=== PATIENT | male | born 1985 | race Caucasian/White ===

== ENCOUNTER 2017-01-09 12:35 | Inpatient (IN) | payer BC ==
[~2017-01-09] VITALS: Ht 180.3 cm; Wt 132.5 kg
--- NOTE | 2017-01-09 14:46 | ERA ---
ER Documentation Chief Complaint Date/Time DATE: 01/09/17 TIME: 14:46 Chief Complaint Abdominal pain HPI The patient is a 31-year-old male, presenting to the ER because of cough, abdominal pain, vomiting, diarrhea, fever intermittently for the last 2 weeks. Temperature at home was 103 prior to arrival. He denies hematemesis, hematochezia, complains of dysuria for 1 week, denies diarrhea, constipation. 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 Medications Home Meds Reported Medications Prednisone* (Prednisone*) 2.5 Mg Tablet, 2.5 MG PO DAILY, TAB 01/09/17 Metoprolol Succinate* (Toprol XL*) 50 Mg Tab.er.24h, 50 MG PO DAILY, #30 TAB 01/09/17 Metoprolol Succinate* (Toprol XL*) 25 Mg Tab.sr.24h, 25 MG PO QHS, #30 TAB 01/09/17 Sulfamethoxazole/Trimethoprim* (Bactrim Ds* Tablet) 1 Each Tablet, 1 TAB PO DAILY, TAB 01/09/17 Acyclovir* (Acyclovir*) 400 Mg Tablet, 400 MG PO BID, TAB 01/09/17 Hydrocodone/Acetaminophen ([place] 10-325 Tablet) 1 Each Tablet, 1 EACH PO Q6H, TAB 01/09/17 Allergies Allergies: Coded Allergies: No Known Allergy (Unverified , 01/09/17) Physical Exam Vitals Vital Signs Date Time Temp Pulse Resp B/P Pulse Ox O2 Delivery O2 Flow Rate FiO2 01/09/17 19:50 100 126/71 98 Room Air 01/09/17 18:04 108 20 118/67 98 Nasal Cannula 2.0 01/09/17 17:00 112 20 129/78 98 Nasal Cannula 2.0 01/09/17 15:50 Nasal Cannula 2 01/09/17 12:38 97.6 121 22 133/82 94 Physical Exam Const: No acute distress. Head: Atraumatic. Eyes: Normal Conjunctiva. ENT: Normal External Ears, Nose and Mouth. Neck: Full range of motion. No meningismus. Resp: Clear to auscultation bilaterally. Cardio: Regular tachycardic Abd: Soft, non distended, normal bowel sounds, moderate and vague diffuse abdominal tenderness, no rigidity, rebound, CVA tenderness Skin: No petechiae or rashes. Back: No midline or flank tenderness. Large wound at the left buttock Ext: No cyanosis, or edema. Neur: Awake and alert. No focal deficit Psych: Normal Mood and Affect. Result Diagram: 01/09/17 1515 01/09/17 1515 Results 24 hrs Laboratory Tests Test 01/09/17 15:15 01/09/17 17:20 01/09/17 17:48 01/09/17 19:30 White Blood Count 4.110^3/ul Red Blood Count 5.1210^6/ul Hemoglobin 14.6g/dl Hematocrit 42.4% Mean Corpuscular Volume 82.8fl Mean Corpuscular Hemoglobin 28.5pg Mean Corpuscular Hemoglobin Concent 34.4g/dl Red Cell Distribution Width 15.8% Platelet Count 71955^3/UL Mean Platelet Volume 11.2fl Neutrophils % 82.3% Lymphocytes % 2.2% Monocytes % 13.3% Eosinophils % 0.5% Basophils % 0.2% Nucleated Red Blood Cells % 0.0/100WBC Neutrophils # 3.310^3/ul Lymphocytes # 0.110^3/ul Monocytes # 0.510^3/ul Eosinophils # 0.010^3/ul Basophils # 0.010^3/ul Nucleated Red Blood Cells # 0.010^3/ul Prothrombin Time 19.4Sec Prothrombin Time Ratio 1.5 INR International Normalized Ratio 1.62 Activated Partial Thromboplast Time 45.6Sec Sodium Level 124mmol/L Potassium Level 3.1mmol/L Chloride Level 81mmol/L Carbon Dioxide Level 26mmol/L Anion Gap 20 Blood Urea Nitrogen 24mg/dl Creatinine 1.26mg/dl Glucose Level 105mg/dl Lactic Acid Level 4.6mmol/L 3.6mmol/L 2.8mmol/L Calcium Level 8.0mg/dl Total Bilirubin 1.1mg/dl Direct Bilirubin 0.00mg/dl Indirect Bilirubin 1.1mg/dl Aspartate Amino Transf (AST/SGOT) 92IU/L Alanine Aminotransferase (ALT/SGPT) 39IU/L Alkaline Phosphatase 191IU/L Troponin I < 0.012ng/ml Total Protein 6.5g/dl Albumin 3.1g/dl Globulin 3.40g/dl Albumin/Globulin Ratio 0.91 Urine Color OMAR Urine Clarity SLIGHTLY CLOUDY Urine pH 5.0 Urine Specific [place] 1.024 Urine Ketones TRACEmg/dL Urine Nitrite NEGATIVEmg/dL Urine Bilirubin NEGATIVEmg/dL Urine Urobilinogen 1+mg/dL Urine Leukocyte Esterase NEGATIVELeu/ul Urine Microscopic RBC 1/HPF Urine Microscopic WBC 8/HPF Urine Squamous Epithelial Cells FEW/HPF Urine Mucus FEW/HPF Urine Hemoglobin NEGATIVEmg/dL Urine Glucose NEGATIVEmg/dL Urine Total Protein 1+mg/dl Current Medications Medications (Trade) Dose Ordered Sig/Kayden Route PRN Reason Start Time Stop Time Status Last Admin Dose Admin Sodium Chloride (NS) 3,940 ml BOLUS OVER 2 HOURS STAT IV* 01/09/17 14:55 01/09/17 14:58 DC 01/09/17 15:26 Morphine Sulfate (morphine) 4 mg ONCE STAT IV 01/09/17 14:55 01/09/17 14:58 DC 01/09/17 15:32 Ondansetron HCl 4 mg 4 mg ONCE STAT IV 01/09/17 14:55 01/09/17 14:58 DC 01/09/17 15:32 Vancomycin HCl 250 ml @ 125 mls/hr ONCE IVPB 01/09/17 17:00 01/09/17 18:59 DC 01/09/17 16:55 Piperacillin Sod/ Tazobactam Sod 50 ml @ 100 mls/hr ONCE ONCE IVPB 01/09/17 17:00 01/09/17 17:29 DC 01/09/17 18:50 Potassium Chloride/Sodium Chloride (KCl/NS) 110 ml @ 55 mls/hr ONCE ONCE IVPB 01/09/17 17:00 01/09/17 18:59 DC 01/09/17 19:55 Lidocaine (Xylocaine 1% (Mpf)) 5 ml ONCE ONCE SC 01/09/17 17:00 01/09/17 17:01 DC Ondansetron HCl (Zofran Inj) 4 mg ONCE STAT IV 01/09/17 17:01 01/09/17 17:02 DC 01/09/17 17:15 Hydromorphone HCl (Dilaudid) 1 mg ONCE STAT IV 01/09/17 17:01 01/09/17 17:02 DC 01/09/17 17:15 IV Flush (NS 3 ml) 3 ml PER PROTOCOL IV 01/09/17 19:30 Ondansetron HCl (Zofran Inj) 4 mg Q6H PRN IV NAUSEA AND/OR VOMITING 01/09/17 19:30 Acetaminophen (Tylenol Tab) 650 mg Q6H PRN PO PAIN LEVEL 1-3 OR FEVER 01/09/17 19:30 Acetaminophen/ Hydrocodone Bitart ([place] (5/325)) 1 tab Q6H PRN PO MODERATE PAIN LEVEL 4-6 01/09/17 19:30 Morphine Sulfate (morphine) 2 mg Q4H PRN IV SEVERE PAIN LEVEL 7-10 01/09/17 19:30 01/09/17 19:54 Docusate Sodium (Colace) 100 mg Q12H PRN PO CONSTIPATION 01/09/17 19:30 Magnesium Hydroxide (Milk Of Mag) 30 ml DAILY PRN PO CONSTIPATION 01/09/17 19:30 Sodium Biphosphate/ Sodium Phosphate (Fleet Enema) 133 ml DAILY PRN [place] CONSTIPATION 01/09/17 19:30 Pantoprazole (Protonix Tab) 40 mg DAILY@06 PO 01/10/17 06:00 Heparin Sodium (Porcine) (Heparin (5000 Units/0.5 ml)) 5,000 unit Q12 SC 01/09/17 21:00 Lorazepam 0.5 mg 0.5 mg Q6H PRN IV ANXIETY 01/09/17 19:30 Sodium Chloride (NS) 1,000 ml @ 100 mls/hr Q10H IV 01/09/17 19:18 Albuterol/ Ipratropium 3 ml 3 ml Q4H RESP THERAPY PRN HHN SHORTNESS OF BREATH 01/09/17 19:30 Piperacillin Sod/ Tazobactam Sod (Zosyn 3.375gm/ 100 ml (Pmx)) 100 ml @ 200 mls/hr Q6 IVPB 01/10/17 00:00 Vancomycin HCl (Vanco Iv Per Pharmacy) VANCOMYCIN PER PHARMACY NOTE XX 01/09/17 19:30 UNV Nitroglycerin (Nitroglycerin (Sl Tab) 0.4 Mg) 1 tab Q5M PRN SL ANGINA 01/09/17 19:30 Acyclovir (Zovirax) 400 mg BID PO 01/09/17 21:00 UNV Metoprolol Succinate (Toprol Xl) 25 mg QHS PO 01/09/17 21:00 Prednisone (Prednisone) 2.5 mg DAILY PO 01/10/17 09:00 UNV Trimethoprim/ Sulfamethoxazole (Bactrim (Ds)) 1 tab DAILY PO 01/10/17 09:00 Procedures/MDM [place] [address] Radiology Main Line: [phone] DIAGNOSTIC IMAGING REPORT Patient: SONYA SHAH : 1985 Age: 31 Sex: M MR #: [id number] DOS: 01/09/17 1455 Ordering MD: SANDY KAMINSKI MD Location: E/R Room/Bed: PROCEDURE: XR Chest. CLINICAL INDICATION: Dizziness. TECHNIQUE: Single frontal chest x-ray. COMPARISON: None. FINDINGS: There are patchy opacities or consolidations in the right lung. There is elevation of the right hemidiaphragm. . The left lung is clear.. Cardiac silhouette is magnified.. The osseous structures are intact. IMPRESSION: Patchy opacities or consolidations of the right lung. Elevated right hemidiaphragm.. RPTAT: GG .Rudolph Asif MD, MD Date Time Electronically viewed and signed by .Rudolph Asif MD, MD on 01/09/2017 16:23 .L/ CC: SANDY KAMINSKI MD [place] [address] Radiology Main Line: [phone] DIAGNOSTIC IMAGING REPORT Patient: SONYA SHAH : 1985 Age: 31 Sex: M MR #: [id number] DOS: 01/09/17 1642 Ordering MD: SANDY KAMINSKI MD Location: E/R Room/Bed: PROCEDURE: CT abdomen and pelvis without intravenous contrast. CLINICAL INDICATION: Abdominal pain. TECHNIQUE: CT of the abdomen/pelvis was performed utilizing axial images with reconstructions in sagittal and coronal planes. The administered radiation dose is CTDI 23.67 mGy, DLP 1464.32 mGy-cm. COMPARISON: There are no similar studies submitted for comparison. FINDINGS: Lung bases: There are multiple small consolidations within the right lower lobe. Underlying nodules are not excluded. The heart is normal size without pericardial effusion. CT ABDOMEN: Evaluation of the abdominal viscera is limited without intravenous contrast. Gastrointestinal tract: There is no bowel obstruction. The appendix is not visualized but there are no right lower quadrant, toward changes. There are mild colonic diverticula without acute diverticulitis. No abnormal colonic wall thickening is identified.There is no pneumoperitoneum. Liver: The liver is normal in size.There is no intrahepatic ductal dilatation. Gallbladder: The gallbladder is grossly unremarkable. Pancreas: The pancreas is grossly unremarkable. Spleen: The spleen is normal in size. Kidneys: The kidneys are normal in size and contour.No renal calculi identified.There is no evidence of hydronephrosis. Adrenal glands: The bilateral adrenal glands are unremarkable. Retroperitoneum: There is no retroperitoneal adenopathy.The aorta is normal in caliber. CT PELVIS: Pelvic organs: The prostate is normal in size. Bladder: The bladder is unremarkable. There is no pelvic free fluid.No pelvic adenopathy is identified. There are small bilateral fat containing inguinal hernias. Osseous structures: No destructive lytic or blastic osseous lesion is identified. There is mild retrolisthesis of 5 S1. There is a subcutaneous density within the anterior bowel wall which may represent a subcutaneous hematoma (image 9 series 3). There are also more extensive subcutaneous densities along the left hip flank soft tissues as well as the back subcutaneous soft tissues / skin. There is also an erosion of 1 of these lesions within the left anterior abdominal wall (image 27 series 3). . IMPRESSION: Evaluation of the abdominal viscera is limited without intravenous contrast. 1. No acute abdominal pathology. 2. Multiple small consolidations within the right lower lobe. Underlying nodules are not excluded. Dedicated CT of the chest as well as follow-up imaging is recommended to document resolution as clinically warranted. 3. Subcutaneous density within the anterior abdominal wall which may represent a subcutaneous hematoma versus other subcutaneous lesion. There are also more extensive subcutaneous densities along the left flank and back subcutaneous/ skin. Direct inspection may be performed as clinically warranted. Further findings as detailed above. RPTAT: PP .Krishna Hodgson MD, Date Time Electronically viewed and signed by .Krishna Hodgson MD, MD on 01/09/2017 18:11 .F/ CC: SANDY KAMINSKI MD EKG: Read by emergency physician Rate/Rhythm: Sinus tachycardia 113 beats/min QRS, ST, T-waves: No ST elevation, no T inversion Impression: Abnormal EKG MEDICAL MAKING DECISION: The patient is a 31-year-old male, presenting with acute septic shock, acute pneumonia, acute hypokalemia, acute hyponatremia. He was treated with normal saline 30 mL/kg IV, vancomycin IV, Zosyn IV for acute septic shock, potassium chloride 20 mg IV for acute hypokalemia, morphine 4 mg IV and Dilaudid 1 mg IV for pain and Zofran formula IV 2 for nausea with good response Admit MDM: Patient's infectious symptoms have not stabilized and the patient is at risk of rapid decompensation. The patient will be admitted for careful hydration, antibiotic therapy, and infectious source control. Severe Sepsis criteria: Infectious source: Pneumonia End organ damage indicated by: Lactate > 2.0 mmol/L Hypotension (SBP < 90 or >40 mmHG drop or MAP < 65) Acute Resp Failure (sat < 92% w/o oxygen) Professional Services Specialist > 2.0 Sepsis Management: Time of recognition of severe sepsis/septic shock:16:00 Within 3 hours of recognition: Blood cultures x 2 before broad-spectrum antibiotics: Yes 30 ml/kg NS bolus completed Initial lactate 4.6 Repeat lactate pending Critical Care: Critical care time 35 minutes excluding billable procedure Emergent fluid management while maintaining close respiratory support. Provision of immediate and broad-spectrum antibiotic therapy. Simultaneous assessment for possible sources in order to direct targeted therapy. Consideration for invasive and chemical support to prevent cardiopulmonary collapse. Septic Shock Assessment: Any lactic acid > 4.0 no Persistent hypotension (SBP < 90 or 40 mmHg drop, MAP < 65) despite 30 mL/kg IV fluid bolusno The differential diagnoses considered include but are not limited to pneumonia, empyema, UTI, pyelonephritis, lymphoma, infected decubitus ulcer Departure Diagnosis: Primary Impression: Septic shock Additional Impressions: Pneumonia Hypokalemia Hyponatremia Leukopenia Abnormal LFTs Condition: Stable Comments Consultation: I discussed the patient with the on-call physician Dr Romo for her IPA 6:20 PM who authorized the admission I discussed the findings with the patient. I discussed the patient with the on- call hospitalist Dr. Ocasio at 7 PM who was made aware of the lab, the treatment, the patient condition. The patient is admitted to telemetry SANDY KAMINSKI MD Jan 09, 2017 14:46
[2017-01-09] MEDS ORDERED: SODIUM CHLORIDE 0.9% 1L BAG IV* STA (14:55)
[2017-01-09] MEDS ORDERED: morphine 4 MG/ML VIAL IV STA (14:55)
[2017-01-09] MEDS ORDERED: ONDANSETRON 4 MG INJ IV STA ×2 (14:55→17:01)
[2017-01-09] MEDS ORDERED: HYDR-902 PO (15:20)
[2017-01-09] MEDS ORDERED: ACYC400T2 PO (15:22)
[2017-01-09] MEDS ORDERED: SULF1TAB31 PO (15:24)
[2017-01-09] MEDS ORDERED: METO50TA16 PO (15:25)
[2017-01-09] MEDS ORDERED: METO25TA7 PO (15:25)
[2017-01-09] MEDS ORDERED: PRED2.5T3 PO (15:50)
[2017-01-09 16:06] LABS: ABNORMAL IP MESSAGE 1; BASOPHILS % 0.2 % (0.0-2.0); EOSINOPHILS % 0.5 % (0.0-7.0); HEMATOCRIT 42.4 % (42.0-52.0); HEMOGLOBIN 14.6 g/dl (14.0-18.0); LYMPHOCYTES # 0.1 10^3/ul (0.8-2.9); LYMPHOCYTES % 2.2 % (15.0-51.0); MEAN CORPUSCULAR HEMOGLOBIN 28.5 pg (29.0-33.0); MEAN CORPUSCULAR HGB CONC 34.4 g/dl (32.0-37.0); MEAN CORPUSCULAR VOLUME 82.8 fl (82.0-101.0); MEAN PLATELET VOLUME 11.2 fl (7.4-10.4); MONOCYTE # 0.5 10^3/ul (0.3-0.9); MONOCYTES % 13.3 % (0.0-11.0); NEUTROPHIL # 3.3 10^3/ul (1.6-7.5); NEUTROPHILS % 82.3 % (39.0-77.0); PLATELET COUNT 155 10^3/UL (140-415); POSITIVE DIFF @See below; RED BLOOD COUNT 5.12 10^6/ul (4.70-6.10); RED CELL DISTRIBUTION WIDTH 15.8 % (11.5-14.5); WHITE BLOOD COUNT 4.1 10^3/ul (4.8-10.8)
[2017-01-09 16:23] LABS: INR 1.62; PROTIME 19.4 Sec (12.2-14.2); PT RATIO 1.5
--- NOTE | 2017-01-09 16:24 | RADRPT ---
PROCEDURE: XR Chest. CLINICAL INDICATION: Dizziness. TECHNIQUE: Single frontal chest x-ray. COMPARISON: None. FINDINGS: There are patchy opacities or consolidations in the right lung. There is elevation of the right hem idiaphragm. . The left lung is clear.. Cardiac silhouette is magnified.. The osseous structures ar e intact. IMPRESSION: Patchy opacities or consolidations of the right lung. Elevated right hemidiaphragm.. RPTAT: GG .Rudolph Asif MD, Date Time Electronically viewed and signed by .Rudolph Asif MD, MD on 01/09/2017 16:23 .L/
[2017-01-09 16:25] LABS: PARTIAL THROMBOPLASTIN TIME 45.6 Sec (25.0-35.0)
[2017-01-09 16:29] LABS: ALANINE AMINOTRANSFERASE 39 IU/L (13-69); ALBUMIN 3.1 g/dl (3.3-4.9); ALBUMIN/GLOBULIN RATIO 0.91; ALKALINE PHOSPHATASE 191 IU/L (42-121); ANION GAP 20 (8-16); ASPARTATE AMINO TRANSFERASE 92 IU/L (15-46); BILIRUBIN,INDIRECT 1.1 mg/dl (0-1.1); BILIRUBIN,TOTAL 1.1 mg/dl (0.2-1.3); BLOOD UREA NITROGEN 24 mg/dl (7-20); CARBON DIOXIDE 26 mmol/L (21-31); CHLORIDE 81 mmol/L (97-110); CREATININE 1.26 mg/dl (0.61-1.24); GLUCOSE 105 mg/dl (70-220); POTASSIUM 3.1 mmol/L (3.5-5.1); SODIUM 124 mmol/L (135-144); TOTAL PROTEIN 6.5 g/dl (6.1-8.1)
[2017-01-09 16:42] LABS: TROPONIN-I < 0.012 ng/ml (0.00-0.12)
[2017-01-09] MEDS ORDERED: VANCOMYCIN 1 GM (PMX) 250 ML IVPB SCH (17:00)
[2017-01-09] MEDS ORDERED: PIPER-TAZO 2.25 GM (PMX) 50 ML IVPB ONE (17:00)
[2017-01-09] MEDS ORDERED: POTASSIUM CHLORIDE 20 MEQ in SOD CHLORIDE 0.9% 100 ML IVPB ONE (17:00)
[2017-01-09] MEDS ORDERED: LIDOCAINE 1% (MPF) 5 ML VIAL SC ONE (17:00)
[2017-01-09] MEDS ORDERED: HYDROmorphONE 1 MG/ML SYG IV STA (17:01)
--- NOTE | 2017-01-09 18:11 | RADRPT ---
PROCEDURE: CT abdomen and pelvis without intravenous contrast. CLINICAL INDICATION: Abdominal pain. TECHNIQUE: CT of the abdomen/pelvis was performed utilizing axial images with reconstructions in s agittal and coronal planes. The administered radiation dose is CTDI 23.67 mGy, DLP 1464.32 mGy-cm. COMPARISON: There are no similar studies submitted for comparison. FINDINGS: Lung bases: There are multiple small consolidations within the right lower lobe. Underlying nodules are not excluded. The heart is normal size without pericardial effusion. CT ABDOMEN: Evaluation of the abdominal viscera is limited without intravenous contrast. Gastrointestinal tract: There is no bowel obstruction. The appendix is not visualized but there are no right lower quadrant, toward changes. There are mild colonic diverticula without acute diverticu litis. No abnormal colonic wall thickening is identified.There is no pneumoperitoneum. Liver: The liver is normal in size.There is no intrahepatic ductal dilatation. Gallbladder: The gallbladder is grossly unremarkable. Pancreas: The pancreas is grossly unremarkable. Spleen: The spleen is normal in size. Kidneys: The kidneys are normal in size and contour.No renal calculi identified.There is no evidence of hydronephrosis. Adrenal glands: The bilateral adrenal glands are unremarkable. Retroperitoneum: There is no retroperitoneal adenopathy.The aorta is normal in caliber. CT PELVIS: Pelvic organs: The prostate is normal in size. Bladder: The bladder is unremarkable. There is no pelvic free fluid.No pelvic adenopathy is identified. There are small bilateral fat cont aining inguinal hernias. Osseous structures: No destructive lytic or blastic osseous lesion is identified. There is mild retr olisthesis of 5 S1. There is a subcutaneous density within the anterior bowel wall which may represent a subcutaneous he matoma (image 9 series 3). There are also more extensive subcutaneous densities along the left hip f lank soft tissues as well as the back subcutaneous soft tissues / skin. There is also an erosion of 1 of these lesions within the left anterior abdominal wall (image 27 series 3). . IMPRESSION: Evaluation of the abdominal viscera is limited without intravenous contrast. 1. No acute abdominal pathology. 2. Multiple small consolidations within the right lower lobe. Underlying nodules are not excluded. Dedicated CT of the chest as well as follow-up imaging is recommended to document resolution as cli nically warranted. 3. Subcutaneous density within the anterior abdominal wall which may represent a subcutaneous hemat zainab versus other subcutaneous lesion. There are also more extensive subcutaneous densities along th e left flank and back subcutaneous/skin. Direct inspection may be performed as clinically warranted . Further findings as detailed above. RPTAT: PP .Krishna Hodgson MD, Date Time Electronically viewed and signed by .Krishna Hodgson MD, on 01/09/2017 18:11 .F/
[2017-01-09 18:46] LABS: ADD UMIC YES; UR ASCORBIC ACID NEGATIVE (NEGATIVE); UR BILIRUBIN (Dip) NEGATIVE (NEGATIVE); UR BLOOD (Dip) NEGATIVE (NEGATIVE); UR CLARITY SLIGHTLY CLOUDY (CLEAR); UR COLOR AMBER (YELLOW); UR GLUCOSE (Dip) NEGATIVE (NEGATIVE); UR KETONES (Dip) TRACE mg/dL (NEGATIVE); UR LEUKOCYTE ESTERASE (Dip) NEGATIVE Leu/ul (NEGATIVE); UR MUCUS FEW /HPF (NONE SEEN); UR NITRITE (Dip) NEGATIVE (NEGATIVE); UR RBC 1 /HPF (0-5); UR SPECIFIC GRAVITY (Dip) 1.024 (1.003-1.030); UR SQUAMOUS EPITHELIAL CELL FEW /HPF (FEW); UR TOTAL PROTEIN (Dip) 1+ mg/dl (NEGATIVE); UR UROBILINOGEN (Dip) 1+ mg/dL (NEGATIVE)
[2017-01-09] MEDS ORDERED: VANCOMYCIN IV PER PHARMACY XX SCH (19:30)
[2017-01-09] MEDS ORDERED: NACL 0.9% 3 ML SYG IV SCH (19:30)
[2017-01-09] MEDS ORDERED: LORAZEPAM 2 MG INJ IV PRN (19:30)
[2017-01-09] MEDS ORDERED: HYDROCODONE/APAP (5/325) TAB PO PRN (19:30)
[2017-01-09] MEDS ORDERED: NITROGLYCERIN (SL) 0.4 MG TAB SL PRN (19:30)
[2017-01-09] MEDS ORDERED: NA PHOSPHATE/BIPHOS 133 ML ENEMA PR PRN (19:30)
[2017-01-09] MEDS: morphine 4 MG/ML VIAL IV PRN ×3 (19:54→23:47)
[2017-01-09] MEDS: ONDANSETRON 4 MG INJ IV PRN ×2 (21:54→23:45)
[2017-01-09 22:00] VITALS: TEMP 99.7
[2017-01-09 22:30] LABS: INR 1.87; PARTIAL THROMBOPLASTIN TIME 51.2 Sec (25.0-35.0); PROTIME 21.7 Sec (12.2-14.2); PT RATIO 1.7
[2017-01-09 23:10] VITALS: PULSE 120
[2017-01-09 23:30] VITALS: Ht 180.3 cm; Wt 132.5 kg
[2017-01-09] MEDS: ACETAMINOPHEN 325 MG TAB PO PRN (23:46)
[2017-01-10] VITALS (11 sets, daily range): BP systolic 110–144; BP diastolic 55–74; PULSE 106–124; RESP 16–20
[2017-01-10] MEDS: SOD CHLORIDE 0.9% 1,000 ML IV SCH ×2 (00:45→05:18)
[2017-01-10] MEDS: ACYCLOVIR 400 MG TAB PO SCH ×4 (00:46→21:00)
[2017-01-10] MEDS: METOPROLOL (XL) 25 MG TAB PO SCH ×2 (00:46→21:00)
[2017-01-10] MEDS: HEPARIN 5,000 UNIT/0.5 ML VIAL SC SCH ×3 (00:59→21:00)
[2017-01-10] MEDS: PIPER-TAZO 3.375 GM IV (PMX) 100 ML IVPB SCH ×4 (01:00→20:51)
[2017-01-10] MEDS: morphine 4 MG/ML VIAL IV PRN ×3 (02:02→11:03)
[2017-01-10] MEDS ORDERED: PENDING SANTYL ORDER FOR WOUND CARE XX PRN (03:30)
[2017-01-10] MEDS: METOCLOPRAMIDE 10 MG INJ IV PRN ×2 (04:10→11:02)
[2017-01-10] MEDS ORDERED: VANCOMYCIN 2 GM in SOD CHLORIDE 0.9% 500 ML IVPB SCH (05:00)
[2017-01-10] MEDS: PANTOPRAZOLE (EC) 40 MG TAB PO SCH (06:08)
[2017-01-10] MEDS: ACETAMINOPHEN 325 MG TAB PO PRN (06:12)
[2017-01-10 06:25] LABS: ABNORMAL IP MESSAGE 1; BASOPHILS % 0.4 % (0.0-2.0); HEMATOCRIT 31.5 % (42.0-52.0); HEMOGLOBIN 10.9 g/dl (14.0-18.0); LYMPHOCYTES # 0.1 10^3/ul (0.8-2.9); LYMPHOCYTES % 2.8 % (15.0-51.0); MEAN CORPUSCULAR HEMOGLOBIN 28.5 pg (29.0-33.0); MEAN CORPUSCULAR HGB CONC 34.6 g/dl (32.0-37.0); MEAN CORPUSCULAR VOLUME 82.2 fl (82.0-101.0); MEAN PLATELET VOLUME 11.1 fl (7.4-10.4); MONOCYTE # 0.4 10^3/ul (0.3-0.9); MONOCYTES % 14.5 % (0.0-11.0); NEUTROPHIL # 2.3 10^3/ul (1.6-7.5); NEUTROPHILS % 80.9 % (39.0-77.0); PLATELET COUNT 159 10^3/UL (140-415); POSITIVE DIFF @See below; RED BLOOD COUNT 3.83 10^6/ul (4.70-6.10); WHITE BLOOD COUNT 2.8 10^3/ul (4.8-10.8)
[2017-01-10 07:08] LABS: CHOL/HDL RATIO 5.2 RATIO; CHOLESTEROL 68 mg/dl (100-200); HDL CHOLESTEROL 13 mg/dl (28-63); TRIGLYCERIDES 313 mg/dl (0-149)
[2017-01-10 07:08] LABS: CREATININE 0.8 mg/dl (0.61-1.24); MAGNESIUM 1.9 mg/dl (1.7-2.5); PHOSPHORUS 1.9 mg/dl (2.5-4.9); POTASSIUM 3.2 mmol/L (3.5-5.1)
[2017-01-10] MEDS ORDERED: ONDANSETRON 4 MG INJ IV PRN ×2 (07:30)
[2017-01-10 07:33] LABS: THYROID STIMULATING HORMONE 0.674 MIU/L (0.465-4.680)
[2017-01-10] MEDS: HYDROmorphONE 1 MG/ML SYG IV PRN ×2 (08:05→12:47)
[2017-01-10] MEDS: predniSONE 2.5 MG TAB PO SCH ×2 (09:00→09:15)
--- NOTE | 2017-01-10 09:09 | HP ---
Date/Time of Note Date/Time of Note DATE: 01/10/17 TIME: 08:58 Assessment/Plan VTE Prophylaxis VTE Prophylaxis Intervention: SCD's Lines/Catheters IV Catheter Type (from Nrs): Peripheral IV Urinary Cath still in place: No Assessment/Plan Assessment/Plan 1. Sepsis 2/2 PNA - abx, IVF - f/u culture results 2. Abd Pain with N/V: 2/2 known lymphoma - pain mgmt - Anti-emetics - oncology consult 3. Hyponatremia and Hypokalemia: 2/2 vomiting - NS IVF - replete K+ as needed 4. Presumed RAMU: likely pre-renal 2/2 vomiting - cont IVF for now 5. 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 He said he was dx'd with lymphoma a year and half ago, but said unfortunately it turned into an aggressive type. His last chemo was a month ago and hadn't had since due to experiencing similar presenting symptoms. He has several nodules in different part of his body, which are necrosing, worse on his buttocks and to some extent on left forearm. Name of his Oncologist is Kain Wisdom. In ER, CXR showed Patchy opacities or consolidations of the right lung. CT abd/pelvis showed the followin. No acute abdominal pathology. 2. Multiple small consolidations within the right lower lobe. Underlying nodules are not excluded. Dedicated CT of the chest as well as follow-up imaging is recommended to document resolution as clinically warranted. 3. Subcutaneous density within the anterior abdominal wall which may represent a subcutaneous hematoma versus other subcutaneous lesion. There are also more extensive subcutaneous densities along the left flank and back subcutaneous/skin. Direct inspection may be performed as clinically warranted. PMH/Family/Social Past Medical History lymphoma Social History Smoking Status: Never smoker Exam/Review of Systems Vital Signs Vitals Vital Signs Date Time Temp Pulse Resp B/P Pulse Ox O2 Delivery O2 Flow Rate FiO2 01/10/17 07:34 99.7 109 20 132/65 98 01/10/17 03:17 28 01/10/17 03:15 2.0 01/09/17 23:30 Nasal Cannula Intake and Output 01/09/17 01/09/17 01/10/17 15:00 23:00 07:00 Output Total 500 ml Balance -500 ml Exam Constitutional: distress, other (vomiting) Head: atraumatic, normocephalic Eyes: PERRL Respiratory: diminished breath sounds Cardiovascular: other (tachycardic with regular rhythm) Gastrointestinal: soft, tender Extremities: normal pulses Skin: other (there are several nodules in different part of his body, some necrosing (worst on his buttocks) and also left forearm) Labs Result Diagram: 01/10/1760001/10/17 0601 Medications Medications Current Medications Acetaminophen (Tylenol Tab) 650 mg Q6H PRN PO PAIN LEVEL 1-3 OR FEVER Last administered on 01/10/17 06:12; Admin Dose 650 MG; Start 01/09/17 at 19:30 Acetaminophen/ Hydrocodone Bitart ([place] (5/325)) 1 tab Q6H PRN PO MODERATE PAIN LEVEL 4-6; Start 01/09/17 at 19:30 Morphine Sulfate (morphine) 2 mg Q4H PRN IV SEVERE PAIN LEVEL 7-10 Last administered on 01/10/17 04:23; Admin Dose 2 MG; Start 01/09/17 at 19:30 Docusate Sodium (Colace) 100 mg Q12H PRN PO CONSTIPATION; Start 01/09/17 at 19: 30 Magnesium Hydroxide (Milk Of Mag) 30 ml DAILY PRN PO CONSTIPATION; Start at 19:30 Sodium Biphosphate/ Sodium Phosphate (Fleet Enema) 133 ml DAILY PRN [place] CONSTIPATION; Start 01/09/17 at 19:30 Pantoprazole (Protonix Tab) 40 mg DAILY@06 PO Last administered on 01/10/17 06: 08; Admin Dose 40 MG; Start 01/10/17 at 06:00 Heparin Sodium (Porcine) (Heparin (5000 Units/0.5 ml)) 5,000 unit Q12 SC Last administered on 01/10/17 00:59; Admin Dose 5,000 UNIT; Start 01/09/17 at 21:00 Lorazepam 0.5 mg 0.5 mg Q6H PRN IV ANXIETY; Start 01/09/17 at 19:30 Sodium Chloride 1,000 ml @ 100 mls/hr Q10H IV Last administered on 01/10/17 00 :45; Admin Dose 100 MLS/HR; Start 01/09/17 at 19:18 Piperacillin Sod/ Tazobactam Sod (Zosyn 3.375gm/ 100 ml (Pmx)) 100 ml @ 200 mls /hr Q6 IVPB Last administered on 01/10/17 06:08; Admin Dose 200 MLS/HR; Start 01/10/17 at 00:00 Vancomycin HCl (Vanco Iv Per Pharmacy) VANCOMYCIN PER PHARMACY NOTE XX ; Start 01/09/17 at 19:30 Nitroglycerin (Nitroglycerin (Sl Tab) 0.4 Mg) 1 tab Q5M PRN SL ANGINA; Start at 19:30 Acyclovir (Zovirax) 400 mg BID PO ; Start 01/09/17 at 21:00 Metoprolol Succinate (Toprol Xl) 25 mg QHS PO ; Start 01/09/17 at 21:00 Prednisone (Prednisone) 2.5 mg DAILY PO ; Start 01/10/17 at 09:00 Trimethoprim/ Sulfamethoxazole (Bactrim (Ds)) 1 tab DAILY PO ; Start 01/10/17 at 09:00 Morphine Sulfate 4 mg 4 mg Q3H PRN IV PAIN LEVEL 8-10 Last administered on 02:02; Admin Dose 4 MG; Start 01/09/17 at 22:00 Vancomycin HCl/ Sodium Chloride (Vancocin/NS) 500 ml @ 125 mls/hr Q24H IVPB Last administered on 01/10/17 04:10; Admin Dose 125 MLS/HR; Start 01/10/17 at 05: 00 Miscellaneous Information (Pending Santyl Order For Wound Care) This patient aranda... PRN PRN XX WOUND CARE; Start 01/10/17 at 03:30 Metoclopramide HCl (Reglan) 10 mg Q6H PRN IV NAUSEA AND/OR VOMITING Last administered on 01/10/17 04:10; Admin Dose 10 MG; Start 01/10/17 at 04:30 Ondansetron HCl (Zofran Inj) 4 mg Q6H PRN IV NAUSEA AND/OR VOMITING; Start 01/10 at 07:30 Hydromorphone HCl (Dilaudid) 1 mg Q4H PRN IV PAIN Last administered on t 08:05; Admin Dose 1 MG; Start 01/10/17 at 08:00 SONYA CANALES MD Jan 10, 2017 09:08
[2017-01-10] MEDS: TRIMETHOPRIM/SULFAMETHOX (DS) TAB PO SCH (09:15)
[2017-01-10] MEDS ORDERED: POTASSIUM CHLORIDE 30 MEQ in SOD CHLORIDE 0.9% 150 ML IVPB ONE (10:15)
--- NOTE | 2017-01-10 10:48 | CONS ---
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 His last chemo was a month ago and hadn't had since due to experiencing similar presenting symptoms. i will request the record from pt's oncologist Kain Wisdom and I w ill try to get in touch with him re details of pt's treatment LEUKOPENIA IN PT WITH HNL ON CHEMO AND WITH SEPTIC PICTURE MONITOR BLOOD COUNT CLOSELY SUPPORT WITH NEUPOGEN Sepsis 2/2 PNA - abx, IVF - f/u culture results - ID Abd Pain with N/V: 2/2 known lymphoma - pain mgmt - Anti-emetics Hyponatremia and Hypokalemia: 2/2 vomiting - NS IVF - replete K+ as needed Presumed RAMU: likely pre-renal 2/2 vomiting - cont IVF for now Problems: Consultation Date/Type/Reason Admit Date/Time Jan 09, 2017 at 19:08 Date of Consultation: Jan 10, 2017 Type of Consultation: HEMEON Reason for Consultation NHL Referring Provider: YAO RAHMAN Hx of Present Illness The patient is a 31-year-old male, presenting to the ER because of cough, abdominal pain, vomiting, diarrhea, fever intermittently for the last 2 weeks. Temperature at home was 103 prior to arrival. He denies hematemesis, hematochezia, complains of dysuria for 1 week, denies diarrhea, constipation. He denies smoking or drinking PT HAS a hx of Anaplastic Large B-cell lymphoma, he was dx'd with lymphoma a year and half ago, but said unfortunately it turned into an aggressive type. His last chemo was a month ago and hadn't had since due to experiencing similar presenting symptoms. He has several nodules in different part of his body, which are necrosing, worse on his buttocks and to some extent on left forearm. Name of his Oncologist is Kain Wisdom. In ER, CXR showed Patchy opacities or consolidations of the right lung. CT abd/pelvis showed the followin. No acute abdominal pathology. 2. Multiple small consolidations within the right lower lobe. Underlying nodules are not excluded. Dedicated CT of the chest as well as follow-up imaging is recommended to document resolution as clinically warranted. 3. Subcutaneous density within the anterior abdominal wall which may represent a subcutaneous hematoma versus other subcutaneous lesion. There are also more extensive subcutaneous densities along the left flank and back subcutaneous/skin. Direct inspection may be performed as clinically warranted. 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 Medications Home Meds Reported Medications Prednisone* (Prednisone*) 2.5 Mg Tablet, 2.5 MG PO DAILY, TAB 01/09/17 Metoprolol Succinate* (Toprol XL*) 50 Mg Tab.er.24h, 50 MG PO DAILY, #30 TAB 01/09/17 Metoprolol Succinate* (Toprol XL*) 25 Mg Tab.sr.24h, 25 MG PO QHS, #30 TAB 01/09/17 Sulfamethoxazole/Trimethoprim* (Bactrim Ds* Tablet) 1 Each Tablet, 1 TAB PO DAILY, TAB 01/09/17 Acyclovir* (Acyclovir*) 400 Mg Tablet, 400 MG PO BID, TAB 01/09/17 Hydrocodone/Acetaminophen ([place] 10-325 Tablet) 1 Each Tablet, 1 EACH PO Q6H, TAB 01/09/17 Allergies Allergies: Coded Allergies: No Known Allergy (Unverified , 01/09/17) Social History Smoking Status: Never smoker Exam/Review of Systems Vital Signs Vitals Vital Signs Date Time Temp Pulse Resp B/P Pulse Ox O2 Delivery O2 Flow Rate FiO2 01/10/17 08:00 106 01/10/17 07:34 99.7 20 132/65 98 01/10/17 07:00 2.0 01/10/17 07:00 Nasal Cannula 01/10/17 03:17 28 Intake and Output 01/09/17 01/09/17 01/10/17 15:00 23:00 07:00 Output Total 500 ml Balance -500 ml Exam Constitutional: distress, other (vomiting) Head: atraumatic, normocephalic Eyes: PERRL Respiratory: diminished breath sounds Cardiovascular: other (tachycardic with regular rhythm) Gastrointestinal: soft, tender Extremities: normal pulses Skin: other (there are several nodules in different part of his body, some necrosing (worst on his buttocks) and also left forearm) Results Result Diagram: 01/10/17 0601 01/10/17 0601 Results 24 hrs Laboratory Tests Test 01/09/17 15:15 01/09/17 17:20 01/09/17 17:48 01/09/17 19:30 White Blood Count 4.1 L Red Blood Count 5.12 Hemoglobin 14.6 Hematocrit 42.4 Mean Corpuscular Volume 82.8 Mean Corpuscular Hemoglobin 28.5 L Mean Corpuscular Hemoglobin Concent 34.4 Red Cell Distribution Width 15.8 H Platelet Count 155 Mean Platelet Volume 11.2 H Neutrophils % 82.3 H Lymphocytes % 2.2 L Monocytes % 13.3 H Eosinophils % 0.5 Basophils % 0.2 Nucleated Red Blood Cells % 0.0 Neutrophils # 3.3 Lymphocytes # 0.1 L Monocytes # 0.5 Eosinophils # 0.0 Basophils # 0.0 Nucleated Red Blood Cells # 0.0 Prothrombin Time 19.4 H Prothrombin Time Ratio 1.5 INR International Normalized Ratio 1.62 Activated Partial Thromboplast Time 45.6 H Sodium Level 124 L Potassium Level 3.1 L Chloride Level 81 L Carbon Dioxide Level 26 Anion Gap 20 H Blood Urea Nitrogen 24 H Creatinine 1.26 H Glucose Level 105 Lactic Acid Level 4.6 *H 3.6 *H 2.8 *H Calcium Level 8.0 L Total Bilirubin 1.1 Direct Bilirubin 0.00 Indirect Bilirubin 1.1 Aspartate Amino Transf (AST/SGOT) 92 H Alanine Aminotransferase (ALT/SGPT) 39 Alkaline Phosphatase 191 H Troponin I < 0.012 Total Protein 6.5 Albumin 3.1 L Globulin 3.40 H Albumin/Globulin Ratio 0.91 Urine Color OMAR Urine Clarity SLIGHTLY CLOUDY A Urine pH 5.0 Urine Specific Kevin 1.024 Urine Ketones TRACE A Urine Nitrite NEGATIVE Urine Bilirubin NEGATIVE Urine Urobilinogen 1+ H Urine Leukocyte Esterase NEGATIVE Urine Microscopic RBC 1 Urine Microscopic WBC 8 H Urine Squamous Epithelial Cells FEW Urine Mucus FEW A Urine Hemoglobin NEGATIVE Urine Glucose NEGATIVE Urine Total Protein 1+ H Test 01/09/17 21:58 01/10/17 06:01 01/10/17 06:02 Prothrombin Time 21.7 H Prothrombin Time Ratio 1.7 INR International Normalized Ratio 1.87 Activated Partial Thromboplast Time 51.2 H Free Thyroxine 1.94 White Blood Count 2.8 #L Red Blood Count 3.83 #L Hemoglobin 10.9 #L Hematocrit 31.5 #L Mean Corpuscular Volume 82.2 Mean Corpuscular Hemoglobin 28.5 L Mean Corpuscular Hemoglobin Concent 34.6 Red Cell Distribution Width 16.0 H Platelet Count 159 Mean Platelet Volume 11.1 H Neutrophils % 80.9 H Lymphocytes % 2.8 L Monocytes % 14.5 H Eosinophils % 0.0 Basophils % 0.4 Nucleated Red Blood Cells % 0.0 Neutrophils # 2.3 Lymphocytes # 0.1 L Monocytes # 0.4 Eosinophils # 0.0 Basophils # 0.0 Nucleated Red Blood Cells # 0.0 Sodium Level 125 L Potassium Level 3.2 L Chloride Level 90 L Carbon Dioxide Level 25 Anion Gap 13 # Blood Urea Nitrogen 19 Creatinine 0.80 Glucose Level 89 Hemoglobin A1c 4.7 Calcium Level 7.0 L Phosphorus Level 1.9 L Magnesium Level 1.9 Triglycerides Level 313 H Cholesterol Level 68 L LDL Cholesterol, Calculated HDL Cholesterol 13 L Cholesterol/HDL Ratio 5.2 Thyroid Stimulating Hormone (TSH) 0.674 Medications Medications Current Medications Acetaminophen (Tylenol Tab) 650 mg Q6H PRN PO PAIN LEVEL 1-3 OR FEVER Last administered on 01/10/17 06:12; Admin Dose 650 MG; Start 01/09/17 at 19:30 Acetaminophen/ Hydrocodone Bitart ([place] (5/325)) 1 tab Q6H PRN PO MODERATE PAIN LEVEL 4-6; Start 01/09/17 at 19:30 Morphine Sulfate (morphine) 2 mg Q4H PRN IV SEVERE PAIN LEVEL 7-10 Last administered on 01/10/17 04:23; Admin Dose 2 MG; Start 01/09/17 at 19:30 Docusate Sodium (Colace) 100 mg Q12H PRN PO CONSTIPATION; Start 01/09/17 at 19: 30 Magnesium Hydroxide (Milk Of Mag) 30 ml DAILY PRN PO CONSTIPATION; Start at 19:30 Sodium Biphosphate/ Sodium Phosphate (Fleet Enema) 133 ml DAILY PRN [place] CONSTIPATION; Start 01/09/17 at 19:30 Pantoprazole (Protonix Tab) 40 mg DAILY@06 PO Last administered on 01/10/17 06: 08; Admin Dose 40 MG; Start 01/10/17 at 06:00 Heparin Sodium (Porcine) (Heparin (5000 Units/0.5 ml)) 5,000 unit Q12 SC Last administered on 01/10/17 09:16; Admin Dose 5,000 UNIT; Start 01/09/17 at 21:00 Lorazepam 0.5 mg 0.5 mg Q6H PRN IV ANXIETY; Start 01/09/17 at 19:30 Sodium Chloride 1,000 ml @ 100 mls/hr Q10H IV Last administered on 01/10/17 00 :45; Admin Dose 100 MLS/HR; Start 01/09/17 at 19:18 Piperacillin Sod/ Tazobactam Sod (Zosyn 3.375gm/ 100 ml (Pmx)) 100 ml @ 200 mls /hr Q6 IVPB Last administered on 01/10/17 06:08; Admin Dose 200 MLS/HR; Start 01/10/17 at 00:00 Vancomycin HCl (Vanco Iv Per Pharmacy) VANCOMYCIN PER PHARMACY NOTE XX ; Start 01/09/17 at 19:30 Nitroglycerin (Nitroglycerin (Sl Tab) 0.4 Mg) 1 tab Q5M PRN SL ANGINA; Start at 19:30 Acyclovir (Zovirax) 400 mg BID PO Last administered on 01/10/17 09:15; Admin Dose 400 MG; Start 01/09/17 at 21:00 Metoprolol Succinate (Toprol Xl) 25 mg QHS PO ; Start 01/09/17 at 21:00 Prednisone (Prednisone) 2.5 mg DAILY PO Last administered on 01/10/17 09:15; Admin Dose 2.5 MG; Start 01/10/17 at 09:00 Trimethoprim/ Sulfamethoxazole (Bactrim (Ds)) 1 tab DAILY PO Last administered on 01/10/17 09:15; Admin Dose 1 TAB; Start 01/10/17 at 09:00 Morphine Sulfate 4 mg 4 mg Q3H PRN IV PAIN LEVEL 8-10 Last administered on 02:02; Admin Dose 4 MG; Start 01/09/17 at 22:00 Vancomycin HCl/ Sodium Chloride (Vancocin/NS) 500 ml @ 125 mls/hr Q24H IVPB Last administered on 01/10/17 04:10; Admin Dose 125 MLS/HR; Start 01/10/17 at 05: 00 Miscellaneous Information (Pending Santyl Order For Wound Care) This patient aranda... PRN PRN XX WOUND CARE; Start 01/10/17 at 03:30 Metoclopramide HCl (Reglan) 10 mg Q6H PRN IV NAUSEA AND/OR VOMITING Last administered on 01/10/17 04:10; Admin Dose 10 MG; Start 01/10/17 at 04:30 Ondansetron HCl (Zofran Inj) 4 mg Q6H PRN IV NAUSEA AND/OR VOMITING Last administered on 01/10/17 09:14; Admin Dose 4 MG; Start 01/10/17 at 07:30 Hydromorphone HCl 1 mg 1 mg Q4H PRN IV PAIN Last administered on 01/10/17 08:05 ; Admin Dose 1 MG; Start 01/10/17 at 08:00 Potassium Chloride/Sodium Chloride (KCl/NS) 165 ml @ 55 mls/hr ONCE ONCE IVPB ; Start 01/10/17 at 10:15; Stop 01/10/17 at 13:14 MOIRA BIRMINGHAM MD Jan 10, 2017 10:48
[2017-01-10] MEDS ORDERED: FILGRASTIM 300 MCG INJ SC ONE (11:00)
[2017-01-10] MEDS ORDERED: MAGNESIUM SULFATE 2 GM/50 ML 50 ML IVPB ONE (13:00)
--- NOTE | 2017-01-10 13:34 | CONS ---
Date/Time of Note Date/Time of Note DATE: 01/10/17 TIME: 13:33 Consultation Date/Type/Reason Admit Date/Time Jan 09, 2017 at 19:08 Date of Consultation: Jan 10, 2017 Type of Consultation: ID Reason for Consultation Antibiotic management Social History Smoking Status: Never smoker Exam/Review of Systems Vital Signs Vitals Vital Signs Date Time Temp Pulse Resp B/P Pulse Ox O2 Delivery O2 Flow Rate FiO2 01/10/17 12:43 119 01/10/17 08:00 Nasal Cannula 2.0 01/10/17 07:34 99.7 20 132/65 98 01/10/17 03:17 28 Intake and Output 01/09/17 01/09/17 01/10/17 15:00 23:00 07:00 Output Total 500 ml Balance -500 ml Results Result Diagram: 01/10/17 0601 01/10/17 0601 Results 24 hrs Laboratory Tests Test 01/09/17 15:15 01/09/17 17:20 01/09/17 17:48 01/09/17 19:30 White Blood Count 4.1 L Red Blood Count 5.12 Hemoglobin 14.6 Hematocrit 42.4 Mean Corpuscular Volume 82.8 Mean Corpuscular Hemoglobin 28.5 L Mean Corpuscular Hemoglobin Concent 34.4 Red Cell Distribution Width 15.8 H Platelet Count 155 Mean Platelet Volume 11.2 H Neutrophils % 82.3 H Lymphocytes % 2.2 L Monocytes % 13.3 H Eosinophils % 0.5 Basophils % 0.2 Nucleated Red Blood Cells % 0.0 Neutrophils # 3.3 Lymphocytes # 0.1 L Monocytes # 0.5 Eosinophils # 0.0 Basophils # 0.0 Nucleated Red Blood Cells # 0.0 Prothrombin Time 19.4 H Prothrombin Time Ratio 1.5 INR International Normalized Ratio 1.62 Activated Partial Thromboplast Time 45.6 H Sodium Level 124 L Potassium Level 3.1 L Chloride Level 81 L Carbon Dioxide Level 26 Anion Gap 20 H Blood Urea Nitrogen 24 H Creatinine 1.26 H Glucose Level 105 Lactic Acid Level 4.6 *H 3.6 *H 2.8 *H Calcium Level 8.0 L Total Bilirubin 1.1 Direct Bilirubin 0.00 Indirect Bilirubin 1.1 Aspartate Amino Transf (AST/SGOT) 92 H Alanine Aminotransferase (ALT/SGPT) 39 Alkaline Phosphatase 191 H Troponin I < 0.012 Total Protein 6.5 Albumin 3.1 L Globulin 3.40 H Albumin/Globulin Ratio 0.91 Urine Color OMAR Urine Clarity SLIGHTLY CLOUDY A Urine pH 5.0 Urine Specific [place] 1.024 Urine Ketones TRACE A Urine Nitrite NEGATIVE Urine Bilirubin NEGATIVE Urine Urobilinogen 1+ H Urine Leukocyte Esterase NEGATIVE Urine Microscopic RBC 1 Urine Microscopic WBC 8 H Urine Squamous Epithelial Cells FEW Urine Mucus FEW A Urine Hemoglobin NEGATIVE Urine Glucose NEGATIVE Urine Total Protein 1+ H Test 01/09/17 21:58 01/10/17 06:01 01/10/17 06:02 Prothrombin Time 21.7 H Prothrombin Time Ratio 1.7 INR International Normalized Ratio 1.87 Activated Partial Thromboplast Time 51.2 H Free Thyroxine 1.94 White Blood Count 2.8 #L Red Blood Count 3.83 #L Hemoglobin 10.9 #L Hematocrit 31.5 #L Mean Corpuscular Volume 82.2 Mean Corpuscular Hemoglobin 28.5 L Mean Corpuscular Hemoglobin Concent 34.6 Red Cell Distribution Width 16.0 H Platelet Count 159 Mean Platelet Volume 11.1 H Neutrophils % 80.9 H Lymphocytes % 2.8 L Monocytes % 14.5 H Eosinophils % 0.0 Basophils % 0.4 Nucleated Red Blood Cells % 0.0 Neutrophils # 2.3 Lymphocytes # 0.1 L Monocytes # 0.4 Eosinophils # 0.0 Basophils # 0.0 Nucleated Red Blood Cells # 0.0 Sodium Level 125 L Potassium Level 3.2 L Chloride Level 90 L Carbon Dioxide Level 25 Anion Gap 13 # Blood Urea Nitrogen 19 Creatinine 0.80 Glucose Level 89 Hemoglobin A1c 4.7 Calcium Level 7.0 L Phosphorus Level 1.9 L Magnesium Level 1.9 Triglycerides Level 313 H Cholesterol Level 68 L LDL Cholesterol, Calculated HDL Cholesterol 13 L Cholesterol/HDL Ratio 5.2 Thyroid Stimulating Hormone (TSH) 0.674 Medications Medications Current Medications Acetaminophen (Tylenol Tab) 650 mg Q6H PRN PO PAIN LEVEL 1-3 OR FEVER Last administered on 01/10/17t 06:12; Admin Dose 650 MG; Start 01/09/17 at 19:30 Acetaminophen/ Hydrocodone Bitart ([place] (5/325)) 1 tab Q6H PRN PO MODERATE PAIN LEVEL 4-6; Start 01/09/17 at 19:30 Morphine Sulfate (morphine) 2 mg Q4H PRN IV SEVERE PAIN LEVEL 7-10 Last administered on 01/10/17 04:23; Admin Dose 2 MG; Start 01/09/17 at 19:30 Docusate Sodium (Colace) 100 mg Q12H PRN PO CONSTIPATION; Start 01/09/17 at 19: 30 Magnesium Hydroxide (Milk Of Mag) 30 ml DAILY PRN PO CONSTIPATION; Start at 19:30 Sodium Biphosphate/ Sodium Phosphate (Fleet Enema) 133 ml DAILY PRN [place] CONSTIPATION; Start 01/09/17 at 19:30 Pantoprazole (Protonix Tab) 40 mg DAILY@06 PO Last administered on 01/10/17 06: 08; Admin Dose 40 MG; Start 01/10/17 at 06:00 Heparin Sodium (Porcine) (Heparin (5000 Units/0.5 ml)) 5,000 unit Q12 SC Last administered on 01/10/17 09:16; Admin Dose 5,000 UNIT; Start 01/09/17 at 21:00 Lorazepam 0.5 mg 0.5 mg Q6H PRN IV ANXIETY; Start 01/09/17 at 19:30 Piperacillin Sod/ Tazobactam Sod (Zosyn 3.375gm/ 100 ml (Pmx)) 100 ml @ 200 mls /hr Q6 IVPB Last administered on 01/10/17 06:08; Admin Dose 200 MLS/HR; Start 01/10/17 at 00:00 Vancomycin HCl (Vanco Iv Per Pharmacy) VANCOMYCIN PER PHARMACY NOTE XX ; Start 01/09/17 at 19:30 Nitroglycerin (Nitroglycerin (Sl Tab) 0.4 Mg) 1 tab Q5M PRN SL ANGINA; Start at 19:30 Acyclovir (Zovirax) 400 mg BID PO ; Start 01/09/17 at 21:00 Metoprolol Succinate (Toprol Xl) 25 mg QHS PO ; Start 01/09/17 at 21:00 Prednisone (Prednisone) 2.5 mg DAILY PO ; Start 01/10/17 at 09:00 Trimethoprim/ Sulfamethoxazole (Bactrim (Ds)) 1 tab DAILY PO Last administered on 01/10/17 09:15; Admin Dose 1 TAB; Start 01/10/17 at 09:00 Morphine Sulfate (morphine) 4 mg Q3H PRN IV PAIN LEVEL 8-10 Last administered on 01/10/17 11:03; Admin Dose 4 MG; Start 01/09/17 at 22:00 Miscellaneous Information (Pending [facility] Order For Wound Care) This patient aranda... PRN PRN XX WOUND CARE; Start 01/10/17 at 03:30 Metoclopramide HCl (Reglan) 10 mg Q6H PRN IV NAUSEA AND/OR VOMITING Last administered on 01/10/17 11:02; Admin Dose 10 MG; Start 01/10/17 at 04:30 Ondansetron HCl (Zofran Inj) 4 mg Q6H PRN IV NAUSEA AND/OR VOMITING Last administered on 01/10/17 09:14; Admin Dose 4 MG; Start 01/10/17 at 07:30 Hydromorphone HCl 1 mg 1 mg Q4H PRN IV PAIN Last administered on 01/10/17 12:47 ; Admin Dose 1 MG; Start 01/10/17 at 08:00 Vancomycin HCl/ Sodium Chloride (Vancocin/NS) 250 ml @ 83.333 mls/ hr Q8H IVPB ; Start 01/10/17 at 13:00 Miscellaneous Information 1 ONCE ONCE XX ; Start 01/11/17 at 04:00; Stop at 04:01 Sodium Phosphate/ Sodium Chloride (Sodium Phosphate/NS) 255 ml @ 63.75 mls/ hr ONCE ONCE IVPB ; Start 01/10/17 at 14:00; Stop 01/10/17 at 17:59 IZABEL PRUITT MD Jan 10, 2017 13:34
[2017-01-10] MEDS ORDERED: SODIUM PHOSPHATE 15 MMOL in SOD CHLORIDE 0.9% 250 ML IVPB ONE (14:00)
[2017-01-10 14:51] LABS: URIC ACID 3.8 mg/dl (3.1-7.9)
[2017-01-10 15:23] LABS: THYROID STIMULATING HORMONE 0.411 MIU/L (0.465-4.680)
--- NOTE | 2017-01-10 15:37 | CONS ---
Date/Time of Note Date/Time of Note DATE: 01/10/17 TIME: 15:28 Assessment/Plan Assessment/Plan Additional Assessment/Plan Pain out of control Abdominal pains possibly secondary to tumor and underlying infectious process Nausea and vomiting, protracted Fevers prior to admission Anaplastic lymphoma Status post oral chemotherapy approximately 1 month prior to this hospitalization Will discontinue current pain control medications and begin [employer] Dilaudid, pulse with steroids for nausea and vomiting as well as pain control, Tylenol IV scheduled and scheduled Zofran. Will follow closely. Thank You Consultation Date/Type/Reason Admit Date/Time Jan 09, 2017 at 19:08 Date of Consultation: Jan 10, 2017 Reason for Consultation Pain management Hx of Present Illness This is a 31-year-old gentleman who has a history of anaplastic lymphoma last chemotherapy received was approximately 1 month ago. Approximately 2 weeks prior to this hospitalization he developed acute onset of abdominal discomfort. He describes his pain as a gnawing discomfort which is primarily periumbilical with radiation since his right flank. States she has had nausea vomiting fevers up to 102 prior to hospitalization. Denies regular use denies chest discomfort denies frequency burning when he urinates bright red blood per rectum or melanotic stools, or coffee grounds emesis. He has been taking only [place] for control his abdominal discomfort. Rating of his pain is 10/10 not alleviated with current pain control medication, there is no past medical history of excessive use of opioid alcohol or other addiction disorders. He denies any side effects with current pain control medications just not alleviating his degree of pain. Evaluation of the abdominal viscera is limited without intravenous contrast. 1. No acute abdominal pathology. 2. Multiple small consolidations within the right lower lobe. Underlying nodules are not excluded. Dedicated CT of the chest as well as follow-up imaging is recommended to document resolution as clinically warranted. 3. Subcutaneous density within the anterior abdominal wall which may represent a subcutaneous hematoma versus other subcutaneous lesion. There are also more extensive subcutaneous densities along the left flank and back subcutaneous/ skin. Direct inspection may be performed as clinically warranted. Social History Smoking Status: Never smoker Exam/Review of Systems Vital Signs Vitals Vital Signs Date Time Temp Pulse Resp B/P Pulse Ox O2 Delivery O2 Flow Rate FiO2 01/10/17 12:43 119 01/10/17 08:00 Nasal Cannula 2.0 01/10/17 07:34 99.7 20 132/65 98 01/10/17 03:17 28 Intake and Output 01/09/17 01/09/17 01/10/17 15:00 23:00 07:00 Output Total 500 ml Balance -500 ml Exam Constitutional: alert, distress, oriented, well developed Psych: nl mood/affect, no complaints Head: atraumatic, normocephalic Eyes: EOMI, PERRL, nl conjunctiva, nl lids, nl sclera Respiratory: clear to auscultation, normal air movement Cardiovascular: nl pulses, regular rate and rhythm Gastrointestinal: bowel sounds, mass, tender Neurological: [place]RIMP [employer]AT II-XII intact, nl mental status, nl speech, nl strength Results Result Diagram: 01/10/17 0601/10/17 0601 Results 24 hrs Laboratory Tests Test 01/09/17 17:20 01/09/17 17:48 01/09/17 19:30 01/09/17 21:58 Lactic Acid Level 3.6 *H 2.8 *H Urine Color OMAR Urine Clarity SLIGHTLY CLOUDY A Urine pH 5.0 Urine Specific [place] 1.024 Urine Ketones TRACE A Urine Nitrite NEGATIVE Urine Bilirubin NEGATIVE Urine Urobilinogen 1+ H Urine Leukocyte Esterase NEGATIVE Urine Microscopic RBC 1 Urine Microscopic WBC 8 H Urine Squamous Epithelial Cells FEW Urine Mucus FEW A Urine Hemoglobin NEGATIVE Urine Glucose NEGATIVE Urine Total Protein 1+ H Prothrombin Time 21.7 H Prothrombin Time Ratio 1.7 INR International Normalized Ratio 1.87 Activated Partial Thromboplast Time 51.2 H Free Thyroxine 1.94 Test 01/10/17 06:01 01/10/17 06:02 01/10/17 14:18 01/10/17 14:23 White Blood Count 2.8 #L Red Blood Count 3.83 #L Hemoglobin 10.9 #L Hematocrit 31.5 #L Mean Corpuscular Volume 82.2 Mean Corpuscular Hemoglobin 28.5 L Mean Corpuscular Hemoglobin Concent 34.6 Red Cell Distribution Width 16.0 H Platelet Count 159 Mean Platelet Volume 11.1 H Neutrophils % 80.9 H Lymphocytes % 2.8 L Monocytes % 14.5 H Eosinophils % 0.0 Basophils % 0.4 Nucleated Red Blood Cells % 0.0 Neutrophils # 2.3 Lymphocytes # 0.1 L Monocytes # 0.4 Eosinophils # 0.0 Basophils # 0.0 Nucleated Red Blood Cells # 0.0 Sodium Level 125 L 129 L Potassium Level 3.2 L Chloride Level 90 L Carbon Dioxide Level 25 Anion Gap 13 # Blood Urea Nitrogen 19 Creatinine 0.80 Glucose Level 89 Hemoglobin A1c 4.7 Calcium Level 7.0 L Phosphorus Level 1.9 L Magnesium Level 1.9 Triglycerides Level 313 H Cholesterol Level 68 L LDL Cholesterol, Calculated HDL Cholesterol 13 L Cholesterol/HDL Ratio 5.2 Thyroid Stimulating Hormone (TSH) 0.674 0.411 L Uric Acid 3.8 Lactic Acid Level 2.5 *H Medications Medications Current Medications Acetaminophen (Tylenol Tab) 650 mg Q6H PRN PO PAIN LEVEL 1-3 OR FEVER Last administered on 01/10/17 06:12; Admin Dose 650 MG; Start 01/09/17 at 19:30 Acetaminophen/ Hydrocodone Bitart ([place] (5/325)) 1 tab Q6H PRN PO MODERATE PAIN LEVEL 4-6; Start 01/09/17 at 19:30 Morphine Sulfate (morphine) 2 mg Q4H PRN IV SEVERE PAIN LEVEL 7-10 Last administered on 01/10/17 04:23; Admin Dose 2 MG; Start 01/09/17 at 19:30 Docusate Sodium (Colace) 100 mg Q12H PRN PO CONSTIPATION; Start 01/09/17 at 19: 30 Magnesium Hydroxide (Milk Of Mag) 30 ml DAILY PRN PO CONSTIPATION; Start at 19:30 Sodium Biphosphate/ Sodium Phosphate (Fleet Enema) 133 ml DAILY PRN RI CONSTIPATION; Start 01/09/17 at 19:30 Pantoprazole (Protonix Tab) 40 mg DAILY@06 PO Last administered on 01/10/17 06: 08; Admin Dose 40 MG; Start 01/10/17 at 06:00 Heparin Sodium (Porcine) (Heparin (5000 Units/0.5 ml)) 5,000 unit Q12 SC Last administered on 01/10/17 09:16; Admin Dose 5,000 UNIT; Start 01/09/17 at 21:00 Lorazepam 0.5 mg 0.5 mg Q6H PRN IV ANXIETY; Start 01/09/17 at 19:30 Piperacillin Sod/ Tazobactam Sod (Zosyn 3.375gm/ 100 ml (Pmx)) 100 ml @ 200 mls /hr Q6 IVPB Last administered on 01/10/17 06:08; Admin Dose 200 MLS/HR; Start 01/10/17 at 00:00 Vancomycin HCl (Vanco Iv Per Pharmacy) VANCOMYCIN PER PHARMACY NOTE XX ; Start 01/09/17 at 19:30 Nitroglycerin (Nitroglycerin (Sl Tab) 0.4 Mg) 1 tab Q5M PRN SL ANGINA; Start at 19:30 Acyclovir (Zovirax) 400 mg BID PO ; Start 01/09/17 at 21:00 Metoprolol Succinate (Toprol Xl) 25 mg QHS PO ; Start 01/09/17 at 21:00 Prednisone (Prednisone) 2.5 mg DAILY PO ; Start 01/10/17 at 09:00 Trimethoprim/ Sulfamethoxazole (Bactrim (Ds)) 1 tab DAILY PO Last administered on 01/10/17 09:15; Admin Dose 1 TAB; Start 01/10/17 at 09:00 Morphine Sulfate (morphine) 4 mg Q3H PRN IV PAIN LEVEL 8-10 Last administered on 01/10/17 11:03; Admin Dose 4 MG; Start 01/09/17 at 22:00 Miscellaneous Information (Pending [facility] Order For Wound Care) This patient aranda... PRN PRN XX WOUND CARE; Start 01/10/17 at 03:30 Metoclopramide HCl (Reglan) 10 mg Q6H PRN IV NAUSEA AND/OR VOMITING Last administered on 01/10/17 11:02; Admin Dose 10 MG; Start 01/10/17 at 04:30 Ondansetron HCl (Zofran Inj) 4 mg Q6H PRN IV NAUSEA AND/OR VOMITING Last administered on 01/10/17 09:14; Admin Dose 4 MG; Start 01/10/17 at 07:30 Hydromorphone HCl 1 mg 1 mg Q4H PRN IV PAIN Last administered on 01/10/17 12:47 ; Admin Dose 1 MG; Start 01/10/17 at 08:00 Vancomycin HCl/ Sodium Chloride (Vancocin/NS) 250 ml @ 83.333 mls/ hr Q8H IVPB ; Start 01/10/17 at 13:00 Miscellaneous Information 1 ONCE ONCE XX ; Start 01/11/17 at 04:00; Stop at 04:01 Sodium Phosphate/ Sodium Chloride (Sodium Phosphate/NS) 255 ml @ 63.75 mls/ hr ONCE ONCE IVPB ; Start 01/10/17 at 14:00; Stop 01/10/17 at 17:59 SHELBY WHITE Jan 10, 2017 15:37
[2017-01-10] MEDS: VANCOMYCIN 1.5 GM in SOD CHLORIDE 0.9% 250 ML IVPB SCH ×2 (15:42→22:55)
[2017-01-10] MEDS: ONDANSETRON 4 MG INJ IV SCH ×2 (15:52→20:31)
[2017-01-10] MEDS: ALBUTEROL/IPRATROPIUM (NEB) 3 ML AMP HHN PRN (15:57)
[2017-01-10] MEDS: ACETAMINOPHEN 1000MG/100ML IV 100 ML IVPB SCH (16:30)
[2017-01-10] MEDS ORDERED: HYDROmorphONE 1 MG/ML SYG IV STA (16:30)
[2017-01-10 16:34] LABS: ADD UMIC YES; UR ASCORBIC ACID NEGATIVE (NEGATIVE); UR BILIRUBIN (Dip) NEGATIVE (NEGATIVE); UR BLOOD (Dip) NEGATIVE (NEGATIVE); UR CLARITY CLEAR (CLEAR); UR COLOR AMBER (YELLOW); UR GLUCOSE (Dip) NEGATIVE (NEGATIVE); UR KETONES (Dip) NEGATIVE (NEGATIVE); UR LEUKOCYTE ESTERASE (Dip) NEGATIVE Leu/ul (NEGATIVE); UR NITRITE (Dip) NEGATIVE (NEGATIVE); UR RBC 1 /HPF (0-5); UR SPECIFIC GRAVITY (Dip) 1.025 (1.003-1.030); UR TOTAL PROTEIN (Dip) 1+ mg/dl (NEGATIVE); UR UROBILINOGEN (Dip) 1+ mg/dL (NEGATIVE)
[2017-01-10] MEDS: METHYLPREDNISOLONE 125 MG INJ IV SCH (18:53)
--- NOTE | 2017-01-10 19:57 | RADRPT ---
PROCEDURE: XR Chest. CLINICAL INDICATION: Check PICC line position. TECHNIQUE: Single frontal view. COMPARISON: 01/09/2017. FINDINGS: There is a right arm PICC line with the tip coiled in the right subclavian vein. There is patchy co nsolidation throughout the right lung, unchanged. The heart is enlarged. There is no pleural effusion. There is no pneumothorax. IMPRESSION: 1. Right arm PICC line tip coiled in the right subclavian vein. 2. Patchy consolidation throughout the right lung, unchanged. 3. Cardiomegaly. RPTAT: QQ .Portillo Heart MD, MD Date Time Electronically viewed and signed by .Portillo Heart MD, on 01/10/2017 19:57 .R/
--- NOTE | 2017-01-10 19:57 | RADRPT ---
PROCEDURE: XR Chest. CLINICAL INDICATION: Check PICC line position. TECHNIQUE: Single frontal view. COMPARISON: Prior study done earlier the same day. FINDINGS: There is a right arm PICC line with the tip in the cavoatrial junction region. Extensive patchy con solidation throughout the right lung is unchanged. The left lung is clear. The heart is enlarged. There is no pleural effusion. There is no pneumothorax. IMPRESSION: 1. Right arm PICC line tip in satisfactory position. 2. Patchy consolidation throughout the right lung, unchanged. 3. Cardiomegaly. RPTAT: QQ .Portillo Heart MD, Date Time Electronically viewed and signed by .Portillo Heart MD, on 01/10/2017 19:56 .R/
[2017-01-10] MEDS ORDERED: SOD CHLORIDE 0.9% 100 ML ONE (20:08)
--- NOTE | 2017-01-10 20:40 | RADRPT ---
PROCEDURE: US guidance for PICC line CLINICAL INDICATION: PICC line placement TECHNIQUE: Multiple real-time images were acquired of the patient's arm utilizing a high resolutio n transducer. This was performed by the PICC line nurse for venous access. COMPARISON: None FINDINGS: Ultrasound guidance for PICC line placement. IMPRESSION: Ultrasound guidance for PICC line placement. RPTAT: AA .Shaw Clarke MD, MD Date Time Electronically viewed and signed by .Shaw Clarke MD, on 01/10/2017 20:40 .S/
[2017-01-10] MEDS: HYDROmorphONE 0.2 MG/ML PCA IV SCH (21:11)
[2017-01-11] VITALS (12 sets, daily range): BP systolic 99–118; BP diastolic 55–59; PULSE 71–96; RESP 16–20
[2017-01-11] MEDS: ACETAMINOPHEN 1000MG/100ML IV 100 ML IVPB SCH ×4 (00:40→18:03)
[2017-01-11] MEDS: ONDANSETRON 4 MG INJ IV SCH ×4 (00:41→18:09)
[2017-01-11] MEDS: PIPER-TAZO 3.375 GM IV (PMX) 100 ML IVPB SCH ×4 (00:41→18:16)
[2017-01-11] MEDS: METHYLPREDNISOLONE 125 MG INJ IV SCH ×4 (00:41→18:13)
[2017-01-11] MEDS: HYDROmorphONE 0.2 MG/ML PCA IV SCH ×5 (02:20→21:33)
[2017-01-11] MEDS ORDERED: IOHEXOL 300MG/ML 150 ML BTL ONE (03:41)
[2017-01-11] MEDS ORDERED: SOD CHLORIDE 0.9% 100 ML ONE (03:41)
[2017-01-11 04:13] LABS: ABNORMAL IP MESSAGE 1; BASOPHILS % 0.1 % (0.0-2.0); HEMATOCRIT 31.4 % (42.0-52.0); HEMOGLOBIN 10.7 g/dl (14.0-18.0); LYMPHOCYTES # 0.1 10^3/ul (0.8-2.9); LYMPHOCYTES % 0.8 % (15.0-51.0); MEAN CORPUSCULAR HEMOGLOBIN 28.5 pg (29.0-33.0); MEAN CORPUSCULAR HGB CONC 34.1 g/dl (32.0-37.0); MEAN CORPUSCULAR VOLUME 83.7 fl (82.0-101.0); MEAN PLATELET VOLUME 9.9 fl (7.4-10.4); MONOCYTE # 0.2 10^3/ul (0.3-0.9); MONOCYTES % 1.7 % (0.0-11.0); NEUTROPHIL # 10.7 10^3/ul (1.6-7.5); NEUTROPHILS % 96.9 % (39.0-77.0); PLATELET COUNT 122 10^3/UL (140-415); POSITIVE DIFF @See below; RED BLOOD COUNT 3.75 10^6/ul (4.70-6.10); RED CELL DISTRIBUTION WIDTH 16.1 % (11.5-14.5); WHITE BLOOD COUNT 11.1 10^3/ul (4.8-10.8)
[2017-01-11 04:52] LABS: MAGNESIUM 1.9 mg/dl (1.7-2.5); PHOSPHORUS 3.5 mg/dl (2.5-4.9)
[2017-01-11] MEDS: VANCOMYCIN 1.5 GM in SOD CHLORIDE 0.9% 250 ML IVPB SCH (05:53)
[2017-01-11] MEDS: PANTOPRAZOLE (EC) 40 MG TAB PO SCH (05:53)
--- NOTE | 2017-01-11 06:14 | CONS ---
DATE OF ADMISSION: 01/09/2017 DATE OF CONSULTATION: 01/10/2017 REASON FOR CONSULTATION: Hyponatremia, hypokalemia. PHYSICIAN REQUESTING CONSULT: Dr. Hill. HISTORY OF PRESENT ILLNESS: This is a 31-year-old male with a diagnosis of anaplastic large B-cell lymphoma, who presented to the outpatient emergency room with complaints of abdominal pain, nausea, and vomiting. Patient states he was diagnosed about a year and a half ago with lymphoma. Unfortunately, it turned into an aggressive type. The patient had chemotherapy approximately 1 month ago. Ever since, has been experiencing complaints of nausea and vomiting. Patient upon arrival to the emergency room had a CT scan of the abdomen and pelvis that showed consolidation of right lower lobe and subcutaneous density in the anterior abdominal wall. The patient was given IV fluids, IV antibiotics and admitted to [facility] for evaluation telemetry. In terms of patient's renal history, patient has no prior history of chronic kidney disease. The patient upon arrival, also noted to be hyponatremic with sodium levels of 124. The patient despite receiving IV fluids had no significant increase until 125 mEq/L. The patient has had poor p.o. intake and continues to describe persistent nausea. PAST MEDICAL HISTORY: As stated above. History of lymphoma, history of abdominal pain, history of nausea, vomiting. PAST SURGICAL HISTORY: None. ALLERGIES: NONE. FAMILY HISTORY: Noncontributory. SOCIAL HISTORY: No alcohol or drug use. MEDICATIONS: Reviewed. REVIEW OF SYSTEMS: Fourteen point review of systems conducted. Pertinent positives listed in the HPI. Otherwise negative. PHYSICAL EXAMINATION: VITAL SIGNS: Blood pressure is 132/65, respirations 20, pulse 109, temperature 99.7. HEENT: Head is normocephalic. Pupils are reactive to light. NECK: Supple. HEART: Regular rate. LUNGS: Show diminished breath sounds at the base. ABDOMEN: Soft, nontender to palpation. No rebound or guarding. EXTREMITIES: Negative for clubbing, cyanosis. Trace edema. DERMATOLOGIC: Clean. No rashes. MUSCULOSKELETAL: No joint effusion. NEUROLOGIC: No focal deficits, although exam is somewhat limited due to lack of patient cooperation. LABORATORY: Shows sodium 125, potassium 3.2, chloride 90, BUN 19, creatinine 0.80, phosphorus 1.9. White count 2.8, hemoglobin 10.9, crit 31.5, platelet count 159. ASSESSMENT AND PLAN: This is a 31-year-old male who presents with: 1. Hyponatremia. Etiology is possibly multifactorial due to hypokalemia, questionable volume depletion versus underlying syndrome of inappropriate antidiuretic hormone secretion. The patient received intravenous hydration on initial presentation; however, there was no significant improvement in sodium levels. Hypokalemia is a contributing factor. Additionally, given patient's nausea vomiting and lymphoma underlying syndrome of inappropriate antidiuretic hormone secretion may also be contributing. PLAN: 1. At this point, is to do a full evaluation by checking an urine osmolality, serum osmolality, a uric acid level, TSH level, a urine/sodium level. We will place the patient on a free water restriction of no more than 1 L but otherwise continue current treatment plan. Continue to monitor serum sodium levels. 2. Hypokalemia. Replete with potassium chloride. 3. Nonoliguric acute kidney injury. Etiology secondary to hemodynamics, improved with IV hydration. We will continue to monitor. We will hold IV fluids. 4. Abdominal pain with nausea, vomiting. Etiology may be secondary to lymphoma. Continue current medical management. Continue antiemetics. 5. Sepsis secondary to pneumonia. Continue current antibiotic regimen. 6. Anaplastic B-cell lymphoma. We will defer to Oncology for management. Thank you so much for this interesting consult. It will be a pleasure to follow patient with you throughout the hospital course. Dictated By: Rios Michelle DO /paulette/meche /Document#: [id number]
--- NOTE | 2017-01-11 06:15 | CONS ---
DATE OF ADMISSION: 01/09/2017 DATE OF CONSULTATION: 01/10/2017 Infectious Disease Consultation REASON FOR CONSULTATION: Antibiotic management. HISTORY OF PRESENT ILLNESS: Jacobo Alcaraz is a 31-year-old male with history of anaplastic large B-cell lymphoma who presented to the emergency room complaining of abdominal pain, nausea, vomiting, and fever of 2 weeks' duration. He was diagnosed with lymphoma a year and a half ago, but unfortunately it turned into an aggressive type. His last chemotherapy was a month ago but has not had any since because of his complaints of abdominal pain, nausea, vomiting, and fever. He has some necrosing nodules in different parts of his body, worse on his buttocks, to some extent in the left forearm. His oncologist is Kain Wisdom. A CT scan of the abdomen and pelvis showed no acute abdominal pathology, multiple small consolidations within the right lower lobe. Underlying nodules are not excluded. Dedicated CT of the chest as well as followup imaging is recommended to document resolution as clinically warranted. Subcutaneous density within the anterior abdominal wall, which may represent subcutaneous hematoma versus other subcutaneous lesions. There are also more extensive subcutaneous densities along the left flank and back. PAST MEDICAL HISTORY: Operations as outlined. FAMILY HISTORY: Noncontributory. SOCIAL HISTORY: He does not smoke, drink, or abuse drugs. ALLERGIES: NONE TO PENICILLIN, SULFA, OR FOODS. MEDICATION: Per chart. REVIEW OF SYSTEMS: As per HPI. PHYSICAL EXAMINATION: GENERAL APPEARANCE: Patient is a well-developed, well-nourished male who looks chronically ill, in mild distress. VITAL SIGNS: Stable. He is afebrile. T-max of 99.7. SKIN: Without generalized rash. HEENT: Within normal limits. NECK: Supple. Lymph nodes not palpable. CHEST: Decreased breath sounds at the bases. HEART: Without murmur or gallop. He is tachycardic. ABDOMEN: Soft and nontender. Without organosplenomegaly or masses. EXTREMITIES: Without cyanosis, clubbing, or edema. There are several nodules on different parts of his body. Some necrosing is noted on his buttock and left forearm. RECTOGENITAL: Deferred. NEUROLOGICAL: No focal neurological abnormalities. IMPRESSION AND PLAN: On admission his white count was 2.8, H and H of 10.9 and 31.5, platelet count 159,000. BUN/creatinine 19/0.80. Patient was started on vancomycin and Zosyn. His urine is negative for nitrite and leukocyte esterase. He is on vancomycin, Zosyn, and also I believe is on trimethoprim sulfa. The patient was seen in consultation also by Dr Christina Alvarez, Hematology-Oncology. Leukopenia in patient with non-Hodgkin lymphoma, on chemotherapy, with septic picture. Will continue him on current therapy. I will dictate my findings to the hospitalists and to Dr Alvarez. We have done multiple blood cultures x4, urine culture, respiratory cultures, cultures of the stool, all appropriate. Dictated By: Clyde Lopez MD JD/paulette/lucia /Document#: [id number]
[2017-01-11 06:35] LABS: CALCIUM 7.2 mg/dl (8.4-10.2); CREATININE 0.71 mg/dl (0.61-1.24); POTASSIUM 3.7 mmol/L (3.5-5.1)
--- NOTE | 2017-01-11 07:18 | RADRPT ---
PROCEDURE: CT Chest with contrast. CLINICAL INDICATION: Lung nodule, pneumonia TECHNIQUE: CT of the chest was performed on a multi-detector scanner following the uncomplicated I V administration of 100 cc of Omnipaque 300. Coronal and sagittal images were reformatted from the axial data set. One or more of the following dose reduction techniques were used: automated exposur e control, adjustment of the mA and/or kV according to patient size, use of iterative reconstructio n technique. CTDI = 16.76 mGy. DLP = 725.29 mGy-cm. COMPARISON: Chest x-ray, 01/10/2017 FINDINGS: Extensive consolidation is seen throughout the right lung. There is a patchy consolidation are seen within the left lung as well. There is trace amount of right pleural fluid. No pulmonary edema or pneumothorax is identified. The central tracheobronchial tree is clear. No gross evidence of susp icious pulmonary nodule or mass is seen. The heart size is normal without pericardial effusion. There is no thoracic aortic aneurysm or diss ection. There is nonspecific mild prominence of mediastinal and right hilar lymph nodes, without de finite pathologic enlargement by size criteria. No axillary or supraclavicular lymphadenopathy is i dentified. Right-sided PICC line tip is in the SVC. The liver is enlarged (21 cm) and fatty infiltrated. Areas of poorly defined heterogeneous mass-lik e enhancement are seen medially and inferiorly within the right hepatic lobe. Splenomegaly is noted as well, measuring at least 14 cm. Multiple foci of mass-like infiltration are seen within cutaneo us and subcutaneous tissues of the chest - largest confluent area is seen posterolaterally on the le ft, measuring approximately 10 x 2 cm (3-120). The surrounding osseous structures are unremarkable. No osteolytic or osteoblastic lesion is detected. IMPRESSION: 1. Multiple foci of mass-like infiltration are seen within cutaneous and subcutaneous tissues of th e chest, concerning for infiltrative neoplastic process such as lymphoma. Consider tissue sampling for further evaluation. 2. Areas of pulmonary consolidation are identified bilaterally, greater on the right, possibly repr esenting multilobar pneumonia, though additional neoplastic infiltration is not excluded. 3. Hepatic steatosis and hepatosplenomegaly are noted. Areas of poorly defined mass-like infiltrat ion are identified within the right hepatic lobe, as described above, further concerning for neoplas m. 4. Right-sided PICC line is in place. RPTAT: EE .Ford Iyer MD, MD Date Time Electronically viewed and signed by .Ford Iyer MD, MD on 01/11/2017 07:18 .R/
--- NOTE | 2017-01-11 07:53 | CONS ---
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 Consultation Date/Type/Reason Admit Date/Time Jan 09, 2017 at 19:08 Initial Consult Date 01/10/17 Referring Provider: YAO RAHMAN Exam/Review of Systems Vital Signs Vitals Vital Signs Date Time Temp Pulse Resp B/P Pulse Ox O2 Delivery O2 Flow Rate FiO2 01/11/17 07:26 98.6 75 17 110/59 96 01/11/17 05:54 2.0 01/10/17 20:00 Nasal Cannula 01/10/17 03:17 28 Intake and Output 01/10/17 01/10/17 01/11/17 15:00 23:00 07:00 Intake Total 765 ml 650 ml 30 ml Output Total 450 ml 750 ml 450 ml Balance 315 ml -100 ml -420 ml Results Result Diagram: 01/11/17 0402 01/11/17 0402 Results 24 hrs Laboratory Tests Test 01/10/17 14:18 01/10/17 14:23 01/10/17 14:35 01/10/17 17:00 Sodium Level 129 L Uric Acid 3.8 Thyroid Stimulating Hormone (TSH) 0.411 L Lactic Acid Level 2.5 *H Urine Color OMAR Urine Clarity CLEAR Urine pH 6.0 Urine Specific [place] 1.025 Urine Ketones NEGATIVE Urine Nitrite NEGATIVE Urine Bilirubin NEGATIVE Urine Urobilinogen 1+ H Urine Leukocyte Esterase NEGATIVE Urine Microscopic RBC 1 Urine Microscopic WBC 7 H Urine Hemoglobin NEGATIVE Urine Osmolality 652 Urine Random Creatinine 195.67 Urine Random Sodium 17 L Urine Glucose NEGATIVE Urine Total Protein 39.0 H Osmolality 264 L Test 01/11/17 04:02 White Blood Count 11.1 #H Red Blood Count 3.75 L Hemoglobin 10.7 L Hematocrit 31.4 L Mean Corpuscular Volume 83.7 Mean Corpuscular Hemoglobin 28.5 L Mean Corpuscular Hemoglobin Concent 34.1 Red Cell Distribution Width 16.1 H Platelet Count 122 #L Mean Platelet Volume 9.9 Neutrophils % 96.9 H Lymphocytes % 0.8 L Monocytes % 1.7 Eosinophils % 0.0 Basophils % 0.1 Nucleated Red Blood Cells % 0.0 Neutrophils # 10.7 H Lymphocytes # 0.1 L Monocytes # 0.2 L Eosinophils # 0.0 Basophils # 0.0 Nucleated Red Blood Cells # 0.0 Sodium Level 129 L Potassium Level 3.7 Chloride Level 93 L Carbon Dioxide Level 24 Anion Gap 16 Blood Urea Nitrogen 15 Creatinine 0.71 Glucose Level 118 Calcium Level 7.2 L Phosphorus Level 3.5 Magnesium Level 1.9 Random Cortisol 21.8 Vancomycin Level Trough 18.0 Medications Medications Current Medications Docusate Sodium (Colace) 100 mg Q12H PRN PO CONSTIPATION; Start 01/09/17 at 19: 30 Magnesium Hydroxide (Milk Of Mag) 30 ml DAILY PRN PO CONSTIPATION; Start at 19:30 Sodium Biphosphate/ Sodium Phosphate (Fleet Enema) 133 ml DAILY PRN [place] CONSTIPATION; Start 01/09/17 at 19:30 Pantoprazole (Protonix Tab) 40 mg DAILY@06 PO Last administered on 01/11/17 05: 53; Admin Dose 40 MG; Start 01/10/17 at 06:00 Heparin Sodium (Porcine) 5000 unit 5,000 unit Q12 SC Last administered on 09:16; Admin Dose 5,000 UNIT; Start 01/09/17 at 21:00 Piperacillin Sod/ Tazobactam Sod (Zosyn 3.375gm/ 100 ml (Pmx)) 100 ml @ 200 mls /hr Q6 IVPB Last administered on 01/11/17 05:52; Admin Dose 200 MLS/HR; Start 01/10/17 at 00:00 Vancomycin HCl (Vanco Iv Per Pharmacy) VANCOMYCIN PER PHARMACY NOTE XX ; Start 01/09/17 at 19:30 Nitroglycerin (Nitroglycerin (Sl Tab) 0.4 Mg) 1 tab Q5M PRN SL ANGINA; Start at 19:30 Acyclovir (Zovirax) 400 mg BID PO ; Start 01/09/17 at 21:00 Metoprolol Succinate (Toprol Xl) 25 mg QHS PO ; Start 01/09/17 at 21:00 Trimethoprim/ Sulfamethoxazole (Bactrim (Ds)) 1 tab DAILY PO Last administered on 01/10/17 09:15; Admin Dose 1 TAB; Start 01/10/17 at 09:00 Miscellaneous Information This patient aranda... PRN PRN XX WOUND CARE; Start at 03:30 Vancomycin HCl/ Sodium Chloride (Vancocin/NS) 250 ml @ 83.333 mls/ hr Q8H IVPB Last administered on 01/11/17 05:53; Admin Dose 83.333 MLS/HR; Start 01/10/17 at 13:00 Hydromorphone HCl (Dilaudid GENER[employer]DRY WORKER) 1.0 MG/HR CONTINUOUS RATE .... Q4PCA IV Last administered on 01/11/17 07:41; Admin Dose 0.2 MG; Start 01/10/17 at 15:30 Ondansetron HCl (Zofran Inj) 4 mg Q6 IV Last administered on 01/11/17 05:53; Admin Dose 4 MG; Start 01/10/17 at 15:30 Methylprednisolone Sodium Succinate 60 mg 60 mg Q6 IV Last administered on 05:53; Admin Dose 60 MG; Start 01/10/17 at 18:00 Acetaminophen (Ofirmev 1000mg/ 100ml Iv) 100 ml @ 400 mls/hr Q6 IVPB Last administered on 01/11/17 05:52; Admin Dose 400 MLS/HR; Start 01/10/17 at 16:30 IV Flush (NS 10 ml) 10 ml PRN PRN IV IV PROTOCOL; Start 01/10/17 at 20:30 SHELBY WHITE Jan 11, 2017 07:53 administered on 01/11/17 05:52; Admin Dose 400 MLS/HR; Start 01/10/17 at 16:30 IV Flush (NS 10 ml) 10 ml PRN PRN IV IV PROTOCOL; Start 01/10/17 at 20:30 SHELBY WHITE Jan 11, 2017 07:53 Nitroglycerin (Nitroglycerin (Sl Tab) 0.4 Mg) 1 tab Q5M PRN SL ANGINA; Start at 19:30 Acyclovir (Zovirax) 400 mg BID PO ; Start 01/09/17 at 21:00 Metoprolol Succinate (Toprol Xl) 25 mg QHS PO ; Start 01/09/17 at 21:00 Trimethoprim/ Sulfamethoxazole (Bactrim (Ds)) 1 tab DAILY PO Last administered on 8/1/17at 09:15; Admin Dose 1 TAB; Start 01/10/17 at 09:00 Miscellaneous Information This patient aranda... PRN PRN XX WOUND CARE; Start at 03:30 Vancomycin HCl/ Sodium Chloride (Vancocin/NS) 250 ml @ 83.333 mls/ hr Q8H IVPB Last administered on 01/11/17 05:53; Admin Dose 83.333 MLS/HR; Start 01/10/17 at 13:00 Hydromorphone HCl (Dilaudid GENER[employer] WORKER) 1.0 MG/HR CONTINUOUS RATE .... Q4PCA IV Last administered on 01/11/17 07:41; Admin Dose 0.2 MG; Start 01/10/17 at 15:30 Ondansetron HCl (Zofran Inj) 4 mg Q6 IV Last administered on 01/11/17 05:53; Admin Dose 4 MG; Start 01/10/17 at 15:30 Methylprednisolone Sodium Succinate 60 mg 60 mg Q6 IV Last administered on 05:53; Admin Dose 60 MG; Start 01/10/17 at 18:00 Acetaminophen (Ofirmev 1000mg/ 100ml Iv) 100 ml @ 400 mls/hr Q6 IVPB Last administered on 01/11/17 05:52; Admin Dose 400 MLS/HR; Start 01/10/17 at 16:30 IV Flush (NS 10 ml) 10 ml PRN PRN IV IV PROTOCOL; Start 01/10/17 at 20:30 SHELBY WHITE Jan 11, 2017 07:53
[2017-01-11] MEDS: TRIMETHOPRIM/SULFAMETHOX (DS) TAB PO SCH (08:23)
[2017-01-11] MEDS: ACYCLOVIR 400 MG TAB PO SCH ×2 (08:23→22:24)
[2017-01-11] MEDS: HEPARIN 5,000 UNIT/0.5 ML VIAL SC SCH ×3 (08:29→22:20)
[2017-01-11] MEDS: SOD CHLORIDE 0.9% 1,000 ML IV SCH (09:37)
--- NOTE | 2017-01-11 09:40 | PN ---
DATE: 01/11/2017 SUBJECTIVE DATA: Patient is stable. No acute events overnight. The patient is feeling hungry and would like to eat. No other events noted. OBJECTIVE DATA: VITAL SIGNS: Blood pressure is 110/59, respiration 17, pulse 75, temperature 98.6. HEENT: Head is normocephalic. NECK: Supple. HEART: Regular rate. LUNGS: Show diminished breath sounds at the base. ABDOMEN: Soft, nontender to palpation. No rebound or guarding. EXTREMITIES: Negative for clubbing, cyanosis, no edema. DERMATOLOGIC: Clean. No rashes. MUSCULOSKELETAL: No joint effusion. NEUROLOGIC: Unchanged exam. MEDICATIONS: Reviewed. LABORATORY AND DIAGNOSTIC DATA: Shows sodium 129, potassium 3.7, chloride 93, BUN 15, creatinine 0.71. White count 11.1, hemoglobin 10.7, crit 31.4, platelet count 122. The patient's urine sodium levels shows urine osmolality at 652, renal less than 1 percent. The patient's random cortisol level is 21.8. Uric acid levels were 3.8. ASSESSMENT AND PLAN: 1. Hyponatremia. Etiology is multifactorial secondary to hypokalemia, possible volume depletion. The patient's urinalysis shows a FENa less than 1 percent. The patient's urine osmolality was appropriately elevated. Patient's sodium levels have improved with fluid restriction and after being given intravenous fluids. The possibility of syndrome of inappropriate antidiuretic hormone secretion was a consideration. However, given urine studies at this point, would treat the patient with volume repletion. We will resume normal saline at 50 cc an hour and monitor closely. Would also recommend to advance diet if possible. 2. Hypokalemia, improved. Continue to monitor and replete. 3. Nonoliguric acute kidney injury. Etiology secondary to hemodynamics, improved. Continue to monitor. 4. Abdominal pain secondary to nausea and vomiting. Continue current medical management. 5. Sepsis secondary to pneumonia. Continue antibiotic regimen. 6. Anaplastic T-cell lymphoma. We will defer to Oncology for further management. Dictated By: Rios Michelle DO /paulette/meche /Document#: [id number]
[2017-01-11 11:43] LABS: INR 2.08; PROTIME 23.6 Sec (12.2-14.2); PT RATIO 1.8
[2017-01-11 11:44] LABS: PARTIAL THROMBOPLASTIN TIME 54.6 Sec (25.0-35.0)
[2017-01-11] MEDS: VANCOMYCIN 1.25 GM in SOD CHLORIDE 0.9% 250 ML IVPB SCH ×2 (15:20→22:24)
--- NOTE | 2017-01-11 15:40 | PN ---
Date/Time of Note Date/Time of Note DATE: 01/11/17 TIME: 15:36 Assessment/Plan VTE Prophylaxis VTE Prophylaxis Intervention: ambulation Lines/Catheters IV Catheter Type (from Nrs): PICC Line Central line still needed: Yes Urinary Cath still in place: No Assessment/Plan Chief Complaint/Hosp Course Patient is a 31-year-old male with a past medical history of large B- cell lymphoma presented to the ED complaining of abdominal pain, nausea, vomiting, fever 2 weeks duration. Patient's last chemotherapy was approximately 1 month ago. Assessment and plan Sepsis, secondary pneumonia, resolving Abdominal pain Nausea Vomiting Hyponatremia UTI Hypokalemia Acute kidney injury B-cell lymphoma Lactic acidosis Plan -Patient's nausea and vomiting has substantially subsided, attempt to progress to clears -PNA/UTI, on abx. -Palliative care on board, controlling pain -Patient does have an oncologist, however oncology does not have privileges here , oncology has been consulted -Ultrasound biopsy ordered, patient needs normalized INR, will transfuse fresh frozen plasma right before the procedure tomorrow -CT of the abdomen pelvis and chest show multiple areas of nodules likely lymphoma, also possible pneumonia, patient on antibiotics -Multifactorial reasons for electrolyte derangement, all likely secondary to intractable nausea and vomiting, patient's labs are improving slowly, nephrology on board. Problems: Subjective 24 Hr Interval Summary Free Text/Dictation nausea/vomiting better Exam/Review of Systems Vital Signs Vitals Vital Signs Date Time Temp Pulse Resp B/P Pulse Ox O2 Delivery O2 Flow Rate FiO2 01/11/17 12:34 73 01/11/17 11:44 97.2 19 118/56 97 01/11/17 08:25 Nasal Cannula 2.0 01/10/17 03:17 28 Intake and Output 01/10/17 01/10/17 01/11/17 15:00 23:00 07:00 Intake Total 765 ml 650 ml 30 ml Output Total 450 ml 750 ml 450 ml Balance 315 ml -100 ml -420 ml Exam Physical exam General: Patient is laying in bed and answers questions appropriately Mentation: Patient is alert and oriented 4, Head: Normocephalic atraumatic Eyes: EOMI, pupils reactive to light Neck: Supple, nontender, midline Respiratory: coarse to auscultation bilaterally Cardiovascular: regular rate, no obvious murmurs Gastrointestinal: mildly tender to palpation, bowel sounds heard. Neurological: Moves all extremities spontaneously Skin: multiple lesions surrounding body, some draining. Results Result Diagram: 01/11/17 0402 01/11/17 0402 Results 24 hrs Laboratory Tests Test 01/10/17 17:00 01/11/17 04:02 01/11/17 10:10 Osmolality 264 L White Blood Count 11.1 #H Red Blood Count 3.75 L Hemoglobin 10.7 L Hematocrit 31.4 L Mean Corpuscular Volume 83.7 Mean Corpuscular Hemoglobin 28.5 L Mean Corpuscular Hemoglobin Concent 34.1 Red Cell Distribution Width 16.1 H Platelet Count 122 #L Mean Platelet Volume 9.9 Neutrophils % 96.9 H Lymphocytes % 0.8 L Monocytes % 1.7 Eosinophils % 0.0 Basophils % 0.1 Nucleated Red Blood Cells % 0.0 Neutrophils # 10.7 H Lymphocytes # 0.1 L Monocytes # 0.2 L Eosinophils # 0.0 Basophils # 0.0 Nucleated Red Blood Cells # 0.0 Sodium Level 129 L Potassium Level 3.7 Chloride Level 93 L Carbon Dioxide Level 24 Anion Gap 16 Blood Urea Nitrogen 15 Creatinine 0.71 Glucose Level 118 Calcium Level 7.2 L Phosphorus Level 3.5 Magnesium Level 1.9 Random Cortisol 21.8 Vancomycin Level Trough 18.0 Prothrombin Time 23.6 H Prothrombin Time Ratio 1.8 INR International Normalized Ratio 2.08 Activated Partial Thromboplast Time 54.6 H Medications Medications Current Medications Docusate Sodium (Colace) 100 mg Q12H PRN PO CONSTIPATION; Start 01/09/17 at 19: 30 Magnesium Hydroxide (Milk Of Mag) 30 ml DAILY PRN PO CONSTIPATION; Start at 19:30 Sodium Biphosphate/ Sodium Phosphate (Fleet Enema) 133 ml DAILY PRN [place] CONSTIPATION; Start 01/09/17 at 19:30 Pantoprazole (Protonix Tab) 40 mg DAILY@06 PO Last administered on 01/11/17 05: 53; Admin Dose 40 MG; Start 01/10/17 at 06:00 Heparin Sodium (Porcine) 5000 unit 5,000 unit Q12 SC Last administered on 09:16; Admin Dose 5,000 UNIT; Start 01/09/17 at 21:00 Piperacillin Sod/ Tazobactam Sod (Zosyn 3.375gm/ 100 ml (Pmx)) 100 ml @ 200 mls /hr Q6 IVPB Last administered on 01/11/17 13:04; Admin Dose 200 MLS/HR; Start 01/10/17 at 00:00 Vancomycin HCl (Vanco Iv Per Pharmacy) VANCOMYCIN PER PHARMACY NOTE XX ; Start 01/09/17 at 19:30 Nitroglycerin (Nitroglycerin (Sl Tab) 0.4 Mg) 1 tab Q5M PRN SL ANGINA; Start at 19:30 Acyclovir (Zovirax) 400 mg BID PO Last administered on 01/11/17 08:23; Admin Dose 400 MG; Start 01/09/17 at 21:00 Metoprolol Succinate (Toprol Xl) 25 mg QHS PO ; Start 01/09/17 at 21:00 Trimethoprim/ Sulfamethoxazole (Bactrim (Ds)) 1 tab DAILY PO Last administered on 01/11/17 08:23; Admin Dose 1 TAB; Start 01/10/17 at 09:00 [facility] This patient aranda... PRN PRN XX WOUND CARE; Start 01/10/17 at 03:30 Hydromorphone HCl (Dilaudid ORTHODONTIST) 1.0 MG/HR CONTINUOUS RATE .... Q4PCA IV Last administered on 01/11/17 15:27; Admin Dose 6 MG; Start 01/10/17 at 15:30 Ondansetron HCl (Zofran Inj) 4 mg Q6 IV Last administered on 01/11/17 12:03; Admin Dose 4 MG; Start 01/10/17 at 15:30 Methylprednisolone Sodium Succinate 60 mg 60 mg Q6 IV Last administered on 12:11; Admin Dose 60 MG; Start 01/10/17 at 18:00 Acetaminophen (Ofirmev 1000mg/ 100ml Iv) 100 ml @ 400 mls/hr Q6 IVPB Last administered on 01/11/17 12:18; Admin Dose 400 MLS/HR; Start 01/10/17 at 16:30 IV Flush 10 ml 10 ml PRN PRN IV IV PROTOCOL; Start 01/10/17 at 20:30 Sodium Chloride 1,000 ml @ 50 mls/hr Q20H IV Last administered on 01/11/17 09: 37; Admin Dose 50 MLS/HR; Start 01/11/17 at 09:00 Vancomycin HCl/ Sodium Chloride (Vancocin/NS) 250 ml @ 83.333 mls/ hr Q8H IVPB Last administered on 01/11/17t 15:20; Admin Dose 83.333 MLS/HR; Start 01/11/17 at 13:00 Miscellaneous Information (*Rx Drug Level Order Reminder*) VANCOMYCIN TROUGH 01/12 AT 1200 ONCE ONCE XX ; Start 01/12/17 at 12:00; Stop 01/12/17 at 12:01 YAO RAHMAN Jan 11, 2017 15:40
--- NOTE | 2017-01-11 18:58 | CONS ---
Date/Time of Note Date/Time of Note DATE: 01/11/17 TIME: 18:57 Assessment/Plan Assessment/Plan Chief Complaint/Hosp Course Anaplastic B-cell Lymphoma pt was dx'd with lymphoma a year and half ago , it turned into an aggressive type. His last chemo was a month ago and hadn't had since due to experiencing similar presenting symptoms. record from pt's oncologist Kain Wisdom - P LEUKOPENIA IN PT WITH HNL ON CHEMO AND WITH SEPTIC PICTURE MONITOR BLOOD COUNT CLOSELY SUPPORT WITH NEUPOGEN Sepsis 2/2 PNA - abx, IVF - f/u culture results - ID Abd Pain with N/V: 2/2 known lymphoma - pain mgmt - Anti-emetics Hyponatremia and Hypokalemia: 2/2 vomiting - NS IVF - replete K+ as needed Presumed RAMU: likely pre-renal 2/2 vomiting - cont IVF for now Problems: Consultation Date/Type/Reason Admit Date/Time Jan 09, 2017 at 19:08 Initial Consult Date 01/10/17 Referring Provider: YAO RAHMAN 24 HR Interval Summary Free Text/Dictation all noted d/w RN Exam/Review of Systems Vital Signs Vitals Vital Signs Date Time Temp Pulse Resp B/P Pulse Ox O2 Delivery O2 Flow Rate FiO2 01/11/17 17:19 2.0 28 01/11/17 16:20 81 01/11/17 15:33 98.0 20 102/55 96 01/11/17 08:25 Nasal Cannula Intake and Output 01/10/17 01/10/17 01/11/17 15:00 23:00 07:00 Intake Total 765 ml 650 ml 30 ml Output Total 450 ml 750 ml 450 ml Balance 315 ml -100 ml -420 ml Exam Constitutional: distress, other (vomiting) Head: atraumatic, normocephalic Eyes: PERRL Respiratory: diminished breath sounds Cardiovascular: other (tachycardic with regular rhythm) Gastrointestinal: soft, tender Extremities: normal pulses Skin: other (there are several nodules in different part of his body, some necrosing (worst on his buttocks) and also left forearm) Results Result Diagram: 01/11/17 0402 01/11/17 0402 Results 24 hrs Laboratory Tests Test 01/11/17 04:02 01/11/17 10:10 White Blood Count 11.1 #H Red Blood Count 3.75 L Hemoglobin 10.7 L Hematocrit 31.4 L Mean Corpuscular Volume 83.7 Mean Corpuscular Hemoglobin 28.5 L Mean Corpuscular Hemoglobin Concent 34.1 Red Cell Distribution Width 16.1 H Platelet Count 122 #L Mean Platelet Volume 9.9 Neutrophils % 96.9 H Lymphocytes % 0.8 L Monocytes % 1.7 Eosinophils % 0.0 Basophils % 0.1 Nucleated Red Blood Cells % 0.0 Neutrophils # 10.7 H Lymphocytes # 0.1 L Monocytes # 0.2 L Eosinophils # 0.0 Basophils # 0.0 Nucleated Red Blood Cells # 0.0 Sodium Level 129 L Potassium Level 3.7 Chloride Level 93 L Carbon Dioxide Level 24 Anion Gap 16 Blood Urea Nitrogen 15 Creatinine 0.71 Glucose Level 118 Calcium Level 7.2 L Phosphorus Level 3.5 Magnesium Level 1.9 Random Cortisol 21.8 Vancomycin Level Trough 18.0 Prothrombin Time 23.6 H Prothrombin Time Ratio 1.8 INR International Normalized Ratio 2.08 Activated Partial Thromboplast Time 54.6 H Medications Medications Current Medications Docusate Sodium (Colace) 100 mg Q12H PRN PO CONSTIPATION; Start 01/09/17 at 19: 30 Magnesium Hydroxide (Milk Of Mag) 30 ml DAILY PRN PO CONSTIPATION; Start at 19:30 Sodium Biphosphate/ Sodium Phosphate (Fleet Enema) 133 ml DAILY PRN [place] CONSTIPATION; Start 01/09/17 at 19:30 Pantoprazole (Protonix Tab) 40 mg DAILY@06 PO Last administered on 01/11/17 05: 53; Admin Dose 40 MG; Start 01/10/17 at 06:00 Heparin Sodium (Porcine) 5000 unit 5,000 unit Q12 SC Last administered on 09:16; Admin Dose 5,000 UNIT; Start 01/09/17 at 21:00 Piperacillin Sod/ Tazobactam Sod (Zosyn 3.375gm/ 100 ml (Pmx)) 100 ml @ 200 mls /hr Q6 IVPB Last administered on 01/11/17 18:16; Admin Dose 200 MLS/HR; Start 01/10/17 at 00:00 Vancomycin HCl (Vanco Iv Per Pharmacy) VANCOMYCIN PER PHARMACY NOTE XX ; Start 01/09/17 at 19:30 Nitroglycerin (Nitroglycerin (Sl Tab) 0.4 Mg) 1 tab Q5M PRN SL ANGINA; Start at 19:30 Acyclovir (Zovirax) 400 mg BID PO Last administered on 01/11/17 08:23; Admin Dose 400 MG; Start 01/09/17 at 21:00 Metoprolol Succinate (Toprol Xl) 25 mg QHS PO ; Start 01/09/17 at 21:00 Trimethoprim/ Sulfamethoxazole (Bactrim (Ds)) 1 tab DAILY PO Last administered on 01/11/17 08:23; Admin Dose 1 TAB; Start 01/10/17 at 09:00 Miscellaneous Information (Pending [facility] Order For Wound Care) This patient aranda... PRN PRN XX WOUND CARE; Start 01/10/17 at 03:30 Hydromorphone HCl (Dilaudid BURLESQUE DANCER) 1.0 MG/HR CONTINUOUS RATE .... Q4PCA IV Last administered on 01/11/17 15:27; Admin Dose 6 MG; Start 01/10/17 at 15:30 Ondansetron HCl (Zofran Inj) 4 mg Q6 IV Last administered on 01/11/17 18:09; Admin Dose 4 MG; Start 01/10/17 at 15:30 Methylprednisolone Sodium Succinate 60 mg 60 mg Q6 IV Last administered on 18:13; Admin Dose 60 MG; Start 01/10/17 at 18:00 Acetaminophen (Ofirmev 1000mg/ 100ml Iv) 100 ml @ 400 mls/hr Q6 IVPB Last administered on 01/11/17 18:03; Admin Dose 400 MLS/HR; Start 01/10/17 at 16:30 IV Flush 10 ml 10 ml PRN PRN IV IV PROTOCOL; Start 01/10/17 at 20:30 Sodium Chloride 1,000 ml @ 50 mls/hr Q20H IV Last administered on 01/11/17 09: 37; Admin Dose 50 MLS/HR; Start 01/11/17 at 09:00 Vancomycin HCl/ Sodium Chloride (Vancocin/NS) 250 ml @ 83.333 mls/ hr Q8H IVPB Last administered on 01/11/17 15:20; Admin Dose 83.333 MLS/HR; Start 01/11/17 at 13:00 Miscellaneous Information (*Rx Drug Level Order Reminder*) VANCOMYCIN TROUGH 01/12 AT 1200 ONCE ONCE XX ; Start 01/12/17 at 12:00; Stop 01/12/17 at 12:01 MOIRA BIRMINGHAM MD Jan 11, 2017 18:58
--- NOTE | 2017-01-11 20:05 | CONS ---
Date/Time of Note Date/Time of Note DATE: 01/11/17 TIME: 19:53 Assessment/Plan Assessment/Plan Chief Complaint/Hosp Course ID PROGRESS NOTE CURRENT ABX=> Bactrim po + Vanco IV + Zosyn 24H INTERVAL SUMMARY * A/A/O-> Feeling better, very polite, no new issues, no complaints, N/V resolved, denies dyspnea * RINE CULTURE Final Organism 1 ENTEROCOCCUS SPECIES COLONY COUNT 10,000 - 20,000 CFU/ml ENT SPS M.I.C. 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 Nausea/Vomiting -> ABD pain due to lymphoma 4. Presumed RAMU: likely pre-renal 2/2 vomiting 5. Hyponatremia and Hypokalemia: 2/2 vomiting 6. Enterococcal UTI -> Low colony count ( ? ) MRSA Nares -> will order INVASIVES: RUEXT PICC ABX ALLERGY: EGG/MILK CURRENT ABX: Bactrim po + Vanco IV + Zosyn ID PLAN 1. Continue ABX -- patient is feeling better . Problems: Consultation Date/Type/Reason Admit Date/Time Jan 09, 2017 at 19:08 Initial Consult Date 01/10/17 Referring Provider: YAO RAHMAN Exam/Review of Systems Vital Signs Vitals Vital Signs Date Time Temp Pulse Resp B/P Pulse Ox O2 Delivery O2 Flow Rate FiO2 01/11/17 17:19 2.0 28 01/11/17 16:20 81 01/11/17 15:33 98.0 20 102/55 96 01/11/17 08:25 Nasal Cannula Intake and Output 01/10/17 01/10/17 01/11/17 15:00 23:00 07:00 Intake Total 765 ml 650 ml 30 ml Output Total 450 ml 750 ml 450 ml Balance 315 ml -100 ml -420 ml Results Result Diagram: 01/11/17 0402 01/11/17 0402 Results 24 hrs Laboratory Tests Test 01/11/17 04:02 01/11/17 10:10 White Blood Count 11.1 #H Red Blood Count 3.75 L Hemoglobin 10.7 L Hematocrit 31.4 L Mean Corpuscular Volume 83.7 Mean Corpuscular Hemoglobin 28.5 L Mean Corpuscular Hemoglobin Concent 34.1 Red Cell Distribution Width 16.1 H Platelet Count 122 #L Mean Platelet Volume 9.9 Neutrophils % 96.9 H Lymphocytes % 0.8 L Monocytes % 1.7 Eosinophils % 0.0 Basophils % 0.1 Nucleated Red Blood Cells % 0.0 Neutrophils # 10.7 H Lymphocytes # 0.1 L Monocytes # 0.2 L Eosinophils # 0.0 Basophils # 0.0 Nucleated Red Blood Cells # 0.0 Sodium Level 129 L Potassium Level 3.7 Chloride Level 93 L Carbon Dioxide Level 24 Anion Gap 16 Blood Urea Nitrogen 15 Creatinine 0.71 Glucose Level 118 Calcium Level 7.2 L Phosphorus Level 3.5 Magnesium Level 1.9 Random Cortisol 21.8 Vancomycin Level Trough 18.0 Prothrombin Time 23.6 H Prothrombin Time Ratio 1.8 INR International Normalized Ratio 2.08 Activated Partial Thromboplast Time 54.6 H Medications Medications Current Medications Docusate Sodium (Colace) 100 mg Q12H PRN PO CONSTIPATION; Start 01/09/17 at 19: 30 Magnesium Hydroxide (Milk Of Mag) 30 ml DAILY PRN PO CONSTIPATION; Start at 19:30 Sodium Biphosphate/ Sodium Phosphate (Fleet Enema) 133 ml DAILY PRN [place] CONSTIPATION; Start 01/09/17 at 19:30 Pantoprazole (Protonix Tab) 40 mg DAILY@06 PO Last administered on 01/11/17t 05: 53; Admin Dose 40 MG; Start 01/10/17 at 06:00 Heparin Sodium (Porcine) 5000 unit 5,000 unit Q12 SC Last administered on 09:16; Admin Dose 5,000 UNIT; Start 01/09/17 at 21:00 Piperacillin Sod/ Tazobactam Sod (Zosyn 3.375gm/ 100 ml (Pmx)) 100 ml @ 200 mls /hr Q6 IVPB Last administered on 01/11/17 18:16; Admin Dose 200 MLS/HR; Start 01/10/17 at 00:00 Vancomycin HCl (Vanco Iv Per Pharmacy) VANCOMYCIN PER PHARMACY NOTE XX ; Start 01/09/17 at 19:30 Nitroglycerin (Nitroglycerin (Sl Tab) 0.4 Mg) 1 tab Q5M PRN SL ANGINA; Start at 19:30 Acyclovir (Zovirax) 400 mg BID PO Last administered on 01/11/17 08:23; Admin Dose 400 MG; Start 01/09/17 at 21:00 Metoprolol Succinate (Toprol Xl) 25 mg QHS PO ; Start 01/09/17 at 21:00 Trimethoprim/ Sulfamethoxazole (Bactrim (Ds)) 1 tab DAILY PO Last administered on 01/11/17 08:23; Admin Dose 1 TAB; Start 01/10/17 at 09:00 Miscellaneous Information (Pending [facility] Order For Wound Care) This patient aranda... PRN PRN XX WOUND CARE; Start 01/10/17 at 03:30 Hydromorphone HCl (Dilaudid ROBOTICS SPECIALIST) 1.0 MG/HR CONTINUOUS RATE .... Q4PCA IV Last administered on 01/11/17 15:27; Admin Dose 6 MG; Start 01/10/17 at 15:30 Ondansetron HCl (Zofran Inj) 4 mg Q6 IV Last administered on 01/11/17 18:09; Admin Dose 4 MG; Start 01/10/17 at 15:30 Methylprednisolone Sodium Succinate 60 mg 60 mg Q6 IV Last administered on 18:13; Admin Dose 60 MG; Start 01/10/17 at 18:00 Acetaminophen (Ofirmev 1000mg/ 100ml Iv) 100 ml @ 400 mls/hr Q6 IVPB Last administered on 01/11/17 18:03; Admin Dose 400 MLS/HR; Start 01/10/17 at 16:30 IV Flush 10 ml 10 ml PRN PRN IV IV PROTOCOL; Start 01/10/17 at 20:30 Sodium Chloride 1,000 ml @ 50 mls/hr Q20H IV Last administered on 01/11/17 09: 37; Admin Dose 50 MLS/HR; Start 01/11/17 at 09:00 Vancomycin HCl/ Sodium Chloride (Vancocin/NS) 250 ml @ 83.333 mls/ hr Q8H IVPB Last administered on 01/11/17 15:20; Admin Dose 83.333 MLS/HR; Start 01/11/17 at 13:00 Miscellaneous Information (*Rx Drug Level Order Reminder*) VANCOMYCIN TROUGH 01/12 AT 1200 ONCE ONCE XX ; Start 01/12/17 at 12:00; Stop 01/12/17 at 12:01 AARON BELLAMY NP Jan 11, 2017 20:04
[2017-01-11] MEDS: METOPROLOL (XL) 25 MG TAB PO SCH (22:25)
[2017-01-12] VITALS (11 sets, daily range): BP systolic 110–140; BP diastolic 57–69; PULSE 64–77; RESP 20–21
[2017-01-12] MEDS: ACETAMINOPHEN 1000MG/100ML IV 100 ML IVPB SCH ×4 (00:14→17:54)
[2017-01-12] MEDS: METHYLPREDNISOLONE 125 MG INJ IV SCH ×3 (00:14→12:06)
[2017-01-12] MEDS: PIPER-TAZO 3.375 GM IV (PMX) 100 ML IVPB SCH ×4 (00:15→17:54)
[2017-01-12] MEDS: ONDANSETRON 4 MG INJ IV SCH ×4 (00:15→17:54)
[2017-01-12] MEDS: HYDROmorphONE 0.2 MG/ML PCA IV SCH ×5 (01:32→20:38)
[2017-01-12] MEDS: PANTOPRAZOLE (EC) 40 MG TAB PO SCH (05:30)
[2017-01-12] MEDS: SOD CHLORIDE 0.9% 1,000 ML IV SCH ×2 (05:32→18:24)
[2017-01-12] MEDS: VANCOMYCIN 1.25 GM in SOD CHLORIDE 0.9% 250 ML IVPB SCH ×3 (06:33→20:32)
[2017-01-12 06:48] LABS: ABNORMAL IP MESSAGE 1; BASOPHILS % 0.1 % (0.0-2.0); HEMATOCRIT 30.5 % (42.0-52.0); HEMOGLOBIN 10.3 g/dl (14.0-18.0); LYMPHOCYTES # 0.2 10^3/ul (0.8-2.9); LYMPHOCYTES % 1.4 % (15.0-51.0); MEAN CORPUSCULAR HEMOGLOBIN 28.2 pg (29.0-33.0); MEAN CORPUSCULAR HGB CONC 33.8 g/dl (32.0-37.0); MEAN CORPUSCULAR VOLUME 83.6 fl (82.0-101.0); MEAN PLATELET VOLUME 11.5 fl (7.4-10.4); MONOCYTE # 0.3 10^3/ul (0.3-0.9); MONOCYTES % 2.9 % (0.0-11.0); NEUTROPHIL # 10.3 10^3/ul (1.6-7.5); NEUTROPHILS % 94.3 % (39.0-77.0); PLATELET COUNT 106 10^3/UL (140-415); POSITIVE DIFF @See below; RED BLOOD COUNT 3.65 10^6/ul (4.70-6.10); RED CELL DISTRIBUTION WIDTH 16.5 % (11.5-14.5); WHITE BLOOD COUNT 10.9 10^3/ul (4.8-10.8)
[2017-01-12 07:19] LABS: CALCIUM 6.8 mg/dl (8.4-10.2); CREATININE 0.53 mg/dl (0.61-1.24); POTASSIUM 3.3 mmol/L (3.5-5.1)
[2017-01-12 07:33] LABS: MAGNESIUM 1.9 mg/dl (1.7-2.5); PHOSPHORUS 2.4 mg/dl (2.5-4.9)
[2017-01-12] MEDS: TRIMETHOPRIM/SULFAMETHOX (DS) TAB PO SCH (08:20)
[2017-01-12] MEDS: ACYCLOVIR 400 MG TAB PO SCH (08:20)
[2017-01-12] MEDS: HEPARIN 5,000 UNIT/0.5 ML VIAL SC SCH ×2 (08:22→20:39)
[2017-01-12] MEDS ORDERED: POTASSIUM CHLORIDE 250 ML IVPB ONE (09:00)
[2017-01-12] MEDS ORDERED: POTASSIUM PHOSPHATE 20 MEQ in SOD CHLORIDE 0.9% 250 ML IVPB ONE (10:30)
--- NOTE | 2017-01-12 10:37 | PN ---
DATE: 01/12/2017 SUBJECTIVE DATA: The patient is stable pending biopsy today. No overnight events. OBJECTIVE DATA: VITAL SIGNS: Blood pressure is 111/61, respirations 20, pulse 72, temperature 97.6. HEENT: Head is normocephalic. NECK: Supple. HEART: Regular rate. LUNGS: Diminished breath sounds at the base. ABDOMEN: Soft, nontender to palpation. No rebound or guarding. EXTREMITIES: Negative for clubbing, cyanosis, no edema. DERMATOLOGIC: Clean. No rashes. MUSCULOSKELETAL: No joint effusion. NEUROLOGIC: No change in exam. MEDICATIONS: Reviewed. LABORATORY AND DIAGNOSTIC DATA: Sodium 130, potassium 3.3, chloride 95, BUN 12, creatinine 0.53. White count 10.9, hemoglobin 10.3, hematocrit 30.5, platelet count is 106. ASSESSMENT AND PLAN: 1. Hyponatremia, etiology is multifactorial secondary to hypokalemia, volume depletion. The patient's sodium levels have been improving with IV fluids. At this point, continue current treatment plan. Continue to correct underlying hypokalemia. 2. Hypokalemia. Replete potassium chloride. 3. Nonoliguric acute kidney injury. Etiology secondary to hemodynamics. Renal function has improved. Continue to monitor. 4. Assessment of bone disorder. The patient is hypophosphatemic. Replete potassium phosphate. 5. Abdominal pain. 6. Nausea, vomiting. Continue medical management. 7. Sepsis secondary to pneumonia chief antibiotic regimen. 8. Anaplastic T-cell lymphoma. The patient is being followed by Oncology. Repeat biopsy is pending. Dictated By: Rios Michelle DO /[email or web address]/[email or web address] /Document#: [id number]
--- NOTE | 2017-01-12 12:28 | CONS ---
Date/Time of Note Date/Time of Note DATE: 01/12/17 TIME: 12:22 Assessment/Plan Assessment/Plan Additional Assessment/Plan Anaplastic T-cell lymph Severe abdominal pain secondary to the above Skin lesions Anterior wall mass Pain [id number] 1. Multiple foci of mass-like infiltration are seen within cutaneous and subcutaneous tissues of the chest, concerning for infiltrative neoplastic process such as lymphoma. Consider tissue sampling for further evaluation. 2. Areas of pulmonary consolidation are identified bilaterally, greater on the right, possibly representing multilobar pneumonia, though additional neoplastic infiltration is not excluded. 3. Hepatic steatosis and hepatosplenomegaly are noted. Areas of poorly defined mass-like infiltration are identified within the right hepatic lobe, as described above, further concerning for neoplasm. 4. Right-sided PICC line is in place. MPRESSION: Evaluation of the abdominal viscera is limited without intravenous contrast. 1. No acute abdominal pathology. 2. Multiple small consolidations within the right lower lobe. Underlying nodules are not excluded. Dedicated CT of the chest as well as follow-up imaging is recommended to document resolution as clinically warranted. 3. Subcutaneous density within the anterior abdominal wall which may represent a subcutaneous hematoma versus other subcutaneous lesion. There are also more extensive subcutaneous densities along the left flank and back subcutaneous/ skin. Direct inspection may be performed as clinically warranted. Further findings as detailed above. Currently better on STREET SWEEPER OPERATOR Dilaudid, relatively low dose for patient of his size. Although he appears somewhat sedated at this time he states his pain is under better control and asked that I do not cut back on his pain medications. He is to have a biopsy of the intra-abdominal mass done today. There are no major side effects associated with his current pain control medications including nausea vomiting dizziness diplopia disorientation. We will continue with current steroids and Tylenol scheduled. Consultation Date/Type/Reason Admit Date/Time Jan 09, 2017 at 19:08 Initial Consult Date 01/10/17 Referring Provider: YAO RAHMAN Exam/Review of Systems Vital Signs Vitals Vital Signs Date Time Temp Pulse Resp B/P Pulse Ox O2 Delivery O2 Flow Rate FiO2 01/12/17 11:44 98.1 79 21 140/69 96 01/12/17 07:45 2.0 01/11/17 20:00 Nasal Cannula 01/11/17 17:19 28 Intake and Output 01/11/17 01/11/17 01/12/17 14:59 22:59 06:59 Intake Total 200 ml 1500 ml Output Total 1000 ml 850 ml Balance 200 ml 500 ml -850 ml Exam Constitutional: frail, obese Psych: anxiety, No confusion, No depression, No nl mood/affect, No no complaints, No other, No suicidal Eyes: EOMI, PERRL, nl conjunctiva, nl lids, nl sclera Respiratory: clear to auscultation, normal air movement Cardiovascular: nl pulses, regular rate and rhythm Neurological: LACER AND TIER II-XII intact, nl mental status, nl speech, nl strength Results Result Diagram: 01/12/1760401/12/17604 Results 24 hrs Laboratory Tests Test 01/12/17 06:05 White Blood Count 10.9 H Red Blood Count 3.65 L Hemoglobin 10.3 L Hematocrit 30.5 L Mean Corpuscular Volume 83.6 Mean Corpuscular Hemoglobin 28.2 L Mean Corpuscular Hemoglobin Concent 33.8 Red Cell Distribution Width 16.5 H Platelet Count 106 L Mean Platelet Volume 11.5 H Neutrophils % 94.3 H Lymphocytes % 1.4 L Monocytes % 2.9 Eosinophils % 0.0 Basophils % 0.1 Nucleated Red Blood Cells % 0.0 Neutrophils # 10.3 H Lymphocytes # 0.2 L Monocytes # 0.3 Eosinophils # 0.0 Basophils # 0.0 Nucleated Red Blood Cells # 0.0 Sodium Level 132 L Potassium Level 3.3 L Chloride Level 95 L Carbon Dioxide Level 26 Anion Gap 14 Blood Urea Nitrogen 12 Creatinine 0.53 L Glucose Level 136 Calcium Level 6.8 L Phosphorus Level 2.4 #L Magnesium Level 1.9 Medications Medications Current Medications Docusate Sodium (Colace) 100 mg Q12H PRN PO CONSTIPATION; Start 01/09/17 at 19: 30 Magnesium Hydroxide (Milk Of Mag) 30 ml DAILY PRN PO CONSTIPATION; Start at 19:30 Sodium Biphosphate/ Sodium Phosphate (Fleet Enema) 133 ml DAILY PRN [place] CONSTIPATION; Start 01/09/17 at 19:30 Pantoprazole (Protonix Tab) 40 mg DAILY@06 PO Last administered on 01/12/17 05: 30; Admin Dose 40 MG; Start 01/10/17 at 06:00 Heparin Sodium (Porcine) 5000 unit 5,000 unit Q12 SC Last administered on 09:16; Admin Dose 5,000 UNIT; Start 01/09/17 at 21:00 Piperacillin Sod/ Tazobactam Sod (Zosyn 3.375gm/ 100 ml (Pmx)) 100 ml @ 200 mls /hr Q6 IVPB Last administered on 01/12/17 05:31; Admin Dose 200 MLS/HR; Start 01/10/17 at 00:00 Vancomycin HCl (Vanco Iv Per Pharmacy) VANCOMYCIN PER PHARMACY NOTE XX ; Start 01/09/17 at 19:30 Nitroglycerin (Nitroglycerin (Sl Tab) 0.4 Mg) 1 tab Q5M PRN SL ANGINA; Start at 19:30 Acyclovir (Zovirax) 400 mg BID PO Last administered on 01/12/17 08:20; Admin Dose 400 MG; Start 01/09/17 at 21:00 Metoprolol Succinate (Toprol Xl) 25 mg QHS PO Last administered on 01/11/17 22: 25; Admin Dose 25 MG; Start 01/09/17 at 21:00 Trimethoprim/ Sulfamethoxazole (Bactrim (Ds)) 1 tab DAILY PO Last administered on 01/12/17 08:20; Admin Dose 1 TAB; Start 01/10/17 at 09:00 Miscellaneous Information (Pending [facility] Order For Wound Care) This patient aranda... PRN PRN XX WOUND CARE; Start 01/10/17 at 03:30 Hydromorphone HCl (Dilaudid STREET SWEEPER OPERATOR) 1.0 MG/HR CONTINUOUS RATE .... Q4PCA IV Last administered on 01/12/17 10:06; Admin Dose 6 MG; Start 01/10/17 at 15:30 Ondansetron HCl (Zofran Inj) 4 mg Q6 IV Last administered on 01/12/17 05:30; Admin Dose 4 MG; Start 01/10/17 at 15:30 Methylprednisolone Sodium Succinate 60 mg 60 mg Q6 IV Last administered on 05:30; Admin Dose 60 MG; Start 01/10/17 at 18:00 Acetaminophen (Ofirmev 1000mg/ 100ml Iv) 100 ml @ 400 mls/hr Q6 IVPB Last administered on 01/12/17 05:30; Admin Dose 400 MLS/HR; Start 01/10/17 at 16:30 IV Flush 10 ml 10 ml PRN PRN IV IV PROTOCOL; Start 01/10/17 at 20:30 Sodium Chloride 1,000 ml @ 50 mls/hr Q20H IV Last administered on 01/12/17 05: 32; Admin Dose 50 MLS/HR; Start 01/11/17 at 09:00 Vancomycin HCl 1.25 gm/Sodium Chloride 250 ml @ 83.333 mls/ hr Q8H IVPB Last administered on 01/12/17 06:33; Admin Dose 83.333 MLS/HR; Start 01/11/17 at 13:00 Potassium Chloride 250 ml @ 62.5 mls/hr ONCE ONCE IVPB Last administered on 10:10; Admin Dose 62.5 MLS/HR; Start 01/12/17 at 09:00; Stop 01/12/17 at 12:59 Potassium Phosphate/Sodium Chloride (K Phos (Meq)/NS) 254.5455 ml @ 63.636 m... ONCE ONCE IVPB Last administered on 01/12/17 11:09; Admin Dose 63.636 MLS /HR; Start 01/12/17 at 10:30; Stop 01/12/17 at 14:29 SHELBY WHITE Jan 12, 2017 12:28
[2017-01-12] MEDS ORDERED: DIPHENHYDRAMINE 50 MG INJ ONE (13:07)
[2017-01-12] MEDS ORDERED: LIDOCAINE 1% (MDV) 20 ML INJ ONE (13:07)
[2017-01-12 13:33] LABS: MICROALBUMIN 2.5 mg/dL
--- NOTE | 2017-01-12 14:34 | RADRPT ---
PROCEDURE: CT guided left flank subcutaneous nodule biopsy. CLINICAL INDICATION: Left flank subcutaneous nodule. TECHNIQUE: Informed consent was obtained. The procedure, risks, benefits, complications and alternatives were e xplained to the patient. Risks including bleeding and infection were explained. The patient understo od and was willing to proceed. A procedural pause was performed. The patient's name, date of , and procedure to be performed were verified. One or more of the following dose reduction techniqu es were used: Automated exposure control, adjustment of the mA and/or kV according to patient size, use of iterative reconstruction technique. Using local anesthetic, sterile technique and CT guidance, an 18-gauge automated core biopsy needle was used to biopsy the left flank subcutaneous nodule. Multiple passes were made. Adequate tissue was obtained according to the pathologist present during the procedure. The needle was removed. A postprocedural scan was performed. A dressing was applied. The patient tolerated procedure well. COMPARISON: None. FINDINGS: Initial images demonstrate the tip of the needle at the edge of the lesion in question. Post biopsy images demonstrate no immediate complication. IMPRESSION: 1. Successful CT guided biopsy of left flank subcutaneous nodule. RPTAT: QQ .Portillo Heart MD, Date Time Electronically viewed and signed by .Portillo Heart MD, MD on 01/12/2017 14:33 .R/
--- NOTE | 2017-01-12 15:02 | PN ---
Date/Time of Note Date/Time of Note DATE: 01/12/17 TIME: 15:01 Assessment/Plan VTE Prophylaxis VTE Prophylaxis Intervention: ambulation Lines/Catheters IV Catheter Type (from Nrs): PICC Line Central line still needed: Yes Urinary Cath still in place: No Assessment/Plan Chief Complaint/Hosp Course Patient is a 31-year-old male with a past medical history of large B- cell lymphoma presented to the ED complaining of abdominal pain, nausea, vomiting, fever 2 weeks duration. Patient's last chemotherapy was approximately 1 month ago. Assessment and plan Sepsis, secondary pneumonia, resolving Abdominal pain Nausea Vomiting Hyponatremia UTI Hypokalemia Acute kidney injury B-cell lymphoma Lactic acidosis Plan -Patient's nausea and vomiting has substantially subsided, attempt to progress to full liquids -PNA/UTI, on abx. -Palliative care on board, controlling pain -Patient does have an oncologist, however oncology does not have privileges here , oncology has been consulted -Ultrasound biopsy ordered, patient needs normalized INR, will transfuse fresh frozen plasma right before the procedure today -CT of the abdomen pelvis and chest show multiple areas of nodules likely lymphoma, also possible pneumonia, patient on antibiotics -Multifactorial reasons for electrolyte derangement, all likely secondary to intractable nausea and vomiting, patient's labs are improving slowly, nephrology on board. DISPO: control nausea/vomiting so patient can be discharged and continue treatment for lymphoma JOSSELIN Problems: Subjective 24 Hr Interval Summary Free Text/Dictation nausea is improved today Exam/Review of Systems Vital Signs Vitals Vital Signs Date Time Temp Pulse Resp B/P Pulse Ox O2 Delivery O2 Flow Rate FiO2 01/12/17 12:30 77 01/12/17 11:44 98.1 21 140/69 96 01/12/17 08:15 Nasal Cannula 2.0 01/11/17 17:19 28 Intake and Output 01/11/17 01/11/17 01/12/17 15:00 23:00 07:00 Intake Total 200 ml 1500 ml Output Total 1000 ml 850 ml Balance 200 ml 500 ml -850 ml Exam Physical exam General: Patient is laying in bed and answers questions appropriately Mentation: Patient is alert and oriented 4, Head: Normocephalic atraumatic Eyes: EOMI, pupils reactive to light Neck: Supple, nontender, midline Respiratory: coarse to auscultation bilaterally Cardiovascular: regular rate, no obvious murmurs Gastrointestinal: mildly tender to palpation, bowel sounds heard. Neurological: Moves all extremities spontaneously Skin: multiple lesions surrounding body, some draining. Results Result Diagram: 01/12/1760401/12/17604 Results 24 hrs Laboratory Tests Test 01/12/17 06:05 01/12/17 12:22 White Blood Count 10.9 H Red Blood Count 3.65 L Hemoglobin 10.3 L Hematocrit 30.5 L Mean Corpuscular Volume 83.6 Mean Corpuscular Hemoglobin 28.2 L Mean Corpuscular Hemoglobin Concent 33.8 Red Cell Distribution Width 16.5 H Platelet Count 106 L Mean Platelet Volume 11.5 H Neutrophils % 94.3 H Lymphocytes % 1.4 L Monocytes % 2.9 Eosinophils % 0.0 Basophils % 0.1 Nucleated Red Blood Cells % 0.0 Neutrophils # 10.3 H Lymphocytes # 0.2 L Monocytes # 0.3 Eosinophils # 0.0 Basophils # 0.0 Nucleated Red Blood Cells # 0.0 Sodium Level 132 L Potassium Level 3.3 L Chloride Level 95 L Carbon Dioxide Level 26 Anion Gap 14 Blood Urea Nitrogen 12 Creatinine 0.53 L Glucose Level 136 Calcium Level 6.8 L Phosphorus Level 2.4 #L Magnesium Level 1.9 Vancomycin Level Trough 13.2 Medications Medications Current Medications Docusate Sodium (Colace) 100 mg Q12H PRN PO CONSTIPATION; Start 01/09/17 at 19: 30 Magnesium Hydroxide (Milk Of Mag) 30 ml DAILY PRN PO CONSTIPATION; Start at 19:30 Sodium Biphosphate/ Sodium Phosphate (Fleet Enema) 133 ml DAILY PRN [place] CONSTIPATION; Start 01/09/17 at 19:30 Pantoprazole (Protonix Tab) 40 mg DAILY@06 PO Last administered on 01/12/17 05: 30; Admin Dose 40 MG; Start 01/10/17 at 06:00 Heparin Sodium (Porcine) 5000 unit 5,000 unit Q12 SC Last administered on 09:16; Admin Dose 5,000 UNIT; Start 01/09/17 at 21:00 Piperacillin Sod/ Tazobactam Sod (Zosyn 3.375gm/ 100 ml (Pmx)) 100 ml @ 200 mls /hr Q6 IVPB Last administered on 01/12/17 12:07; Admin Dose 200 MLS/HR; Start 01/10/17 at 00:00 Vancomycin HCl (Vanco Iv Per Pharmacy) VANCOMYCIN PER PHARMACY NOTE XX ; Start 01/09/17 at 19:30 Nitroglycerin (Nitroglycerin (Sl Tab) 0.4 Mg) 1 tab Q5M PRN SL ANGINA; Start at 19:30 Acyclovir (Zovirax) 400 mg BID PO Last administered on 01/12/17 08:20; Admin Dose 400 MG; Start 01/09/17 at 21:00 Metoprolol Succinate (Toprol Xl) 25 mg QHS PO Last administered on 01/11/17 22: 25; Admin Dose 25 MG; Start 01/09/17 at 21:00 Trimethoprim/ Sulfamethoxazole (Bactrim (Ds)) 1 tab DAILY PO Last administered on 01/12/17 08:20; Admin Dose 1 TAB; Start 01/10/17 at 09:00 Miscellaneous Information (Pending [facility] Order For Wound Care) This patient aranda... PRN PRN XX WOUND CARE; Start 01/10/17 at 03:30 Hydromorphone HCl (Dilaudid FIELD REPORTER) 1.0 MG/HR CONTINUOUS RATE .... Q4PCA IV Last administered on 01/12/17 10:06; Admin Dose 6 MG; Start 01/10/17 at 15:30 Ondansetron HCl (Zofran Inj) 4 mg Q6 IV Last administered on 01/12/17 12:06; Admin Dose 4 MG; Start 01/10/17 at 15:30 Methylprednisolone Sodium Succinate 60 mg 60 mg Q6 IV Last administered on 12:06; Admin Dose 60 MG; Start 01/10/17 at 18:00 Acetaminophen (Ofirmev 1000mg/ 100ml Iv) 100 ml @ 400 mls/hr Q6 IVPB Last administered on 01/12/17 12:07; Admin Dose 400 MLS/HR; Start 01/10/17 at 16:30 IV Flush 10 ml 10 ml PRN PRN IV IV PROTOCOL; Start 01/10/17 at 20:30 Sodium Chloride 1,000 ml @ 50 mls/hr Q20H IV Last administered on 01/12/17 05: 32; Admin Dose 50 MLS/HR; Start 01/11/17 at 09:00 Vancomycin HCl/ Sodium Chloride (Vancocin/NS) 250 ml @ 83.333 mls/ hr Q8H IVPB Last administered on 01/12/17 06:33; Admin Dose 83.333 MLS/HR; Start 01/11/17 at 13:00 YAO RAHMAN Jan 12, 2017 15:02
[2017-01-12] MEDS: METOPROLOL (XL) 25 MG TAB PO SCH (20:32)
--- NOTE | 2017-01-12 21:58 | CONS ---
Date/Time of Note Date/Time of Note DATE: 01/12/17 TIME: 21:51 Assessment/Plan Assessment/Plan Chief Complaint/Hosp Course ID PROGRESS NOTE CURRENT ABX=> Bactrim po + Vanco IV #3 + Zosyn #3 24H INTERVAL SUMMARY * s/p 01/12/[address] guided biopsy of left flank subcutaneous nodule. * Afebrile x >48 hours -- spiking fevers >102. on 01/09 & 01/10 * A/A/O-> Feeling better, very polite, no new issues, no complaints, N/V resolved, denies dyspnea * RINE CULTURE Final Organism 1 ENTEROCOCCUS SPECIES COLONY COUNT 10,000 - 20,000 CFU/ml ENT SPS M.I.C. 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 Nausea/Vomiting -> ABD pain due to lymphoma 4. Presumed RAMU: likely pre-renal 2/2 vomiting 5. Hyponatremia and Hypokalemia: 2/2 vomiting 6. Enterococcal UTI -> Low colony count INVASIVES: RUEXT PICC ABX ALLERGY: EGG/MILK CURRENT ABX: Bactrim po + Vanco IV #3 + Zosyn #3 ID PLAN 1. Afebrile >48Hrs, no longer neutropenic 2. FEVERS likely due to early Enterococcal UTI + HCAP 3. If he remains afebrile and WBC remains normal; anticipate DC on Levaquin 750mg PO Daily x 7 days for HCAP [facility] Problems: Consultation Date/Type/Reason Admit Date/Time Jan 09, 2017 at 19:08 Initial Consult Date 01/10/17 Referring Provider: YAO RAHMAN Exam/Review of Systems Vital Signs Vitals Vital Signs Date Time Temp Pulse Resp B/P Pulse Ox O2 Delivery O2 Flow Rate FiO2 01/12/17 20:47 2.0 01/12/17 20:29 71 01/12/17 20:19 97.6 20 110/57 96 01/12/17 08:15 Nasal Cannula 01/11/17 17:19 28 Intake and Output 01/11/17 01/11/17 01/12/17 15:00 23:00 07:00 Intake Total 200 ml 1500 ml Output Total 1000 ml 850 ml Balance 200 ml 500 ml -850 ml Results Result Diagram: 01/12/17 0605 01/12/17 0605 Results 24 hrs Laboratory Tests Test 01/12/17 06:05 01/12/17 12:22 White Blood Count 10.9 H Red Blood Count 3.65 L Hemoglobin 10.3 L Hematocrit 30.5 L Mean Corpuscular Volume 83.6 Mean Corpuscular Hemoglobin 28.2 L Mean Corpuscular Hemoglobin Concent 33.8 Red Cell Distribution Width 16.5 H Platelet Count 106 L Mean Platelet Volume 11.5 H Neutrophils % 94.3 H Lymphocytes % 1.4 L Monocytes % 2.9 Eosinophils % 0.0 Basophils % 0.1 Nucleated Red Blood Cells % 0.0 Neutrophils # 10.3 H Lymphocytes # 0.2 L Monocytes # 0.3 Eosinophils # 0.0 Basophils # 0.0 Nucleated Red Blood Cells # 0.0 Sodium Level 132 L Potassium Level 3.3 L Chloride Level 95 L Carbon Dioxide Level 26 Anion Gap 14 Blood Urea Nitrogen 12 Creatinine 0.53 L Glucose Level 136 Calcium Level 6.8 L Phosphorus Level 2.4 #L Magnesium Level 1.9 Vancomycin Level Trough 13.2 Medications Medications Current Medications Docusate Sodium (Colace) 100 mg Q12H PRN PO CONSTIPATION; Start 01/09/17 at 19: 30 Magnesium Hydroxide (Milk Of Mag) 30 ml DAILY PRN PO CONSTIPATION; Start at 19:30 Sodium Biphosphate/ Sodium Phosphate (Fleet Enema) 133 ml DAILY PRN [place] CONSTIPATION; Start 01/09/17 at 19:30 Pantoprazole (Protonix Tab) 40 mg DAILY@06 PO Last administered on 01/12/17 05: 30; Admin Dose 40 MG; Start 01/10/17 at 06:00 Heparin Sodium (Porcine) 5000 unit 5,000 unit Q12 SC Last administered on 20:39; Admin Dose 5,000 UNIT; Start 01/09/17 at 21:00 Piperacillin Sod/ Tazobactam Sod (Zosyn 3.375gm/ 100 ml (Pmx)) 100 ml @ 200 mls /hr Q6 IVPB Last administered on 01/12/17 17:54; Admin Dose 200 MLS/HR; Start 01/10/17 at 00:00 Vancomycin HCl (Vanco Iv Per Pharmacy) VANCOMYCIN PER PHARMACY NOTE XX ; Start 01/09/17 at 19:30 Nitroglycerin (Nitroglycerin (Sl Tab) 0.4 Mg) 1 tab Q5M PRN SL ANGINA; Start at 19:30 Metoprolol Succinate (Toprol Xl) 25 mg QHS PO Last administered on 01/12/17 20: 32; Admin Dose 25 MG; Start 01/09/17 at 21:00 Trimethoprim/ Sulfamethoxazole (Bactrim (Ds)) 1 tab DAILY PO Last administered on 01/12/17 08:20; Admin Dose 1 TAB; Start 01/10/17 at 09:00 Miscellaneous Information (Pending [facility] Order For Wound Care) This patient aranda... PRN PRN XX WOUND CARE; Start 01/10/17 at 03:30 Hydromorphone HCl (Dilaudid BEEF SPLITTER) 1.0 MG/HR CONTINUOUS RATE .... Q4PCA IV Last administered on 01/12/17 20:38; Admin Dose 6 MG; Start 01/10/17 at 15:30 Ondansetron HCl 4 mg 4 mg Q6 IV Last administered on 01/12/17 17:54; Admin Dose 4 MG; Start 01/10/17 at 15:30 Acetaminophen (Ofirmev 1000mg/ 100ml Iv) 100 ml @ 400 mls/hr Q6 IVPB Last administered on 01/12/17 17:54; Admin Dose 400 MLS/HR; Start 01/10/17 at 16:30 IV Flush 10 ml 10 ml PRN PRN IV IV PROTOCOL; Start 01/10/17 at 20:30 Sodium Chloride 1,000 ml @ 50 mls/hr Q20H IV Last administered on 01/12/17 18: 24; Admin Dose 50 MLS/HR; Start 01/11/17 at 09:00 Vancomycin HCl/ Sodium Chloride (Vancocin/NS) 250 ml @ 83.333 mls/ hr Q8H IVPB Last administered on 01/12/17 20:32; Admin Dose 83.333 MLS/HR; Start 01/11/17 at 13:00 Prednisone (Prednisone) 40 mg DAILY PO ; Start 01/13/17 at 09:00 AARON BELLAMY NP Jan 12, 2017 21:57
--- NOTE | 2017-01-12 23:20 | CONS ---
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 His last chemo was a month ago and hadn't had since due to experiencing similar presenting symptoms. record from pt's oncologist Kain Wisdom - P LEUKOPENIA IN PT WITH HNL ON CHEMO AND WITH SEPTIC PICTURE MONITOR BLOOD COUNT CLOSELY POST NEUPOGEN Sepsis 2/2 PNA - abx, IVF - f/u culture results - ID Abd Pain with N/V: 2/2 known lymphoma - pain mgmt - Anti-emetics Hyponatremia and Hypokalemia: 2/2 vomiting - NS IVF - replete K+ as needed Presumed RAMU: likely pre-renal 2/2 vomiting - cont IVF for now Problems: Consultation Date/Type/Reason Admit Date/Time Jan 09, 2017 at 19:08 Initial Consult Date 01/10/17 Referring Provider: YAO RAHMAN 24 HR Interval Summary Free Text/Dictation ALL NOTED s/p 01/12/[address] guided biopsy of left flank subcutaneous nodule. Afebrile x >48 hours -- spiking fevers >102. on 01/09 & 01/10 A/A/O-> Feeling better, very polite, no new issues, no complaints, N/V resolved , denies dyspnea WBC - IMPROVED ON NEUPOGEN Exam/Review of Systems Vital Signs Vitals Vital Signs Date Time Temp Pulse Resp B/P Pulse Ox O2 Delivery O2 Flow Rate FiO2 01/12/17 20:47 2.0 01/12/17 20:29 71 01/12/17 20:19 97.6 20 110/57 96 01/12/17 08:15 Nasal Cannula 01/11/17 17:19 28 Intake and Output 01/11/17 01/11/17 01/12/17 15:00 23:00 07:00 Intake Total 200 ml 1500 ml Output Total 1000 ml 850 ml Balance 200 ml 500 ml -850 ml Exam Constitutional: distress, other (vomiting) Head: atraumatic, normocephalic Eyes: PERRL Respiratory: diminished breath sounds Cardiovascular: other (tachycardic with regular rhythm) Gastrointestinal: soft, tender Extremities: normal pulses Skin: other (there are several nodules in different part of his body, some necrosing (worst on his buttocks) and also left forearm) Results Result Diagram: 01/12/17 0605 01/12/17 0605 Results 24 hrs Laboratory Tests Test 01/12/17 06:05 01/12/17 12:22 White Blood Count 10.9 H Red Blood Count 3.65 L Hemoglobin 10.3 L Hematocrit 30.5 L Mean Corpuscular Volume 83.6 Mean Corpuscular Hemoglobin 28.2 L Mean Corpuscular Hemoglobin Concent 33.8 Red Cell Distribution Width 16.5 H Platelet Count 106 L Mean Platelet Volume 11.5 H Neutrophils % 94.3 H Lymphocytes % 1.4 L Monocytes % 2.9 Eosinophils % 0.0 Basophils % 0.1 Nucleated Red Blood Cells % 0.0 Neutrophils # 10.3 H Lymphocytes # 0.2 L Monocytes # 0.3 Eosinophils # 0.0 Basophils # 0.0 Nucleated Red Blood Cells # 0.0 Sodium Level 132 L Potassium Level 3.3 L Chloride Level 95 L Carbon Dioxide Level 26 Anion Gap 14 Blood Urea Nitrogen 12 Creatinine 0.53 L Glucose Level 136 Calcium Level 6.8 L Phosphorus Level 2.4 #L Magnesium Level 1.9 Vancomycin Level Trough 13.2 Medications Medications Current Medications Docusate Sodium (Colace) 100 mg Q12H PRN PO CONSTIPATION; Start 01/09/17 at 19: 30 Magnesium Hydroxide (Milk Of Mag) 30 ml DAILY PRN PO CONSTIPATION; Start at 19:30 Sodium Biphosphate/ Sodium Phosphate (Fleet Enema) 133 ml DAILY PRN [place] CONSTIPATION; Start 01/09/17 at 19:30 Pantoprazole (Protonix Tab) 40 mg DAILY@06 PO Last administered on 01/12/17 05: 30; Admin Dose 40 MG; Start 01/10/17 at 06:00 Heparin Sodium (Porcine) 5000 unit 5,000 unit Q12 SC Last administered on 20:39; Admin Dose 5,000 UNIT; Start 01/09/17 at 21:00 Piperacillin Sod/ Tazobactam Sod (Zosyn 3.375gm/ 100 ml (Pmx)) 100 ml @ 200 mls /hr Q6 IVPB Last administered on 01/12/17 17:54; Admin Dose 200 MLS/HR; Start 01/10/17 at 00:00 Vancomycin HCl (Vanco Iv Per Pharmacy) VANCOMYCIN PER PHARMACY NOTE XX ; Start 01/09/17 at 19:30 Nitroglycerin (Nitroglycerin (Sl Tab) 0.4 Mg) 1 tab Q5M PRN SL ANGINA; Start at 19:30 Metoprolol Succinate (Toprol Xl) 25 mg QHS PO Last administered on 01/12/17 20: 32; Admin Dose 25 MG; Start 01/09/17 at 21:00 Trimethoprim/ Sulfamethoxazole (Bactrim (Ds)) 1 tab DAILY PO Last administered on 01/12/17 08:20; Admin Dose 1 TAB; Start 01/10/17 at 09:00 [facility] This patient aranda... PRN PRN XX WOUND CARE; Start 01/10/17 at 03:30 Hydromorphone HCl (Dilaudid WATER MAINTENANCE SUPERVISOR) 1.0 MG/HR CONTINUOUS RATE .... Q4PCA IV Last administered on 01/12/17 20:38; Admin Dose 6 MG; Start 01/10/17 at 15:30 Ondansetron HCl 4 mg 4 mg Q6 IV Last administered on 01/12/17 17:54; Admin Dose 4 MG; Start 01/10/17 at 15:30 Acetaminophen (Ofirmev 1000mg/ 100ml Iv) 100 ml @ 400 mls/hr Q6 IVPB Last administered on 01/12/17 17:54; Admin Dose 400 MLS/HR; Start 01/10/17 at 16:30 IV Flush 10 ml 10 ml PRN PRN IV IV PROTOCOL; Start 01/10/17 at 20:30 Sodium Chloride 1,000 ml @ 50 mls/hr Q20H IV Last administered on 01/12/17 18: 24; Admin Dose 50 MLS/HR; Start 01/11/17 at 09:00 Vancomycin HCl/ Sodium Chloride (Vancocin/NS) 250 ml @ 83.333 mls/ hr Q8H IVPB Last administered on 01/12/17 20:32; Admin Dose 83.333 MLS/HR; Start 01/11/17 at 13:00 Prednisone (Prednisone) 40 mg DAILY PO ; Start 01/13/17 at 09:00 MOIRA BIRMINGHAM MD Jan 12, 2017 23:20
[2017-01-13] VITALS (12 sets, daily range): BP systolic 110–128; BP diastolic 56–70; PULSE 67–77; RESP 19–20
[2017-01-13] MEDS: PIPER-TAZO 3.375 GM IV (PMX) 100 ML IVPB SCH ×4 (00:19→18:13)
[2017-01-13] MEDS: ACETAMINOPHEN 1000MG/100ML IV 100 ML IVPB SCH ×4 (00:19→18:13)
[2017-01-13] MEDS: ONDANSETRON 4 MG INJ IV SCH ×4 (00:19→18:12)
[2017-01-13] MEDS: HYDROmorphONE 0.2 MG/ML PCA IV SCH ×5 (01:00→21:25)
[2017-01-13] MEDS: PANTOPRAZOLE (EC) 40 MG TAB PO SCH (05:55)
[2017-01-13] MEDS: VANCOMYCIN 1.25 GM in SOD CHLORIDE 0.9% 250 ML IVPB SCH ×3 (06:00→21:32)
[2017-01-13 07:19] LABS: ABNORMAL IP MESSAGE 1; HEMATOCRIT 30.2 % (42.0-52.0); HEMOGLOBIN 9.9 g/dl (14.0-18.0); LYMPHOCYTES # 0.1 10^3/ul (0.8-2.9); LYMPHOCYTES % 1.1 % (15.0-51.0); MEAN CORPUSCULAR HGB CONC 32.8 g/dl (32.0-37.0); MEAN CORPUSCULAR VOLUME 85.6 fl (82.0-101.0); MEAN PLATELET VOLUME 10.6 fl (7.4-10.4); MONOCYTE # 0.5 10^3/ul (0.3-0.9); MONOCYTES % 5.4 % (0.0-11.0); NEUTROPHIL # 8.6 10^3/ul (1.6-7.5); POSITIVE DIFF @See below; RED BLOOD COUNT 3.53 10^6/ul (4.70-6.10); RED CELL DISTRIBUTION WIDTH 16.3 % (11.5-14.5); WHITE BLOOD COUNT 9.3 10^3/ul (4.8-10.8)
[2017-01-13 07:23] LABS: PLATELET COUNT 130 10^3/UL (140-415)
[2017-01-13 07:24] LABS: MAGNESIUM 1.8 mg/dl (1.7-2.5); PHOSPHORUS 1.9 mg/dl (2.5-4.9)
[2017-01-13 07:25] LABS: CALCIUM 6.1 mg/dl (8.4-10.2); CREATININE 0.51 mg/dl (0.61-1.24); POTASSIUM 3.3 mmol/L (3.5-5.1)
[2017-01-13] MEDS: TRIMETHOPRIM/SULFAMETHOX (DS) TAB PO SCH (08:42)
[2017-01-13] MEDS: HEPARIN 5,000 UNIT/0.5 ML VIAL SC SCH ×2 (08:44→21:43)
[2017-01-13] MEDS: predniSONE 20 MG TAB PO SCH (08:46)
[2017-01-13] MEDS ORDERED: POTASSIUM CHLORIDE (SR) 20 MEQ TAB PO STA (08:46)
--- NOTE | 2017-01-13 09:05 | PN ---
DATE: 01/13/2017 SUBJECTIVE DATA: The patient is stable. No events overnight. No fevers, chills, nausea or vomiting. OBJECTIVE DATA: VITAL SIGNS: Blood pressure is 117/66 respirations 20, pulse 73, temperature 98.5. HEENT: Head is normocephalic. NECK: Supple. HEART: Regular rate. LUNGS: Diminished breath sounds at the base. ABDOMEN: Soft, nontender to palpation. No rebound or guarding. EXTREMITIES: Negative for clubbing or cyanosis. No edema. DERMATOLOGIC: Clean. No rashes. MUSCULOSKELETAL: No joint effusion. NEUROLOGIC: No change in exam. MEDICATIONS: Reviewed. LABORATORY AND DIAGNOSTIC DATA: Sodium 135, potassium 3, BUN 8, creatinine 0.56, phosphorus 1.9. ASSESSMENT AND PLAN: 1. Hyponatremia, resolved. Etiology is multifactorial secondary to volume depletion. Continue current treatment plan. 2. Hypokalemia. Replete potassium chloride. 3. Mineral bone disorder. Will replete with potassium phosphate as the patient is hypophosphatemic. 4. Nonoliguric acute kidney injury. Etiology secondary to hemodynamics. Renal function has improved. Continue to monitor. 5. Abdominal pain, improving. Continue current treatment plan. 6. Nausea and vomiting. Continue current medical management. 7. Sepsis secondary to pneumonia. Continue current antibiotic regimen. 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 Continue current treatment plan. Dictated By: Rios Michelle DO /[email or web address] /Document#: [id number]
[2017-01-13] MEDS ORDERED: POTASSIUM PHOSPHATE 20 MEQ in SOD CHLORIDE 0.9% 250 ML IVPB ONE (10:00)
[2017-01-13] MEDS: DOCUSATE SODIUM 100 MG CAP PO PRN (10:46)
--- NOTE | 2017-01-13 11:27 | CONS ---
Date/Time of Note Date/Time of Note DATE: 01/13/17 TIME: 11:22 Assessment/Plan Assessment/Plan Chief Complaint/Hosp Course ID PROGRESS NOTE CURRENT ABX=> Bactrim po + Vanco IV #3 + Zosyn #3 24H INTERVAL SUMMARY s/p 01/12/[address] guided biopsy of left flank subcutaneous nodule. Afebrile x >48 hours -- spiking fevers >102. on 01/09 & 01/10 A/A/O-> Feeling better, very polite, no new issues, no complaints, N/V resolved, denies dyspnea RINE CULTURE Final Organism 1 ENTEROCOCCUS SPECIES COLONY COUNT 10,000 - 20,000 CFU/ml ENT SPS M.I.C. RX --------- --- AMPICILLIN <=2 S CIPROFLOXACIN >=8 R LEVOFLOXACIN >=8 R PENICILLIN-G 8 S VANCOMYCIN 1 S EXAM GENERAL: Alert. Awake. Complains of Generalized Abdominal Pain. 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 Nausea/Vomiting -> ABD pain due to lymphoma 4. Presumed RAMU: likely pre-renal 2/2 vomiting 5. Hyponatremia and Hypokalemia: 2/2 vomiting 6. Enterococcal UTI -> Low colony count INVASIVES: RUEXT PICC ABX ALLERGY: EGG/MILK CURRENT ABX: Bactrim po + Vanco IV #3 + Zosyn #3 7. Generalized Abdominal Pain ID PLAN 1. Monitor Labs. Pain Management. 2. FEVERS likely due to early Enterococcal UTI + HCAP 3. If he remains afebrile and WBC remains normal; anticipate DC on Levaquin 750mg PO Daily x 7 days for HCAP [facility] Problems: Consultation Date/Type/Reason Admit Date/Time Jan 09, 2017 at 19:08 Initial Consult Date 01/10/17 Type of Consultation: id Referring Provider: YAO RAHMAN Exam/Review of Systems Vital Signs Vitals Vital Signs Date Time Temp Pulse Resp B/P Pulse Ox O2 Delivery O2 Flow Rate FiO2 01/13/17 08:40 73 01/13/17 08:30 Nasal Cannula 2.0 01/13/17 07:35 98.5 20 117/66 99 01/11/17 17:19 28 Intake and Output 01/12/17 01/12/17 01/13/17 15:00 23:00 07:00 Intake Total 1150 ml 500 ml Output Total 300 ml 400 ml Balance 850 ml 100 ml Results Result Diagram: 01/13/17 0632 01/13/17 0632 Results 24 hrs Laboratory Tests Test 01/12/17 12:22 01/13/17 05:43 01/13/17 06:32 Vancomycin Level Trough 13.2 Lab Scanned Report BLOOD TRANSFUSION White Blood Count 9.3 Red Blood Count 3.53 L Hemoglobin 9.9 L Hematocrit 30.2 L Mean Corpuscular Volume 85.6 Mean Corpuscular Hemoglobin 28.0 L Mean Corpuscular Hemoglobin Concent 32.8 Red Cell Distribution Width 16.3 H Platelet Count 130 #L Mean Platelet Volume 10.6 H Neutrophils % 92.0 H Lymphocytes % 1.1 L Monocytes % 5.4 Eosinophils % 0.0 Basophils % 0.0 Nucleated Red Blood Cells % 0.0 Neutrophils # 8.6 H Lymphocytes # 0.1 L Monocytes # 0.5 Eosinophils # 0.0 Basophils # 0.0 Nucleated Red Blood Cells # 0.0 Sodium Level 135 Potassium Level 3.3 L Chloride Level 99 Carbon Dioxide Level 25 Anion Gap 14 Blood Urea Nitrogen 8 Creatinine 0.51 L Glucose Level 135 Calcium Level 6.1 L Phosphorus Level 1.9 L Magnesium Level 1.8 Medications Medications Current Medications Docusate Sodium (Colace) 100 mg Q12H PRN PO CONSTIPATION Last administered on t 10:46; Admin Dose 100 MG; Start 01/09/17 at 19:30 Magnesium Hydroxide (Milk Of Mag) 30 ml DAILY PRN PO CONSTIPATION; Start at 19:30 Sodium Biphosphate/ Sodium Phosphate (Fleet Enema) 133 ml DAILY PRN [place] CONSTIPATION; Start 01/09/17 at 19:30 Pantoprazole (Protonix Tab) 40 mg DAILY@06 PO Last administered on 01/13/17 05: 55; Admin Dose 40 MG; Start 01/10/17 at 06:00 Heparin Sodium (Porcine) 5000 unit 5,000 unit Q12 SC Last administered on 08:44; Admin Dose 5,000 UNIT; Start 01/09/17 at 21:00 Piperacillin Sod/ Tazobactam Sod (Zosyn 3.375gm/ 100 ml (Pmx)) 100 ml @ 200 mls /hr Q6 IVPB Last administered on 01/13/17 05:56; Admin Dose 200 MLS/HR; Start 01/10/17 at 00:00 Vancomycin HCl (Vanco Iv Per Pharmacy) VANCOMYCIN PER PHARMACY NOTE XX ; Start 01/09/17 at 19:30 Nitroglycerin (Nitroglycerin (Sl Tab) 0.4 Mg) 1 tab Q5M PRN SL ANGINA; Start at 19:30 Metoprolol Succinate (Toprol Xl) 25 mg QHS PO Last administered on 01/12/17 20: 32; Admin Dose 25 MG; Start 01/09/17 at 21:00 Trimethoprim/ Sulfamethoxazole (Bactrim (Ds)) 1 tab DAILY PO Last administered on 01/13/17 08:42; Admin Dose 1 TAB; Start 01/10/17 at 09:00 [facility] This patient aranda... PRN PRN XX WOUND CARE; Start 01/10/17 at 03:30 Hydromorphone HCl (Dilaudid FISHING ROD MARKER) 1.0 MG/HR CONTINUOUS RATE .... Q4PCA IV Last administered on 01/13/17 10:40; Admin Dose 6 MG; Start 01/10/17 at 15:30 Ondansetron HCl 4 mg 4 mg Q6 IV Last administered on 01/13/17 05:55; Admin Dose 4 MG; Start 01/10/17 at 15:30 Acetaminophen (Ofirmev 1000mg/ 100ml Iv) 100 ml @ 400 mls/hr Q6 IVPB Last administered on 01/13/17 05:56; Admin Dose 400 MLS/HR; Start 01/10/17 at 16:30 IV Flush 10 ml 10 ml PRN PRN IV IV PROTOCOL; Start 01/10/17 at 20:30 Sodium Chloride 1,000 ml @ 50 mls/hr Q20H IV Last administered on 01/12/17 18: 24; Admin Dose 50 MLS/HR; Start 01/11/17 at 09:00 Vancomycin HCl/ Sodium Chloride (Vancocin/NS) 250 ml @ 83.333 mls/ hr Q8H IVPB Last administered on 01/13/17 06:00; Admin Dose 83.333 MLS/HR; Start 01/11/17 at 13:00 Prednisone 40 mg 40 mg DAILY PO ; Start 01/13/17 at 09:00 Potassium Phosphate/Sodium Chloride (K Phos (Meq)/NS) 254.5455 ml @ 63.636 m... ONCE ONCE IVPB Last administered on 01/13/17 10:33; Admin Dose 63.636 MLS /HR; Start 01/13/17 at 10:00; Stop 01/13/17 at 13:59 JOSSELINE LAIRD NP Jan 13, 2017 11:27
--- NOTE | 2017-01-13 15:16 | PN ---
Date/Time of Note Date/Time of Note DATE: 01/13/17 TIME: 15:15 Assessment/Plan VTE Prophylaxis VTE Prophylaxis Intervention: ambulation Lines/Catheters IV Catheter Type (from Nrs): PICC Line Central line still needed: Yes Urinary Cath still in place: No Assessment/Plan Chief Complaint/Hosp Course Patient is a 31-year-old male with a past medical history of large B- cell lymphoma presented to the ED complaining of abdominal pain, nausea, vomiting, fever 2 weeks duration. Patient's last chemotherapy was approximately 1 month ago. Assessment and plan Sepsis, secondary pneumonia, resolving Abdominal pain Nausea Vomiting Hyponatremia UTI Hypokalemia Acute kidney injury B-cell lymphoma Lactic acidosis Plan -Patient's nausea and vomiting has substantially subsided, attempt to progress to full liquids -PNA/UTI, on abx. -Palliative care on board, controlling pain -Patient does have an oncologist, however oncology does not have privileges here , oncology has been consulted -Ultrasound biopsy done, pending path -CT of the abdomen pelvis and chest show multiple areas of nodules likely lymphoma, also possible pneumonia, patient on antibiotics -Multifactorial reasons for electrolyte derangement, all likely secondary to intractable nausea and vomiting, patient's labs are improving slowly, nephrology on board. mostly resolved. DISPO: control nausea/vomiting so patient can be discharged and continue treatment for lymphoma JOSSELIN Problems: Exam/Review of Systems Vital Signs Vitals Vital Signs Date Time Temp Pulse Resp B/P Pulse Ox O2 Delivery O2 Flow Rate FiO2 01/13/17 12:42 67 01/13/17 11:37 98.3 19 128/70 97 01/13/17 08:30 Nasal Cannula 2.0 01/11/17 17:19 28 Intake and Output 01/12/17 01/12/17 01/13/17 15:00 23:00 07:00 Intake Total 1150 ml 500 ml Output Total 300 ml 400 ml Balance 850 ml 100 ml Exam Physical exam General: Patient is laying in bed and answers questions appropriately Mentation: Patient is alert and oriented 4, Head: Normocephalic atraumatic Eyes: EOMI, pupils reactive to light Neck: Supple, nontender, midline Respiratory: coarse to auscultation bilaterally Cardiovascular: regular rate, no obvious murmurs Gastrointestinal: mildly tender to palpation, bowel sounds heard. Neurological: Moves all extremities spontaneously Skin: multiple lesions surrounding body, some draining. Results Result Diagram: 01/13/17 0632 01/13/17 0632 Results 24 hrs Laboratory Tests Test 01/13/17 05:43 01/13/17 06:32 Lab Scanned Report BLOOD TRANSFUSION White Blood Count 9.3 Red Blood Count 3.53 L Hemoglobin 9.9 L Hematocrit 30.2 L Mean Corpuscular Volume 85.6 Mean Corpuscular Hemoglobin 28.0 L Mean Corpuscular Hemoglobin Concent 32.8 Red Cell Distribution Width 16.3 H Platelet Count 130 #L Mean Platelet Volume 10.6 H Neutrophils % 92.0 H Lymphocytes % 1.1 L Monocytes % 5.4 Eosinophils % 0.0 Basophils % 0.0 Nucleated Red Blood Cells % 0.0 Neutrophils # 8.6 H Lymphocytes # 0.1 L Monocytes # 0.5 Eosinophils # 0.0 Basophils # 0.0 Nucleated Red Blood Cells # 0.0 Sodium Level 135 Potassium Level 3.3 L Chloride Level 99 Carbon Dioxide Level 25 Anion Gap 14 Blood Urea Nitrogen 8 Creatinine 0.51 L Glucose Level 135 Calcium Level 6.1 L Phosphorus Level 1.9 L Magnesium Level 1.8 Medications Medications Current Medications Docusate Sodium (Colace) 100 mg Q12H PRN PO CONSTIPATION Last administered on 10:46; Admin Dose 100 MG; Start 01/09/17 at 19:30 Magnesium Hydroxide (Milk Of Mag) 30 ml DAILY PRN PO CONSTIPATION; Start at 19:30 Sodium Biphosphate/ Sodium Phosphate (Fleet Enema) 133 ml DAILY PRN [place] CONSTIPATION; Start 01/09/17 at 19:30 Pantoprazole (Protonix Tab) 40 mg DAILY@06 PO Last administered on 01/13/17 05: 55; Admin Dose 40 MG; Start 01/10/17 at 06:00 Heparin Sodium (Porcine) 5000 unit 5,000 unit Q12 SC Last administered on 08:44; Admin Dose 5,000 UNIT; Start 01/09/17 at 21:00 Piperacillin Sod/ Tazobactam Sod (Zosyn 3.375gm/ 100 ml (Pmx)) 100 ml @ 200 mls /hr Q6 IVPB Last administered on 01/13/17 11:48; Admin Dose 200 MLS/HR; Start 01/10/17 at 00:00 Vancomycin HCl (Vanco Iv Per Pharmacy) VANCOMYCIN PER PHARMACY NOTE XX ; Start 01/09/17 at 19:30 Nitroglycerin (Nitroglycerin (Sl Tab) 0.4 Mg) 1 tab Q5M PRN SL ANGINA; Start at 19:30 Metoprolol Succinate (Toprol Xl) 25 mg QHS PO Last administered on 01/12/17 20: 32; Admin Dose 25 MG; Start 01/09/17 at 21:00 Trimethoprim/ Sulfamethoxazole (Bactrim (Ds)) 1 tab DAILY PO Last administered on 01/13/17 08:42; Admin Dose 1 TAB; Start 01/10/17 at 09:00 Miscellaneous Information (Pending [facility] Order For Wound Care) This patient aranda... PRN PRN XX WOUND CARE; Start 01/10/17 at 03:30 Hydromorphone HCl (Dilaudid POLYMERIZATION KETTLE OPERATOR) 1.0 MG/HR CONTINUOUS RATE .... Q4PCA IV Last administered on 01/13/17 10:40; Admin Dose 6 MG; Start 01/10/17 at 15:30 Ondansetron HCl 4 mg 4 mg Q6 IV Last administered on 01/13/17 11:47; Admin Dose 4 MG; Start 01/10/17 at 15:30 Acetaminophen (Ofirmev 1000mg/ 100ml Iv) 100 ml @ 400 mls/hr Q6 IVPB Last administered on 01/13/17 11:48; Admin Dose 400 MLS/HR; Start 01/10/17 at 16:30 IV Flush 10 ml 10 ml PRN PRN IV IV PROTOCOL; Start 01/10/17 at 20:30 Sodium Chloride 1,000 ml @ 50 mls/hr Q20H IV Last administered on 01/12/17 18: 24; Admin Dose 50 MLS/HR; Start 01/11/17 at 09:00 Vancomycin HCl/ Sodium Chloride (Vancocin/NS) 250 ml @ 83.333 mls/ hr Q8H IVPB Last administered on 01/13/17 13:06; Admin Dose 83.333 MLS/HR; Start 01/11/17 at 13:00 Prednisone (Prednisone) 40 mg DAILY PO ; Start 01/13/17 at 09:00 Miscellaneous Information (*Rx Drug Level Order Reminder*) VANCOMYCIN TROUGH AT 1,200 ON 01/14 ONCE ONCE XX ; Start 01/14/17 at 12:00; Stop 01/14/17 at 12:01 YAO RAHMAN Jan 13, 2017 15:16
--- NOTE | 2017-01-13 15:57 | CONS ---
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 His last chemo was a month ago and hadn't had since due to experiencing similar presenting symptoms. record from pt's oncologist Kain Wisdom - P LEUKOPENIA IN PT WITH HNL ON CHEMO AND WITH SEPTIC PICTURE MONITOR BLOOD COUNT CLOSELY POST NEUPOGEN Sepsis 2/2 PNA - abx, IVF - f/u culture results - ID Abd Pain with N/V: 2/2 known lymphoma - pain mgmt - Anti-emetics Hyponatremia and Hypokalemia: 2/2 vomiting - NS IVF - replete K+ as needed Presumed RAMU: likely pre-renal 2/2 vomiting - cont IVF for now Problems: Consultation Date/Type/Reason Admit Date/Time Jan 09, 2017 at 19:08 Initial Consult Date 01/10/17 Type of Consultation: HEMEON Referring Provider: YAO RAHMAN 24 HR Interval Summary Free Text/Dictation ALL NOTED Exam/Review of Systems Vital Signs Vitals Vital Signs Date Time Temp Pulse Resp B/P Pulse Ox O2 Delivery O2 Flow Rate FiO2 01/13/17 15:48 98.8 73 20 125/64 97 01/13/17 08:30 2.0 01/13/17 08:30 Nasal Cannula 01/11/17 17:19 28 Intake and Output 01/12/17 01/12/17 01/13/17 15:00 23:00 07:00 Intake Total 1150 ml 500 ml Output Total 300 ml 400 ml Balance 850 ml 100 ml Exam Constitutional: distress, other (vomiting) Head: atraumatic, normocephalic Eyes: PERRL Respiratory: diminished breath sounds Cardiovascular: other (tachycardic with regular rhythm) Gastrointestinal: soft, tender Extremities: normal pulses Skin: other (there are several nodules in different part of his body, some necrosing (worst on his buttocks) and also left forearm) Results Result Diagram: 01/13/17 0632 01/13/17 0632 Results 24 hrs Laboratory Tests Test 01/13/17 05:43 01/13/17 06:32 Lab Scanned Report BLOOD TRANSFUSION White Blood Count 9.3 Red Blood Count 3.53 L Hemoglobin 9.9 L Hematocrit 30.2 L Mean Corpuscular Volume 85.6 Mean Corpuscular Hemoglobin 28.0 L Mean Corpuscular Hemoglobin Concent 32.8 Red Cell Distribution Width 16.3 H Platelet Count 130 #L Mean Platelet Volume 10.6 H Neutrophils % 92.0 H Lymphocytes % 1.1 L Monocytes % 5.4 Eosinophils % 0.0 Basophils % 0.0 Nucleated Red Blood Cells % 0.0 Neutrophils # 8.6 H Lymphocytes # 0.1 L Monocytes # 0.5 Eosinophils # 0.0 Basophils # 0.0 Nucleated Red Blood Cells # 0.0 Sodium Level 135 Potassium Level 3.3 L Chloride Level 99 Carbon Dioxide Level 25 Anion Gap 14 Blood Urea Nitrogen 8 Creatinine 0.51 L Glucose Level 135 Calcium Level 6.1 L Phosphorus Level 1.9 L Magnesium Level 1.8 Medications Medications Current Medications Docusate Sodium (Colace) 100 mg Q12H PRN PO CONSTIPATION Last administered on 10:46; Admin Dose 100 MG; Start 01/09/17 at 19:30 Magnesium Hydroxide (Milk Of Mag) 30 ml DAILY PRN PO CONSTIPATION; Start at 19:30 Sodium Biphosphate/ Sodium Phosphate (Fleet Enema) 133 ml DAILY PRN [place] CONSTIPATION; Start 01/09/17 at 19:30 Pantoprazole (Protonix Tab) 40 mg DAILY@06 PO Last administered on 01/13/17 05: 55; Admin Dose 40 MG; Start 01/10/17 at 06:00 Heparin Sodium (Porcine) 5000 unit 5,000 unit Q12 SC Last administered on 08:44; Admin Dose 5,000 UNIT; Start 01/09/17 at 21:00 Piperacillin Sod/ Tazobactam Sod (Zosyn 3.375gm/ 100 ml (Pmx)) 100 ml @ 200 mls /hr Q6 IVPB Last administered on 01/13/17 11:48; Admin Dose 200 MLS/HR; Start 01/10/17 at 00:00 Vancomycin HCl (Vanco Iv Per Pharmacy) VANCOMYCIN PER PHARMACY NOTE XX ; Start 01/09/17 at 19:30 Nitroglycerin (Nitroglycerin (Sl Tab) 0.4 Mg) 1 tab Q5M PRN SL ANGINA; Start at 19:30 Metoprolol Succinate (Toprol Xl) 25 mg QHS PO Last administered on 01/12/17 20: 32; Admin Dose 25 MG; Start 01/09/17 at 21:00 Trimethoprim/ Sulfamethoxazole (Bactrim (Ds)) 1 tab DAILY PO Last administered on 01/13/17 08:42; Admin Dose 1 TAB; Start 01/10/17 at 09:00 Miscellaneous Information (Pending [facility] Order For Wound Care) This patient aranda... PRN PRN XX WOUND CARE; Start 01/10/17 at 03:30 Hydromorphone HCl (Dilaudid TOWBOAT OPERATOR) 1.0 MG/HR CONTINUOUS RATE .... Q4PCA IV Last administered on 01/13/17 10:40; Admin Dose 6 MG; Start 01/10/17 at 15:30 Ondansetron HCl 4 mg 4 mg Q6 IV Last administered on 01/13/17 11:47; Admin Dose 4 MG; Start 01/10/17 at 15:30 Acetaminophen (Ofirmev 1000mg/ 100ml Iv) 100 ml @ 400 mls/hr Q6 IVPB Last administered on 01/13/17 11:48; Admin Dose 400 MLS/HR; Start 01/10/17 at 16:30 IV Flush 10 ml 10 ml PRN PRN IV IV PROTOCOL; Start 01/10/17 at 20:30 Sodium Chloride 1,000 ml @ 50 mls/hr Q20H IV Last administered on 01/12/17 18: 24; Admin Dose 50 MLS/HR; Start 01/11/17 at 09:00 Vancomycin HCl/ Sodium Chloride (Vancocin/NS) 250 ml @ 83.333 mls/ hr Q8H IVPB Last administered on 01/13/17 13:06; Admin Dose 83.333 MLS/HR; Start 01/11/17 at 13:00 Prednisone (Prednisone) 40 mg DAILY PO ; Start 01/13/17 at 09:00 Miscellaneous Information (*Rx Drug Level Order Reminder*) VANCOMYCIN TROUGH AT 1,200 ON 01/14 ONCE ONCE XX ; Start 01/14/17 at 12:00; Stop 01/14/17 at 12:01 MOIRA BIRMINGHAM MD Jan 13, 2017 15:57
[2017-01-13] MEDS: SOD CHLORIDE 0.9% 1,000 ML IV SCH (20:09)
[2017-01-13] MEDS: METOPROLOL (XL) 25 MG TAB PO SCH (21:33)
[2017-01-13] MEDS: ALBUTEROL/IPRATROPIUM (NEB) 3 ML AMP HHN PRN (23:34)
[2017-01-14] VITALS (8 sets, daily range): BP systolic 97–130; BP diastolic 50–67; PULSE 118–150; RESP 20
[2017-01-14] MEDS: PIPER-TAZO 3.375 GM IV (PMX) 100 ML IVPB SCH ×4 (00:09→18:00)
[2017-01-14] MEDS: ONDANSETRON 4 MG INJ IV SCH ×4 (00:09→18:00)
[2017-01-14] MEDS: ACETAMINOPHEN 1000MG/100ML IV 100 ML IVPB SCH ×5 (00:09→20:54)
[2017-01-14] MEDS: SOD CHLORIDE 0.9% 1,000 ML IV SCH ×3 (00:30→23:17)
[2017-01-14] MEDS: HYDROmorphONE 0.2 MG/ML PCA IV SCH ×5 (01:20→22:24)
[2017-01-14] MEDS: VANCOMYCIN 1.25 GM in SOD CHLORIDE 0.9% 250 ML IVPB SCH ×3 (04:41→20:53)
[2017-01-14 05:38] LABS: ABNORMAL IP MESSAGE 1; BASOPHILS % 0.1 % (0.0-2.0); HEMATOCRIT 29.4 % (42.0-52.0); HEMOGLOBIN 9.7 g/dl (14.0-18.0); LYMPHOCYTES # 0.1 10^3/ul (0.8-2.9); LYMPHOCYTES % 1.1 % (15.0-51.0); MEAN CORPUSCULAR HEMOGLOBIN 28.6 pg (29.0-33.0); MEAN CORPUSCULAR VOLUME 86.7 fl (82.0-101.0); MEAN PLATELET VOLUME 10.3 fl (7.4-10.4); MONOCYTE # 0.6 10^3/ul (0.3-0.9); MONOCYTES % 6.1 % (0.0-11.0); NEUTROPHIL # 9.3 10^3/ul (1.6-7.5); NEUTROPHILS % 90.6 % (39.0-77.0); PLATELET COUNT 151 10^3/UL (140-415); POSITIVE DIFF @See below; RED BLOOD COUNT 3.39 10^6/ul (4.70-6.10); RED CELL DISTRIBUTION WIDTH 16.6 % (11.5-14.5); WHITE BLOOD COUNT 10.2 10^3/ul (4.8-10.8)
[2017-01-14 06:09] LABS: CREATININE 0.49 mg/dl (0.61-1.24); MAGNESIUM 1.7 mg/dl (1.7-2.5); PHOSPHORUS 1.2 mg/dl (2.5-4.9); POTASSIUM 3.2 mmol/L (3.5-5.1)
[2017-01-14] MEDS: PANTOPRAZOLE (EC) 40 MG TAB PO SCH (06:31)
[2017-01-14] MEDS: TRIMETHOPRIM/SULFAMETHOX (DS) TAB PO SCH (08:42)
[2017-01-14] MEDS: predniSONE 20 MG TAB PO SCH (08:43)
[2017-01-14] MEDS: HEPARIN 5,000 UNIT/0.5 ML VIAL SC SCH ×2 (08:44→22:41)
--- NOTE | 2017-01-14 09:59 | CONS ---
Date/Time of Note Date/Time of Note DATE: 01/14/17 TIME: 09:55 Assessment/Plan Assessment/Plan Additional Assessment/Plan Postdated note for the visit January 13, 2017. Pain is controlled on current CLINICAL DOCUMENTATION DEVELOPER, denies any side effects of nausea vomiting chest pain shortness of breath dizziness, confusion, pruritus or mental cloudiness. He is not eating therefore he is not having bowel movements. He states he sleeping not waking up during the night and pain pain is rated as moderate at this time it was severe 10/10 prior to beginning current pain control. Patient appears not overly sedated nor does he say he is overly sedated and is comfortable with his current pain regimen and does not want to be cut back secondary to the severity of his pain prior to hospitalization. He has not asked for different pain medications or increasing frequent dosing. Consultation Date/Type/Reason Admit Date/Time Jan 09, 2017 at 19:08 Initial Consult Date 01/10/17 Type of Consultation: Pain management Referring Provider: YAO RAHMAN Exam/Review of Systems Vital Signs Vitals Vital Signs Date Time Temp Pulse Resp B/P Pulse Ox O2 Delivery O2 Flow Rate FiO2 01/14/17 07:43 98.5 93 20 114/67 97 01/14/17 02:10 Nasal Cannula 2.0 01/13/17 23:35 21 Intake and Output 01/13/17 01/13/17 01/14/17 15:00 23:00 07:00 Intake Total 1050 ml 1880 ml Output Total 700 ml Balance 1050 ml 1180 ml Exam Constitutional: other (No acute distress) Psych: nl mood/affect, no complaints Respiratory: clear to auscultation, normal air movement Cardiovascular: nl pulses, regular rate and rhythm Neurological: HOUSE FELLOW II-XII intact, nl mental status, nl speech, nl strength Results Result Diagram: 01/14/17 0455 01/14/17 0455 Results 24 hrs Laboratory Tests Test 01/14/17 04:55 White Blood Count 10.2 Red Blood Count 3.39 L Hemoglobin 9.7 L Hematocrit 29.4 L Mean Corpuscular Volume 86.7 Mean Corpuscular Hemoglobin 28.6 L Mean Corpuscular Hemoglobin Concent 33.0 Red Cell Distribution Width 16.6 H Platelet Count 151 Mean Platelet Volume 10.3 Neutrophils % 90.6 H Lymphocytes % 1.1 L Monocytes % 6.1 Eosinophils % 0.0 Basophils % 0.1 Nucleated Red Blood Cells % 0.0 Neutrophils # 9.3 H Lymphocytes # 0.1 L Monocytes # 0.6 Eosinophils # 0.0 Basophils # 0.0 Nucleated Red Blood Cells # 0.0 Sodium Level 138 Potassium Level 3.2 L Chloride Level 101 Carbon Dioxide Level 26 Anion Gap 14 Blood Urea Nitrogen 5 L Creatinine 0.49 L Glucose Level 112 Calcium Level 5.0 *L Phosphorus Level 1.2 L Magnesium Level 1.7 Medications Medications Current Medications Docusate Sodium (Colace) 100 mg Q12H PRN PO CONSTIPATION Last administered on 10:46; Admin Dose 100 MG; Start 01/09/17 at 19:30 Magnesium Hydroxide (Milk Of Mag) 30 ml DAILY PRN PO CONSTIPATION; Start at 19:30 Sodium Biphosphate/ Sodium Phosphate (Fleet Enema) 133 ml DAILY PRN [place] CONSTIPATION; Start 01/09/17 at 19:30 Heparin Sodium (Porcine) 5000 unit 5,000 unit Q12 SC Last administered on 08:44; Admin Dose 5,000 UNIT; Start 01/09/17 at 21:00 Piperacillin Sod/ Tazobactam Sod (Zosyn 3.375gm/ 100 ml (Pmx)) 100 ml @ 200 mls /hr Q6 IVPB Last administered on 01/14/17 06:31; Admin Dose 200 MLS/HR; Start 01/10/17 at 00:00 Vancomycin HCl (Vanco Iv Per Pharmacy) VANCOMYCIN PER PHARMACY NOTE XX ; Start 01/09/17 at 19:30 Nitroglycerin (Nitroglycerin (Sl Tab) 0.4 Mg) 1 tab Q5M PRN SL ANGINA; Start at 19:30 Metoprolol Succinate (Toprol Xl) 25 mg QHS PO Last administered on 01/13/17 21: 33; Admin Dose 25 MG; Start 01/09/17 at 21:00 Trimethoprim/ Sulfamethoxazole (Bactrim (Ds)) 1 tab DAILY PO Last administered on 01/14/17 08:42; Admin Dose 1 TAB; Start 01/10/17 at 09:00 Miscellaneous Information (Pending [facility] Order For Wound Care) This patient aranda... PRN PRN XX WOUND CARE; Start 01/10/17 at 03:30 Hydromorphone HCl (Dilaudid CLINICAL DOCUMENTATION DEVELOPER) 1.0 MG/HR CONTINUOUS RATE .... Q4PCA IV Last administered on 01/14/17 05:35; Admin Dose 6 MG; Start 01/10/17 at 15:30 Ondansetron HCl 4 mg 4 mg Q6 IV Last administered on 01/14/17 06:31; Admin Dose 4 MG; Start 01/10/17 at 15:30 Acetaminophen (Ofirmev 1000mg/ 100ml Iv) 100 ml @ 400 mls/hr Q6 IVPB Last administered on 01/14/17 06:31; Admin Dose 400 MLS/HR; Start 01/10/17 at 16:30 IV Flush 10 ml 10 ml PRN PRN IV IV PROTOCOL; Start 01/10/17 at 20:30 Sodium Chloride 1,000 ml @ 50 mls/hr Q20H IV Last administered on 01/12/17 18: 24; Admin Dose 50 MLS/HR; Start 01/11/17 at 09:00 Vancomycin HCl/ Sodium Chloride (Vancocin/NS) 250 ml @ 83.333 mls/ hr Q8H IVPB Last administered on 01/14/17 04:41; Admin Dose 83.333 MLS/HR; Start 01/11/17 at 13:00 Miscellaneous Information (*Rx Drug Level Order Reminder*) VANCOMYCIN TROUGH AT 1,200 ON 01/14 ONCE ONCE XX ; Start 01/14/17 at 12:00; Stop 01/14/17 at 12:01 Prednisone (Prednisone) 20 mg DAILY PO ; Start 01/15/17 at 09:00 SHELBY WHITE Jan 14, 2017 09:59
--- NOTE | 2017-01-14 10:05 | CONS ---
Date/Time of Note Date/Time of Note DATE: 01/14/17 TIME: 10:02 Assessment/Plan Assessment/Plan Additional Assessment/Plan Biopsy of left flank mass was done yesterday, results pending. He slept well last night denies nausea vomiting oversedation also states that current pain control is adequate does not want to change dosing, I agree Aggressive T-cell lymphoma Abdominal pain Pain management secondary to the above Poor p.o. Consultation Date/Type/Reason Admit Date/Time Jan 09, 2017 at 19:08 Initial Consult Date 01/10/17 Type of Consultation: Pain management Referring Provider: YAO RAHMAN Exam/Review of Systems Vital Signs Vitals Vital Signs Date Time Temp Pulse Resp B/P Pulse Ox O2 Delivery O2 Flow Rate FiO2 01/14/17 07:43 98.5 93 20 114/67 97 01/14/17 02:10 Nasal Cannula 2.0 01/13/17 23:35 21 Intake and Output 01/13/17 01/13/17 01/14/17 15:00 23:00 07:00 Intake Total 1050 ml 1880 ml Output Total 700 ml Balance 1050 ml 1180 ml Exam Constitutional: alert, oriented, well developed Respiratory: clear to auscultation, normal air movement Cardiovascular: nl pulses, regular rate and rhythm Neurological: CERTIFIED ADAPTIVE PHYSICAL EDUCATOR II-XII intact, nl mental status, nl speech, nl strength Results Result Diagram: 01/14/17 0455 01/14/17 0455 Results 24 hrs Laboratory Tests Test 01/14/17 04:55 White Blood Count 10.2 Red Blood Count 3.39 L Hemoglobin 9.7 L Hematocrit 29.4 L Mean Corpuscular Volume 86.7 Mean Corpuscular Hemoglobin 28.6 L Mean Corpuscular Hemoglobin Concent 33.0 Red Cell Distribution Width 16.6 H Platelet Count 151 Mean Platelet Volume 10.3 Neutrophils % 90.6 H Lymphocytes % 1.1 L Monocytes % 6.1 Eosinophils % 0.0 Basophils % 0.1 Nucleated Red Blood Cells % 0.0 Neutrophils # 9.3 H Lymphocytes # 0.1 L Monocytes # 0.6 Eosinophils # 0.0 Basophils # 0.0 Nucleated Red Blood Cells # 0.0 Sodium Level 138 Potassium Level 3.2 L Chloride Level 101 Carbon Dioxide Level 26 Anion Gap 14 Blood Urea Nitrogen 5 L Creatinine 0.49 L Glucose Level 112 Calcium Level 5.0 *L Phosphorus Level 1.2 L Magnesium Level 1.7 Medications Medications Current Medications Docusate Sodium (Colace) 100 mg Q12H PRN PO CONSTIPATION Last administered on 10:46; Admin Dose 100 MG; Start 01/09/17 at 19:30 Magnesium Hydroxide (Milk Of Mag) 30 ml DAILY PRN PO CONSTIPATION; Start at 19:30 Sodium Biphosphate/ Sodium Phosphate (Fleet Enema) 133 ml DAILY PRN [place] CONSTIPATION; Start 01/09/17 at 19:30 Heparin Sodium (Porcine) 5000 unit 5,000 unit Q12 SC Last administered on 08:44; Admin Dose 5,000 UNIT; Start 01/09/17 at 21:00 Piperacillin Sod/ Tazobactam Sod (Zosyn 3.375gm/ 100 ml (Pmx)) 100 ml @ 200 mls /hr Q6 IVPB Last administered on 01/14/17 06:31; Admin Dose 200 MLS/HR; Start 01/10/17 at 00:00 Vancomycin HCl (Vanco Iv Per Pharmacy) VANCOMYCIN PER PHARMACY NOTE XX ; Start 01/09/17 at 19:30 Nitroglycerin (Nitroglycerin (Sl Tab) 0.4 Mg) 1 tab Q5M PRN SL ANGINA; Start at 19:30 Metoprolol Succinate (Toprol Xl) 25 mg QHS PO Last administered on 01/13/17 21: 33; Admin Dose 25 MG; Start 01/09/17 at 21:00 Trimethoprim/ Sulfamethoxazole (Bactrim (Ds)) 1 tab DAILY PO Last administered on 01/14/17 08:42; Admin Dose 1 TAB; Start 01/10/17 at 09:00 Miscellaneous Information (Pending [facility] Order For Wound Care) This patient aranda... PRN PRN XX WOUND CARE; Start 01/10/17 at 03:30 Hydromorphone HCl (Dilaudid SHOT HOLE DRILLER) 1.0 MG/HR CONTINUOUS RATE .... Q4PCA IV Last administered on 01/14/17 05:35; Admin Dose 6 MG; Start 01/10/17 at 15:30 Ondansetron HCl 4 mg 4 mg Q6 IV Last administered on 01/14/17 06:31; Admin Dose 4 MG; Start 01/10/17 at 15:30 Acetaminophen (Ofirmev 1000mg/ 100ml Iv) 100 ml @ 400 mls/hr Q6 IVPB Last administered on 01/14/17 06:31; Admin Dose 400 MLS/HR; Start 01/10/17 at 16:30 IV Flush 10 ml 10 ml PRN PRN IV IV PROTOCOL; Start 01/10/17 at 20:30 Sodium Chloride 1,000 ml @ 50 mls/hr Q20H IV Last administered on 01/12/17 18: 24; Admin Dose 50 MLS/HR; Start 01/11/17 at 09:00 Vancomycin HCl/ Sodium Chloride (Vancocin/NS) 250 ml @ 83.333 mls/ hr Q8H IVPB Last administered on 01/14/17 04:41; Admin Dose 83.333 MLS/HR; Start 01/11/17 at 13:00 Miscellaneous Information (*Rx Drug Level Order Reminder*) VANCOMYCIN TROUGH AT 1,200 ON 01/14 ONCE ONCE XX ; Start 01/14/17 at 12:00; Stop 01/14/17 at 12:01 Prednisone (Prednisone) 20 mg DAILY PO ; Start 01/15/17 at 09:00 SHELBY WHITE Jan 14, 2017 10:05
[2017-01-14] MEDS: ALBUTEROL/IPRATROPIUM (NEB) 3 ML AMP HHN PRN ×2 (10:39→16:23)
[2017-01-14 11:16] LABS: ALBUMIN 2.5 g/dl (3.3-4.9); CREATININE 0.55 mg/dl (0.61-1.24); MAGNESIUM 1.8 mg/dl (1.7-2.5); POTASSIUM 3.9 mmol/L (3.5-5.1)
[2017-01-14 11:20] LABS: CALCIUM 5.1 mg/dl (8.4-10.2)
[2017-01-14] MEDS ORDERED: CALCIUM GLUCONATE 10% 2 GM in SOD CHLORIDE 0.9% 100 ML IVPB ONE ×2 (12:00→23:00)
--- NOTE | 2017-01-14 12:57 | CONS ---
Date/Time of Note Date/Time of Note DATE: 01/14/17 TIME: 12:56 Assessment/Plan Assessment/Plan Chief Complaint/Hosp Course 1. Hyponatremia, resolved. Etiology is multifactorial secondary to volume depletion. Continue current treatment plan. 2. Hypokalemia. Replete potassium chloride. 3. Mineral bone disorder. Will replete with potassium phosphate as the patient is hypophosphatemic. 4. Nonoliguric acute kidney injury. Etiology secondary to hemodynamics. Renal function has improved. Continue to monitor. 5. Abdominal pain, improving. Continue current treatment plan. 6. Nausea and vomiting. Continue current medical management. 7. Sepsis secondary to pneumonia. Continue current antibiotic regimen. 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 Continue current treatment plan. Problems: Consultation Date/Type/Reason Admit Date/Time Jan 09, 2017 at 19:08 Initial Consult Date 01/10/17 Type of Consultation: nephrology Reason for Consultation pt seen and examined all noted good uop. Referring Provider: YAO RAHMAN Exam/Review of Systems Vital Signs Vitals Vital Signs Date Time Temp Pulse Resp B/P Pulse Ox O2 Delivery O2 Flow Rate FiO2 01/14/17 10:40 101 25 98 21 01/14/17 10:00 01/14/17 07:43 98.5 114/67 01/14/17 02:10 Nasal Cannula Intake and Output 01/13/17 01/13/17 01/14/17 14:59 22:59 06:59 Intake Total 1050 ml 1880 ml Output Total 700 ml Balance 1050 ml 1180 ml Exam Psych: nl mood/affect, no complaints Head: atraumatic, normocephalic Eyes: EOMI, PERRL, nl conjunctiva, nl lids, nl sclera Neck: non-tender, supple Respiratory: clear to auscultation, normal air movement Cardiovascular: nl pulses, regular rate and rhythm Gastrointestinal: nl liver, spleen, non-tender, soft Extremities: normal pulses Results Result Diagram: 01/14/17 0455 01/14/17 1035 Results 24 hrs Laboratory Tests Test 01/14/17 04:55 01/14/17 10:35 01/14/17 11:49 White Blood Count 10.2 Red Blood Count 3.39 L Hemoglobin 9.7 L Hematocrit 29.4 L Mean Corpuscular Volume 86.7 Mean Corpuscular Hemoglobin 28.6 L Mean Corpuscular Hemoglobin Concent 33.0 Red Cell Distribution Width 16.6 H Platelet Count 151 Mean Platelet Volume 10.3 Neutrophils % 90.6 H Lymphocytes % 1.1 L Monocytes % 6.1 Eosinophils % 0.0 Basophils % 0.1 Nucleated Red Blood Cells % 0.0 Neutrophils # 9.3 H Lymphocytes # 0.1 L Monocytes # 0.6 Eosinophils # 0.0 Basophils # 0.0 Nucleated Red Blood Cells # 0.0 Sodium Level 138 136 Potassium Level 3.2 L 3.9 Chloride Level 101 100 Carbon Dioxide Level 26 26 Anion Gap 14 14 Blood Urea Nitrogen 5 L 6 L Creatinine 0.49 L 0.55 L Glucose Level 112 96 Calcium Level 5.0 *L 5.1 *L Phosphorus Level 1.2 L 1.0 L Magnesium Level 1.7 1.8 Ionized Calcium (Measured) 0.7 L Albumin 2.5 L Lipase 3409 H Parathyroid Hormone (Intact) Vancomycin Level Trough 13.6 Medications Medications Current Medications Docusate Sodium (Colace) 100 mg Q12H PRN PO CONSTIPATION Last administered on 10:46; Admin Dose 100 MG; Start 01/09/17 at 19:30 Magnesium Hydroxide (Milk Of Mag) 30 ml DAILY PRN PO CONSTIPATION; Start at 19:30 Sodium Biphosphate/ Sodium Phosphate (Fleet Enema) 133 ml DAILY PRN [place] CONSTIPATION; Start 01/09/17 at 19:30 Heparin Sodium (Porcine) 5000 unit 5,000 unit Q12 SC Last administered on 08:44; Admin Dose 5,000 UNIT; Start 01/09/17 at 21:00 Piperacillin Sod/ Tazobactam Sod (Zosyn 3.375gm/ 100 ml (Pmx)) 100 ml @ 200 mls /hr Q6 IVPB Last administered on 01/14/17 11:59; Admin Dose 200 MLS/HR; Start 01/10/17 at 00:00 Vancomycin HCl (Vanco Iv Per Pharmacy) VANCOMYCIN PER PHARMACY NOTE XX ; Start 01/09/17 at 19:30 Nitroglycerin (Nitroglycerin (Sl Tab) 0.4 Mg) 1 tab Q5M PRN SL ANGINA; Start at 19:30 Metoprolol Succinate (Toprol Xl) 25 mg QHS PO Last administered on 01/13/17 21: 33; Admin Dose 25 MG; Start 01/09/17 at 21:00 Trimethoprim/ Sulfamethoxazole (Bactrim (Ds)) 1 tab DAILY PO Last administered on 01/14/17 08:42; Admin Dose 1 TAB; Start 01/10/17 at 09:00 [facility] This patient aranda... PRN PRN XX WOUND CARE; Start 01/10/17 at 03:30 Hydromorphone HCl (Dilaudid MAPPING PILOT) 1.0 MG/HR CONTINUOUS RATE .... Q4PCA IV Last administered on 01/14/17 05:35; Admin Dose 6 MG; Start 01/10/17 at 15:30 Ondansetron HCl 4 mg 4 mg Q6 IV Last administered on 01/14/17 11:54; Admin Dose 4 MG; Start 01/10/17 at 15:30 Acetaminophen (Ofirmev 1000mg/ 100ml Iv) 100 ml @ 400 mls/hr Q6 IVPB Last administered on 01/14/17 11:54; Admin Dose 400 MLS/HR; Start 01/10/17 at 16:30 IV Flush 10 ml 10 ml PRN PRN IV IV PROTOCOL; Start 01/10/17 at 20:30 Sodium Chloride 1,000 ml @ 200 mls/hr Q5H IV Last administered on 01/14/17 12: 37; Admin Dose 200 MLS/HR; Start 01/11/17 at 09:00 Vancomycin HCl/ Sodium Chloride (Vancocin/NS) 250 ml @ 83.333 mls/ hr Q8H IVPB Last administered on 01/14/17 04:41; Admin Dose 83.333 MLS/HR; Start 01/11/17 at 13:00 Prednisone 20 mg 20 mg DAILY PO ; Start 01/15/17 at 09:00 Calcium Gluconate 2 gm/Sodium Chloride 120 ml @ 60 mls/hr ONCE ONCE IVPB Last administered on 01/14/17 12:32; Admin Dose 60 MLS/HR; Start 01/14/17 at 12: 00; Stop 01/14/17 at 13:59 Sodium Phosphate/ Sodium Chloride (Sodium Phosphate/NS) 255 ml @ 63.75 mls/ hr ONCE ONCE IVPB ; Start 01/14/17 at 14:00; Stop 01/14/17 at 17:59 GABRIELLE FERNANDO MD Jan 14, 2017 12:57
[2017-01-14] MEDS ORDERED: BARIUM SULF 2% 450 ML BTL (BERRY SMOOTHIE) PO ONE (13:00)
--- NOTE | 2017-01-14 13:04 | PN ---
Date/Time of Note Date/Time of Note DATE: 01/14/17 TIME: 13:01 Assessment/Plan VTE Prophylaxis VTE Prophylaxis Intervention: heparin Lines/Catheters IV Catheter Type (from Nrsg): PICC Line Central line still needed: Yes Urinary Cath still in place: No Assessment/Plan Chief Complaint/Hosp Course Patient is a 31-year-old male with a past medical history of large B- cell lymphoma presented to the ED complaining of abdominal pain, nausea, vomiting, fever 2 weeks duration. Patient's last chemotherapy was approximately 1 month ago. Assessment and plan Sepsis, secondary pneumonia, resolving pancreatitis, acute hypocalcemia electrolyte derangement Abdominal pain Nausea Vomiting Hyponatremia UTI Hypokalemia Acute kidney injury B-cell lymphoma Lactic acidosis Plan -increasing abdominal pain and low calcium, repeat still low. replete calcium IV ordered. endocrine consult placed -lipase elevated, GI consulted for pancreatitis. get CRP and will trend. increase fluids to 200/hr, continue abx. ABG ordered. repeat CT ordered. -PNA/UTI, on abx. -Palliative care on board, controlling pain -Patient does have an oncologist, however oncology does not have privileges here , oncology has been consulted -Ultrasound biopsy done, pending path -CT of the abdomen pelvis and chest show multiple areas of nodules likely lymphoma, also possible pneumonia, patient on antibiotics -Multifactorial reasons for electrolyte derangement, all likely secondary to intractable nausea and vomiting, patient's labs are improving slowly, nephrology on board. mostly resolved. DISPO: keep inpatient for pancreatitis Problems: Subjective 24 Hr Interval Summary Free Text/Dictation worsening abdominal pain. Exam/Review of Systems Vital Signs Vitals Vital Signs Date Time Temp Pulse Resp B/P Pulse Ox O2 Delivery O2 Flow Rate FiO2 01/14/17 10:40 101 25 98 21 01/14/17 10:00 01/14/17 07:43 98.5 114/67 01/14/17 02:10 Nasal Cannula Intake and Output 01/13/17 01/13/17 01/14/17 15:00 23:00 07:00 Intake Total 1050 ml 1880 ml Output Total 700 ml Balance 1050 ml 1180 ml Exam Physical exam General: Patient is laying in bed and answers questions appropriately Mentation: Patient is alert and oriented 4, Head: Normocephalic atraumatic Eyes: EOMI, pupils reactive to light Neck: Supple, nontender, midline Respiratory: coarse to auscultation bilaterally Cardiovascular: regular rate, no obvious murmurs Gastrointestinal: mildly tender to palpation, bowel sounds heard. Neurological: Moves all extremities spontaneously Skin: multiple lesions surrounding body, Results Result Diagram: 01/14/17 0455 01/14/17 1035 Results 24 hrs Laboratory Tests Test 01/14/17 04:55 01/14/17 10:35 01/14/17 11:49 White Blood Count 10.2 Red Blood Count 3.39 L Hemoglobin 9.7 L Hematocrit 29.4 L Mean Corpuscular Volume 86.7 Mean Corpuscular Hemoglobin 28.6 L Mean Corpuscular Hemoglobin Concent 33.0 Red Cell Distribution Width 16.6 H Platelet Count 151 Mean Platelet Volume 10.3 Neutrophils % 90.6 H Lymphocytes % 1.1 L Monocytes % 6.1 Eosinophils % 0.0 Basophils % 0.1 Nucleated Red Blood Cells % 0.0 Neutrophils # 9.3 H Lymphocytes # 0.1 L Monocytes # 0.6 Eosinophils # 0.0 Basophils # 0.0 Nucleated Red Blood Cells # 0.0 Sodium Level 138 136 Potassium Level 3.2 L 3.9 Chloride Level 101 100 Carbon Dioxide Level 26 26 Anion Gap 14 14 Blood Urea Nitrogen 5 L 6 L Creatinine 0.49 L 0.55 L Glucose Level 112 96 Calcium Level 5.0 *L 5.1 *L Phosphorus Level 1.2 L 1.0 L Magnesium Level 1.7 1.8 Ionized Calcium (Measured) 0.7 L Albumin 2.5 L Lipase 3409 H Parathyroid Hormone (Intact) Vancomycin Level Trough 13.6 Medications Medications Current Medications Docusate Sodium (Colace) 100 mg Q12H PRN PO CONSTIPATION Last administered on 10:46; Admin Dose 100 MG; Start 01/09/17 at 19:30 Magnesium Hydroxide (Milk Of Mag) 30 ml DAILY PRN PO CONSTIPATION; Start at 19:30 Sodium Biphosphate/ Sodium Phosphate (Fleet Enema) 133 ml DAILY PRN RI CONSTIPATION; Start 01/09/17 at 19:30 Heparin Sodium (Porcine) 5000 unit 5,000 unit Q12 SC Last administered on 08:44; Admin Dose 5,000 UNIT; Start 01/09/17 at 21:00 Piperacillin Sod/ Tazobactam Sod (Zosyn 3.375gm/ 100 ml (Pmx)) 100 ml @ 200 mls /hr Q6 IVPB Last administered on 01/14/17 11:59; Admin Dose 200 MLS/HR; Start 01/10/17 at 00:00 Vancomycin HCl (Vanco Iv Per Pharmacy) VANCOMYCIN PER PHARMACY NOTE XX ; Start 01/09/17 at 19:30 Nitroglycerin (Nitroglycerin (Sl Tab) 0.4 Mg) 1 tab Q5M PRN SL ANGINA; Start at 19:30 Metoprolol Succinate (Toprol Xl) 25 mg QHS PO Last administered on 01/13/17 21: 33; Admin Dose 25 MG; Start 01/09/17 at 21:00 Trimethoprim/ Sulfamethoxazole (Bactrim (Ds)) 1 tab DAILY PO Last administered on 01/14/17 08:42; Admin Dose 1 TAB; Start 01/10/17 at 09:00 Miscellaneous Information (Pending [facility] Order For Wound Care) This patient aranda... PRN PRN XX WOUND CARE; Start 01/10/17 at 03:30 Hydromorphone HCl (Dilaudid GARNETT ROOM WORKER) 1.0 MG/HR CONTINUOUS RATE .... Q4PCA IV Last administered on 01/14/17 05:35; Admin Dose 6 MG; Start 01/10/17 at 15:30 Ondansetron HCl 4 mg 4 mg Q6 IV Last administered on 01/14/17 11:54; Admin Dose 4 MG; Start 01/10/17 at 15:30 Acetaminophen (Ofirmev 1000mg/ 100ml Iv) 100 ml @ 400 mls/hr Q6 IVPB Last administered on 01/14/17 11:54; Admin Dose 400 MLS/HR; Start 01/10/17 at 16:30 IV Flush 10 ml 10 ml PRN PRN IV IV PROTOCOL; Start 01/10/17 at 20:30 Sodium Chloride 1,000 ml @ 200 mls/hr Q5H IV Last administered on 01/14/17 12: 37; Admin Dose 200 MLS/HR; Start 01/11/17 at 09:00 Vancomycin HCl/ Sodium Chloride (Vancocin/NS) 250 ml @ 83.333 mls/ hr Q8H IVPB Last administered on 8/5/17at 04:41; Admin Dose 83.333 MLS/HR; Start 01/11/17 at 13:00 Prednisone 20 mg 20 mg DAILY PO ; Start 01/15/17 at 09:00 Calcium Gluconate 2 gm/Sodium Chloride 120 ml @ 60 mls/hr ONCE ONCE IVPB Last administered on 01/14/17t 12:32; Admin Dose 60 MLS/HR; Start 01/14/17 at 12: 00; Stop 01/14/17 at 13:59 Sodium Phosphate/ Sodium Chloride (Sodium Phosphate/NS) 255 ml @ 63.75 mls/ hr ONCE ONCE IVPB ; Start 01/14/17 at 14:00; Stop 01/14/17 at 17:59 YAO RAHMAN Jan 14, 2017 13:04
[2017-01-14] MEDS ORDERED: SODIUM PHOSPHATE 15 MMOL in SOD CHLORIDE 0.9% 250 ML IVPB ONE (14:00)
[2017-01-14] MEDS ORDERED: MAGNESIUM SULFATE 1 GM/D5W 100 ML IVPB ONE (14:00)
[2017-01-14 14:37] LABS: AADO2 Arterial 49.9 mmHg (7.0-24.0); Allen Test ACCEPTAB; Arterial COHb 0.3 % (0.0-3.0); Arterial Fraction of Oxyhgb 91.3 % (93.0-99.0); Arterial HCO3 21.6 mmol/L (22.0-26.0); Arterial MetHb 0.6 % (0.0-1.5); MODE ROOM AIR
[2017-01-14 15:39] LABS: ALBUMIN 2.1 g/dl (3.3-4.9); BILIRUBIN,INDIRECT 0.4 mg/dl (0-1.1); BILIRUBIN,TOTAL 0.4 mg/dl (0.2-1.3); TOTAL PROTEIN 4.5 g/dl (6.1-8.1)
[2017-01-14] MEDS ORDERED: CALCITRIOL 1 MCG INJ IV ONE (16:00)
[2017-01-14 16:05] LABS: CHOL/HDL RATIO 8.3 RATIO
[2017-01-14] MEDS: ERGOCALCIFEROL 50,000 UNIT CAP PO SCH (16:43)
[2017-01-14] MEDS ORDERED: SOD CHLORIDE 0.9% 100 ML ONE (18:46)
[2017-01-14] MEDS ORDERED: IOHEXOL 300MG/ML 150 ML BTL ONE (18:46)
--- NOTE | 2017-01-14 20:20 | CONS ---
Date/Time of Note Date/Time of Note DATE: 01/14/17 TIME: 20:15 Assessment/Plan Assessment/Plan Chief Complaint/Hosp Course ID PROGRESS NOTE CURRENT ABX=> Bactrim po + Vanco IV #4 + Zosyn #4 24H INTERVAL SUMMARY * s/p 01/12/[address] guided biopsy of left flank subcutaneous nodule. * Afebrile x >72 hours -- spiking fevers >102. on 01/09 & 01/10 * CT: -CT of the abdomen pelvis and chest show multiple areas of nodules likely lymphoma, also possible pneumonia, patient on antibiotics * RINE CULTURE Final Organism 1 ENTEROCOCCUS SPECIES COLONY COUNT 10,000 - 20,000 CFU/ml ENT SPS M.I.C. 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 Nausea/Vomiting -> ABD pain due to lymphoma + Acute Pancreatitis 4. Presumed RAMU: likely pre-renal 2/2 vomiting 5. Hyponatremia and Hypokalemia: 2/2 vomiting 6. Enterococcal UTI -> Low colony count INVASIVES: RUEXT PICC ABX ALLERGY: EGG/MILK CURRENT ABX: Bactrim po + Vanco IV #4 + Zosyn #4 ID PLAN 1. Afebrile >72 Hrs, no longer neutropenic 2. FEVERS likely due to early Enterococcal UTI + HCAP + acute pancreatitis 3. Appears plan is for repeat CT . Problems: Consultation Date/Type/Reason Admit Date/Time Jan 09, 2017 at 19:08 Initial Consult Date 01/10/17 Type of Consultation: ID Referring Provider: YAO RAHMAN Exam/Review of Systems Vital Signs Vitals Vital Signs Date Time Temp Pulse Resp B/P Pulse Ox O2 Delivery O2 Flow Rate FiO2 01/14/17 16:28 2.0 01/14/17 16:23 113 20 97 21 01/14/17 14:34 99.8 123/57 01/14/17 02:10 Nasal Cannula Intake and Output 01/13/17 01/13/17 01/14/17 15:00 23:00 07:00 Intake Total 1050 ml 1880 ml Output Total 700 ml Balance 1050 ml 1180 ml Results Result Diagram: 01/14/17 0455 01/14/17 1035 Results 24 hrs Laboratory Tests Test 01/14/17 04:55 01/14/17 10:35 01/14/17 11:49 01/14/17 12:13 White Blood Count 10.2 Red Blood Count 3.39 L Hemoglobin 9.7 L Hematocrit 29.4 L Mean Corpuscular Volume 86.7 Mean Corpuscular Hemoglobin 28.6 L Mean Corpuscular Hemoglobin Concent 33.0 Red Cell Distribution Width 16.6 H Platelet Count 151 Mean Platelet Volume 10.3 Neutrophils % 90.6 H Lymphocytes % 1.1 L Monocytes % 6.1 Eosinophils % 0.0 Basophils % 0.1 Nucleated Red Blood Cells % 0.0 Neutrophils # 9.3 H Lymphocytes # 0.1 L Monocytes # 0.6 Eosinophils # 0.0 Basophils # 0.0 Nucleated Red Blood Cells # 0.0 Sodium Level 138 136 Potassium Level 3.2 L 3.9 Chloride Level 101 100 Carbon Dioxide Level 26 26 Anion Gap 14 14 Blood Urea Nitrogen 5 L 6 L Creatinine 0.49 L 0.55 L Glucose Level 112 96 Calcium Level 5.0 *L 5.1 *L Phosphorus Level 1.2 L 1.0 L Magnesium Level 1.7 1.8 Triglycerides Level 364 H Cholesterol Level 109 LDL Cholesterol, Calculated 23 HDL Cholesterol 13 L Cholesterol/HDL Ratio 8.3 Ionized Calcium (Measured) 0.7 L Albumin 2.5 L Lipase 3409 H Vitamin D 1,25-Dihydroxy < 12.8 L Parathyroid Hormone (Intact) Vancomycin Level Trough 13.6 Blood Gas Specimen Source Blood arterial Arterial Blood Date Drawn 01/14/2017 2:25:01 PM Arterial Blood pH (Temp corrected) 7.430 Arterial Blood pCO2 (Temp correct) 33.3 L Arterial Blood pO2 (Temp corrected) 60.0 L Arterial Blood HCO3 21.6 L Arterial Blood Base Excess -2.0 Arterial Blood Oxygen Saturation 92.1 L Miguel Test ACCEPTAB Arterial Blood Gas Puncture Site Left Radial Arterial Blood Carboxyhemoglobin 0.3 Arterial Blood Methemoglobin 0.6 Blood Gas A-a O2 Differential 49.9 H Oxyhemoglobin Percent 91.3 L Total Hemoglobin 12.0 Blood Gas Temperature 37.0 Blood Gas Modality ROOM AIR FiO2 21.0 Blood Gas Notified Whom AC Blood Gas Notified Time 01/14/2017 2:37:07 PM Test 01/14/17 14:03 01/14/17 17:21 Calcium Level 11.9 #H Ionized Calcium (Measured) 1.8 #H Total Bilirubin 0.4 Direct Bilirubin 0.00 Indirect Bilirubin 0.4 Aspartate Amino Transf (AST/SGOT) 142 H Alanine Aminotransferase (ALT/SGPT) 98 H Alkaline Phosphatase 108 Troponin I < 0.012 C-Reactive Protein 5.5 H Total Protein 4.5 L Albumin 2.1 L Lactic Acid Level 3.9 *H Lactate Dehydrogenase 1419 H Medications Medications Current Medications Docusate Sodium (Colace) 100 mg Q12H PRN PO CONSTIPATION Last administered on 10:46; Admin Dose 100 MG; Start 01/09/17 at 19:30 Magnesium Hydroxide (Milk Of Mag) 30 ml DAILY PRN PO CONSTIPATION; Start at 19:30 Sodium Biphosphate/ Sodium Phosphate (Fleet Enema) 133 ml DAILY PRN [place] CONSTIPATION; Start 01/09/17 at 19:30 Heparin Sodium (Porcine) 5000 unit 5,000 unit Q12 SC Last administered on 08:44; Admin Dose 5,000 UNIT; Start 01/09/17 at 21:00 Piperacillin Sod/ Tazobactam Sod (Zosyn 3.375gm/ 100 ml (Pmx)) 100 ml @ 200 mls /hr Q6 IVPB Last administered on 01/14/17 11:59; Admin Dose 200 MLS/HR; Start 01/10/17 at 00:00 Vancomycin HCl (Vanco Iv Per Pharmacy) VANCOMYCIN PER PHARMACY NOTE XX ; Start 01/09/17 at 19:30 Nitroglycerin (Nitroglycerin (Sl Tab) 0.4 Mg) 1 tab Q5M PRN SL ANGINA; Start at 19:30 Metoprolol Succinate (Toprol Xl) 25 mg QHS PO Last administered on 01/13/17 21: 33; Admin Dose 25 MG; Start 01/09/17 at 21:00 Trimethoprim/ Sulfamethoxazole (Bactrim (Ds)) 1 tab DAILY PO Last administered on 01/14/17 08:42; Admin Dose 1 TAB; Start 01/10/17 at 09:00 Miscellaneous Information (Pending [facility] Order For Wound Care) This patient aranda... PRN PRN XX WOUND CARE; Start 01/10/17 at 03:30 Hydromorphone HCl (Dilaudid ASSOCIATE ACCOUNTANT) 1.0 MG/HR CONTINUOUS RATE .... Q4PCA IV Last administered on 01/14/17 10:02; Admin Dose 6 MG; Start 01/10/17 at 15:30 Ondansetron HCl 4 mg 4 mg Q6 IV Last administered on 01/14/17 11:54; Admin Dose 4 MG; Start 01/10/17 at 15:30 Acetaminophen (Ofirmev 1000mg/ 100ml Iv) 100 ml @ 400 mls/hr Q6 IVPB Last administered on 01/14/17 11:54; Admin Dose 400 MLS/HR; Start 01/10/17 at 16:30 IV Flush 10 ml 10 ml PRN PRN IV IV PROTOCOL; Start 01/10/17 at 20:30 Sodium Chloride 1,000 ml @ 200 mls/hr Q5H IV Last administered on 01/14/17 12: 37; Admin Dose 200 MLS/HR; Start 01/11/17 at 09:00 Vancomycin HCl/ Sodium Chloride (Vancocin/NS) 250 ml @ 83.333 mls/ hr Q8H IVPB Last administered on 01/14/17 13:29; Admin Dose 83.333 MLS/HR; Start 01/11/17 at 13:00 Prednisone (Prednisone) 20 mg DAILY PO ; Start 01/15/17 at 09:00 Ergocalciferol (Drisdol) 50,000 unit Sa@16 PO Last administered on 01/14/17t 16: 43; Admin Dose 50,000 UNIT; Start 01/14/17 at 16:00 AARON BELLAMY NP Jan 14, 2017 20:19
--- NOTE | 2017-01-14 21:30 | RADRPT ---
PROCEDURE: CT abdomen and pelvis IV and oral contrast. CLINICAL INDICATION: Pancreatitis. TECHNIQUE: IV contrast enhanced CT examination of the abdomen and pelvis, with axial, sagittal and coronal reformatted images. 100 cc Isovue 300 nonionic IV contrast were employed. Automated dose e xposure control was employed. CTDI: 23.70 mGy and DLP: 1529.98 mGy-cm. COMPARISON: CT abdomen and pelvis dated 01/12/2017. FINDINGS: CT abdomen: Mild right lung base pleural effusion with dependent atelectasis in the right lower lobe. Scattered nodular infiltrates at the right lung base represent pneumonia. Elevation of the right hemidiaphragm . The left lung base is clear. The heart size is normal, without pericardial thickening or effusion . Pancreatitis again seen with peripancreatic fluid, which is not without significant private branch exchange repairer the interval. There is new mild fluid over the liver and spleen. Intraperitoneal fluid again extends i nto bilateral abdomen, right greater than left, mildly increased over the interval. No definite areas of low attenuation in the postcontrast pancreas to suggest pancreatic necrosis. No evident abscess or air to suggest infection. The liver is normal in size and density without focal mass or intrahepatic biliary dilatation. The spleen is normal in size and homogeneous in density. The stomach is partially collapsed, but is milka ssly unremarkable. The gallbladder and biliary tree are unremarkable and there is no evidence for b iliary dilatation. The adrenal glands are symmetric and normal. The kidneys are symmetrically unre markable as well. No renal calculus or obstructive uropathy or mass lesion is seen. The aorta is of normal caliber. No aortic vascular calcifications are present. There is no retrope ritoneal lymphadenopathy. The brittney hepatis region is clear. The colon is opacified by contrast material and there is mild luminal narrowing in the featureless d escending colon. This suggests a degree of inflammation from pancreatic fluid. Contrast opacified l oops of small bowel are unremarkable. CT pelvis: Free fluid in the pelvis is increased over interval, principally within the right zelda pelvis. Contrast opacified small bowel in the pelvis demonstrates mild luminal narrowing suggesting inflamma tory changes secondary to pancreatic fluid. The pelvic organs are otherwise normal. The pelvic side merrill and inguinal regions are clear. The sigmoid colon and rectum are all unremarkable. No evident mass or adenopathy. No acute inflammation is seen. The appendix is not visualized. The surrounding osseous structures are remarkable for mild degenerative spondylosis of the spine. N o osteolytic or osteoblastic lesion is detected. IMPRESSION: 1. Small right pleural effusion with atelectasis and right lung base pneumonia. 2. Pancreatitis with no significant change in peripancreatic fluid and mildly increased fluid exten ding into the bilateral abdomen, right greater than left. 3. New mild free fluid over the liver and spleen, and increased mild to moderate fluid in the pelvi s, right greater than left. 4. No evident regions of low attenuation in the postcontrast pancreas to suggest pancreatic necrosi s. 5. No evident abscess or air over the pancreas to suggest infection. 6. Mild regions of inflammatory changes in the small bowel and colon, likely secondary to pancreati c fluid. RPTAT: [facility] Physician Andria Date Time Electronically viewed and signed by Physician Andria on 01/14/2017 21:29 RS/
[2017-01-14] MEDS: METOPROLOL (XL) 25 MG TAB PO SCH (22:39)
[2017-01-15] VITALS (23 sets, daily range): BP systolic 97–134; BP diastolic 38–84; PULSE 97–115; RESP 14–24
[2017-01-15] MEDS: PIPER-TAZO 3.375 GM IV (PMX) 100 ML IVPB SCH ×5 (01:36→23:07)
[2017-01-15] MEDS: ONDANSETRON 4 MG INJ IV SCH ×5 (01:36→23:06)
[2017-01-15] MEDS: HYDROmorphONE 0.2 MG/ML PCA IV SCH ×6 (01:47→22:32)
[2017-01-15 04:54] LABS: ABNORMAL IP MESSAGE 1; BASOPHILS % 0.2 % (0.0-2.0); HEMATOCRIT 29.4 % (42.0-52.0); HEMOGLOBIN 9.8 g/dl (14.0-18.0); LYMPHOCYTES # 0.2 10^3/ul (0.8-2.9); LYMPHOCYTES % 2.2 % (15.0-51.0); MEAN CORPUSCULAR HEMOGLOBIN 28.9 pg (29.0-33.0); MEAN CORPUSCULAR HGB CONC 33.3 g/dl (32.0-37.0); MEAN CORPUSCULAR VOLUME 86.7 fl (82.0-101.0); MEAN PLATELET VOLUME 9.6 fl (7.4-10.4); MONOCYTE # 0.8 10^3/ul (0.3-0.9); MONOCYTES % 9.7 % (0.0-11.0); NEUTROPHIL # 7.5 10^3/ul (1.6-7.5); NEUTROPHILS % 86.2 % (39.0-77.0); PLATELET COUNT 153 10^3/UL (140-415); POSITIVE DIFF @See below; RED BLOOD COUNT 3.39 10^6/ul (4.70-6.10); RED CELL DISTRIBUTION WIDTH 16.6 % (11.5-14.5); WHITE BLOOD COUNT 8.7 10^3/ul (4.8-10.8)
[2017-01-15] MEDS: SOD CHLORIDE 0.9% 1,000 ML IV SCH ×5 (05:17→23:56)
[2017-01-15 05:23] LABS: CREATININE 0.65 mg/dl (0.61-1.24); POTASSIUM 3.5 mmol/L (3.5-5.1)
[2017-01-15] MEDS: VANCOMYCIN 1.25 GM in SOD CHLORIDE 0.9% 250 ML IVPB SCH ×3 (05:25→20:11)
[2017-01-15 05:30] LABS: MAGNESIUM 1.6 mg/dl (1.7-2.5); PHOSPHORUS 0.8 mg/dl (2.5-4.9)
[2017-01-15 06:24] LABS: CALCIUM 4.5 mg/dl (8.4-10.2)
[2017-01-15 06:27] LABS: C-REACTIVE PROTEIN 22.5 mg/dl (0.0-0.9)
[2017-01-15] MEDS: ACETAMINOPHEN 1000MG/100ML IV 100 ML IVPB SCH ×4 (06:31→23:07)
[2017-01-15] MEDS ORDERED: MAGNESIUM SULFATE 2 GM/50 ML 50 ML IVPB ONE (07:30)
[2017-01-15] MEDS ORDERED: POTASSIUM PHOSPHATE 30 MM in SOD CHLORIDE 0.9% 250 ML IVPB ONE (08:00)
[2017-01-15] MEDS: TRIMETHOPRIM/SULFAMETHOX (DS) TAB PO SCH (08:16)
[2017-01-15] MEDS: predniSONE 20 MG TAB PO SCH (08:16)
[2017-01-15] MEDS: HEPARIN 5,000 UNIT/0.5 ML VIAL SC SCH ×2 (08:18→20:07)
[2017-01-15] MEDS ORDERED: predniSONE 20 MG TAB PO SCH (09:00)
[2017-01-15 09:07] LABS: AMYLASE 191 U/L (11-123)
--- NOTE | 2017-01-15 09:19 | CONS ---
Date/Time of Note Date/Time of Note DATE: 01/15/17 TIME: 09:06 Assessment/Plan Assessment/Plan Problems: (1) Lymphoma, anaplastic large cell, abdomen Status: Chronic Comment: The patient's primary hammer mill operator is Dr. Wisdom at [facility]. Dr. Kc is seeing the patient at this facility. This is a very concerning situation. I suspect some of his symptoms may be be symptoms from lymphoma however I believe he is also infected. Also concerned about just how compromises intra-abdominal organs are by this process including the liver. GI consultation is pending (2) Obesity (BMI 30-39.9) Status: Chronic Comment: Noted. This is after significant weight loss with the lymphoma (3) Acute pancreatitis Status: Acute Comment: He has acute pancreatitis and this is advancing. He is gone from being you calcium up to hypocalcemic his had a significant drop in his hemoglobin. The etiology is set this off is not entirely clear. I would normally suspect some type of biliary sludge however given his intra-abdominal lymphoma this is a concern. In addition he has been on Bactrim for reasons that are not 100% clear to me I will defer off to infectious disease on this. GI will be seeing the patient. For now we will try and correct the calcium as best we can. Please note I did have no reason to suspect adrenal insufficiency Qualifiers: Qualified Code: K85.91 - Acute pancreatitis with uninfected necrosis, unspecified pancreatitis type (4) Hepatosplenomegaly Comment: Duration of this is unknown. The CT scan is somewhat unclear about just how significantly involved this infiltrative processes. (5) Hypocalcemia Status: Acute Comment: The magnesium is being corrected and now we will also be giving IV calcium. I have a suspicion regarding need a calcium drip. Please note he did have some vitamin D deficiency I have repleted that. (6) Enterococcus UTI Status: Acute Comment: He has been on antibiotics for this infectious diseases guiding (7) Septic shock Status: Acute Comment: He is still quite sick. Given the pancreatitis with some of the poor prognosis features around it he is being monitored in the ICU which is appropriate to circumstance. 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 He came into the hospital with abdominal pain but at that time had a low lipase level. At that time his calciums were normal his thyroid function was normal he had on appropriate serum cortisol despite having been on tapering dosages of prednisone as an outpatient. During the course of hospitalization his abdominal symptoms changed and Dr. Hill reordered his lipase which was markedly elevated. Because of this he is been added the diagnosis of acute pancreatitis. The patient does not consume alcohol and the best of her knowledge has not been on any medications and I do this however he was recently placed on Bactrim. He was transferred to the intensive care unit with significant hypocalcemia and the nursing staff being concerned for his status. Constitutional: chills, febrile, other (Reiger's. Please note this may be be symptoms of his lymphoma) ENT: no complaints Respiratory: cough, shortness of breath Cardiovascular: no complaints Gastrointestinal: nausea, pain, vomiting Genitourinary: no complaints Musculoskeletal: no complaints Psychological: nl mood/affect, no complaints Past Medical History 1) non-Hodgkin's lymphoma-large B cell anaplastic type with multiple subcutaneous nodules. 2) obesity Past Surgical History Past Surgical Hx: noncontributory Family History Significant Family History: no pertinent family hx Social History Alcohol Use: none Smoking Status: Never smoker Drug Use: none Exam/Review of Systems Vital Signs Vitals Vital Signs Date Time Temp Pulse Resp B/P Pulse Ox O2 Delivery O2 Flow Rate FiO2 01/15/17 06:54 16 01/15/17 05:00 110 97/49 99 2.0 01/15/17 04:00 104.1 01/15/17 02:32 27 01/15/17 00:00 Nasal Cannula Intake and Output 01/14/17 01/14/17 01/15/17 15:00 23:00 07:00 Intake Total 200 ml 2645 ml 2583 ml Output Total 2000 ml 1300 ml Balance 200 ml 645 ml 1283 ml Exam Ill appearing gentleman with multiple tattoos lying in bed nauseated and occasionally throwing up Constitutional: alert, oriented Neck: non-tender, supple Respiratory: clear to auscultation, normal air movement Cardiovascular: nl pulses, regular rate and rhythm Gastrointestinal: firm, hepatomegaly, tender Extremities: normal pulses Skin: other (Multiple scattered subcutaneous nodules with excoriations including on the upper right chest left arm and multiple other location) Results Result Diagram: 01/15/17 0415 01/15/17 0415 Results 24 hrs Laboratory Tests Test 01/14/17 10:35 01/14/17 11:49 01/14/17 12:13 01/14/17 14:03 Sodium Level 136 Potassium Level 3.9 Chloride Level 100 Carbon Dioxide Level 26 Anion Gap 14 Blood Urea Nitrogen 6 L Creatinine 0.55 L Glucose Level 96 Calcium Level 5.1 *L 11.9 #H Ionized Calcium (Measured) 0.7 L 1.8 #H Phosphorus Level 1.0 L Magnesium Level 1.8 Albumin 2.5 L 2.1 L Lipase 3409 H Vitamin D 1,25-Dihydroxy < 12.8 L Parathyroid Hormone (Intact) Vancomycin Level Trough 13.6 Blood Gas Specimen Source Blood arterial Arterial Blood Date Drawn 01/14/2017 2:25:01 PM Arterial Blood pH (Temp corrected) 7.430 Arterial Blood pCO2 (Temp correct) 33.3 L Arterial Blood pO2 (Temp corrected) 60.0 L Arterial Blood HCO3 21.6 L Arterial Blood Base Excess -2.0 Arterial Blood Oxygen Saturation 92.1 L Miguel Test ACCEPTAB Arterial Blood Gas Puncture Site Left Radial Arterial Blood Carboxyhemoglobin 0.3 Arterial Blood Methemoglobin 0.6 Blood Gas A-a O2 Differential 49.9 H Oxyhemoglobin Percent 91.3 L Total Hemoglobin 12.0 Blood Gas Temperature 37.0 Blood Gas Modality ROOM AIR FiO2 21.0 Blood Gas Notified Whom AC Blood Gas Notified Time 01/14/2017 2:37:07 PM Total Bilirubin 0.4 Direct Bilirubin 0.00 Indirect Bilirubin 0.4 Aspartate Amino Transf (AST/SGOT) 142 H Alanine Aminotransferase (ALT/SGPT) 98 H Alkaline Phosphatase 108 Troponin I < 0.012 C-Reactive Protein 5.5 H Total Protein 4.5 L Test 01/14/17 17:21 01/14/17 20:21 01/15/17 04:15 01/15/17 07:33 Lactic Acid Level 3.9 *H 1.0 Lactate Dehydrogenase 1419 H Calcium Level 5.0 #*L 4.5 *L White Blood Count 8.7 Red Blood Count 3.39 L Hemoglobin 9.8 L Hematocrit 29.4 L Mean Corpuscular Volume 86.7 Mean Corpuscular Hemoglobin 28.9 L Mean Corpuscular Hemoglobin Concent 33.3 Red Cell Distribution Width 16.6 H Platelet Count 153 Mean Platelet Volume 9.6 Neutrophils % 86.2 H Lymphocytes % 2.2 L Monocytes % 9.7 Eosinophils % 0.0 Basophils % 0.2 Nucleated Red Blood Cells % 0.0 Neutrophils # 7.5 Lymphocytes # 0.2 L Monocytes # 0.8 Eosinophils # 0.0 Basophils # 0.0 Nucleated Red Blood Cells # 0.0 Sodium Level 135 Potassium Level 3.5 Chloride Level 101 Carbon Dioxide Level 26 Anion Gap 12 Blood Urea Nitrogen 5 L Creatinine 0.65 Glucose Level 96 Phosphorus Level 0.8 L Magnesium Level 1.6 L C-Reactive Protein 22.5 H Ionized Calcium (Measured) 0.7 #L Medications Medications Current Medications Docusate Sodium (Colace) 100 mg Q12H PRN PO CONSTIPATION Last administered on 10:46; Admin Dose 100 MG; Start 01/09/17 at 19:30 Magnesium Hydroxide (Milk Of Mag) 30 ml DAILY PRN PO CONSTIPATION; Start at 19:30 Sodium Biphosphate/ Sodium Phosphate (Fleet Enema) 133 ml DAILY PRN NE CONSTIPATION; Start 01/09/17 at 19:30 Heparin Sodium (Porcine) 5000 unit 5,000 unit Q12 SC Last administered on 08:18; Admin Dose 5,000 UNIT; Start 01/09/17 at 21:00 Piperacillin Sod/ Tazobactam Sod (Zosyn 3.375gm/ 100 ml (Pmx)) 100 ml @ 200 mls /hr Q6 IVPB Last administered on 01/15/17 06:49; Admin Dose 200 MLS/HR; Start 01/10/17 at 00:00 Vancomycin HCl (Vanco Iv Per Pharmacy) VANCOMYCIN PER PHARMACY NOTE XX ; Start 01/09/17 at 19:30 Nitroglycerin (Nitroglycerin (Sl Tab) 0.4 Mg) 1 tab Q5M PRN SL ANGINA; Start at 19:30 Metoprolol Succinate (Toprol Xl) 25 mg QHS PO Last administered on 01/14/17 22: 39; Admin Dose 25 MG; Start 01/09/17 at 21:00 Trimethoprim/ Sulfamethoxazole (Bactrim (Ds)) 1 tab DAILY PO Last administered on 01/15/17 08:16; Admin Dose 1 TAB; Start 01/10/17 at 09:00 [facility]iscellaneous [facility] This patient aranda... PRN PRN XX WOUND CARE; Start 01/10/17 at 03:30 Hydromorphone HCl (Dilaudid LAB TECHNICIAN) 1.0 MG/HR CONTINUOUS RATE .... Q4PCA IV Last administered on 01/15/17 08:45; Admin Dose 6 MG; Start 01/10/17 at 15:30 Ondansetron HCl 4 mg 4 mg Q6 IV Last administered on 01/15/17 06:49; Admin Dose 4 MG; Start 01/10/17 at 15:30 Acetaminophen (Ofirmev 1000mg/ 100ml Iv) 100 ml @ 400 mls/hr Q6 IVPB Last administered on 01/15/17 06:31; Admin Dose 400 MLS/HR; Start 01/10/17 at 16:30 IV Flush 10 ml 10 ml PRN PRN IV IV PROTOCOL; Start 01/10/17 at 20:30 Sodium Chloride 1,000 ml @ 200 mls/hr Q5H IV Last administered on 01/15/17 08: 18; Admin Dose 200 MLS/HR; Start 01/11/17 at 09:00 Vancomycin HCl/ Sodium Chloride (Vancocin/NS) 250 ml @ 83.333 mls/ hr Q8H IVPB Last administered on 01/15/17 05:25; Admin Dose 83.333 MLS/HR; Start 01/11/17 at 13:00 Ergocalciferol (Drisdol) 50,000 unit Sa@16 PO Last administered on 01/14/17 16: 43; Admin Dose 50,000 UNIT; Start 01/14/17 at 16:00 Prednisone (Prednisone) 10 mg DAILY PO Last administered on 01/15/17 08:16; Admin Dose 10 MG; Start 01/15/17 at 09:00 Pantoprazole 40 mg 40 mg DAILY@06 IV ; Start 01/16/17 at 06:00 Potassium Phosphate 30 mm/ Sodium Chloride 260 ml @ 65 mls/hr ONCE ONCE IVPB ; Start 01/15/17 at 08:00; Stop 01/15/17 at 11:59 Magnesium Sulfate 50 ml @ 25 mls/hr ONCE ONCE IVPB Last administered on t 08:09; Admin Dose 25 MLS/HR; Start 01/15/17 at 07:30; Stop 01/15/17 at 09:29 Magnesium Sulfate 3 gm/Sodium Chloride 106 ml @ 35.333 mls/ hr ONCE ONCE IVPB ; Start 01/15/17 at 11:00; Stop 01/15/17 at 13:59 Calcium Gluconate/ Sodium Chloride (Ca Gluc/NS) 120 ml @ 60 mls/hr ONCE ONCE IVPB ; Start 01/15/17 at 10:00; Stop 01/15/17 at 11:59 YOLY NASCIMENTO MD Jan 15, 2017 09:18
[2017-01-15 09:54] LABS: AMYLASE 89 U/L (11-123)
[2017-01-15] MEDS ORDERED: CALCIUM GLUCONATE 10% 2 GM in SOD CHLORIDE 0.9% 100 ML IVPB ONE ×2 (10:00→21:00)
[2017-01-15] MEDS: ALBUTEROL/IPRATROPIUM (NEB) 3 ML AMP HHN PRN (10:43)
--- NOTE | 2017-01-15 10:54 | CONS ---
Date/Time of Note Date/Time of Note DATE: 01/15/17 TIME: 10:40 Assessment/Plan Assessment/Plan Chief Complaint/Hosp Course ID PROGRESS NOTE CURRENT ABX=> Vanco IV #4 + Zosyn #4 Bactrim po (RX per his HemeOn)-> dc 01/15 24H INTERVAL SUMMARY * TNS to ICU w/sepsis, shock, worsening lactic acidosis -> PNA + Pancreatitis * Progressive left flank and left abd and left leg wound stage III * 01/14/17 CT: IMPRESSION: 1. Small right pleural effusion with atelectasis and right lung base pneumonia. 2. Pancreatitis with no significant change in peripancreatic fluid and mildly increased fluid extending into the bilateral abdomen, right greater than left. 3. New mild free fluid over the liver and spleen, and increased mild to moderate fluid in the pelvis, right greater than left. 4. No evident regions of low attenuation in the postcontrast pancreas to suggest pancreatic necrosis. 5. No evident abscess or air over the pancreas to suggest infection. 6. Mild regions of inflammatory changes in the small bowel and colon, likely secondary to pancreatic fluid. EXAM GENERAL: 31 yo M obese, A/A/O VSS, no fevers HEENT:Unremarkable NECK: (Supple CHEST: Rise symmetrical without dyspnea on observation ABDOMEN: Soft, EXTREMITIES: Warm, moves extremities SKIN: Tattoos ID ASSESSMENT: 31 yo morbid obese M admit with: 1. Anaplastic B-cell Lymphoma=> Pt's last chemo was a month ago * Leukopenia --> now Leukocytosis-> Started on IV steroids * Presented w/Rx Bactrim 1tab daily (Neutropenic PCP prophy per HemeOn) * CT ABD/PEL/CHEST:(+) multiple areas of nodules likely lymphoma, 2 Sepsis w/worsening lactic acidosis 2/2 PNA * CT ABD/PEL/CHEST: PNA * Acute Pancreatitis 3. Acute pancreatitis -> No evidence of necrosis on CT 4. Presumed RAMU: likely pre-renal 2/2 vomiting 5. Hyponatremia and Hypokalemia: 2/2 vomiting 6. Enterococcal UTI -> Low colony count 7. Progressive left flank and left abd and left leg wound stage III INVASIVES: RUEXT PICC ABX ALLERGY: EGG/MILK CURRENT ABX=> Vanco IV #4 + Zosyn #4 Bactrim po (RX per his HemeOnc)-> dc 01/15 ID PLAN 1. Concur with DC Bactrim 1Tab daily => Presented w/Rx Bactrim 1tab daily ( Neutropenic PCP prophy per HemeOnc) 2. Progressive left sided wound ? decub ? flank/ABD/LLext -> send wound cx today 3. Continue current ABX . Problems: Consultation Date/Type/Reason Admit Date/Time Jan 09, 2017 at 19:08 Initial Consult Date 01/10/17 Type of Consultation: ID Referring Provider: YAO RAHMAN Exam/Review of Systems Vital Signs Vitals Vital Signs Date Time Temp Pulse Resp B/P Pulse Ox O2 Delivery O2 Flow Rate FiO2 01/15/17 09:00 102 20 114/46 95 2.0 01/15/17 08:00 99.2 01/15/17 02:32 27 01/15/17 00:00 Nasal Cannula Intake and Output 01/14/17 01/14/17 01/15/17 15:00 23:00 07:00 Intake Total 200 ml 2645 ml 2583 ml Output Total 2000 ml 1300 ml Balance 200 ml 645 ml 1283 ml Results Result Diagram: 01/15/17 0415 01/15/17 0415 Results 24 hrs Laboratory Tests Test 01/14/17 11:49 01/14/17 12:13 01/14/17 14:03 01/14/17 17:21 Vancomycin Level Trough 13.6 Blood Gas Specimen Source Blood arterial Arterial Blood Date Drawn 01/14/2017 2:25:01 PM Arterial Blood pH (Temp corrected) 7.430 Arterial Blood pCO2 (Temp correct) 33.3 L Arterial Blood pO2 (Temp corrected) 60.0 L Arterial Blood HCO3 21.6 L Arterial Blood Base Excess -2.0 Arterial Blood Oxygen Saturation 92.1 L Miguel Test ACCEPTAB Arterial Blood Gas Puncture Site Left Radial Arterial Blood Carboxyhemoglobin 0.3 Arterial Blood Methemoglobin 0.6 Blood Gas A-a O2 Differential 49.9 H Oxyhemoglobin Percent 91.3 L Total Hemoglobin 12.0 Blood Gas Temperature 37.0 Blood Gas Modality ROOM AIR FiO2 21.0 Blood Gas Notified Whom AC Blood Gas Notified Time 01/14/2017 2:37:07 PM Calcium Level 11.9 #H Ionized Calcium (Measured) 1.8 #H Total Bilirubin 0.4 Direct Bilirubin 0.00 Indirect Bilirubin 0.4 Aspartate Amino Transf (AST/SGOT) 142 H Alanine Aminotransferase (ALT/SGPT) 98 H Alkaline Phosphatase 108 Troponin I < 0.012 C-Reactive Protein 5.5 H Total Protein 4.5 L Albumin 2.1 L Lactic Acid Level 3.9 *H Lactate Dehydrogenase 1419 H Test 01/14/17 20:21 01/15/17 04:15 01/15/17 07:33 Calcium Level 5.0 #*L 4.5 *L 4.2 *L White Blood Count 8.7 Red Blood Count 3.39 L Hemoglobin 9.8 L Hematocrit 29.4 L Mean Corpuscular Volume 86.7 Mean Corpuscular Hemoglobin 28.9 L Mean Corpuscular Hemoglobin Concent 33.3 Red Cell Distribution Width 16.6 H Platelet Count 153 Mean Platelet Volume 9.6 Neutrophils % 86.2 H Lymphocytes % 2.2 L Monocytes % 9.7 Eosinophils % 0.0 Basophils % 0.2 Nucleated Red Blood Cells % 0.0 Neutrophils # 7.5 Lymphocytes # 0.2 L Monocytes # 0.8 Eosinophils # 0.0 Basophils # 0.0 Nucleated Red Blood Cells # 0.0 Sodium Level 135 Potassium Level 3.5 Chloride Level 101 Carbon Dioxide Level 26 Anion Gap 12 Blood Urea Nitrogen 5 L Creatinine 0.65 Glucose Level 96 Phosphorus Level 0.8 L Magnesium Level 1.6 L C-Reactive Protein 22.5 H Lactic Acid Level 1.0 Ionized Calcium (Measured) 0.7 #L Amylase Level 191 H Lipase 946 H Medications Medications Current Medications Docusate Sodium (Colace) 100 mg Q12H PRN PO CONSTIPATION Last administered on t 10:46; Admin Dose 100 MG; Start 01/09/17 at 19:30 Magnesium Hydroxide (Milk Of Mag) 30 ml DAILY PRN PO CONSTIPATION; Start at 19:30 Sodium Biphosphate/ Sodium Phosphate (Fleet Enema) 133 ml DAILY PRN ID CONSTIPATION; Start 01/09/17 at 19:30 Heparin Sodium (Porcine) 5000 unit 5,000 unit Q12 SC Last administered on 08:18; Admin Dose 5,000 UNIT; Start 01/09/17 at 21:00 Piperacillin Sod/ Tazobactam Sod (Zosyn 3.375gm/ 100 ml (Pmx)) 100 ml @ 200 mls /hr Q6 IVPB Last administered on 01/15/17 06:49; Admin Dose 200 MLS/HR; Start 01/10/17 at 00:00 Vancomycin HCl (Vanco Iv Per Pharmacy) VANCOMYCIN PER PHARMACY NOTE XX ; Start 01/09/17 at 19:30 Nitroglycerin (Nitroglycerin (Sl Tab) 0.4 Mg) 1 tab Q5M PRN SL ANGINA; Start at 19:30 Metoprolol Succinate (Toprol Xl) 25 mg QHS PO Last administered on 01/14/17 22: 39; Admin Dose 25 MG; Start 01/09/17 at 21:00 Miscellaneous Information (Pending [facility] Order For Wound Care) This patient aranda... PRN PRN XX WOUND CARE; Start 01/10/17 at 03:30 Hydromorphone HCl (Dilaudid DIDACTIC INSTRUCTOR) 1.0 MG/HR CONTINUOUS RATE .... Q4PCA IV Last administered on 01/15/17 08:45; Admin Dose 6 MG; Start 01/10/17 at 15:30 Ondansetron HCl 4 mg 4 mg Q6 IV Last administered on 01/15/17 06:49; Admin Dose 4 MG; Start 01/10/17 at 15:30 Acetaminophen (Ofirmev 1000mg/ 100ml Iv) 100 ml @ 400 mls/hr Q6 IVPB Last administered on 01/15/17 06:31; Admin Dose 400 MLS/HR; Start 01/10/17 at 16:30 IV Flush 10 ml 10 ml PRN PRN IV IV PROTOCOL; Start 01/10/17 at 20:30 Sodium Chloride 1,000 ml @ 200 mls/hr Q5H IV Last administered on 01/15/17 08: 18; Admin Dose 200 MLS/HR; Start 01/11/17 at 09:00 Vancomycin HCl/ Sodium Chloride (Vancocin/NS) 250 ml @ 83.333 mls/ hr Q8H IVPB Last administered on 01/15/17 05:25; Admin Dose 83.333 MLS/HR; Start 01/11/17 at 13:00 Ergocalciferol (Drisdol) 50,000 unit Sa@16 PO Last administered on 01/14/17 16: 43; Admin Dose 50,000 UNIT; Start 01/14/17 at 16:00 Prednisone (Prednisone) 10 mg DAILY PO Last administered on 01/15/17 08:16; Admin Dose 10 MG; Start 01/15/17 at 09:00 Pantoprazole 40 mg 40 mg DAILY@06 IV ; Start 01/16/17 at 06:00 Potassium Phosphate 30 mm/ Sodium Chloride 260 ml @ 65 mls/hr ONCE ONCE IVPB Last administered on 01/15/17 09:56; Admin Dose 65 MLS/HR; Start 01/15/17 at 08: 00; Stop 01/15/17 at 11:59 Calcium Gluconate/ Sodium Chloride (Ca Gluc/NS) 120 ml @ 60 mls/hr ONCE ONCE IVPB ; Start 01/15/17 at 10:00; Stop 01/15/17 at 11:59 AARON BELLAMY NP Jan 15, 2017 10:51
[2017-01-15] MEDS ORDERED: MAGNESIUM SULFATE 3 GM in SOD CHLORIDE 0.9% 100 ML IVPB ONE (11:00)
--- NOTE | 2017-01-15 12:15 | PN ---
Date/Time of Note Date/Time of Note DATE: 01/15/17 TIME: 12:07 Assessment/Plan VTE Prophylaxis VTE Prophylaxis Intervention: heparin Lines/Catheters IV Catheter Type (from Nrs): PICC Line Central line still needed: Yes Urinary Cath still in place: No Assessment/Plan Chief Complaint/Hosp Course Patient is a 31-year-old male with a past medical history of large B- cell lymphoma presented to the ED complaining of abdominal pain, nausea, vomiting, fever 2 weeks duration. Found to have acute pancreatitis Patient's last chemotherapy was approximately 1 month ago. Assessment and plan Sepsis, secondary pneumonia, pancreatitis, acute hypocalcemia, severe electrolyte derangement Abdominal pain Nausea Vomiting Hyponatremia UTI Hypokalemia Acute kidney injury B-cell lymphoma Lactic acidosis Plan -upgraded to ICU. severe hypocalcemia. endocrinology consulted, q6 calcium lvls with replacement as needed. -acute pancreatitis, lipase WNL on 01/11, found elevated on 01/14. ordered repeat lipase today on 01/12 and 01/13. found elevated in [id number]. repeat lipase this AM down to 900. continue fluids and abx. CT with contrast showed fluid collection found in abdomen, Dr. Carlos general surgery and GI consulted. etiology unclear , however bactrim was stopped. ?need for MRCP, will defer to GI recs. -lipase elevated, GI consulted for pancreatitis. get CRP and will trend. fluids at 200/hr, continue abx. -PNA/UTI, on abx. -Palliative care on board, controlling pain -Patient does have an oncologist, however oncology does not have privileges here , oncology consulted and recs appreciated. -Ultrasound biopsy done, pending path -CT of the abdomen pelvis and chest show multiple areas of nodules likely lymphoma, also possible pneumonia, patient on antibiotics, repeat CT abdomen and pelvis with contrast on 01/14/17 showed pancreatitis with fluid collection, no signs of necrosis apparent. DISPO: keep inpatient for pancreatitis and hypocalcemia. Problems: Subjective 24 Hr Interval Summary Free Text/Dictation in the ICU, still with nausea Exam/Review of Systems Vital Signs Vitals Vital Signs Date Time Temp Pulse Resp B/P Pulse Ox O2 Delivery O2 Flow Rate FiO2 01/15/17 11:00 115 22 121/84 98 2.0 01/15/17 10:43 Nasal Cannula 01/15/17 08:00 99.2 01/15/17 02:32 27 Intake and Output 01/14/17 01/14/17 01/15/17 15:00 23:00 07:00 Intake Total 200 ml 2645 ml 2583 ml Output Total 2000 ml 1300 ml Balance 200 ml 645 ml 1283 ml Exam Physical exam General: Patient is laying in bed and answers questions appropriately Mentation: Patient is alert and oriented 4, Head: Normocephalic atraumatic Eyes: EOMI, pupils reactive to light Neck: Supple, nontender, midline Respiratory: coarse to auscultation bilaterally Cardiovascular: regular rate, no obvious murmurs Gastrointestinal: mildly tender to palpation, bowel sounds heard. Neurological: Moves all extremities spontaneously Skin: multiple lesions surrounding body, Results Result Diagram: 01/15/17 0415 01/15/17 0415 Results 24 hrs Laboratory Tests Test 01/14/17 12:13 01/14/17 14:03 01/14/17 17:21 01/14/17 20:21 Blood Gas Specimen Source Blood arterial Arterial Blood Date Drawn 01/14/2017 2:25:01 PM Arterial Blood pH (Temp corrected) 7.430 Arterial Blood pCO2 (Temp correct) 33.3 L Arterial Blood pO2 (Temp corrected) 60.0 L Arterial Blood HCO3 21.6 L Arterial Blood Base Excess -2.0 Arterial Blood Oxygen Saturation 92.1 L Miguel Test ACCEPTAB Arterial Blood Gas Puncture Site Left Radial Arterial Blood Carboxyhemoglobin 0.3 Arterial Blood Methemoglobin 0.6 Blood Gas A-a O2 Differential 49.9 H Oxyhemoglobin Percent 91.3 L Total Hemoglobin 12.0 Blood Gas Temperature 37.0 Blood Gas Modality ROOM AIR FiO2 21.0 Blood Gas Notified Whom AC Blood Gas Notified Time 01/14/2017 2:37:07 PM Calcium Level 11.9 #H 5.0 #*L Ionized Calcium (Measured) 1.8 #H Total Bilirubin 0.4 Direct Bilirubin 0.00 Indirect Bilirubin 0.4 Aspartate Amino Transf (AST/SGOT) 142 H Alanine Aminotransferase (ALT/SGPT) 98 H Alkaline Phosphatase 108 Troponin I < 0.012 C-Reactive Protein 5.5 H Total Protein 4.5 L Albumin 2.1 L Lactic Acid Level 3.9 *H Lactate Dehydrogenase 1419 H Test 01/15/17 04:15 01/15/17 07:33 White Blood Count 8.7 Red Blood Count 3.39 L Hemoglobin 9.8 L Hematocrit 29.4 L Mean Corpuscular Volume 86.7 Mean Corpuscular Hemoglobin 28.9 L Mean Corpuscular Hemoglobin Concent 33.3 Red Cell Distribution Width 16.6 H Platelet Count 153 Mean Platelet Volume 9.6 Neutrophils % 86.2 H Lymphocytes % 2.2 L Monocytes % 9.7 Eosinophils % 0.0 Basophils % 0.2 Nucleated Red Blood Cells % 0.0 Neutrophils # 7.5 Lymphocytes # 0.2 L Monocytes # 0.8 Eosinophils # 0.0 Basophils # 0.0 Nucleated Red Blood Cells # 0.0 Sodium Level 135 Potassium Level 3.5 Chloride Level 101 Carbon Dioxide Level 26 Anion Gap 12 Blood Urea Nitrogen 5 L Creatinine 0.65 Glucose Level 96 Calcium Level 4.5 *L 4.2 *L Phosphorus Level 0.8 L Magnesium Level 1.6 L C-Reactive Protein 22.5 H Lactic Acid Level 1.0 Ionized Calcium (Measured) 0.7 #L Amylase Level 191 H Lipase 946 H Medications Medications Current Medications Docusate Sodium (Colace) 100 mg Q12H PRN PO CONSTIPATION Last administered on 10:46; Admin Dose 100 MG; Start 01/09/17 at 19:30 Magnesium Hydroxide (Milk Of Mag) 30 ml DAILY PRN PO CONSTIPATION; Start at 19:30 Sodium Biphosphate/ Sodium Phosphate (Fleet Enema) 133 ml DAILY PRN [place] CONSTIPATION; Start 01/09/17 at 19:30 Heparin Sodium (Porcine) 5000 unit 5,000 unit Q12 SC Last administered on 08:18; Admin Dose 5,000 UNIT; Start 01/09/17 at 21:00 Piperacillin Sod/ Tazobactam Sod (Zosyn 3.375gm/ 100 ml (Pmx)) 100 ml @ 200 mls /hr Q6 IVPB Last administered on 01/15/17 06:49; Admin Dose 200 MLS/HR; Start 01/10/17 at 00:00 Vancomycin HCl (Vanco Iv Per Pharmacy) VANCOMYCIN PER PHARMACY NOTE XX ; Start 01/09/17 at 19:30 Nitroglycerin (Nitroglycerin (Sl Tab) 0.4 Mg) 1 tab Q5M PRN SL ANGINA; Start at 19:30 Metoprolol Succinate (Toprol Xl) 25 mg QHS PO Last administered on 01/14/17 22: 39; Admin Dose 25 MG; Start 01/09/17 at 21:00 Miscellaneous Information (Pending Santyl Order For Wound Care) This patient aranda... PRN PRN XX WOUND CARE; Start 01/10/17 at 03:30 Hydromorphone HCl (Dilaudid SOIL [employer] PLANT SCIENTIST) 1.0 MG/HR CONTINUOUS RATE .... Q4PCA IV Last administered on 01/15/17 08:45; Admin Dose 6 MG; Start 01/10/17 at 15:30 Ondansetron HCl 4 mg 4 mg Q6 IV Last administered on 01/15/17 06:49; Admin Dose 4 MG; Start 01/10/17 at 15:30 Acetaminophen (Ofirmev 1000mg/ 100ml Iv) 100 ml @ 400 mls/hr Q6 IVPB Last administered on 01/15/17 06:31; Admin Dose 400 MLS/HR; Start 01/10/17 at 16:30 IV Flush 10 ml 10 ml PRN PRN IV IV PROTOCOL; Start 01/10/17 at 20:30 Sodium Chloride 1,000 ml @ 200 mls/hr Q5H IV Last administered on 01/15/17 08: 18; Admin Dose 200 MLS/HR; Start 01/11/17 at 09:00 Vancomycin HCl/ Sodium Chloride (Vancocin/NS) 250 ml @ 83.333 mls/ hr Q8H IVPB Last administered on 01/15/17 05:25; Admin Dose 83.333 MLS/HR; Start 01/11/17 at 13:00 Ergocalciferol (Drisdol) 50,000 unit Sa@16 PO Last administered on 01/14/17 16: 43; Admin Dose 50,000 UNIT; Start 01/14/17 at 16:00 Prednisone (Prednisone) 10 mg DAILY PO Last administered on 01/15/17 08:16; Admin Dose 10 MG; Start 01/15/17 at 09:00 Pantoprazole (Protonix Iv) 40 mg DAILY@06 IV ; Start 01/16/17 at 06:00 YAO RAHMAN Jan 15, 2017 12:15
--- NOTE | 2017-01-15 12:27 | CONS ---
Date/Time of Note Date/Time of Note DATE: 01/15/17 TIME: 12:26 Assessment/Plan Assessment/Plan Chief Complaint/Hosp Course 1. Hyponatremia, resolved. Etiology is multifactorial secondary to volume depletion. Continue current treatment plan. 2. Hypokalemia. Replete potassium chloride. 3. Mineral bone disorder. Will replete with potassium phosphate as the patient is hypophosphatemic. 4. Nonoliguric acute kidney injury. Etiology secondary to hemodynamics. Renal function has improved. Continue to monitor. 5. Abdominal pain, improving. Continue current treatment plan. 6. Nausea and vomiting. Continue current medical management. 7. Sepsis secondary to pneumonia. Continue current antibiotic regimen. 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 Continue current treatment plan. Problems: Consultation Date/Type/Reason Admit Date/Time Jan 09, 2017 at 19:08 Initial Consult Date 01/10/17 Type of Consultation: ID Referring Provider: YAO RAHMAN 24 HR Interval Summary Free Text/Dictation pt. transferred to icu has severe hypocalcemia good uop Exam/Review of Systems Vital Signs Vitals Vital Signs Date Time Temp Pulse Resp B/P Pulse Ox O2 Delivery O2 Flow Rate FiO2 01/15/17 11:00 115 22 121/84 98 2.0 01/15/17 10:43 Nasal Cannula 01/15/17 08:00 99.2 01/15/17 02:32 27 Intake and Output 01/14/17 01/14/17 01/15/17 15:00 23:00 07:00 Intake Total 200 ml 2645 ml 2583 ml Output Total 2000 ml 1300 ml Balance 200 ml 645 ml 1283 ml Exam Head: No atraumatic, No hematomas, No lacerations, No normocephalic, No other Eyes: No EOMI, No PERRL, No fundi, disc, No icteric, No nl conjunctiva, No nl lids, No nl sclera, No other ENMT: No intubated, No mucosa pink and moist, No nl external ears & nose, No nl lips & teeth, No nl nasal mucosa & septum, No other, No tympanic membranes Neck: No bruits, No jvd, No masses, No non-tender, No nuchal rigidity, No other , No supple, No thyromegaly Respiratory: No clear to auscultation, No congested cough, No crackles/rales, No diminished breath sounds, No intercostal retraction, No labored breathing, No normal air movement, No other, No respirations, No tactile fremitus, No wheezing Cardiovascular: No S3, No S4, No bruits, No diastolic murmur, No edema, No gallop, No irregular rhythm, No jugular venous distention (JVD), No murmurs/ extra sounds, No nl pulses, No other, No regular rate and rhythm, No rub, No systolic murmur Gastrointestinal: No ascites, No bowel sounds, No distended, No firm, No hepatomegaly, No mass, No nl liver, spleen, No non-tender, No other, No rebound or guarding, No soft, No splenomegaly, No surgical scars, No tender Extremities: No calf tenderness, No clubbing, No cyanosis, No edema, No normal pulses, No other, No palpable cord, No pitting pedal edema, No tenderness Results Result Diagram: 01/15/17 0415 01/15/17 0415 Results 24 hrs Laboratory Tests Test 01/14/17 14:03 01/14/17 17:21 01/14/17 20:21 01/15/17 04:15 Calcium Level 11.9 #H 5.0 #*L 4.5 *L Ionized Calcium (Measured) 1.8 #H Total Bilirubin 0.4 Direct Bilirubin 0.00 Indirect Bilirubin 0.4 Aspartate Amino Transf (AST/SGOT) 142 H Alanine Aminotransferase (ALT/SGPT) 98 H Alkaline Phosphatase 108 Troponin I < 0.012 C-Reactive Protein 5.5 H 22.5 H Total Protein 4.5 L Albumin 2.1 L Lactic Acid Level 3.9 *H Lactate Dehydrogenase 1419 H White Blood Count 8.7 Red Blood Count 3.39 L Hemoglobin 9.8 L Hematocrit 29.4 L Mean Corpuscular Volume 86.7 Mean Corpuscular Hemoglobin 28.9 L Mean Corpuscular Hemoglobin Concent 33.3 Red Cell Distribution Width 16.6 H Platelet Count 153 Mean Platelet Volume 9.6 Neutrophils % 86.2 H Lymphocytes % 2.2 L Monocytes % 9.7 Eosinophils % 0.0 Basophils % 0.2 Nucleated Red Blood Cells % 0.0 Neutrophils # 7.5 Lymphocytes # 0.2 L Monocytes # 0.8 Eosinophils # 0.0 Basophils # 0.0 Nucleated Red Blood Cells # 0.0 Sodium Level 135 Potassium Level 3.5 Chloride Level 101 Carbon Dioxide Level 26 Anion Gap 12 Blood Urea Nitrogen 5 L Creatinine 0.65 Glucose Level 96 Phosphorus Level 0.8 L Magnesium Level 1.6 L Test 01/15/17 07:33 01/15/17 10:43 Lactic Acid Level 1.0 Calcium Level 4.2 *L Ionized Calcium (Measured) 0.7 #L Amylase Level 191 H Lipase 946 H Hepatitis B Surface Antigen NEGATIVE Hepatitis C Antibody Pending Medications Medications Current Medications Docusate Sodium (Colace) 100 mg Q12H PRN PO CONSTIPATION Last administered on 10:46; Admin Dose 100 MG; Start 01/09/17 at 19:30 Magnesium Hydroxide (Milk Of Mag) 30 ml DAILY PRN PO CONSTIPATION; Start at 19:30 Sodium Biphosphate/ Sodium Phosphate (Fleet Enema) 133 ml DAILY PRN [place] CONSTIPATION; Start 01/09/17 at 19:30 Heparin Sodium (Porcine) 5000 unit 5,000 unit Q12 SC Last administered on 08:18; Admin Dose 5,000 UNIT; Start 01/09/17 at 21:00 Piperacillin Sod/ Tazobactam Sod (Zosyn 3.375gm/ 100 ml (Pmx)) 100 ml @ 200 mls /hr Q6 IVPB Last administered on 01/15/17 06:49; Admin Dose 200 MLS/HR; Start 01/10/17 at 00:00 Vancomycin HCl (Vanco Iv Per Pharmacy) VANCOMYCIN PER PHARMACY NOTE XX ; Start 01/09/17 at 19:30 Nitroglycerin (Nitroglycerin (Sl Tab) 0.4 Mg) 1 tab Q5M PRN SL ANGINA; Start at 19:30 Metoprolol Succinate (Toprol Xl) 25 mg QHS PO Last administered on 01/14/17 22: 39; Admin Dose 25 MG; Start 01/09/17 at 21:00 [facility] This patient aranda... PRN PRN XX WOUND CARE; Start 01/10/17 at 03:30 Hydromorphone HCl (Dilaudid BARBER INSTRUCTOR) 1.0 MG/HR CONTINUOUS RATE .... Q4PCA IV Last administered on 01/15/17 08:45; Admin Dose 6 MG; Start 01/10/17 at 15:30 Ondansetron HCl 4 mg 4 mg Q6 IV Last administered on 01/15/17 06:49; Admin Dose 4 MG; Start 01/10/17 at 15:30 Acetaminophen (Ofirmev 1000mg/ 100ml Iv) 100 ml @ 400 mls/hr Q6 IVPB Last administered on 01/15/17 06:31; Admin Dose 400 MLS/HR; Start 01/10/17 at 16:30 IV Flush 10 ml 10 ml PRN PRN IV IV PROTOCOL; Start 01/10/17 at 20:30 Sodium Chloride 1,000 ml @ 200 mls/hr Q5H IV Last administered on 01/15/17 08: 18; Admin Dose 200 MLS/HR; Start 01/11/17 at 09:00 Vancomycin HCl/ Sodium Chloride (Vancocin/NS) 250 ml @ 83.333 mls/ hr Q8H IVPB Last administered on 01/15/17 05:25; Admin Dose 83.333 MLS/HR; Start 01/11/17 at 13:00 Ergocalciferol (Drisdol) 50,000 unit Sa@16 PO Last administered on 01/14/17 16: 43; Admin Dose 50,000 UNIT; Start 01/14/17 at 16:00 Prednisone (Prednisone) 10 mg DAILY PO Last administered on 01/15/17 08:16; Admin Dose 10 MG; Start 01/15/17 at 09:00 Pantoprazole (Protonix Iv) 40 mg DAILY@06 IV ; Start 01/16/17 at 06:00 GABRIELLE FERNANDO MD Jan 15, 2017 12:27
--- NOTE | 2017-01-15 13:57 | CONS ---
Date/Time of Note Date/Time of Note DATE: 01/15/17 TIME: 13:49 Assessment/Plan Assessment/Plan Additional Assessment/Plan IMP: 1. Severe pancreatitis--likely due to anaplastic B-cell lymphoma 2. Severe HypoCa++--2/2 #1 3. UTI 4. Anaplastic B-cell lymphoma 5. RAMU 6. Pulmonary nodular opacities--c/w metastatic lymphoma RECS: 1. Aggressive IVF's 2. Follow bladder pressures to ensure no abdominal compartment syndrome 3. Replete Ca++ 4. Pain control via BUSINESS INTERN 5. Follow lytes 6. Surgery evaluation 7. Am labs/CXR Consultation Date/Type/Reason Admit Date/Time Jan 09, 2017 at 19:08 Date of Consultation: Jan 15, 2017 Type of Consultation: Pulm/CCM Hx of Present Illness Briefly, this is a 31-year-old male with a diagnosis of anaplastic large B-cell lymphoma, s/p chemotherapy admitted ~ 1 week ago for fevers, increased subcutaneous nodules and acute pancreatitis--all likely attributable to the aggressive lymphoma. He was transferred the ICU for more optimal management of SIRS associated with his pancreatitis. Constitutional: chills, febrile, other (Reiger's. Please note this may be be symptoms of his lymphoma) ENT: no complaints Respiratory: cough, shortness of breath Cardiovascular: no complaints Gastrointestinal: nausea, pain, vomiting Genitourinary: no complaints Musculoskeletal: no complaints Psychological: nl mood/affect, no complaints Past Medical History as per HPI Past Surgical History Past Surgical Hx: noncontributory Family History Significant Family History: no pertinent family hx Social History Alcohol Use: none Smoking Status: Never smoker Drug Use: none Exam/Review of Systems Vital Signs Vitals Vital Signs Date Time Temp Pulse Resp B/P Pulse Ox O2 Delivery O2 Flow Rate FiO2 01/15/17 12:00 110 01/15/17 11:00 22 121/84 98 2.0 01/15/17 10:43 Nasal Cannula 01/15/17 08:00 99.2 01/15/17 02:32 27 Intake and Output 01/14/17 01/14/17 01/15/17 15:00 23:00 07:00 Intake Total 200 ml 2645 ml 2583 ml Output Total 2000 ml 1300 ml Balance 200 ml 645 ml 1283 ml Exam Constitutional: alert, oriented Psych: no complaints Head: atraumatic, normocephalic Eyes: EOMI, nl conjunctiva, nl sclera ENMT: mucosa pink and moist, nl external ears & nose Neck: non-tender, supple Respiratory: diminished breath sounds Cardiovascular: nl pulses Gastrointestinal: distended, firm, tender Musculoskeletal: swelling Extremities: other (subQ nodules ) Neurological: TEXTILE 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 II-XII intact, nl mental status Results Result Diagram: 01/15/17 0415 01/15/17 0415 Results 24 hrs Laboratory Tests Test 01/14/17 14:03 01/14/17 17:21 01/14/17 20:21 01/15/17 04:15 Calcium Level 11.9 #H 5.0 #*L 4.5 *L Ionized Calcium (Measured) 1.8 #H Total Bilirubin 0.4 Direct Bilirubin 0.00 Indirect Bilirubin 0.4 Aspartate Amino Transf (AST/SGOT) 142 H Alanine Aminotransferase (ALT/SGPT) 98 H Alkaline Phosphatase 108 Troponin I < 0.012 C-Reactive Protein 5.5 H 22.5 H Total Protein 4.5 L Albumin 2.1 L Lactic Acid Level 3.9 *H Lactate Dehydrogenase 1419 H White Blood Count 8.7 Red Blood Count 3.39 L Hemoglobin 9.8 L Hematocrit 29.4 L Mean Corpuscular Volume 86.7 Mean Corpuscular Hemoglobin 28.9 L Mean Corpuscular Hemoglobin Concent 33.3 Red Cell Distribution Width 16.6 H Platelet Count 153 Mean Platelet Volume 9.6 Neutrophils % 86.2 H Lymphocytes % 2.2 L Monocytes % 9.7 Eosinophils % 0.0 Basophils % 0.2 Nucleated Red Blood Cells % 0.0 Neutrophils # 7.5 Lymphocytes # 0.2 L Monocytes # 0.8 Eosinophils # 0.0 Basophils # 0.0 Nucleated Red Blood Cells # 0.0 Sodium Level 135 Potassium Level 3.5 Chloride Level 101 Carbon Dioxide Level 26 Anion Gap 12 Blood Urea Nitrogen 5 L Creatinine 0.65 Glucose Level 96 Phosphorus Level 0.8 L Magnesium Level 1.6 L Test 01/15/17 07:33 01/15/17 10:43 Lactic Acid Level 1.0 Calcium Level 4.2 *L Ionized Calcium (Measured) 0.7 #L Amylase Level 191 H Lipase 946 H Hepatitis B Surface Antigen NEGATIVE Hepatitis C Antibody NEGATIVE Medications Medications Current Medications Docusate Sodium (Colace) 100 mg Q12H PRN PO CONSTIPATION Last administered on 10:46; Admin Dose 100 MG; Start 01/09/17 at 19:30 Magnesium Hydroxide (Milk Of Mag) 30 ml DAILY PRN PO CONSTIPATION; Start at 19:30 Sodium Biphosphate/ Sodium Phosphate (Fleet Enema) 133 ml DAILY PRN [place] CONSTIPATION; Start 01/09/17 at 19:30 Heparin Sodium (Porcine) 5000 unit 5,000 unit Q12 SC Last administered on 08:18; Admin Dose 5,000 UNIT; Start 01/09/17 at 21:00 Piperacillin Sod/ Tazobactam Sod (Zosyn 3.375gm/ 100 ml (Pmx)) 100 ml @ 200 mls /hr Q6 IVPB Last administered on 01/15/17 12:33; Admin Dose 200 MLS/HR; Start 01/10/17 at 00:00 Vancomycin HCl (Vanco Iv Per Pharmacy) VANCOMYCIN PER PHARMACY NOTE XX ; Start 01/09/17 at 19:30 Nitroglycerin (Nitroglycerin (Sl Tab) 0.4 Mg) 1 tab Q5M PRN SL ANGINA; Start at 19:30 Metoprolol Succinate (Toprol Xl) 25 mg QHS PO Last administered on 01/14/17 22: 39; Admin Dose 25 MG; Start 01/09/17 at 21:00 Miscellaneous Information (Pending [facility] Order For Wound Care) This patient aranda... PRN PRN XX WOUND CARE; Start 01/10/17 at 03:30 Hydromorphone HCl (Dilaudid BUSINESS INTERN) 1.0 MG/HR CONTINUOUS RATE .... Q4PCA IV Last administered on 01/15/17 12:47; Admin Dose 6 MG; Start 01/10/17 at 15:30 Ondansetron HCl 4 mg 4 mg Q6 IV Last administered on 01/15/17 12:33; Admin Dose 4 MG; Start 01/10/17 at 15:30 Acetaminophen (Ofirmev 1000mg/ 100ml Iv) 100 ml @ 400 mls/hr Q6 IVPB Last administered on 01/15/17 12:33; Admin Dose 400 MLS/HR; Start 01/10/17 at 16:30 IV Flush 10 ml 10 ml PRN PRN IV IV PROTOCOL; Start 01/10/17 at 20:30 Sodium Chloride 1,000 ml @ 200 mls/hr Q5H IV Last administered on 01/15/17 08: 18; Admin Dose 200 MLS/HR; Start 01/11/17 at 09:00 Vancomycin HCl/ Sodium Chloride (Vancocin/NS) 250 ml @ 83.333 mls/ hr Q8H IVPB Last administered on 01/15/17 12:33; Admin Dose 83.333 MLS/HR; Start 01/11/17 at 13:00 Ergocalciferol (Drisdol) 50,000 unit Sa@16 PO Last administered on 01/14/17 16: 43; Admin Dose 50,000 UNIT; Start 01/14/17 at 16:00 Prednisone (Prednisone) 10 mg DAILY PO Last administered on 01/15/17 08:16; Admin Dose 10 MG; Start 01/15/17 at 09:00 Pantoprazole (Protonix Iv) 40 mg DAILY@06 IV ; Start 01/16/17 at 06:00 TAHIR GIVENS MD Jan 15, 2017 13:57
--- NOTE | 2017-01-15 15:09 | CONS ---
Date/Time of Note Date/Time of Note DATE: 01/15/17 TIME: 14:59 Assessment/Plan Assessment/Plan Additional Assessment/Plan Assessment: * Acute pancreatitis, etiology unclear/resolving * Mild abnormality liver function tests with no evidence of biliary pathology * Anaplastic B-cell lymphoma/aggressive behavior * Sepsis/pneumonia/improved Plan: * Continue monitor lipase and abdominal pain * Once abdominal pain subsides made reintroduce diet Consultation Date/Type/Reason Admit Date/Time Jan 09, 2017 at 19:08 Date of Consultation: Jan 15, 2017 Type of Consultation: GI Reason for Consultation Pancreatitis Hx of Present Illness Unfortunate 31-year-old man with anaplastic B-cell lymphoma which has received chemotherapy and apparently recently recurring a fairly aggressive manner. The patient was hospitalized with evidence of sepsis/pneumonia, he also had significant abdominal pain. He is lipase initially was normal but went up significantly 4000 range on 01/13/2017 and subsequently has drop today to the 900 level. Liver function tests have been mildly abnormal. There is no evidence of biliary dilatation or gallbladder abnormalities on CT. The patient reports diffuse abdominal pain has significantly improved over the last 24 hours. The etiology of pancreatitis remains unclear. It is possible that lymphoma may be responsible but the quick resolution suggests a more transient situation. The patient had been on Bactrim which has been since discontinued and although not a common offender could be playing a role as well. At the present time the patient appears to be comfortable and I would recommend to continue monitoring amylase and lipase and once pain is completely resolved may reinstate diet. Constitutional: other (Abdominal pain) ENT: no complaints Respiratory: cough, shortness of breath Cardiovascular: no complaints Gastrointestinal: nausea, pain, vomiting Genitourinary: no complaints Musculoskeletal: no complaints Skin: skin lesions (Multiple skin lesions and nodularities related to lymphoma) Psychological: no complaints Past Medical History Anaplastic B-cell lymphoma Past Surgical History Past Surgical Hx: noncontributory Family History Significant Family History: no pertinent family hx Social History Alcohol Use: none Smoking Status: Never smoker Drug Use: none Exam/Review of Systems Vital Signs Vitals Vital Signs Date Time Temp Pulse Resp B/P Pulse Ox O2 Delivery O2 Flow Rate FiO2 01/15/17 12:00 110 01/15/17 11:00 22 121/84 98 2.0 01/15/17 10:43 Nasal Cannula 01/15/17 08:00 99.2 01/15/17 02:32 27 Intake and Output 01/14/17 01/14/17 01/15/17 15:00 23:00 07:00 Intake Total 200 ml 2645 ml 2583 ml Output Total 2000 ml 1300 ml Balance 200 ml 645 ml 1283 ml Exam Constitutional: alert, obese (Morbidly), oriented, well developed Psych: nl mood/affect, no complaints Head: atraumatic, normocephalic Eyes: EOMI, PERRL, nl conjunctiva, nl lids, nl sclera ENMT: nl external ears & nose, nl lips & teeth, nl nasal mucosa & septum Neck: non-tender, supple Respiratory: clear to auscultation, normal air movement Cardiovascular: nl pulses, regular rate and rhythm Gastrointestinal: bowel sounds, distended, soft, tender (Moderately epigastric area), No ascites, No mass, No rebound or guarding Musculoskeletal: nl extremities to inspection, nl gait and stance Extremities: normal pulses Skin: other (Multiple areas of nodularity and necrotic tissue), No rash or lesions Results Result Diagram: 01/15/17 0415 01/15/17 0415 Results 24 hrs Laboratory Tests Test 01/14/17 17:21 01/14/17 20:21 01/15/17 04:15 01/15/17 07:33 Lactic Acid Level 3.9 *H 1.0 Lactate Dehydrogenase 1419 H Calcium Level 5.0 #*L 4.5 *L 4.2 *L White Blood Count 8.7 Red Blood Count 3.39 L Hemoglobin 9.8 L Hematocrit 29.4 L Mean Corpuscular Volume 86.7 Mean Corpuscular Hemoglobin 28.9 L Mean Corpuscular Hemoglobin Concent 33.3 Red Cell Distribution Width 16.6 H Platelet Count 153 Mean Platelet Volume 9.6 Neutrophils % 86.2 H Lymphocytes % 2.2 L Monocytes % 9.7 Eosinophils % 0.0 Basophils % 0.2 Nucleated Red Blood Cells % 0.0 Neutrophils # 7.5 Lymphocytes # 0.2 L Monocytes # 0.8 Eosinophils # 0.0 Basophils # 0.0 Nucleated Red Blood Cells # 0.0 Sodium Level 135 Potassium Level 3.5 Chloride Level 101 Carbon Dioxide Level 26 Anion Gap 12 Blood Urea Nitrogen 5 L Creatinine 0.65 Glucose Level 96 Phosphorus Level 0.8 L Magnesium Level 1.6 L C-Reactive Protein 22.5 H Ionized Calcium (Measured) 0.7 #L Amylase Level 191 H Lipase 946 H Test 01/15/17 10:43 Hepatitis B Surface Antigen NEGATIVE Hepatitis C Antibody NEGATIVE Medications Medications Current Medications Docusate Sodium (Colace) 100 mg Q12H PRN PO CONSTIPATION Last administered on 10:46; Admin Dose 100 MG; Start 01/09/17 at 19:30 Magnesium Hydroxide (Milk Of Mag) 30 ml DAILY PRN PO CONSTIPATION; Start at 19:30 Sodium Biphosphate/ Sodium Phosphate (Fleet Enema) 133 ml DAILY PRN [place] CONSTIPATION; Start 01/09/17 at 19:30 Heparin Sodium (Porcine) 5000 unit 5,000 unit Q12 SC Last administered on 08:18; Admin Dose 5,000 UNIT; Start 01/09/17 at 21:00 Piperacillin Sod/ Tazobactam Sod (Zosyn 3.375gm/ 100 ml (Pmx)) 100 ml @ 200 mls /hr Q6 IVPB Last administered on 01/15/17 12:33; Admin Dose 200 MLS/HR; Start 01/10/17 at 00:00 Vancomycin HCl (Vanco Iv Per Pharmacy) VANCOMYCIN PER PHARMACY NOTE XX ; Start 01/09/17 at 19:30 Nitroglycerin (Nitroglycerin (Sl Tab) 0.4 Mg) 1 tab Q5M PRN SL ANGINA; Start at 19:30 Metoprolol Succinate (Toprol Xl) 25 mg QHS PO Last administered on 01/14/17 22: 39; Admin Dose 25 MG; Start 01/09/17 at 21:00 Miscellaneous Information (Pending Santyl Order For Wound Care) This patient aranda... PRN PRN XX WOUND CARE; Start 01/10/17 at 03:30 Hydromorphone HCl (Dilaudid EXTRACTOR AND WRINGER OPERATOR) 1.0 MG/HR CONTINUOUS RATE .... Q4PCA IV Last administered on 01/15/17 12:47; Admin Dose 6 MG; Start 01/10/17 at 15:30 Ondansetron HCl 4 mg 4 mg Q6 IV Last administered on 01/15/17 12:33; Admin Dose 4 MG; Start 01/10/17 at 15:30 Acetaminophen (Ofirmev 1000mg/ 100ml Iv) 100 ml @ 400 mls/hr Q6 IVPB Last administered on 01/15/17 12:33; Admin Dose 400 MLS/HR; Start 01/10/17 at 16:30 IV Flush 10 ml 10 ml PRN PRN IV IV PROTOCOL; Start 01/10/17 at 20:30 Sodium Chloride 1,000 ml @ 200 mls/hr Q5H IV Last administered on 01/15/17 08: 18; Admin Dose 200 MLS/HR; Start 01/11/17 at 09:00 Vancomycin HCl/ Sodium Chloride (Vancocin/NS) 250 ml @ 83.333 mls/ hr Q8H IVPB Last administered on 01/15/17 12:33; Admin Dose 83.333 MLS/HR; Start 01/11/17 at 13:00 Ergocalciferol (Drisdol) 50,000 unit Sa@16 PO Last administered on 01/14/17 16: 43; Admin Dose 50,000 UNIT; Start 01/14/17 at 16:00 Prednisone (Prednisone) 10 mg DAILY PO Last administered on 01/15/17 08:16; Admin Dose 10 MG; Start 01/15/17 at 09:00 Pantoprazole (Protonix Iv) 40 mg DAILY@06 IV ; Start 01/16/17 at 06:00 FAUSTINO VALDIVIA MD Jan 15, 2017 15:09
[2017-01-15 15:19] LABS: ALBUMIN/GLOBULIN RATIO 0.76; BILIRUBIN,INDIRECT 0.7 mg/dl (0-1.1); BILIRUBIN,TOTAL 0.7 mg/dl (0.2-1.3); CREATININE 0.54 mg/dl (0.61-1.24); MAGNESIUM 1.9 mg/dl (1.7-2.5); PHOSPHORUS 1.3 mg/dl (2.5-4.9); POTASSIUM 3.5 mmol/L (3.5-5.1); TOTAL PROTEIN 4.6 g/dl (6.1-8.1)
[2017-01-15 15:51] LABS: CALCIUM 4.3 mg/dl (8.4-10.2)
--- NOTE | 2017-01-15 18:25 | CONS ---
Date/Time of Note Date/Time of Note DATE: 01/15/17 TIME: 18:25 Assessment/Plan Assessment/Plan Additional Assessment/Plan [facility] INPATIENT CONSULTATION NOTE DATE OF SERVICE: 01/15/2017 PLACE OF SERVICE: [facility], floor ASSESSMENT AND PLAN: A very-pleasant 31-year-old gentleman with multiple comorbid issues including anaplastic large B cell lymphoma undergoing chemotherapy for the last year and reportedly scheduled for change in therapy due to what appears to be lack of adequate response, presenting with multiple medical problems including recent diagnosis of pancreatitis. Very difficult situation with somewhat poor prognosis. Fortunately no indication for acute surgical intervention. No evidence of infected necrosis that would require drain placement or surgical necrosectomy of the pancreas. Would be important to try and avoid major interventions in order to not delay life-prolonging chemotherapeutic intervention. Explain all this to the patient (no family present in the room during my discussions with the patient) and answered all his questions. He appeared to understand and agreed with the plans. With above assessment, I've recommended the followin. Continue aggressive medical management 2. Keep n.p.o. 3. Agree with GI consultation and appreciate their input 4. Fluid resuscitation 5. Does not need antimicrobials for the pancreas, but he may need antimicrobial coverage for other reasons 6. Follow-up on biopsy results 7. Multidisciplinary tumor board presentation and discussions 8. Consideration for clinical trials once improved medically Thank you very much for having me involved in the care of this very pleasant patient and wonderful family. If you have any questions, please feel free to contact me at [phone]. Nature of presenting problem: High severity Please note that, given the extensive number of diagnoses or management options , the extensive amount and/or complexity of data needed to be reviewed, and high risk of complications and/or morbidity or mortality, this qualifies as high complexity type of decision-making. Disclaimer: Inadvertent spelling and grammatical errors are likely due to EHR/ dictation software use and do not reflect on the quality of delivered patient care. Also, please note that the electronic time recorded on this node does not necessarily reflect the actual time of the visit. 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 Status post CT-guided left flank subcutaneous nodule biopsy [facility] 01/12/2017. Comorbidities: 1. BMI 40.7 2. Small right pleural effusion with atelectasis and right lung base pneumonia. 3. Large B cell anaplastic lymphoma; status post chemo 1 month prior to presentation 4. Sepsis 5. Hyponatremia 6. Hypokalemia 7. Acute renal injury CONSULTATION REQUESTED BY: Sundar Hill MD HISTORY OF PRESENT ILLNESS: The patient is a very pleasant 31-year-old gentleman who was initially admitted on 01/10/2017 to [facility] with history of anaplastic large B-cell lymphoma and abdominal pain, nausea vomiting and fever of 2 weeks duration. He had a prolonged course in the hospital mainly in the ICU and then was diagnosed with pancreatitis. I was kindly asked to consult regarding management of pancreatitis. Patient reported mainly discomfort in his abdomen. He has not eaten well for the last 15 days. His last bowel movement was today. Had some nausea and vomiting in the last few days. No prior issues with pancreatitis that is known. ALLERGIES: Egg and milk (unknown reaction) MEDICATIONS Documented in the electronic records and reviewed by me. Please see the electronic records for details, as well as details for inpatient medications which were also reviewed by me. SOCIAL HISTORY:-Tob;-ETOH;-IVDU FAMILY HISTORY: There are no significant medical, surgical or oncologic issues in the family as reported by the patient or reflected in the chart. REVIEW OF SYSTEMS: Other than mentioned above, there were no other pertinent positives or pertinent negatives in an otherwise complete 14 point review of systems. PHYSICAL EXAMINATION GENERAL: The patient appears to be a very pleasant gentleman of descent lying in bed, appearing stated age, and otherwise in no acute distress. BMI: 40.7 VITAL SIGNS: Vitals reviewed carefully in the E HR (please also see auto important data if available as well as the electronic records) HEENT: Normocephalic and atraumatic. Extraocular muscles and hearing are grossly intact bilaterally and symmetrically. Sclerae are nonicteric. Oral cavity is clear; oral mucosa appear to be pink and moist. Dentition: fair. NECK: Supple. There is no lymphadenopathy or JVD. There is no submental, submandibular or supraclavicular lymphadenopathy. CHEST: Rises symmetrically with each breath; patient is breathing comfortably. There are no audible wheezes, rales or rhonchi on the gross exam. HEART: Pulse is regular and palpable on the right wrist. Capillary refill is normal. Carotid pulses are palpable bilaterally and symmetrically in the neck. EXTREMITIES: Lower extremities contain no pitting edema around the ankles bilaterally and symmetrically. ABDOMEN: Abdomen is soft, mildly tender diffusely in all quadrants and nondistended. No evidence of ascites, organomegaly, caput medusae, engorged subcutaneous veins, or other abnormalities. There are no peritoneal signs or guarding. SKIN: Appears to be pink and feels warm to touch. Several subcutaneous nodules are spread throughout the body. NEUROLOGIC: Awake, alert, and follows commands appropriately. LABORATORY DATA: See below IMAGING: See electronic chart. Please note that I've personally reviewed all pertinent available images and I agree in general with their overall reported findings. Abdomen and pelvis CT [facility] 01/14/2017 IMPRESSION: 1. Small right pleural effusion with atelectasis and right lung base pneumonia. 2. Pancreatitis with no significant change in peripancreatic fluid and mildly increased fluid extending into the bilateral abdomen, right greater than left. 3. New mild free fluid over the liver and spleen, and increased mild to moderate fluid in the pelvis, right greater than left. 4. No evident regions of low attenuation in the postcontrast pancreas to suggest pancreatic necrosis. 5. No evident abscess or air over the pancreas to suggest infection. 6. Mild regions of inflammatory changes in the small bowel and colon, likely secondary to pancreatic fluid. Consultation Date/Type/Reason Admit Date/Time Jan 09, 2017 at 19:08 Constitutional: other (Abdominal pain) ENT: no complaints Respiratory: cough, shortness of breath Cardiovascular: no complaints Gastrointestinal: nausea, pain, vomiting Genitourinary: no complaints Musculoskeletal: no complaints Skin: skin lesions (Multiple skin lesions and nodularities related to lymphoma) Psychological: nl mood/affect, no complaints Past Surgical History Past Surgical Hx: noncontributory Social History Alcohol Use: none Smoking Status: Never smoker Drug Use: none Exam/Review of Systems Vital Signs Vitals Vital Signs Date Time Temp Pulse Resp B/P Pulse Ox O2 Delivery O2 Flow Rate FiO2 01/15/17 16:00 99.0 104 16 115/56 98 2.0 01/15/17 10:43 Nasal Cannula 01/15/17 02:32 27 Intake and Output 01/14/17 01/14/17 01/15/17 15:00 23:00 07:00 Intake Total 200 ml 2645 ml 2583 ml Output Total 2000 ml 1300 ml Balance 200 ml 645 ml 1283 ml Results Result Diagram: 01/15/17 0415 01/15/17 1440 Results 24 hrs Laboratory Tests Test 01/14/17 20:21 01/15/17 04:15 01/15/17 07:33 01/15/17 10:43 Calcium Level 5.0 #*L 4.5 *L 4.2 *L White Blood Count 8.7 Red Blood Count 3.39 L Hemoglobin 9.8 L Hematocrit 29.4 L Mean Corpuscular Volume 86.7 Mean Corpuscular Hemoglobin 28.9 L Mean Corpuscular Hemoglobin Concent 33.3 Red Cell Distribution Width 16.6 H Platelet Count 153 Mean Platelet Volume 9.6 Neutrophils % 86.2 H Lymphocytes % 2.2 L Monocytes % 9.7 Eosinophils % 0.0 Basophils % 0.2 Nucleated Red Blood Cells % 0.0 Neutrophils # 7.5 Lymphocytes # 0.2 L Monocytes # 0.8 Eosinophils # 0.0 Basophils # 0.0 Nucleated Red Blood Cells # 0.0 Sodium Level 135 Potassium Level 3.5 Chloride Level 101 Carbon Dioxide Level 26 Anion Gap 12 Blood Urea Nitrogen 5 L Creatinine 0.65 Glucose Level 96 Phosphorus Level 0.8 L Magnesium Level 1.6 L C-Reactive Protein 22.5 H Lactic Acid Level 1.0 Ionized Calcium (Measured) 0.7 #L Amylase Level 191 H Lipase 946 H Hepatitis B Surface Antigen NEGATIVE Hepatitis C Antibody NEGATIVE Test 01/15/17 14:40 Sodium Level 133 L Potassium Level 3.5 Chloride Level 97 Carbon Dioxide Level 27 Anion Gap 13 Blood Urea Nitrogen 4 L Creatinine 0.54 L Glucose Level 105 Calcium Level 4.3 *L Phosphorus Level 1.3 L Magnesium Level 1.9 Total Bilirubin 0.7 Direct Bilirubin 0.00 Indirect Bilirubin 0.7 Aspartate Amino Transf (AST/SGOT) 96 H Alanine Aminotransferase (ALT/SGPT) 73 H Alkaline Phosphatase 101 Total Protein 4.6 L Albumin 2.0 L Globulin 2.60 Albumin/Globulin Ratio 0.76 Medications Medications Current Medications Docusate Sodium (Colace) 100 mg Q12H PRN PO CONSTIPATION Last administered on 10:46; Admin Dose 100 MG; Start 01/09/17 at 19:30 Magnesium Hydroxide (Milk Of Mag) 30 ml DAILY PRN PO CONSTIPATION; Start at 19:30 Sodium Biphosphate/ Sodium Phosphate (Fleet Enema) 133 ml DAILY PRN [place] CONSTIPATION; Start 01/09/17 at 19:30 Heparin Sodium (Porcine) 5000 unit 5,000 unit Q12 SC Last administered on 08:18; Admin Dose 5,000 UNIT; Start 01/09/17 at 21:00 Piperacillin Sod/ Tazobactam Sod (Zosyn 3.375gm/ 100 ml (Pmx)) 100 ml @ 200 mls /hr Q6 IVPB Last administered on 01/15/17 17:11; Admin Dose 200 MLS/HR; Start 01/10/17 at 00:00 Vancomycin HCl (Vanco Iv Per Pharmacy) VANCOMYCIN PER PHARMACY NOTE XX ; Start 01/09/17 at 19:30 Nitroglycerin (Nitroglycerin (Sl Tab) 0.4 Mg) 1 tab Q5M PRN SL ANGINA; Start at 19:30 Metoprolol Succinate (Toprol Xl) 25 mg QHS PO Last administered on 01/14/17 22: 39; Admin Dose 25 MG; Start 01/09/17 at 21:00 Miscellaneous Information (Pending [facility] Order For Wound Care) This patient aranda... PRN PRN XX WOUND CARE; Start 01/10/17 at 03:30 Hydromorphone HCl (Dilaudid RAPID TRANSIT OPERATOR) 1.0 MG/HR CONTINUOUS RATE .... Q4PCA IV Last administered on 01/15/17 16:08; Admin Dose 1 MG; Start 01/10/17 at 15:30 Ondansetron HCl 4 mg 4 mg Q6 IV Last administered on 01/15/17 17:11; Admin Dose 4 MG; Start 01/10/17 at 15:30 Acetaminophen (Ofirmev 1000mg/ 100ml Iv) 100 ml @ 400 mls/hr Q6 IVPB Last administered on 01/15/17 17:11; Admin Dose 400 MLS/HR; Start 01/10/17 at 16:30 IV Flush 10 ml 10 ml PRN PRN IV IV PROTOCOL; Start 01/10/17 at 20:30 Sodium Chloride 1,000 ml @ 200 mls/hr Q5H IV Last administered on 01/15/17 14: 17; Admin Dose 200 MLS/HR; Start 01/11/17 at 09:00 Vancomycin HCl/ Sodium Chloride (Vancocin/NS) 250 ml @ 83.333 mls/ hr Q8H IVPB Last administered on 01/15/17 12:33; Admin Dose 83.333 MLS/HR; Start 01/11/17 at 13:00 Ergocalciferol (Drisdol) 50,000 unit Sa@16 PO Last administered on 01/14/17 16: 43; Admin Dose 50,000 UNIT; Start 01/14/17 at 16:00 Prednisone (Prednisone) 10 mg DAILY PO Last administered on 01/15/17 08:16; Admin Dose 10 MG; Start 01/15/17 at 09:00 Pantoprazole (Protonix Iv) 40 mg DAILY@06 IV ; Start 01/16/17 at 06:00 Miscellaneous Information (*Rx Drug Level Order Reminder*) VANCO TROUGH @ 0, 400 ON... ONCE ONCE XX ; Start 01/16/17 at 04:00; Stop 01/16/17 at 04:01 LENKA HERNANDEZ M.D. Jan 15, 2017 18:25
[2017-01-15] MEDS: METOPROLOL (XL) 25 MG TAB PO SCH (20:05)
[2017-01-15 20:55] LABS: ADD UMIC YES; UR ASCORBIC ACID NEGATIVE (NEGATIVE); UR BACTERIA FEW /HPF (NONE SEEN); UR BILIRUBIN (Dip) NEGATIVE (NEGATIVE); UR BLOOD (Dip) 2+ mg/dL (NEGATIVE); UR CLARITY CLEAR (CLEAR); UR COLOR YELLOW (YELLOW); UR GLUCOSE (Dip) NEGATIVE (NEGATIVE); UR KETONES (Dip) TRACE mg/dL (NEGATIVE); UR LEUKOCYTE ESTERASE (Dip) NEGATIVE Leu/ul (NEGATIVE); UR NITRITE (Dip) NEGATIVE (NEGATIVE); UR RBC 0 /HPF (0-5); UR SPECIFIC GRAVITY (Dip) 1.012 (1.003-1.030); UR TOTAL PROTEIN (Dip) NEGATIVE (NEGATIVE); UR UROBILINOGEN (Dip) NEGATIVE (NEGATIVE)
[2017-01-15] MEDS: CALCIUM GLUCONATE 10% 2 GM in SOD CHLORIDE 0.9% 100 ML IVPB SCH (22:31)
[2017-01-16] VITALS (24 sets, daily range): BP systolic 64–151; BP diastolic 45–132; PULSE 106–132; RESP 11–24
[2017-01-16] MEDS: CALCIUM GLUCONATE 10% 2 GM in SOD CHLORIDE 0.9% 100 ML IVPB SCH (00:38)
[2017-01-16] MEDS: HYDROmorphONE 0.2 MG/ML PCA IV SCH ×4 (01:39→12:54)
[2017-01-16] MEDS: VANCOMYCIN 1.25 GM in SOD CHLORIDE 0.9% 250 ML IVPB SCH (04:53)
[2017-01-16] MEDS: SOD CHLORIDE 0.9% 1,000 ML IV SCH ×3 (04:54→18:58)
[2017-01-16] MEDS: PANTOPRAZOLE 40 MG INJ IV SCH (05:03)
[2017-01-16] MEDS: ONDANSETRON 4 MG INJ IV SCH ×4 (05:03→23:57)
[2017-01-16] MEDS: PIPER-TAZO 3.375 GM IV (PMX) 100 ML IVPB SCH ×4 (05:03→23:57)
[2017-01-16 05:16] LABS: ABNORMAL IP MESSAGE 1; BASOPHILS % 0.1 % (0.0-2.0); HEMATOCRIT 28.2 % (42.0-52.0); LYMPHOCYTES # 0.2 10^3/ul (0.8-2.9); LYMPHOCYTES % 1.9 % (15.0-51.0); MEAN CORPUSCULAR HEMOGLOBIN 27.7 pg (29.0-33.0); MEAN CORPUSCULAR HGB CONC 31.9 g/dl (32.0-37.0); MEAN CORPUSCULAR VOLUME 86.8 fl (82.0-101.0); MEAN PLATELET VOLUME 10.5 fl (7.4-10.4); MONOCYTE # 0.8 10^3/ul (0.3-0.9); MONOCYTES % 9.9 % (0.0-11.0); NEUTROPHIL # 6.7 10^3/ul (1.6-7.5); NEUTROPHILS % 85.3 % (39.0-77.0); PLATELET COUNT 139 10^3/UL (140-415); POSITIVE DIFF @See below; RED BLOOD COUNT 3.25 10^6/ul (4.70-6.10); RED CELL DISTRIBUTION WIDTH 16.6 % (11.5-14.5); WHITE BLOOD COUNT 7.9 10^3/ul (4.8-10.8)
[2017-01-16 05:40] LABS: INR 2.36; PROTIME 26.1 Sec (12.2-14.2)
[2017-01-16 05:49] LABS: PARTIAL THROMBOPLASTIN TIME 74.5 Sec (25.0-35.0)
[2017-01-16] MEDS: ACETAMINOPHEN 1000MG/100ML IV 100 ML IVPB SCH ×4 (06:00→23:57)
[2017-01-16 06:07] LABS: ALBUMIN/GLOBULIN RATIO 0.74; BILIRUBIN,DIRECT 0.3 mg/dl (0.00-0.20); BILIRUBIN,INDIRECT 0.7 mg/dl (0-1.1); CREATININE 0.53 mg/dl (0.61-1.24); POTASSIUM 3.4 mmol/L (3.5-5.1); TOTAL PROTEIN 4.7 g/dl (6.1-8.1)
[2017-01-16] MEDS: ALBUTEROL/IPRATROPIUM (NEB) 3 ML AMP HHN PRN ×2 (06:10→20:14)
[2017-01-16 06:32] LABS: CALCIUM 4.6 mg/dl (8.4-10.2)
[2017-01-16 06:47] LABS: MAGNESIUM 1.6 mg/dl (1.7-2.5); PHOSPHORUS 1.4 mg/dl (2.5-4.9)
[2017-01-16] MEDS ORDERED: CALCIUM GLUCONATE 10% 2 GM in SOD CHLORIDE 0.9% 100 ML IVPB SCH (07:30)
--- NOTE | 2017-01-16 08:04 | RADRPT ---
PROCEDURE: XR Chest. CLINICAL INDICATION: Shortness of breath. TECHNIQUE: Single frontal view. COMPARISON: 01/10/2017. FINDINGS: There is a right arm PICC line with the tip in the cavoatrial junction region. Extensive patchy cons olidation throughout the right lung is unchanged. The left lung is clear. The heart is enlarged. There is no pleural effusion. There is no pneumothorax. IMPRESSION: 1. Right arm PICC line tip in satisfactory position. 2. Patchy consolidation throughout the right lung, unchanged. 3. Cardiomegaly. 4. No change from 01/10/2017. RPTAT: QQ .Portillo Heart MD, MD Date Time Electronically viewed and signed by .Portillo Heart MD, MD on 01/16/2017 08:04 .R/
[2017-01-16] MEDS ORDERED: CALCIUM CHLORIDE IV SCH (08:30)
[2017-01-16] MEDS ORDERED: SOD CHLORIDE 0.9% IV SCH (08:30)
[2017-01-16] MEDS ORDERED: MAGNESIUM SULFATE 4 GM/100 ML 100 ML IVPB ONE (09:00)
[2017-01-16] MEDS: predniSONE 20 MG TAB PO SCH (09:42)
[2017-01-16] MEDS: HEPARIN 5,000 UNIT/0.5 ML VIAL SC SCH (09:43)
--- NOTE | 2017-01-16 09:55 | CONS ---
Date/Time of Note Date/Time of Note DATE: 01/16/17 TIME: 09:53 Assessment/Plan Assessment/Plan Additional Assessment/Plan Dictating a postdated progress note on this patient visit January 15, 2017. He remains in the intensive care unit with hypocalcemia other significant fluid and electrolyte abnormalities. There is a concern also for possible sepsis syndrome, he has been diagnosed with acute pancreatitis he has multiple wounds both upper and lower extremity and perirectal region. Pain is controlled with Dilaudid continuous and PEST CONTROLLER. There is no hemodynamic compromise. Consultation Date/Type/Reason Admit Date/Time Jan 09, 2017 at 19:08 Initial Consult Date 01/10/17 Type of Consultation: Pain management Referring Provider: YAO RAHMAN Exam/Review of Systems Vital Signs Vitals Vital Signs Date Time Temp Pulse Resp B/P Pulse Ox O2 Delivery O2 Flow Rate FiO2 01/16/17 08:00 111 01/16/17 08:00 98.8 18 104/51 98 Nasal Cannula 2.0 01/16/17 06:20 27 Intake and Output 01/15/17 01/15/17 01/16/17 15:00 23:00 07:00 Intake Total 2103 ml 1040 ml 2190 ml Output Total 1550 ml 2000 ml 1300 ml Balance 553 ml -960 ml 890 ml Exam Constitutional: distress Respiratory: clear to auscultation, normal air movement Cardiovascular: nl pulses, regular rate and rhythm Neurological: WINDOW CLERK II-XII intact, nl mental status, nl speech, nl strength Results Result Diagram: 01/16/17 0430 01/16/17 0430 Results 24 hrs Laboratory Tests Test 01/15/17 10:43 01/15/17 14:40 01/15/17 18:40 01/15/17 20:30 Hepatitis B Surface Antigen NEGATIVE Hepatitis C Antibody NEGATIVE Sodium Level 133 L Potassium Level 3.5 Chloride Level 97 Carbon Dioxide Level 27 Anion Gap 13 Blood Urea Nitrogen 4 L Creatinine 0.54 L Glucose Level 105 Calcium Level 4.3 *L 4.1 *L Phosphorus Level 1.3 L Magnesium Level 1.9 Total Bilirubin 0.7 Direct Bilirubin 0.00 Indirect Bilirubin 0.7 Aspartate Amino Transf (AST/SGOT) 96 H Alanine Aminotransferase (ALT/SGPT) 73 H Alkaline Phosphatase 101 Total Protein 4.6 L Albumin 2.0 L Globulin 2.60 Albumin/Globulin Ratio 0.76 Urine Color YELLOW Urine Clarity CLEAR Urine pH 5.0 Urine Specific [place] 1.012 Urine Ketones TRACE A Urine Nitrite NEGATIVE Urine Bilirubin NEGATIVE Urine Urobilinogen NEGATIVE Urine Leukocyte Esterase NEGATIVE Urine Microscopic RBC 0 Urine Microscopic WBC 1 Urine Bacteria FEW A Urine Hemoglobin 2+ H Urine Glucose NEGATIVE Urine Total Protein NEGATIVE Test 01/16/17 04:30 White Blood Count 7.9 Red Blood Count 3.25 L Hemoglobin 9.0 L Hematocrit 28.2 L Mean Corpuscular Volume 86.8 Mean Corpuscular Hemoglobin 27.7 L Mean Corpuscular Hemoglobin Concent 31.9 L Red Cell Distribution Width 16.6 H Platelet Count 139 L Mean Platelet Volume 10.5 H Neutrophils % 85.3 H Lymphocytes % 1.9 L Monocytes % 9.9 Eosinophils % 0.0 Basophils % 0.1 Nucleated Red Blood Cells % 0.0 Neutrophils # 6.7 Lymphocytes # 0.2 L Monocytes # 0.8 Eosinophils # 0.0 Basophils # 0.0 Nucleated Red Blood Cells # 0.0 Prothrombin Time 26.1 H Prothrombin Time Ratio 2.0 INR International Normalized Ratio 2.36 Activated Partial Thromboplast Time 74.5 *H Sodium Level 134 L Potassium Level 3.4 L Chloride Level 97 Carbon Dioxide Level 27 Anion Gap 13 Blood Urea Nitrogen 5 L Creatinine 0.53 L Glucose Level 94 Lactic Acid Level 1.1 Calcium Level 4.6 *L Phosphorus Level 1.4 L Magnesium Level 1.6 L Total Bilirubin 1.0 Direct Bilirubin 0.30 #H Indirect Bilirubin 0.7 Aspartate Amino Transf (AST/SGOT) 80 H Alanine Aminotransferase (ALT/SGPT) 64 Alkaline Phosphatase 95 Total Protein 4.7 L Albumin 2.0 L Globulin 2.70 Albumin/Globulin Ratio 0.74 Vancomycin Level Trough 8.2 L Medications Medications Current Medications Docusate Sodium (Colace) 100 mg Q12H PRN PO CONSTIPATION Last administered on 10:46; Admin Dose 100 MG; Start 01/09/17 at 19:30 Magnesium Hydroxide (Milk Of Mag) 30 ml DAILY PRN PO CONSTIPATION; Start at 19:30 Sodium Biphosphate/ Sodium Phosphate (Fleet Enema) 133 ml DAILY PRN [place] CONSTIPATION; Start 01/09/17 at 19:30 Heparin Sodium (Porcine) 5000 unit 5,000 unit Q12 SC Last administered on 09:43; Admin Dose 5,000 UNIT; Start 01/09/17 at 21:00 Piperacillin Sod/ Tazobactam Sod (Zosyn 3.375gm/ 100 ml (Pmx)) 100 ml @ 200 mls /hr Q6 IVPB Last administered on 01/16/17 05:03; Admin Dose 200 MLS/HR; Start 01/10/17 at 00:00 Vancomycin HCl (Vanco Iv Per Pharmacy) VANCOMYCIN PER PHARMACY NOTE XX ; Start 01/09/17 at 19:30 Nitroglycerin (Nitroglycerin (Sl Tab) 0.4 Mg) 1 tab Q5M PRN SL ANGINA; Start at 19:30 Metoprolol Succinate (Toprol Xl) 25 mg QHS PO Last administered on 01/15/17 20: 05; Admin Dose 25 MG; Start 01/09/17 at 21:00 [facility]isc[facility] This patient aranda... PRN PRN XX WOUND CARE; Start 01/10/17 at 03:30 Hydromorphone HCl (Dilaudid PEST CONTROLLER) 1.0 MG/HR CONTINUOUS RATE .... Q4PCA IV Last administered on 01/16/17 09:44; Admin Dose 6 MG; Start 01/10/17 at 15:30 Ondansetron HCl 4 mg 4 mg Q6 IV Last administered on 01/16/17 05:03; Admin Dose 4 MG; Start 01/10/17 at 15:30 Acetaminophen (Ofirmev 1000mg/ 100ml Iv) 100 ml @ 400 mls/hr Q6 IVPB Last administered on 01/16/17 06:00; Admin Dose 400 MLS/HR; Start 01/10/17 at 16:30 IV Flush 10 ml 10 ml PRN PRN IV IV PROTOCOL; Start 01/10/17 at 20:30 Sodium Chloride 1,000 ml @ 125 mls/hr Q8H IV Last administered on 01/16/17 04: 54; Admin Dose 200 MLS/HR; Start 01/11/17 at 09:00 Vancomycin HCl/ Sodium Chloride (Vancocin/NS) 250 ml @ 83.333 mls/ hr Q8H IVPB Last administered on 01/16/17 04:53; Admin Dose 83.333 MLS/HR; Start 01/11/17 at 13:00 Ergocalciferol (Drisdol) 50,000 unit Sa@16 PO Last administered on 01/14/17 16: 43; Admin Dose 50,000 UNIT; Start 01/14/17 at 16:00 Prednisone (Prednisone) 10 mg DAILY PO Last administered on 01/16/17 09:42; Admin Dose 10 MG; Start 01/15/17 at 09:00 Pantoprazole 40 mg 40 mg DAILY@06 IV Last administered on 01/16/17 05:03; Admin Dose 40 MG; Start 01/16/17 at 06:00 Magnesium Sulfate 100 ml @ 25 mls/hr ONCE ONCE IVPB Last administered on 09:36; Admin Dose 25 MLS/HR; Start 01/16/17 at 09:00; Stop 01/16/17 at 12:59 Calcium Chloride/ Sodium Chloride (Ca Chloride/NS) 1,200 ml @ 50 mls/hr Q24H IV Last administered on 01/16/17 09:35; Admin Dose 50 MLS/HR; Start 01/16/17 at 08:30; Stop 01/17/17 at 08:29 SHELBY WHITE Jan 16, 2017 09:55
--- NOTE | 2017-01-16 09:59 | CONS ---
Date/Time of Note Date/Time of Note DATE: 01/16/17 TIME: 09:55 Assessment/Plan Assessment/Plan Additional Assessment/Plan Complaints of increasing pain today, he looks in distress denies nausea vomiting there is no significant side effects associated with his current pain control medications. He sleeps off and on his mood is good he is extremely pleasant although in pain. Up until now he has been well controlled on ETYMOLOGY TEACHER continuous and demand dosing. We will adjust his pain control today continue with the continuous dosing at 1 mg an hour discontinue the demand dose change to as needed fentanyl 50 mics every 2 hours as needed. Consultation Date/Type/Reason Admit Date/Time Jan 09, 2017 at 19:08 Initial Consult Date 01/10/17 Type of Consultation: Pain management Referring Provider: YAO RAHMAN Exam/Review of Systems Vital Signs Vitals Vital Signs Date Time Temp Pulse Resp B/P Pulse Ox O2 Delivery O2 Flow Rate FiO2 01/16/17 08:00 111 01/16/17 08:00 98.8 18 104/51 98 Nasal Cannula 2.0 01/16/17 06:20 27 Intake and Output 01/15/17 01/15/17 01/16/17 15:00 23:00 07:00 Intake Total 2103 ml 1040 ml 2190 ml Output Total 1550 ml 2000 ml 1300 ml Balance 553 ml -960 ml 890 ml Exam Constitutional: alert, oriented, well developed Cardiovascular: nl pulses, regular rate and rhythm Results Result Diagram: 01/16/17 0430 01/16/17 0430 Results 24 hrs Laboratory Tests Test 01/15/17 10:43 01/15/17 14:40 01/15/17 18:40 01/15/17 20:30 Hepatitis B Surface Antigen NEGATIVE Hepatitis C Antibody NEGATIVE Sodium Level 133 L Potassium Level 3.5 Chloride Level 97 Carbon Dioxide Level 27 Anion Gap 13 Blood Urea Nitrogen 4 L Creatinine 0.54 L Glucose Level 105 Calcium Level 4.3 *L 4.1 *L Phosphorus Level 1.3 L Magnesium Level 1.9 Total Bilirubin 0.7 Direct Bilirubin 0.00 Indirect Bilirubin 0.7 Aspartate Amino Transf (AST/SGOT) 96 H Alanine Aminotransferase (ALT/SGPT) 73 H Alkaline Phosphatase 101 Total Protein 4.6 L Albumin 2.0 L Globulin 2.60 Albumin/Globulin Ratio 0.76 Urine Color YELLOW Urine Clarity CLEAR Urine pH 5.0 Urine Specific [place] 1.012 Urine Ketones TRACE A Urine Nitrite NEGATIVE Urine Bilirubin NEGATIVE Urine Urobilinogen NEGATIVE Urine Leukocyte Esterase NEGATIVE Urine Microscopic RBC 0 Urine Microscopic WBC 1 Urine Bacteria FEW A Urine Hemoglobin 2+ H Urine Glucose NEGATIVE Urine Total Protein NEGATIVE Test 01/16/17 04:30 White Blood Count 7.9 Red Blood Count 3.25 L Hemoglobin 9.0 L Hematocrit 28.2 L Mean Corpuscular Volume 86.8 Mean Corpuscular Hemoglobin 27.7 L Mean Corpuscular Hemoglobin Concent 31.9 L Red Cell Distribution Width 16.6 H Platelet Count 139 L Mean Platelet Volume 10.5 H Neutrophils % 85.3 H Lymphocytes % 1.9 L Monocytes % 9.9 Eosinophils % 0.0 Basophils % 0.1 Nucleated Red Blood Cells % 0.0 Neutrophils # 6.7 Lymphocytes # 0.2 L Monocytes # 0.8 Eosinophils # 0.0 Basophils # 0.0 Nucleated Red Blood Cells # 0.0 Prothrombin Time 26.1 H Prothrombin Time Ratio 2.0 INR International Normalized Ratio 2.36 Activated Partial Thromboplast Time 74.5 *H Sodium Level 134 L Potassium Level 3.4 L Chloride Level 97 Carbon Dioxide Level 27 Anion Gap 13 Blood Urea Nitrogen 5 L Creatinine 0.53 L Glucose Level 94 Lactic Acid Level 1.1 Calcium Level 4.6 *L Phosphorus Level 1.4 L Magnesium Level 1.6 L Total Bilirubin 1.0 Direct Bilirubin 0.30 #H Indirect Bilirubin 0.7 Aspartate Amino Transf (AST/SGOT) 80 H Alanine Aminotransferase (ALT/SGPT) 64 Alkaline Phosphatase 95 Total Protein 4.7 L Albumin 2.0 L Globulin 2.70 Albumin/Globulin Ratio 0.74 Vancomycin Level Trough 8.2 L Medications Medications Current Medications Docusate Sodium (Colace) 100 mg Q12H PRN PO CONSTIPATION Last administered on 10:46; Admin Dose 100 MG; Start 01/09/17 at 19:30 Magnesium Hydroxide (Milk Of Mag) 30 ml DAILY PRN PO CONSTIPATION; Start at 19:30 Sodium Biphosphate/ Sodium Phosphate (Fleet Enema) 133 ml DAILY PRN [place] CONSTIPATION; Start 01/09/17 at 19:30 Heparin Sodium (Porcine) 5000 unit 5,000 unit Q12 SC Last administered on 09:43; Admin Dose 5,000 UNIT; Start 01/09/17 at 21:00 Piperacillin Sod/ Tazobactam Sod (Zosyn 3.375gm/ 100 ml (Pmx)) 100 ml @ 200 mls /hr Q6 IVPB Last administered on 01/16/17 05:03; Admin Dose 200 MLS/HR; Start 01/10/17 at 00:00 Vancomycin HCl (Vanco Iv Per Pharmacy) VANCOMYCIN PER PHARMACY NOTE XX ; Start 01/09/17 at 19:30 Nitroglycerin (Nitroglycerin (Sl Tab) 0.4 Mg) 1 tab Q5M PRN SL ANGINA; Start at 19:30 Metoprolol Succinate (Toprol Xl) 25 mg QHS PO Last administered on 01/15/17 20: 05; Admin Dose 25 MG; Start 01/09/17 at 21:00 Miscellaneous Information (Pending Santyl Order For Wound Care) This patient aranda... PRN PRN XX WOUND CARE; Start 01/10/17 at 03:30 Hydromorphone HCl (Dilaudid ETYMOLOGY TEACHER) 1.0 MG/HR CONTINUOUS RATE .... Q4PCA IV Last administered on 01/16/17 09:44; Admin Dose 6 MG; Start 01/10/17 at 15:30 Ondansetron HCl 4 mg 4 mg Q6 IV Last administered on 01/16/17 05:03; Admin Dose 4 MG; Start 01/10/17 at 15:30 Acetaminophen (Ofirmev 1000mg/ 100ml Iv) 100 ml @ 400 mls/hr Q6 IVPB Last administered on 01/16/17 06:00; Admin Dose 400 MLS/HR; Start 01/10/17 at 16:30 IV Flush 10 ml 10 ml PRN PRN IV IV PROTOCOL; Start 01/10/17 at 20:30 Sodium Chloride 1,000 ml @ 125 mls/hr Q8H IV Last administered on 01/16/17 04: 54; Admin Dose 200 MLS/HR; Start 01/11/17 at 09:00 Vancomycin HCl/ Sodium Chloride (Vancocin/NS) 250 ml @ 83.333 mls/ hr Q8H IVPB Last administered on 01/16/17 04:53; Admin Dose 83.333 MLS/HR; Start 01/11/17 at 13:00 Ergocalciferol (Drisdol) 50,000 unit Sa@16 PO Last administered on 01/14/17 16: 43; Admin Dose 50,000 UNIT; Start 01/14/17 at 16:00 Prednisone (Prednisone) 10 mg DAILY PO Last administered on 01/16/17 09:42; Admin Dose 10 MG; Start 01/15/17 at 09:00 Pantoprazole 40 mg 40 mg DAILY@06 IV Last administered on 01/16/17 05:03; Admin Dose 40 MG; Start 01/16/17 at 06:00 Magnesium Sulfate 100 ml @ 25 mls/hr ONCE ONCE IVPB Last administered on 09:36; Admin Dose 25 MLS/HR; Start 01/16/17 at 09:00; Stop 01/16/17 at 12:59 Calcium Chloride/ Sodium Chloride (Ca Chloride/NS) 1,200 ml @ 50 mls/hr Q24H IV Last administered on 01/16/17 09:35; Admin Dose 50 MLS/HR; Start 01/16/17 at 08:30; Stop 01/17/17 at 08:29 SHELBY WHITE Jan 16, 2017 09:59
--- NOTE | 2017-01-16 12:04 | CONS ---
Date/Time of Note Date/Time of Note DATE: 01/16/17 TIME: 12:02 Consult Date/Type/Reason Admit Date/Time Jan 09, 2017 at 19:08 Initial Consult Date 01/15/17 Type of Consultation: Pulmonary Ordering Provider: YAO RAHMAN Subjective Remains relatively stable moderate amount of discomfort. Currently hemodynamically stable. Objective Vital Signs Date Time Temp Pulse Resp B/P Pulse Ox O2 Delivery O2 Flow Rate FiO2 01/16/17 09:50 16 01/16/17 08:00 111 01/16/17 08:00 98.8 104/51 98 Nasal Cannula 2.0 01/16/17 06:20 27 Intake and Output 01/15/17 01/15/17 01/16/17 14:59 22:59 06:59 Intake Total 2103 ml 840 ml 2390 ml Output Total 1550 ml 1700 ml 1600 ml Balance 553 ml -860 ml 790 ml Exam GENERAL: Morbidly obese gentleman comfortable at rest no acute distress VITAL SIGNS: per chart NECK: Supple. No JVD or lymphadenopathy. CARDIAC EXAM: S1, S2. No added sounds or murmurs. CHEST: clear bilaterally, No added sounds, rales or wheezes ABDOMEN: Soft, nontender. No guarding or rebound. EXTREMITIES: No cyanosis, clubbing or edema. NEUROLOGIC: Generalized weakness. Results/Medications Result Diagram: 01/16/17 0430 01/16/17 0430 Results 24 hrs Laboratory Tests Test 01/15/17 14:40 01/15/17 18:40 01/15/17 20:30 01/16/17 04:30 Sodium Level 133 L 134 L Potassium Level 3.5 3.4 L Chloride Level 97 97 Carbon Dioxide Level 27 27 Anion Gap 13 13 Blood Urea Nitrogen 4 L 5 L Creatinine 0.54 L 0.53 L Glucose Level 105 94 Calcium Level 4.3 *L 4.1 *L 4.6 *L Phosphorus Level 1.3 L 1.4 L Magnesium Level 1.9 1.6 L Total Bilirubin 0.7 1.0 Direct Bilirubin 0.00 0.30 #H Indirect Bilirubin 0.7 0.7 Aspartate Amino Transf (AST/SGOT) 96 H 80 H Alanine Aminotransferase (ALT/SGPT) 73 H 64 Alkaline Phosphatase 101 95 Total Protein 4.6 L 4.7 L Albumin 2.0 L 2.0 L Globulin 2.60 2.70 Albumin/Globulin Ratio 0.76 0.74 Urine Color YELLOW Urine Clarity CLEAR Urine pH 5.0 Urine Specific [place] 1.012 Urine Ketones TRACE A Urine Nitrite NEGATIVE Urine Bilirubin NEGATIVE Urine Urobilinogen NEGATIVE Urine Leukocyte Esterase NEGATIVE Urine Microscopic RBC 0 Urine Microscopic WBC 1 Urine Bacteria FEW A Urine Hemoglobin 2+ H Urine Glucose NEGATIVE Urine Total Protein NEGATIVE White Blood Count 7.9 Red Blood Count 3.25 L Hemoglobin 9.0 L Hematocrit 28.2 L Mean Corpuscular Volume 86.8 Mean Corpuscular Hemoglobin 27.7 L Mean Corpuscular Hemoglobin Concent 31.9 L Red Cell Distribution Width 16.6 H Platelet Count 139 L Mean Platelet Volume 10.5 H Neutrophils % 85.3 H Lymphocytes % 1.9 L Monocytes % 9.9 Eosinophils % 0.0 Basophils % 0.1 Nucleated Red Blood Cells % 0.0 Neutrophils # 6.7 Lymphocytes # 0.2 L Monocytes # 0.8 Eosinophils # 0.0 Basophils # 0.0 Nucleated Red Blood Cells # 0.0 Prothrombin Time 26.1 H Prothrombin Time Ratio 2.0 INR International Normalized Ratio 2.36 Activated Partial Thromboplast Time 74.5 *H Lactic Acid Level 1.1 Vancomycin Level Trough 8.2 L Medications Current Medications Docusate Sodium (Colace) 100 mg Q12H PRN PO CONSTIPATION Last administered on 10:46; Admin Dose 100 MG; Start 01/09/17 at 19:30 Magnesium Hydroxide (Milk Of Mag) 30 ml DAILY PRN PO CONSTIPATION; Start at 19:30 Sodium Biphosphate/ Sodium Phosphate (Fleet Enema) 133 ml DAILY PRN [place] CONSTIPATION; Start 01/09/17 at 19:30 Heparin Sodium (Porcine) 5000 unit 5,000 unit Q12 SC Last administered on 09:43; Admin Dose 5,000 UNIT; Start 01/09/17 at 21:00 Piperacillin Sod/ Tazobactam Sod (Zosyn 3.375gm/ 100 ml (Pmx)) 100 ml @ 200 mls /hr Q6 IVPB Last administered on 01/16/17 05:03; Admin Dose 200 MLS/HR; Start 01/10/17 at 00:00 Vancomycin HCl (Vanco Iv Per Pharmacy) VANCOMYCIN PER PHARMACY NOTE XX ; Start 01/09/17 at 19:30 Nitroglycerin (Nitroglycerin (Sl Tab) 0.4 Mg) 1 tab Q5M PRN SL ANGINA; Start at 19:30 Metoprolol Succinate (Toprol Xl) 25 mg QHS PO Last administered on 01/15/17 20: 05; Admin Dose 25 MG; Start 01/09/17 at 21:00 Miscellaneous Information (Pending Santyl Order For Wound Care) This patient aranda... PRN PRN XX WOUND CARE; Start 01/10/17 at 03:30 Hydromorphone HCl (Dilaudid MILLER FIRST) 1.0 MG/HR CONTINUOUS RATE ... Q4PCA IV Last administered on 01/16/17 09:44; Admin Dose 6 MG; Start 01/10/17 at 15:30 Ondansetron HCl 4 mg 4 mg Q6 IV Last administered on 01/16/17 05:03; Admin Dose 4 MG; Start 01/10/17 at 15:30 Acetaminophen (Ofirmev 1000mg/ 100ml Iv) 100 ml @ 400 mls/hr Q6 IVPB Last administered on 01/16/17 06:00; Admin Dose 400 MLS/HR; Start 01/10/17 at 16:30 IV Flush 10 ml 10 ml PRN PRN IV IV PROTOCOL; Start 01/10/17 at 20:30 Sodium Chloride (NS) 1,000 ml @ 125 mls/hr Q8H IV Last administered on 04:54; Admin Dose 200 MLS/HR; Start 01/11/17 at 09:00 Ergocalciferol (Drisdol) 50,000 unit Sa@16 PO Last administered on 01/14/17 16: 43; Admin Dose 50,000 UNIT; Start 01/14/17 at 16:00 Prednisone (Prednisone) 10 mg DAILY PO Last administered on 01/16/17 09:42; Admin Dose 10 MG; Start 01/15/17 at 09:00 Pantoprazole 40 mg 40 mg DAILY@06 IV Last administered on 01/16/17 05:03; Admin Dose 40 MG; Start 01/16/17 at 06:00 Magnesium Sulfate 100 ml @ 25 mls/hr ONCE ONCE IVPB Last administered on 09:36; Admin Dose 25 MLS/HR; Start 01/16/17 at 09:00; Stop 01/16/17 at 12:59 Calcium Chloride/ Sodium Chloride (Ca Chloride/NS) 1,200 ml @ 50 mls/hr Q24H IV Last administered on 01/16/17t 09:35; Admin Dose 50 MLS/HR; Start 01/16/17 at 08:30; Stop 01/17/17 at 08:29 Fentanyl 50 mcg 50 mcg Q2H PRN IV PAIN; Start 01/16/17 at 10:00 Vancomycin HCl 1.5 gm/Sodium Chloride 250 ml @ 83.333 mls/ hr Q8H IVPB ; Start 01/16/17 at 13:00 Potassium Phosphate/Sodium Chloride (K Phos (Meq)/NS) 254.5455 ml @ 63.636 m... ONCE ONCE IVPB ; Start 01/16/17 at 13:00; Stop 01/16/17 at 16:59 Assessment/Plan Chief Complaint/Hosp Course IMP: 1. Severe pancreatitis--likely due to anaplastic B-cell lymphoma 2. Severe HypoCa++--2/2 #1 3. UTI 4. Anaplastic B-cell lymphoma 5. RAMU 6. Pulmonary nodular opacities--c/w metastatic lymphoma RECS: 1. Aggressive IVF's 2. Bladder pressures to exclude abdominal compartment syndrome 3. Replete Ca++ 4. Pain control via MILLER FIRST 5. Follow lytes 6. Surgery recommendations 7. Repeat chest x-ray unchanged Problems: [facility]INH [facility] Jan 16, 2017 12:04
[2017-01-16] MEDS ORDERED: POTASSIUM PHOSPHATE 20 MEQ in SOD CHLORIDE 0.9% 250 ML IVPB ONE (13:00)
[2017-01-16] MEDS: VANCOMYCIN 1.5 GM in SOD CHLORIDE 0.9% 250 ML IVPB SCH ×2 (13:50→21:48)
--- NOTE | 2017-01-16 14:03 | CONS ---
Date/Time of Note Date/Time of Note DATE: 01/16/17 TIME: 14:00 Assessment/Plan Assessment/Plan Chief Complaint/Hosp Course 31-year-old gentleman with a history of a non-Hodgkin's large B cell anaplastic lymphoma diagnosed roughly 18 months ago. He came into the hospital with abdominal pain but at that time had a low lipase level. At that time his calciums were normal his thyroid function was normal he had on appropriate serum cortisol despite having been on tapering dosages of prednisone as an outpatient. During the course of hospitalization his abdominal symptoms changed and Dr. Rahman reordered his lipase which was markedly elevated. Because of this he is been added the diagnosis of acute pancreatitis. The patient does not consume alcohol and the best of her knowledge has not been on any medications and I do this however he was recently placed on Bactrim. He was transferred to the intensive care unit with significant hypocalcemia and the nursing staff being concerned for his status. Problems: (1) Lymphoma, anaplastic large cell, abdomen Status: Chronic Comment: Given the totality situation of the seriousness of this I am curious as to the attic fans mechanic's opinion about transferring this patient to a higher level of care for management. (2) Hypocalcemia Status: Acute Comment: The calcium is starting to drift up a little bit which coincides with some decrease in the inflammatory markers from the pancreas. However this is still rather significant and I am concerned for his well-being. We will continue trying to correct this. Consultation Date/Type/Reason Admit Date/Time Jan 09, 2017 at 19:08 Initial Consult Date 01/15/17 Type of Consultation: Endocrinology Reason for Consultation Hypocalcemia; acute pancreatitis; anaplastic large B-cell lymphoma Referring Provider: YAO RAHMAN 24 HR Interval Summary Free Text/Dictation Patient sedated from IV narcotic pain medication. His abdominal pain has increased relatively Constitutional: chills, other Detailed Summary Respiratory: no complaints Gastrointestinal: nausea, pain, vomiting Exam/Review of Systems Vital Signs Vitals Vital Signs Date Time Temp Pulse Resp B/P Pulse Ox O2 Delivery O2 Flow Rate FiO2 01/16/17 12:00 113 01/16/17 09:50 16 01/16/17 08:00 98.8 104/51 98 Nasal Cannula 2.0 01/16/17 06:20 27 Intake and Output 01/15/17 01/15/17 01/16/17 15:00 23:00 07:00 Intake Total 2103 ml 1040 ml 2190 ml Output Total 1550 ml 2000 ml 1300 ml Balance 553 ml -960 ml 890 ml Exam Easily aroused but narcotize Neck: non-tender, supple Respiratory: clear to auscultation, normal air movement Cardiovascular: nl pulses, regular rate and rhythm Gastrointestinal: nl liver, spleen, non-tender, soft Results Result Diagram: 01/16/17 0430 01/16/17 0430 Results 24 hrs Laboratory Tests Test 01/15/17 14:40 01/15/17 18:40 01/15/17 20:30 01/16/17 04:30 Sodium Level 133 L 134 L Potassium Level 3.5 3.4 L Chloride Level 97 97 Carbon Dioxide Level 27 27 Anion Gap 13 13 Blood Urea Nitrogen 4 L 5 L Creatinine 0.54 L 0.53 L Glucose Level 105 94 Calcium Level 4.3 *L 4.1 *L 4.6 *L Phosphorus Level 1.3 L 1.4 L Magnesium Level 1.9 1.6 L Total Bilirubin 0.7 1.0 Direct Bilirubin 0.00 0.30 #H Indirect Bilirubin 0.7 0.7 Aspartate Amino Transf (AST/SGOT) 96 H 80 H Alanine Aminotransferase (ALT/SGPT) 73 H 64 Alkaline Phosphatase 101 95 Total Protein 4.6 L 4.7 L Albumin 2.0 L 2.0 L Globulin 2.60 2.70 Albumin/Globulin Ratio 0.76 0.74 Urine Color YELLOW Urine Clarity CLEAR Urine pH 5.0 Urine Specific [place] 1.012 Urine Ketones TRACE A Urine Nitrite NEGATIVE Urine Bilirubin NEGATIVE Urine Urobilinogen NEGATIVE Urine Leukocyte Esterase NEGATIVE Urine Microscopic RBC 0 Urine Microscopic WBC 1 Urine Bacteria FEW A Urine Hemoglobin 2+ H Urine Glucose NEGATIVE Urine Total Protein NEGATIVE White Blood Count 7.9 Red Blood Count 3.25 L Hemoglobin 9.0 L Hematocrit 28.2 L Mean Corpuscular Volume 86.8 Mean Corpuscular Hemoglobin 27.7 L Mean Corpuscular Hemoglobin Concent 31.9 L Red Cell Distribution Width 16.6 H Platelet Count 139 L Mean Platelet Volume 10.5 H Neutrophils % 85.3 H Lymphocytes % 1.9 L Monocytes % 9.9 Eosinophils % 0.0 Basophils % 0.1 Nucleated Red Blood Cells % 0.0 Neutrophils # 6.7 Lymphocytes # 0.2 L Monocytes # 0.8 Eosinophils # 0.0 Basophils # 0.0 Nucleated Red Blood Cells # 0.0 Prothrombin Time 26.1 H Prothrombin Time Ratio 2.0 INR International Normalized Ratio 2.36 Activated Partial Thromboplast Time 74.5 *H Lactic Acid Level 1.1 Vancomycin Level Trough 8.2 L Test 01/16/17 12:56 Calcium Level 4.9 *L Medications Medications Current Medications Docusate Sodium (Colace) 100 mg Q12H PRN PO CONSTIPATION Last administered on 10:46; Admin Dose 100 MG; Start 01/09/17 at 19:30 Magnesium Hydroxide (Milk Of Mag) 30 ml DAILY PRN PO CONSTIPATION; Start at 19:30 Sodium Biphosphate/ Sodium Phosphate (Fleet Enema) 133 ml DAILY PRN [place] CONSTIPATION; Start 01/09/17 at 19:30 Heparin Sodium (Porcine) 5000 unit 5,000 unit Q12 SC Last administered on 09:43; Admin Dose 5,000 UNIT; Start 01/09/17 at 21:00 Piperacillin Sod/ Tazobactam Sod (Zosyn 3.375gm/ 100 ml (Pmx)) 100 ml @ 200 mls /hr Q6 IVPB Last administered on 01/16/17 13:50; Admin Dose 200 MLS/HR; Start 01/10/17 at 00:00 Vancomycin HCl (Vanco Iv Per Pharmacy) VANCOMYCIN PER PHARMACY NOTE XX ; Start 01/09/17 at 19:30 Nitroglycerin (Nitroglycerin (Sl Tab) 0.4 Mg) 1 tab Q5M PRN SL ANGINA; Start at 19:30 Metoprolol Succinate (Toprol Xl) 25 mg QHS PO Last administered on 01/15/17 20: 05; Admin Dose 25 MG; Start 01/09/17 at 21:00 Miscellaneous [facility] This patient aranda... PRN PRN XX WOUND CARE; Start 01/10/17 at 03:30 Hydromorphone HCl (Dilaudid ATTORNEY LAW CLERK) 1.0 MG/HR CONTINUOUS RATE ... Q4PCA IV Last administered on 01/16/17 12:54; Admin Dose 6 MG; Start 01/10/17 at 15:30 Ondansetron HCl 4 mg 4 mg Q6 IV Last administered on 01/16/17 13:48; Admin Dose 4 MG; Start 01/10/17 at 15:30 Acetaminophen (Ofirmev 1000mg/ 100ml Iv) 100 ml @ 400 mls/hr Q6 IVPB Last administered on 01/16/17 13:50; Admin Dose 400 MLS/HR; Start 01/10/17 at 16:30 IV Flush 10 ml 10 ml PRN PRN IV IV PROTOCOL; Start 01/10/17 at 20:30 Sodium Chloride (NS) 1,000 ml @ 125 mls/hr Q8H IV Last administered on 04:54; Admin Dose 200 MLS/HR; Start 01/11/17 at 09:00 Ergocalciferol (Drisdol) 50,000 unit Sa@16 PO Last administered on 01/14/17 16: 43; Admin Dose 50,000 UNIT; Start 01/14/17 at 16:00 Prednisone (Prednisone) 10 mg DAILY PO Last administered on 01/16/17 09:42; Admin Dose 10 MG; Start 01/15/17 at 09:00 Pantoprazole 40 mg 40 mg DAILY@06 IV Last administered on 01/16/17 05:03; Admin Dose 40 MG; Start 01/16/17 at 06:00 Calcium Chloride/ Sodium Chloride (Ca Chloride/NS) 1,200 ml @ 50 mls/hr Q24H IV Last administered on 01/16/17 09:35; Admin Dose 50 MLS/HR; Start 01/16/17 at 08:30; Stop 01/17/17 at 08:29 Fentanyl 50 mcg 50 mcg Q2H PRN IV PAIN; Start 01/16/17 at 10:00 Vancomycin HCl 1.5 gm/Sodium Chloride 250 ml @ 83.333 mls/ hr Q8H IVPB Last administered on 01/16/17 13:50; Admin Dose 83.333 MLS/HR; Start 01/16/17 at 13:00 Potassium Phosphate/Sodium Chloride (K Phos (Meq)/NS) 254.5455 ml @ 63.636 m... ONCE ONCE IVPB Last administered on 01/16/17 13:49; Admin Dose 63.636 MLS /HR; Start 01/16/17 at 13:00; Stop 01/16/17 at 16:59 YOLY NASCIMENTO MD Jan 16, 2017 14:03
[2017-01-16] MEDS ORDERED: CALCITRIOL 1 MCG INJ IV ONE (16:00)
[2017-01-16] MEDS: FENTAnyl 50 MCG/ML VIAL IV PRN ×2 (18:13→20:17)
--- NOTE | 2017-01-16 19:37 | PN ---
Date/Time of Note Date/Time of Note DATE: 01/16/17 TIME: 19:37 Assessment/Plan Lines/Catheters IV Catheter Type (from Nrs): PICC Line [place] in Place (from Nrs): No Assessment/Plan Assessment/Plan [facility] Progress Note Date of Service: 01/16/2017 Place of service: [facility] ICU Today's Assessment & Plan: Overall stable with pancreatitis. No indication for acute surgical intervention. 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 Very difficult situation with somewhat poor prognosis. Fortunately no indication for acute surgical intervention. No evidence of infected necrosis that would require drain placement or surgical necrosectomy of the pancreas. Would be important to try and avoid major interventions in order to not delay life-prolonging chemotherapeutic intervention. Explain all this to the patient (no family present in the room during my discussions with the patient) and answered all his questions. He appeared to understand and agreed with the plans. With above assessment, I've recommended the followin. Continue aggressive medical management 2. Keep n.p.o. 3. GI consultation appreciated 4. Fluid resuscitation 5. Does not need antimicrobials for the pancreas, but he may need antimicrobial coverage for other reasons 6. Follow-up on biopsy results 7. Multidisciplinary tumor board presentation and discussions 8. Consideration for clinical trials once improved medically 9. Amylase and lipase checks tomorrow with labs Thank you very much for having me involved in the care of this very pleasant patient and wonderful family. If you have any questions, please feel free to contact me at [phone]. Nature of presenting problem: High severity Please note that, given the extensive number of diagnoses or management options , the extensive amount and/or complexity of data needed to be reviewed, and high risk of complications and/or morbidity or mortality, this qualifies as high complexity type of decision-making. Disclaimer: Inadvertent spelling and grammatical errors are likely due to EHR/ dictation software use and do not reflect on the quality of delivered patient care. Also, please note that the electronic time recorded on this node does not necessarily reflect the actual time of the visit. 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 Status post CT-guided left flank subcutaneous nodule biopsy [facility] 01/12/2017. Comorbidities: 1. BMI 40.7 2. Small right pleural effusion with atelectasis and right lung base pneumonia. 3. Large B cell anaplastic lymphoma; status post chemo 1 month prior to presentation 4. Sepsis 5. Hyponatremia 6. Hypokalemia 7. Acute renal injury Subjective: No major events or complaints; no major abd pain and under control with medications; nausea and vomiting without diarrhea; no sob or cp; + flatus; - BM ; minimal to no activity Objective: Vitals: See below I's & O's: See below Exam: GENERAL: On exam, the patient was lying in bed and appeared to be comfortable and in no acute distress. ABDOMEN: Soft, minimal to no tenderness and nondistended. There are no peritoneal signs or guarding. SKIN: Skin appears to be pink and feels warm to touch. NEUROLOGIC: Patient is awake, alert, and follows commands appropriately. Labs: See below Exam/Review of Systems Vital Signs Vitals Vital Signs Date Time Temp Pulse Resp B/P Pulse Ox O2 Delivery O2 Flow Rate FiO2 01/16/17 17:00 110 19 107/63 98 Nasal Cannula 2.0 01/16/17 15:00 100.4 01/16/17 06:20 27 Intake and Output 01/15/17 01/15/17 01/16/17 15:00 23:00 07:00 Intake Total 2103 ml 1040 ml 2190 ml Output Total 1550 ml 2000 ml 1300 ml Balance 553 ml -960 ml 890 ml Results Result Diagram: 01/16/17 0430 01/16/17 0430 LENKA HERNANDEZ M.D. Jan 16, 2017 19:37
[2017-01-16] MEDS: METOPROLOL (XL) 25 MG TAB PO SCH (20:17)
--- NOTE | 2017-01-16 21:22 | CONS ---
Date/Time of Note Date/Time of Note DATE: 01/16/17 TIME: 21:17 Assessment/Plan Assessment/Plan Chief Complaint/Hosp Course ID PROGRESS NOTE CURRENT ABX=> Vanco IV #5 + Zosyn #5 Bactrim po (RX per his HemeOnc)-> dc / 24H INTERVAL SUMMARY * Tmax 100.4; WBC 7/9, stable, no new complaints offered * Progressive left flank and left abd and left leg wound stage III * Seen by hepatobiliary surgery => No ABX needed for pancreatitis * 01/14/17 CT: IMPRESSION: 1. Small right pleural effusion with atelectasis and right lung base pneumonia. * MICRO: RLEXT wound Cx: WOUND CULTURE Preliminary Organism 1 CITROBACTER FREUNDII QUANTITY 3+ Organism 2 ENTEROCOCCUS SPECIES QUANTITY 3+ Organism 3 DIPTHEROIDS QUANTITY 4+ C FREUNDII M.I.C. RX --------- --- CEFOTAXIME S CIPROFLOXACIN <=0.25 S GENTAMICIN <=1 S LEVOFLOXACIN 0.5 S TOBRAMYCIN <=1 S TRIMETHOPRIM/SULFAMETHOXAZOLE >=320 R EXAM GENERAL: 31 yo M obese, A/A/O VSS, no fevers HEENT:Unremarkable NECK: (Supple CHEST: Rise symmetrical without dyspnea on observation ABDOMEN: Soft, EXTREMITIES: Warm, moves extremities SKIN: Tattoos ID ASSESSMENT: 31 yo morbid obese M admit with: 1. Anaplastic B-cell Lymphoma=> Pt's last chemo was a month ago * Leukopenia --> now Leukocytosis-> Started on IV steroids * Presented w/Rx Bactrim 1tab daily (Neutropenic PCP prophy per HemeOn) * CT ABD/PEL/CHEST:(+) multiple areas of nodules likely lymphoma, 2 Sepsis w/worsening lactic acidosis 2/2 PNA => TNS to ICU * CT ABD/PEL/CHEST: PNA 3. Acute pancreatitis -> No evidence of necrosis on CT * No need for ABX for pancreas per surgery 4. Presumed RAMU: likely pre-renal 2/2 vomiting 5. Hyponatremia and Hypokalemia: 2/2 vomiting 6. Enterococcal UTI -> Low colony count 7. Progressive left flank and left abd and left leg wound stage III INVASIVES: RUEXT PICC ABX ALLERGY: EGG/MILK CURRENT ABX=> Vanco IV #5 + Zosyn #5 Bactrim po (RX per his HemeOnc)-> dc 01/15 ID PLAN 1. Continue ABX for sepsis, PNA, left sided decub/wound ? flank/ABD/LLext -> send wound cx pending final 3. Continue current ABX . Problems: Consultation Date/Type/Reason Admit Date/Time Jan 09, 2017 at 19:08 Initial Consult Date 01/10/17 Type of Consultation: ID Referring Provider: YAO RAHMAN Exam/Review of Systems Vital Signs Vitals Vital Signs Date Time Temp Pulse Resp B/P Pulse Ox O2 Delivery O2 Flow Rate FiO2 01/16/17 20:14 118 20 99 Nasal Cannula 2.0 01/16/17 19:00 123/65 01/16/17 15:00 100.4 01/16/17 06:20 27 Intake and Output 01/15/17 01/15/17 01/16/17 15:00 23:00 07:00 Intake Total 2103 ml 1040 ml 2190 ml Output Total 1550 ml 2000 ml 1300 ml Balance 553 ml -960 ml 890 ml Results Result Diagram: 01/16/17 0430 01/16/17 0430 Results 24 hrs Laboratory Tests Test 01/16/17 04:30 01/16/17 12:56 01/16/17 18:33 White Blood Count 7.9 Red Blood Count 3.25 L Hemoglobin 9.0 L Hematocrit 28.2 L Mean Corpuscular Volume 86.8 Mean Corpuscular Hemoglobin 27.7 L Mean Corpuscular Hemoglobin Concent 31.9 L Red Cell Distribution Width 16.6 H Platelet Count 139 L Mean Platelet Volume 10.5 H Neutrophils % 85.3 H Lymphocytes % 1.9 L Monocytes % 9.9 Eosinophils % 0.0 Basophils % 0.1 Nucleated Red Blood Cells % 0.0 Neutrophils # 6.7 Lymphocytes # 0.2 L Monocytes # 0.8 Eosinophils # 0.0 Basophils # 0.0 Nucleated Red Blood Cells # 0.0 Prothrombin Time 26.1 H Prothrombin Time Ratio 2.0 INR International Normalized Ratio 2.36 Activated Partial Thromboplast Time 74.5 *H Sodium Level 134 L Potassium Level 3.4 L Chloride Level 97 Carbon Dioxide Level 27 Anion Gap 13 Blood Urea Nitrogen 5 L Creatinine 0.53 L Glucose Level 94 Lactic Acid Level 1.1 Calcium Level 4.6 *L 4.9 *L 7.0 L Phosphorus Level 1.4 L Magnesium Level 1.6 L Total Bilirubin 1.0 Direct Bilirubin 0.30 #H Indirect Bilirubin 0.7 Aspartate Amino Transf (AST/SGOT) 80 H Alanine Aminotransferase (ALT/SGPT) 64 Alkaline Phosphatase 95 Total Protein 4.7 L Albumin 2.0 L Globulin 2.70 Albumin/Globulin Ratio 0.74 Vancomycin Level Trough 8.2 L Medications Medications Current Medications Docusate Sodium (Colace) 100 mg Q12H PRN PO CONSTIPATION Last administered on 10:46; Admin Dose 100 MG; Start 01/09/17 at 19:30 Magnesium Hydroxide (Milk Of Mag) 30 ml DAILY PRN PO CONSTIPATION; Start at 19:30 Sodium Biphosphate/ Sodium Phosphate (Fleet Enema) 133 ml DAILY PRN [place] CONSTIPATION; Start 01/09/17 at 19:30 Heparin Sodium (Porcine) 5000 unit 5,000 unit Q12 SC Last administered on 09:43; Admin Dose 5,000 UNIT; Start 01/09/17 at 21:00; Status Future Hold Piperacillin Sod/ Tazobactam Sod (Zosyn 3.375gm/ 100 ml (Pmx)) 100 ml @ 200 mls /hr Q6 IVPB Last administered on 01/16/17 18:42; Admin Dose 200 MLS/HR; Start 01/10/17 at 00:00 Vancomycin HCl (Vanco Iv Per Pharmacy) VANCOMYCIN PER PHARMACY NOTE XX ; Start 01/09/17 at 19:30 Nitroglycerin (Nitroglycerin (Sl Tab) 0.4 Mg) 1 tab Q5M PRN SL ANGINA; Start at 19:30 Metoprolol Succinate (Toprol Xl) 25 mg QHS PO Last administered on 01/16/17 20: 17; Admin Dose 25 MG; Start 01/09/17 at 21:00 Miscellaneous Information (Pending Santyl Order For Wound Care) This patient aranda... PRN PRN XX WOUND CARE; Start 01/10/17 at 03:30 Hydromorphone HCl (Dilaudid MASK INSPECTOR) 1.0 MG/HR CONTINUOUS RATE ... Q4PCA IV Last administered on 01/16/17 12:54; Admin Dose 6 MG; Start 01/10/17 at 15:30 Ondansetron HCl 4 mg 4 mg Q6 IV Last administered on 01/16/17 18:41; Admin Dose 4 MG; Start 01/10/17 at 15:30 Acetaminophen (Ofirmev 1000mg/ 100ml Iv) 100 ml @ 400 mls/hr Q6 IVPB Last administered on 01/16/17 18:42; Admin Dose 400 MLS/HR; Start 01/10/17 at 16:30 IV Flush 10 ml 10 ml PRN PRN IV IV PROTOCOL; Start 01/10/17 at 20:30 Sodium Chloride (NS) 1,000 ml @ 125 mls/hr Q8H IV Last administered on 18:58; Admin Dose 125 MLS/HR; Start 01/11/17 at 09:00 Ergocalciferol (Drisdol) 50,000 unit Sa@16 PO Last administered on 01/14/17 16: 43; Admin Dose 50,000 UNIT; Start 01/14/17 at 16:00 Prednisone (Prednisone) 10 mg DAILY PO Last administered on 01/16/17 09:42; Admin Dose 10 MG; Start 01/15/17 at 09:00 Pantoprazole 40 mg 40 mg DAILY@06 IV Last administered on 01/16/17 05:03; Admin Dose 40 MG; Start 01/16/17 at 06:00 Calcium Chloride/ Sodium Chloride (Ca Chloride/NS) 1,200 ml @ 50 mls/hr Q24H IV Last administered on 01/16/17 09:35; Admin Dose 50 MLS/HR; Start 01/16/17 at 08:30; Stop 01/17/17 at 08:29 Fentanyl 50 mcg 50 mcg Q2H PRN IV PAIN Last administered on 01/16/17 20:17; Admin Dose 50 MCG; Start 01/16/17 at 10:00 Vancomycin HCl/ Sodium Chloride (Vancocin/NS) 250 ml @ 83.333 mls/ hr Q8H IVPB Last administered on 01/16/17t 13:50; Admin Dose 83.333 MLS/HR; Start 01/16/17 at 13:00 AARON BELLAMY NP Jan 16, 2017 21:22
[2017-01-17] VITALS (25 sets, daily range): BP systolic 79–148; BP diastolic 17–113; PULSE 100–146; RESP 15–24
[2017-01-17] MEDS: HYDROmorphONE 0.2 MG/ML PCA IV SCH ×4 (01:04→18:15)
[2017-01-17] MEDS: ALBUTEROL/IPRATROPIUM (NEB) 3 ML AMP HHN PRN ×4 (01:26→21:09)
[2017-01-17] MEDS: FENTAnyl 50 MCG/ML VIAL IV PRN ×2 (01:55→05:06)
[2017-01-17] MEDS: SOD CHLORIDE 0.9% 1,000 ML IV SCH ×4 (02:59→18:59)
[2017-01-17] MEDS: ONDANSETRON 4 MG INJ IV SCH ×4 (05:06→23:41)
[2017-01-17] MEDS: PANTOPRAZOLE 40 MG INJ IV SCH (05:06)
[2017-01-17] MEDS: PIPER-TAZO 3.375 GM IV (PMX) 100 ML IVPB SCH ×4 (05:07→23:42)
[2017-01-17] MEDS: ACETAMINOPHEN 1000MG/100ML IV 100 ML IVPB SCH ×4 (05:07→23:41)
[2017-01-17] MEDS: VANCOMYCIN 1.5 GM in SOD CHLORIDE 0.9% 250 ML IVPB SCH ×3 (05:48→20:57)
[2017-01-17 06:47] LABS: CREATININE 0.47 mg/dl (0.61-1.24); POTASSIUM 3.2 mmol/L (3.5-5.1)
[2017-01-17 06:48] LABS: AMYLASE 100 U/L (11-123)
[2017-01-17 07:25] LABS: CALCIUM 19.6 mg/dl (8.4-10.2)
[2017-01-17 07:53] LABS: ABNORMAL IP MESSAGE 1; BASOPHILS % 0.1 % (0.0-2.0); EOSINOPHILS % 0.1 % (0.0-7.0); HEMATOCRIT 24.6 % (42.0-52.0); HEMOGLOBIN 8.1 g/dl (14.0-18.0); LYMPHOCYTES # 0.1 10^3/ul (0.8-2.9); LYMPHOCYTES % 1.1 % (15.0-51.0); MEAN CORPUSCULAR HEMOGLOBIN 28.1 pg (29.0-33.0); MEAN CORPUSCULAR HGB CONC 32.9 g/dl (32.0-37.0); MEAN CORPUSCULAR VOLUME 85.4 fl (82.0-101.0); MEAN PLATELET VOLUME 10.3 fl (7.4-10.4); MONOCYTE # 0.6 10^3/ul (0.3-0.9); MONOCYTES % 7.8 % (0.0-11.0); NEUTROPHIL # 7.3 10^3/ul (1.6-7.5); NEUTROPHILS % 89.8 % (39.0-77.0); PLATELET COUNT 109 10^3/UL (140-415); POSITIVE DIFF @See below; RED BLOOD COUNT 2.88 10^6/ul (4.70-6.10); RED CELL DISTRIBUTION WIDTH 16.4 % (11.5-14.5); WHITE BLOOD COUNT 8.1 10^3/ul (4.8-10.8)
[2017-01-17] MEDS ORDERED: POTASSIUM CHLORIDE 250 ML IVPB ONE (08:00)
--- NOTE | 2017-01-17 08:21 | PN ---
DATE: 01/16/2017 SUBJECTIVE DATA: The patient was transferred from the telemetry floor to intensive care unit due to acute pancreatitis. The patient was placed on IV hydration. Overnight, the patient continued to have abdominal pain. No episodes of hemoptysis, hematemesis, or hematochezia noted. OBJECTIVE DATA: VITAL SIGNS: Blood pressure is 125/59, pulse 128, respiration 18, temperature 98.6. HEENT: Head is normocephalic. NECK: Supple. HEART: Regular rate. LUNGS: Show diminished breath sounds at the bases. ABDOMEN: Soft. Positive tenderness to palpation. EXTREMITIES: Negative for clubbing, cyanosis. No edema. DERMATOLOGIC: Clean. No rashes. MUSCULOSKELETAL: No joint effusion. NEUROLOGIC: No change in exam. MEDICATIONS: Reviewed. LABORATORY AND DIAGNOSTIC DATA: Shows sodium 134, potassium 3.4, chloride 97, BUN 5, creatinine 0.53. White count 7.9, hemoglobin 9.0, crit of 28.2, platelet count is 139. ASSESSMENT AND PLAN: 1. Hyponatremia. Etiology multifactorial secondary to hypokalemia, volume depletion. The patient's sodium levels have been improving. Continue to monitor. 2. Hypokalemia. We will continue to monitor and replete. 3. Mineral bone disorder. The patient is hypocalcemic. Currently on calcium drip. Etiology may be secondary to sequestration due to acute pancreatitis. Continue to monitor. Endocrinology is following. 4. Nonoliguric acute kidney injury. Etiology secondary to hemodynamics. Renal function has improved. Continue to monitor. 5. Acute pancreatitis. The patient is receiving IV fluids. Continue to monitor. 6. Sepsis, secondary to pneumonia. Continue antibiotic regimen. 7. Anaplastic T-cell lymphoma. The patient is being followed by Oncology. Continue current treatment plan. Dictated By: Rios Michelle DO /paulette/meche /Document#: [id number]
--- NOTE | 2017-01-17 08:33 | PN ---
DATE: 01/17/2017 SUBJECTIVE DATA: The patient remains in serious but stable condition. Continues to have abdominal pain. No other events noted. OBJECTIVE DATA: VITAL SIGNS: Blood pressure 128/71, respirations 18, pulse 117, temperature 99.8. HEENT: Head is normocephalic. NECK: Supple. HEART: Regular rate. LUNGS: Diminished breath sounds at the base. ABDOMEN: Soft, nontender to palpation. No rebound or guarding. EXTREMITIES: Negative for clubbing, cyanosis. No edema. DERMATOLOGIC: Clean. No rashes. MUSCULOSKELETAL: No joint effusion. NEUROLOGIC: No change in exam. MEDICATIONS: Reviewed. LABORATORY AND DIAGNOSTIC DATA: Shows sodium 132, potassium 3.2, BUN creatinine 0.47. Calcium is 19.6. CBC is pending. ASSESSMENT AND PLAN: 1. Hypernatremia. Etiology is multifactorial secondary to hypokalemia. Possible underlying SIADH. Will continue to monitor sodium levels. 2. Hypokalemia. Replete potassium chloride. 3. Mineral bone disorder. The patient is markedly hypercalcemic. This is likely due to ongoing calcium drip. The patient is being managed by endocrinology. Will defer. 4. Nonoliguric acute kidney injury. The etiology secondary to hemodynamics. Renal function has improved. Continue current treatment. Supportive care. 5. Acute pancreatitis. Continue aggressive IV hydration. 6. Nausea and vomiting. Continue current medical management. 7. Lymphoma, anaplastic. The patient is being followed by Oncology. 8. Sepsis secondary to urinary tract infection, possible pneumonia. Continue current antibiotic regimen. Dictated By: Rios Michelle DO /paulette/ariadne /Document#: [id number]
[2017-01-17] MEDS: predniSONE 20 MG TAB PO SCH (09:46)
[2017-01-17 11:01] LABS: CREATININE 0.45 mg/dl (0.61-1.24); POTASSIUM 3.9 mmol/L (3.5-5.1)
[2017-01-17 11:10] LABS: CALCIUM 5.7 mg/dl (8.4-10.2)
--- NOTE | 2017-01-17 11:29 | CONS ---
Date/Time of Note Date/Time of Note DATE: 01/17/17 TIME: 11:27 Consult Date/Type/Reason Admit Date/Time Jan 09, 2017 at 19:08 Initial Consult Date 01/15/17 Type of Consultation: Pulmonary Ordering Provider: YAO RAHMAN Subjective Patient comfortable this morning no nausea no vomiting. Objective Vital Signs Date Time Temp Pulse Resp B/P Pulse Ox O2 Delivery O2 Flow Rate FiO2 01/17/17 10:00 137 23 147/96 98 Nasal Cannula 2.0 01/17/17 08:00 98.9 01/16/17 06:20 27 Intake and Output 01/16/17 01/16/17 01/17/17 15:00 23:00 07:00 Intake Total 450 ml 1750 ml 825 ml Output Total 1950 ml 1700 ml 1250 ml Balance -1500 ml 50 ml -425 ml Exam GENERAL: Morbidly obese gentleman comfortable at rest no acute distress VITAL SIGNS: per chart NECK: Supple. No JVD or lymphadenopathy. CARDIAC EXAM: S1, S2. No added sounds or murmurs. CHEST: Diminished air entry both lung bases poor inspiratory effort ABDOMEN: Soft, nontender. No guarding or rebound. EXTREMITIES: No cyanosis, clubbing, edema +1 NEUROLOGIC: Generalized weakness. Results/Medications Result Diagram: 01/17/17 0732 01/17/17 0952 Results 24 hrs Laboratory Tests Test 01/16/17 12:56 01/16/17 18:33 01/17/17 05:30 01/17/17 07:32 Calcium Level 4.9 *L 7.0 L 19.6 #*H Sodium Level 132 L Potassium Level 3.2 L Chloride Level 102 Carbon Dioxide Level 21 Anion Gap 12 Blood Urea Nitrogen 4 L Creatinine 0.47 L Glucose Level 74 Amylase Level 100 Lipase 386 H White Blood Count 8.1 Red Blood Count 2.88 L Hemoglobin 8.1 L Hematocrit 24.6 L Mean Corpuscular Volume 85.4 Mean Corpuscular Hemoglobin 28.1 L Mean Corpuscular Hemoglobin Concent 32.9 Red Cell Distribution Width 16.4 H Platelet Count 109 #L Mean Platelet Volume 10.3 Neutrophils % 89.8 H Lymphocytes % 1.1 L Monocytes % 7.8 Eosinophils % 0.1 Basophils % 0.1 Nucleated Red Blood Cells % 0.0 Neutrophils # 7.3 Lymphocytes # 0.1 L Monocytes # 0.6 Eosinophils # 0.0 Basophils # 0.0 Nucleated Red Blood Cells # 0.0 Test 01/17/17 09:52 Sodium Level 135 Potassium Level 3.9 Chloride Level 102 Carbon Dioxide Level 25 Anion Gap 12 Blood Urea Nitrogen 5 L Creatinine 0.45 L Glucose Level 81 Calcium Level 5.7 #*L Medications Current Medications Docusate Sodium (Colace) 100 mg Q12H PRN PO CONSTIPATION Last administered on 10:46; Admin Dose 100 MG; Start 01/09/17 at 19:30 Magnesium Hydroxide (Milk Of Mag) 30 ml DAILY PRN PO CONSTIPATION; Start at 19:30 Sodium Biphosphate/ Sodium Phosphate (Fleet Enema) 133 ml DAILY PRN [place] CONSTIPATION; Start 01/09/17 at 19:30 Heparin Sodium (Porcine) 5000 unit 5,000 unit Q12 SC Last administered on 09:43; Admin Dose 5,000 UNIT; Start 01/09/17 at 21:00; Status Future Hold Piperacillin Sod/ Tazobactam Sod (Zosyn 3.375gm/ 100 ml (Pmx)) 100 ml @ 200 mls /hr Q6 IVPB Last administered on 01/17/17 05:07; Admin Dose 200 MLS/HR; Start 01/10/17 at 00:00 Vancomycin HCl (Vanco Iv Per Pharmacy) VANCOMYCIN PER PHARMACY NOTE XX ; Start 01/09/17 at 19:30 Nitroglycerin (Nitroglycerin (Sl Tab) 0.4 Mg) 1 tab Q5M PRN SL ANGINA; Start at 19:30 Metoprolol Succinate (Toprol Xl) 25 mg QHS PO Last administered on 01/16/17 20: 17; Admin Dose 25 MG; Start 01/09/17 at 21:00 Miscellaneous Information [facility] This patient aranda... PRN PRN XX WOUND CARE; Start 01/10/17 at 03:30 Hydromorphone HCl (Dilaudid BOULEVARD GLASSWARE REPLACER) 1.0 MG/HR CONTINUOUS RATE ... Q4PCA IV Last administered on 01/17/17 07:07; Admin Dose 6 MG; Start 01/10/17 at 15:30 Ondansetron HCl 4 mg 4 mg Q6 IV Last administered on 01/17/17 05:06; Admin Dose 4 MG; Start 01/10/17 at 15:30 Acetaminophen (Ofirmev 1000mg/ 100ml Iv) 100 ml @ 400 mls/hr Q6 IVPB Last administered on 01/17/17 05:07; Admin Dose 400 MLS/HR; Start 01/10/17 at 16:30 IV Flush 10 ml 10 ml PRN PRN IV IV PROTOCOL; Start 01/10/17 at 20:30 Sodium Chloride (NS) 1,000 ml @ 125 mls/hr Q8H IV Last administered on 02:59; Admin Dose 125 MLS/HR; Start 01/11/17 at 09:00 Ergocalciferol (Drisdol) 50,000 unit Sa@16 PO Last administered on 01/14/17 16: 43; Admin Dose 50,000 UNIT; Start 01/14/17 at 16:00 Prednisone (Prednisone) 10 mg DAILY PO Last administered on 01/17/17 09:46; Admin Dose 10 MG; Start 01/15/17 at 09:00 Pantoprazole (Protonix Iv) 40 mg DAILY@06 IV Last administered on 01/17/17 05: 06; Admin Dose 40 MG; Start 01/16/17 at 06:00 Fentanyl 50 mcg 50 mcg Q2H PRN IV PAIN Last administered on 01/17/17 05:06; Admin Dose 50 MCG; Start 01/16/17 at 10:00 Vancomycin HCl 1.5 gm/Sodium Chloride 250 ml @ 83.333 mls/ hr Q8H IVPB Last administered on 01/17/17 05:48; Admin Dose 83.333 MLS/HR; Start 01/16/17 at 13:00 Potassium Chloride (KCl 40 MEQ/250 ML NS) 250 ml @ 62.5 mls/hr ONCE ONCE IVPB Last administered on 01/17/17 09:47; Admin Dose 62.5 MLS/HR; Start 01/17/17 at 08:00; Stop 01/17/17 at 11:59 Miscellaneous Information (*Rx Drug Level Order Reminder*) VANCO TROUGH @ 2, 000 ON... ONCE ONCE XX ; Start 01/17/17 at 20:00; Stop 01/17/17 at 20:01 Assessment/Plan Chief Complaint/Hosp Course IMP: 1. Severe pancreatitis--clinically improving. Remains n.p.o. per surgical recommendations 2. Severe HypoCa++--2/2 #1 corrected with supplemental calcium 3. UTI 4. Anaplastic B-cell lymphoma 5. RAMU, improved 6. Pulmonary nodular opacities--c/w metastatic lymphoma RECS: 1. Continue fluids per nephrology 2. No evidence of abdominal compartment syndrome 3. DC IV calcium 4. Pain control via BOULEVARD GLASSWARE REPLACER 5. Follow lytes 6. Surgery recommendations advance diet per surgery recommendations Discussed with case management. Patient should be considered for transfer to tertiary care center given complexity of his problems. Problems: BECKA DINH MD, [facility] Jan 17, 2017 11:29
--- NOTE | 2017-01-17 11:43 | CONS ---
Date/Time of Note Date/Time of Note DATE: 01/17/17 TIME: 11:36 Assessment/Plan Assessment/Plan Chief Complaint/Hosp Course ID PROGRESS NOTE CURRENT ABX=> Vanco IV #6 + Zosyn #6 Bactrim po (RX per his HemeOn)-> dc 01/15 * LABS: 01/17/17 0732 01/17/17 0952 24H INTERVAL SUMMARY * Afebrile today -> Benjamin fever 103.0 last night * 01/16 CXR: . Patchy consolidation throughout the right lung, unchanged. * 01/14/17 CT: IMPRESSION: 1. Small right pleural effusion with atelectasis and right lung base pneumonia. * Progressive left flank and left abd and left leg wound stage III * MICRO: RLEXT wound Cx: WOUND CULTURE Preliminary Organism 1 CITROBACTER FREUNDII QUANTITY 3+ Organism 2 ENTEROCOCCUS SPECIES QUANTITY 3+ Organism 3 CORYNEBACTERIUM SPECIES QUANTITY 4+ Organism 4 GRAM NEGATIVE CLEMENTE QUANTITY 3+ EXAM GENERAL: 31 yo M obese HEENT:Unremarkable NECK: (Supple CHEST: Rise symmetrical without dyspnea on observation ABDOMEN: Soft, EXTREMITIES: Warm, moves extremities SKIN: Tattoos ID ASSESSMENT: 31 yo morbid obese M admit with: 1. Anaplastic B-cell Lymphoma=> Pt's last chemo was a month ago * Leukopenia --> now Leukocytosis-> Started on IV steroids * Presented w/Rx Bactrim 1tab daily (Neutropenic PCP prophy per HemeOn) * CT ABD/PEL/CHEST:(+) multiple areas of nodules likely lymphoma, 2 Sepsis w/worsening lactic acidosis 2/2 PNA + Left flank/hip/leg decub => TNS to ICU * CT ABD/PEL/CHEST: PNA * Progressive left flank and left abd and left leg wound stage III 3. Acute pancreatitis -> No evidence of necrosis on CT * No need for ABX for pancreas per surgery 4. Presumed RAMU: likely pre-renal 2/2 vomiting 5. Hyponatremia and Hypokalemia: 2/2 vomiting 6. Enterococcal UTI -> Low colony count 7. Progressive left flank and left abd and left leg wound stage III INVASIVES: RUEXT PICC ABX ALLERGY: EGG/MILK CURRENT ABX=> Vanco IV #6 + Zosyn #6 Bactrim po (RX per his HemeOnc)-> dc 8 ID PLAN 1. Continue ABX for sepsis, PNA, left sided decub/wound ? flank/ABD/LLext -> send wound cx pending final 3. Continue current ABX . Problems: Consultation Date/Type/Reason Admit Date/Time Jan 09, 2017 at 19:08 Initial Consult Date 01/10/17 Type of Consultation: Pulmonary Referring Provider: YAO RAHMAN Exam/Review of Systems Vital Signs Vitals Vital Signs Date Time Temp Pulse Resp B/P Pulse Ox O2 Delivery O2 Flow Rate FiO2 01/17/17 10:00 137 23 147/96 98 Nasal Cannula 2.0 01/17/17 08:00 98.9 01/16/17 06:20 27 Intake and Output 01/16/17 01/16/17 01/17/17 15:00 23:00 07:00 Intake Total 450 ml 1750 ml 825 ml Output Total 1950 ml 1700 ml 1250 ml Balance -1500 ml 50 ml -425 ml Results Result Diagram: 01/17/17 0732 01/17/17 0952 Results 24 hrs Laboratory Tests Test 01/16/17 12:56 01/16/17 18:33 01/17/17 05:30 01/17/17 07:32 Calcium Level 4.9 *L 7.0 L 19.6 #*H Sodium Level 132 L Potassium Level 3.2 L Chloride Level 102 Carbon Dioxide Level 21 Anion Gap 12 Blood Urea Nitrogen 4 L Creatinine 0.47 L Glucose Level 74 Amylase Level 100 Lipase 386 H White Blood Count 8.1 Red Blood Count 2.88 L Hemoglobin 8.1 L Hematocrit 24.6 L Mean Corpuscular Volume 85.4 Mean Corpuscular Hemoglobin 28.1 L Mean Corpuscular Hemoglobin Concent 32.9 Red Cell Distribution Width 16.4 H Platelet Count 109 #L Mean Platelet Volume 10.3 Neutrophils % 89.8 H Lymphocytes % 1.1 L Monocytes % 7.8 Eosinophils % 0.1 Basophils % 0.1 Nucleated Red Blood Cells % 0.0 Neutrophils # 7.3 Lymphocytes # 0.1 L Monocytes # 0.6 Eosinophils # 0.0 Basophils # 0.0 Nucleated Red Blood Cells # 0.0 Test 01/17/17 09:52 Sodium Level 135 Potassium Level 3.9 Chloride Level 102 Carbon Dioxide Level 25 Anion Gap 12 Blood Urea Nitrogen 5 L Creatinine 0.45 L Glucose Level 81 Calcium Level 5.7 #*L Medications Medications Current Medications Docusate Sodium (Colace) 100 mg Q12H PRN PO CONSTIPATION Last administered on 10:46; Admin Dose 100 MG; Start 01/09/17 at 19:30 Magnesium Hydroxide (Milk Of Mag) 30 ml DAILY PRN PO CONSTIPATION; Start at 19:30 Sodium Biphosphate/ Sodium Phosphate (Fleet Enema) 133 ml DAILY PRN RI CONSTIPATION; Start 01/09/17 at 19:30 Heparin Sodium (Porcine) 5000 unit 5,000 unit Q12 SC Last administered on 09:43; Admin Dose 5,000 UNIT; Start 01/09/17 at 21:00; Status Future Hold Piperacillin Sod/ Tazobactam Sod (Zosyn 3.375gm/ 100 ml (Pmx)) 100 ml @ 200 mls /hr Q6 IVPB Last administered on 01/17/17 05:07; Admin Dose 200 MLS/HR; Start 01/10/17 at 00:00 Vancomycin HCl (Vanco Iv Per Pharmacy) VANCOMYCIN PER PHARMACY NOTE XX ; Start 01/09/17 at 19:30 Nitroglycerin (Nitroglycerin (Sl Tab) 0.4 Mg) 1 tab Q5M PRN SL ANGINA; Start at 19:30 Metoprolol Succinate (Toprol Xl) 25 mg QHS PO Last administered on 01/16/17 20: 17; Admin Dose 25 MG; Start 01/09/17 at 21:00 Miscellaneous Information (Pending [facility]) This patient aranda... PRN PRN XX WOUND CARE; Start 01/10/17 at 03:30 Hydromorphone HCl (Dilaudid RUG WEAVER) 1.0 MG/HR CONTINUOUS RATE ... Q4PCA IV Last administered on 01/17/17 07:07; Admin Dose 6 MG; Start 01/10/17 at 15:30 Ondansetron HCl 4 mg 4 mg Q6 IV Last administered on 01/17/17 05:06; Admin Dose 4 MG; Start 01/10/17 at 15:30 Acetaminophen (Ofirmev 1000mg/ 100ml Iv) 100 ml @ 400 mls/hr Q6 IVPB Last administered on 01/17/17 05:07; Admin Dose 400 MLS/HR; Start 01/10/17 at 16:30 IV Flush 10 ml 10 ml PRN PRN IV IV PROTOCOL; Start 01/10/17 at 20:30 Sodium Chloride (NS) 1,000 ml @ 125 mls/hr Q8H IV Last administered on 02:59; Admin Dose 125 MLS/HR; Start 01/11/17 at 09:00 Ergocalciferol (Drisdol) 50,000 unit Sa@16 PO Last administered on 01/14/17 16: 43; Admin Dose 50,000 UNIT; Start 01/14/17 at 16:00 Prednisone (Prednisone) 10 mg DAILY PO Last administered on 01/17/17 09:46; Admin Dose 10 MG; Start 01/15/17 at 09:00 Pantoprazole (Protonix Iv) 40 mg DAILY@06 IV Last administered on 01/17/17 05: 06; Admin Dose 40 MG; Start 01/16/17 at 06:00 Fentanyl 50 mcg 50 mcg Q2H PRN IV PAIN Last administered on 01/17/17 05:06; Admin Dose 50 MCG; Start 01/16/17 at 10:00 Vancomycin HCl 1.5 gm/Sodium Chloride 250 ml @ 83.333 mls/ hr Q8H IVPB Last administered on 01/17/17 05:48; Admin Dose 83.333 MLS/HR; Start 01/16/17 at 13:00 Potassium Chloride (KCl 40 MEQ/250 ML NS) 250 ml @ 62.5 mls/hr ONCE ONCE IVPB Last administered on 01/17/17 09:47; Admin Dose 62.5 MLS/HR; Start 01/17/17 at 08:00; Stop 01/17/17 at 11:59 Miscellaneous Information (*Rx Drug Level Order Reminder*) VANCO TROUGH @ 2, 000 ON... ONCE ONCE XX ; Start 01/17/17 at 20:00; Stop 01/17/17 at 20:01 AARON BELLAMY NP Jan 17, 2017 11:43
--- NOTE | 2017-01-17 11:54 | CONS ---
Date/Time of Note Date/Time of Note DATE: 01/17/17 TIME: 11:51 Assessment/Plan Assessment/Plan Additional Assessment/Plan He is much more comfortable today with a combination of Dilaudid continuous low- dose drip and as needed doses of fentanyl push. Denies nausea vomiting shortness of breath, he is generally uncomfortable. Pain is measured today at 3 compared to yesterday of 03/21, location abdomen without radiation, gnawing discomfort. This is unchanged compared to prior evaluation before he was transferred to the intensive care unit except in severity. Consultation Date/Type/Reason Admit Date/Time Jan 09, 2017 at 19:08 Initial Consult Date 01/10/17 Type of Consultation: Pain management Referring Provider: YAO RAHMAN Exam/Review of Systems Vital Signs Vitals Vital Signs Date Time Temp Pulse Resp B/P Pulse Ox O2 Delivery O2 Flow Rate FiO2 01/17/17 10:00 137 23 147/96 98 Nasal Cannula 2.0 01/17/17 08:00 98.9 01/16/17 06:20 27 Intake and Output 01/16/17 01/16/17 01/17/17 15:00 23:00 07:00 Intake Total 450 ml 1750 ml 825 ml Output Total 1950 ml 1700 ml 1250 ml Balance -1500 ml 50 ml -425 ml Exam Constitutional: distress, frail Eyes: EOMI, PERRL, nl conjunctiva, nl lids, nl sclera Respiratory: No clear to auscultation, No congested cough, No crackles/rales, No diminished breath sounds, No intercostal retraction, No labored breathing, No normal air movement, No other, No respirations, No tactile fremitus, No wheezing Cardiovascular: No S3, No S4, No bruits, No diastolic murmur, No edema, No gallop, No irregular rhythm, No jugular venous distention (JVD), No murmurs/ extra sounds, No nl pulses, No other, No regular rate and rhythm, No rub, No systolic murmur Neurological: No AUTOMATIC DIE CUTTING MACHINE OPERATOR II-XII intact, No DTR's symmetric, No confused, No focal weakness, No lethargic, No nl mental status, No nl speech, No nl strength, No numbness, No other, No reflexes, No unresponsive Results Result Diagram: 01/17/17 0732 01/17/17 0952 Results 24 hrs Laboratory Tests Test 01/16/17 12:56 01/16/17 18:33 01/17/17 05:30 01/17/17 07:32 Calcium Level 4.9 *L 7.0 L 19.6 #*H Sodium Level 132 L Potassium Level 3.2 L Chloride Level 102 Carbon Dioxide Level 21 Anion Gap 12 Blood Urea Nitrogen 4 L Creatinine 0.47 L Glucose Level 74 Amylase Level 100 Lipase 386 H White Blood Count 8.1 Red Blood Count 2.88 L Hemoglobin 8.1 L Hematocrit 24.6 L Mean Corpuscular Volume 85.4 Mean Corpuscular Hemoglobin 28.1 L Mean Corpuscular Hemoglobin Concent 32.9 Red Cell Distribution Width 16.4 H Platelet Count 109 #L Mean Platelet Volume 10.3 Neutrophils % 89.8 H Lymphocytes % 1.1 L Monocytes % 7.8 Eosinophils % 0.1 Basophils % 0.1 Nucleated Red Blood Cells % 0.0 Neutrophils # 7.3 Lymphocytes # 0.1 L Monocytes # 0.6 Eosinophils # 0.0 Basophils # 0.0 Nucleated Red Blood Cells # 0.0 Test 01/17/17 09:52 Sodium Level 135 Potassium Level 3.9 Chloride Level 102 Carbon Dioxide Level 25 Anion Gap 12 Blood Urea Nitrogen 5 L Creatinine 0.45 L Glucose Level 81 Calcium Level 5.7 #*L Medications Medications Current Medications Docusate Sodium (Colace) 100 mg Q12H PRN PO CONSTIPATION Last administered on 10:46; Admin Dose 100 MG; Start 01/09/17 at 19:30 Magnesium Hydroxide (Milk Of Mag) 30 ml DAILY PRN PO CONSTIPATION; Start at 19:30 Sodium Biphosphate/ Sodium Phosphate (Fleet Enema) 133 ml DAILY PRN ME CONSTIPATION; Start 01/09/17 at 19:30 Heparin Sodium (Porcine) 5000 unit 5,000 unit Q12 SC Last administered on 09:43; Admin Dose 5,000 UNIT; Start 01/09/17 at 21:00; Status Future Hold Piperacillin Sod/ Tazobactam Sod (Zosyn 3.375gm/ 100 ml (Pmx)) 100 ml @ 200 mls /hr Q6 IVPB Last administered on 01/17/17 05:07; Admin Dose 200 MLS/HR; Start 01/10/17 at 00:00 Vancomycin HCl (Vanco Iv Per Pharmacy) VANCOMYCIN PER PHARMACY NOTE XX ; Start 01/09/17 at 19:30 Nitroglycerin (Nitroglycerin (Sl Tab) 0.4 Mg) 1 tab Q5M PRN SL ANGINA; Start at 19:30 Metoprolol Succinate (Toprol Xl) 25 mg QHS PO Last administered on 01/16/17 20: 17; Admin Dose 25 MG; Start 01/09/17 at 21:00 Miscellaneous Information ([facility] This patient aranda... PRN PRN XX WOUND CARE; Start 01/10/17 at 03:30 Hydromorphone HCl (Dilaudid PATIENT CARE SPECIALIST) 1.0 MG/HR CONTINUOUS RATE ... Q4PCA IV Last administered on 01/17/17 07:07; Admin Dose 6 MG; Start 01/10/17 at 15:30 Ondansetron HCl 4 mg 4 mg Q6 IV Last administered on 01/17/17 05:06; Admin Dose 4 MG; Start 01/10/17 at 15:30 Acetaminophen (Ofirmev 1000mg/ 100ml Iv) 100 ml @ 400 mls/hr Q6 IVPB Last administered on 01/17/17 05:07; Admin Dose 400 MLS/HR; Start 01/10/17 at 16:30 IV Flush 10 ml 10 ml PRN PRN IV IV PROTOCOL; Start 01/10/17 at 20:30 Sodium Chloride (NS) 1,000 ml @ 125 mls/hr Q8H IV Last administered on 02:59; Admin Dose 125 MLS/HR; Start 01/11/17 at 09:00 Ergocalciferol (Drisdol) 50,000 unit Sa@16 PO Last administered on 01/14/17 16: 43; Admin Dose 50,000 UNIT; Start 01/14/17 at 16:00 Prednisone (Prednisone) 10 mg DAILY PO Last administered on 01/17/17 09:46; Admin Dose 10 MG; Start 01/15/17 at 09:00 Pantoprazole (Protonix Iv) 40 mg DAILY@06 IV Last administered on 01/17/17 05: 06; Admin Dose 40 MG; Start 01/16/17 at 06:00 Fentanyl 50 mcg 50 mcg Q2H PRN IV PAIN Last administered on 01/17/17 05:06; Admin Dose 50 MCG; Start 01/16/17 at 10:00 Vancomycin HCl 1.5 gm/Sodium Chloride 250 ml @ 83.333 mls/ hr Q8H IVPB Last administered on 01/17/17 05:48; Admin Dose 83.333 MLS/HR; Start 01/16/17 at 13:00 Potassium Chloride (KCl 40 MEQ/250 ML NS) 250 ml @ 62.5 mls/hr ONCE ONCE IVPB Last administered on 01/17/17 09:47; Admin Dose 62.5 MLS/HR; Start 01/17/17 at 08:00; Stop 01/17/17 at 11:59 Miscellaneous Information (*Rx Drug Level Order Reminder*) VANCO TROUGH @ 2, 000 ON... ONCE ONCE XX ; Start 01/17/17 at 20:00; Stop 01/17/17 at 20:01 SHELBY WHITE Jan 17, 2017 11:54
[2017-01-17 13:06] LABS: HSV 2 IGG ANTIBODY <0.90 index
--- NOTE | 2017-01-17 13:55 | CONS ---
Date/Time of Note Date/Time of Note DATE: 01/17/17 TIME: 13:49 Assessment/Plan Assessment/Plan Chief Complaint/Hosp Course 31-year-old gentleman with a history of a non-Hodgkin's large B cell anaplastic lymphoma diagnosed roughly 18 months ago. He came into the hospital with abdominal pain but at that time had a low lipase level. At that time his calciums were normal his thyroid function was normal he had on appropriate serum cortisol despite having been on tapering dosages of prednisone as an outpatient. During the course of hospitalization his abdominal symptoms changed and Dr. Rahman reordered his lipase which was markedly elevated. Because of this he is been added the diagnosis of acute pancreatitis. The patient does not consume alcohol and the best of her knowledge has not been on any medications and I do this however he was recently placed on Bactrim. I have contacted [employer] to get the blood test reports. While his serum calcium was 5.3 with a low ionized calcium he had a PTH in the mid 20s. This is an inappropriately low normal PTH in the setting of severe hypocalcemia. This indicates hypo-parathyroidism. The patient informs me there is no prior history of this. Since he has not had neck surgery this leaves us to look at what other type of destructive process of the parathyroids could be going on here. Problems: (1) Hypoparathyroidism, unspecified Status: Acute Comment: The patient reports no prior history of any type of calcium or hormonal disturbance. In addition when he came in his calcium levels were in the normal range given his albumin. He in the setting of acute pancreatitis had an abrupt drop off in his calciums and parathyroid hormone production. This indicates his parathyroid status was in adequate to begin with and the stressor unmask that. Is not entirely clear why this is an he does not have the classical features for idiopathic hypoparathyroidism. I am concerned this may represent some effect of an infiltrative process on the basis of his B-cell lymphoma. I will go ahead and order neck ultrasound and start delineating this. In the meantime therapeutically we will bring him IV calcitriol to try and normalize his serum calciums. Once his serum calciums are closer to normal he can be transferred out of the ICU upstairs. It appears that his pancreatitis is settling (2) Enterococcus UTI Status: Acute Comment: He has been on antibiotics for this. (3) Obesity (BMI 30-39.9) Status: Chronic Comment: Noted no therapeutic intervention at this time. Please note the patient does still have intractable nausea and vomiting (4) Lymphoma, anaplastic large cell, abdomen Status: Chronic Comment: This is actually the major issue coordinating and tying and everything together. Given the complexity of this case I once again pose a question about whether or not he would be best managed at a [facility] or other higher level of care. I am concerned that he might have an infiltrative process of the liver based on the CT scans and now I am concerned about infiltrative process in the neck. I am curious as to the oncologist's opinion about whether or not we should do a CT-guided or ultrasound-guided liver biopsy to further delineate what is going on there. (5) Acute pancreatitis Status: Acute Comment: This is resolving. Qualifiers: Pancreatitis type: unspecified pancreatitis type Acute pancreatitis complication: uninfected necrosis Qualified Code: K85.91 - Acute pancreatitis with uninfected necrosis, unspecified pancreatitis type (6) Abnormal LFTs Status: Acute Comment: See above. Liver biopsy as per the discretion of the oncologist Consultation Date/Type/Reason Admit Date/Time Jan 09, 2017 at 19:08 Initial Consult Date 01/15/17 Type of Consultation: Endocrinology Reason for Consultation Hypocalcemia with inappropriately low PTH level; anaplastic large B-cell lymphoma; acute pancreatitis Referring Provider: YAO RAHMAN 24 HR Interval Summary Free Text/Dictation Patient reports he still has nausea and vomiting. Still notes abdominal pain. Constitutional: chills, febrile (Intermittent fevers chills and sweats) Detailed Summary Respiratory: no complaints Cardiovascular: no complaints Gastrointestinal: pain Exam/Review of Systems Vital Signs Vitals Vital Signs Date Time Temp Pulse Resp B/P Pulse Ox O2 Delivery O2 Flow Rate FiO2 01/17/17 13:00 141 19 119/68 98 Nasal Cannula 2.0 01/17/17 12:00 101.7 01/16/17 06:20 27 Intake and Output 01/16/17 01/16/17 01/17/17 15:00 23:00 07:00 Intake Total 450 ml 1750 ml 825 ml Output Total 1950 ml 1700 ml 1250 ml Balance -1500 ml 50 ml -425 ml Exam Constitutional: alert, oriented Respiratory: clear to auscultation, normal air movement Cardiovascular: nl pulses, regular rate and rhythm Gastrointestinal: nl liver, spleen, non-tender, soft Results Result Diagram: 01/17/17 0732 01/17/17 0952 Results 24 hrs Laboratory Tests Test 01/16/17 18:33 01/17/17 05:30 01/17/17 07:32 01/17/17 09:52 Calcium Level 7.0 L 19.6 #*H 5.7 #*L Sodium Level 132 L 135 Potassium Level 3.2 L 3.9 Chloride Level 102 102 Carbon Dioxide Level 21 25 Anion Gap 12 12 Blood Urea Nitrogen 4 L 5 L Creatinine 0.47 L 0.45 L Glucose Level 74 81 Amylase Level 100 Lipase 386 H White Blood Count 8.1 Red Blood Count 2.88 L Hemoglobin 8.1 L Hematocrit 24.6 L Mean Corpuscular Volume 85.4 Mean Corpuscular Hemoglobin 28.1 L Mean Corpuscular Hemoglobin Concent 32.9 Red Cell Distribution Width 16.4 H Platelet Count 109 #L Mean Platelet Volume 10.3 Neutrophils % 89.8 H Lymphocytes % 1.1 L Monocytes % 7.8 Eosinophils % 0.1 Basophils % 0.1 Nucleated Red Blood Cells % 0.0 Neutrophils # 7.3 Lymphocytes # 0.1 L Monocytes # 0.6 Eosinophils # 0.0 Basophils # 0.0 Nucleated Red Blood Cells # 0.0 Medications Medications Current Medications Docusate Sodium (Colace) 100 mg Q12H PRN PO CONSTIPATION Last administered on 10:46; Admin Dose 100 MG; Start 01/09/17 at 19:30 Magnesium Hydroxide (Milk Of Mag) 30 ml DAILY PRN PO CONSTIPATION; Start at 19:30 Sodium Biphosphate/ Sodium Phosphate (Fleet Enema) 133 ml DAILY PRN [place] CONSTIPATION; Start 01/09/17 at 19:30 Heparin Sodium (Porcine) 5000 unit 5,000 unit Q12 SC Last administered on 09:43; Admin Dose 5,000 UNIT; Start 01/09/17 at 21:00; Status Future Hold Piperacillin Sod/ Tazobactam Sod (Zosyn 3.375gm/ 100 ml (Pmx)) 100 ml @ 200 mls /hr Q6 IVPB Last administered on 01/17/17 12:24; Admin Dose 200 MLS/HR; Start 01/10/17 at 00:00 Vancomycin HCl (Vanco Iv Per Pharmacy) VANCOMYCIN PER PHARMACY NOTE XX ; Start 01/09/17 at 19:30 Nitroglycerin (Nitroglycerin (Sl Tab) 0.4 Mg) 1 tab Q5M PRN SL ANGINA; Start at 19:30 Metoprolol Succinate (Toprol Xl) 25 mg QHS PO Last administered on 01/16/17 20: 17; Admin Dose 25 MG; Start 01/09/17 at 21:00 Miscellaneous Information [facility] This patient aranda... PRN PRN XX WOUND CARE; Start 01/10/17 at 03:30 Hydromorphone HCl (Dilaudid ROUSTABOUT SUPERVISOR) 1.0 MG/HR CONTINUOUS RATE ... Q4PCA IV Last administered on 01/17/17 12:41; Admin Dose 6 MG; Start 01/10/17 at 15:30 Ondansetron HCl 4 mg 4 mg Q6 IV Last administered on 01/17/17 12:23; Admin Dose 4 MG; Start 01/10/17 at 15:30 Acetaminophen (Ofirmev 1000mg/ 100ml Iv) 100 ml @ 400 mls/hr Q6 IVPB Last administered on 01/17/17 12:23; Admin Dose 400 MLS/HR; Start 01/10/17 at 16:30 IV Flush 10 ml 10 ml PRN PRN IV IV PROTOCOL; Start 01/10/17 at 20:30 Sodium Chloride (NS) 1,000 ml @ 125 mls/hr Q8H IV Last administered on 12:42; Admin Dose 125 MLS/HR; Start 01/11/17 at 09:00 Ergocalciferol (Drisdol) 50,000 unit Sa@16 PO Last administered on 01/14/17 16: 43; Admin Dose 50,000 UNIT; Start 01/14/17 at 16:00 Prednisone (Prednisone) 10 mg DAILY PO Last administered on 01/17/17 09:46; Admin Dose 10 MG; Start 01/15/17 at 09:00 Fentanyl 50 mcg 50 mcg Q2H PRN IV PAIN Last administered on 01/17/17 05:06; Admin Dose 50 MCG; Start 01/16/17 at 10:00 Vancomycin HCl/ Sodium Chloride (Vancocin/NS) 250 ml @ 83.333 mls/ hr Q8H IVPB Last administered on 01/17/17t 05:48; Admin Dose 83.333 MLS/HR; Start 01/16/17 at 13:00 Miscellaneous Information (*Rx Drug Level Order Reminder*) VANCO TROUGH @ 2, 000 ON... ONCE ONCE XX ; Start 01/17/17 at 20:00; Stop 01/17/17 at 20:01 Famotidine (Pepcid Iv) 20 mg BID IV ; Start 01/17/17 at 21:00 Calcitriol (Calcitriol) 1 mcg ONCE ONCE IV ; Start 01/17/17 at 14:30; Stop at 14:31 YOLY NASCIMENTO MD Jan 17, 2017 13:55
--- NOTE | 2017-01-17 14:12 | PN ---
Date/Time of Note Date/Time of Note DATE: 01/17/17 TIME: 14:06 Assessment/Plan Lines/Catheters IV Catheter Type (from Nrs): PICC Line Sierra in Place (from Nrsg): No Assessment/Plan Assessment/Plan [facility] Progress Note Date of Service: 01/17/2017 Place of service: [facility] ICU Today's Assessment & Plan: Overall stable with pancreatitis, which seems to be improving. Etiology still not clear. Patient not sure if he has been having flatus and he has not had significant nausea or vomiting. It may be appropriate to start a clear liquid diet if okay by other physicians and providers. Infiltrative mass in the liver could be biopsied if further clarification of diagnosis for lymphoma as needed and if it makes a difference in management. Head of the pancreas does not have an obvious mass, but there is a slight abnormality near the uncinate process. This could further be evaluated by outpatient endoscopic ultrasound if still needed. Low parathyroid hormone level noted in the setting of hypocalcemia. May need to do further imaging of the parathyroid glands. Overall prognosis remains poor. No indication for acute surgical intervention. Discussed with patient and family. Answered all questions. 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 Very difficult situation with somewhat poor prognosis. Fortunately no indication for acute surgical intervention. No evidence of infected necrosis that would require drain placement or surgical necrosectomy of the pancreas. Would be important to try and avoid major interventions in order to not delay life-prolonging chemotherapeutic intervention. With above assessment, I've recommended the followin. Continue aggressive medical management 2. Keep n.p.o. for now, but if evidence of flatus appears, may consider starting clear liquid diet 3. GI consultation appreciated 4. Fluid resuscitation 5. Does not need antimicrobials for the pancreas, but he may need antimicrobial coverage for other reasons 6. If it would make a difference in management, may consider percutaneous biopsy of segment 6 area of abnormality in the liver 7. Multidisciplinary tumor board presentation and discussions 8. Consideration for clinical trials once improved medically 9. Amylase and lipase checks tomorrow with labs Thank you very much for having me involved in the care of this very pleasant patient and wonderful family. If you have any questions, please feel free to contact me at [phone]. Nature of presenting problem: High severity Please note that, given the extensive number of diagnoses or management options , the extensive amount and/or complexity of data needed to be reviewed, and high risk of complications and/or morbidity or mortality, this qualifies as high complexity type of decision-making. Disclaimer: Inadvertent spelling and grammatical errors are likely due to EHR/ dictation software use and do not reflect on the quality of delivered patient care. Also, please note that the electronic time recorded on this node does not necessarily reflect the actual time of the visit. 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 Status post CT-guided left flank subcutaneous nodule biopsy [facility] 01/12/2017. Comorbidities: 1. BMI 40.7 2. Small right pleural effusion with atelectasis and right lung base pneumonia. 3. Large B cell anaplastic lymphoma; status post chemo 1 month prior to presentation 4. Sepsis 5. Hyponatremia 6. Hypokalemia 7. Acute renal injury Subjective: No major events or complaints; no major abd pain and under control with medications; no significant reported nausea or vomiting without diarrhea; no sob or cp; ? flatus; - BM; minimal to no activity Objective: Vitals: See below I's & O's: See below Exam: GENERAL: On exam, the patient was lying in bed and appeared to be comfortable and in no acute distress. ABDOMEN: Soft, minimal to no tenderness and nondistended. There are no peritoneal signs or guarding. SKIN: Skin appears to be pink and feels warm to touch. NEUROLOGIC: Patient is awake, alert, and follows commands appropriately. Labs: See below Exam/Review of Systems Vital Signs Vitals Vital Signs Date Time Temp Pulse Resp B/P Pulse Ox O2 Delivery O2 Flow Rate FiO2 01/17/17 13:00 141 19 119/68 98 Nasal Cannula 2.0 01/17/17 12:00 101.7 01/16/17 06:20 27 Intake and Output 8/7/17 8/7/17 8/8/17 15:00 23:00 07:00 Intake Total 450 ml 1750 ml 825 ml Output Total 1950 ml 1700 ml 1250 ml Balance -1500 ml 50 ml -425 ml Results Result Diagram: 01/17/17 0732 01/17/17 0952 LENKA HERNANDEZ M.D. Jan 17, 2017 14:12
[2017-01-17] MEDS ORDERED: CALCITRIOL 1 MCG INJ IV ONE (14:30)
--- NOTE | 2017-01-17 17:18 | RADRPT ---
PROCEDURE: Ultrasound of the soft tissues of the neck. CLINICAL INDICATION: Hypoparathyroidism. The sella,. TECHNIQUE: High-resolution sonography of the neck was performed in the axial and sagittal planes. COMPARISON: None FINDINGS: There is no fluid collection, lymphadenopathy, or mass. The thyroid is grossly normal. The parathyroid glands are not visualized. IMPRESSION: 1. Normal neck ultrasound. 2. Parathyroid glands are not visualized. RPTAT: QQ .Portillo Heart MD, MD Date Time Electronically viewed and signed by .Portillo Heart MD, MD on 01/17/2017 17:17 .R/
[2017-01-17] MEDS: FAMOTIDINE 20 MG INJ IV SCH (20:03)
[2017-01-17] MEDS: METOPROLOL (XL) 25 MG TAB PO SCH (20:57)
[2017-01-18] VITALS (24 sets, daily range): BP systolic 112–159; BP diastolic 35–120; PULSE 101–139; RESP 10–28
[2017-01-18] MEDS: HYDROmorphONE 0.2 MG/ML PCA IV SCH ×3 (00:28→12:08)
[2017-01-18] MEDS: ALBUTEROL/IPRATROPIUM (NEB) 3 ML AMP HHN PRN ×6 (00:42→21:04)
[2017-01-18] MEDS: SOD CHLORIDE 0.9% 1,000 ML IV SCH ×2 (03:00→10:59)
[2017-01-18] MEDS: FENTAnyl 50 MCG/ML VIAL IV PRN ×6 (03:39→14:58)
[2017-01-18] MEDS: ONDANSETRON 4 MG INJ IV SCH ×3 (05:13→17:38)
[2017-01-18] MEDS: PIPER-TAZO 3.375 GM IV (PMX) 100 ML IVPB SCH ×3 (05:14→17:39)
[2017-01-18] MEDS: ACETAMINOPHEN 1000MG/100ML IV 100 ML IVPB SCH ×3 (05:14→17:38)
[2017-01-18 05:37] LABS: ABNORMAL IP MESSAGE 1; BASOPHIL # 0.1 10^3/ul (0.0-0.1); BASOPHILS % 0.3 % (0.0-2.0); EOSINOPHILS % 0.1 % (0.0-7.0); HEMATOCRIT 25.6 % (42.0-52.0); HEMOGLOBIN 8.4 g/dl (14.0-18.0); LYMPHOCYTES # 0.1 10^3/ul (0.8-2.9); LYMPHOCYTES % 0.6 % (15.0-51.0); MEAN CORPUSCULAR HEMOGLOBIN 28.2 pg (29.0-33.0); MEAN CORPUSCULAR HGB CONC 32.8 g/dl (32.0-37.0); MEAN CORPUSCULAR VOLUME 85.9 fl (82.0-101.0); MEAN PLATELET VOLUME 10.8 fl (7.4-10.4); MONOCYTE # 0.5 10^3/ul (0.3-0.9); MONOCYTES % 3.4 % (0.0-11.0); NEUTROPHIL # 14.7 10^3/ul (1.6-7.5); PLATELET COUNT 141 10^3/UL (140-415); POSITIVE DIFF @See below; RED BLOOD COUNT 2.98 10^6/ul (4.70-6.10); RED CELL DISTRIBUTION WIDTH 16.5 % (11.5-14.5); WHITE BLOOD COUNT 15.5 10^3/ul (4.8-10.8)
[2017-01-18] MEDS: VANCOMYCIN 1.5 GM in SOD CHLORIDE 0.9% 250 ML IVPB SCH (05:58)
[2017-01-18 06:11] LABS: NEUTROPHILS % 94.7 % (39.0-77.0)
[2017-01-18 06:20] LABS: CREATININE 0.44 mg/dl (0.61-1.24); PHOSPHORUS 1.2 mg/dl (2.5-4.9); POTASSIUM 3.8 mmol/L (3.5-5.1)
--- NOTE | 2017-01-18 07:25 | PN ---
DATE: 01/18/2017 SUBJECTIVE DATA: The patient remains serious condition. The patient continues to have abdominal pain, on Dilaudid drip, LOCKSTITCH HEMMER pump. The patient remains on IV fluids. No other events noted. No hemoptysis, hematemesis. The patient continues to have nausea and vomiting. OBJECTIVE DATA: VITAL SIGNS: Blood pressure is 122/57, respirations 16, pulse 120, temperature 98.7. HEENT: Head is normocephalic. NECK: Supple. HEART: Regular rate. LUNGS: Show diminished breath sounds at the base. ABDOMEN: Soft, nontender to palpation. No rebound or guarding. EXTREMITIES: Negative for clubbing, cyanosis. Trace edema. DERMATOLOGIC: Clean. No rashes. MUSCULOSKELETAL: No joint effusion. NEUROLOGIC: No change in exam. MEDICATION: The patient's medications have been reviewed. LABORATORY AND DIAGNOSTIC DATA: Show a sodium 136, potassium 3.9, chloride 98, BUN 8, creatinine 0.44, calcium 6.0, phosphorus 1.2. White count 15.5, hemoglobin 8.4, crit 25.6, platelet count is 141. Imaging studies have been reviewed. Chest x-ray shows patchy consolidation, right lung, unchanged. ASSESSMENT AND PLAN: 1. Hyponatremia. Etiology is multifactorial. Sodium levels have improved. Continue to monitor. 2. Mineral bone disorder. The patient was noted to be hypercalcemic, which has improved after discontinuing calcium drip. The patient remains hypophosphatemic. We will repeat potassium phosphate. Monitor closely. 3. Nonoliguric acute kidney injury. Etiology secondary to hemodynamics. Renal function has improved. Continue to monitor. 4. Acute pancreatitis. Continue IV fluids. Continue pain control. 5. Sepsis secondary to pneumonia. Continue current antibiotic regimen. 6. Anaplastic T-cell lymphoma. The patient is being followed by Oncology. Continue current treatment plan. Dictated By: Rios Michelle DO /paulette/meche /Document#: [id number]
[2017-01-18] MEDS: predniSONE 20 MG TAB PO SCH (08:16)
[2017-01-18] MEDS ORDERED: POTASSIUM PHOSPHATE 15 MM in SOD CHLORIDE 0.9% 250 ML IVPB ONE (09:00)
[2017-01-18] MEDS: FAMOTIDINE 20 MG INJ IV SCH ×2 (09:05→20:31)
[2017-01-18 10:27] LABS: AADO2 Arterial 190.3 mmHg (7.0-24.0); Allen Test ACCEPTAB; Arterial Base Excess 0.4 mmol/L (-3.0-3); Arterial COHb 0.2 % (0.0-3.0); Arterial Fraction of Oxyhgb 96.7 % (93.0-99.0); Arterial HCO3 23.6 mmol/L (22.0-26.0); Arterial Total Hemglobin 8.9 g/dl (12.0-18.0); MODE NEBULIZER
[2017-01-18 10:55] LABS: INR 3.6; PROTIME 36.5 Sec (12.2-14.2); PT RATIO 2.9
[2017-01-18 11:05] LABS: BILIRUBIN,DIRECT 0.8 mg/dl (0.00-0.20); BILIRUBIN,INDIRECT 0.7 mg/dl (0-1.1); BILIRUBIN,TOTAL 1.5 mg/dl (0.2-1.3); TOTAL PROTEIN 4.4 g/dl (6.1-8.1)
[2017-01-18 12:03] LABS: PARTIAL THROMBOPLASTIN TIME 76.9 Sec (25.0-35.0)
[2017-01-18] MEDS: VANCOMYCIN 1.75 GM in NS 500 ML IVPB SCH ×2 (13:19→20:30)
--- NOTE | 2017-01-18 13:39 | RADRPT ---
PROCEDURE: XR Abdomen 1 View. CLINICAL INDICATION: Abdominal pain TECHNIQUE: AP abdomen x-ray. COMPARISON: CT January 14, 2017 FINDINGS: Air is identified scattered in the transverse colon. Likely oral contrast is identified within a no ndilated loop of small bowel in the right lower quadrant. Multiple mildly dilated, air-filled loops of small bowel are identified in the midline of the lower abdomen and measure up to approximately 3 .1 cm in diameter. No organomegaly is identified. Curvilinear density in the midline of the mid pel vis is identified The osseous structures are intact. IMPRESSION: A few air-filled, mildly dilated loops of small bowel in the midline of the lower abdomen. Finding could reflect small bowel ileus or early obstruction. If further characterization is needed repeat CT is recommended. Curvilinear density in the midline of the mid pelvis. Finding could reflect material external to th e patient or potentially the drain. Correlation with physical exam is recommended. If further steven acterization is needed CT should be considered. If further characterization of the abdomen is needed repeat CT should be considered. RPTAT: AA .Familia Montejo MD, Date Time Electronically viewed and signed by .Familia Montejo MD, on 01/18/2017 13:39 .P/
[2017-01-18] MEDS ORDERED: CALCITRIOL 1 MCG INJ IV ONE (14:30)
--- NOTE | 2017-01-18 15:38 | CONS ---
Date/Time of Note Date/Time of Note DATE: 01/18/17 TIME: 15:37 Consult Date/Type/Reason Admit Date/Time Jan 09, 2017 at 19:08 Initial Consult Date 01/15/17 Type of Consultation: Pulmonary Ordering Provider: YAO RAHMAN Subjective More comfortable today. Complaining of increasing abdominal pain. Mild nausea. Currently hemodynamically stable. Objective Vital Signs Date Time Temp Pulse Resp B/P Pulse Ox O2 Delivery O2 Flow Rate FiO2 01/18/17 14:00 24 134/76 98 Nasal Cannula 4.0 01/18/17 13:15 127 01/18/17 12:00 100.7 01/16/17 06:20 27 Intake and Output 01/17/17 01/17/17 01/18/17 14:59 22:59 06:59 Intake Total 1658.4 ml 1491.666 ml Output Total 820 ml 200 ml 750 ml Balance 838.4 ml 1291.666 ml -750 ml Exam PHYSICAL EXAMINATION GENERAL: Well-nourished well-developed gentleman in moderate distress. VITAL SIGNS: see below. HEENT: Pupils equal, round, and reactive to light. CARDIAC: S1, S2, 1/6 systolic ejection murmur CHEST: Diminished air entry bilaterally. ABDOMEN: Mild distention. Tender to palpation. Decreased bowel sounds. EXTREMITIES: No cyanosis, clubbing edema +1 NEUROLOGIC: Generalized weakness Results/Medications Result Diagram: 01/18/17 0515 01/18/17 0515 Results 24 hrs Laboratory Tests Test 01/17/17 20:10 01/18/17 05:15 01/18/17 09:32 01/18/17 10:17 Vancomycin Level Trough 10.5 White Blood Count 15.5 #H Red Blood Count 2.98 L Hemoglobin 8.4 L Hematocrit 25.6 L Mean Corpuscular Volume 85.9 Mean Corpuscular Hemoglobin 28.2 L Mean Corpuscular Hemoglobin Concent 32.8 Red Cell Distribution Width 16.5 H Platelet Count 141 # Mean Platelet Volume 10.8 H Neutrophils % 94.7 H Lymphocytes % 0.6 L Monocytes % 3.4 Eosinophils % 0.1 Basophils % 0.3 Nucleated Red Blood Cells % 0.0 Neutrophils # 14.7 H Lymphocytes # 0.1 L Monocytes # 0.5 Eosinophils # 0.0 Basophils # 0.1 Nucleated Red Blood Cells # 0.0 Sodium Level 136 Potassium Level 3.8 Chloride Level 98 Carbon Dioxide Level 27 Anion Gap 15 Blood Urea Nitrogen 8 Creatinine 0.44 L Glucose Level 91 Calcium Level 6.0 L Ionized Calcium (Measured) 0.9 L Phosphorus Level 1.2 L Magnesium Level 2.0 Blood Gas Specimen Source Blood arterial Arterial Blood Date Drawn 01/18/2017 10:10:17 AM Arterial Blood pH (Temp corrected) 7.480 H Arterial Blood pCO2 (Temp correct) 32.4 L Arterial Blood pO2 (Temp corrected) 151.4 H Arterial Blood HCO3 23.6 Arterial Blood Base Excess 0.4 Arterial Blood Oxygen Saturation 97.9 Miguel Test ACCEPTAB Arterial Blood Gas Puncture Site Left HEEL Arterial Blood Carboxyhemoglobin 0.2 Arterial Blood Methemoglobin 1.0 Blood Gas A-a O2 Differential 190.3 H Oxyhemoglobin Percent 96.7 Total Hemoglobin 8.9 L Blood Gas Temperature 37.0 Blood Gas Modality NEBULIZER FiO2 53.0 Blood Gas Notified Whom JLD Blood Gas Notified Time 01/18/2017 10:27:07 AM Prothrombin Time 36.5 #H Prothrombin Time Ratio 2.9 INR International Normalized Ratio 3.60 Activated Partial Thromboplast Time 76.9 *H Lactic Acid Level 1.5 Total Bilirubin 1.5 H Direct Bilirubin 0.80 H Indirect Bilirubin 0.7 Aspartate Amino Transf (AST/SGOT) 58 H Alanine Aminotransferase (ALT/SGPT) 42 Alkaline Phosphatase 84 Total Protein 4.4 L Albumin 2.0 L Amylase Level 101 Lipase 334 H Medications Current Medications Docusate Sodium (Colace) 100 mg Q12H PRN PO CONSTIPATION Last administered on 10:46; Admin Dose 100 MG; Start 01/09/17 at 19:30 Magnesium Hydroxide (Milk Of Mag) 30 ml DAILY PRN PO CONSTIPATION; Start at 19:30 Sodium Biphosphate/ Sodium Phosphate (Fleet Enema) 133 ml DAILY PRN [place] CONSTIPATION; Start 01/09/17 at 19:30 Heparin Sodium (Porcine) 5000 unit 5,000 unit Q12 SC Last administered on 09:43; Admin Dose 5,000 UNIT; Start 01/09/17 at 21:00; Status Future Hold Piperacillin Sod/ Tazobactam Sod (Zosyn 3.375gm/ 100 ml (Pmx)) 100 ml @ 200 mls /hr Q6 IVPB Last administered on 01/18/17 12:02; Admin Dose 200 MLS/HR; Start 01/10/17 at 00:00 Vancomycin HCl (Vanco Iv Per Pharmacy) VANCOMYCIN PER PHARMACY NOTE XX ; Start 01/09/17 at 19:30 Nitroglycerin (Nitroglycerin (Sl Tab) 0.4 Mg) 1 tab Q5M PRN SL ANGINA; Start at 19:30 Metoprolol Succinate (Toprol Xl) 25 mg QHS PO Last administered on 01/17/17 20: 57; Admin Dose 25 MG; Start 01/09/17 at 21:00 Miscellaneous Information (Pending [facility] Order For Wound Care) This patient aranda... PRN PRN XX WOUND CARE; Start 01/10/17 at 03:30 Hydromorphone HCl (Dilaudid CURB BUILDER) 1.0 MG/HR CONTINUOUS RATE ... Q4PCA IV Last administered on 01/18/17 12:08; Admin Dose 6 MG; Start 01/10/17 at 15:30 Ondansetron HCl 4 mg 4 mg Q6 IV Last administered on 01/18/17 12:02; Admin Dose 4 MG; Start 01/10/17 at 15:30 Acetaminophen (Ofirmev 1000mg/ 100ml Iv) 100 ml @ 400 mls/hr Q6 IVPB Last administered on 01/18/17 12:02; Admin Dose 400 MLS/HR; Start 01/10/17 at 16:30 IV Flush 10 ml 10 ml PRN PRN IV IV PROTOCOL; Start 01/10/17 at 20:30 Sodium Chloride (NS) 1,000 ml @ 125 mls/hr Q8H IV Last administered on 03:00; Admin Dose 125 MLS/HR; Start 01/11/17 at 09:00 Ergocalciferol (Drisdol) 50,000 unit Sa@16 PO Last administered on 01/14/17 16: 43; Admin Dose 50,000 UNIT; Start 01/14/17 at 16:00 Prednisone (Prednisone) 10 mg DAILY PO Last administered on 01/17/17 09:46; Admin Dose 10 MG; Start 01/15/17 at 09:00 Famotidine 20 mg 20 mg BID IV Last administered on 01/18/17 09:05; Admin Dose 20 MG; Start 01/17/17 at 21:00 Vancomycin HCl/ Sodium Chloride (Vancocin/NS) 500 ml @ 125 mls/hr Q8H IVPB Last administered on 01/18/17 13:19; Admin Dose 125 MLS/HR; Start 01/18/17 at 13: 00 Fentanyl (Sublimaze) 100 mcg Q2H PRN IV PAIN Last administered on 01/18/17 14: 58; Admin Dose 100 MCG; Start 01/18/17 at 12:00 Calcitriol (Calcitriol) 1 mcg ONCE ONCE IV ; Start 01/19/17 at 06:00; Stop 03/28 at 06:01 Assessment/Plan Chief Complaint/Hosp Course IMP: 1. Severe pancreatitis--patient clinically worse today increasing pain and discomfort. Concern for worsening acute process. 2. Severe HypoCa++--2/2 #1 corrected with supplemental calcium 3. UTI 4. Anaplastic B-cell lymphoma 5. RAMU, improved 6. Pulmonary nodular opacities--c/w metastatic lymphoma RECS: 1. Continue fluids per nephrology 2. CT abdomen exclude new process given change in condition. 3. DC IV calcium 4. Pain control via CURB BUILDER 5. Follow lytes 6. Surgery recommendations advance diet per surgery recommendations Discussed with primary team. Problems: B[facility] DINH [facility] Jan 18, 2017 15:38
--- NOTE | 2017-01-18 16:00 | RADRPT ---
Vent Rate: 114 bpm RR Interval: 0 msec ID Interval: 112 msec QRS Duration: 86 msec QT Interval: 358 msec QTC Interval: 493 msec P-R-T [place]: 34 - 53 - [address] amp; T wave abnormality, consider anterior ischemia Abnormal ECG Electronically Signed By: Abdullahi Baez [id number]
--- NOTE | 2017-01-18 16:01 | CONS ---
Date/Time of Note Date/Time of Note DATE: 01/18/17 TIME: 15:55 Assessment/Plan Assessment/Plan Chief Complaint/Hosp Course ID PROGRESS NOTE CURRENT ABX=> Vanco IV #7 + Zosyn #7 + Add Levaquin IV Bactrim po (RX per his HemeOnc)-> dc 01/15 24H INTERVAL SUMMARY * A/A/O => WBC elevated > 15.+ -- Spiking fevers + chills -- PICC line RUEXT; left side flank/hip/leg decub = infected * 01/16 CXR: . Patchy consolidation throughout the right lung, unchanged. * 01/14/17 CT: IMPRESSION: 1. Small right pleural effusion with atelectasis and right lung base pneumonia. * Progressive left flank and left abd and left leg wound stage III * WOUND CULTURE Preliminary Organism 1 CITROBACTER FREUNDII QUANTITY 3+ Organism 2 ENTEROCOCCUS SPECIES QUANTITY 3+ Organism 3 CORYNEBACTERIUM SPECIES QUANTITY 4+ Organism 4 STENOTROPHOMONAS MALTOPHILIA QUANTITY 3+ C FREUNDII ENT SPS M.I.C. RX M.I.C. RX --------- --- --------- --- AMPICILLIN <=2 S CEFOTAXIME S CIPROFLOXACIN <=0.25 S GENTAMICIN <=1 S LEVOFLOXACIN 0.5 S PENICILLIN-G 8 S VANCOMYCIN 1 S TOBRAMYCIN <=1 S TRIMETHOPRIM/SULFAMETHOXAZOLE >=320 R CORYN SPS Zone Size RX --------- --- * AMPICILLIN S * CEFAZOLIN S * CEFOTAXIME S * CEFUROXIME S * CIPROFLOXACIN S * CLINDAMYCIN R * ERYTHROMYCIN R * PENICILLIN S * VANCOMYCIN S EXAM GENERAL: 31 yo M obese HEENT:Unremarkable NECK: (Supple CHEST: Rise symmetrical without dyspnea on observation ABDOMEN: Soft, EXTREMITIES: Warm, moves extremities SKIN: Tattoos ID ASSESSMENT: 31 yo morbid obese M admit with: 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 Acute pancreatitis -> No evidence of necrosis on CT * No need for ABX for pancreas per surgery 4. Presumed RAMU: likely pre-renal 2/2 vomiting 5. Hyponatremia and Hypokalemia: 2/2 vomiting 6. Enterococcal UTI -> Low colony count 7. Progressive left flank and left abd and left leg wound stage III INVASIVES: RUEXT PICC ABX ALLERGY: EGG/MILK CURRENT ABX=> Vanco IV #7 + Zosyn #7 + Add Levaquin IV Bactrim po (RX per his HemeOnc)-> dc 01/15 ID PLAN 1. Continue ABX for sepsis 2. Repeat BCx via PICC today -> Spiking fevers >103 on current ABX 3. Add Levaquin to cover STENOTROPHOMONAS MALTOPHILIA + CITROBACTER FREUNDII . Problems: Consultation Date/Type/Reason Admit Date/Time Jan 09, 2017 at 19:08 Initial Consult Date 01/10/17 Type of Consultation: ID Referring Provider: YAO RAHMAN Exam/Review of Systems Vital Signs Vitals Vital Signs Date Time Temp Pulse Resp B/P Pulse Ox O2 Delivery O2 Flow Rate FiO2 01/18/17 14:00 24 134/76 98 Nasal Cannula 4.0 01/18/17 13:15 127 01/18/17 12:00 100.7 01/16/17 06:20 27 Intake and Output 01/17/17 01/17/17 01/18/17 14:59 22:59 06:59 Intake Total 1658.4 ml 1491.666 ml Output Total 820 ml 200 ml 750 ml Balance 838.4 ml 1291.666 ml -750 ml Results Result Diagram: 01/18/17 0515 01/18/17 0515 Results 24 hrs Laboratory Tests Test 01/17/17 20:10 01/18/17 05:15 01/18/17 09:32 01/18/17 10:17 Vancomycin Level Trough 10.5 White Blood Count 15.5 #H Red Blood Count 2.98 L Hemoglobin 8.4 L Hematocrit 25.6 L Mean Corpuscular Volume 85.9 Mean Corpuscular Hemoglobin 28.2 L Mean Corpuscular Hemoglobin Concent 32.8 Red Cell Distribution Width 16.5 H Platelet Count 141 # Mean Platelet Volume 10.8 H Neutrophils % 94.7 H Lymphocytes % 0.6 L Monocytes % 3.4 Eosinophils % 0.1 Basophils % 0.3 Nucleated Red Blood Cells % 0.0 Neutrophils # 14.7 H Lymphocytes # 0.1 L Monocytes # 0.5 Eosinophils # 0.0 Basophils # 0.1 Nucleated Red Blood Cells # 0.0 Sodium Level 136 Potassium Level 3.8 Chloride Level 98 Carbon Dioxide Level 27 Anion Gap 15 Blood Urea Nitrogen 8 Creatinine 0.44 L Glucose Level 91 Calcium Level 6.0 L Ionized Calcium (Measured) 0.9 L Phosphorus Level 1.2 L Magnesium Level 2.0 Blood Gas Specimen Source Blood arterial Arterial Blood Date Drawn 01/18/2017 10:10:17 AM Arterial Blood pH (Temp corrected) 7.480 H Arterial Blood pCO2 (Temp correct) 32.4 L Arterial Blood pO2 (Temp corrected) 151.4 H Arterial Blood HCO3 23.6 Arterial Blood Base Excess 0.4 Arterial Blood Oxygen Saturation 97.9 Miguel Test ACCEPTAB Arterial Blood Gas Puncture Site Left HEEL Arterial Blood Carboxyhemoglobin 0.2 Arterial Blood Methemoglobin 1.0 Blood Gas A-a O2 Differential 190.3 H Oxyhemoglobin Percent 96.7 Total Hemoglobin 8.9 L Blood Gas Temperature 37.0 Blood Gas Modality NEBULIZER FiO2 53.0 Blood Gas Notified Whom JLD Blood Gas Notified Time 01/18/2017 10:27:07 AM Prothrombin Time 36.5 #H Prothrombin Time Ratio 2.9 INR International Normalized Ratio 3.60 Activated Partial Thromboplast Time 76.9 *H Lactic Acid Level 1.5 Total Bilirubin 1.5 H Direct Bilirubin 0.80 H Indirect Bilirubin 0.7 Aspartate Amino Transf (AST/SGOT) 58 H Alanine Aminotransferase (ALT/SGPT) 42 Alkaline Phosphatase 84 Total Protein 4.4 L Albumin 2.0 L Amylase Level 101 Lipase 334 H Medications Medications Current Medications Docusate Sodium (Colace) 100 mg Q12H PRN PO CONSTIPATION Last administered on 10:46; Admin Dose 100 MG; Start 01/09/17 at 19:30 Magnesium Hydroxide (Milk Of Mag) 30 ml DAILY PRN PO CONSTIPATION; Start at 19:30 Sodium Biphosphate/ Sodium Phosphate (Fleet Enema) [address] CONSTIPATION; Start 01/09/17 at 19:30 Heparin Sodium (Porcine) 5000 unit 5,000 unit Q12 SC Last administered on 09:43; Admin Dose 5,000 UNIT; Start 01/09/17 at 21:00; Status Future Hold Piperacillin Sod/ Tazobactam Sod (Zosyn 3.375gm/ 100 ml (Pmx)) 100 ml @ 200 mls /hr Q6 IVPB Last administered on 01/18/17 12:02; Admin Dose 200 MLS/HR; Start 01/10/17 at 00:00 Vancomycin HCl (Vanco Iv Per Pharmacy) VANCOMYCIN PER PHARMACY NOTE XX ; Start 01/09/17 at 19:30 Nitroglycerin (Nitroglycerin (Sl Tab) 0.4 Mg) 1 tab Q5M PRN SL ANGINA; Start at 19:30 Metoprolol Succinate (Toprol Xl) 25 mg QHS PO Last administered on 01/17/17 20: 57; Admin Dose 25 MG; Start 01/09/17 at 21:00 Miscellaneous Information [facility] This patient aranda... PRN PRN XX WOUND CARE; Start 01/10/17 at 03:30 Hydromorphone HCl (Dilaudid BASE REMOVER) 1.0 MG/HR CONTINUOUS RATE ... Q4PCA IV Last administered on 01/18/17 12:08; Admin Dose 6 MG; Start 01/10/17 at 15:30 Ondansetron HCl 4 mg 4 mg Q6 IV Last administered on 01/18/17 12:02; Admin Dose 4 MG; Start 01/10/17 at 15:30 Acetaminophen (Ofirmev 1000mg/ 100ml Iv) 100 ml @ 400 mls/hr Q6 IVPB Last administered on 01/18/17 12:02; Admin Dose 400 MLS/HR; Start 01/10/17 at 16:30 IV Flush 10 ml 10 ml PRN PRN IV IV PROTOCOL; Start 01/10/17 at 20:30 Sodium Chloride (NS) 1,000 ml @ 125 mls/hr Q8H IV Last administered on 03:00; Admin Dose 125 MLS/HR; Start 01/11/17 at 09:00 Ergocalciferol (Drisdol) 50,000 unit Sa@16 PO Last administered on 01/14/17 16: 43; Admin Dose 50,000 UNIT; Start 01/14/17 at 16:00 Prednisone (Prednisone) 10 mg DAILY PO Last administered on 01/17/17 09:46; Admin Dose 10 MG; Start 01/15/17 at 09:00 Famotidine 20 mg 20 mg BID IV Last administered on 01/18/17 09:05; Admin Dose 20 MG; Start 01/17/17 at 21:00 Vancomycin HCl/ Sodium Chloride (Vancocin/NS) 500 ml @ 125 mls/hr Q8H IVPB Last administered on 01/18/17 13:19; Admin Dose 125 MLS/HR; Start 01/18/17 at 13: 00 Fentanyl (Sublimaze) 100 mcg Q2H PRN IV PAIN Last administered on 01/18/17 14: 58; Admin Dose 100 MCG; Start 01/18/17 at 12:00 Calcitriol (Calcitriol) 1 mcg ONCE ONCE IV ; Start 01/19/17 at 06:00; Stop 03/28 at 06:01 AARON BELLAMY NP Jan 18, 2017 16:00
--- NOTE | 2017-01-18 16:09 | RADRPT ---
PROCEDURE: US liver duplex CLINICAL INDICATION: Abdominal pain TECHNIQUE: Multiple real-time longitudinal and transverse images of the liver was acquired utilizi ng a curved array transducer. Duplex images were obtained. Images were reviewed on a [employer] PACS workstation. COMPARISON: Correlation with CT from 01/14/2017 and 01/09/2017. FINDINGS: The liver measures 16.1 cm and demonstrates mildly diffusely increased echogenicity. 2 hypoechoic m asses are seen within the liver measuring 2.9 x 3.8 cm in the inferior right hepatic lobe and 3.3 x 3.7 cm more posteriorly in the right hepatic lobe. There is no biliary ductal dilatation. The gall bladder is grossly unremarkable without evidence of cholelithiasis or gallbladder wall inflammation. There is a small amount of perihepatic ascites. The portal veins and hepatic artery are patent with appropriate fractional flow. No flow was demons trated within the hepatic veins. Velocities as below: Main portal vein: 51 cm/sec Right portal vein: 20 cm/sec Left portal vein: 25 cm/sec Right hepatic vein:no definite flow demonstrated Middle hepatic vein:no definite flow demonstrated Left hepatic vein: no definite flow demonstrated Common hepatic artery:48 cm/sec The pancreas is not well seen. The right kidney measures 15.4 cm without evidence of hydronephrosis , suspicious mass, or calculus. A small right pleural effusion is noted. IMPRESSION: 1. Two suspicious but indeterminate hypoechoic masses seen within the right hepatic lobe measuring up to 3.7 cm in diameter. Recommend multi phase liver protocol CT or MRI for further characterizatio n. 2. No definite flow seen within the hepatic veins however the study was limited secondary to patien t body habitus and technique. Attention on follow-up multi phase cross-sectional liver imaging. 3. Patent portal vein with appropriate hepatopetal flow. Patent hepatic artery. 4. Small perihepatic ascites and small right pleural effusion. RPTAT: JJ .Vel Maciel MD, Date Time Electronically viewed and signed by .Vel Maciel MD, MD on 01/18/2017 16:08 .A/
--- NOTE | 2017-01-18 16:14 | PN ---
Date/Time of Note Date/Time of Note DATE: 01/18/17 TIME: 16:09 Assessment/Plan VTE Prophylaxis VTE Prophylaxis Intervention: SCD's Lines/Catheters IV Catheter Type (from [facility]): PICC Line Central line still needed: Yes Assessment/Plan Assessment/Plan Assessment: * Acute pancreatitis, etiology unclear/resolving * Mild abnormality liver function tests with no evidence of biliary pathology * Anaplastic B-cell lymphoma/aggressive behavior * Sepsis/pneumonia/improved Plan: * Continue monitor lipase and abdominal pain * Once abdominal pain subsides made reintroduce diet * Await Repeat Ct abdomen * case discussed with Dr Hewitt * Further orders will depend on clinical course Subjective 24 Hr Interval Summary Free Text/Dictation * Course reviewed * Patient seen and examined * Still with abdominal pain * Lipase trending downward * Abdomen Xray few air-filled, mildly dilated loops of small bowel in the midline of the lower abdomen. Finding could reflect small bowel ileus or early obstruction. If further characterization is needed repeat CT is recommended. Curvilinear density in the midline of the mid pelvis. Finding could reflect material external to the patient or potentially the drain. Correlation with physical exam is recommended. If further characterization is needed CT should be considered. If further characterization of the abdomen is needed repeat CT should be considered. Exam/Review of Systems Vital Signs Vitals Vital Signs Date Time Temp Pulse Resp B/P Pulse Ox O2 Delivery O2 Flow Rate FiO2 01/18/17 14:00 24 134/76 98 Nasal Cannula 4.0 01/18/17 13:15 127 01/18/17 12:00 100.7 01/16/17 06:20 27 Intake and Output 01/17/17 01/17/17 01/18/17 15:00 23:00 07:00 Intake Total 1783.4 ml 1366.666 ml Output Total 820 ml 200 ml 750 ml Balance 963.4 ml 1166.666 ml -750 ml Exam Constitutional: alert Neck: non-tender, supple Respiratory: diminished breath sounds Cardiovascular: other (tachycardic) Gastrointestinal: distended, soft, tender, No rebound or guarding Musculoskeletal: muscle weakness Extremities: normal pulses, pitting pedal edema Neurological: nl speech, nl strength Skin: nl turgor, No rash or lesions Results Result Diagram: 01/18/17 0515 01/18/17 0515 Results 24 hrs Laboratory Tests Test 01/17/17 20:10 01/18/17 05:15 01/18/17 09:32 01/18/17 10:17 Vancomycin Level Trough 10.5 White Blood Count 15.5 #H Red Blood Count 2.98 L Hemoglobin 8.4 L Hematocrit 25.6 L Mean Corpuscular Volume 85.9 Mean Corpuscular Hemoglobin 28.2 L Mean Corpuscular Hemoglobin Concent 32.8 Red Cell Distribution Width 16.5 H Platelet Count 141 # Mean Platelet Volume 10.8 H Neutrophils % 94.7 H Lymphocytes % 0.6 L Monocytes % 3.4 Eosinophils % 0.1 Basophils % 0.3 Nucleated Red Blood Cells % 0.0 Neutrophils # 14.7 H Lymphocytes # 0.1 L Monocytes # 0.5 Eosinophils # 0.0 Basophils # 0.1 Nucleated Red Blood Cells # 0.0 Sodium Level 136 Potassium Level 3.8 Chloride Level 98 Carbon Dioxide Level 27 Anion Gap 15 Blood Urea Nitrogen 8 Creatinine 0.44 L Glucose Level 91 Calcium Level 6.0 L Ionized Calcium (Measured) 0.9 L Phosphorus Level 1.2 L Magnesium Level 2.0 Blood Gas Specimen Source Blood arterial Arterial Blood Date Drawn 01/18/2017 10:10:17 AM Arterial Blood pH (Temp corrected) 7.480 H Arterial Blood pCO2 (Temp correct) 32.4 L Arterial Blood pO2 (Temp corrected) 151.4 H Arterial Blood HCO3 23.6 Arterial Blood Base Excess 0.4 Arterial Blood Oxygen Saturation 97.9 Miguel Test ACCEPTAB Arterial Blood Gas Puncture Site Left HEEL Arterial Blood Carboxyhemoglobin 0.2 Arterial Blood Methemoglobin 1.0 Blood Gas A-a O2 Differential 190.3 H Oxyhemoglobin Percent 96.7 Total Hemoglobin 8.9 L Blood Gas Temperature 37.0 Blood Gas Modality NEBULIZER FiO2 53.0 Blood Gas Notified Whom JLD Blood Gas Notified Time 01/18/2017 10:27:07 AM Prothrombin Time 36.5 #H Prothrombin Time Ratio 2.9 INR International Normalized Ratio 3.60 Activated Partial Thromboplast Time 76.9 *H Lactic Acid Level 1.5 Total Bilirubin 1.5 H Direct Bilirubin 0.80 H Indirect Bilirubin 0.7 Aspartate Amino Transf (AST/SGOT) 58 H Alanine Aminotransferase (ALT/SGPT) 42 Alkaline Phosphatase 84 Total Protein 4.4 L Albumin 2.0 L Amylase Level 101 Lipase 334 H Medications Medications Current Medications Docusate Sodium (Colace) 100 mg Q12H PRN PO CONSTIPATION Last administered on 10:46; Admin Dose 100 MG; Start 01/09/17 at 19:30 Magnesium Hydroxide (Milk Of Mag) 30 ml DAILY PRN PO CONSTIPATION; Start at 19:30 Sodium Biphosphate/ Sodium Phosphate (Fleet Enema) 133 ml DAILY PRN RI CONSTIPATION; Start 01/09/17 at 19:30 Heparin Sodium (Porcine) 5000 unit 5,000 unit Q12 SC Last administered on 09:43; Admin Dose 5,000 UNIT; Start 01/09/17 at 21:00; Status Future Hold Piperacillin Sod/ Tazobactam Sod (Zosyn 3.375gm/ 100 ml (Pmx)) 100 ml @ 200 mls /hr Q6 IVPB Last administered on 01/18/17 12:02; Admin Dose 200 MLS/HR; Start 01/10/17 at 00:00 Vancomycin HCl (Vanco Iv Per Pharmacy) VANCOMYCIN PER PHARMACY NOTE XX ; Start 01/09/17 at 19:30 Nitroglycerin (Nitroglycerin (Sl Tab) 0.4 Mg) 1 tab Q5M PRN SL ANGINA; Start at 19:30 Metoprolol Succinate (Toprol Xl) 25 mg QHS PO Last administered on 01/17/17 20: 57; Admin Dose 25 MG; Start 01/09/17 at 21:00 Miscellaneous Information (Pending [facility] Order For Wound Care) This patient aranda... PRN PRN XX WOUND CARE; Start 01/10/17 at 03:30 Hydromorphone HCl (Dilaudid STRUCTURAL DRAFTER) 2.0 MG/HR CONTINUOUS RATE ... Q4PCA IV Last administered on 01/18/17 12:08; Admin Dose 6 MG; Start 01/10/17 at 15:30 Ondansetron HCl 4 mg 4 mg Q6 IV Last administered on 01/18/17 12:02; Admin Dose 4 MG; Start 01/10/17 at 15:30 Acetaminophen (Ofirmev 1000mg/ 100ml Iv) 100 ml @ 400 mls/hr Q6 IVPB Last administered on 01/18/17 12:02; Admin Dose 400 MLS/HR; Start 01/10/17 at 16:30 IV Flush 10 ml 10 ml PRN PRN IV IV PROTOCOL; Start 01/10/17 at 20:30 Sodium Chloride (NS) 1,000 ml @ 125 mls/hr Q8H IV Last administered on 03:00; Admin Dose 125 MLS/HR; Start 01/11/17 at 09:00 Ergocalciferol (Drisdol) 50,000 unit Sa@16 PO Last administered on 01/14/17 16: 43; Admin Dose 50,000 UNIT; Start 01/14/17 at 16:00 Prednisone (Prednisone) 10 mg DAILY PO Last administered on 01/17/17 09:46; Admin Dose 10 MG; Start 01/15/17 at 09:00 Famotidine 20 mg 20 mg BID IV Last administered on 01/18/17 09:05; Admin Dose 20 MG; Start 01/17/17 at 21:00 Vancomycin HCl/ Sodium Chloride (Vancocin/NS) 500 ml @ 125 mls/hr Q8H IVPB Last administered on 01/18/17 13:19; Admin Dose 125 MLS/HR; Start 01/18/17 at 13: 00 Calcitriol (Calcitriol) 1 mcg ONCE ONCE IV ; Start 01/19/17 at 06:00; Stop 03/28 at 06:01 Fentanyl 125 mcg 125 mcg Q2H PRN IV PAIN; Start 01/18/17 at 18:00; Status UNV Levofloxacin/ Dextrose (Levaquin 750 Mg/ D5W 150 ml (Pmx)) 150 ml @ 100 mls/hr Q24H IVPB ; Start 01/18/17 at 16:00 SELENA ROY NP Jan 18, 2017 16:14
[2017-01-18 16:31] LABS: LACTIC ACID 1.2 mmol/L (0.5-2.0)
[2017-01-18] MEDS: HYDROmorphONE 50 MG in DEXTROSE 5% 45 ML IV SCH (17:24)
[2017-01-18] MEDS: LEVOFLOXACIN 750MG/D5W (PMX) 150 ML IVPB SCH (17:25)
[2017-01-18] MEDS ORDERED: FENTAnyl 50 MCG/ML VIAL IV PRN (18:00)
--- NOTE | 2017-01-18 18:26 | CONS ---
Date/Time of Note Date/Time of Note DATE: 01/18/17 TIME: 18:23 Assessment/Plan Assessment/Plan Chief Complaint/Hosp Course 31-year-old gentleman with a history of a non-Hodgkin's large B cell anaplastic lymphoma diagnosed roughly 18 months ago. He came into the hospital with abdominal pain but at that time had a low lipase level. At that time his calciums were normal his thyroid function was normal he had on appropriate serum cortisol despite having been on tapering dosages of prednisone as an outpatient. During the course of hospitalization his abdominal symptoms changed and Dr. Rahman reordered his lipase which was markedly elevated. Because of this he is been added the diagnosis of acute pancreatitis. The patient does not consume alcohol and the best of her knowledge has not been on any medications and I do this however he was recently placed on Bactrim. I have contacted [facility] to get the blood test reports. While his serum calcium was 5.3 with a low ionized calcium he had a PTH in the mid 20s. This is an inappropriately low normal PTH in the setting of severe hypocalcemia. This indicates hypo-parathyroidism. The patient informs me there is no prior history of this. Since he has not had neck surgery this leaves us to look at what other type of destructive process of the parathyroids could be going on here. Problems: (1) Hypoparathyroidism, unspecified Status: Acute Comment: patient's calcium is coming up slowly with supplementation using calcitriol. We will continue this till he can get his calcium and to more normalize range. Ultrasound of the neck was unrevealing. This is unlikely to have shown the same thing but it was worth a try. (2) Lymphoma, anaplastic large cell, abdomen Status: Chronic Comment: I am concerned with the patient's abdominal pain that this represents some type of significant issue. Deferring off to the hematology direct sales consultant although again I raised the question about whether or not we should look at a higher level of care (3) Obesity (BMI 30-39.9) Status: Chronic Comment: Noted. Consultation Date/Type/Reason Admit Date/Time Jan 09, 2017 at 19:08 Initial Consult Date 01/15/17 Type of Consultation: Endocrinology Reason for Consultation Hypocalcemia with inappropriately low parathyroid hormone level Referring Provider: YAO RAHMAN 24 HR Interval Summary Free Text/Dictation Patient complains of increasing abdominal pain. No other specific complaints outside of his questions on why is having fevers and drenching sweats Exam/Review of Systems Vital Signs Vitals Vital Signs Date Time Temp Pulse Resp B/P Pulse Ox O2 Delivery O2 Flow Rate FiO2 01/18/17 18:00 126 23 118/55 99 Nasal Cannula 3.0 01/18/17 16:00 100.1 01/16/17 06:20 27 Intake and Output 01/17/17 01/17/17 01/18/17 15:00 23:00 07:00 Intake Total 1783.4 ml 1366.666 ml Output Total 820 ml 200 ml 750 ml Balance 963.4 ml 1166.666 ml -750 ml Exam No changes Results Result Diagram: 01/18/1715 01/18/17 0515 Results 24 hrs Laboratory Tests Test 01/17/17 20:10 01/18/17 05:15 01/18/17 09:32 01/18/17 10:17 Vancomycin Level Trough 10.5 White Blood Count 15.5 #H Red Blood Count 2.98 L Hemoglobin 8.4 L Hematocrit 25.6 L Mean Corpuscular Volume 85.9 Mean Corpuscular Hemoglobin 28.2 L Mean Corpuscular Hemoglobin Concent 32.8 Red Cell Distribution Width 16.5 H Platelet Count 141 # Mean Platelet Volume 10.8 H Neutrophils % 94.7 H Lymphocytes % 0.6 L Monocytes % 3.4 Eosinophils % 0.1 Basophils % 0.3 Nucleated Red Blood Cells % 0.0 Neutrophils # 14.7 H Lymphocytes # 0.1 L Monocytes # 0.5 Eosinophils # 0.0 Basophils # 0.1 Nucleated Red Blood Cells # 0.0 Sodium Level 136 Potassium Level 3.8 Chloride Level 98 Carbon Dioxide Level 27 Anion Gap 15 Blood Urea Nitrogen 8 Creatinine 0.44 L Glucose Level 91 Calcium Level 6.0 L Ionized Calcium (Measured) 0.9 L Phosphorus Level 1.2 L Magnesium Level 2.0 Blood Gas Specimen Source Blood arterial Arterial Blood Date Drawn 01/18/2017 10:10:17 AM Arterial Blood pH (Temp corrected) 7.480 H Arterial Blood pCO2 (Temp correct) 32.4 L Arterial Blood pO2 (Temp corrected) 151.4 H Arterial Blood HCO3 23.6 Arterial Blood Base Excess 0.4 Arterial Blood Oxygen Saturation 97.9 Miguel Test ACCEPTAB Arterial Blood Gas Puncture Site Left HEEL Arterial Blood Carboxyhemoglobin 0.2 Arterial Blood Methemoglobin 1.0 Blood Gas A-a O2 Differential 190.3 H Oxyhemoglobin Percent 96.7 Total Hemoglobin 8.9 L Blood Gas Temperature 37.0 Blood Gas Modality NEBULIZER FiO2 53.0 Blood Gas Notified Whom JLD Blood Gas Notified Time 01/18/2017 10:27:07 AM Prothrombin Time 36.5 #H Prothrombin Time Ratio 2.9 INR International Normalized Ratio 3.60 Activated Partial Thromboplast Time 76.9 *H Lactic Acid Level 1.5 Total Bilirubin 1.5 H Direct Bilirubin 0.80 H Indirect Bilirubin 0.7 Aspartate Amino Transf (AST/SGOT) 58 H Alanine Aminotransferase (ALT/SGPT) 42 Alkaline Phosphatase 84 Total Protein 4.4 L Albumin 2.0 L Amylase Level 101 Lipase 334 H Test 01/18/17 15:58 Lactic Acid Level 1.2 Ammonia 14 Medications Medications Current Medications Docusate Sodium (Colace) 100 mg Q12H PRN PO CONSTIPATION Last administered on 10:46; Admin Dose 100 MG; Start 01/09/17 at 19:30 Magnesium Hydroxide (Milk Of Mag) 30 ml DAILY PRN PO CONSTIPATION; Start at 19:30 Sodium Biphosphate/ Sodium Phosphate (Fleet Enema) 133 ml DAILY PRN [place] CONSTIPATION; Start 01/09/17 at 19:30 Heparin Sodium (Porcine) 5000 unit 5,000 unit Q12 SC Last administered on 09:43; Admin Dose 5,000 UNIT; Start 01/09/17 at 21:00; Status Future Hold Piperacillin Sod/ Tazobactam Sod (Zosyn 3.375gm/ 100 ml (Pmx)) 100 ml @ 200 mls /hr Q6 IVPB Last administered on 01/18/17 17:39; Admin Dose 200 MLS/HR; Start 01/10/17 at 00:00 Vancomycin HCl (Vanco Iv Per Pharmacy) VANCOMYCIN PER PHARMACY NOTE XX ; Start 01/09/17 at 19:30 Nitroglycerin (Nitroglycerin (Sl Tab) 0.4 Mg) 1 tab Q5M PRN SL ANGINA; Start at 19:30 Metoprolol Succinate (Toprol Xl) 25 mg QHS PO Last administered on 01/17/17 20: 57; Admin Dose 25 MG; Start 01/09/17 at 21:00 Miscellaneous Information (Pending Santyl Order For Wound Care) This patient aranda... PRN PRN XX WOUND CARE; Start 01/10/17 at 03:30 Ondansetron HCl 4 mg 4 mg Q6 IV Last administered on 01/18/17 17:38; Admin Dose 4 MG; Start 01/10/17 at 15:30 Acetaminophen (Ofirmev 1000mg/ 100ml Iv) 100 ml @ 400 mls/hr Q6 IVPB Last administered on 01/18/17 17:38; Admin Dose 400 MLS/HR; Start 01/10/17 at 16:30 IV Flush 10 ml 10 ml PRN PRN IV IV PROTOCOL; Start 01/10/17 at 20:30 Sodium Chloride (NS) 1,000 ml @ 125 mls/hr Q8H IV Last administered on 03:00; Admin Dose 125 MLS/HR; Start 01/11/17 at 09:00 Ergocalciferol (Drisdol) 50,000 unit Sa@16 PO Last administered on 01/14/17 16: 43; Admin Dose 50,000 UNIT; Start 01/14/17 at 16:00 Prednisone (Prednisone) 10 mg DAILY PO Last administered on 01/17/17 09:46; Admin Dose 10 MG; Start 01/15/17 at 09:00 Famotidine 20 mg 20 mg BID IV Last administered on 01/18/17 09:05; Admin Dose 20 MG; Start 01/17/17 at 21:00 Vancomycin HCl/ Sodium Chloride (Vancocin/NS) 500 ml @ 125 mls/hr Q8H IVPB Last administered on 01/18/17 13:19; Admin Dose 125 MLS/HR; Start 01/18/17 at 13: 00 Calcitriol 1 mcg 1 mcg ONCE ONCE IV ; Start 01/19/17 at 06:00; Stop 01/19/17 at 06:01 Levofloxacin/ Dextrose (Levaquin 750 Mg/ D5W 150 ml (Pmx)) 150 ml @ 100 mls/hr Q24H IVPB Last administered on 01/18/17 17:25; Admin Dose 100 MLS/HR; Start 01/18/17 at 16:00 Fentanyl (Sublimaze) 125 mcg Q2H PRN IV PAIN; Start 01/18/17 at 17:00 YOLY NASCIMENTO MD Jan 18, 2017 18:26
--- NOTE | 2017-01-18 18:36 | PN ---
Date/Time of Note Date/Time of Note DATE: 01/18/17 TIME: 18:34 Assessment/Plan Lines/Catheters IV Catheter Type (from Nrsg): PICC Line Assessment/Plan Assessment/Plan [facility] Progress Note Date of Service: 01/18/2017 Place of service: [facility] ICU Today's Assessment & Plan: Overall stable with pancreatitis, which seems to be mild on labs, but had major pain issues today with unclear etiology. Agree with CT. Overall prognosis remains poor. No indication for acute surgical intervention. Discussed with patient and family. Answered all questions. 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 Very difficult situation with somewhat poor prognosis. Fortunately no indication for acute surgical intervention. No evidence of infected necrosis that would require drain placement or surgical necrosectomy of the pancreas. Would be important to try and avoid major interventions in order to not delay life-prolonging chemotherapeutic intervention. With above assessment, I've recommended the followin. Continue aggressive medical management 2. Keep n.p.o. for now, but if evidence of flatus appears, may consider starting clear liquid diet 3. GI consultation appreciated 4. Fluid resuscitation 5. Does not need antimicrobials for the pancreas, but he may need antimicrobial coverage for other reasons 6. If it would make a difference in management, may consider percutaneous biopsy of segment 6 area of abnormality in the liver 7. Multidisciplinary tumor board presentation and discussions 8. Consideration for clinical trials once improved medically 9. Amylase and lipase checks tomorrow with labs 10. Agree with CT angio Thank you very much for having me involved in the care of this very pleasant patient and wonderful family. If you have any questions, please feel free to contact me at [phone]. Nature of presenting problem: High severity Please note that, given the extensive number of diagnoses or management options , the extensive amount and/or complexity of data needed to be reviewed, and high risk of complications and/or morbidity or mortality, this qualifies as high complexity type of decision-making. Disclaimer: Inadvertent spelling and grammatical errors are likely due to EHR/ dictation software use and do not reflect on the quality of delivered patient care. Also, please note that the electronic time recorded on this node does not necessarily reflect the actual time of the visit. 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 Status post CT-guided left flank subcutaneous nodule biopsy [facility] 01/12/2017. Comorbidities: 1. BMI 40.7 2. Small right pleural effusion with atelectasis and right lung base pneumonia. 3. Large B cell anaplastic lymphoma; status post chemo 1 month prior to presentation 4. Sepsis 5. Hyponatremia 6. Hypokalemia 7. Acute renal injury Subjective: No major events or complaints other than sig pain earlier today; no major current abd pain and under control with medications; no significant reported nausea or vomiting without diarrhea; no sob or cp; ? flatus; - BM; minimal to no activity Objective: Vitals: See below I's & O's: See below Exam: GENERAL: On exam, the patient was lying in bed and appeared to be comfortable and in no acute distress. ABDOMEN: Soft, minimal to no tenderness and nondistended. There are no peritoneal signs or guarding. SKIN: Skin appears to be pink and feels warm to touch. NEUROLOGIC: Patient is awake, alert, and follows commands appropriately. Labs: See below Exam/Review of Systems Vital Signs Vitals Vital Signs Date Time Temp Pulse Resp B/P Pulse Ox O2 Delivery O2 Flow Rate FiO2 01/18/17 18:00 126 23 118/55 99 Nasal Cannula 3.0 01/18/17 16:00 100.1 01/16/17 06:20 27 Intake and Output 01/17/17 01/17/17 01/18/17 15:00 23:00 07:00 Intake Total 1783.4 ml 1366.666 ml Output Total 820 ml 200 ml 750 ml Balance 963.4 ml 1166.666 ml -750 ml Results Result Diagram: 01/18/17 0515 01/18/17 0515 LENKA HERNANDEZ M.D. Jan 18, 2017 18:36
--- NOTE | 2017-01-18 18:56 | PN ---
Date/Time of Note Date/Time of Note DATE: 01/18/17 TIME: 18:47 Assessment/Plan VTE Prophylaxis VTE Prophylaxis Intervention: LMWH Lines/Catheters IV Catheter Type (from Nrsg): PICC Line Central line still needed: No Urinary Cath still in place: No Assessment/Plan Chief Complaint/Hosp Course 31 yo male with anaplastic B Cell lymphoma who presented with abdominal pain, found to have pancreatitis and severe hypocalcemia, sepsis GI: Pancreatitis of unclear etiology: - Continue fluids, renal function stable, belly size increasing - Should be resolving. Continued worsening pain suggests alternative dx, complication. Needs CT A/P - pending ENDO: Hypocalcemia: - Continue calcitriol, ca glu as needed per endocrine HEME: Lymphoma: - Further management when stable ID: - Vanco/levaquin/zosyn per ID. Unclear what bacterial infection we are addressing with this as markedly febrile despite abx Unclear need for prednisone Further management pending imaging Problems: Subjective 24 Hr Interval Summary Free Text/Dictation Continues to have a great deal of abdominal pain, radiating to the back despite [employer] and IV fentanyl Abd XR unrevealing, CT A/P pending Exam/Review of Systems Vital Signs Vitals Vital Signs Date Time Temp Pulse Resp B/P Pulse Ox O2 Delivery O2 Flow Rate FiO2 01/18/17 18:00 126 23 118/55 99 Nasal Cannula 3.0 01/18/17 16:00 100.1 01/16/17 06:20 27 Intake and Output 01/17/17 01/17/17 01/18/17 15:00 23:00 07:00 Intake Total 1783.4 ml 1366.666 ml Output Total 820 ml 200 ml 750 ml Balance 963.4 ml 1166.666 ml -750 ml Exam Continue fevers Obese male Appears uncomfortable Tachy, regular Abdomen distended, tender in epigastrium Malignant skin lesions to arms noted No edema Lipase 300 Ca 6 Wbc rising 15 Creat stable 0.4 Results Result Diagram: 01/18/1715 01/18/17 0515 Results 24 hrs Laboratory Tests Test 01/17/17 20:10 01/18/17 05:15 01/18/17 09:32 01/18/17 10:17 Vancomycin Level Trough 10.5 White Blood Count 15.5 #H Red Blood Count 2.98 L Hemoglobin 8.4 L Hematocrit 25.6 L Mean Corpuscular Volume 85.9 Mean Corpuscular Hemoglobin 28.2 L Mean Corpuscular Hemoglobin Concent 32.8 Red Cell Distribution Width 16.5 H Platelet Count 141 # Mean Platelet Volume 10.8 H Neutrophils % 94.7 H Lymphocytes % 0.6 L Monocytes % 3.4 Eosinophils % 0.1 Basophils % 0.3 Nucleated Red Blood Cells % 0.0 Neutrophils # 14.7 H Lymphocytes # 0.1 L Monocytes # 0.5 Eosinophils # 0.0 Basophils # 0.1 Nucleated Red Blood Cells # 0.0 Sodium Level 136 Potassium Level 3.8 Chloride Level 98 Carbon Dioxide Level 27 Anion Gap 15 Blood Urea Nitrogen 8 Creatinine 0.44 L Glucose Level 91 Calcium Level 6.0 L Ionized Calcium (Measured) 0.9 L Phosphorus Level 1.2 L Magnesium Level 2.0 Blood Gas Specimen Source Blood arterial Arterial Blood Date Drawn 01/18/2017 10:10:17 AM Arterial Blood pH (Temp corrected) 7.480 H Arterial Blood pCO2 (Temp correct) 32.4 L Arterial Blood pO2 (Temp corrected) 151.4 H Arterial Blood HCO3 23.6 Arterial Blood Base Excess 0.4 Arterial Blood Oxygen Saturation 97.9 Miguel Test ACCEPTAB Arterial Blood Gas Puncture Site Left HEEL Arterial Blood Carboxyhemoglobin 0.2 Arterial Blood Methemoglobin 1.0 Blood Gas A-a O2 Differential 190.3 H Oxyhemoglobin Percent 96.7 Total Hemoglobin 8.9 L Blood Gas Temperature 37.0 Blood Gas Modality NEBULIZER FiO2 53.0 Blood Gas Notified Whom JLD Blood Gas Notified Time 01/18/2017 10:27:07 AM Prothrombin Time 36.5 #H Prothrombin Time Ratio 2.9 INR International Normalized Ratio 3.60 Activated Partial Thromboplast Time 76.9 *H Lactic Acid Level 1.5 Total Bilirubin 1.5 H Direct Bilirubin 0.80 H Indirect Bilirubin 0.7 Aspartate Amino Transf (AST/SGOT) 58 H Alanine Aminotransferase (ALT/SGPT) 42 Alkaline Phosphatase 84 Total Protein 4.4 L Albumin 2.0 L Amylase Level 101 Lipase 334 H Test 01/18/17 15:58 Lactic Acid Level 1.2 Ammonia 14 Medications Medications Current Medications Docusate Sodium (Colace) 100 mg Q12H PRN PO CONSTIPATION Last administered on t 10:46; Admin Dose 100 MG; Start 01/09/17 at 19:30 Magnesium Hydroxide (Milk Of Mag) 30 ml DAILY PRN PO CONSTIPATION; Start at 19:30 Sodium Biphosphate/ Sodium Phosphate (Fleet Enema) 133 ml DAILY PRN [place] CONSTIPATION; Start 01/09/17 at 19:30 Heparin Sodium (Porcine) 5000 unit 5,000 unit Q12 SC Last administered on 09:43; Admin Dose 5,000 UNIT; Start 01/09/17 at 21:00; Status Future Hold Piperacillin Sod/ Tazobactam Sod (Zosyn 3.375gm/ 100 ml (Pmx)) 100 ml @ 200 mls /hr Q6 IVPB Last administered on 01/18/17 17:39; Admin Dose 200 MLS/HR; Start 01/10/17 at 00:00 Vancomycin HCl (Vanco Iv Per Pharmacy) VANCOMYCIN PER PHARMACY NOTE XX ; Start 01/09/17 at 19:30 Nitroglycerin (Nitroglycerin (Sl Tab) 0.4 Mg) 1 tab Q5M PRN SL ANGINA; Start at 19:30 Metoprolol Succinate (Toprol Xl) 25 mg QHS PO Last administered on 01/17/17 20: 57; Admin Dose 25 MG; Start 01/09/17 at 21:00 Miscellaneous Information (Pending [facility] Order For Wound Care) This patient aranda... PRN PRN XX WOUND CARE; Start 01/10/17 at 03:30 Ondansetron HCl 4 mg 4 mg Q6 IV Last administered on 01/18/17 17:38; Admin Dose 4 MG; Start 01/10/17 at 15:30 Acetaminophen (Ofirmev 1000mg/ 100ml Iv) 100 ml @ 400 mls/hr Q6 IVPB Last administered on 01/18/17 17:38; Admin Dose 400 MLS/HR; Start 01/10/17 at 16:30 IV Flush 10 ml 10 ml PRN PRN IV IV PROTOCOL; Start 01/10/17 at 20:30 Sodium Chloride (NS) 1,000 ml @ 125 mls/hr Q8H IV Last administered on 03:00; Admin Dose 125 MLS/HR; Start 01/11/17 at 09:00 Ergocalciferol (Drisdol) 50,000 unit Sa@16 PO Last administered on 01/14/17 16: 43; Admin Dose 50,000 UNIT; Start 01/14/17 at 16:00 Prednisone (Prednisone) 10 mg DAILY PO Last administered on 01/17/17 09:46; Admin Dose 10 MG; Start 01/15/17 at 09:00 Famotidine 20 mg 20 mg BID IV Last administered on 01/18/17 09:05; Admin Dose 20 MG; Start 01/17/17 at 21:00 Vancomycin HCl/ Sodium Chloride (Vancocin/NS) 500 ml @ 125 mls/hr Q8H IVPB Last administered on 01/18/17 13:19; Admin Dose 125 MLS/HR; Start 01/18/17 at 13: 00 Calcitriol 1 mcg 1 mcg ONCE ONCE IV ; Start 01/19/17 at 06:00; Stop 01/19/17 at 06:01 Levofloxacin/ Dextrose (Levaquin 750 Mg/ D5W 150 ml (Pmx)) 150 ml @ 100 mls/hr Q24H IVPB Last administered on 01/18/17 17:25; Admin Dose 100 MLS/HR; Start 01/18/17 at 16:00 Fentanyl (Sublimaze) 125 mcg Q2H PRN IV PAIN; Start 01/18/17 at 17:00 ÁLVARO GRIGGS MD Jan 18, 2017 18:56
[2017-01-18] MEDS: METOPROLOL (XL) 25 MG TAB PO SCH (20:30)
[2017-01-19] VITALS (35 sets, daily range): BP systolic 110–161; BP diastolic 54–110; PULSE 107–142; RESP 13–33
[2017-01-19] MEDS: PIPER-TAZO 3.375 GM IV (PMX) 100 ML IVPB SCH ×4 (00:07→18:48)
[2017-01-19] MEDS: ACETAMINOPHEN 1000MG/100ML IV 100 ML IVPB SCH ×5 (00:07→18:48)
[2017-01-19] MEDS: ONDANSETRON 4 MG INJ IV SCH ×4 (00:07→18:49)
[2017-01-19] MEDS: SOD CHLORIDE 0.9% 1,000 ML IV SCH ×4 (00:38→22:42)
[2017-01-19] MEDS: FENTAnyl 50 MCG/ML VIAL IV PRN ×9 (01:49→22:42)
[2017-01-19] MEDS: ALBUTEROL/IPRATROPIUM (NEB) 3 ML AMP HHN PRN ×2 (01:50→16:17)
[2017-01-19] MEDS: VANCOMYCIN 1.75 GM in NS 500 ML IVPB SCH (05:35)
[2017-01-19] MEDS ORDERED: CALCITRIOL 1 MCG INJ IV ONE (06:00)
[2017-01-19 06:25] LABS: CREATININE 0.49 mg/dl (0.61-1.24); PHOSPHORUS 1.1 mg/dl (2.5-4.9); POTASSIUM 3.2 mmol/L (3.5-5.1)
[2017-01-19] MEDS: HYDROmorphONE 50 MG in DEXTROSE 5% 45 ML IV SCH (06:59)
[2017-01-19] MEDS: predniSONE 20 MG TAB PO SCH (07:50)
[2017-01-19] MEDS: FAMOTIDINE 20 MG INJ IV SCH ×2 (07:50→21:30)
--- NOTE | 2017-01-19 07:57 | RADRPT ---
PROCEDURE: XR Chest. CLINICAL INDICATION: Difficulty breathing, shortness of breath TECHNIQUE: Single frontal view of the chest was obtained COMPARISON: 01/16/2017 FINDINGS: The cardiac silhouette is unremarkable. A right PICC line is again seen in satisfactory position. There is persistent patchy consolidation in the right upper lower lobe. Overall findings are unchan ged when compared to the previous study. The left lung is grossly clear. The pleural spaces are grossly clear. The bones and soft tissue show no acute change. IMPRESSION: 1. Stable right PICC line. 2. Persistent patchy areas of consolidation in the right upper and lower lobes. Overall, findings are not significantly changed when compared to the previous study. RPTAT:AAJJ Physician Alfred Date Time Electronically viewed and signed by Baron Jackson Physician on 01/19/2017 07:57 /
[2017-01-19] MEDS ORDERED: POTASSIUM PHOSPHATE 20 MEQ in SOD CHLORIDE 0.9% 250 ML IVPB ONE (08:00)
--- NOTE | 2017-01-19 08:08 | PN ---
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 The patient continues to be febrile. No other events noted. OBJECTIVE DATA: VITAL SIGNS: Blood pressure 124/60, respirations 18, pulse 126, temperature 100. HEENT: Head is normocephalic. NECK: Supple. HEART: Regular rate. LUNGS: Show diminished breath sounds at the base. ABDOMEN: Soft, nontender to palpation. No rebound or guarding. EXTREMITIES: Negative for clubbing, cyanosis. No edema. DERMATOLOGIC: Clean. No rashes. MUSCULOSKELETAL: Positive wounds. NEUROLOGIC: No change in exam. MEDICATIONS: Reviewed. LABORATORY AND DIAGNOSTIC DATA: Show sodium 137, potassium 3.2, BUN 7, creatinine 0.49. White count is 15.5, hemoglobin 8.4, crit 25.6, platelet count is 141. The patient's cultures have been reviewed. Abdominal x-ray was reviewed, showed dilated loops of small bowel. Liver ultrasound shows hypoechoic masses. ASSESSMENT AND PLAN: 1. Hyponatremia, etiology multifactorial, now resolved. Continue to monitor. 2. Hypokalemia, hypophosphatemia. Etiology is likely secondary to total body deficit and aggressive intravenous hydration. We will replete with potassium phosphate and potassium chloride. 3. Mineral bone disorder. The patient is hypocalcemic. We will continue current medical management per Endocrinology. 4. Acute pancreatitis. Continue aggressive intravenous fluids. Continue pain control. 5. Nonoliguric acute kidney injury. Etiology secondary to hemodynamics. Renal function has improved. Continue to monitor. 6. Sepsis secondary to pneumonia. Continue current antibiotic regimen. 7. Anaplastic T-cell lymphoma. The patient is being followed by Oncology. Continue current treatment plan. Dictated By: Rios Michelle DO /paulette/meche /Document#: [id number]
[2017-01-19] MEDS ORDERED: POTASSIUM CHLORIDE 250 ML IVPB ONE (09:00)
--- NOTE | 2017-01-19 09:48 | CONS ---
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 He came into the hospital with abdominal pain but at that time had a low lipase level. At that time his calciums were normal his thyroid function was normal he had on appropriate serum cortisol despite having been on tapering dosages of prednisone as an outpatient. During the course of hospitalization his abdominal symptoms changed and Dr. Rahman reordered his lipase which was markedly elevated. Because of this he is been added the diagnosis of acute pancreatitis. The patient does not consume alcohol and the best of her knowledge has not been on any medications and I do this however he was recently placed on Bactrim. I have contacted [facility] to get the blood test reports. While his serum calcium was 5.3 with a low ionized calcium he had a PTH in the mid 20s. This is an inappropriately low normal PTH in the setting of severe hypocalcemia. This indicates hypo-parathyroidism. The patient informs me there is no prior history of this. Since he has not had neck surgery this leaves us to look at what other type of destructive process of the parathyroids could be going on here. Problems: (1) Hypoparathyroidism, unspecified Status: Acute Comment: He is being treated with IV calcitriol if something can give him orally. In addition were giving him some calcium. The IV calcium was stopped at some point along the way as a continuous drip. I will go ahead and give him bolus and follow how he does. I believe he is moving into the range where we can expect if the normalization of this. (2) Hypokalemia Status: Acute Comment: This is being repleted by the primary care team. These note given the calcium issues of the corrected calcium this will need slightly more aggressive replacement (3) Lymphoma, anaplastic large cell, abdomen Status: Chronic Comment: This remains the main issue for this gentleman including what on earth is going on in his abdominal cavity. Deferring off to the recommendations from our hematology oracle identity management consultant but again raised the question about transfer to higher level of care Consultation Date/Type/Reason Admit Date/Time Jan 09, 2017 at 19:08 Initial Consult Date 01/15/17 Type of Consultation: Endocrinology Reason for Consultation Hypocalcemia with low PTH level and decreased vitamin D level Referring Provider: YAO RAHMAN 24 HR Interval Summary Free Text/Dictation Patient reports that his abdominal pain is improved and his nausea is less. He is still not able to take orally including his medication Exam/Review of Systems Vital Signs Vitals Vital Signs Date Time Temp Pulse Resp B/P Pulse Ox O2 Delivery O2 Flow Rate FiO2 01/19/17 07:00 126 18 124/60 97 Nasal Cannula 5.0 01/19/17 06:00 100.0 01/18/17 21:20 27 Intake and Output 01/18/17 01/18/17 01/19/17 15:00 23:00 07:00 Intake Total 1705.00 ml 1612 ml 1791 ml Output Total 1400 ml 550 ml 2050 ml Balance 305.00 ml 1062 ml -259 ml Exam Constitutional: alert, oriented Respiratory: clear to auscultation, normal air movement Cardiovascular: nl pulses, regular rate and rhythm Results Result Diagram: 01/18/17 0515 01/19/17 0345 Results 24 hrs Laboratory Tests Test 01/18/17 10:17 01/18/17 15:58 01/19/17 03:45 Prothrombin Time 36.5 #H Prothrombin Time Ratio 2.9 INR International Normalized Ratio 3.60 Activated Partial Thromboplast Time 76.9 *H Lactic Acid Level 1.5 1.2 Total Bilirubin 1.5 H Direct Bilirubin 0.80 H Indirect Bilirubin 0.7 Aspartate Amino Transf (AST/SGOT) 58 H Alanine Aminotransferase (ALT/SGPT) 42 Alkaline Phosphatase 84 Total Protein 4.4 L Albumin 2.0 L Amylase Level 101 Lipase 334 H Ammonia 14 Sodium Level 137 Potassium Level 3.2 L Chloride Level 100 Carbon Dioxide Level 25 Anion Gap 15 Blood Urea Nitrogen 7 Creatinine 0.49 L Glucose Level 72 Calcium Level 6.0 L Phosphorus Level 1.1 L Magnesium Level 2.0 Medications Medications Current Medications Docusate Sodium (Colace) 100 mg Q12H PRN PO CONSTIPATION Last administered on t 10:46; Admin Dose 100 MG; Start 01/09/17 at 19:30 Magnesium Hydroxide (Milk Of Mag) 30 ml DAILY PRN PO CONSTIPATION; Start at 19:30 Sodium Biphosphate/ Sodium Phosphate (Fleet Enema) 133 ml DAILY PRN [place] CONSTIPATION; Start 01/09/17 at 19:30 Heparin Sodium (Porcine) 5000 unit 5,000 unit Q12 SC Last administered on 09:43; Admin Dose 5,000 UNIT; Start 01/09/17 at 21:00; Status Future Hold Piperacillin Sod/ Tazobactam Sod (Zosyn 3.375gm/ 100 ml (Pmx)) 100 ml @ 200 mls /hr Q6 IVPB Last administered on 01/19/17 05:35; Admin Dose 200 MLS/HR; Start 01/10/17 at 00:00 Vancomycin HCl (Vanco Iv Per Pharmacy) VANCOMYCIN PER PHARMACY NOTE XX ; Start 01/09/17 at 19:30 Nitroglycerin (Nitroglycerin (Sl Tab) 0.4 Mg) 1 tab Q5M PRN SL ANGINA; Start at 19:30 Metoprolol Succinate (Toprol Xl) 25 mg QHS PO Last administered on 01/18/17 20: 30; Admin Dose 25 MG; Start 01/09/17 at 21:00 [facility]iscellaneous Information [facility] This patient aranda... PRN PRN XX WOUND CARE; Start 01/10/17 at 03:30 Ondansetron HCl 4 mg 4 mg Q6 IV Last administered on 01/19/17 05:35; Admin Dose 4 MG; Start 01/10/17 at 15:30 Acetaminophen (Ofirmev 1000mg/ 100ml Iv) 100 ml @ 400 mls/hr Q6 IVPB Last administered on 01/19/17 05:56; Admin Dose 400 MLS/HR; Start 01/10/17 at 16:30 IV Flush 10 ml 10 ml PRN PRN IV IV PROTOCOL; Start 01/10/17 at 20:30 Sodium Chloride (NS) 1,000 ml @ 125 mls/hr Q8H IV Last administered on 00:38; Admin Dose 125 MLS/HR; Start 01/11/17 at 09:00 Ergocalciferol (Drisdol) 50,000 unit Sa@16 PO Last administered on 01/14/17 16: 43; Admin Dose 50,000 UNIT; Start 01/14/17 at 16:00 Prednisone (Prednisone) 10 mg DAILY PO Last administered on 01/19/17 07:50; Admin Dose 10 MG; Start 01/15/17 at 09:00 Famotidine 20 mg 20 mg BID IV Last administered on 01/19/17 07:50; Admin Dose 20 MG; Start 01/17/17 at 21:00 Vancomycin HCl 1.75 gm/Sodium Chloride 500 ml @ 125 mls/hr Q8H IVPB Last administered on 01/19/17 05:35; Admin Dose 125 MLS/HR; Start 01/18/17 at 13:00 Levofloxacin/ Dextrose (Levaquin 750 Mg/ D5W 150 ml (Pmx)) 150 ml @ 100 mls/hr Q24H IVPB Last administered on 01/18/17 17:25; Admin Dose 100 MLS/HR; Start 01/18/17 at 16:00 Fentanyl 125 mcg 125 mcg Q2H PRN IV PAIN Last administered on 01/19/17 07:50; Admin Dose 125 MCG; Start 01/18/17 at 17:00 Potassium Phosphate 20 meq/ Sodium Chloride 254.5455 ml @ 63.636 m... ONCE ONCE IVPB Last administered on 01/19/17 08:55; Admin Dose 63.636 MLS/HR; Start 01/19/17 at 08:00; Stop 01/19/17 at 11:59 Potassium Chloride (KCl 40 MEQ/250 ML NS) 250 ml @ 62.5 mls/hr ONCE ONCE IVPB ; Start 01/19/17 at 09:00; Stop 01/19/17 at 12:59 Miscellaneous Information (*Rx Drug Level Order Reminder*) VANCO TROUGH @ 1, 200 ON... ONCE ONCE XX ; Start 01/19/17 at 12:00; Stop 01/19/17 at 12:01 YOLY NASCIMENTO MD Jan 19, 2017 09:48
[2017-01-19] MEDS ORDERED: MAGNESIUM SULFATE 2 GM/50 ML 50 ML IVPB ONE (10:00)
[2017-01-19] MEDS ORDERED: CALCIUM GLUCONATE 10% 2 GM in SOD CHLORIDE 0.9% 100 ML IVPB ONE (10:00)
--- NOTE | 2017-01-19 10:11 | CONS ---
Date/Time of Note Date/Time of Note DATE: 01/19/17 TIME: 10:08 Consult Date/Type/Reason Admit Date/Time Jan 09, 2017 at 19:08 Initial Consult Date 01/15/17 Type of Consultation: Pulmonary Ordering Provider: YAO RAHMAN Subjective Patient more comfortable this morning with abdominal pain no nausea vomiting. Objective Vital Signs Date Time Temp Pulse Resp B/P Pulse Ox O2 Delivery O2 Flow Rate FiO2 01/19/17 09:30 120 25 97 01/19/17 09:00 110/66 Nasal Cannula 4.0 01/19/17 08:00 98.9 01/18/17 21:20 27 Intake and Output 01/18/17 01/18/17 01/19/17 15:00 23:00 07:00 Intake Total 1705.00 ml 1612 ml 1791 ml Output Total 1400 ml 550 ml 2050 ml Balance 305.00 ml 1062 ml -259 ml Exam PHYSICAL EXAMINATION GENERAL: Well-nourished well-developed gentleman more comfortable this morning. VITAL SIGNS: see below. HEENT: Pupils equal, round, and reactive to light. CARDIAC: S1, S2, 1/6 systolic ejection murmur CHEST: Diminished air entry bilaterally. ABDOMEN: Mild distention. Tender to palpation. Decreased bowel sounds. EXTREMITIES: No cyanosis, clubbing edema +1 NEUROLOGIC: Generalized weakness Results/Medications Result Diagram: 01/18/17 0515 01/19/17 0345 Results 24 hrs Laboratory Tests Test 01/18/17 10:17 01/18/17 15:58 01/19/17 03:45 Prothrombin Time 36.5 #H Prothrombin Time Ratio 2.9 INR International Normalized Ratio 3.60 Activated Partial Thromboplast Time 76.9 *H Lactic Acid Level 1.5 1.2 Total Bilirubin 1.5 H Direct Bilirubin 0.80 H Indirect Bilirubin 0.7 Aspartate Amino Transf (AST/SGOT) 58 H Alanine Aminotransferase (ALT/SGPT) 42 Alkaline Phosphatase 84 Total Protein 4.4 L Albumin 2.0 L Amylase Level 101 Lipase 334 H Ammonia 14 Sodium Level 137 Potassium Level 3.2 L Chloride Level 100 Carbon Dioxide Level 25 Anion Gap 15 Blood Urea Nitrogen 7 Creatinine 0.49 L Glucose Level 72 Calcium Level 6.0 L Phosphorus Level 1.1 L Magnesium Level 2.0 Medications Current Medications Docusate Sodium (Colace) 100 mg Q12H PRN PO CONSTIPATION Last administered on 10:46; Admin Dose 100 MG; Start 01/09/17 at 19:30 Magnesium Hydroxide (Milk Of Mag) 30 ml DAILY PRN PO CONSTIPATION; Start at 19:30 Sodium Biphosphate/ Sodium Phosphate (Fleet Enema) 133 ml DAILY PRN [place] CONSTIPATION; Start 01/09/17 at 19:30 Heparin Sodium (Porcine) 5000 unit 5,000 unit Q12 SC Last administered on 09:43; Admin Dose 5,000 UNIT; Start 01/09/17 at 21:00; Status Future Hold Piperacillin Sod/ Tazobactam Sod (Zosyn 3.375gm/ 100 ml (Pmx)) 100 ml @ 200 mls /hr Q6 IVPB Last administered on 01/19/17 05:35; Admin Dose 200 MLS/HR; Start 01/10/17 at 00:00 Vancomycin HCl (Vanco Iv Per Pharmacy) VANCOMYCIN PER PHARMACY NOTE XX ; Start 01/09/17 at 19:30 Nitroglycerin (Nitroglycerin (Sl Tab) 0.4 Mg) 1 tab Q5M PRN SL ANGINA; Start at 19:30 Metoprolol Succinate (Toprol Xl) 25 mg QHS PO Last administered on 01/18/17 20: 30; Admin Dose 25 MG; Start 01/09/17 at 21:00 [facility]isc[facility] This patient aranda... PRN PRN XX WOUND CARE; Start 01/10/17 at 03:30 Ondansetron HCl 4 mg 4 mg Q6 IV Last administered on 01/19/17 05:35; Admin Dose 4 MG; Start 01/10/17 at 15:30 Acetaminophen (Ofirmev 1000mg/ 100ml Iv) 100 ml @ 400 mls/hr Q6 IVPB Last administered on 01/19/17 05:56; Admin Dose 400 MLS/HR; Start 01/10/17 at 16:30 IV Flush 10 ml 10 ml PRN PRN IV IV PROTOCOL; Start 01/10/17 at 20:30 Sodium Chloride (NS) 1,000 ml @ 125 mls/hr Q8H IV Last administered on 00:38; Admin Dose 125 MLS/HR; Start 01/11/17 at 09:00 Ergocalciferol (Drisdol) 50,000 unit Sa@16 PO Last administered on 01/14/17 16: 43; Admin Dose 50,000 UNIT; Start 01/14/17 at 16:00 Prednisone (Prednisone) 10 mg DAILY PO Last administered on 01/19/17 07:50; Admin Dose 10 MG; Start 01/15/17 at 09:00 Famotidine 20 mg 20 mg BID IV Last administered on 01/19/17 07:50; Admin Dose 20 MG; Start 01/17/17 at 21:00 Vancomycin HCl 1.75 gm/Sodium Chloride 500 ml @ 125 mls/hr Q8H IVPB Last administered on 01/19/17 05:35; Admin Dose 125 MLS/HR; Start 01/18/17 at 13:00 Levofloxacin/ Dextrose (Levaquin 750 Mg/ D5W 150 ml (Pmx)) 150 ml @ 100 mls/hr Q24H IVPB Last administered on 01/18/17 17:25; Admin Dose 100 MLS/HR; Start 01/18/17 at 16:00 Fentanyl 125 mcg 125 mcg Q2H PRN IV PAIN Last administered on 01/19/17 07:50; Admin Dose 125 MCG; Start 01/18/17 at 17:00 Potassium Phosphate 20 meq/ Sodium Chloride 254.5455 ml @ 63.636 m... ONCE ONCE IVPB Last administered on 01/19/17 08:55; Admin Dose 63.636 MLS/HR; Start 01/19/17 at 08:00; Stop 01/19/17 at 11:59 Potassium Chloride (KCl 40 MEQ/250 ML NS) 250 ml @ 62.5 mls/hr ONCE ONCE IVPB ; Start 01/19/17 at 09:00; Stop 01/19/17 at 12:59 Miscellaneous Information (*Rx Drug Level Order Reminder*) VANCO TROUGH @ 1, 200 ON... ONCE ONCE XX ; Start 01/19/17 at 12:00; Stop 01/19/17 at 12:01 Calcitriol 1 mcg 1 mcg ONCE ONCE IV ; Start 01/20/17 at 06:00; Stop 01/20/17 at 06:01 Calcium Gluconate 2 gm/Sodium Chloride 120 ml @ 60 mls/hr ONCE ONCE IVPB ; Start 01/19/17 at 10:00; Stop 01/19/17 at 11:59 Magnesium Sulfate (Magnesium Sulfate 2 Gm/50 ml) 50 ml @ 25 mls/hr ONCE ONCE IVPB Last administered on 01/19/17t 09:56; Admin Dose 25 MLS/HR; Start at 10:00; Stop 01/19/17 at 11:59 Assessment/Plan Chief Complaint/Hosp Course IMP: 1. Severe pancreatitis--patient more comfortable today. 2. Severe HypoCa++--2/2 #1 continue endocrinology recommendations for continued 3. UTI 4. Anaplastic B-cell lymphoma 5. RAMU, improved 6. Pulmonary nodular opacities--c/w metastatic lymphoma RECS: 1. Continue fluids per nephrology 2. CT abdomen pending. 3. DC IV calcium 4. Pain control via [employer] PROJECT MANAGER 5. Follow lytes 6. Surgery recommendations advance diet per surgery recommendations 7.PT evaluation out of bed if tolerated Discussed with primary team. Problems: BECKA DINH MD, [facility] Jan 19, 2017 10:11
--- NOTE | 2017-01-19 12:00 | CONS ---
Date/Time of Note Date/Time of Note DATE: 01/19/17 TIME: 11:48 Assessment/Plan Assessment/Plan Chief Complaint/Hosp Course ID PROGRESS NOTE CURRENT ABX=> + Zosyn #8 + Levaquin IV #2 + Start Bactrim IV #1 Vanco IV #8 -> DC 01/19 Bactrim po (RX per his HemeOnc)-> dc 8/6 24H INTERVAL SUMMARY * Aranda been spiking fevers 101.+ - 103.0 => So far no fever 24H recorded * BCx via picc ordered 01/18 => in process ? * Started empirically on high dose Levaquin IV to cover GNR Stenotrophomonas = new posted sensitivities show RESISTANCE to Levaquin * A/A/O => WBC elevated > 15.5 (01/18)=> PICC line RUEXT; left side flank/hip/ leg decub = infected * 01/19/17 CXR: Persistent patchy areas of consolidation in the right upper and lower lobes. * 01/14/17 CT: IMPRESSION: 1. Small right pleural effusion with atelectasis and right lung base pneumonia. * Progressive left flank and left abd and left leg wound stage III * WOUND CULTURE Organism 1 CITROBACTER FREUNDII Organism 2 ENTEROCOCCUS SPECIES Organism 3 CORYNEBACTERIUM SPECIES Organism 4 STENOTROPHOMONAS MALTOPHILIA C FREUNDII ENT SPS STENMAL M.I.C. RX M.I.C. RX M.I.C. RX --------- --- --------- --- --------- --- AMPICILLIN <=2 S CEFOTAXIME S CIPROFLOXACIN <=0.25 S GENTAMICIN <=1 S LEVOFLOXACIN 0.5 S >=8 R PENICILLIN-G 8 S VANCOMYCIN 1 S TOBRAMYCIN <=1 S TRIMETHOPRIM/SULFAMETHOXAZOLE >=320 R 0.75 S CORYN SPS Zone Size RX --------- --- * AMPICILLIN S * CEFAZOLIN S * CEFOTAXIME S * CEFUROXIME S * CIPROFLOXACIN S * CLINDAMYCIN R * ERYTHROMYCIN R * PENICILLIN S * VANCOMYCIN S EXAM GENERAL: 31 yo M obese HEENT:Unremarkable NECK: (Supple CHEST: Rise symmetrical without dyspnea on observation ABDOMEN: Soft, EXTREMITIES: Warm, moves extremities SKIN: Tattoos ID ASSESSMENT: 31 yo morbid obese M admit with: 1. Anaplastic B-cell Lymphoma=> Pt's last chemo was a month ago * Leukopenia --> now Leukocytosis-> Started on IV steroids * Presented w/Rx Bactrim 1tab daily (Neutropenic PCP prophy per HemeOn) * CT ABD/PEL/CHEST:(+) multiple areas of nodules likely lymphoma, 2 Sepsis w/worsening lactic acidosis 2/2 PNA + Left flank/hip/leg decub => TNS to ICU * CT ABD/PEL/CHEST: PNA * Progressive left flank and left abd and left leg wound stage III 3. Acute pancreatitis -> No evidence of necrosis on CT * No need for ABX for pancreas per surgery 4. Presumed RAMU: likely pre-renal 2/2 vomiting 5. Hyponatremia and Hypokalemia: 2/2 vomiting 6. Enterococcal UTI -> Low colony count 7. Progressive left flank and left abd and left leg wound stage III * 01/12/17 WOUND CULTURE Organism 1 CITROBACTER FREUNDII Organism 2 ENTEROCOCCUS SPECIES Organism 3 CORYNEBACTERIUM SPECIES Organism 4 STENOTROPHOMONAS MALTOPHILIA INVASIVES: RUEXT PICC ABX ALLERGY: EGG/MILK CURRENT ABX=> + Zosyn #8 + Levaquin IV #2 + Start Bactrim IV #1 Vanco IV #8 -> DC 8/10 Bactrim po (RX per his HemeOnc)-> dc 8/ ID PLAN 1. Continue ABX for sepsis 2. Repeat BCx via PICC 01/18 ordered/pending? -> Spiking fevers >103 on current ABX 01/18 3.Continue Zosyn (Enterococcus + GPC + GNR) + Levaquin 4. Change Vanco IV to Bactrim which will cover empiric MRSA + Stenotrophomonas . . Problems: Consultation Date/Type/Reason Admit Date/Time Jan 09, 2017 at 19:08 Initial Consult Date 01/10/17 Type of Consultation: ID Referring Provider: YAO RAHMAN Exam/Review of Systems Vital Signs Vitals Vital Signs Date Time Temp Pulse Resp B/P Pulse Ox O2 Delivery O2 Flow Rate FiO2 01/19/17 09:30 120 25 97 01/19/17 09:00 110/66 Nasal Cannula 4.0 01/19/17 08:00 98.9 01/18/17 21:20 27 Intake and Output 01/18/17 01/18/17 01/19/17 15:00 23:00 07:00 Intake Total 1705.00 ml 1612 ml 1791 ml Output Total 1400 ml 550 ml 2050 ml Balance 305.00 ml 1062 ml -259 ml Results Result Diagram: 01/18/17 0515 01/19/17 0345 Results 24 hrs Laboratory Tests Test 01/18/17 15:58 01/19/17 03:45 Lactic Acid Level 1.2 Ammonia 14 Sodium Level 137 Potassium Level 3.2 L Chloride Level 100 Carbon Dioxide Level 25 Anion Gap 15 Blood Urea Nitrogen 7 Creatinine 0.49 L Glucose Level 72 Calcium Level 6.0 L Phosphorus Level 1.1 L Magnesium Level 2.0 Medications Medications Current Medications Docusate Sodium (Colace) 100 mg Q12H PRN PO CONSTIPATION Last administered on 10:46; Admin Dose 100 MG; Start 01/09/17 at 19:30 Magnesium Hydroxide (Milk Of Mag) 30 ml DAILY PRN PO CONSTIPATION; Start at 19:30 Sodium Biphosphate/ Sodium Phosphate (Fleet Enema) 133 ml DAILY PRN [place] CONSTIPATION; Start 01/09/17 at 19:30 Heparin Sodium (Porcine) 5000 unit 5,000 unit Q12 SC Last administered on 09:43; Admin Dose 5,000 UNIT; Start 01/09/17 at 21:00; Status Future Hold Piperacillin Sod/ Tazobactam Sod (Zosyn 3.375gm/ 100 ml (Pmx)) 100 ml @ 200 mls /hr Q6 IVPB Last administered on 01/19/17 05:35; Admin Dose 200 MLS/HR; Start 01/10/17 at 00:00 Vancomycin HCl (Vanco Iv Per Pharmacy) VANCOMYCIN PER PHARMACY NOTE XX ; Start 01/09/17 at 19:30 Nitroglycerin (Nitroglycerin (Sl Tab) 0.4 Mg) 1 tab Q5M PRN SL ANGINA; Start at 19:30 Metoprolol Succinate (Toprol Xl) 25 mg QHS PO Last administered on 01/18/17 20: 30; Admin Dose 25 MG; Start 01/09/17 at 21:00 Miscellaneous Information (Pending [facility] Order For Wound Care) This patient aranda... PRN PRN XX WOUND CARE; Start 01/10/17 at 03:30 Ondansetron HCl 4 mg 4 mg Q6 IV Last administered on 01/19/17 05:35; Admin Dose 4 MG; Start 01/10/17 at 15:30 Acetaminophen (Ofirmev 1000mg/ 100ml Iv) 100 ml @ 400 mls/hr Q6 IVPB Last administered on 01/19/17 05:56; Admin Dose 400 MLS/HR; Start 01/10/17 at 16:30 IV Flush 10 ml 10 ml PRN PRN IV IV PROTOCOL; Start 01/10/17 at 20:30 Sodium Chloride (NS) 1,000 ml @ 125 mls/hr Q8H IV Last administered on 11:17; Admin Dose 125 MLS/HR; Start 01/11/17 at 09:00 Ergocalciferol (Drisdol) 50,000 unit Sa@16 PO Last administered on 01/14/17 16: 43; Admin Dose 50,000 UNIT; Start 01/14/17 at 16:00 Prednisone (Prednisone) 10 mg DAILY PO Last administered on 01/19/17 07:50; Admin Dose 10 MG; Start 01/15/17 at 09:00 Famotidine 20 mg 20 mg BID IV Last administered on 01/19/17 07:50; Admin Dose 20 MG; Start 01/17/17 at 21:00 Vancomycin HCl 1.75 gm/Sodium Chloride 500 ml @ 125 mls/hr Q8H IVPB Last administered on 01/19/17 05:35; Admin Dose 125 MLS/HR; Start 01/18/17 at 13:00 Levofloxacin/ Dextrose (Levaquin 750 Mg/ D5W 150 ml (Pmx)) 150 ml @ 100 mls/hr Q24H IVPB Last administered on 01/18/17 17:25; Admin Dose 100 MLS/HR; Start 01/18/17 at 16:00 Fentanyl 125 mcg 125 mcg Q2H PRN IV PAIN Last administered on 01/19/17 11:13; Admin Dose 125 MCG; Start 01/18/17 at 17:00 Potassium Phosphate 20 meq/ Sodium Chloride 254.5455 ml @ 63.636 m... ONCE ONCE IVPB Last administered on 01/19/17 08:55; Admin Dose 63.636 MLS/HR; Start 01/19/17 at 08:00; Stop 01/19/17 at 11:59 Potassium Chloride (KCl 40 MEQ/250 ML NS) 250 ml @ 62.5 mls/hr ONCE ONCE IVPB Last administered on 01/19/17 11:13; Admin Dose 62.5 MLS/HR; Start 01/19/17 at 09:00; Stop 01/19/17 at 12:59 Miscellaneous Information (*Rx Drug Level Order Reminder*) VANCO TROUGH @ 1, 200 ON... ONCE ONCE XX ; Start 01/19/17 at 12:00; Stop 01/19/17 at 12:01 Calcitriol 1 mcg 1 mcg ONCE ONCE IV ; Start 01/20/17 at 06:00; Stop 01/20/17 at 06:01 Calcium Gluconate 2 gm/Sodium Chloride 120 ml @ 60 mls/hr ONCE ONCE IVPB Last administered on 01/19/17 11:44; Admin Dose 60 MLS/HR; Start 01/19/17 at 10 :00; Stop 01/19/17 at 11:59 Magnesium Sulfate (Magnesium Sulfate 2 Gm/50 ml) 50 ml @ 25 mls/hr ONCE ONCE IVPB Last administered on 01/19/17 09:56; Admin Dose 25 MLS/HR; Start at 10:00; Stop 01/19/17 at 11:59 AARON BELLAMY NP Jan 19, 2017 11:59 AARON BELLAMY NP Jan 19, 2017 11:59
--- NOTE | 2017-01-19 12:29 | CONS ---
Date/Time of Note Date/Time of Note DATE: 01/19/17 TIME: 12:23 Assessment/Plan Assessment/Plan Additional Assessment/Plan Patient is much more awake alert denies severe discomfort after increasing his pain control medications yesterday Dilaudid is now 2 mg/h continuous with fentanyl 150 mcg every 2 hours as needed. Denies nausea vomiting chest pain shortness of breath dizziness diplopia disorientation mental cloudiness he is asked for his medications appropriately. Going down for a CT of his abdomen today Consultation Date/Type/Reason Admit Date/Time Jan 09, 2017 at 19:08 Initial Consult Date 01/10/17 Type of Consultation: Palliative care Referring Provider: YAO RAHMAN Exam/Review of Systems Vital Signs Vitals Vital Signs Date Time Temp Pulse Resp B/P Pulse Ox O2 Delivery O2 Flow Rate FiO2 01/19/17 09:30 120 25 97 01/19/17 09:00 110/66 Nasal Cannula 4.0 01/19/17 08:00 98.9 01/18/17 21:20 27 Intake and Output 01/18/17 01/18/17 01/19/17 15:00 23:00 07:00 Intake Total 1705.00 ml 1612 ml 1791 ml Output Total 1400 ml 550 ml 2050 ml Balance 305.00 ml 1062 ml -259 ml Exam Constitutional: alert, oriented, well developed Psych: nl mood/affect, no complaints Respiratory: clear to auscultation, normal air movement, No congested cough, No crackles/rales, No diminished breath sounds, No intercostal retraction, No labored breathing, No other, No respirations, No tactile fremitus, No wheezing Cardiovascular: nl pulses, regular rate and rhythm, No S3, No S4, No bruits, No diastolic murmur, No edema, No gallop, No irregular rhythm, No jugular venous distention (JVD), No murmurs/extra sounds, No other, No rub, No systolic murmur Gastrointestinal: distended, firm Results Result Diagram: 01/18/17 0515 01/19/17 0345 Results 24 hrs Laboratory Tests Test 01/18/17 15:58 01/19/17 03:45 Lactic Acid Level 1.2 Ammonia 14 Sodium Level 137 Potassium Level 3.2 L Chloride Level 100 Carbon Dioxide Level 25 Anion Gap 15 Blood Urea Nitrogen 7 Creatinine 0.49 L Glucose Level 72 Calcium Level 6.0 L Phosphorus Level 1.1 L Magnesium Level 2.0 Medications Medications Current Medications Docusate Sodium (Colace) 100 mg Q12H PRN PO CONSTIPATION Last administered on 10:46; Admin Dose 100 MG; Start 01/09/17 at 19:30 Magnesium Hydroxide (Milk Of Mag) 30 ml DAILY PRN PO CONSTIPATION; Start at 19:30 Sodium Biphosphate/ Sodium Phosphate (Fleet Enema) 133 ml DAILY PRN [place] CONSTIPATION; Start 01/09/17 at 19:30 Heparin Sodium (Porcine) 5000 unit 5,000 unit Q12 SC Last administered on 09:43; Admin Dose 5,000 UNIT; Start 01/09/17 at 21:00; Status Future Hold Piperacillin Sod/ Tazobactam Sod (Zosyn 3.375gm/ 100 ml (Pmx)) 100 ml @ 200 mls /hr Q6 IVPB Last administered on 01/19/17 05:35; Admin Dose 200 MLS/HR; Start 01/10/17 at 00:00 Nitroglycerin (Nitroglycerin (Sl Tab) 0.4 Mg) 1 tab Q5M PRN SL ANGINA; Start at 19:30 Metoprolol Succinate (Toprol Xl) 25 mg QHS PO Last administered on 01/18/17 20: 30; Admin Dose 25 MG; Start 01/09/17 at 21:00 [facility] This patient aranda... PRN PRN XX WOUND CARE; Start 01/10/17 at 03:30 Ondansetron HCl 4 mg 4 mg Q6 IV Last administered on 01/19/17 05:35; Admin Dose 4 MG; Start 01/10/17 at 15:30 Acetaminophen (Ofirmev 1000mg/ 100ml Iv) 100 ml @ 400 mls/hr Q6 IVPB Last administered on 01/19/17 05:56; Admin Dose 400 MLS/HR; Start 01/10/17 at 16:30 IV Flush 10 ml 10 ml PRN PRN IV IV PROTOCOL; Start 01/10/17 at 20:30 Sodium Chloride (NS) 1,000 ml @ 125 mls/hr Q8H IV Last administered on 11:17; Admin Dose 125 MLS/HR; Start 01/11/17 at 09:00 Ergocalciferol (Drisdol) 50,000 unit Sa@16 PO Last administered on 01/14/17 16: 43; Admin Dose 50,000 UNIT; Start 01/14/17 at 16:00 Prednisone (Prednisone) 10 mg DAILY PO Last administered on 01/19/17 07:50; Admin Dose 10 MG; Start 01/15/17 at 09:00 Famotidine 20 mg 20 mg BID IV Last administered on 01/19/17 07:50; Admin Dose 20 MG; Start 01/17/17 at 21:00 Levofloxacin/ Dextrose (Levaquin 750 Mg/ D5W 150 ml (Pmx)) 150 ml @ 100 mls/hr Q24H IVPB Last administered on 01/18/17 17:25; Admin Dose 100 MLS/HR; Start 01/18/17 at 16:00 Fentanyl 125 mcg 125 mcg Q2H PRN IV PAIN Last administered on 01/19/17 11:13; Admin Dose 125 MCG; Start 01/18/17 at 17:00 Potassium Chloride (KCl 40 MEQ/250 ML NS) 250 ml @ 62.5 mls/hr ONCE ONCE IVPB Last administered on 01/19/17 11:13; Admin Dose 62.5 MLS/HR; Start 01/19/17 at 09:00; Stop 01/19/17 at 12:59 Calcitriol 1 mcg 1 mcg ONCE ONCE IV ; Start 01/20/17 at 06:00; Stop 01/20/17 at 06:01 Trimethoprim/ Sulfamethoxazole/ Dextrose (Bactrim/D5W) 515 ml @ 343.333 mls/hr Q8 IVPB ; Start 01/19/17 at 14:00; Status UNV SHELBY WHITE Jan 19, 2017 12:29
--- NOTE | 2017-01-19 14:36 | PN ---
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 GI: Pancreatitis of unclear etiology:? Chemo - NS 125 cc/hr - CT A+P pending - Nutrition ? PPN or TPN 2. Renal a> Hyponatremia, etiology multifactorial, now resolved. F/U labs. b> Hypokalemia, hypophosphatemia. due to fluid loss/ Pancreatitis . C/w with aggressive repletion with with potassium phosphate and potassium chloride. c> Non oliguric acute kidney injury , now resolved ; f/u labs 3. Sepsis Vanco/levaquin/zosyn per ID. 4 ENDO:Hypocalcemia: - Continue calcitriol, ca glu as needed per endocrine 5 HEME: Lymphoma: - Further management when stable Problems: Subjective 24 Hr Interval Summary Free Text/Dictation Resumed care from the hospitalist Pt has abdominal pain on and off , currently on Dilaudid Occasional nausea Pending CT scan today NPO Occasionally tingling and numbness Exam/Review of Systems Vital Signs Vitals Vital Signs Date Time Temp Pulse Resp B/P Pulse Ox O2 Delivery O2 Flow Rate FiO2 01/19/17 09:30 120 25 97 01/19/17 09:00 110/66 Nasal Cannula 4.0 01/19/17 08:00 98.9 01/18/17 21:20 27 Intake and Output 01/18/17 01/18/17 01/19/17 15:00 23:00 07:00 Intake Total 1705.00 ml 1612 ml 1791 ml Output Total 1400 ml 550 ml 2050 ml Balance 305.00 ml 1062 ml -259 ml Exam Constitutional: alert, oriented, well developed Psych: nl mood/affect, no complaints Head: atraumatic, normocephalic Eyes: EOMI, PERRL, nl conjunctiva, nl lids, nl sclera ENMT: nl external ears & nose, nl lips & teeth, nl nasal mucosa & septum Neck: non-tender, supple Respiratory: clear to auscultation, normal air movement Cardiovascular: nl pulses, regular rate and rhythm Gastrointestinal: nl liver, spleen, non-tender, soft Musculoskeletal: nl extremities to inspection, nl gait and stance Extremities: normal pulses Neurological: DESIGN QUALITY ENGINEER II-XII intact, nl mental status, nl speech, nl strength Skin: nl turgor, No rash or lesions Lymph: nl lymph nodes Results PHYSICAL EXAMINATION GENERAL: Well-nourished well-developed gentleman pain VITAL SIGNS: see below. HEENT: Pupils equal, round, and reactive to light. CARDIAC: S1, S2, 1/6 systolic ejection murmur CHEST: Diminished air entry bilaterally. ABDOMEN: distention. Tender to palpation. Decreased bowel sounds. EXTREMITIES: No cyanosis, clubbing edema +2 NEUROLOGIC: Generalized weakness Result Diagram: 01/18/17 0515 01/19/17 0345 Results 24 hrs Laboratory Tests Test 01/18/17 15:58 01/19/17 03:45 Lactic Acid Level 1.2 Ammonia 14 Sodium Level 137 Potassium Level 3.2 L Chloride Level 100 Carbon Dioxide Level 25 Anion Gap 15 Blood Urea Nitrogen 7 Creatinine 0.49 L Glucose Level 72 Calcium Level 6.0 L Phosphorus Level 1.1 L Magnesium Level 2.0 Medications Medications Current Medications Docusate Sodium (Colace) 100 mg Q12H PRN PO CONSTIPATION Last administered on 10:46; Admin Dose 100 MG; Start 01/09/17 at 19:30 Magnesium Hydroxide (Milk Of Mag) 30 ml DAILY PRN PO CONSTIPATION; Start at 19:30 Sodium Biphosphate/ Sodium Phosphate (Fleet Enema) 133 ml DAILY PRN [place] CONSTIPATION; Start 01/09/17 at 19:30 Heparin Sodium (Porcine) 5000 unit 5,000 unit Q12 SC Last administered on 09:43; Admin Dose 5,000 UNIT; Start 01/09/17 at 21:00; Status Future Hold Piperacillin Sod/ Tazobactam Sod (Zosyn 3.375gm/ 100 ml (Pmx)) 100 ml @ 200 mls /hr Q6 IVPB Last administered on 01/19/17 13:10; Admin Dose 200 MLS/HR; Start 01/10/17 at 00:00 Nitroglycerin (Nitroglycerin (Sl Tab) 0.4 Mg) 1 tab Q5M PRN SL ANGINA; Start at 19:30 Metoprolol Succinate (Toprol Xl) 25 mg QHS PO Last administered on 01/18/17 20: 30; Admin Dose 25 MG; Start 01/09/17 at 21:00 [facility] This patient aranda... PRN PRN XX WOUND CARE; Start 01/10/17 at 03:30 Ondansetron HCl 4 mg 4 mg Q6 IV Last administered on 01/19/17 13:10; Admin Dose 4 MG; Start 01/10/17 at 15:30 Acetaminophen (Ofirmev 1000mg/ 100ml Iv) 100 ml @ 400 mls/hr Q6 IVPB Last administered on 01/19/17 13:10; Admin Dose 400 MLS/HR; Start 01/10/17 at 16:30 IV Flush 10 ml 10 ml PRN PRN IV IV PROTOCOL; Start 01/10/17 at 20:30 Sodium Chloride (NS) 1,000 ml @ 125 mls/hr Q8H IV Last administered on 11:17; Admin Dose 125 MLS/HR; Start 01/11/17 at 09:00 Ergocalciferol (Drisdol) 50,000 unit Sa@16 PO Last administered on 01/14/17 16: 43; Admin Dose 50,000 UNIT; Start 01/14/17 at 16:00 Prednisone (Prednisone) 10 mg DAILY PO Last administered on 01/19/17 07:50; Admin Dose 10 MG; Start 01/15/17 at 09:00 Famotidine 20 mg 20 mg BID IV Last administered on 01/19/17 07:50; Admin Dose 20 MG; Start 01/17/17 at 21:00 Levofloxacin/ Dextrose (Levaquin 750 Mg/ D5W 150 ml (Pmx)) 150 ml @ 100 mls/hr Q24H IVPB Last administered on 01/18/17 17:25; Admin Dose 100 MLS/HR; Start 01/18/17 at 16:00 Fentanyl (Sublimaze) 125 mcg Q2H PRN IV PAIN Last administered on 01/19/17 13: 23; Admin Dose 125 MCG; Start 01/18/17 at 17:00 Calcitriol 1 mcg 1 mcg ONCE ONCE IV ; Start 01/20/17 at 06:00; Stop 01/20/17 at 06:01 Trimethoprim/ Sulfamethoxazole/ Dextrose (Bactrim/D5W) 525 ml @ 343.333 mls/hr Q8 IVPB ; Start 01/19/17 at 13:30 TAMARA HARTMANN MD Jan 19, 2017 14:34
[2017-01-19] MEDS: TRIMETHOPRIM/SULFAMETHOXAZOLE 25 ML in DEXTROSE 5% 500 ML IVPB SCH ×2 (14:38→22:47)
--- NOTE | 2017-01-19 15:12 | PN ---
Date/Time of Note Date/Time of Note DATE: 01/19/17 TIME: 15:10 Assessment/Plan VTE Prophylaxis VTE Prophylaxis Intervention: SCD's Lines/Catheters IV Catheter Type (from Nrs): PICC Line Central line still needed: Yes Urinary Cath still in place: No Assessment/Plan Assessment/Plan Assessment: * Acute pancreatitis, etiology unclear/resolving * Mild abnormality liver function tests with no evidence of biliary pathology * Anaplastic B-cell lymphoma/aggressive behavior * Sepsis/pneumonia/improved Plan: * Continue monitor lipase and abdominal pain * Once abdominal pain subsides made reintroduce diet * case discussed with Dr Hewitt * Further orders will depend on clinical course Subjective 24 Hr Interval Summary Free Text/Dictation * Course reviewed with RN * Patient seen and examined * Improved abdominal pain Exam/Review of Systems Vital Signs Vitals Vital Signs Date Time Temp Pulse Resp B/P Pulse Ox O2 Delivery O2 Flow Rate FiO2 01/19/17 14:30 116 19 98 01/19/17 14:00 141/75 01/19/17 12:00 99.9 01/19/17 09:00 Nasal Cannula 4.0 01/18/17 21:20 27 Intake and Output 01/18/17 01/18/17 01/19/17 15:00 23:00 07:00 Intake Total 1705.00 ml 1612 ml 1791 ml Output Total 1400 ml 550 ml 2050 ml Balance 305.00 ml 1062 ml -259 ml Exam Constitutional: alert, frail Psych: no complaints Head: atraumatic, normocephalic Eyes: PERRL Neck: non-tender, supple Respiratory: clear to auscultation, normal air movement Cardiovascular: nl pulses, regular rate and rhythm Gastrointestinal: distended, soft, tender, No rebound or guarding Musculoskeletal: nl extremities to inspection, nl gait and stance Extremities: normal pulses Neurological: nl mental status, nl speech Skin: nl turgor, No rash or lesions Lymph: nl lymph nodes Results Result Diagram: 01/18/17 0515 01/19/17 0345 Results 24 hrs Laboratory Tests Test 01/18/17 15:58 01/19/17 03:45 Lactic Acid Level 1.2 Ammonia 14 Sodium Level 137 Potassium Level 3.2 L Chloride Level 100 Carbon Dioxide Level 25 Anion Gap 15 Blood Urea Nitrogen 7 Creatinine 0.49 L Glucose Level 72 Calcium Level 6.0 L Phosphorus Level 1.1 L Magnesium Level 2.0 Medications Medications Current Medications Docusate Sodium (Colace) 100 mg Q12H PRN PO CONSTIPATION Last administered on 10:46; Admin Dose 100 MG; Start 01/09/17 at 19:30 Magnesium Hydroxide (Milk Of Mag) 30 ml DAILY PRN PO CONSTIPATION; Start at 19:30 Sodium Biphosphate/ Sodium Phosphate (Fleet Enema) 133 ml DAILY PRN [place] CONSTIPATION; Start 01/09/17 at 19:30 Heparin Sodium (Porcine) 5000 unit 5,000 unit Q12 SC Last administered on 09:43; Admin Dose 5,000 UNIT; Start 01/09/17 at 21:00; Status Future Hold Piperacillin Sod/ Tazobactam Sod (Zosyn 3.375gm/ 100 ml (Pmx)) 100 ml @ 200 mls /hr Q6 IVPB Last administered on 01/19/17 13:10; Admin Dose 200 MLS/HR; Start 01/10/17 at 00:00 Nitroglycerin (Nitroglycerin (Sl Tab) 0.4 Mg) 1 tab Q5M PRN SL ANGINA; Start at 19:30 Metoprolol Succinate (Toprol Xl) 25 mg QHS PO Last administered on 01/18/17 20: 30; Admin Dose 25 MG; Start 01/09/17 at 21:00 [facility]isc[facility] This patient aranda... PRN PRN XX WOUND CARE; Start 01/10/17 at 03:30 Ondansetron HCl 4 mg 4 mg Q6 IV Last administered on 01/19/17 13:10; Admin Dose 4 MG; Start 01/10/17 at 15:30 Acetaminophen (Ofirmev 1000mg/ 100ml Iv) 100 ml @ 400 mls/hr Q6 IVPB Last administered on 01/19/17 13:10; Admin Dose 400 MLS/HR; Start 01/10/17 at 16:30 IV Flush 10 ml 10 ml PRN PRN IV IV PROTOCOL; Start 01/10/17 at 20:30 Sodium Chloride (NS) 1,000 ml @ 125 mls/hr Q8H IV Last administered on 11:17; Admin Dose 125 MLS/HR; Start 01/11/17 at 09:00 Ergocalciferol (Drisdol) 50,000 unit Sa@16 PO Last administered on 01/14/17 16: 43; Admin Dose 50,000 UNIT; Start 01/14/17 at 16:00 Prednisone (Prednisone) 10 mg DAILY PO Last administered on 01/19/17 07:50; Admin Dose 10 MG; Start 01/15/17 at 09:00 Famotidine 20 mg 20 mg BID IV Last administered on 01/19/17 07:50; Admin Dose 20 MG; Start 01/17/17 at 21:00 Levofloxacin/ Dextrose (Levaquin 750 Mg/ D5W 150 ml (Pmx)) 150 ml @ 100 mls/hr Q24H IVPB Last administered on 01/18/17 17:25; Admin Dose 100 MLS/HR; Start 01/18/17 at 16:00 Fentanyl (Sublimaze) 125 mcg Q2H PRN IV PAIN Last administered on 01/19/17 13: 23; Admin Dose 125 MCG; Start 01/18/17 at 17:00 Calcitriol 1 mcg 1 mcg ONCE ONCE IV ; Start 01/20/17 at 06:00; Stop 01/20/17 at 06:01 Trimethoprim/ Sulfamethoxazole/ Dextrose (Bactrim/D5W) 525 ml @ 343.333 mls/hr Q8 IVPB Last administered on 01/19/17 14:38; Admin Dose 343.333 MLS/HR; Start 01/19/17 at 13:30 SELENA ROY NP Jan 19, 2017 15:12
[2017-01-19] MEDS ORDERED: IOHEXOL 300MG/ML 150 ML BTL ONE (16:20)
[2017-01-19] MEDS ORDERED: SOD CHLORIDE 0.9% 100 ML ONE (16:20)
--- NOTE | 2017-01-19 17:39 | RADRPT ---
PROCEDURE: CT Abdomen and Pelvis with contrast. CLINICAL INDICATION: Pancreatitis. TECHNIQUE: Multiple contiguous axial CT images of the abdomen and pelvis were obtained following t he administration of 100 cc of Omnipaque-300. Coronal and sagittal reconstructions were also perfor med. CTDIvol (mGy): 23.77; Total Exam DLP (mGy-cm): 1577.66. One or more of the following dose reduction techniques were utilized: - Automated exposure control. - Adjustment of the mA and/or kV according to patient size. - Use of iterative reconstruction technique. COMPARISON: Liver ultrasound 01/18/2017. CT abdomen/pelvis 01/14/2017. CT chest 01/11/2017. CT abdomen/pelvis 01/09/2017. FINDINGS: Limited imaging of the lower thorax numerous small irregular nodules throughout the lung bases, whic h are grossly unchanged. Small bilateral pleural effusions are present. There is a focal 3.8 cm area of mass-like heterogeneous enhancement within segment VII, which is unc hanged from recent examination and has decreased from approximately 4.1 cm on examination from 01/09. There is a similar structure within the inferior of the right hepatic lobe measuring 5.2 cm i n greatest diameter, which is slightly less prominent from 01/09/2017 where it measured 5.4 cm. Per fusion changes are seen within the immediate surrounding hepatic parenchyma. The hepatic and portal veins are patent. The gallbladder is mildly distended. The spleen is mildly enlarged measuring 14 .5 cm in a craniocaudal dimension. Extensive peripancreatic edema is observed and has increased sin ce 01/14/2017. Small volume ascites is present and slightly increased. There is no evidence of org anized fluid collection. Pancreatic parenchymal enhancement is observed. The adrenal glands are un remarkable. The kidneys are symmetric in size . There is a focal 2.8 cm subtle hypoenhancing mass/poor corticome dullary distinction within the left kidney. There is no hydronephrosis or abnormal perinephric infla mmation. There are no ureteral stones. The abdominal aorta is normal in caliber. There is no periaortic / retroperitoneal lymphadenopathy. Scattered few small retroperitoneal lymph nodes are present and unchanged. The stomach is collapsed. The small intestines are unremarkable. Mild submucosal edema within the ascending colon is observed. There is no evidence of pneumatosis or pneumoperitoneum. The bladder, prostate and seminal vesicles are unremarkable. A rectal tube is in place. Extensive infiltration throughout the subcutaneous soft tissues is observed and slightly progressed. Background subcutaneous edema is also likely present. Skeletal structures are unremarkable. IMPRESSION: Extensive peripancreatic edema, increased. No evidence of organized fluid collection. Small volume ascites, increased. Heterogeneous mass-like areas of enhancement within the liver, mildly decreased in size over prior e xaminations. Further characterization with MRI abdomen with without contrast may be helpful. Numerous small irregular nodules throughout the lung bases, grossly unchanged. Small bilateral pleu ral effusions are present. Extensive subcutaneous infiltration, slightly progressed. Background subcutaneous edema is also lik florin present. Splenomegaly. Subtle focal hypoenhancing mass/poor corticomedullary distinction within the left kidney, unchanged. RPTAT: HLST .Celia Naidu MD, Date Time Electronically viewed and signed by .Celia Naidu MD, on 01/19/2017 17:39 .T/
[2017-01-19] MEDS: LEVOFLOXACIN 750MG/D5W (PMX) 150 ML IVPB SCH (18:49)
--- NOTE | 2017-01-19 18:49 | PN ---
Date/Time of Note Date/Time of Note DATE: 01/19/17 TIME: 18:47 Assessment/Plan Lines/Catheters IV Catheter Type (from Nrs): PICC Line Sierra in Place (from Nrs): No Assessment/Plan Assessment/Plan [facility] Progress Note Date of Service: 01/19/2017 Place of service: [facility] ICU Today's Assessment & Plan: Overall stable with pancreatitis, which seems to be mild on labs. As expected and fortunately, the new CT scan does not show obvious evidence of infected pancreatic necrosis, free air, or other surgical emergencies. Note that the patient does have significant evidence of widely spread malignant process including lungs and liver and subcutaneous tissue. Pain appears to be somewhat better controlled today. No indication for acute surgical intervention.Discussed with patient and family prior to CT being available. Answered all questions. 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 Very difficult situation with somewhat poor prognosis. Fortunately no indication for acute surgical intervention. No evidence of infected necrosis that would require drain placement or surgical necrosectomy of the pancreas. Would be important to try and avoid major interventions in order to not delay life-prolonging chemotherapeutic intervention. With above assessment, I've recommended the followin. Continue aggressive medical management 2. Keep n.p.o. for now, but if evidence of flatus appears, may consider starting clear liquid diet 3. GI consultation appreciated 4. Fluid resuscitation 5. Does not need antimicrobials for the pancreas, but he may need antimicrobial coverage for other reasons 6. If it would make a difference in management, may consider percutaneous biopsy of segment 6 area of abnormality in the liver 7. Multidisciplinary tumor board presentation and discussions 8. Consideration for clinical trials once improved medically 9. Amylase and lipase checks tomorrow with labs 10. Agree with CT angio Thank you very much for having me involved in the care of this very pleasant patient and wonderful family. If you have any questions, please feel free to contact me at [phone]. Nature of presenting problem: High severity Please note that, given the extensive number of diagnoses or management options , the extensive amount and/or complexity of data needed to be reviewed, and high risk of complications and/or morbidity or mortality, this qualifies as high complexity type of decision-making. Disclaimer: Inadvertent spelling and grammatical errors are likely due to EHR/ dictation software use and do not reflect on the quality of delivered patient care. Also, please note that the electronic time recorded on this node does not necessarily reflect the actual time of the visit. 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 Status post CT-guided left flank subcutaneous nodule biopsy [facility] 01/12/2017. Comorbidities: 1. BMI 40.7 2. Small right pleural effusion with atelectasis and right lung base pneumonia. 3. Large B cell anaplastic lymphoma; status post chemo 1 month prior to presentation 4. Sepsis 5. Hyponatremia 6. Hypokalemia 7. Acute renal injury Subjective: No major events or complaints other than sig pain earlier today; no major current abd pain and under control with medications; no significant reported nausea or vomiting without diarrhea; no sob or cp; ? flatus; - BM; minimal to no activity Objective: Vitals: See below I's & O's: See below Exam: GENERAL: On exam, the patient was lying in bed and appeared to be comfortable and in no acute distress. ABDOMEN: Soft, minimal to no tenderness and nondistended. There are no peritoneal signs or guarding. SKIN: Skin appears to be pink and feels warm to touch. NEUROLOGIC: Patient is awake, alert, and follows commands appropriately. Labs: See below CT abdomen and pelvis with IV contrast [facility] 2016 IMPRESSION: extensive peripancreatic edema, increased. No evidence of organized fluid collection. Small volume ascites, increased. Heterogeneous mass-like areas of enhancement within the liver, mildly decreased in size over prior examinations. Further characterization with MRI abdomen with without contrast may be helpful. Numerous small irregular nodules throughout the lung bases, grossly unchanged. Small bilateral pleural effusions are present. Extensive subcutaneous infiltration, slightly progressed. Background subcutaneous edema is also likely present. Splenomegaly. Subtle focal hypoenhancing mass/poor corticomedullary distinction within the left kidney, unchanged. Exam/Review of Systems Vital Signs Vitals Vital Signs Date Time Temp Pulse Resp B/P Pulse Ox O2 Delivery O2 Flow Rate FiO2 01/19/17 16:17 100 4.0 01/19/17 16:17 106 20 Nasal Cannula 01/19/17 14:00 141/75 01/19/17 12:00 99.9 01/18/17 21:20 27 Intake and Output 01/18/17 01/18/17 01/19/17 15:00 23:00 07:00 Intake Total 1705.00 ml 1612 ml 1791 ml Output Total 1400 ml 550 ml 2050 ml Balance 305.00 ml 1062 ml -259 ml Results Result Diagram: 01/18/17 0515 01/19/17 0345 LENKA HERNANDEZ M.D. Jan 19, 2017 18:49
[2017-01-19] MEDS: METOPROLOL (XL) 25 MG TAB PO SCH (21:32)
[2017-01-20] VITALS (22 sets, daily range): BP systolic 110–171; BP diastolic 57–109; PULSE 106–141; RESP 12–25
[2017-01-20] MEDS: ALBUTEROL/IPRATROPIUM (NEB) 3 ML AMP HHN PRN ×5 (00:06→23:50)
[2017-01-20] MEDS: FENTAnyl 50 MCG/ML VIAL IV PRN ×8 (01:04→18:38)
[2017-01-20] MEDS: ACETAMINOPHEN 1000MG/100ML IV 100 ML IVPB SCH ×4 (01:04→17:19)
[2017-01-20] MEDS: ONDANSETRON 4 MG INJ IV SCH ×4 (01:04→17:19)
[2017-01-20] MEDS: PIPER-TAZO 3.375 GM IV (PMX) 100 ML IVPB SCH ×4 (01:05→17:20)
[2017-01-20 05:59] LABS: ABNORMAL IP MESSAGE 1; HEMATOCRIT 20.7 % (42.0-52.0); MEAN CORPUSCULAR HGB CONC 33.3 g/dl (32.0-37.0); MEAN PLATELET VOLUME 10.8 fl (7.4-10.4); PLATELET COUNT 133 10^3/UL (140-415); POSITIVE DIFF @See below; RED BLOOD COUNT 2.38 10^6/ul (4.70-6.10); RED CELL DISTRIBUTION WIDTH 17.1 % (11.5-14.5); WHITE BLOOD COUNT 10.2 10^3/ul (4.8-10.8)
[2017-01-20] MEDS ORDERED: CALCITRIOL 1 MCG INJ IV ONE (06:00)
[2017-01-20 06:27] LABS: HEMOGLOBIN 6.9 g/dl (14.0-18.0)
[2017-01-20 06:33] LABS: CALCIUM 6.6 mg/dl (8.4-10.2); CREATININE 0.46 mg/dl (0.61-1.24); MAGNESIUM 2.2 mg/dl (1.7-2.5); PHOSPHORUS 0.7 mg/dl (2.5-4.9); POTASSIUM 3.3 mmol/L (3.5-5.1)
[2017-01-20] MEDS: TRIMETHOPRIM/SULFAMETHOXAZOLE 25 ML in DEXTROSE 5% 500 ML IVPB SCH ×3 (06:42→21:58)
[2017-01-20 07:37] LABS: ANISOCYTOSIS 1+ (0-0); GIANT THROMBO% (M) 1 % (0-0); HYPOCHROMASIA 2+ (0-0); MICROCYTOSIS 1+ (0-0); MONOCYTES % (M) 2 % (0-11); PLATELET ESTIMATE DECREASED; SPHEROCYTES 1+ (0-0)
[2017-01-20] MEDS: FAMOTIDINE 20 MG INJ IV SCH ×2 (08:32→21:58)
[2017-01-20] MEDS: predniSONE 20 MG TAB PO SCH (08:36)
[2017-01-20] MEDS: HYDROmorphONE 50 MG in DEXTROSE 5% 45 ML IV SCH (08:58)
[2017-01-20] MEDS: SOD CHLORIDE 0.9% 1,000 ML IV SCH ×4 (10:59→21:58)
[2017-01-20] MEDS ORDERED: POTASSIUM PHOSPHATE 40 MEQ in SOD CHLORIDE 0.9% 250 ML IVPB ONE ×2 (11:00→15:00)
--- NOTE | 2017-01-20 11:40 | PN ---
Date/Time of Note Date/Time of Note DATE: 01/20/17 TIME: 11:36 Assessment/Plan VTE Prophylaxis VTE Prophylaxis Intervention: SCD's Lines/Catheters IV [facility] Type (from [facility]): PICC Line Central line still needed: Yes Urinary Cath still in place: Yes Reason Cath still needed: urinary retention Assessment/Plan Chief Complaint/Hosp Course 1. Acute renal injury 2. Right pleural effusion with atelectasis and right lung base pneumonia. 3. Large B cell anaplastic lymphoma; status post chemo 1 month 4. Sepsis 5. Electrolyte imbalance 6. Severe anemia 7. Morbid obesity Problems: Assessment/Plan 1. Start TPN tomorrow if pt does not have a flatus 2. Blood transfusion if HG below 8 Exam/Review of Systems Vital Signs Vitals Vital Signs Date Time Temp Pulse Resp B/P Pulse Ox O2 Delivery O2 Flow Rate FiO2 01/20/17 08:00 123 01/20/17 07:59 Nasal Cannula 3.0 01/20/17 07:45 22 96 01/20/17 07:00 145/109 01/20/17 05:44 33 01/20/17 00:00 97.9 Intake and Output 01/19/17 01/19/17 01/20/17 15:00 23:00 07:00 Intake Total 1873 ml 1548 ml 1929 ml Output Total 850 ml 650 ml 1250 ml Balance 1023 ml 898 ml 679 ml Results Result Diagram: 01/20/17 0427 01/20/17 0427 Results 24 hrs Laboratory Tests Test 01/20/17 04:27 White Blood Count 10.2 # Red Blood Count 2.38 #L Hemoglobin 6.9 *L Hematocrit 20.7 L Mean Corpuscular Volume 87.0 Mean Corpuscular Hemoglobin 29.0 Mean Corpuscular Hemoglobin Concent 33.3 Red Cell Distribution Width 17.1 H Platelet Count 133 L Mean Platelet Volume 10.8 H Neutrophils % Segmented Neutrophils % (Manual) 92 H Band Neutrophils % (Manual) 6 H Lymphocytes % Monocytes % Monocytes % (Manual) 2 Eosinophils % Basophils % Nucleated Red Blood Cells % 0.0 Neutrophils # Neutrophils # (Manual) 9.4 H Band Neutrophils # 0.6 Lymphocytes # Monocytes # Absolute Monocytes (Manual) 0.2 L Eosinophils # Basophils # Nucleated Red Blood Cells # Thrombocytosis 1 H Platelet Estimate DECREASED Hypochromasia 2+ Anisocytosis 1+ Microcytosis 1+ Spherocytes 1+ Sodium Level 135 Potassium Level 3.3 L Chloride Level 98 Carbon Dioxide Level 27 Anion Gap 13 Blood Urea Nitrogen 6 L Creatinine 0.46 L Glucose Level 84 Calcium Level 6.6 L Phosphorus Level 0.7 L Magnesium Level 2.2 Medications Medications Current Medications Docusate Sodium (Colace) 100 mg Q12H PRN PO CONSTIPATION Last administered on 10:46; Admin Dose 100 MG; Start 01/09/17 at 19:30 Magnesium Hydroxide (Milk Of Mag) 30 ml DAILY PRN PO CONSTIPATION; Start at 19:30 Sodium Biphosphate/ Sodium Phosphate (Fleet Enema) 133 ml DAILY PRN [place] CONSTIPATION; Start 01/09/17 at 19:30 Heparin Sodium (Porcine) 5000 unit 5,000 unit Q12 SC Last administered on 09:43; Admin Dose 5,000 UNIT; Start 01/09/17 at 21:00; Status Future Hold Piperacillin Sod/ Tazobactam Sod (Zosyn 3.375gm/ 100 ml (Pmx)) 100 ml @ 200 mls /hr Q6 IVPB Last administered on 01/20/17 06:31; Admin Dose 200 MLS/HR; Start 01/10/17 at 00:00 Nitroglycerin (Nitroglycerin (Sl Tab) 0.4 Mg) 1 tab Q5M PRN SL ANGINA; Start at 19:30 Metoprolol Succinate (Toprol Xl) 25 mg QHS PO Last administered on 01/19/17 21 :32; Admin Dose 25 MG; Start 01/09/17 at 21:00 Miscellaneous Information (Pending Santyl Order For Wound Care) This patient aranda... PRN PRN XX WOUND CARE; Start 01/10/17 at 03:30 Ondansetron HCl 4 mg 4 mg Q6 IV Last administered on 01/20/17 11:07; Admin Dose 4 MG; Start 01/10/17 at 15:30 Acetaminophen (Ofirmev 1000mg/ 100ml Iv) 100 ml @ 400 mls/hr Q6 IVPB Last administered on 01/20/17 11:08; Admin Dose 400 MLS/HR; Start 01/10/17 at 16:30 IV Flush 10 ml 10 ml PRN PRN IV IV PROTOCOL; Start 01/10/17 at 20:30 Sodium Chloride (NS) 1,000 ml @ 125 mls/hr Q8H IV Last administered on 22:42; Admin Dose 125 MLS/HR; Start 01/11/17 at 09:00 Ergocalciferol (Drisdol) 50,000 unit Sa@16 PO Last administered on 01/14/17 16: 43; Admin Dose 50,000 UNIT; Start 01/14/17 at 16:00 Prednisone (Prednisone) 10 mg DAILY PO Last administered on 01/20/17 08:36; Admin Dose 10 MG; Start 01/15/17 at 09:00 Famotidine 20 mg 20 mg BID IV Last administered on 01/20/17 08:32; Admin Dose 20 MG; Start 01/17/17 at 21:00 Levofloxacin/ Dextrose (Levaquin 750 Mg/ D5W 150 ml (Pmx)) 150 ml @ 100 mls/hr Q24H IVPB Last administered on 01/19/17 18:49; Admin Dose 100 MLS/HR; Start at 16:00 Fentanyl 125 mcg 125 mcg Q2H PRN IV PAIN Last administered on 01/20/17 10:39; Admin Dose 125 MCG; Start 01/18/17 at 17:00 Trimethoprim/ Sulfamethoxazole 25 ml/Dextrose 525 ml @ 343.333 mls/hr Q8 IVPB Last administered on 01/20/17 06:42; Admin Dose 343.333 MLS/HR; Start 01/19/17 at 13:30 Potassium Phosphate/Sodium Chloride (K Phos (Meq)/NS) 259.0909 ml @ 64.773 m... ONCE ONCE IVPB ; Start 01/20/17 at 11:00; Stop 01/20/17 at 14:59 MOISES WEAVER Jan 20, 2017 11:40
[2017-01-20 12:22] LABS: ABNORMAL IP MESSAGE 1; BASOPHILS % 0.2 % (0.0-2.0); EOSINOPHILS % 0.1 % (0.0-7.0); HEMATOCRIT 19.7 % (42.0-52.0); LYMPHOCYTES % 0.4 % (15.0-51.0); MEAN CORPUSCULAR HEMOGLOBIN 27.9 pg (29.0-33.0); MEAN CORPUSCULAR HGB CONC 32.5 g/dl (32.0-37.0); MEAN PLATELET VOLUME 11.1 fl (7.4-10.4); MONOCYTE # 0.3 10^3/ul (0.3-0.9); MONOCYTES % 3.5 % (0.0-11.0); NEUTROPHIL # 8.6 10^3/ul (1.6-7.5); PLATELET COUNT 136 10^3/UL (140-415); POSITIVE DIFF @See below; RED BLOOD COUNT 2.29 10^6/ul (4.70-6.10); RED CELL DISTRIBUTION WIDTH 17.3 % (11.5-14.5); WHITE BLOOD COUNT 9.1 10^3/ul (4.8-10.8)
[2017-01-20 12:32] LABS: HEMOGLOBIN 6.4 g/dl (14.0-18.0)
--- NOTE | 2017-01-20 14:01 | PN ---
Date/Time of Note Date/Time of Note DATE: 01/20/17 TIME: 13:53 Assessment/Plan VTE Prophylaxis VTE Prophylaxis Intervention: SCD's Lines/Catheters IV [facility] Type (from [facility]): PICC Line Central line still needed: Yes Urinary Cath still in place: No Assessment/Plan Assessment/Plan Assessment: * Anemia * Acute pancreatitis, etiology unclear * Mild abnormality liver function tests with no evidence of biliary pathology * Anaplastic B-cell lymphoma/aggressive behavior * Sepsis/pneumonia/improved Plan: * Transfuse as needed * Monitor hemoglobin and hematocrit daily * Continue monitor lipase and abdominal pain * Once abdominal pain subsides made reintroduce diet * case discussed with Dr Hewitt * Further orders will depend on clinical course Subjective 24 Hr Interval Summary Free Text/Dictation * Course reviewed with RN * Patient seen and examined * Hemoglobin 6.4 * Improvement of abdominal pain per patient * CT scan Constitutional: other (oriented) Exam/Review of Systems Vital Signs Vitals Vital Signs Date Time Temp Pulse Resp B/P Pulse Ox O2 Delivery O2 Flow Rate FiO2 01/20/17 12:00 99.3 119 19 157/75 95 01/20/17 08:00 Nasal Cannula 3.0 01/20/17 05:44 33 Intake and Output 01/19/17 01/19/17 01/20/17 15:00 23:00 07:00 Intake Total 1873 ml 1548 ml 1929 ml Output Total 850 ml 650 ml 1250 ml Balance 1023 ml 898 ml 679 ml Exam Constitutional: alert, oriented Head: normocephalic ENMT: mucosa pink and moist Neck: non-tender, supple Respiratory: diminished breath sounds, normal air movement Cardiovascular: nl pulses, regular rate and rhythm Gastrointestinal: ascites, bowel sounds, distended, soft, tender, No rebound or guarding Musculoskeletal: muscle weakness, swelling Extremities: edema, pitting pedal edema Neurological: nl mental status, nl speech Skin: rash or lesions, No nl turgor Lymph: nl lymph nodes Results Result Diagram: 01/20/17 0926 01/20/17 0427 Results 24 hrs Laboratory Tests Test 01/20/17 04:27 01/20/17 09:26 White Blood Count 10.2 # 9.1 Red Blood Count 2.38 #L 2.29 L Hemoglobin 6.9 *L 6.4 *L Hematocrit 20.7 L 19.7 L Mean Corpuscular Volume 87.0 86.0 Mean Corpuscular Hemoglobin 29.0 27.9 L Mean Corpuscular Hemoglobin Concent 33.3 32.5 Red Cell Distribution Width 17.1 H 17.3 H Platelet Count 133 L 136 L Mean Platelet Volume 10.8 H 11.1 H Neutrophils % 94.0 H Segmented Neutrophils % (Manual) 92 H Band Neutrophils % (Manual) 6 H Lymphocytes % 0.4 L Monocytes % 3.5 Monocytes % (Manual) 2 Eosinophils % 0.1 Basophils % 0.2 Nucleated Red Blood Cells % 0.0 0.0 Neutrophils # 8.6 H Neutrophils # (Manual) 9.4 H Band Neutrophils # 0.6 Lymphocytes # 0.0 L Monocytes # 0.3 Absolute Monocytes (Manual) 0.2 L Eosinophils # 0.0 Basophils # 0.0 Nucleated Red Blood Cells # 0.0 Thrombocytosis 1 H Platelet Estimate DECREASED Hypochromasia 2+ Anisocytosis 1+ Microcytosis 1+ Spherocytes 1+ Sodium Level 135 Potassium Level 3.3 L Chloride Level 98 Carbon Dioxide Level 27 Anion Gap 13 Blood Urea Nitrogen 6 L Creatinine 0.46 L Glucose Level 84 Calcium Level 6.6 L Phosphorus Level 0.7 L Magnesium Level 2.2 Medications Medications Current Medications Docusate Sodium (Colace) 100 mg Q12H PRN PO CONSTIPATION Last administered on 10:46; Admin Dose 100 MG; Start 01/09/17 at 19:30 Magnesium Hydroxide (Milk Of Mag) 30 ml DAILY PRN PO CONSTIPATION; Start at 19:30 Sodium Biphosphate/ Sodium Phosphate (Fleet Enema) 133 ml DAILY PRN [place] CONSTIPATION; Start 01/09/17 at 19:30 Heparin Sodium (Porcine) 5000 unit 5,000 unit Q12 SC Last administered on 09:43; Admin Dose 5,000 UNIT; Start 01/09/17 at 21:00; Status Future Hold Piperacillin Sod/ Tazobactam Sod (Zosyn 3.375gm/ 100 ml (Pmx)) 100 ml @ 200 mls /hr Q6 IVPB Last administered on 01/20/17 11:47; Admin Dose 200 MLS/HR; Start 01/10/17 at 00:00 Nitroglycerin (Nitroglycerin (Sl Tab) 0.4 Mg) 1 tab Q5M PRN SL ANGINA; Start at 19:30 Metoprolol Succinate (Toprol Xl) 25 mg QHS PO Last administered on 01/19/17 21 :32; Admin Dose 25 MG; Start 01/09/17 at 21:00 Miscellaneous Information (Pending Santyl Order For Wound Care) This patient aranda... PRN PRN XX WOUND CARE; Start 01/10/17 at 03:30 Ondansetron HCl 4 mg 4 mg Q6 IV Last administered on 01/20/17 11:07; Admin Dose 4 MG; Start 01/10/17 at 15:30 Acetaminophen (Ofirmev 1000mg/ 100ml Iv) 100 ml @ 400 mls/hr Q6 IVPB Last administered on 01/20/17 11:08; Admin Dose 400 MLS/HR; Start 01/10/17 at 16:30 IV Flush 10 ml 10 ml PRN PRN IV IV PROTOCOL; Start 01/10/17 at 20:30 Sodium Chloride (NS) 1,000 ml @ 125 mls/hr Q8H IV Last administered on 11:46; Admin Dose 125 MLS/HR; Start 01/11/17 at 09:00 Ergocalciferol (Drisdol) 50,000 unit Sa@16 PO Last administered on 01/14/17 16: 43; Admin Dose 50,000 UNIT; Start 01/14/17 at 16:00 Prednisone (Prednisone) 10 mg DAILY PO Last administered on 01/20/17 08:36; Admin Dose 10 MG; Start 01/15/17 at 09:00 Famotidine 20 mg 20 mg BID IV Last administered on 01/20/17 08:32; Admin Dose 20 MG; Start 01/17/17 at 21:00 Levofloxacin/ Dextrose (Levaquin 750 Mg/ D5W 150 ml (Pmx)) 150 ml @ 100 mls/hr Q24H IVPB Last administered on 01/19/17 18:49; Admin Dose 100 MLS/HR; Start at 16:00 Fentanyl 125 mcg 125 mcg Q2H PRN IV PAIN Last administered on 01/20/17 12:37; Admin Dose 125 MCG; Start 01/18/17 at 17:00 Trimethoprim/ Sulfamethoxazole 25 ml/Dextrose 525 ml @ 343.333 mls/hr Q8 IVPB Last administered on 01/20/17 06:42; Admin Dose 343.333 MLS/HR; Start 01/19/17 at 13:30 Potassium Phosphate/Sodium Chloride (K Phos (Meq)/NS) 259.0909 ml @ 64.773 m... ONCE ONCE IVPB Last administered on 01/20/17 11:46; Admin Dose 64.773 MLS/HR; Start 01/20/17 at 11:00; Stop 01/20/17 at 14:59 SELENA ROY NP Jan 20, 2017 14:01
--- NOTE | 2017-01-20 14:26 | PN ---
Date/Time of Note Date/Time of Note DATE: 01/20/17 TIME: 14:23 Assessment/Plan Lines/Catheters IV Catheter Type (from Nrsg): PICC Line Sierra in Place (from Nrsg): No Assessment/Plan Assessment/Plan [facility] Progress Note Date of Service: 01/20/2017 Place of service: [facility] ICU Today's Assessment & Plan: Overall stable with pancreatitis, which seems to be mild on labs. Pain appears to be somewhat better controlled today. No indication for acute surgical intervention. Discussed with patient and with Dr. Santos. Answered all questions. 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 Very difficult situation with somewhat poor prognosis. Fortunately no indication for acute surgical intervention. No evidence of infected necrosis that would require drain placement or surgical necrosectomy of the pancreas. Would be important to try and avoid major interventions in order to not delay life-prolonging chemotherapeutic intervention. With above assessment, I've recommended the followin. Continue aggressive medical management 2. Keep n.p.o. for now, but if evidence of flatus appears, may consider starting clear liquid diet 3. GI consultation appreciated 4. Fluid resuscitation 5. Does not need antimicrobials for the pancreas, but he may need antimicrobial coverage for other reasons 6. If it would make a difference in management, may consider percutaneous biopsy of segment 6 area of abnormality in the liver 7. Multidisciplinary tumor board presentation and discussions 8. Consideration for clinical trials once improved medically 9. Amylase and lipase checks tomorrow with labs 10. Agree with CT angio Thank you very much for having me involved in the care of this very pleasant patient and wonderful family. If you have any questions, please feel free to contact me at [phone]. Nature of presenting problem: High severity Please note that, given the extensive number of diagnoses or management options , the extensive amount and/or complexity of data needed to be reviewed, and high risk of complications and/or morbidity or mortality, this qualifies as high complexity type of decision-making. Disclaimer: Inadvertent spelling and grammatical errors are likely due to EHR/ dictation software use and do not reflect on the quality of delivered patient care. Also, please note that the electronic time recorded on this node does not necessarily reflect the actual time of the visit. 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 Status post CT-guided left flank subcutaneous nodule biopsy [facility] 01/12/2017. Comorbidities: 1. BMI 40.7 2. Small right pleural effusion with atelectasis and right lung base pneumonia. 3. Large B cell anaplastic lymphoma; status post chemo 1 month prior to presentation 4. Sepsis 5. Hyponatremia 6. Hypokalemia 7. Acute renal injury Subjective: No major events or complaints; no major current abd pain and under control with medications; no significant reported nausea or vomiting without diarrhea; no sob or cp; ? flatus; - BM; minimal to no activity Objective: Vitals: See below I's & O's: See below Exam: GENERAL: On exam, the patient was lying in bed and appeared to be comfortable and in no acute distress. ABDOMEN: Soft, minimal to no tenderness and nondistended. There are no peritoneal signs or guarding. SKIN: Skin appears to be pink and feels warm to touch. NEUROLOGIC: Patient is awake, alert, and follows commands appropriately. Labs: See below CT abdomen and pelvis with IV contrast [facility] 2016 IMPRESSION: extensive peripancreatic edema, increased. No evidence of organized fluid collection. Small volume ascites, increased. Heterogeneous mass-like areas of enhancement within the liver, mildly decreased in size over prior examinations. Further characterization with MRI abdomen with without contrast may be helpful. Numerous small irregular nodules throughout the lung bases, grossly unchanged. Small bilateral pleural effusions are present. Extensive subcutaneous infiltration, slightly progressed. Background subcutaneous edema is also likely present. Splenomegaly. Subtle focal hypoenhancing mass/poor corticomedullary distinction within the left kidney, unchanged. Exam/Review of Systems Vital Signs Vitals Vital Signs Date Time Temp Pulse Resp B/P Pulse Ox O2 Delivery O2 Flow Rate FiO2 01/20/17 12:00 99.3 119 19 157/75 95 01/20/17 08:00 Nasal Cannula 3.0 8/11/17 05:44 33 Intake and Output 01/19/17 01/19/17 01/20/17 15:00 23:00 07:00 Intake Total 1873 ml 1548 ml 1929 ml Output Total 850 ml 650 ml 1250 ml Balance 1023 ml 898 ml 679 ml Results Result Diagram: 01/20/17 0926 01/20/17 0427 LENKA HERNANDEZ M.D. Jan 20, 2017 14:25
--- NOTE | 2017-01-20 14:33 | CONS ---
Date/Time of Note Date/Time of Note DATE: 01/20/17 TIME: 14:30 Consult Date/Type/Reason Admit Date/Time Jan 09, 2017 at 19:08 Initial Consult Date 01/15/17 Type of Consultation: Palliative care Ordering Provider: YAO RAHMAN Objective Vital Signs Date Time Temp Pulse Resp B/P Pulse Ox O2 Delivery O2 Flow Rate FiO2 01/20/17 12:00 99.3 119 19 157/75 95 01/20/17 08:00 Nasal Cannula 3.0 01/20/17 05:44 33 Intake and Output 01/19/17 01/19/17 01/20/17 14:59 22:59 06:59 Intake Total 1655 ml 2018 ml 1729 ml Output Total 1450 ml 650 ml 1250 ml Balance 205 ml 1368 ml 479 ml Results/Medications Result Diagram: 01/20/17 0926 01/20/17 0427 Results 24 hrs Laboratory Tests Test 01/20/17 04:27 01/20/17 09:26 White Blood Count 10.2 # 9.1 Red Blood Count 2.38 #L 2.29 L Hemoglobin 6.9 *L 6.4 *L Hematocrit 20.7 L 19.7 L Mean Corpuscular Volume 87.0 86.0 Mean Corpuscular Hemoglobin 29.0 27.9 L Mean Corpuscular Hemoglobin Concent 33.3 32.5 Red Cell Distribution Width 17.1 H 17.3 H Platelet Count 133 L 136 L Mean Platelet Volume 10.8 H 11.1 H Neutrophils % 94.0 H Segmented Neutrophils % (Manual) 92 H Band Neutrophils % (Manual) 6 H Lymphocytes % 0.4 L Monocytes % 3.5 Monocytes % (Manual) 2 Eosinophils % 0.1 Basophils % 0.2 Nucleated Red Blood Cells % 0.0 0.0 Neutrophils # 8.6 H Neutrophils # (Manual) 9.4 H Band Neutrophils # 0.6 Lymphocytes # 0.0 L Monocytes # 0.3 Absolute Monocytes (Manual) 0.2 L Eosinophils # 0.0 Basophils # 0.0 Nucleated Red Blood Cells # 0.0 Thrombocytosis 1 H Platelet Estimate DECREASED Hypochromasia 2+ Anisocytosis 1+ Microcytosis 1+ Spherocytes 1+ Sodium Level 135 Potassium Level 3.3 L Chloride Level 98 Carbon Dioxide Level 27 Anion Gap 13 Blood Urea Nitrogen 6 L Creatinine 0.46 L Glucose Level 84 Calcium Level 6.6 L Phosphorus Level 0.7 L Magnesium Level 2.2 Medications Current Medications Docusate Sodium (Colace) 100 mg Q12H PRN PO CONSTIPATION Last administered on 10:46; Admin Dose 100 MG; Start 01/09/17 at 19:30 Magnesium Hydroxide (Milk Of Mag) 30 ml DAILY PRN PO CONSTIPATION; Start at 19:30 Sodium Biphosphate/ Sodium Phosphate (Fleet Enema) 133 ml DAILY PRN [place] CONSTIPATION; Start 01/09/17 at 19:30 Heparin Sodium (Porcine) 5000 unit 5,000 unit Q12 SC Last administered on 09:43; Admin Dose 5,000 UNIT; Start 01/09/17 at 21:00; Status Future Hold Piperacillin Sod/ Tazobactam Sod (Zosyn 3.375gm/ 100 ml (Pmx)) 100 ml @ 200 mls /hr Q6 IVPB Last administered on 01/20/17 11:47; Admin Dose 200 MLS/HR; Start 01/10/17 at 00:00 Nitroglycerin (Nitroglycerin (Sl Tab) 0.4 Mg) 1 tab Q5M PRN SL ANGINA; Start at 19:30 Metoprolol Succinate (Toprol Xl) 25 mg QHS PO Last administered on 01/19/17 21 :32; Admin Dose 25 MG; Start 01/09/17 at 21:00 Miscellaneous Information (Pending Santyl Order For Wound Care) This patient aranda... PRN PRN XX WOUND CARE; Start 01/10/17 at 03:30 Ondansetron HCl 4 mg 4 mg Q6 IV Last administered on 01/20/17 11:07; Admin Dose 4 MG; Start 01/10/17 at 15:30 Acetaminophen (Ofirmev 1000mg/ 100ml Iv) 100 ml @ 400 mls/hr Q6 IVPB Last administered on 01/20/17 11:08; Admin Dose 400 MLS/HR; Start 01/10/17 at 16:30 IV Flush 10 ml 10 ml PRN PRN IV IV PROTOCOL; Start 01/10/17 at 20:30 Sodium Chloride (NS) 1,000 ml @ 125 mls/hr Q8H IV Last administered on 11:46; Admin Dose 125 MLS/HR; Start 01/11/17 at 09:00 Ergocalciferol (Drisdol) 50,000 unit Sa@16 PO Last administered on 01/14/17 16: 43; Admin Dose 50,000 UNIT; Start 01/14/17 at 16:00 Prednisone (Prednisone) 10 mg DAILY PO Last administered on 01/20/17 08:36; Admin Dose 10 MG; Start 01/15/17 at 09:00 Famotidine 20 mg 20 mg BID IV Last administered on 01/20/17 08:32; Admin Dose 20 MG; Start 01/17/17 at 21:00 Levofloxacin/ Dextrose (Levaquin 750 Mg/ D5W 150 ml (Pmx)) 150 ml @ 100 mls/hr Q24H IVPB Last administered on 01/19/17 18:49; Admin Dose 100 MLS/HR; Start at 16:00 Fentanyl 125 mcg 125 mcg Q2H PRN IV PAIN Last administered on 01/20/17 14:20; Admin Dose 125 MCG; Start 01/18/17 at 17:00 Trimethoprim/ Sulfamethoxazole 25 ml/Dextrose 525 ml @ 343.333 mls/hr Q8 IVPB Last administered on 01/20/17 14:13; Admin Dose 343.333 MLS/HR; Start 01/19/17 at 13:30 Potassium Phosphate/Sodium Chloride (K Phos (Meq)/NS) 259.0909 ml @ 64.773 m... ONCE ONCE IVPB Last administered on 01/20/17 11:46; Admin Dose 64.773 MLS/HR; Start 01/20/17 at 11:00; Stop 01/20/17 at 14:59 Assessment/Plan Chief Complaint/Hosp Course IMP: 1. Severe pancreatitis--patient more comfortable today. 2. Severe HypoCa++--2/2 #1 continue endocrinology recommendations for continued 3. UTI 4. Anaplastic B-cell lymphoma 5. RAMU, improved 6. Pulmonary nodular opacities--c/w metastatic lymphoma 7. Anemia likely multifactorial. RECS: 1. Continue fluids per nephrology 2. CT abdomen noted. 3. DC IV calcium 4. Pain control via [employer] 5. Follow lytes 6. Surgery recommendations advance diet per surgery recommendations 7.PT evaluation out of bed if tolerated 8. Consider transfusion 1 unit packed red blood cells Discussed with primary team. Problems: BECKA DINH MD[facility] Jan 20, 2017 14:33
--- NOTE | 2017-01-20 14:56 | CONS ---
Date/Time of Note Date/Time of Note DATE: 01/20/17 TIME: 14:54 Assessment/Plan Assessment/Plan Chief Complaint/Hosp Course 31-year-old gentleman with a history of a non-Hodgkin's large B cell anaplastic lymphoma diagnosed roughly 18 months ago. He came into the hospital with abdominal pain but at that time had a low lipase level. At that time his calciums were normal his thyroid function was normal he had on appropriate serum cortisol despite having been on tapering dosages of prednisone as an outpatient. During the course of hospitalization his abdominal symptoms changed and Dr. Rahman reordered his lipase which was markedly elevated. Because of this he is been added the diagnosis of acute pancreatitis. The patient does not consume alcohol and the best of her knowledge has not been on any medications and I do this however he was recently placed on Bactrim. I have contacted [facility] to get the blood test reports. While his serum calcium was 5.3 with a low ionized calcium he had a PTH in the mid 20s. This is an inappropriately low normal PTH in the setting of severe hypocalcemia. This indicates hypo-parathyroidism. The patient informs me there is no prior history of this. Since he has not had neck surgery this leaves us to look at what other type of destructive process of the parathyroids could be going on here. Problems: (1) Hypophosphatemia Status: Acute Comment: This probably reaction from the medications were using to try and control the hypocalcemia. We will give him some IV phosphorus. Ideally would like to do this with a GI tract but he is not using his GI tract at present. (2) Hypoparathyroidism, unspecified Status: Acute Comment: Continue with vitamin D and IV calcium. Patient is equilibrating. Please note if TPN is started this will make it a bit easier to balance. Approaching the time when I do not need to give the regular high dosages of calcitriol (3) Acute pancreatitis Status: Acute Comment: As per primary team and GI. This appears to still be rather significant issue Qualifiers: Pancreatitis type: unspecified pancreatitis type Acute pancreatitis complication: uninfected necrosis Qualified Code: K85.91 - Acute pancreatitis with uninfected necrosis, unspecified pancreatitis type (4) Hypokalemia Status: Acute Comment: Correct parenterally Consultation Date/Type/Reason Admit Date/Time Jan 09, 2017 at 19:08 Initial Consult Date 01/15/17 Type of Consultation: Endocrinology Reason for Consultation Hypoparathyroidism with hypocalcemia Referring Provider: YAO RAHMAN 24 HR Interval Summary Free Text/Dictation Patient is minimally improved in terms of pain however he is not taking p.o. Exam/Review of Systems Vital Signs Vitals Vital Signs Date Time Temp Pulse Resp B/P Pulse Ox O2 Delivery O2 Flow Rate FiO2 01/20/17 14:00 117 22 131/73 96 01/20/17 12:00 99.3 01/20/17 08:00 Nasal Cannula 3.0 01/20/17 05:44 33 Intake and Output 01/19/17 01/19/17 01/20/17 15:00 23:00 07:00 Intake Total 1873 ml 1548 ml 1929 ml Output Total 850 ml 650 ml 1250 ml Balance 1023 ml 898 ml 679 ml Exam No changes Results Result Diagram: 01/20/17 0926 01/20/17 0427 Results 24 hrs Laboratory Tests Test 01/20/17 04:27 01/20/17 09:26 White Blood Count 10.2 # 9.1 Red Blood Count 2.38 #L 2.29 L Hemoglobin 6.9 *L 6.4 *L Hematocrit 20.7 L 19.7 L Mean Corpuscular Volume 87.0 86.0 Mean Corpuscular Hemoglobin 29.0 27.9 L Mean Corpuscular Hemoglobin Concent 33.3 32.5 Red Cell Distribution Width 17.1 H 17.3 H Platelet Count 133 L 136 L Mean Platelet Volume 10.8 H 11.1 H Neutrophils % 94.0 H Segmented Neutrophils % (Manual) 92 H Band Neutrophils % (Manual) 6 H Lymphocytes % 0.4 L Monocytes % 3.5 Monocytes % (Manual) 2 Eosinophils % 0.1 Basophils % 0.2 Nucleated Red Blood Cells % 0.0 0.0 Neutrophils # 8.6 H Neutrophils # (Manual) 9.4 H Band Neutrophils # 0.6 Lymphocytes # 0.0 L Monocytes # 0.3 Absolute Monocytes (Manual) 0.2 L Eosinophils # 0.0 Basophils # 0.0 Nucleated Red Blood Cells # 0.0 Thrombocytosis 1 H Platelet Estimate DECREASED Hypochromasia 2+ Anisocytosis 1+ Microcytosis 1+ Spherocytes 1+ Sodium Level 135 Potassium Level 3.3 L Chloride Level 98 Carbon Dioxide Level 27 Anion Gap 13 Blood Urea Nitrogen 6 L Creatinine 0.46 L Glucose Level 84 Calcium Level 6.6 L Phosphorus Level 0.7 L Magnesium Level 2.2 Medications Medications Current Medications Docusate Sodium (Colace) 100 mg Q12H PRN PO CONSTIPATION Last administered on 10:46; Admin Dose 100 MG; Start 01/09/17 at 19:30 Magnesium Hydroxide (Milk Of Mag) 30 ml DAILY PRN PO CONSTIPATION; Start at 19:30 Sodium Biphosphate/ Sodium Phosphate (Fleet Enema) 133 ml DAILY PRN [place] CONSTIPATION; Start 01/09/17 at 19:30 Heparin Sodium (Porcine) 5000 unit 5,000 unit Q12 SC Last administered on 09:43; Admin Dose 5,000 UNIT; Start 01/09/17 at 21:00; Status Future Hold Piperacillin Sod/ Tazobactam Sod (Zosyn 3.375gm/ 100 ml (Pmx)) 100 ml @ 200 mls /hr Q6 IVPB Last administered on 01/20/17 11:47; Admin Dose 200 MLS/HR; Start 01/10/17 at 00:00 Nitroglycerin (Nitroglycerin (Sl Tab) 0.4 Mg) 1 tab Q5M PRN SL ANGINA; Start at 19:30 Metoprolol Succinate (Toprol Xl) 25 mg QHS PO Last administered on 01/19/17 21 :32; Admin Dose 25 MG; Start 01/09/17 at 21:00 Miscellaneous Information (Pending [facility] Order For Wound Care) This patient aranda... PRN PRN XX WOUND CARE; Start 01/10/17 at 03:30 Ondansetron HCl 4 mg 4 mg Q6 IV Last administered on 01/20/17 11:07; Admin Dose 4 MG; Start 01/10/17 at 15:30 Acetaminophen (Ofirmev 1000mg/ 100ml Iv) 100 ml @ 400 mls/hr Q6 IVPB Last administered on 01/20/17 11:08; Admin Dose 400 MLS/HR; Start 01/10/17 at 16:30 IV Flush 10 ml 10 ml PRN PRN IV IV PROTOCOL; Start 01/10/17 at 20:30 Sodium Chloride (NS) 1,000 ml @ 125 mls/hr Q8H IV Last administered on 11:46; Admin Dose 125 MLS/HR; Start 01/11/17 at 09:00 Ergocalciferol (Drisdol) 50,000 unit Sa@16 PO Last administered on 01/14/17 16: 43; Admin Dose 50,000 UNIT; Start 01/14/17 at 16:00 Prednisone (Prednisone) 10 mg DAILY PO Last administered on 01/20/17 08:36; Admin Dose 10 MG; Start 01/15/17 at 09:00 Famotidine 20 mg 20 mg BID IV Last administered on 01/20/17 08:32; Admin Dose 20 MG; Start 01/17/17 at 21:00 Levofloxacin/ Dextrose (Levaquin 750 Mg/ D5W 150 ml (Pmx)) 150 ml @ 100 mls/hr Q24H IVPB Last administered on 01/19/17 18:49; Admin Dose 100 MLS/HR; Start at 16:00 Fentanyl 125 mcg 125 mcg Q2H PRN IV PAIN Last administered on 01/20/17 14:20; Admin Dose 125 MCG; Start 01/18/17 at 17:00 Trimethoprim/ Sulfamethoxazole 25 ml/Dextrose 525 ml @ 343.333 mls/hr Q8 IVPB Last administered on 01/20/17 14:13; Admin Dose 343.333 MLS/HR; Start 01/19/17 at 13:30 Potassium Phosphate/Sodium Chloride (K Phos (Meq)/NS) 259.0909 ml @ 64.773 m... ONCE ONCE IVPB Last administered on 01/20/17 11:46; Admin Dose 64.773 MLS/HR; Start 01/20/17 at 11:00; Stop 01/20/17 at 14:59 YOLY NASCIMENTO MD Jan 20, 2017 14:56
[2017-01-20] MEDS ORDERED: POTASSIUM CHLORIDE 250 ML IVPB SCH (15:00)
[2017-01-20] MEDS: LEVOFLOXACIN 750MG/D5W (PMX) 150 ML IVPB SCH (15:40)
[2017-01-20] MEDS ORDERED: CALCIUM GLUCONATE 10% 2 GM in SOD CHLORIDE 0.9% 100 ML IVPB ONE (17:00)
[2017-01-20 17:58] LABS: CALCIUM 6.7 mg/dl (8.4-10.2); CREATININE 0.46 mg/dl (0.61-1.24); POTASSIUM 3.8 mmol/L (3.5-5.1)
--- NOTE | 2017-01-20 20:14 | CONS ---
Date/Time of Note Date/Time of Note DATE: 01/20/17 TIME: 20:10 Assessment/Plan Assessment/Plan Chief Complaint/Hosp Course ID PROGRESS NOTE CURRENT ABX=> + Zosyn #9 + Levaquin IV #3 + Bactrim IV #2 Vanco IV #8 -> DC 8/10 Bactrim po (RX per his HemeOnc)-> dc 8/6 24H INTERVAL SUMMARY * A/A/O => WBC normalized after ABX adjusted to Levaquin + Bactrim per wound cx sensitivitis * WBC was elevated > 15.5 (01/18)=> PICC line RUEXT; left side flank/hip/leg decub = infected * Aranda been spiking fevers 101.+ - 103.0 => ABX adjusted now afebrile 48H w/low grade temps * BCx via picc ordered 01/18 =>(-) 24H * 01/19/17 CXR: Persistent patchy areas of consolidation in the right upper and lower lobes. * 01/14/17 CT: IMPRESSION: 1. Small right pleural effusion with atelectasis and right lung base pneumonia. * Progressive left flank and left abd and left leg wound stage III * WOUND CULTURE Organism 1 CITROBACTER FREUNDII Organism 2 ENTEROCOCCUS SPECIES Organism 3 CORYNEBACTERIUM SPECIES Organism 4 STENOTROPHOMONAS MALTOPHILIA C FREUNDII ENT SPS STENMAL M.I.C. RX M.I.C. RX M.I.C. RX --------- --- --------- --- --------- --- AMPICILLIN <=2 S CEFOTAXIME S CIPROFLOXACIN <=0.25 S GENTAMICIN <=1 S LEVOFLOXACIN 0.5 S >=8 R PENICILLIN-G 8 S VANCOMYCIN 1 S TOBRAMYCIN <=1 S TRIMETHOPRIM/SULFAMETHOXAZOLE >=320 R 0.75 S CORYN SPS Zone Size RX --------- --- * AMPICILLIN S * CEFAZOLIN S * CEFOTAXIME S * CEFUROXIME S * CIPROFLOXACIN S * CLINDAMYCIN R * ERYTHROMYCIN R * PENICILLIN S * VANCOMYCIN S EXAM GENERAL: 31 yo M obese HEENT:Unremarkable NECK: (Supple CHEST: Rise symmetrical without dyspnea on observation ABDOMEN: Soft, EXTREMITIES: Warm, moves extremities SKIN: Tattoos ID ASSESSMENT: 31 yo morbid obese M admit with: 1. Anaplastic B-cell Lymphoma=> Pt's last chemo was a month ago * Leukopenia --> now Leukocytosis-> Started on IV steroids * Presented w/Rx Bactrim 1tab daily (Neutropenic PCP prophy per HemeOn) * CT ABD/PEL/CHEST:(+) multiple areas of nodules likely lymphoma, 2 Sepsis w/worsening lactic acidosis 2/2 PNA + Left flank/hip/leg decub => TNS to ICU * CT ABD/PEL/CHEST: PNA * Progressive left flank and left abd and left leg wound stage III 3. Acute pancreatitis -> No evidence of necrosis on CT * No need for ABX for pancreas per surgery 4. Presumed RAMU: likely pre-renal 2/2 vomiting 5. Hyponatremia and Hypokalemia: 2/2 vomiting 6. Enterococcal UTI -> Low colony count 7. Progressive left flank and left abd and left leg wound stage III * 01/12/17 WOUND CULTURE Organism 1 CITROBACTER FREUNDII Organism 2 ENTEROCOCCUS SPECIES Organism 3 CORYNEBACTERIUM SPECIES Organism 4 STENOTROPHOMONAS MALTOPHILIA INVASIVES: RUEXT PICC ABX ALLERGY: EGG/MILK CURRENT ABX=> + Zosyn #9 + Levaquin IV #3 + Bactrim IV #2 Vanco IV #8 -> DC 8/10 Bactrim po (RX per his HemeOnc)-> dc 8/6 ID PLAN 1. Continue ABX for sepsis 2. Repeat BCx via PICC 01/18 ordered/pending? -> Spiking fevers >103 on current ABX 01/18 3.Continue Zosyn (Enterococcus + GPC + GNR) + Levaquin 4. Change Vanco IV to Bactrim which will cover empiric MRSA + Stenotrophomonas . . Problems: Consultation Date/Type/Reason Admit Date/Time Jan 09, 2017 at 19:08 Initial Consult Date 01/10/17 Type of Consultation: ID Referring Provider: YAO RAHMAN Exam/Review of Systems Vital Signs Vitals Vital Signs Date Time Temp Pulse Resp B/P Pulse Ox O2 Delivery O2 Flow Rate FiO2 01/20/17 16:00 124 01/20/17 16:00 98.5 17 159/76 95 01/20/17 15:00 Nasal Cannula 3.0 01/20/17 05:44 33 Intake and Output 01/19/17 01/19/17 01/20/17 15:00 23:00 07:00 Intake Total 1873 ml 1548 ml 1929 ml Output Total 850 ml 650 ml 1250 ml Balance 1023 ml 898 ml 679 ml Results Result Diagram: 01/20/17 0926 01/20/17 1645 Results 24 hrs Laboratory Tests Test 01/20/17 04:27 01/20/17 09:26 01/20/17 16:45 White Blood Count 10.2 # 9.1 Red Blood Count 2.38 #L 2.29 L Hemoglobin 6.9 *L 6.4 *L Hematocrit 20.7 L 19.7 L Mean Corpuscular Volume 87.0 86.0 Mean Corpuscular Hemoglobin 29.0 27.9 L Mean Corpuscular Hemoglobin Concent 33.3 32.5 Red Cell Distribution Width 17.1 H 17.3 H Platelet Count 133 L 136 L Mean Platelet Volume 10.8 H 11.1 H Neutrophils % 94.0 H Segmented Neutrophils % (Manual) 92 H Band Neutrophils % (Manual) 6 H Lymphocytes % 0.4 L Monocytes % 3.5 Monocytes % (Manual) 2 Eosinophils % 0.1 Basophils % 0.2 Nucleated Red Blood Cells % 0.0 0.0 Neutrophils # 8.6 H Neutrophils # (Manual) 9.4 H Band Neutrophils # 0.6 Lymphocytes # 0.0 L Monocytes # 0.3 Absolute Monocytes (Manual) 0.2 L Eosinophils # 0.0 Basophils # 0.0 Nucleated Red Blood Cells # 0.0 Thrombocytosis 1 H Platelet Estimate DECREASED Hypochromasia 2+ Anisocytosis 1+ Microcytosis 1+ Spherocytes 1+ Sodium Level 135 133 L Potassium Level 3.3 L 3.8 Chloride Level 98 97 Carbon Dioxide Level 27 26 Anion Gap 13 14 Blood Urea Nitrogen 6 L 4 L Creatinine 0.46 L 0.46 L Glucose Level 84 107 Calcium Level 6.6 L 6.7 L Phosphorus Level 0.7 L Magnesium Level 2.2 Medications Medications Current Medications Docusate Sodium (Colace) 100 mg Q12H PRN PO CONSTIPATION Last administered on 10:46; Admin Dose 100 MG; Start 01/09/17 at 19:30 Magnesium Hydroxide (Milk Of Mag) 30 ml DAILY PRN PO CONSTIPATION; Start at 19:30 Sodium Biphosphate/ Sodium Phosphate (Fleet Enema) 133 ml DAILY PRN [place] CONSTIPATION; Start 01/09/17 at 19:30 Heparin Sodium (Porcine) 5000 unit 5,000 unit Q12 SC Last administered on 09:43; Admin Dose 5,000 UNIT; Start 01/09/17 at 21:00; Status Future Hold Piperacillin Sod/ Tazobactam Sod (Zosyn 3.375gm/ 100 ml (Pmx)) 100 ml @ 200 mls /hr Q6 IVPB Last administered on 01/20/17 17:20; Admin Dose 200 MLS/HR; Start 01/10/17 at 00:00 Nitroglycerin (Nitroglycerin (Sl Tab) 0.4 Mg) 1 tab Q5M PRN SL ANGINA; Start at 19:30 Metoprolol Succinate (Toprol Xl) 25 mg QHS PO Last administered on 01/19/17 21 :32; Admin Dose 25 MG; Start 01/09/17 at 21:00 Miscellaneous Information (Pending [facility] Order For Wound Care) This patient aranda... PRN PRN XX WOUND CARE; Start 01/10/17 at 03:30 Ondansetron HCl 4 mg 4 mg Q6 IV Last administered on 01/20/17 17:19; Admin Dose 4 MG; Start 01/10/17 at 15:30 Acetaminophen (Ofirmev 1000mg/ 100ml Iv) 100 ml @ 400 mls/hr Q6 IVPB Last administered on 01/20/17 17:19; Admin Dose 400 MLS/HR; Start 01/10/17 at 16:30 IV Flush 10 ml 10 ml PRN PRN IV IV PROTOCOL; Start 01/10/17 at 20:30 Sodium Chloride (NS) 1,000 ml @ 125 mls/hr Q8H IV Last administered on 11:46; Admin Dose 125 MLS/HR; Start 01/11/17 at 09:00 Ergocalciferol (Drisdol) 50,000 unit Sa@16 PO Last administered on 01/14/17 16: 43; Admin Dose 50,000 UNIT; Start 01/14/17 at 16:00 Prednisone (Prednisone) 10 mg DAILY PO Last administered on 01/20/17 08:36; Admin Dose 10 MG; Start 01/15/17 at 09:00 Famotidine 20 mg 20 mg BID IV Last administered on 01/20/17 08:32; Admin Dose 20 MG; Start 01/17/17 at 21:00 Levofloxacin/ Dextrose (Levaquin 750 Mg/ D5W 150 ml (Pmx)) 150 ml @ 100 mls/hr Q24H IVPB Last administered on 01/20/17 15:40; Admin Dose 100 MLS/HR; Start at 16:00 Fentanyl 125 mcg 125 mcg Q2H PRN IV PAIN Last administered on 01/20/17 18:38; Admin Dose 125 MCG; Start 01/18/17 at 17:00 Trimethoprim/ Sulfamethoxazole/ Dextrose (Bactrim/D5W) 525 ml @ 343.333 mls/hr Q8 IVPB Last administered on 01/20/17 14:13; Admin Dose 343.333 MLS/HR; Start 01/19/17 at 13:30 Calcitriol (Calcitriol) 1 mcg ONCE ONCE IV ; Start 01/21/17 at 06:00; Stop 05/28 at 06:01 AARON BELLAMY NP Jan 20, 2017 20:13
[2017-01-20] MEDS: METOPROLOL (XL) 25 MG TAB PO SCH (21:58)
[2017-01-21] VITALS (23 sets, daily range): BP systolic 107–165; BP diastolic 65–99; PULSE 110–137; RESP 16–29
[2017-01-21] MEDS: FENTAnyl 50 MCG/ML VIAL IV PRN ×9 (00:21→23:38)
[2017-01-21] MEDS: ONDANSETRON 4 MG INJ IV SCH ×5 (00:21→23:38)
[2017-01-21] MEDS: PIPER-TAZO 3.375 GM IV (PMX) 100 ML IVPB SCH ×4 (00:22→17:39)
[2017-01-21] MEDS: ACETAMINOPHEN 1000MG/100ML IV 100 ML IVPB SCH ×5 (00:25→19:33)
[2017-01-21] MEDS: ALBUTEROL/IPRATROPIUM (NEB) 3 ML AMP HHN PRN ×4 (04:57→23:21)
[2017-01-21 05:02] LABS: ABNORMAL IP MESSAGE 1; BASOPHILS % 0.3 % (0.0-2.0); EOSINOPHILS % 0.2 % (0.0-7.0); HEMATOCRIT 21.5 % (42.0-52.0); LYMPHOCYTES # 0.1 10^3/ul (0.8-2.9); LYMPHOCYTES % 1.1 % (15.0-51.0); MEAN CORPUSCULAR HEMOGLOBIN 27.7 pg (29.0-33.0); MEAN CORPUSCULAR HGB CONC 32.6 g/dl (32.0-37.0); MONOCYTE # 0.2 10^3/ul (0.3-0.9); MONOCYTES % 2.4 % (0.0-11.0); NEUTROPHIL # 5.9 10^3/ul (1.6-7.5); PLATELET COUNT 133 10^3/UL (140-415); POSITIVE DIFF @See below; RED BLOOD COUNT 2.53 10^6/ul (4.70-6.10); RED CELL DISTRIBUTION WIDTH 16.8 % (11.5-14.5); WHITE BLOOD COUNT 6.2 10^3/ul (4.8-10.8)
[2017-01-21 05:22] LABS: PHOSPHORUS 0.7 mg/dl (2.5-4.9)
[2017-01-21 05:23] LABS: ALBUMIN 2.3 g/dl (3.3-4.9); ALBUMIN/GLOBULIN RATIO 0.92; BILIRUBIN,DIRECT 1.2 mg/dl (0.00-0.20); BILIRUBIN,INDIRECT 0.7 mg/dl (0-1.1); BILIRUBIN,TOTAL 1.9 mg/dl (0.2-1.3); CALCIUM 7.1 mg/dl (8.4-10.2); CREATININE 0.46 mg/dl (0.61-1.24); POTASSIUM 3.6 mmol/L (3.5-5.1); TOTAL PROTEIN 4.8 g/dl (6.1-8.1)
[2017-01-21] MEDS ORDERED: CALCITRIOL 1 MCG INJ IV ONE (06:00)
[2017-01-21] MEDS: TRIMETHOPRIM/SULFAMETHOXAZOLE 25 ML in DEXTROSE 5% 500 ML IVPB SCH ×3 (06:33→22:15)
[2017-01-21] MEDS: FAMOTIDINE 20 MG INJ IV SCH ×2 (08:34→20:24)
[2017-01-21] MEDS: predniSONE 20 MG TAB PO SCH (08:34)
--- NOTE | 2017-01-21 10:22 | PN ---
Date/Time of Note Date/Time of Note DATE: 01/21/17 TIME: 10:20 Assessment/Plan Lines/Catheters IV Catheter Type (from Nrsg): PICC Line [place] in Place (from Nrsg): No Assessment/Plan Assessment/Plan [facility] Progress Note Date of Service: 01/21/2017 Place of service: [facility] ICU Today's Assessment & Plan: Overall stable with pancreatitis chemically much improved. Pain appears to be under control. LFT's mildly abnormal. Low suspicion for biliary etiology, but may not be a bad idea to get GI consultation to evaluate. No indication for acute surgical intervention. Discussed with patient and with Dr. Santos. Answered all questions. 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 Very difficult situation with somewhat poor prognosis. Fortunately no indication for acute surgical intervention. No evidence of infected necrosis that would require drain placement or surgical necrosectomy of the pancreas. Would be important to try and avoid major interventions in order to not delay life-prolonging chemotherapeutic intervention. With above assessment, I've recommended the followin. Continue aggressive medical management 2. Keep n.p.o. for now, but if evidence of flatus appears, may consider starting clear liquid diet 3. GI consultation appreciated 4. Fluid resuscitation 5. Does not need antimicrobials for the pancreas, but he may need antimicrobial coverage for other reasons 6. If it would make a difference in management, may consider percutaneous biopsy of segment 6 area of abnormality in the liver 7. Multidisciplinary tumor board presentation and discussions 8. Consideration for clinical trials once improved medically 9. Amylase and lipase checks tomorrow with labs 10. Agree with CT angio Thank you very much for having me involved in the care of this very pleasant patient and wonderful family. If you have any questions, please feel free to contact me at [phone]. Nature of presenting problem: High severity Please note that, given the extensive number of diagnoses or management options , the extensive amount and/or complexity of data needed to be reviewed, and high risk of complications and/or morbidity or mortality, this qualifies as high complexity type of decision-making. Disclaimer: Inadvertent spelling and grammatical errors are likely due to EHR/ dictation software use and do not reflect on the quality of delivered patient care. Also, please note that the electronic time recorded on this node does not necessarily reflect the actual time of the visit. 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 Status post CT-guided left flank subcutaneous nodule biopsy [facility] 01/12/2017. Comorbidities: 1. BMI 40.7 2. Small right pleural effusion with atelectasis and right lung base pneumonia. 3. Large B cell anaplastic lymphoma; status post chemo 1 month prior to presentation 4. Sepsis 5. Hyponatremia 6. Hypokalemia 7. Acute renal injury Subjective: No major events or complaints; reported less abd pain and under control with medications; no significant reported nausea or vomiting without diarrhea; no sob or cp; ? flatus; - BM; minimal to no activity Objective: Vitals: See below I's & O's: See below Exam: GENERAL: On exam, the patient was lying in bed and appeared to be comfortable and in no acute distress. ABDOMEN: Soft, minimal to no tenderness and nondistended. There are no peritoneal signs or guarding. SKIN: Skin appears to be pink and feels warm to touch. NEUROLOGIC: Patient is awake, alert, and follows commands appropriately. Labs: See below CT abdomen and pelvis with IV contrast [facility] 2016 IMPRESSION: extensive peripancreatic edema, increased. No evidence of organized fluid collection. Small volume ascites, increased. Heterogeneous mass-like areas of enhancement within the liver, mildly decreased in size over prior examinations. Further characterization with MRI abdomen with without contrast may be helpful. Numerous small irregular nodules throughout the lung bases, grossly unchanged. Small bilateral pleural effusions are present. Extensive subcutaneous infiltration, slightly progressed. Background subcutaneous edema is also likely present. Splenomegaly. Subtle focal hypoenhancing mass/poor corticomedullary distinction within the left kidney, unchanged. Exam/Review of Systems Vital Signs Vitals Vital Signs Date Time Temp Pulse Resp B/P Pulse Ox O2 Delivery O2 Flow Rate FiO2 01/21/17 08:00 Nasal Cannula 2.0 01/21/17 08:00 121 01/21/17 08:00 26 145/71 97 01/21/17 00:00 98.2 01/20/17 05:44 33 Intake and Output 01/20/17 01/20/17 01/21/17 15:00 23:00 07:00 Intake Total 1034.548 ml 2503.548 ml 1030 ml Output Total 850 ml 1150 ml 1450 ml Balance 184.548 ml 1353.548 ml -420 ml Results Result Diagram: 01/21/17 0430 01/21/17 0430 LENKA HERNANDEZ M.D. Jan 21, 2017 10:22
[2017-01-21] MEDS ORDERED: ALTEPLASE (CATHFLO) 2 MG INJ CATHETER PRN (10:30)
[2017-01-21] MEDS: SOD CHLORIDE 0.9% 1,000 ML IV SCH (10:34)
[2017-01-21] MEDS: HYDROmorphONE 0.2 MG/ML PCA IV SCH ×4 (10:38→22:13)
--- NOTE | 2017-01-21 11:24 | PN ---
Date/Time of Note Date/Time of Note DATE: 01/21/17 TIME: 11:23 Assessment/Plan VTE Prophylaxis VTE Prophylaxis Intervention: SCD's Lines/Catheters IV Catheter Type (from Nrs): PICC Line Central line still needed: Yes Urinary Cath still in place: No Assessment/Plan Chief Complaint/Hosp Course 1. Acute renal injury 2. Right pleural effusion with atelectasis and right lung base pneumonia. 3. Large B cell anaplastic lymphoma; status post chemo 1 month 4. Sepsis 5. Electrolyte imbalance 6. Severe anemia 7. Morbid obesity 8. dehydration 9. electrolyte imbalance Problems: Assessment/Plan 1. Keep pt in ICu 2. Blood transfusion 3. Better HTN control 4. Start TPN Subjective 24 Hr Interval Summary Constitutional: poor po ENT: no complaints Gastrointestinal: decreased appetite Exam/Review of Systems Vital Signs Vitals Vital Signs Date Time Temp Pulse Resp B/P Pulse Ox O2 Delivery O2 Flow Rate FiO2 01/21/17 11:02 18 01/21/17 11:00 99.5 115 159/87 100 Nasal Cannula 01/21/17 08:00 2.0 01/20/17 05:44 33 Intake and Output 01/20/17 01/20/17 01/21/17 15:00 23:00 07:00 Intake Total 1034.548 ml 2503.548 ml 1030 ml Output Total 850 ml 1150 ml 1450 ml Balance 184.548 ml 1353.548 ml -420 ml Exam Constitutional: alert, oriented ENMT: nl external ears & nose, nl lips & teeth Respiratory: diminished breath sounds Cardiovascular: other (tachycardia), regular rate and rhythm Gastrointestinal: soft Genitourinary - Male: nl penis, nl scrotum Extremities: edema, normal pulses Results Result Diagram: 01/21/17 0430 01/21/17 0430 Results 24 hrs Laboratory Tests Test 01/20/17 16:45 01/21/17 04:30 01/21/17 05:04 Sodium Level 133 L 129 L Potassium Level 3.8 3.6 Chloride Level 97 96 L Carbon Dioxide Level 26 27 Anion Gap 14 10 Blood Urea Nitrogen 4 L 4 L Creatinine 0.46 L 0.46 L Glucose Level 107 91 Calcium Level 6.7 L 7.1 L White Blood Count 6.2 # Red Blood Count 2.53 L Hemoglobin 7.0 L Hematocrit 21.5 L Mean Corpuscular Volume 85.0 Mean Corpuscular Hemoglobin 27.7 L Mean Corpuscular Hemoglobin Concent 32.6 Red Cell Distribution Width 16.8 H Platelet Count 133 L Mean Platelet Volume 11.0 H Neutrophils % 95.0 H Lymphocytes % 1.1 L Monocytes % 2.4 Eosinophils % 0.2 Basophils % 0.3 Nucleated Red Blood Cells % 0.0 Neutrophils # 5.9 Lymphocytes # 0.1 L Monocytes # 0.2 L Eosinophils # 0.0 Basophils # 0.0 Nucleated Red Blood Cells # 0.0 Phosphorus Level 0.7 L Magnesium Level 2.0 Total Bilirubin 1.9 H Direct Bilirubin 1.20 H Indirect Bilirubin 0.7 Aspartate Amino Transf (AST/SGOT) 74 H Alanine Aminotransferase (ALT/SGPT) 42 Alkaline Phosphatase 94 Total Protein 4.8 L Albumin 2.3 L Globulin 2.50 Albumin/Globulin Ratio 0.92 Lab Scanned Report BLOOD TRANSFUSION Medications Medications Current Medications Docusate Sodium (Colace) 100 mg Q12H PRN PO CONSTIPATION Last administered on 10:46; Admin Dose 100 MG; Start 01/09/17 at 19:30 Magnesium Hydroxide (Milk Of Mag) 30 ml DAILY PRN PO CONSTIPATION; Start at 19:30 Sodium Biphosphate/ Sodium Phosphate (Fleet Enema) 133 ml DAILY PRN [place] CONSTIPATION; Start 01/09/17 at 19:30 Heparin Sodium (Porcine) 5000 unit 5,000 unit Q12 SC Last administered on 09:43; Admin Dose 5,000 UNIT; Start 01/09/17 at 21:00; Status Future Hold Piperacillin Sod/ Tazobactam Sod (Zosyn 3.375gm/ 100 ml (Pmx)) 100 ml @ 200 mls /hr Q6 IVPB Last administered on 01/21/17 05:48; Admin Dose 200 MLS/HR; Start 01/10/17 at 00:00 Nitroglycerin (Nitroglycerin (Sl Tab) 0.4 Mg) 1 tab Q5M PRN SL ANGINA; Start at 19:30 Metoprolol Succinate (Toprol Xl) 25 mg QHS PO Last administered on 01/20/17 21 :58; Admin Dose 25 MG; Start 01/09/17 at 21:00 Miscellaneous Information (Pending Santyl Order For Wound Care) This patient aranda... PRN PRN XX WOUND CARE; Start 01/10/17 at 03:30 Ondansetron HCl 4 mg 4 mg Q6 IV Last administered on 01/21/17 05:48; Admin Dose 4 MG; Start 01/10/17 at 15:30 Acetaminophen (Ofirmev 1000mg/ 100ml Iv) 100 ml @ 400 mls/hr Q6 IVPB Last administered on 01/21/17 05:48; Admin Dose 400 MLS/HR; Start 01/10/17 at 16:30 IV Flush 10 ml 10 ml PRN PRN IV IV PROTOCOL; Start 01/10/17 at 20:30 Sodium Chloride (NS) 1,000 ml @ 125 mls/hr Q8H IV Last administered on 10:34; Admin Dose 125 MLS/HR; Start 01/11/17 at 09:00 Ergocalciferol (Drisdol) 50,000 unit Sa@16 PO Last administered on 01/14/17 16: 43; Admin Dose 50,000 UNIT; Start 01/14/17 at 16:00 Prednisone (Prednisone) 10 mg DAILY PO Last administered on 01/21/17 08:34; Admin Dose 10 MG; Start 01/15/17 at 09:00 Famotidine 20 mg 20 mg BID IV Last administered on 01/21/17 08:34; Admin Dose 20 MG; Start 01/17/17 at 21:00 Levofloxacin/ Dextrose (Levaquin 750 Mg/ D5W 150 ml (Pmx)) 150 ml @ 100 mls/hr Q24H IVPB Last administered on 01/20/17 15:40; Admin Dose 100 MLS/HR; Start at 16:00 Fentanyl 125 mcg 125 mcg Q2H PRN IV PAIN Last administered on 01/21/17 08:33; Admin Dose 125 MCG; Start 01/18/17 at 17:00 Trimethoprim/ Sulfamethoxazole/ Dextrose (Bactrim/D5W) 525 ml @ 343.333 mls/hr Q8 IVPB Last administered on 01/21/17 06:33; Admin Dose 343.333 MLS/HR; Start 01/19/17 at 13:30 Hydromorphone HCl (Dilaudid BAKER CHEF) 2MG/HR CONTINUOUS RATE ... Q4PCA IV Last administered on 01/21/17t 10:38; Admin Dose 2 MG; Start 01/21/17 at 10:00 MOISES WEAVER Jan 21, 2017 11:24
--- NOTE | 2017-01-21 11:27 | PN ---
Date/Time of Note Date/Time of Note DATE: 01/21/17 TIME: 11:24 Assessment/Plan VTE Prophylaxis VTE Prophylaxis Intervention: SCD's Lines/Catheters [facility] PICC Line Central line still needed: Yes Urinary Cath still in place: No Assessment/Plan Assessment/Plan Assessment: * Anemia * Acute pancreatitis, etiology unclear * Mild abnormality liver function tests with no evidence of biliary pathology * Anaplastic B-cell lymphoma/aggressive behavior * Sepsis/pneumonia/improved Plan: * Transfuse as needed * Monitor hemoglobin and hematocrit daily * Continue monitor lipase and abdominal pain * Once abdominal pain subsides made reintroduce diet * case discussed with Dr Hewitt * Further orders will depend on clinical course Subjective 24 Hr Interval Summary Free Text/Dictation * Course reviewed * Patient seen and examined * Mild improvement of abdominal pain Exam/Review of Systems Vital Signs Vitals Vital Signs Date Time Temp Pulse Resp B/P Pulse Ox O2 Delivery O2 Flow Rate FiO2 01/21/17 11:02 18 01/21/17 11:00 99.5 115 159/87 100 Nasal Cannula 01/21/17 08:00 2.0 01/20/17 05:44 33 Intake and Output 01/20/17 01/20/17 01/21/17 15:00 23:00 07:00 Intake Total 1034.548 ml 2503.548 ml 1030 ml Output Total 850 ml 1150 ml 1450 ml Balance 184.548 ml 1353.548 ml -420 ml Exam Constitutional: alert, frail Neck: non-tender, supple Respiratory: diminished breath sounds, normal air movement Cardiovascular: nl pulses, regular rate and rhythm Gastrointestinal: bowel sounds, distended, soft, tender, No rebound or guarding Musculoskeletal: muscle weakness, swelling Extremities: pitting pedal edema Neurological: nl speech Skin: nl turgor, rash or lesions Lymph: nl lymph nodes Results Result Diagram: 01/21/17 0430 01/21/17 0430 Results 24 hrs Laboratory Tests Test 01/20/17 16:45 01/21/17 04:30 01/21/17 05:04 Sodium Level 133 L 129 L Potassium Level 3.8 3.6 Chloride Level 97 96 L Carbon Dioxide Level 26 27 Anion Gap 14 10 Blood Urea Nitrogen 4 L 4 L Creatinine 0.46 L 0.46 L Glucose Level 107 91 Calcium Level 6.7 L 7.1 L White Blood Count 6.2 # Red Blood Count 2.53 L Hemoglobin 7.0 L Hematocrit 21.5 L Mean Corpuscular Volume 85.0 Mean Corpuscular Hemoglobin 27.7 L Mean Corpuscular Hemoglobin Concent 32.6 Red Cell Distribution Width 16.8 H Platelet Count 133 L Mean Platelet Volume 11.0 H Neutrophils % 95.0 H Lymphocytes % 1.1 L Monocytes % 2.4 Eosinophils % 0.2 Basophils % 0.3 Nucleated Red Blood Cells % 0.0 Neutrophils # 5.9 Lymphocytes # 0.1 L Monocytes # 0.2 L Eosinophils # 0.0 Basophils # 0.0 Nucleated Red Blood Cells # 0.0 Phosphorus Level 0.7 L Magnesium Level 2.0 Total Bilirubin 1.9 H Direct Bilirubin 1.20 H Indirect Bilirubin 0.7 Aspartate Amino Transf (AST/SGOT) 74 H Alanine Aminotransferase (ALT/SGPT) 42 Alkaline Phosphatase 94 Total Protein 4.8 L Albumin 2.3 L Globulin 2.50 Albumin/Globulin Ratio 0.92 Lab Scanned Report BLOOD TRANSFUSION Medications Medications Current Medications Docusate Sodium (Colace) 100 mg Q12H PRN PO CONSTIPATION Last administered on 10:46; Admin Dose 100 MG; Start 01/09/17 at 19:30 Magnesium Hydroxide (Milk Of Mag) 30 ml DAILY PRN PO CONSTIPATION; Start at 19:30 Sodium Biphosphate/ Sodium Phosphate (Fleet Enema) 133 ml DAILY PRN [place] CONSTIPATION; Start 01/09/17 at 19:30 Heparin Sodium (Porcine) 5000 unit 5,000 unit Q12 SC Last administered on 09:43; Admin Dose 5,000 UNIT; Start 01/09/17 at 21:00; Status Future Hold Piperacillin Sod/ Tazobactam Sod (Zosyn 3.375gm/ 100 ml (Pmx)) 100 ml @ 200 mls /hr Q6 IVPB Last administered on 01/21/17 05:48; Admin Dose 200 MLS/HR; Start 01/10/17 at 00:00 Nitroglycerin (Nitroglycerin (Sl Tab) 0.4 Mg) 1 tab Q5M PRN SL ANGINA; Start at 19:30 [facility] This patient aranda... PRN PRN XX WOUND CARE; Start 01/10/17 at 03:30 Ondansetron HCl 4 mg 4 mg Q6 IV Last administered on 01/21/17 05:48; Admin Dose 4 MG; Start 01/10/17 at 15:30 Acetaminophen (Ofirmev 1000mg/ 100ml Iv) 100 ml @ 400 mls/hr Q6 IVPB Last administered on 01/21/17 05:48; Admin Dose 400 MLS/HR; Start 01/10/17 at 16:30 IV Flush 10 ml 10 ml PRN PRN IV IV PROTOCOL; Start 01/10/17 at 20:30 Sodium Chloride (NS) 1,000 ml @ 125 mls/hr Q8H IV Last administered on 10:34; Admin Dose 125 MLS/HR; Start 01/11/17 at 09:00 Ergocalciferol (Drisdol) 50,000 unit Sa@16 PO Last administered on 01/14/17 16: 43; Admin Dose 50,000 UNIT; Start 01/14/17 at 16:00 Prednisone (Prednisone) 10 mg DAILY PO Last administered on 01/21/17 08:34; Admin Dose 10 MG; Start 01/15/17 at 09:00 Famotidine 20 mg 20 mg BID IV Last administered on 01/21/17 08:34; Admin Dose 20 MG; Start 01/17/17 at 21:00 Levofloxacin/ Dextrose (Levaquin 750 Mg/ D5W 150 ml (Pmx)) 150 ml @ 100 mls/hr Q24H IVPB Last administered on 01/20/17 15:40; Admin Dose 100 MLS/HR; Start at 16:00 Fentanyl 125 mcg 125 mcg Q2H PRN IV PAIN Last administered on 01/21/17 08:33; Admin Dose 125 MCG; Start 01/18/17 at 17:00 Trimethoprim/ Sulfamethoxazole/ Dextrose (Bactrim/D5W) 525 ml @ 343.333 mls/hr Q8 IVPB Last administered on 01/21/17 06:33; Admin Dose 343.333 MLS/HR; Start 01/19/17 at 13:30 Hydromorphone HCl (Dilaudid [employer]) 2MG/HR CONTINUOUS RATE ... Q4PCA IV Last administered on 8/12/17at 10:38; Admin Dose 2 MG; Start 01/21/17 at 10:00 Metoprolol Succinate (Toprol Xl) 50 mg QHS PO ; Start 01/21/17 at 21:00; Status ANNAMARIAV SELENA ROY NP Jan 21, 2017 11:26
--- NOTE | 2017-01-21 12:27 | CONS ---
Date/Time of Note Date/Time of Note DATE: 01/21/17 TIME: 12:25 Consult Date/Type/Reason Admit Date/Time Jan 09, 2017 at 19:08 Initial Consult Date 01/15/17 Type of Consultation: Pulmonary Ordering Provider: YAO RAHMAN Subjective Still having moderate abdominal pain. Nausea and vomiting. Objective Vital Signs Date Time Temp Pulse Resp B/P Pulse Ox O2 Delivery O2 Flow Rate FiO2 01/21/17 11:02 18 01/21/17 11:00 99.5 115 159/87 100 Nasal Cannula 01/21/17 08:00 2.0 01/20/17 05:44 33 Intake and Output 01/20/17 01/20/17 01/21/17 15:00 23:00 07:00 Intake Total 1034.548 ml 2503.548 ml 1030 ml Output Total 850 ml 1150 ml 1450 ml Balance 184.548 ml 1353.548 ml -420 ml Exam PHYSICAL EXAMINATION GENERAL: Well-nourished well-developed gentleman nasal cannula oxygen VITAL SIGNS: see below. HEENT: Pupils equal, round, and reactive to light. CARDIAC: S1, S2, no added sounds or movements CHEST: Diminished air entry bilaterally. Bilateral rales. ABDOMEN: Mildly distended. Bowel sounds present no guarding or rebound EXTREMITIES: No cyanosis, clubbing edema +1 NEUROLOGIC: Generalized weakness Results/Medications Result Diagram: 01/21/17 0430 01/21/17 0430 Results 24 hrs Laboratory Tests Test 01/20/17 16:45 01/21/17 04:30 01/21/17 05:04 Sodium Level 133 L 129 L Potassium Level 3.8 3.6 Chloride Level 97 96 L Carbon Dioxide Level 26 27 Anion Gap 14 10 Blood Urea Nitrogen 4 L 4 L Creatinine 0.46 L 0.46 L Glucose Level 107 91 Calcium Level 6.7 L 7.1 L White Blood Count 6.2 # Red Blood Count 2.53 L Hemoglobin 7.0 L Hematocrit 21.5 L Mean Corpuscular Volume 85.0 Mean Corpuscular Hemoglobin 27.7 L Mean Corpuscular Hemoglobin Concent 32.6 Red Cell Distribution Width 16.8 H Platelet Count 133 L Mean Platelet Volume 11.0 H Neutrophils % 95.0 H Lymphocytes % 1.1 L Monocytes % 2.4 Eosinophils % 0.2 Basophils % 0.3 Nucleated Red Blood Cells % 0.0 Neutrophils # 5.9 Lymphocytes # 0.1 L Monocytes # 0.2 L Eosinophils # 0.0 Basophils # 0.0 Nucleated Red Blood Cells # 0.0 Phosphorus Level 0.7 L Magnesium Level 2.0 Total Bilirubin 1.9 H Direct Bilirubin 1.20 H Indirect Bilirubin 0.7 Aspartate Amino Transf (AST/SGOT) 74 H Alanine Aminotransferase (ALT/SGPT) 42 Alkaline Phosphatase 94 Total Protein 4.8 L Albumin 2.3 L Globulin 2.50 Albumin/Globulin Ratio 0.92 Lab Scanned Report BLOOD TRANSFUSION Medications Current Medications Docusate Sodium (Colace) 100 mg Q12H PRN PO CONSTIPATION Last administered on 10:46; Admin Dose 100 MG; Start 01/09/17 at 19:30 Magnesium Hydroxide (Milk Of Mag) 30 ml DAILY PRN PO CONSTIPATION; Start at 19:30 Sodium Biphosphate/ Sodium Phosphate (Fleet Enema) 133 ml DAILY PRN [place] CONSTIPATION; Start 01/09/17 at 19:30 Heparin Sodium (Porcine) 5000 unit 5,000 unit Q12 SC Last administered on 09:43; Admin Dose 5,000 UNIT; Start 01/09/17 at 21:00; Status Future Hold Piperacillin Sod/ Tazobactam Sod (Zosyn 3.375gm/ 100 ml (Pmx)) 100 ml @ 200 mls /hr Q6 IVPB Last administered on 01/21/17 12:14; Admin Dose 200 MLS/HR; Start 01/10/17 at 00:00 Nitroglycerin (Nitroglycerin (Sl Tab) 0.4 Mg) 1 tab Q5M PRN SL ANGINA; Start at 19:30 [facility] This patient aranda... PRN PRN XX WOUND CARE; Start 01/10/17 at 03:30 Ondansetron HCl 4 mg 4 mg Q6 IV Last administered on 01/21/17 12:14; Admin Dose 4 MG; Start 01/10/17 at 15:30 Acetaminophen (Ofirmev 1000mg/ 100ml Iv) 100 ml @ 400 mls/hr Q6 IVPB Last administered on 01/21/17 12:16; Admin Dose 400 MLS/HR; Start 01/10/17 at 16:30 IV Flush 10 ml 10 ml PRN PRN IV IV PROTOCOL; Start 01/10/17 at 20:30 Sodium Chloride (NS) 1,000 ml @ 125 mls/hr Q8H IV Last administered on 10:34; Admin Dose 125 MLS/HR; Start 01/11/17 at 09:00 Ergocalciferol (Drisdol) 50,000 unit Sa@16 PO Last administered on 01/14/17 16: 43; Admin Dose 50,000 UNIT; Start 01/14/17 at 16:00 Prednisone (Prednisone) 10 mg DAILY PO Last administered on 01/21/17 08:34; Admin Dose 10 MG; Start 01/15/17 at 09:00 Famotidine 20 mg 20 mg BID IV Last administered on 01/21/17 08:34; Admin Dose 20 MG; Start 01/17/17 at 21:00 Levofloxacin/ Dextrose (Levaquin 750 Mg/ D5W 150 ml (Pmx)) 150 ml @ 100 mls/hr Q24H IVPB Last administered on 01/20/17 15:40; Admin Dose 100 MLS/HR; Start at 16:00 Fentanyl 125 mcg 125 mcg Q2H PRN IV PAIN Last administered on 01/21/17 12:20; Admin Dose 125 MCG; Start 01/18/17 at 17:00 Trimethoprim/ Sulfamethoxazole/ Dextrose (Bactrim/D5W) 525 ml @ 343.333 mls/hr Q8 IVPB Last administered on 01/21/17 06:33; Admin Dose 343.333 MLS/HR; Start 01/19/17 at 13:30 Hydromorphone HCl (Dilaudid CMV DRIVER) 1.6MG/HR CONTINUOUS RATE ... Q4PCA IV Last administered on 01/21/17 10:38; Admin Dose 2 MG; Start 01/21/17 at 10:00 Metoprolol Succinate 50 mg 50 mg QHS PO ; Start 01/21/17 at 21:00 Total Parenteral Nutrition (Tpn) 1,000 ml @ 80 mls/hr [id number] IV ; Start at 15:00 Assessment/Plan Chief Complaint/Hosp Course IMP: 1. Severe pancreatitis--ongoing abdominal pain. Discussed with general surgery. Questionable biliary calculi because of ongoing abdominal pain pancreatitis and elevated LFTs. 2. Severe HypoCa++--2/2 #1 continue endocrinology recommendations for continued 3. UTI 4. Anaplastic B-cell lymphoma 5. RAMU, improved 6. Pulmonary nodular opacities--c/w metastatic lymphoma 7. Anemia likely multifactorial. RECS: 1. Continue fluids per nephrology 2. CT abdomen noted. 3. Endocrinology recommendations with potassium replacement 4. Pain control via CMV DRIVER 5. Follow lytes 6. Surgery recommendations advance diet per surgery recommendations 7. PT evaluation out of bed if tolerated 8. GI evaluation for possible biliary calculi. Discussed with primary team. Problems: BECKA DINH [facility] Jan 21, 2017 12:27
--- NOTE | 2017-01-21 14:59 | PN ---
DATE: 01/21/2017 SUBJECTIVE DATA: No events overnight. The patient is lying comfortably in bed. He is spiking low-grade fever with T-max of 100. T-current 99.5. Pulse 115. Respirations 19. Blood pressure 159/87. Saturation 100 on nasal cannula. LABORATORY AND DIAGNOSTIC DATA: WBC 6.2, hemoglobin and hematocrit 7 and 21.5. Platelets 133. Neutrophils 95. BUN 4, creatinine 0.46. Sodium 129. MICROBIOLOGY: Urine culture on admission growing Enterococcus species. Blood cultures remain negative. Nares are negative. Right lower extremity wound culture growing Citrobacter freundii, Enteroccocus species, Corynebacterium, and Stenotrophomonas maltophilia. Indwelling PICC line placed on 01/10/2017. LABORATORY AND DIAGNOSTIC DATA: CT of abdomen and pelvis revealed extensive peripancreatic edema. No evidence of fluid collection. Small volume of ascites. Heterogeneous mass-like areas of enhancement within the liver, mildly decreased in size over prior examination. Numerous small irregular nodules throughout the lung bases, grossly unchanged. Extensive subcutaneous infiltration slightly progressed, splenomegaly, and supple focal hypoenhancing mass/poor cortical medullary distinction within the left kidney, unchanged. Chest x-ray revealed persistent patchy areas of consolidation in the right upper and lower lobes. ANTIBIOTICS: IV Bactrim, IV Levaquin, Zosyn. OBJECTIVE DATA: This is an ill-appearing, morbidly-obese, middle- aged man who is in no distress. Head is atraumatic, normocephalic. Sclerae anicteric. Buccal mucosa dry. Neck is obese. Chest rise is symmetrical. Breath sounds diminished at the bases. Heart: S1, S2. Abdomen obese, soft, bowel sounds hypoactive. Extremities with bilateral edema. Skin: Multiple necrotic lesions and wounds. ASSESSMENT:: 1. Sepsis. 2. Status post urinary tract infection. 3. Multiple skin lesions with the right lower extremity growing multiple [id number] organisms. 4. Large B-cell anaplastic lymphoma. 5. Acute pancreatitis with lipase going down. The patient is being followed by Dr. Carlos. 6. Anemia and thrombocytopenia. PLAN: The patient is covered with appropriate antimicrobials. He is being followed by multiple consultants. Continue present care, pain management. Repeat cultures p.r.n. for temperature of 101 and above. Dictated By: Suly Hdz NP /paulette/ariadne /Document#: [id number]
[2017-01-21] MEDS ORDERED: TPN 1,000 ML IV SCH (15:00)
[2017-01-21] MEDS: LEVOFLOXACIN 750MG/D5W (PMX) 150 ML IVPB SCH (15:48)
[2017-01-21] MEDS ORDERED: CALCIUM GLUCONATE 10% 1 GM in SOD CHLORIDE 0.9% 100 ML IVPB ONE (17:00)
[2017-01-21] MEDS: TPN 1,000 ML IV SCH (17:14)
[2017-01-21 18:06] LABS: HEMATOCRIT 22.6 % (42.0-52.0); HEMOGLOBIN 7.4 g/dl (14.0-18.0)
[2017-01-21] MEDS: ERGOCALCIFEROL 50,000 UNIT CAP PO SCH (18:56)
[2017-01-21] MEDS: METOPROLOL (XL) 25 MG TAB PO SCH (20:27)
[2017-01-22] VITALS (29 sets, daily range): BP systolic 108–192; BP diastolic 66–109; PULSE 102–131; RESP 17–23
[2017-01-22] MEDS: ACETAMINOPHEN 1000MG/100ML IV 100 ML IVPB SCH ×4 (00:02→18:28)
[2017-01-22] MEDS: PIPER-TAZO 3.375 GM IV (PMX) 100 ML IVPB SCH ×4 (00:02→18:28)
[2017-01-22] MEDS: HYDROmorphONE 0.2 MG/ML PCA IV SCH ×6 (01:58→20:33)
[2017-01-22] MEDS: ALBUTEROL/IPRATROPIUM (NEB) 3 ML AMP HHN PRN ×3 (03:57→10:44)
[2017-01-22] MEDS: FENTAnyl 50 MCG/ML VIAL IV PRN ×6 (04:10→22:49)
[2017-01-22 04:34] LABS: ABNORMAL IP MESSAGE 1; EOSINOPHILS % 0.8 % (0.0-7.0); HEMATOCRIT 22.2 % (42.0-52.0); HEMOGLOBIN 7.3 g/dl (14.0-18.0); LYMPHOCYTES # 0.1 10^3/ul (0.8-2.9); LYMPHOCYTES % 1.4 % (15.0-51.0); MEAN CORPUSCULAR HEMOGLOBIN 28.2 pg (29.0-33.0); MEAN CORPUSCULAR HGB CONC 32.9 g/dl (32.0-37.0); MEAN CORPUSCULAR VOLUME 85.7 fl (82.0-101.0); MEAN PLATELET VOLUME 10.6 fl (7.4-10.4); MONOCYTE # 0.1 10^3/ul (0.3-0.9); MONOCYTES % 1.9 % (0.0-11.0); NEUTROPHIL # 3.5 10^3/ul (1.6-7.5); PLATELET COUNT 103 10^3/UL (140-415); POSITIVE DIFF @See below; RED BLOOD COUNT 2.59 10^6/ul (4.70-6.10); RED CELL DISTRIBUTION WIDTH 16.8 % (11.5-14.5); WHITE BLOOD COUNT 3.6 10^3/ul (4.8-10.8)
[2017-01-22 04:43] LABS: NEUTROPHILS % 95.6 % (39.0-77.0)
[2017-01-22 05:03] LABS: CALCIUM 7.4 mg/dl (8.4-10.2); CREATININE 0.45 mg/dl (0.61-1.24); POTASSIUM 3.5 mmol/L (3.5-5.1)
[2017-01-22] MEDS: ONDANSETRON 4 MG INJ IV SCH ×3 (05:03→18:28)
[2017-01-22] MEDS: TPN 1,000 ML IV SCH ×2 (05:05→18:28)
[2017-01-22] MEDS: TRIMETHOPRIM/SULFAMETHOXAZOLE 25 ML in DEXTROSE 5% 500 ML IVPB SCH ×3 (06:33→22:08)
[2017-01-22] MEDS ORDERED: TOBRAMYCIN 100 MG in SOD CHLORIDE 0.9% 50 ML IVPB ONE (08:00)
[2017-01-22] MEDS: FAMOTIDINE 20 MG INJ IV SCH ×2 (08:47→20:22)
[2017-01-22] MEDS: predniSONE 20 MG TAB PO SCH (08:47)
--- NOTE | 2017-01-22 10:44 | PN ---
Date/Time of Note Date/Time of Note DATE: 01/22/17 TIME: 10:40 Assessment/Plan Lines/Catheters IV Catheter Type (from Nrsg): PICC Line [place] in Place (from Nrsg): No Assessment/Plan Assessment/Plan [facility] Progress Note Date of Service: 01/22/2017 Place of service: ICU Today's Assessment & Plan: Overall stable with pancreatitis chemically much improved. Pain appears to be under control. T-bili slightly worse, but alk phos normal. Doubt active obstruction, but will be helpful to discuss with GI in a multidisciplinary fashion. No indication for acute surgical intervention. Discussed with patient and his . Answered all questions. 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 Very difficult situation with somewhat poor prognosis. Fortunately no indication for acute surgical intervention. No evidence of infected necrosis that would require drain placement or surgical necrosectomy of the pancreas. Would be important to try and avoid major interventions in order to not delay life-prolonging chemotherapeutic intervention. With above assessment, I've recommended the followin. Continue aggressive medical management 2. May advance diet as tolerated from my standpoint 3. GI consultation appreciated 4. If it would make a difference in management, may consider percutaneous biopsy of segment 6 area of abnormality in the liver 5. Multidisciplinary tumor board presentation and discussions 6. Consideration for clinical trials once improved medically 7. Amylase and lipase checks tomorrow with labs Thank you very much for having me involved in the care of this very pleasant patient and wonderful family. If you have any questions, please feel free to contact me at [phone]. Nature of presenting problem: High severity Please note that, given the extensive number of diagnoses or management options , the extensive amount and/or complexity of data needed to be reviewed, and high risk of complications and/or morbidity or mortality, this qualifies as high complexity type of decision-making. Disclaimer: Inadvertent spelling and grammatical errors are likely due to EHR/ dictation software use and do not reflect on the quality of delivered patient care. Also, please note that the electronic time recorded on this node does not necessarily reflect the actual time of the visit. 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 Status post CT-guided left flank subcutaneous nodule biopsy 01/12/2017. Comorbidities: 1. BMI 40.7 2. Small right pleural effusion with atelectasis and right lung base pneumonia. 3. Large B cell anaplastic lymphoma; status post chemo 1 month prior to presentation 4. Sepsis 5. Hyponatremia 6. Hypokalemia 7. Acute renal injury Subjective: No major events or complaints; reported no major abd pain and under control with medications; no significant reported nausea or vomiting without diarrhea; no sob or cp; ? flatus; - BM (rectal tube out); minimal to no activity. Objective: Vitals: See below I's & O's: See below Exam: GENERAL: On exam, the patient was lying in bed and appeared to be comfortable and in no acute distress. ABDOMEN: Soft, minimal to no tenderness and nondistended. There are no peritoneal signs or guarding. SKIN: Skin appears to be pink and feels warm to touch. NEUROLOGIC: Patient is awake, alert, and follows commands appropriately. Labs: See below CT abdomen and pelvis with IV contrast 2016 IMPRESSION: extensive peripancreatic edema, increased. No evidence of organized fluid collection. Small volume ascites, increased. Heterogeneous mass-like areas of enhancement within the liver, mildly decreased in size over prior examinations. Further characterization with MRI abdomen with without contrast may be helpful. Numerous small irregular nodules throughout the lung bases, grossly unchanged. Small bilateral pleural effusions are present. Extensive subcutaneous infiltration, slightly progressed. Background subcutaneous edema is also likely present. Splenomegaly. Subtle focal hypoenhancing mass/poor corticomedullary distinction within the left kidney, unchanged. Exam/Review of Systems Vital Signs Vitals Vital Signs Date Time Temp Pulse Resp B/P Pulse Ox O2 Delivery O2 Flow Rate FiO2 01/22/17 09:00 106 19 159/78 92 01/22/17 08:00 97.3 01/22/17 07:20 3.0 32 01/22/17 06:00 Nasal Cannula Intake and Output 01/21/17 01/21/17 01/22/17 15:00 23:00 07:00 Intake Total 1279 ml 1665 ml 855 ml Output Total 650 ml 650 ml 1100 ml Balance 629 ml 1015 ml -245 ml Results Result Diagram: 01/22/17 0418 01/22/17 0418 LENKA HERNANDEZ M.D. Jan 22, 2017 10:43
[2017-01-22] MEDS ORDERED: CALCITRIOL 1 MCG INJ IV ONE (12:00)
[2017-01-22] MEDS ORDERED: CALCIUM GLUCONATE 10% 1 GM in SOD CHLORIDE 0.9% 100 ML IVPB ONE (12:30)
--- NOTE | 2017-01-22 13:23 | PN ---
Date/Time of Note Date/Time of Note DATE: 01/22/17 TIME: 13:19 Assessment/Plan VTE Prophylaxis VTE Prophylaxis Intervention: SCD's Lines/Catheters IV Catheter Type (from Nrs): PICC Line Central line still needed: Yes Urinary Cath still in place: No Assessment/Plan Assessment/Plan ssessment: * Anemia * Acute pancreatitis, etiology unclear * Mild abnormality liver function tests with no evidence of biliary pathology * Anaplastic B-cell lymphoma/aggressive behavior * Sepsis/pneumonia/improved Plan: * Transfuse as needed * Monitor hemoglobin and hematocrit daily * Continue monitor lipase and abdominal pain * Once abdominal pain subsides made reintroduce diet * case discussed with Dr Hewitt * Further orders will depend on clinical course Subjective 24 Hr Interval Summary Free Text/Dictation * course reviewed with RN * patient seen and examined * still with abdominal pain01/19 on Dilaudid continuos iv drip * On TPN Exam/Review of Systems Vital Signs Vitals Vital Signs Date Time Temp Pulse Resp B/P Pulse Ox O2 Delivery O2 Flow Rate FiO2 01/22/17 12:52 100 3.0 30 01/22/17 12:06 98.9 01/22/17 12:00 131 21 146/71 01/22/17 06:00 Nasal Cannula Intake and Output 01/21/17 01/21/17 01/22/17 15:00 23:00 07:00 Intake Total 1279 ml 1665 ml 855 ml Output Total 650 ml 650 ml 1100 ml Balance 629 ml 1015 ml -245 ml Exam Constitutional: alert, frail Head: normocephalic Neck: non-tender, supple Respiratory: diminished breath sounds, normal air movement Cardiovascular: other (tachycardic) Gastrointestinal: ascites, bowel sounds, distended, tender, No rebound or guarding Extremities: edema Neurological: nl mental status, nl speech Skin: nl turgor, rash or lesions Lymph: nl lymph nodes Results Result Diagram: 01/22/17 0418 01/22/17 0418 Results 24 hrs Laboratory Tests Test 01/21/17 17:37 01/22/17 04:00 01/22/17 04:18 Hemoglobin 7.4 L 7.3 L Hematocrit 22.6 L 22.2 L Ionized Calcium (Measured) 1.1 White Blood Count 3.6 #L Red Blood Count 2.59 L Mean Corpuscular Volume 85.7 Mean Corpuscular Hemoglobin 28.2 L Mean Corpuscular Hemoglobin Concent 32.9 Red Cell Distribution Width 16.8 H Platelet Count 103 #L Mean Platelet Volume 10.6 H Neutrophils % 95.6 H Lymphocytes % 1.4 L Monocytes % 1.9 Eosinophils % 0.8 Basophils % 0.0 Nucleated Red Blood Cells % 0.0 Neutrophils # 3.5 Lymphocytes # 0.1 L Monocytes # 0.1 L Eosinophils # 0.0 Basophils # 0.0 Nucleated Red Blood Cells # 0.0 Sodium Level 127 L Potassium Level 3.5 Chloride Level 94 L Carbon Dioxide Level 29 Anion Gap 8 Blood Urea Nitrogen 5 L Creatinine 0.45 L Glucose Level 102 Calcium Level 7.4 L Phosphorus Level 1.1 L Magnesium Level 1.9 Medications Medications Current Medications Docusate Sodium (Colace) 100 mg Q12H PRN PO CONSTIPATION Last administered on 10:46; Admin Dose 100 MG; Start 01/09/17 at 19:30 Magnesium Hydroxide (Milk Of Mag) 30 ml DAILY PRN PO CONSTIPATION; Start at 19:30 Sodium Biphosphate/ Sodium Phosphate (Fleet Enema) 133 ml DAILY PRN [place] CONSTIPATION; Start 01/09/17 at 19:30 Heparin Sodium (Porcine) 5000 unit 5,000 unit Q12 SC Last administered on 09:43; Admin Dose 5,000 UNIT; Start 01/09/17 at 21:00; Status Future Hold Piperacillin Sod/ Tazobactam Sod (Zosyn 3.375gm/ 100 ml (Pmx)) 100 ml @ 200 mls /hr Q6 IVPB Last administered on 01/22/17 11:39; Admin Dose 200 MLS/HR; Start 01/10/17 at 00:00 Nitroglycerin (Nitroglycerin (Sl Tab) 0.4 Mg) 1 tab Q5M PRN SL ANGINA; Start at 19:30 [facility]isc[facility] This patient aranda... PRN PRN XX WOUND CARE; Start 01/10/17 at 03:30 Ondansetron HCl 4 mg 4 mg Q6 IV Last administered on 01/22/17 11:38; Admin Dose 4 MG; Start 01/10/17 at 15:30 Acetaminophen (Ofirmev 1000mg/ 100ml Iv) 100 ml @ 400 mls/hr Q6 IVPB Last administered on 01/22/17 11:39; Admin Dose 400 MLS/HR; Start 01/10/17 at 16:30 IV Flush (NS 10 ml) 10 ml PRN PRN IV IV PROTOCOL; Start 01/10/17 at 20:30 Ergocalciferol (Drisdol) 50,000 unit Sa@16 PO Last administered on 01/21/17 18 :56; Admin Dose 50,000 UNIT; Start 01/14/17 at 16:00 Prednisone (Prednisone) 10 mg DAILY PO Last administered on 01/22/17 08:47; Admin Dose 10 MG; Start 01/15/17 at 09:00 Famotidine 20 mg 20 mg BID IV Last administered on 01/22/17 08:47; Admin Dose 20 MG; Start 01/17/17 at 21:00 Levofloxacin/ Dextrose (Levaquin 750 Mg/ D5W 150 ml (Pmx)) 150 ml @ 100 mls/hr Q24H IVPB Last administered on 01/21/17 15:48; Admin Dose 100 MLS/HR; Start at 16:00 Fentanyl 125 mcg 125 mcg Q2H PRN IV PAIN Last administered on 01/22/17 11:38; Admin Dose 125 MCG; Start 01/18/17 at 17:00 Trimethoprim/ Sulfamethoxazole/ Dextrose (Bactrim/D5W) 525 ml @ 343.333 mls/hr Q8 IVPB Last administered on 01/22/17 06:33; Admin Dose 343.333 MLS/HR; Start 01/19/17 at 13:30 Hydromorphone HCl (Dilaudid SPINDLE MAKER) 1.6MG/HR CONTINUOUS RATE ... Q4PCA IV Last administered on 01/22/17 09:37; Admin Dose 6 MG; Start 01/21/17 at 10:00 Metoprolol Succinate 50 mg 50 mg QHS PO Last administered on 01/21/17 20:27; Admin Dose 50 MG; Start 01/21/17 at 21:00 Total Parenteral Nutrition 1,000 ml @ 80 mls/hr [id number] IV Last administered on 01/22/17 05:05; Admin Dose 80 MLS/HR; Start 01/21/17 at 16:30 Calcium Gluconate/ Sodium Chloride (Ca Gluc/NS) 110 ml @ 110 mls/hr ONCE ONCE IVPB ; Start 01/22/17 at 12:30; Stop 01/22/17 at 13:29 SELENA ROY NP Jan 22, 2017 13:23
--- NOTE | 2017-01-22 14:25 | CONS ---
Date/Time of Note Date/Time of Note DATE: 01/22/17 TIME: 14:21 Consult Date/Type/Reason Admit Date/Time Jan 09, 2017 at 19:08 Initial Consult Date 01/15/17 Type of Consultation: Pulmonary Ordering Provider: YAO RAHMAN Subjective Still with moderate distress this morning. Remains tachycardic. Objective Vital Signs Date Time Temp Pulse Resp B/P Pulse Ox O2 Delivery O2 Flow Rate FiO2 01/22/17 12:52 100 3.0 30 01/22/17 12:06 98.9 01/22/17 12:00 130 01/22/17 12:00 21 146/71 01/22/17 06:00 Nasal Cannula Intake and Output 01/21/17 01/21/17 01/22/17 15:00 23:00 07:00 Intake Total 1279 ml 1665 ml 855 ml Output Total 650 ml 650 ml 1100 ml Balance 629 ml 1015 ml -245 ml Exam PHYSICAL EXAMINATION GENERAL: Well-nourished well-developed gentleman nasal cannula oxygen VITAL SIGNS: see below. HEENT: Pupils equal, round, and reactive to light. CARDIAC: S1, S2, no added sounds or movements CHEST: Diminished air entry bilaterally. Bilateral rales. ABDOMEN: Mildly distended. Bowel sounds present no guarding or rebound EXTREMITIES: No cyanosis, clubbing edema +1 NEUROLOGIC: Generalized weakness Results/Medications Result Diagram: 01/22/17 0418 01/22/17 0418 Results 24 hrs Laboratory Tests Test 01/21/17 17:37 01/22/17 04:00 01/22/17 04:18 Hemoglobin 7.4 L 7.3 L Hematocrit 22.6 L 22.2 L Ionized Calcium (Measured) 1.1 White Blood Count 3.6 #L Red Blood Count 2.59 L Mean Corpuscular Volume 85.7 Mean Corpuscular Hemoglobin 28.2 L Mean Corpuscular Hemoglobin Concent 32.9 Red Cell Distribution Width 16.8 H Platelet Count 103 #L Mean Platelet Volume 10.6 H Neutrophils % 95.6 H Lymphocytes % 1.4 L Monocytes % 1.9 Eosinophils % 0.8 Basophils % 0.0 Nucleated Red Blood Cells % 0.0 Neutrophils # 3.5 Lymphocytes # 0.1 L Monocytes # 0.1 L Eosinophils # 0.0 Basophils # 0.0 Nucleated Red Blood Cells # 0.0 Sodium Level 127 L Potassium Level 3.5 Chloride Level 94 L Carbon Dioxide Level 29 Anion Gap 8 Blood Urea Nitrogen 5 L Creatinine 0.45 L Glucose Level 102 Calcium Level 7.4 L Phosphorus Level 1.1 L Magnesium Level 1.9 Medications Current Medications Docusate Sodium (Colace) 100 mg Q12H PRN PO CONSTIPATION Last administered on 10:46; Admin Dose 100 MG; Start 01/09/17 at 19:30 Magnesium Hydroxide (Milk Of Mag) 30 ml DAILY PRN PO CONSTIPATION; Start at 19:30 Sodium Biphosphate/ Sodium Phosphate (Fleet Enema) 133 ml DAILY PRN [place] CONSTIPATION; Start 01/09/17 at 19:30 Heparin Sodium (Porcine) 5000 unit 5,000 unit Q12 SC Last administered on 09:43; Admin Dose 5,000 UNIT; Start 01/09/17 at 21:00; Status Future Hold Piperacillin Sod/ Tazobactam Sod (Zosyn 3.375gm/ 100 ml (Pmx)) 100 ml @ 200 mls /hr Q6 IVPB Last administered on 01/22/17 11:39; Admin Dose 200 MLS/HR; Start 01/10/17 at 00:00 Nitroglycerin (Nitroglycerin (Sl Tab) 0.4 Mg) 1 tab Q5M PRN SL ANGINA; Start at 19:30 [facility]isc[facility] This patient aranda... PRN PRN XX WOUND CARE; Start 01/10/17 at 03:30 Ondansetron HCl 4 mg 4 mg Q6 IV Last administered on 01/22/17 11:38; Admin Dose 4 MG; Start 01/10/17 at 15:30 Acetaminophen (Ofirmev 1000mg/ 100ml Iv) 100 ml @ 400 mls/hr Q6 IVPB Last administered on 01/22/17 11:39; Admin Dose 400 MLS/HR; Start 01/10/17 at 16:30 IV Flush (NS 10 ml) 10 ml PRN PRN IV IV PROTOCOL; Start 01/10/17 at 20:30 Ergocalciferol (Drisdol) 50,000 unit Sa@16 PO Last administered on 01/21/17 18 :56; Admin Dose 50,000 UNIT; Start 01/14/17 at 16:00 Prednisone (Prednisone) 10 mg DAILY PO Last administered on 01/22/17 08:47; Admin Dose 10 MG; Start 01/15/17 at 09:00 Famotidine 20 mg 20 mg BID IV Last administered on 01/22/17 08:47; Admin Dose 20 MG; Start 01/17/17 at 21:00 Levofloxacin/ Dextrose (Levaquin 750 Mg/ D5W 150 ml (Pmx)) 150 ml @ 100 mls/hr Q24H IVPB Last administered on 01/21/17 15:48; Admin Dose 100 MLS/HR; Start at 16:00 Fentanyl 125 mcg 125 mcg Q2H PRN IV PAIN Last administered on 01/22/17 11:38; Admin Dose 125 MCG; Start 01/18/17 at 17:00 Trimethoprim/ Sulfamethoxazole/ Dextrose (Bactrim/D5W) 525 ml @ 343.333 mls/hr Q8 IVPB Last administered on 01/22/17 13:17; Admin Dose 343.333 MLS/HR; Start 01/19/17 at 13:30 Hydromorphone HCl (Dilaudid LEGAL DOCUMENT SPECIALIST) 1.6MG/HR CONTINUOUS RATE ... Q4PCA IV Last administered on 01/22/17 13:27; Admin Dose 6 MG; Start 01/21/17 at 10:00 Metoprolol Succinate 50 mg 50 mg QHS PO Last administered on 01/21/17 20:27; Admin Dose 50 MG; Start 01/21/17 at 21:00 Total Parenteral Nutrition 1,000 ml @ 80 mls/hr [id number] IV Last administered on 01/22/17 05:05; Admin Dose 80 MLS/HR; Start 01/21/17 at 16:30 Potassium Phosphate 50 meq/ Sodium Chloride 261.3636 ml @ 65.341 m... ONCE ONCE IVPB ; Start 01/22/17 at 14:30; Stop 01/22/17 at 18:29; Status UNV Sodium Phosphate/ Sodium Chloride (Sodium Phosphate/NS) 255 ml @ 63.75 mls/ hr ONCE ONCE IVPB ; Start 01/22/17 at 14:30; Stop 01/22/17 at 18:29; Status UNV Assessment/Plan Chief Complaint/Hosp Course IMP: 1. Severe pancreatitis--ongoing abdominal pain. Discussed with general surgery. Questionable biliary calculi because of ongoing abdominal pain pancreatitis and elevated LFTs. 2. Severe HypoCa++--2/2 #1 continue endocrinology recommendations for continued 3. UTI 4. Anaplastic B-cell lymphoma 5. RAMU, improved 6. Pulmonary nodular opacities--c/w metastatic lymphoma 7. Anemia likely multifactorial. 8. Ongoing sinus tachycardia likely combination of anemia, pain, ongoing inflammation. RECS: 1. Continue fluids per nephrology, possible SIADH 2. CT abdomen noted. 3. Endocrinology recommendations with potassium replacement, calcium management. 4. Pain control via LEGAL DOCUMENT SPECIALIST 5. Follow lytes 6. Surgery recommendations advance diet per surgery recommendations 7. PT evaluation out of bed if tolerated 8. GI evaluation for possible biliary calculi. Discussed with primary team. Problems: [facility] DINH [facility] Jan 22, 2017 14:24
[2017-01-22] MEDS: IPRATROPIUM (NEB) 0.5 MG/2.5 ML AMP HHN SCH ×2 (15:23→19:47)
[2017-01-22] MEDS: LEVALBUTEROL (NEB) 0.63 MG/3 ML AMP HHN SCH ×2 (15:23→19:47)
[2017-01-22] MEDS ORDERED: SODIUM PHOSPHATE 20 MEQ in SOD CHLORIDE 0.9% 250 ML IVPB ONE (16:00)
[2017-01-22] MEDS ORDERED: POTASSIUM PHOSPHATE IVPB ONE (16:00)
[2017-01-22] MEDS ORDERED: SOD CHLORIDE 0.9% IVPB ONE (16:00)
--- NOTE | 2017-01-22 17:21 | PN ---
Date/Time of Note Date/Time of Note DATE: 01/22/17 TIME: 17:19 Assessment/Plan VTE Prophylaxis VTE Prophylaxis Intervention: other Lines/Catheters IV Catheter Type (from Nrs): PICC Line Central line still needed: Yes Urinary Cath still in place: No Assessment/Plan Chief Complaint/Hosp Course PANCREATITIS HYPOCALCEMIA HYPOPHOSPHATEMIA OBESITY SIRS PLAN TPN LYTE REPLACEMENT Problems: Subjective 24 Hr Interval Summary Constitutional: No chills, No diaphoresis Respiratory: no complaints Cardiovascular: no complaints Gastrointestinal: No diarrhea Genitourinary: no complaints Exam/Review of Systems Vital Signs Vitals Vital Signs Date Time Temp Pulse Resp B/P Pulse Ox O2 Delivery O2 Flow Rate FiO2 01/22/17 16:00 117 01/22/17 15:47 98.7 01/22/17 15:23 20 98 3.0 32 01/22/17 15:00 108/67 01/22/17 08:00 Nasal Cannula Intake and Output 01/21/17 01/21/17 01/22/17 15:00 23:00 07:00 Intake Total 1279 ml 1665 ml 855 ml Output Total 650 ml 650 ml 1100 ml Balance 629 ml 1015 ml -245 ml Exam Respiratory: clear to auscultation Cardiovascular: regular rate and rhythm Gastrointestinal: bowel sounds (+), soft Extremities: edema (+) Results Result Diagram: 01/22/17 0418 01/22/17 0418 Results 24 hrs Laboratory Tests Test 01/21/17 17:37 01/22/17 04:00 01/22/17 04:18 Hemoglobin 7.4 L 7.3 L Hematocrit 22.6 L 22.2 L Ionized Calcium (Measured) 1.1 White Blood Count 3.6 #L Red Blood Count 2.59 L Mean Corpuscular Volume 85.7 Mean Corpuscular Hemoglobin 28.2 L Mean Corpuscular Hemoglobin Concent 32.9 Red Cell Distribution Width 16.8 H Platelet Count 103 #L Mean Platelet Volume 10.6 H Neutrophils % 95.6 H Lymphocytes % 1.4 L Monocytes % 1.9 Eosinophils % 0.8 Basophils % 0.0 Nucleated Red Blood Cells % 0.0 Neutrophils # 3.5 Lymphocytes # 0.1 L Monocytes # 0.1 L Eosinophils # 0.0 Basophils # 0.0 Nucleated Red Blood Cells # 0.0 Sodium Level 127 L Potassium Level 3.5 Chloride Level 94 L Carbon Dioxide Level 29 Anion Gap 8 Blood Urea Nitrogen 5 L Creatinine 0.45 L Glucose Level 102 Calcium Level 7.4 L Phosphorus Level 1.1 L Magnesium Level 1.9 Medications Medications Current Medications Docusate Sodium (Colace) 100 mg Q12H PRN PO CONSTIPATION Last administered on 10:46; Admin Dose 100 MG; Start 01/09/17 at 19:30 Magnesium Hydroxide (Milk Of Mag) 30 ml DAILY PRN PO CONSTIPATION; Start at 19:30 Sodium Biphosphate/ Sodium Phosphate (Fleet Enema) 133 ml DAILY PRN [place] CONSTIPATION; Start 01/09/17 at 19:30 Heparin Sodium (Porcine) 5000 unit 5,000 unit Q12 SC Last administered on 09:43; Admin Dose 5,000 UNIT; Start 01/09/17 at 21:00; Status Future Hold Piperacillin Sod/ Tazobactam Sod (Zosyn 3.375gm/ 100 ml (Pmx)) 100 ml @ 200 mls /hr Q6 IVPB Last administered on 01/22/17 11:39; Admin Dose 200 MLS/HR; Start 01/10/17 at 00:00 Nitroglycerin (Nitroglycerin (Sl Tab) 0.4 Mg) 1 tab Q5M PRN SL ANGINA; Start at 19:30 Miscellaneous Information (Pending [facility] Order For Wound Care) This patient aranda... PRN PRN XX WOUND CARE; Start 01/10/17 at 03:30 Ondansetron HCl 4 mg 4 mg Q6 IV Last administered on 01/22/17 11:38; Admin Dose 4 MG; Start 01/10/17 at 15:30 Acetaminophen (Ofirmev 1000mg/ 100ml Iv) 100 ml @ 400 mls/hr Q6 IVPB Last administered on 01/22/17 11:39; Admin Dose 400 MLS/HR; Start 01/10/17 at 16:30 IV Flush (NS 10 ml) 10 ml PRN PRN IV IV PROTOCOL; Start 01/10/17 at 20:30 Ergocalciferol (Drisdol) 50,000 unit Sa@16 PO Last administered on 01/21/17 18 :56; Admin Dose 50,000 UNIT; Start 01/14/17 at 16:00 Prednisone (Prednisone) 10 mg DAILY PO Last administered on 01/22/17 08:47; Admin Dose 10 MG; Start 01/15/17 at 09:00 Famotidine 20 mg 20 mg BID IV Last administered on 01/22/17 08:47; Admin Dose 20 MG; Start 01/17/17 at 21:00 Levofloxacin/ Dextrose (Levaquin 750 Mg/ D5W 150 ml (Pmx)) 150 ml @ 100 mls/hr Q24H IVPB Last administered on 01/21/17 15:48; Admin Dose 100 MLS/HR; Start at 16:00 Fentanyl 125 mcg 125 mcg Q2H PRN IV PAIN Last administered on 01/22/17 14:22; Admin Dose 125 MCG; Start 01/18/17 at 17:00 Trimethoprim/ Sulfamethoxazole/ Dextrose (Bactrim/D5W) 525 ml @ 343.333 mls/hr Q8 IVPB Last administered on 01/22/17 13:17; Admin Dose 343.333 MLS/HR; Start 01/19/17 at 13:30 Hydromorphone HCl (Dilaudid SET UP MECHANIC CROWN ASSEMBLY MACHINE) 1.6MG/HR CONTINUOUS RATE ... Q4PCA IV Last administered on 01/22/17 16:56; Admin Dose 6 MG; Start 01/21/17 at 10:00 Metoprolol Succinate 50 mg 50 mg QHS PO Last administered on 01/21/17 20:27; Admin Dose 50 MG; Start 01/21/17 at 21:00 Total Parenteral Nutrition 1,000 ml @ 80 mls/hr [id number] IV Last administered on 01/22/17 05:05; Admin Dose 80 MLS/HR; Start 01/21/17 at 16:30 Potassium Phosphate 50 meq/ Sodium Chloride 261.3636 ml @ 43.561 m... ONCE ONCE IVPB Last administered on 01/22/17 14:55; Admin Dose 43.561 MLS/HR; Start 01/22/17 at 16:00; Stop 01/22/17 at 21:59 Sodium Phosphate/ Sodium Chloride (Sodium Phosphate/NS) 255 ml @ 63.75 mls/ hr ONCE ONCE IVPB Last administered on 01/22/17 14:55; Admin Dose 63.75 MLS/HR; Start 01/22/17 at 16:00; Stop 01/22/17 at 19:59 TAWNY CELIS MD Jan 22, 2017 17:21
[2017-01-22] MEDS: LEVOFLOXACIN 750MG/D5W (PMX) 150 ML IVPB SCH (18:58)
[2017-01-22] MEDS: METOPROLOL (XL) 25 MG TAB PO SCH (20:22)
--- NOTE | 2017-01-22 23:04 | CONS ---
Date/Time of Note Date/Time of Note DATE: 01/22/17 TIME: 22:57 Late entry;patient seen 01/21/2017 @ 16:00PM Assessment/Plan Assessment/Plan Problems: (1) Hypoparathyroidism, unspecified Status: Acute Comment: PTH results pending (2) Hypocalcemia Status: Acute Comment: Receiving replacement with calcium gluconate and calcitriol Additional Assessment/Plan Will order another dose of IV calcium gluconate given patient's symptoms of neuromuscular excitability. Ionized calcium to be drawn in am. Consultation Date/Type/Reason Admit Date/Time Jan 09, 2017 at 19:08 Initial Consult Date 01/15/17 Type of Consultation: Endocrine Reason for Consultation Hypocalcemia Referring Provider: YAO RAHMAN 24 HR Interval Summary Free Text/Dictation Patient complain of perioral tingling and total body twitching. Exam/Review of Systems Vital Signs Vitals Vital Signs Date Time Temp Pulse Resp B/P Pulse Ox O2 Delivery O2 Flow Rate FiO2 01/22/17 22:00 107 17 147/88 99 Nasal Cannula 01/22/17 20:00 98.2 01/22/17 19:52 3.0 01/22/17 17:22 32 Intake and Output 01/21/17 01/21/17 01/22/17 15:00 23:00 07:00 Intake Total 1279 ml 1665 ml 1795 ml Output Total 650 ml 650 ml 1100 ml Balance 629 ml 1015 ml 695 ml Exam Constitutional: distress Eyes: EOMI, PERRL Neck: supple Respiratory: clear to auscultation, normal air movement Cardiovascular: regular rate and rhythm Gastrointestinal: tender Musculoskeletal: nl extremities to inspection Neurological: other (no chvostek nor trousseau) Results Result Diagram: 01/22/17 0418 01/22/17 0418 Results 24 hrs Laboratory Tests Test 01/22/17 04:00 01/22/17 04:18 Ionized Calcium (Measured) 1.1 White Blood Count 3.6 #L Red Blood Count 2.59 L Hemoglobin 7.3 L Hematocrit 22.2 L Mean Corpuscular Volume 85.7 Mean Corpuscular Hemoglobin 28.2 L Mean Corpuscular Hemoglobin Concent 32.9 Red Cell Distribution Width 16.8 H Platelet Count 103 #L Mean Platelet Volume 10.6 H Neutrophils % 95.6 H Lymphocytes % 1.4 L Monocytes % 1.9 Eosinophils % 0.8 Basophils % 0.0 Nucleated Red Blood Cells % 0.0 Neutrophils # 3.5 Lymphocytes # 0.1 L Monocytes # 0.1 L Eosinophils # 0.0 Basophils # 0.0 Nucleated Red Blood Cells # 0.0 Sodium Level 127 L Potassium Level 3.5 Chloride Level 94 L Carbon Dioxide Level 29 Anion Gap 8 Blood Urea Nitrogen 5 L Creatinine 0.45 L Glucose Level 102 Calcium Level 7.4 L Phosphorus Level 1.1 L Magnesium Level 1.9 Medications Medications Current Medications Docusate Sodium (Colace) 100 mg Q12H PRN PO CONSTIPATION Last administered on 10:46; Admin Dose 100 MG; Start 01/09/17 at 19:30 Magnesium Hydroxide (Milk Of Mag) 30 ml DAILY PRN PO CONSTIPATION; Start at 19:30 Sodium Biphosphate/ Sodium Phosphate (Fleet Enema) 133 ml DAILY PRN [place] CONSTIPATION; Start 01/09/17 at 19:30 Heparin Sodium (Porcine) 5000 unit 5,000 unit Q12 SC Last administered on 09:43; Admin Dose 5,000 UNIT; Start 01/09/17 at 21:00; Status Future Hold Piperacillin Sod/ Tazobactam Sod (Zosyn 3.375gm/ 100 ml (Pmx)) 100 ml @ 200 mls /hr Q6 IVPB Last administered on 01/22/17 18:28; Admin Dose 200 MLS/HR; Start 01/10/17 at 00:00 Nitroglycerin (Nitroglycerin (Sl Tab) 0.4 Mg) 1 tab Q5M PRN SL ANGINA; Start at 19:30 Miscellaneous Information (Pending Santyl Order For Wound Care) This patient aranda... PRN PRN XX WOUND CARE; Start 01/10/17 at 03:30 Ondansetron HCl 4 mg 4 mg Q6 IV Last administered on 01/22/17 18:28; Admin Dose 4 MG; Start 01/10/17 at 15:30 Acetaminophen (Ofirmev 1000mg/ 100ml Iv) 100 ml @ 400 mls/hr Q6 IVPB Last administered on 01/22/17 18:28; Admin Dose 400 MLS/HR; Start 01/10/17 at 16:30 IV Flush (NS 10 ml) 10 ml PRN PRN IV IV PROTOCOL; Start 01/10/17 at 20:30 Ergocalciferol (Drisdol) 50,000 unit Sa@16 PO Last administered on 01/21/17 18 :56; Admin Dose 50,000 UNIT; Start 01/14/17 at 16:00 Prednisone (Prednisone) 10 mg DAILY PO Last administered on 01/22/17 08:47; Admin Dose 10 MG; Start 01/15/17 at 09:00 Famotidine 20 mg 20 mg BID IV Last administered on 01/22/17 20:22; Admin Dose 20 MG; Start 01/17/17 at 21:00 Levofloxacin/ Dextrose (Levaquin 750 Mg/ D5W 150 ml (Pmx)) 150 ml @ 100 mls/hr Q24H IVPB Last administered on 01/22/17 18:58; Admin Dose 100 MLS/HR; Start at 16:00 Fentanyl 125 mcg 125 mcg Q2H PRN IV PAIN Last administered on 01/22/17 22:49; Admin Dose 125 MCG; Start 01/18/17 at 17:00 Trimethoprim/ Sulfamethoxazole/ Dextrose (Bactrim/D5W) 525 ml @ 343.333 mls/hr Q8 IVPB Last administered on 01/22/17 22:08; Admin Dose 343.333 MLS/HR; Start 01/19/17 at 13:30 Hydromorphone HCl (Dilaudid PSYCH RN) 1.6MG/HR CONTINUOUS RATE ... Q4PCA IV Last administered on 01/22/17 20:33; Admin Dose 6 MG; Start 01/21/17 at 10:00 Metoprolol Succinate 50 mg 50 mg QHS PO Last administered on 01/22/17 20:22; Admin Dose 50 MG; Start 01/21/17 at 21:00 Total Parenteral Nutrition (Tpn) 1,000 ml @ 80 mls/hr [id number] IV Last administered on 01/22/17 18:28; Admin Dose 80 MLS/HR; Start 01/21/17 at 16:30 LIANA ARRIAZA MD Jan 22, 2017 23:04
--- NOTE | 2017-01-22 23:09 | CONS ---
Date/Time of Note Date/Time of Note DATE: 01/22/17 TIME: 23:04 LATE ENTRY: PATIENT SEEN AT12:00 TODAY Assessment/Plan Assessment/Plan Problems: (1) Hypocalcemia Status: Acute Comment: EUCALCEMIC NOW WITH IONIZED CALCIUM WITHIN NORMAL RANGE INTACT PTH RESULTS STILL PENDING Additional Assessment/Plan CONTINUE CALCITRIOL AND CALCIUM GLUCOANTE REPLACEMENT. IONIZED CALCIUM LEVEL IN AM Consultation Date/Type/Reason Admit Date/Time Jan 09, 2017 at 19:08 Initial Consult Date 01/15/17 Type of Consultation: Endocrine Reason for Consultation HYPOCALCEMIA Referring Provider: YAO RAHMAN 24 HR Interval Summary Free Text/Dictation PATIENT C/O PAIN. LESS PERIORAL TINGLING, BUT NOW WITH RIGORS. Exam/Review of Systems Vital Signs Vitals Vital Signs Date Time Temp Pulse Resp B/P Pulse Ox O2 Delivery O2 Flow Rate FiO2 01/22/17 22:00 107 17 147/88 99 Nasal Cannula 01/22/17 20:00 98.2 01/22/17 19:52 3.0 01/22/17 17:22 32 Intake and Output 01/21/17 01/21/17 01/22/17 15:00 23:00 07:00 Intake Total 1279 ml 1665 ml 1795 ml Output Total 650 ml 650 ml 1100 ml Balance 629 ml 1015 ml 695 ml Exam Constitutional: alert, distress, oriented Eyes: EOMI, PERRL, nl conjunctiva Neck: supple Respiratory: clear to auscultation Cardiovascular: regular rate and rhythm Gastrointestinal: tender Musculoskeletal: nl extremities to inspection Results LABS REVIEWED Result Diagram: 01/22/17 0418 01/22/17 0418 Results 24 hrs Laboratory Tests Test 01/22/17 04:00 01/22/17 04:18 Ionized Calcium (Measured) 1.1 White Blood Count 3.6 #L Red Blood Count 2.59 L Hemoglobin 7.3 L Hematocrit 22.2 L Mean Corpuscular Volume 85.7 Mean Corpuscular Hemoglobin 28.2 L Mean Corpuscular Hemoglobin Concent 32.9 Red Cell Distribution Width 16.8 H Platelet Count 103 #L Mean Platelet Volume 10.6 H Neutrophils % 95.6 H Lymphocytes % 1.4 L Monocytes % 1.9 Eosinophils % 0.8 Basophils % 0.0 Nucleated Red Blood Cells % 0.0 Neutrophils # 3.5 Lymphocytes # 0.1 L Monocytes # 0.1 L Eosinophils # 0.0 Basophils # 0.0 Nucleated Red Blood Cells # 0.0 Sodium Level 127 L Potassium Level 3.5 Chloride Level 94 L Carbon Dioxide Level 29 Anion Gap 8 Blood Urea Nitrogen 5 L Creatinine 0.45 L Glucose Level 102 Calcium Level 7.4 L Phosphorus Level 1.1 L Magnesium Level 1.9 Medications Medications Current Medications Docusate Sodium (Colace) 100 mg Q12H PRN PO CONSTIPATION Last administered on 10:46; Admin Dose 100 MG; Start 01/09/17 at 19:30 Magnesium Hydroxide (Milk Of Mag) 30 ml DAILY PRN PO CONSTIPATION; Start at 19:30 Sodium Biphosphate/ Sodium Phosphate (Fleet Enema) 133 ml DAILY PRN [place] CONSTIPATION; Start 01/09/17 at 19:30 Heparin Sodium (Porcine) 5000 unit 5,000 unit Q12 SC Last administered on 09:43; Admin Dose 5,000 UNIT; Start 01/09/17 at 21:00; Status Future Hold Piperacillin Sod/ Tazobactam Sod (Zosyn 3.375gm/ 100 ml (Pmx)) 100 ml @ 200 mls /hr Q6 IVPB Last administered on 01/22/17 18:28; Admin Dose 200 MLS/HR; Start 01/10/17 at 00:00 Nitroglycerin (Nitroglycerin (Sl Tab) 0.4 Mg) 1 tab Q5M PRN SL ANGINA; Start at 19:30 Miscellaneous Information (Pending [facility] Order For Wound Care) This patient aranda... PRN PRN XX WOUND CARE; Start 01/10/17 at 03:30 Ondansetron HCl 4 mg 4 mg Q6 IV Last administered on 01/22/17 18:28; Admin Dose 4 MG; Start 01/10/17 at 15:30 Acetaminophen (Ofirmev 1000mg/ 100ml Iv) 100 ml @ 400 mls/hr Q6 IVPB Last administered on 01/22/17 18:28; Admin Dose 400 MLS/HR; Start 01/10/17 at 16:30 IV Flush (NS 10 ml) 10 ml PRN PRN IV IV PROTOCOL; Start 01/10/17 at 20:30 Ergocalciferol (Drisdol) 50,000 unit Sa@16 PO Last administered on 01/21/17 18 :56; Admin Dose 50,000 UNIT; Start 01/14/17 at 16:00 Prednisone (Prednisone) 10 mg DAILY PO Last administered on 01/22/17 08:47; Admin Dose 10 MG; Start 01/15/17 at 09:00 Famotidine 20 mg 20 mg BID IV Last administered on 01/22/17 20:22; Admin Dose 20 MG; Start 01/17/17 at 21:00 Levofloxacin/ Dextrose (Levaquin 750 Mg/ D5W 150 ml (Pmx)) 150 ml @ 100 mls/hr Q24H IVPB Last administered on 01/22/17 18:58; Admin Dose 100 MLS/HR; Start at 16:00 Fentanyl 125 mcg 125 mcg Q2H PRN IV PAIN Last administered on 01/22/17 22:49; Admin Dose 125 MCG; Start 01/18/17 at 17:00 Trimethoprim/ Sulfamethoxazole/ Dextrose (Bactrim/D5W) 525 ml @ 343.333 mls/hr Q8 IVPB Last administered on 01/22/17 22:08; Admin Dose 343.333 MLS/HR; Start 01/19/17 at 13:30 Hydromorphone HCl (Dilaudid [employer]) 1.6MG/HR CONTINUOUS RATE ... Q4PCA IV Last administered on 01/22/17 20:33; Admin Dose 6 MG; Start 01/21/17 at 10:00 Metoprolol Succinate 50 mg 50 mg QHS PO Last administered on 01/22/17 20:22; Admin Dose 50 MG; Start 01/21/17 at 21:00 Total Parenteral Nutrition (Tpn) 1,000 ml @ 80 mls/hr [id number] IV Last administered on 01/22/17 18:28; Admin Dose 80 MLS/HR; Start 01/21/17 at 16:30 LIANA ARRIAZA MD Jan 22, 2017 23:09
[2017-01-23] VITALS (57 sets, daily range): BP systolic 106–194; BP diastolic 54–163; PULSE 101–125; RESP 15–29
[2017-01-23] MEDS: HYDROmorphONE 0.2 MG/ML PCA IV SCH ×4 (00:33→12:19)
[2017-01-23] MEDS: ACETAMINOPHEN 1000MG/100ML IV 100 ML IVPB SCH ×4 (00:36→17:57)
[2017-01-23] MEDS: ONDANSETRON 4 MG INJ IV SCH ×4 (00:36→17:51)
[2017-01-23] MEDS: PIPER-TAZO 3.375 GM IV (PMX) 100 ML IVPB SCH ×4 (00:37→17:57)
[2017-01-23] MEDS: LEVALBUTEROL (NEB) 0.63 MG/3 ML AMP HHN SCH ×4 (01:08→20:35)
[2017-01-23] MEDS: IPRATROPIUM (NEB) 0.5 MG/2.5 ML AMP HHN SCH ×4 (01:08→20:36)
[2017-01-23] MEDS: FENTAnyl 50 MCG/ML VIAL IV PRN ×9 (02:52→22:07)
[2017-01-23 05:15] LABS: ABNORMAL IP MESSAGE 1; HEMATOCRIT 20.2 % (42.0-52.0); MEAN CORPUSCULAR HEMOGLOBIN 28.9 pg (29.0-33.0); MEAN CORPUSCULAR HGB CONC 33.7 g/dl (32.0-37.0); MEAN PLATELET VOLUME 11.1 fl (7.4-10.4); PLATELET COUNT 81 10^3/UL (140-415); POSITIVE DIFF @See below; RED BLOOD COUNT 2.35 10^6/ul (4.70-6.10); RED CELL DISTRIBUTION WIDTH 17.1 % (11.5-14.5); WHITE BLOOD COUNT 2.7 10^3/ul (4.8-10.8)
[2017-01-23 05:18] LABS: CALCIUM 7.5 mg/dl (8.4-10.2); CREATININE 0.4 mg/dl (0.61-1.24); MAGNESIUM 1.8 mg/dl (1.7-2.5); PHOSPHORUS 1.8 mg/dl (2.5-4.9); POTASSIUM 3.7 mmol/L (3.5-5.1)
[2017-01-23 05:23] LABS: HEMOGLOBIN 6.8 g/dl (14.0-18.0)
[2017-01-23] MEDS: TRIMETHOPRIM/SULFAMETHOXAZOLE 25 ML in DEXTROSE 5% 500 ML IVPB SCH ×3 (05:47→21:23)
[2017-01-23] MEDS: TPN 1,000 ML IV SCH ×2 (06:48→17:57)
[2017-01-23] MEDS: FAMOTIDINE 20 MG INJ IV SCH ×2 (08:13→21:22)
[2017-01-23] MEDS: predniSONE 20 MG TAB PO SCH (08:14)
[2017-01-23] MEDS ORDERED: SODIUM PHOSPHATE 15 MMOL in SOD CHLORIDE 0.9% 250 ML IVPB ONE (09:00)
--- NOTE | 2017-01-23 10:29 | CONS ---
Date/Time of Note Date/Time of Note DATE: 01/23/17 TIME: 10:28 Consult Date/Type/Reason Admit Date/Time Jan 09, 2017 at 19:08 Initial Consult Date 01/15/17 Type of Consultation: Pulmonary Ordering Provider: YAO RAHMAN Subjective Sleeping comfortable this morning. Objective Vital Signs Date Time Temp Pulse Resp B/P Pulse Ox O2 Delivery O2 Flow Rate FiO2 01/23/17 08:00 98.6 01/23/17 08:00 104 01/23/17 08:00 Nasal Cannula 3.0 01/23/17 07:23 18 100 01/23/17 05:00 134/88 01/22/17 17:22 32 Intake and Output 01/22/17 01/22/17 01/23/17 15:00 23:00 07:00 Intake Total 1775 ml 1405 ml 1615 ml Output Total 900 ml 625 ml 2000 ml Balance 875 ml 780 ml -385 ml Exam PHYSICAL EXAMINATION GENERAL: Well-nourished well-developed gentleman nasal cannula oxygen VITAL SIGNS: see below. HEENT: Pupils equal, round, and reactive to light. CARDIAC: S1, S2, no added sounds or movements CHEST: Diminished air entry bilaterally. Bilateral rales. ABDOMEN: Mildly distended. Bowel sounds present no guarding or rebound EXTREMITIES: No cyanosis, clubbing edema +1 NEUROLOGIC: Generalized weakness Results/Medications Result Diagram: 01/23/17 0400 01/23/17 0400 Results 24 hrs Laboratory Tests Test 01/23/17 04:00 01/23/17 05:15 White Blood Count 2.7 #L Red Blood Count 2.35 L Hemoglobin 6.8 *L Hematocrit 20.2 L Mean Corpuscular Volume 86.0 Mean Corpuscular Hemoglobin 28.9 L Mean Corpuscular Hemoglobin Concent 33.7 Red Cell Distribution Width 17.1 H Platelet Count 81 #L Mean Platelet Volume 11.1 H Neutrophils % Lymphocytes % Monocytes % Eosinophils % Basophils % Nucleated Red Blood Cells % 0.0 Neutrophils # Lymphocytes # Monocytes # Eosinophils # Basophils # Nucleated Red Blood Cells # Sodium Level 132 L Potassium Level 3.7 Chloride Level 92 L Carbon Dioxide Level 30 Anion Gap 14 Blood Urea Nitrogen 6 L Creatinine 0.40 L Glucose Level 96 Calcium Level 7.5 L Ionized Calcium (Measured) 1.0 L Phosphorus Level 1.8 L Magnesium Level 1.8 Lab Scanned Report BLOOD TRANSFUSION Medications Current Medications Docusate Sodium (Colace) 100 mg Q12H PRN PO CONSTIPATION Last administered on 10:46; Admin Dose 100 MG; Start 01/09/17 at 19:30 Magnesium Hydroxide (Milk Of Mag) 30 ml DAILY PRN PO CONSTIPATION; Start at 19:30 Sodium Biphosphate/ Sodium Phosphate (Fleet Enema) 133 ml DAILY PRN [place] CONSTIPATION; Start 01/09/17 at 19:30 Heparin Sodium (Porcine) 5000 unit 5,000 unit Q12 SC Last administered on 09:43; Admin Dose 5,000 UNIT; Start 01/09/17 at 21:00; Status Future Hold Piperacillin Sod/ Tazobactam Sod (Zosyn 3.375gm/ 100 ml (Pmx)) 100 ml @ 200 mls /hr Q6 IVPB Last administered on 01/23/17 05:46; Admin Dose 200 MLS/HR; Start 01/10/17 at 00:00 Nitroglycerin (Nitroglycerin (Sl Tab) 0.4 Mg) 1 tab Q5M PRN SL ANGINA; Start at 19:30 Miscellaneous Information (Pending [facility] Order For Wound Care) This patient aranda... PRN PRN XX WOUND CARE; Start 01/10/17 at 03:30 Ondansetron HCl 4 mg 4 mg Q6 IV Last administered on 01/23/17 06:48; Admin Dose 4 MG; Start 01/10/17 at 15:30 Acetaminophen (Ofirmev 1000mg/ 100ml Iv) 100 ml @ 400 mls/hr Q6 IVPB Last administered on 01/23/17 05:42; Admin Dose 400 MLS/HR; Start 01/10/17 at 16:30 IV Flush (NS 10 ml) 10 ml PRN PRN IV IV PROTOCOL; Start 01/10/17 at 20:30 Ergocalciferol (Drisdol) 50,000 unit Sa@16 PO Last administered on 01/21/17 18 :56; Admin Dose 50,000 UNIT; Start 01/14/17 at 16:00 Prednisone (Prednisone) 10 mg DAILY PO Last administered on 01/23/17 08:14; Admin Dose 10 MG; Start 01/15/17 at 09:00 Famotidine 20 mg 20 mg BID IV Last administered on 01/23/17 08:13; Admin Dose 20 MG; Start 01/17/17 at 21:00 Levofloxacin/ Dextrose (Levaquin 750 Mg/ D5W 150 ml (Pmx)) 150 ml @ 100 mls/hr Q24H IVPB Last administered on 01/22/17 18:58; Admin Dose 100 MLS/HR; Start at 16:00 Fentanyl 125 mcg 125 mcg Q2H PRN IV PAIN Last administered on 01/23/17 08:13; Admin Dose 125 MCG; Start 01/18/17 at 17:00 Trimethoprim/ Sulfamethoxazole/ Dextrose (Bactrim/D5W) 525 ml @ 343.333 mls/hr Q8 IVPB Last administered on 01/23/17 05:47; Admin Dose 343.333 MLS/HR; Start 01/19/17 at 13:30 Hydromorphone HCl (Dilaudid TEACHER KINDERGARTEN) 1.6MG/HR CONTINUOUS RATE ... Q4PCA IV Last administered on 01/23/17 08:15; Admin Dose 6 MG; Start 01/21/17 at 10:00 Metoprolol Succinate 50 mg 50 mg QHS PO Last administered on 01/22/17 20:22; Admin Dose 50 MG; Start 01/21/17 at 21:00 Total Parenteral Nutrition 1,000 ml @ 80 mls/hr [id number] IV Last administered on 01/23/17 06:48; Admin Dose 80 MLS/HR; Start 01/21/17 at 16:30 Sodium Phosphate/ Sodium Chloride (Sodium Phosphate/NS) 255 ml @ 63.75 mls/ hr ONCE ONCE IVPB ; Start 01/23/17 at 09:00; Stop 01/23/17 at 12:59 Assessment/Plan Chief Complaint/Hosp Course IMP: 1. Severe pancreatitis--ongoing abdominal pain. Discussed with general surgery. Questionable biliary calculi because of ongoing abdominal pain pancreatitis and elevated LFTs. 2. Severe HypoCa++--2/2 #1 continue endocrinology recommendations for continued 3. UTI 4. Anaplastic B-cell lymphoma 5. RAMU, improved 6. Pulmonary nodular opacities--c/w metastatic lymphoma 7. Anemia likely multifactorial. 8. Ongoing sinus tachycardia likely combination of anemia, pain, ongoing inflammation. RECS: 1. Continue fluids per nephrology, possible SIADH 2. CT abdomen noted. 3. Endocrinology recommendations with potassium replacement, calcium management. 4. Pain control via TEACHER KINDERGARTEN 5. Follow lytes 6. Surgery recommendations advance diet per surgery recommendations 7. PT evaluation out of bed if tolerated 8. GI evaluation for possible biliary calculi. 9. Transfuse 2 units packed red blood cells. Will discuss with GI regarding possible need for endoscopy. Discussed with primary team. Problems: BECKA DINH MD[facility] Jan 23, 2017 10:29
[2017-01-23] MEDS ORDERED: FUROSEMIDE 40 MG INJ IV ONE (10:30)
[2017-01-23 10:46] LABS: LYMPHOCYTES # 0.1 10^3/ul (0.8-2.9); MONOCYTE # 0.1 10^3/ul (0.3-0.9); MONOCYTES % (M) 2 % (0-11); NEUTROPHIL # 2.6 10^3/ul (1.6-7.5); POLYCHROMASIA 1+ (0-0)
--- NOTE | 2017-01-23 12:39 | CONS ---
Date/Time of Note Date/Time of Note DATE: 01/23/17 TIME: 12:38 Assessment/Plan Assessment/Plan Chief Complaint/Hosp Course Anaplastic B-cell Lymphoma pt was dx'd with lymphoma a year and half ago , it turned into an aggressive type. His last chemo was a month ago and hadn't had since due to experiencing similar presenting symptoms. record from pt's oncologist Kain Phillip LEUKOPENIA IN PT WITH HNL ON CHEMO AND WITH SEPTIC PICTURE MONITOR BLOOD COUNT CLOSELY POST NEUPOGEN PANCYTOPENIA POST CHEMO CONT TO MONITOR PRBC NEEDED Sepsis 2/2 PNA - abx, IVF - f/u culture results - ID Abd Pain with N/V: 2/2 known lymphoma - pain mgmt - Anti-emetics Hyponatremia and Hypokalemia: 2/2 vomiting - NS IVF - replete K+ as needed Presumed RAMU: likely pre-renal 2/2 vomiting - cont IVF for now Problems: Consultation Date/Type/Reason Admit Date/Time Jan 09, 2017 at 19:08 Initial Consult Date 01/10/17 Type of Consultation: [facility] Referring Provider: YAO RAHMAN 24 HR Interval Summary Free Text/Dictation all noted Exam/Review of Systems Vital Signs Vitals Vital Signs Date Time Temp Pulse Resp B/P Pulse Ox O2 Delivery O2 Flow Rate FiO2 01/23/17 08:00 98.6 01/23/17 08:00 104 01/23/17 08:00 Nasal Cannula 3.0 01/23/17 07:23 18 100 01/23/17 05:00 134/88 01/22/17 17:22 32 Intake and Output 01/22/17 01/22/17 01/23/17 15:00 23:00 07:00 Intake Total 1775 ml 1405 ml 1615 ml Output Total 900 ml 625 ml 2000 ml Balance 875 ml 780 ml -385 ml Exam GENERAL: Well-nourished well-developed gentleman nasal cannula oxygen VITAL SIGNS: see below. HEENT: Pupils equal, round, and reactive to light. CARDIAC: S1, S2, no added sounds or movements CHEST: Diminished air entry bilaterally. Bilateral rales. ABDOMEN: Mildly distended. Bowel sounds present no guarding or rebound EXTREMITIES: No cyanosis, clubbing edema +1 NEUROLOGIC: Generalized weakness Results Result Diagram: 01/23/17 0400 01/23/17 0400 Results 24 hrs Laboratory Tests Test 01/23/17 04:00 01/23/17 05:15 White Blood Count 2.7 #L Red Blood Count 2.35 L Hemoglobin 6.8 *L Hematocrit 20.2 L Mean Corpuscular Volume 86.0 Mean Corpuscular Hemoglobin 28.9 L Mean Corpuscular Hemoglobin Concent 33.7 Red Cell Distribution Width 17.1 H Platelet Count 81 #L Mean Platelet Volume 11.1 H Neutrophils % Segmented Neutrophils % (Manual) 96 H Lymphocytes % Lymphocytes % (Manual) 2 L Monocytes % Monocytes % (Manual) 2 Eosinophils % Basophils % Nucleated Red Blood Cells % 0.0 Neutrophils # 2.6 Absolute Lymphocytes (Manual) 0.0 L Lymphocytes # 0.1 L Monocytes # 0.1 L Absolute Monocytes (Manual) 0.0 L Eosinophils # Basophils # Nucleated Red Blood Cells # Polychromasia 1+ Sodium Level 132 L Potassium Level 3.7 Chloride Level 92 L Carbon Dioxide Level 30 Anion Gap 14 Blood Urea Nitrogen 6 L Creatinine 0.40 L Glucose Level 96 Calcium Level 7.5 L Ionized Calcium (Measured) 1.0 L Phosphorus Level 1.8 L Magnesium Level 1.8 Lab Scanned Report BLOOD TRANSFUSION Medications Medications Current Medications Docusate Sodium (Colace) 100 mg Q12H PRN PO CONSTIPATION Last administered on 10:46; Admin Dose 100 MG; Start 01/09/17 at 19:30 Magnesium Hydroxide (Milk Of Mag) 30 ml DAILY PRN PO CONSTIPATION; Start at 19:30 Sodium Biphosphate/ Sodium Phosphate (Fleet Enema) 133 ml DAILY PRN [place] CONSTIPATION; Start 01/09/17 at 19:30 Heparin Sodium (Porcine) 5000 unit 5,000 unit Q12 SC Last administered on 09:43; Admin Dose 5,000 UNIT; Start 01/09/17 at 21:00; Status Future Hold Piperacillin Sod/ Tazobactam Sod (Zosyn 3.375gm/ 100 ml (Pmx)) 100 ml @ 200 mls /hr Q6 IVPB Last administered on 01/23/17 05:46; Admin Dose 200 MLS/HR; Start 01/10/17 at 00:00 Nitroglycerin (Nitroglycerin (Sl Tab) 0.4 Mg) 1 tab Q5M PRN SL ANGINA; Start at 19:30 Miscellaneous Information (Pending Santyl Order For Wound Care) This patient aranda... PRN PRN XX WOUND CARE; Start 01/10/17 at 03:30 Ondansetron HCl 4 mg 4 mg Q6 IV Last administered on 01/23/17 06:48; Admin Dose 4 MG; Start 01/10/17 at 15:30 Acetaminophen (Ofirmev 1000mg/ 100ml Iv) 100 ml @ 400 mls/hr Q6 IVPB Last administered on 01/23/17 05:42; Admin Dose 400 MLS/HR; Start 01/10/17 at 16:30 IV Flush (NS 10 ml) 10 ml PRN PRN IV IV PROTOCOL; Start 01/10/17 at 20:30 Ergocalciferol (Drisdol) 50,000 unit Sa@16 PO Last administered on 01/21/17 18 :56; Admin Dose 50,000 UNIT; Start 01/14/17 at 16:00 Prednisone (Prednisone) 10 mg DAILY PO Last administered on 01/23/17 08:14; Admin Dose 10 MG; Start 01/15/17 at 09:00 Famotidine 20 mg 20 mg BID IV Last administered on 01/23/17 08:13; Admin Dose 20 MG; Start 01/17/17 at 21:00 Levofloxacin/ Dextrose (Levaquin 750 Mg/ D5W 150 ml (Pmx)) 150 ml @ 100 mls/hr Q24H IVPB Last administered on 01/22/17 18:58; Admin Dose 100 MLS/HR; Start at 16:00 Fentanyl 125 mcg 125 mcg Q2H PRN IV PAIN Last administered on 01/23/17 11:22; Admin Dose 125 MCG; Start 01/18/17 at 17:00 Trimethoprim/ Sulfamethoxazole/ Dextrose (Bactrim/D5W) 525 ml @ 343.333 mls/hr Q8 IVPB Last administered on 01/23/17 05:47; Admin Dose 343.333 MLS/HR; Start 01/19/17 at 13:30 Hydromorphone HCl (Dilaudid BREAKDOWN MAN) 1.6MG/HR CONTINUOUS RATE ... Q4PCA IV Last administered on 01/23/17 12:19; Admin Dose 6 MG; Start 01/21/17 at 10:00 Metoprolol Succinate 50 mg 50 mg QHS PO Last administered on 01/22/17 20:22; Admin Dose 50 MG; Start 01/21/17 at 21:00 Total Parenteral Nutrition 1,000 ml @ 80 mls/hr [id number] IV Last administered on 01/23/17 06:48; Admin Dose 80 MLS/HR; Start 01/21/17 at 16:30 Sodium Phosphate/ Sodium Chloride (Sodium Phosphate/NS) 255 ml @ 63.75 mls/ hr ONCE ONCE IVPB Last administered on 01/23/17 11:15; Admin Dose 63.75 MLS/HR; Start 01/23/17 at 09:00; Stop 01/23/17 at 12:59 MOIRA BIRMINGHAM MD Jan 23, 2017 12:39
--- NOTE | 2017-01-23 13:06 | CONS ---
Date/Time of Note Date/Time of Note DATE: 01/23/17 TIME: 13:04 Assessment/Plan Assessment/Plan Chief Complaint/Hosp Course 31-year-old gentleman with a history of a non-Hodgkin's large B cell anaplastic lymphoma diagnosed roughly 18 months ago. He came into the hospital with abdominal pain but at that time had a low lipase level. At that time his calciums were normal his thyroid function was normal he had on appropriate serum cortisol despite having been on tapering dosages of prednisone as an outpatient. During the course of hospitalization his abdominal symptoms changed and Dr. Rahman reordered his lipase which was markedly elevated. Because of this he is been added the diagnosis of acute pancreatitis. The patient does not consume alcohol and the best of her knowledge has not been on any medications and I do this however he was recently placed on Bactrim. I have contacted [facility] to get the blood test reports. While his serum calcium was 5.3 with a low ionized calcium he had a PTH in the mid 20s. This is an inappropriately low normal PTH in the setting of severe hypocalcemia. This indicates hypo-parathyroidism. The patient informs me there is no prior history of this. Since he has not had neck surgery this leaves us to look at what other type of destructive process of the parathyroids could be going on here. Problems: (1) Hypophosphatemia Status: Acute Comment: This is being replaced IV. Please note since he is on TPN he gives us a little bit more adequate sources to help control him. (2) Hypoparathyroidism, unspecified Status: Acute Comment: Even though the lab has not put in the computer record I checked with [facility] and received PTH levels which were inappropriately low given his serum calcium. We are correcting with calcitriol. I believe another dose should be appropriate today. (3) Lymphoma, anaplastic large cell, abdomen Status: Chronic Comment: Hematology has written a follow-up note today. I am still curious as to whether or not we should really actively consider transferring him to a higher level of care Consultation Date/Type/Reason Admit Date/Time Jan 09, 2017 at 19:08 Initial Consult Date 01/15/17 Type of Consultation: Endocrinology Reason for Consultation Hypocalcemia with decreased PTH levels Referring Provider: YAO RAHMAN 24 HR Interval Summary Free Text/Dictation Patient remains unable to take p.o. He is on TPN at this time. Exam/Review of Systems Vital Signs Vitals Vital Signs Date Time Temp Pulse Resp B/P Pulse Ox O2 Delivery O2 Flow Rate FiO2 01/23/17 08:00 98.6 01/23/17 08:00 104 01/23/17 08:00 Nasal Cannula 3.0 01/23/17 07:23 18 100 01/23/17 05:00 134/88 01/22/17 17:22 32 Intake and Output 01/22/17 01/22/17 01/23/17 15:00 23:00 07:00 Intake Total 1775 ml 1405 ml 1615 ml Output Total 900 ml 625 ml 2000 ml Balance 875 ml 780 ml -385 ml Exam No changes Results Result Diagram: 01/23/17 0400 01/23/17 0400 Results 24 hrs Laboratory Tests Test 01/23/17 04:00 01/23/17 05:15 White Blood Count 2.7 #L Red Blood Count 2.35 L Hemoglobin 6.8 *L Hematocrit 20.2 L Mean Corpuscular Volume 86.0 Mean Corpuscular Hemoglobin 28.9 L Mean Corpuscular Hemoglobin Concent 33.7 Red Cell Distribution Width 17.1 H Platelet Count 81 #L Mean Platelet Volume 11.1 H Neutrophils % Segmented Neutrophils % (Manual) 96 H Lymphocytes % Lymphocytes % (Manual) 2 L Monocytes % Monocytes % (Manual) 2 Eosinophils % Basophils % Nucleated Red Blood Cells % 0.0 Neutrophils # 2.6 Absolute Lymphocytes (Manual) 0.0 L Lymphocytes # 0.1 L Monocytes # 0.1 L Absolute Monocytes (Manual) 0.0 L Eosinophils # Basophils # Nucleated Red Blood Cells # Polychromasia 1+ Sodium Level 132 L Potassium Level 3.7 Chloride Level 92 L Carbon Dioxide Level 30 Anion Gap 14 Blood Urea Nitrogen 6 L Creatinine 0.40 L Glucose Level 96 Calcium Level 7.5 L Ionized Calcium (Measured) 1.0 L Phosphorus Level 1.8 L Magnesium Level 1.8 Lab Scanned Report BLOOD TRANSFUSION Medications Medications Current Medications Docusate Sodium (Colace) 100 mg Q12H PRN PO CONSTIPATION Last administered on t 10:46; Admin Dose 100 MG; Start 01/09/17 at 19:30 Magnesium Hydroxide (Milk Of Mag) 30 ml DAILY PRN PO CONSTIPATION; Start at 19:30 Sodium Biphosphate/ Sodium Phosphate (Fleet Enema) 133 ml DAILY PRN [place] CONSTIPATION; Start 01/09/17 at 19:30 Heparin Sodium (Porcine) 5000 unit 5,000 unit Q12 SC Last administered on 09:43; Admin Dose 5,000 UNIT; Start 01/09/17 at 21:00; Status Future Hold Piperacillin Sod/ Tazobactam Sod (Zosyn 3.375gm/ 100 ml (Pmx)) 100 ml @ 200 mls /hr Q6 IVPB Last administered on 01/23/17 05:46; Admin Dose 200 MLS/HR; Start 01/10/17 at 00:00 Nitroglycerin (Nitroglycerin (Sl Tab) 0.4 Mg) 1 tab Q5M PRN SL ANGINA; Start at 19:30 [facility] This patient aranda... PRN PRN XX WOUND CARE; Start 01/10/17 at 03:30 Ondansetron HCl 4 mg 4 mg Q6 IV Last administered on 01/23/17 06:48; Admin Dose 4 MG; Start 01/10/17 at 15:30 Acetaminophen (Ofirmev 1000mg/ 100ml Iv) 100 ml @ 400 mls/hr Q6 IVPB Last administered on 01/23/17 05:42; Admin Dose 400 MLS/HR; Start 01/10/17 at 16:30 IV Flush (NS 10 ml) 10 ml PRN PRN IV IV PROTOCOL; Start 01/10/17 at 20:30 Ergocalciferol (Drisdol) 50,000 unit Sa@16 PO Last administered on 01/21/17 18 :56; Admin Dose 50,000 UNIT; Start 01/14/17 at 16:00 Prednisone (Prednisone) 10 mg DAILY PO Last administered on 01/23/17 08:14; Admin Dose 10 MG; Start 01/15/17 at 09:00 Famotidine 20 mg 20 mg BID IV Last administered on 01/23/17 08:13; Admin Dose 20 MG; Start 01/17/17 at 21:00 Levofloxacin/ Dextrose (Levaquin 750 Mg/ D5W 150 ml (Pmx)) 150 ml @ 100 mls/hr Q24H IVPB Last administered on 01/22/17 18:58; Admin Dose 100 MLS/HR; Start at 16:00 Fentanyl 125 mcg 125 mcg Q2H PRN IV PAIN Last administered on 01/23/17 11:22; Admin Dose 125 MCG; Start 01/18/17 at 17:00 Trimethoprim/ Sulfamethoxazole/ Dextrose (Bactrim/D5W) 525 ml @ 343.333 mls/hr Q8 IVPB Last administered on 01/23/17 05:47; Admin Dose 343.333 MLS/HR; Start 01/19/17 at 13:30 Hydromorphone HCl (Dilaudid VOLUNTEER SERVICES SUPERVISOR) 1.6MG/HR CONTINUOUS RATE ... Q4PCA IV Last administered on 01/23/17 12:19; Admin Dose 6 MG; Start 01/21/17 at 10:00 Metoprolol Succinate 50 mg 50 mg QHS PO Last administered on 01/22/17 20:22; Admin Dose 50 MG; Start 01/21/17 at 21:00 Total Parenteral Nutrition (Tpn) 1,000 ml @ 80 mls/hr [id number] IV Last administered on 01/23/17 06:48; Admin Dose 80 MLS/HR; Start 01/21/17 at 16:30 YOLY NASCIMENTO MD Jan 23, 2017 13:06
--- NOTE | 2017-01-23 13:37 | PN ---
Date/Time of Note Date/Time of Note DATE: 01/23/17 TIME: 12:57 Assessment/Plan Lines/Catheters IV Catheter Type (from Nrsg): PICC Line Sierra in Place (from Nrsg): No Assessment/Plan Assessment/Plan [facility] Progress Note Date of Service: 01/23/2017 Place of service: [facility] ICU Today's Assessment & Plan: Overall stable with pancreatitis which appears to be chemically resolved. Abd pain continues. appears to be under control. T-bili worse up to 2 days ago (no values since). Doubt active obstruction, but will be helpful to discuss with GI in a multidisciplinary fashion. Low Hg noted and likely secondary to chronic disease. No indication for acute surgical intervention. Discussed with patient and his . Answered all questions. 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 Very difficult situation with somewhat poor prognosis. Fortunately no indication for acute surgical intervention. No evidence of infected necrosis that would require drain placement or surgical necrosectomy of the pancreas. Would be important to try and avoid major interventions in order to not delay life-prolonging chemotherapeutic intervention. With above assessment, I've recommended the followin. Continue aggressive medical management 2. May advance diet as tolerated from my standpoint 3. GI consultation appreciated 4. If it would make a difference in management, may consider percutaneous biopsy of segment 6 area of abnormality in the liver 5. Multidisciplinary tumor board presentation and discussions 6. Consideration for clinical trials once improved medically 7. LFT's, amylase and lipase checks tomorrow with labs 8. Ok from my standpoint for patient to start clear liquid diet Thank you very much for having me involved in the care of this very pleasant patient and wonderful family. If you have any questions, please feel free to contact me at [phone]. Nature of presenting problem: High severity Please note that, given the extensive number of diagnoses or management options , the extensive amount and/or complexity of data needed to be reviewed, and high risk of complications and/or morbidity or mortality, this qualifies as high complexity type of decision-making. Disclaimer: Inadvertent spelling and grammatical errors are likely due to EHR/ dictation software use and do not reflect on the quality of delivered patient care. Also, please note that the electronic time recorded on this node does not necessarily reflect the actual time of the visit. 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 Status post CT-guided left flank subcutaneous nodule biopsy [facility] 01/12/2017. Comorbidities: 1. BMI 40.7 2. Small right pleural effusion with atelectasis and right lung base pneumonia. 3. Large B cell anaplastic lymphoma; status post chemo 1 month prior to presentation 4. Sepsis 5. Hyponatremia 6. Hypokalemia 7. Acute renal injury Subjective: No major events or complaints; reported no major new abd pain and under control with medications; no significant reported nausea or vomiting without diarrhea; no sob or cp; + flatus; - BM; minimal to no activity. Objective: Vitals: See below I's & O's: See below Exam: GENERAL: On exam, the patient was lying in bed and appeared to be comfortable and in no acute distress. ABDOMEN: Soft, minimal to no tenderness and nondistended. There are no peritoneal signs or guarding. SKIN: Skin appears to be pink and feels warm to touch. NEUROLOGIC: Patient is awake, alert, and follows commands appropriately. Labs: See below CT abdomen and pelvis with IV contrast [facility] 2016 IMPRESSION: extensive peripancreatic edema, increased. No evidence of organized fluid collection. Small volume ascites, increased. Heterogeneous mass-like areas of enhancement within the liver, mildly decreased in size over prior examinations. Further characterization with MRI abdomen with without contrast may be helpful. Numerous small irregular nodules throughout the lung bases, grossly unchanged. Small bilateral pleural effusions are present. Extensive subcutaneous infiltration, slightly progressed. Background subcutaneous edema is also likely present. Splenomegaly. Subtle focal hypoenhancing mass/poor corticomedullary distinction within the left kidney, unchanged. Exam/Review of Systems Vital Signs Vitals Vital Signs Date Time Temp Pulse Resp B/P Pulse Ox O2 Delivery O2 Flow Rate FiO2 01/23/17 08:00 98.6 01/23/17 08:00 104 01/23/17 08:00 Nasal Cannula 3.0 01/23/17 07:23 18 100 01/23/17 05:00 134/88 01/22/17 17:22 32 Intake and Output 01/22/17 01/22/17 01/23/17 15:00 23:00 07:00 Intake Total 1775 ml 1405 ml 1615 ml Output Total 900 ml 625 ml 2000 ml Balance 875 ml 780 ml -385 ml Results Result Diagram: 01/23/17 0400 01/23/17 0400 LENKA HERNANDEZ M.D. Jan 23, 2017 13:07
[2017-01-23] MEDS ORDERED: CALCITRIOL 1 MCG INJ IV ONE (14:30)
--- NOTE | 2017-01-23 14:52 | CONS ---
Date/Time of Note Date/Time of Note DATE: 01/23/17 TIME: 14:50 Assessment/Plan Assessment/Plan Additional Assessment/Plan Pain is controlled and 1.6 mg of Dilaudid per hour and fentanyl IV push as needed. Denies nausea vomiting does have dyspnea at rest, appears to be sedated but comfortable and in no acute distress. Pain is rated 3/10 although he appears to be somewhat stoic. Consultation Date/Type/Reason Admit Date/Time Jan 09, 2017 at 19:08 Initial Consult Date 01/10/17 Type of Consultation: Endocrinology Referring Provider: YAO RAHMAN Exam/Review of Systems Vital Signs Vitals Vital Signs Date Time Temp Pulse Resp B/P Pulse Ox O2 Delivery O2 Flow Rate FiO2 01/23/17 13:33 97 3.0 01/23/17 13:31 115 20 Nasal Cannula 01/23/17 08:00 98.6 01/23/17 05:00 134/88 01/22/17 17:22 32 Intake and Output 01/22/17 01/22/17 01/23/17 15:00 23:00 07:00 Intake Total 1775 ml 1405 ml 1615 ml Output Total 900 ml 625 ml 2000 ml Balance 875 ml 780 ml -385 ml Exam Respiratory: congested cough, crackles/rales, diminished breath sounds Cardiovascular: nl pulses, regular rate and rhythm Neurological: 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 II-XII intact, nl mental status, nl speech, nl strength Results Result Diagram: 01/23/17 0400 01/23/17 0400 Results 24 hrs Laboratory Tests Test 01/23/17 04:00 01/23/17 05:15 White Blood Count 2.7 #L Red Blood Count 2.35 L Hemoglobin 6.8 *L Hematocrit 20.2 L Mean Corpuscular Volume 86.0 Mean Corpuscular Hemoglobin 28.9 L Mean Corpuscular Hemoglobin Concent 33.7 Red Cell Distribution Width 17.1 H Platelet Count 81 #L Mean Platelet Volume 11.1 H Neutrophils % Segmented Neutrophils % (Manual) 96 H Lymphocytes % Lymphocytes % (Manual) 2 L Monocytes % Monocytes % (Manual) 2 Eosinophils % Basophils % Nucleated Red Blood Cells % 0.0 Neutrophils # 2.6 Absolute Lymphocytes (Manual) 0.0 L Lymphocytes # 0.1 L Monocytes # 0.1 L Absolute Monocytes (Manual) 0.0 L Eosinophils # Basophils # Nucleated Red Blood Cells # Polychromasia 1+ Sodium Level 132 L Potassium Level 3.7 Chloride Level 92 L Carbon Dioxide Level 30 Anion Gap 14 Blood Urea Nitrogen 6 L Creatinine 0.40 L Glucose Level 96 Calcium Level 7.5 L Ionized Calcium (Measured) 1.0 L Phosphorus Level 1.8 L Magnesium Level 1.8 Lab Scanned Report BLOOD TRANSFUSION Medications Medications Current Medications Docusate Sodium (Colace) 100 mg Q12H PRN PO CONSTIPATION Last administered on 10:46; Admin Dose 100 MG; Start 01/09/17 at 19:30 Magnesium Hydroxide (Milk Of Mag) 30 ml DAILY PRN PO CONSTIPATION; Start at 19:30 Sodium Biphosphate/ Sodium Phosphate (Fleet Enema) 133 ml DAILY PRN [place] CONSTIPATION; Start 01/09/17 at 19:30 Heparin Sodium (Porcine) 5000 unit 5,000 unit Q12 SC Last administered on 09:43; Admin Dose 5,000 UNIT; Start 01/09/17 at 21:00; Status Future Hold Piperacillin Sod/ Tazobactam Sod (Zosyn 3.375gm/ 100 ml (Pmx)) 100 ml @ 200 mls /hr Q6 IVPB Last administered on 01/23/17 05:46; Admin Dose 200 MLS/HR; Start 01/10/17 at 00:00 Nitroglycerin (Nitroglycerin (Sl Tab) 0.4 Mg) 1 tab Q5M PRN SL ANGINA; Start at 19:30 Miscellaneous Information (Pending [facility] Order For Wound Care) This patient aranda... PRN PRN XX WOUND CARE; Start 01/10/17 at 03:30 Ondansetron HCl 4 mg 4 mg Q6 IV Last administered on 01/23/17 06:48; Admin Dose 4 MG; Start 01/10/17 at 15:30 Acetaminophen (Ofirmev 1000mg/ 100ml Iv) 100 ml @ 400 mls/hr Q6 IVPB Last administered on 01/23/17 12:00; Admin Dose 400 MLS/HR; Start 01/10/17 at 16:30 IV Flush (NS 10 ml) 10 ml PRN PRN IV IV PROTOCOL; Start 01/10/17 at 20:30 Ergocalciferol (Drisdol) 50,000 unit Sa@16 PO Last administered on 01/21/17 18 :56; Admin Dose 50,000 UNIT; Start 01/14/17 at 16:00 Prednisone (Prednisone) 10 mg DAILY PO Last administered on 01/23/17 08:14; Admin Dose 10 MG; Start 01/15/17 at 09:00 Famotidine 20 mg 20 mg BID IV Last administered on 01/23/17 08:13; Admin Dose 20 MG; Start 01/17/17 at 21:00 Levofloxacin/ Dextrose (Levaquin 750 Mg/ D5W 150 ml (Pmx)) 150 ml @ 100 mls/hr Q24H IVPB Last administered on 01/22/17 18:58; Admin Dose 100 MLS/HR; Start at 16:00 Fentanyl 125 mcg 125 mcg Q2H PRN IV PAIN Last administered on 01/23/17 13:28; Admin Dose 125 MCG; Start 01/18/17 at 17:00 Trimethoprim/ Sulfamethoxazole/ Dextrose (Bactrim/D5W) 525 ml @ 343.333 mls/hr Q8 IVPB Last administered on 01/23/17 05:47; Admin Dose 343.333 MLS/HR; Start 01/19/17 at 13:30 Hydromorphone HCl (Dilaudid DEODORIZER OPERATOR) 1.6MG/HR CONTINUOUS RATE ... Q4PCA IV Last administered on 01/23/17 12:19; Admin Dose 6 MG; Start 01/21/17 at 10:00 Metoprolol Succinate 50 mg 50 mg QHS PO Last administered on 01/22/17 20:22; Admin Dose 50 MG; Start 01/21/17 at 21:00 Total Parenteral Nutrition (Tpn) 1,000 ml @ 80 mls/hr [id number] IV Last administered on 01/23/17 06:48; Admin Dose 80 MLS/HR; Start 01/21/17 at 16:30 SHELBY WHITE Jan 23, 2017 14:52
[2017-01-23] MEDS: HYDROmorphONE 50 MG in DEXTROSE 5% 45 ML IV SCH (16:23)
[2017-01-23] MEDS: LEVOFLOXACIN 750MG/D5W (PMX) 150 ML IVPB SCH (17:57)
--- NOTE | 2017-01-23 19:07 | PN ---
Date/Time of Note Date/Time of Note DATE: 01/23/17 TIME: 19:05 Assessment/Plan VTE Prophylaxis VTE Prophylaxis Intervention: other Lines/Catheters IV Catheter Type (from Nrs): PICC Line Central line still needed: Yes Urinary Cath still in place: No Reason Cath still needed: other (indicate) Assessment/Plan Chief Complaint/Hosp Course PANCREATITIS HYPOCALCEMIA HYPOPHOSPHATEMIA OBESITY SIRS lymphoma sirs obesity pancytopenia PLAN TPN LYTE REPLACEMENT clear liq ambulate Problems: Subjective 24 Hr Interval Summary Respiratory: shortness of breath (neg) Cardiovascular: no complaints Gastrointestinal: No pain Genitourinary: no complaints Exam/Review of Systems Vital Signs Vitals Vital Signs Date Time Temp Pulse Resp B/P Pulse Ox O2 Delivery O2 Flow Rate FiO2 01/23/17 16:00 104 21 142/87 98 01/23/17 16:00 100.0 01/23/17 13:33 3.0 01/23/17 13:31 Nasal Cannula 01/22/17 17:22 32 Intake and Output 01/22/17 01/22/17 01/23/17 15:00 23:00 07:00 Intake Total 1775 ml 1405 ml 1615 ml Output Total 900 ml 625 ml 2000 ml Balance 875 ml 780 ml -385 ml Exam Neck: supple Respiratory: clear to auscultation Cardiovascular: regular rate and rhythm Gastrointestinal: bowel sounds (++), soft Extremities: normal pulses Results Result Diagram: 01/23/17 0400 01/23/17 0400 Results 24 hrs Laboratory Tests Test 01/23/17 04:00 01/23/17 05:15 White Blood Count 2.7 #L Red Blood Count 2.35 L Hemoglobin 6.8 *L Hematocrit 20.2 L Mean Corpuscular Volume 86.0 Mean Corpuscular Hemoglobin 28.9 L Mean Corpuscular Hemoglobin Concent 33.7 Red Cell Distribution Width 17.1 H Platelet Count 81 #L Mean Platelet Volume 11.1 H Neutrophils % Segmented Neutrophils % (Manual) 96 H Lymphocytes % Lymphocytes % (Manual) 2 L Monocytes % Monocytes % (Manual) 2 Eosinophils % Basophils % Nucleated Red Blood Cells % 0.0 Neutrophils # 2.6 Absolute Lymphocytes (Manual) 0.0 L Lymphocytes # 0.1 L Monocytes # 0.1 L Absolute Monocytes (Manual) 0.0 L Eosinophils # Basophils # Nucleated Red Blood Cells # Polychromasia 1+ Sodium Level 132 L Potassium Level 3.7 Chloride Level 92 L Carbon Dioxide Level 30 Anion Gap 14 Blood Urea Nitrogen 6 L Creatinine 0.40 L Glucose Level 96 Calcium Level 7.5 L Ionized Calcium (Measured) 1.0 L Phosphorus Level 1.8 L Magnesium Level 1.8 Lab Scanned Report BLOOD TRANSFUSION Medications Medications Current Medications Docusate Sodium (Colace) 100 mg Q12H PRN PO CONSTIPATION Last administered on 10:46; Admin Dose 100 MG; Start 01/09/17 at 19:30 Magnesium Hydroxide (Milk Of Mag) 30 ml DAILY PRN PO CONSTIPATION; Start at 19:30 Sodium Biphosphate/ Sodium Phosphate (Fleet Enema) 133 ml DAILY PRN [place] CONSTIPATION; Start 01/09/17 at 19:30 Heparin Sodium (Porcine) 5000 unit 5,000 unit Q12 SC Last administered on 09:43; Admin Dose 5,000 UNIT; Start 01/09/17 at 21:00; Status Future Hold Piperacillin Sod/ Tazobactam Sod (Zosyn 3.375gm/ 100 ml (Pmx)) 100 ml @ 200 mls /hr Q6 IVPB Last administered on 01/23/17 17:57; Admin Dose 200 MLS/HR; Start 01/10/17 at 00:00 Nitroglycerin (Nitroglycerin (Sl Tab) 0.4 Mg) 1 tab Q5M PRN SL ANGINA; Start at 19:30 Miscellaneous Information (Pending [facility] Order For Wound Care) This patient aranda... PRN PRN XX WOUND CARE; Start 01/10/17 at 03:30 Ondansetron HCl 4 mg 4 mg Q6 IV Last administered on 01/23/17 17:51; Admin Dose 4 MG; Start 01/10/17 at 15:30 Acetaminophen (Ofirmev 1000mg/ 100ml Iv) 100 ml @ 400 mls/hr Q6 IVPB Last administered on 01/23/17 17:57; Admin Dose 400 MLS/HR; Start 01/10/17 at 16:30 IV Flush (NS 10 ml) 10 ml PRN PRN IV IV PROTOCOL; Start 01/10/17 at 20:30 Ergocalciferol (Drisdol) 50,000 unit Sa@16 PO Last administered on 01/21/17 18 :56; Admin Dose 50,000 UNIT; Start 01/14/17 at 16:00 Prednisone (Prednisone) 10 mg DAILY PO Last administered on 01/23/17 08:14; Admin Dose 10 MG; Start 01/15/17 at 09:00 Famotidine 20 mg 20 mg BID IV Last administered on 01/23/17 08:13; Admin Dose 20 MG; Start 01/17/17 at 21:00 Levofloxacin/ Dextrose (Levaquin 750 Mg/ D5W 150 ml (Pmx)) 150 ml @ 100 mls/hr Q24H IVPB Last administered on 01/23/17 17:57; Admin Dose 100 MLS/HR; Start at 16:00 Fentanyl 125 mcg 125 mcg Q2H PRN IV PAIN Last administered on 01/23/17 17:51; Admin Dose 125 MCG; Start 01/18/17 at 17:00 Trimethoprim/ Sulfamethoxazole/ Dextrose (Bactrim/D5W) 525 ml @ 343.333 mls/hr Q8 IVPB Last administered on 01/23/17 15:33; Admin Dose 343.333 MLS/HR; Start 01/19/17 at 13:30 Metoprolol Succinate 50 mg 50 mg QHS PO Last administered on 01/22/17 20:22; Admin Dose 50 MG; Start 01/21/17 at 21:00 Total Parenteral Nutrition 1,000 ml @ 80 mls/hr [id number] IV Last administered on 01/23/17 17:57; Admin Dose 80 MLS/HR; Start 01/21/17 at 16:30 Hydromorphone HCl/ Dextrose (Dilaudid/D5W) 50 ml @ 2 mls/hr TITRATE IV Last administered on 01/23/17 16:23; Admin Dose 2 MLS/HR; Start 01/23/17 at 16:30 TAWNY CELIS MD Jan 23, 2017 19:07
[2017-01-23] MEDS: METOPROLOL (XL) 25 MG TAB PO SCH (21:22)
--- NOTE | 2017-01-23 22:24 | PN ---
DATE: 01/23/2017 SUBJECTIVE: No acute changes overnight. The patient is awake, getting blood transfusion. Complaining of generalized pain. He is getting pain management through [facility]. No fevers. No vomiting or diarrhea. Temperature 98.6, pulse 104, respirations 18, blood pressure 134/88, saturation 97 on 3 L nasal cannula. LABORATORY STUDIES: WBC 2.7, H and H 6.8 and 20.2, platelet count 81. BUN 6, creatinine 0.40. Blood culture from January 22 remains negative. Wound cultures grew Stenotrophomonas, Corynebacterium species, Enterococcus species, and Citrobacter freundii. Urine culture on admission grew enterococcus species. Indwelling: Patient has a PICC line. Antimicrobials: Bactrim, Levaquin, Zosyn. PHYSICAL EXAMINATION: GENERAL: This is an obese, chronically ill-appearing, middle- aged man, who is in no distress. HEENT: Head atraumatic, normocephalic. Sclerae anicteric. Buccal mucosa dry. NECK: Neck is obese. Trachea midline. CHEST: Symmetrical. Breath sounds diminished at bases. HEART: S1, S2. ABDOMEN: Obese, soft. Bowel sounds present. EXTREMITIES: Bilateral edema. SKIN: Multiple lesions and wounds. ASSESSMENT: Sepsis, multifactorial. Acute pancreatitis, improved since admission. Multiple infected wounds with the right leg wound culture growing multidrug resistant organisms. Enterococcal urinary tract infection. Non-Hodgkin's large B-cell lymphoma. Acute kidney injury. Pulmonary nodular opacities, consistent with metastatic disease. Anemia and thrombocytopenia. PLAN: The patient remains clinically unchanged. He is on appropriate antimicrobials. He is being seen by multiple consultants. Surgery is following him, so is oncology. We will continue him on current regimen. Follow repeat urine culture. Continue local wound care. Blood products p.r.n. Dictated By: Felicia Hdz NP /paulette/bjc /Document#: [id number]
[2017-01-23] MEDS: IPRATROPIUM (NEB) 0.5 MG/2.5 ML AMP HHN PRN (23:18)
[2017-01-23] MEDS: LEVALBUTEROL (NEB) 0.63 MG/3 ML AMP HHN PRN (23:18)
[2017-01-24] VITALS (85 sets, daily range): BP systolic 93–176; BP diastolic 42–151; PULSE 96–148; RESP 15–33
[2017-01-24] MEDS: FENTAnyl 50 MCG/ML VIAL IV PRN ×9 (00:10→21:13)
[2017-01-24] MEDS: PIPER-TAZO 3.375 GM IV (PMX) 100 ML IVPB SCH ×4 (00:10→17:26)
[2017-01-24] MEDS: ONDANSETRON 4 MG INJ IV SCH ×4 (00:10→17:26)
[2017-01-24] MEDS: ACETAMINOPHEN 1000MG/100ML IV 100 ML IVPB SCH ×4 (01:02→17:26)
[2017-01-24] MEDS: IPRATROPIUM (NEB) 0.5 MG/2.5 ML AMP HHN SCH ×4 (02:00→19:37)
[2017-01-24] MEDS: LEVALBUTEROL (NEB) 0.63 MG/3 ML AMP HHN SCH ×4 (02:00→19:38)
[2017-01-24] MEDS: IPRATROPIUM (NEB) 0.5 MG/2.5 ML AMP HHN PRN (03:31)
[2017-01-24] MEDS: LEVALBUTEROL (NEB) 0.63 MG/3 ML AMP HHN PRN (03:32)
[2017-01-24 05:00] LABS: ABNORMAL IP MESSAGE 1; BASOPHILS % 0.4 % (0.0-2.0); EOSINOPHILS % 1.6 % (0.0-7.0); HEMATOCRIT 24.7 % (42.0-52.0); HEMOGLOBIN 8.4 g/dl (14.0-18.0); LYMPHOCYTES % 1.6 % (15.0-51.0); MEAN CORPUSCULAR HEMOGLOBIN 29.2 pg (29.0-33.0); MEAN CORPUSCULAR VOLUME 85.8 fl (82.0-101.0); MEAN PLATELET VOLUME 11.6 fl (7.4-10.4); MONOCYTE # 0.1 10^3/ul (0.3-0.9); MONOCYTES % 4.9 % (0.0-11.0); NUCLEATED RED BLOOD CELLS% 0.8 /100WBC (0.0-0.0); PLATELET COUNT 65 10^3/UL (140-415); POSITIVE DIFF @See below; RED BLOOD COUNT 2.88 10^6/ul (4.70-6.10); RED CELL DISTRIBUTION WIDTH 16.5 % (11.5-14.5); WHITE BLOOD COUNT 2.5 10^3/ul (4.8-10.8)
[2017-01-24 05:18] LABS: NEUTROPHILS % 90.7 % (39.0-77.0)
[2017-01-24 05:24] LABS: CREATININE 0.55 mg/dl (0.61-1.24); MAGNESIUM 1.6 mg/dl (1.7-2.5); PHOSPHORUS 5.1 mg/dl (2.5-4.9); POTASSIUM 4.9 mmol/L (3.5-5.1)
[2017-01-24] MEDS: TPN 1,000 ML IV SCH ×2 (06:47→18:48)
[2017-01-24] MEDS: TRIMETHOPRIM/SULFAMETHOXAZOLE 25 ML in DEXTROSE 5% 500 ML IVPB SCH ×3 (07:27→22:19)
[2017-01-24] MEDS: HYDROmorphONE 50 MG in DEXTROSE 5% 45 ML IV SCH (08:30)
[2017-01-24] MEDS: predniSONE 20 MG TAB PO SCH (08:31)
[2017-01-24] MEDS: FAMOTIDINE 20 MG INJ IV SCH ×2 (08:31→20:23)
--- NOTE | 2017-01-24 09:02 | PN ---
Date/Time of Note Date/Time of Note DATE: 01/24/17 TIME: 09:00 Assessment/Plan Lines/Catheters IV Catheter Type (from Nrsg): PICC Line [place] in Place (from Nrsg): No Assessment/Plan Assessment/Plan [facility] Progress Note Date of Service: 01/24/2017 Place of service: [facility] ICU Today's Assessment & Plan: Overall stable with abdominal pain which seems stable and not worsening with resumption of clear liquid intake. Patient can likely tolerate a full liquid diet and I ordered this to happen today. Pancreatitis seems resolved, but will check labs tomorrow to confirm. Awaiting further analysis of the biliary system.. No indication for acute surgical intervention. Discussed with patient and answered all questions. 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 Very difficult situation with somewhat poor prognosis. Fortunately no indication for acute surgical intervention. No evidence of infected necrosis that would require drain placement or surgical necrosectomy of the pancreas. Would be important to try and avoid major interventions in order to not delay life-prolonging chemotherapeutic intervention. With above assessment, I've recommended the followin. Continue aggressive medical management 2. Full liquid diet 3. Follow GIs recommendations 4. If it would make a difference in management, may consider percutaneous biopsy of segment 6 area of abnormality in the liver 5. Multidisciplinary tumor board presentation and discussions 6. Consideration for clinical trials once improved medically 7. LFT's, amylase and lipase checks tomorrow with labs Thank you very much for having me involved in the care of this very pleasant patient and wonderful family. If you have any questions, please feel free to contact me at [phone]. Nature of presenting problem: High severity Please note that, given the extensive number of diagnoses or management options , the extensive amount and/or complexity of data needed to be reviewed, and high risk of complications and/or morbidity or mortality, this qualifies as high complexity type of decision-making. Disclaimer: Inadvertent spelling and grammatical errors are likely due to EHR/ dictation software use and do not reflect on the quality of delivered patient care. Also, please note that the electronic time recorded on this node does not necessarily reflect the actual time of the visit. 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 Status post CT-guided left flank subcutaneous nodule biopsy [facility] 01/12/2017. Comorbidities: 1. BMI 40.7 2. Small right pleural effusion with atelectasis and right lung base pneumonia. 3. Large B cell anaplastic lymphoma; status post chemo 1 month prior to presentation 4. Sepsis 5. Hyponatremia 6. Hypokalemia 7. Acute renal injury Subjective: No major events or complaints; reported no major new abd pain and under control with medications; no significant reported nausea or vomiting without diarrhea; no sob or cp; + flatus; - BM; minimal to no activity. Objective: Vitals: See below I's & O's: See below Exam: GENERAL: On exam, the patient was lying in bed and appeared to be comfortable and in no acute distress. ABDOMEN: Soft, minimal to no tenderness and nondistended. There are no peritoneal signs or guarding. SKIN: Skin appears to be pink and feels warm to touch. NEUROLOGIC: Patient is awake, alert, and follows commands appropriately. Labs: See below CT abdomen and pelvis with IV contrast [facility] 2016 IMPRESSION: extensive peripancreatic edema, increased. No evidence of organized fluid collection. Small volume ascites, increased. Heterogeneous mass-like areas of enhancement within the liver, mildly decreased in size over prior examinations. Further characterization with MRI abdomen with without contrast may be helpful. Numerous small irregular nodules throughout the lung bases, grossly unchanged. Small bilateral pleural effusions are present. Extensive subcutaneous infiltration, slightly progressed. Background subcutaneous edema is also likely present. Splenomegaly. Subtle focal hypoenhancing mass/poor corticomedullary distinction within the left kidney, unchanged. Exam/Review of Systems Vital Signs Vitals Vital Signs Date Time Temp Pulse Resp B/P Pulse Ox O2 Delivery O2 Flow Rate FiO2 01/24/17 07:15 118 18 93 01/24/17 07:00 157/97 01/24/17 06:45 Nasal Cannula 01/24/17 04:00 99.2 8/15/17 03:32 3.0 01/22/17 17:22 32 Intake and Output 01/23/17 01/23/17 01/24/17 15:00 23:00 07:00 Intake Total 920 ml 2021.000 ml 1151 ml Output Total 1150 ml 950 ml 1070 ml Balance -230 ml 1071.000 ml 81 ml Results Result Diagram: 01/24/17 0430 01/24/17 0430 LENKA HERNANDEZ M.D. Jan 24, 2017 09:02
--- NOTE | 2017-01-24 09:06 | PN ---
DATE: 01/22/2017 SUBJECTIVE: No acute events per report. The patient is sleeping. He is on [employer] SERV[employer]IST pump and requires pain management around the clock. He has been afebrile overnight. Family at bedside. OBJECTIVE DATA: Temperature 98.9, pulse 130, respirations 20, blood pressure 146/71, and saturation 100 on nasal cannula. LABORATORY AND DIAGNOSTIC DATA: WBC 3.6, H and H 7.3 and 22.2, platelets 103, neutrophils 95, BUN 5, and creatinine 0.45. ANTIMICROBIALS: Bactrim IV, Levaquin and Zosyn. INDWELLINGS: PICC line placed on 01/10/2017. PHYSICAL EXAMINATION: GENERAL: This is a morbidly obese, chronically ill-appearing, middle-aged man who is in no distress. HEENT: Head atraumatic, normocephalic. Sclerae anicteric. Buccal mucosa dry. NECK: Obese. Chest rise is symmetrical. Breath sounds diminished at the bases. HEART: S1, S2. ABDOMEN: Obese and soft. Bowel sounds hypoactive. EXTREMITIES: Bilateral edema. SKIN: Was multiple lesions over the body. ASSESSMENT: 1. Sepsis. 2. Multiple skin lesions with right lower extremity wound culture growing multiple bacteria. 3. Status post urinary tract infection. 4. Pancreatitis with a lipase tracing down. 5. Large B-cell lymphoma. 6. Anemia and thrombocytopenia. 7. Morbid obesity. PLAN: Th patient remains hemodynamically stable. He is being followed by multiple consultants. We will continue him on current antimicrobials. Repeat cultures p.r.n. Continue anti- aspiration measures and pain management. Dictated By: Felicia Hdz NP /paulette/rajendra /Document#: [id number]
[2017-01-24 09:22] LABS: ANISOCYTOSIS 1+ (0-0); EOSINOPHILS % (M) 2 % (0-7); GIANT THROMBO% (M) 2 % (0-0); MICROCYTOSIS 1+ (0-0); OVALOCYTES 1+ (0-0); PLATELET ESTIMATE DECREASED; POLYCHROMASIA 1+ (0-0)
[2017-01-24] MEDS ORDERED: MAGNESIUM SULFATE 2 GM/50 ML 50 ML IVPB ONE (10:00)
--- NOTE | 2017-01-24 10:18 | CONS ---
Date/Time of Note Date/Time of Note DATE: 01/24/17 TIME: 10:17 Consult Date/Type/Reason Admit Date/Time Jan 09, 2017 at 19:08 Initial Consult Date 01/15/17 Type of Consultation: Pulmonary Ordering Provider: YAO RAHMAN Subjective Patient awake alert comfortable this morning continues Dilaudid PHYSICAL LABORATORY ASSISTANT. Decreased abdominal pain. Objective Vital Signs Date Time Temp Pulse Resp B/P Pulse Ox O2 Delivery O2 Flow Rate FiO2 01/24/17 09:00 117 24 98 Nasal Cannula 3.0 01/24/17 07:00 157/97 01/24/17 04:00 99.2 01/22/17 17:22 32 Intake and Output 01/23/17 01/23/17 01/24/17 15:00 23:00 07:00 Intake Total 920 ml 2021.000 ml 1151 ml Output Total 1150 ml 950 ml 1070 ml Balance -230 ml 1071.000 ml 81 ml Exam PHYSICAL EXAMINATION GENERAL: Well-nourished well-developed gentleman nasal cannula oxygen VITAL SIGNS: see below. HEENT: Pupils equal, round, and reactive to light. CARDIAC: S1, S2, no added sounds or movements CHEST: Diminished air entry bilaterally. Bilateral rales. ABDOMEN: Mildly distended. Bowel sounds present no guarding or rebound EXTREMITIES: No cyanosis, clubbing edema +1 NEUROLOGIC: Generalized weakness Results/Medications Result Diagram: 01/24/17 0430 01/24/17 0430 Results 24 hrs Laboratory Tests Test 01/24/17 04:30 01/24/17 05:35 White Blood Count 2.5 L Red Blood Count 2.88 #L Hemoglobin 8.4 #L Hematocrit 24.7 #L Mean Corpuscular Volume 85.8 Mean Corpuscular Hemoglobin 29.2 Mean Corpuscular Hemoglobin Concent 34.0 Red Cell Distribution Width 16.5 H Platelet Count 65 L Mean Platelet Volume 11.6 H Neutrophils % 90.7 H Segmented Neutrophils % (Manual) 97 H Band Neutrophils % (Manual) 1 Lymphocytes % 1.6 L Monocytes % 4.9 Eosinophils % 1.6 Eosinophils % (Manual) 2 Basophils % 0.4 Nucleated Red Blood Cells % 0.8 H Neutrophils # (Manual) 2.4 Band Neutrophils # 0.0 Lymphocytes # 0.0 L Monocytes # 0.1 L Eosinophils # 0.0 Basophils # 0.0 Nucleated Red Blood Cells # 0.0 Thrombocytosis 2 H Platelet Estimate DECREASED Polychromasia 1+ Anisocytosis 1+ Microcytosis 1+ Ovalocytes 1+ Sodium Level 124 L Potassium Level 4.9 Chloride Level 91 L Carbon Dioxide Level 26 Anion Gap 12 Blood Urea Nitrogen 4 L Creatinine 0.55 L Glucose Level 388 #H Calcium Level 8.0 L Phosphorus Level 5.1 #H Magnesium Level 1.6 L Lab Scanned Report BLOOD TRANSFUSION Medications Current Medications Docusate Sodium (Colace) 100 mg Q12H PRN PO CONSTIPATION Last administered on 10:46; Admin Dose 100 MG; Start 01/09/17 at 19:30 Magnesium Hydroxide (Milk Of Mag) 30 ml DAILY PRN PO CONSTIPATION; Start at 19:30 Sodium Biphosphate/ Sodium Phosphate (Fleet Enema) 133 ml DAILY PRN [place] CONSTIPATION; Start 01/09/17 at 19:30 Heparin Sodium (Porcine) 5000 unit 5,000 unit Q12 SC Last administered on 09:43; Admin Dose 5,000 UNIT; Start 01/09/17 at 21:00; Status Future Hold Piperacillin Sod/ Tazobactam Sod (Zosyn 3.375gm/ 100 ml (Pmx)) 100 ml @ 200 mls /hr Q6 IVPB Last administered on 01/24/17 05:10; Admin Dose 200 MLS/HR; Start 01/10/17 at 00:00 Nitroglycerin (Nitroglycerin (Sl Tab) 0.4 Mg) 1 tab Q5M PRN SL ANGINA; Start at 19:30 Miscellaneous Information (Pending Santyl Order For Wound Care) This patient aranda... PRN PRN XX WOUND CARE; Start 01/10/17 at 03:30 Ondansetron HCl 4 mg 4 mg Q6 IV Last administered on 01/24/17 06:26; Admin Dose 4 MG; Start 01/10/17 at 15:30 Acetaminophen (Ofirmev 1000mg/ 100ml Iv) 100 ml @ 400 mls/hr Q6 IVPB Last administered on 01/24/17 06:26; Admin Dose 400 MLS/HR; Start 01/10/17 at 16:30 IV Flush (NS 10 ml) 10 ml PRN PRN IV IV PROTOCOL; Start 01/10/17 at 20:30 Ergocalciferol (Drisdol) 50,000 unit Sa@16 PO Last administered on 01/21/17 18 :56; Admin Dose 50,000 UNIT; Start 01/14/17 at 16:00 Prednisone (Prednisone) 10 mg DAILY PO Last administered on 01/24/17 08:31; Admin Dose 10 MG; Start 01/15/17 at 09:00 Famotidine 20 mg 20 mg BID IV Last administered on 01/24/17 08:31; Admin Dose 20 MG; Start 01/17/17 at 21:00 Levofloxacin/ Dextrose (Levaquin 750 Mg/ D5W 150 ml (Pmx)) 150 ml @ 100 mls/hr Q24H IVPB Last administered on 01/23/17 17:57; Admin Dose 100 MLS/HR; Start at 16:00 Fentanyl 125 mcg 125 mcg Q2H PRN IV PAIN Last administered on 01/24/17 09:14; Admin Dose 125 MCG; Start 01/18/17 at 17:00 Trimethoprim/ Sulfamethoxazole/ Dextrose (Bactrim/D5W) 525 ml @ 343.333 mls/hr Q8 IVPB Last administered on 01/24/17 07:27; Admin Dose 343.333 MLS/HR; Start 01/19/17 at 13:30 Metoprolol Succinate 50 mg 50 mg QHS PO Last administered on 01/23/17 21:22; Admin Dose 50 MG; Start 01/21/17 at 21:00 Total Parenteral Nutrition 1,000 ml @ 80 mls/hr [id number] IV Last administered on 01/24/17 06:47; Admin Dose 80 MLS/HR; Start 01/21/17 at 16:30 Hydromorphone HCl 50 mg/Dextrose 50 ml @ 2 mls/hr TITRATE IV Last administered on 01/24/17 08:30; Admin Dose 2 MLS/HR; Start 01/23/17 at 16:30 Magnesium Sulfate (Magnesium Sulfate 2 Gm/50 ml) 50 ml @ 25 mls/hr ONCE ONCE IVPB ; Start 01/24/17 at 10:00; Stop 01/24/17 at 11:59 Assessment/Plan Chief Complaint/Hosp Course IMP: 1. Severe pancreatitis--ongoing abdominal pain. Discussed with general surgery. Questionable biliary calculi because of ongoing abdominal pain pancreatitis and elevated LFTs. 2. Severe HypoCa++--2/2 #1 continue endocrinology recommendations for continued 3. UTI 4. Anaplastic B-cell lymphoma 5. RAMU, improved 6. Pulmonary nodular opacities--c/w metastatic lymphoma 7. Anemia likely multifactorial. 8. Ongoing sinus tachycardia likely combination of anemia, pain, ongoing inflammation. 9. Hyponatremia possible SIADH. RECS: 1. Continue fluids per nephrology, possible SIADH 2. CT abdomen noted. 3. Endocrinology recommendations with potassium replacement, calcium management. 4. Pain control via PHYSICAL LABORATORY ASSISTANT 5. Follow lytes, renal recommendations may need fluid restriction. 6. Surgery recommendations advance diet per surgery recommendations 7. PT evaluation out of bed if tolerated 8. GI recommendations. Discussed with primary team. Problems: BECKA DINH MD, [facility] Jan 24, 2017 10:18
--- NOTE | 2017-01-24 13:39 | CONS ---
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 He came into the hospital with abdominal pain but at that time had a low lipase level. At that time his calciums were normal his thyroid function was normal he had on appropriate serum cortisol despite having been on tapering dosages of prednisone as an outpatient. I have contacted [facility] to get the blood test reports. While his serum calcium was 5.3 with a low ionized calcium he had a PTH in the mid 20s. This is an inappropriately low normal PTH in the setting of severe hypocalcemia. This indicates hypo-parathyroidism. The patient informs me there is no prior history of this. Since he has not had neck surgery this leaves us to look at what other type of destructive process of the parathyroids could be going on here. Problems: (1) Tachycardia Status: Acute Comment: Patient has persistent tachycardia even though he is actually feeling better. I will recheck his free T4 to make sure that nothing else surprising is come up in him. (2) Abdominal pain Status: Chronic Comment: The etiology of this is multifactorial. I am still concerned that in addition to lymphoma as a possible cause he may have biliary sludge accounting for this as well especially given the pancreatitis. I am deferring this off to our hematology oracle application consultant and also to Dr. Carlos Qualifiers: Abdominal location: generalized Qualified Code: R10.84 - Generalized abdominal pain (3) Hypovitaminosis D Status: Chronic Comment: Now he is taking p.o. Minitran replete the 25 hydroxy vitamin D using ergocalciferol. This should help with the hypocalcemia. Please see discussion below (4) Hypoparathyroidism, unspecified Status: Acute Comment: I doubt that this is caused by the hypovitaminosis D. Usually in vitamin D deficiency state PTH levels rise to compensate. This patient had a low PTH level based on the information I received by: [facility] directly. Please note the lab still has not entered reports into the chart. For now using oral calcium that I can start using today along with vitamin D will see how the patient does appear (5) Lymphoma, anaplastic large cell, abdomen Status: Chronic Comment: As per hematology. I am very disturbed seeing the patient having pancytopenia today. I am concerned this may represent something more insidious. As per hematology consult (6) Obesity (BMI 30-39.9) Status: Chronic Comment: Noted. (7) Acute pancreatitis Status: Acute Comment: This appears to resolve though the repeat lab testing is scheduled for the morning. I am concerned this does represent gallbladder sludge as an etiologic event Qualifiers: Pancreatitis type: unspecified pancreatitis type Acute pancreatitis complication: uninfected necrosis Qualified Code: K85.91 - Acute pancreatitis with uninfected necrosis, unspecified pancreatitis type Consultation Date/Type/Reason Admit Date/Time Jan 09, 2017 at 19:08 Initial Consult Date 01/15/17 Type of Consultation: Endocrinology Reason for Consultation Hypocalcemia with low PTH level and low vitamin D levels Referring Provider: YAO RAHMAN 24 HR Interval Summary Free Text/Dictation Patient reports he is still has abdominal pain but is feeling better has been taking clear liquids since yesterday. Exam/Review of Systems Vital Signs Vitals Vital Signs Date Time Temp Pulse Resp B/P Pulse Ox O2 Delivery O2 Flow Rate FiO2 01/24/17 12:00 129 01/24/17 11:15 26 119/50 01/24/17 11:00 97 01/24/17 09:00 Nasal Cannula 3.0 01/24/17 07:30 98.9 01/22/17 17:22 32 Intake and Output 01/23/17 01/23/17 01/24/17 15:00 23:00 07:00 Intake Total 920 ml 2021.000 ml 1151 ml Output Total 1150 ml 950 ml 1470 ml Balance -230 ml 1071.000 ml -319 ml Exam No change in exam Results Result Diagram: 01/24/17 0430 01/24/17 0430 Results 24 hrs Laboratory Tests Test 01/24/17 04:30 01/24/17 05:35 White Blood Count 2.5 L Red Blood Count 2.88 #L Hemoglobin 8.4 #L Hematocrit 24.7 #L Mean Corpuscular Volume 85.8 Mean Corpuscular Hemoglobin 29.2 Mean Corpuscular Hemoglobin Concent 34.0 Red Cell Distribution Width 16.5 H Platelet Count 65 L Mean Platelet Volume 11.6 H Neutrophils % 90.7 H Segmented Neutrophils % (Manual) 97 H Band Neutrophils % (Manual) 1 Lymphocytes % 1.6 L Monocytes % 4.9 Eosinophils % 1.6 Eosinophils % (Manual) 2 Basophils % 0.4 Nucleated Red Blood Cells % 0.8 H Neutrophils # (Manual) 2.4 Band Neutrophils # 0.0 Lymphocytes # 0.0 L Monocytes # 0.1 L Eosinophils # 0.0 Basophils # 0.0 Nucleated Red Blood Cells # 0.0 Thrombocytosis 2 H Platelet Estimate DECREASED Polychromasia 1+ Anisocytosis 1+ Microcytosis 1+ Ovalocytes 1+ Sodium Level 124 L Potassium Level 4.9 Chloride Level 91 L Carbon Dioxide Level 26 Anion Gap 12 Blood Urea Nitrogen 4 L Creatinine 0.55 L Glucose Level 388 #H Calcium Level 8.0 L Phosphorus Level 5.1 #H Magnesium Level 1.6 L Lab Scanned Report BLOOD TRANSFUSION Medications Medications Current Medications Docusate Sodium (Colace) 100 mg Q12H PRN PO CONSTIPATION Last administered on 10:46; Admin Dose 100 MG; Start 01/09/17 at 19:30 Magnesium Hydroxide (Milk Of Mag) 30 ml DAILY PRN PO CONSTIPATION; Start at 19:30 Sodium Biphosphate/ Sodium Phosphate (Fleet Enema) 133 ml DAILY PRN [place] CONSTIPATION; Start 01/09/17 at 19:30 Heparin Sodium (Porcine) 5000 unit 5,000 unit Q12 SC Last administered on 09:43; Admin Dose 5,000 UNIT; Start 01/09/17 at 21:00; Status Future Hold Piperacillin Sod/ Tazobactam Sod (Zosyn 3.375gm/ 100 ml (Pmx)) 100 ml @ 200 mls /hr Q6 IVPB Last administered on 01/24/17 05:10; Admin Dose 200 MLS/HR; Start 01/10/17 at 00:00 Nitroglycerin (Nitroglycerin (Sl Tab) 0.4 Mg) 1 tab Q5M PRN SL ANGINA; Start at 19:30 Miscellaneous Information ([facility] This patient aranda... PRN PRN XX WOUND CARE; Start 01/10/17 at 03:30 Ondansetron HCl 4 mg 4 mg Q6 IV Last administered on 01/24/17 06:26; Admin Dose 4 MG; Start 01/10/17 at 15:30 Acetaminophen (Ofirmev 1000mg/ 100ml Iv) 100 ml @ 400 mls/hr Q6 IVPB Last administered on 01/24/17 06:26; Admin Dose 400 MLS/HR; Start 01/10/17 at 16:30 IV Flush (NS 10 ml) 10 ml PRN PRN IV IV PROTOCOL; Start 01/10/17 at 20:30 Ergocalciferol (Drisdol) 50,000 unit Sa@16 PO Last administered on 01/21/17 18 :56; Admin Dose 50,000 UNIT; Start 01/14/17 at 16:00 Prednisone (Prednisone) 10 mg DAILY PO Last administered on 01/24/17 08:31; Admin Dose 10 MG; Start 01/15/17 at 09:00 Famotidine 20 mg 20 mg BID IV Last administered on 01/24/17 08:31; Admin Dose 20 MG; Start 01/17/17 at 21:00 Levofloxacin/ Dextrose (Levaquin 750 Mg/ D5W 150 ml (Pmx)) 150 ml @ 100 mls/hr Q24H IVPB Last administered on 01/23/17 17:57; Admin Dose 100 MLS/HR; Start at 16:00 Fentanyl 125 mcg 125 mcg Q2H PRN IV PAIN Last administered on 01/24/17 11:13; Admin Dose 125 MCG; Start 01/18/17 at 17:00 Trimethoprim/ Sulfamethoxazole/ Dextrose (Bactrim/D5W) 525 ml @ 343.333 mls/hr Q8 IVPB Last administered on 01/24/17 07:27; Admin Dose 343.333 MLS/HR; Start 01/19/17 at 13:30 Metoprolol Succinate 50 mg 50 mg QHS PO Last administered on 01/23/17 21:22; Admin Dose 50 MG; Start 01/21/17 at 21:00 Total Parenteral Nutrition 1,000 ml @ 80 mls/hr [id number] IV Last administered on 01/24/17 06:47; Admin Dose 80 MLS/HR; Start 01/21/17 at 16:30 Hydromorphone HCl/ Dextrose (Dilaudid/D5W) 50 ml @ 2 mls/hr TITRATE IV Last administered on 01/24/17 08:30; Admin Dose 2 MLS/HR; Start 01/23/17 at 16:30 YOLY NASCIMENTO MD Jan 24, 2017 13:39
--- NOTE | 2017-01-24 13:42 | PN ---
DATE: 01/24/2017 SUBJECTIVE DATA: No acute changes overnight per report. The patient is awake, looks comfortable. He participated with PT this morning. OBJECTIVE DATA: VITAL SIGNS: T-max 100, heart rate 121, respirations 22, blood pressure 158/96, saturation 97 on room air. LABORATORY AND DIAGNOSTIC DATA: WBC 2.5, H and H 8.4 and 24.7, platelets 65, neutrophils 90.7. BUN 4, creatinine 0.55, glucose 388. INDWELLINGS: PICC line. ANTIMICROBIALS: Bactrim, Levaquin, Zosyn. PHYSICAL EXAMINATION: GENERAL: This is an obese, well-developed, chronically ill- appearing, middle-aged man, who is awake, in no distress. HEENT: Head atraumatic, normocephalic. Sclerae icteric. Buccal mucosa dry. NECK: Obese. LUNGS: Chest rise symmetrical, breath sounds clear. Diminished at bases. HEART: S1, S2. ABDOMEN: Soft, bowel sounds present. EXTREMITIES: With bilateral edema. SKIN: With multiple lesions. ASSESSMENT: 1. Sepsis, resolving. 2. Pancreatitis, improving, started on clears. 3. Multiple skin lesions with wound culture growing multidrug resistant organisms. 4. Status post enterococcal urinary tract infection. 5. Large B-cell lymphoma. 6. Pancytopenia. PLAN: The patient remains stable, clinically improving, tolerates clear liquid diet. Surgery, Pulmonary, Endocrinology, Palliative Care and Oncology follows. The patient also is being seen by Gastroenterology. We will follow their recommendations. Dictated By: Felicia Hdz NP /paulette/meche /Document#: [id number]
[2017-01-24] MEDS ORDERED: ERGOCALCIFEROL 50,000 UNIT CAP PO ONE ×2 (14:30→15:00)
--- NOTE | 2017-01-24 14:31 | PN ---
Date/Time of Note Date/Time of Note DATE: 01/24/17 TIME: 14:29 Assessment/Plan VTE Prophylaxis VTE Prophylaxis Intervention: SCD's Lines/Catheters IV [facility]from [facility] PICC Line Central line still needed: Yes Urinary Cath still in place: No Assessment/Plan Assessment/Plan Anemia * Acute pancreatitis, etiology unclear * Mild abnormality liver function tests with no evidence of biliary pathology * Anaplastic B-cell lymphoma/aggressive behavior * Sepsis/pneumonia/improved Plan: * Transfuse as needed * Monitor hemoglobin and hematocrit daily * Continue monitor lipase and abdominal pain * Once abdominal pain subsides made reintroduce diet * case discussed with Dr Hewitt * Further orders will depend on clinical course Subjective 24 Hr Interval Summary Free Text/Dictation * Case discuss with RN * Patient seen and examined * No untoward events overnight Exam/Review of Systems Vital Signs Vitals Vital Signs Date Time Temp Pulse Resp B/P Pulse Ox O2 Delivery O2 Flow Rate FiO2 01/24/17 14:15 140 28 155/140 95 01/24/17 13:00 102.0 01/24/17 09:00 Nasal Cannula 3.0 01/22/17 17:22 32 Intake and Output 01/23/17 01/23/17 01/24/17 15:00 23:00 07:00 Intake Total 920 ml 2021.000 ml 1233 ml Output Total 1150 ml 950 ml 1470 ml Balance -230 ml 1071.000 ml -237 ml Exam Constitutional: alert, frail Head: atraumatic, normocephalic Neck: non-tender, supple Respiratory: diminished breath sounds Cardiovascular: nl pulses, regular rate and rhythm Gastrointestinal: distended, soft, tender, No rebound or guarding Extremities: normal pulses Neurological: nl speech, nl strength Skin: nl turgor, No rash or lesions Results Result Diagram: 01/24/17 0430 01/24/17 0430 Results 24 hrs Laboratory Tests Test 01/24/17 04:30 01/24/17 05:35 White Blood Count 2.5 L Red Blood Count 2.88 #L Hemoglobin 8.4 #L Hematocrit 24.7 #L Mean Corpuscular Volume 85.8 Mean Corpuscular Hemoglobin 29.2 Mean Corpuscular Hemoglobin Concent 34.0 Red Cell Distribution Width 16.5 H Platelet Count 65 L Mean Platelet Volume 11.6 H Neutrophils % 90.7 H Segmented Neutrophils % (Manual) 97 H Band Neutrophils % (Manual) 1 Lymphocytes % 1.6 L Monocytes % 4.9 Eosinophils % 1.6 Eosinophils % (Manual) 2 Basophils % 0.4 Nucleated Red Blood Cells % 0.8 H Neutrophils # (Manual) 2.4 Band Neutrophils # 0.0 Lymphocytes # 0.0 L Monocytes # 0.1 L Eosinophils # 0.0 Basophils # 0.0 Nucleated Red Blood Cells # 0.0 Thrombocytosis 2 H Platelet Estimate DECREASED Polychromasia 1+ Anisocytosis 1+ Microcytosis 1+ Ovalocytes 1+ Sodium Level 124 L Potassium Level 4.9 Chloride Level 91 L Carbon Dioxide Level 26 Anion Gap 12 Blood Urea Nitrogen 4 L Creatinine 0.55 L Glucose Level 388 #H Calcium Level 8.0 L Phosphorus Level 5.1 #H Magnesium Level 1.6 L Lab Scanned Report BLOOD TRANSFUSION Medications Medications Current Medications Docusate Sodium (Colace) 100 mg Q12H PRN PO CONSTIPATION Last administered on 10:46; Admin Dose 100 MG; Start 01/09/17 at 19:30 Magnesium Hydroxide (Milk Of Mag) 30 ml DAILY PRN PO CONSTIPATION; Start at 19:30 Sodium Biphosphate/ Sodium Phosphate (Fleet Enema) 133 ml DAILY PRN [place] CONSTIPATION; Start 01/09/17 at 19:30 Heparin Sodium (Porcine) 5000 unit 5,000 unit Q12 SC Last administered on 09:43; Admin Dose 5,000 UNIT; Start 01/09/17 at 21:00; Status Future Hold Piperacillin Sod/ Tazobactam Sod (Zosyn 3.375gm/ 100 ml (Pmx)) 100 ml @ 200 mls /hr Q6 IVPB Last administered on 01/24/17 13:08; Admin Dose 200 MLS/HR; Start 01/10/17 at 00:00 Nitroglycerin (Nitroglycerin (Sl Tab) 0.4 Mg) 1 tab Q5M PRN SL ANGINA; Start at 19:30 [facility] This patient aranda... PRN PRN XX WOUND CARE; Start 01/10/17 at 03:30 Ondansetron HCl 4 mg 4 mg Q6 IV Last administered on 01/24/17 13:08; Admin Dose 4 MG; Start 01/10/17 at 15:30 Acetaminophen (Ofirmev 1000mg/ 100ml Iv) 100 ml @ 400 mls/hr Q6 IVPB Last administered on 01/24/17 13:11; Admin Dose 400 MLS/HR; Start 01/10/17 at 16:30 IV Flush (NS 10 ml) 10 ml PRN PRN IV IV PROTOCOL; Start 01/10/17 at 20:30 Prednisone (Prednisone) 10 mg DAILY PO Last administered on 01/24/17 08:31; Admin Dose 10 MG; Start 01/15/17 at 09:00 Famotidine 20 mg 20 mg BID IV Last administered on 01/24/17 08:31; Admin Dose 20 MG; Start 01/17/17 at 21:00 Levofloxacin/ Dextrose (Levaquin 750 Mg/ D5W 150 ml (Pmx)) 150 ml @ 100 mls/hr Q24H IVPB Last administered on 01/23/17 17:57; Admin Dose 100 MLS/HR; Start at 16:00 Fentanyl 125 mcg 125 mcg Q2H PRN IV PAIN Last administered on 01/24/17 11:13; Admin Dose 125 MCG; Start 01/18/17 at 17:00 Trimethoprim/ Sulfamethoxazole/ Dextrose (Bactrim/D5W) 525 ml @ 343.333 mls/hr Q8 IVPB Last administered on 01/24/17 14:05; Admin Dose 343.333 MLS/HR; Start 01/19/17 at 13:30 Metoprolol Succinate 50 mg 50 mg QHS PO Last administered on 01/23/17 21:22; Admin Dose 50 MG; Start 01/21/17 at 21:00 Total Parenteral Nutrition 1,000 ml @ 80 mls/hr [id number] IV Last administered on 01/24/17 06:47; Admin Dose 80 MLS/HR; Start 01/21/17 at 16:30 Hydromorphone HCl/ Dextrose (Dilaudid/D5W) 50 ml @ 2 mls/hr TITRATE IV Last administered on 01/24/17 08:30; Admin Dose 2 MLS/HR; Start 01/23/17 at 16:30 Ergocalciferol (Drisdol) 50,000 unit We@09 PO ; Start 01/25/17 at 09:00 Calcium Carbonate (Oyster Shell Calcium) 1.25 gm BID PO ; Start 01/24/17 at 21: 00 Ergocalciferol (Drisdol) 50,000 unit ONCE ONCE PO ; Start 01/24/17 at 14:30; Stop 01/24/17 at 14:31 SELENA ROY NP Jan 24, 2017 14:31
[2017-01-24 16:09] LABS: CALCIUM 8.1 mg/dl (8.4-10.2); CREATININE 0.43 mg/dl (0.61-1.24); POTASSIUM 4.2 mmol/L (3.5-5.1)
[2017-01-24] MEDS: SOD CHLORIDE 0.9% 1,000 ML IV SCH (16:37)
[2017-01-24] MEDS: LEVOFLOXACIN 750MG/D5W (PMX) 150 ML IVPB SCH (16:42)
[2017-01-24] MEDS: METOPROLOL (XL) 25 MG TAB PO SCH (20:24)
[2017-01-24] MEDS: CALCIUM CARBONATE 1.25 GM TAB PO SCH (20:24)
--- NOTE | 2017-01-24 22:24 | CONS ---
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 His last chemo was a month ago and hadn't had since due to experiencing similar presenting symptoms. record from pt's oncologist Kain Wisdom - Kenji LEUKOPENIA IN PT WITH HNL ON CHEMO AND WITH SEPTIC PICTURE MONITOR BLOOD COUNT CLOSELY POST NEUPOGEN Sepsis 2/2 PNA - abx, IVF - f/u culture results - ID Abd Pain with N/V: 2/2 known lymphoma - pain mgmt - Anti-emetics Hyponatremia and Hypokalemia: 2/2 vomiting - NS IVF - replete K+ as needed Presumed RAMU: likely pre-renal 2/2 vomiting - cont IVF for now Problems: Consultation Date/Type/Reason Admit Date/Time Jan 09, 2017 at 19:08 Initial Consult Date 01/10/17 Type of Consultation: hemeon Referring Provider: YAO RAHMAN 24 HR Interval Summary Free Text/Dictation ALL NOTED Exam/Review of Systems Vital Signs Vitals Vital Signs Date Time Temp Pulse Resp B/P Pulse Ox O2 Delivery O2 Flow Rate FiO2 01/24/17 21:30 98 16 117/73 97 01/24/17 21:00 Nasal Cannula 01/24/17 20:00 97.6 01/24/17 20:00 3.0 01/22/17 17:22 32 Intake and Output 01/23/17 01/23/17 01/24/17 15:00 23:00 07:00 Intake Total 920 ml 2021.000 ml 1233 ml Output Total 1150 ml 950 ml 1470 ml Balance -230 ml 1071.000 ml -237 ml Exam GENERAL: Well-nourished well-developed gentleman nasal cannula oxygen VITAL SIGNS: see below. HEENT: Pupils equal, round, and reactive to light. CARDIAC: S1, S2, no added sounds or movements CHEST: Diminished air entry bilaterally. Bilateral rales. ABDOMEN: Mildly distended. Bowel sounds present no guarding or rebound EXTREMITIES: No cyanosis, clubbing edema +1 NEUROLOGIC: Generalized weakness Results Result Diagram: 01/24/17 0430 01/24/17 1525 Results 24 hrs Laboratory Tests Test 01/24/17 04:30 01/24/17 05:35 01/24/17 15:25 White Blood Count 2.5 L Red Blood Count 2.88 #L Hemoglobin 8.4 #L Hematocrit 24.7 #L Mean Corpuscular Volume 85.8 Mean Corpuscular Hemoglobin 29.2 Mean Corpuscular Hemoglobin Concent 34.0 Red Cell Distribution Width 16.5 H Platelet Count 65 L Mean Platelet Volume 11.6 H Neutrophils % 90.7 H Segmented Neutrophils % (Manual) 97 H Band Neutrophils % (Manual) 1 Lymphocytes % 1.6 L Monocytes % 4.9 Eosinophils % 1.6 Eosinophils % (Manual) 2 Basophils % 0.4 Nucleated Red Blood Cells % 0.8 H Neutrophils # (Manual) 2.4 Band Neutrophils # 0.0 Lymphocytes # 0.0 L Monocytes # 0.1 L Eosinophils # 0.0 Basophils # 0.0 Nucleated Red Blood Cells # 0.0 Thrombocytosis 2 H Platelet Estimate DECREASED Polychromasia 1+ Anisocytosis 1+ Microcytosis 1+ Ovalocytes 1+ Sodium Level 124 L 129 L Potassium Level 4.9 4.2 Chloride Level 91 L 91 L Carbon Dioxide Level 26 28 Anion Gap 12 14 Blood Urea Nitrogen 4 L 4 L Creatinine 0.55 L 0.43 L Glucose Level 388 #H 105 # Calcium Level 8.0 L 8.1 L Phosphorus Level 5.1 #H Magnesium Level 1.6 L Lab Scanned Report BLOOD TRANSFUSION Free Thyroxine 1.03 Medications Medications Current Medications Docusate Sodium (Colace) 100 mg Q12H PRN PO CONSTIPATION Last administered on 10:46; Admin Dose 100 MG; Start 01/09/17 at 19:30 Magnesium Hydroxide (Milk Of Mag) 30 ml DAILY PRN PO CONSTIPATION; Start at 19:30 Sodium Biphosphate/ Sodium Phosphate (Fleet Enema) 133 ml DAILY PRN [place] CONSTIPATION; Start 01/09/17 at 19:30 Heparin Sodium (Porcine) 5000 unit 5,000 unit Q12 SC Last administered on 09:43; Admin Dose 5,000 UNIT; Start 01/09/17 at 21:00; Status Future Hold Piperacillin Sod/ Tazobactam Sod (Zosyn 3.375gm/ 100 ml (Pmx)) 100 ml @ 200 mls /hr Q6 IVPB Last administered on 01/24/17 17:26; Admin Dose 200 MLS/HR; Start 01/10/17 at 00:00 Nitroglycerin (Nitroglycerin (Sl Tab) 0.4 Mg) 1 tab Q5M PRN SL ANGINA; Start at 19:30 [facility] This patient aranda... PRN PRN XX WOUND CARE; Start 01/10/17 at 03:30 Ondansetron HCl 4 mg 4 mg Q6 IV Last administered on 01/24/17 17:26; Admin Dose 4 MG; Start 01/10/17 at 15:30 Acetaminophen (Ofirmev 1000mg/ 100ml Iv) 100 ml @ 400 mls/hr Q6 IVPB Last administered on 01/24/17 17:26; Admin Dose 400 MLS/HR; Start 01/10/17 at 16:30 IV Flush (NS 10 ml) 10 ml PRN PRN IV IV PROTOCOL; Start 01/10/17 at 20:30 Prednisone (Prednisone) 10 mg DAILY PO Last administered on 01/24/17 08:31; Admin Dose 10 MG; Start 01/15/17 at 09:00 Famotidine 20 mg 20 mg BID IV Last administered on 01/24/17 20:23; Admin Dose 20 MG; Start 01/17/17 at 21:00 Levofloxacin/ Dextrose (Levaquin 750 Mg/ D5W 150 ml (Pmx)) 150 ml @ 100 mls/hr Q24H IVPB Last administered on 01/24/17 16:42; Admin Dose 100 MLS/HR; Start at 16:00 Fentanyl 125 mcg 125 mcg Q2H PRN IV PAIN Last administered on 01/24/17 21:13; Admin Dose 125 MCG; Start 01/18/17 at 17:00 Trimethoprim/ Sulfamethoxazole/ Dextrose (Bactrim/D5W) 525 ml @ 343.333 mls/hr Q8 IVPB Last administered on 01/24/17 22:19; Admin Dose 343.333 MLS/HR; Start 01/19/17 at 13:30 Metoprolol Succinate 50 mg 50 mg QHS PO Last administered on 01/24/17 20:24; Admin Dose 50 MG; Start 01/21/17 at 21:00 Total Parenteral Nutrition 1,000 ml @ 80 mls/hr [id number] IV Last administered on 01/24/17 18:48; Admin Dose 80 MLS/HR; Start 01/21/17 at 16:30 Hydromorphone HCl/ Dextrose (Dilaudid/D5W) 50 ml @ 2 mls/hr TITRATE IV Last administered on 01/24/17 08:30; Admin Dose 2 MLS/HR; Start 01/23/17 at 16:30 Ergocalciferol (Drisdol) 50,000 unit We@09 PO ; Start 01/25/17 at 09:00 Calcium Carbonate 1.25 gm 1.25 gm BID PO Last administered on 01/24/17 20:24; Admin Dose 1.25 GM; Start 01/24/17 at 21:00 Sodium Chloride (NS) 1,000 ml @ 70 mls/hr [id number] IV Last administered on 01/24 16:37; Admin Dose 70 MLS/HR; Start 01/24/17 at 16:30 MOIRA BIRMINGHAM MD Jan 24, 2017 22:24
--- NOTE | 2017-01-24 23:29 | PN ---
Date/Time of Note Date/Time of Note DATE: 01/24/17 TIME: 23:27 Assessment/Plan VTE Prophylaxis VTE Prophylaxis Intervention: other Lines/Catheters IV Catheter Type (from Nrs): PICC Line Central line still needed: Yes Urinary Cath still in place: No Assessment/Plan Chief Complaint/Hosp Course PANCREATITIS HYPOCALCEMIA HYPOPHOSPHATEMIA OBESITY SIRS lymphoma sirs obesity pancytopenia multiple becubitus PLAN TPN LYTE REPLACEMENT clear liq ambulate Problems: Subjective 24 Hr Interval Summary Respiratory: no complaints Cardiovascular: No chest pain Gastrointestinal: no complaints Genitourinary: no complaints Musculoskeletal: no complaints Skin: other, skin lesions (+) Exam/Review of Systems Vital Signs Vitals Vital Signs Date Time Temp Pulse Resp B/P Pulse Ox O2 Delivery O2 Flow Rate FiO2 01/24/17 21:30 98 16 117/73 97 01/24/17 21:00 Nasal Cannula 01/24/17 20:00 97.6 01/24/17 20:00 3.0 01/22/17 17:22 32 Intake and Output 01/23/17 01/23/17 01/24/17 15:00 23:00 07:00 Intake Total 920 ml 2021.000 ml 1233 ml Output Total 1150 ml 950 ml 1470 ml Balance -230 ml 1071.000 ml -237 ml Exam Neck: supple Respiratory: clear to auscultation Cardiovascular: regular rate and rhythm Gastrointestinal: soft Musculoskeletal: nl extremities to inspection Extremities: edema (++), normal pulses Skin: other (wound+) Results Result Diagram: 01/24/17 0430 01/24/17 1525 Results 24 hrs Laboratory Tests Test 01/24/17 04:30 01/24/17 05:35 01/24/17 15:25 White Blood Count 2.5 L Red Blood Count 2.88 #L Hemoglobin 8.4 #L Hematocrit 24.7 #L Mean Corpuscular Volume 85.8 Mean Corpuscular Hemoglobin 29.2 Mean Corpuscular Hemoglobin Concent 34.0 Red Cell Distribution Width 16.5 H Platelet Count 65 L Mean Platelet Volume 11.6 H Neutrophils % 90.7 H Segmented Neutrophils % (Manual) 97 H Band Neutrophils % (Manual) 1 Lymphocytes % 1.6 L Monocytes % 4.9 Eosinophils % 1.6 Eosinophils % (Manual) 2 Basophils % 0.4 Nucleated Red Blood Cells % 0.8 H Neutrophils # (Manual) 2.4 Band Neutrophils # 0.0 Lymphocytes # 0.0 L Monocytes # 0.1 L Eosinophils # 0.0 Basophils # 0.0 Nucleated Red Blood Cells # 0.0 Thrombocytosis 2 H Platelet Estimate DECREASED Polychromasia 1+ Anisocytosis 1+ Microcytosis 1+ Ovalocytes 1+ Sodium Level 124 L 129 L Potassium Level 4.9 4.2 Chloride Level 91 L 91 L Carbon Dioxide Level 26 28 Anion Gap 12 14 Blood Urea Nitrogen 4 L 4 L Creatinine 0.55 L 0.43 L Glucose Level 388 #H 105 # Calcium Level 8.0 L 8.1 L Phosphorus Level 5.1 #H Magnesium Level 1.6 L Lab Scanned Report BLOOD TRANSFUSION Free Thyroxine 1.03 Medications Medications Current Medications Docusate Sodium (Colace) 100 mg Q12H PRN PO CONSTIPATION Last administered on 10:46; Admin Dose 100 MG; Start 01/09/17 at 19:30 Magnesium Hydroxide (Milk Of Mag) 30 ml DAILY PRN PO CONSTIPATION; Start at 19:30 Sodium Biphosphate/ Sodium Phosphate (Fleet Enema) 133 ml DAILY PRN [place] CONSTIPATION; Start 01/09/17 at 19:30 Heparin Sodium (Porcine) 5000 unit 5,000 unit Q12 SC Last administered on 09:43; Admin Dose 5,000 UNIT; Start 01/09/17 at 21:00; Status Future Hold Piperacillin Sod/ Tazobactam Sod (Zosyn 3.375gm/ 100 ml (Pmx)) 100 ml @ 200 mls /hr Q6 IVPB Last administered on 01/24/17 17:26; Admin Dose 200 MLS/HR; Start 01/10/17 at 00:00 Nitroglycerin (Nitroglycerin (Sl Tab) 0.4 Mg) 1 tab Q5M PRN SL ANGINA; Start at 19:30 Miscellaneous Information (Pending [facility]) This patient aranda... PRN PRN XX WOUND CARE; Start 01/10/17 at 03:30 Ondansetron HCl 4 mg 4 mg Q6 IV Last administered on 01/24/17 17:26; Admin Dose 4 MG; Start 01/10/17 at 15:30 Acetaminophen (Ofirmev 1000mg/ 100ml Iv) 100 ml @ 400 mls/hr Q6 IVPB Last administered on 01/24/17 17:26; Admin Dose 400 MLS/HR; Start 01/10/17 at 16:30 IV Flush (NS 10 ml) 10 ml PRN PRN IV IV PROTOCOL; Start 01/10/17 at 20:30 Prednisone (Prednisone) 10 mg DAILY PO Last administered on 01/24/17 08:31; Admin Dose 10 MG; Start 01/15/17 at 09:00 Famotidine 20 mg 20 mg BID IV Last administered on 01/24/17 20:23; Admin Dose 20 MG; Start 01/17/17 at 21:00 Levofloxacin/ Dextrose (Levaquin 750 Mg/ D5W 150 ml (Pmx)) 150 ml @ 100 mls/hr Q24H IVPB Last administered on 01/24/17 16:42; Admin Dose 100 MLS/HR; Start at 16:00 Fentanyl 125 mcg 125 mcg Q2H PRN IV PAIN Last administered on 01/24/17 21:13; Admin Dose 125 MCG; Start 01/18/17 at 17:00 Trimethoprim/ Sulfamethoxazole/ Dextrose (Bactrim/D5W) 525 ml @ 343.333 mls/hr Q8 IVPB Last administered on 01/24/17 22:19; Admin Dose 343.333 MLS/HR; Start 01/19/17 at 13:30 Metoprolol Succinate 50 mg 50 mg QHS PO Last administered on 01/24/17 20:24; Admin Dose 50 MG; Start 01/21/17 at 21:00 Total Parenteral Nutrition 1,000 ml @ 80 mls/hr [id number] IV Last administered on 01/24/17 18:48; Admin Dose 80 MLS/HR; Start 01/21/17 at 16:30 Hydromorphone HCl/ Dextrose (Dilaudid/D5W) 50 ml @ 2 mls/hr TITRATE IV Last administered on 01/24/17 08:30; Admin Dose 2 MLS/HR; Start 01/23/17 at 16:30 Ergocalciferol (Drisdol) 50,000 unit We@09 PO ; Start 01/25/17 at 09:00 Calcium Carbonate 1.25 gm 1.25 gm BID PO Last administered on 01/24/17 20:24; Admin Dose 1.25 GM; Start 01/24/17 at 21:00 Sodium Chloride (NS) 1,000 ml @ 70 mls/hr [id number] IV Last administered on 01/24 16:37; Admin Dose 70 MLS/HR; Start 01/24/17 at 16:30 TAWNY CELIS MD Jan 24, 2017 23:29
[2017-01-25] VITALS (45 sets, daily range): BP systolic 103–164; BP diastolic 67–101; PULSE 87–116; RESP 12–21
[2017-01-25] MEDS: ONDANSETRON 4 MG INJ IV SCH ×4 (00:22→17:57)
[2017-01-25] MEDS: PIPER-TAZO 3.375 GM IV (PMX) 100 ML IVPB SCH ×4 (00:22→17:57)
[2017-01-25] MEDS: ACETAMINOPHEN 1000MG/100ML IV 100 ML IVPB SCH ×4 (00:22→17:57)
[2017-01-25] MEDS: FENTAnyl 50 MCG/ML VIAL IV PRN ×5 (01:29→16:07)
[2017-01-25] MEDS: LEVALBUTEROL (NEB) 0.63 MG/3 ML AMP HHN SCH ×4 (02:00→20:56)
[2017-01-25] MEDS: IPRATROPIUM (NEB) 0.5 MG/2.5 ML AMP HHN SCH ×4 (02:00→20:56)
[2017-01-25] MEDS: TRIMETHOPRIM/SULFAMETHOXAZOLE 25 ML in DEXTROSE 5% 500 ML IVPB SCH ×3 (05:46→22:47)
[2017-01-25 05:49] LABS: ABNORMAL IP MESSAGE 1; HEMATOCRIT 24.7 % (42.0-52.0); HEMOGLOBIN 8.1 g/dl (14.0-18.0); MEAN CORPUSCULAR HEMOGLOBIN 27.7 pg (29.0-33.0); MEAN CORPUSCULAR HGB CONC 32.8 g/dl (32.0-37.0); MEAN CORPUSCULAR VOLUME 84.6 fl (82.0-101.0); MEAN PLATELET VOLUME 12.4 fl (7.4-10.4); PLATELET COUNT 47 10^3/UL (140-415); POSITIVE DIFF @See below; RED BLOOD COUNT 2.92 10^6/ul (4.70-6.10); RED CELL DISTRIBUTION WIDTH 16.6 % (11.5-14.5); WHITE BLOOD COUNT 2.5 10^3/ul (4.8-10.8)
[2017-01-25 05:58] LABS: PROTIME 13.2 Sec (12.2-14.2)
[2017-01-25 05:59] LABS: PARTIAL THROMBOPLASTIN TIME 41.2 Sec (25.0-35.0)
[2017-01-25 06:20] LABS: ALBUMIN 2.6 g/dl (3.3-4.9); ALBUMIN/GLOBULIN RATIO 0.89; BILIRUBIN,INDIRECT 0.5 mg/dl (0-1.1); BILIRUBIN,TOTAL 0.5 mg/dl (0.2-1.3); CALCIUM 8.1 mg/dl (8.4-10.2); CREATININE 0.39 mg/dl (0.61-1.24); PHOSPHORUS 3.3 mg/dl (2.5-4.9); POTASSIUM 3.7 mmol/L (3.5-5.1); TOTAL PROTEIN 5.5 g/dl (6.1-8.1)
--- NOTE | 2017-01-25 07:01 | CONS ---
Date/Time of Note Date/Time of Note DATE: 01/25/17 TIME: 06:59 Assessment/Plan Assessment/Plan Additional Assessment/Plan Patient remains in the intensive care, pain is controlled on 2 mg of Dilaudid per hour and 150 mg of fentanyl IV push every 2 as needed. Aggressive T-cell lymphoma Sepsis syndrome Transaminitis Pain [id number],,, resolved Continue current pain control no changes. While patient has been hospitalized I have not seen patient's family return although they may do so late in the evening. I will speak to nursing staff and patient's . Consultation Date/Type/Reason Admit Date/Time Jan 09, 2017 at 19:08 Initial Consult Date 01/10/17 Type of Consultation: Pain control Referring Provider: YAO RAHMAN Exam/Review of Systems Vital Signs Vitals Vital Signs Date Time Temp Pulse Resp B/P Pulse Ox O2 Delivery O2 Flow Rate FiO2 01/25/17 06:00 104 15 127/70 99 Nasal Cannula 3.0 01/25/17 04:00 97.8 01/22/17 17:22 32 Intake and Output 01/24/17 01/24/17 01/25/17 15:00 23:00 07:00 Intake Total 2299.33 ml 2601.33 ml 2289 ml Output Total 2350 ml 1700 ml 2920 ml Balance -50.67 ml 901.33 ml -631 ml Exam Neurological: No FORENSIC MANAGER II-XII intact, No DTR's symmetric, No confused, No focal weakness, No lethargic, No nl mental status, No nl speech, No nl strength, No numbness, No other, No reflexes, No unresponsive Results Result Diagram: 01/25/17 0500 01/25/17 0500 Results 24 hrs Laboratory Tests Test 01/24/17 15:25 01/25/17 05:00 Sodium Level 129 L 132 L Potassium Level 4.2 3.7 Chloride Level 91 L 98 Carbon Dioxide Level 28 29 Anion Gap 14 9 # Blood Urea Nitrogen 4 L 6 L Creatinine 0.43 L 0.39 L Glucose Level 105 # 102 Calcium Level 8.1 L 8.1 L Free Thyroxine 1.03 White Blood Count 2.5 L Red Blood Count 2.92 L Hemoglobin 8.1 L Hematocrit 24.7 L Mean Corpuscular Volume 84.6 Mean Corpuscular Hemoglobin 27.7 L Mean Corpuscular Hemoglobin Concent 32.8 Red Cell Distribution Width 16.6 H Platelet Count 47 #L Mean Platelet Volume 12.4 H Neutrophils % Lymphocytes % Monocytes % Eosinophils % Basophils % Nucleated Red Blood Cells % 0.0 Neutrophils # (Manual) 2.2 Lymphocytes # Monocytes # Eosinophils # Basophils # Nucleated Red Blood Cells # Prothrombin Time Pending Prothrombin Time Ratio 1.0 INR International Normalized Ratio 1.00 Activated Partial Thromboplast Time 41.2 H Lactic Acid Level 1.4 Phosphorus Level 3.3 Magnesium Level 2.0 Total Bilirubin 0.5 Direct Bilirubin 0.00 Indirect Bilirubin 0.5 Aspartate Amino Transf (AST/SGOT) 105 H Alanine Aminotransferase (ALT/SGPT) 44 Alkaline Phosphatase 176 H B-Type Natriuretic Peptide 178 H Total Protein 5.5 L Albumin 2.6 L Globulin 2.90 Albumin/Globulin Ratio 0.89 Amylase Level 77 Lipase 270 Medications Medications Current Medications Docusate Sodium (Colace) 100 mg Q12H PRN PO CONSTIPATION Last administered on 10:46; Admin Dose 100 MG; Start 01/09/17 at 19:30 Magnesium Hydroxide (Milk Of Mag) 30 ml DAILY PRN PO CONSTIPATION; Start at 19:30 Sodium Biphosphate/ Sodium Phosphate (Fleet Enema) 133 ml DAILY PRN [place] CONSTIPATION; Start 01/09/17 at 19:30 Heparin Sodium (Porcine) 5000 unit 5,000 unit Q12 SC Last administered on 09:43; Admin Dose 5,000 UNIT; Start 01/09/17 at 21:00; Status Future Hold Piperacillin Sod/ Tazobactam Sod (Zosyn 3.375gm/ 100 ml (Pmx)) 100 ml @ 200 mls /hr Q6 IVPB Last administered on 01/25/17 05:46; Admin Dose 200 MLS/HR; Start 01/10/17 at 00:00 Nitroglycerin (Nitroglycerin (Sl Tab) 0.4 Mg) 1 tab Q5M PRN SL ANGINA; Start at 19:30 Miscellaneous Information (Pending [facility] Order For Wound Care) This patient aranda... PRN PRN XX WOUND CARE; Start 01/10/17 at 03:30 Ondansetron HCl 4 mg 4 mg Q6 IV Last administered on 01/25/17 05:26; Admin Dose 4 MG; Start 01/10/17 at 15:30 Acetaminophen (Ofirmev 1000mg/ 100ml Iv) 100 ml @ 400 mls/hr Q6 IVPB Last administered on 01/25/17 05:26; Admin Dose 400 MLS/HR; Start 01/10/17 at 16:30 IV Flush (NS 10 ml) 10 ml PRN PRN IV IV PROTOCOL; Start 01/10/17 at 20:30 Prednisone (Prednisone) 10 mg DAILY PO Last administered on 01/24/17 08:31; Admin Dose 10 MG; Start 01/15/17 at 09:00 Famotidine 20 mg 20 mg BID IV Last administered on 01/24/17 20:23; Admin Dose 20 MG; Start 01/17/17 at 21:00 Levofloxacin/ Dextrose (Levaquin 750 Mg/ D5W 150 ml (Pmx)) 150 ml @ 100 mls/hr Q24H IVPB Last administered on 01/24/17 16:42; Admin Dose 100 MLS/HR; Start at 16:00 Fentanyl 125 mcg 125 mcg Q2H PRN IV PAIN Last administered on 01/25/17 04:49; Admin Dose 125 MCG; Start 01/18/17 at 17:00 Trimethoprim/ Sulfamethoxazole/ Dextrose (Bactrim/D5W) 525 ml @ 343.333 mls/hr Q8 IVPB Last administered on 01/25/17 05:46; Admin Dose 343.333 MLS/HR; Start 01/19/17 at 13:30 Metoprolol Succinate 50 mg 50 mg QHS PO Last administered on 01/24/17 20:24; Admin Dose 50 MG; Start 01/21/17 at 21:00 Total Parenteral Nutrition 1,000 ml @ 80 mls/hr [id number] IV Last administered on 01/24/17 18:48; Admin Dose 80 MLS/HR; Start 01/21/17 at 16:30 Hydromorphone HCl/ Dextrose (Dilaudid/D5W) 50 ml @ 2 mls/hr TITRATE IV Last administered on 01/24/17 08:30; Admin Dose 2 MLS/HR; Start 01/23/17 at 16:30 Ergocalciferol (Drisdol) 50,000 unit We@09 PO ; Start 01/25/17 at 09:00 Calcium Carbonate 1.25 gm 1.25 gm BID PO Last administered on 01/24/17 20:24; Admin Dose 1.25 GM; Start 01/24/17 at 21:00 Sodium Chloride (NS) 1,000 ml @ 70 mls/hr [id number] IV Last administered on 01/24 16:37; Admin Dose 70 MLS/HR; Start 01/24/17 at 16:30 SHELBY WHITE Jan 25, 2017 07:01
[2017-01-25] MEDS: TPN 1,000 ML IV SCH ×2 (08:38→22:46)
[2017-01-25] MEDS: FAMOTIDINE 20 MG INJ IV SCH (08:38)
[2017-01-25] MEDS: CALCIUM CARBONATE 1.25 GM TAB PO SCH ×2 (08:39→22:12)
[2017-01-25] MEDS: predniSONE 20 MG TAB PO SCH (08:39)
[2017-01-25] MEDS: ERGOCALCIFEROL 50,000 UNIT CAP PO SCH (08:39)
[2017-01-25 09:38] LABS: ANISOCYTOSIS 1+ (0-0); EOSINOPHILS % (M) 2 % (0-7); GIANT THROMBO% (M) 5 % (0-0); HYPOCHROMASIA 1+ (0-0); MICROCYTOSIS 1+ (0-0); MONOCYTES % (M) 2 % (0-11); PLATELET ESTIMATE SIG DECREASED
[2017-01-25] MEDS: LEVALBUTEROL (NEB) 0.63 MG/3 ML AMP HHN PRN (09:51)
[2017-01-25] MEDS: IPRATROPIUM (NEB) 0.5 MG/2.5 ML AMP HHN PRN (09:56)
--- NOTE | 2017-01-25 11:04 | CONS ---
Date/Time of Note Date/Time of Note DATE: 01/25/17 TIME: 11:02 Consult Date/Type/Reason Admit Date/Time Jan 09, 2017 at 19:08 Initial Consult Date 01/15/17 Type of Consultation: Pulmonary Ordering Provider: YAO RAHMAN Subjective Patient remains stable no new events. Decreased abdominal pain. Tolerating ice chips and clear liquids. Continues Dilaudid intravenous. Objective Vital Signs Date Time Temp Pulse Resp B/P Pulse Ox O2 Delivery O2 Flow Rate FiO2 01/25/17 10:01 97 16 98 Nasal Cannula 3.0 01/25/17 06:00 127/70 01/25/17 04:00 97.8 01/22/17 17:22 32 Intake and Output 01/24/17 01/24/17 01/25/17 15:00 23:00 07:00 Intake Total 2299.33 ml 2601.33 ml 2289 ml Output Total 2350 ml 1700 ml 2920 ml Balance -50.67 ml 901.33 ml -631 ml Exam PHYSICAL EXAMINATION GENERAL: Well-nourished well-developed gentleman nasal cannula oxygen VITAL SIGNS: see below. HEENT: Pupils equal, round, and reactive to light. CARDIAC: S1, S2, no added sounds or movements CHEST: Diminished air entry bilaterally. Bilateral rales. ABDOMEN: Mildly distended. Bowel sounds present no guarding or rebound EXTREMITIES: No cyanosis, clubbing edema +1 NEUROLOGIC: Generalized weakness Results/Medications Result Diagram: 01/25/17 0500 01/25/17 0500 Results 24 hrs Laboratory Tests Test 01/24/17 15:25 01/25/17 05:00 Sodium Level 129 L 132 L Potassium Level 4.2 3.7 Chloride Level 91 L 98 Carbon Dioxide Level 28 29 Anion Gap 14 9 # Blood Urea Nitrogen 4 L 6 L Creatinine 0.43 L 0.39 L Glucose Level 105 # 102 Calcium Level 8.1 L 8.1 L Free Thyroxine 1.03 White Blood Count 2.5 L Red Blood Count 2.92 L Hemoglobin 8.1 L Hematocrit 24.7 L Mean Corpuscular Volume 84.6 Mean Corpuscular Hemoglobin 27.7 L Mean Corpuscular Hemoglobin Concent 32.8 Red Cell Distribution Width 16.6 H Platelet Count 47 #L Mean Platelet Volume 12.4 H Neutrophils % Segmented Neutrophils % (Manual) 92 H Band Neutrophils % (Manual) 2 Lymphocytes % Lymphocytes % (Manual) 2 L Monocytes % Monocytes % (Manual) 2 Eosinophils % Eosinophils % (Manual) 2 Basophils % Nucleated Red Blood Cells % 0.0 Neutrophils # (Manual) 2.3 Band Neutrophils # 0.0 Absolute Lymphocytes (Manual) 0.0 L Lymphocytes # Monocytes # Absolute Monocytes (Manual) 0.0 L Eosinophils # Basophils # Nucleated Red Blood Cells # Thrombocytosis 5 H Platelet Estimate SIG DECREASED Hypochromasia 1+ Anisocytosis 1+ Microcytosis 1+ Prothrombin Time 13.2 # Prothrombin Time Ratio 1.0 INR International Normalized Ratio 1.00 Activated Partial Thromboplast Time 41.2 H Lactic Acid Level 1.4 Phosphorus Level 3.3 Magnesium Level 2.0 Total Bilirubin 0.5 Direct Bilirubin 0.00 Indirect Bilirubin 0.5 Aspartate Amino Transf (AST/SGOT) 105 H Alanine Aminotransferase (ALT/SGPT) 44 Alkaline Phosphatase 176 H B-Type Natriuretic Peptide 178 H Total Protein 5.5 L Albumin 2.6 L Globulin 2.90 Albumin/Globulin Ratio 0.89 Amylase Level 77 Lipase 270 Medications Current Medications Docusate Sodium (Colace) 100 mg Q12H PRN PO CONSTIPATION Last administered on 10:46; Admin Dose 100 MG; Start 01/09/17 at 19:30 Magnesium Hydroxide (Milk Of Mag) 30 ml DAILY PRN PO CONSTIPATION; Start at 19:30 Sodium Biphosphate/ Sodium Phosphate (Fleet Enema) 133 ml DAILY PRN [place] CONSTIPATION; Start 01/09/17 at 19:30 Heparin Sodium (Porcine) 5000 unit 5,000 unit Q12 SC Last administered on 09:43; Admin Dose 5,000 UNIT; Start 01/09/17 at 21:00; Status Future Hold Piperacillin Sod/ Tazobactam Sod (Zosyn 3.375gm/ 100 ml (Pmx)) 100 ml @ 200 mls /hr Q6 IVPB Last administered on 01/25/17 05:46; Admin Dose 200 MLS/HR; Start 01/10/17 at 00:00 Nitroglycerin (Nitroglycerin (Sl Tab) 0.4 Mg) 1 tab Q5M PRN SL ANGINA; Start at 19:30 Miscellaneous Information ([facility]) This patient aranda... PRN PRN XX WOUND CARE; Start 01/10/17 at 03:30 Ondansetron HCl 4 mg 4 mg Q6 IV Last administered on 01/25/17 05:26; Admin Dose 4 MG; Start 01/10/17 at 15:30 Acetaminophen (Ofirmev 1000mg/ 100ml Iv) 100 ml @ 400 mls/hr Q6 IVPB Last administered on 01/25/17 05:26; Admin Dose 400 MLS/HR; Start 01/10/17 at 16:30 IV Flush (NS 10 ml) 10 ml PRN PRN IV IV PROTOCOL; Start 01/10/17 at 20:30 Prednisone (Prednisone) 10 mg DAILY PO Last administered on 01/25/17 08:39; Admin Dose 10 MG; Start 01/15/17 at 09:00 Famotidine 20 mg 20 mg BID IV Last administered on 01/25/17 08:38; Admin Dose 20 MG; Start 01/17/17 at 21:00 Levofloxacin/ Dextrose (Levaquin 750 Mg/ D5W 150 ml (Pmx)) 150 ml @ 100 mls/hr Q24H IVPB Last administered on 01/24/17 16:42; Admin Dose 100 MLS/HR; Start at 16:00 Fentanyl 125 mcg 125 mcg Q2H PRN IV PAIN Last administered on 01/25/17 08:40; Admin Dose 125 MCG; Start 01/18/17 at 17:00 Trimethoprim/ Sulfamethoxazole/ Dextrose (Bactrim/D5W) 525 ml @ 343.333 mls/hr Q8 IVPB Last administered on 01/25/17 05:46; Admin Dose 343.333 MLS/HR; Start 01/19/17 at 13:30 Metoprolol Succinate 50 mg 50 mg QHS PO Last administered on 01/24/17 20:24; Admin Dose 50 MG; Start 01/21/17 at 21:00 Total Parenteral Nutrition 1,000 ml @ 80 mls/hr [id number] IV Last administered on 01/25/17 08:38; Admin Dose 80 MLS/HR; Start 01/21/17 at 16:30 Hydromorphone HCl/ Dextrose (Dilaudid/D5W) 50 ml @ 2 mls/hr TITRATE IV Last administered on 01/24/17 08:30; Admin Dose 2 MLS/HR; Start 01/23/17 at 16:30 Ergocalciferol (Drisdol) 50,000 unit We@09 PO Last administered on 01/25/17 08 :39; Admin Dose 50,000 UNIT; Start 01/25/17 at 09:00 Calcium Carbonate 1.25 gm 1.25 gm BID PO Last administered on 01/25/17 08:39; Admin Dose 1.25 GM; Start 01/24/17 at 21:00 Sodium Chloride (NS) 1,000 ml @ 70 mls/hr [id number] IV Last administered on 01/24 16:37; Admin Dose 70 MLS/HR; Start 01/24/17 at 16:30 Assessment/Plan Chief Complaint/Hosp Course IMP: 1. Severe pancreatitis--decreased abdominal pain today. Pancreatitis appears to be slowly resolving. 2. Severe HypoCa++--2/2 #1 continue endocrinology recommendations 3. Status post UTI 4. Anaplastic B-cell lymphoma 5. RAMU, resolved 6. Pulmonary nodular opacities--c/w metastatic lymphoma 7. Anemia likely multifactorial. 8. Ongoing sinus tachycardia likely combination of anemia, pain, ongoing inflammation. 9. Hyponatremia possible SIADH. RECS: 1. Continue fluids per nephrology, improved sodium today 2. CT abdomen noted. 3. Endocrinology recommendations with potassium replacement, calcium management. 4. Pain control 5. Follow lytes, renal recommendations may need fluid restriction. 6. Surgery recommendations advance diet per surgery recommendations 7. PT evaluation out of bed if tolerated 8. GI recommendations. Discussed with primary team. Transfer to telemetry okay from pulmonary standpoint Problems: BECKA DINH MD, [facility] Jan 25, 2017 11:04
[2017-01-25] MEDS: HYDROmorphONE 50 MG in DEXTROSE 5% 45 ML IV SCH (11:52)
[2017-01-25] MEDS: SOD CHLORIDE 0.9% 1,000 ML IV SCH ×2 (11:52→22:47)
--- NOTE | 2017-01-25 12:35 | CONS ---
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 He came into the hospital with abdominal pain but at that time had a low lipase level. At that time his calciums were normal his thyroid function was normal he had on appropriate serum cortisol despite having been on tapering dosages of prednisone as an outpatient. I have contacted [employer] to get the blood test reports. While his serum calcium was 5.3 with a low ionized calcium he had a PTH in the mid 20s. This is an inappropriately low normal PTH in the setting of severe hypocalcemia. This indicates hypo-parathyroidism. The patient informs me there is no prior history of this. Since he has not had neck surgery Problems: (1) Hypovitaminosis D Status: Chronic Comment: Being repleted with oral source ergocalciferol. Continue (2) Lymphoma, anaplastic large cell, abdomen Status: Chronic Comment: As per Dr. Alvarez, Chemo??? (3) Hypoparathyroidism, unspecified Status: Acute Comment: Calcium now into normal range Consultation Date/Type/Reason Admit Date/Time Jan 09, 2017 at 19:08 Initial Consult Date 01/15/17 Type of Consultation: Endocrinology Reason for Consultation Hypocalceia with hypovitamonosis D, and low PTH level Referring Provider: YAO RAHMAN 24 HR Interval Summary Free Text/Dictation Patient with same complaints of pain Exam/Review of Systems Vital Signs Vitals Vital Signs Date Time Temp Pulse Resp B/P Pulse Ox O2 Delivery O2 Flow Rate FiO2 01/25/17 11:00 104 17 152/90 99 01/25/17 10:01 Nasal Cannula 3.0 01/25/17 08:00 97.8 01/22/17 17:22 32 Intake and Output 01/24/17 01/24/17 01/25/17 15:00 23:00 07:00 Intake Total 2299.33 ml 2601.33 ml 2439 ml Output Total 2350 ml 1700 ml 2920 ml Balance -50.67 ml 901.33 ml -481 ml Results No change Result Diagram: 01/25/17 0500 01/25/17 0500 Results 24 hrs Laboratory Tests Test 01/24/17 15:25 01/25/17 05:00 Sodium Level 129 L 132 L Potassium Level 4.2 3.7 Chloride Level 91 L 98 Carbon Dioxide Level 28 29 Anion Gap 14 9 # Blood Urea Nitrogen 4 L 6 L Creatinine 0.43 L 0.39 L Glucose Level 105 # 102 Calcium Level 8.1 L 8.1 L Free Thyroxine 1.03 White Blood Count 2.5 L Red Blood Count 2.92 L Hemoglobin 8.1 L Hematocrit 24.7 L Mean Corpuscular Volume 84.6 Mean Corpuscular Hemoglobin 27.7 L Mean Corpuscular Hemoglobin Concent 32.8 Red Cell Distribution Width 16.6 H Platelet Count 47 #L Mean Platelet Volume 12.4 H Neutrophils % Segmented Neutrophils % (Manual) 92 H Band Neutrophils % (Manual) 2 Lymphocytes % Lymphocytes % (Manual) 2 L Monocytes % Monocytes % (Manual) 2 Eosinophils % Eosinophils % (Manual) 2 Basophils % Nucleated Red Blood Cells % 0.0 Neutrophils # (Manual) 2.3 Band Neutrophils # 0.0 Absolute Lymphocytes (Manual) 0.0 L Lymphocytes # Monocytes # Absolute Monocytes (Manual) 0.0 L Eosinophils # Basophils # Nucleated Red Blood Cells # Thrombocytosis 5 H Platelet Estimate SIG DECREASED Hypochromasia 1+ Anisocytosis 1+ Microcytosis 1+ Prothrombin Time 13.2 # Prothrombin Time Ratio 1.0 INR International Normalized Ratio 1.00 Activated Partial Thromboplast Time 41.2 H Lactic Acid Level 1.4 Phosphorus Level 3.3 Magnesium Level 2.0 Total Bilirubin 0.5 Direct Bilirubin 0.00 Indirect Bilirubin 0.5 Aspartate Amino Transf (AST/SGOT) 105 H Alanine Aminotransferase (ALT/SGPT) 44 Alkaline Phosphatase 176 H B-Type Natriuretic Peptide 178 H Total Protein 5.5 L Albumin 2.6 L Globulin 2.90 Albumin/Globulin Ratio 0.89 Amylase Level 77 Lipase 270 Medications Medications Current Medications Docusate Sodium (Colace) 100 mg Q12H PRN PO CONSTIPATION Last administered on t 10:46; Admin Dose 100 MG; Start 01/09/17 at 19:30 Magnesium Hydroxide (Milk Of Mag) 30 ml DAILY PRN PO CONSTIPATION; Start at 19:30 Sodium Biphosphate/ Sodium Phosphate (Fleet Enema) 133 ml DAILY PRN MD CONSTIPATION; Start 01/09/17 at 19:30 Heparin Sodium (Porcine) 5000 unit 5,000 unit Q12 SC Last administered on 09:43; Admin Dose 5,000 UNIT; Start 01/09/17 at 21:00; Status Future Hold Piperacillin Sod/ Tazobactam Sod (Zosyn 3.375gm/ 100 ml (Pmx)) 100 ml @ 200 mls /hr Q6 IVPB Last administered on 01/25/17 11:52; Admin Dose 200 MLS/HR; Start 01/10/17 at 00:00 Nitroglycerin (Nitroglycerin (Sl Tab) 0.4 Mg) 1 tab Q5M PRN SL ANGINA; Start at 19:30 Miscellaneous Information (Pending [facility] Order For Wound Care) This patient aranda... PRN PRN XX WOUND CARE; Start 01/10/17 at 03:30 Ondansetron HCl 4 mg 4 mg Q6 IV Last administered on 01/25/17 11:52; Admin Dose 4 MG; Start 01/10/17 at 15:30 Acetaminophen (Ofirmev 1000mg/ 100ml Iv) 100 ml @ 400 mls/hr Q6 IVPB Last administered on 01/25/17 11:51; Admin Dose 400 MLS/HR; Start 01/10/17 at 16:30 IV Flush (NS 10 ml) 10 ml PRN PRN IV IV PROTOCOL; Start 01/10/17 at 20:30 Prednisone (Prednisone) 10 mg DAILY PO Last administered on 01/25/17 08:39; Admin Dose 10 MG; Start 01/15/17 at 09:00 Famotidine 20 mg 20 mg BID IV Last administered on 01/25/17 08:38; Admin Dose 20 MG; Start 01/17/17 at 21:00 Levofloxacin/ Dextrose (Levaquin 750 Mg/ D5W 150 ml (Pmx)) 150 ml @ 100 mls/hr Q24H IVPB Last administered on 01/24/17 16:42; Admin Dose 100 MLS/HR; Start at 16:00 Fentanyl 125 mcg 125 mcg Q2H PRN IV PAIN Last administered on 01/25/17 11:51; Admin Dose 125 MCG; Start 01/18/17 at 17:00 Trimethoprim/ Sulfamethoxazole/ Dextrose (Bactrim/D5W) 525 ml @ 343.333 mls/hr Q8 IVPB Last administered on 01/25/17 05:46; Admin Dose 343.333 MLS/HR; Start 01/19/17 at 13:30 Metoprolol Succinate 50 mg 50 mg QHS PO Last administered on 01/24/17 20:24; Admin Dose 50 MG; Start 01/21/17 at 21:00 Total Parenteral Nutrition 1,000 ml @ 80 mls/hr [id number] IV Last administered on 01/25/17 08:38; Admin Dose 80 MLS/HR; Start 01/21/17 at 16:30 Hydromorphone HCl/ Dextrose (Dilaudid/D5W) 50 ml @ 2 mls/hr TITRATE IV Last administered on 01/25/17 11:52; Admin Dose 2 MLS/HR; Start 01/23/17 at 16:30 Ergocalciferol (Drisdol) 50,000 unit We@09 PO Last administered on 01/25/17 08 :39; Admin Dose 50,000 UNIT; Start 01/25/17 at 09:00 Calcium Carbonate 1.25 gm 1.25 gm BID PO Last administered on 01/25/17 08:39; Admin Dose 1.25 GM; Start 01/24/17 at 21:00 Sodium Chloride (NS) 1,000 ml @ 70 mls/hr [id number] IV Last administered on 01/25 11:52; Admin Dose 70 MLS/HR; Start 01/24/17 at 16:30 YOLY NASCIMENTO MD Jan 25, 2017 12:34
--- NOTE | 2017-01-25 13:53 | CONS ---
Date/Time of Note Date/Time of Note DATE: 01/25/17 TIME: 13:52 Assessment/Plan Assessment/Plan Chief Complaint/Hosp Course Anaplastic B-cell Lymphoma pt was dx'd with lymphoma a year and half ago , it turned into an aggressive type. His last chemo was a month ago and hadn't had since due to experiencing similar presenting symptoms. record from pt's oncologist Kain Wisdom - Kenji Left flank mass, CT-guided core needle biopsies with touch imprints: Completely necrotic tissue, insufficient for pathologic evaluation. PER PT REPORT- reportedly scheduled for change in therapy due to what appears to be lack of adequate response LEUKOPENIA IN PT WITH HNL ON CHEMO AND WITH SEPTIC PICTURE MONITOR BLOOD COUNT CLOSELY POST NEUPOGEN WBC- FLUCTUATING , NOT IN NEUTROPENIA LEVEL AT PRESENT PANCYTOPENIA POST CHEMO CONT TO MONITOR PRBC NEEDED Sepsis 2/2 PNA - abx, IVF - f/u culture results - ID pancreatitis. Abd Pain with N/V: 2/2 known lymphoma - pain mgmt - Anti-emetics Hyponatremia and Hypokalemia: 2/2 vomiting - NS IVF - replete K+ as needed Presumed RAMU: likely pre-renal 2/2 vomiting - cont IVF for now Problems: Consultation Date/Type/Reason Admit Date/Time Jan 09, 2017 at 19:08 Initial Consult Date 01/10/17 Type of Consultation: [facility] Referring Provider: YAO RAHMAN 24 HR Interval Summary Free Text/Dictation ALL NOTED Exam/Review of Systems Vital Signs Vitals Vital Signs Date Time Temp Pulse Resp B/P Pulse Ox O2 Delivery O2 Flow Rate FiO2 01/25/17 12:00 108 01/25/17 11:00 17 152/90 99 01/25/17 10:01 Nasal Cannula 3.0 01/25/17 08:00 97.8 01/22/17 17:22 32 Intake and Output 01/24/17 01/24/17 01/25/17 15:00 23:00 07:00 Intake Total 2299.33 ml 2601.33 ml 2439 ml Output Total 2350 ml 1700 ml 2920 ml Balance -50.67 ml 901.33 ml -481 ml Exam This is an obese, chronically ill- appearing, middle aged man who is awake, in no distress. HEENT: Head atraumatic, normocephalic. Sclerae anicteric. Buccal mucosa dry. NECK: Obese. CHEST: Rise symmetrical. Breath sounds diminished at the bases. HEART: S1, S2. Tachycardic, regular. ABDOMEN: Obese, soft, bowel sounds present. EXTREMITIES: Without cyanosis, bilateral edema with multiple unstageable wounds. SKIN: Generalized edema with multiple necrotic wounds. Results Result Diagram: 01/25/17 0500 01/25/17 0500 Results 24 hrs Laboratory Tests Test 01/24/17 15:25 01/25/17 05:00 Sodium Level 129 L 132 L Potassium Level 4.2 3.7 Chloride Level 91 L 98 Carbon Dioxide Level 28 29 Anion Gap 14 9 # Blood Urea Nitrogen 4 L 6 L Creatinine 0.43 L 0.39 L Glucose Level 105 # 102 Calcium Level 8.1 L 8.1 L Free Thyroxine 1.03 White Blood Count 2.5 L Red Blood Count 2.92 L Hemoglobin 8.1 L Hematocrit 24.7 L Mean Corpuscular Volume 84.6 Mean Corpuscular Hemoglobin 27.7 L Mean Corpuscular Hemoglobin Concent 32.8 Red Cell Distribution Width 16.6 H Platelet Count 47 #L Mean Platelet Volume 12.4 H Neutrophils % Segmented Neutrophils % (Manual) 92 H Band Neutrophils % (Manual) 2 Lymphocytes % Lymphocytes % (Manual) 2 L Monocytes % Monocytes % (Manual) 2 Eosinophils % Eosinophils % (Manual) 2 Basophils % Nucleated Red Blood Cells % 0.0 Neutrophils # (Manual) 2.3 Band Neutrophils # 0.0 Absolute Lymphocytes (Manual) 0.0 L Lymphocytes # Monocytes # Absolute Monocytes (Manual) 0.0 L Eosinophils # Basophils # Nucleated Red Blood Cells # Thrombocytosis 5 H Platelet Estimate SIG DECREASED Hypochromasia 1+ Anisocytosis 1+ Microcytosis 1+ Prothrombin Time 13.2 # Prothrombin Time Ratio 1.0 INR International Normalized Ratio 1.00 Activated Partial Thromboplast Time 41.2 H Lactic Acid Level 1.4 Phosphorus Level 3.3 Magnesium Level 2.0 Total Bilirubin 0.5 Direct Bilirubin 0.00 Indirect Bilirubin 0.5 Aspartate Amino Transf (AST/SGOT) 105 H Alanine Aminotransferase (ALT/SGPT) 44 Alkaline Phosphatase 176 H B-Type Natriuretic Peptide 178 H Total Protein 5.5 L Albumin 2.6 L Globulin 2.90 Albumin/Globulin Ratio 0.89 Amylase Level 77 Lipase 270 Medications Medications Current Medications Docusate Sodium (Colace) 100 mg Q12H PRN PO CONSTIPATION Last administered on 10:46; Admin Dose 100 MG; Start 01/09/17 at 19:30 Magnesium Hydroxide (Milk Of Mag) 30 ml DAILY PRN PO CONSTIPATION; Start at 19:30 Sodium Biphosphate/ Sodium Phosphate (Fleet Enema) 133 ml DAILY PRN ID CONSTIPATION; Start 01/09/17 at 19:30 Heparin Sodium (Porcine) 5000 unit 5,000 unit Q12 SC Last administered on 09:43; Admin Dose 5,000 UNIT; Start 01/09/17 at 21:00; Status Future Hold Piperacillin Sod/ Tazobactam Sod (Zosyn 3.375gm/ 100 ml (Pmx)) 100 ml @ 200 mls /hr Q6 IVPB Last administered on 01/25/17 11:52; Admin Dose 200 MLS/HR; Start 01/10/17 at 00:00 Nitroglycerin (Nitroglycerin (Sl Tab) 0.4 Mg) 1 tab Q5M PRN SL ANGINA; Start at 19:30 Miscellaneous Information (Pending [facility] Order For Wound Care) This patient aranda... PRN PRN XX WOUND CARE; Start 01/10/17 at 03:30 Ondansetron HCl 4 mg 4 mg Q6 IV Last administered on 01/25/17 11:52; Admin Dose 4 MG; Start 01/10/17 at 15:30 Acetaminophen (Ofirmev 1000mg/ 100ml Iv) 100 ml @ 400 mls/hr Q6 IVPB Last administered on 01/25/17 11:51; Admin Dose 400 MLS/HR; Start 01/10/17 at 16:30 IV Flush (NS 10 ml) 10 ml PRN PRN IV IV PROTOCOL; Start 01/10/17 at 20:30 Prednisone (Prednisone) 10 mg DAILY PO Last administered on 01/25/17 08:39; Admin Dose 10 MG; Start 01/15/17 at 09:00 Famotidine 20 mg 20 mg BID IV Last administered on 01/25/17 08:38; Admin Dose 20 MG; Start 01/17/17 at 21:00 Levofloxacin/ Dextrose (Levaquin 750 Mg/ D5W 150 ml (Pmx)) 150 ml @ 100 mls/hr Q24H IVPB Last administered on 01/24/17 16:42; Admin Dose 100 MLS/HR; Start at 16:00 Fentanyl 125 mcg 125 mcg Q2H PRN IV PAIN Last administered on 01/25/17 11:51; Admin Dose 125 MCG; Start 01/18/17 at 17:00 Trimethoprim/ Sulfamethoxazole/ Dextrose (Bactrim/D5W) 525 ml @ 343.333 mls/hr Q8 IVPB Last administered on 01/25/17 05:46; Admin Dose 343.333 MLS/HR; Start 01/19/17 at 13:30 Metoprolol Succinate 50 mg 50 mg QHS PO Last administered on 01/24/17 20:24; Admin Dose 50 MG; Start 01/21/17 at 21:00 Total Parenteral Nutrition 1,000 ml @ 80 mls/hr [id number] IV Last administered on 01/25/17 08:38; Admin Dose 80 MLS/HR; Start 01/21/17 at 16:30 Hydromorphone HCl/ Dextrose (Dilaudid/D5W) 50 ml @ 2 mls/hr TITRATE IV Last administered on 01/25/17 11:52; Admin Dose 2 MLS/HR; Start 01/23/17 at 16:30 Ergocalciferol (Drisdol) 50,000 unit We@09 PO Last administered on 01/25/17 08 :39; Admin Dose 50,000 UNIT; Start 01/25/17 at 09:00 Calcium Carbonate 1.25 gm 1.25 gm BID PO Last administered on 01/25/17 08:39; Admin Dose 1.25 GM; Start 01/24/17 at 21:00 Sodium Chloride (NS) 1,000 ml @ 70 mls/hr [id number] IV Last administered on 01/25 11:52; Admin Dose 70 MLS/HR; Start 01/24/17 at 16:30 MOIRA BIRMINGHAM MD Jan 25, 2017 13:52
--- NOTE | 2017-01-25 15:45 | PN ---
Date/Time of Note Date/Time of Note DATE: 01/25/17 TIME: 15:42 Assessment/Plan VTE Prophylaxis VTE Prophylaxis Intervention: SCD's Lines/Catheters IV Catheter Type (from Nrs): PICC Line Central line still needed: Yes Urinary Cath still in place: No Assessment/Plan Assessment/Plan * Anemia * Acute pancreatitis, etiology unclear * Mild abnormality liver function tests with no evidence of biliary pathology * Anaplastic B-cell lymphoma/aggressive behavior * Sepsis/pneumonia/improved Plan: * Transfuse as needed * Monitor hemoglobin and hematocrit daily * Continue monitor lipase and abdominal pain * Once abdominal pain subsides made reintroduce diet * case discussed with Dr Hewitt Subjective 24 Hr Interval Summary Free Text/Dictation * course reviewed * Patient seen and examined * Tolerating liquids * still with abdominal pain on 2 mg Dilaudid continuos * no untoward events overnight Exam/Review of Systems Vital Signs Vitals Vital Signs Date Time Temp Pulse Resp B/P Pulse Ox O2 Delivery O2 Flow Rate FiO2 01/25/17 15:30 102 18 99 01/25/17 15:00 148/89 01/25/17 14:59 Nasal Cannula 3.0 01/25/17 11:00 97.8 01/22/17 17:22 32 Intake and Output 01/24/17 01/24/17 01/25/17 15:00 23:00 07:00 Intake Total 2299.33 ml 2601.33 ml 2439 ml Output Total 2350 ml 1700 ml 2920 ml Balance -50.67 ml 901.33 ml -481 ml Exam Constitutional: alert, frail Neck: non-tender, supple Respiratory: clear to auscultation, normal air movement Cardiovascular: nl pulses, regular rate and rhythm Gastrointestinal: distended, soft, tender, No rebound or guarding Musculoskeletal: muscle weakness, nl extremities to inspection Extremities: edema, normal pulses Neurological: nl mental status, nl speech Skin: nl turgor Results Result Diagram: 01/25/17 0500 01/25/17 0500 Results 24 hrs Laboratory Tests Test 01/25/17 05:00 White Blood Count 2.5 L Red Blood Count 2.92 L Hemoglobin 8.1 L Hematocrit 24.7 L Mean Corpuscular Volume 84.6 Mean Corpuscular Hemoglobin 27.7 L Mean Corpuscular Hemoglobin Concent 32.8 Red Cell Distribution Width 16.6 H Platelet Count 47 #L Mean Platelet Volume 12.4 H Neutrophils % Segmented Neutrophils % (Manual) 92 H Band Neutrophils % (Manual) 2 Lymphocytes % Lymphocytes % (Manual) 2 L Monocytes % Monocytes % (Manual) 2 Eosinophils % Eosinophils % (Manual) 2 Basophils % Nucleated Red Blood Cells % 0.0 Neutrophils # (Manual) 2.3 Band Neutrophils # 0.0 Absolute Lymphocytes (Manual) 0.0 L Lymphocytes # Monocytes # Absolute Monocytes (Manual) 0.0 L Eosinophils # Basophils # Nucleated Red Blood Cells # Thrombocytosis 5 H Platelet Estimate SIG DECREASED Hypochromasia 1+ Anisocytosis 1+ Microcytosis 1+ Prothrombin Time 13.2 # Prothrombin Time Ratio 1.0 INR International Normalized Ratio 1.00 Activated Partial Thromboplast Time 41.2 H Sodium Level 132 L Potassium Level 3.7 Chloride Level 98 Carbon Dioxide Level 29 Anion Gap 9 # Blood Urea Nitrogen 6 L Creatinine 0.39 L Glucose Level 102 Lactic Acid Level 1.4 Calcium Level 8.1 L Phosphorus Level 3.3 Magnesium Level 2.0 Total Bilirubin 0.5 Direct Bilirubin 0.00 Indirect Bilirubin 0.5 Aspartate Amino Transf (AST/SGOT) 105 H Alanine Aminotransferase (ALT/SGPT) 44 Alkaline Phosphatase 176 H B-Type Natriuretic Peptide 178 H Total Protein 5.5 L Albumin 2.6 L Globulin 2.90 Albumin/Globulin Ratio 0.89 Amylase Level 77 Lipase 270 Medications Medications Current Medications Docusate Sodium (Colace) 100 mg Q12H PRN PO CONSTIPATION Last administered on 10:46; Admin Dose 100 MG; Start 01/09/17 at 19:30 Magnesium Hydroxide (Milk Of Mag) 30 ml DAILY PRN PO CONSTIPATION; Start at 19:30 Sodium Biphosphate/ Sodium Phosphate (Fleet Enema) 133 ml DAILY PRN [place] CONSTIPATION; Start 01/09/17 at 19:30 Heparin Sodium (Porcine) 5000 unit 5,000 unit Q12 SC Last administered on 09:43; Admin Dose 5,000 UNIT; Start 01/09/17 at 21:00; Status Future Hold Piperacillin Sod/ Tazobactam Sod (Zosyn 3.375gm/ 100 ml (Pmx)) 100 ml @ 200 mls /hr Q6 IVPB Last administered on 01/25/17 11:52; Admin Dose 200 MLS/HR; Start 01/10/17 at 00:00 Nitroglycerin (Nitroglycerin (Sl Tab) 0.4 Mg) 1 tab Q5M PRN SL ANGINA; Start at 19:30 Miscellaneous Information (Pending [facility] Order For Wound Care) This patient aranda... PRN PRN XX WOUND CARE; Start 01/10/17 at 03:30 Ondansetron HCl 4 mg 4 mg Q6 IV Last administered on 01/25/17 11:52; Admin Dose 4 MG; Start 01/10/17 at 15:30 Acetaminophen (Ofirmev 1000mg/ 100ml Iv) 100 ml @ 400 mls/hr Q6 IVPB Last administered on 01/25/17 11:51; Admin Dose 400 MLS/HR; Start 01/10/17 at 16:30 IV Flush (NS 10 ml) 10 ml PRN PRN IV IV PROTOCOL; Start 01/10/17 at 20:30 Prednisone (Prednisone) 10 mg DAILY PO Last administered on 01/25/17 08:39; Admin Dose 10 MG; Start 01/15/17 at 09:00 Famotidine 20 mg 20 mg BID IV Last administered on 01/25/17 08:38; Admin Dose 20 MG; Start 01/17/17 at 21:00 Levofloxacin/ Dextrose (Levaquin 750 Mg/ D5W 150 ml (Pmx)) 150 ml @ 100 mls/hr Q24H IVPB Last administered on 01/24/17 16:42; Admin Dose 100 MLS/HR; Start at 16:00 Fentanyl 125 mcg 125 mcg Q2H PRN IV PAIN Last administered on 01/25/17 11:51; Admin Dose 125 MCG; Start 01/18/17 at 17:00 Trimethoprim/ Sulfamethoxazole/ Dextrose (Bactrim/D5W) 525 ml @ 343.333 mls/hr Q8 IVPB Last administered on 01/25/17 14:15; Admin Dose 343.333 MLS/HR; Start 01/19/17 at 13:30 Metoprolol Succinate 50 mg 50 mg QHS PO Last administered on 01/24/17 20:24; Admin Dose 50 MG; Start 01/21/17 at 21:00 Total Parenteral Nutrition 1,000 ml @ 80 mls/hr [id number] IV Last administered on 01/25/17 08:38; Admin Dose 80 MLS/HR; Start 01/21/17 at 16:30 Hydromorphone HCl/ Dextrose (Dilaudid/D5W) 50 ml @ 2 mls/hr TITRATE IV Last administered on 01/25/17 11:52; Admin Dose 2 MLS/HR; Start 01/23/17 at 16:30 Ergocalciferol (Drisdol) 50,000 unit We@09 PO Last administered on 01/25/17 08 :39; Admin Dose 50,000 UNIT; Start 01/25/17 at 09:00 Calcium Carbonate 1.25 gm 1.25 gm BID PO Last administered on 01/25/17 08:39; Admin Dose 1.25 GM; Start 01/24/17 at 21:00 Sodium Chloride (NS) 1,000 ml @ 70 mls/hr [id number] IV Last administered on 01/25 11:52; Admin Dose 70 MLS/HR; Start 01/24/17 at 16:30 SELENA ROY NP Jan 25, 2017 15:45
[2017-01-25] MEDS: LEVOFLOXACIN 750MG/D5W (PMX) 150 ML IVPB SCH (16:06)
--- NOTE | 2017-01-25 20:32 | PN ---
Date/Time of Note Date/Time of Note DATE: 01/25/17 TIME: 12:30 Assessment/Plan Lines/Catheters IV Catheter Type (from Nrs): PICC Line Sierra in Place (from Nrsg): No Assessment/Plan Assessment/Plan [facility] Progress Note Date of Service: 01/25/2017 Place of service: [facility] ICU Today's Assessment & Plan: Overall stable with abdominal pain which seems stable and not worsening with resumption of liquid intake. Pancreatitis seems resolved. Awaiting further analysis of the biliary system.. No indication for acute surgical intervention. Discussed with patient and answered all questions. 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 Very difficult situation with somewhat poor prognosis. Fortunately no indication for acute surgical intervention. No evidence of infected necrosis that would require drain placement or surgical necrosectomy of the pancreas. Would be important to try and avoid major interventions in order to not delay life-prolonging chemotherapeutic intervention. With above assessment, I've recommended the followin. Continue aggressive medical management 2. Advance diet slowly 3. Follow GIs recommendations 4. If it would make a difference in management, may consider percutaneous biopsy of segment 6 area of abnormality in the liver 5. Multidisciplinary tumor board presentation and discussions 6. Consideration for clinical trials once improved medically 7. LFT's, amylase and lipase checks tomorrow with labs 8. Agree with transfer out of ICU Thank you very much for having me involved in the care of this very pleasant patient and wonderful family. If you have any questions, please feel free to contact me at [phone]. Nature of presenting problem: High severity Please note that, given the extensive number of diagnoses or management options , the extensive amount and/or complexity of data needed to be reviewed, and high risk of complications and/or morbidity or mortality, this qualifies as high complexity type of decision-making. Disclaimer: Inadvertent spelling and grammatical errors are likely due to EHR/ dictation software use and do not reflect on the quality of delivered patient care. Also, please note that the electronic time recorded on this node does not necessarily reflect the actual time of the visit. 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 Status post CT-guided left flank subcutaneous nodule biopsy [facility] 01/12/2017. Comorbidities: 1. BMI 40.7 2. Small right pleural effusion with atelectasis and right lung base pneumonia. 3. Large B cell anaplastic lymphoma; status post chemo 1 month prior to presentation 4. Sepsis 5. Hyponatremia 6. Hypokalemia 7. Acute renal injury Subjective: No major events or complaints; reported no major new abd pain and under control with medications; no significant reported nausea or vomiting without diarrhea; no sob or cp; + flatus; - BM; minimal to no activity. Objective: Vitals: See below I's & O's: See below Exam: GENERAL: On exam, the patient was lying in bed and appeared to be comfortable and in no acute distress. ABDOMEN: Soft, minimal to no tenderness and nondistended. There are no peritoneal signs or guarding. SKIN: Skin appears to be pink and feels warm to touch. NEUROLOGIC: Patient is awake, alert, and follows commands appropriately. Labs: See below CT abdomen and pelvis with IV contrast [facility] 2016 IMPRESSION: extensive peripancreatic edema, increased. No evidence of organized fluid collection. Small volume ascites, increased. Heterogeneous mass-like areas of enhancement within the liver, mildly decreased in size over prior examinations. Further characterization with MRI abdomen with without contrast may be helpful. Numerous small irregular nodules throughout the lung bases, grossly unchanged. Small bilateral pleural effusions are present. Extensive subcutaneous infiltration, slightly progressed. Background subcutaneous edema is also likely present. Splenomegaly. Subtle focal hypoenhancing mass/poor corticomedullary distinction within the left kidney, unchanged. Exam/Review of Systems Vital Signs Vitals Vital Signs Date Time Temp Pulse Resp B/P Pulse Ox O2 Delivery O2 Flow Rate FiO2 01/25/17 19:46 97.7 102 18 149/78 96 01/25/17 18:26 3.0 01/25/17 14:59 Nasal Cannula 01/22/17 17:22 32 Intake and Output 01/24/17 01/24/17 01/25/17 15:00 23:00 07:00 Intake Total 2299.33 ml 2601.33 ml 2439 ml Output Total 2350 ml 1700 ml 2920 ml Balance -50.67 ml 901.33 ml -481 ml Results Result Diagram: 01/25/17 0500 01/25/17 0500 LENKA HERNANDEZ M.D. Jan 25, 2017 20:32
--- NOTE | 2017-01-25 21:13 | PN ---
Date/Time of Note Date/Time of Note DATE: 01/25/17 TIME: 21:12 Assessment/Plan VTE Prophylaxis VTE Prophylaxis Intervention: other Lines/Catheters IV Catheter Type (from Nrs): PICC Line Central line still needed: Yes Urinary Cath still in place: No Assessment/Plan Chief Complaint/Hosp Course PANCREATITIS HYPOCALCEMIA better HYPOPHOSPHATEMIA better OBESITY SIRS lymphoma sirs obesity pancytopenia multiple decubitus sepsis PLAN TPN LYTE REPLACEMENT clear liq ambulate Problems: Subjective 24 Hr Interval Summary Cardiovascular: no complaints Gastrointestinal: no complaints Exam/Review of Systems Vital Signs Vitals Vital Signs Date Time Temp Pulse Resp B/P Pulse Ox O2 Delivery O2 Flow Rate FiO2 01/25/17 20:59 102 18 98 21 01/25/17 19:46 97.7 149/78 01/25/17 18:26 3.0 01/25/17 14:59 Nasal Cannula Intake and Output 01/24/17 01/24/17 01/25/17 15:00 23:00 07:00 Intake Total 2299.33 ml 2601.33 ml 2439 ml Output Total 2350 ml 1700 ml 2920 ml Balance -50.67 ml 901.33 ml -481 ml Exam Neck: supple Respiratory: diminished breath sounds Cardiovascular: regular rate and rhythm Gastrointestinal: bowel sounds (+), soft Extremities: edema (+) Skin: other (wound+) Results Result Diagram: 01/25/17 0500 01/25/17 0500 Results 24 hrs Laboratory Tests Test 01/25/17 05:00 White Blood Count 2.5 L Red Blood Count 2.92 L Hemoglobin 8.1 L Hematocrit 24.7 L Mean Corpuscular Volume 84.6 Mean Corpuscular Hemoglobin 27.7 L Mean Corpuscular Hemoglobin Concent 32.8 Red Cell Distribution Width 16.6 H Platelet Count 47 #L Mean Platelet Volume 12.4 H Neutrophils % Segmented Neutrophils % (Manual) 92 H Band Neutrophils % (Manual) 2 Lymphocytes % Lymphocytes % (Manual) 2 L Monocytes % Monocytes % (Manual) 2 Eosinophils % Eosinophils % (Manual) 2 Basophils % Nucleated Red Blood Cells % 0.0 Neutrophils # (Manual) 2.3 Band Neutrophils # 0.0 Absolute Lymphocytes (Manual) 0.0 L Lymphocytes # Monocytes # Absolute Monocytes (Manual) 0.0 L Eosinophils # Basophils # Nucleated Red Blood Cells # Thrombocytosis 5 H Platelet Estimate SIG DECREASED Hypochromasia 1+ Anisocytosis 1+ Microcytosis 1+ Prothrombin Time 13.2 # Prothrombin Time Ratio 1.0 INR International Normalized Ratio 1.00 Activated Partial Thromboplast Time 41.2 H Sodium Level 132 L Potassium Level 3.7 Chloride Level 98 Carbon Dioxide Level 29 Anion Gap 9 # Blood Urea Nitrogen 6 L Creatinine 0.39 L Glucose Level 102 Lactic Acid Level 1.4 Calcium Level 8.1 L Phosphorus Level 3.3 Magnesium Level 2.0 Total Bilirubin 0.5 Direct Bilirubin 0.00 Indirect Bilirubin 0.5 Aspartate Amino Transf (AST/SGOT) 105 H Alanine Aminotransferase (ALT/SGPT) 44 Alkaline Phosphatase 176 H B-Type Natriuretic Peptide 178 H Total Protein 5.5 L Albumin 2.6 L Globulin 2.90 Albumin/Globulin Ratio 0.89 Amylase Level 77 Lipase 270 Medications Medications Current Medications Docusate Sodium (Colace) 100 mg Q12H PRN PO CONSTIPATION Last administered on 10:46; Admin Dose 100 MG; Start 01/09/17 at 19:30 Magnesium Hydroxide (Milk Of Mag) 30 ml DAILY PRN PO CONSTIPATION; Start at 19:30 Sodium Biphosphate/ Sodium Phosphate (Fleet Enema) 133 ml DAILY PRN [place] CONSTIPATION; Start 01/09/17 at 19:30 Heparin Sodium (Porcine) 5000 unit 5,000 unit Q12 SC Last administered on 09:43; Admin Dose 5,000 UNIT; Start 01/09/17 at 21:00; Status Future Hold Piperacillin Sod/ Tazobactam Sod (Zosyn 3.375gm/ 100 ml (Pmx)) 100 ml @ 200 mls /hr Q6 IVPB Last administered on 01/25/17 17:57; Admin Dose 200 MLS/HR; Start 01/10/17 at 00:00 Nitroglycerin (Nitroglycerin (Sl Tab) 0.4 Mg) 1 tab Q5M PRN SL ANGINA; Start at 19:30 [facility] This patient aranda... PRN PRN XX WOUND CARE; Start 01/10/17 at 03:30 Ondansetron HCl 4 mg 4 mg Q6 IV Last administered on 01/25/17 17:57; Admin Dose 4 MG; Start 01/10/17 at 15:30 Acetaminophen (Ofirmev 1000mg/ 100ml Iv) 100 ml @ 400 mls/hr Q6 IVPB Last administered on 01/25/17 17:57; Admin Dose 400 MLS/HR; Start 01/10/17 at 16:30 IV Flush (NS 10 ml) 10 ml PRN PRN IV IV PROTOCOL; Start 01/10/17 at 20:30 Prednisone 10 mg 10 mg DAILY PO Last administered on 01/25/17 08:39; Admin Dose 10 MG; Start 01/15/17 at 09:00 Levofloxacin/ Dextrose 150 ml @ 100 mls/hr Q24H IVPB Last administered on 01/25 16:06; Admin Dose 100 MLS/HR; Start 01/18/17 at 16:00 Trimethoprim/ Sulfamethoxazole/ Dextrose (Bactrim/D5W) 525 ml @ 343.333 mls/hr Q8 IVPB Last administered on 01/25/17 14:15; Admin Dose 343.333 MLS/HR; Start 01/19/17 at 13:30 Metoprolol Succinate 50 mg 50 mg QHS PO Last administered on 01/24/17 20:24; Admin Dose 50 MG; Start 01/21/17 at 21:00 Total Parenteral Nutrition 1,000 ml @ 80 mls/hr [id number] IV Last administered on 01/25/17 08:38; Admin Dose 80 MLS/HR; Start 01/21/17 at 16:30 Hydromorphone HCl/ Dextrose (Dilaudid/D5W) 50 ml @ 2 mls/hr TITRATE IV Last administered on 01/25/17 11:52; Admin Dose 2 MLS/HR; Start 01/23/17 at 16:30 Ergocalciferol (Drisdol) 50,000 unit We@09 PO Last administered on 01/25/17 08 :39; Admin Dose 50,000 UNIT; Start 01/25/17 at 09:00 Calcium Carbonate 1.25 gm 1.25 gm BID PO Last administered on 01/25/17 08:39; Admin Dose 1.25 GM; Start 01/24/17 at 21:00 Sodium Chloride (NS) 1,000 ml @ 70 mls/hr [id number] IV Last administered on 8/16 /17at 11:52; Admin Dose 70 MLS/HR; Start 01/24/17 at 16:30 Pantoprazole (Protonix Tab) 40 mg DAILY@06 PO ; Start 01/26/17 at 06:00 Hydromorphone HCl (Dilaudid) 1 mg Q2 PRN IV PAIN; Start 01/25/17 at 21:00 TAWNY CELIS MD Jan 25, 2017 21:13
[2017-01-25] MEDS: METOPROLOL (XL) 25 MG TAB PO SCH (22:13)
[2017-01-25] MEDS: HYDROmorphONE 1 MG/ML SYG IV PRN (22:41)
[2017-01-26] VITALS (12 sets, daily range): BP systolic 121–145; BP diastolic 57–77; PULSE 92–140; RESP 16–21
[2017-01-26] MEDS: HYDROmorphONE 1 MG/ML SYG IV PRN ×9 (00:54→20:00)
[2017-01-26] MEDS: ONDANSETRON 4 MG INJ IV SCH ×4 (01:20→17:21)
[2017-01-26] MEDS: PIPER-TAZO 3.375 GM IV (PMX) 100 ML IVPB SCH ×4 (01:20→17:21)
[2017-01-26] MEDS: LEVALBUTEROL (NEB) 0.63 MG/3 ML AMP HHN SCH ×4 (01:40→19:31)
[2017-01-26] MEDS: IPRATROPIUM (NEB) 0.5 MG/2.5 ML AMP HHN SCH ×4 (01:40→19:32)
[2017-01-26] MEDS: ACETAMINOPHEN 1000MG/100ML IV 100 ML IVPB SCH ×4 (06:10→17:21)
[2017-01-26] MEDS: PANTOPRAZOLE (EC) 40 MG TAB PO SCH (06:11)
[2017-01-26] MEDS: TRIMETHOPRIM/SULFAMETHOXAZOLE 25 ML in DEXTROSE 5% 500 ML IVPB SCH ×3 (07:08→22:42)
[2017-01-26 08:07] LABS: CALCIUM 8.5 mg/dl (8.4-10.2); CREATININE 0.48 mg/dl (0.61-1.24); MAGNESIUM 1.5 mg/dl (1.7-2.5); PHOSPHORUS 2.8 mg/dl (2.5-4.9); POTASSIUM 3.8 mmol/L (3.5-5.1)
[2017-01-26] MEDS: predniSONE 20 MG TAB PO SCH (08:42)
[2017-01-26] MEDS: CALCIUM CARBONATE 1.25 GM TAB PO SCH ×2 (08:42→20:00)
[2017-01-26] MEDS: TPN 1,000 ML IV SCH ×2 (08:42→22:42)
--- NOTE | 2017-01-26 09:51 | PN ---
DATE: 01/25/2017 SUBJECTIVE DATA: No acute changes overnight. The patient spiked a fever this morning of 102, currently afebrile. He is awake, denies pain, and in no distress. OBJECTIVE DATA: Temperature 97.8, pulse 108, respirations 17, blood pressure 152/90, saturation 99 percent on 3 L nasal cannula. LABORATORY STUDIES: WBC 2.5, H and H 8.1 and 24.7, platelets 47. BUN 6, creatinine 0.39. MICROBIOLOGY: Blood cultures remain negative. Urine culture negative. Sputum culture growing gram-negative rods. Right lower extremity wound culture grew Citrobacter Freundii , Enterococcus species, Corynebacterium species, and Stenotrophomonas maltophilia. INDWELLINGS: PICC line. ANTIMICROBIALS: Bactrim, Levaquin, Zosyn. PHYSICAL EXAMINATION: This is an obese, chronically ill- appearing, middle aged man who is awake, in no distress. HEENT: Head atraumatic, normocephalic. Sclerae anicteric. Buccal mucosa dry. NECK: Obese. CHEST: Rise symmetrical. Breath sounds diminished at the bases. HEART: S1, S2. Tachycardic, regular. ABDOMEN: Obese, soft, bowel sounds present. EXTREMITIES: Without cyanosis, bilateral edema with multiple unstageable wounds. SKIN: Generalized edema with multiple necrotic wounds. ASSESSMENT: 1. Systemic inflammatory response syndrome with on and off fevers. So far blood and urine culture had been negative. 2. Status post urinary tract infection. 3. Multiple wounds with wound culture growing multidrug resistant organisms, on antibiotics. 4. Severe pancreatitis, slowly resolving. 5. Severe hypocalcemia, Endocrinology follows. 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 7. Pulmonary nodular opacities consistent with metastatic lymphoma, grew out pneumonia. 8. Pancytopenia. PLAN: Patient is clinically and hemodynamically stable, again, with on and off fevers and negative cultures so far. He is being followed by multiple consultants. We are going to repeat chest x- ray. Await for sputum cultures. Dictated By: Felicia Hdz NP /paulette/ /Document#: [id number] DREW
--- NOTE | 2017-01-26 10:00 | RADRPT ---
PROCEDURE: XR Chest. CLINICAL INDICATION: Pneumonia TECHNIQUE: Single AP portable chest. COMPARISON: 01/19/2017 Chest x-ray FINDINGS: The cardiac silhouette is enlarged but stable in size. Little interval change in patchy air space d isease throughout the right upper and lower lung zones. Right lung volume loss. Right PICC line ca theter tip in the cavoatrial junction Atherosclerotic calcification of the aorta. The lungs are niharika ar without pleural effusion or focal consolidation. No pneumothorax. The osseous structures and sof t tissues are unremarkable. IMPRESSION: 1. Stable cardiomegaly and patchy airspace opacity throughout the right upper and lower lung zones c ompatible with pneumonia. No significant interval change. 2. Support devices in stable position. RPTAT:AAJJ Frederic Broussard Physician Date Time Electronically viewed and signed by Physician Diana on 01/26/2017 00:07 VIKTOR/
[2017-01-26] MEDS: SOD CHLORIDE 0.9% 1,000 ML IV SCH (11:24)
--- NOTE | 2017-01-26 12:36 | CONS ---
Date/Time of Note Date/Time of Note DATE: 01/26/17 TIME: 12:35 Consult Date/Type/Reason Admit Date/Time Jan 09, 2017 at 19:08 Initial Consult Date 01/15/17 Type of Consultation: Pulmonary Ordering Provider: YAO RAHMAN Subjective Patient comfortable this morning less abdominal pain. Objective Vital Signs Date Time Temp Pulse Resp B/P Pulse Ox O2 Delivery O2 Flow Rate FiO2 01/26/17 11:06 98.8 119 18 132/65 98 01/26/17 07:57 2.0 01/26/17 07:57 Nasal Cannula 01/25/17 20:59 Intake and Output 01/25/17 01/25/17 01/26/17 15:00 23:00 07:00 Intake Total 2358 ml 1219 ml 300 ml Output Total 2450 ml 1200 ml 900 ml Balance -92 ml 19 ml -600 ml Exam GENERAL: Morbidly obese young gentleman comfortable at rest VITAL SIGNS: per chart NECK: Supple. No JVD or lymphadenopathy. CARDIAC EXAM: S1, S2. No added sounds or murmurs. CHEST: clear bilaterally, No added sounds, rales or wheezes ABDOMEN: Soft, nontender. No guarding or rebound. EXTREMITIES: No cyanosis, clubbing or edema. NEUROLOGIC: Generalized weakness. No focal deficits. Results/Medications Result Diagram: 01/25/17 0500 01/26/17 0708 Results 24 hrs Laboratory Tests Test 01/26/17 07:08 01/26/17 07:18 Sodium Level 127 L Potassium Level 3.8 Chloride Level 93 L Carbon Dioxide Level 27 Anion Gap 11 Blood Urea Nitrogen 3 L Creatinine 0.48 L Glucose Level 95 Calcium Level 8.5 Phosphorus Level 2.8 Magnesium Level 1.5 L Prealbumin 12.9 L Parathyroid Hormone (Intact) Medications Current Medications Docusate Sodium (Colace) 100 mg Q12H PRN PO CONSTIPATION Last administered on 10:46; Admin Dose 100 MG; Start 01/09/17 at 19:30 Magnesium Hydroxide (Milk Of Mag) 30 ml DAILY PRN PO CONSTIPATION; Start at 19:30 Sodium Biphosphate/ Sodium Phosphate (Fleet Enema) 133 ml DAILY PRN [place] CONSTIPATION; Start 01/09/17 at 19:30 Heparin Sodium (Porcine) 5000 unit 5,000 unit Q12 SC Last administered on 09:43; Admin Dose 5,000 UNIT; Start 01/09/17 at 21:00; Status Future Hold Piperacillin Sod/ Tazobactam Sod (Zosyn 3.375gm/ 100 ml (Pmx)) 100 ml @ 200 mls /hr Q6 IVPB Last administered on 01/26/17 11:30; Admin Dose 200 MLS/HR; Start 01/10/17 at 00:00 Nitroglycerin (Nitroglycerin (Sl Tab) 0.4 Mg) 1 tab Q5M PRN SL ANGINA; Start at 19:30 Miscellaneous Information (Pending [facility] Order For Wound Care) This patient aranda... PRN PRN XX WOUND CARE; Start 01/10/17 at 03:30 Ondansetron HCl 4 mg 4 mg Q6 IV Last administered on 01/26/17 11:30; Admin Dose 4 MG; Start 01/10/17 at 15:30 Acetaminophen (Ofirmev 1000mg/ 100ml Iv) 100 ml @ 400 mls/hr Q6 IVPB Last administered on 01/26/17 06:10; Admin Dose 400 MLS/HR; Start 01/10/17 at 16:30 IV Flush (NS 10 ml) 10 ml PRN PRN IV IV PROTOCOL; Start 01/10/17 at 20:30 Prednisone 10 mg 10 mg DAILY PO Last administered on 01/26/17 08:42; Admin Dose 10 MG; Start 01/15/17 at 09:00 Levofloxacin/ Dextrose 150 ml @ 100 mls/hr Q24H IVPB Last administered on 01/25 16:06; Admin Dose 100 MLS/HR; Start 01/18/17 at 16:00 Trimethoprim/ Sulfamethoxazole/ Dextrose (Bactrim/D5W) 525 ml @ 343.333 mls/hr Q8 IVPB Last administered on 01/26/17 07:08; Admin Dose 343.333 MLS/HR; Start 01/19/17 at 13:30 Metoprolol Succinate 50 mg 50 mg QHS PO Last administered on 01/25/17 22:13; Admin Dose 50 MG; Start 01/21/17 at 21:00 Total Parenteral Nutrition 1,000 ml @ 80 mls/hr [id number] IV Last administered on 01/26/17 08:42; Admin Dose 80 MLS/HR; Start 01/21/17 at 16:30 Hydromorphone HCl/ Dextrose (Dilaudid/D5W) 50 ml @ 2 mls/hr TITRATE IV Last administered on 01/25/17 11:52; Admin Dose 2 MLS/HR; Start 01/23/17 at 16:30 Ergocalciferol (Drisdol) 50,000 unit We@09 PO Last administered on 01/25/17 08 :39; Admin Dose 50,000 UNIT; Start 01/25/17 at 09:00 Calcium Carbonate 1.25 gm 1.25 gm BID PO Last administered on 01/26/17 08:42; Admin Dose 1.25 GM; Start 01/24/17 at 21:00 Sodium Chloride (NS) 1,000 ml @ 70 mls/hr [id number] IV Last administered on 01/25 22:47; Admin Dose 70 MLS/HR; Start 01/24/17 at 16:30 Pantoprazole (Protonix Tab) 40 mg DAILY@06 PO Last administered on 01/26/17 06 :11; Admin Dose 40 MG; Start 01/26/17 at 06:00 Hydromorphone HCl (Dilaudid) 1 mg Q2 PRN IV PAIN Last administered on 10:13; Admin Dose 1 MG; Start 01/25/17 at 21:00 Assessment/Plan Chief Complaint/Hosp Course IMP: 1. Severe pancreatitis--decreased abdominal pain today. Pancreatitis appears to be slowly resolving. 2. Severe HypoCa++--2/2 #1 continue endocrinology recommendations 3. Status post UTI 4. Anaplastic B-cell lymphoma 5. RAMU, resolved 6. Pulmonary nodular opacities--c/w metastatic lymphoma 7. Anemia likely multifactorial. 8. Ongoing sinus tachycardia likely combination of anemia, pain, ongoing inflammation. 9. Hyponatremia possible SIADH. RECS: 1. Continue fluids per nephrology, 2. CT abdomen noted. 3. Endocrinology recommendations with potassium replacement, calcium management. 4. Pain control 5. Follow lytes, renal recommendations may need fluid restriction. 6. Surgery recommendations advance diet per surgery recommendations 7. PT evaluation out of bed if tolerated 8. GI recommendations. Discussed with primary team. Continue current care, pending possible transfer to tertiary care center. Problems: BECKA DINH MD[facility] Jan 26, 2017 12:36
--- NOTE | 2017-01-26 13:51 | CONS ---
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 He came into the hospital with abdominal pain but at that time had a low lipase level. At that time his calciums were normal his thyroid function was normal he had on appropriate serum cortisol despite having been on tapering dosages of prednisone as an outpatient. I have contacted [employer] to get the blood test reports. While his serum calcium was 5.3 with a low ionized calcium he had a PTH in the mid 20s. This is an inappropriately low normal PTH in the setting of severe hypocalcemia. This indicates hypo-parathyroidism. The patient informs me there is no prior history of this. Since he has not had neck surgery Problems: (1) Hypovitaminosis D Status: Chronic Comment: He 1,25 dihydroxy vitamin D has been brought up. The 25 hydroxy vitamin D is being corrected now. (2) Abdominal pain Status: Chronic Comment: As per primary team. I am still concerned about insidious cause of this Qualifiers: Abdominal location: generalized Qualified Code: R10.84 - Generalized abdominal pain (3) Lymphoma, anaplastic large cell, abdomen Status: Chronic Comment: As per the hematology consult (4) Hypoparathyroidism, unspecified Status: Acute Comment: Again the PTH level that was sent out initially was low especially given the calcium. On the chance that this was not laboratory air of repeated that today will follow that up. (5) Hypocalcemia Status: Acute Comment: Now corrected Consultation Date/Type/Reason Admit Date/Time Jan 09, 2017 at 19:08 Initial Consult Date 01/15/17 Type of Consultation: Endocrinology Reason for Consultation Hypovitaminosis D; parathyroid hormone insufficiency; hypocalcemia Referring Provider: YAO RAHMAN 24 HR Interval Summary Free Text/Dictation Patient without objective changes or subjective changes Exam/Review of Systems Vital Signs Vitals Vital Signs Date Time Temp Pulse Resp B/P Pulse Ox O2 Delivery O2 Flow Rate FiO2 01/26/17 13:02 122 20 98 Nasal Cannula 2.0 01/26/17 11:06 98.8 132/65 01/25/17 20:59 Intake and Output 01/25/17 01/25/17 01/26/17 15:00 23:00 07:00 Intake Total 2358 ml 1219 ml 300 ml Output Total 2450 ml 1200 ml 900 ml Balance -92 ml 19 ml -600 ml Exam No change Results No changes Result Diagram: 01/25/17 0500 01/26/17 0708 Results 24 hrs Laboratory Tests Test 01/26/17 07:08 01/26/17 07:18 Sodium Level 127 L Potassium Level 3.8 Chloride Level 93 L Carbon Dioxide Level 27 Anion Gap 11 Blood Urea Nitrogen 3 L Creatinine 0.48 L Glucose Level 95 Calcium Level 8.5 Phosphorus Level 2.8 Magnesium Level 1.5 L Prealbumin 12.9 L Parathyroid Hormone (Intact) Medications Medications Current Medications Docusate Sodium (Colace) 100 mg Q12H PRN PO CONSTIPATION Last administered on 10:46; Admin Dose 100 MG; Start 01/09/17 at 19:30 Magnesium Hydroxide (Milk Of Mag) 30 ml DAILY PRN PO CONSTIPATION; Start at 19:30 Sodium Biphosphate/ Sodium Phosphate (Fleet Enema) 133 ml DAILY PRN [place] CONSTIPATION; Start 01/09/17 at 19:30 Heparin Sodium (Porcine) 5000 unit 5,000 unit Q12 SC Last administered on 09:43; Admin Dose 5,000 UNIT; Start 01/09/17 at 21:00; Status Future Hold Piperacillin Sod/ Tazobactam Sod (Zosyn 3.375gm/ 100 ml (Pmx)) 100 ml @ 200 mls /hr Q6 IVPB Last administered on 01/26/17 11:30; Admin Dose 200 MLS/HR; Start 01/10/17 at 00:00 Nitroglycerin (Nitroglycerin (Sl Tab) 0.4 Mg) 1 tab Q5M PRN SL ANGINA; Start at 19:30 [facility]isc[facility] This patient aranda... PRN PRN XX WOUND CARE; Start 01/10/17 at 03:30 Ondansetron HCl 4 mg 4 mg Q6 IV Last administered on 01/26/17 11:30; Admin Dose 4 MG; Start 01/10/17 at 15:30 Acetaminophen (Ofirmev 1000mg/ 100ml Iv) 100 ml @ 400 mls/hr Q6 IVPB Last administered on 01/26/17 12:59; Admin Dose 400 MLS/HR; Start 01/10/17 at 16:30 IV Flush (NS 10 ml) 10 ml PRN PRN IV IV PROTOCOL; Start 01/10/17 at 20:30 Prednisone 10 mg 10 mg DAILY PO Last administered on 01/26/17 08:42; Admin Dose 10 MG; Start 01/15/17 at 09:00 Levofloxacin/ Dextrose 150 ml @ 100 mls/hr Q24H IVPB Last administered on 01/25 16:06; Admin Dose 100 MLS/HR; Start 01/18/17 at 16:00 Trimethoprim/ Sulfamethoxazole/ Dextrose (Bactrim/D5W) 525 ml @ 343.333 mls/hr Q8 IVPB Last administered on 01/26/17 07:08; Admin Dose 343.333 MLS/HR; Start 01/19/17 at 13:30 Metoprolol Succinate 50 mg 50 mg QHS PO Last administered on 01/25/17 22:13; Admin Dose 50 MG; Start 01/21/17 at 21:00 Total Parenteral Nutrition 1,000 ml @ 80 mls/hr [id number] IV Last administered on 01/26/17 08:42; Admin Dose 80 MLS/HR; Start 01/21/17 at 16:30 Hydromorphone HCl/ Dextrose (Dilaudid/D5W) 50 ml @ 2 mls/hr TITRATE IV Last administered on 01/25/17 11:52; Admin Dose 2 MLS/HR; Start 01/23/17 at 16:30 Ergocalciferol (Drisdol) 50,000 unit We@09 PO Last administered on 01/25/17 08 :39; Admin Dose 50,000 UNIT; Start 01/25/17 at 09:00 Calcium Carbonate 1.25 gm 1.25 gm BID PO Last administered on 01/26/17 08:42; Admin Dose 1.25 GM; Start 01/24/17 at 21:00 Sodium Chloride (NS) 1,000 ml @ 70 mls/hr [id number] IV Last administered on 01/25 22:47; Admin Dose 70 MLS/HR; Start 01/24/17 at 16:30 Pantoprazole (Protonix Tab) 40 mg DAILY@06 PO Last administered on 01/26/17 06 :11; Admin Dose 40 MG; Start 01/26/17 at 06:00 Hydromorphone HCl 1 mg 1 mg Q2 PRN IV PAIN Last administered on 01/26/17 12:38 ; Admin Dose 1 MG; Start 01/25/17 at 21:00 Magnesium Sulfate (Magnesium Sulfate 2 Gm/50 ml) 50 ml @ 25 mls/hr ONCE ONCE IVPB ; Start 01/26/17 at 13:30; Stop 01/26/17 at 15:29; Status YOLY BARRERA MD Jan 26, 2017 13:50
[2017-01-26] MEDS ORDERED: MAGNESIUM SULFATE 2 GM/50 ML 50 ML IVPB ONE (14:00)
--- NOTE | 2017-01-26 14:16 | PN ---
Date/Time of Note Date/Time of Note DATE: 01/26/17 TIME: 14:13 Assessment/Plan Lines/Catheters IV Catheter Type (from Nrs): PICC Line [facility] in Place (from Nrs): No Assessment/Plan Assessment/Plan [facility] Progress Note Date of Service: 01/26/2017 Place of service: [facility] ICU Today's Assessment & Plan: Overall stable with many medical issues. Pancreatitis seems controlled and chemically normal. No indication for acute surgical intervention. Discussed with patient and answered all questions. 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 Very difficult situation with somewhat poor prognosis. Fortunately no indication for acute surgical intervention. No evidence of infected necrosis that would require drain placement or surgical necrosectomy of the pancreas. Would be important to try and avoid major interventions in order to not delay life-prolonging chemotherapeutic intervention. With above assessment, I've recommended the followin. Continue aggressive medical management 2. Cont liquid diet until no more pain with oral intake; then may advance slowly 3. Follow GIs recommendations 4. If it would make a difference in management, may consider percutaneous biopsy of segment 6 area of abnormality in the liver 5. Multidisciplinary tumor board presentation and discussions 6. Consideration for clinical trials once improved medically 7. LFT's, amylase and lipase checks tomorrow with labs Thank you very much for having me involved in the care of this very pleasant patient and wonderful family. If you have any questions, please feel free to contact me at [phone]. Nature of presenting problem: High severity Please note that, given the extensive number of diagnoses or management options , the extensive amount and/or complexity of data needed to be reviewed, and high risk of complications and/or morbidity or mortality, this qualifies as high complexity type of decision-making. Disclaimer: Inadvertent spelling and grammatical errors are likely due to EHR/ dictation software use and do not reflect on the quality of delivered patient care. Also, please note that the electronic time recorded on this node does not necessarily reflect the actual time of the visit. 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 Status post CT-guided left flank subcutaneous nodule biopsy [facility] 01/12/2017. Comorbidities: 1. BMI 40.7 2. Small right pleural effusion with atelectasis and right lung base pneumonia. 3. Large B cell anaplastic lymphoma; status post chemo 1 month prior to presentation 4. Sepsis 5. Hyponatremia 6. Hypokalemia 7. Acute renal injury Subjective: No major events or complaints; reported no major new abd pain and under control with medications; no significant reported nausea or vomiting and no major diarrhea; no sob or cp; + flatus; - BM; minimal to no activity. Minor pain with liquid intake. Objective: Vitals: See below I's & O's: See below Exam: GENERAL: On exam, the patient was lying in bed and appeared to be comfortable and in no acute distress. Diaphoretic. ABDOMEN: Soft, minimal to no tenderness and nondistended. There are no peritoneal signs or guarding. SKIN: Skin appears to be pink and feels warm to touch. NEUROLOGIC: Patient is awake, alert, and follows commands appropriately. Labs: See below Exam/Review of Systems Vital Signs Vitals Vital Signs Date Time Temp Pulse Resp B/P Pulse Ox O2 Delivery O2 Flow Rate FiO2 01/26/17 13:02 122 20 98 Nasal Cannula 2.0 01/26/17 11:06 98.8 132/65 01/25/17 20:59 Intake and Output 01/25/17 01/25/17 01/26/17 15:00 23:00 07:00 Intake Total 2358 ml 1219 ml 300 ml Output Total 2450 ml 1200 ml 900 ml Balance -92 ml 19 ml -600 ml Results Result Diagram: 01/25/17 0500 01/26/17 0708 LENKA HERNANDEZ M.D. Jan 26, 2017 14:15
--- NOTE | 2017-01-26 14:53 | CONS ---
Date/Time of Note Date/Time of Note DATE: 01/26/17 TIME: 14:49 Assessment/Plan Assessment/Plan Chief Complaint/Hosp Course SUBJECTIVE DATA: No acute changes overnight. Tx to tele, awake, looks comfortable, tolerates diet, abd pain improving, no fevers MICROBIOLOGY: Blood cultures remain negative. Urine culture negative. Sputum culture growing gram-negative rods. Right lower extremity wound culture grew Citrobacter Freundii , Enterococcus species, Corynebacterium species, and Stenotrophomonas maltophilia. Sputum cx + MDR Kleb INDWELLINGS: PICC line. ANTIMICROBIALS: Antimicrobials: Bactrim, Levaquin, Zosyn. PHYSICAL EXAMINATION: This is an obese, chronically ill- appearing, middle aged man who is awake, in no distress. HEENT: Head atraumatic, normocephalic. Sclerae anicteric. Buccal mucosa dry. NECK: Obese. CHEST: Rise symmetrical. Breath sounds diminished at the bases. HEART: S1, S2. Tachycardic, regular. ABDOMEN: Obese, soft, bowel sounds present. EXTREMITIES: Without cyanosis, bilateral edema with multiple unstageable wounds. SKIN: Generalized edema with multiple necrotic wounds. ASSESSMENT: 1. Systemic inflammatory response syndrome with on and off fevers. So far blood and urine culture had been negative. 2. Status post urinary tract infection. 3. Multiple necrotic wounds with wound culture growing multidrug resistant organisms, on antibiotics. 4. Severe pancreatitis, slowly resolving. 5. Severe hypocalcemia, Endocrinology follows. 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 7. Pulmonary nodular opacities consistent with metastatic lymphoma, grew out pneumonia. 8. Pancytopenia. PLAN: Patient is clinically and hemodynamically stable. He is being followed by multiple consultants. Will add Colistin INH for MDRO growing in his sputum , continue abx DW staff/pt Problems: Consultation Date/Type/Reason Admit Date/Time Jan 09, 2017 at 19:08 Initial Consult Date 01/15/17 Type of Consultation: ID Referring Provider: YAO RAHMAN Exam/Review of Systems Vital Signs Vitals Vital Signs Date Time Temp Pulse Resp B/P Pulse Ox O2 Delivery O2 Flow Rate FiO2 01/26/17 13:02 122 20 98 Nasal Cannula 2.0 01/26/17 11:06 98.8 132/65 01/25/17 20:59 Intake and Output 01/25/17 01/25/17 01/26/17 15:00 23:00 07:00 Intake Total 2358 ml 1219 ml 300 ml Output Total 2450 ml 1200 ml 900 ml Balance -92 ml 19 ml -600 ml Results Result Diagram: 01/25/17 0500 01/26/17 0708 Results 24 hrs Laboratory Tests Test 01/26/17 07:08 01/26/17 07:18 Sodium Level 127 L Potassium Level 3.8 Chloride Level 93 L Carbon Dioxide Level 27 Anion Gap 11 Blood Urea Nitrogen 3 L Creatinine 0.48 L Glucose Level 95 Calcium Level 8.5 Phosphorus Level 2.8 Magnesium Level 1.5 L Prealbumin 12.9 L Parathyroid Hormone (Intact) Medications Medications Current Medications Docusate Sodium (Colace) 100 mg Q12H PRN PO CONSTIPATION Last administered on 10:46; Admin Dose 100 MG; Start 01/09/17 at 19:30 Magnesium Hydroxide (Milk Of Mag) 30 ml DAILY PRN PO CONSTIPATION; Start at 19:30 Sodium Biphosphate/ Sodium Phosphate (Fleet Enema) 133 ml DAILY PRN [place] CONSTIPATION; Start 01/09/17 at 19:30 Heparin Sodium (Porcine) 5000 unit 5,000 unit Q12 SC Last administered on 09:43; Admin Dose 5,000 UNIT; Start 01/09/17 at 21:00; Status Future Hold Piperacillin Sod/ Tazobactam Sod (Zosyn 3.375gm/ 100 ml (Pmx)) 100 ml @ 200 mls /hr Q6 IVPB Last administered on 01/26/17 11:30; Admin Dose 200 MLS/HR; Start 01/10/17 at 00:00 Nitroglycerin (Nitroglycerin (Sl Tab) 0.4 Mg) 1 tab Q5M PRN SL ANGINA; Start at 19:30 [facility] This patient aranda... PRN PRN XX WOUND CARE; Start 01/10/17 at 03:30 Ondansetron HCl 4 mg 4 mg Q6 IV Last administered on 01/26/17 11:30; Admin Dose 4 MG; Start 01/10/17 at 15:30 Acetaminophen (Ofirmev 1000mg/ 100ml Iv) 100 ml @ 400 mls/hr Q6 IVPB Last administered on 01/26/17 12:59; Admin Dose 400 MLS/HR; Start 01/10/17 at 16:30 IV Flush (NS 10 ml) 10 ml PRN PRN IV IV PROTOCOL; Start 01/10/17 at 20:30 Prednisone 10 mg 10 mg DAILY PO Last administered on 01/26/17 08:42; Admin Dose 10 MG; Start 01/15/17 at 09:00 Levofloxacin/ Dextrose 150 ml @ 100 mls/hr Q24H IVPB Last administered on 01/25 16:06; Admin Dose 100 MLS/HR; Start 01/18/17 at 16:00 Trimethoprim/ Sulfamethoxazole/ Dextrose (Bactrim/D5W) 525 ml @ 343.333 mls/hr Q8 IVPB Last administered on 01/26/17 14:11; Admin Dose 343.333 MLS/HR; Start 01/19/17 at 13:30 Metoprolol Succinate 50 mg 50 mg QHS PO Last administered on 01/25/17 22:13; Admin Dose 50 MG; Start 01/21/17 at 21:00 Total Parenteral Nutrition 1,000 ml @ 80 mls/hr [id number] IV Last administered on 01/26/17 08:42; Admin Dose 80 MLS/HR; Start 01/21/17 at 16:30 Hydromorphone HCl/ Dextrose (Dilaudid/D5W) 50 ml @ 2 mls/hr TITRATE IV Last administered on 01/25/17 11:52; Admin Dose 2 MLS/HR; Start 01/23/17 at 16:30 Ergocalciferol (Drisdol) 50,000 unit We@09 PO Last administered on 01/25/17 08 :39; Admin Dose 50,000 UNIT; Start 01/25/17 at 09:00 Calcium Carbonate 1.25 gm 1.25 gm BID PO Last administered on 01/26/17 08:42; Admin Dose 1.25 GM; Start 01/24/17 at 21:00 Sodium Chloride (NS) 1,000 ml @ 70 mls/hr [id number] IV Last administered on 01/25 22:47; Admin Dose 70 MLS/HR; Start 01/24/17 at 16:30 Pantoprazole (Protonix Tab) 40 mg DAILY@06 PO Last administered on 01/26/17 06 :11; Admin Dose 40 MG; Start 01/26/17 at 06:00 Hydromorphone HCl 1 mg 1 mg Q2 PRN IV PAIN Last administered on 01/26/17 12:38 ; Admin Dose 1 MG; Start 01/25/17 at 21:00 Magnesium Sulfate (Magnesium Sulfate 2 Gm/50 ml) 50 ml @ 25 mls/hr ONCE ONCE IVPB ; Start 01/26/17 at 14:00; Stop 01/26/17 at 15:59 DEENA LOCO NP Jan 26, 2017 14:53
--- NOTE | 2017-01-26 15:48 | PN ---
Date/Time of Note Date/Time of Note DATE: 01/26/17 TIME: 15:45 Assessment/Plan VTE Prophylaxis VTE Prophylaxis Intervention: SCD's Lines/Catheters IV Catheter Type (from Nrsg): PICC Line Central line still needed: Yes Urinary Cath still in place: No Assessment/Plan Assessment/Plan Assessment/Plan * Anemia * Acute pancreatitis, etiology unclear * Mild abnormality liver function tests with no evidence of biliary pathology * Anaplastic B-cell lymphoma/aggressive behavior * Sepsis/pneumonia/improved Plan: * continue present management * pain control * Monitor hemoglobin and hematocrit daily * Continue monitor lipase and abdominal pain * case discussed with Dr Hewitt Subjective 24 Hr Interval Summary Free Text/Dictation * Course reviewed with RN * patient seen and examined * tolerating clear liquid no vomiting * no untoward events overnight Exam/Review of Systems Vital Signs Vitals Vital Signs Date Time Temp Pulse Resp B/P Pulse Ox O2 Delivery O2 Flow Rate FiO2 01/26/17 15:14 98.3 111 16 126/64 97 01/26/17 13:02 Nasal Cannula 2.0 01/25/17 20:59 Intake and Output 01/25/17 01/25/17 01/26/17 15:00 23:00 07:00 Intake Total 2358 ml 1219 ml 300 ml Output Total 2450 ml 1200 ml 900 ml Balance -92 ml 19 ml -600 ml Exam Constitutional: alert, frail Neck: non-tender, supple Respiratory: diminished breath sounds, normal air movement Cardiovascular: nl pulses, regular rate and rhythm Gastrointestinal: distended, soft, tender, No rebound or guarding Musculoskeletal: muscle weakness Extremities: edema, pitting pedal edema Neurological: nl mental status, nl speech Skin: nl turgor, No rash or lesions Lymph: nl lymph nodes Results Result Diagram: 01/25/17 0500 01/26/17 0708 Results 24 hrs Laboratory Tests Test 01/26/17 07:08 01/26/17 07:18 Sodium Level 127 L Potassium Level 3.8 Chloride Level 93 L Carbon Dioxide Level 27 Anion Gap 11 Blood Urea Nitrogen 3 L Creatinine 0.48 L Glucose Level 95 Calcium Level 8.5 Phosphorus Level 2.8 Magnesium Level 1.5 L Prealbumin 12.9 L Parathyroid Hormone (Intact) Medications Medications Current Medications Docusate Sodium (Colace) 100 mg Q12H PRN PO CONSTIPATION Last administered on 10:46; Admin Dose 100 MG; Start 01/09/17 at 19:30 Magnesium Hydroxide (Milk Of Mag) 30 ml DAILY PRN PO CONSTIPATION; Start at 19:30 Sodium Biphosphate/ Sodium Phosphate (Fleet Enema) 133 ml DAILY PRN [place] CONSTIPATION; Start 01/09/17 at 19:30 Heparin Sodium (Porcine) 5000 unit 5,000 unit Q12 SC Last administered on 09:43; Admin Dose 5,000 UNIT; Start 01/09/17 at 21:00; Status Future Hold Piperacillin Sod/ Tazobactam Sod (Zosyn 3.375gm/ 100 ml (Pmx)) 100 ml @ 200 mls /hr Q6 IVPB Last administered on 01/26/17 11:30; Admin Dose 200 MLS/HR; Start 01/10/17 at 00:00 Nitroglycerin (Nitroglycerin (Sl Tab) 0.4 Mg) 1 tab Q5M PRN SL ANGINA; Start at 19:30 Miscellaneous Information (Pending [facility] Order For Wound Care) This patient aranda... PRN PRN XX WOUND CARE; Start 01/10/17 at 03:30 Ondansetron HCl 4 mg 4 mg Q6 IV Last administered on 01/26/17 11:30; Admin Dose 4 MG; Start 01/10/17 at 15:30 Acetaminophen (Ofirmev 1000mg/ 100ml Iv) 100 ml @ 400 mls/hr Q6 IVPB Last administered on 01/26/17 12:59; Admin Dose 400 MLS/HR; Start 01/10/17 at 16:30 IV Flush (NS 10 ml) 10 ml PRN PRN IV IV PROTOCOL; Start 01/10/17 at 20:30 Prednisone 10 mg 10 mg DAILY PO Last administered on 01/26/17 08:42; Admin Dose 10 MG; Start 01/15/17 at 09:00 Levofloxacin/ Dextrose 150 ml @ 100 mls/hr Q24H IVPB Last administered on 01/25 16:06; Admin Dose 100 MLS/HR; Start 01/18/17 at 16:00 Trimethoprim/ Sulfamethoxazole/ Dextrose (Bactrim/D5W) 525 ml @ 343.333 mls/hr Q8 IVPB Last administered on 01/26/17 14:11; Admin Dose 343.333 MLS/HR; Start 01/19/17 at 13:30 Metoprolol Succinate 50 mg 50 mg QHS PO Last administered on 01/25/17 22:13; Admin Dose 50 MG; Start 01/21/17 at 21:00 Total Parenteral Nutrition 1,000 ml @ 80 mls/hr [id number] IV Last administered on 01/26/17 08:42; Admin Dose 80 MLS/HR; Start 01/21/17 at 16:30 Hydromorphone HCl/ Dextrose (Dilaudid/D5W) 50 ml @ 2 mls/hr TITRATE IV Last administered on 01/25/17 11:52; Admin Dose 2 MLS/HR; Start 01/23/17 at 16:30 Ergocalciferol (Drisdol) 50,000 unit We@09 PO Last administered on 01/25/17 08 :39; Admin Dose 50,000 UNIT; Start 01/25/17 at 09:00 Calcium Carbonate 1.25 gm 1.25 gm BID PO Last administered on 01/26/17 08:42; Admin Dose 1.25 GM; Start 01/24/17 at 21:00 Sodium Chloride (NS) 1,000 ml @ 70 mls/hr [id number] IV Last administered on 01/25 22:47; Admin Dose 70 MLS/HR; Start 01/24/17 at 16:30 Pantoprazole (Protonix Tab) 40 mg DAILY@06 PO Last administered on 01/26/17 06 :11; Admin Dose 40 MG; Start 01/26/17 at 06:00 Hydromorphone HCl 1 mg 1 mg Q2 PRN IV PAIN Last administered on 01/26/17 14:54 ; Admin Dose 1 MG; Start 01/25/17 at 21:00 Magnesium Sulfate (Magnesium Sulfate 2 Gm/50 ml) 50 ml @ 25 mls/hr ONCE ONCE IVPB Last administered on 01/26/17 14:55; Admin Dose 25 MLS/HR; Start at 14:00; Stop 01/26/17 at 15:59 SELENA ROY NP Jan 26, 2017 15:48
[2017-01-26] MEDS: LEVOFLOXACIN 750MG/D5W (PMX) 150 ML IVPB SCH (17:21)
--- NOTE | 2017-01-26 19:01 | PN ---
Date/Time of Note Date/Time of Note DATE: 01/26/17 TIME: 18:59 Assessment/Plan VTE Prophylaxis VTE Prophylaxis Intervention: other Lines/Catheters IV Catheter Type (from Nrsg): PICC Line Central line still needed: Yes Urinary Cath still in place: No Assessment/Plan Chief Complaint/Hosp Course PANCREATITIS better HYPOCALCEMIA better HYPOPHOSPHATEMIA better vit d deficiency OBESITY SIRS/sepsis lymphoma sirs obesity pancytopenia multiple decubitus hypomagnesemia sepsis PLAN TPN LYTE REPLACEMENT clear liq ambulate pain meds per oncology Problems: Subjective 24 Hr Interval Summary Respiratory: No shortness of breath Cardiovascular: No chest pain Gastrointestinal: no complaints Genitourinary: no complaints Exam/Review of Systems Vital Signs Vitals Vital Signs Date Time Temp Pulse Resp B/P Pulse Ox O2 Delivery O2 Flow Rate FiO2 01/26/17 16:00 103 01/26/17 15:14 98.3 16 126/64 97 01/26/17 13:02 Nasal Cannula 2.0 01/25/17 20:59 Intake and Output 01/25/17 01/25/17 01/26/17 15:00 23:00 07:00 Intake Total 2358 ml 1219 ml 300 ml Output Total 2450 ml 1200 ml 900 ml Balance -92 ml 19 ml -600 ml Exam Neck: supple Respiratory: clear to auscultation Cardiovascular: regular rate and rhythm Gastrointestinal: bowel sounds (+), soft Musculoskeletal: nl extremities to inspection Results Result Diagram: 01/25/17 0500 01/26/17 0708 Results 24 hrs Laboratory Tests Test 01/26/17 07:08 01/26/17 07:18 Sodium Level 127 L Potassium Level 3.8 Chloride Level 93 L Carbon Dioxide Level 27 Anion Gap 11 Blood Urea Nitrogen 3 L Creatinine 0.48 L Glucose Level 95 Calcium Level 8.5 Phosphorus Level 2.8 Magnesium Level 1.5 L Prealbumin 12.9 L Parathyroid Hormone (Intact) Medications Medications Current Medications Docusate Sodium (Colace) 100 mg Q12H PRN PO CONSTIPATION Last administered on t 10:46; Admin Dose 100 MG; Start 01/09/17 at 19:30 Magnesium Hydroxide (Milk Of Mag) 30 ml DAILY PRN PO CONSTIPATION; Start at 19:30 Sodium Biphosphate/ Sodium Phosphate (Fleet Enema) 133 ml DAILY PRN [place] CONSTIPATION; Start 01/09/17 at 19:30 Heparin Sodium (Porcine) 5000 unit 5,000 unit Q12 SC Last administered on 09:43; Admin Dose 5,000 UNIT; Start 01/09/17 at 21:00; Status Future Hold Piperacillin Sod/ Tazobactam Sod (Zosyn 3.375gm/ 100 ml (Pmx)) 100 ml @ 200 mls /hr Q6 IVPB Last administered on 01/26/17 17:21; Admin Dose 200 MLS/HR; Start 01/10/17 at 00:00 Nitroglycerin (Nitroglycerin (Sl Tab) 0.4 Mg) 1 tab Q5M PRN SL ANGINA; Start at 19:30 Miscellaneous Information (Pending [facility]yl Order For Wound Care) This patient aranda... PRN PRN XX WOUND CARE; Start 01/10/17 at 03:30 Ondansetron HCl 4 mg 4 mg Q6 IV Last administered on 01/26/17 17:21; Admin Dose 4 MG; Start 01/10/17 at 15:30 Acetaminophen (Ofirmev 1000mg/ 100ml Iv) 100 ml @ 400 mls/hr Q6 IVPB Last administered on 01/26/17 17:21; Admin Dose 400 MLS/HR; Start 01/10/17 at 16:30 IV Flush (NS 10 ml) 10 ml PRN PRN IV IV PROTOCOL; Start 01/10/17 at 20:30 Prednisone 10 mg 10 mg DAILY PO Last administered on 01/26/17 08:42; Admin Dose 10 MG; Start 01/15/17 at 09:00 Levofloxacin/ Dextrose 150 ml @ 100 mls/hr Q24H IVPB Last administered on 01/26 17:21; Admin Dose 100 MLS/HR; Start 01/18/17 at 16:00 Trimethoprim/ Sulfamethoxazole/ Dextrose (Bactrim/D5W) 525 ml @ 343.333 mls/hr Q8 IVPB Last administered on 01/26/17 14:11; Admin Dose 343.333 MLS/HR; Start 01/19/17 at 13:30 Metoprolol Succinate 50 mg 50 mg QHS PO Last administered on 01/25/17 22:13; Admin Dose 50 MG; Start 01/21/17 at 21:00 Total Parenteral Nutrition 1,000 ml @ 80 mls/hr [id number] IV Last administered on 01/26/17 08:42; Admin Dose 80 MLS/HR; Start 01/21/17 at 16:30 Hydromorphone HCl/ Dextrose (Dilaudid/D5W) 50 ml @ 2 mls/hr TITRATE IV Last administered on 01/25/17 11:52; Admin Dose 2 MLS/HR; Start 01/23/17 at 16:30 Ergocalciferol (Drisdol) 50,000 unit We@09 PO Last administered on 01/25/17 08 :39; Admin Dose 50,000 UNIT; Start 01/25/17 at 09:00 Calcium Carbonate 1.25 gm 1.25 gm BID PO Last administered on 01/26/17 08:42; Admin Dose 1.25 GM; Start 01/24/17 at 21:00 Sodium Chloride (NS) 1,000 ml @ 70 mls/hr [id number] IV Last administered on 01/25 22:47; Admin Dose 70 MLS/HR; Start 01/24/17 at 16:30 Pantoprazole (Protonix Tab) 40 mg DAILY@06 PO Last administered on 01/26/17 06 :11; Admin Dose 40 MG; Start 01/26/17 at 06:00 Hydromorphone HCl (Dilaudid) 1 mg Q2 PRN IV PAIN Last administered on 17:19; Admin Dose 1 MG; Start 01/25/17 at 21:00 TAWNY CELIS MD Jan 26, 2017 19:01
[2017-01-26] MEDS: HYDROmorphONE 50 MG in DEXTROSE 5% 45 ML IV SCH (19:09)
[2017-01-26] MEDS: COLISTIMETHATE (25 MG/ML INHAL SYG) NEB SCH (19:32)
[2017-01-26] MEDS: METOPROLOL (XL) 25 MG TAB PO SCH (20:03)
--- NOTE | 2017-01-26 22:04 | CONS ---
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 His last chemo was a month ago and hadn't had since due to experiencing similar presenting symptoms. record from pt's oncologist Kain Wisdom - Kenji Left flank mass, CT-guided core needle biopsies with touch imprints: Completely necrotic tissue, insufficient for pathologic evaluation. PER PT REPORT- reportedly scheduled for change in therapy due to what appears to be lack of adequate response LEUKOPENIA IN PT WITH HNL ON CHEMO AND WITH SEPTIC PICTURE MONITOR BLOOD COUNT CLOSELY POST NEUPOGEN WBC- FLUCTUATING , NOT IN NEUTROPENIA LEVEL AT PRESENT PANCYTOPENIA POST CHEMO CONT TO MONITOR PRBC NEEDED Sepsis 2/2 PNA - abx, IVF - f/u culture results - ID pancreatitis. Abd Pain with N/V: 2/2 known lymphoma - pain mgmt - Anti-emetics Hyponatremia and Hypokalemia: 2/2 vomiting - NS IVF - replete K+ as needed Presumed RAMU: likely pre-renal 2/2 vomiting - cont IVF for now Problems: Consultation Date/Type/Reason Admit Date/Time Jan 09, 2017 at 19:08 Initial Consult Date 01/10/17 Type of Consultation: [facility] Referring Provider: YAO RAHMAN 24 HR Interval Summary Free Text/Dictation ALL NOTED Exam/Review of Systems Vital Signs Vitals Vital Signs Date Time Temp Pulse Resp B/P Pulse Ox O2 Delivery O2 Flow Rate FiO2 01/26/17 20:23 92 01/26/17 20:10 97.8 18 122/57 96 01/26/17 19:34 2.0 01/26/17 19:34 Nasal Cannula 01/25/17 20:59 Intake and Output 01/25/17 01/25/17 01/26/17 15:00 23:00 07:00 Intake Total 2358 ml 1219 ml 300 ml Output Total 2450 ml 1200 ml 900 ml Balance -92 ml 19 ml -600 ml Exam This is an obese, chronically ill- appearing, middle aged man who is awake, in no distress. HEENT: Head atraumatic, normocephalic. Sclerae anicteric. Buccal mucosa dry. NECK: Obese. CHEST: Rise symmetrical. Breath sounds diminished at the bases. HEART: S1, S2. Tachycardic, regular. ABDOMEN: Obese, soft, bowel sounds present. EXTREMITIES: Without cyanosis, bilateral edema with multiple unstageable wounds. SKIN: Generalized edema with multiple necrotic wounds. Results Result Diagram: 01/25/17 0500 01/26/17 0708 Results 24 hrs Laboratory Tests Test 01/26/17 07:08 01/26/17 07:18 Sodium Level 127 L Potassium Level 3.8 Chloride Level 93 L Carbon Dioxide Level 27 Anion Gap 11 Blood Urea Nitrogen 3 L Creatinine 0.48 L Glucose Level 95 Calcium Level 8.5 Phosphorus Level 2.8 Magnesium Level 1.5 L Prealbumin 12.9 L Parathyroid Hormone (Intact) Medications Medications Current Medications Docusate Sodium (Colace) 100 mg Q12H PRN PO CONSTIPATION Last administered on 10:46; Admin Dose 100 MG; Start 01/09/17 at 19:30 Magnesium Hydroxide (Milk Of Mag) 30 ml DAILY PRN PO CONSTIPATION; Start at 19:30 Sodium Biphosphate/ Sodium Phosphate (Fleet Enema) 133 ml DAILY PRN [place] CONSTIPATION; Start 01/09/17 at 19:30 Heparin Sodium (Porcine) 5000 unit 5,000 unit Q12 SC Last administered on 09:43; Admin Dose 5,000 UNIT; Start 01/09/17 at 21:00; Status Future Hold Piperacillin Sod/ Tazobactam Sod (Zosyn 3.375gm/ 100 ml (Pmx)) 100 ml @ 200 mls /hr Q6 IVPB Last administered on 01/26/17 17:21; Admin Dose 200 MLS/HR; Start 01/10/17 at 00:00 Nitroglycerin (Nitroglycerin (Sl Tab) 0.4 Mg) 1 tab Q5M PRN SL ANGINA; Start at 19:30 Miscellaneous Information (Pending [facility] Order For Wound Care) This patient aranda... PRN PRN XX WOUND CARE; Start 01/10/17 at 03:30 Ondansetron HCl 4 mg 4 mg Q6 IV Last administered on 01/26/17 17:21; Admin Dose 4 MG; Start 01/10/17 at 15:30 Acetaminophen (Ofirmev 1000mg/ 100ml Iv) 100 ml @ 400 mls/hr Q6 IVPB Last administered on 01/26/17 17:21; Admin Dose 400 MLS/HR; Start 01/10/17 at 16:30 IV Flush (NS 10 ml) 10 ml PRN PRN IV IV PROTOCOL; Start 01/10/17 at 20:30 Prednisone 10 mg 10 mg DAILY PO Last administered on 01/26/17 08:42; Admin Dose 10 MG; Start 01/15/17 at 09:00 Levofloxacin/ Dextrose 150 ml @ 100 mls/hr Q24H IVPB Last administered on 01/26 17:21; Admin Dose 100 MLS/HR; Start 01/18/17 at 16:00 Trimethoprim/ Sulfamethoxazole/ Dextrose (Bactrim/D5W) 525 ml @ 343.333 mls/hr Q8 IVPB Last administered on 01/26/17 14:11; Admin Dose 343.333 MLS/HR; Start 01/19/17 at 13:30 Metoprolol Succinate 50 mg 50 mg QHS PO Last administered on 01/26/17 20:03; Admin Dose 50 MG; Start 01/21/17 at 21:00 Total Parenteral Nutrition 1,000 ml @ 80 mls/hr [id number] IV Last administered on 01/26/17 08:42; Admin Dose 80 MLS/HR; Start 01/21/17 at 16:30 Hydromorphone HCl/ Dextrose (Dilaudid/D5W) 50 ml @ 2 mls/hr TITRATE IV Last administered on 01/26/17 19:09; Admin Dose 2 MLS/HR; Start 01/23/17 at 16:30 Ergocalciferol (Drisdol) 50,000 unit We@09 PO Last administered on 01/25/17 08 :39; Admin Dose 50,000 UNIT; Start 01/25/17 at 09:00 Calcium Carbonate 1.25 gm 1.25 gm BID PO Last administered on 01/26/17 20:00; Admin Dose 1.25 GM; Start 01/24/17 at 21:00 Sodium Chloride (NS) 1,000 ml @ 40 mls/hr Q24H IV Last administered on 22:47; Admin Dose 70 MLS/HR; Start 01/24/17 at 16:30 Pantoprazole (Protonix Tab) 40 mg DAILY@06 PO Last administered on 01/26/17 06 :11; Admin Dose 40 MG; Start 01/26/17 at 06:00 Hydromorphone HCl (Dilaudid) 1 mg Q2 PRN IV PAIN Last administered on 20:00; Admin Dose 1 MG; Start 01/25/17 at 21:00 Furosemide (Lasix) 20 mg DAILY PO ; Start 01/27/17 at 09:00; Stop 01/29/17 at 09 :00 MOIRA BIRMINGHAM MD Jan 26, 2017 22:03
[2017-01-27] VITALS (12 sets, daily range): BP systolic 103–126; BP diastolic 53–65; PULSE 91–106; RESP 18–19
[2017-01-27] MEDS: HYDROmorphONE 1 MG/ML SYG IV PRN ×8 (00:17→23:49)
[2017-01-27] MEDS: PIPER-TAZO 3.375 GM IV (PMX) 100 ML IVPB SCH ×5 (00:22→23:48)
[2017-01-27] MEDS: ONDANSETRON 4 MG INJ IV SCH ×5 (00:22→23:48)
[2017-01-27] MEDS: ACETAMINOPHEN 1000MG/100ML IV 100 ML IVPB SCH ×5 (00:22→23:48)
[2017-01-27] MEDS: IPRATROPIUM (NEB) 0.5 MG/2.5 ML AMP HHN SCH ×4 (01:27→19:50)
[2017-01-27] MEDS: LEVALBUTEROL (NEB) 0.63 MG/3 ML AMP HHN SCH ×4 (01:27→19:51)
[2017-01-27] MEDS: PANTOPRAZOLE (EC) 40 MG TAB PO SCH (05:19)
--- NOTE | 2017-01-27 06:21 | CONS ---
Date/Time of Note Date/Time of Note DATE: 01/27/17 TIME: 06:19 Assessment/Plan Assessment/Plan Additional Assessment/Plan Patient has been moved out of the intensive care unit and is doing better. His pain is under control with Dilaudid 2 mg/h and IV push as needed. Sepsis syndrome T-cell lymphoma Respiratory failure Fluid and electrolyte abnormalities Hypocalcemia Obesity Consultation Date/Type/Reason Admit Date/Time Jan 09, 2017 at 19:08 Initial Consult Date 01/10/17 Type of Consultation: Pain managed Referring Provider: YAO RAHMAN Exam/Review of Systems Vital Signs Vitals Vital Signs Date Time Temp Pulse Resp B/P Pulse Ox O2 Delivery O2 Flow Rate FiO2 01/27/17 04:16 106 01/27/17 03:59 98.6 18 126/55 98 01/27/17 01:27 Nasal Cannula 2.0 01/25/17 20:59 Intake and Output 01/26/17 01/26/17 01/27/17 15:00 23:00 07:00 Intake Total 700 ml 2799 ml 200 ml Output Total 1900 ml Balance 700 ml 899 ml 200 ml Exam Neurological: [employer] II-XII intact, nl mental status, nl speech, nl strength Results Result Diagram: 01/25/17 0500 01/26/17 0708 Results 24 hrs Laboratory Tests Test 01/26/17 07:08 01/26/17 07:18 Sodium Level 127 L Potassium Level 3.8 Chloride Level 93 L Carbon Dioxide Level 27 Anion Gap 11 Blood Urea Nitrogen 3 L Creatinine 0.48 L Glucose Level 95 Calcium Level 8.5 Phosphorus Level 2.8 Magnesium Level 1.5 L Prealbumin 12.9 L Parathyroid Hormone (Intact) Medications Medications Current Medications Docusate Sodium (Colace) 100 mg Q12H PRN PO CONSTIPATION Last administered on 10:46; Admin Dose 100 MG; Start 01/09/17 at 19:30 Magnesium Hydroxide (Milk Of Mag) 30 ml DAILY PRN PO CONSTIPATION; Start at 19:30 Sodium Biphosphate/ Sodium Phosphate (Fleet Enema) 133 ml DAILY PRN [place] CONSTIPATION; Start 01/09/17 at 19:30 Heparin Sodium (Porcine) 5000 unit 5,000 unit Q12 SC Last administered on 09:43; Admin Dose 5,000 UNIT; Start 01/09/17 at 21:00; Status Future Hold Piperacillin Sod/ Tazobactam Sod (Zosyn 3.375gm/ 100 ml (Pmx)) 100 ml @ 200 mls /hr Q6 IVPB Last administered on 01/27/17 05:19; Admin Dose 200 MLS/HR; Start 01/10/17 at 00:00 Nitroglycerin (Nitroglycerin (Sl Tab) 0.4 Mg) 1 tab Q5M PRN SL ANGINA; Start at 19:30 Miscellaneous Information (Pending Santyl Order For Wound Care) This patient aranda... PRN PRN XX WOUND CARE; Start 01/10/17 at 03:30 Ondansetron HCl 4 mg 4 mg Q6 IV Last administered on 01/27/17 05:19; Admin Dose 4 MG; Start 01/10/17 at 15:30 Acetaminophen (Ofirmev 1000mg/ 100ml Iv) 100 ml @ 400 mls/hr Q6 IVPB Last administered on 01/27/17 05:19; Admin Dose 400 MLS/HR; Start 01/10/17 at 16:30 IV Flush (NS 10 ml) 10 ml PRN PRN IV IV PROTOCOL; Start 01/10/17 at 20:30 Prednisone 10 mg 10 mg DAILY PO Last administered on 01/26/17 08:42; Admin Dose 10 MG; Start 01/15/17 at 09:00 Levofloxacin/ Dextrose 150 ml @ 100 mls/hr Q24H IVPB Last administered on 01/26 17:21; Admin Dose 100 MLS/HR; Start 01/18/17 at 16:00 Trimethoprim/ Sulfamethoxazole/ Dextrose (Bactrim/D5W) 525 ml @ 343.333 mls/hr Q8 IVPB Last administered on 01/26/17 22:42; Admin Dose 343.333 MLS/HR; Start 01/19/17 at 13:30 Metoprolol Succinate 50 mg 50 mg QHS PO Last administered on 01/26/17 20:03; Admin Dose 50 MG; Start 01/21/17 at 21:00 Total Parenteral Nutrition 1,000 ml @ 80 mls/hr [id number] IV Last administered on 01/26/17 22:42; Admin Dose 80 MLS/HR; Start 01/21/17 at 16:30 Hydromorphone HCl/ Dextrose (Dilaudid/D5W) 50 ml @ 2 mls/hr TITRATE IV Last administered on 01/26/17 19:09; Admin Dose 2 MLS/HR; Start 01/23/17 at 16:30 Ergocalciferol (Drisdol) 50,000 unit We@09 PO Last administered on 01/25/17 08 :39; Admin Dose 50,000 UNIT; Start 01/25/17 at 09:00 Calcium Carbonate 1.25 gm 1.25 gm BID PO Last administered on 01/26/17 20:00; Admin Dose 1.25 GM; Start 01/24/17 at 21:00 Sodium Chloride (NS) 1,000 ml @ 40 mls/hr Q24H IV Last administered on 22:47; Admin Dose 70 MLS/HR; Start 01/24/17 at 16:30 Pantoprazole (Protonix Tab) 40 mg DAILY@06 PO Last administered on 01/27/17 05 :19; Admin Dose 40 MG; Start 01/26/17 at 06:00 Hydromorphone HCl (Dilaudid) 1 mg Q2 PRN IV PAIN Last administered on 05:20; Admin Dose 1 MG; Start 01/25/17 at 21:00 Furosemide (Lasix) 20 mg DAILY PO ; Start 01/27/17 at 09:00; Stop 01/29/17 at 09 :00 SHELBY WHITE Jan 27, 2017 06:21
[2017-01-27] MEDS: SOD CHLORIDE 0.9% 1,000 ML IV SCH ×2 (06:29→14:22)
[2017-01-27] MEDS: TRIMETHOPRIM/SULFAMETHOXAZOLE 25 ML in DEXTROSE 5% 500 ML IVPB SCH ×3 (06:39→21:43)
[2017-01-27] MEDS: COLISTIMETHATE (25 MG/ML INHAL SYG) NEB SCH ×2 (08:15→19:51)
[2017-01-27 09:31] LABS: CALCIUM 8.3 mg/dl (8.4-10.2); CREATININE 0.39 mg/dl (0.61-1.24); MAGNESIUM 1.8 mg/dl (1.7-2.5); PHOSPHORUS 3.5 mg/dl (2.5-4.9); POTASSIUM 3.8 mmol/L (3.5-5.1)
[2017-01-27] MEDS: FUROSEMIDE 20 MG TAB PO SCH (09:35)
[2017-01-27] MEDS: predniSONE 20 MG TAB PO SCH (09:36)
[2017-01-27] MEDS: CALCIUM CARBONATE 1.25 GM TAB PO SCH ×2 (09:37→20:18)
[2017-01-27] MEDS: TPN 1,000 ML IV SCH (13:12)
--- NOTE | 2017-01-27 14:40 | CONS ---
Date/Time of Note Date/Time of Note DATE: 01/27/17 TIME: 14:38 Assessment/Plan Assessment/Plan Chief Complaint/Hosp Course SUBJECTIVE DATA: No acute changes overnight. Patient is alert, feels much better, eating lunch, abd pain improving, no fevers MICROBIOLOGY: Blood cultures remain negative. Urine culture negative. Sputum culture growing gram-negative rods. Right lower extremity wound culture grew Citrobacter Freundii , Enterococcus species, Corynebacterium species, and Stenotrophomonas maltophilia. Sputum cx + MDR Kleb INDWELLINGS: PICC line. ANTIMICROBIALS: Antimicrobials: Bactrim, Levaquin, Zosyn, colistin inhalation. PHYSICAL EXAMINATION: This is an obese, chronically ill- appearing, middle aged man who is awake, in no distress. HEENT: Head atraumatic, normocephalic. Sclerae anicteric. Buccal mucosa dry. NECK: Obese. CHEST: Rise symmetrical. Breath sounds diminished at the bases. HEART: S1, S2. Tachycardic, regular. ABDOMEN: Obese, soft, bowel sounds present. EXTREMITIES: Without cyanosis, bilateral edema with multiple unstageable wounds. SKIN: Generalized edema with multiple necrotic wounds. ASSESSMENT: 1. Systemic inflammatory response syndrome with on and off fevers. So far blood and urine culture had been negative. 2. Status post urinary tract infection. 3. Multiple necrotic wounds with wound culture growing multidrug resistant organisms, on antibiotics. 4. Severe pancreatitis, slowly resolving. 5. Severe hypocalcemia, Endocrinology follows. 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 7. Pulmonary nodular opacities consistent with metastatic lymphoma, rule out out pneumonia. 8. Pancytopenia. PLAN: Continues to improve, continue present care, antibiotics, local wound care , follow recommendations of consultants. DW staff/pt Problems: Consultation Date/Type/Reason Admit Date/Time Jan 09, 2017 at 19:08 Initial Consult Date 01/15/17 Type of Consultation: ID Referring Provider: YAO RAHMAN Exam/Review of Systems Vital Signs Vitals Vital Signs Date Time Temp Pulse Resp B/P Pulse Ox O2 Delivery O2 Flow Rate FiO2 01/27/17 13:50 102 20 98 Nasal Cannula 2.0 01/27/17 11:22 98.3 103/58 01/25/17 20:59 Intake and Output 01/26/17 01/26/17 01/27/17 15:00 23:00 07:00 Intake Total 700 ml 2799 ml 200 ml Output Total 1900 ml Balance 700 ml 899 ml 200 ml Results Result Diagram: 01/25/17 0500 01/27/17 0823 Results 24 hrs Laboratory Tests Test 01/27/17 08:23 Sodium Level 129 L Potassium Level 3.8 Chloride Level 94 L Carbon Dioxide Level 28 Anion Gap 11 Blood Urea Nitrogen 3 L Creatinine 0.39 L Glucose Level 105 Calcium Level 8.3 L Phosphorus Level 3.5 Magnesium Level 1.8 Medications Medications Current Medications Docusate Sodium (Colace) 100 mg Q12H PRN PO CONSTIPATION Last administered on 10:46; Admin Dose 100 MG; Start 01/09/17 at 19:30 Magnesium Hydroxide (Milk Of Mag) 30 ml DAILY PRN PO CONSTIPATION; Start at 19:30 Sodium Biphosphate/ Sodium Phosphate (Fleet Enema) [address] CONSTIPATION; Start 01/09/17 at 19:30 Heparin Sodium (Porcine) 5000 unit 5,000 unit Q12 SC Last administered on 09:43; Admin Dose 5,000 UNIT; Start 01/09/17 at 21:00; Status Future Hold Piperacillin Sod/ Tazobactam Sod (Zosyn 3.375gm/ 100 ml (Pmx)) 100 ml @ 200 mls /hr Q6 IVPB Last administered on 01/27/17 11:37; Admin Dose 200 MLS/HR; Start 01/10/17 at 00:00 Nitroglycerin (Nitroglycerin (Sl Tab) 0.4 Mg) 1 tab Q5M PRN SL ANGINA; Start at 19:30 Miscellaneous Information (Pending Santyl Order For Wound Care) This patient aranda... PRN PRN XX WOUND CARE; Start 01/10/17 at 03:30 Ondansetron HCl 4 mg 4 mg Q6 IV Last administered on 01/27/17 11:36; Admin Dose 4 MG; Start 01/10/17 at 15:30 Acetaminophen (Ofirmev 1000mg/ 100ml Iv) 100 ml @ 400 mls/hr Q6 IVPB Last administered on 01/27/17 13:10; Admin Dose 400 MLS/HR; Start 01/10/17 at 16:30 IV Flush (NS 10 ml) 10 ml PRN PRN IV IV PROTOCOL; Start 01/10/17 at 20:30 Prednisone 10 mg 10 mg DAILY PO Last administered on 01/27/17 09:36; Admin Dose 10 MG; Start 01/15/17 at 09:00 Levofloxacin/ Dextrose 150 ml @ 100 mls/hr Q24H IVPB Last administered on 01/26 17:21; Admin Dose 100 MLS/HR; Start 01/18/17 at 16:00 Trimethoprim/ Sulfamethoxazole/ Dextrose (Bactrim/D5W) 525 ml @ 343.333 mls/hr Q8 IVPB Last administered on 01/27/17 14:22; Admin Dose 343.333 MLS/HR; Start 01/19/17 at 13:30 Metoprolol Succinate 50 mg 50 mg QHS PO Last administered on 01/26/17 20:03; Admin Dose 50 MG; Start 01/21/17 at 21:00 Total Parenteral Nutrition 1,000 ml @ 80 mls/hr [id number] IV Last administered on 01/27/17 13:12; Admin Dose 80 MLS/HR; Start 01/21/17 at 16:30 Hydromorphone HCl/ Dextrose (Dilaudid/D5W) 50 ml @ 2 mls/hr TITRATE IV Last administered on 01/26/17 19:09; Admin Dose 2 MLS/HR; Start 01/23/17 at 16:30 Ergocalciferol (Drisdol) 50,000 unit We@09 PO Last administered on 01/25/17 08 :39; Admin Dose 50,000 UNIT; Start 01/25/17 at 09:00 Calcium Carbonate 1.25 gm 1.25 gm BID PO Last administered on 01/27/17 09:37; Admin Dose 1.25 GM; Start 01/24/17 at 21:00 Sodium Chloride (NS) 1,000 ml @ 40 mls/hr Q24H IV Last administered on 14:22; Admin Dose 40 MLS/HR; Start 01/24/17 at 16:30 Pantoprazole (Protonix Tab) 40 mg DAILY@06 PO Last administered on 01/27/17 05 :19; Admin Dose 40 MG; Start 01/26/17 at 06:00 Hydromorphone HCl (Dilaudid) 1 mg Q2 PRN IV PAIN Last administered on 11:36; Admin Dose 1 MG; Start 01/25/17 at 21:00 Furosemide (Lasix) 20 mg DAILY PO Last administered on 01/27/17 09:35; Admin Dose 20 MG; Start 01/27/17 at 09:00; Stop 01/29/17 at 09:00 DEENA LOCO NP Jan 27, 2017 14:40
--- NOTE | 2017-01-27 15:36 | PN ---
Date/Time of Note Date/Time of Note DATE: 01/27/17 TIME: 15:30 Assessment/Plan Lines/Catheters IV Catheter Type (from Nrs): PICC Line [place] in Place (from Nrs): No Assessment/Plan Assessment/Plan [facility] Progress Note Date of Service: 01/27/2017 Place of service: [facility] 5W tele Today's Assessment & Plan: Overall stable with many medical issues. Pancreatitis seems controlled and chemically normal. No indication for acute surgical intervention. Discussed with patient and answered all questions. 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 Very difficult situation with somewhat poor prognosis. Fortunately no indication for acute surgical intervention. No evidence of infected necrosis that would require drain placement or surgical necrosectomy of the pancreas. Would be important to try and avoid major interventions in order to not delay life-prolonging chemotherapeutic intervention. With above assessment, I've recommended the followin. Continue aggressive medical management 2. Full liquid diet 3. Follow GIs recommendations 4. If it would make a difference in management, may consider percutaneous biopsy of segment 6 area of abnormality in the liver 5. Multidisciplinary tumor board presentation and discussions 6. Consideration for clinical trials once improved medically 7. LFT's, amylase and lipase checks tomorrow with labs Thank you very much for having me involved in the care of this very pleasant patient and wonderful family. If you have any questions, please feel free to contact me at [phone]. Nature of presenting problem: High severity Please note that, given the extensive number of diagnoses or management options , the extensive amount and/or complexity of data needed to be reviewed, and high risk of complications and/or morbidity or mortality, this qualifies as high complexity type of decision-making. Disclaimer: Inadvertent spelling and grammatical errors are likely due to EHR/ dictation software use and do not reflect on the quality of delivered patient care. Also, please note that the electronic time recorded on this node does not necessarily reflect the actual time of the visit. 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 Status post CT-guided left flank subcutaneous nodule biopsy [facility] 01/12/2017. Comorbidities: 1. BMI 40.7 2. Small right pleural effusion with atelectasis and right lung base pneumonia. 3. Large B cell anaplastic lymphoma; status post chemo 1 month prior to presentation 4. Sepsis 5. Hyponatremia 6. Hypokalemia 7. Acute renal injury Subjective: No major events or complaints; reported no major new abd pain and under control with medications; no significant reported nausea or vomiting and no major diarrhea; no sob or cp; + flatus; - BM; minimal to no activity. Objective: Vitals: See below I's & O's: See below Exam: GENERAL: On exam, the patient was lying in bed and appeared to be comfortable and in no acute distress. Diaphoretic. ABDOMEN: Soft, minimal to no tenderness and nondistended. There are no peritoneal signs or guarding. SKIN: Skin appears to be pink and feels warm to touch. NEUROLOGIC: Patient is awake, alert, and follows commands appropriately. Labs: See below Exam/Review of Systems Vital Signs Vitals Vital Signs Date Time Temp Pulse Resp B/P Pulse Ox O2 Delivery O2 Flow Rate FiO2 01/27/17 13:50 102 20 98 Nasal Cannula 2.0 01/27/17 11:22 98.3 103/58 01/25/17 20:59 Intake and Output 01/26/17 01/26/17 01/27/17 15:00 23:00 07:00 Intake Total 700 ml 2799 ml 200 ml Output Total 1900 ml Balance 700 ml 899 ml 200 ml Results Result Diagram: 01/25/17 0500 01/27/17 0823 LENKA HERNANDEZ M.D. Jan 27, 2017 15:36
--- NOTE | 2017-01-27 15:53 | PN ---
Date/Time of Note Date/Time of Note DATE: 01/27/17 TIME: 15:52 Assessment/Plan VTE Prophylaxis VTE Prophylaxis Intervention: anti-embolic stocking Lines/Catheters IV Catheter Type (from Nrsg): PICC Line Central line still needed: Yes Urinary Cath still in place: No Assessment/Plan Chief Complaint/Hosp Course 1. Acute renal injury 2. Right pleural effusion with atelectasis and right lung base pneumonia. 3. Large B cell anaplastic lymphoma; status post chemo 1 month 4. Sepsis resolving 5. Electrolyte imbalance 6. Severe anemia 7. Morbid obesity Problems: Subjective 24 Hr Interval Summary Constitutional: improved, no complaints Cardiovascular: no complaints Gastrointestinal: no complaints Genitourinary: no complaints Exam/Review of Systems Vital Signs Vitals Vital Signs Date Time Temp Pulse Resp B/P Pulse Ox O2 Delivery O2 Flow Rate FiO2 01/27/17 13:50 102 20 98 Nasal Cannula 2.0 01/27/17 11:22 98.3 103/58 01/25/17 20:59 Intake and Output 01/26/17 01/26/17 01/27/17 15:00 23:00 07:00 Intake Total 700 ml 2799 ml 200 ml Output Total 1900 ml Balance 700 ml 899 ml 200 ml Exam pain is well controlled Constitutional: alert, oriented Respiratory: clear to auscultation Cardiovascular: regular rate and rhythm Genitourinary - Male: nl scrotum Results Result Diagram: 01/25/17 0500 01/27/17 0823 Results 24 hrs Laboratory Tests Test 01/27/17 08:23 Sodium Level 129 L Potassium Level 3.8 Chloride Level 94 L Carbon Dioxide Level 28 Anion Gap 11 Blood Urea Nitrogen 3 L Creatinine 0.39 L Glucose Level 105 Calcium Level 8.3 L Phosphorus Level 3.5 Magnesium Level 1.8 Medications Medications Current Medications Docusate Sodium (Colace) 100 mg Q12H PRN PO CONSTIPATION Last administered on t 10:46; Admin Dose 100 MG; Start 01/09/17 at 19:30 Magnesium Hydroxide (Milk Of Mag) 30 ml DAILY PRN PO CONSTIPATION; Start at 19:30 Sodium Biphosphate/ Sodium Phosphate (Fleet Enema) 133 ml DAILY PRN [place] CONSTIPATION; Start 01/09/17 at 19:30 Heparin Sodium (Porcine) 5000 unit 5,000 unit Q12 SC Last administered on 09:43; Admin Dose 5,000 UNIT; Start 01/09/17 at 21:00; Status Future Hold Piperacillin Sod/ Tazobactam Sod (Zosyn 3.375gm/ 100 ml (Pmx)) 100 ml @ 200 mls /hr Q6 IVPB Last administered on 01/27/17 11:37; Admin Dose 200 MLS/HR; Start 01/10/17 at 00:00 Nitroglycerin (Nitroglycerin (Sl Tab) 0.4 Mg) 1 tab Q5M PRN SL ANGINA; Start at 19:30 Miscellaneous Information (Pending Santyl Order For Wound Care) This patient aranda... PRN PRN XX WOUND CARE; Start 01/10/17 at 03:30 Ondansetron HCl 4 mg 4 mg Q6 IV Last administered on 01/27/17 11:36; Admin Dose 4 MG; Start 01/10/17 at 15:30 Acetaminophen (Ofirmev 1000mg/ 100ml Iv) 100 ml @ 400 mls/hr Q6 IVPB Last administered on 01/27/17 13:10; Admin Dose 400 MLS/HR; Start 01/10/17 at 16:30 IV Flush (NS 10 ml) 10 ml PRN PRN IV IV PROTOCOL; Start 01/10/17 at 20:30 Prednisone 10 mg 10 mg DAILY PO Last administered on 01/27/17 09:36; Admin Dose 10 MG; Start 01/15/17 at 09:00 Levofloxacin/ Dextrose 150 ml @ 100 mls/hr Q24H IVPB Last administered on 01/26 17:21; Admin Dose 100 MLS/HR; Start 01/18/17 at 16:00 Trimethoprim/ Sulfamethoxazole/ Dextrose (Bactrim/D5W) 525 ml @ 343.333 mls/hr Q8 IVPB Last administered on 01/27/17 14:22; Admin Dose 343.333 MLS/HR; Start 01/19/17 at 13:30 Metoprolol Succinate 50 mg 50 mg QHS PO Last administered on 01/26/17 20:03; Admin Dose 50 MG; Start 01/21/17 at 21:00 Total Parenteral Nutrition 1,000 ml @ 80 mls/hr [id number] IV Last administered on 01/27/17 13:12; Admin Dose 80 MLS/HR; Start 01/21/17 at 16:30 Hydromorphone HCl/ Dextrose (Dilaudid/D5W) 50 ml @ 2 mls/hr TITRATE IV Last administered on 01/26/17 19:09; Admin Dose 2 MLS/HR; Start 01/23/17 at 16:30 Ergocalciferol (Drisdol) 50,000 unit We@09 PO Last administered on 01/25/17 08 :39; Admin Dose 50,000 UNIT; Start 01/25/17 at 09:00 Calcium Carbonate 1.25 gm 1.25 gm BID PO Last administered on 01/27/17 09:37; Admin Dose 1.25 GM; Start 01/24/17 at 21:00 Sodium Chloride (NS) 1,000 ml @ 40 mls/hr Q24H IV Last administered on 14:22; Admin Dose 40 MLS/HR; Start 01/24/17 at 16:30 Pantoprazole (Protonix Tab) 40 mg DAILY@06 PO Last administered on 01/27/17 05 :19; Admin Dose 40 MG; Start 01/26/17 at 06:00 Hydromorphone HCl (Dilaudid) 1 mg Q2 PRN IV PAIN Last administered on 11:36; Admin Dose 1 MG; Start 01/25/17 at 21:00 Furosemide (Lasix) 20 mg DAILY PO Last administered on 01/27/17 09:35; Admin Dose 20 MG; Start 01/27/17 at 09:00; Stop 01/29/17 at 09:00 MOISES WEAVER Jan 27, 2017 15:53
[2017-01-27] MEDS: LEVOFLOXACIN 750MG/D5W (PMX) 150 ML IVPB SCH (16:07)
--- NOTE | 2017-01-27 17:56 | PN ---
Date/Time of Note Date/Time of Note DATE: 01/27/17 TIME: 17:51 Assessment/Plan VTE Prophylaxis VTE Prophylaxis Intervention: SCD's Lines/Catheters IV Catheter Type (from Nrsg): PICC Line Central line still needed: Yes Urinary Cath still in place: No Subjective 24 Hr Interval Summary Free Text/Dictation Assessment/Plan Assessment/Plan Assessment/Plan * Anemia * Acute pancreatitis, etiology unclear * Mild abnormality liver function tests with no evidence of biliary pathology * Anaplastic B-cell lymphoma/aggressive behavior * Sepsis/pneumonia/improved Plan: * continue present management * pain control * Monitor hemoglobin and hematocrit daily * Continue monitor lipase and abdominal pain * case discussed with Dr Hewitt Free Text/Dictation * Course reviewed with RN * patient seen and examined * tolerating clear liquid no vomiting * no untoward events overnight Exam Constitutional: alert, frail Neck: non-tender, supple Respiratory: diminished breath sounds, normal air movement Cardiovascular: nl pulses, regular rate and rhythm Gastrointestinal: distended, soft, tender, No rebound or guarding Musculoskeletal: muscle weakness Extremities: edema, pitting pedal edema Neurological: nl mental status, nl speech Skin: nl turgor, No rash or lesions Lymph: nl lymph nodes Exam/Review of Systems Vital Signs Vitals Vital Signs Date Time Temp Pulse Resp B/P Pulse Ox O2 Delivery O2 Flow Rate FiO2 01/27/17 16:26 99 01/27/17 15:56 98.4 18 124/64 96 01/27/17 13:50 Nasal Cannula 2.0 01/25/17 20:59 Intake and Output 01/26/17 01/26/17 01/27/17 15:00 23:00 07:00 Intake Total 700 ml 2799 ml 200 ml Output Total 1900 ml Balance 700 ml 899 ml 200 ml Results Result Diagram: 01/25/17 0500 01/27/17 0823 Results 24 hrs Laboratory Tests Test 01/27/17 08:23 Sodium Level 129 L Potassium Level 3.8 Chloride Level 94 L Carbon Dioxide Level 28 Anion Gap 11 Blood Urea Nitrogen 3 L Creatinine 0.39 L Glucose Level 105 Calcium Level 8.3 L Phosphorus Level 3.5 Magnesium Level 1.8 Medications Medications Current Medications Docusate Sodium (Colace) 100 mg Q12H PRN PO CONSTIPATION Last administered on t 10:46; Admin Dose 100 MG; Start 01/09/17 at 19:30 Magnesium Hydroxide (Milk Of Mag) 30 ml DAILY PRN PO CONSTIPATION; Start at 19:30 Sodium Biphosphate/ Sodium Phosphate (Fleet Enema) 133 ml DAILY PRN [place] CONSTIPATION; Start 01/09/17 at 19:30 Heparin Sodium (Porcine) 5000 unit 5,000 unit Q12 SC Last administered on 09:43; Admin Dose 5,000 UNIT; Start 01/09/17 at 21:00; Status Future Hold Piperacillin Sod/ Tazobactam Sod (Zosyn 3.375gm/ 100 ml (Pmx)) 100 ml @ 200 mls /hr Q6 IVPB Last administered on 01/27/17 11:37; Admin Dose 200 MLS/HR; Start 01/10/17 at 00:00 Nitroglycerin (Nitroglycerin (Sl Tab) 0.4 Mg) 1 tab Q5M PRN SL ANGINA; Start at 19:30 Miscellaneous Information (Pending [facility] Order For Wound Care) This patient aranda... PRN PRN XX WOUND CARE; Start 01/10/17 at 03:30 Ondansetron HCl 4 mg 4 mg Q6 IV Last administered on 01/27/17 17:47; Admin Dose 4 MG; Start 01/10/17 at 15:30 Acetaminophen (Ofirmev 1000mg/ 100ml Iv) 100 ml @ 400 mls/hr Q6 IVPB Last administered on 01/27/17 17:34; Admin Dose 400 MLS/HR; Start 01/10/17 at 16:30 IV Flush (NS 10 ml) 10 ml PRN PRN IV IV PROTOCOL; Start 01/10/17 at 20:30 Prednisone 10 mg 10 mg DAILY PO Last administered on 01/27/17 09:36; Admin Dose 10 MG; Start 01/15/17 at 09:00 Levofloxacin/ Dextrose 150 ml @ 100 mls/hr Q24H IVPB Last administered on 01/27 16:07; Admin Dose 100 MLS/HR; Start 01/18/17 at 16:00 Trimethoprim/ Sulfamethoxazole/ Dextrose (Bactrim/D5W) 525 ml @ 343.333 mls/hr Q8 IVPB Last administered on 01/27/17 14:22; Admin Dose 343.333 MLS/HR; Start 01/19/17 at 13:30 Metoprolol Succinate 50 mg 50 mg QHS PO Last administered on 01/26/17 20:03; Admin Dose 50 MG; Start 01/21/17 at 21:00 Hydromorphone HCl/ Dextrose (Dilaudid/D5W) 50 ml @ 2 mls/hr TITRATE IV Last administered on 01/26/17 19:09; Admin Dose 2 MLS/HR; Start 01/23/17 at 16:30 Ergocalciferol (Drisdol) 50,000 unit We@09 PO Last administered on 01/25/17 08 :39; Admin Dose 50,000 UNIT; Start 01/25/17 at 09:00 Calcium Carbonate 1.25 gm 1.25 gm BID PO Last administered on 01/27/17 09:37; Admin Dose 1.25 GM; Start 01/24/17 at 21:00 Sodium Chloride (NS) 1,000 ml @ 40 mls/hr Q24H IV Last administered on 14:22; Admin Dose 40 MLS/HR; Start 01/24/17 at 16:30 Pantoprazole (Protonix Tab) 40 mg DAILY@06 PO Last administered on 01/27/17 05 :19; Admin Dose 40 MG; Start 01/26/17 at 06:00 Hydromorphone HCl (Dilaudid) 1 mg Q2 PRN IV PAIN Last administered on 16:08; Admin Dose 1 MG; Start 01/25/17 at 21:00 Furosemide (Lasix) 20 mg DAILY PO Last administered on 01/27/17 09:35; Admin Dose 20 MG; Start 01/27/17 at 09:00; Stop 01/29/17 at 09:00 FAUSTINO HEWITT MD Jan 27, 2017 17:56
--- NOTE | 2017-01-27 18:21 | CONS ---
Date/Time of Note Date/Time of Note DATE: 01/27/17 TIME: 18:18 Assessment/Plan Assessment/Plan Chief Complaint/Hosp Course 31-year-old gentleman with a history of a non-Hodgkin's large B cell anaplastic lymphoma diagnosed roughly 18 months ago. He came into the hospital with abdominal pain but at that time had a low lipase level. At that time his calciums were normal his thyroid function was normal he had on appropriate serum cortisol despite having been on tapering dosages of prednisone as an outpatient. I have contacted [employer] to get the blood test reports. While his serum calcium was 5.3 with a low ionized calcium he had a PTH in the mid 20s. This is an inappropriately low normal PTH in the setting of severe hypocalcemia. This indicates hypo-parathyroidism. The patient informs me there is no prior history of this. Since he has not had neck surgery Problems: (1) Hypovitaminosis D Status: Chronic Comment: Correcting nicely (2) Hypoparathyroidism, unspecified Status: Acute Comment: Calcium is normalized now. Continue observation and follow up on repeat PTH Consultation Date/Type/Reason Admit Date/Time Jan 09, 2017 at 19:08 Initial Consult Date 01/15/17 Type of Consultation: Endocrinology Reason for Consultation Hypovitaminosis D; HypoPTH; Hypocalcemia Referring Provider: YAO RAHMAN 24 HR Interval Summary Free Text/Dictation No changes Exam/Review of Systems Vital Signs Vitals Vital Signs Date Time Temp Pulse Resp B/P Pulse Ox O2 Delivery O2 Flow Rate FiO2 01/27/17 16:26 99 01/27/17 15:56 98.4 18 124/64 96 01/27/17 13:50 Nasal Cannula 2.0 01/25/17 20:59 Intake and Output 01/26/17 01/26/17 01/27/17 15:00 23:00 07:00 Intake Total 700 ml 2799 ml 200 ml Output Total 1900 ml Balance 700 ml 899 ml 200 ml Results No changes Result Diagram: 01/25/17 0500 01/27/17 0823 Results 24 hrs Laboratory Tests Test 01/27/17 08:23 Sodium Level 129 L Potassium Level 3.8 Chloride Level 94 L Carbon Dioxide Level 28 Anion Gap 11 Blood Urea Nitrogen 3 L Creatinine 0.39 L Glucose Level 105 Calcium Level 8.3 L Phosphorus Level 3.5 Magnesium Level 1.8 Medications Medications Current Medications Docusate Sodium (Colace) 100 mg Q12H PRN PO CONSTIPATION Last administered on 10:46; Admin Dose 100 MG; Start 01/09/17 at 19:30 Magnesium Hydroxide (Milk Of Mag) 30 ml DAILY PRN PO CONSTIPATION; Start at 19:30 Sodium Biphosphate/ Sodium Phosphate (Fleet Enema) 133 ml DAILY PRN [place] CONSTIPATION; Start 01/09/17 at 19:30 Heparin Sodium (Porcine) 5000 unit 5,000 unit Q12 SC Last administered on 09:43; Admin Dose 5,000 UNIT; Start 01/09/17 at 21:00; Status Future Hold Piperacillin Sod/ Tazobactam Sod (Zosyn 3.375gm/ 100 ml (Pmx)) 100 ml @ 200 mls /hr Q6 IVPB Last administered on 01/27/17 11:37; Admin Dose 200 MLS/HR; Start 01/10/17 at 00:00 Nitroglycerin (Nitroglycerin (Sl Tab) 0.4 Mg) 1 tab Q5M PRN SL ANGINA; Start at 19:30 Miscellaneous Information [facility] This patient aranda... PRN PRN XX WOUND CARE; Start 01/10/17 at 03:30 Ondansetron HCl 4 mg 4 mg Q6 IV Last administered on 01/27/17 17:47; Admin Dose 4 MG; Start 01/10/17 at 15:30 Acetaminophen (Ofirmev 1000mg/ 100ml Iv) 100 ml @ 400 mls/hr Q6 IVPB Last administered on 01/27/17 17:34; Admin Dose 400 MLS/HR; Start 01/10/17 at 16:30 IV Flush (NS 10 ml) 10 ml PRN PRN IV IV PROTOCOL; Start 01/10/17 at 20:30 Prednisone 10 mg 10 mg DAILY PO Last administered on 01/27/17 09:36; Admin Dose 10 MG; Start 01/15/17 at 09:00 Levofloxacin/ Dextrose 150 ml @ 100 mls/hr Q24H IVPB Last administered on 01/27 16:07; Admin Dose 100 MLS/HR; Start 01/18/17 at 16:00 Trimethoprim/ Sulfamethoxazole/ Dextrose (Bactrim/D5W) 525 ml @ 343.333 mls/hr Q8 IVPB Last administered on 01/27/17 14:22; Admin Dose 343.333 MLS/HR; Start 01/19/17 at 13:30 Metoprolol Succinate 50 mg 50 mg QHS PO Last administered on 01/26/17 20:03; Admin Dose 50 MG; Start 01/21/17 at 21:00 Hydromorphone HCl/ Dextrose (Dilaudid/D5W) 50 ml @ 2 mls/hr TITRATE IV Last administered on 01/26/17 19:09; Admin Dose 2 MLS/HR; Start 01/23/17 at 16:30 Ergocalciferol (Drisdol) 50,000 unit We@09 PO Last administered on 01/25/17 08 :39; Admin Dose 50,000 UNIT; Start 01/25/17 at 09:00 Calcium Carbonate 1.25 gm 1.25 gm BID PO Last administered on 01/27/17 09:37; Admin Dose 1.25 GM; Start 01/24/17 at 21:00 Sodium Chloride (NS) 1,000 ml @ 40 mls/hr Q24H IV Last administered on 14:22; Admin Dose 40 MLS/HR; Start 01/24/17 at 16:30 Pantoprazole (Protonix Tab) 40 mg DAILY@06 PO Last administered on 01/27/17 05 :19; Admin Dose 40 MG; Start 01/26/17 at 06:00 Hydromorphone HCl (Dilaudid) 1 mg Q2 PRN IV PAIN Last administered on 16:08; Admin Dose 1 MG; Start 01/25/17 at 21:00 Furosemide (Lasix) 20 mg DAILY PO Last administered on 01/27/17 09:35; Admin Dose 20 MG; Start 01/27/17 at 09:00; Stop 01/29/17 at 09:00 YOLY NASCIMENTO MD Jan 27, 2017 18:20
[2017-01-27] MEDS: METOPROLOL (XL) 25 MG TAB PO SCH (20:24)
--- NOTE | 2017-01-27 22:58 | CONS ---
Date/Time of Note Date/Time of Note DATE: 01/27/17 TIME: 22:57 Assessment/Plan Assessment/Plan Chief Complaint/Hosp Course Anaplastic B-cell Lymphoma pt was dx'd with lymphoma a year and half ago , it turned into an aggressive type. His last chemo was a month ago and hadn't had since due to experiencing similar presenting symptoms. record from pt's oncologist Kain Wisdom - Kenji Left flank mass, CT-guided core needle biopsies with touch imprints: Completely necrotic tissue, insufficient for pathologic evaluation. PER PT REPORT- reportedly scheduled for change in therapy due to what appears to be lack of adequate response LEUKOPENIA IN PT WITH HNL ON CHEMO AND WITH SEPTIC PICTURE MONITOR BLOOD COUNT CLOSELY POST NEUPOGEN WBC- FLUCTUATING , NOT IN NEUTROPENIA LEVEL AT PRESENT PANCYTOPENIA POST CHEMO CONT TO MONITOR PRBC NEEDED Sepsis 2/2 PNA - abx, IVF - f/u culture results - ID pancreatitis. Abd Pain with N/V: 2/2 known lymphoma - pain mgmt - Anti-emetics Hyponatremia and Hypokalemia: 2/2 vomiting - NS IVF - replete K+ as needed Presumed RAMU: likely pre-renal 2/2 vomiting - cont IVF for now Problems: Consultation Date/Type/Reason Admit Date/Time Jan 09, 2017 at 19:08 Initial Consult Date 01/10/17 Type of Consultation: [facility] Referring Provider: YAO RAHMAN 24 HR Interval Summary Free Text/Dictation ALL NOTED Exam/Review of Systems Vital Signs Vitals Vital Signs Date Time Temp Pulse Resp B/P Pulse Ox O2 Delivery O2 Flow Rate FiO2 01/27/17 20:19 95 01/27/17 19:51 22 Nasal Cannula 2.0 01/27/17 19:38 98.1 104/57 96 01/25/17 20:59 Intake and Output 01/26/17 01/26/17 01/27/17 15:00 23:00 07:00 Intake Total 700 ml 2799 ml 200 ml Output Total 1900 ml Balance 700 ml 899 ml 200 ml Exam This is an obese, chronically ill- appearing, middle aged man who is awake, in no distress. HEENT: Head atraumatic, normocephalic. Sclerae anicteric. Buccal mucosa dry. NECK: Obese. CHEST: Rise symmetrical. Breath sounds diminished at the bases. HEART: S1, S2. Tachycardic, regular. ABDOMEN: Obese, soft, bowel sounds present. EXTREMITIES: Without cyanosis, bilateral edema with multiple unstageable wounds. SKIN: Generalized edema with multiple necrotic wounds. Results Result Diagram: 01/25/17 0500 01/27/17 0823 Results 24 hrs Laboratory Tests Test 01/27/17 08:23 Sodium Level 129 L Potassium Level 3.8 Chloride Level 94 L Carbon Dioxide Level 28 Anion Gap 11 Blood Urea Nitrogen 3 L Creatinine 0.39 L Glucose Level 105 Calcium Level 8.3 L Phosphorus Level 3.5 Magnesium Level 1.8 Medications Medications Current Medications Docusate Sodium (Colace) 100 mg Q12H PRN PO CONSTIPATION Last administered on 10:46; Admin Dose 100 MG; Start 01/09/17 at 19:30 Magnesium Hydroxide (Milk Of Mag) 30 ml DAILY PRN PO CONSTIPATION; Start at 19:30 Sodium Biphosphate/ Sodium Phosphate (Fleet Enema) 133 ml DAILY PRN [place] CONSTIPATION; Start 01/09/17 at 19:30 Heparin Sodium (Porcine) 5000 unit 5,000 unit Q12 SC Last administered on 09:43; Admin Dose 5,000 UNIT; Start 01/09/17 at 21:00; Status Future Hold Piperacillin Sod/ Tazobactam Sod (Zosyn 3.375gm/ 100 ml (Pmx)) 100 ml @ 200 mls /hr Q6 IVPB Last administered on 01/27/17 18:28; Admin Dose 200 MLS/HR; Start 01/10/17 at 00:00 Nitroglycerin (Nitroglycerin (Sl Tab) 0.4 Mg) 1 tab Q5M PRN SL ANGINA; Start at 19:30 Miscellaneous Information [facility] This patient aranda... PRN PRN XX WOUND CARE; Start 01/10/17 at 03:30 Ondansetron HCl 4 mg 4 mg Q6 IV Last administered on 01/27/17 17:47; Admin Dose 4 MG; Start 01/10/17 at 15:30 Acetaminophen (Ofirmev 1000mg/ 100ml Iv) 100 ml @ 400 mls/hr Q6 IVPB Last administered on 01/27/17 17:34; Admin Dose 400 MLS/HR; Start 01/10/17 at 16:30 IV Flush (NS 10 ml) 10 ml PRN PRN IV IV PROTOCOL; Start 01/10/17 at 20:30 Prednisone 10 mg 10 mg DAILY PO Last administered on 01/27/17 09:36; Admin Dose 10 MG; Start 01/15/17 at 09:00 Levofloxacin/ Dextrose 150 ml @ 100 mls/hr Q24H IVPB Last administered on 01/27 16:07; Admin Dose 100 MLS/HR; Start 01/18/17 at 16:00 Trimethoprim/ Sulfamethoxazole/ Dextrose (Bactrim/D5W) 525 ml @ 343.333 mls/hr Q8 IVPB Last administered on 01/27/17 21:43; Admin Dose 343.333 MLS/HR; Start 01/19/17 at 13:30 Metoprolol Succinate 50 mg 50 mg QHS PO Last administered on 01/26/17 20:03; Admin Dose 50 MG; Start 01/21/17 at 21:00 Hydromorphone HCl/ Dextrose (Dilaudid/D5W) 50 ml @ 2 mls/hr TITRATE IV Last administered on 01/26/17 19:09; Admin Dose 2 MLS/HR; Start 01/23/17 at 16:30 Ergocalciferol (Drisdol) 50,000 unit We@09 PO Last administered on 01/25/17 08 :39; Admin Dose 50,000 UNIT; Start 01/25/17 at 09:00 Calcium Carbonate 1.25 gm 1.25 gm BID PO Last administered on 01/27/17 20:18; Admin Dose 1.25 GM; Start 01/24/17 at 21:00 Sodium Chloride (NS) 1,000 ml @ 40 mls/hr Q24H IV Last administered on 14:22; Admin Dose 40 MLS/HR; Start 01/24/17 at 16:30 Pantoprazole (Protonix Tab) 40 mg DAILY@06 PO Last administered on 01/27/17 05 :19; Admin Dose 40 MG; Start 01/26/17 at 06:00 Hydromorphone HCl (Dilaudid) 1 mg Q2 PRN IV PAIN Last administered on 20:19; Admin Dose 1 MG; Start 01/25/17 at 21:00 Furosemide (Lasix) 20 mg DAILY PO Last administered on 01/27/17t 09:35; Admin Dose 20 MG; Start 01/27/17 at 09:00; Stop 01/29/17 at 09:00 MOIRA BIRMINGHAM MD Jan 27, 2017 22:58
[2017-01-28] VITALS (11 sets, daily range): BP systolic 114–135; BP diastolic 60–66; PULSE 96–127; RESP 18–19
[2017-01-28] MEDS: HYDROmorphONE 50 MG in DEXTROSE 5% 45 ML IV SCH (01:00)
[2017-01-28] MEDS: IPRATROPIUM (NEB) 0.5 MG/2.5 ML AMP HHN SCH ×3 (02:09→14:09)
[2017-01-28] MEDS: LEVALBUTEROL (NEB) 0.63 MG/3 ML AMP HHN SCH ×3 (02:09→14:10)
[2017-01-28] MEDS: HYDROmorphONE 1 MG/ML SYG IV PRN ×6 (02:24→20:13)
[2017-01-28] MEDS: PIPER-TAZO 3.375 GM IV (PMX) 100 ML IVPB SCH ×3 (05:31→21:08)
[2017-01-28] MEDS: PANTOPRAZOLE (EC) 40 MG TAB PO SCH (05:31)
[2017-01-28] MEDS: ACETAMINOPHEN 1000MG/100ML IV 100 ML IVPB SCH ×3 (05:32→20:20)
[2017-01-28] MEDS: ONDANSETRON 4 MG INJ IV SCH ×3 (05:32→20:17)
[2017-01-28] MEDS: TRIMETHOPRIM/SULFAMETHOXAZOLE 25 ML in DEXTROSE 5% 500 ML IVPB SCH ×3 (06:24→22:53)
[2017-01-28 07:41] LABS: CALCIUM 8.7 mg/dl (8.4-10.2); CREATININE 0.36 mg/dl (0.61-1.24); MAGNESIUM 1.8 mg/dl (1.7-2.5); PHOSPHORUS 3.2 mg/dl (2.5-4.9); POTASSIUM 4.3 mmol/L (3.5-5.1)
[2017-01-28] MEDS: COLISTIMETHATE (25 MG/ML INHAL SYG) NEB SCH ×2 (08:49→20:44)
[2017-01-28] MEDS: predniSONE 20 MG TAB PO SCH (09:22)
[2017-01-28] MEDS: FUROSEMIDE 20 MG TAB PO SCH (09:23)
[2017-01-28] MEDS: CALCIUM CARBONATE 1.25 GM TAB PO SCH ×2 (09:23→20:17)
--- NOTE | 2017-01-28 10:22 | CONS ---
Date/Time of Note Date/Time of Note DATE: 01/28/17 TIME: 10:20 Assessment/Plan Assessment/Plan Chief Complaint/Hosp Course 31-year-old gentleman with a history of a non-Hodgkin's large B cell anaplastic lymphoma diagnosed roughly 18 months ago. He came into the hospital with abdominal pain but at that time had a low lipase level. At that time his calciums were normal his thyroid function was normal he had on appropriate serum cortisol despite having been on tapering dosages of prednisone as an outpatient. I have contacted [employer] to get the blood test reports. While his serum calcium was 5.3 with a low ionized calcium he had a PTH in the mid 20s. This is an inappropriately low normal PTH in the setting of severe hypocalcemia. This indicates hypo-parathyroidism. The patient informs me there is no prior history of this. Since he has not had neck surgery Problems: (1) Hypovitaminosis D Status: Chronic Comment: He is being repleted nicely. Continue to treat. (2) Hypoparathyroidism, unspecified Status: Acute Comment: Follow-up PTH level still pending (3) Hypocalcemia Status: Acute Comment: Good control. Consultation Date/Type/Reason Admit Date/Time Jan 09, 2017 at 19:08 Initial Consult Date 01/15/17 Type of Consultation: Endocrinology Reason for Consultation Hypocalcemia; hypovitaminosis D; PTH insufficiency Referring Provider: YAO RAHMAN 24 HR Interval Summary Free Text/Dictation Patient reports that he has not had any further nausea or vomiting;. His abdominal pain persists. Exam/Review of Systems Vital Signs Vitals Vital Signs Date Time Temp Pulse Resp B/P Pulse Ox O2 Delivery O2 Flow Rate FiO2 01/28/17 09:03 106 20 98 Nasal Cannula 2.0 01/28/17 08:12 97.8 115/61 01/25/17 20:59 Intake and Output 01/27/17 01/27/17 01/28/17 15:00 23:00 07:00 Intake Total 1660 ml 800 ml Output Total 4200 ml 3000 ml Balance -2540 ml -2200 ml Results No changes in exam. Result Diagram: 01/25/17 0500 01/28/17 0626 Results 24 hrs Laboratory Tests Test 01/28/17 06:26 Sodium Level 133 L Potassium Level 4.3 Chloride Level 92 L Carbon Dioxide Level 29 Anion Gap 16 Blood Urea Nitrogen 3 L Creatinine 0.36 L Glucose Level 96 Calcium Level 8.7 Phosphorus Level 3.2 Magnesium Level 1.8 Medications Medications Current Medications Docusate Sodium (Colace) 100 mg Q12H PRN PO CONSTIPATION Last administered on 10:46; Admin Dose 100 MG; Start 01/09/17 at 19:30 Magnesium Hydroxide (Milk Of Mag) 30 ml DAILY PRN PO CONSTIPATION; Start at 19:30 Sodium Biphosphate/ Sodium Phosphate (Fleet Enema) 133 ml DAILY PRN [place] CONSTIPATION; Start 01/09/17 at 19:30 Heparin Sodium (Porcine) 5000 unit 5,000 unit Q12 SC Last administered on 09:43; Admin Dose 5,000 UNIT; Start 01/09/17 at 21:00; Status Future Hold Piperacillin Sod/ Tazobactam Sod (Zosyn 3.375gm/ 100 ml (Pmx)) 100 ml @ 200 mls /hr Q6 IVPB Last administered on 01/28/17 05:31; Admin Dose 200 MLS/HR; Start 01/10/17 at 00:00 Nitroglycerin (Nitroglycerin (Sl Tab) 0.4 Mg) 1 tab Q5M PRN SL ANGINA; Start at 19:30 Miscellaneous Information (Pending [facility] Order For Wound Care) This patient aranda... PRN PRN XX WOUND CARE; Start 01/10/17 at 03:30 Ondansetron HCl 4 mg 4 mg Q6 IV Last administered on 01/28/17 05:32; Admin Dose 4 MG; Start 01/10/17 at 15:30 Acetaminophen (Ofirmev 1000mg/ 100ml Iv) 100 ml @ 400 mls/hr Q6 IVPB Last administered on 01/28/17 05:32; Admin Dose 400 MLS/HR; Start 01/10/17 at 16:30 IV Flush (NS 10 ml) 10 ml PRN PRN IV IV PROTOCOL; Start 01/10/17 at 20:30 Prednisone 10 mg 10 mg DAILY PO Last administered on 01/28/17 09:22; Admin Dose 10 MG; Start 01/15/17 at 09:00 Levofloxacin/ Dextrose 150 ml @ 100 mls/hr Q24H IVPB Last administered on 01/27 16:07; Admin Dose 100 MLS/HR; Start 01/18/17 at 16:00 Trimethoprim/ Sulfamethoxazole/ Dextrose (Bactrim/D5W) 525 ml @ 343.333 mls/hr Q8 IVPB Last administered on 01/28/17 06:24; Admin Dose 343.333 MLS/HR; Start 01/19/17 at 13:30 Metoprolol Succinate 50 mg 50 mg QHS PO Last administered on 01/26/17 20:03; Admin Dose 50 MG; Start 01/21/17 at 21:00 Hydromorphone HCl/ Dextrose (Dilaudid/D5W) 50 ml @ 2 mls/hr TITRATE IV Last administered on 01/28/17 01:00; Admin Dose 2 MLS/HR; Start 01/23/17 at 16:30 Ergocalciferol (Drisdol) 50,000 unit We@09 PO Last administered on 01/25/17 08 :39; Admin Dose 50,000 UNIT; Start 01/25/17 at 09:00 Calcium Carbonate 1.25 gm 1.25 gm BID PO Last administered on 01/28/17 09:23; Admin Dose 1.25 GM; Start 01/24/17 at 21:00 Sodium Chloride (NS) 1,000 ml @ 40 mls/hr Q24H IV Last administered on 14:22; Admin Dose 40 MLS/HR; Start 01/24/17 at 16:30 Pantoprazole (Protonix Tab) 40 mg DAILY@06 PO Last administered on 01/28/17 05 :31; Admin Dose 40 MG; Start 01/26/17 at 06:00 Hydromorphone HCl (Dilaudid) 1 mg Q2 PRN IV PAIN Last administered on 09:26; Admin Dose 1 MG; Start 01/25/17 at 21:00 Furosemide (Lasix) 20 mg DAILY PO Last administered on 01/28/17 09:23; Admin Dose 20 MG; Start 01/27/17 at 09:00; Stop 01/29/17 at 09:00 YOLY NASCIMENTO MD Jan 28, 2017 10:22
--- NOTE | 2017-01-28 12:18 | PN ---
Date/Time of Note Date/Time of Note DATE: 01/28/17 TIME: 12:16 Assessment/Plan VTE Prophylaxis VTE Prophylaxis Intervention: SCD's Lines/Catheters IV Catheter Type (from Nrs): PICC Line Central line still needed: Yes Urinary Cath still in place: No Assessment/Plan Assessment/Plan [facility] HCIS Progress Note Adult Patient Name: Jacobo Alcaraz Unit Number: [id number] Date of : 1985 Patient Status: Admitted Inpatient Attending Doctor: Ok Jordan MD Date/Time of Note Date/Time of Note Date/Time of Note DATE: 01/27/17 TIME: 17:51 Assessment/Plan Assessment/Plan VTE Prophylaxis VTE Prophylaxis Intervention: SCD's Lines/Catheters IV Catheter Type (from Nrsg): PICC Line Central line still needed: Yes Urinary Cath still in place: No Subjective Subjective 24 Hr Interval Summary Free Text/Dictation Assessment/Plan Assessment/Plan Assessment/Plan * Anemia * Acute pancreatitis, etiology unclear * Mild abnormality liver function tests with no evidence of biliary pathology * Anaplastic B-cell lymphoma/aggressive behavior * Sepsis/pneumonia/improved Plan: * continue present management * pain control * Advance diet as tolerated * Monitor hemoglobin and hematocrit daily * Continue monitor lipase and abdominal pain Free Text/Dictation * Course reviewed with RN * patient seen and examined * tolerating clear liquid no vomiting * Still some epigastric abdominal pain * Wishes to try solid food Exam Constitutional: alert, frail Neck: non-tender, supple Respiratory: diminished breath sounds, normal air movement Cardiovascular: nl pulses, regular rate and rhythm Gastrointestinal: distended, soft, mild epigastric tenderness No rebound or guarding Musculoskeletal: muscle weakness Extremities: edema, pitting pedal edema Neurological: nl mental status, nl speech Skin: nl turgor, No rash or lesions Lymph: nl lymph nodes Exam/Review of Systems Vital Signs Vitals Vital Signs Date Time Temp Pulse Resp B/P Pulse Ox O2 Delivery O2 Flow Rate FiO2 01/28/17 11:18 97.5 122 19 135/63 100 01/28/17 09:03 Nasal Cannula 2.0 01/25/17 20:59 Intake and Output 01/27/17 01/27/17 01/28/17 15:00 23:00 07:00 Intake Total 1660 ml 800 ml Output Total 4200 ml 3000 ml Balance -2540 ml -2200 ml Results Result Diagram: 01/25/17 0500 01/28/17 0626 Results 24 hrs Laboratory Tests Test 01/28/17 06:26 Sodium Level 133 L Potassium Level 4.3 Chloride Level 92 L Carbon Dioxide Level 29 Anion Gap 16 Blood Urea Nitrogen 3 L Creatinine 0.36 L Glucose Level 96 Calcium Level 8.7 Phosphorus Level 3.2 Magnesium Level 1.8 Medications Medications Current Medications Docusate Sodium (Colace) 100 mg Q12H PRN PO CONSTIPATION Last administered on 10:46; Admin Dose 100 MG; Start 01/09/17 at 19:30 Magnesium Hydroxide (Milk Of Mag) 30 ml DAILY PRN PO CONSTIPATION; Start at 19:30 Sodium Biphosphate/ Sodium Phosphate (Fleet Enema) 133 ml DAILY PRN [place] CONSTIPATION; Start 01/09/17 at 19:30 Heparin Sodium (Porcine) 5000 unit 5,000 unit Q12 SC Last administered on 09:43; Admin Dose 5,000 UNIT; Start 01/09/17 at 21:00; Status Future Hold Piperacillin Sod/ Tazobactam Sod (Zosyn 3.375gm/ 100 ml (Pmx)) 100 ml @ 200 mls /hr Q6 IVPB Last administered on 01/28/17 05:31; Admin Dose 200 MLS/HR; Start 01/10/17 at 00:00 Nitroglycerin (Nitroglycerin (Sl Tab) 0.4 Mg) 1 tab Q5M PRN SL ANGINA; Start at 19:30 Miscellaneous Information (Pending [facility] Order For Wound Care) This patient aranda... PRN PRN XX WOUND CARE; Start 01/10/17 at 03:30 Ondansetron HCl 4 mg 4 mg Q6 IV Last administered on 01/28/17 12:12; Admin Dose 4 MG; Start 01/10/17 at 15:30 Acetaminophen (Ofirmev 1000mg/ 100ml Iv) 100 ml @ 400 mls/hr Q6 IVPB Last administered on 01/28/17 12:10; Admin Dose 400 MLS/HR; Start 01/10/17 at 16:30 IV Flush (NS 10 ml) 10 ml PRN PRN IV IV PROTOCOL; Start 01/10/17 at 20:30 Prednisone 10 mg 10 mg DAILY PO Last administered on 01/28/17 09:22; Admin Dose 10 MG; Start 01/15/17 at 09:00 Levofloxacin/ Dextrose 150 ml @ 100 mls/hr Q24H IVPB Last administered on 01/27 16:07; Admin Dose 100 MLS/HR; Start 01/18/17 at 16:00 Trimethoprim/ Sulfamethoxazole/ Dextrose (Bactrim/D5W) 525 ml @ 343.333 mls/hr Q8 IVPB Last administered on 01/28/17 06:24; Admin Dose 343.333 MLS/HR; Start 01/19/17 at 13:30 Metoprolol Succinate 50 mg 50 mg QHS PO Last administered on 01/26/17 20:03; Admin Dose 50 MG; Start 01/21/17 at 21:00 Hydromorphone HCl/ Dextrose (Dilaudid/D5W) 50 ml @ 2 mls/hr TITRATE IV Last administered on 01/28/17 01:00; Admin Dose 2 MLS/HR; Start 01/23/17 at 16:30 Ergocalciferol (Drisdol) 50,000 unit We@09 PO Last administered on 01/25/17 08 :39; Admin Dose 50,000 UNIT; Start 01/25/17 at 09:00 Calcium Carbonate 1.25 gm 1.25 gm BID PO Last administered on 01/28/17 09:23; Admin Dose 1.25 GM; Start 01/24/17 at 21:00 Sodium Chloride (NS) 1,000 ml @ 40 mls/hr Q24H IV Last administered on 14:22; Admin Dose 40 MLS/HR; Start 01/24/17 at 16:30 Pantoprazole (Protonix Tab) 40 mg DAILY@06 PO Last administered on 01/28/17 05 :31; Admin Dose 40 MG; Start 01/26/17 at 06:00 Hydromorphone HCl (Dilaudid) 1 mg Q2 PRN IV PAIN Last administered on 12:11; Admin Dose 1 MG; Start 01/25/17 at 21:00 Furosemide (Lasix) 20 mg DAILY PO Last administered on 01/28/17 09:23; Admin Dose 20 MG; Start 01/27/17 at 09:00; Stop 01/29/17 at 09:00 FAUSTINO VALDIVIA MD Jan 28, 2017 12:18
--- NOTE | 2017-01-28 12:56 | CONS ---
Date/Time of Note Date/Time of Note DATE: 01/28/17 TIME: 12:54 Assessment/Plan Assessment/Plan Additional Assessment/Plan Assessment recommendations; 1. 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 2. Improving hyponatremia. 3. Acute pancreatitis with interval improvement. 4. Status post UTI treatment. 5. Acute renal insufficiency with interval improvement as well. Continue current treatment. Consultation Date/Type/Reason Admit Date/Time Jan 09, 2017 at 19:08 Initial Consult Date 01/15/17 Type of Consultation: Pulmonary Referring Provider: YAO RAHMAN 24 HR Interval Summary Free Text/Dictation Patient condition is stable. Denies any shortness of breath, chest pain. Has been ambulating in the hallway. General exam; young male, appears overweight, currently in no distress. Exam/Review of Systems Vital Signs Vitals Vital Signs Date Time Temp Pulse Resp B/P Pulse Ox O2 Delivery O2 Flow Rate FiO2 01/28/17 12:37 127 01/28/17 11:18 97.5 19 135/63 100 01/28/17 09:03 Nasal Cannula 2.0 01/25/17 20:59 Intake and Output 01/27/17 01/27/17 01/28/17 14:59 22:59 06:59 Intake Total 1660 ml 800 ml Output Total 4200 ml 3000 ml Balance -2540 ml -2200 ml Exam HEENT exam; supple neck, no JVD. No lymphadenopathy. Midline trachea. No thyromegaly. Patient has good dentition. Pharynx is clear. No neck masses. Chest exam; diminished but clear breath sounds. S1-S2 audible, no murmurs. Regular rhythm. Dressing applied over right chest wall wound. Abdomen exam; soft, nontender. No organomegaly. Bowel sounds audible. Extremity exam; no peripheral edema. INSURANCE RISK ANALYST exam; no focal deficit. Results Result Diagram: 01/25/17 0500 01/28/17 0626 Results 24 hrs Laboratory Tests Test 01/28/17 06:26 Sodium Level 133 L Potassium Level 4.3 Chloride Level 92 L Carbon Dioxide Level 29 Anion Gap 16 Blood Urea Nitrogen 3 L Creatinine 0.36 L Glucose Level 96 Calcium Level 8.7 Phosphorus Level 3.2 Magnesium Level 1.8 Medications Medications Current Medications Docusate Sodium (Colace) 100 mg Q12H PRN PO CONSTIPATION Last administered on 10:46; Admin Dose 100 MG; Start 01/09/17 at 19:30 Magnesium Hydroxide (Milk Of Mag) 30 ml DAILY PRN PO CONSTIPATION; Start at 19:30 Sodium Biphosphate/ Sodium Phosphate (Fleet Enema) 133 ml DAILY PRN [place] CONSTIPATION; Start 01/09/17 at 19:30 Heparin Sodium (Porcine) 5000 unit 5,000 unit Q12 SC Last administered on 09:43; Admin Dose 5,000 UNIT; Start 01/09/17 at 21:00; Status Future Hold Piperacillin Sod/ Tazobactam Sod (Zosyn 3.375gm/ 100 ml (Pmx)) 100 ml @ 200 mls /hr Q6 IVPB Last administered on 01/28/17 05:31; Admin Dose 200 MLS/HR; Start 01/10/17 at 00:00 Nitroglycerin (Nitroglycerin (Sl Tab) 0.4 Mg) 1 tab Q5M PRN SL ANGINA; Start at 19:30 [facility]isc[facility] This patient aranda... PRN PRN XX WOUND CARE; Start 01/10/17 at 03:30 Ondansetron HCl 4 mg 4 mg Q6 IV Last administered on 01/28/17 12:12; Admin Dose 4 MG; Start 01/10/17 at 15:30 Acetaminophen (Ofirmev 1000mg/ 100ml Iv) 100 ml @ 400 mls/hr Q6 IVPB Last administered on 01/28/17 12:10; Admin Dose 400 MLS/HR; Start 01/10/17 at 16:30 IV Flush (NS 10 ml) 10 ml PRN PRN IV IV PROTOCOL; Start 01/10/17 at 20:30 Prednisone 10 mg 10 mg DAILY PO Last administered on 01/28/17 09:22; Admin Dose 10 MG; Start 01/15/17 at 09:00 Levofloxacin/ Dextrose 150 ml @ 100 mls/hr Q24H IVPB Last administered on 01/27 16:07; Admin Dose 100 MLS/HR; Start 01/18/17 at 16:00 Trimethoprim/ Sulfamethoxazole/ Dextrose (Bactrim/D5W) 525 ml @ 343.333 mls/hr Q8 IVPB Last administered on 01/28/17 06:24; Admin Dose 343.333 MLS/HR; Start 01/19/17 at 13:30 Metoprolol Succinate 50 mg 50 mg QHS PO Last administered on 01/26/17 20:03; Admin Dose 50 MG; Start 01/21/17 at 21:00 Hydromorphone HCl/ Dextrose (Dilaudid/D5W) 50 ml @ 2 mls/hr TITRATE IV Last administered on 01/28/17 01:00; Admin Dose 2 MLS/HR; Start 01/23/17 at 16:30 Ergocalciferol (Drisdol) 50,000 unit We@09 PO Last administered on 01/25/17 08 :39; Admin Dose 50,000 UNIT; Start 01/25/17 at 09:00 Calcium Carbonate 1.25 gm 1.25 gm BID PO Last administered on 01/28/17 09:23; Admin Dose 1.25 GM; Start 01/24/17 at 21:00 Sodium Chloride (NS) 1,000 ml @ 40 mls/hr Q24H IV Last administered on 14:22; Admin Dose 40 MLS/HR; Start 01/24/17 at 16:30 Pantoprazole (Protonix Tab) 40 mg DAILY@06 PO Last administered on 01/28/17 05 :31; Admin Dose 40 MG; Start 01/26/17 at 06:00 Hydromorphone HCl (Dilaudid) 1 mg Q2 PRN IV PAIN Last administered on 12:11; Admin Dose 1 MG; Start 01/25/17 at 21:00 Furosemide (Lasix) 20 mg DAILY PO Last administered on 01/28/17 09:23; Admin Dose 20 MG; Start 01/27/17 at 09:00; Stop 01/29/17 at 09:00 BONITA JIMENEZ Jan 28, 2017 12:56
--- NOTE | 2017-01-28 14:31 | PN ---
Date/Time of Note Date/Time of Note DATE: 01/28/17 TIME: 14:29 Assessment/Plan Lines/Catheters IV Catheter Type (from Nrsg): PICC Line Sierra in Place (from Nrs): No Assessment/Plan Assessment/Plan [facility] Progress Note Date of Service: 01/28/2017 Place of service: [facility] 5W tele Today's Assessment & Plan: Overall stable with many medical issues. Pancreatitis seems controlled and chemically normal. No indication for acute surgical intervention. No new recommendations. Discussed with patient and answered all questions. 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 Very difficult situation with somewhat poor prognosis. Fortunately no indication for acute surgical intervention. No evidence of infected necrosis that would require drain placement or surgical necrosectomy of the pancreas. Would be important to try and avoid major interventions in order to not delay life-prolonging chemotherapeutic intervention. With above assessment, I've recommended the followin. Continue aggressive medical management 2. Cont full liquid diet and advance slowly 3. Follow GIs recommendations 4. If it would make a difference in management, may consider percutaneous biopsy of segment 6 area of abnormality in the liver 5. Multidisciplinary tumor board presentation and discussions 6. Consideration for clinical trials once improved medically 7. LFT's, amylase and lipase checks tomorrow with labs 8. Will likely benefit from aggressive bowel regimen (some of the pain likely from constipation) 9. Since no further acute surgical issues, will follow from periphery for now and visit as needed Thank you very much for having me involved in the care of this very pleasant patient and wonderful family. If you have any questions, please feel free to contact me at [phone]. Nature of presenting problem: High severity Please note that, given the extensive number of diagnoses or management options , the extensive amount and/or complexity of data needed to be reviewed, and high risk of complications and/or morbidity or mortality, this qualifies as high complexity type of decision-making. Disclaimer: Inadvertent spelling and grammatical errors are likely due to EHR/ dictation software use and do not reflect on the quality of delivered patient care. Also, please note that the electronic time recorded on this node does not necessarily reflect the actual time of the visit. 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 Status post CT-guided left flank subcutaneous nodule biopsy [facility] 01/12/2017. Comorbidities: 1. BMI 40.7 2. Small right pleural effusion with atelectasis and right lung base pneumonia. 3. Large B cell anaplastic lymphoma; status post chemo 1 month prior to presentation 4. Sepsis 5. Hyponatremia 6. Hypokalemia 7. Acute renal injury Subjective: No major events or complaints; reported no major new abd pain and under control with medications; no significant reported nausea or vomiting and no major diarrhea; no sob or cp; + flatus; - BM; minimal to no activity. Objective: Vitals: See below I's & O's: See below Exam: GENERAL: On exam, the patient was lying in bed and appeared to be comfortable and in no acute distress. Diaphoretic. ABDOMEN: Soft, minimal to no tenderness and nondistended. There are no peritoneal signs or guarding. SKIN: Skin appears to be pink and feels warm to touch. NEUROLOGIC: Patient is awake, alert, and follows commands appropriately. Labs: See below Exam/Review of Systems Vital Signs Vitals Vital Signs Date Time Temp Pulse Resp B/P Pulse Ox O2 Delivery O2 Flow Rate FiO2 01/28/17 14:10 119 20 98 Nasal Cannula 2.0 01/28/17 11:18 97.5 135/63 01/25/17 20:59 Intake and Output 01/27/17 01/27/17 01/28/17 15:00 23:00 07:00 Intake Total 1660 ml 800 ml Output Total 4200 ml 3000 ml Balance -2540 ml -2200 ml Results Result Diagram: 01/25/17 0500 01/28/17 0626 LENKA HERNANDEZ M.D. Jan 28, 2017 14:31
--- NOTE | 2017-01-28 15:58 | PN ---
Date/Time of Note Date/Time of Note DATE: 01/28/17 TIME: 15:57 Assessment/Plan VTE Prophylaxis VTE Prophylaxis Intervention: SCD's Lines/Catheters IV Catheter Type (from Nrsg): PICC Line Central line still needed: Yes Urinary Cath still in place: No Assessment/Plan Chief Complaint/Hosp Course 1. Acute renal injury 2. Right pleural effusion with atelectasis and right lung base pneumonia, resolved. 3. Large B cell anaplastic lymphoma; status post chemo 1 month 4. Sepsis resolving 5. Electrolyte imbalance, better 6. Severe anemia 7. Morbid obesity 8. Skin wounds Problems: Assessment/Plan 1. PT for mobility 2. Continue wound care 3. Continue pain control Subjective 24 Hr Interval Summary Constitutional: no complaints Gastrointestinal: constipation Exam/Review of Systems Vital Signs Vitals Vital Signs Date Time Temp Pulse Resp B/P Pulse Ox O2 Delivery O2 Flow Rate FiO2 01/28/17 15:43 98.0 109 18 114/60 97 01/28/17 14:10 Nasal Cannula 2.0 01/25/17 20:59 Intake and Output 01/27/17 01/27/17 01/28/17 15:00 23:00 07:00 Intake Total 1660 ml 800 ml Output Total 4200 ml 3000 ml Balance -2540 ml -2200 ml Exam Constitutional: alert, oriented Respiratory: diminished breath sounds Cardiovascular: regular rate and rhythm Results Result Diagram: 01/25/17 0500 01/28/17 0626 Results 24 hrs Laboratory Tests Test 01/28/17 06:26 Sodium Level 133 L Potassium Level 4.3 Chloride Level 92 L Carbon Dioxide Level 29 Anion Gap 16 Blood Urea Nitrogen 3 L Creatinine 0.36 L Glucose Level 96 Calcium Level 8.7 Phosphorus Level 3.2 Magnesium Level 1.8 Medications Medications Current Medications Docusate Sodium (Colace) 100 mg Q12H PRN PO CONSTIPATION Last administered on 10:46; Admin Dose 100 MG; Start 01/09/17 at 19:30 Magnesium Hydroxide (Milk Of Mag) 30 ml DAILY PRN PO CONSTIPATION; Start at 19:30 Sodium Biphosphate/ Sodium Phosphate (Fleet Enema) 133 ml DAILY PRN [place] CONSTIPATION; Start 01/09/17 at 19:30 Heparin Sodium (Porcine) 5000 unit 5,000 unit Q12 SC Last administered on 09:43; Admin Dose 5,000 UNIT; Start 01/09/17 at 21:00; Status Future Hold Piperacillin Sod/ Tazobactam Sod (Zosyn 3.375gm/ 100 ml (Pmx)) 100 ml @ 200 mls /hr Q6 IVPB Last administered on 01/28/17 12:54; Admin Dose 200 MLS/HR; Start 01/10/17 at 00:00 Nitroglycerin (Nitroglycerin (Sl Tab) 0.4 Mg) 1 tab Q5M PRN SL ANGINA; Start at 19:30 Miscellaneous Information (Pending [facility] Order For Wound Care) This patient aranda... PRN PRN XX WOUND CARE; Start 01/10/17 at 03:30 Ondansetron HCl 4 mg 4 mg Q6 IV Last administered on 01/28/17 12:12; Admin Dose 4 MG; Start 01/10/17 at 15:30 Acetaminophen (Ofirmev 1000mg/ 100ml Iv) 100 ml @ 400 mls/hr Q6 IVPB Last administered on 01/28/17 12:10; Admin Dose 400 MLS/HR; Start 01/10/17 at 16:30 IV Flush (NS 10 ml) 10 ml PRN PRN IV IV PROTOCOL; Start 01/10/17 at 20:30 Prednisone 10 mg 10 mg DAILY PO Last administered on 01/28/17 09:22; Admin Dose 10 MG; Start 01/15/17 at 09:00 Levofloxacin/ Dextrose 150 ml @ 100 mls/hr Q24H IVPB Last administered on 01/27 16:07; Admin Dose 100 MLS/HR; Start 01/18/17 at 16:00 Trimethoprim/ Sulfamethoxazole/ Dextrose (Bactrim/D5W) 525 ml @ 343.333 mls/hr Q8 IVPB Last administered on 01/28/17 14:58; Admin Dose 343.333 MLS/HR; Start 01/19/17 at 13:30 Metoprolol Succinate 50 mg 50 mg QHS PO Last administered on 01/26/17 20:03; Admin Dose 50 MG; Start 01/21/17 at 21:00 Hydromorphone HCl/ Dextrose (Dilaudid/D5W) 50 ml @ 2 mls/hr TITRATE IV Last administered on 01/28/17 01:00; Admin Dose 2 MLS/HR; Start 01/23/17 at 16:30 Ergocalciferol (Drisdol) 50,000 unit We@09 PO Last administered on 01/25/17 08 :39; Admin Dose 50,000 UNIT; Start 01/25/17 at 09:00 Calcium Carbonate 1.25 gm 1.25 gm BID PO Last administered on 01/28/17 09:23; Admin Dose 1.25 GM; Start 01/24/17 at 21:00 Sodium Chloride (NS) 1,000 ml @ 40 mls/hr Q24H IV Last administered on 14:22; Admin Dose 40 MLS/HR; Start 01/24/17 at 16:30 Pantoprazole (Protonix Tab) 40 mg DAILY@06 PO Last administered on 01/28/17 05 :31; Admin Dose 40 MG; Start 01/26/17 at 06:00 Hydromorphone HCl (Dilaudid) 1 mg Q2 PRN IV PAIN Last administered on 12:11; Admin Dose 1 MG; Start 01/25/17 at 21:00 Furosemide (Lasix) 20 mg DAILY PO Last administered on 01/28/17 09:23; Admin Dose 20 MG; Start 01/27/17 at 09:00; Stop 01/29/17 at 09:00 MOISES WEAVER Jan 28, 2017 15:58
[2017-01-28] MEDS ORDERED: LEVALBUTEROL (NEB) 0.63 MG/3 ML AMP HHN PRN (16:00)
[2017-01-28] MEDS ORDERED: IPRATROPIUM (NEB) 0.5 MG/2.5 ML AMP HHN PRN (16:00)
[2017-01-28] MEDS: LEVOFLOXACIN 750MG/D5W (PMX) 150 ML IVPB SCH (16:28)
--- NOTE | 2017-01-28 16:33 | CONS ---
Date/Time of Note Date/Time of Note DATE: 01/28/17 TIME: 16:32 Assessment/Plan Assessment/Plan Chief Complaint/Hosp Course SUBJECTIVE DATA: No acute changes overnight. Patient is alert, feels good, no fevers MICROBIOLOGY: Blood cultures remain negative. Urine culture negative. Sputum culture growing gram-negative rods. Right lower extremity wound culture grew Citrobacter Freundii , Enterococcus species, Corynebacterium species, and Stenotrophomonas maltophilia. Sputum cx + MDR Kleb INDWELLINGS: PICC line. ANTIMICROBIALS: Antimicrobials: Bactrim, Levaquin, Zosyn, colistin inhalation. PHYSICAL EXAMINATION: This is an obese, chronically ill- appearing, middle aged man who is awake, in no distress. HEENT: Head atraumatic, normocephalic. Sclerae anicteric. Buccal mucosa dry. NECK: Obese. CHEST: Rise symmetrical. Breath sounds diminished at the bases. HEART: S1, S2. Tachycardic, regular. ABDOMEN: Obese, soft, bowel sounds present. EXTREMITIES: Without cyanosis, bilateral edema with multiple unstageable wounds. SKIN: Generalized edema with multiple necrotic wounds. ASSESSMENT: 1. Systemic inflammatory response syndrome with on and off fevers. So far blood and urine culture had been negative. 2. Status post urinary tract infection. 3. Multiple necrotic wounds with wound culture growing multidrug resistant organisms, on antibiotics. 4. Severe pancreatitis, slowly resolving. 5. Severe hypocalcemia, Endocrinology follows. 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 7. Pulmonary nodular opacities consistent with metastatic lymphoma, rule out out pneumonia. 8. Pancytopenia. PLAN: Remains stable, continue present care, antibiotics, local wound care, follow recommendations of consultants. DW staff/pt Problems: Consultation Date/Type/Reason Admit Date/Time Jan 09, 2017 at 19:08 Initial Consult Date 01/15/17 Type of Consultation: id Referring Provider: YAO RAHMAN Exam/Review of Systems Vital Signs Vitals Vital Signs Date Time Temp Pulse Resp B/P Pulse Ox O2 Delivery O2 Flow Rate FiO2 01/28/17 15:43 98.0 109 18 114/60 97 01/28/17 14:10 Nasal Cannula 2.0 01/25/17 20:59 Intake and Output 01/27/17 01/27/17 01/28/17 15:00 23:00 07:00 Intake Total 1660 ml 800 ml Output Total 4200 ml 3000 ml Balance -2540 ml -2200 ml Results Result Diagram: 01/25/17 0500 01/28/17 0626 Results 24 hrs Laboratory Tests Test 01/28/17 06:26 Sodium Level 133 L Potassium Level 4.3 Chloride Level 92 L Carbon Dioxide Level 29 Anion Gap 16 Blood Urea Nitrogen 3 L Creatinine 0.36 L Glucose Level 96 Calcium Level 8.7 Phosphorus Level 3.2 Magnesium Level 1.8 Medications Medications Current Medications Docusate Sodium (Colace) 100 mg Q12H PRN PO CONSTIPATION Last administered on 10:46; Admin Dose 100 MG; Start 01/09/17 at 19:30 Magnesium Hydroxide (Milk Of Mag) 30 ml DAILY PRN PO CONSTIPATION; Start at 19:30 Sodium Biphosphate/ Sodium Phosphate (Fleet Enema) 133 ml DAILY PRN [place] CONSTIPATION; Start 01/09/17 at 19:30 Heparin Sodium (Porcine) 5000 unit 5,000 unit Q12 SC Last administered on 09:43; Admin Dose 5,000 UNIT; Start 01/09/17 at 21:00; Status Future Hold Piperacillin Sod/ Tazobactam Sod (Zosyn 3.375gm/ 100 ml (Pmx)) 100 ml @ 200 mls /hr Q6 IVPB Last administered on 01/28/17 12:54; Admin Dose 200 MLS/HR; Start 01/10/17 at 00:00 Nitroglycerin (Nitroglycerin (Sl Tab) 0.4 Mg) 1 tab Q5M PRN SL ANGINA; Start at 19:30 [facility] This patient aranda... PRN PRN XX WOUND CARE; Start 01/10/17 at 03:30 Ondansetron HCl 4 mg 4 mg Q6 IV Last administered on 01/28/17 12:12; Admin Dose 4 MG; Start 01/10/17 at 15:30 Acetaminophen (Ofirmev 1000mg/ 100ml Iv) 100 ml @ 400 mls/hr Q6 IVPB Last administered on 01/28/17 12:10; Admin Dose 400 MLS/HR; Start 01/10/17 at 16:30 IV Flush (NS 10 ml) 10 ml PRN PRN IV IV PROTOCOL; Start 01/10/17 at 20:30 Prednisone 10 mg 10 mg DAILY PO Last administered on 01/28/17 09:22; Admin Dose 10 MG; Start 01/15/17 at 09:00 Levofloxacin/ Dextrose 150 ml @ 100 mls/hr Q24H IVPB Last administered on 01/28 16:28; Admin Dose 100 MLS/HR; Start 01/18/17 at 16:00 Trimethoprim/ Sulfamethoxazole/ Dextrose (Bactrim/D5W) 525 ml @ 343.333 mls/hr Q8 IVPB Last administered on 01/28/17 14:58; Admin Dose 343.333 MLS/HR; Start 01/19/17 at 13:30 Metoprolol Succinate 50 mg 50 mg QHS PO Last administered on 01/26/17 20:03; Admin Dose 50 MG; Start 01/21/17 at 21:00 Hydromorphone HCl/ Dextrose (Dilaudid/D5W) 50 ml @ 2 mls/hr TITRATE IV Last administered on 01/28/17 01:00; Admin Dose 2 MLS/HR; Start 01/23/17 at 16:30 Ergocalciferol (Drisdol) 50,000 unit We@09 PO Last administered on 01/25/17 08 :39; Admin Dose 50,000 UNIT; Start 01/25/17 at 09:00 Calcium Carbonate (Oyster Shell Calcium) 1.25 gm BID PO Last administered on 09:23; Admin Dose 1.25 GM; Start 01/24/17 at 21:00 Pantoprazole (Protonix Tab) 40 mg DAILY@06 PO Last administered on 01/28/17 05 :31; Admin Dose 40 MG; Start 01/26/17 at 06:00 Hydromorphone HCl (Dilaudid) 1 mg Q2 PRN IV PAIN Last administered on 16:28; Admin Dose 1 MG; Start 01/25/17 at 21:00 Furosemide (Lasix) 20 mg DAILY PO Last administered on 01/28/17 09:23; Admin Dose 20 MG; Start 01/27/17 at 09:00; Stop 01/29/17 at 09:00 DEENA LOCO NP Jan 28, 2017 16:33
--- NOTE | 2017-01-28 16:37 | CONS ---
Date/Time of Note Date/Time of Note DATE: 01/28/17 TIME: 16:34 Assessment/Plan Assessment/Plan Additional Assessment/Plan 1. Edema: ? EF 2. Right pleural effusion with atelectasis and right lung base pneumonia, resolved. 3. Large B cell anaplastic lymphoma; status post chemo 1 month 4. Sepsis resolving 5. Electrolyte imbalance, better 6. Severe anemia 7. Morbid obesity 8. Skin wounds Consultation Date/Type/Reason Admit Date/Time Jan 09, 2017 at 19:08 Initial Consult Date 01/15/17 Type of Consultation: id Referring Provider: YAO RAHMAN 24 HR Interval Summary Free Text/Dictation c/o leg edema ROS: No fever, no chills, no nausea, no vomiting, no diarrhea/constipation No recent weight changes No edema, no palpitations No chest pain, no PND, no SOB No dizziness, blurred vision No thirst, no heat or cold intolerance Exam/Review of Systems Vital Signs Vitals Vital Signs Date Time Temp Pulse Resp B/P Pulse Ox O2 Delivery O2 Flow Rate FiO2 01/28/17 15:43 98.0 109 18 114/60 97 01/28/17 14:10 Nasal Cannula 2.0 01/25/17 20:59 Intake and Output 01/27/17 01/27/17 01/28/17 15:00 23:00 07:00 Intake Total 1660 ml 800 ml Output Total 4200 ml 3000 ml Balance -2540 ml -2200 ml Exam General: WN/WD HEENT: Unicetric/atraumatic/ no assymetry NECK: JVD not elevated, no thyromegaly, carotids revealed normal upstrokes Lymph: no lymphadenopathy HEART: regular with no S3, I/ systolic murmur at apex LUNGS: clear ABD: soft, NT, ND, +BS, no organomegaly Neuro: no deficit SKIN: no leisons EXT: 3 +edema Results Result Diagram: 01/25/17 0500 01/28/17 0626 Results 24 hrs Laboratory Tests Test 01/28/17 06:26 Sodium Level 133 L Potassium Level 4.3 Chloride Level 92 L Carbon Dioxide Level 29 Anion Gap 16 Blood Urea Nitrogen 3 L Creatinine 0.36 L Glucose Level 96 Calcium Level 8.7 Phosphorus Level 3.2 Magnesium Level 1.8 Medications Medications Current Medications Docusate Sodium (Colace) 100 mg Q12H PRN PO CONSTIPATION Last administered on 10:46; Admin Dose 100 MG; Start 01/09/17 at 19:30 Magnesium Hydroxide (Milk Of Mag) 30 ml DAILY PRN PO CONSTIPATION; Start at 19:30 Sodium Biphosphate/ Sodium Phosphate (Fleet Enema) 133 ml DAILY PRN [place] CONSTIPATION; Start 01/09/17 at 19:30 Heparin Sodium (Porcine) 5000 unit 5,000 unit Q12 SC Last administered on 09:43; Admin Dose 5,000 UNIT; Start 01/09/17 at 21:00; Status Future Hold Piperacillin Sod/ Tazobactam Sod (Zosyn 3.375gm/ 100 ml (Pmx)) 100 ml @ 200 mls /hr Q6 IVPB Last administered on 01/28/17 12:54; Admin Dose 200 MLS/HR; Start 01/10/17 at 00:00 Nitroglycerin (Nitroglycerin (Sl Tab) 0.4 Mg) 1 tab Q5M PRN SL ANGINA; Start at 19:30 [facility] This patient aranda... PRN PRN XX WOUND CARE; Start 01/10/17 at 03:30 Ondansetron HCl 4 mg 4 mg Q6 IV Last administered on 01/28/17 12:12; Admin Dose 4 MG; Start 01/10/17 at 15:30 Acetaminophen (Ofirmev 1000mg/ 100ml Iv) 100 ml @ 400 mls/hr Q6 IVPB Last administered on 01/28/17 12:10; Admin Dose 400 MLS/HR; Start 01/10/17 at 16:30 IV Flush (NS 10 ml) 10 ml PRN PRN IV IV PROTOCOL; Start 01/10/17 at 20:30 Prednisone 10 mg 10 mg DAILY PO Last administered on 01/28/17 09:22; Admin Dose 10 MG; Start 01/15/17 at 09:00 Levofloxacin/ Dextrose 150 ml @ 100 mls/hr Q24H IVPB Last administered on 01/28 16:28; Admin Dose 100 MLS/HR; Start 01/18/17 at 16:00 Trimethoprim/ Sulfamethoxazole/ Dextrose (Bactrim/D5W) 525 ml @ 343.333 mls/hr Q8 IVPB Last administered on 01/28/17 14:58; Admin Dose 343.333 MLS/HR; Start 01/19/17 at 13:30 Metoprolol Succinate 50 mg 50 mg QHS PO Last administered on 01/26/17 20:03; Admin Dose 50 MG; Start 01/21/17 at 21:00 Hydromorphone HCl/ Dextrose (Dilaudid/D5W) 50 ml @ 2 mls/hr TITRATE IV Last administered on 01/28/17 01:00; Admin Dose 2 MLS/HR; Start 01/23/17 at 16:30 Ergocalciferol (Drisdol) 50,000 unit We@09 PO Last administered on 01/25/17 08 :39; Admin Dose 50,000 UNIT; Start 01/25/17 at 09:00 Calcium Carbonate (Oyster Shell Calcium) 1.25 gm BID PO Last administered on 09:23; Admin Dose 1.25 GM; Start 01/24/17 at 21:00 Pantoprazole (Protonix Tab) 40 mg DAILY@06 PO Last administered on 01/28/17 05 :31; Admin Dose 40 MG; Start 01/26/17 at 06:00 Hydromorphone HCl (Dilaudid) 1 mg Q2 PRN IV PAIN Last administered on 16:28; Admin Dose 1 MG; Start 01/25/17 at 21:00 Furosemide (Lasix) 20 mg DAILY PO Last administered on 01/28/17 09:23; Admin Dose 20 MG; Start 01/27/17 at 09:00; Stop 01/29/17 at 09:00 ARGENIS GARCIA MD Jan 28, 2017 16:37
[2017-01-28] MEDS: METOPROLOL (XL) 25 MG TAB PO SCH (20:25)
--- NOTE | 2017-01-28 22:11 | CONS ---
Date/Time of Note Date/Time of Note DATE: 01/28/17 TIME: 22:11 Assessment/Plan Assessment/Plan Chief Complaint/Hosp Course Anaplastic B-cell Lymphoma pt was dx'd with lymphoma a year and half ago , it turned into an aggressive type. His last chemo was a month ago and hadn't had since due to experiencing similar presenting symptoms. record from pt's oncologist Kain Wisdom - Kenji Left flank mass, CT-guided core needle biopsies with touch imprints: Completely necrotic tissue, insufficient for pathologic evaluation. PER PT REPORT- reportedly scheduled for change in therapy due to what appears to be lack of adequate response LEUKOPENIA IN PT WITH HNL ON CHEMO AND WITH SEPTIC PICTURE MONITOR BLOOD COUNT CLOSELY POST NEUPOGEN WBC- FLUCTUATING , NOT IN NEUTROPENIA LEVEL AT PRESENT PANCYTOPENIA POST CHEMO CONT TO MONITOR PRBC NEEDED Sepsis 2/2 PNA - abx, IVF - f/u culture results - ID pancreatitis. Abd Pain with N/V: 2/2 known lymphoma - pain mgmt - Anti-emetics Hyponatremia and Hypokalemia: 2/2 vomiting - NS IVF - replete K+ as needed Presumed RAMU: likely pre-renal 2/2 vomiting - cont IVF for now Problems: Consultation Date/Type/Reason Admit Date/Time Jan 09, 2017 at 19:08 Initial Consult Date 01/10/17 Type of Consultation: [facility] Referring Provider: YAO RAHMAN 24 HR Interval Summary Free Text/Dictation ALL NOTED Exam/Review of Systems Vital Signs Vitals Vital Signs Date Time Temp Pulse Resp B/P Pulse Ox O2 Delivery O2 Flow Rate FiO2 01/28/17 20:44 114 22 97 Nasal Cannula 2.0 01/28/17 15:43 98.0 114/60 01/25/17 20:59 Intake and Output 01/27/17 01/27/17 01/28/17 15:00 23:00 07:00 Intake Total 1660 ml 800 ml Output Total 4200 ml 3000 ml Balance -2540 ml -2200 ml Exam This is an obese, chronically ill- appearing, middle aged man who is awake, in no distress. HEENT: Head atraumatic, normocephalic. Sclerae anicteric. Buccal mucosa dry. NECK: Obese. CHEST: Rise symmetrical. Breath sounds diminished at the bases. HEART: S1, S2. Tachycardic, regular. ABDOMEN: Obese, soft, bowel sounds present. EXTREMITIES: Without cyanosis, bilateral edema with multiple unstageable wounds. SKIN: Generalized edema with multiple necrotic wounds. Results Result Diagram: 01/25/17 0500 01/28/17 0626 Results 24 hrs Laboratory Tests Test 01/28/17 06:26 Sodium Level 133 L Potassium Level 4.3 Chloride Level 92 L Carbon Dioxide Level 29 Anion Gap 16 Blood Urea Nitrogen 3 L Creatinine 0.36 L Glucose Level 96 Calcium Level 8.7 Phosphorus Level 3.2 Magnesium Level 1.8 Medications Medications Current Medications Docusate Sodium (Colace) 100 mg Q12H PRN PO CONSTIPATION Last administered on 10:46; Admin Dose 100 MG; Start 01/09/17 at 19:30 Magnesium Hydroxide (Milk Of Mag) 30 ml DAILY PRN PO CONSTIPATION; Start at 19:30 Sodium Biphosphate/ Sodium Phosphate (Fleet Enema) 133 ml DAILY PRN [place] CONSTIPATION; Start 01/09/17 at 19:30 Heparin Sodium (Porcine) 5000 unit 5,000 unit Q12 SC Last administered on 09:43; Admin Dose 5,000 UNIT; Start 01/09/17 at 21:00; Status Future Hold Piperacillin Sod/ Tazobactam Sod (Zosyn 3.375gm/ 100 ml (Pmx)) 100 ml @ 200 mls /hr Q6 IVPB Last administered on 01/28/17 21:08; Admin Dose 200 MLS/HR; Start 01/10/17 at 00:00 Nitroglycerin (Nitroglycerin (Sl Tab) 0.4 Mg) 1 tab Q5M PRN SL ANGINA; Start at 19:30 Miscellaneous Information (Pending [facility] Order For Wound Care) This patient aranda... PRN PRN XX WOUND CARE; Start 01/10/17 at 03:30 Ondansetron HCl 4 mg 4 mg Q6 IV Last administered on 01/28/17 20:17; Admin Dose 4 MG; Start 01/10/17 at 15:30 Acetaminophen (Ofirmev 1000mg/ 100ml Iv) 100 ml @ 400 mls/hr Q6 IVPB Last administered on 01/28/17 20:20; Admin Dose 400 MLS/HR; Start 01/10/17 at 16:30 IV Flush (NS 10 ml) 10 ml PRN PRN IV IV PROTOCOL; Start 01/10/17 at 20:30 Prednisone 10 mg 10 mg DAILY PO Last administered on 01/28/17 09:22; Admin Dose 10 MG; Start 01/15/17 at 09:00 Levofloxacin/ Dextrose 150 ml @ 100 mls/hr Q24H IVPB Last administered on 01/28 16:28; Admin Dose 100 MLS/HR; Start 01/18/17 at 16:00 Trimethoprim/ Sulfamethoxazole/ Dextrose (Bactrim/D5W) 525 ml @ 343.333 mls/hr Q8 IVPB Last administered on 01/28/17 14:58; Admin Dose 343.333 MLS/HR; Start 01/19/17 at 13:30 Metoprolol Succinate 50 mg 50 mg QHS PO Last administered on 01/28/17 20:25; Admin Dose 50 MG; Start 01/21/17 at 21:00 Hydromorphone HCl/ Dextrose (Dilaudid/D5W) 50 ml @ 2 mls/hr TITRATE IV Last administered on 01/28/17 01:00; Admin Dose 2 MLS/HR; Start 01/23/17 at 16:30 Ergocalciferol (Drisdol) 50,000 unit We@09 PO Last administered on 01/25/17 08 :39; Admin Dose 50,000 UNIT; Start 01/25/17 at 09:00 Calcium Carbonate (Oyster Shell Calcium) 1.25 gm BID PO Last administered on 20:17; Admin Dose 1.25 GM; Start 01/24/17 at 21:00 Pantoprazole (Protonix Tab) 40 mg DAILY@06 PO Last administered on 01/28/17 05 :31; Admin Dose 40 MG; Start 01/26/17 at 06:00 Hydromorphone HCl (Dilaudid) 1 mg Q2 PRN IV PAIN Last administered on 20:13; Admin Dose 1 MG; Start 01/25/17 at 21:00 Furosemide (Lasix) 20 mg DAILY PO Last administered on 01/28/17 09:23; Admin Dose 20 MG; Start 01/27/17 at 09:00; Stop 01/29/17 at 09:00 MOIRA BIRMINGHAM MD Jan 28, 2017 22:11
--- NOTE | 2017-01-28 22:21 | RADRPT ---
PROCEDURE: HIDA scan CLINICAL INDICATION: 31 -year-old patient with abdominal pain. TECHNIQUE: Following the intravenous injection of 8.4 mCi of Tc-99m mebrofenin, multiple images of the abdomen were obtained up to 90 minutes post injection. COMPARISON: No prior studies. FINDINGS: The liver is promptly visualized, demonstrates homogeneous distribution of radionuclide. There is visualization of the common bile duct and gastrointestinal activity within normal time. The gallbladder is not visualized up to 90 minutes post injection. IMPRESSION: 1. Nonvisualization of the gallbladder up to 90 minutes post injection. 2. No evidence of a common bile duct obstruction. RPTAT: QQ .Nancy Lua MD, MD Date Time Electronically viewed and signed by .Nancy Lua MD, on 01/28/2017 22:21 .L/
[2017-01-29] VITALS (12 sets, daily range): BP systolic 103–139; BP diastolic 57–71; PULSE 95–110; RESP 16–21
[2017-01-29] MEDS: HYDROmorphONE 1 MG/ML SYG IV PRN ×6 (00:23→22:56)
[2017-01-29] MEDS: ACETAMINOPHEN 1000MG/100ML IV 100 ML IVPB SCH ×5 (00:23→23:34)
[2017-01-29] MEDS: ONDANSETRON 4 MG INJ IV SCH ×5 (00:24→23:34)
[2017-01-29] MEDS: PIPER-TAZO 3.375 GM IV (PMX) 100 ML IVPB SCH ×5 (00:29→23:34)
[2017-01-29] MEDS: HYDROmorphONE 50 MG in DEXTROSE 5% 45 ML IV SCH (04:40)
[2017-01-29] MEDS: PANTOPRAZOLE (EC) 40 MG TAB PO SCH (05:53)
[2017-01-29] MEDS: TRIMETHOPRIM/SULFAMETHOXAZOLE 25 ML in DEXTROSE 5% 500 ML IVPB SCH ×3 (06:33→21:36)
[2017-01-29 06:38] LABS: ABNORMAL IP MESSAGE 1; BASOPHILS % 0.3 % (0.0-2.0); EOSINOPHILS # 0.1 10^3/ul (0.0-0.5); HEMATOCRIT 29.1 % (42.0-52.0); HEMOGLOBIN 9.3 g/dl (14.0-18.0); LYMPHOCYTES # 0.1 10^3/ul (0.8-2.9); LYMPHOCYTES % 3.6 % (15.0-51.0); MEAN CORPUSCULAR HEMOGLOBIN 27.8 pg (29.0-33.0); MEAN CORPUSCULAR VOLUME 87.1 fl (82.0-101.0); MEAN PLATELET VOLUME 10.5 fl (7.4-10.4); MONOCYTE # 0.3 10^3/ul (0.3-0.9); MONOCYTES % 8.3 % (0.0-11.0); NEUTROPHILS % 83.8 % (39.0-77.0); PLATELET COUNT 155 10^3/UL (140-415); POSITIVE DIFF @See below; RED BLOOD COUNT 3.34 10^6/ul (4.70-6.10); RED CELL DISTRIBUTION WIDTH 17.4 % (11.5-14.5)
[2017-01-29 07:13] LABS: CALCIUM 9.2 mg/dl (8.4-10.2); CREATININE 0.5 mg/dl (0.61-1.24); POTASSIUM 4.2 mmol/L (3.5-5.1)
[2017-01-29] MEDS: COLISTIMETHATE (25 MG/ML INHAL SYG) NEB SCH ×2 (08:00→21:05)
[2017-01-29] MEDS: predniSONE 20 MG TAB PO SCH (09:22)
[2017-01-29] MEDS: CALCIUM CARBONATE 1.25 GM TAB PO SCH ×2 (09:23→20:53)
[2017-01-29] MEDS: FUROSEMIDE 20 MG TAB PO SCH (09:23)
[2017-01-29] MEDS: MAGNESIUM HYDROXIDE 30ML CUP PO PRN (09:33)
--- NOTE | 2017-01-29 10:13 | CONS ---
Date/Time of Note Date/Time of Note DATE: 01/29/17 TIME: 10:02 Assessment/Plan Assessment/Plan Chief Complaint/Hosp Course 31-year-old gentleman with a history of a non-Hodgkin's large B cell anaplastic lymphoma diagnosed roughly 18 months ago. He came into the hospital with abdominal pain but at that time had a low lipase level. At that time his calciums were normal his thyroid function was normal he had on appropriate serum cortisol despite having been on tapering dosages of prednisone as an outpatient. I have contacted [facility] to get the blood test reports. While his serum calcium was 5.3 with a low ionized calcium he had a PTH in the mid 20s. This is an inappropriately low normal PTH in the setting of severe hypocalcemia. This indicates hypo-parathyroidism. The patient informs me there is no prior history of this. Since he has not had neck surgery Problems: (1) Hypovitaminosis D Status: Chronic Comment: Repleted parenterally and orally now (2) Lymphoma, anaplastic large cell, abdomen Status: Chronic Comment: As per hematology (3) Obesity (BMI 30-39.9) Status: Chronic Comment: Noted. He has been on a calorie restriction for some time in the hospital with his abdominal pain. I will asked the staff to reweigh him and entered the new weight (4) Acute pancreatitis Status: Acute Comment: Patient with residual pain but the laboratory testing is not suggestive of active pancreatitis. Continue observation advance diet as tolerated. Please see recommendations from Dr. Carlos Qualifiers: Pancreatitis type: unspecified pancreatitis type Acute pancreatitis complication: uninfected necrosis Qualified Code: K85.91 - Acute pancreatitis with uninfected necrosis, unspecified pancreatitis type (5) Hypocalcemia Status: Acute Comment: Corrected with current therapeutics. Continue observation. Given the stability however I will sign off the case and follow from a distance (6) Hypoparathyroidism, unspecified Status: Acute Comment: The first PTH level reported by calling [facility] was low at the patient's serum calcium was extremely low. This suggest parathyroid insufficiency. However the whole situation is modestly inconsistent. I have repeated the PTH levels and sat on hold waiting for [facility] answer the phone for 15 minutes. Will attempt to track this down to verify whether or not this is an accurate diagnosis or the first specimen was a lab error Consultation Date/Type/Reason Admit Date/Time Jan 09, 2017 at 19:08 Initial Consult Date 01/15/17 Type of Consultation: Endocrinology Reason for Consultation Hypovitaminosis D with hypocalcemia Referring Provider: YAO RAHMAN 24 HR Interval Summary Constitutional: no complaints Detailed Summary Respiratory: no complaints Cardiovascular: no complaints Gastrointestinal: pain Exam/Review of Systems Vital Signs Vitals Vital Signs Date Time Temp Pulse Resp B/P Pulse Ox O2 Delivery O2 Flow Rate FiO2 01/29/17 08:44 95 01/29/17 08:27 98.9 19 107/57 100 01/29/17 08:00 Nasal Cannula 2.0 01/25/17 20:59 Intake and Output 01/28/17 01/28/17 01/29/17 15:00 23:00 07:00 Intake Total 200 ml 950 ml 1325 ml Output Total 3800 ml 2550 ml Balance 200 ml -2850 ml -1225 ml Results No changes in exam Result Diagram: 01/29/17 0559 01/29/17 0559 Results 24 hrs Laboratory Tests Test 01/29/17 05:59 White Blood Count 3.0 L Red Blood Count 3.34 L Hemoglobin 9.3 L Hematocrit 29.1 L Mean Corpuscular Volume 87.1 Mean Corpuscular Hemoglobin 27.8 L Mean Corpuscular Hemoglobin Concent 32.0 Red Cell Distribution Width 17.4 H Platelet Count 155 # Mean Platelet Volume 10.5 H Neutrophils % 83.8 H Lymphocytes % 3.6 L Monocytes % 8.3 Eosinophils % 2.0 Basophils % 0.3 Nucleated Red Blood Cells % 0.0 Neutrophils # (Manual) 3 Lymphocytes # 0.1 L Monocytes # 0.3 Eosinophils # 0.1 Basophils # 0.0 Nucleated Red Blood Cells # 0.0 Sodium Level 134 L Potassium Level 4.2 Chloride Level 88 L Carbon Dioxide Level 32 H Anion Gap 18 H Blood Urea Nitrogen 4 L Creatinine 0.50 L Glucose Level 82 Calcium Level 9.2 Vitamin D 1,25-Dihydroxy < 12.8 L Medications Medications Current Medications Docusate Sodium (Colace) 100 mg Q12H PRN PO CONSTIPATION Last administered on 10:46; Admin Dose 100 MG; Start 01/09/17 at 19:30 Magnesium Hydroxide (Milk Of Mag) 30 ml DAILY PRN PO CONSTIPATION Last administered on 01/29/17 09:33; Admin Dose 30 ML; Start 01/09/17 at 19:30 Sodium Biphosphate/ Sodium Phosphate (Fleet Enema) 133 ml DAILY PRN [place] CONSTIPATION; Start 01/09/17 at 19:30 Heparin Sodium (Porcine) 5000 unit 5,000 unit Q12 SC Last administered on 09:43; Admin Dose 5,000 UNIT; Start 01/09/17 at 21:00; Status Future Hold Piperacillin Sod/ Tazobactam Sod (Zosyn 3.375gm/ 100 ml (Pmx)) 100 ml @ 200 mls /hr Q6 IVPB Last administered on 01/29/17 05:53; Admin Dose 200 MLS/HR; Start 01/10/17 at 00:00 Nitroglycerin (Nitroglycerin (Sl Tab) 0.4 Mg) 1 tab Q5M PRN SL ANGINA; Start at 19:30 [facility] This patient aranda... PRN PRN XX WOUND CARE; Start 01/10/17 at 03:30 Ondansetron HCl 4 mg 4 mg Q6 IV Last administered on 01/29/17 05:53; Admin Dose 4 MG; Start 01/10/17 at 15:30 Acetaminophen (Ofirmev 1000mg/ 100ml Iv) 100 ml @ 400 mls/hr Q6 IVPB Last administered on 01/29/17 05:52; Admin Dose 400 MLS/HR; Start 01/10/17 at 16:30 IV Flush (NS 10 ml) 10 ml PRN PRN IV IV PROTOCOL; Start 01/10/17 at 20:30 Prednisone 10 mg 10 mg DAILY PO Last administered on 01/29/17 09:22; Admin Dose 10 MG; Start 01/15/17 at 09:00 Levofloxacin/ Dextrose 150 ml @ 100 mls/hr Q24H IVPB Last administered on 01/28 16:28; Admin Dose 100 MLS/HR; Start 01/18/17 at 16:00 Trimethoprim/ Sulfamethoxazole/ Dextrose (Bactrim/D5W) 525 ml @ 343.333 mls/hr Q8 IVPB Last administered on 01/29/17 06:33; Admin Dose 343.333 MLS/HR; Start 01/19/17 at 13:30 Metoprolol Succinate 50 mg 50 mg QHS PO Last administered on 01/28/17 20:25; Admin Dose 50 MG; Start 01/21/17 at 21:00 Hydromorphone HCl/ Dextrose (Dilaudid/D5W) 50 ml @ 2 mls/hr TITRATE IV Last administered on 01/29/17 04:40; Admin Dose 2 MLS/HR; Start 01/23/17 at 16:30 Ergocalciferol (Drisdol) 50,000 unit We@09 PO Last administered on 01/25/17 08 :39; Admin Dose 50,000 UNIT; Start 01/25/17 at 09:00 Calcium Carbonate (Oyster Shell Calcium) 1.25 gm BID PO Last administered on 09:23; Admin Dose 1.25 GM; Start 01/24/17 at 21:00 Pantoprazole (Protonix Tab) 40 mg DAILY@06 PO Last administered on 01/29/17 05 :53; Admin Dose 40 MG; Start 01/26/17 at 06:00 Hydromorphone HCl (Dilaudid) 1 mg Q2 PRN IV PAIN Last administered on 09:38; Admin Dose 1 MG; Start 01/25/17 at 21:00 YOLY NASCIMENTO MD Jan 29, 2017 10:13
[2017-01-29] MEDS ORDERED: ALTEPLASE (CATHFLO) 2 MG INJ CATHETER ONE (10:30)
--- NOTE | 2017-01-29 13:15 | PN ---
Date/Time of Note Date/Time of Note DATE: 01/29/17 TIME: 13:14 Assessment/Plan VTE Prophylaxis VTE Prophylaxis Intervention: SCD's Lines/Catheters IV Catheter Type (from [facility]): PICC Line Central line still needed: Yes Urinary Cath still in place: No Assessment/Plan [facility] Patient Name: Jacobo Alcaraz Unit Number: [id number] Date of : 1985 Patient Status: Admitted Inpatient Attending Doctor: Ok Jordan MD Date/Time of Note Date/Time of Note Date/Time of Note DATE: 01/28/17 TIME: 12:16 Assessment/Plan Assessment/Plan VTE Prophylaxis VTE Prophylaxis Intervention: SCD's Lines/Catheters IV Catheter Type (from [facility]): PICC Line Central line still needed: Yes Urinary Cath still in place: No Assessment/Plan Assessment/Plan [facility] HCIS Progress Note Adult Patient Name: Jacobo Alcaraz Unit Number: [id number] Date of : 1985 Patient Status: Admitted Inpatient Attending Doctor: Ok Jordan MD Date/Time of Note Date/Time of Note Date/Time of Note DATE: 01/27/17 TIME: 17:51 Assessment/Plan Assessment/Plan VTE Prophylaxis VTE Prophylaxis Intervention: SCD's Lines/Catheters IV Catheter Type (from [facility]): PICC Line Central line still needed: Yes Urinary Cath still in place: No Subjective Subjective 24 Hr Interval Summary Free Text/Dictation Assessment/Plan Assessment/Plan Assessment/Plan * Anemia * Acute pancreatitis, etiology unclear * Mild abnormality liver function tests with no evidence of biliary pathology * Anaplastic B-cell lymphoma/aggressive behavior * Sepsis/pneumonia/improved Plan: * continue present management * pain control * Monitor hemoglobin and hematocrit daily * Continue monitor lipase and abdominal pain Free Text/Dictation * Course reviewed with RN * patient seen and examined * tolerating diet no vomiting * Still some epigastric abdominal pain Exam Constitutional: alert, frail Neck: non-tender, supple Respiratory: diminished breath sounds, normal air movement Cardiovascular: nl pulses, regular rate and rhythm Gastrointestinal: distended, soft, mild epigastric tenderness No rebound or guarding Musculoskeletal: muscle weakness Extremities: edema, pitting pedal edema Neurological: nl mental status, nl speech Skin: nl turgor, No rash or lesions Lymph: nl lymph nodes Exam/Review of Systems Vital Signs Vitals Vital Signs Date Time Temp Pulse Resp B/P Pulse Ox O2 Delivery O2 Flow Rate FiO2 01/29/17 11:15 98.2 105 139/71 99 01/29/17 08:30 Nasal Cannula 2.0 01/29/17 08:27 19 01/25/17 20:59 Intake and Output 01/28/17 01/28/17 01/29/17 15:00 23:00 07:00 Intake Total 200 ml 950 ml 1325 ml Output Total 3800 ml 2550 ml Balance 200 ml -2850 ml -1225 ml Results Result Diagram: 01/29/17 0559 01/29/17 0559 Results 24 hrs Laboratory Tests Test 01/29/17 05:59 White Blood Count 3.0 L Red Blood Count 3.34 L Hemoglobin 9.3 L Hematocrit 29.1 L Mean Corpuscular Volume 87.1 Mean Corpuscular Hemoglobin 27.8 L Mean Corpuscular Hemoglobin Concent 32.0 Red Cell Distribution Width 17.4 H Platelet Count 155 # Mean Platelet Volume 10.5 H Neutrophils % 83.8 H Lymphocytes % 3.6 L Monocytes % 8.3 Eosinophils % 2.0 Basophils % 0.3 Nucleated Red Blood Cells % 0.0 Neutrophils # (Manual) 3 Lymphocytes # 0.1 L Monocytes # 0.3 Eosinophils # 0.1 Basophils # 0.0 Nucleated Red Blood Cells # 0.0 Sodium Level 134 L Potassium Level 4.2 Chloride Level 88 L Carbon Dioxide Level 32 H Anion Gap 18 H Blood Urea Nitrogen 4 L Creatinine 0.50 L Glucose Level 82 Calcium Level 9.2 Vitamin D 1,25-Dihydroxy < 12.8 L Medications Medications Current Medications Docusate Sodium (Colace) 100 mg Q12H PRN PO CONSTIPATION Last administered on 10:46; Admin Dose 100 MG; Start 01/09/17 at 19:30 Magnesium Hydroxide (Milk Of Mag) 30 ml DAILY PRN PO CONSTIPATION Last administered on 01/29/17 09:33; Admin Dose 30 ML; Start 01/09/17 at 19:30 Sodium Biphosphate/ Sodium Phosphate (Fleet Enema) 133 ml DAILY PRN [place] CONSTIPATION; Start 01/09/17 at 19:30 Heparin Sodium (Porcine) 5000 unit 5,000 unit Q12 SC Last administered on 09:43; Admin Dose 5,000 UNIT; Start 01/09/17 at 21:00; Status Future Hold Piperacillin Sod/ Tazobactam Sod (Zosyn 3.375gm/ 100 ml (Pmx)) 100 ml @ 200 mls /hr Q6 IVPB Last administered on 01/29/17 12:21; Admin Dose 200 MLS/HR; Start 01/10/17 at 00:00 Nitroglycerin (Nitroglycerin (Sl Tab) 0.4 Mg) 1 tab Q5M PRN SL ANGINA; Start at 19:30 Miscellaneous Information (Pending [facility] Order For Wound Care) This patient aranda... PRN PRN XX WOUND CARE; Start 01/10/17 at 03:30 Ondansetron HCl 4 mg 4 mg Q6 IV Last administered on 01/29/17 11:58; Admin Dose 4 MG; Start 01/10/17 at 15:30 Acetaminophen (Ofirmev 1000mg/ 100ml Iv) 100 ml @ 400 mls/hr Q6 IVPB Last administered on 01/29/17 11:58; Admin Dose 400 MLS/HR; Start 01/10/17 at 16:30 IV Flush (NS 10 ml) 10 ml PRN PRN IV IV PROTOCOL; Start 01/10/17 at 20:30 Prednisone 10 mg 10 mg DAILY PO Last administered on 01/29/17 09:22; Admin Dose 10 MG; Start 01/15/17 at 09:00 Levofloxacin/ Dextrose 150 ml @ 100 mls/hr Q24H IVPB Last administered on 01/28 16:28; Admin Dose 100 MLS/HR; Start 01/18/17 at 16:00 Trimethoprim/ Sulfamethoxazole/ Dextrose (Bactrim/D5W) 525 ml @ 343.333 mls/hr Q8 IVPB Last administered on 01/29/17 06:33; Admin Dose 343.333 MLS/HR; Start 01/19/17 at 13:30 Metoprolol Succinate 50 mg 50 mg QHS PO Last administered on 01/28/17 20:25; Admin Dose 50 MG; Start 01/21/17 at 21:00 Hydromorphone HCl/ Dextrose (Dilaudid/D5W) 50 ml @ 2 mls/hr TITRATE IV Last administered on 01/29/17 04:40; Admin Dose 2 MLS/HR; Start 01/23/17 at 16:30 Ergocalciferol (Drisdol) 50,000 unit We@09 PO Last administered on 01/25/17 08 :39; Admin Dose 50,000 UNIT; Start 01/25/17 at 09:00 Calcium Carbonate (Oyster Shell Calcium) 1.25 gm BID PO Last administered on 09:23; Admin Dose 1.25 GM; Start 01/24/17 at 21:00 Pantoprazole (Protonix Tab) 40 mg DAILY@06 PO Last administered on 01/29/17 05 :53; Admin Dose 40 MG; Start 01/26/17 at 06:00 Hydromorphone HCl (Dilaudid) 1 mg Q2 PRN IV PAIN Last administered on 09:38; Admin Dose 1 MG; Start 01/25/17 at 21:00 FAUSTINO VALDIVIA MD Jan 29, 2017 13:15
--- NOTE | 2017-01-29 14:12 | CONS ---
Date/Time of Note Date/Time of Note DATE: 01/29/17 TIME: 14:11 Assessment/Plan Assessment/Plan Chief Complaint/Hosp Course SUBJECTIVE DATA: No acute changes overnight. Patient is alert, feels good, no fevers MICROBIOLOGY: Blood cultures remain negative. Urine culture negative. Sputum culture growing MDR gram-negative rods. Right lower extremity wound culture grew Citrobacter Freundii , Enterococcus species, Corynebacterium species, and Stenotrophomonas maltophilia. Sputum cx + MDR Kleb INDWELLINGS: PICC line. ANTIMICROBIALS: Bactrim, Levaquin, Zosyn, colistin inhalation. PHYSICAL EXAMINATION: This is an obese, chronically ill- appearing, middle aged man who is awake, in no distress. HEENT: Head atraumatic, normocephalic. Sclerae anicteric. Buccal mucosa dry. NECK: Obese. CHEST: Rise symmetrical. Breath sounds diminished at the bases. HEART: S1, S2. Tachycardic, regular. ABDOMEN: Obese, soft, bowel sounds present. EXTREMITIES: Without cyanosis, bilateral edema with multiple unstageable wounds. SKIN: Generalized edema with multiple necrotic wounds. ASSESSMENT: 1. S/p septic shock 2. Status post urinary tract infection. 3. Multiple necrotic wounds with wound culture growing multidrug resistant organisms, on antibiotics. 4. Resolving pancreatitis 5. Severe hypocalcemia, Endocrinology follows. 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 7. Pulmonary nodular opacities consistent with metastatic lymphoma, rule out out pneumonia. 8. Pancytopenia. PLAN: Remains stable, continue present care, antibiotics, local wound care, follow recommendations of consultants. DW staff/pt Problems: Consultation Date/Type/Reason Admit Date/Time Jan 09, 2017 at 19:08 Initial Consult Date 01/15/17 Type of Consultation: ID Referring Provider: YAO RAHMAN Exam/Review of Systems Vital Signs Vitals Vital Signs Date Time Temp Pulse Resp B/P Pulse Ox O2 Delivery O2 Flow Rate FiO2 01/29/17 13:41 110 01/29/17 11:15 98.2 139/71 99 01/29/17 08:30 Nasal Cannula 2.0 01/29/17 08:27 19 01/25/17 20:59 Intake and Output 01/28/17 01/28/17 01/29/17 15:00 23:00 07:00 Intake Total 200 ml 950 ml 1325 ml Output Total 3800 ml 2550 ml Balance 200 ml -2850 ml -1225 ml Results Result Diagram: 01/29/17 0559 01/29/17 0559 Results 24 hrs Laboratory Tests Test 01/29/17 05:59 White Blood Count 3.0 L Red Blood Count 3.34 L Hemoglobin 9.3 L Hematocrit 29.1 L Mean Corpuscular Volume 87.1 Mean Corpuscular Hemoglobin 27.8 L Mean Corpuscular Hemoglobin Concent 32.0 Red Cell Distribution Width 17.4 H Platelet Count 155 # Mean Platelet Volume 10.5 H Neutrophils % 83.8 H Lymphocytes % 3.6 L Monocytes % 8.3 Eosinophils % 2.0 Basophils % 0.3 Nucleated Red Blood Cells % 0.0 Neutrophils # (Manual) 3 Lymphocytes # 0.1 L Monocytes # 0.3 Eosinophils # 0.1 Basophils # 0.0 Nucleated Red Blood Cells # 0.0 Sodium Level 134 L Potassium Level 4.2 Chloride Level 88 L Carbon Dioxide Level 32 H Anion Gap 18 H Blood Urea Nitrogen 4 L Creatinine 0.50 L Glucose Level 82 Calcium Level 9.2 Vitamin D 1,25-Dihydroxy < 12.8 L Medications Medications Current Medications Docusate Sodium (Colace) 100 mg Q12H PRN PO CONSTIPATION Last administered on 10:46; Admin Dose 100 MG; Start 01/09/17 at 19:30 Magnesium Hydroxide (Milk Of Mag) 30 ml DAILY PRN PO CONSTIPATION Last administered on 01/29/17 09:33; Admin Dose 30 ML; Start 01/09/17 at 19:30 Sodium Biphosphate/ Sodium Phosphate (Fleet Enema) 133 ml DAILY PRN [place] CONSTIPATION; Start 01/09/17 at 19:30 Heparin Sodium (Porcine) 5000 unit 5,000 unit Q12 SC Last administered on 09:43; Admin Dose 5,000 UNIT; Start 01/09/17 at 21:00; Status Future Hold Piperacillin Sod/ Tazobactam Sod (Zosyn 3.375gm/ 100 ml (Pmx)) 100 ml @ 200 mls /hr Q6 IVPB Last administered on 01/29/17 12:21; Admin Dose 200 MLS/HR; Start 01/10/17 at 00:00 Nitroglycerin (Nitroglycerin (Sl Tab) 0.4 Mg) 1 tab Q5M PRN SL ANGINA; Start at 19:30 Miscellaneous Information ([facility]) This patient aranda... PRN PRN XX WOUND CARE; Start 01/10/17 at 03:30 Ondansetron HCl 4 mg 4 mg Q6 IV Last administered on 01/29/17 11:58; Admin Dose 4 MG; Start 01/10/17 at 15:30 Acetaminophen (Ofirmev 1000mg/ 100ml Iv) 100 ml @ 400 mls/hr Q6 IVPB Last administered on 01/29/17 11:58; Admin Dose 400 MLS/HR; Start 01/10/17 at 16:30 IV Flush (NS 10 ml) 10 ml PRN PRN IV IV PROTOCOL; Start 01/10/17 at 20:30 Prednisone 10 mg 10 mg DAILY PO Last administered on 01/29/17 09:22; Admin Dose 10 MG; Start 01/15/17 at 09:00 Levofloxacin/ Dextrose 150 ml @ 100 mls/hr Q24H IVPB Last administered on 01/28 16:28; Admin Dose 100 MLS/HR; Start 01/18/17 at 16:00 Trimethoprim/ Sulfamethoxazole/ Dextrose (Bactrim/D5W) 525 ml @ 343.333 mls/hr Q8 IVPB Last administered on 01/29/17 06:33; Admin Dose 343.333 MLS/HR; Start 01/19/17 at 13:30 Metoprolol Succinate 50 mg 50 mg QHS PO Last administered on 01/28/17 20:25; Admin Dose 50 MG; Start 01/21/17 at 21:00 Hydromorphone HCl/ Dextrose (Dilaudid/D5W) 50 ml @ 2 mls/hr TITRATE IV Last administered on 01/29/17 04:40; Admin Dose 2 MLS/HR; Start 01/23/17 at 16:30 Ergocalciferol (Drisdol) 50,000 unit We@09 PO Last administered on 01/25/17 08 :39; Admin Dose 50,000 UNIT; Start 01/25/17 at 09:00 Calcium Carbonate (Oyster Shell Calcium) 1.25 gm BID PO Last administered on 09:23; Admin Dose 1.25 GM; Start 01/24/17 at 21:00 Pantoprazole (Protonix Tab) 40 mg DAILY@06 PO Last administered on 01/29/17 05 :53; Admin Dose 40 MG; Start 01/26/17 at 06:00 Hydromorphone HCl (Dilaudid) 1 mg Q2 PRN IV PAIN Last administered on 09:38; Admin Dose 1 MG; Start 01/25/17 at 21:00 DEENA LOCO NP Jan 29, 2017 14:12
--- NOTE | 2017-01-29 14:39 | CONS ---
Date/Time of Note Date/Time of Note DATE: 01/29/17 TIME: 14:36 Assessment/Plan Assessment/Plan Additional Assessment/Plan 1. Edema: ? EF (echo pending) 2. Right pleural effusion with atelectasis and right lung base pneumonia, resolved. 3. Large B cell anaplastic lymphoma; status post chemo 1 month 4. Sepsis resolving 5. Electrolyte imbalance, better 6. Severe anemia 7. Morbid obesity 8. Skin wounds Consultation Date/Type/Reason Admit Date/Time Jan 09, 2017 at 19:08 Initial Consult Date 01/15/17 Type of Consultation: ID Referring Provider: YAO RAHMAN 24 HR Interval Summary Free Text/Dictation Ambulating to bathroom. Still has some edema ROS: No fever, no chills, no nausea, no vomiting, no diarrhea/constipation No recent weight changes No palpitations No chest pain, no PND, no SOB No dizziness, blurred vision No thirst, no heat or cold intolerance Exam/Review of Systems Vital Signs Vitals Vital Signs Date Time Temp Pulse Resp B/P Pulse Ox O2 Delivery O2 Flow Rate FiO2 01/29/17 13:41 110 01/29/17 11:15 98.2 139/71 99 01/29/17 08:30 Nasal Cannula 2.0 01/29/17 08:27 19 01/25/17 20:59 Intake and Output 01/28/17 01/28/17 01/29/17 15:00 23:00 07:00 Intake Total 200 ml 950 ml 1325 ml Output Total 3800 ml 2550 ml Balance 200 ml -2850 ml -1225 ml Exam General: WN/WD HEENT: Unicetric/atraumatic/ no assymetry NECK: JVD not elevated, no thyromegaly, carotids revealed normal upstrokes Lymph: no lymphadenopathy HEART: regular with no S3, I/ systolic murmur at apex LUNGS: few rhonchi ABD: soft, NT, ND, +BS, no organomegaly Neuro: no deficit EXT: 1+ edema Results Result Diagram: 01/29/17 0559 01/29/17 0559 Results 24 hrs Laboratory Tests Test 01/29/17 05:59 White Blood Count 3.0 L Red Blood Count 3.34 L Hemoglobin 9.3 L Hematocrit 29.1 L Mean Corpuscular Volume 87.1 Mean Corpuscular Hemoglobin 27.8 L Mean Corpuscular Hemoglobin Concent 32.0 Red Cell Distribution Width 17.4 H Platelet Count 155 # Mean Platelet Volume 10.5 H Neutrophils % 83.8 H Lymphocytes % 3.6 L Monocytes % 8.3 Eosinophils % 2.0 Basophils % 0.3 Nucleated Red Blood Cells % 0.0 Neutrophils # (Manual) 3 Lymphocytes # 0.1 L Monocytes # 0.3 Eosinophils # 0.1 Basophils # 0.0 Nucleated Red Blood Cells # 0.0 Sodium Level 134 L Potassium Level 4.2 Chloride Level 88 L Carbon Dioxide Level 32 H Anion Gap 18 H Blood Urea Nitrogen 4 L Creatinine 0.50 L Glucose Level 82 Calcium Level 9.2 Vitamin D 1,25-Dihydroxy < 12.8 L Medications Medications Current Medications Docusate Sodium (Colace) 100 mg Q12H PRN PO CONSTIPATION Last administered on 10:46; Admin Dose 100 MG; Start 01/09/17 at 19:30 Magnesium Hydroxide (Milk Of Mag) 30 ml DAILY PRN PO CONSTIPATION Last administered on 01/29/17 09:33; Admin Dose 30 ML; Start 01/09/17 at 19:30 Sodium Biphosphate/ Sodium Phosphate (Fleet Enema) 133 ml DAILY PRN [place] CONSTIPATION; Start 01/09/17 at 19:30 Heparin Sodium (Porcine) 5000 unit 5,000 unit Q12 SC Last administered on 09:43; Admin Dose 5,000 UNIT; Start 01/09/17 at 21:00; Status Future Hold Piperacillin Sod/ Tazobactam Sod (Zosyn 3.375gm/ 100 ml (Pmx)) 100 ml @ 200 mls /hr Q6 IVPB Last administered on 01/29/17 12:21; Admin Dose 200 MLS/HR; Start 01/10/17 at 00:00 Nitroglycerin (Nitroglycerin (Sl Tab) 0.4 Mg) 1 tab Q5M PRN SL ANGINA; Start at 19:30 Miscellaneous Information (Pending [facility] Order For Wound Care) This patient aranda... PRN PRN XX WOUND CARE; Start 01/10/17 at 03:30 Ondansetron HCl 4 mg 4 mg Q6 IV Last administered on 01/29/17 11:58; Admin Dose 4 MG; Start 01/10/17 at 15:30 Acetaminophen (Ofirmev 1000mg/ 100ml Iv) 100 ml @ 400 mls/hr Q6 IVPB Last administered on 01/29/17 11:58; Admin Dose 400 MLS/HR; Start 01/10/17 at 16:30 IV Flush (NS 10 ml) 10 ml PRN PRN IV IV PROTOCOL; Start 01/10/17 at 20:30 Prednisone 10 mg 10 mg DAILY PO Last administered on 01/29/17 09:22; Admin Dose 10 MG; Start 01/15/17 at 09:00 Levofloxacin/ Dextrose 150 ml @ 100 mls/hr Q24H IVPB Last administered on 01/28 16:28; Admin Dose 100 MLS/HR; Start 01/18/17 at 16:00 Trimethoprim/ Sulfamethoxazole/ Dextrose (Bactrim/D5W) 525 ml @ 343.333 mls/hr Q8 IVPB Last administered on 01/29/17 06:33; Admin Dose 343.333 MLS/HR; Start 01/19/17 at 13:30 Metoprolol Succinate 50 mg 50 mg QHS PO Last administered on 01/28/17 20:25; Admin Dose 50 MG; Start 01/21/17 at 21:00 Hydromorphone HCl/ Dextrose (Dilaudid/D5W) 50 ml @ 2 mls/hr TITRATE IV Last administered on 01/29/17 04:40; Admin Dose 2 MLS/HR; Start 01/23/17 at 16:30 Ergocalciferol (Drisdol) 50,000 unit We@09 PO Last administered on 01/25/17 08 :39; Admin Dose 50,000 UNIT; Start 01/25/17 at 09:00 Calcium Carbonate (Oyster Shell Calcium) 1.25 gm BID PO Last administered on 09:23; Admin Dose 1.25 GM; Start 01/24/17 at 21:00 Pantoprazole (Protonix Tab) 40 mg DAILY@06 PO Last administered on 01/29/17 05 :53; Admin Dose 40 MG; Start 01/26/17 at 06:00 Hydromorphone HCl (Dilaudid) 1 mg Q2 PRN IV PAIN Last administered on 09:38; Admin Dose 1 MG; Start 01/25/17 at 21:00 ARGENIS GARCIA MD Jan 29, 2017 14:39
[2017-01-29] MEDS: LEVOFLOXACIN 750MG/D5W (PMX) 150 ML IVPB SCH (16:44)
--- NOTE | 2017-01-29 19:33 | CONS ---
Date/Time of Note Date/Time of Note DATE: 01/29/17 TIME: 19:30 Assessment/Plan Assessment/Plan Chief Complaint/Hosp Course 31 yo male with anaplastic B Cell lymphoma who presented with abdominal pain, found to have pancreatitis 1. Acute renal injury 2. Right pleural effusion with atelectasis and right lung base pneumonia, resolved. 3. Large B cell anaplastic lymphoma; status post chemo 1 month 4. Sepsis resolving 5. Electrolyte imbalance, better 6. Severe anemia 7. Morbid obesity 8. Skin wounds Problems: Assessment/Plan 1. PT for mobility 2. Continue wound care 3. Dilaudid for pain 4 colistin/bactrim/levquin 5 pending transfer higher level of care 6 Apppreciate all consults Problems: Consultation Date/Type/Reason Admit Date/Time Jan 09, 2017 at 19:08 Initial Consult Date 01/15/17 Type of Consultation: Nephro Referring Provider: YAO RAHMAN 24 HR Interval Summary Free Text/Dictation Pt feels better, pain improved Exam/Review of Systems Vital Signs Vitals Vital Signs Date Time Temp Pulse Resp B/P Pulse Ox O2 Delivery O2 Flow Rate FiO2 01/29/17 16:59 100 01/29/17 15:09 98.0 17 123/66 01/29/17 11:15 99 01/29/17 08:30 Nasal Cannula 2.0 01/25/17 20:59 Intake and Output 01/28/17 01/28/17 01/29/17 15:00 23:00 07:00 Intake Total 200 ml 950 ml 1325 ml Output Total 3800 ml 2550 ml Balance 200 ml -2850 ml -1225 ml Exam Constitutional: alert Eyes: nl conjunctiva Respiratory: diminished breath sounds Cardiovascular: regular rate and rhythm Gastrointestinal: bowel sounds, distended, soft Extremities: edema Results Result Diagram: 01/29/17 0559 01/29/17 0559 Results 24 hrs Laboratory Tests Test 01/29/17 05:59 White Blood Count 3.0 L Red Blood Count 3.34 L Hemoglobin 9.3 L Hematocrit 29.1 L Mean Corpuscular Volume 87.1 Mean Corpuscular Hemoglobin 27.8 L Mean Corpuscular Hemoglobin Concent 32.0 Red Cell Distribution Width 17.4 H Platelet Count 155 # Mean Platelet Volume 10.5 H Neutrophils % 83.8 H Lymphocytes % 3.6 L Monocytes % 8.3 Eosinophils % 2.0 Basophils % 0.3 Nucleated Red Blood Cells % 0.0 Neutrophils # (Manual) 3 Lymphocytes # 0.1 L Monocytes # 0.3 Eosinophils # 0.1 Basophils # 0.0 Nucleated Red Blood Cells # 0.0 Sodium Level 134 L Potassium Level 4.2 Chloride Level 88 L Carbon Dioxide Level 32 H Anion Gap 18 H Blood Urea Nitrogen 4 L Creatinine 0.50 L Glucose Level 82 Calcium Level 9.2 Vitamin D 1,25-Dihydroxy < 12.8 L Medications Medications Current Medications Docusate Sodium (Colace) 100 mg Q12H PRN PO CONSTIPATION Last administered on 10:46; Admin Dose 100 MG; Start 01/09/17 at 19:30 Magnesium Hydroxide (Milk Of Mag) 30 ml DAILY PRN PO CONSTIPATION Last administered on 01/29/17 09:33; Admin Dose 30 ML; Start 01/09/17 at 19:30 Sodium Biphosphate/ Sodium Phosphate (Fleet Enema) 133 ml DAILY PRN [place] CONSTIPATION; Start 01/09/17 at 19:30 Heparin Sodium (Porcine) 5000 unit 5,000 unit Q12 SC Last administered on 09:43; Admin Dose 5,000 UNIT; Start 01/09/17 at 21:00; Status Future Hold Piperacillin Sod/ Tazobactam Sod (Zosyn 3.375gm/ 100 ml (Pmx)) 100 ml @ 200 mls /hr Q6 IVPB Last administered on 01/29/17 18:30; Admin Dose 200 MLS/HR; Start 01/10/17 at 00:00 Nitroglycerin (Nitroglycerin (Sl Tab) 0.4 Mg) 1 tab Q5M PRN SL ANGINA; Start at 19:30 Miscellaneous Information (Pending [facility] Order For Wound Care) This patient aranda... PRN PRN XX WOUND CARE; Start 01/10/17 at 03:30 Ondansetron HCl 4 mg 4 mg Q6 IV Last administered on 01/29/17 18:09; Admin Dose 4 MG; Start 01/10/17 at 15:30 Acetaminophen (Ofirmev 1000mg/ 100ml Iv) 100 ml @ 400 mls/hr Q6 IVPB Last administered on 01/29/17 18:08; Admin Dose 400 MLS/HR; Start 01/10/17 at 16:30 IV Flush (NS 10 ml) 10 ml PRN PRN IV IV PROTOCOL; Start 01/10/17 at 20:30 Prednisone 10 mg 10 mg DAILY PO Last administered on 01/29/17 09:22; Admin Dose 10 MG; Start 01/15/17 at 09:00 Levofloxacin/ Dextrose 150 ml @ 100 mls/hr Q24H IVPB Last administered on 01/29 16:44; Admin Dose 100 MLS/HR; Start 01/18/17 at 16:00 Trimethoprim/ Sulfamethoxazole/ Dextrose (Bactrim/D5W) 525 ml @ 343.333 mls/hr Q8 IVPB Last administered on 01/29/17 15:42; Admin Dose 343.333 MLS/HR; Start 01/19/17 at 13:30 Metoprolol Succinate 50 mg 50 mg QHS PO Last administered on 01/28/17 20:25; Admin Dose 50 MG; Start 01/21/17 at 21:00 Hydromorphone HCl/ Dextrose (Dilaudid/D5W) 50 ml @ 2 mls/hr TITRATE IV Last administered on 01/29/17 04:40; Admin Dose 2 MLS/HR; Start 01/23/17 at 16:30 Ergocalciferol (Drisdol) 50,000 unit We@09 PO Last administered on 01/25/17 08 :39; Admin Dose 50,000 UNIT; Start 01/25/17 at 09:00 Calcium Carbonate (Oyster Shell Calcium) 1.25 gm BID PO Last administered on 09:23; Admin Dose 1.25 GM; Start 01/24/17 at 21:00 Pantoprazole (Protonix Tab) 40 mg DAILY@06 PO Last administered on 01/29/17 05 :53; Admin Dose 40 MG; Start 01/26/17 at 06:00 Hydromorphone HCl (Dilaudid) 1 mg Q2 PRN IV PAIN Last administered on 18:09; Admin Dose 1 MG; Start 01/25/17 at 21:00 TAMARA HARTMANN MD Jan 29, 2017 19:33
[2017-01-29] MEDS: METOPROLOL (XL) 25 MG TAB PO SCH (20:54)
--- NOTE | 2017-01-29 21:51 | CONS ---
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 His last chemo was a month ago and hadn't had since due to experiencing similar presenting symptoms. record from pt's oncologist Kain Wisdom - Kenji Left flank mass, CT-guided core needle biopsies with touch imprints: Completely necrotic tissue, insufficient for pathologic evaluation. PER PT REPORT- reportedly scheduled for change in therapy due to what appears to be lack of adequate response LEUKOPENIA IN PT WITH HNL ON CHEMO AND WITH SEPTIC PICTURE MONITOR BLOOD COUNT CLOSELY POST NEUPOGEN WBC- FLUCTUATING , NOT IN NEUTROPENIA LEVEL AT PRESENT PANCYTOPENIA POST CHEMO CONT TO MONITOR PRBC NEEDED Sepsis 2/2 PNA - abx, IVF - f/u culture results - ID pancreatitis. Abd Pain with N/V: 2/2 known lymphoma - pain mgmt - Anti-emetics Hyponatremia and Hypokalemia: 2/2 vomiting - NS IVF - replete K+ as needed Presumed RAMU: likely pre-renal 2/2 vomiting - cont IVF for now Problems: Consultation Date/Type/Reason Admit Date/Time Jan 09, 2017 at 19:08 Initial Consult Date 01/10/17 Type of Consultation: [facility] Referring Provider: YAO RAHMAN 24 HR Interval Summary Free Text/Dictation ALL NOTED Exam/Review of Systems Vital Signs Vitals Vital Signs Date Time Temp Pulse Resp B/P Pulse Ox O2 Delivery O2 Flow Rate FiO2 01/29/17 21:09 2.0 01/29/17 21:07 95 18 99 Nasal Cannula 01/29/17 20:12 98.0 103/58 01/25/17 20:59 Intake and Output 01/28/17 01/28/17 01/29/17 15:00 23:00 07:00 Intake Total 200 ml 950 ml 1325 ml Output Total 3800 ml 2550 ml Balance 200 ml -2850 ml -1225 ml Exam Head atraumatic, normocephalic. Sclerae anicteric. Buccal mucosa dry. NECK: Obese. CHEST: Rise symmetrical. Breath sounds diminished at the bases. HEART: S1, S2. Tachycardic, regular. ABDOMEN: Obese, soft, bowel sounds present. EXTREMITIES: Without cyanosis, bilateral edema with multiple unstageable wounds. SKIN: Generalized edema with multiple necrotic wounds. Results Result Diagram: 01/29/17 0559 01/29/17 0559 Results 24 hrs Laboratory Tests Test 01/29/17 05:59 White Blood Count 3.0 L Red Blood Count 3.34 L Hemoglobin 9.3 L Hematocrit 29.1 L Mean Corpuscular Volume 87.1 Mean Corpuscular Hemoglobin 27.8 L Mean Corpuscular Hemoglobin Concent 32.0 Red Cell Distribution Width 17.4 H Platelet Count 155 # Mean Platelet Volume 10.5 H Neutrophils % 83.8 H Lymphocytes % 3.6 L Monocytes % 8.3 Eosinophils % 2.0 Basophils % 0.3 Nucleated Red Blood Cells % 0.0 Neutrophils # (Manual) 3 Lymphocytes # 0.1 L Monocytes # 0.3 Eosinophils # 0.1 Basophils # 0.0 Nucleated Red Blood Cells # 0.0 Sodium Level 134 L Potassium Level 4.2 Chloride Level 88 L Carbon Dioxide Level 32 H Anion Gap 18 H Blood Urea Nitrogen 4 L Creatinine 0.50 L Glucose Level 82 Calcium Level 9.2 Vitamin D 1,25-Dihydroxy < 12.8 L Medications Medications Current Medications Docusate Sodium (Colace) 100 mg Q12H PRN PO CONSTIPATION Last administered on 10:46; Admin Dose 100 MG; Start 01/09/17 at 19:30 Magnesium Hydroxide (Milk Of Mag) 30 ml DAILY PRN PO CONSTIPATION Last administered on 01/29/17 09:33; Admin Dose 30 ML; Start 01/09/17 at 19:30 Sodium Biphosphate/ Sodium Phosphate (Fleet Enema) 133 ml DAILY PRN [place] CONSTIPATION; Start 01/09/17 at 19:30 Heparin Sodium (Porcine) 5000 unit 5,000 unit Q12 SC Last administered on 09:43; Admin Dose 5,000 UNIT; Start 01/09/17 at 21:00; Status Future Hold Piperacillin Sod/ Tazobactam Sod (Zosyn 3.375gm/ 100 ml (Pmx)) 100 ml @ 200 mls /hr Q6 IVPB Last administered on 01/29/17 18:30; Admin Dose 200 MLS/HR; Start 01/10/17 at 00:00 Nitroglycerin (Nitroglycerin (Sl Tab) 0.4 Mg) 1 tab Q5M PRN SL ANGINA; Start at 19:30 Misc[facility] This patient aranda... PRN PRN XX WOUND CARE; Start 01/10/17 at 03:30 Ondansetron HCl 4 mg 4 mg Q6 IV Last administered on 01/29/17 18:09; Admin Dose 4 MG; Start 01/10/17 at 15:30 Acetaminophen (Ofirmev 1000mg/ 100ml Iv) 100 ml @ 400 mls/hr Q6 IVPB Last administered on 01/29/17 18:08; Admin Dose 400 MLS/HR; Start 01/10/17 at 16:30 IV Flush (NS 10 ml) 10 ml PRN PRN IV IV PROTOCOL; Start 01/10/17 at 20:30 Prednisone 10 mg 10 mg DAILY PO Last administered on 01/29/17 09:22; Admin Dose 10 MG; Start 01/15/17 at 09:00 Levofloxacin/ Dextrose 150 ml @ 100 mls/hr Q24H IVPB Last administered on 01/29 16:44; Admin Dose 100 MLS/HR; Start 01/18/17 at 16:00 Trimethoprim/ Sulfamethoxazole/ Dextrose (Bactrim/D5W) 525 ml @ 343.333 mls/hr Q8 IVPB Last administered on 01/29/17 21:36; Admin Dose 343.333 MLS/HR; Start 01/19/17 at 13:30 Metoprolol Succinate 50 mg 50 mg QHS PO Last administered on 01/29/17 20:54; Admin Dose 50 MG; Start 01/21/17 at 21:00 Hydromorphone HCl/ Dextrose (Dilaudid/D5W) 50 ml @ 2 mls/hr TITRATE IV Last administered on 01/29/17 04:40; Admin Dose 2 MLS/HR; Start 01/23/17 at 16:30 Ergocalciferol (Drisdol) 50,000 unit We@09 PO Last administered on 01/25/17 08 :39; Admin Dose 50,000 UNIT; Start 01/25/17 at 09:00 Calcium Carbonate (Oyster Shell Calcium) 1.25 gm BID PO Last administered on 20:53; Admin Dose 1.25 GM; Start 01/24/17 at 21:00 Pantoprazole (Protonix Tab) 40 mg DAILY@06 PO Last administered on 01/29/17 05 :53; Admin Dose 40 MG; Start 01/26/17 at 06:00 Hydromorphone HCl (Dilaudid) 1 mg Q2 PRN IV PAIN Last administered on 18:09; Admin Dose 1 MG; Start 01/25/17 at 21:00 MOIRA BIRMINGHAM MD Jan 29, 2017 21:50
[2017-01-30] VITALS (13 sets, daily range): BP systolic 110–127; BP diastolic 55–71; PULSE 96–127; RESP 18–21
[2017-01-30] MEDS: HYDROmorphONE 1 MG/ML SYG IV PRN ×5 (04:14→22:49)
[2017-01-30] MEDS: ONDANSETRON 4 MG INJ IV SCH ×3 (05:12→17:51)
[2017-01-30] MEDS: ACETAMINOPHEN 1000MG/100ML IV 100 ML IVPB SCH ×3 (05:12→17:52)
[2017-01-30] MEDS: PIPER-TAZO 3.375 GM IV (PMX) 100 ML IVPB SCH ×3 (05:12→17:56)
[2017-01-30] MEDS: PANTOPRAZOLE (EC) 40 MG TAB PO SCH (05:13)
[2017-01-30] MEDS: TRIMETHOPRIM/SULFAMETHOXAZOLE 25 ML in DEXTROSE 5% 500 ML IVPB SCH ×3 (06:00→21:54)
[2017-01-30] MEDS: COLISTIMETHATE (25 MG/ML INHAL SYG) NEB SCH ×2 (07:33→20:41)
[2017-01-30] MEDS: predniSONE 20 MG TAB PO SCH (08:34)
[2017-01-30] MEDS: CALCIUM CARBONATE 1.25 GM TAB PO SCH ×2 (08:34→20:33)
[2017-01-30 10:49] LABS: ABNORMAL IP MESSAGE 1; BASOPHILS % 0.4 % (0.0-2.0); EOSINOPHILS % 1.5 % (0.0-7.0); HEMATOCRIT 27.8 % (42.0-52.0); HEMOGLOBIN 9.1 g/dl (14.0-18.0); LYMPHOCYTES # 0.1 10^3/ul (0.8-2.9); LYMPHOCYTES % 2.6 % (15.0-51.0); MEAN CORPUSCULAR HEMOGLOBIN 28.7 pg (29.0-33.0); MEAN CORPUSCULAR HGB CONC 32.7 g/dl (32.0-37.0); MEAN CORPUSCULAR VOLUME 87.7 fl (82.0-101.0); MEAN PLATELET VOLUME 10.4 fl (7.4-10.4); MONOCYTE # 0.3 10^3/ul (0.3-0.9); MONOCYTES % 9.6 % (0.0-11.0); NEUTROPHILS % 83.3 % (39.0-77.0); PLATELET COUNT 168 10^3/UL (140-415); POSITIVE DIFF @See below; RED BLOOD COUNT 3.17 10^6/ul (4.70-6.10); RED CELL DISTRIBUTION WIDTH 17.2 % (11.5-14.5); WHITE BLOOD COUNT 2.7 10^3/ul (4.8-10.8)
[2017-01-30 11:11] LABS: ALBUMIN 3.3 g/dl (3.3-4.9); ALBUMIN/GLOBULIN RATIO 1.13; BILIRUBIN,INDIRECT 0.5 mg/dl (0-1.1); BILIRUBIN,TOTAL 0.5 mg/dl (0.2-1.3); CALCIUM 8.6 mg/dl (8.4-10.2); CREATININE 0.51 mg/dl (0.61-1.24); POTASSIUM 4.1 mmol/L (3.5-5.1); TOTAL PROTEIN 6.2 g/dl (6.1-8.1)
--- NOTE | 2017-01-30 11:26 | PN ---
Date/Time of Note Date/Time of Note DATE: 01/30/17 TIME: 11:21 Assessment/Plan VTE Prophylaxis VTE Prophylaxis Intervention: heparin, LMWH Lines/Catheters IV Catheter Type (from Nrs): Peripheral IV Urinary Cath still in place: No Assessment/Plan Assessment/Plan Physical exam constitutional: alert Eyes: nl conjunctiva Respiratory: diminished breath sounds Cardiovascular: regular rate and rhythm Gastrointestinal: bowel sounds, distended, soft Extremities: edema 31 yo male with anaplastic B Cell lymphoma who presented with abdominal pain, found to have 1. pancreatitis on pain control with DIilaudid 1. Acute renal injury resolved 2. Right pleural effusion with atelectasis and right lung base pneumonia, resolved. 3. Large B cell anaplastic lymphoma; status post chemo 1 month 4. Sepsis resolving 5. Electrolyte imbalance, better 6. Severe anemia 7. Morbid obesity 8. Skin wounds Assessment/Plan 1. PT for mobility 2. Continue wound care 3. Dilaudid for pain 4 colistin/bactrim/levquin 5 pending transfer higher level of care to [facility] 6 Apppreciate all consults Subjective 24 Hr Interval Summary Free Text/Dictation Pt doing better Pain controlled Exam/Review of Systems Vital Signs Vitals Vital Signs Date Time Temp Pulse Resp B/P Pulse Ox O2 Delivery O2 Flow Rate FiO2 01/30/17 09:03 112 01/30/17 07:36 2.0 01/30/17 07:36 20 98 Nasal Cannula 01/30/17 07:17 97.9 110/58 Intake and Output 01/29/17 01/29/17 01/30/17 15:00 23:00 07:00 Intake Total 200 ml 1424 ml 1737 ml Output Total 2000 ml 2800 ml Balance 200 ml -576 ml -1063 ml Results Result Diagram: 01/30/17 1029 01/30/17 1029 Results 24 hrs Laboratory Tests Test 01/30/17 10:29 White Blood Count 2.7 L Red Blood Count 3.17 L Hemoglobin 9.1 L Hematocrit 27.8 L Mean Corpuscular Volume 87.7 Mean Corpuscular Hemoglobin 28.7 L Mean Corpuscular Hemoglobin Concent 32.7 Red Cell Distribution Width 17.2 H Platelet Count 168 Mean Platelet Volume 10.4 Neutrophils % 83.3 H Lymphocytes % 2.6 L Monocytes % 9.6 Eosinophils % 1.5 Basophils % 0.4 Nucleated Red Blood Cells % 0.0 Neutrophils # (Manual) 2 Lymphocytes # 0.1 L Monocytes # 0.3 Eosinophils # 0.0 Basophils # 0.0 Nucleated Red Blood Cells # 0.0 Sodium Level 122 L Potassium Level 4.1 Chloride Level 85 L Carbon Dioxide Level 24 Anion Gap 17 H Blood Urea Nitrogen 5 L Creatinine 0.51 L Glucose Level 286 #H Calcium Level 8.6 Total Bilirubin 0.5 Direct Bilirubin 0.00 Indirect Bilirubin 0.5 Aspartate Amino Transf (AST/SGOT) 98 H Alanine Aminotransferase (ALT/SGPT) 73 H Alkaline Phosphatase 273 H Total Protein 6.2 Albumin 3.3 Globulin 2.90 Albumin/Globulin Ratio 1.13 Medications Medications Current Medications Docusate Sodium (Colace) 100 mg Q12H PRN PO CONSTIPATION Last administered on 10:46; Admin Dose 100 MG; Start 01/09/17 at 19:30 Magnesium Hydroxide (Milk Of Mag) 30 ml DAILY PRN PO CONSTIPATION Last administered on 01/29/17 09:33; Admin Dose 30 ML; Start 01/09/17 at 19:30 Sodium Biphosphate/ Sodium Phosphate (Fleet Enema) 133 ml DAILY PRN [place] CONSTIPATION; Start 01/09/17 at 19:30 Heparin Sodium (Porcine) 5000 unit 5,000 unit Q12 SC Last administered on 09:43; Admin Dose 5,000 UNIT; Start 01/09/17 at 21:00; Status Future Hold Piperacillin Sod/ Tazobactam Sod (Zosyn 3.375gm/ 100 ml (Pmx)) 100 ml @ 200 mls /hr Q6 IVPB Last administered on 01/30/17 05:12; Admin Dose 200 MLS/HR; Start 01/10/17 at 00:00 Nitroglycerin (Nitroglycerin (Sl Tab) 0.4 Mg) 1 tab Q5M PRN SL ANGINA; Start at 19:30 Miscellaneous [facility] This patient raanda... PRN PRN XX WOUND CARE; Start 01/10/17 at 03:30 Ondansetron HCl 4 mg 4 mg Q6 IV Last administered on 01/30/17 05:12; Admin Dose 4 MG; Start 01/10/17 at 15:30 Acetaminophen (Ofirmev 1000mg/ 100ml Iv) 100 ml @ 400 mls/hr Q6 IVPB Last administered on 01/30/17 05:12; Admin Dose 400 MLS/HR; Start 01/10/17 at 16:30 IV Flush (NS 10 ml) 10 ml PRN PRN IV IV PROTOCOL; Start 01/10/17 at 20:30 Prednisone 10 mg 10 mg DAILY PO Last administered on 01/30/17 08:34; Admin Dose 10 MG; Start 01/15/17 at 09:00 Levofloxacin/ Dextrose 150 ml @ 100 mls/hr Q24H IVPB Last administered on 01/29 16:44; Admin Dose 100 MLS/HR; Start 01/18/17 at 16:00 Trimethoprim/ Sulfamethoxazole/ Dextrose (Bactrim/D5W) 525 ml @ 343.333 mls/hr Q8 IVPB Last administered on 01/30/17 06:00; Admin Dose 343.333 MLS/HR; Start 01/19/17 at 13:30 Metoprolol Succinate 50 mg 50 mg QHS PO Last administered on 01/29/17 20:54; Admin Dose 50 MG; Start 01/21/17 at 21:00 Hydromorphone HCl/ Dextrose (Dilaudid/D5W) 50 ml @ 2 mls/hr TITRATE IV Last administered on 01/29/17 04:40; Admin Dose 2 MLS/HR; Start 01/23/17 at 16:30 Ergocalciferol (Drisdol) 50,000 unit We@09 PO Last administered on 01/25/17 08 :39; Admin Dose 50,000 UNIT; Start 01/25/17 at 09:00 Calcium Carbonate (Oyster Shell Calcium) 1.25 gm BID PO Last administered on 08:34; Admin Dose 1.25 GM; Start 01/24/17 at 21:00 Pantoprazole (Protonix Tab) 40 mg DAILY@06 PO Last administered on 01/30/17 05 :13; Admin Dose 40 MG; Start 01/26/17 at 06:00 Hydromorphone HCl (Dilaudid) 1 mg Q2 PRN IV PAIN Last administered on 09:44; Admin Dose 1 MG; Start 01/25/17 at 21:00 TAMARA HARTMANN MD Jan 30, 2017 11:25
--- NOTE | 2017-01-30 11:40 | CONS ---
Date/Time of Note Date/Time of Note DATE: 01/30/17 TIME: 11:34 Assessment/Plan Assessment/Plan Chief Complaint/Hosp Course IMP: 1.Tachycardia- S Tach-NL Ft4 2.lymphoma 3.HTN 4.anemia 5.obesity 6.Hyponatremia 7.Pancreatitis Recc: -Tele -serial ecg's -check echo -continue BB as tolerated but will change to atenolol -Contiuie abx's and f/u cx data Problems: Consultation Date/Type/Reason Admit Date/Time Jan 09, 2017 at 19:08 Initial Consult Date 01/15/17 Type of Consultation: cardiology Reason for Consultation tachyacrdia Referring Provider: YAO RAHMAN Exam/Review of Systems Vital Signs Vitals Vital Signs Date Time Temp Pulse Resp B/P Pulse Ox O2 Delivery O2 Flow Rate FiO2 01/30/17 11:24 99.1 128 20 115/55 97 01/30/17 07:36 2.0 01/30/17 07:36 Nasal Cannula Intake and Output 01/29/17 01/29/17 01/30/17 15:00 23:00 07:00 Intake Total 200 ml 1424 ml 1737 ml Output Total 2000 ml 2800 ml Balance 200 ml -576 ml -1063 ml Exam Review of Systems: CONSTITUTIONAL: No fevers, chills. PULMONARY: No sob CARDIOVASCULAR: No chest pain/palpitations GASTROINTESTINAL: No nausea/vomiting. GENITOURINARY: No hematuria/dysuria. MUSCULOSKELETAL: No myagias/arthalgias. PSYCHIATRIC: The patient denies depression. NEUROLOGIC: No weakness Constitutional: alert Psych: no complaints Head: normocephalic ENMT: mucosa pink and moist Neck: jvd (8-9 cm water), supple Respiratory: diminished breath sounds (at bases/B) Cardiovascular: regular rate and rhythm Gastrointestinal: non-tender, soft Musculoskeletal: muscle tone (normal) Extremities: edema (none) Results Result Diagram: 01/30/17 1029 01/30/17 1029 Results 24 hrs Laboratory Tests Test 01/30/17 10:29 White Blood Count 2.7 L Red Blood Count 3.17 L Hemoglobin 9.1 L Hematocrit 27.8 L Mean Corpuscular Volume 87.7 Mean Corpuscular Hemoglobin 28.7 L Mean Corpuscular Hemoglobin Concent 32.7 Red Cell Distribution Width 17.2 H Platelet Count 168 Mean Platelet Volume 10.4 Neutrophils % 83.3 H Lymphocytes % 2.6 L Monocytes % 9.6 Eosinophils % 1.5 Basophils % 0.4 Nucleated Red Blood Cells % 0.0 Neutrophils # (Manual) 2 Lymphocytes # 0.1 L Monocytes # 0.3 Eosinophils # 0.0 Basophils # 0.0 Nucleated Red Blood Cells # 0.0 Sodium Level 122 L Potassium Level 4.1 Chloride Level 85 L Carbon Dioxide Level 24 Anion Gap 17 H Blood Urea Nitrogen 5 L Creatinine 0.51 L Glucose Level 286 #H Calcium Level 8.6 Total Bilirubin 0.5 Direct Bilirubin 0.00 Indirect Bilirubin 0.5 Aspartate Amino Transf (AST/SGOT) 98 H Alanine Aminotransferase (ALT/SGPT) 73 H Alkaline Phosphatase 273 H Total Protein 6.2 Albumin 3.3 Globulin 2.90 Albumin/Globulin Ratio 1.13 Medications Medications Current Medications Docusate Sodium (Colace) 100 mg Q12H PRN PO CONSTIPATION Last administered on 10:46; Admin Dose 100 MG; Start 01/09/17 at 19:30 Magnesium Hydroxide (Milk Of Mag) 30 ml DAILY PRN PO CONSTIPATION Last administered on 01/29/17 09:33; Admin Dose 30 ML; Start 01/09/17 at 19:30 Sodium Biphosphate/ Sodium Phosphate (Fleet Enema) 133 ml DAILY PRN [place] CONSTIPATION; Start 01/09/17 at 19:30 Heparin Sodium (Porcine) 5000 unit 5,000 unit Q12 SC Last administered on 09:43; Admin Dose 5,000 UNIT; Start 01/09/17 at 21:00; Status Future Hold Piperacillin Sod/ Tazobactam Sod (Zosyn 3.375gm/ 100 ml (Pmx)) 100 ml @ 200 mls /hr Q6 IVPB Last administered on 01/30/17 05:12; Admin Dose 200 MLS/HR; Start 01/10/17 at 00:00 Nitroglycerin (Nitroglycerin (Sl Tab) 0.4 Mg) 1 tab Q5M PRN SL ANGINA; Start at 19:30 [facility] This patient aranda... PRN PRN XX WOUND CARE; Start 01/10/17 at 03:30 Ondansetron HCl 4 mg 4 mg Q6 IV Last administered on 01/30/17 05:12; Admin Dose 4 MG; Start 01/10/17 at 15:30 Acetaminophen (Ofirmev 1000mg/ 100ml Iv) 100 ml @ 400 mls/hr Q6 IVPB Last administered on 01/30/17 05:12; Admin Dose 400 MLS/HR; Start 01/10/17 at 16:30 IV Flush (NS 10 ml) 10 ml PRN PRN IV IV PROTOCOL; Start 01/10/17 at 20:30 Prednisone 10 mg 10 mg DAILY PO Last administered on 01/30/17 08:34; Admin Dose 10 MG; Start 01/15/17 at 09:00 Levofloxacin/ Dextrose 150 ml @ 100 mls/hr Q24H IVPB Last administered on 01/29 16:44; Admin Dose 100 MLS/HR; Start 01/18/17 at 16:00 Trimethoprim/ Sulfamethoxazole/ Dextrose (Bactrim/D5W) 525 ml @ 343.333 mls/hr Q8 IVPB Last administered on 01/30/17 06:00; Admin Dose 343.333 MLS/HR; Start 01/19/17 at 13:30 Metoprolol Succinate 50 mg 50 mg QHS PO Last administered on 01/29/17 20:54; Admin Dose 50 MG; Start 01/21/17 at 21:00 Hydromorphone HCl/ Dextrose (Dilaudid/D5W) 50 ml @ 2 mls/hr TITRATE IV Last administered on 01/29/17 04:40; Admin Dose 2 MLS/HR; Start 01/23/17 at 16:30 Ergocalciferol (Drisdol) 50,000 unit We@09 PO Last administered on 01/25/17 08 :39; Admin Dose 50,000 UNIT; Start 01/25/17 at 09:00 Calcium Carbonate (Oyster Shell Calcium) 1.25 gm BID PO Last administered on 08:34; Admin Dose 1.25 GM; Start 01/24/17 at 21:00 Pantoprazole (Protonix Tab) 40 mg DAILY@06 PO Last administered on 01/30/17 05 :13; Admin Dose 40 MG; Start 01/26/17 at 06:00 Hydromorphone HCl (Dilaudid) 1 mg Q2 PRN IV PAIN Last administered on t 09:44; Admin Dose 1 MG; Start 01/25/17 at 21:00 LARRY SANTANA Jan 30, 2017 11:40
[2017-01-30] MEDS: ATENOLOL 25 MG TAB PO SCH ×2 (12:18→20:34)
[2017-01-30] MEDS: HYDROmorphONE 50 MG in DEXTROSE 5% 45 ML IV SCH (13:39)
--- NOTE | 2017-01-30 14:06 | CONS ---
DATE OF ADMISSION: 01/09/2017 DATE OF CONSULTATION: 01/27/2017 REFERRING PHYSICIAN: Dr. Jordan. REASON FOR CONSULTATION: Tachycardia. HISTORY OF PRESENT ILLNESS: Mr. Alcaraz is a 31-year-old gentleman with history of non-Hodgkin's large B-cell anaplastic lymphoma diagnosed less than 2 years ago, history of hypertension, dyslipidemia, prior admissions to the hospital with infections and tachycardia. Comes to the hospital now for evaluation of tachycardia and likely infectious process. The patient has been treated by his outpatient oncologist. He has significant skin lesions. He is also tachycardic. I read his EKG carefully. He appears to be in sinus tachycardia. This is likely secondary to infectious versus dehydration. For now conservative therapy expected. There is no evidence of cardiac instability. PAST MEDICAL HISTORY: 1. History of non-Hodgkin's large B-cell anaplastic lymphoma with skin manifestations. 2. History of hyperadenosis. 3. History of hyperparathyroidism. 4. Recurrent admissions for infections, tachycardia. ALLERGIES: PATIENT IS ALLERGIC TO EGGS AND MILK. SOCIAL HISTORY: Patient does not smoke. He does not drink. Does not do any drugs. FAMILY HISTORY: Negative for sudden cardiac or premature coronary artery disease. MEDICATION: Patient is on Lasix 20 mg p.o. once a day, cimetidine, pantoprazole, hydromorphone, ondansetron, sodium chloride, levalbuterol, Atrovent, metoprolol succinate, p.o. once a day, levothyroxine, docusate and antibiotics. REVIEW OF SYSTEMS: CONSTITUTIONAL: There are no fevers, no chills, no shortness of breath, nausea, changes in . CARDIOVASCULAR: Tachycardia. RESPIRATORY: . GASTROINTESTINAL: . GENITOURINARY: No dysuria or hematuria. NEUROLOGIC: No focal neurologic deficits. HEMATOLOGIC: History of lymphoma. ENDOCRINE: History of thyroid disease. SKIN: History of skin lesions. PHYSICAL EXAMINATION: VITAL SIGNS: Temperature is , heart rate is 105 and tachycardic, blood pressure 102/58. GENERAL: He is well-nourished gentleman. He is alert, oriented x3. HEENT: Head normocephalic. Extraocular movements intact. NECK: Supple. JVD 6 cm. There is no lymphadenopathy or thyromegaly. CARDIAC: Regular . No murmur. PMI is minimally displaced. There is no S3. LUNGS: respirations. ABDOMEN: Distended. Bowel sounds are present. There is no hepatosplenomegaly. GENITOURINARY: Intact. EXTREMITIES: No cyanosis, clubbing with trace edema with multiple skin lesions. ELECTROCARDIOGRAM: Sinus tachycardia at a rate of 105. LABORATORY: White blood cell count is 2.5, hemoglobin is 11.1, platelets 471. Creatinine is 0.39. IMPRESSION AND PLAN: 1. Tachycardia. Patient's tachycardia is likely of anemia, as well as infection. Continue to treat . Continue to hydrate. 2. Abnormal EKG. No specific ST-T changes noted. No particular treatment is required. 3. History of lymphoma as described above. Patient is primary team. 4. Skin lesions. Continue appropriate care. Likely with infection. The patient is on antibiotics. 5. Hypertension. Blood pressure well optimized. No particular treatment is required. 6. History of . Appropriate . Continue to follow. I would like to thank Dr. Jordan for referring this patient for my evaluation. Dictated By: Andreas Stewart MD /paulette/meche /Document#: [id number]
--- NOTE | 2017-01-30 14:33 | PN ---
Date/Time of Note Date/Time of Note DATE: 01/30/17 TIME: 14:24 Assessment/Plan Lines/Catheters IV Catheter Type (from [facility]): Peripheral IV Sierra in Place (from [facility]): No Assessment/Plan Assessment/Plan [facility] Progress Note Date of Service: 01/30/2017 Place of service: [facility] 5W tele Today's Assessment & Plan: Overall stable with many medical issues. Pancreatitis seems controlled and chemically normal. HIDA scan positive reflecting potential for chronic or acute on chronic cholecystitis. Even without the HIDA scan, the patient has enough indication for cholecystectomy at some point in the near future to hopefully try and prevent the same issue happening in the future. With a positive HIDA scan, we have more of an urgency. Patient is sufficiently far enough from his last dose of chemotherapy that the operation can be done with reasonable risk and with adequate expectation of uncomplicated healing. The only issue would be the amount of time that the patient will need to heal from surgery and whether will have any complications or not afterwards and might delay receiving further chemotherapy down the line. One advantage of doing an operation for the gallbladder is that we could potentially set this up with intraoperative ultrasound-guided biopsy of the lesion in the right lobe of liver , which would give us more tissue evaluation of the state of the disease and for any further markers that may need to be looked at for adjustment of his chemotherapy regimen. The option of percutaneous cholecystostomy tube placement is also on the table, although most oncologists would rather not give chemotherapy with a cholecystostomy drain in place. I discussed all of this with the patient (no family present during my discussions with the patient) and answered all of his questions to the best of my ability. I believe that he understood and agreed with the plans. I also plan on discussing this with the team as well. 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 Very difficult situation with somewhat poor prognosis. Fortunately no indication for acute surgical intervention. No evidence of infected necrosis that would require drain placement or surgical necrosectomy of the pancreas. Would be important to try and avoid major interventions in order to not delay life-prolonging chemotherapeutic intervention. With above assessment, I've recommended the followin. Continue aggressive medical management 2. Cont full liquid diet and advance slowly 3. Follow GIs recommendations 4. If it would make a difference in management, may consider percutaneous biopsy of segment 6 area of abnormality in the liver 5. Multidisciplinary tumor board presentation and discussions 6. Consideration for clinical trials once improved medically 7. LFT's, amylase and lipase checks tomorrow with labs 8. Will likely benefit from aggressive bowel regimen (some of the pain likely from constipation) 9. Will consider and discuss timing of laparoscopic cholecystectomy, likely with intraoperative ultrasound biopsy of the liver lesion in segment 6 in the next few days with the rest of the team Thank you very much for having me involved in the care of this very pleasant patient and wonderful family. If you have any questions, please feel free to contact me at [phone]. Nature of presenting problem: High severity Please note that, given the extensive number of diagnoses or management options , the extensive amount and/or complexity of data needed to be reviewed, and high risk of complications and/or morbidity or mortality, this qualifies as high complexity type of decision-making. Disclaimer: Inadvertent spelling and grammatical errors are likely due to EHR/ dictation software use and do not reflect on the quality of delivered patient care. Also, please note that the electronic time recorded on this node does not necessarily reflect the actual time of the visit. 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 HIDA scan positive 01/28/2017. Status post CT-guided left flank subcutaneous nodule biopsy [facility] 01/12/2017. Comorbidities: 1. BMI 40.7 2. Small right pleural effusion with atelectasis and right lung base pneumonia. 3. Large B cell anaplastic lymphoma; status post chemo 1 month prior to presentation 4. Sepsis 5. Hyponatremia 6. Hypokalemia 7. Acute renal injury Subjective: No major events or complaints; reported no major new abd pain and under control with medications; no significant reported nausea or vomiting and no major diarrhea; no sob or cp; + flatus; + BM; minimal to no activity. Objective: Vitals: See below I's & O's: See below Exam: GENERAL: On exam, the patient was lying in bed and appeared to be comfortable and in no acute distress. Diaphoretic. ABDOMEN: Soft, minimal to no tenderness and nondistended. There are no peritoneal signs or guarding. SKIN: Skin appears to be pink and feels warm to touch. NEUROLOGIC: Patient is awake, alert, and follows commands appropriately. Labs: See below Exam/Review of Systems Vital Signs Vitals Vital Signs Date Time Temp Pulse Resp B/P Pulse Ox O2 Delivery O2 Flow Rate FiO2 01/30/17 12:24 127 01/30/17 11:24 99.1 20 115/55 97 01/30/17 07:36 2.0 01/30/17 07:36 Nasal Cannula Intake and Output 01/29/17 01/29/17 01/30/17 15:00 23:00 07:00 Intake Total 200 ml 1424 ml 1737 ml Output Total 2000 ml 2800 ml Balance 200 ml -576 ml -1063 ml Results Result Diagram: 01/30/17 1029 01/30/17 1029 LENKA HERNANDEZ M.D. Jan 30, 2017 14:33
--- NOTE | 2017-01-30 15:15 | CONS ---
Date/Time of Note Date/Time of Note DATE: 01/30/17 TIME: 15:14 Assessment/Plan Assessment/Plan Chief Complaint/Hosp Course SUBJECTIVE DATA: No acute changes overnight patient is alert looks comfortable Temperature 99.1 pulse 120 respirations 20 blood pressure 115/55 saturation 97 on nasal cannula WBC 2.7 H&H 9.1 and 27.8 platelets 168 neutrophils 82.3 BUN 5 creatinine 0.51 MICROBIOLOGY: Blood cultures remain negative. Urine culture negative. Sputum culture growing MDR gram-negative rods. Right lower extremity wound culture grew Citrobacter Freundii , Enterococcus species, Corynebacterium species, and Stenotrophomonas maltophilia. Sputum cx + MDR Kleb INDWELLINGS: PICC line. ANTIMICROBIALS: Bactrim, Levaquin, Zosyn, colistin inhalation. PHYSICAL EXAMINATION: This is an obese, chronically ill- appearing, middle aged man who is awake, in no distress. HEENT: Head atraumatic, normocephalic. Sclerae anicteric. Buccal mucosa dry. NECK: Obese. CHEST: Rise symmetrical. Breath sounds diminished at the bases. HEART: S1, S2. Tachycardic, regular. ABDOMEN: Obese, soft, bowel sounds present. EXTREMITIES: Without cyanosis, bilateral edema with multiple unstageable wounds. SKIN: Generalized edema with multiple necrotic wounds. ASSESSMENT: 1. S/p septic shock 2. Status post urinary tract infection. 3. Multiple necrotic wounds with wound culture growing multidrug resistant organisms, on antibiotics. 4. Resolving pancreatitis 5. Severe hypocalcemia, Endocrinology follows. 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 7. Pulmonary nodular opacities consistent with metastatic lymphoma, rule out out pneumonia. 8. Pancytopenia. PLAN: Remains stable, continue present care, antibiotics, local wound care, follow recommendations of consultants. DW staff/pt Problems: Consultation Date/Type/Reason Admit Date/Time Jan 09, 2017 at 19:08 Initial Consult Date 01/15/17 Type of Consultation: id Referring Provider: YAO RAHMAN Exam/Review of Systems Vital Signs Vitals Vital Signs Date Time Temp Pulse Resp B/P Pulse Ox O2 Delivery O2 Flow Rate FiO2 01/30/17 12:24 127 01/30/17 11:24 99.1 20 115/55 97 01/30/17 07:36 2.0 01/30/17 07:36 Nasal Cannula Intake and Output 01/29/17 01/29/17 01/30/17 15:00 23:00 07:00 Intake Total 200 ml 1424 ml 1737 ml Output Total 2000 ml 2800 ml Balance 200 ml -576 ml -1063 ml Results Result Diagram: 01/30/17 1029 01/30/17 1029 Results 24 hrs Laboratory Tests Test 01/30/17 10:29 White Blood Count 2.7 L Red Blood Count 3.17 L Hemoglobin 9.1 L Hematocrit 27.8 L Mean Corpuscular Volume 87.7 Mean Corpuscular Hemoglobin 28.7 L Mean Corpuscular Hemoglobin Concent 32.7 Red Cell Distribution Width 17.2 H Platelet Count 168 Mean Platelet Volume 10.4 Neutrophils % 83.3 H Lymphocytes % 2.6 L Monocytes % 9.6 Eosinophils % 1.5 Basophils % 0.4 Nucleated Red Blood Cells % 0.0 Neutrophils # (Manual) 2 Lymphocytes # 0.1 L Monocytes # 0.3 Eosinophils # 0.0 Basophils # 0.0 Nucleated Red Blood Cells # 0.0 Sodium Level 122 L Potassium Level 4.1 Chloride Level 85 L Carbon Dioxide Level 24 Anion Gap 17 H Blood Urea Nitrogen 5 L Creatinine 0.51 L Glucose Level 286 #H Calcium Level 8.6 Total Bilirubin 0.5 Direct Bilirubin 0.00 Indirect Bilirubin 0.5 Aspartate Amino Transf (AST/SGOT) 98 H Alanine Aminotransferase (ALT/SGPT) 73 H Alkaline Phosphatase 273 H Total Protein 6.2 Albumin 3.3 Globulin 2.90 Albumin/Globulin Ratio 1.13 Medications Medications Current Medications Docusate Sodium (Colace) 100 mg Q12H PRN PO CONSTIPATION Last administered on 10:46; Admin Dose 100 MG; Start 01/09/17 at 19:30 Magnesium Hydroxide (Milk Of Mag) 30 ml DAILY PRN PO CONSTIPATION Last administered on 01/29/17 09:33; Admin Dose 30 ML; Start 01/09/17 at 19:30 Sodium Biphosphate/ Sodium Phosphate (Fleet Enema) 133 ml DAILY PRN [place] CONSTIPATION; Start 01/09/17 at 19:30 Heparin Sodium (Porcine) 5000 unit 5,000 unit Q12 SC Last administered on 09:43; Admin Dose 5,000 UNIT; Start 01/09/17 at 21:00; Status Future Hold Piperacillin Sod/ Tazobactam Sod (Zosyn 3.375gm/ 100 ml (Pmx)) 100 ml @ 200 mls /hr Q6 IVPB Last administered on 01/30/17 11:40; Admin Dose 200 MLS/HR; Start 01/10/17 at 00:00 Nitroglycerin (Nitroglycerin (Sl Tab) 0.4 Mg) 1 tab Q5M PRN SL ANGINA; Start at 19:30 Miscellaneous Information (Pending Santyl Order For Wound Care) This patient aranda... PRN PRN XX WOUND CARE; Start 01/10/17 at 03:30 Ondansetron HCl 4 mg 4 mg Q6 IV Last administered on 01/30/17 11:40; Admin Dose 4 MG; Start 01/10/17 at 15:30 Acetaminophen (Ofirmev 1000mg/ 100ml Iv) 100 ml @ 400 mls/hr Q6 IVPB Last administered on 01/30/17 11:40; Admin Dose 400 MLS/HR; Start 01/10/17 at 16:30 IV Flush (NS 10 ml) 10 ml PRN PRN IV IV PROTOCOL; Start 01/10/17 at 20:30 Prednisone 10 mg 10 mg DAILY PO Last administered on 01/30/17 08:34; Admin Dose 10 MG; Start 01/15/17 at 09:00 Levofloxacin/ Dextrose 150 ml @ 100 mls/hr Q24H IVPB Last administered on 01/29 16:44; Admin Dose 100 MLS/HR; Start 01/18/17 at 16:00 Trimethoprim/ Sulfamethoxazole 25 ml/Dextrose 525 ml @ 343.333 mls/hr Q8 IVPB Last administered on 01/30/17 13:45; Admin Dose 343.333 MLS/HR; Start 01/19/17 at 13:30 Hydromorphone HCl/ Dextrose (Dilaudid/D5W) 50 ml @ 2 mls/hr TITRATE IV Last administered on 01/30/17 13:39; Admin Dose 2 MLS/HR; Start 01/23/17 at 16:30 Ergocalciferol (Drisdol) 50,000 unit We@09 PO Last administered on 01/25/17 08 :39; Admin Dose 50,000 UNIT; Start 01/25/17 at 09:00 Calcium Carbonate (Oyster Shell Calcium) 1.25 gm BID PO Last administered on 08:34; Admin Dose 1.25 GM; Start 01/24/17 at 21:00 Pantoprazole (Protonix Tab) 40 mg DAILY@06 PO Last administered on 01/30/17 05 :13; Admin Dose 40 MG; Start 01/26/17 at 06:00 Hydromorphone HCl (Dilaudid) 1 mg Q2 PRN IV PAIN Last administered on 13:45; Admin Dose 1 MG; Start 01/25/17 at 21:00 Atenolol (Tenormin) 25 mg BID PO Last administered on 01/30/17 12:18; Admin Dose 25 MG; Start 01/30/17 at 12:00 DEENA LOCO NP Jan 30, 2017 15:14
[2017-01-30] MEDS: LEVOFLOXACIN 750MG/D5W (PMX) 150 ML IVPB SCH (15:26)
--- NOTE | 2017-01-30 18:07 | RADRPT ---
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 Physician: ARGENIS GARCIA Quality: Adequate Procedures: Transthoracic echocardiogram with 2D, M-Mode, and Doppler examination, no subcostals abdominal bandage. Indications: Evaluate Left Ventricular function, S/P Chemo. 2D/M Mode Doppler Measurement Value Normal Ranges Measurement Value Normal Ranges AoR Diam MM 3.0 cm AV Peak Ayden 1.2 m/sec ACS MM 2.1 cm AV Peak PG 5.7 mmHg LVIDd 2D 5.0 3.5 - 5.6 cm LVOT Peak Ayden 1.1 m/sec LVIDs 2D 2.8 2.1 - 4.1 cm LVOT Peak PG 4.4 mmHg LVPWd 2D 1.2 0.6 - 1.1 cm MV E Peak Ayden 0.6 m/sec IVSd 2D 1.2 0.6 - 1.1 cm MV A Peak Ayden 0.7 m/sec EDV 2D 117.1 cm3 MV E/A 0.9 ESV 2D 21.1 cm3 MV Decel Time 180 msec LA Dimen 2D 4.1 2.3 - 4.0 cm MV Decel Sioux 3 MV E/A 0.9 TR Peak Ayden 2.8 m/sec TR Peak PG 31.6 mmHg PV Peak Ayden 1.2 m/sec PV Peak PG 6.0 mmHg RVSP 34.6 mmHg Findings Left Ventricle: Normal left ventricular systolic function. Normal left ventricular cavity size. Mild concentric left ventricular hypertrophy. Ejection fraction is visually estimated at 60 %. Tissue Doppler/Mitral Doppler indices are consistent with impaired relaxation (Stage I diastolic dysfunction). E/E`=6. Right Ventricle: Normal right ventricular size. Normal right ventricular systolic function. Left Atrium: There is mild enlargement of left atrium. Right Atrium: The right atrium is normal in size. Atrial Septum: Not well visualized. Mitral Valve: Normal appearance and function of the mitral valve with trace physiologic regurgitation. Aortic Valve: Normal appearance of the aortic valve. No significant aortic stenosis or insufficiency. Tricuspid Valve: Normal appearance of the tricuspid valve. Estimated peak PA systolic pressure 35 mmHg. There is trace to mild tricuspid regurgitation. Pulmonic Valve: Normal pulmonic valve appearance. No evidence of pulmonic regurgitation. Pericardium: Normal pericardium with no significant pericardial effusion. Aorta: Normal aortic root. IVC: The IVC is not well visualized. Pulmonary Artery: Normal pulmonary artery size. Conclusions 1.Normal left ventricular systolic function. Normal left ventricular cavity size. Mild concentric left ventricular hypertrophy. Ejection fraction is visually estimated at 60 %. Tissue Doppler/Mitral Doppler indices are consistent with impaired relaxation (Stage I diastolic dysfunction). E/E`=6. 2.There is mild enlargement of left atrium. 3.Normal appearance and function of the mitral valve with trace physiologic regurgitation. 4.Normal appearance of the tricuspid valve. Estimated peak PA systolic pressure 35 mmHg. There is trace to mild tricuspid regurgitation. Electronically Signed By: Abdullahi Baez 30-Jan-2017 18:06:19 -0700 Patient Name: SONYA SHAH Study Date: 29-Jan-2017 [id number]
[2017-01-30] MEDS ORDERED: ATENOLOL 25 MG TAB PO SCH (21:00)
--- NOTE | 2017-01-30 23:33 | CONS ---
Date/Time of Note Date/Time of Note DATE: 01/30/17 TIME: 23:32 Assessment/Plan Assessment/Plan Chief Complaint/Hosp Course Anaplastic B-cell Lymphoma pt was dx'd with lymphoma a year and half ago , it turned into an aggressive type. His last chemo was a month ago and hadn't had since due to experiencing similar presenting symptoms. record from pt's oncologist Kain Wisdom - Kenji Left flank mass, CT-guided core needle biopsies with touch imprints: Completely necrotic tissue, insufficient for pathologic evaluation. PER PT REPORT- reportedly scheduled for change in therapy due to what appears to be lack of adequate response LEUKOPENIA IN PT WITH HNL ON CHEMO AND WITH SEPTIC PICTURE MONITOR BLOOD COUNT CLOSELY POST NEUPOGEN WBC- FLUCTUATING , NOT IN NEUTROPENIA LEVEL AT PRESENT PANCYTOPENIA POST CHEMO CONT TO MONITOR PRBC NEEDED Sepsis 2/2 PNA - abx, IVF - f/u culture results - ID pancreatitis. Abd Pain with N/V: 2/2 known lymphoma - pain mgmt - Anti-emetics Hyponatremia and Hypokalemia: 2/2 vomiting - NS IVF - replete K+ as needed Presumed RAMU: likely pre-renal 2/2 vomiting - cont IVF for now Problems: Consultation Date/Type/Reason Admit Date/Time Jan 09, 2017 at 19:08 Initial Consult Date 01/10/17 Type of [facility]ation: [facility] Referring Provider: YAO RAHMAN 24 HR Interval Summary Free Text/Dictation ALL NOTED NO NEW EVENTS Exam/Review of Systems Vital Signs Vitals Vital Signs Date Time Temp Pulse Resp B/P Pulse Ox O2 Delivery O2 Flow Rate FiO2 01/30/17 20:42 2.0 01/30/17 20:42 100 18 97 Nasal Cannula 01/30/17 19:40 97.5 118/63 Intake and Output 01/29/17 01/29/17 01/30/17 15:00 23:00 07:00 Intake Total 200 ml 1424 ml 1737 ml Output Total 2000 ml 2800 ml Balance 200 ml -576 ml -1063 ml Exam This is an obese, chronically ill- appearing, middle aged man who is awake, in no distress. HEENT: Head atraumatic, normocephalic. Sclerae anicteric. Buccal mucosa dry. NECK: Obese. CHEST: Rise symmetrical. Breath sounds diminished at the bases. HEART: S1, S2. Tachycardic, regular. ABDOMEN: Obese, soft, bowel sounds present. EXTREMITIES: Without cyanosis, bilateral edema with multiple unstageable wounds. SKIN: Generalized edema with multiple necrotic wounds. Results Result Diagram: 01/30/17 1029 01/30/17 1029 Results 24 hrs Laboratory Tests Test 01/30/17 10:29 White Blood Count 2.7 L Red Blood Count 3.17 L Hemoglobin 9.1 L Hematocrit 27.8 L Mean Corpuscular Volume 87.7 Mean Corpuscular Hemoglobin 28.7 L Mean Corpuscular Hemoglobin Concent 32.7 Red Cell Distribution Width 17.2 H Platelet Count 168 Mean Platelet Volume 10.4 Neutrophils % 83.3 H Lymphocytes % 2.6 L Monocytes % 9.6 Eosinophils % 1.5 Basophils % 0.4 Nucleated Red Blood Cells % 0.0 Neutrophils # (Manual) 2 Lymphocytes # 0.1 L Monocytes # 0.3 Eosinophils # 0.0 Basophils # 0.0 Nucleated Red Blood Cells # 0.0 Sodium Level 122 L Potassium Level 4.1 Chloride Level 85 L Carbon Dioxide Level 24 Anion Gap 17 H Blood Urea Nitrogen 5 L Creatinine 0.51 L Glucose Level 286 #H Calcium Level 8.6 Total Bilirubin 0.5 Direct Bilirubin 0.00 Indirect Bilirubin 0.5 Aspartate Amino Transf (AST/SGOT) 98 H Alanine Aminotransferase (ALT/SGPT) 73 H Alkaline Phosphatase 273 H Total Protein 6.2 Albumin 3.3 Globulin 2.90 Albumin/Globulin Ratio 1.13 Medications Medications Current Medications Docusate Sodium (Colace) 100 mg Q12H PRN PO CONSTIPATION Last administered on 10:46; Admin Dose 100 MG; Start 01/09/17 at 19:30 Magnesium Hydroxide (Milk Of Mag) 30 ml DAILY PRN PO CONSTIPATION Last administered on 01/29/17 09:33; Admin Dose 30 ML; Start 01/09/17 at 19:30 Sodium Biphosphate/ Sodium Phosphate (Fleet Enema) 133 ml DAILY PRN [place] CONSTIPATION; Start 01/09/17 at 19:30 Heparin Sodium (Porcine) 5000 unit 5,000 unit Q12 SC Last administered on 09:43; Admin Dose 5,000 UNIT; Start 01/09/17 at 21:00; Status Future Hold Piperacillin Sod/ Tazobactam Sod (Zosyn 3.375gm/ 100 ml (Pmx)) 100 ml @ 200 mls /hr Q6 IVPB Last administered on 01/30/17 17:56; Admin Dose 200 MLS/HR; Start 01/10/17 at 00:00 Nitroglycerin (Nitroglycerin (Sl Tab) 0.4 Mg) 1 tab Q5M PRN SL ANGINA; Start at 19:30 Miscellaneous Information (Pending Santyl Order For Wound Care) This patient aranda... PRN PRN XX WOUND CARE; Start 01/10/17 at 03:30 Ondansetron HCl 4 mg 4 mg Q6 IV Last administered on 01/30/17 17:51; Admin Dose 4 MG; Start 01/10/17 at 15:30 Acetaminophen (Ofirmev 1000mg/ 100ml Iv) 100 ml @ 400 mls/hr Q6 IVPB Last administered on 01/30/17 17:52; Admin Dose 400 MLS/HR; Start 01/10/17 at 16:30 IV Flush (NS 10 ml) 10 ml PRN PRN IV IV PROTOCOL; Start 01/10/17 at 20:30 Prednisone 10 mg 10 mg DAILY PO Last administered on 01/30/17 08:34; Admin Dose 10 MG; Start 01/15/17 at 09:00 Levofloxacin/ Dextrose 150 ml @ 100 mls/hr Q24H IVPB Last administered on 01/30 15:26; Admin Dose 100 MLS/HR; Start 01/18/17 at 16:00 Trimethoprim/ Sulfamethoxazole 25 ml/Dextrose 525 ml @ 343.333 mls/hr Q8 IVPB Last administered on 01/30/17 21:54; Admin Dose 343.333 MLS/HR; Start 01/19/17 at 13:30 Hydromorphone HCl/ Dextrose (Dilaudid/D5W) 50 ml @ 2 mls/hr TITRATE IV Last administered on 01/30/17 13:39; Admin Dose 2 MLS/HR; Start 01/23/17 at 16:30 Ergocalciferol (Drisdol) 50,000 unit We@09 PO Last administered on 01/25/17 08 :39; Admin Dose 50,000 UNIT; Start 01/25/17 at 09:00 Calcium Carbonate (Oyster Shell Calcium) 1.25 gm BID PO Last administered on 20:33; Admin Dose 1.25 GM; Start 01/24/17 at 21:00 Pantoprazole (Protonix Tab) 40 mg DAILY@06 PO Last administered on 01/30/17 05 :13; Admin Dose 40 MG; Start 01/26/17 at 06:00 Hydromorphone HCl (Dilaudid) 1 mg Q2 PRN IV PAIN Last administered on 22:49; Admin Dose 1 MG; Start 01/25/17 at 21:00 Atenolol (Tenormin) 25 mg BID PO Last administered on 01/30/17 20:34; Admin Dose 25 MG; Start 01/30/17 at 12:00 MOIRA BIRMINGHAM MD Jan 30, 2017 23:33
[2017-01-31] VITALS (12 sets, daily range): BP systolic 99–111; BP diastolic 54–58; PULSE 82–115; RESP 16–20
[2017-01-31] MEDS: ONDANSETRON 4 MG INJ IV SCH ×4 (00:12→17:28)
[2017-01-31] MEDS: PIPER-TAZO 3.375 GM IV (PMX) 100 ML IVPB SCH ×4 (00:13→17:28)
[2017-01-31] MEDS: ACETAMINOPHEN 1000MG/100ML IV 100 ML IVPB SCH ×4 (00:13→17:28)
[2017-01-31] MEDS: HYDROmorphONE 1 MG/ML SYG IV PRN ×6 (02:14→21:11)
[2017-01-31] MEDS: TRIMETHOPRIM/SULFAMETHOXAZOLE 25 ML in DEXTROSE 5% 500 ML IVPB SCH (05:21)
[2017-01-31] MEDS: PANTOPRAZOLE (EC) 40 MG TAB PO SCH (05:37)
[2017-01-31] MEDS: IPRATROPIUM (NEB) 0.5 MG/2.5 ML AMP HHN PRN (08:08)
[2017-01-31] MEDS: COLISTIMETHATE (25 MG/ML INHAL SYG) NEB SCH ×2 (08:08→21:21)
[2017-01-31] MEDS: LEVALBUTEROL (NEB) 0.63 MG/3 ML AMP HHN PRN (08:08)
[2017-01-31] MEDS: CALCIUM CARBONATE 1.25 GM TAB PO SCH ×2 (08:17→21:10)
[2017-01-31] MEDS: predniSONE 20 MG TAB PO SCH (08:17)
[2017-01-31] MEDS: ATENOLOL 25 MG TAB PO SCH ×2 (08:18→21:00)
--- NOTE | 2017-01-31 09:40 | PN ---
Date/Time of Note Date/Time of Note DATE: 01/31/17 TIME: 09:39 Assessment/Plan Lines/Catheters IV [facility] Type ([facility] PICC Line Urinary Cath still in place: No Assessment/Plan Chief Complaint/Hosp Course error.Please see other note signed Problems: Subjective 24 Hr Interval Summary Free Text/Dictation Fevers 102 this am, tachycardic Exam/Review of Systems Vital Signs Vitals Vital Signs Date Time Temp Pulse Resp B/P Pulse Ox O2 Delivery O2 Flow Rate FiO2 01/31/17 09:28 98.7 01/31/17 09:15 115 01/31/17 08:25 18 99 Nasal Cannula 2.0 01/31/17 07:19 110/55 Intake and Output 01/30/17 01/30/17 01/31/17 15:00 23:00 07:00 Intake Total 200 ml 1550 ml 925 ml Output Total 725 ml 1900 ml 1600 ml Balance -525 ml -350 ml -675 ml Results Result Diagram: 01/30/17 1029 01/30/17 1029 Results 24 hrs Laboratory Tests Test 01/30/17 10:29 White Blood Count 2.7 L Red Blood Count 3.17 L Hemoglobin 9.1 L Hematocrit 27.8 L Mean Corpuscular Volume 87.7 Mean Corpuscular Hemoglobin 28.7 L Mean Corpuscular Hemoglobin Concent 32.7 Red Cell Distribution Width 17.2 H Platelet Count 168 Mean Platelet Volume 10.4 Neutrophils % 83.3 H Lymphocytes % 2.6 L Monocytes % 9.6 Eosinophils % 1.5 Basophils % 0.4 Nucleated Red Blood Cells % 0.0 Neutrophils # (Manual) 2 Lymphocytes # 0.1 L Monocytes # 0.3 Eosinophils # 0.0 Basophils # 0.0 Nucleated Red Blood Cells # 0.0 Sodium Level 122 L Potassium Level 4.1 Chloride Level 85 L Carbon Dioxide Level 24 Anion Gap 17 H Blood Urea Nitrogen 5 L Creatinine 0.51 L Glucose Level 286 #H Calcium Level 8.6 Total Bilirubin 0.5 Direct Bilirubin 0.00 Indirect Bilirubin 0.5 Aspartate Amino Transf (AST/SGOT) 98 H Alanine Aminotransferase (ALT/SGPT) 73 H Alkaline Phosphatase 273 H Total Protein 6.2 Albumin 3.3 Globulin 2.90 Albumin/Globulin Ratio 1.13 Medications Medications Current Medications Docusate Sodium (Colace) 100 mg Q12H PRN PO CONSTIPATION Last administered on 10:46; Admin Dose 100 MG; Start 01/09/17 at 19:30 Magnesium Hydroxide (Milk Of Mag) 30 ml DAILY PRN PO CONSTIPATION Last administered on 01/29/17 09:33; Admin Dose 30 ML; Start 01/09/17 at 19:30 Sodium Biphosphate/ Sodium Phosphate (Fleet Enema) 133 ml DAILY PRN [place] CONSTIPATION; Start 01/09/17 at 19:30 Heparin Sodium (Porcine) 5000 unit 5,000 unit Q12 SC Last administered on 09:43; Admin Dose 5,000 UNIT; Start 01/09/17 at 21:00; Status Future Hold Piperacillin Sod/ Tazobactam Sod (Zosyn 3.375gm/ 100 ml (Pmx)) 100 ml @ 200 mls /hr Q6 IVPB Last administered on 01/31/17 05:38; Admin Dose 200 MLS/HR; Start 01/10/17 at 00:00 Nitroglycerin (Nitroglycerin (Sl Tab) 0.4 Mg) 1 tab Q5M PRN SL ANGINA; Start at 19:30 Miscellaneous Information (Pending [facility] Order For Wound Care) This patient aranda... PRN PRN XX WOUND CARE; Start 01/10/17 at 03:30 Ondansetron HCl 4 mg 4 mg Q6 IV Last administered on 01/31/17 05:21; Admin Dose 4 MG; Start 01/10/17 at 15:30 Acetaminophen (Ofirmev 1000mg/ 100ml Iv) 100 ml @ 400 mls/hr Q6 IVPB Last administered on 01/31/17 05:41; Admin Dose 400 MLS/HR; Start 01/10/17 at 16:30 IV Flush (NS 10 ml) 10 ml PRN PRN IV IV PROTOCOL; Start 01/10/17 at 20:30 Prednisone 10 mg 10 mg DAILY PO Last administered on 01/31/17 08:17; Admin Dose 10 MG; Start 01/15/17 at 09:00 Levofloxacin/ Dextrose 150 ml @ 100 mls/hr Q24H IVPB Last administered on 01/30 15:26; Admin Dose 100 MLS/HR; Start 01/18/17 at 16:00 Trimethoprim/ Sulfamethoxazole 25 ml/Dextrose 525 ml @ 343.333 mls/hr Q8 IVPB Last administered on 01/31/17 05:21; Admin Dose 343.333 MLS/HR; Start 01/19/17 at 13:30 Hydromorphone HCl/ Dextrose (Dilaudid/D5W) 50 ml @ 2 mls/hr TITRATE IV Last administered on 01/30/17 13:39; Admin Dose 2 MLS/HR; Start 01/23/17 at 16:30 Ergocalciferol (Drisdol) 50,000 unit We@09 PO Last administered on 01/25/17 08 :39; Admin Dose 50,000 UNIT; Start 01/25/17 at 09:00 Calcium Carbonate (Oyster Shell Calcium) 1.25 gm BID PO Last administered on 08:17; Admin Dose 1.25 GM; Start 01/24/17 at 21:00 Pantoprazole (Protonix Tab) 40 mg DAILY@06 PO Last administered on 01/31/17 05 :37; Admin Dose 40 MG; Start 01/26/17 at 06:00 Hydromorphone HCl (Dilaudid) 1 mg Q2 PRN IV PAIN Last administered on 08:18; Admin Dose 1 MG; Start 01/25/17 at 21:00 Atenolol (Tenormin) 25 mg BID PO Last administered on 01/31/17 08:18; Admin Dose 25 MG; Start 01/30/17 at 12:00 TAMARA HARTMANN MD Jan 31, 2017 09:40
--- NOTE | 2017-01-31 09:43 | PN ---
Date/Time of Note Date/Time of Note DATE: 01/31/17 TIME: 09:41 Assessment/Plan Lines/Catheters IV Catheter Type (from Nrs): PICC Line Urinary Cath still in place: No Assessment/Plan Assessment/Plan Constitutional: alert, mild distress +sweating Eyes: nl conjunctiva Respiratory: diminished breath sounds Cardiovascular: regular rate and rhythm Gastrointestinal: bowel sounds, distended, soft Extremities: edema Multiple wounds PICC line Subjective 24 Hr Interval Summary Free Text/Dictation Fevers 102 this am Tacycardic Exam/Review of Systems Vital Signs Vitals Vital Signs Date Time Temp Pulse Resp B/P Pulse Ox O2 Delivery O2 Flow Rate FiO2 01/31/17 09:28 98.7 01/31/17 09:15 115 01/31/17 08:25 18 99 Nasal Cannula 2.0 01/31/17 07:19 110/55 Intake and Output 01/30/17 01/30/17 01/31/17 15:00 23:00 07:00 Intake Total 200 ml 1550 ml 925 ml Output Total 725 ml 1900 ml 1600 ml Balance -525 ml -350 ml -675 ml Results Result Diagram: 01/30/17 1029 01/30/17 1029 Results 24 hrs Laboratory Tests Test 01/30/17 10:29 White Blood Count 2.7 L Red Blood Count 3.17 L Hemoglobin 9.1 L Hematocrit 27.8 L Mean Corpuscular Volume 87.7 Mean Corpuscular Hemoglobin 28.7 L Mean Corpuscular Hemoglobin Concent 32.7 Red Cell Distribution Width 17.2 H Platelet Count 168 Mean Platelet Volume 10.4 Neutrophils % 83.3 H Lymphocytes % 2.6 L Monocytes % 9.6 Eosinophils % 1.5 Basophils % 0.4 Nucleated Red Blood Cells % 0.0 Neutrophils # (Manual) 2 Lymphocytes # 0.1 L Monocytes # 0.3 Eosinophils # 0.0 Basophils # 0.0 Nucleated Red Blood Cells # 0.0 Sodium Level 122 L Potassium Level 4.1 Chloride Level 85 L Carbon Dioxide Level 24 Anion Gap 17 H Blood Urea Nitrogen 5 L Creatinine 0.51 L Glucose Level 286 #H Calcium Level 8.6 Total Bilirubin 0.5 Direct Bilirubin 0.00 Indirect Bilirubin 0.5 Aspartate Amino Transf (AST/SGOT) 98 H Alanine Aminotransferase (ALT/SGPT) 73 H Alkaline Phosphatase 273 H Total Protein 6.2 Albumin 3.3 Globulin 2.90 Albumin/Globulin Ratio 1.13 Medications Medications Current Medications Docusate Sodium (Colace) 100 mg Q12H PRN PO CONSTIPATION Last administered on 10:46; Admin Dose 100 MG; Start 01/09/17 at 19:30 Magnesium Hydroxide (Milk Of Mag) 30 ml DAILY PRN PO CONSTIPATION Last administered on 01/29/17 09:33; Admin Dose 30 ML; Start 01/09/17 at 19:30 Sodium Biphosphate/ Sodium Phosphate (Fleet Enema) 133 ml DAILY PRN [place] CONSTIPATION; Start 01/09/17 at 19:30 Heparin Sodium (Porcine) 5000 unit 5,000 unit Q12 SC Last administered on 09:43; Admin Dose 5,000 UNIT; Start 01/09/17 at 21:00; Status Future Hold Piperacillin Sod/ Tazobactam Sod (Zosyn 3.375gm/ 100 ml (Pmx)) 100 ml @ 200 mls /hr Q6 IVPB Last administered on 01/31/17 05:38; Admin Dose 200 MLS/HR; Start 01/10/17 at 00:00 Nitroglycerin (Nitroglycerin (Sl Tab) 0.4 Mg) 1 tab Q5M PRN SL ANGINA; Start at 19:30 [facility] This patient aranda... PRN PRN XX WOUND CARE; Start 01/10/17 at 03:30 Ondansetron HCl 4 mg 4 mg Q6 IV Last administered on 01/31/17 05:21; Admin Dose 4 MG; Start 01/10/17 at 15:30 Acetaminophen (Ofirmev 1000mg/ 100ml Iv) 100 ml @ 400 mls/hr Q6 IVPB Last administered on 01/31/17 05:41; Admin Dose 400 MLS/HR; Start 01/10/17 at 16:30 IV Flush (NS 10 ml) 10 ml PRN PRN IV IV PROTOCOL; Start 01/10/17 at 20:30 Prednisone 10 mg 10 mg DAILY PO Last administered on 01/31/17 08:17; Admin Dose 10 MG; Start 01/15/17 at 09:00 Levofloxacin/ Dextrose 150 ml @ 100 mls/hr Q24H IVPB Last administered on 01/30 15:26; Admin Dose 100 MLS/HR; Start 01/18/17 at 16:00 Trimethoprim/ Sulfamethoxazole 25 ml/Dextrose 525 ml @ 343.333 mls/hr Q8 IVPB Last administered on 01/31/17 05:21; Admin Dose 343.333 MLS/HR; Start 01/19/17 at 13:30; Status Future Hold Hydromorphone HCl/ Dextrose (Dilaudid/D5W) 50 ml @ 2 mls/hr TITRATE IV Last administered on 01/30/17 13:39; Admin Dose 2 MLS/HR; Start 01/23/17 at 16:30 Ergocalciferol (Drisdol) 50,000 unit We@09 PO Last administered on 01/25/17 08 :39; Admin Dose 50,000 UNIT; Start 01/25/17 at 09:00 Calcium Carbonate (Oyster Shell Calcium) 1.25 gm BID PO Last administered on 08:17; Admin Dose 1.25 GM; Start 01/24/17 at 21:00 Pantoprazole (Protonix Tab) 40 mg DAILY@06 PO Last administered on 01/31/17 05 :37; Admin Dose 40 MG; Start 01/26/17 at 06:00 Hydromorphone HCl (Dilaudid) 1 mg Q2 PRN IV PAIN Last administered on 08:18; Admin Dose 1 MG; Start 01/25/17 at 21:00 Atenolol (Tenormin) 25 mg BID PO Last administered on 01/31/17 08:18; Admin Dose 25 MG; Start 01/30/17 at 12:00 TAMARA HARTMANN MD Jan 31, 2017 09:43
--- NOTE | 2017-01-31 09:51 | PN ---
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 pancreatitis on pain control with DIilaudid 2 Fevers 102 this am? source Wounds vs PIC Line with hx of septic shock 3 Hyponatremia on bactrim with d5 w 4 Acute renal injury resolved 5 Right pleural effusion with atelectasis and right lung base pneumonia, resolved. 6. Large B cell anaplastic lymphoma; status post chemo 1 month, leukopenia 7. 2 Hypoparathyroidism On Calcitrol and Caco3 8 Severe anemia 9 Morbid obesity 10 Skin wounds Assessment/Plan 1. Temple cx, Ua, ucx and Chest Xray, cx from wounds 2 Add Vanco ( PICC line) 3 d/c bactrim as in D5 W now with hyponatremia 4 colistin/levquin 3. Dilaudid for pain 4 GI/DVT prophylaxsis 5 ? Neupogen 6 Apppreciate all consults Subjective 24 Hr Interval Summary Free Text/Dictation Fevers 102 this am Denies any chest pain/sob Exam/Review of Systems Vital Signs Vitals Vital Signs Date Time Temp Pulse Resp B/P Pulse Ox O2 Delivery O2 Flow Rate FiO2 01/31/17 09:28 98.7 01/31/17 09:15 115 01/31/17 08:25 18 99 Nasal Cannula 2.0 01/31/17 07:19 110/55 Intake and Output 01/30/17 01/30/17 01/31/17 15:00 23:00 07:00 Intake Total 200 ml 1550 ml 925 ml Output Total 725 ml 1900 ml 1600 ml Balance -525 ml -350 ml -675 ml Results Result Diagram: 01/30/17 1029 01/30/17 1029 Results 24 hrs Laboratory Tests Test 01/30/17 10:29 White Blood Count 2.7 L Red Blood Count 3.17 L Hemoglobin 9.1 L Hematocrit 27.8 L Mean Corpuscular Volume 87.7 Mean Corpuscular Hemoglobin 28.7 L Mean Corpuscular Hemoglobin Concent 32.7 Red Cell Distribution Width 17.2 H Platelet Count 168 Mean Platelet Volume 10.4 Neutrophils % 83.3 H Lymphocytes % 2.6 L Monocytes % 9.6 Eosinophils % 1.5 Basophils % 0.4 Nucleated Red Blood Cells % 0.0 Neutrophils # (Manual) 2 Lymphocytes # 0.1 L Monocytes # 0.3 Eosinophils # 0.0 Basophils # 0.0 Nucleated Red Blood Cells # 0.0 Sodium Level 122 L Potassium Level 4.1 Chloride Level 85 L Carbon Dioxide Level 24 Anion Gap 17 H Blood Urea Nitrogen 5 L Creatinine 0.51 L Glucose Level 286 #H Calcium Level 8.6 Total Bilirubin 0.5 Direct Bilirubin 0.00 Indirect Bilirubin 0.5 Aspartate Amino Transf (AST/SGOT) 98 H Alanine Aminotransferase (ALT/SGPT) 73 H Alkaline Phosphatase 273 H Total Protein 6.2 Albumin 3.3 Globulin 2.90 Albumin/Globulin Ratio 1.13 Medications Medications Current Medications Docusate Sodium (Colace) 100 mg Q12H PRN PO CONSTIPATION Last administered on 10:46; Admin Dose 100 MG; Start 01/09/17 at 19:30 Magnesium Hydroxide (Milk Of Mag) 30 ml DAILY PRN PO CONSTIPATION Last administered on 01/29/17 09:33; Admin Dose 30 ML; Start 01/09/17 at 19:30 Sodium Biphosphate/ Sodium Phosphate (Fleet Enema) 133 ml DAILY PRN [place] CONSTIPATION; Start 01/09/17 at 19:30 Heparin Sodium (Porcine) 5000 unit 5,000 unit Q12 SC Last administered on 09:43; Admin Dose 5,000 UNIT; Start 01/09/17 at 21:00; Status Future Hold Piperacillin Sod/ Tazobactam Sod (Zosyn 3.375gm/ 100 ml (Pmx)) 100 ml @ 200 mls /hr Q6 IVPB Last administered on 01/31/17 05:38; Admin Dose 200 MLS/HR; Start 01/10/17 at 00:00 Nitroglycerin (Nitroglycerin (Sl Tab) 0.4 Mg) 1 tab Q5M PRN SL ANGINA; Start at 19:30 Miscellaneous Information (Pending Santyl Order For Wound Care) This patient aranda... PRN PRN XX WOUND CARE; Start 01/10/17 at 03:30 Ondansetron HCl 4 mg 4 mg Q6 IV Last administered on 01/31/17 05:21; Admin Dose 4 MG; Start 01/10/17 at 15:30 Acetaminophen (Ofirmev 1000mg/ 100ml Iv) 100 ml @ 400 mls/hr Q6 IVPB Last administered on 01/31/17 05:41; Admin Dose 400 MLS/HR; Start 01/10/17 at 16:30 IV Flush (NS 10 ml) 10 ml PRN PRN IV IV PROTOCOL; Start 01/10/17 at 20:30 Prednisone 10 mg 10 mg DAILY PO Last administered on 01/31/17 08:17; Admin Dose 10 MG; Start 01/15/17 at 09:00 Levofloxacin/ Dextrose 150 ml @ 100 mls/hr Q24H IVPB Last administered on 01/30 15:26; Admin Dose 100 MLS/HR; Start 01/18/17 at 16:00 Trimethoprim/ Sulfamethoxazole 25 ml/Dextrose 525 ml @ 343.333 mls/hr Q8 IVPB Last administered on 01/31/17 05:21; Admin Dose 343.333 MLS/HR; Start 01/19/17 at 13:30; Status Future Hold Hydromorphone HCl/ Dextrose (Dilaudid/D5W) 50 ml @ 2 mls/hr TITRATE IV Last administered on 01/30/17 13:39; Admin Dose 2 MLS/HR; Start 01/23/17 at 16:30 Ergocalciferol (Drisdol) 50,000 unit We@09 PO Last administered on 01/25/17 08 :39; Admin Dose 50,000 UNIT; Start 01/25/17 at 09:00 Calcium Carbonate (Oyster Shell Calcium) 1.25 gm BID PO Last administered on 08:17; Admin Dose 1.25 GM; Start 01/24/17 at 21:00 Pantoprazole (Protonix Tab) 40 mg DAILY@06 PO Last administered on 01/31/17 05 :37; Admin Dose 40 MG; Start 01/26/17 at 06:00 Hydromorphone HCl (Dilaudid) 1 mg Q2 PRN IV PAIN Last administered on 08:18; Admin Dose 1 MG; Start 01/25/17 at 21:00 Atenolol (Tenormin) 25 mg BID PO Last administered on 01/31/17 08:18; Admin Dose 25 MG; Start 01/30/17 at 12:00 TAMARA HARTMANN MD Jan 31, 2017 09:50
[2017-01-31] MEDS ORDERED: VANCOMYCIN IV PER PHARMACY XX SCH (10:00)
[2017-01-31 10:01] LABS: CREATININE 0.65 mg/dl (0.61-1.24)
[2017-01-31 10:24] LABS: ABNORMAL IP MESSAGE 1; BASOPHILS % 0.3 % (0.0-2.0); EOSINOPHILS % 0.5 % (0.0-7.0); HEMATOCRIT 30.7 % (42.0-52.0); LYMPHOCYTES # 0.1 10^3/ul (0.8-2.9); LYMPHOCYTES % 2.9 % (15.0-51.0); MEAN CORPUSCULAR HEMOGLOBIN 27.9 pg (29.0-33.0); MEAN CORPUSCULAR HGB CONC 32.6 g/dl (32.0-37.0); MEAN CORPUSCULAR VOLUME 85.8 fl (82.0-101.0); MEAN PLATELET VOLUME 10.6 fl (7.4-10.4); MONOCYTE # 0.2 10^3/ul (0.3-0.9); MONOCYTES % 6.4 % (0.0-11.0); NEUTROPHILS % 87.2 % (39.0-77.0); PLATELET COUNT 202 10^3/UL (140-415); POSITIVE DIFF @See below; RED BLOOD COUNT 3.58 10^6/ul (4.70-6.10); RED CELL DISTRIBUTION WIDTH 17.3 % (11.5-14.5); WHITE BLOOD COUNT 3.8 10^3/ul (4.8-10.8)
[2017-01-31] MEDS: SOD CHLORIDE 0.9% 1,000 ML IV SCH (11:03)
[2017-01-31] MEDS ORDERED: VANCOMYCIN 2 GM in SOD CHLORIDE 0.9% 500 ML IVPB SCH (11:30)
[2017-01-31 11:35] LABS: ADD UMIC YES; UR ASCORBIC ACID NEGATIVE (NEGATIVE); UR BILIRUBIN (Dip) NEGATIVE (NEGATIVE); UR BLOOD (Dip) NEGATIVE (NEGATIVE); UR CLARITY CLEAR (CLEAR); UR COLOR AMBER (YELLOW); UR GLUCOSE (Dip) NEGATIVE (NEGATIVE); UR KETONES (Dip) NEGATIVE (NEGATIVE); UR LEUKOCYTE ESTERASE (Dip) NEGATIVE Leu/ul (NEGATIVE); UR NITRITE (Dip) NEGATIVE (NEGATIVE); UR RBC 3 /HPF (0-5); UR SPECIFIC GRAVITY (Dip) 1.035 (1.003-1.030); UR TOTAL PROTEIN (Dip) 1+ mg/dl (NEGATIVE); UR UROBILINOGEN (Dip) 1+ mg/dL (NEGATIVE)
--- NOTE | 2017-01-31 11:41 | CONS ---
Date/Time of Note Date/Time of Note DATE: 01/31/17 TIME: 11:39 Assessment/Plan Assessment/Plan Additional Assessment/Plan 1. Tachycardia. Patient's tachycardia is likely with anemia, still tachy, but much better now - around 100s. OK to hydrate as needed. 2. Abnormal EKG. No specific ST-T changes noted. No particular treatment is required.R/o Mi. 3. History of lymphoma as described above. Patient is folowed by oncology team. 4. Skin lesions. Continue appropriate care. Likely with infection. The patient is on antibiotics. 5. Hypertension. Blood pressure well optimized. No particular treatment is required. CONTROLLED. Consultation Date/Type/Reason Admit Date/Time Jan 09, 2017 at 19:08 Initial Consult Date 01/15/17 Type of Consultation: [facility] Referring Provider: YAO RAHMAN 24 HR Interval Summary Free Text/Dictation Tachycardia. Patient's tachycardia is likely with anemia, still tachy, but much better now - around 100s. OK to hydrate as needed. ROS: No fever, no chills, no nausea, no vomiting, no diarrhea/constipation No recent weight changes No chest pain, no PND, no orthopnea No dizziness, blurred vision No thirst, no heat or cold intolerance Exam/Review of Systems Vital Signs Vitals Vital Signs Date Time Temp Pulse Resp B/P Pulse Ox O2 Delivery O2 Flow Rate FiO2 01/31/17 11:29 98.8 103 20 103/54 94 01/31/17 08:25 Nasal Cannula 2.0 Intake and Output 01/30/17 01/30/17 01/31/17 15:00 23:00 07:00 Intake Total 200 ml 1550 ml 925 ml Output Total 725 ml 1900 ml 1600 ml Balance -525 ml -350 ml -675 ml Exam General: WN/WD/NAD, AOx 3 HEENT: Unicetric/atraumatic/EOMI (follows commands) NECK: JVD elevated, no thyromegaly Lymph: no lymphadenopathy HEART: regular with no S3, II/ systolic murmur at apex LUNGS: Coarse sounds ABD: soft, NT, ND, +BS : Intact Neuro: non focal SKIN: chronic changes EXT: trace edema Results Result Diagram: 01/31/17 1005 01/31/17 0923 Results 24 hrs Laboratory Tests Test 01/31/17 09:23 01/31/17 10:05 01/31/17 11:00 01/31/17 11:20 Sodium Level 128 L Potassium Level 4.0 Chloride Level 86 L Carbon Dioxide Level 28 Anion Gap 18 H Blood Urea Nitrogen 6 L Creatinine 0.65 Glucose Level 91 # Calcium Level 9.0 White Blood Count 3.8 #L Red Blood Count 3.58 L Hemoglobin 10.0 L Hematocrit 30.7 L Mean Corpuscular Volume 85.8 Mean Corpuscular Hemoglobin 27.9 L Mean Corpuscular Hemoglobin Concent 32.6 Red Cell Distribution Width 17.3 H Platelet Count 202 # Mean Platelet Volume 10.6 H Neutrophils % 87.2 H Lymphocytes % 2.9 L Monocytes % 6.4 Eosinophils % 0.5 Basophils % 0.3 Nucleated Red Blood Cells % 0.0 Neutrophils # (Manual) 3 Lymphocytes # 0.1 L Monocytes # 0.2 L Eosinophils # 0.0 Basophils # 0.0 Nucleated Red Blood Cells # 0.0 Lab Scanned Report REFERENCE LAB Urine Color OMAR Urine Clarity CLEAR Urine pH 5.0 Urine Specific [place] 1.035 H Urine Ketones NEGATIVE Urine Nitrite NEGATIVE Urine Bilirubin NEGATIVE Urine Urobilinogen 1+ H Urine Leukocyte Esterase NEGATIVE Urine Microscopic RBC 3 Urine Microscopic WBC 4 Urine Hemoglobin NEGATIVE Urine Glucose NEGATIVE Urine Total Protein 1+ H Medications Medications Current Medications Docusate Sodium (Colace) 100 mg Q12H PRN PO CONSTIPATION Last administered on 10:46; Admin Dose 100 MG; Start 01/09/17 at 19:30 Magnesium Hydroxide (Milk Of Mag) 30 ml DAILY PRN PO CONSTIPATION Last administered on 01/29/17 09:33; Admin Dose 30 ML; Start 01/09/17 at 19:30 Sodium Biphosphate/ Sodium Phosphate (Fleet Enema) 133 ml DAILY PRN [place] CONSTIPATION; Start 01/09/17 at 19:30 Heparin Sodium (Porcine) 5000 unit 5,000 unit Q12 SC Last administered on 09:43; Admin Dose 5,000 UNIT; Start 01/09/17 at 21:00; Status Future Hold Piperacillin Sod/ Tazobactam Sod (Zosyn 3.375gm/ 100 ml (Pmx)) 100 ml @ 200 mls /hr Q6 IVPB Last administered on 01/31/17 05:38; Admin Dose 200 MLS/HR; Start 01/10/17 at 00:00 Nitroglycerin (Nitroglycerin (Sl Tab) 0.4 Mg) 1 tab Q5M PRN SL ANGINA; Start at 19:30 Miscellaneous Information (Pending Santyl Order For Wound Care) This patient aranda... PRN PRN XX WOUND CARE; Start 01/10/17 at 03:30 Ondansetron HCl 4 mg 4 mg Q6 IV Last administered on 01/31/17 11:04; Admin Dose 4 MG; Start 01/10/17 at 15:30 Acetaminophen (Ofirmev 1000mg/ 100ml Iv) 100 ml @ 400 mls/hr Q6 IVPB Last administered on 01/31/17 11:04; Admin Dose 400 MLS/HR; Start 01/10/17 at 16:30 IV Flush (NS 10 ml) 10 ml PRN PRN IV IV PROTOCOL; Start 01/10/17 at 20:30 Prednisone 10 mg 10 mg DAILY PO Last administered on 01/31/17 08:17; Admin Dose 10 MG; Start 01/15/17 at 09:00 Levofloxacin/ Dextrose 150 ml @ 100 mls/hr Q24H IVPB Last administered on 01/30 15:26; Admin Dose 100 MLS/HR; Start 01/18/17 at 16:00 Trimethoprim/ Sulfamethoxazole 25 ml/Dextrose 525 ml @ 343.333 mls/hr Q8 IVPB Last administered on 01/31/17 05:21; Admin Dose 343.333 MLS/HR; Start 01/19/17 at 13:30; Status Future Hold Hydromorphone HCl/ Dextrose (Dilaudid/D5W) 50 ml @ 2 mls/hr TITRATE IV Last administered on 01/30/17 13:39; Admin Dose 2 MLS/HR; Start 01/23/17 at 16:30 Ergocalciferol (Drisdol) 50,000 unit We@09 PO Last administered on 01/25/17 08 :39; Admin Dose 50,000 UNIT; Start 01/25/17 at 09:00 Calcium Carbonate (Oyster Shell Calcium) 1.25 gm BID PO Last administered on 08:17; Admin Dose 1.25 GM; Start 01/24/17 at 21:00 Pantoprazole (Protonix Tab) 40 mg DAILY@06 PO Last administered on 01/31/17 05 :37; Admin Dose 40 MG; Start 01/26/17 at 06:00 Hydromorphone HCl (Dilaudid) 1 mg Q2 PRN IV PAIN Last administered on 11:04; Admin Dose 1 MG; Start 01/25/17 at 21:00 Atenolol 25 mg 25 mg BID PO Last administered on 01/31/17 08:18; Admin Dose 25 MG; Start 01/30/17 at 12:00 Sodium Chloride 1,000 ml @ 70 mls/hr [id number] IV Last administered on 11:03; Admin Dose 70 MLS/HR; Start 01/31/17 at 10:00 Vancomycin HCl/ Sodium Chloride (Vancocin/NS) 500 ml @ 125 mls/hr NOW IVPB ; Start 01/31/17 at 11:30; Stop 01/31/17 at 15:29 VIOLET BLUM MD Jan 31, 2017 11:41
--- NOTE | 2017-01-31 11:52 | RADRPT ---
PROCEDURE: XR Chest AP portable CLINICAL INDICATION: Fever, rule out pneumonia TECHNIQUE: An AP portable radiograph of the chest was submitted. COMPARISON: 01/25/2017 FINDINGS: Support Hardware: The right upper extremity PICC catheter is stable in positioning. Cardiovascular: The heart size has decreased and is now upper normal with the pulmonary vasculature appearing unremarkable. Lung Morales: There is been slight improvement with regards to the alveolar infiltrate seen fairly di ffusely through the right lung. Pleural Spaces: No pneumothorax or pleural effusion is identified. Osseous Structures: The osseous structures appear intact. Soft Tissues: The soft tissues appear generous. IMPRESSION: 1. The right upper extremity PICC catheter is stable in positioning. 2. Decreased heart size which is now upper normal with the pulmonary vasculature unremarkable. 3. Slight improvement with regards to the alveolar infiltrate seen fairly diffusely through the rig ht lung. Physician Fran Date Time Electronically viewed and signed by Physician Fran on 01/31/2017 11:52 /
[2017-01-31] MEDS: HYDROmorphONE 50 MG in DEXTROSE 5% 45 ML IV SCH (15:32)
[2017-01-31] MEDS: LEVOFLOXACIN 750MG/D5W (PMX) 150 ML IVPB SCH (16:16)
--- NOTE | 2017-01-31 20:05 | PN ---
Date/Time of Note Date/Time of Note DATE: 01/31/17 TIME: 20:02 Assessment/Plan Lines/Catheters IV Catheter Type (from [facility]): PICC Line [place] in Place (from [facility]): No Assessment/Plan Assessment/Plan [facility] Progress Note Date of Service: 01/31/2017 Place of service: [facility] 5W tele Today's Assessment & Plan: Overall stable with many medical issues. Pancreatitis seems controlled and chemically normal. Awaiting a bit more time for medical stabilization prior to possible laparoscopic cholecystectomy. I discussed all of this with the patient and family and answered all of their questions to the best of my ability. I believe that they understood and agreed with the plans. I also discussed this with the team as well. 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 Very difficult situation with somewhat poor prognosis. Fortunately no indication for acute surgical intervention. No evidence of infected necrosis that would require drain placement or surgical necrosectomy of the pancreas. Would be important to try and avoid major interventions in order to not delay life-prolonging chemotherapeutic intervention. HIDA scan positive reflecting potential for chronic or acute on chronic cholecystitis. Even without the HIDA scan, the patient has enough indication for cholecystectomy at some point in the near future to hopefully try and prevent the same issue happening in the future. With a positive HIDA scan, we have more of an urgency. Patient is sufficiently far enough from his last dose of chemotherapy that the operation can be done with reasonable risk and with adequate expectation of uncomplicated healing. The only issue would be the amount of time that the patient will need to heal from surgery and whether will have any complications or not afterwards and might delay receiving further chemotherapy down the line. One advantage of doing an operation for the gallbladder is that we could potentially set this up with intraoperative ultrasound-guided biopsy of the lesion in the right lobe of liver, which would give us more tissue evaluation of the state of the disease and for any further markers that may need to be looked at for adjustment of his chemotherapy regimen. The option of percutaneous cholecystostomy tube placement is also on the table, although most oncologists would rather not give chemotherapy with a cholecystostomy drain in place. With above assessment, I've recommended the followin. Continue aggressive medical management 2. Cont full liquid diet and advance slowly 3. Follow GIs recommendations 4. If it would make a difference in management, may consider percutaneous biopsy of segment 6 area of abnormality in the liver 5. Multidisciplinary tumor board presentation and discussions 6. Consideration for clinical trials once improved medically 7. LFT's, amylase and lipase checks tomorrow with labs 8. Will likely benefit from aggressive bowel regimen (some of the pain likely from constipation) 9. Will try to set up for laparoscopic cholecystectomy, likely with intraoperative ultrasound biopsy of the liver lesion in segment 6 in the next few days Thank you very much for having me involved in the care of this very pleasant patient and wonderful family. If you have any questions, please feel free to contact me at [phone]. Nature of presenting problem: High severity Please note that, given the extensive number of diagnoses or management options , the extensive amount and/or complexity of data needed to be reviewed, and high risk of complications and/or morbidity or mortality, this qualifies as high complexity type of decision-making. Disclaimer: Inadvertent spelling and grammatical errors are likely due to EHR/ dictation software use and do not reflect on the quality of delivered patient care. Also, please note that the electronic time recorded on this node does not necessarily reflect the actual time of the visit. 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 HIDA scan positive 01/28/2017. Status post CT-guided left flank subcutaneous nodule biopsy [facility] 01/12/2017. Comorbidities: 1. BMI 40.7 2. Small right pleural effusion with atelectasis and right lung base pneumonia. 3. Large B cell anaplastic lymphoma; status post chemo 1 month prior to presentation 4. Sepsis 5. Hyponatremia 6. Hypokalemia 7. Acute renal injury Subjective: No major events or complaints; reported no major new abd pain and under control with medications; no significant reported nausea or vomiting and no major diarrhea; no sob or cp; + flatus; + BM; minimal to no activity. Objective: Vitals: See below I's & O's: See below Exam: GENERAL: On exam, the patient was lying in bed and appeared to be comfortable and in no acute distress. Diaphoretic. ABDOMEN: Soft, minimal to no tenderness and nondistended. There are no peritoneal signs or guarding. SKIN: Skin appears to be pink and feels warm to touch. NEUROLOGIC: Patient is awake, alert, and follows commands appropriately. Labs: See below Exam/Review of Systems Vital Signs Vitals Vital Signs Date Time Temp Pulse Resp B/P Pulse Ox O2 Delivery O2 Flow Rate FiO2 01/31/17 16:25 92 01/31/17 15:27 97.2 19 99/55 96 01/31/17 08:25 Nasal Cannula 2.0 Intake and Output 01/30/17 01/30/17 01/31/17 15:00 23:00 07:00 Intake Total 200 ml 1550 ml 925 ml Output Total 725 ml 1900 ml 1600 ml Balance -525 ml -350 ml -675 ml Results Result Diagram: 01/31/17 1005 01/31/17 0923 LENKA HERNANDEZ M.D. Jan 31, 2017 20:05
[2017-01-31] MEDS: VANCOMYCIN 1.5 GM in SOD CHLORIDE 0.9% 250 ML IVPB SCH (21:10)
--- NOTE | 2017-01-31 21:34 | CONS ---
Date/Time of Note Date/Time of Note DATE: 01/31/17 TIME: 21:28 Assessment/Plan Assessment/Plan Chief Complaint/Hosp Course Anaplastic B-cell Lymphoma pt was dx'd with lymphoma a year and half ago , it turned into an aggressive type. His last chemo was a month ago and hadn't had since due to experiencing similar presenting symptoms. record from pt's oncologist Kain Wisdom - Kenji Left flank mass, CT-guided core needle biopsies with touch imprints: Completely necrotic tissue, insufficient for pathologic evaluation. PER PT REPORT- reportedly scheduled for change in therapy due to what appears to be lack of adequate response LEUKOPENIA IN PT WITH HNL ON CHEMO AND WITH SEPTIC PICTURE MONITOR BLOOD COUNT CLOSELY POST NEUPOGEN WBC- FLUCTUATING , NOT IN NEUTROPENIA LEVEL AT PRESENT PANCYTOPENIA POST CHEMO CONT TO MONITOR PRBC NEEDED Sepsis 2/2 PNA - abx, IVF - f/u culture results - ID pancreatitis. Abd Pain with N/V: 2/2 known lymphoma - pain mgmt - Anti-emetics Hyponatremia and Hypokalemia: 2/2 vomiting - NS IVF - replete K+ as needed Presumed RAMU: likely pre-renal 2/2 vomiting - cont IVF for now Problems: Consultation Date/Type/Reason Admit Date/Time Jan 09, 2017 at 19:08 Initial Consult Date 01/10/17 Type of Consultation: [facility] Referring Provider: YAO RAHMAN 24 HR Interval Summary Free Text/Dictation ALL NOTED D/W FAMILY Exam/Review of Systems Vital Signs Vitals Vital Signs Date Time Temp Pulse Resp B/P Pulse Ox O2 Delivery O2 Flow Rate FiO2 01/31/17 21:22 2.0 01/31/17 21:22 95 20 99 Nasal Cannula 01/31/17 20:12 97.5 103/57 Intake and Output 01/30/17 01/30/17 01/31/17 15:00 23:00 07:00 Intake Total 200 ml 1550 ml 925 ml Output Total 725 ml 1900 ml 1600 ml Balance -525 ml -350 ml -675 ml Exam PHYSICAL EXAMINATION: This is an obese, chronically ill- appearing, middle aged man who is awake, in no distress. HEENT: Head atraumatic, normocephalic. Sclerae anicteric. Buccal mucosa dry. NECK: Obese. CHEST: Rise symmetrical. Breath sounds diminished at the bases. HEART: S1, S2. Tachycardic, regular. ABDOMEN: Obese, soft, bowel sounds present. EXTREMITIES: Without cyanosis, bilateral edema with multiple unstageable wounds. SKIN: Generalized edema with multiple necrotic wounds. Results Result Diagram: 01/31/17 1005 01/31/17 0923 Results 24 hrs Laboratory Tests Test 01/31/17 09:23 01/31/17 10:05 01/31/17 11:00 01/31/17 11:20 Sodium Level 128 L Potassium Level 4.0 Chloride Level 86 L Carbon Dioxide Level 28 Anion Gap 18 H Blood Urea Nitrogen 6 L Creatinine 0.65 Glucose Level 91 # Calcium Level 9.0 White Blood Count 3.8 #L Red Blood Count 3.58 L Hemoglobin 10.0 L Hematocrit 30.7 L Mean Corpuscular Volume 85.8 Mean Corpuscular Hemoglobin 27.9 L Mean Corpuscular Hemoglobin Concent 32.6 Red Cell Distribution Width 17.3 H Platelet Count 202 # Mean Platelet Volume 10.6 H Neutrophils % 87.2 H Lymphocytes % 2.9 L Monocytes % 6.4 Eosinophils % 0.5 Basophils % 0.3 Nucleated Red Blood Cells % 0.0 Neutrophils # (Manual) 3 Lymphocytes # 0.1 L Monocytes # 0.2 L Eosinophils # 0.0 Basophils # 0.0 Nucleated Red Blood Cells # 0.0 Lab Scanned Report REFERENCE LAB Urine Color OMAR Urine Clarity CLEAR Urine pH 5.0 Urine Specific [place] 1.035 H Urine Ketones NEGATIVE Urine Nitrite NEGATIVE Urine Bilirubin NEGATIVE Urine Urobilinogen 1+ H Urine Leukocyte Esterase NEGATIVE Urine Microscopic RBC 3 Urine Microscopic WBC 4 Urine Hemoglobin NEGATIVE Urine Glucose NEGATIVE Urine Total Protein 1+ H Medications Medications Current Medications Docusate Sodium (Colace) 100 mg Q12H PRN PO CONSTIPATION Last administered on 10:46; Admin Dose 100 MG; Start 01/09/17 at 19:30 Magnesium Hydroxide (Milk Of Mag) 30 ml DAILY PRN PO CONSTIPATION Last administered on 01/29/17 09:33; Admin Dose 30 ML; Start 01/09/17 at 19:30 Sodium Biphosphate/ Sodium Phosphate (Fleet Enema) 133 ml DAILY PRN [place] CONSTIPATION; Start 01/09/17 at 19:30 Heparin Sodium (Porcine) 5000 unit 5,000 unit Q12 SC Last administered on 8/7/ 17at 09:43; Admin Dose 5,000 UNIT; Start 01/09/17 at 21:00; Status Future Hold Piperacillin Sod/ Tazobactam Sod (Zosyn 3.375gm/ 100 ml (Pmx)) 100 ml @ 200 mls /hr Q6 IVPB Last administered on 01/31/17 17:28; Admin Dose 200 MLS/HR; Start 01/10/17 at 00:00 Nitroglycerin (Nitroglycerin (Sl Tab) 0.4 Mg) 1 tab Q5M PRN SL ANGINA; Start at 19:30 Miscellaneous Information (Pending Santyl Order For Wound Care) This patient aranda... PRN PRN XX WOUND CARE; Start 01/10/17 at 03:30 Ondansetron HCl 4 mg 4 mg Q6 IV Last administered on 01/31/17 17:28; Admin Dose 4 MG; Start 01/10/17 at 15:30 Acetaminophen (Ofirmev 1000mg/ 100ml Iv) 100 ml @ 400 mls/hr Q6 IVPB Last administered on 01/31/17 17:28; Admin Dose 400 MLS/HR; Start 01/10/17 at 16:30 IV Flush (NS 10 ml) 10 ml PRN PRN IV IV PROTOCOL; Start 01/10/17 at 20:30 Prednisone 10 mg 10 mg DAILY PO Last administered on 01/31/17 08:17; Admin Dose 10 MG; Start 01/15/17 at 09:00 Levofloxacin/ Dextrose 150 ml @ 100 mls/hr Q24H IVPB Last administered on 01/31 16:16; Admin Dose 100 MLS/HR; Start 01/18/17 at 16:00 Trimethoprim/ Sulfamethoxazole 25 ml/Dextrose 525 ml @ 343.333 mls/hr Q8 IVPB Last administered on 01/31/17 05:21; Admin Dose 343.333 MLS/HR; Start 01/19/17 at 13:30; Status Future Hold Hydromorphone HCl/ Dextrose (Dilaudid/D5W) 50 ml @ 2 mls/hr TITRATE IV Last administered on 01/31/17 15:32; Admin Dose 2 MLS/HR; Start 01/23/17 at 16:30 Ergocalciferol (Drisdol) 50,000 unit We@09 PO Last administered on 01/25/17 08 :39; Admin Dose 50,000 UNIT; Start 01/25/17 at 09:00 Calcium Carbonate (Oyster Shell Calcium) 1.25 gm BID PO Last administered on 21:10; Admin Dose 1.25 GM; Start 01/24/17 at 21:00 Pantoprazole (Protonix Tab) 40 mg DAILY@06 PO Last administered on 01/31/17 05 :37; Admin Dose 40 MG; Start 01/26/17 at 06:00 Hydromorphone HCl (Dilaudid) 1 mg Q2 PRN IV PAIN Last administered on 21:11; Admin Dose 1 MG; Start 01/25/17 at 21:00 Atenolol 25 mg 25 mg BID PO Last administered on 01/31/17 08:18; Admin Dose 25 MG; Start 01/30/17 at 12:00 Sodium Chloride 1,000 ml @ 70 mls/hr [id number] IV Last administered on 11:03; Admin Dose 70 MLS/HR; Start 01/31/17 at 10:00 Vancomycin HCl/ Sodium Chloride (Vancocin/NS) 250 ml @ 83.333 mls/ hr Q8H IVPB Last administered on 01/31/17 21:10; Admin Dose 83.333 MLS/HR; Start at 20:00 Miscellaneous Information (*Rx Drug Level Order Reminder*) 1 ONCE ONCE XX ; Start 02/01/17 at 11:00; Stop 02/01/17 at 11:01 MOIRA BIRMINGHAM MD Jan 31, 2017 21:33
[2017-02-01] VITALS (12 sets, daily range): BP systolic 92–124; BP diastolic 50–63; PULSE 102–142; RESP 16–20
[2017-02-01] MEDS: HYDROmorphONE 1 MG/ML SYG IV PRN ×7 (00:08→20:50)
[2017-02-01] MEDS: ACETAMINOPHEN 1000MG/100ML IV 100 ML IVPB SCH ×4 (00:08→18:09)
[2017-02-01] MEDS: SOD CHLORIDE 0.9% 1,000 ML IV SCH ×3 (00:18→18:00)
[2017-02-01] MEDS: ONDANSETRON 4 MG INJ IV SCH ×4 (00:44→18:10)
[2017-02-01] MEDS: PIPER-TAZO 3.375 GM IV (PMX) 100 ML IVPB SCH ×4 (00:45→18:10)
--- NOTE | 2017-02-01 02:56 | PN ---
DATE: 01/31/2017 INFECTIOUS DISEASE PROGRESS NOTE SUBJECTIVE: The patient spiked fever of 102.9 this morning. Blood cultures were sent and urine cultures were sent. A chest x- ray this morning revealed slight improvement with regards to the alveolar infiltrates seen fairly diffusely through the right lung. Indwelling PICC line. ANTIMICROBIALS: The patient is on IV vancomycin, started this morning by Nephrology, Levaquin, and Zosyn. Status post Bactrim, discontinued. Colistin inhalation. OBJECTIVE DATA: GENERAL: This is an obese well-developed, chronically ill- appearing middle-aged man who is awake in no distress. HEENT: Head atraumatic, normocephalic. Sclerae are anicteric. Buccal mucosa dry. NECK: Supple. RESPIRATORY: Chest rise symmetrical. Breath sounds diminished at the bases. HEART: S1, S2. ABDOMEN: Soft. Bowel sounds present. EXTREMITIES: Without cyanosis. Bilateral edema with multiple necrotic wounds. SKIN: With multiple wounds over the body. ASSESSMENT: 1. Ongoing fevers. Rule out sepsis. Possibly line related, so far no evidence of pneumonia per chest x-ray. 2. Multiple chronic necrotic wounds with wound cultures on admission having grown multidrug-resistant multiple organisms. 3. Status post urinary tract infection on admission. 4. Status post acute pancreatitis. 5. B-cell lymphoma. 6. Pancytopenia. 7. Morbid obesity. The patient is clinically stable, currently afebrile, and feels good. Denies nausea, vomiting, diarrhea. He is on broad- spectrum antibiotics. PLAN: We are going to repeat wound cultures, await for final cultures; follow recommendations of consultants; and encourage ambulation and incentive spirometry use. Dictated By: Felicia Hdz NP /paulette/ivory /Document#: [id number]
[2017-02-01] MEDS: VANCOMYCIN 1.5 GM in SOD CHLORIDE 0.9% 250 ML IVPB SCH ×3 (03:31→20:51)
[2017-02-01] MEDS: PANTOPRAZOLE (EC) 40 MG TAB PO SCH (05:25)
[2017-02-01] MEDS: LEVALBUTEROL (NEB) 0.63 MG/3 ML AMP HHN PRN (05:34)
[2017-02-01] MEDS: IPRATROPIUM (NEB) 0.5 MG/2.5 ML AMP HHN PRN (05:34)
[2017-02-01] MEDS: HYDROmorphONE 50 MG in DEXTROSE 5% 45 ML IV SCH (06:38)
[2017-02-01 07:03] LABS: ABNORMAL IP MESSAGE 1; HEMOGLOBIN 8.7 g/dl (14.0-18.0); MEAN CORPUSCULAR HGB CONC 33.5 g/dl (32.0-37.0); MEAN CORPUSCULAR VOLUME 86.7 fl (82.0-101.0); MEAN PLATELET VOLUME 10.7 fl (7.4-10.4); POSITIVE DIFF @See below; RED CELL DISTRIBUTION WIDTH 17.2 % (11.5-14.5); WHITE BLOOD COUNT 1.5 10^3/ul (4.8-10.8)
[2017-02-01 07:17] LABS: BILIRUBIN,INDIRECT 0.7 mg/dl (0-1.1); BILIRUBIN,TOTAL 0.7 mg/dl (0.2-1.3); CALCIUM 8.7 mg/dl (8.4-10.2); CREATININE 0.59 mg/dl (0.61-1.24)
[2017-02-01 07:18] LABS: ALBUMIN 2.9 g/dl (3.3-4.9); ALBUMIN/GLOBULIN RATIO 0.96; TOTAL PROTEIN 5.9 g/dl (6.1-8.1)
[2017-02-01 07:26] LABS: PLATELET COUNT 133 10^3/UL (140-415)
[2017-02-01] MEDS: CALCIUM CARBONATE 1.25 GM TAB PO SCH ×2 (09:44→21:03)
[2017-02-01] MEDS: ERGOCALCIFEROL 50,000 UNIT CAP PO SCH (09:44)
[2017-02-01] MEDS: ATENOLOL 25 MG TAB PO SCH ×2 (09:45→21:00)
[2017-02-01] MEDS: predniSONE 20 MG TAB PO SCH (09:45)
[2017-02-01] MEDS: COLISTIMETHATE (25 MG/ML INHAL SYG) NEB SCH ×2 (10:23→21:23)
[2017-02-01 11:01] LABS: ANISOCYTOSIS 1+ (0-0); BASOPHILS % (M) 4 % (0-2); EOSINOPHILS % (M) 1 % (0-7); GIANT THROMBO% (M) 9 % (0-0); HYPOCHROMASIA 1+ (0-0); MONOCYTES % (M) 2 % (0-11); MYELOCYTES % (M) 3 % (0.0-0.0); PLATELET ESTIMATE NORMAL; POLYCHROMASIA 1+ (0-0); PROMYELOCYTES #M 0 # (0-0); PROMYELOCYTES % (M) 1 % (0-0); TOXIC GRANULATION 1+ (0-0)
[2017-02-01] MEDS ORDERED: CASPOFUNGIN 70 MG in NS 250 ML IVPB ONE (13:00)
--- NOTE | 2017-02-01 13:15 | CONS ---
Date/Time of Note Date/Time of Note DATE: 02/01/17 TIME: 13:15 Assessment/Plan Assessment/Plan Chief Complaint/Hosp Course Anaplastic B-cell Lymphoma pt was dx'd with lymphoma a year and half ago , it turned into an aggressive type. His last chemo was a month ago and hadn't had since due to experiencing similar presenting symptoms. record from pt's oncologist Kain Wisdom - P Left flank mass, CT-guided core needle biopsies with touch imprints: Completely necrotic tissue, insufficient for pathologic evaluation. PER PT REPORT- reportedly scheduled for change in therapy due to what appears to be lack of adequate response LEUKOPENIA IN PT WITH HNL POST CHEMO AND WITH SEPTIC PICTURE MONITOR BLOOD COUNT CLOSELY POST NEUPOGEN WBC- FLUCTUATING , WORSENED X 24 H WILL RESTART NEUPOGEN PANCYTOPENIA POST CHEMO CONT TO MONITOR PRBC NEEDED FEVER ID W-UP Sepsis 2/2 PNA - abx, IVF - f/u culture results - ID pancreatitis. Abd Pain with N/V: 2/2 known lymphoma - pain mgmt - Anti-emetics Hyponatremia and Hypokalemia: 2/2 vomiting - NS IVF - replete K+ as needed Presumed RAMU: likely pre-renal 2/2 vomiting - cont IVF for now Problems: Consultation Date/Type/Reason Admit Date/Time Jan 09, 2017 at 19:08 Initial Consult Date 01/10/17 Type of Consultation: [facility] Referring Provider: YAO RAHMAN 24 HR Interval Summary Free Text/Dictation d/w ID FEVER- UP Exam/Review of Systems Vital Signs Vitals Vital Signs Date Time Temp Pulse Resp B/P Pulse Ox O2 Delivery O2 Flow Rate FiO2 02/01/17 12:48 101.8 132 20 105/50 100 02/01/17 12:09 2.0 02/01/17 11:07 Nasal Cannula Intake and Output 01/31/17 01/31/17 02/01/17 15:00 23:00 07:00 Intake Total 700 ml 2781 ml 1663 ml Output Total 950 ml 840 ml Balance 700 ml 1831 ml 823 ml Exam GENERAL: This is an obese well-developed, chronically ill- appearing middle-aged man who is awake in no distress. HEENT: Head atraumatic, normocephalic. Sclerae are anicteric. Buccal mucosa dry. NECK: Supple. RESPIRATORY: Chest rise symmetrical. Breath sounds diminished at the bases. HEART: S1, S2. ABDOMEN: Soft. Bowel sounds present. EXTREMITIES: Without cyanosis. Bilateral edema with multiple necrotic wounds. SKIN: With multiple wounds over the body. Results Result Diagram: 02/01/17 0558 02/01/17 0558 Results 24 hrs Laboratory Tests Test 02/01/17 05:58 02/01/17 11:17 White Blood Count 1.5 #L Red Blood Count 3.00 L Hemoglobin 8.7 L Hematocrit 26.0 L Mean Corpuscular Volume 86.7 Mean Corpuscular Hemoglobin 29.0 Mean Corpuscular Hemoglobin Concent 33.5 Red Cell Distribution Width 17.2 H Platelet Count 133 #L Mean Platelet Volume 10.7 H Neutrophils % Segmented Neutrophils % (Manual) 72 Band Neutrophils % (Manual) 10 H Lymphocytes % Lymphocytes % (Manual) 6 L Monocytes % Monocytes % (Manual) 2 Eosinophils % Eosinophils % (Manual) 1 Basophils % Basophils % (Manual) 4 H Myelocytes % (Manual) 3 H Promyelocytes % (Manual) 1 H Nucleated Red Blood Cells % 0.0 Neutrophils # (Manual) 1 L Band Neutrophils # 0.1 Absolute Lymphocytes (Manual) 0.0 L Lymphocytes # Monocytes # Absolute Monocytes (Manual) 0.0 L Eosinophils # Basophils # Basophils # (Manual) 0.0 Myelocytes # 0.0 Promyelocytes # 0 Nucleated Red Blood Cells # Thrombocytosis 9 H Toxic Granulation 1+ Platelet Estimate NORMAL Polychromasia 1+ Hypochromasia 1+ Anisocytosis 1+ Macrocytosis 1+ Sodium Level 130 L Potassium Level 4.0 Chloride Level 90 L Carbon Dioxide Level 27 Anion Gap 17 H Blood Urea Nitrogen 8 Creatinine 0.59 L Glucose Level 93 Calcium Level 8.7 Total Bilirubin 0.7 Direct Bilirubin 0.00 Indirect Bilirubin 0.7 Aspartate Amino Transf (AST/SGOT) 77 H Alanine Aminotransferase (ALT/SGPT) 65 Alkaline Phosphatase 268 H Total Protein 5.9 L Albumin 2.9 L Globulin 3.00 Albumin/Globulin Ratio 0.96 Vancomycin Level Trough 14.6 Medications Medications Current Medications Docusate Sodium (Colace) 100 mg Q12H PRN PO CONSTIPATION Last administered on 10:46; Admin Dose 100 MG; Start 01/09/17 at 19:30 Magnesium Hydroxide (Milk Of Mag) 30 ml DAILY PRN PO CONSTIPATION Last administered on 01/29/17 09:33; Admin Dose 30 ML; Start 01/09/17 at 19:30 Sodium Biphosphate/ Sodium Phosphate 133 ml 133 ml DAILY PRN [place] CONSTIPATION; Start 01/09/17 at 19:30 Piperacillin Sod/ Tazobactam Sod (Zosyn 3.375gm/ 100 ml (Pmx)) 100 ml @ 200 mls /hr Q6 IVPB Last administered on 02/01/17 12:39; Admin Dose 200 MLS/HR; Start 01/10/17 at 00:00 Nitroglycerin (Nitroglycerin (Sl Tab) 0.4 Mg) 1 tab Q5M PRN SL ANGINA; Start at 19:30 [facility] This patient aranda... PRN PRN XX WOUND CARE; Start 01/10/17 at 03:30 Ondansetron HCl 4 mg 4 mg Q6 IV Last administered on 02/01/17 12:39; Admin Dose 4 MG; Start 01/10/17 at 15:30 Acetaminophen (Ofirmev 1000mg/ 100ml Iv) 100 ml @ 400 mls/hr Q6 IVPB Last administered on 02/01/17 12:39; Admin Dose 400 MLS/HR; Start 01/10/17 at 16:30 IV Flush (NS 10 ml) 10 ml PRN PRN IV IV PROTOCOL; Start 01/10/17 at 20:30 Prednisone 10 mg 10 mg DAILY PO Last administered on 02/01/17 09:45; Admin Dose 10 MG; Start 01/15/17 at 09:00 Levofloxacin/ Dextrose 150 ml @ 100 mls/hr Q24H IVPB Last administered on 01/31 16:16; Admin Dose 100 MLS/HR; Start 01/18/17 at 16:00 Trimethoprim/ Sulfamethoxazole 25 ml/Dextrose 525 ml @ 343.333 mls/hr Q8 IVPB Last administered on 01/31/17 05:21; Admin Dose 343.333 MLS/HR; Start 01/19/17 at 13:30; Status Future Hold Hydromorphone HCl/ Dextrose (Dilaudid/D5W) 50 ml @ 2 mls/hr TITRATE IV Last administered on 02/01/17 06:38; Admin Dose 2 MLS/HR; Start 01/23/17 at 16:30 Ergocalciferol (Drisdol) 50,000 unit We@09 PO Last administered on 02/01/17 09 :44; Admin Dose 50,000 UNIT; Start 01/25/17 at 09:00 Calcium Carbonate (Oyster Shell Calcium) 1.25 gm BID PO Last administered on 09:44; Admin Dose 1.25 GM; Start 01/24/17 at 21:00 Pantoprazole (Protonix Tab) 40 mg DAILY@06 PO Last administered on 02/01/17 05 :25; Admin Dose 40 MG; Start 01/26/17 at 06:00 Hydromorphone HCl (Dilaudid) 1 mg Q2 PRN IV PAIN Last administered on 12:38; Admin Dose 1 MG; Start 01/25/17 at 21:00 Atenolol 25 mg 25 mg BID PO Last administered on 02/01/17 09:45; Admin Dose 25 MG; Start 01/30/17 at 12:00 Sodium Chloride 1,000 ml @ 70 mls/hr [id number] IV Last administered on 11:03; Admin Dose 70 MLS/HR; Start 01/31/17 at 10:00 Vancomycin HCl 1.5 gm/Sodium Chloride 250 ml @ 83.333 mls/ hr Q8H IVPB Last administered on 02/01/17 03:31; Admin Dose 83.333 MLS/HR; Start 01/31/17 at 20: 00 Sodium Chloride 1,000 ml @ 100 mls/hr Q10H IV Last administered on 02/01/17 08:00; Admin Dose 100 MLS/HR; Start 02/01/17 at 08:00 Caspofungin 70 mg/ Sodium Chloride 250 ml @ 250 mls/hr ONCE ONCE IVPB Last administered on 02/01/17 13:12; Admin Dose 250 MLS/HR; Start 02/01/17 at 13:00 ; Stop 02/01/17 at 13:59 Caspofungin/ Sodium Chloride (Cancidas/NS) 250 ml @ 250 mls/hr Q24H IVPB ; Start 02/02/17 at 13:00 Enoxaparin Sodium (Lovenox) 30 mg DAILY SC ; Start 02/01/17 at 16:00 MOIRA BIRMINGHAM MD Feb 01, 2017 13:15
[2017-02-01] MEDS: LEVOFLOXACIN 750MG/D5W (PMX) 150 ML IVPB SCH (16:11)
[2017-02-01] MEDS: FILGRASTIM 480 MCG INJ SC SCH (16:12)
--- NOTE | 2017-02-01 16:14 | PN ---
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 pancreatitis on pain control with DIilaudid 2 Fevers 102>104 this am? source Wounds vs PIC Line vs Abdominal source 3 Hyponatremia on bactrim with d5 w> stopped 4 Acute renal injury resolved 5 Right pleural effusion with atelectasis and right lung base pneumonia, resolved. 6. Large B cell anaplastic lymphoma; status post chemo 1 month, leukopenia now neutropenic 7. 2 Hypoparathyroidism On Calcitrol and Caco3 8 Severe anemia 9 Morbid obesity 10 Skin wounds Assessment/Plan 1. c/w Vancomycin/ Cefepime/Levaquin.Add caspofungin 2 c/w Colistin 3 CT CAP today 4 c/w NS at 100 cc/hr 5 Neupogen per Onc 6 Dilaudid for pain 7 GI/DVT prophylaxsis 8 Apppreciate all consults Problems: Subjective 24 Hr Interval Summary Free Text/Dictation Fevers 104 this am +abdominal pain in LLQ, +Nausea Exam/Review of Systems Vital Signs Vitals Vital Signs Date Time Temp Pulse Resp B/P Pulse Ox O2 Delivery O2 Flow Rate FiO2 02/01/17 16:08 98.7 101 19 106/57 98 02/01/17 12:09 2.0 02/01/17 11:07 Nasal Cannula Intake and Output 01/31/17 01/31/17 02/01/17 15:00 23:00 07:00 Intake Total 700 ml 2781 ml 1663 ml Output Total 950 ml 840 ml Balance 700 ml 1831 ml 823 ml Results Result Diagram: 02/01/17 0558 02/01/17 0558 Results 24 hrs Laboratory Tests Test 02/01/17 05:58 02/01/17 11:17 White Blood Count 1.5 #L Red Blood Count 3.00 L Hemoglobin 8.7 L Hematocrit 26.0 L Mean Corpuscular Volume 86.7 Mean Corpuscular Hemoglobin 29.0 Mean Corpuscular Hemoglobin Concent 33.5 Red Cell Distribution Width 17.2 H Platelet Count 133 #L Mean Platelet Volume 10.7 H Neutrophils % Segmented Neutrophils % (Manual) 72 Band Neutrophils % (Manual) 10 H Lymphocytes % Lymphocytes % (Manual) 6 L Monocytes % Monocytes % (Manual) 2 Eosinophils % Eosinophils % (Manual) 1 Basophils % Basophils % (Manual) 4 H Myelocytes % (Manual) 3 H Promyelocytes % (Manual) 1 H Nucleated Red Blood Cells % 0.0 Neutrophils # (Manual) 1 L Band Neutrophils # 0.1 Absolute Lymphocytes (Manual) 0.0 L Lymphocytes # Monocytes # Absolute Monocytes (Manual) 0.0 L Eosinophils # Basophils # Basophils # (Manual) 0.0 Myelocytes # 0.0 Promyelocytes # 0 Nucleated Red Blood Cells # Thrombocytosis 9 H Toxic Granulation 1+ Platelet Estimate NORMAL Polychromasia 1+ Hypochromasia 1+ Anisocytosis 1+ Macrocytosis 1+ Sodium Level 130 L Potassium Level 4.0 Chloride Level 90 L Carbon Dioxide Level 27 Anion Gap 17 H Blood Urea Nitrogen 8 Creatinine 0.59 L Glucose Level 93 Calcium Level 8.7 Total Bilirubin 0.7 Direct Bilirubin 0.00 Indirect Bilirubin 0.7 Aspartate Amino Transf (AST/SGOT) 77 H Alanine Aminotransferase (ALT/SGPT) 65 Alkaline Phosphatase 268 H Total Protein 5.9 L Albumin 2.9 L Globulin 3.00 Albumin/Globulin Ratio 0.96 Vancomycin Level Trough 14.6 Medications Medications Current Medications Docusate Sodium (Colace) 100 mg Q12H PRN PO CONSTIPATION Last administered on 10:46; Admin Dose 100 MG; Start 01/09/17 at 19:30 Magnesium Hydroxide (Milk Of Mag) 30 ml DAILY PRN PO CONSTIPATION Last administered on 01/29/17 09:33; Admin Dose 30 ML; Start 01/09/17 at 19:30 Sodium Biphosphate/ Sodium Phosphate 133 ml 133 ml DAILY PRN [place] CONSTIPATION; Start 01/09/17 at 19:30 Piperacillin Sod/ Tazobactam Sod (Zosyn 3.375gm/ 100 ml (Pmx)) 100 ml @ 200 mls /hr Q6 IVPB Last administered on 02/01/17 12:39; Admin Dose 200 MLS/HR; Start 01/10/17 at 00:00 Nitroglycerin (Nitroglycerin (Sl Tab) 0.4 Mg) 1 tab Q5M PRN SL ANGINA; Start at 19:30 Misc[facility] This patient aranda... PRN PRN XX WOUND CARE; Start 01/10/17 at 03:30 Ondansetron HCl 4 mg 4 mg Q6 IV Last administered on 02/01/17 12:39; Admin Dose 4 MG; Start 01/10/17 at 15:30 Acetaminophen (Ofirmev 1000mg/ 100ml Iv) 100 ml @ 400 mls/hr Q6 IVPB Last administered on 02/01/17 12:39; Admin Dose 400 MLS/HR; Start 01/10/17 at 16:30 IV Flush (NS 10 ml) 10 ml PRN PRN IV IV PROTOCOL; Start 01/10/17 at 20:30 Prednisone 10 mg 10 mg DAILY PO Last administered on 02/01/17 09:45; Admin Dose 10 MG; Start 01/15/17 at 09:00 Levofloxacin/ Dextrose 150 ml @ 100 mls/hr Q24H IVPB Last administered on 01/31 16:16; Admin Dose 100 MLS/HR; Start 01/18/17 at 16:00 Trimethoprim/ Sulfamethoxazole 25 ml/Dextrose 525 ml @ 343.333 mls/hr Q8 IVPB Last administered on 01/31/17 05:21; Admin Dose 343.333 MLS/HR; Start 01/19/17 at 13:30; Status Future Hold Hydromorphone HCl/ Dextrose (Dilaudid/D5W) 50 ml @ 2 mls/hr TITRATE IV Last administered on 02/01/17 06:38; Admin Dose 2 MLS/HR; Start 01/23/17 at 16:30 Ergocalciferol (Drisdol) 50,000 unit We@09 PO Last administered on 02/01/17 09 :44; Admin Dose 50,000 UNIT; Start 01/25/17 at 09:00 Calcium Carbonate (Oyster Shell Calcium) 1.25 gm BID PO Last administered on 09:44; Admin Dose 1.25 GM; Start 01/24/17 at 21:00 Pantoprazole (Protonix Tab) 40 mg DAILY@06 PO Last administered on 02/01/17 05 :25; Admin Dose 40 MG; Start 01/26/17 at 06:00 Hydromorphone HCl (Dilaudid) 1 mg Q2 PRN IV PAIN Last administered on 12:38; Admin Dose 1 MG; Start 01/25/17 at 21:00 Atenolol 25 mg 25 mg BID PO Last administered on 02/01/17 09:45; Admin Dose 25 MG; Start 01/30/17 at 12:00 Vancomycin HCl 1.5 gm/Sodium Chloride 250 ml @ 83.333 mls/ hr Q8H IVPB Last administered on 02/01/17 14:30; Admin Dose 83.333 MLS/HR; Start 01/31/17 at 20: 00 Sodium Chloride 1,000 ml @ 100 mls/hr Q10H IV Last administered on 02/01/17 08:00; Admin Dose 100 MLS/HR; Start 02/01/17 at 08:00 Caspofungin/ Sodium Chloride (Cancidas/NS) 250 ml @ 250 mls/hr Q24H IVPB ; Start 02/02/17 at 13:00 Enoxaparin Sodium (Lovenox) 30 mg DAILY SC ; Start 02/01/17 at 16:00 Filgrastim (Neupogen) 480 mcg DAILY@17 SC ; Start 02/01/17 at 17:00 TAMARA HARTMANN MD Feb 01, 2017 16:14
[2017-02-01] MEDS ORDERED: BARIUM SULF 2% 450 ML BTL (BERRY SMOOTHIE) PO ONE (16:30)
[2017-02-01] MEDS: ENOXAPARIN 30 MG/0.3 ML SYG SC SCH (16:47)
--- NOTE | 2017-02-01 19:00 | PN ---
Date/Time of Note Date/Time of Note DATE: 02/01/17 TIME: 18:58 Assessment/Plan VTE Prophylaxis VTE Prophylaxis Intervention: SCD's Lines/Catheters IV Catheter Type (from Nrs): PICC Line Central line still needed: Yes Urinary Cath still in place: No Assessment/Plan Assessment/Plan Assessment: * Anemia * Acute pancreatitis, etiology unclear * Cholelithiasis * Mild abnormality liver function tests with no evidence of biliary pathology * Anaplastic B-cell lymphoma/aggressive behavior * Sepsis/pneumonia/improved Plan: * continue present management * pain control * Monitor hemoglobin and hematocrit daily * Continue monitor lipase and abdominal pain Free Text/Dictation * Course reviewed with RN * patient seen and examined * tolerating diet, vomited today * Still some epigastric abdominal pain * Going for CT abdomen Exam Constitutional: alert, frail Neck: non-tender, supple Respiratory: diminished breath sounds, normal air movement Cardiovascular: nl pulses, regular rate and rhythm Gastrointestinal: distended, soft, mild epigastric tenderness No rebound or guarding Musculoskeletal: muscle weakness Extremities: edema, pitting pedal edema Neurological: nl mental status, nl speech Skin: nl turgor, No rash or lesions Lymph: nl lymph nodes Exam/Review of Systems Vital Signs Vitals Vital Signs Date Time Temp Pulse Resp B/P Pulse Ox O2 Delivery O2 Flow Rate FiO2 02/01/17 16:27 105 02/01/17 16:08 98.7 19 106/57 98 02/01/17 12:09 2.0 02/01/17 11:07 Nasal Cannula Intake and Output 01/31/17 01/31/17 02/01/17 15:00 23:00 07:00 Intake Total 700 ml 2781 ml 1663 ml Output Total 950 ml 840 ml Balance 700 ml 1831 ml 823 ml Results Result Diagram: 02/01/17 0558 02/01/17 0558 Results 24 hrs Laboratory Tests Test 02/01/17 05:58 02/01/17 11:17 White Blood Count 1.5 #L Red Blood Count 3.00 L Hemoglobin 8.7 L Hematocrit 26.0 L Mean Corpuscular Volume 86.7 Mean Corpuscular Hemoglobin 29.0 Mean Corpuscular Hemoglobin Concent 33.5 Red Cell Distribution Width 17.2 H Platelet Count 133 #L Mean Platelet Volume 10.7 H Neutrophils % Segmented Neutrophils % (Manual) 72 Band Neutrophils % (Manual) 10 H Lymphocytes % Lymphocytes % (Manual) 6 L Monocytes % Monocytes % (Manual) 2 Eosinophils % Eosinophils % (Manual) 1 Basophils % Basophils % (Manual) 4 H Myelocytes % (Manual) 3 H Promyelocytes % (Manual) 1 H Nucleated Red Blood Cells % 0.0 Neutrophils # (Manual) 1 L Band Neutrophils # 0.1 Absolute Lymphocytes (Manual) 0.0 L Lymphocytes # Monocytes # Absolute Monocytes (Manual) 0.0 L Eosinophils # Basophils # Basophils # (Manual) 0.0 Myelocytes # 0.0 Promyelocytes # 0 Nucleated Red Blood Cells # Thrombocytosis 9 H Toxic Granulation 1+ Platelet Estimate NORMAL Polychromasia 1+ Hypochromasia 1+ Anisocytosis 1+ Macrocytosis 1+ Sodium Level 130 L Potassium Level 4.0 Chloride Level 90 L Carbon Dioxide Level 27 Anion Gap 17 H Blood Urea Nitrogen 8 Creatinine 0.59 L Glucose Level 93 Calcium Level 8.7 Total Bilirubin 0.7 Direct Bilirubin 0.00 Indirect Bilirubin 0.7 Aspartate Amino Transf (AST/SGOT) 77 H Alanine Aminotransferase (ALT/SGPT) 65 Alkaline Phosphatase 268 H Total Protein 5.9 L Albumin 2.9 L Globulin 3.00 Albumin/Globulin Ratio 0.96 Vancomycin Level Trough 14.6 Medications Medications Current Medications Docusate Sodium (Colace) 100 mg Q12H PRN PO CONSTIPATION Last administered on 10:46; Admin Dose 100 MG; Start 01/09/17 at 19:30 Magnesium Hydroxide (Milk Of Mag) 30 ml DAILY PRN PO CONSTIPATION Last administered on 01/29/17 09:33; Admin Dose 30 ML; Start 01/09/17 at 19:30 Sodium Biphosphate/ Sodium Phosphate 133 ml 133 ml DAILY PRN [place] CONSTIPATION; Start 01/09/17 at 19:30 Piperacillin Sod/ Tazobactam Sod (Zosyn 3.375gm/ 100 ml (Pmx)) 100 ml @ 200 mls /hr Q6 IVPB Last administered on 02/01/17 18:10; Admin Dose 200 MLS/HR; Start 01/10/17 at 00:00 Nitroglycerin (Nitroglycerin (Sl Tab) 0.4 Mg) 1 tab Q5M PRN SL ANGINA; Start at 19:30 Miscellaneous [facility] This patient aranda... PRN PRN XX WOUND CARE; Start 01/10/17 at 03:30 Ondansetron HCl 4 mg 4 mg Q6 IV Last administered on 02/01/17 18:10; Admin Dose 4 MG; Start 01/10/17 at 15:30 Acetaminophen (Ofirmev 1000mg/ 100ml Iv) 100 ml @ 400 mls/hr Q6 IVPB Last administered on 02/01/17 18:09; Admin Dose 400 MLS/HR; Start 01/10/17 at 16:30 IV Flush (NS 10 ml) 10 ml PRN PRN IV IV PROTOCOL; Start 01/10/17 at 20:30 Prednisone 10 mg 10 mg DAILY PO Last administered on 02/01/17 09:45; Admin Dose 10 MG; Start 01/15/17 at 09:00 Levofloxacin/ Dextrose 150 ml @ 100 mls/hr Q24H IVPB Last administered on 02/01 16:11; Admin Dose 100 MLS/HR; Start 01/18/17 at 16:00 Trimethoprim/ Sulfamethoxazole 25 ml/Dextrose 525 ml @ 343.333 mls/hr Q8 IVPB Last administered on 01/31/17 05:21; Admin Dose 343.333 MLS/HR; Start 01/19/17 at 13:30; Status Future Hold Hydromorphone HCl/ Dextrose (Dilaudid/D5W) 50 ml @ 2 mls/hr TITRATE IV Last administered on 02/01/17 06:38; Admin Dose 2 MLS/HR; Start 01/23/17 at 16:30 Ergocalciferol (Drisdol) 50,000 unit We@09 PO Last administered on 02/01/17 09 :44; Admin Dose 50,000 UNIT; Start 01/25/17 at 09:00 Calcium Carbonate (Oyster Shell Calcium) 1.25 gm BID PO Last administered on 09:44; Admin Dose 1.25 GM; Start 01/24/17 at 21:00 Pantoprazole (Protonix Tab) 40 mg DAILY@06 PO Last administered on 02/01/17 05 :25; Admin Dose 40 MG; Start 01/26/17 at 06:00 Hydromorphone HCl (Dilaudid) 1 mg Q2 PRN IV PAIN Last administered on 16:52; Admin Dose 1 MG; Start 01/25/17 at 21:00 Atenolol 25 mg 25 mg BID PO Last administered on 02/01/17 09:45; Admin Dose 25 MG; Start 01/30/17 at 12:00 Vancomycin HCl 1.5 gm/Sodium Chloride 250 ml @ 83.333 mls/ hr Q8H IVPB Last administered on 02/01/17 14:30; Admin Dose 83.333 MLS/HR; Start 01/31/17 at 20: 00 Sodium Chloride 1,000 ml @ 100 mls/hr Q10H IV Last administered on 02/01/17 08:00; Admin Dose 100 MLS/HR; Start 02/01/17 at 08:00 Caspofungin/ Sodium Chloride (Cancidas/NS) 250 ml @ 250 mls/hr Q24H IVPB ; Start 02/02/17 at 13:00 Enoxaparin Sodium (Lovenox) 30 mg DAILY SC Last administered on 02/01/17 16:47 ; Admin Dose 30 MG; Start 02/01/17 at 16:00 Filgrastim (Neupogen) 480 mcg DAILY@17 SC Last administered on 02/01/17 16:12 ; Admin Dose 480 MCG; Start 02/01/17 at 17:00 FAUSTINO VALDIVIA MD Feb 01, 2017 19:00
--- NOTE | 2017-02-01 20:44 | PN ---
DATE: 02/01/2017 SUBJECTIVE DATA: The patient is spiking fevers with a T-max of 104.3 this morning. He also is complaining of nausea. He had emesis earlier today. He has abdominal pain. The patient is awake and in no distress. Temperature of 101.8, pulse 132, respirations 20, blood pressure 105/50, saturation 100 on 2 L. LABORATORY AND DIAGNOSTIC DATA: WBC 1.5, H and H 8.7 and 26, platelets 133. BUN 8, creatinine 0.59. Microbiology: Blood culture, urine culture repeated on January 31 negative. Wound culture from the back growing gram-negative rods. INDWELLING: Patient has PICC line placed on January 10. ANTIMICROBIALS: He was started on: 1. Cancidas this morning. 2. Vancomycin. 3. Levaquin. 4. Zosyn. PHYSICAL EXAMINATION: GENERAL: This is a obese, chronically ill-appearing, middle-aged man, who is alert, in no distress. HEENT: Head atraumatic, normocephalic. Sclerae anicteric. Buccal mucosa dry. NECK: Supple. Trachea midline. LUNGS: Chest rise symmetrical. Breath sounds diminished at the bases. HEART: S1, S2. Tachycardic, regular. ABDOMEN: Soft with mild tenderness on palpation. EXTREMITIES: With bilateral edema and multiple necrotic wounds. ASSESSMENT: 1. Ongoing fevers with significant pancytopenia, repeat blood cultures negative. 2. Abdominal pain with nausea and vomiting. 3. Multiple infected wounds. 4. Acute pancreatitis, had been resolving. 5. B-cell lymphoma. 6. Morbid obesity. PLAN: The patient is clinically stable covered with broad- spectrum antibiotics. He is going to be started on Neupogen as per discussion with oncology. We will repeat CT of the abdomen and pelvis. Continue him on current antibiotics. Continue local wound care per nursing staff. Dictated By: Felicia Hdz NP /paulette/vidhi /Document#: [id number]
[2017-02-02] VITALS (13 sets, daily range): BP systolic 96–111; BP diastolic 51–72; PULSE 98–124; RESP 19–20
[2017-02-02] MEDS: HYDROmorphONE 1 MG/ML SYG IV PRN ×9 (00:21→23:07)
[2017-02-02] MEDS: ONDANSETRON 4 MG INJ IV SCH ×4 (00:21→17:49)
[2017-02-02] MEDS: ACETAMINOPHEN 1000MG/100ML IV 100 ML IVPB SCH ×4 (00:21→17:50)
[2017-02-02] MEDS: PIPER-TAZO 3.375 GM IV (PMX) 100 ML IVPB SCH ×4 (01:03→17:51)
[2017-02-02] MEDS: SOD CHLORIDE 0.9% 1,000 ML IV SCH ×3 (01:18→14:00)
[2017-02-02] MEDS: VANCOMYCIN 1.5 GM in SOD CHLORIDE 0.9% 250 ML IVPB SCH ×3 (03:15→21:03)
[2017-02-02] MEDS: PANTOPRAZOLE (EC) 40 MG TAB PO SCH (05:38)
[2017-02-02] MEDS ORDERED: BUPIVACAINE 0.25%/EPI (SDV) 30 ML INJ ONE (07:01)
[2017-02-02 07:32] LABS: ABNORMAL IP MESSAGE 1; HEMATOCRIT 24.1 % (42.0-52.0); HEMOGLOBIN 7.9 g/dl (14.0-18.0); MEAN CORPUSCULAR HEMOGLOBIN 28.7 pg (29.0-33.0); MEAN CORPUSCULAR HGB CONC 32.8 g/dl (32.0-37.0); MEAN CORPUSCULAR VOLUME 87.6 fl (82.0-101.0); MEAN PLATELET VOLUME 10.6 fl (7.4-10.4); PLATELET COUNT 116 10^3/UL (140-415); POSITIVE DIFF @See below; RED BLOOD COUNT 2.75 10^6/ul (4.70-6.10); RED CELL DISTRIBUTION WIDTH 17.8 % (11.5-14.5); WHITE BLOOD COUNT 5.2 10^3/ul (4.8-10.8)
--- NOTE | 2017-02-02 08:26 | PN ---
Date/Time of Note Date/Time of Note DATE: 02/01/17 TIME: 08:22 Assessment/Plan Lines/Catheters IV Catheter Type (from Nrs): PICC Line Sierra in Place (from Nrs): No Assessment/Plan Assessment/Plan [facility] Progress Note (late entry) Date of Service: 02/01/2017 Place of service: [facility] 5W tele Today's Assessment & Plan: Overall stable with many medical issues. Pancreatitis seems controlled and chemically normal. At this time, I feel that we are at a point that laparoscopic cholecystectomy can be attempted. I have no doubt that part of patients clinical picture is driven by the gallbladder and it needs to be addressed. For this reason a semi-elective/urgent operation is needed. We are tentatively planned to do so in the morning tomorrow. I discussed all of this with the patient and answered all of their questions to the best of my ability. I believe that they understood and agreed with the plans. I also discussed this with the team as well. 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 Very difficult situation with somewhat poor prognosis. Fortunately no indication for acute surgical intervention. No evidence of infected necrosis that would require drain placement or surgical necrosectomy of the pancreas. Would be important to try and avoid major interventions in order to not delay life-prolonging chemotherapeutic intervention. HIDA scan positive reflecting potential for chronic or acute on chronic cholecystitis. Even without the HIDA scan, the patient has enough indication for cholecystectomy at some point in the near future to hopefully try and prevent the same issue happening in the future. With a positive HIDA scan, we have more of an urgency. Patient is sufficiently far enough from his last dose of chemotherapy that the operation can be done with reasonable risk and with adequate expectation of uncomplicated healing. The only issue would be the amount of time that the patient will need to heal from surgery and whether will have any complications or not afterwards and might delay receiving further chemotherapy down the line. One advantage of doing an operation for the gallbladder is that we could potentially set this up with intraoperative ultrasound-guided biopsy of the lesion in the right lobe of liver, which would give us more tissue evaluation of the state of the disease and for any further markers that may need to be looked at for adjustment of his chemotherapy regimen. The option of percutaneous cholecystostomy tube placement is also on the table, although most oncologists would rather not give chemotherapy with a cholecystostomy drain in place. With above assessment, I've recommended the followin. Continue aggressive medical management 2. Cont full liquid diet and advance slowly 3. Follow GIs recommendations 4. If it would make a difference in management, may consider percutaneous biopsy of segment 6 area of abnormality in the liver 5. Multidisciplinary tumor board presentation and discussions 6. Consideration for clinical trials once improved medically 7. LFT's, amylase and lipase checks tomorrow with labs 8. Will likely benefit from aggressive bowel regimen (some of the pain likely from constipation) 9. Will try to set up for laparoscopic cholecystectomy tomorrow morning, if possible with intraoperative ultrasound biopsy of the liver lesion in segment 6 Thank you very much for having me involved in the care of this very pleasant patient and wonderful family. If you have any questions, please feel free to contact me at [phone]. Nature of presenting problem: High severity Please note that, given the extensive number of diagnoses or management options , the extensive amount and/or complexity of data needed to be reviewed, and high risk of complications and/or morbidity or mortality, this qualifies as high complexity type of decision-making. Disclaimer: Inadvertent spelling and grammatical errors are likely due to EHR/ dictation software use and do not reflect on the quality of delivered patient care. Also, please note that the electronic time recorded on this node does not necessarily reflect the actual time of the visit. 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 HIDA scan positive 01/28/2017. Status post CT-guided left flank subcutaneous nodule biopsy [facility] 01/12/2017. Comorbidities: 1. BMI 40.7 2. Small right pleural effusion with atelectasis and right lung base pneumonia. 3. Large B cell anaplastic lymphoma; status post chemo 1 month prior to presentation 4. Sepsis 5. Hyponatremia 6. Hypokalemia 7. Acute renal injury Subjective: No major events or complaints; reported no major new abd pain and under control with medications; no significant reported nausea or vomiting and no major diarrhea; no sob or cp; + flatus; + BM; minimal to no activity. Objective: Vitals: See below I's & O's: See below Exam: GENERAL: On exam, the patient was lying in bed and appeared to be comfortable and in no acute distress. Less diaphoretic. ABDOMEN: Soft, minimal to no tenderness and nondistended. There are no peritoneal signs or guarding. SKIN: Skin appears to be pink and feels warm to touch. NEUROLOGIC: Patient is awake, alert, and follows commands appropriately. Labs: See below Exam/Review of Systems Vital Signs Vitals Vital Signs Date Time Temp Pulse Resp B/P Pulse Ox O2 Delivery O2 Flow Rate FiO2 02/02/17 07:47 99.1 101 20 101/55 97 02/01/17 21:28 2.0 02/01/17 21:27 Nasal Cannula Intake and Output 02/01/17 02/01/17 02/02/17 15:00 23:00 07:00 Intake Total 1200 ml 2134 ml Output Total 550 ml Balance 1200 ml 1584 ml Results Result Diagram: 02/02/17 0620 02/01/17 0558 ELNKA HERNANDEZ M.D. Feb 02, 2017 08:25
--- NOTE | 2017-02-02 08:36 | PN ---
Date/Time of Note Date/Time of Note DATE: 02/02/17 TIME: 08:32 Assessment/Plan Lines/Catheters IV Catheter Type (from [facility]): PICC Line Sierra in Place (from [facility]): No Assessment/Plan Assessment/Plan [facility] Progress Note Date of Service: 02/02/2017 Place of service: [facility] 5W tele Today's Assessment & Plan: Overall stable with many medical issues. We decided to cancel the plans for laparoscopic cholecystectomy this morning due to the patient's leukopenia. Note that the white blood cell count this morning was more than normal range, but this was due to Neupogen that was administered yesterday. I had a discussion with Dr. Heart and we reviewed the patient's images and we both agreed that at this point, instead of doing a laparoscopic cholecystectomy, that would be better for the patient to have a percutaneous cholecystostomy tube placed. Rationale for this decision is that the pancreatitis of the patient has will likely make the operation very difficult or at times, impossible to do. 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 He will likely be a temporary tube and our plan would be to stabilize the patient further for a few weeks and bring him back for a more elective laparoscopic cholecystectomy which would have a high chance of success. Patient otherwise appears to be clinically stable and will likely tolerate the drain placement adequately well. I discussed all of this with the patient and answered all of their questions to the best of my ability. I believe that they understood and agreed with the plans. I also discussed this with the team as well. 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 Very difficult situation with somewhat poor prognosis. Fortunately no indication for acute surgical intervention. No evidence of infected necrosis that would require drain placement or surgical necrosectomy of the pancreas. Would be important to try and avoid major interventions in order to not delay life-prolonging chemotherapeutic intervention. HIDA scan positive reflecting potential for chronic or acute on chronic cholecystitis. Even without the HIDA scan, the patient has enough indication for cholecystectomy at some point in the near future to hopefully try and prevent the same issue happening in the future. With a positive HIDA scan, we have more of an urgency. Patient is sufficiently far enough from his last dose of chemotherapy that the operation can be done with reasonable risk and with adequate expectation of uncomplicated healing. The only issue would be the amount of time that the patient will need to heal from surgery and whether will have any complications or not afterwards and might delay receiving further chemotherapy down the line. One advantage of doing an operation for the gallbladder is that we could potentially set this up with intraoperative ultrasound-guided biopsy of the lesion in the right lobe of liver, which would give us more tissue evaluation of the state of the disease and for any further markers that may need to be looked at for adjustment of his chemotherapy regimen. The option of percutaneous cholecystostomy tube placement is also on the table, although most oncologists would rather not give chemotherapy with a cholecystostomy drain in place. With above assessment, I've recommended the followin. Continue aggressive medical management 2. Cont full liquid diet and advance slowly 3. Follow GIs recommendations 4. If it would make a difference in management, may consider percutaneous biopsy of segment 6 area of abnormality in the liver 5. Multidisciplinary tumor board presentation and discussions 6. Consideration for clinical trials once improved medically 7. LFT's, amylase and lipase checks tomorrow with labs 8. Will likely benefit from aggressive bowel regimen (some of the pain likely from constipation) 9. Percutaneous cholecystostomy drain placement by IR Thank you very much for having me involved in the care of this very pleasant patient and wonderful family. If you have any questions, please feel free to contact me at [phone]. Nature of presenting problem: High severity Please note that, given the extensive number of diagnoses or management options , the extensive amount and/or complexity of data needed to be reviewed, and high risk of complications and/or morbidity or mortality, this qualifies as high complexity type of decision-making. Disclaimer: Inadvertent spelling and grammatical errors are likely due to EHR/ dictation software use and do not reflect on the quality of delivered patient care. Also, please note that the electronic time recorded on this node does not necessarily reflect the actual time of the visit. 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 HIDA scan positive 01/28/2017. Status post CT-guided left flank subcutaneous nodule biopsy [facility] 01/12/2017. Comorbidities: 1. BMI 40.7 2. Small right pleural effusion with atelectasis and right lung base pneumonia. 3. Large B cell anaplastic lymphoma; status post chemo 1 month prior to presentation 4. Sepsis 5. Hyponatremia 6. Hypokalemia 7. Acute renal injury Subjective: No major events or complaints; reported no major new abd pain and under control with medications; no significant reported nausea or vomiting and no major diarrhea; no sob or cp; + flatus; + BM; minimal to no activity. Objective: Vitals: See below I's & O's: See below Exam: GENERAL: On exam, the patient was lying in bed and appeared to be comfortable and in no acute distress. Less diaphoretic. ABDOMEN: Soft, minimal to no tenderness and nondistended. There are no peritoneal signs or guarding. SKIN: Skin appears to be pink and feels warm to touch. NEUROLOGIC: Patient is awake, alert, and follows commands appropriately. Labs: See below Exam/Review of Systems Vital Signs Vitals Vital Signs Date Time Temp Pulse Resp B/P Pulse Ox O2 Delivery O2 Flow Rate FiO2 02/02/17 08:19 111 02/02/17 07:47 99.1 20 101/55 97 02/01/17 21:28 2.0 02/01/17 21:27 Nasal Cannula Intake and Output 02/01/17 02/01/17 02/02/17 15:00 23:00 07:00 Intake Total 1200 ml 2134 ml Output Total 550 ml Balance 1200 ml 1584 ml Results Result Diagram: 02/02/17 0620 02/01/17 0558 LENKA HERNANDEZ M.D. Feb 02, 2017 08:36
[2017-02-02] MEDS: ENOXAPARIN 30 MG/0.3 ML SYG SC SCH ×2 (09:00→10:17)
[2017-02-02] MEDS: ATENOLOL 25 MG TAB PO SCH ×2 (09:00→21:00)
[2017-02-02 09:12] LABS: ANISOCYTOSIS 1+ (0-0); EOSINOPHILS % (M) 1 % (0-7); GIANT THROMBO% (M) 1 % (0-0); HYPOCHROMASIA 1+ (0-0); MICROCYTOSIS 1+ (0-0); MONOCYTES % (M) 3 % (0-11); PLATELET ESTIMATE DECREASED
[2017-02-02 09:21] LABS: CALCIUM 8.2 mg/dl (8.4-10.2); CREATININE 0.56 mg/dl (0.61-1.24); POTASSIUM 3.4 mmol/L (3.5-5.1)
[2017-02-02] MEDS: CALCIUM CARBONATE 1.25 GM TAB PO SCH ×2 (09:54→21:00)
[2017-02-02] MEDS: predniSONE 20 MG TAB PO SCH (09:55)
--- NOTE | 2017-02-02 11:32 | CONS ---
Date/Time of Note Date/Time of Note DATE: 02/02/17 TIME: 11:29 Assessment/Plan Assessment/Plan Chief Complaint/Hosp Course IMP: 1.Tachycardia- S Tach-NL Ft4. Likely driven by fevers/NL EF b echo this admit 2.lymphoma 3.HTN 4.anemia 5.obesity 6.Hyponatremia 7.Pancreatitis-improved Recc: -Tele -serial ecg's -continue BB as toleratedonly -Continue abx's and f/u cx data -IVF hydration -ongoing onc eval and treatment Problems: Consultation Date/Type/Reason Admit Date/Time Jan 09, 2017 at 19:08 Initial Consult Date 01/15/17 Type of Consultation: cardiology Reason for Consultation tachycardia Referring Provider: YAO RAHMAN Exam/Review of Systems Vital Signs Vitals Vital Signs Date Time Temp Pulse Resp B/P Pulse Ox O2 Delivery O2 Flow Rate FiO2 02/02/17 11:12 99.4 123 20 111/52 97 02/01/17 21:28 2.0 02/01/17 21:27 Nasal Cannula Intake and Output 02/01/17 02/01/17 02/02/17 15:00 23:00 07:00 Intake Total 1200 ml 2134 ml Output Total 550 ml Balance 1200 ml 1584 ml Exam Review of Systems: CONSTITUTIONAL: fevers, chills. PULMONARY: No sob CARDIOVASCULAR: No chest pain/palpitations GASTROINTESTINAL: No nausea/vomiting. GENITOURINARY: No hematuria/dysuria. MUSCULOSKELETAL: No myagias/arthalgias. PSYCHIATRIC: The patient denies depression. NEUROLOGIC: No weakness Constitutional: other (sleeping) Psych: no complaints Head: normocephalic ENMT: mucosa pink and moist Neck: jvd (8-9 cm water), supple Respiratory: diminished breath sounds (at bases/B) Cardiovascular: regular rate and rhythm Gastrointestinal: non-tender, soft Musculoskeletal: muscle tone (normal) Extremities: edema (nonw) Neurological: other (No focval deficits) Results Result Diagram: 02/02/17 0620 02/02/17 0620 Results 24 hrs Laboratory Tests Test 02/02/17 06:20 White Blood Count 5.2 # Red Blood Count 2.75 L Hemoglobin 7.9 L Hematocrit 24.1 L Mean Corpuscular Volume 87.6 Mean Corpuscular Hemoglobin 28.7 L Mean Corpuscular Hemoglobin Concent 32.8 Red Cell Distribution Width 17.8 H Platelet Count 116 L Mean Platelet Volume 10.6 H Neutrophils % Segmented Neutrophils % (Manual) 70 Band Neutrophils % (Manual) 25 H Lymphocytes % Lymphocytes % (Manual) 1 L Monocytes % Monocytes % (Manual) 3 Eosinophils % Eosinophils % (Manual) 1 Basophils % Nucleated Red Blood Cells % 0.0 Neutrophils # (Manual) 4 Band Neutrophils # 1.3 H Absolute Lymphocytes (Manual) 0.0 L Lymphocytes # Monocytes # Absolute Monocytes (Manual) 0.1 L Eosinophils # Basophils # Nucleated Red Blood Cells # Thrombocytosis 1 H Platelet Estimate DECREASED Hypochromasia 1+ Anisocytosis 1+ Microcytosis 1+ Sodium Level 128 L Potassium Level 3.4 L Chloride Level 95 L Carbon Dioxide Level 24 Anion Gap 12 Blood Urea Nitrogen 10 Creatinine 0.56 L Glucose Level 81 Calcium Level 8.2 L Medications Medications Current Medications Docusate Sodium (Colace) 100 mg Q12H PRN PO CONSTIPATION Last administered on 10:46; Admin Dose 100 MG; Start 01/09/17 at 19:30 Magnesium Hydroxide (Milk Of Mag) 30 ml DAILY PRN PO CONSTIPATION Last administered on 01/29/17 09:33; Admin Dose 30 ML; Start 01/09/17 at 19:30 Sodium Biphosphate/ Sodium Phosphate 133 ml 133 ml DAILY PRN [place] CONSTIPATION; Start 01/09/17 at 19:30 Piperacillin Sod/ Tazobactam Sod (Zosyn 3.375gm/ 100 ml (Pmx)) 100 ml @ 200 mls /hr Q6 IVPB Last administered on 02/02/17 05:44; Admin Dose 200 MLS/HR; Start 01/10/17 at 00:00 Nitroglycerin (Nitroglycerin (Sl Tab) 0.4 Mg) 1 tab Q5M PRN SL ANGINA; Start at 19:30 Miscellaneous Information [facility] This patient aranda... PRN PRN XX WOUND CARE; Start 01/10/17 at 03:30 Ondansetron HCl 4 mg 4 mg Q6 IV Last administered on 02/02/17 10:07; Admin Dose 4 MG; Start 01/10/17 at 15:30 Acetaminophen (Ofirmev 1000mg/ 100ml Iv) 100 ml @ 400 mls/hr Q6 IVPB Last administered on 02/02/17 05:31; Admin Dose 400 MLS/HR; Start 01/10/17 at 16:30 IV Flush (NS 10 ml) 10 ml PRN PRN IV IV PROTOCOL; Start 01/10/17 at 20:30 Prednisone 10 mg 10 mg DAILY PO Last administered on 02/02/17 09:55; Admin Dose 10 MG; Start 01/15/17 at 09:00 Levofloxacin/ Dextrose 150 ml @ 100 mls/hr Q24H IVPB Last administered on 02/01 16:11; Admin Dose 100 MLS/HR; Start 01/18/17 at 16:00 Trimethoprim/ Sulfamethoxazole 25 ml/Dextrose 525 ml @ 343.333 mls/hr Q8 IVPB Last administered on 01/31/17 05:21; Admin Dose 343.333 MLS/HR; Start 01/19/17 at 13:30; Status Future Hold Hydromorphone HCl/ Dextrose (Dilaudid/D5W) 50 ml @ 2 mls/hr TITRATE IV Last administered on 02/01/17 06:38; Admin Dose 2 MLS/HR; Start 01/23/17 at 16:30 Ergocalciferol (Drisdol) 50,000 unit We@09 PO Last administered on 02/01/17 09 :44; Admin Dose 50,000 UNIT; Start 01/25/17 at 09:00 Calcium Carbonate (Oyster Shell Calcium) 1.25 gm BID PO Last administered on 09:54; Admin Dose 1.25 GM; Start 01/24/17 at 21:00 Pantoprazole (Protonix Tab) 40 mg DAILY@06 PO Last administered on 02/02/17 05 :38; Admin Dose 40 MG; Start 01/26/17 at 06:00 Hydromorphone HCl (Dilaudid) 1 mg Q2 PRN IV PAIN Last administered on 09:49; Admin Dose 1 MG; Start 01/25/17 at 21:00 Atenolol 25 mg 25 mg BID PO Last administered on 02/01/17 09:45; Admin Dose 25 MG; Start 01/30/17 at 12:00 Vancomycin HCl 1.5 gm/Sodium Chloride 250 ml @ 83.333 mls/ hr Q8H IVPB Last administered on 02/02/17 03:15; Admin Dose 83.333 MLS/HR; Start 01/31/17 at 20: 00 Sodium Chloride 1,000 ml @ 100 mls/hr Q10H IV Last administered on 02/02/17 01:18; Admin Dose 100 MLS/HR; Start 02/01/17 at 08:00 Caspofungin/ Sodium Chloride (Cancidas/NS) 250 ml @ 250 mls/hr Q24H IVPB ; Start 02/02/17 at 13:00 Enoxaparin Sodium (Lovenox) 30 mg DAILY SC Last administered on 02/01/17 16:47 ; Admin Dose 30 MG; Start 02/01/17 at 16:00 Filgrastim (Neupogen) 480 mcg DAILY@17 SC Last administered on 02/01/17 16:12 ; Admin Dose 480 MCG; Start 02/01/17 at 17:00 LARRY SANTANA Feb 02, 2017 11:32
[2017-02-02] MEDS ORDERED: SOD CHLORIDE 0.9% 100 ML ONE (11:37)
[2017-02-02] MEDS ORDERED: IOHEXOL 300MG/ML 150 ML BTL ONE (11:37)
[2017-02-02] MEDS ORDERED: FENTAnyl 50 MCG/ML VIAL ONE ×2 (12:01)
[2017-02-02] MEDS ORDERED: PHENYLephrine (100 MCG/ML) 5ML SYG ONE (12:02)
[2017-02-02] MEDS ORDERED: PROPOFOL 0 ML ONE (12:02)
[2017-02-02] MEDS ORDERED: EPHEDrine SULFATE 50 MG/5 ML SYG ONE (12:02)
[2017-02-02] MEDS ORDERED: MIDAZOLAM 1 MG/ML 2 ML INJ ONE (12:19)
[2017-02-02] MEDS ORDERED: DIPHENHYDRAMINE 50 MG INJ ONE (12:19)
[2017-02-02] MEDS ORDERED: DEXAMETHASONE 4 MG/ML 1 ML INJ ONE (12:19)
[2017-02-02] MEDS ORDERED: ONDANSETRON 4 MG INJ ONE (12:19)
--- NOTE | 2017-02-02 14:10 | RADRPT ---
PROCEDURE: CT guided cholecystostomy. CLINICAL INDICATION: Right upper quadrant abdomen pain. Cholecystitis. The patient is too unstab le for surgery. TECHNIQUE: Informed consent was obtained. The procedure, risks, benefits, complications and alternatives were explained to the patient. Risks including bleeding and infection were explained. The patient under stood and was willing to proceed. A procedural pause was performed. The patient's name, date of bir th, and procedure to be performed were verified. One or more of the following dose reduction techn iques were used: Automated exposure control, adjustment of the mA and/or kV according to patient siz e, use of iterative reconstruction technique. Using local anesthetic, sterile technique and CT guidance, a 19-gauge Yueh needle was advanced throu gh the liver and into the gallbladder. CT scan was performed confirming position. Bilious fluid wa s also aspirated confirming position. The needle from the Yueh catheter was removed, leaving the Tello eh catheter in place within the gallbladder. A 0.035-inch Amplatz guidewire was advanced through th e Yueh catheter into the gallbladder. The Yueh catheter was removed. The tract was dilated to 8-Fr ench, and an 8.5 [place] multipurpose drainage catheter was advanced over the guidewire into the gall bladder. The guidewire was removed. Additional scanning was performed confirming position. The ca theter was then sutured to the patient's skin with 2-0 silk. Bilious fluid was aspirated. The cath eter was connected to a drainage bag. A dressing was applied. 175 ml of thick bilious fluid was asp irated from the gallbladder. The patient tolerated procedure well. COMPARISON: None. FINDINGS: Final images demonstrate the drainage catheter in satisfactory position within the gallbladder. IMPRESSION: 1. Successful CT guided cholecystostomy. RPTAT: QQ .Portillo Heart MD, Date Time Electronically viewed and signed by .Portillo Heart MD, on 02/02/2017 14:09 .R/
[2017-02-02] MEDS: CASPOFUNGIN 50 MG in NS 250 ML IVPB SCH (14:28)
[2017-02-02] MEDS: HYDROmorphONE 50 MG in DEXTROSE 5% 45 ML IV SCH (15:52)
[2017-02-02] MEDS: COLISTIMETHATE (25 MG/ML INHAL SYG) NEB SCH ×2 (16:07→20:33)
--- NOTE | 2017-02-02 16:32 | RADRPT ---
PROCEDURE: CT Abdomen and Pelvis with contrast. CLINICAL INDICATION: Pancreatitis. Evaluate for obstruction. TECHNIQUE: Multiple contiguous axial CT images of the abdomen and pelvis were obtained following t he administration of 100 cc of Omnipaque-300. Coronal and sagittal reconstructions were also perfor med. CTDIvol (mGy): 23.11; Total Exam DLP (mGy-cm): 1770.84. One or more of the following dose reduction techniques were utilized: - Automated exposure control. - Adjustment of the mA and/or kV according to patient size. - Use of iterative reconstruction technique. COMPARISON: 01/19/2017. FINDINGS: Limited imaging of the lower thorax demonstrates numerous irregular nodules throughout the lung base s, particularly within the right lung base. Most are larger in size with scattered few new nodules also observed. The liver is enlarged and measures approximately 22.3 cm in a craniocaudal dimension. There is a 9. 6 cm area of mass-like heterogeneous enhancement within segment VII, which is larger in size previou sly measuring approximately 4.0 cm when remeasured at corresponding anatomic level. There is a simil ar structure within the inferior of the right hepatic lobe measuring 8.6 cm, previously 5.2 cm. Perf usion changes are seen within the immediate surrounding hepatic parenchyma. The hepatic and portal v eins are patent. The gallbladder is mildly distended. There is no gallbladder wall thickening or per icholecystic fluid. The spleen is mildly enlarged measuring 15.8 cm in a craniocaudal dimension. Ext ensive peripancreatic edema is observed and has mildly decreased. A more confluent nodular infiltra tion of the mesenteric fat is observed and most compatible with evolving changes of pancreatitis. Pe ripancreatic fluid has become slightly more organized since prior examination. Pancreatic parenchymal enhancement is observed. The adrenal glands are unremarkable. The kidneys are symmetric in size . There is a focal 2.8 cm subtle hypoenhancing mass/poor corticome dullary distinction within the left kidney, which is grossly unchanged. There is no hydronephrosis o r abnormal perinephric inflammation. There are no ureteral stones. The abdominal aorta is normal in caliber. There is no periaortic / retroperitoneal lymphadenopathy. Scattered few small retroperitoneal lymph nodes are present and unchanged. The stomach is collapsed. The small intestines are unremarkable. Mild residual submucosal edema with in the ascending colon is observed. There is no evidence of pneumatosis or pneumoperitoneum. The bladder, prostate and seminal vesicles are unremarkable. Trace free pelvic fluid is observed. Sm all bilateral fat containing hernias are present. Extensive infiltration throughout the subcutaneous soft tissues is observed and has slightly decreas ed. Background subcutaneous edema has decreased. Skeletal structures are unremarkable. IMPRESSION: Evolving changes of acute pancreatitis. Peripancreatic fluid has become more organized since previo us examination. Heterogeneous mass-like areas of enhancement within the liver, increased. A similar appearing paren chymal abnormality is seen within the left kidney and is grossly unchanged. Numerous small irregular nodules throughout the lung bases, increased. Extensive subcutaneous infiltration, slightly decreased along with background subcutaneous edema. Hepatosplenomegaly. RPTAT: HLST .Celia Naidu MD, MD Date Time Electronically viewed and signed by .Celia Naidu MD, MD on 02/02/2017 16:32 .T/
--- NOTE | 2017-02-02 16:48 | PN ---
DATE: 02/02/2017 SUBJECTIVE: No acute changes overnight. Patient had been afebrile. T-max yesterday was 101.8, T-current 99.4, pulse 123, respirations 20, blood pressure 111/52, saturation 97 on 2 L. WBC today 5.2, H and H 7.9 and 24.1, platelets 116,000. BUN 10, creatinine 0.56. MICROBIOLOGY: Blood cultures and urine culture repeated on January 31 and , preliminary negative. INDWELLINGS: PICC line. ANTIMICROBIALS: Patient is on: 1. IV Cancidas. 2. Vancomycin. 3. Colistin inhalation. 4. Levaquin. 5. Zosyn. PHYSICAL EXAMINATION: GENERAL: This is obese, well-developed, middle-aged man, who is awake, complaining of abdominal pain and nausea. The patient is in no distress. HEENT: Head atraumatic, normocephalic. Sclerae anicteric. Buccal mucosa dry. NECK: Supple. CHEST: Rise symmetrical. Breath sounds diminished at bases. HEART: S1, S2. ABDOMEN: Soft, bowel sounds present. EXTREMITIES: Without cyanosis. Bilateral edema and multiple chronic necrotic wounds. ASSESSMENT: 1. Recurrent fevers, likely combination of neutropenia as well as infection. 2. Acute cholecystitis. 3. Resolving pancreatitis. 4. Multiple necrotic infected wounds. 5. B-cell lymphoma. 6. Morbid obesity. PLAN: Patient remains stable, status post Neupogen, started yesterday with white blood cell count improved. He is scheduled for CT-guided cholecystostomy tube placement. We will continue him on current antimicrobials for now, await for wound culture that was sent on January 31. Dictated By: Felicia Hdz NP /paulette/sebastien /Document#: [id number]
[2017-02-02] MEDS: LEVOFLOXACIN 750MG/D5W (PMX) 150 ML IVPB SCH (17:42)
[2017-02-02] MEDS: FILGRASTIM 480 MCG INJ SC SCH (17:42)
--- NOTE | 2017-02-02 18:51 | PN ---
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 pancreatitis on pain control with DIilaudid 2 Fevers 102>104 this am> 99 today likely Abdominal source 3 Hyponatremia on bactrim with d5 w> stopped 130 4 Acute renal injury resolved 5 Right pleural effusion with atelectasis and right lung base pneumonia, resolved. 6. Large B cell anaplastic lymphoma; status post chemo 1 month, leukopenia now neutropenic 7. 2 Hypoparathyroidism On Calcitrol and Caco3 8 Severe anemia 9 Morbid obesity 10 Skin wounds Assessment/Plan 1. c/w Vancomycin/ Cefepime/Levaquin.Added caspofungin 2 c/w Colistin 3 CT CAP today 4 c/w NS at 100 cc/hr 5 Neupogen per Onc 6 Dilaudid for pain 7 GI/DVT prophylaxsis 8 Apppreciate all consults Problems: Subjective 24 Hr Interval Summary Free Text/Dictation Pt seen in am Fevers improved however continues to have abdominal pain CT A+P pending today Exam/Review of Systems Vital Signs Vitals Vital Signs Date Time Temp Pulse Resp B/P Pulse Ox O2 Delivery O2 Flow Rate FiO2 02/02/17 16:12 106 02/02/17 15:45 99.8 19 101/51 99 02/02/17 15:09 2.0 02/02/17 15:09 Nasal Cannula Intake and Output 02/01/17 02/01/17 02/02/17 15:00 23:00 07:00 Intake Total 1200 ml 2134 ml Output Total 550 ml Balance 1200 ml 1584 ml Results Result Diagram: 02/02/17 0620 02/02/17 0620 Results 24 hrs Laboratory Tests Test 02/02/17 06:20 White Blood Count 5.2 # Red Blood Count 2.75 L Hemoglobin 7.9 L Hematocrit 24.1 L Mean Corpuscular Volume 87.6 Mean Corpuscular Hemoglobin 28.7 L Mean Corpuscular Hemoglobin Concent 32.8 Red Cell Distribution Width 17.8 H Platelet Count 116 L Mean Platelet Volume 10.6 H Neutrophils % Segmented Neutrophils % (Manual) 70 Band Neutrophils % (Manual) 25 H Lymphocytes % Lymphocytes % (Manual) 1 L Monocytes % Monocytes % (Manual) 3 Eosinophils % Eosinophils % (Manual) 1 Basophils % Nucleated Red Blood Cells % 0.0 Neutrophils # (Manual) 4 Band Neutrophils # 1.3 H Absolute Lymphocytes (Manual) 0.0 L Lymphocytes # Monocytes # Absolute Monocytes (Manual) 0.1 L Eosinophils # Basophils # Nucleated Red Blood Cells # Thrombocytosis 1 H Platelet Estimate DECREASED Hypochromasia 1+ Anisocytosis 1+ Microcytosis 1+ Sodium Level 131 L Potassium Level 3.4 L Chloride Level 95 L Carbon Dioxide Level 24 Anion Gap 15 Blood Urea Nitrogen 10 Creatinine 0.56 L Glucose Level 81 Calcium Level 8.2 L Lipase 514 H Medications Medications Current Medications Docusate Sodium (Colace) 100 mg Q12H PRN PO CONSTIPATION Last administered on 10:46; Admin Dose 100 MG; Start 01/09/17 at 19:30 Magnesium Hydroxide (Milk Of Mag) 30 ml DAILY PRN PO CONSTIPATION Last administered on 01/29/17 09:33; Admin Dose 30 ML; Start 01/09/17 at 19:30 Sodium Biphosphate/ Sodium Phosphate 133 ml 133 ml DAILY PRN [place] CONSTIPATION; Start 01/09/17 at 19:30 Piperacillin Sod/ Tazobactam Sod (Zosyn 3.375gm/ 100 ml (Pmx)) 100 ml @ 200 mls /hr Q6 IVPB Last administered on 02/02/17 17:51; Admin Dose 200 MLS/HR; Start 01/10/17 at 00:00 Nitroglycerin (Nitroglycerin (Sl Tab) 0.4 Mg) 1 tab Q5M PRN SL ANGINA; Start at 19:30 Miscellaneous Information (Pending [facility] Order For Wound Care) This patient aranda... PRN PRN XX WOUND CARE; Start 01/10/17 at 03:30 Ondansetron HCl 4 mg 4 mg Q6 IV Last administered on 02/02/17 17:49; Admin Dose 4 MG; Start 01/10/17 at 15:30 Acetaminophen (Ofirmev 1000mg/ 100ml Iv) 100 ml @ 400 mls/hr Q6 IVPB Last administered on 02/02/17 17:50; Admin Dose 400 MLS/HR; Start 01/10/17 at 16:30 IV Flush (NS 10 ml) 10 ml PRN PRN IV IV PROTOCOL; Start 01/10/17 at 20:30 Prednisone 10 mg 10 mg DAILY PO Last administered on 02/02/17 09:55; Admin Dose 10 MG; Start 01/15/17 at 09:00 Levofloxacin/ Dextrose 150 ml @ 100 mls/hr Q24H IVPB Last administered on 02/02 17:42; Admin Dose 100 MLS/HR; Start 01/18/17 at 16:00 Trimethoprim/ Sulfamethoxazole 25 ml/Dextrose 525 ml @ 343.333 mls/hr Q8 IVPB Last administered on 01/31/17 05:21; Admin Dose 343.333 MLS/HR; Start 01/19/17 at 13:30; Status Future Hold Hydromorphone HCl/ Dextrose (Dilaudid/D5W) 50 ml @ 2 mls/hr TITRATE IV Last administered on 02/02/17 15:52; Admin Dose 2 MLS/HR; Start 01/23/17 at 16:30 Ergocalciferol (Drisdol) 50,000 unit We@09 PO Last administered on 02/01/17 09 :44; Admin Dose 50,000 UNIT; Start 01/25/17 at 09:00 Calcium Carbonate (Oyster Shell Calcium) 1.25 gm BID PO Last administered on 09:54; Admin Dose 1.25 GM; Start 01/24/17 at 21:00 Pantoprazole (Protonix Tab) 40 mg DAILY@06 PO Last administered on 02/02/17 05 :38; Admin Dose 40 MG; Start 01/26/17 at 06:00 Hydromorphone HCl (Dilaudid) 1 mg Q2 PRN IV PAIN Last administered on 18:33; Admin Dose 1 MG; Start 01/25/17 at 21:00 Atenolol 25 mg 25 mg BID PO Last administered on 02/01/17 09:45; Admin Dose 25 MG; Start 01/30/17 at 12:00 Vancomycin HCl 1.5 gm/Sodium Chloride 250 ml @ 83.333 mls/ hr Q8H IVPB Last administered on 02/02/17 14:28; Admin Dose 83.333 MLS/HR; Start 01/31/17 at 20: 00 Sodium Chloride 1,000 ml @ 100 mls/hr Q10H IV Last administered on 02/02/17 14:00; Admin Dose 100 MLS/HR; Start 02/01/17 at 08:00 Caspofungin/ Sodium Chloride (Cancidas/NS) 250 ml @ 250 mls/hr Q24H IVPB Last administered on 02/02/17 14:28; Admin Dose 250 MLS/HR; Start 02/02/17 at 13:00 Enoxaparin Sodium (Lovenox) 30 mg DAILY SC Last administered on 02/01/17 16:47 ; Admin Dose 30 MG; Start 02/01/17 at 16:00 Filgrastim (Neupogen) 480 mcg DAILY@17 SC Last administered on 02/02/17 17:42 ; Admin Dose 480 MCG; Start 02/01/17 at 17:00 Miscellaneous Information (*Rx Drug Level Order Reminder*) 1 ONCE ONCE XX ; Start 02/03/17 at 03:00; Stop 02/03/17 at 03:01 TAMARA HARTMANN MD Feb 02, 2017 18:51
[2017-02-02] MEDS ORDERED: POTASSIUM CHLORIDE 250 ML IVPB ONE (19:00)
--- NOTE | 2017-02-02 20:30 | PN ---
Date/Time of Note Date/Time of Note DATE: 02/02/17 TIME: 20:28 Assessment/Plan VTE Prophylaxis VTE Prophylaxis Intervention: SCD's Lines/Catheters IV Catheter Type (from Nrs): PICC Line Central line still needed: Yes Urinary Cath still in place: No Assessment/Plan Assessment/Plan Assessment: * Anemia * Acute pancreatitis, etiology unclear/improved * Cholelithiasis * Post cholecystostomy * Mild abnormality liver function tests with no evidence of biliary pathology * Anaplastic B-cell lymphoma/aggressive behavior * Sepsis/pneumonia/improved Plan: * continue present management * pain control * Monitor hemoglobin and hematocrit daily * Continue monitor lipase and abdominal pain Free Text/Dictation * Course reviewed with RN * patient seen and examined * tolerating diet, vomited today * Still some epigastric abdominal pain * Had cholecystostomy Exam Constitutional: alert, frail Neck: non-tender, supple Respiratory: diminished breath sounds, normal air movement Cardiovascular: nl pulses, regular rate and rhythm Gastrointestinal: distended, soft, mild epigastric tenderness No rebound or guarding Musculoskeletal: muscle weakness Extremities: edema, pitting pedal edema Neurological: nl mental status, nl speech Skin: nl turgor, No rash or lesions Lymph: nl lymph nodes Exam/Review of Systems Vital Signs Vitals Vital Signs Date Time Temp Pulse Resp B/P Pulse Ox O2 Delivery O2 Flow Rate FiO2 02/02/17 20:16 98 02/02/17 19:36 98.1 19 107/55 97 02/02/17 15:09 2.0 02/02/17 15:09 Nasal Cannula Intake and Output 02/01/17 02/01/17 02/02/17 15:00 23:00 07:00 Intake Total 1200 ml 2134 ml Output Total 550 ml Balance 1200 ml 1584 ml Results Result Diagram: 02/02/17 0620 02/02/17 0620 Results 24 hrs Laboratory Tests Test 02/02/17 06:20 White Blood Count 5.2 # Red Blood Count 2.75 L Hemoglobin 7.9 L Hematocrit 24.1 L Mean Corpuscular Volume 87.6 Mean Corpuscular Hemoglobin 28.7 L Mean Corpuscular Hemoglobin Concent 32.8 Red Cell Distribution Width 17.8 H Platelet Count 116 L Mean Platelet Volume 10.6 H Neutrophils % Segmented Neutrophils % (Manual) 70 Band Neutrophils % (Manual) 25 H Lymphocytes % Lymphocytes % (Manual) 1 L Monocytes % Monocytes % (Manual) 3 Eosinophils % Eosinophils % (Manual) 1 Basophils % Nucleated Red Blood Cells % 0.0 Neutrophils # (Manual) 4 Band Neutrophils # 1.3 H Absolute Lymphocytes (Manual) 0.0 L Lymphocytes # Monocytes # Absolute Monocytes (Manual) 0.1 L Eosinophils # Basophils # Nucleated Red Blood Cells # Thrombocytosis 1 H Platelet Estimate DECREASED Hypochromasia 1+ Anisocytosis 1+ Microcytosis 1+ Sodium Level 131 L Potassium Level 3.4 L Chloride Level 95 L Carbon Dioxide Level 24 Anion Gap 15 Blood Urea Nitrogen 10 Creatinine 0.56 L Glucose Level 81 Calcium Level 8.2 L Lipase 514 H Medications Medications Current Medications Docusate Sodium (Colace) 100 mg Q12H PRN PO CONSTIPATION Last administered on 10:46; Admin Dose 100 MG; Start 01/09/17 at 19:30 Magnesium Hydroxide (Milk Of Mag) 30 ml DAILY PRN PO CONSTIPATION Last administered on 01/29/17 09:33; Admin Dose 30 ML; Start 01/09/17 at 19:30 Sodium Biphosphate/ Sodium Phosphate 133 ml 133 ml DAILY PRN [place] CONSTIPATION; Start 01/09/17 at 19:30 Piperacillin Sod/ Tazobactam Sod (Zosyn 3.375gm/ 100 ml (Pmx)) 100 ml @ 200 mls /hr Q6 IVPB Last administered on 02/02/17 17:51; Admin Dose 200 MLS/HR; Start 01/10/17 at 00:00 Nitroglycerin (Nitroglycerin (Sl Tab) 0.4 Mg) 1 tab Q5M PRN SL ANGINA; Start at 19:30 Miscellaneous Information (Pending Santyl Order For Wound Care) This patient aranda... PRN PRN XX WOUND CARE; Start 01/10/17 at 03:30 Ondansetron HCl 4 mg 4 mg Q6 IV Last administered on 02/02/17 17:49; Admin Dose 4 MG; Start 01/10/17 at 15:30 Acetaminophen (Ofirmev 1000mg/ 100ml Iv) 100 ml @ 400 mls/hr Q6 IVPB Last administered on 02/02/17 17:50; Admin Dose 400 MLS/HR; Start 01/10/17 at 16:30 IV Flush (NS 10 ml) 10 ml PRN PRN IV IV PROTOCOL; Start 01/10/17 at 20:30 Prednisone 10 mg 10 mg DAILY PO Last administered on 02/02/17 09:55; Admin Dose 10 MG; Start 01/15/17 at 09:00 Levofloxacin/ Dextrose 150 ml @ 100 mls/hr Q24H IVPB Last administered on 02/02 17:42; Admin Dose 100 MLS/HR; Start 01/18/17 at 16:00 Trimethoprim/ Sulfamethoxazole 25 ml/Dextrose 525 ml @ 343.333 mls/hr Q8 IVPB Last administered on 01/31/17 05:21; Admin Dose 343.333 MLS/HR; Start 01/19/17 at 13:30; Status Future Hold Hydromorphone HCl/ Dextrose (Dilaudid/D5W) 50 ml @ 2 mls/hr TITRATE IV Last administered on 02/02/17 15:52; Admin Dose 2 MLS/HR; Start 01/23/17 at 16:30 Ergocalciferol (Drisdol) 50,000 unit We@09 PO Last administered on 02/01/17 09 :44; Admin Dose 50,000 UNIT; Start 01/25/17 at 09:00 Calcium Carbonate (Oyster Shell Calcium) 1.25 gm BID PO Last administered on 09:54; Admin Dose 1.25 GM; Start 01/24/17 at 21:00 Pantoprazole (Protonix Tab) 40 mg DAILY@06 PO Last administered on 02/02/17 05 :38; Admin Dose 40 MG; Start 01/26/17 at 06:00 Hydromorphone HCl (Dilaudid) 1 mg Q2 PRN IV PAIN Last administered on 18:33; Admin Dose 1 MG; Start 01/25/17 at 21:00 Atenolol 25 mg 25 mg BID PO Last administered on 02/01/17 09:45; Admin Dose 25 MG; Start 01/30/17 at 12:00 Vancomycin HCl 1.5 gm/Sodium Chloride 250 ml @ 83.333 mls/ hr Q8H IVPB Last administered on 02/02/17 14:28; Admin Dose 83.333 MLS/HR; Start 01/31/17 at 20: 00 Sodium Chloride 1,000 ml @ 100 mls/hr Q10H IV Last administered on 02/02/17 14:00; Admin Dose 100 MLS/HR; Start 02/01/17 at 08:00 Caspofungin/ Sodium Chloride (Cancidas/NS) 250 ml @ 250 mls/hr Q24H IVPB Last administered on 02/02/17 14:28; Admin Dose 250 MLS/HR; Start 02/02/17 at 13:00 Enoxaparin Sodium (Lovenox) 30 mg DAILY SC Last administered on 02/01/17 16:47 ; Admin Dose 30 MG; Start 02/01/17 at 16:00 Filgrastim (Neupogen) 480 mcg DAILY@17 SC Last administered on 02/02/17 17:42 ; Admin Dose 480 MCG; Start 02/01/17 at 17:00 Miscellaneous Information 1 ONCE ONCE XX ; Start 02/03/17 at 03:00; Stop at 03:01 Potassium Chloride (KCl 40 MEQ/250 ML NS) 250 ml @ 62.5 mls/hr ONCE ONCE IVPB ; Start 02/02/17 at 19:00; Stop 02/02/17 at 22:59 FAUSTINO VALDIVIA MD Feb 02, 2017 20:30
--- NOTE | 2017-02-02 23:27 | CONS ---
Date/Time of Note Date/Time of Note DATE: 02/02/17 TIME: 23:27 Assessment/Plan Assessment/Plan Chief Complaint/Hosp Course Anaplastic B-cell Lymphoma pt was dx'd with lymphoma a year and half ago , it turned into an aggressive type. His last chemo was a month ago and hadn't had since due to experiencing similar presenting symptoms. record from pt's oncologist Kain Wisdom - P Left flank mass, CT-guided core needle biopsies with touch imprints: Completely necrotic tissue, insufficient for pathologic evaluation. PER PT REPORT- reportedly scheduled for change in therapy due to what appears to be lack of adequate response CT ABD/PEL/CHEST:(+) multiple areas of nodules likely lymphoma, LEUKOPENIA IN PT WITH HNL POST CHEMO AND WITH SEPTIC PICTURE MONITOR BLOOD COUNT CLOSELY POST NEUPOGEN WBC- FLUCTUATING IMPROVED ON NEUPOGEN X 2 PANCYTOPENIA POST CHEMO CONT TO MONITOR PRBC NEEDED s/p Sepsis w/worsening lactic acidosis 2/2 PNA + Left flank/hip/leg decub Resolving HCAP => CT ABD/PEL/CHEST: (+) PNA * 01/24 RESPIRATORY CULTURE Final 3+ KLEB PNEUMONIAE CARBAPENEMASE ID W-UP pancreatitis. Abd Pain with N/V: 2/2 known lymphoma - pain mgmt - Anti-emetics Hyponatremia and Hypokalemia: 2/2 vomiting - NS IVF - replete K+ as needed Presumed RAMU: likely pre-renal 2/2 vomiting - cont IVF for now Problems: Consultation Date/Type/Reason Admit Date/Time Jan 09, 2017 at 19:08 Initial Consult Date 01/10/17 Type of Consultation: [facility] Referring Provider: YAO RAHMAN 24 HR Interval Summary Free Text/Dictation ALL NOTED NO NEW EVENTS + N Exam/Review of Systems Vital Signs Vitals Vital Signs Date Time Temp Pulse Resp B/P Pulse Ox O2 Delivery O2 Flow Rate FiO2 02/02/17 21:27 98 2.0 02/02/17 20:35 94 22 Nasal Cannula 02/02/17 19:36 98.1 107/55 Intake and Output 02/01/17 02/01/17 02/02/17 15:00 23:00 07:00 Intake Total 1200 ml 2134 ml Output Total 550 ml Balance 1200 ml 1584 ml Exam GENERAL: 31 yo M obese HEENT:Unremarkable, no thrush NECK: Supple CHEST: Rise symmetrical without dyspnea on observation ABDOMEN: Soft, obese, VIKTOR drain w/dark brown liquid filling bulb EXTREMITIES: Warm, moves extremities SKIN: Tattoos Results Result Diagram: 02/02/17 0620 02/02/17 0620 Results 24 hrs Laboratory Tests Test 02/02/17 06:20 White Blood Count 5.2 # Red Blood Count 2.75 L Hemoglobin 7.9 L Hematocrit 24.1 L Mean Corpuscular Volume 87.6 Mean Corpuscular Hemoglobin 28.7 L Mean Corpuscular Hemoglobin Concent 32.8 Red Cell Distribution Width 17.8 H Platelet Count 116 L Mean Platelet Volume 10.6 H Neutrophils % Segmented Neutrophils % (Manual) 70 Band Neutrophils % (Manual) 25 H Lymphocytes % Lymphocytes % (Manual) 1 L Monocytes % Monocytes % (Manual) 3 Eosinophils % Eosinophils % (Manual) 1 Basophils % Nucleated Red Blood Cells % 0.0 Neutrophils # (Manual) 4 Band Neutrophils # 1.3 H Absolute Lymphocytes (Manual) 0.0 L Lymphocytes # Monocytes # Absolute Monocytes (Manual) 0.1 L Eosinophils # Basophils # Nucleated Red Blood Cells # Thrombocytosis 1 H Platelet Estimate DECREASED Hypochromasia 1+ Anisocytosis 1+ Microcytosis 1+ Sodium Level 131 L Potassium Level 3.4 L Chloride Level 95 L Carbon Dioxide Level 24 Anion Gap 15 Blood Urea Nitrogen 10 Creatinine 0.56 L Glucose Level 81 Calcium Level 8.2 L Lipase 514 H Medications Medications Current Medications Docusate Sodium (Colace) 100 mg Q12H PRN PO CONSTIPATION Last administered on 10:46; Admin Dose 100 MG; Start 01/09/17 at 19:30 Magnesium Hydroxide (Milk Of Mag) 30 ml DAILY PRN PO CONSTIPATION Last administered on 01/29/17 09:33; Admin Dose 30 ML; Start 01/09/17 at 19:30 Sodium Biphosphate/ Sodium Phosphate 133 ml 133 ml DAILY PRN [place] CONSTIPATION; Start 01/09/17 at 19:30 Piperacillin Sod/ Tazobactam Sod (Zosyn 3.375gm/ 100 ml (Pmx)) 100 ml @ 200 mls /hr Q6 IVPB Last administered on 02/02/17 17:51; Admin Dose 200 MLS/HR; Start 01/10/17 at 00:00 Nitroglycerin (Nitroglycerin (Sl Tab) 0.4 Mg) 1 tab Q5M PRN SL ANGINA; Start at 19:30 [facility]isc[facility] This patient aranda... PRN PRN XX WOUND CARE; Start 01/10/17 at 03:30 Ondansetron HCl 4 mg 4 mg Q6 IV Last administered on 02/02/17 17:49; Admin Dose 4 MG; Start 01/10/17 at 15:30 Acetaminophen (Ofirmev 1000mg/ 100ml Iv) 100 ml @ 400 mls/hr Q6 IVPB Last administered on 02/02/17 17:50; Admin Dose 400 MLS/HR; Start 01/10/17 at 16:30 IV Flush (NS 10 ml) 10 ml PRN PRN IV IV PROTOCOL; Start 01/10/17 at 20:30 Prednisone 10 mg 10 mg DAILY PO Last administered on 02/02/17 09:55; Admin Dose 10 MG; Start 01/15/17 at 09:00 Levofloxacin/ Dextrose 150 ml @ 100 mls/hr Q24H IVPB Last administered on 02/02 17:42; Admin Dose 100 MLS/HR; Start 01/18/17 at 16:00 Trimethoprim/ Sulfamethoxazole 25 ml/Dextrose 525 ml @ 343.333 mls/hr Q8 IVPB Last administered on 01/31/17 05:21; Admin Dose 343.333 MLS/HR; Start 01/19/17 at 13:30; Status Future Hold Hydromorphone HCl/ Dextrose (Dilaudid/D5W) 50 ml @ 2 mls/hr TITRATE IV Last administered on 02/02/17 15:52; Admin Dose 2 MLS/HR; Start 01/23/17 at 16:30 Ergocalciferol (Drisdol) 50,000 unit We@09 PO Last administered on 02/01/17 09 :44; Admin Dose 50,000 UNIT; Start 01/25/17 at 09:00 Calcium Carbonate (Oyster Shell Calcium) 1.25 gm BID PO Last administered on 09:54; Admin Dose 1.25 GM; Start 01/24/17 at 21:00 Pantoprazole (Protonix Tab) 40 mg DAILY@06 PO Last administered on 02/02/17 05 :38; Admin Dose 40 MG; Start 01/26/17 at 06:00 Hydromorphone HCl (Dilaudid) 1 mg Q2 PRN IV PAIN Last administered on 23:07; Admin Dose 1 MG; Start 01/25/17 at 21:00 Atenolol 25 mg 25 mg BID PO Last administered on 02/01/17 09:45; Admin Dose 25 MG; Start 01/30/17 at 12:00 Vancomycin HCl 1.5 gm/Sodium Chloride 250 ml @ 83.333 mls/ hr Q8H IVPB Last administered on 02/02/17 21:03; Admin Dose 83.333 MLS/HR; Start 01/31/17 at 20: 00 Sodium Chloride 1,000 ml @ 100 mls/hr Q10H IV Last administered on 02/02/17 14:00; Admin Dose 100 MLS/HR; Start 02/01/17 at 08:00 Caspofungin/ Sodium Chloride (Cancidas/NS) 250 ml @ 250 mls/hr Q24H IVPB Last administered on 02/02/17 14:28; Admin Dose 250 MLS/HR; Start 02/02/17 at 13:00 Enoxaparin Sodium (Lovenox) 30 mg DAILY SC Last administered on 02/01/17 16:47 ; Admin Dose 30 MG; Start 02/01/17 at 16:00 Filgrastim (Neupogen) 480 mcg DAILY@17 SC Last administered on 02/02/17 17:42 ; Admin Dose 480 MCG; Start 02/01/17 at 17:00 Miscellaneous Information (*Rx Drug Level Order Reminder*) 1 ONCE ONCE XX ; Start 02/03/17 at 03:00; Stop 02/03/17 at 03:01 MOIRA BIRMINGHAM MD Feb 02, 2017 23:27
[2017-02-03] VITALS (10 sets, daily range): BP systolic 97–109; BP diastolic 53–75; PULSE 80–99; RESP 19–20
[2017-02-03] MEDS: ONDANSETRON 4 MG INJ IV SCH ×4 (00:31→17:54)
[2017-02-03] MEDS: PIPER-TAZO 3.375 GM IV (PMX) 100 ML IVPB SCH ×3 (00:31→11:14)
[2017-02-03] MEDS: ACETAMINOPHEN 1000MG/100ML IV 100 ML IVPB SCH ×4 (00:31→17:55)
[2017-02-03] MEDS: HYDROmorphONE 1 MG/ML SYG IV PRN ×5 (02:15→21:28)
[2017-02-03 03:27] LABS: ABNORMAL IP MESSAGE 1; BASOPHILS % 0.3 % (0.0-2.0); HEMATOCRIT 25.9 % (42.0-52.0); HEMOGLOBIN 8.5 g/dl (14.0-18.0); LYMPHOCYTES # 0.1 10^3/ul (0.8-2.9); MEAN CORPUSCULAR HEMOGLOBIN 28.4 pg (29.0-33.0); MEAN CORPUSCULAR HGB CONC 32.8 g/dl (32.0-37.0); MEAN CORPUSCULAR VOLUME 86.6 fl (82.0-101.0); MONOCYTE # 0.2 10^3/ul (0.3-0.9); PLATELET COUNT 116 10^3/UL (140-415); POSITIVE DIFF @See below; RED BLOOD COUNT 2.99 10^6/ul (4.70-6.10); RED CELL DISTRIBUTION WIDTH 17.9 % (11.5-14.5); WHITE BLOOD COUNT 9.9 10^3/ul (4.8-10.8)
[2017-02-03 03:38] LABS: NEUTROPHILS % 95.2 % (39.0-77.0)
[2017-02-03 03:45] LABS: MAGNESIUM 1.7 mg/dl (1.7-2.5); PHOSPHORUS 2.9 mg/dl (2.5-4.9)
[2017-02-03 03:46] LABS: ALBUMIN 2.8 g/dl (3.3-4.9); ALBUMIN/GLOBULIN RATIO 0.93; BILIRUBIN,INDIRECT 0.5 mg/dl (0-1.1); BILIRUBIN,TOTAL 0.5 mg/dl (0.2-1.3); CALCIUM 8.9 mg/dl (8.4-10.2); CREATININE 0.46 mg/dl (0.61-1.24); POTASSIUM 3.6 mmol/L (3.5-5.1); TOTAL PROTEIN 5.8 g/dl (6.1-8.1)
[2017-02-03] MEDS: VANCOMYCIN 1.5 GM in SOD CHLORIDE 0.9% 250 ML IVPB SCH (04:24)
[2017-02-03] MEDS: PANTOPRAZOLE (EC) 40 MG TAB PO SCH (05:17)
[2017-02-03] MEDS: COLISTIMETHATE (25 MG/ML INHAL SYG) NEB SCH ×2 (08:00→20:44)
[2017-02-03] MEDS: CALCIUM CARBONATE 1.25 GM TAB PO SCH ×2 (08:22→21:31)
[2017-02-03] MEDS: ENOXAPARIN 30 MG/0.3 ML SYG SC SCH (08:22)
[2017-02-03] MEDS: predniSONE 20 MG TAB PO SCH (08:23)
[2017-02-03] MEDS: SOD CHLORIDE 0.9% 1,000 ML IV SCH ×3 (08:24→20:10)
[2017-02-03] MEDS: ATENOLOL 25 MG TAB PO SCH ×2 (08:24→21:00)
--- NOTE | 2017-02-03 11:06 | CONS ---
Date/Time of Note Date/Time of Note DATE: 02/03/17 TIME: 11:05 Assessment/Plan Assessment/Plan Chief Complaint/Hosp Course IMP: 1.Tachycardia- S Tach-NL Ft4. Likely driven by fevers/NL EF by echo this admit. Currently improved 2.lymphoma 3.HTN 4.anemia 5.obesity 6.Hyponatremia-improved 7.Pancreatitis-improved Recc: -Tele -serial ecg's -continue BB as tolerated only -Continue abx's and f/u cx data -IVF hydration -ongoing onc eval and treatment Problems: Consultation Date/Type/Reason Admit Date/Time Jan 09, 2017 at 19:08 Initial Consult Date 01/15/17 Type of Consultation: cardiology Reason for Consultation tachycardia Referring Provider: YAO RAHMAN Exam/Review of Systems Vital Signs Vitals Vital Signs Date Time Temp Pulse Resp B/P Pulse Ox O2 Delivery O2 Flow Rate FiO2 02/03/17 08:04 99 02/03/17 08:01 20 98 Nasal Cannula 2.0 02/03/17 03:53 97.9 103/57 Intake and Output 02/02/17 02/02/17 02/03/17 15:00 23:00 07:00 Intake Total 100 ml 1740 ml 1373 ml Output Total 400 ml 590 ml 950 ml Balance -300 ml 1150 ml 423 ml Exam Review of Systems: CONSTITUTIONAL: No fevers, chills. PULMONARY: No sob CARDIOVASCULAR: No chest pain/palpitations GASTROINTESTINAL: No nausea/vomiting. GENITOURINARY: No hematuria/dysuria. MUSCULOSKELETAL: No myagias/arthalgias. PSYCHIATRIC: The patient denies depression. NEUROLOGIC: No weakness Constitutional: alert Psych: no complaints Head: normocephalic ENMT: mucosa pink and moist Neck: jvd (8-9 cm water), supple Respiratory: clear to auscultation Cardiovascular: regular rate and rhythm Gastrointestinal: non-tender, soft Musculoskeletal: muscle tone (normal) Extremities: edema (none) Neurological: other (No focal deficits) Results Result Diagram: 02/03/175 02/03/175 Results 24 hrs Laboratory Tests Test 02/03/17 03:15 White Blood Count 9.9 # Red Blood Count 2.99 L Hemoglobin 8.5 L Hematocrit 25.9 L Mean Corpuscular Volume 86.6 Mean Corpuscular Hemoglobin 28.4 L Mean Corpuscular Hemoglobin Concent 32.8 Red Cell Distribution Width 17.9 H Platelet Count 116 L Mean Platelet Volume 10.0 Neutrophils % 95.2 H Lymphocytes % 1.0 L Monocytes % 2.0 Eosinophils % 0.0 Basophils % 0.3 Nucleated Red Blood Cells % 0.0 Neutrophils # (Manual) 9.4 H Lymphocytes # 0.1 L Monocytes # 0.2 L Eosinophils # 0.0 Basophils # 0.0 Nucleated Red Blood Cells # 0.0 Sodium Level 138 Potassium Level 3.6 Chloride Level 101 Carbon Dioxide Level 23 Anion Gap 18 H Blood Urea Nitrogen 10 Creatinine 0.46 L Glucose Level 134 # Calcium Level 8.9 Phosphorus Level 2.9 Magnesium Level 1.7 Total Bilirubin 0.5 Direct Bilirubin 0.00 Indirect Bilirubin 0.5 Aspartate Amino Transf (AST/SGOT) 57 H Alanine Aminotransferase (ALT/SGPT) 50 Alkaline Phosphatase 191 H Total Protein 5.8 L Albumin 2.8 L Globulin 3.00 Albumin/Globulin Ratio 0.93 Vancomycin Level Trough 17.4 Medications Medications Current Medications Docusate Sodium (Colace) 100 mg Q12H PRN PO CONSTIPATION Last administered on 10:46; Admin Dose 100 MG; Start 01/09/17 at 19:30 Magnesium Hydroxide (Milk Of Mag) 30 ml DAILY PRN PO CONSTIPATION Last administered on 01/29/17 09:33; Admin Dose 30 ML; Start 01/09/17 at 19:30 Sodium Biphosphate/ Sodium Phosphate 133 ml 133 ml DAILY PRN [place] CONSTIPATION; Start 01/09/17 at 19:30 Piperacillin Sod/ Tazobactam Sod (Zosyn 3.375gm/ 100 ml (Pmx)) 100 ml @ 200 mls /hr Q6 IVPB Last administered on 02/03/17 05:11; Admin Dose 200 MLS/HR; Start 01/10/17 at 00:00 Nitroglycerin (Nitroglycerin (Sl Tab) 0.4 Mg) 1 tab Q5M PRN SL ANGINA; Start at 19:30 Miscellaneous Information (Pending [facility]yl Order For Wound Care) This patient aranda... PRN PRN XX WOUND CARE; Start 01/10/17 at 03:30 Ondansetron HCl 4 mg 4 mg Q6 IV Last administered on 02/03/17 05:11; Admin Dose 4 MG; Start 01/10/17 at 15:30 Acetaminophen (Ofirmev 1000mg/ 100ml Iv) 100 ml @ 400 mls/hr Q6 IVPB Last administered on 02/03/17 05:17; Admin Dose 400 MLS/HR; Start 01/10/17 at 16:30 IV Flush (NS 10 ml) 10 ml PRN PRN IV IV PROTOCOL; Start 01/10/17 at 20:30 Prednisone 10 mg 10 mg DAILY PO Last administered on 02/03/17 08:23; Admin Dose 10 MG; Start 01/15/17 at 09:00 Levofloxacin/ Dextrose 150 ml @ 100 mls/hr Q24H IVPB Last administered on 02/02 17:42; Admin Dose 100 MLS/HR; Start 01/18/17 at 16:00 Trimethoprim/ Sulfamethoxazole 25 ml/Dextrose 525 ml @ 343.333 mls/hr Q8 IVPB Last administered on 01/31/17 05:21; Admin Dose 343.333 MLS/HR; Start 01/19/17 at 13:30; Status Future Hold Hydromorphone HCl/ Dextrose (Dilaudid/D5W) 50 ml @ 2 mls/hr TITRATE IV Last administered on 02/02/17 15:52; Admin Dose 2 MLS/HR; Start 01/23/17 at 16:30 Ergocalciferol (Drisdol) 50,000 unit We@09 PO Last administered on 02/01/17 09 :44; Admin Dose 50,000 UNIT; Start 01/25/17 at 09:00 Calcium Carbonate (Oyster Shell Calcium) 1.25 gm BID PO Last administered on 08:22; Admin Dose 1.25 GM; Start 01/24/17 at 21:00 Pantoprazole (Protonix Tab) 40 mg DAILY@06 PO Last administered on 02/03/17 05 :17; Admin Dose 40 MG; Start 01/26/17 at 06:00 Hydromorphone HCl (Dilaudid) 1 mg Q2 PRN IV PAIN Last administered on 08:25; Admin Dose 1 MG; Start 01/25/17 at 21:00 Atenolol 25 mg 25 mg BID PO Last administered on 02/03/17 08:24; Admin Dose 25 MG; Start 01/30/17 at 12:00 Sodium Chloride 1,000 ml @ 100 mls/hr Q10H IV Last administered on 02/02/17 14:00; Admin Dose 100 MLS/HR; Start 02/01/17 at 08:00 Caspofungin/ Sodium Chloride (Cancidas/NS) 250 ml @ 250 mls/hr Q24H IVPB Last administered on 02/02/17 14:28; Admin Dose 250 MLS/HR; Start 02/02/17 at 13:00 Enoxaparin Sodium (Lovenox) 30 mg DAILY SC Last administered on 02/03/17 08:22 ; Admin Dose 30 MG; Start 02/01/17 at 16:00 Filgrastim 480 mcg 480 mcg DAILY@17 SC Last administered on 02/02/17 17:42; Admin Dose 480 MCG; Start 02/01/17 at 17:00 Vancomycin HCl/ Sodium Chloride (Vancocin/NS) 250 ml @ 83.333 mls/ hr Q8H IVPB ; Start 02/03/17 at 12:00 LARRY SANTANA Feb 03, 2017 11:06
[2017-02-03] MEDS ORDERED: VANCOMYCIN 1.25 GM in SOD CHLORIDE 0.9% 250 ML IVPB SCH (12:00)
--- NOTE | 2017-02-03 13:43 | PN ---
VIC WEAVERA 02/03/17 1343: Date/Time of Note Date/Time of Note DATE: 02/03/17 TIME: 13:41 Assessment/Plan VTE Prophylaxis VTE Prophylaxis Intervention: ambulation Lines/Catheters IV Catheter Type (from Nrsg): PICC Line Central line still needed: Yes Urinary Cath still in place: No Assessment/Plan Chief Complaint/Hosp Course 1. Acute renal injury, resolving 2. Right pleural effusion with atelectasis and right lung base pneumonia, resolved. 3. Large B cell anaplastic lymphoma; status post chemo 1 month 4. Sepsis resolving 5. Electrolyte imbalance, better 6. Severe anemia 7. Morbid obesity 8. Skin wounds Problems: Subjective 24 Hr Interval Summary Eyes: no complaints Respiratory: no complaints Cardiovascular: no complaints Musculoskeletal: no complaints Exam/Review of Systems Vital Signs Vitals Vital Signs Date Time Temp Pulse Resp B/P Pulse Ox O2 Delivery O2 Flow Rate FiO2 02/03/17 12:10 92 02/03/17 12:01 98.6 19 109/56 98 02/03/17 08:01 Nasal Cannula 2.0 Intake and Output 02/02/17 02/02/17 02/03/17 15:00 23:00 07:00 Intake Total 100 ml 1740 ml 1373 ml Output Total 400 ml 590 ml 950 ml Balance -300 ml 1150 ml 423 ml Exam Constitutional: alert, oriented ENMT: nl external ears & nose Neck: supple Respiratory: clear to auscultation Cardiovascular: regular rate and rhythm Gastrointestinal: soft Extremities: other (wounds) Results Result Diagram: 02/03/17 0315 02/03/17 0315 Results 24 hrs Laboratory Tests Test 02/03/17 03:15 White Blood Count 9.9 # Red Blood Count 2.99 L Hemoglobin 8.5 L Hematocrit 25.9 L Mean Corpuscular Volume 86.6 Mean Corpuscular Hemoglobin 28.4 L Mean Corpuscular Hemoglobin Concent 32.8 Red Cell Distribution Width 17.9 H Platelet Count 116 L Mean Platelet Volume 10.0 Neutrophils % 95.2 H Lymphocytes % 1.0 L Monocytes % 2.0 Eosinophils % 0.0 Basophils % 0.3 Nucleated Red Blood Cells % 0.0 Neutrophils # (Manual) 9.4 H Lymphocytes # 0.1 L Monocytes # 0.2 L Eosinophils # 0.0 Basophils # 0.0 Nucleated Red Blood Cells # 0.0 Sodium Level 138 Potassium Level 3.6 Chloride Level 101 Carbon Dioxide Level 23 Anion Gap 18 H Blood Urea Nitrogen 10 Creatinine 0.46 L Glucose Level 134 # Calcium Level 8.9 Phosphorus Level 2.9 Magnesium Level 1.7 Total Bilirubin 0.5 Direct Bilirubin 0.00 Indirect Bilirubin 0.5 Aspartate Amino Transf (AST/SGOT) 57 H Alanine Aminotransferase (ALT/SGPT) 50 Alkaline Phosphatase 191 H Total Protein 5.8 L Albumin 2.8 L Globulin 3.00 Albumin/Globulin Ratio 0.93 Vancomycin Level Trough 17.4 Medications Medications Current Medications Docusate Sodium (Colace) 100 mg Q12H PRN PO CONSTIPATION Last administered on 10:46; Admin Dose 100 MG; Start 01/09/17 at 19:30 Magnesium Hydroxide (Milk Of Mag) 30 ml DAILY PRN PO CONSTIPATION Last administered on 01/29/17 09:33; Admin Dose 30 ML; Start 01/09/17 at 19:30 Sodium Biphosphate/ Sodium Phosphate 133 ml 133 ml DAILY PRN NE CONSTIPATION; Start 01/09/17 at 19:30 Piperacillin Sod/ Tazobactam Sod (Zosyn 3.375gm/ 100 ml (Pmx)) 100 ml @ 200 mls /hr Q6 IVPB Last administered on 02/03/17 11:14; Admin Dose 200 MLS/HR; Start 01/10/17 at 00:00 Nitroglycerin (Nitroglycerin (Sl Tab) 0.4 Mg) 1 tab Q5M PRN SL ANGINA; Start at 19:30 Miscellaneous Information [facility] This patient aranda... PRN PRN XX WOUND CARE; Start 01/10/17 at 03:30 Ondansetron HCl 4 mg 4 mg Q6 IV Last administered on 02/03/17 12:35; Admin Dose 4 MG; Start 01/10/17 at 15:30 Acetaminophen (Ofirmev 1000mg/ 100ml Iv) 100 ml @ 400 mls/hr Q6 IVPB Last administered on 02/03/17 11:13; Admin Dose 400 MLS/HR; Start 01/10/17 at 16:30 IV Flush (NS 10 ml) 10 ml PRN PRN IV IV PROTOCOL; Start 01/10/17 at 20:30 Prednisone 10 mg 10 mg DAILY PO Last administered on 02/03/17 08:23; Admin Dose 10 MG; Start 01/15/17 at 09:00 Levofloxacin/ Dextrose 150 ml @ 100 mls/hr Q24H IVPB Last administered on 02/02 17:42; Admin Dose 100 MLS/HR; Start 01/18/17 at 16:00 Trimethoprim/ Sulfamethoxazole 25 ml/Dextrose 525 ml @ 343.333 mls/hr Q8 IVPB Last administered on 01/31/17 05:21; Admin Dose 343.333 MLS/HR; Start 01/19/17 at 13:30; Status Future Hold Hydromorphone HCl/ Dextrose (Dilaudid/D5W) 50 ml @ 2 mls/hr TITRATE IV Last administered on 02/02/17 15:52; Admin Dose 2 MLS/HR; Start 01/23/17 at 16:30 Ergocalciferol (Drisdol) 50,000 unit We@09 PO Last administered on 02/01/17 09 :44; Admin Dose 50,000 UNIT; Start 01/25/17 at 09:00 Calcium Carbonate (Oyster Shell Calcium) 1.25 gm BID PO Last administered on 08:22; Admin Dose 1.25 GM; Start 01/24/17 at 21:00 Pantoprazole (Protonix Tab) 40 mg DAILY@06 PO Last administered on 02/03/17 05 :17; Admin Dose 40 MG; Start 01/26/17 at 06:00 Hydromorphone HCl (Dilaudid) 1 mg Q2 PRN IV PAIN Last administered on 12:41; Admin Dose 1 MG; Start 01/25/17 at 21:00 Atenolol 25 mg 25 mg BID PO Last administered on 02/03/17 08:24; Admin Dose 25 MG; Start 01/30/17 at 12:00 Sodium Chloride 1,000 ml @ 100 mls/hr Q10H IV Last administered on 02/02/17 14:00; Admin Dose 100 MLS/HR; Start 02/01/17 at 08:00 Caspofungin/ Sodium Chloride (Cancidas/NS) 250 ml @ 250 mls/hr Q24H IVPB Last administered on 02/02/17 14:28; Admin Dose 250 MLS/HR; Start 02/02/17 at 13:00 Enoxaparin Sodium (Lovenox) 30 mg DAILY SC Last administered on 02/03/17 08:22 ; Admin Dose 30 MG; Start 02/01/17 at 16:00 Filgrastim 480 mcg 480 mcg DAILY@17 SC Last administered on 02/02/17 17:42; Admin Dose 480 MCG; Start 02/01/17 at 17:00 Vancomycin HCl/ Sodium Chloride (Vancocin/NS) 250 ml @ 83.333 mls/ hr Q8H IVPB Last administered on 02/03/17 12:36; Admin Dose 83.333 MLS/HR; Start at 12:00 TAMARA HARTMANN MD 02/03/17 1616: Assessment/Plan Assessment/Plan Assessment/Plan C/W Abx as above and s/p cholecystomy Appreciate all consults Exam/Review of Systems Results Result Diagram: 02/03/17 0315 02/03/17 0315 MOISES WEAVER Feb 03, 2017 13:43 TAMARA HARTMANN MD Feb 03, 2017 16:16
[2017-02-03] MEDS: CASPOFUNGIN 50 MG in NS 250 ML IVPB SCH (15:02)
[2017-02-03] MEDS: LEVOFLOXACIN 750MG/D5W (PMX) 150 ML IVPB SCH (16:01)
[2017-02-03] MEDS: FILGRASTIM 480 MCG INJ SC SCH (17:55)
[2017-02-03] MEDS: COLISTIMETHATE 150 MG in SOD CHLORIDE 0.9% 100 ML IVPB SCH (20:00)
--- NOTE | 2017-02-03 20:14 | CONS ---
Date/Time of Note Date/Time of Note DATE: 02/03/17 TIME: 20:13 Assessment/Plan Assessment/Plan Chief Complaint/Hosp Course Anaplastic B-cell Lymphoma pt was dx'd with lymphoma a year and half ago , it turned into an aggressive type. His last chemo was a month ago and hadn't had since due to experiencing similar presenting symptoms. record from pt's oncologist Kain Wisdom - Kenji Left flank mass, CT-guided core needle biopsies with touch imprints: Completely necrotic tissue, insufficient for pathologic evaluation. PER PT REPORT- reportedly scheduled for change in therapy due to what appears to be lack of adequate response LEUKOPENIA IN PT WITH HNL POST CHEMO AND WITH SEPTIC PICTURE MONITOR BLOOD COUNT CLOSELY POST NEUPOGEN WBC- FLUCTUATING , WORSENED X 24 H WILL RESTART NEUPOGEN PANCYTOPENIA POST CHEMO CONT TO MONITOR PRBC NEEDED FEVER ID W-UP Sepsis 2/2 PNA - abx, IVF - f/u culture results - ID pancreatitis. Abd Pain with N/V: 2/2 known lymphoma - pain mgmt - Anti-emetics Hyponatremia and Hypokalemia: 2/2 vomiting - NS IVF - replete K+ as needed Presumed RAMU: likely pre-renal 2/2 vomiting - cont IVF for now Problems: Consultation Date/Type/Reason Admit Date/Time Jan 09, 2017 at 19:08 Initial Consult Date 01/10/17 Type of Consultation: [facility] Referring Provider: YAO RAHMAN 24 HR Interval Summary Free Text/Dictation ALL NOTED Exam/Review of Systems Vital Signs Vitals Vital Signs Date Time Temp Pulse Resp B/P Pulse Ox O2 Delivery O2 Flow Rate FiO2 02/03/17 16:12 98.5 79 19 106/75 97 02/03/17 08:01 Nasal Cannula 2.0 Intake and Output 02/02/17 02/02/17 02/03/17 15:00 23:00 07:00 Intake Total 100 ml 1740 ml 1373 ml Output Total 400 ml 590 ml 950 ml Balance -300 ml 1150 ml 423 ml Exam GENERAL: 31 yo M obese HEENT:Unremarkable, no thrush NECK: Supple CHEST: Rise symmetrical without dyspnea on observation ABDOMEN: Soft, obese, VIKTOR drain w/dark brown liquid filling bulb EXTREMITIES: Warm, moves extremities SKIN: Tattoos Results Result Diagram: 02/03/1731402/03/17314 Results 24 hrs Laboratory Tests Test 8/25/17 03:15 White Blood Count 9.9 # Red Blood Count 2.99 L Hemoglobin 8.5 L Hematocrit 25.9 L Mean Corpuscular Volume 86.6 Mean Corpuscular Hemoglobin 28.4 L Mean Corpuscular Hemoglobin Concent 32.8 Red Cell Distribution Width 17.9 H Platelet Count 116 L Mean Platelet Volume 10.0 Neutrophils % 95.2 H Lymphocytes % 1.0 L Monocytes % 2.0 Eosinophils % 0.0 Basophils % 0.3 Nucleated Red Blood Cells % 0.0 Neutrophils # (Manual) 9.4 H Lymphocytes # 0.1 L Monocytes # 0.2 L Eosinophils # 0.0 Basophils # 0.0 Nucleated Red Blood Cells # 0.0 Sodium Level 138 Potassium Level 3.6 Chloride Level 101 Carbon Dioxide Level 23 Anion Gap 18 H Blood Urea Nitrogen 10 Creatinine 0.46 L Glucose Level 134 # Calcium Level 8.9 Phosphorus Level 2.9 Magnesium Level 1.7 Total Bilirubin 0.5 Direct Bilirubin 0.00 Indirect Bilirubin 0.5 Aspartate Amino Transf (AST/SGOT) 57 H Alanine Aminotransferase (ALT/SGPT) 50 Alkaline Phosphatase 191 H Total Protein 5.8 L Albumin 2.8 L Globulin 3.00 Albumin/Globulin Ratio 0.93 Vancomycin Level Trough 17.4 Medications Medications Current Medications Docusate Sodium (Colace) 100 mg Q12H PRN PO CONSTIPATION Last administered on 10:46; Admin Dose 100 MG; Start 01/09/17 at 19:30 Magnesium Hydroxide (Milk Of Mag) 30 ml DAILY PRN PO CONSTIPATION Last administered on 01/29/17 09:33; Admin Dose 30 ML; Start 01/09/17 at 19:30 Sodium Biphosphate/ Sodium Phosphate (Fleet Enema) 133 ml DAILY PRN [place] CONSTIPATION; Start 01/09/17 at 19:30 Nitroglycerin (Nitroglycerin (Sl Tab) 0.4 Mg) 1 tab Q5M PRN SL ANGINA; Start at 19:30 Miscellaneous Information (Pending Santyl Order For Wound Care) This patient aranda... PRN PRN XX WOUND CARE; Start 01/10/17 at 03:30 Ondansetron HCl 4 mg 4 mg Q6 IV Last administered on 02/03/17 17:54; Admin Dose 4 MG; Start 01/10/17 at 15:30 Acetaminophen (Ofirmev 1000mg/ 100ml Iv) 100 ml @ 400 mls/hr Q6 IVPB Last administered on 02/03/17 17:55; Admin Dose 400 MLS/HR; Start 01/10/17 at 16:30 IV Flush (NS 10 ml) 10 ml PRN PRN IV IV PROTOCOL; Start 01/10/17 at 20:30 Prednisone 10 mg 10 mg DAILY PO Last administered on 02/03/17 08:23; Admin Dose 10 MG; Start 01/15/17 at 09:00 Trimethoprim/ Sulfamethoxazole 25 ml/Dextrose 525 ml @ 343.333 mls/hr Q8 IVPB Last administered on 01/31/17 05:21; Admin Dose 343.333 MLS/HR; Start 01/19/17 at 13:30; Status Future Hold Hydromorphone HCl/ Dextrose (Dilaudid/D5W) 50 ml @ 2 mls/hr TITRATE IV Last administered on 02/02/17 15:52; Admin Dose 2 MLS/HR; Start 01/23/17 at 16:30 Ergocalciferol (Drisdol) 50,000 unit We@09 PO Last administered on 02/01/17 09 :44; Admin Dose 50,000 UNIT; Start 01/25/17 at 09:00 Calcium Carbonate (Oyster Shell Calcium) 1.25 gm BID PO Last administered on 08:22; Admin Dose 1.25 GM; Start 01/24/17 at 21:00 Pantoprazole (Protonix Tab) 40 mg DAILY@06 PO Last administered on 02/03/17 05 :17; Admin Dose 40 MG; Start 01/26/17 at 06:00 Hydromorphone HCl (Dilaudid) 1 mg Q2 PRN IV PAIN Last administered on 17:54; Admin Dose 1 MG; Start 01/25/17 at 21:00 Atenolol 25 mg 25 mg BID PO Last administered on 02/03/17 08:24; Admin Dose 25 MG; Start 01/30/17 at 12:00 Sodium Chloride (NS) 1,000 ml @ 100 mls/hr Q10H IV Last administered on 14:00; Admin Dose 100 MLS/HR; Start 02/01/17 at 08:00 Enoxaparin Sodium (Lovenox) 30 mg DAILY SC Last administered on 02/03/17 08:22 ; Admin Dose 30 MG; Start 02/01/17 at 16:00 Filgrastim 480 mcg 480 mcg DAILY@17 SC Last administered on 02/03/17 17:55; Admin Dose 480 MCG; Start 02/01/17 at 17:00 Ampicillin 50 ml @ 100 mls/hr Q8 IVPB ; Start 02/03/17 at 22:00 Metronidazole (Flagyl 500 Mg (Pmx)) 100 ml @ 100 mls/hr Q8 IVPB ; Start at 22:00 Lactobacillus Acidophilus 1 each 1 each BID PO ; Start 02/03/17 at 21:00 Colistimethate Sodium/Sodium Chloride (Coly-Mycin/NS) 100 ml @ 200 mls/hr Q12H IVPB ; Start 02/03/17 at 18:30 MOIRA BIRMINGHAM MD Feb 03, 2017 20:14
[2017-02-03] MEDS ORDERED: COLISTIMETHATE 75 MG in SOD CHLORIDE 0.9% 100 ML IVPB SCH (21:00)
--- NOTE | 2017-02-03 21:11 | PN ---
Date/Time of Note Date/Time of Note DATE: 02/03/17 TIME: 21:09 Assessment/Plan Lines/Catheters IV Catheter Type (from Nrs): PICC Line Sierra in Place (from Nrs): No Assessment/Plan Assessment/Plan [facility] Progress Note Date of Service: 02/03/2017 Place of service: [facility] 5W tele Today's Assessment & Plan: Overall stable and appears improved after percutaneous cholecystostomy drain placement. 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 Very difficult situation with somewhat poor prognosis. Fortunately no indication for acute surgical intervention. No evidence of infected necrosis that would require drain placement or surgical necrosectomy of the pancreas. Would be important to try and avoid major interventions in order to not delay life-prolonging chemotherapeutic intervention. HIDA scan positive reflecting potential for chronic or acute on chronic cholecystitis. Even without the HIDA scan, the patient has enough indication for cholecystectomy at some point in the near future to hopefully try and prevent the same issue happening in the future. With a positive HIDA scan, we have more of an urgency. Patient is sufficiently far enough from his last dose of chemotherapy that the operation can be done with reasonable risk and with adequate expectation of uncomplicated healing. The only issue would be the amount of time that the patient will need to heal from surgery and whether will have any complications or not afterwards and might delay receiving further chemotherapy down the line. One advantage of doing an operation for the gallbladder is that we could potentially set this up with intraoperative ultrasound-guided biopsy of the lesion in the right lobe of liver, which would give us more tissue evaluation of the state of the disease and for any further markers that may need to be looked at for adjustment of his chemotherapy regimen. The option of percutaneous cholecystostomy tube placement is also on the table, although most oncologists would rather not give chemotherapy with a cholecystostomy drain in place. With above assessment, I've recommended the followin. Continue aggressive medical management 2. Cont full liquid diet and advance slowly 3. Follow GIs recommendations 4. If it would make a difference in management, may consider percutaneous biopsy of segment 6 area of abnormality in the liver 5. Multidisciplinary tumor board presentation and discussions 6. Consideration for clinical trials once improved medically 7. LFT's, amylase and lipase checks tomorrow with labs 8. Will likely benefit from aggressive bowel regimen (some of the pain likely from constipation) 9. Percutaneous cholecystostomy drain care teachings to patient and family Thank you very much for having me involved in the care of this very pleasant patient and wonderful family. If you have any questions, please feel free to contact me at [phone]. Nature of presenting problem: High severity Please note that, given the extensive number of diagnoses or management options , the extensive amount and/or complexity of data needed to be reviewed, and high risk of complications and/or morbidity or mortality, this qualifies as high complexity type of decision-making. Disclaimer: Inadvertent spelling and grammatical errors are likely due to EHR/ dictation software use and do not reflect on the quality of delivered patient care. Also, please note that the electronic time recorded on this node does not necessarily reflect the actual time of the visit. 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 HIDA scan positive 01/28/2017. Status post percutaneous cholecystostomy drain placement 02/02/2017. Status post CT-guided left flank subcutaneous nodule biopsy [facility] 01/12/2017. Comorbidities: 1. BMI 40.7 2. Small right pleural effusion with atelectasis and right lung base pneumonia. 3. Large B cell anaplastic lymphoma; status post chemo 1 month prior to presentation 4. Sepsis 5. Hyponatremia 6. Hypokalemia 7. Acute renal injury 8. Status post percutaneous cholecystostomy drain placement 02/02/2017 Subjective: No major events or complaints; reported feeling better after drain placement and no significant abdominal pain and under control with medications; no significant reported nausea or vomiting and no major diarrhea; no sob or cp; + flatus; + BM; minimal to no activity. Objective: Vitals: See below I's & O's: See below Exam: GENERAL: On exam, the patient was lying in bed and appeared to be comfortable and in no acute distress. Less diaphoretic. ABDOMEN: Soft, minimal to no tenderness and nondistended. There are no peritoneal signs or guarding. Perc GB drain with thick green bilious output. SKIN: Skin appears to be pink and feels warm to touch. NEUROLOGIC: Patient is awake, alert, and follows commands appropriately. Labs: See below Exam/Review of Systems Vital Signs Vitals Vital Signs Date Time Temp Pulse Resp B/P Pulse Ox O2 Delivery O2 Flow Rate FiO2 02/03/17 21:00 81 02/03/17 20:45 97 2.0 02/03/17 20:45 20 Nasal Cannula 02/03/17 20:00 97.4 97/53 Intake and Output 02/02/17 02/02/17 02/03/17 15:00 23:00 07:00 Intake Total 100 ml 1740 ml 1373 ml Output Total 400 ml 590 ml 950 ml Balance -300 ml 1150 ml 423 ml Results Result Diagram: 02/03/17 0315 02/03/17 0315 LENKA HERNANDEZ M.D. Feb 03, 2017 21:11
[2017-02-03] MEDS: AMPICILLIN 1 GM/NS (PMX) 50 ML IVPB SCH (21:30)
[2017-02-03] MEDS: metroNIDAZOLE 500 MG/NS (PMX) 100 ML IVPB SCH (21:30)
[2017-02-03] MEDS: L ACIDOPHIL/B LACTIS/B LONGUM CAPSULE PO SCH (21:31)
[2017-02-04] VITALS (10 sets, daily range): BP systolic 104–127; BP diastolic 58–62; PULSE 69–95; RESP 18–20
--- NOTE | 2017-02-04 04:25 | PN ---
DATE: 02/03/2017 SUBJECTIVE DATA: No acute changes overnight. The patient is status post cholecystostomy tube placement yesterday. No fevers. Temperature 98.6, pulse 79, respirations 19, blood pressure 109/56, saturation 98 on 2 L. LABORATORY AND DIAGNOSTIC DATA: WBC 9.9, H and H 8.5, and 25.9, platelets 116, neutrophils 95.2, BUN 10, creatinine 0.46. Microbiology, blood culture, urine culture, since January 31 remain negative. Cholecystitic fluid culture preliminary negative. Wound culture repeated on January 31 growing multiple multidrug resistant bacteria including Pseudomonas aeruginosa, Klebsiella pneumonia, Enterococcus species. Indwelling cholecystostomy tube and PICC line. Antimicrobials. The patient is on IV vanco, IV Cancidas and Zosyn, also on Levaquin. PHYSICAL EXAMINATION: This is a morbidly obese, and chronically ill-appearing, middle-aged man, who is in no distress. HEENT: Head atraumatic, normocephalic. Sclerae anicteric. Buccal mucosa dry. NECK: Supple. CHEST: Rise symmetrical. Breath sounds diminished at the bases. HEART: S1, S2. ABDOMEN: Soft, bowel sounds present. EXTREMITIES: Without cyanosis. SKIN: With multiple necrotic draining wounds over the body. ASSESSMENT: 1. Resolving sepsis. 2. Cholecystitis, status post cholecystostomy tube placement on February 02, 2017. 3. Multiple chronic necrotic wounds with wound cultures growing multiple multidrug resistant organism. 4. Resolving neutropenia, patient is on Neupogen. 5. Status post pancreatitis. 6. B-cell lymphoma. 7. Morbid obesity. PLAN: The patient remains stable. We are going to start him on colistin to cover multidrug resistant organisms that he is growing from his wounds. Discontinue Vanco and meropenem. Start IV ampicillin for enterococcal coverage. Add empiric Flagyl to cover anaerobe. We will discuss with surgery if the patient needs wound debridement, continue local wound care as per primary team and consultants. Dictated By: Felicia Hdz NP /paulette/marycarmen /Document#: [id number] DREW
[2017-02-04] MEDS: HYDROmorphONE 50 MG in DEXTROSE 5% 45 ML IV SCH (04:30)
[2017-02-04] MEDS: ACETAMINOPHEN 1000MG/100ML IV 100 ML IVPB SCH ×5 (06:00→23:44)
[2017-02-04] MEDS: ONDANSETRON 4 MG INJ IV SCH ×5 (06:00→23:59)
[2017-02-04] MEDS: SOD CHLORIDE 0.9% 1,000 ML IV SCH ×2 (06:00→13:21)
[2017-02-04] MEDS: PANTOPRAZOLE (EC) 40 MG TAB PO SCH (06:00)
[2017-02-04] MEDS: metroNIDAZOLE 500 MG/NS (PMX) 100 ML IVPB SCH ×3 (06:00→21:14)
[2017-02-04] MEDS: AMPICILLIN 1 GM/NS (PMX) 50 ML IVPB SCH ×3 (06:00→21:15)
[2017-02-04 07:18] LABS: CALCIUM 8.3 mg/dl (8.4-10.2); CREATININE 0.42 mg/dl (0.61-1.24)
[2017-02-04 07:32] LABS: POTASSIUM 3.2 mmol/L (3.5-5.1)
[2017-02-04] MEDS: COLISTIMETHATE (25 MG/ML INHAL SYG) NEB SCH ×2 (08:11→20:35)
[2017-02-04] MEDS: ATENOLOL 25 MG TAB PO SCH ×2 (09:00→21:15)
[2017-02-04] MEDS: COLISTIMETHATE 150 MG in SOD CHLORIDE 0.9% 100 ML IVPB SCH ×2 (09:39→20:00)
[2017-02-04] MEDS: predniSONE 20 MG TAB PO SCH (09:39)
[2017-02-04] MEDS: HYDROmorphONE 1 MG/ML SYG IV PRN ×4 (09:39→23:44)
[2017-02-04] MEDS: CALCIUM CARBONATE 1.25 GM TAB PO SCH ×2 (09:39→21:15)
[2017-02-04] MEDS: ENOXAPARIN 30 MG/0.3 ML SYG SC SCH (09:41)
[2017-02-04] MEDS: L ACIDOPHIL/B LACTIS/B LONGUM CAPSULE PO SCH ×2 (10:27→21:15)
--- NOTE | 2017-02-04 11:57 | CONS ---
Date/Time of Note Date/Time of Note DATE: 02/04/17 TIME: 11:38 Assessment/Plan Assessment/Plan Chief Complaint/Hosp Course ID PROGRESS NOTE CURRENT ABX=> Vanco IV #5+ Colistin IV #2 + Flagyl IV + Cancidas s/p Zosyn + Levaquin IV + Bactrim IV s/p Colistin INH Vanco IV #8 -> DC 8/10 Bactrim po (RX per his HemeOnc)-> dc 8/6 24H INTERVAL SUMMARY * A/A/O => overall feeling much better, NO FEVERS, still has J/P cholecystostomy tube w/dark brownish output * Family present, no new issues reported 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 * Presented w/Rx Bactrim 1tab daily (Neutropenic PCP prophy per HemeOn) * CT ABD/PEL/CHEST:(+) multiple areas of nodules likely lymphoma, 2 s/p Sepsis w/worsening lactic acidosis 2/2 PNA + Left flank/hip/leg decub = > RESOLVED 3. Resolving HCAP => CT ABD/PEL/CHEST: (+) PNA=> RESOLVING * 01/24 RESPIRATORY CULTURE Final 3+ KLEB PNEUMONIAE CARBAPENEMASE 4. Acute Cholecystitis w/ pancreatitis -> No evidence of necrosis on CT => RESOLVING 5. Presumed RAMU: likely pre-renal 2/2 vomiting 6. s/p Enterococcal UTI -> Low colony count 7. Decubs: * left flank /BACK 01/22 WOUND CULTURE Final * Organism 1 PSEUDOMONAS AERUGINOSA * Organism 2 KLEB PNEUMONIAE CARBAPENEMASE * Organism 3 ENTEROCOCCUS SPECIES * LLEXT wound stage III * 01/12/17 WOUND CULTURE * Organism 1 CITROBACTER FREUNDI * Organism 2 ENTEROCOCCUS SPECIES * Organism 3 CORYNEBACTERIUM SPECIES * Organism 4 STENOTROPHOMONAS MALTOPHILIA INVASIVES: RUEXT PICC ABX ALLERGY: EGG/MILK CURRENT ABX=> Vanco IV #5+ Colistin IV #2 + Flagyl IV + Cancidas s/p Zosyn + Levaquin IV + Bactrim IV s/p Colistin INH Vanco IV #8 -> DC / Bactrim po (RX per his HemeOnc)-> dc 01/15 ID PLAN 1. Continue ABX for resolving MDRO HCAP + wounds => ABX adjusted recently 2. Watch renal Fx on Vanco + Colistin IV . . Problems: Consultation Date/Type/Reason Admit Date/Time Jan 09, 2017 at 19:08 Initial Consult Date 01/10/17 Type of Consultation: ID Referring Provider: YAO RAHMAN Exam/Review of Systems Vital Signs Vitals Vital Signs Date Time Temp Pulse Resp B/P Pulse Ox O2 Delivery O2 Flow Rate FiO2 02/04/17 11:02 97.6 91 18 105/60 96 02/04/17 08:26 Nasal Cannula 2.0 Intake and Output 02/03/17 02/03/17 02/04/17 15:00 23:00 07:00 Intake Total 200 ml 1450 ml 900 ml Output Total 850 ml 1200 ml Balance 200 ml 600 ml -300 ml Results Result Diagram: 02/03/17 0315 02/04/17 0518 Results 24 hrs Laboratory Tests Test 02/04/17 05:18 Sodium Level 136 Potassium Level 3.2 L Chloride Level 99 Carbon Dioxide Level 24 Anion Gap 12 Blood Urea Nitrogen 11 Creatinine 0.42 L Glucose Level 100 Calcium Level 8.3 L Medications Medications Current Medications Docusate Sodium (Colace) 100 mg Q12H PRN PO CONSTIPATION Last administered on 10:46; Admin Dose 100 MG; Start 01/09/17 at 19:30 Magnesium Hydroxide (Milk Of Mag) 30 ml DAILY PRN PO CONSTIPATION Last administered on 01/29/17 09:33; Admin Dose 30 ML; Start 01/09/17 at 19:30 Sodium Biphosphate/ Sodium Phosphate (Fleet Enema) 133 ml DAILY PRN [place] CONSTIPATION; Start 01/09/17 at 19:30 Nitroglycerin (Nitroglycerin (Sl Tab) 0.4 Mg) 1 tab Q5M PRN SL ANGINA; Start at 19:30 Miscellaneous Information [facility] This patient aranda... PRN PRN XX WOUND CARE; Start 01/10/17 at 03:30 Ondansetron HCl 4 mg 4 mg Q6 IV Last administered on 02/03/17 17:54; Admin Dose 4 MG; Start 01/10/17 at 15:30 Acetaminophen (Ofirmev 1000mg/ 100ml Iv) 100 ml @ 400 mls/hr Q6 IVPB Last administered on 02/04/17 06:00; Admin Dose 400 MLS/HR; Start 01/10/17 at 16:30 IV Flush (NS 10 ml) 10 ml PRN PRN IV IV PROTOCOL; Start 01/10/17 at 20:30 Prednisone 10 mg 10 mg DAILY PO Last administered on 02/04/17 09:39; Admin Dose 10 MG; Start 01/15/17 at 09:00 Trimethoprim/ Sulfamethoxazole 25 ml/Dextrose 525 ml @ 343.333 mls/hr Q8 IVPB Last administered on 01/31/17 05:21; Admin Dose 343.333 MLS/HR; Start 01/19/17 at 13:30; Status Future Hold Hydromorphone HCl/ Dextrose (Dilaudid/D5W) 50 ml @ 2 mls/hr TITRATE IV Last administered on 02/02/17 15:52; Admin Dose 2 MLS/HR; Start 01/23/17 at 16:30 Ergocalciferol (Drisdol) 50,000 unit We@09 PO Last administered on 02/01/17 09 :44; Admin Dose 50,000 UNIT; Start 01/25/17 at 09:00 Calcium Carbonate (Oyster Shell Calcium) 1.25 gm BID PO Last administered on 09:39; Admin Dose 1.25 GM; Start 01/24/17 at 21:00 Pantoprazole (Protonix Tab) 40 mg DAILY@06 PO Last administered on 02/04/17 06 :00; Admin Dose 40 MG; Start 01/26/17 at 06:00 Hydromorphone HCl (Dilaudid) 1 mg Q2 PRN IV PAIN Last administered on 09:39; Admin Dose 1 MG; Start 01/25/17 at 21:00 Atenolol 25 mg 25 mg BID PO Last administered on 02/03/17 08:24; Admin Dose 25 MG; Start 01/30/17 at 12:00 Sodium Chloride (NS) 1,000 ml @ 100 mls/hr Q10H IV Last administered on 20:10; Admin Dose 100 MLS/HR; Start 02/01/17 at 08:00 Enoxaparin Sodium (Lovenox) 30 mg DAILY SC Last administered on 02/04/17 09:41 ; Admin Dose 30 MG; Start 02/01/17 at 16:00 Filgrastim 480 mcg 480 mcg DAILY@17 SC Last administered on 02/03/17 17:55; Admin Dose 480 MCG; Start 02/01/17 at 17:00 Ampicillin 50 ml @ 100 mls/hr Q8 IVPB Last administered on 02/04/17 06:00; Admin Dose 100 MLS/HR; Start 02/03/17 at 22:00 Metronidazole (Flagyl 500 Mg (Pmx)) 100 ml @ 100 mls/hr Q8 IVPB Last administered on 02/04/17 06:00; Admin Dose 100 MLS/HR; Start 02/03/17 at 22:00 Lactobacillus Acidophilus 1 each 1 each BID PO Last administered on 02/04/17 10:27; Admin Dose 1 EACH; Start 02/03/17 at 21:00 Colistimethate Sodium/Sodium Chloride (Coly-Mycin/NS) 100 ml @ 200 mls/hr Q12 IVPB ; Start 02/04/17 at 21:00 AARON BELLAMY NP Feb 04, 2017 11:48
--- NOTE | 2017-02-04 12:15 | CONS ---
Date/Time of Note Date/Time of Note DATE: 02/04/17 TIME: 12:14 Assessment/Plan Assessment/Plan Additional Assessment/Plan 1.Tachycardia- S Tach-NL Ft4. Likely driven by fevers/NL EF by echo this admit. Currently improved - better now 2.lymphoma - on therapy per oncology team 3.HTN - well rx 4.anemia- H/h stale 5.obesity 6.Hyponatremia-improved - better now 7.Pancreatitis-improved Consultation Date/Type/Reason Admit Date/Time Jan 09, 2017 at 19:08 Initial Consult Date 01/15/17 Type of Consultation: ID Referring Provider: YAO RAHMAN 24 HR Interval Summary Free Text/Dictation NO acute events - overall improved ROS: No fever, no chills, no nausea, no vomiting, no diarrhea/constipation No recent weight changes No chest pain, no PND, no orthopnea No dizziness, blurred vision No thirst, no heat or cold intolerance Exam/Review of Systems Vital Signs Vitals Vital Signs Date Time Temp Pulse Resp B/P Pulse Ox O2 Delivery O2 Flow Rate FiO2 02/04/17 12:09 88 02/04/17 11:02 97.6 18 105/60 96 02/04/17 08:26 Nasal Cannula 2.0 Intake and Output 02/03/17 02/03/17 02/04/17 15:00 23:00 07:00 Intake Total 200 ml 1450 ml 900 ml Output Total 850 ml 1200 ml Balance 200 ml 600 ml -300 ml Exam General: WN/WD/NAD, AOx 3 HEENT: Unicetric/atraumatic/EOMI (follows commands) NECK: JVD elevated, no thyromegaly Lymph: no lymphadenopathy HEART: regular with no S3, II/ systolic murmur at apex LUNGS: Coarse sounds ABD: soft, NT, ND, +BS : Intact Neuro: non focal SKIN: chronic changes EXT: trace edema Results Result Diagram: 02/03/17 0315 02/04/17 0518 Results 24 hrs Laboratory Tests Test 02/04/17 05:18 Sodium Level 136 Potassium Level 3.2 L Chloride Level 99 Carbon Dioxide Level 24 Anion Gap 12 Blood Urea Nitrogen 11 Creatinine 0.42 L Glucose Level 100 Calcium Level 8.3 L Medications Medications Current Medications Docusate Sodium (Colace) 100 mg Q12H PRN PO CONSTIPATION Last administered on 10:46; Admin Dose 100 MG; Start 01/09/17 at 19:30 Magnesium Hydroxide (Milk Of Mag) 30 ml DAILY PRN PO CONSTIPATION Last administered on 01/29/17 09:33; Admin Dose 30 ML; Start 01/09/17 at 19:30 Sodium Biphosphate/ Sodium Phosphate (Fleet Enema) 133 ml DAILY PRN [place] CONSTIPATION; Start 01/09/17 at 19:30 Nitroglycerin (Nitroglycerin (Sl Tab) 0.4 Mg) 1 tab Q5M PRN SL ANGINA; Start at 19:30 Miscellaneous Information (Pending [facility] Order For Wound Care) This patient aranda... PRN PRN XX WOUND CARE; Start 01/10/17 at 03:30 Ondansetron HCl 4 mg 4 mg Q6 IV Last administered on 02/04/17 11:56; Admin Dose 4 MG; Start 01/10/17 at 15:30 Acetaminophen (Ofirmev 1000mg/ 100ml Iv) 100 ml @ 400 mls/hr Q6 IVPB Last administered on 02/04/17 11:56; Admin Dose 400 MLS/HR; Start 01/10/17 at 16:30 IV Flush (NS 10 ml) 10 ml PRN PRN IV IV PROTOCOL; Start 01/10/17 at 20:30 Prednisone 10 mg 10 mg DAILY PO Last administered on 02/04/17 09:39; Admin Dose 10 MG; Start 01/15/17 at 09:00 Trimethoprim/ Sulfamethoxazole 25 ml/Dextrose 525 ml @ 343.333 mls/hr Q8 IVPB Last administered on 01/31/17 05:21; Admin Dose 343.333 MLS/HR; Start 01/19/17 at 13:30; Status Future Hold Hydromorphone HCl/ Dextrose (Dilaudid/D5W) 50 ml @ 2 mls/hr TITRATE IV Last administered on 02/02/17 15:52; Admin Dose 2 MLS/HR; Start 01/23/17 at 16:30 Ergocalciferol (Drisdol) 50,000 unit We@09 PO Last administered on 02/01/17 09 :44; Admin Dose 50,000 UNIT; Start 01/25/17 at 09:00 Calcium Carbonate (Oyster Shell Calcium) 1.25 gm BID PO Last administered on 09:39; Admin Dose 1.25 GM; Start 01/24/17 at 21:00 Pantoprazole (Protonix Tab) 40 mg DAILY@06 PO Last administered on 02/04/17 06 :00; Admin Dose 40 MG; Start 01/26/17 at 06:00 Hydromorphone HCl (Dilaudid) 1 mg Q2 PRN IV PAIN Last administered on 09:39; Admin Dose 1 MG; Start 01/25/17 at 21:00 Atenolol 25 mg 25 mg BID PO Last administered on 02/03/17 08:24; Admin Dose 25 MG; Start 01/30/17 at 12:00 Sodium Chloride (NS) 1,000 ml @ 100 mls/hr Q10H IV Last administered on 20:10; Admin Dose 100 MLS/HR; Start 02/01/17 at 08:00 Enoxaparin Sodium (Lovenox) 30 mg DAILY SC Last administered on 02/04/17 09:41 ; Admin Dose 30 MG; Start 02/01/17 at 16:00 Filgrastim 480 mcg 480 mcg DAILY@17 SC Last administered on 02/03/17 17:55; Admin Dose 480 MCG; Start 02/01/17 at 17:00 Ampicillin 50 ml @ 100 mls/hr Q8 IVPB Last administered on 02/04/17 06:00; Admin Dose 100 MLS/HR; Start 02/03/17 at 22:00 Metronidazole (Flagyl 500 Mg (Pmx)) 100 ml @ 100 mls/hr Q8 IVPB Last administered on 02/04/17 06:00; Admin Dose 100 MLS/HR; Start 02/03/17 at 22:00 Lactobacillus Acidophilus 1 each 1 each BID PO Last administered on 02/04/17 10:27; Admin Dose 1 EACH; Start 02/03/17 at 21:00 Colistimethate Sodium/Sodium Chloride (Coly-Mycin/NS) 100 ml @ 200 mls/hr Q12 IVPB ; Start 02/04/17 at 21:00 VIOLET BLUM MD Feb 04, 2017 12:15
--- NOTE | 2017-02-04 12:23 | CONS ---
Date/Time of Note Date/Time of Note DATE: 02/04/17 TIME: 12:21 Assessment/Plan Assessment/Plan Chief Complaint/Hosp Course Anaplastic B-cell Lymphoma pt was dx'd with lymphoma a year and half ago , it turned into an aggressive type. His last chemo was a month ago and hadn't had since due to experiencing similar presenting symptoms. record from pt's oncologist Kain Wisdom - P Left flank mass, CT-guided core needle biopsies with touch imprints: Completely necrotic tissue, insufficient for pathologic evaluation. PER PT REPORT- reportedly scheduled for change in therapy due to what appears to be lack of adequate response CT ABD/PEL/CHEST:(+) multiple areas of nodules likely lymphoma, LEUKOPENIA IN PT WITH HNL POST CHEMO AND WITH SEPTIC PICTURE MONITOR BLOOD COUNT CLOSELY POST NEUPOGEN WBC- FLUCTUATING IMPROVED ON NEUPOGEN X 2 PANCYTOPENIA POST CHEMO CONT TO MONITOR PRBC NEEDED s/p Sepsis w/worsening lactic acidosis 2/2 PNA + Left flank/hip/leg decub Resolving HCAP => CT ABD/PEL/CHEST: (+) PNA * 01/24 RESPIRATORY CULTURE Final 3+ KLEB PNEUMONIAE CARBAPENEMASE ID W-UP pancreatitis. Abd Pain with N/V: 2/2 known lymphoma - pain mgmt - Anti-emetics Hyponatremia and Hypokalemia: 2/2 vomiting - NS IVF - replete K+ as needed Presumed RAMU: likely pre-renal 2/2 vomiting - cont IVF for now Problems: Consultation Date/Type/Reason Admit Date/Time Jan 09, 2017 at 19:08 Initial Consult Date 01/10/17 Type of Consultation: [facility] Referring Provider: YAO RAHMAN 24 HR Interval Summary Free Text/Dictation ALL NOTED WBC- IMPROVED ON NEUPOGEN Exam/Review of Systems Vital Signs Vitals Vital Signs Date Time Temp Pulse Resp B/P Pulse Ox O2 Delivery O2 Flow Rate FiO2 02/04/17 12:09 88 02/04/17 11:02 97.6 18 105/60 96 02/04/17 08:26 Nasal Cannula 2.0 Intake and Output 02/03/17 02/03/17 02/04/17 15:00 23:00 07:00 Intake Total 200 ml 1450 ml 900 ml Output Total 850 ml 1200 ml Balance 200 ml 600 ml -300 ml Exam GENERAL: 31 yo M obese HEENT:Unremarkable, no thrush NECK: Supple CHEST: Rise symmetrical without dyspnea on observation ABDOMEN: Soft, obese, VIKTOR drain w/dark brown liquid filling bulb EXTREMITIES: Warm, moves extremities SKIN: Tattoos Results Result Diagram: 02/03/17 0315 02/04/17 0518 Results 24 hrs Laboratory Tests Test 02/04/17 05:18 Sodium Level 136 Potassium Level 3.2 L Chloride Level 99 Carbon Dioxide Level 24 Anion Gap 12 Blood Urea Nitrogen 11 Creatinine 0.42 L Glucose Level 100 Calcium Level 8.3 L Medications Medications Current Medications Docusate Sodium (Colace) 100 mg Q12H PRN PO CONSTIPATION Last administered on 10:46; Admin Dose 100 MG; Start 01/09/17 at 19:30 Magnesium Hydroxide (Milk Of Mag) 30 ml DAILY PRN PO CONSTIPATION Last administered on 01/29/17 09:33; Admin Dose 30 ML; Start 01/09/17 at 19:30 Sodium Biphosphate/ Sodium Phosphate (Fleet Enema) 133 ml DAILY PRN [place] CONSTIPATION; Start 01/09/17 at 19:30 Nitroglycerin (Nitroglycerin (Sl Tab) 0.4 Mg) 1 tab Q5M PRN SL ANGINA; Start at 19:30 Miscellaneous Information (Pending [facility] Order For Wound Care) This patient aranda... PRN PRN XX WOUND CARE; Start 01/10/17 at 03:30 Ondansetron HCl 4 mg 4 mg Q6 IV Last administered on 02/04/17 11:56; Admin Dose 4 MG; Start 01/10/17 at 15:30 Acetaminophen (Ofirmev 1000mg/ 100ml Iv) 100 ml @ 400 mls/hr Q6 IVPB Last administered on 02/04/17 11:56; Admin Dose 400 MLS/HR; Start 01/10/17 at 16:30 IV Flush (NS 10 ml) 10 ml PRN PRN IV IV PROTOCOL; Start 01/10/17 at 20:30 Prednisone 10 mg 10 mg DAILY PO Last administered on 02/04/17 09:39; Admin Dose 10 MG; Start 01/15/17 at 09:00 Trimethoprim/ Sulfamethoxazole 25 ml/Dextrose 525 ml @ 343.333 mls/hr Q8 IVPB Last administered on 01/31/17 05:21; Admin Dose 343.333 MLS/HR; Start 01/19/17 at 13:30; Status Future Hold Hydromorphone HCl/ Dextrose (Dilaudid/D5W) 50 ml @ 2 mls/hr TITRATE IV Last administered on 02/02/17 15:52; Admin Dose 2 MLS/HR; Start 01/23/17 at 16:30 Ergocalciferol (Drisdol) 50,000 unit We@09 PO Last administered on 02/01/17 09 :44; Admin Dose 50,000 UNIT; Start 01/25/17 at 09:00 Calcium Carbonate (Oyster Shell Calcium) 1.25 gm BID PO Last administered on 09:39; Admin Dose 1.25 GM; Start 01/24/17 at 21:00 Pantoprazole (Protonix Tab) 40 mg DAILY@06 PO Last administered on 02/04/17 06 :00; Admin Dose 40 MG; Start 01/26/17 at 06:00 Hydromorphone HCl (Dilaudid) 1 mg Q2 PRN IV PAIN Last administered on 09:39; Admin Dose 1 MG; Start 01/25/17 at 21:00 Atenolol 25 mg 25 mg BID PO Last administered on 02/03/17 08:24; Admin Dose 25 MG; Start 01/30/17 at 12:00 Sodium Chloride (NS) 1,000 ml @ 100 mls/hr Q10H IV Last administered on 20:10; Admin Dose 100 MLS/HR; Start 02/01/17 at 08:00 Enoxaparin Sodium (Lovenox) 30 mg DAILY SC Last administered on 02/04/17 09:41 ; Admin Dose 30 MG; Start 02/01/17 at 16:00 Filgrastim 480 mcg 480 mcg DAILY@17 SC Last administered on 02/03/17 17:55; Admin Dose 480 MCG; Start 02/01/17 at 17:00 Ampicillin 50 ml @ 100 mls/hr Q8 IVPB Last administered on 02/04/17 06:00; Admin Dose 100 MLS/HR; Start 02/03/17 at 22:00 Metronidazole (Flagyl 500 Mg (Pmx)) 100 ml @ 100 mls/hr Q8 IVPB Last administered on 02/04/17 06:00; Admin Dose 100 MLS/HR; Start 02/03/17 at 22:00 Lactobacillus Acidophilus 1 each 1 each BID PO Last administered on 02/04/17 10:27; Admin Dose 1 EACH; Start 02/03/17 at 21:00 Colistimethate Sodium/Sodium Chloride (Coly-Mycin/NS) 100 ml @ 200 mls/hr Q12 IVPB ; Start 02/04/17 at 21:00 MOIRA BIRMINGHAM MD Feb 04, 2017 12:22
--- NOTE | 2017-02-04 13:58 | PN ---
Date/Time of Note Date/Time of Note DATE: 02/04/17 TIME: 13:56 Assessment/Plan VTE Prophylaxis VTE Prophylaxis Intervention: ambulation Lines/Catheters IV Catheter Type (from Nrs): PICC Line Central line still needed: Yes Urinary Cath still in place: No Assessment/Plan Chief Complaint/Hosp Course 1. Acute renal injury, resolving 2. Right pleural effusion with atelectasis and right lung base pneumonia, resolved. 3. Large B cell anaplastic lymphoma; status post chemo 1 month 4. Sepsis resolving 5. Electrolyte imbalance, better 6. Severe anemia 7. Morbid obesity 8. Skin wounds Problems: Assessment/Plan 1. continue isolation 2. continue wound care Subjective 24 Hr Interval Summary Subjective hx not possible: pt non-verbal Constitutional: improved Gastrointestinal: no complaints Genitourinary: no complaints Additional Comments skin wounds Exam/Review of Systems Vital Signs Vitals Vital Signs Date Time Temp Pulse Resp B/P Pulse Ox O2 Delivery O2 Flow Rate FiO2 02/04/17 13:34 2.0 02/04/17 12:09 88 02/04/17 11:02 97.6 18 105/60 96 02/04/17 08:26 Nasal Cannula Intake and Output 02/03/17 02/03/17 02/04/17 14:59 22:59 06:59 Intake Total 200 ml 1450 ml 900 ml Output Total 850 ml 1200 ml Balance 200 ml 600 ml -300 ml Exam Constitutional: alert, oriented Respiratory: clear to auscultation Cardiovascular: regular rate and rhythm Genitourinary - Male: nl penis Extremities: other (with numerous wounds) Results Result Diagram: 02/03/17 0315 02/04/17 0518 Results 24 hrs Laboratory Tests Test 02/04/17 05:18 Sodium Level 136 Potassium Level 3.2 L Chloride Level 99 Carbon Dioxide Level 24 Anion Gap 12 Blood Urea Nitrogen 11 Creatinine 0.42 L Glucose Level 100 Calcium Level 8.3 L Medications Medications Current Medications Docusate Sodium (Colace) 100 mg Q12H PRN PO CONSTIPATION Last administered on 10:46; Admin Dose 100 MG; Start 01/09/17 at 19:30 Magnesium Hydroxide (Milk Of Mag) 30 ml DAILY PRN PO CONSTIPATION Last administered on 01/29/17 09:33; Admin Dose 30 ML; Start 01/09/17 at 19:30 Sodium Biphosphate/ Sodium Phosphate (Fleet Enema) 133 ml DAILY PRN [place] CONSTIPATION; Start 01/09/17 at 19:30 Nitroglycerin (Nitroglycerin (Sl Tab) 0.4 Mg) 1 tab Q5M PRN SL ANGINA; Start at 19:30 Miscellaneous Information (Pending [facility] Order For Wound Care) This patient aranda... PRN PRN XX WOUND CARE; Start 01/10/17 at 03:30 Ondansetron HCl 4 mg 4 mg Q6 IV Last administered on 02/04/17 11:56; Admin Dose 4 MG; Start 01/10/17 at 15:30 Acetaminophen (Ofirmev 1000mg/ 100ml Iv) 100 ml @ 400 mls/hr Q6 IVPB Last administered on 02/04/17 11:56; Admin Dose 400 MLS/HR; Start 01/10/17 at 16:30 IV Flush (NS 10 ml) 10 ml PRN PRN IV IV PROTOCOL; Start 01/10/17 at 20:30 Prednisone 10 mg 10 mg DAILY PO Last administered on 02/04/17 09:39; Admin Dose 10 MG; Start 01/15/17 at 09:00 Trimethoprim/ Sulfamethoxazole 25 ml/Dextrose 525 ml @ 343.333 mls/hr Q8 IVPB Last administered on 01/31/17 05:21; Admin Dose 343.333 MLS/HR; Start 01/19/17 at 13:30; Status Future Hold Hydromorphone HCl/ Dextrose (Dilaudid/D5W) 50 ml @ 2 mls/hr TITRATE IV Last administered on 02/02/17 15:52; Admin Dose 2 MLS/HR; Start 01/23/17 at 16:30 Ergocalciferol (Drisdol) 50,000 unit We@09 PO Last administered on 02/01/17 09 :44; Admin Dose 50,000 UNIT; Start 01/25/17 at 09:00 Calcium Carbonate (Oyster Shell Calcium) 1.25 gm BID PO Last administered on 09:39; Admin Dose 1.25 GM; Start 01/24/17 at 21:00 Pantoprazole (Protonix Tab) 40 mg DAILY@06 PO Last administered on 02/04/17 06 :00; Admin Dose 40 MG; Start 01/26/17 at 06:00 Hydromorphone HCl (Dilaudid) 1 mg Q2 PRN IV PAIN Last administered on 13:21; Admin Dose 1 MG; Start 01/25/17 at 21:00 Atenolol 25 mg 25 mg BID PO Last administered on 02/03/17 08:24; Admin Dose 25 MG; Start 01/30/17 at 12:00 Sodium Chloride (NS) 1,000 ml @ 100 mls/hr Q10H IV Last administered on 13:21; Admin Dose 100 MLS/HR; Start 02/01/17 at 08:00 Enoxaparin Sodium (Lovenox) 30 mg DAILY SC Last administered on 02/04/17 09:41 ; Admin Dose 30 MG; Start 02/01/17 at 16:00 Filgrastim 480 mcg 480 mcg DAILY@17 SC Last administered on 02/03/17 17:55; Admin Dose 480 MCG; Start 02/01/17 at 17:00 Ampicillin 50 ml @ 100 mls/hr Q8 IVPB Last administered on 02/04/17 13:20; Admin Dose 100 MLS/HR; Start 02/03/17 at 22:00 Metronidazole (Flagyl 500 Mg (Pmx)) 100 ml @ 100 mls/hr Q8 IVPB Last administered on 02/04/17 13:20; Admin Dose 100 MLS/HR; Start 02/03/17 at 22:00 Lactobacillus Acidophilus 1 each 1 each BID PO Last administered on 02/04/17 10:27; Admin Dose 1 EACH; Start 02/03/17 at 21:00 Colistimethate Sodium/Sodium Chloride (Coly-Mycin/NS) 100 ml @ 200 mls/hr Q12 IVPB ; Start 02/04/17 at 21:00 MOISES WEAVER Feb 04, 2017 13:58
[2017-02-04] MEDS ORDERED: POTASSIUM CHLORIDE 20 MEQ POWDER FOR ORAL SOLN PO ONE (14:00)
--- NOTE | 2017-02-04 17:54 | PN ---
Date/Time of Note Date/Time of Note DATE: 02/04/17 TIME: 17:51 Assessment/Plan VTE Prophylaxis VTE Prophylaxis Intervention: SCD's Lines/Catheters IV Catheter Type (from Nrsg): PICC Line Central line still needed: Yes Urinary Cath still in place: No Assessment/Plan Assessment/Plan Assessment: * Anemia * Acute pancreatitis, etiology unclear/improved * Cholelithiasis * Post cholecystostomy * Mild abnormality liver function tests with no evidence of biliary pathology * Anaplastic B-cell lymphoma/aggressive behavior * Sepsis/pneumonia/improved Plan: * continue present management * pain control * Monitor hemoglobin and hematocrit daily * Continue monitor lipase and abdominal pain * case discussed with Dr Hewitt * Further orders will depend on clinical course Subjective 24 Hr Interval Summary Free Text/Dictation * Course reviewed with RN * Patient seen and examined * Still on and off pain ,Dilaudid drip * No untoward incident overnight Exam/Review of Systems Vital Signs Vitals Vital Signs Date Time Temp Pulse Resp B/P Pulse Ox O2 Delivery O2 Flow Rate FiO2 02/04/17 16:06 83 02/04/17 15:51 97.9 19 108/59 98 02/04/17 13:34 2.0 02/04/17 08:26 Nasal Cannula Intake and Output 02/03/17 02/03/17 02/04/17 15:00 23:00 07:00 Intake Total 200 ml 1450 ml 900 ml Output Total 850 ml 1200 ml Balance 200 ml 600 ml -300 ml Exam Constitutional: frail Neck: supple Respiratory: clear to auscultation, diminished breath sounds, normal air movement Cardiovascular: nl pulses, regular rate and rhythm Gastrointestinal: bowel sounds, distended, soft, No rebound or guarding Musculoskeletal: muscle weakness Extremities: edema Neurological: nl speech Results Result Diagram: 02/03/17 0315 02/04/17 0518 Results 24 hrs Laboratory Tests Test 02/04/17 05:18 Sodium Level 136 Potassium Level 3.2 L Chloride Level 99 Carbon Dioxide Level 24 Anion Gap 12 Blood Urea Nitrogen 11 Creatinine 0.42 L Glucose Level 100 Calcium Level 8.3 L Medications Medications Current Medications Docusate Sodium (Colace) 100 mg Q12H PRN PO CONSTIPATION Last administered on t 10:46; Admin Dose 100 MG; Start 01/09/17 at 19:30 Magnesium Hydroxide (Milk Of Mag) 30 ml DAILY PRN PO CONSTIPATION Last administered on 01/29/17 09:33; Admin Dose 30 ML; Start 01/09/17 at 19:30 Sodium Biphosphate/ Sodium Phosphate (Fleet Enema) 133 ml DAILY PRN [place] CONSTIPATION; Start 01/09/17 at 19:30 Nitroglycerin (Nitroglycerin (Sl Tab) 0.4 Mg) 1 tab Q5M PRN SL ANGINA; Start at 19:30 Miscellaneous Information (Pending Santyl Order For Wound Care) This patient aranda... PRN PRN XX WOUND CARE; Start 01/10/17 at 03:30 Ondansetron HCl 4 mg 4 mg Q6 IV Last administered on 02/04/17 11:56; Admin Dose 4 MG; Start 01/10/17 at 15:30 Acetaminophen (Ofirmev 1000mg/ 100ml Iv) 100 ml @ 400 mls/hr Q6 IVPB Last administered on 02/04/17 11:56; Admin Dose 400 MLS/HR; Start 01/10/17 at 16:30 IV Flush (NS 10 ml) 10 ml PRN PRN IV IV PROTOCOL; Start 01/10/17 at 20:30 Prednisone 10 mg 10 mg DAILY PO Last administered on 02/04/17 09:39; Admin Dose 10 MG; Start 01/15/17 at 09:00 Trimethoprim/ Sulfamethoxazole 25 ml/Dextrose 525 ml @ 343.333 mls/hr Q8 IVPB Last administered on 01/31/17 05:21; Admin Dose 343.333 MLS/HR; Start 01/19/17 at 13:30; Status Future Hold Hydromorphone HCl/ Dextrose (Dilaudid/D5W) 50 ml @ 2 mls/hr TITRATE IV Last administered on 02/02/17 15:52; Admin Dose 2 MLS/HR; Start 01/23/17 at 16:30 Ergocalciferol (Drisdol) 50,000 unit We@09 PO Last administered on 02/01/17 09 :44; Admin Dose 50,000 UNIT; Start 01/25/17 at 09:00 Calcium Carbonate (Oyster Shell Calcium) 1.25 gm BID PO Last administered on 09:39; Admin Dose 1.25 GM; Start 01/24/17 at 21:00 Pantoprazole (Protonix Tab) 40 mg DAILY@06 PO Last administered on 02/04/17 06 :00; Admin Dose 40 MG; Start 01/26/17 at 06:00 Hydromorphone HCl (Dilaudid) 1 mg Q2 PRN IV PAIN Last administered on 13:21; Admin Dose 1 MG; Start 01/25/17 at 21:00 Atenolol 25 mg 25 mg BID PO Last administered on 02/03/17 08:24; Admin Dose 25 MG; Start 01/30/17 at 12:00 Sodium Chloride (NS) 1,000 ml @ 100 mls/hr Q10H IV Last administered on 13:21; Admin Dose 100 MLS/HR; Start 02/01/17 at 08:00 Enoxaparin Sodium (Lovenox) 30 mg DAILY SC Last administered on 02/04/17 09:41 ; Admin Dose 30 MG; Start 02/01/17 at 16:00 Filgrastim 480 mcg 480 mcg DAILY@17 SC Last administered on 02/03/17 17:55; Admin Dose 480 MCG; Start 02/01/17 at 17:00 Ampicillin 50 ml @ 100 mls/hr Q8 IVPB Last administered on 02/04/17 13:20; Admin Dose 100 MLS/HR; Start 02/03/17 at 22:00 Metronidazole (Flagyl 500 Mg (Pmx)) 100 ml @ 100 mls/hr Q8 IVPB Last administered on 02/04/17 13:20; Admin Dose 100 MLS/HR; Start 02/03/17 at 22:00 Lactobacillus Acidophilus 1 each 1 each BID PO Last administered on 02/04/17 10:27; Admin Dose 1 EACH; Start 02/03/17 at 21:00 Colistimethate Sodium/Sodium Chloride (Coly-Mycin/NS) 100 ml @ 200 mls/hr Q12 IVPB ; Start 02/04/17 at 21:00 SELENA ROY NP Feb 04, 2017 17:54
--- NOTE | 2017-02-04 19:15 | PN ---
Date/Time of Note Date/Time of Note DATE: 02/04/17 TIME: 19:14 Assessment/Plan Lines/Catheters IV Catheter Type (from Nrs): PICC Line [place] in Place (from Nrs): No Assessment/Plan Assessment/Plan [facility] Progress Note Date of Service: 02/04/2017 Place of service: [facility] 5W tele Today's Assessment & Plan: Overall stable and appears improved after percutaneous cholecystostomy drain placement. No indication for acute surgical intervention. With above assessment, I've recommended the followin. Continue aggressive medical management 2. Cont full liquid diet and advance slowly 3. Follow GIs recommendations 4. If it would make a difference in management, may consider percutaneous biopsy of segment 6 area of abnormality in the liver 5. Multidisciplinary tumor board presentation and discussions 6. Consideration for clinical trials once improved medically 7. LFT's, amylase and lipase checks tomorrow with labs 8. Will likely benefit from aggressive bowel regimen (some of the pain likely from constipation) 9. Percutaneous cholecystostomy drain care teachings to patient and family Thank you very much for having me involved in the care of this very pleasant patient and wonderful family. If you have any questions, please feel free to contact me at [phone]. Nature of presenting problem: High severity Please note that, given the extensive number of diagnoses or management options , the extensive amount and/or complexity of data needed to be reviewed, and high risk of complications and/or morbidity or mortality, this qualifies as high complexity type of decision-making. Disclaimer: Inadvertent spelling and grammatical errors are likely due to EHR/ dictation software use and do not reflect on the quality of delivered patient care. Also, please note that the electronic time recorded on this node does not necessarily reflect the actual time of the visit. 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 HIDA scan positive 01/28/2017. Status post percutaneous cholecystostomy drain placement 02/02/2017. Status post CT-guided left flank subcutaneous nodule biopsy [facility] 01/12/2017. Comorbidities: 1. BMI 40.7 2. Small right pleural effusion with atelectasis and right lung base pneumonia. 3. Large B cell anaplastic lymphoma; status post chemo 1 month prior to presentation 4. Sepsis 5. Hyponatremia 6. Hypokalemia 7. Acute renal injury 8. Status post percutaneous cholecystostomy drain placement 02/02/2017 Subjective: No major events or complaints; reported feeling better after drain placement and no significant abdominal pain and under control with medications; no significant reported nausea or vomiting and no major diarrhea; no sob or cp; + flatus; + BM; minimal to no activity. Objective: Vitals: See below I's & O's: See below Exam: GENERAL: On exam, the patient was lying in bed and appeared to be comfortable and in no acute distress. Less diaphoretic. ABDOMEN: Soft, minimal to no tenderness and nondistended. There are no peritoneal signs or guarding. Perc GB drain with thick green bilious output. SKIN: Skin appears to be pink and feels warm to touch. NEUROLOGIC: Patient is awake, alert, and follows commands appropriately. Labs: See below Exam/Review of Systems Vital Signs Vitals Vital Signs Date Time Temp Pulse Resp B/P Pulse Ox O2 Delivery O2 Flow Rate FiO2 02/04/17 16:06 83 02/04/17 15:51 97.9 19 108/59 98 02/04/17 13:34 2.0 02/04/17 08:26 Nasal Cannula Intake and Output 02/03/17 02/03/17 02/04/17 15:00 23:00 07:00 Intake Total 200 ml 1450 ml 900 ml Output Total 850 ml 1200 ml Balance 200 ml 600 ml -300 ml Results Result Diagram: 02/03/17 0315 02/04/17 0518 LENKA HERNANDEZ M.D. Feb 04, 2017 19:15
[2017-02-04] MEDS ORDERED: NA PHOSPHATE/BIPHOS 133 ML ENEMA PR PRN (19:30)
[2017-02-04] MEDS ORDERED: DOCUSATE SODIUM 100 MG CAP PO PRN (19:30)
[2017-02-04] MEDS ORDERED: BISACODYL 10 MG SUPP PR PRN (19:30)
[2017-02-04] MEDS: FILGRASTIM 480 MCG INJ SC SCH (19:39)
[2017-02-05] VITALS (13 sets, daily range): BP systolic 101–126; BP diastolic 53–60; PULSE 90–112; RESP 18–20
[2017-02-05] MEDS: MAGNESIUM HYDROXIDE 30ML CUP PO PRN (00:29)
[2017-02-05] MEDS: DOCUSATE SODIUM 100 MG CAP PO PRN (00:29)
[2017-02-05] MEDS: SOD CHLORIDE 0.9% 1,000 ML IV SCH ×3 (02:00→22:00)
[2017-02-05] MEDS: HYDROmorphONE 1 MG/ML SYG IV PRN ×4 (02:54→21:03)
[2017-02-05] MEDS: metroNIDAZOLE 500 MG/NS (PMX) 100 ML IVPB SCH ×3 (05:28→21:04)
[2017-02-05] MEDS: ACETAMINOPHEN 1000MG/100ML IV 100 ML IVPB SCH ×3 (05:29→18:00)
[2017-02-05] MEDS: PANTOPRAZOLE (EC) 40 MG TAB PO SCH (05:31)
[2017-02-05] MEDS: ONDANSETRON 4 MG INJ IV SCH ×3 (05:31→18:55)
[2017-02-05] MEDS: AMPICILLIN 1 GM/NS (PMX) 50 ML IVPB SCH ×3 (05:31→21:04)
[2017-02-05] MEDS: L ACIDOPHIL/B LACTIS/B LONGUM CAPSULE PO SCH ×2 (08:36→20:26)
[2017-02-05] MEDS: predniSONE 20 MG TAB PO SCH (08:36)
[2017-02-05] MEDS: ATENOLOL 25 MG TAB PO SCH ×2 (08:37→20:58)
[2017-02-05] MEDS: COLISTIMETHATE 150 MG in SOD CHLORIDE 0.9% 100 ML IVPB SCH ×2 (08:37→20:19)
[2017-02-05] MEDS: CALCIUM CARBONATE 1.25 GM TAB PO SCH ×2 (08:37→20:19)
[2017-02-05] MEDS: ENOXAPARIN 30 MG/0.3 ML SYG SC SCH (08:47)
[2017-02-05] MEDS: COLISTIMETHATE (25 MG/ML INHAL SYG) NEB SCH ×2 (09:12→21:44)
--- NOTE | 2017-02-05 09:41 | CONS ---
Date/Time of Note Date/Time of Note DATE: 02/05/17 TIME: 09:40 Assessment/Plan Assessment/Plan Additional Assessment/Plan 1.Tachycardia- S Tach-NL Ft4. Likely driven by fevers/NL EF by echo this admit. Currently improved - better now - BETTER NOW (satblea t low 100s) 2.lymphoma - on therapy per oncology team - Rx with hematology/oncology team 3.HTN - well rx 4.anemia- H/h stale 5.obesity 6.Hyponatremia-improved - better now 7.Pancreatitis-improved - better now Consultation Date/Type/Reason Admit Date/Time Jan 09, 2017 at 19:08 Initial Consult Date 01/15/17 [facility] Referring Provider: YAO RAHMAN 24 HR Interval Summary Free Text/Dictation NO acute events better now - BETTER NOW (stable t low 100s) ROS: No fever, no chills, no nausea, no vomiting, no diarrhea/constipation No recent weight changes No chest pain, no PND, no orthopnea No dizziness, blurred vision No thirst, no heat or cold intolerance Exam/Review of Systems Vital Signs Vitals Vital Signs Date Time Temp Pulse Resp B/P Pulse Ox O2 Delivery O2 Flow Rate FiO2 02/05/17 09:13 75 20 98 Nasal Cannula 2.0 02/05/17 07:25 98.2 107/55 Intake and Output 02/04/17 02/04/17 02/05/17 15:00 23:00 07:00 Intake Total 150 ml 1024 ml Output Total 1700 ml Balance 150 ml -676 ml Exam General: WN/WD/NAD, AOx 3 HEENT: Unicetric/atraumatic/EOMI (follow commands) NECK: JVD elevated, no thyromegaly Lymph: no lymphadenopathy HEART: regular with no S3, II/ systolic murmur at apex LUNGS: Coarse sounds ABD: soft, NT, ND, +BS : Intact Neuro: non focal SKIN: chronic changes EXT: trace edema Results Result Diagram: 02/03/17 0315 02/04/17 0518 Results 24 hrs Laboratory Tests Test 02/05/17 08:20 Lab Scanned Report REFERENCE LAB Medications Medications Current Medications Docusate Sodium (Colace) 100 mg Q12H PRN PO CONSTIPATION Last administered on t 00:29; Admin Dose 100 MG; Start 01/09/17 at 19:30 Magnesium Hydroxide (Milk Of Mag) 30 ml DAILY PRN PO CONSTIPATION Last administered on 02/05/17 00:29; Admin Dose 30 ML; Start 01/09/17 at 19:30 Sodium Biphosphate/ Sodium Phosphate (Fleet Enema) 133 ml DAILY PRN [place] CONSTIPATION; Start 01/09/17 at 19:30 Nitroglycerin (Nitroglycerin (Sl Tab) 0.4 Mg) 1 tab Q5M PRN SL ANGINA; Start at 19:30 Miscellaneous Information (Pending Santyl Order For Wound Care) This patient aranda... PRN PRN XX WOUND CARE; Start 01/10/17 at 03:30 Ondansetron HCl 4 mg 4 mg Q6 IV Last administered on 02/05/17 05:31; Admin Dose 4 MG; Start 01/10/17 at 15:30 Acetaminophen (Ofirmev 1000mg/ 100ml Iv) 100 ml @ 400 mls/hr Q6 IVPB Last administered on 02/05/17 05:29; Admin Dose 400 MLS/HR; Start 01/10/17 at 16:30 IV Flush (NS 10 ml) 10 ml PRN PRN IV IV PROTOCOL; Start 01/10/17 at 20:30 Prednisone 10 mg 10 mg DAILY PO Last administered on 02/05/17 08:36; Admin Dose 10 MG; Start 01/15/17 at 09:00 Trimethoprim/ Sulfamethoxazole 25 ml/Dextrose 525 ml @ 343.333 mls/hr Q8 IVPB Last administered on 01/31/17 05:21; Admin Dose 343.333 MLS/HR; Start 01/19/17 at 13:30; Status Future Hold Hydromorphone HCl/ Dextrose (Dilaudid/D5W) 50 ml @ 2 mls/hr TITRATE IV Last administered on 02/04/17 04:30; Admin Dose 2 MLS/HR; Start 01/23/17 at 16:30 Ergocalciferol (Drisdol) 50,000 unit We@09 PO Last administered on 02/01/17 09 :44; Admin Dose 50,000 UNIT; Start 01/25/17 at 09:00 Calcium Carbonate (Oyster Shell Calcium) 1.25 gm BID PO Last administered on 08:37; Admin Dose 1.25 GM; Start 01/24/17 at 21:00 Pantoprazole (Protonix Tab) 40 mg DAILY@06 PO Last administered on 02/05/17 05 :31; Admin Dose 40 MG; Start 01/26/17 at 06:00 Hydromorphone HCl (Dilaudid) 1 mg Q2 PRN IV PAIN Last administered on 08:55; Admin Dose 1 MG; Start 01/25/17 at 21:00 Atenolol 25 mg 25 mg BID PO Last administered on 02/05/17 08:37; Admin Dose 25 MG; Start 01/30/17 at 12:00 Sodium Chloride (NS) 1,000 ml @ 100 mls/hr Q10H IV Last administered on 13:21; Admin Dose 100 MLS/HR; Start 02/01/17 at 08:00 Enoxaparin Sodium (Lovenox) 30 mg DAILY SC Last administered on 02/05/17 08:47 ; Admin Dose 30 MG; Start 02/01/17 at 16:00 Filgrastim 480 mcg 480 mcg DAILY@17 SC Last administered on 02/03/17 17:55; Admin Dose 480 MCG; Start 02/01/17 at 17:00 Ampicillin 50 ml @ 100 mls/hr Q8 IVPB Last administered on 02/05/17 05:31; Admin Dose 100 MLS/HR; Start 02/03/17 at 22:00 Metronidazole (Flagyl 500 Mg (Pmx)) 100 ml @ 100 mls/hr Q8 IVPB Last administered on 02/05/17 05:28; Admin Dose 100 MLS/HR; Start 02/03/17 at 22:00 Lactobacillus Acidophilus 1 each 1 each BID PO Last administered on 02/05/17 08:36; Admin Dose 1 EACH; Start 02/03/17 at 21:00 Colistimethate Sodium/Sodium Chloride (Coly-Mycin/NS) 100 ml @ 200 mls/hr Q12 IVPB Last administered on 02/05/17 08:37; Admin Dose 200 MLS/HR; Start at 21:00 Bisacodyl (Dulcolax Supp) 10 mg BID PRN [place] CONSTIPATION; Start 02/04/17 at 19: 30 Sodium Biphosphate/ Sodium Phosphate (Fleet Enema) 133 ml BID PRN [place] CONSTIPATION; Start 02/04/17 at 19:30 Docusate Sodium (Colace) 100 mg BID PRN PO CONSTIPATION; Start 02/04/17 at 19: 30 VIOLET BLUM MD Feb 05, 2017 09:41
--- NOTE | 2017-02-05 11:03 | PN ---
Date/Time of Note Date/Time of Note DATE: 02/05/17 TIME: 11:01 Assessment/Plan VTE Prophylaxis VTE Prophylaxis Intervention: SCD's Lines/Catheters IV Catheter Type (from Nrsg): PICC Line Central line still needed: Yes Urinary Cath still in place: No Assessment/Plan Assessment/Plan Assessment: * Anemia * Acute pancreatitis, etiology unclear/improved * Cholelithiasis * Post cholecystostomy * Mild abnormality liver function tests with no evidence of biliary pathology * Anaplastic B-cell lymphoma/aggressive behavior * Sepsis/pneumonia/improved Plan: * continue present management * pain control * Monitor hemoglobin and hematocrit daily * Continue monitor lipase and abdominal pain * case discussed with Dr Hewitt * Further orders will depend on clinical course Subjective 24 Hr Interval Summary Free Text/Dictation * Course reviewed with RN * Patient seen and examined * No untoward incident overnight Exam/Review of Systems Vital Signs Vitals Vital Signs Date Time Temp Pulse Resp B/P Pulse Ox O2 Delivery O2 Flow Rate FiO2 02/05/17 09:13 75 20 98 Nasal Cannula 2.0 02/05/17 07:25 98.2 107/55 Intake and Output 02/04/17 02/04/17 02/05/17 15:00 23:00 07:00 Intake Total 150 ml 1024 ml Output Total 1700 ml Balance 150 ml -676 ml Exam Constitutional: alert, frail Neck: non-tender, supple Respiratory: clear to auscultation, normal air movement Cardiovascular: nl pulses, regular rate and rhythm Gastrointestinal: distended, soft Musculoskeletal: muscle weakness, range of motion Extremities: edema, pitting pedal edema Results Result Diagram: 02/03/17 0315 02/04/17 0518 Results 24 hrs Laboratory Tests Test 02/05/17 08:20 Lab Scanned Report REFERENCE LAB Medications Medications Current Medications Docusate Sodium (Colace) 100 mg Q12H PRN PO CONSTIPATION Last administered on 00:29; Admin Dose 100 MG; Start 01/09/17 at 19:30 Magnesium Hydroxide (Milk Of Mag) 30 ml DAILY PRN PO CONSTIPATION Last administered on 02/05/17 00:29; Admin Dose 30 ML; Start 01/09/17 at 19:30 Sodium Biphosphate/ Sodium Phosphate (Fleet Enema) 133 ml DAILY PRN [place] CONSTIPATION; Start 01/09/17 at 19:30 Nitroglycerin (Nitroglycerin (Sl Tab) 0.4 Mg) 1 tab Q5M PRN SL ANGINA; Start at 19:30 Miscellaneous Information (Pending [facility] Order For Wound Care) This patient aranda... PRN PRN XX WOUND CARE; Start 01/10/17 at 03:30 Ondansetron HCl 4 mg 4 mg Q6 IV Last administered on 02/05/17 05:31; Admin Dose 4 MG; Start 01/10/17 at 15:30 Acetaminophen (Ofirmev 1000mg/ 100ml Iv) 100 ml @ 400 mls/hr Q6 IVPB Last administered on 02/05/17 05:29; Admin Dose 400 MLS/HR; Start 01/10/17 at 16:30 IV Flush (NS 10 ml) 10 ml PRN PRN IV IV PROTOCOL; Start 01/10/17 at 20:30 Prednisone 10 mg 10 mg DAILY PO Last administered on 02/05/17 08:36; Admin Dose 10 MG; Start 01/15/17 at 09:00 Trimethoprim/ Sulfamethoxazole 25 ml/Dextrose 525 ml @ 343.333 mls/hr Q8 IVPB Last administered on 01/31/17 05:21; Admin Dose 343.333 MLS/HR; Start 01/19/17 at 13:30; Status Future Hold Hydromorphone HCl/ Dextrose (Dilaudid/D5W) 50 ml @ 2 mls/hr TITRATE IV Last administered on 02/04/17 04:30; Admin Dose 2 MLS/HR; Start 01/23/17 at 16:30 Ergocalciferol (Drisdol) 50,000 unit We@09 PO Last administered on 02/01/17 09 :44; Admin Dose 50,000 UNIT; Start 01/25/17 at 09:00 Calcium Carbonate (Oyster Shell Calcium) 1.25 gm BID PO Last administered on 08:37; Admin Dose 1.25 GM; Start 01/24/17 at 21:00 Pantoprazole (Protonix Tab) 40 mg DAILY@06 PO Last administered on 02/05/17 05 :31; Admin Dose 40 MG; Start 01/26/17 at 06:00 Hydromorphone HCl (Dilaudid) 1 mg Q2 PRN IV PAIN Last administered on 08:55; Admin Dose 1 MG; Start 01/25/17 at 21:00 Atenolol 25 mg 25 mg BID PO Last administered on 02/05/17 08:37; Admin Dose 25 MG; Start 01/30/17 at 12:00 Sodium Chloride (NS) 1,000 ml @ 100 mls/hr Q10H IV Last administered on 13:21; Admin Dose 100 MLS/HR; Start 02/01/17 at 08:00 Enoxaparin Sodium (Lovenox) 30 mg DAILY SC Last administered on 02/05/17 08:47 ; Admin Dose 30 MG; Start 02/01/17 at 16:00 Filgrastim 480 mcg 480 mcg DAILY@17 SC Last administered on 02/03/17 17:55; Admin Dose 480 MCG; Start 02/01/17 at 17:00 Ampicillin 50 ml @ 100 mls/hr Q8 IVPB Last administered on 02/05/17 05:31; Admin Dose 100 MLS/HR; Start 02/03/17 at 22:00 Metronidazole (Flagyl 500 Mg (Pmx)) 100 ml @ 100 mls/hr Q8 IVPB Last administered on 02/05/17 05:28; Admin Dose 100 MLS/HR; Start 02/03/17 at 22:00 Lactobacillus Acidophilus 1 each 1 each BID PO Last administered on 02/05/17 08:36; Admin Dose 1 EACH; Start 02/03/17 at 21:00 Colistimethate Sodium/Sodium Chloride (Coly-Mycin/NS) 100 ml @ 200 mls/hr Q12 IVPB Last administered on 02/05/17 08:37; Admin Dose 200 MLS/HR; Start at 21:00 Bisacodyl (Dulcolax Supp) 10 mg BID PRN [place] CONSTIPATION; Start 02/04/17 at 19: 30 Sodium Biphosphate/ Sodium Phosphate (Fleet Enema) 133 ml BID PRN [place] CONSTIPATION; Start 02/04/17 at 19:30 Docusate Sodium (Colace) 100 mg BID PRN PO CONSTIPATION; Start 02/04/17 at 19: 30 SELENA ROY NP Feb 05, 2017 11:03
--- NOTE | 2017-02-05 12:54 | CONS ---
Date/Time of Note Date/Time of Note DATE: 02/05/17 TIME: 12:47 Assessment/Plan Assessment/Plan Chief Complaint/Hosp Course Assessment/Plan Chief Complaint/Hosp Course ID PROGRESS NOTE CURRENT ABX=> Vanco IV #5+ Colistin IV #2 + Flagyl IV + Cancidas s/p Zosyn + Levaquin IV + Bactrim IV s/p Colistin INH Vanco IV #8 -> DC 8/10 Bactrim po (RX per his HemeOnc)-> dc 8/6 24H INTERVAL SUMMARY * Alert. Awake. No Acute Distress. 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 * Presented w/Rx Bactrim 1tab daily (Neutropenic PCP prophy per HemeOnc) * CT ABD/PEL/CHEST:(+) multiple areas of nodules likely lymphoma, 2 s/p Sepsis w/worsening lactic acidosis 2/2 PNA + Left flank/hip/leg decub = > RESOLVED 3. Resolving HCAP => CT ABD/PEL/CHEST: (+) PNA=> RESOLVING * 01/24 RESPIRATORY CULTURE Final 3+ KLEB PNEUMONIAE CARBAPENEMASE 4. Acute Cholecystitis w/ pancreatitis -> No evidence of necrosis on CT => RESOLVING 5. Presumed RAMU: likely pre-renal 2/2 vomiting 6. s/p Enterococcal UTI -> Low colony count 7. Fever 8. Decubs: * left flank /BACK 01/22 WOUND CULTURE Final * Organism 1 PSEUDOMONAS AERUGINOSA * Organism 2 KLEB PNEUMONIAE CARBAPENEMASE * Organism 3 ENTEROCOCCUS SPECIES * LLEXT wound stage III * 01/12/17 WOUND CULTURE * Organism 1 CITROBACTER FREUNDI * Organism 2 ENTEROCOCCUS SPECIES * Organism 3 CORYNEBACTERIUM SPECIES * Organism 4 STENOTROPHOMONAS MALTOPHILIA INVASIVES: RUEXT PICC ABX ALLERGY: EGG/MILK CURRENT ABX=> Vanco IV #5+ Colistin IV #2 + Flagyl IV + Cancidas s/p Zosyn + Levaquin IV + Bactrim IV s/p Colistin INH Vanco IV #8 -> DC 8/10 Bactrim po (RX per his HemeOnc)-> dc 8/6 ID PLAN 1. Continue ABX for resolving MDRO HCAP + wounds => ABX adjusted recently 2. Watch renal Fx on Vanco + Colistin IV 3. Pain management. Monitor Labs. 4. GI prophylaxis. DVT prophylaxis. Problems: Consultation Date/Type/Reason Admit Date/Time Jan 09, 2017 at 19:08 Initial Consult Date 01/10/17 Type of Consultation: id Referring Provider: YAO RAHMAN Exam/Review of Systems Vital Signs Vitals Vital Signs Date Time Temp Pulse Resp B/P Pulse Ox O2 Delivery O2 Flow Rate FiO2 02/05/17 11:28 103.2 108 20 115/60 99 02/05/17 09:13 Nasal Cannula 2.0 Intake and Output 02/04/17 02/04/17 02/05/17 15:00 23:00 07:00 Intake Total 150 ml 1024 ml Output Total 1700 ml Balance 150 ml -676 ml Results Result Diagram: 02/03/17 0315 02/04/17 0518 Results 24 hrs Laboratory Tests Test 02/05/17 08:20 Lab Scanned Report REFERENCE LAB Medications Medications Current Medications Docusate Sodium (Colace) 100 mg Q12H PRN PO CONSTIPATION Last administered on 00:29; Admin Dose 100 MG; Start 01/09/17 at 19:30 Magnesium Hydroxide (Milk Of Mag) 30 ml DAILY PRN PO CONSTIPATION Last administered on 02/05/17 00:29; Admin Dose 30 ML; Start 01/09/17 at 19:30 Sodium Biphosphate/ Sodium Phosphate (Fleet Enema) 133 ml DAILY PRN [place] CONSTIPATION; Start 01/09/17 at 19:30 Nitroglycerin (Nitroglycerin (Sl Tab) 0.4 Mg) 1 tab Q5M PRN SL ANGINA; Start at 19:30 Miscellaneous Information (Pending Santyl Order For Wound Care) This patient aranda... PRN PRN XX WOUND CARE; Start 01/10/17 at 03:30 Ondansetron HCl 4 mg 4 mg Q6 IV Last administered on 02/05/17 05:31; Admin Dose 4 MG; Start 01/10/17 at 15:30 Acetaminophen (Ofirmev 1000mg/ 100ml Iv) 100 ml @ 400 mls/hr Q6 IVPB Last administered on 02/05/17 05:29; Admin Dose 400 MLS/HR; Start 01/10/17 at 16:30 IV Flush (NS 10 ml) 10 ml PRN PRN IV IV PROTOCOL; Start 01/10/17 at 20:30 Prednisone 10 mg 10 mg DAILY PO Last administered on 02/05/17 08:36; Admin Dose 10 MG; Start 01/15/17 at 09:00 Trimethoprim/ Sulfamethoxazole 25 ml/Dextrose 525 ml @ 343.333 mls/hr Q8 IVPB Last administered on 01/31/17 05:21; Admin Dose 343.333 MLS/HR; Start 01/19/17 at 13:30; Status Future Hold Hydromorphone HCl/ Dextrose (Dilaudid/D5W) 50 ml @ 2 mls/hr TITRATE IV Last administered on 02/04/17 04:30; Admin Dose 2 MLS/HR; Start 01/23/17 at 16:30 Ergocalciferol (Drisdol) 50,000 unit We@09 PO Last administered on 02/01/17 09 :44; Admin Dose 50,000 UNIT; Start 01/25/17 at 09:00 Calcium Carbonate (Oyster Shell Calcium) 1.25 gm BID PO Last administered on 08:37; Admin Dose 1.25 GM; Start 01/24/17 at 21:00 Pantoprazole (Protonix Tab) 40 mg DAILY@06 PO Last administered on 02/05/17 05 :31; Admin Dose 40 MG; Start 01/26/17 at 06:00 Hydromorphone HCl (Dilaudid) 1 mg Q2 PRN IV PAIN Last administered on 08:55; Admin Dose 1 MG; Start 01/25/17 at 21:00 Atenolol 25 mg 25 mg BID PO Last administered on 02/05/17 08:37; Admin Dose 25 MG; Start 01/30/17 at 12:00 Sodium Chloride (NS) 1,000 ml @ 100 mls/hr Q10H IV Last administered on 13:21; Admin Dose 100 MLS/HR; Start 02/01/17 at 08:00 Enoxaparin Sodium (Lovenox) 30 mg DAILY SC Last administered on 02/05/17 08:47 ; Admin Dose 30 MG; Start 02/01/17 at 16:00 Filgrastim 480 mcg 480 mcg DAILY@17 SC Last administered on 02/03/17 17:55; Admin Dose 480 MCG; Start 02/01/17 at 17:00 Ampicillin 50 ml @ 100 mls/hr Q8 IVPB Last administered on 02/05/17 05:31; Admin Dose 100 MLS/HR; Start 02/03/17 at 22:00 Metronidazole (Flagyl 500 Mg (Pmx)) 100 ml @ 100 mls/hr Q8 IVPB Last administered on 02/05/17 05:28; Admin Dose 100 MLS/HR; Start 02/03/17 at 22:00 Lactobacillus Acidophilus 1 each 1 each BID PO Last administered on 02/05/17 08:36; Admin Dose 1 EACH; Start 02/03/17 at 21:00 Colistimethate Sodium/Sodium Chloride (Coly-Mycin/NS) 100 ml @ 200 mls/hr Q12 IVPB Last administered on 02/05/17 08:37; Admin Dose 200 MLS/HR; Start at 21:00 Bisacodyl (Dulcolax Supp) 10 mg BID PRN SC CONSTIPATION; Start 02/04/17 at 19: 30 Sodium Biphosphate/ Sodium Phosphate (Fleet Enema) 133 ml BID PRN SC CONSTIPATION; Start 02/04/17 at 19:30 Docusate Sodium (Colace) 100 mg BID PRN PO CONSTIPATION; Start 02/04/17 at 19: 30 JOSSELINE LAIRD NP Feb 05, 2017 12:54
--- NOTE | 2017-02-05 15:50 | PN ---
Date/Time of Note Date/Time of Note DATE: 02/05/17 TIME: 15:46 Assessment/Plan VTE Prophylaxis VTE Prophylaxis Intervention: other Lines/Catheters IV Catheter Type (from Nrsg): PICC Line Central line still needed: Yes Urinary Cath still in place: No Reason Cath still needed: other (indicate) Assessment/Plan Chief Complaint/Hosp Course SEPSIS FEVER PANCREATITIS HYPOKALEMIA PLAN PER ID KCL PAIN MEDS Problems: Subjective 24 Hr Interval Summary Respiratory: no complaints Cardiovascular: no complaints Musculoskeletal: no complaints Skin: no complaints Exam/Review of Systems Vital Signs Vitals Vital Signs Date Time Temp Pulse Resp B/P Pulse Ox O2 Delivery O2 Flow Rate FiO2 02/05/17 13:53 1.0 02/05/17 12:01 112 02/05/17 11:28 103.2 20 115/60 99 02/05/17 09:13 Nasal Cannula Intake and Output 02/04/17 02/04/17 02/05/17 15:00 23:00 07:00 Intake Total 150 ml 1024 ml Output Total 1700 ml Balance 150 ml -676 ml Exam Neck: supple Respiratory: clear to auscultation Cardiovascular: regular rate and rhythm Gastrointestinal: bowel sounds (+), soft Extremities: edema (+) Results Result Diagram: 02/03/17 0315 02/04/17 0518 Results 24 hrs Laboratory Tests Test 02/05/17 08:20 Lab Scanned Report REFERENCE LAB Medications Medications Current Medications Docusate Sodium (Colace) 100 mg Q12H PRN PO CONSTIPATION Last administered on 00:29; Admin Dose 100 MG; Start 01/09/17 at 19:30 Magnesium Hydroxide (Milk Of Mag) 30 ml DAILY PRN PO CONSTIPATION Last administered on 02/05/17 00:29; Admin Dose 30 ML; Start 01/09/17 at 19:30 Sodium Biphosphate/ Sodium Phosphate (Fleet Enema) 133 ml DAILY PRN [place] CONSTIPATION; Start 01/09/17 at 19:30 Nitroglycerin (Nitroglycerin (Sl Tab) 0.4 Mg) 1 tab Q5M PRN SL ANGINA; Start at 19:30 Miscellaneous Information (Pending Santyl Order For Wound Care) This patient aranda... PRN PRN XX WOUND CARE; Start 01/10/17 at 03:30 Ondansetron HCl 4 mg 4 mg Q6 IV Last administered on 02/05/17 05:31; Admin Dose 4 MG; Start 01/10/17 at 15:30 Acetaminophen (Ofirmev 1000mg/ 100ml Iv) 100 ml @ 400 mls/hr Q6 IVPB Last administered on 02/05/17 05:29; Admin Dose 400 MLS/HR; Start 01/10/17 at 16:30 IV Flush (NS 10 ml) 10 ml PRN PRN IV IV PROTOCOL; Start 01/10/17 at 20:30 Prednisone 10 mg 10 mg DAILY PO Last administered on 02/05/17 08:36; Admin Dose 10 MG; Start 01/15/17 at 09:00 Trimethoprim/ Sulfamethoxazole 25 ml/Dextrose 525 ml @ 343.333 mls/hr Q8 IVPB Last administered on 01/31/17 05:21; Admin Dose 343.333 MLS/HR; Start 01/19/17 at 13:30; Status Future Hold Hydromorphone HCl/ Dextrose (Dilaudid/D5W) 50 ml @ 2 mls/hr TITRATE IV Last administered on 02/04/17 04:30; Admin Dose 2 MLS/HR; Start 01/23/17 at 16:30 Ergocalciferol (Drisdol) 50,000 unit We@09 PO Last administered on 02/01/17 09 :44; Admin Dose 50,000 UNIT; Start 01/25/17 at 09:00 Calcium Carbonate (Oyster Shell Calcium) 1.25 gm BID PO Last administered on 08:37; Admin Dose 1.25 GM; Start 01/24/17 at 21:00 Pantoprazole (Protonix Tab) 40 mg DAILY@06 PO Last administered on 02/05/17 05 :31; Admin Dose 40 MG; Start 01/26/17 at 06:00 Hydromorphone HCl (Dilaudid) 1 mg Q2 PRN IV PAIN Last administered on 08:55; Admin Dose 1 MG; Start 01/25/17 at 21:00 Atenolol 25 mg 25 mg BID PO Last administered on 02/05/17 08:37; Admin Dose 25 MG; Start 01/30/17 at 12:00 Sodium Chloride (NS) 1,000 ml @ 100 mls/hr Q10H IV Last administered on 13:21; Admin Dose 100 MLS/HR; Start 02/01/17 at 08:00 Enoxaparin Sodium (Lovenox) 30 mg DAILY SC Last administered on 02/05/17 08:47 ; Admin Dose 30 MG; Start 02/01/17 at 16:00 Filgrastim 480 mcg 480 mcg DAILY@17 SC Last administered on 02/03/17 17:55; Admin Dose 480 MCG; Start 02/01/17 at 17:00 Ampicillin 50 ml @ 100 mls/hr Q8 IVPB Last administered on 02/05/17 05:31; Admin Dose 100 MLS/HR; Start 02/03/17 at 22:00 Metronidazole (Flagyl 500 Mg (Pmx)) 100 ml @ 100 mls/hr Q8 IVPB Last administered on 02/05/17 05:28; Admin Dose 100 MLS/HR; Start 02/03/17 at 22:00 Lactobacillus Acidophilus 1 each 1 each BID PO Last administered on 02/05/17 08:36; Admin Dose 1 EACH; Start 02/03/17 at 21:00 Colistimethate Sodium/Sodium Chloride (Coly-Mycin/NS) 100 ml @ 200 mls/hr Q12 IVPB Last administered on 02/05/17 08:37; Admin Dose 200 MLS/HR; Start at 21:00 Bisacodyl (Dulcolax Supp) 10 mg BID PRN [place] CONSTIPATION; Start 02/04/17 at 19: 30 Sodium Biphosphate/ Sodium Phosphate (Fleet Enema) 133 ml BID PRN [place] CONSTIPATION; Start 02/04/17 at 19:30 Docusate Sodium (Colace) 100 mg BID PRN PO CONSTIPATION; Start 02/04/17 at 19: 30 TAWNY CELIS MD Feb 05, 2017 15:50
[2017-02-05] MEDS: HYDROmorphONE 50 MG in DEXTROSE 5% 45 ML IV SCH (17:00)
[2017-02-05] MEDS ORDERED: POTASSIUM CHLORIDE 30 MEQ in DEXTROSE 5% 250 ML IVPB ONE (17:00)
[2017-02-05] MEDS: FILGRASTIM 480 MCG INJ SC SCH (17:00)
--- NOTE | 2017-02-05 21:39 | CONS ---
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 His last chemo was a month ago and hadn't had since due to experiencing similar presenting symptoms. record from pt's oncologist Kain Wisdom - P Left flank mass, CT-guided core needle biopsies with touch imprints: Completely necrotic tissue, insufficient for pathologic evaluation. PER PT REPORT- reportedly scheduled for change in therapy due to what appears to be lack of adequate response CT ABD/PEL/CHEST:(+) multiple areas of nodules likely lymphoma, LEUKOPENIA IN PT WITH HNL POST CHEMO AND WITH SEPTIC PICTURE MONITOR BLOOD COUNT CLOSELY POST NEUPOGEN WBC- FLUCTUATING IMPROVED ON NEUPOGEN X 2 PANCYTOPENIA POST CHEMO CONT TO MONITOR PRBC NEEDED s/p Sepsis w/worsening lactic acidosis 2/2 PNA + Left flank/hip/leg decub Resolving HCAP => CT ABD/PEL/CHEST: (+) PNA * 01/24 RESPIRATORY CULTURE Final 3+ KLEB PNEUMONIAE CARBAPENEMASE ID W-UP pancreatitis. Abd Pain with N/V: 2/2 known lymphoma - pain mgmt - Anti-emetics Hyponatremia and Hypokalemia: 2/2 vomiting - NS IVF - replete K+ as needed Presumed RAMU: likely pre-renal 2/2 vomiting - cont IVF for now Problems: Consultation Date/Type/Reason Admit Date/Time Jan 09, 2017 at 19:08 Initial Consult Date 01/10/17 Type of Consultation: [facility] Referring Provider: YAO RAHMAN 24 HR Interval Summary Free Text/Dictation ALL NOTED Exam/Review of Systems Vital Signs Vitals Vital Signs Date Time Temp Pulse Resp B/P Pulse Ox O2 Delivery O2 Flow Rate FiO2 02/05/17 20:14 98.4 92 19 101/55 99 02/05/17 13:53 1.0 02/05/17 09:13 Nasal Cannula Intake and Output 02/04/17 02/04/17 02/05/17 15:00 23:00 07:00 Intake Total 150 ml 1024 ml Output Total 1700 ml Balance 150 ml -676 ml Exam GENERAL: 31 yo M obese HEENT:Unremarkable, no thrush NECK: Supple CHEST: Rise symmetrical without dyspnea on observation ABDOMEN: Soft, obese, VIKTOR drain w/dark brown liquid filling bulb EXTREMITIES: Warm, moves extremities SKIN: Tattoos Results Result Diagram: 02/03/17 0315 02/04/17 0518 Results 24 hrs Laboratory Tests Test 02/05/17 08:20 Lab Scanned Report REFERENCE LAB Medications Medications Current Medications Docusate Sodium (Colace) 100 mg Q12H PRN PO CONSTIPATION Last administered on 00:29; Admin Dose 100 MG; Start 01/09/17 at 19:30 Magnesium Hydroxide (Milk Of Mag) 30 ml DAILY PRN PO CONSTIPATION Last administered on 02/05/17 00:29; Admin Dose 30 ML; Start 01/09/17 at 19:30 Sodium Biphosphate/ Sodium Phosphate (Fleet Enema) 133 ml DAILY PRN [place] CONSTIPATION; Start 01/09/17 at 19:30 Nitroglycerin (Nitroglycerin (Sl Tab) 0.4 Mg) 1 tab Q5M PRN SL ANGINA; Start at 19:30 Miscellaneous Information (Pending [facility] Order For Wound Care) This patient aranda... PRN PRN XX WOUND CARE; Start 01/10/17 at 03:30 Ondansetron HCl 4 mg 4 mg Q6 IV Last administered on 02/05/17 05:31; Admin Dose 4 MG; Start 01/10/17 at 15:30 Acetaminophen (Ofirmev 1000mg/ 100ml Iv) 100 ml @ 400 mls/hr Q6 IVPB Last administered on 02/05/17 05:29; Admin Dose 400 MLS/HR; Start 01/10/17 at 16:30 IV Flush (NS 10 ml) 10 ml PRN PRN IV IV PROTOCOL; Start 01/10/17 at 20:30 Prednisone 10 mg 10 mg DAILY PO Last administered on 02/05/17 08:36; Admin Dose 10 MG; Start 01/15/17 at 09:00 Trimethoprim/ Sulfamethoxazole 25 ml/Dextrose 525 ml @ 343.333 mls/hr Q8 IVPB Last administered on 01/31/17 05:21; Admin Dose 343.333 MLS/HR; Start 01/19/17 at 13:30; Status Future Hold Hydromorphone HCl/ Dextrose (Dilaudid/D5W) 50 ml @ 2 mls/hr TITRATE IV Last administered on 02/05/17 17:00; Admin Dose 2 MLS/HR; Start 01/23/17 at 16:30 Ergocalciferol (Drisdol) 50,000 unit We@09 PO Last administered on 02/01/17 09 :44; Admin Dose 50,000 UNIT; Start 01/25/17 at 09:00 Calcium Carbonate (Oyster Shell Calcium) 1.25 gm BID PO Last administered on 20:19; Admin Dose 1.25 GM; Start 01/24/17 at 21:00 Pantoprazole (Protonix Tab) 40 mg DAILY@06 PO Last administered on 02/05/17 05 :31; Admin Dose 40 MG; Start 01/26/17 at 06:00 Hydromorphone HCl (Dilaudid) 1 mg Q2 PRN IV PAIN Last administered on 21:03; Admin Dose 1 MG; Start 01/25/17 at 21:00 Atenolol 25 mg 25 mg BID PO Last administered on 02/05/17 08:37; Admin Dose 25 MG; Start 01/30/17 at 12:00 Sodium Chloride (NS) 1,000 ml @ 100 mls/hr Q10H IV Last administered on 13:21; Admin Dose 100 MLS/HR; Start 02/01/17 at 08:00 Enoxaparin Sodium (Lovenox) 30 mg DAILY SC Last administered on 02/05/17 08:47 ; Admin Dose 30 MG; Start 02/01/17 at 16:00 Filgrastim 480 mcg 480 mcg DAILY@17 SC Last administered on 02/03/17 17:55; Admin Dose 480 MCG; Start 02/01/17 at 17:00 Ampicillin 50 ml @ 100 mls/hr Q8 IVPB Last administered on 02/05/17 21:04; Admin Dose 100 MLS/HR; Start 02/03/17 at 22:00 Metronidazole (Flagyl 500 Mg (Pmx)) 100 ml @ 100 mls/hr Q8 IVPB Last administered on 02/05/17 21:04; Admin Dose 100 MLS/HR; Start 02/03/17 at 22:00 Lactobacillus Acidophilus 1 each 1 each BID PO Last administered on 02/05/17 20:26; Admin Dose 1 EACH; Start 02/03/17 at 21:00 Colistimethate Sodium/Sodium Chloride (Coly-Mycin/NS) 100 ml @ 200 mls/hr Q12 IVPB Last administered on 02/05/17 20:19; Admin Dose 200 MLS/HR; Start at 21:00 Bisacodyl (Dulcolax Supp) 10 mg BID PRN [place] CONSTIPATION; Start 02/04/17 at 19: 30 Sodium Biphosphate/ Sodium Phosphate (Fleet Enema) 133 ml BID PRN [place] CONSTIPATION; Start 02/04/17 at 19:30 Docusate Sodium (Colace) 100 mg BID PRN PO CONSTIPATION; Start 02/04/17 at 19: 30 MOIRA BIRMINGHAM MD Feb 05, 2017 21:39
[2017-02-06] VITALS (13 sets, daily range): BP systolic 94–135; BP diastolic 52–72; PULSE 85–130; RESP 16–21
[2017-02-06] MEDS: ONDANSETRON 4 MG INJ IV SCH ×4 (00:04→17:56)
[2017-02-06] MEDS: ACETAMINOPHEN 1000MG/100ML IV 100 ML IVPB SCH ×5 (00:04→20:17)
[2017-02-06] MEDS: HYDROmorphONE 1 MG/ML SYG IV PRN ×5 (00:09→16:44)
[2017-02-06] MEDS: AMPICILLIN 1 GM/NS (PMX) 50 ML IVPB SCH ×3 (05:10→21:38)
[2017-02-06] MEDS: metroNIDAZOLE 500 MG/NS (PMX) 100 ML IVPB SCH ×3 (05:10→21:38)
[2017-02-06] MEDS: SOD CHLORIDE 0.9% 1,000 ML IV SCH ×3 (06:00→17:56)
[2017-02-06] MEDS: PANTOPRAZOLE (EC) 40 MG TAB PO SCH (06:00)
[2017-02-06] MEDS: LEVALBUTEROL (NEB) 0.63 MG/3 ML AMP HHN PRN (06:18)
[2017-02-06] MEDS: IPRATROPIUM (NEB) 0.5 MG/2.5 ML AMP HHN PRN (06:18)
[2017-02-06 07:07] LABS: ABNORMAL IP MESSAGE 1; BASOPHILS % 0.3 % (0.0-2.0); HEMATOCRIT 27.5 % (42.0-52.0); LYMPHOCYTES # 0.6 10^3/ul (0.8-2.9); LYMPHOCYTES % 4.9 % (15.0-51.0); MEAN CORPUSCULAR HEMOGLOBIN 28.8 pg (29.0-33.0); MEAN CORPUSCULAR HGB CONC 32.7 g/dl (32.0-37.0); MEAN CORPUSCULAR VOLUME 88.1 fl (82.0-101.0); MEAN PLATELET VOLUME 11.7 fl (7.4-10.4); MONOCYTE # 0.9 10^3/ul (0.3-0.9); MONOCYTES % 7.3 % (0.0-11.0); NEUTROPHILS % 83.2 % (39.0-77.0); NUCLEATED RED BLOOD CELLS% 0.3 /100WBC (0.0-0.0); PLATELET COUNT 118 10^3/UL (140-415); POSITIVE DIFF @See below; RED BLOOD COUNT 3.12 10^6/ul (4.70-6.10); RED CELL DISTRIBUTION WIDTH 18.5 % (11.5-14.5)
[2017-02-06 07:23] LABS: ALBUMIN 2.6 g/dl (3.3-4.9); ALBUMIN/GLOBULIN RATIO 0.89; BILIRUBIN,INDIRECT 0.7 mg/dl (0-1.1); BILIRUBIN,TOTAL 0.7 mg/dl (0.2-1.3); CALCIUM 8.8 mg/dl (8.4-10.2); CREATININE 0.66 mg/dl (0.61-1.24); TOTAL PROTEIN 5.5 g/dl (6.1-8.1)
[2017-02-06] MEDS: CALCIUM CARBONATE 1.25 GM TAB PO SCH ×2 (09:03→21:37)
[2017-02-06] MEDS: COLISTIMETHATE 150 MG in SOD CHLORIDE 0.9% 100 ML IVPB SCH ×2 (09:03→21:37)
[2017-02-06] MEDS: predniSONE 20 MG TAB PO SCH (09:04)
[2017-02-06] MEDS: ATENOLOL 25 MG TAB PO SCH ×2 (09:06→21:00)
[2017-02-06] MEDS: COLISTIMETHATE (25 MG/ML INHAL SYG) NEB SCH ×2 (09:09→20:49)
[2017-02-06] MEDS: ENOXAPARIN 30 MG/0.3 ML SYG SC SCH (09:51)
[2017-02-06] MEDS: L ACIDOPHIL/B LACTIS/B LONGUM CAPSULE PO SCH ×2 (09:53→21:37)
--- NOTE | 2017-02-06 10:46 | CONS ---
Date/Time of Note Date/Time of Note DATE: 02/06/17 TIME: 10:44 Assessment/Plan Assessment/Plan Chief Complaint/Hosp Course IMP: 1.Tachycardia- S Tach-NL Ft4. Likely driven by fevers/NL EF by echo this admit. Currently improved 2.lymphoma 3.HTN 4.anemia 5.obesity 6.Hyponatremia-recurrent 7.Pancreatitis-improved 8. Fevers Recc: -Tele -serial ecg's -continue BB as tolerated only -Continue abx's and f/u cx data -IVF hydration -ongoing onc eval and treatment Problems: Consultation Date/Type/Reason Admit Date/Time Jan 09, 2017 at 19:08 Initial Consult Date 01/15/17 Type of Consultation: cardiology Reason for Consultation tachycardia Referring Provider: YAO RAHMAN Exam/Review of Systems Vital Signs Vitals Vital Signs Date Time Temp Pulse Resp B/P Pulse Ox O2 Delivery O2 Flow Rate FiO2 02/06/17 08:21 100.1 124 18 108/52 99 02/06/17 06:18 Nasal Cannula 2.0 Intake and Output 02/05/17 02/05/17 02/06/17 15:00 23:00 07:00 Intake Total 250 ml 674 ml Balance 250 ml 674 ml Exam Review of Systems: CONSTITUTIONAL: No fevers, chills. PULMONARY: No sob CARDIOVASCULAR: No chest pain/palpitations GASTROINTESTINAL: No nausea/vomiting. GENITOURINARY: No hematuria/dysuria. MUSCULOSKELETAL: No myagias/arthalgias. PSYCHIATRIC: The patient denies depression. NEUROLOGIC: No weakness Constitutional: alert, oriented Psych: no complaints Head: normocephalic ENMT: mucosa pink and moist Neck: jvd, supple Respiratory: diminished breath sounds (at bases/B) Cardiovascular: regular rate and rhythm Gastrointestinal: non-tender, soft Musculoskeletal: muscle tone (normal) Extremities: edema (none) Neurological: other (No focvalo deficits) Results Result Diagram: 02/06/17 0602/06/17 06 Results 24 hrs Laboratory Tests Test 02/06/17 06:05 White Blood Count 12.0 #H Red Blood Count 3.12 L Hemoglobin 9.0 L Hematocrit 27.5 L Mean Corpuscular Volume 88.1 Mean Corpuscular Hemoglobin 28.8 L Mean Corpuscular Hemoglobin Concent 32.7 Red Cell Distribution Width 18.5 H Platelet Count 118 L Mean Platelet Volume 11.7 H Neutrophils % 83.2 H Lymphocytes % 4.9 L Monocytes % 7.3 Eosinophils % 0.0 Basophils % 0.3 Nucleated Red Blood Cells % 0.3 H Neutrophils # (Manual) 9.9 H Lymphocytes # 0.6 L Monocytes # 0.9 Eosinophils # 0.0 Basophils # 0.0 Nucleated Red Blood Cells # 0.0 Sodium Level 129 L Potassium Level 3.0 L Chloride Level 92 L Carbon Dioxide Level 28 Anion Gap 12 Blood Urea Nitrogen 6 L Creatinine 0.66 Glucose Level 78 Calcium Level 8.8 Total Bilirubin 0.7 Direct Bilirubin 0.00 Indirect Bilirubin 0.7 Aspartate Amino Transf (AST/SGOT) 73 H Alanine Aminotransferase (ALT/SGPT) 43 Alkaline Phosphatase 191 H Total Protein 5.5 L Albumin 2.6 L Globulin 2.90 Albumin/Globulin Ratio 0.89 Medications Medications Current Medications Docusate Sodium (Colace) 100 mg Q12H PRN PO CONSTIPATION Last administered on 00:29; Admin Dose 100 MG; Start 01/09/17 at 19:30 Magnesium Hydroxide (Milk Of Mag) 30 ml DAILY PRN PO CONSTIPATION Last administered on 02/05/17 00:29; Admin Dose 30 ML; Start 01/09/17 at 19:30 Sodium Biphosphate/ Sodium Phosphate (Fleet Enema) 133 ml DAILY PRN IN CONSTIPATION; Start 01/09/17 at 19:30 Nitroglycerin (Nitroglycerin (Sl Tab) 0.4 Mg) 1 tab Q5M PRN SL ANGINA; Start at 19:30 Miscellaneous Information (Pending Santyl Order For Wound Care) This patient aranda... PRN PRN XX WOUND CARE; Start 01/10/17 at 03:30 Ondansetron HCl 4 mg 4 mg Q6 IV Last administered on 02/06/17 05:14; Admin Dose 4 MG; Start 01/10/17 at 15:30 Acetaminophen (Ofirmev 1000mg/ 100ml Iv) 100 ml @ 400 mls/hr Q6 IVPB Last administered on 02/06/17 05:09; Admin Dose 400 MLS/HR; Start 01/10/17 at 16:30 IV Flush (NS 10 ml) 10 ml PRN PRN IV IV PROTOCOL; Start 01/10/17 at 20:30 Prednisone 10 mg 10 mg DAILY PO Last administered on 02/06/17 09:04; Admin Dose 10 MG; Start 01/15/17 at 09:00 Trimethoprim/ Sulfamethoxazole 25 ml/Dextrose 525 ml @ 343.333 mls/hr Q8 IVPB Last administered on 01/31/17 05:21; Admin Dose 343.333 MLS/HR; Start 01/19/17 at 13:30; Status Future Hold Hydromorphone HCl/ Dextrose (Dilaudid/D5W) 50 ml @ 2 mls/hr TITRATE IV Last administered on 02/05/17 17:00; Admin Dose 2 MLS/HR; Start 01/23/17 at 16:30 Ergocalciferol (Drisdol) 50,000 unit We@09 PO Last administered on 02/01/17 09 :44; Admin Dose 50,000 UNIT; Start 01/25/17 at 09:00 Calcium Carbonate (Oyster Shell Calcium) 1.25 gm BID PO Last administered on 09:03; Admin Dose 1.25 GM; Start 01/24/17 at 21:00 Pantoprazole (Protonix Tab) 40 mg DAILY@06 PO Last administered on 02/05/17 05 :31; Admin Dose 40 MG; Start 01/26/17 at 06:00 Hydromorphone HCl (Dilaudid) 1 mg Q2 PRN IV PAIN Last administered on 06:09; Admin Dose 1 MG; Start 01/25/17 at 21:00 Atenolol 25 mg 25 mg BID PO Last administered on 02/06/17 09:06; Admin Dose 25 MG; Start 01/30/17 at 12:00 Sodium Chloride (NS) 1,000 ml @ 100 mls/hr Q10H IV Last administered on 06:00; Admin Dose 100 MLS/HR; Start 02/01/17 at 08:00 Enoxaparin Sodium (Lovenox) 30 mg DAILY SC Last administered on 02/06/17 09:51 ; Admin Dose 30 MG; Start 02/01/17 at 16:00 Filgrastim 480 mcg 480 mcg DAILY@17 SC Last administered on 02/03/17 17:55; Admin Dose 480 MCG; Start 02/01/17 at 17:00 Ampicillin 50 ml @ 100 mls/hr Q8 IVPB Last administered on 02/06/17 05:10; Admin Dose 100 MLS/HR; Start 02/03/17 at 22:00 Metronidazole (Flagyl 500 Mg (Pmx)) 100 ml @ 100 mls/hr Q8 IVPB Last administered on 02/06/17 05:10; Admin Dose 100 MLS/HR; Start 02/03/17 at 22:00 Lactobacillus Acidophilus 1 each 1 each BID PO Last administered on 02/06/17 09:53; Admin Dose 1 EACH; Start 02/03/17 at 21:00 Colistimethate Sodium/Sodium Chloride (Coly-Mycin/NS) 100 ml @ 200 mls/hr Q12 IVPB Last administered on 02/06/17 09:03; Admin Dose 200 MLS/HR; Start at 21:00 Bisacodyl (Dulcolax Supp) 10 mg BID PRN IN CONSTIPATION; Start 02/04/17 at 19: 30 Sodium Biphosphate/ Sodium Phosphate (Fleet Enema) 133 ml BID PRN IN CONSTIPATION; Start 02/04/17 at 19:30 Docusate Sodium (Colace) 100 mg BID PRN PO CONSTIPATION; Start 02/04/17 at 19: 30 LARRY SANTANA Feb 06, 2017 10:46
[2017-02-06] MEDS ORDERED: ALTEPLASE (CATHFLO) 2 MG INJ CATHETER PRN (12:00)
--- NOTE | 2017-02-06 12:44 | PN ---
Date/Time of Note Date/Time of Note DATE: 02/06/17 TIME: 12:42 Assessment/Plan Lines/Catheters IV Catheter Type (from Nrs): PICC Line Sierra in Place (from Nrs): No Assessment/Plan Assessment/Plan [facility] Progress Note Date of Service: 02/06/2017 Place of service: [facility] 5W tele Today's Assessment & Plan: Overall stable. Fever noted yesterday and likely multifactorial. Abdomen remains somewhat benign. No indication for acute surgical intervention. With above assessment, I've recommended the followin. Continue aggressive medical management 2. Cont full liquid diet and advance slowly 3. Follow GIs recommendations 4. If it would make a difference in management, may consider percutaneous biopsy of segment 6 area of abnormality in the liver 5. Multidisciplinary tumor board presentation and discussions 6. Consideration for clinical trials once improved medically 7. LFT's, amylase and lipase checks tomorrow with labs 8. Will likely benefit from aggressive bowel regimen (some of the pain likely from constipation) 9. Percutaneous cholecystostomy drain care teachings to patient and family Thank you very much for having me involved in the care of this very pleasant patient and wonderful family. If you have any questions, please feel free to contact me at [phone]. Nature of presenting problem: High severity Please note that, given the extensive number of diagnoses or management options , the extensive amount and/or complexity of data needed to be reviewed, and high risk of complications and/or morbidity or mortality, this qualifies as high complexity type of decision-making. Disclaimer: Inadvertent spelling and grammatical errors are likely due to EHR/ dictation software use and do not reflect on the quality of delivered patient care. Also, please note that the electronic time recorded on this node does not necessarily reflect the actual time of the visit. 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 HIDA scan positive 01/28/2017. Status post percutaneous cholecystostomy drain placement 02/02/2017. Status post CT-guided left flank subcutaneous nodule biopsy [facility] 01/12/2017. Comorbidities: 1. BMI 40.7 2. Small right pleural effusion with atelectasis and right lung base pneumonia. 3. Large B cell anaplastic lymphoma; status post chemo 1 month prior to presentation 4. Sepsis 5. Hyponatremia 6. Hypokalemia 7. Acute renal injury 8. Status post percutaneous cholecystostomy drain placement 02/02/2017 Subjective: No major events or complaints; reported feeling better after drain placement and no significant abdominal pain and under control with medications; no significant reported nausea or vomiting and no major diarrhea; no sob or cp; + flatus; + BM; minimal to no activity. Fever noted yesterday. Patient reported feeling well. Objective: Vitals: See below I's & O's: See below Exam: GENERAL: On exam, the patient was lying in bed and appeared to be comfortable and in no acute distress. Less diaphoretic. ABDOMEN: Soft, minimal to no tenderness and nondistended. There are no peritoneal signs or guarding. Perc GB drain with thick green bilious output. SKIN: Skin appears to be pink and feels warm to touch. NEUROLOGIC: Patient is awake, alert, and follows commands appropriately. Labs: See below Exam/Review of Systems Vital Signs Vitals Vital Signs Date Time Temp Pulse Resp B/P Pulse Ox O2 Delivery O2 Flow Rate FiO2 02/06/17 11:06 100.8 130 21 108/64 89 02/06/17 06:18 Nasal Cannula 2.0 Intake and Output 02/05/17 02/05/17 02/06/17 15:00 23:00 07:00 Intake Total 250 ml 674 ml Balance 250 ml 674 ml Results Result Diagram: 02/06/17 0605 02/06/17 0605 LENKA HERNANDEZ M.D. Feb 06, 2017 12:44
[2017-02-06] MEDS ORDERED: POTASSIUM CHLORIDE (SR) 20 MEQ TAB PO ONE (13:00)
--- NOTE | 2017-02-06 14:22 | CONS ---
Date/Time of Note Date/Time of Note DATE: 02/06/17 TIME: 14:22 Assessment/Plan Assessment/Plan Chief Complaint/Hosp Course Anaplastic B-cell Lymphoma pt was dx'd with lymphoma a year and half ago , it turned into an aggressive type. His last chemo was a month ago and hadn't had since due to experiencing similar presenting symptoms. record from pt's oncologist Kain Wisdom - P Left flank mass, CT-guided core needle biopsies with touch imprints: Completely necrotic tissue, insufficient for pathologic evaluation. PER PT REPORT- reportedly scheduled for change in therapy due to what appears to be lack of adequate response CT ABD/PEL/CHEST:(+) multiple areas of nodules likely lymphoma, LEUKOPENIA IN PT WITH HNL POST CHEMO AND WITH SEPTIC PICTURE MONITOR BLOOD COUNT CLOSELY POST NEUPOGEN WBC- FLUCTUATING IMPROVED ON NEUPOGEN X 2 DC NEUPOGEN PANCYTOPENIA POST CHEMO CONT TO MONITOR PRBC NEEDED s/p Sepsis w/worsening lactic acidosis 2/2 PNA + Left flank/hip/leg decub Resolving HCAP => CT ABD/PEL/CHEST: (+) PNA * 01/24 RESPIRATORY CULTURE Final 3+ KLEB PNEUMONIAE CARBAPENEMASE ID W-UP pancreatitis. Abd Pain with N/V: 2/2 known lymphoma - pain mgmt - Anti-emetics Hyponatremia and Hypokalemia: 2/2 vomiting - NS IVF - replete K+ as needed Presumed RAMU: likely pre-renal 2/2 vomiting - cont IVF for now Problems: Consultation Date/Type/Reason Admit Date/Time Jan 09, 2017 at 19:08 Initial Consult Date 01/10/17 Type of Consultation: [facility] Referring Provider: YAO RAHMAN 24 HR Interval Summary Free Text/Dictation IMPROVING Exam/Review of Systems Vital Signs Vitals Vital Signs Date Time Temp Pulse Resp B/P Pulse Ox O2 Delivery O2 Flow Rate FiO2 02/06/17 12:12 108 02/06/17 11:06 100.8 21 108/64 89 02/06/17 09:20 Nasal Cannula 2.0 Intake and Output 02/05/17 02/05/17 02/06/17 15:00 23:00 07:00 Intake Total 250 ml 674 ml Balance 250 ml 674 ml Exam GENERAL: 31 yo M obese HEENT:Unremarkable, no thrush NECK: Supple CHEST: Rise symmetrical without dyspnea on observation ABDOMEN: Soft, obese, VIKTOR drain w/dark brown liquid filling bulb EXTREMITIES: Warm, moves extremities SKIN: Tattoos Results Result Diagram: 02/06/17 0605 02/06/17 0605 Results 24 hrs Laboratory Tests Test 02/06/17 06:05 White Blood Count 12.0 #H Red Blood Count 3.12 L Hemoglobin 9.0 L Hematocrit 27.5 L Mean Corpuscular Volume 88.1 Mean Corpuscular Hemoglobin 28.8 L Mean Corpuscular Hemoglobin Concent 32.7 Red Cell Distribution Width 18.5 H Platelet Count 118 L Mean Platelet Volume 11.7 H Neutrophils % 83.2 H Lymphocytes % 4.9 L Monocytes % 7.3 Eosinophils % 0.0 Basophils % 0.3 Nucleated Red Blood Cells % 0.3 H Neutrophils # (Manual) 9.9 H Lymphocytes # 0.6 L Monocytes # 0.9 Eosinophils # 0.0 Basophils # 0.0 Nucleated Red Blood Cells # 0.0 Sodium Level 129 L Potassium Level 3.0 L Chloride Level 92 L Carbon Dioxide Level 28 Anion Gap 12 Blood Urea Nitrogen 6 L Creatinine 0.66 Glucose Level 78 Calcium Level 8.8 Total Bilirubin 0.7 Direct Bilirubin 0.00 Indirect Bilirubin 0.7 Aspartate Amino Transf (AST/SGOT) 73 H Alanine Aminotransferase (ALT/SGPT) 43 Alkaline Phosphatase 191 H Total Protein 5.5 L Albumin 2.6 L Globulin 2.90 Albumin/Globulin Ratio 0.89 Medications Medications Current Medications Docusate Sodium (Colace) 100 mg Q12H PRN PO CONSTIPATION Last administered on 00:29; Admin Dose 100 MG; Start 01/09/17 at 19:30 Magnesium Hydroxide (Milk Of Mag) 30 ml DAILY PRN PO CONSTIPATION Last administered on 02/05/17 00:29; Admin Dose 30 ML; Start 01/09/17 at 19:30 Sodium Biphosphate/ Sodium Phosphate (Fleet Enema) 133 ml DAILY PRN [place] CONSTIPATION; Start 01/09/17 at 19:30 Nitroglycerin (Nitroglycerin (Sl Tab) 0.4 Mg) 1 tab Q5M PRN SL ANGINA; Start at 19:30 Miscellaneous Information (Pending [facility] Order For Wound Care) This patient aranda... PRN PRN XX WOUND CARE; Start 01/10/17 at 03:30 Ondansetron HCl 4 mg 4 mg Q6 IV Last administered on 02/06/17 11:15; Admin Dose 4 MG; Start 01/10/17 at 15:30 Acetaminophen (Ofirmev 1000mg/ 100ml Iv) 100 ml @ 400 mls/hr Q6 IVPB Last administered on 02/06/17 11:22; Admin Dose 400 MLS/HR; Start 01/10/17 at 16:30 IV Flush (NS 10 ml) 10 ml PRN PRN IV IV PROTOCOL; Start 01/10/17 at 20:30 Prednisone 10 mg 10 mg DAILY PO Last administered on 02/06/17 09:04; Admin Dose 10 MG; Start 01/15/17 at 09:00 Trimethoprim/ Sulfamethoxazole 25 ml/Dextrose 525 ml @ 343.333 mls/hr Q8 IVPB Last administered on 01/31/17 05:21; Admin Dose 343.333 MLS/HR; Start 01/19/17 at 13:30; Status Future Hold Hydromorphone HCl/ Dextrose (Dilaudid/D5W) 50 ml @ 2 mls/hr TITRATE IV Last administered on 02/05/17 17:00; Admin Dose 2 MLS/HR; Start 01/23/17 at 16:30 Ergocalciferol (Drisdol) 50,000 unit We@09 PO Last administered on 02/01/17 09 :44; Admin Dose 50,000 UNIT; Start 01/25/17 at 09:00 Calcium Carbonate (Oyster Shell Calcium) 1.25 gm BID PO Last administered on 09:03; Admin Dose 1.25 GM; Start 01/24/17 at 21:00 Pantoprazole (Protonix Tab) 40 mg DAILY@06 PO Last administered on 02/05/17 05 :31; Admin Dose 40 MG; Start 01/26/17 at 06:00 Hydromorphone HCl (Dilaudid) 1 mg Q2 PRN IV PAIN Last administered on 11:22; Admin Dose 1 MG; Start 01/25/17 at 21:00 Atenolol 25 mg 25 mg BID PO Last administered on 02/06/17 09:06; Admin Dose 25 MG; Start 01/30/17 at 12:00 Sodium Chloride (NS) 1,000 ml @ 100 mls/hr Q10H IV Last administered on 06:00; Admin Dose 100 MLS/HR; Start 02/01/17 at 08:00 Enoxaparin Sodium (Lovenox) 30 mg DAILY SC Last administered on 02/06/17 09:51 ; Admin Dose 30 MG; Start 02/01/17 at 16:00 Filgrastim 480 mcg 480 mcg DAILY@17 SC Last administered on 02/03/17 17:55; Admin Dose 480 MCG; Start 02/01/17 at 17:00 Ampicillin 50 ml @ 100 mls/hr Q8 IVPB Last administered on 02/06/17 13:47; Admin Dose 100 MLS/HR; Start 02/03/17 at 22:00 Metronidazole (Flagyl 500 Mg (Pmx)) 100 ml @ 100 mls/hr Q8 IVPB Last administered on 02/06/17 13:47; Admin Dose 100 MLS/HR; Start 02/03/17 at 22:00 Lactobacillus Acidophilus 1 each 1 each BID PO Last administered on 02/06/17 09:53; Admin Dose 1 EACH; Start 02/03/17 at 21:00 Colistimethate Sodium/Sodium Chloride (Coly-Mycin/NS) 100 ml @ 200 mls/hr Q12 IVPB Last administered on 02/06/17 09:03; Admin Dose 200 MLS/HR; Start at 21:00 Bisacodyl (Dulcolax Supp) 10 mg BID PRN [place] CONSTIPATION; Start 02/04/17 at 19: 30 Sodium Biphosphate/ Sodium Phosphate (Fleet Enema) 133 ml BID PRN [place] CONSTIPATION; Start 02/04/17 at 19:30 Docusate Sodium (Colace) 100 mg BID PRN PO CONSTIPATION; Start 02/04/17 at 19: 30 MOIRA BIRMINGHAM MD Feb 06, 2017 14:22
--- NOTE | 2017-02-06 15:28 | PN ---
Date/Time of Note Date/Time of Note DATE: 02/06/17 TIME: 15:20 Assessment/Plan VTE Prophylaxis VTE Prophylaxis Intervention: LMWH Lines/Catheters IV [facility] Saline Lock Urinary Cath still in place: No Assessment/Plan Chief Complaint/Hosp Course Gen:awake,alert , diaphoretic Neck:supple heart:Tacycardic Lungs: dec breath sounds bases Abdomen: mild TTP eXT: edema PICC line Multiple wounds 31 yo male with anaplastic B Cell lymphoma who presented with abdominal pain, found to have 1. pancreatitis on pain control with DIilaudid 2 Fevers 102>104 s/p Cholecystomy however recurent fevers ?source 3 Hyponatremia on bactrim with d5 w> stopped 130 again hyponatremic 4 Acute renal injury resolved 5 Right pleural effusion with atelectasis and right lung base pneumonia, resolved. 6. Large B cell anaplastic lymphoma; status post chemo 1 month, leukopenia now neutropenic 7. 2 Hypoparathyroidism On Calcitrol and Caco3 8 Severe anemia 9 Morbid obesity 10 Skin wounds 11 hypokalemia Assessment/Plan 1. on ampicillin/colitin/caspofungin/flagyl [address] Carlos reg re eval of wounds 4 c/w NS at 100 cc/hr 5 Neupogen per Onc 6 Dilaudid for pain 7 GI/DVT prophylaxsis 8 Apppreciate all consults 9 condition guarded 10 K repleted Problems: Subjective 24 Hr Interval Summary Free Text/Dictation Continued to have fevers Tacycardic Exam/Review of Systems Vital Signs Vitals Vital Signs Date Time Temp Pulse Resp B/P Pulse Ox O2 Delivery O2 Flow Rate FiO2 02/06/17 12:12 108 02/06/17 11:06 100.8 21 108/64 89 02/06/17 09:20 Nasal Cannula 2.0 Intake and Output 02/05/17 02/05/17 02/06/17 15:00 23:00 07:00 Intake Total 250 ml 674 ml Balance 250 ml 674 ml Results Result Diagram: 02/06/17 0605 02/06/17 0605 Results 24 hrs Laboratory Tests Test 02/06/17 06:05 White Blood Count 12.0 #H Red Blood Count 3.12 L Hemoglobin 9.0 L Hematocrit 27.5 L Mean Corpuscular Volume 88.1 Mean Corpuscular Hemoglobin 28.8 L Mean Corpuscular Hemoglobin Concent 32.7 Red Cell Distribution Width 18.5 H Platelet Count 118 L Mean Platelet Volume 11.7 H Neutrophils % 83.2 H Lymphocytes % 4.9 L Monocytes % 7.3 Eosinophils % 0.0 Basophils % 0.3 Nucleated Red Blood Cells % 0.3 H Neutrophils # (Manual) 9.9 H Lymphocytes # 0.6 L Monocytes # 0.9 Eosinophils # 0.0 Basophils # 0.0 Nucleated Red Blood Cells # 0.0 Sodium Level 129 L Potassium Level 3.0 L Chloride Level 92 L Carbon Dioxide Level 28 Anion Gap 12 Blood Urea Nitrogen 6 L Creatinine 0.66 Glucose Level 78 Calcium Level 8.8 Total Bilirubin 0.7 Direct Bilirubin 0.00 Indirect Bilirubin 0.7 Aspartate Amino Transf (AST/SGOT) 73 H Alanine Aminotransferase (ALT/SGPT) 43 Alkaline Phosphatase 191 H Total Protein 5.5 L Albumin 2.6 L Globulin 2.90 Albumin/Globulin Ratio 0.89 Medications Medications Current Medications Docusate Sodium (Colace) 100 mg Q12H PRN PO CONSTIPATION Last administered on 00:29; Admin Dose 100 MG; Start 01/09/17 at 19:30 Magnesium Hydroxide (Milk Of Mag) 30 ml DAILY PRN PO CONSTIPATION Last administered on 02/05/17 00:29; Admin Dose 30 ML; Start 01/09/17 at 19:30 Sodium Biphosphate/ Sodium Phosphate (Fleet Enema) 133 ml DAILY PRN [place] CONSTIPATION; Start 01/09/17 at 19:30 Nitroglycerin (Nitroglycerin (Sl Tab) 0.4 Mg) 1 tab Q5M PRN SL ANGINA; Start at 19:30 Miscellaneous Information (Pending [facility] Order For Wound Care) This patient aranda... PRN PRN XX WOUND CARE; Start 01/10/17 at 03:30 Ondansetron HCl 4 mg 4 mg Q6 IV Last administered on 02/06/17 11:15; Admin Dose 4 MG; Start 01/10/17 at 15:30 Acetaminophen (Ofirmev 1000mg/ 100ml Iv) 100 ml @ 400 mls/hr Q6 IVPB Last administered on 02/06/17 11:22; Admin Dose 400 MLS/HR; Start 01/10/17 at 16:30 IV Flush (NS 10 ml) 10 ml PRN PRN IV IV PROTOCOL; Start 01/10/17 at 20:30 Prednisone 10 mg 10 mg DAILY PO Last administered on 02/06/17 09:04; Admin Dose 10 MG; Start 01/15/17 at 09:00 Trimethoprim/ Sulfamethoxazole 25 ml/Dextrose 525 ml @ 343.333 mls/hr Q8 IVPB Last administered on 01/31/17 05:21; Admin Dose 343.333 MLS/HR; Start 01/19/17 at 13:30; Status Future Hold Hydromorphone HCl/ Dextrose (Dilaudid/D5W) 50 ml @ 2 mls/hr TITRATE IV Last administered on 02/05/17 17:00; Admin Dose 2 MLS/HR; Start 01/23/17 at 16:30 Ergocalciferol (Drisdol) 50,000 unit We@09 PO Last administered on 02/01/17 09 :44; Admin Dose 50,000 UNIT; Start 01/25/17 at 09:00 Calcium Carbonate (Oyster Shell Calcium) 1.25 gm BID PO Last administered on 09:03; Admin Dose 1.25 GM; Start 01/24/17 at 21:00 Pantoprazole (Protonix Tab) 40 mg DAILY@06 PO Last administered on 02/05/17 05 :31; Admin Dose 40 MG; Start 01/26/17 at 06:00 Hydromorphone HCl (Dilaudid) 1 mg Q2 PRN IV PAIN Last administered on 11:22; Admin Dose 1 MG; Start 01/25/17 at 21:00 Atenolol 25 mg 25 mg BID PO Last administered on 02/06/17 09:06; Admin Dose 25 MG; Start 01/30/17 at 12:00 Sodium Chloride (NS) 1,000 ml @ 100 mls/hr Q10H IV Last administered on 06:00; Admin Dose 100 MLS/HR; Start 02/01/17 at 08:00 Enoxaparin Sodium (Lovenox) 30 mg DAILY SC Last administered on 02/06/17 09:51 ; Admin Dose 30 MG; Start 02/01/17 at 16:00 Filgrastim 480 mcg 480 mcg DAILY@17 SC Last administered on 02/03/17 17:55; Admin Dose 480 MCG; Start 02/01/17 at 17:00 Ampicillin 50 ml @ 100 mls/hr Q8 IVPB Last administered on 02/06/17 13:47; Admin Dose 100 MLS/HR; Start 02/03/17 at 22:00 Metronidazole (Flagyl 500 Mg (Pmx)) 100 ml @ 100 mls/hr Q8 IVPB Last administered on 02/06/17 13:47; Admin Dose 100 MLS/HR; Start 02/03/17 at 22:00 Lactobacillus Acidophilus 1 each 1 each BID PO Last administered on 02/06/17 09:53; Admin Dose 1 EACH; Start 02/03/17 at 21:00 Colistimethate Sodium/Sodium Chloride (Coly-Mycin/NS) 100 ml @ 200 mls/hr Q12 IVPB Last administered on 02/06/17 09:03; Admin Dose 200 MLS/HR; Start at 21:00 Bisacodyl (Dulcolax Supp) 10 mg BID PRN [place] CONSTIPATION; Start 02/04/17 at 19: 30 Sodium Biphosphate/ Sodium Phosphate (Fleet Enema) 133 ml BID PRN RI CONSTIPATION; Start 02/04/17 at 19:30 Docusate Sodium (Colace) 100 mg BID PRN PO CONSTIPATION; Start 02/04/17 at 19: 30 TAMARA HARTMANN MD Feb 06, 2017 15:28
[2017-02-06] MEDS ORDERED: POTASSIUM CHLORIDE 30 MEQ in SOD CHLORIDE 0.9% 150 ML IVPB ONE (16:00)
[2017-02-06] MEDS: FILGRASTIM 480 MCG INJ SC SCH (17:56)
--- NOTE | 2017-02-06 19:14 | PN ---
Date/Time of Note Date/Time of Note DATE: 02/06/17 TIME: 19:12 Assessment/Plan VTE Prophylaxis VTE Prophylaxis Intervention: SCD's Lines/Catheters [facility] Saline Lock Urinary Cath still in place: No Assessment/Plan Assessment/Plan Assessment: * Acute pancreatitis, etiology unclear/improved * Cholelithiasis * Post cholecystostomy * Mild abnormality liver function tests with no evidence of biliary pathology * Anaplastic B-cell lymphoma/aggressive behavior * Sepsis/pneumonia/improved Plan: * continue present management * pain control * Monitor hemoglobin and hematocrit * Continue monitor lipase and abdominal pain Free Text/Dictation * Course reviewed with RN * patient seen and examined * tolerating diet * Less abdominal pain Exam Constitutional: alert, frail Neck: non-tender, supple Respiratory: diminished breath sounds, normal air movement Cardiovascular: nl pulses, regular rate and rhythm Gastrointestinal: distended, soft, mild epigastric tenderness No rebound or guarding Musculoskeletal: muscle weakness Extremities: edema, pitting pedal edema Neurological: nl mental status, nl speech Skin: nl turgor, No rash or lesions Lymph: nl lymph nodes Exam/Review of Systems Vital Signs Vitals Vital Signs Date Time Temp Pulse Resp B/P Pulse Ox O2 Delivery O2 Flow Rate FiO2 02/06/17 16:01 87 02/06/17 15:26 97.7 16 94/52 97 02/06/17 09:20 Nasal Cannula 2.0 Intake and Output 02/05/17 02/05/17 02/06/17 15:00 23:00 07:00 Intake Total 250 ml 674 ml Balance 250 ml 674 ml Results Result Diagram: 02/06/17 0605 02/06/17 0605 Results 24 hrs Laboratory Tests Test 02/06/17 06:05 White Blood Count 12.0 #H Red Blood Count 3.12 L Hemoglobin 9.0 L Hematocrit 27.5 L Mean Corpuscular Volume 88.1 Mean Corpuscular Hemoglobin 28.8 L Mean Corpuscular Hemoglobin Concent 32.7 Red Cell Distribution Width 18.5 H Platelet Count 118 L Mean Platelet Volume 11.7 H Neutrophils % 83.2 H Lymphocytes % 4.9 L Monocytes % 7.3 Eosinophils % 0.0 Basophils % 0.3 Nucleated Red Blood Cells % 0.3 H Neutrophils # (Manual) 9.9 H Lymphocytes # 0.6 L Monocytes # 0.9 Eosinophils # 0.0 Basophils # 0.0 Nucleated Red Blood Cells # 0.0 Sodium Level 129 L Potassium Level 3.0 L Chloride Level 92 L Carbon Dioxide Level 28 Anion Gap 12 Blood Urea Nitrogen 6 L Creatinine 0.66 Glucose Level 78 Calcium Level 8.8 Total Bilirubin 0.7 Direct Bilirubin 0.00 Indirect Bilirubin 0.7 Aspartate Amino Transf (AST/SGOT) 73 H Alanine Aminotransferase (ALT/SGPT) 43 Alkaline Phosphatase 191 H Total Protein 5.5 L Albumin 2.6 L Globulin 2.90 Albumin/Globulin Ratio 0.89 Medications Medications Current Medications Docusate Sodium (Colace) 100 mg Q12H PRN PO CONSTIPATION Last administered on 00:29; Admin Dose 100 MG; Start 01/09/17 at 19:30 Magnesium Hydroxide (Milk Of Mag) 30 ml DAILY PRN PO CONSTIPATION Last administered on 02/05/17 00:29; Admin Dose 30 ML; Start 01/09/17 at 19:30 Sodium Biphosphate/ Sodium Phosphate (Fleet Enema) 133 ml DAILY PRN [place] CONSTIPATION; Start 01/09/17 at 19:30 Nitroglycerin (Nitroglycerin (Sl Tab) 0.4 Mg) 1 tab Q5M PRN SL ANGINA; Start at 19:30 Miscellaneous Information (Pending [facility] Order For Wound Care) This patient aranda... PRN PRN XX WOUND CARE; Start 01/10/17 at 03:30 Ondansetron HCl 4 mg 4 mg Q6 IV Last administered on 02/06/17 17:56; Admin Dose 4 MG; Start 01/10/17 at 15:30 Acetaminophen (Ofirmev 1000mg/ 100ml Iv) 100 ml @ 400 mls/hr Q6 IVPB Last administered on 02/06/17 11:22; Admin Dose 400 MLS/HR; Start 01/10/17 at 16:30 IV Flush (NS 10 ml) 10 ml PRN PRN IV IV PROTOCOL; Start 01/10/17 at 20:30 Prednisone 10 mg 10 mg DAILY PO Last administered on 02/06/17 09:04; Admin Dose 10 MG; Start 01/15/17 at 09:00 Trimethoprim/ Sulfamethoxazole 25 ml/Dextrose 525 ml @ 343.333 mls/hr Q8 IVPB Last administered on 01/31/17 05:21; Admin Dose 343.333 MLS/HR; Start 01/19/17 at 13:30; Status Future Hold Hydromorphone HCl/ Dextrose (Dilaudid/D5W) 50 ml @ 2 mls/hr TITRATE IV Last administered on 02/05/17 17:00; Admin Dose 2 MLS/HR; Start 01/23/17 at 16:30 Ergocalciferol (Drisdol) 50,000 unit We@09 PO Last administered on 02/01/17 09 :44; Admin Dose 50,000 UNIT; Start 01/25/17 at 09:00 Calcium Carbonate (Oyster Shell Calcium) 1.25 gm BID PO Last administered on 09:03; Admin Dose 1.25 GM; Start 01/24/17 at 21:00 Pantoprazole (Protonix Tab) 40 mg DAILY@06 PO Last administered on 02/05/17 05 :31; Admin Dose 40 MG; Start 01/26/17 at 06:00 Hydromorphone HCl (Dilaudid) 1 mg Q2 PRN IV PAIN Last administered on 16:44; Admin Dose 1 MG; Start 01/25/17 at 21:00 Atenolol 25 mg 25 mg BID PO Last administered on 02/06/17 09:06; Admin Dose 25 MG; Start 01/30/17 at 12:00 Sodium Chloride (NS) 1,000 ml @ 100 mls/hr Q10H IV Last administered on 06:00; Admin Dose 100 MLS/HR; Start 02/01/17 at 08:00 Enoxaparin Sodium (Lovenox) 30 mg DAILY SC Last administered on 02/06/17 09:51 ; Admin Dose 30 MG; Start 02/01/17 at 16:00 Filgrastim 480 mcg 480 mcg DAILY@17 SC Last administered on 02/06/17 17:56; Admin Dose 480 MCG; Start 02/01/17 at 17:00 Ampicillin 50 ml @ 100 mls/hr Q8 IVPB Last administered on 02/06/17 13:47; Admin Dose 100 MLS/HR; Start 02/03/17 at 22:00 Metronidazole (Flagyl 500 Mg (Pmx)) 100 ml @ 100 mls/hr Q8 IVPB Last administered on 02/06/17 13:47; Admin Dose 100 MLS/HR; Start 02/03/17 at 22:00 Lactobacillus Acidophilus 1 each 1 each BID PO Last administered on 02/06/17 09:53; Admin Dose 1 EACH; Start 02/03/17 at 21:00 Colistimethate Sodium/Sodium Chloride (Coly-Mycin/NS) 100 ml @ 200 mls/hr Q12 IVPB Last administered on 02/06/17 09:03; Admin Dose 200 MLS/HR; Start at 21:00 Bisacodyl (Dulcolax Supp) 10 mg BID PRN [place] CONSTIPATION; Start 02/04/17 at 19: 30 Sodium Biphosphate/ Sodium Phosphate (Fleet Enema) 133 ml BID PRN [place] CONSTIPATION; Start 02/04/17 at 19:30 Docusate Sodium (Colace) 100 mg BID PRN PO CONSTIPATION; Start 02/04/17 at 19: 30 FAUSTINO VALDIVIA MD Feb 06, 2017 19:14
[2017-02-07] VITALS (11 sets, daily range): BP systolic 88–130; BP diastolic 48–76; PULSE 80–96; RESP 16–21
[2017-02-07] MEDS: ACETAMINOPHEN 1000MG/100ML IV 100 ML IVPB SCH ×5 (00:24→23:25)
[2017-02-07] MEDS: SOD CHLORIDE 0.9% 1,000 ML IV SCH (00:24)
[2017-02-07] MEDS: ONDANSETRON 4 MG INJ IV SCH ×5 (00:24→23:25)
[2017-02-07] MEDS: HYDROmorphONE 50 MG in DEXTROSE 5% 45 ML IV SCH ×2 (02:45→19:21)
[2017-02-07] MEDS: HYDROmorphONE 1 MG/ML SYG IV PRN ×8 (02:47→23:07)
--- NOTE | 2017-02-07 02:47 | PN ---
DATE: SUBJECTIVE DATA: Patient continues to spike fevers with a T-max of 103 last night. OBJECTIVE DATA: VITAL SIGNS: T-current 97.7, pulse 92, respirations 16, blood pressure 94/52, saturation 97 percent. LABORATORY AND DIAGNOSTIC DATA: WBC 12, H and H 9 and 27.5, platelets 119, neutrophils 83.2. BUN 6, creatinine 0.66. MICROBIOLOGY: Blood culture and urine culture since February 01 remain negative. A cystostomy tube fluid cultures negative. INDWELLING: Patient has a PICC line. ANTIMICROBIALS: He is on IV colistin, ampicillin, Flagyl. He is also on Neupogen. PHYSICAL EXAMINATION: GENERAL: This is a well-developed, chronically ill-appearing, middle-aged man, who is awake, in no distress. HEENT: Head atraumatic, normocephalic. Sclerae anicteric. Buccal mucosa dry. NECK: Supple. RESPIRATORY: Chest rise symmetrical. Breath sounds diminished at bases. HEART: S1, S2. ABDOMEN: Soft, bowel sounds present. EXTREMITIES: Without cyanosis. SKIN: With multiple necrotic wounds. ASSESSMENT: 1. Persistent fevers, multifactorial, possibly secondary to underlying malignancy. Could be secondary to multiple necrotic infected wounds. 2. Acute cholecystitis, status post cholecystostomy tube placement. 3. Status post acute pancreatitis. 4. B-cell lymphoma. 5. Status post neutropenia, now with leukocytosis, on Neupogen. PLAN: We are going to repeat blood cultures and urine culture. We are going to order chest x-ray in a.m. Continue on current antimicrobials. Consider surgical evaluation for possible wound debridement. Dictated By: Felicia Hdz NP /paulette/meche /Document#: [id number] DREW
[2017-02-07] MEDS: AMPICILLIN 1 GM/NS (PMX) 50 ML IVPB SCH ×3 (04:28→21:51)
[2017-02-07] MEDS: metroNIDAZOLE 500 MG/NS (PMX) 100 ML IVPB SCH ×3 (05:14→21:51)
[2017-02-07] MEDS: PANTOPRAZOLE (EC) 40 MG TAB PO SCH (06:17)
[2017-02-07 07:02] LABS: ABNORMAL IP MESSAGE 1; BASOPHIL # 0.1 10^3/ul (0.0-0.1); BASOPHILS % 0.6 % (0.0-2.0); EOSINOPHILS # 0.1 10^3/ul (0.0-0.5); EOSINOPHILS % 0.5 % (0.0-7.0); HEMATOCRIT 23.9 % (42.0-52.0); HEMOGLOBIN 7.7 g/dl (14.0-18.0); LYMPHOCYTES # 0.3 10^3/ul (0.8-2.9); LYMPHOCYTES % 1.7 % (15.0-51.0); MEAN CORPUSCULAR HEMOGLOBIN 28.8 pg (29.0-33.0); MEAN CORPUSCULAR HGB CONC 32.2 g/dl (32.0-37.0); MEAN CORPUSCULAR VOLUME 89.5 fl (82.0-101.0); MEAN PLATELET VOLUME 11.3 fl (7.4-10.4); MONOCYTE # 0.9 10^3/ul (0.3-0.9); MONOCYTES % 4.6 % (0.0-11.0); PLATELET COUNT 98 10^3/UL (140-415); POSITIVE DIFF @See below; RED BLOOD COUNT 2.67 10^6/ul (4.70-6.10); RED CELL DISTRIBUTION WIDTH 19.3 % (11.5-14.5)
[2017-02-07 07:18] LABS: NEUTROPHILS % 90.2 % (39.0-77.0)
[2017-02-07] MEDS: ATENOLOL 25 MG TAB PO SCH ×2 (08:28→20:21)
[2017-02-07] MEDS: CALCIUM CARBONATE 1.25 GM TAB PO SCH ×2 (08:36→20:20)
[2017-02-07] MEDS: predniSONE 20 MG TAB PO SCH (08:36)
[2017-02-07] MEDS: L ACIDOPHIL/B LACTIS/B LONGUM CAPSULE PO SCH ×2 (08:36→20:20)
[2017-02-07] MEDS: COLISTIMETHATE 150 MG in SOD CHLORIDE 0.9% 100 ML IVPB SCH ×2 (08:37→20:21)
[2017-02-07] MEDS: COLISTIMETHATE (25 MG/ML INHAL SYG) NEB SCH ×2 (08:44→20:36)
[2017-02-07] MEDS: ENOXAPARIN 30 MG/0.3 ML SYG SC SCH (09:04)
--- NOTE | 2017-02-07 09:06 | RADRPT ---
PROCEDURE: XR Chest. CLINICAL INDICATION: Pneumonia TECHNIQUE: A single AP view of the chest was obtained. COMPARISON: Chest x-ray dated 01/31/2017 FINDINGS: There is a right upper extremity PICC line with tip near the cavoatrial junction. There are persistent right lung alveolar opacities. No pleural effusion or pneumothorax is seen. T he cardiomediastinal silhouette is within normal limits for size. The osseous structures are unrema rkable. IMPRESSION: 1. Persistent diffuse right lung alveolar opacities, likely reflecting multilobar pneumonia. No sig nificant interval change. 2. Right upper extremity PICC line with tip near the cavoatrial junction. RPTAT: HH .Emily Castillo MD, MD Date Time Electronically viewed and signed by .Emily Castillo MD, MD on 02/07/2017 09:06 .G/
--- NOTE | 2017-02-07 09:08 | CONS ---
Date/Time of Note Date/Time of Note DATE: 02/07/17 TIME: 09:06 Assessment/Plan Assessment/Plan Additional Assessment/Plan .Tachycardia- S Tach-NLEF 55%. Likely driven by fevers/NL EF by echo this admit. Currently improved - better now - BETTER NOW (satblea t low 100s) - overall unchanged. 2.lymphoma - on therapy per oncology team - Rx with hematology/oncology team 3.HTN - well rx - on low side now, but no Sx. 4.anemia- replace as needed 5.obesity 6.Hyponatremia-improved - better now 7.Pancreatitis-improved - better now Consultation Date/Type/Reason Admit Date/Time Jan 09, 2017 at 19:08 Initial Consult Date 01/15/17 Type of Consultation: [facility] Referring Provider: YAO RAHMAN 24 HR Interval Summary Free Text/Dictation NO acute events - BP on low side - bt no Sx - sinus/sinus tach on tele. ROS: No fever, no chills, no nausea, no vomiting, no diarrhea/constipation No recent weight changes No chest pain, no PND, no orthopnea No dizziness, blurred vision No thirst, no heat or cold intolerance Exam/Review of Systems Vital Signs Vitals Vital Signs Date Time Temp Pulse Resp B/P Pulse Ox O2 Delivery O2 Flow Rate FiO2 02/07/17 09:05 87 02/07/17 08:45 99 3.0 02/07/17 08:45 18 Nasal Cannula 02/07/17 07:39 96.5 88/48 Intake and Output 02/06/17 02/06/17 02/07/17 14:59 22:59 06:59 Intake Total 350 ml 1080 ml 2550 ml Output Total 1900 ml 2300 ml Balance 350 ml -820 ml 250 ml Exam General: WN/WD/NAD, AOx 3 HEENT: Unicetric/atraumatic/EOMI (follows commands) NECK: JVD elevated, no thyromegaly Lymph: no lymphadenopathy HEART: regular with no S3, II/ systolic murmur at apex LUNGS: Coarse sounds ABD: soft, NT, ND, +BS : Intact Neuro: non focal SKIN: chronic changes EXT: trace edema Results Result Diagram: 02/07/17 0616 02/06/17 0605 Results 24 hrs Laboratory Tests Test 02/07/17 06:16 White Blood Count 19.0 #H Red Blood Count 2.67 L Hemoglobin 7.7 L Hematocrit 23.9 L Mean Corpuscular Volume 89.5 Mean Corpuscular Hemoglobin 28.8 L Mean Corpuscular Hemoglobin Concent 32.2 Red Cell Distribution Width 19.3 H Platelet Count 98 L Mean Platelet Volume 11.3 H Neutrophils % 90.2 H Lymphocytes % 1.7 L Monocytes % 4.6 Eosinophils % 0.5 Basophils % 0.6 Nucleated Red Blood Cells % 0.0 Neutrophils # (Manual) 17.1 H Lymphocytes # 0.3 L Monocytes # 0.9 Eosinophils # 0.1 Basophils # 0.1 Nucleated Red Blood Cells # 0.0 Medications Medications Current Medications Docusate Sodium (Colace) 100 mg Q12H PRN PO CONSTIPATION Last administered on 00:29; Admin Dose 100 MG; Start 01/09/17 at 19:30 Magnesium Hydroxide (Milk Of Mag) 30 ml DAILY PRN PO CONSTIPATION Last administered on 02/05/17 00:29; Admin Dose 30 ML; Start 01/09/17 at 19:30 Sodium Biphosphate/ Sodium Phosphate (Fleet Enema) 133 ml DAILY PRN [place] CONSTIPATION; Start 01/09/17 at 19:30 Nitroglycerin (Nitroglycerin (Sl Tab) 0.4 Mg) 1 tab Q5M PRN SL ANGINA; Start at 19:30 [facility]isc[facility] This patient aranda... PRN PRN XX WOUND CARE; Start 01/10/17 at 03:30 Ondansetron HCl 4 mg 4 mg Q6 IV Last administered on 02/07/17 06:16; Admin Dose 4 MG; Start 01/10/17 at 15:30 Acetaminophen (Ofirmev 1000mg/ 100ml Iv) 100 ml @ 400 mls/hr Q6 IVPB Last administered on 02/07/17 06:17; Admin Dose 400 MLS/HR; Start 01/10/17 at 16:30 IV Flush (NS 10 ml) 10 ml PRN PRN IV IV PROTOCOL; Start 01/10/17 at 20:30 Prednisone 10 mg 10 mg DAILY PO Last administered on 02/07/17 08:36; Admin Dose 10 MG; Start 01/15/17 at 09:00 Trimethoprim/ Sulfamethoxazole 25 ml/Dextrose 525 ml @ 343.333 mls/hr Q8 IVPB Last administered on 01/31/17 05:21; Admin Dose 343.333 MLS/HR; Start 01/19/17 at 13:30; Status Future Hold Hydromorphone HCl/ Dextrose (Dilaudid/D5W) 50 ml @ 2 mls/hr TITRATE IV Last administered on 02/05/17 17:00; Admin Dose 2 MLS/HR; Start 01/23/17 at 16:30 Ergocalciferol (Drisdol) 50,000 unit We@09 PO Last administered on 02/01/17 09 :44; Admin Dose 50,000 UNIT; Start 01/25/17 at 09:00 Calcium Carbonate (Oyster Shell Calcium) 1.25 gm BID PO Last administered on 08:36; Admin Dose 1.25 GM; Start 01/24/17 at 21:00 Pantoprazole (Protonix Tab) 40 mg DAILY@06 PO Last administered on 02/07/17 06 :17; Admin Dose 40 MG; Start 01/26/17 at 06:00 Hydromorphone HCl (Dilaudid) 1 mg Q2 PRN IV PAIN Last administered on 08:39; Admin Dose 1 MG; Start 01/25/17 at 21:00 Atenolol 25 mg 25 mg BID PO Last administered on 02/06/17 09:06; Admin Dose 25 MG; Start 01/30/17 at 12:00 Sodium Chloride (NS) 1,000 ml @ 100 mls/hr Q10H IV Last administered on 00:24; Admin Dose 100 MLS/HR; Start 02/01/17 at 08:00 Enoxaparin Sodium (Lovenox) 30 mg DAILY SC Last administered on 02/07/17 09:04 ; Admin Dose 30 MG; Start 02/01/17 at 16:00 Filgrastim 480 mcg 480 mcg DAILY@17 SC Last administered on 02/06/17 17:56; Admin Dose 480 MCG; Start 02/01/17 at 17:00 Ampicillin 50 ml @ 100 mls/hr Q8 IVPB Last administered on 02/07/17 04:28; Admin Dose 100 MLS/HR; Start 02/03/17 at 22:00 Metronidazole (Flagyl 500 Mg (Pmx)) 100 ml @ 100 mls/hr Q8 IVPB Last administered on 02/07/17 05:14; Admin Dose 100 MLS/HR; Start 02/03/17 at 22:00 Lactobacillus Acidophilus 1 each 1 each BID PO Last administered on 02/07/17 08:36; Admin Dose 1 EACH; Start 02/03/17 at 21:00 Colistimethate Sodium/Sodium Chloride (Coly-Mycin/NS) 100 ml @ 200 mls/hr Q12 IVPB Last administered on 02/07/17 08:37; Admin Dose 200 MLS/HR; Start at 21:00 Bisacodyl (Dulcolax Supp) 10 mg BID PRN [place] CONSTIPATION; Start 02/04/17 at 19: 30 Sodium Biphosphate/ Sodium Phosphate (Fleet Enema) 133 ml BID PRN AK CONSTIPATION; Start 02/04/17 at 19:30 Docusate Sodium (Colace) 100 mg BID PRN PO CONSTIPATION; Start 02/04/17 at 19: 30 VIOLET BLUM MD Feb 07, 2017 09:07
--- NOTE | 2017-02-07 11:32 | PN ---
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 pancreatitis on pain control with DIilaudid s/p Cholecystomy 2 Fevers 102>104 s/p Cholecystomy however recurent fevers ?source ? wounds 3 Hyponatremia on bactrim with d5 w> stopped 130 again h 4 Acute renal injury resolved 5 Right pleural effusion with atelectasis and right lung base pneumonia, resolved. 6. Large B cell anaplastic lymphoma; status post chemo 1 month, leukopenia now neutropenic 7. 2 Hypoparathyroidism On Calcitrol and Caco3 8 Severe anemia 9 Morbid obesity 10 Skin wounds 11 hypokalemia Assessment/Plan 1. on ampicillin/colitin/caspofungin/flagyl [address] Carlos reg re eval of wounds> surgical debridement on 4 d/c fluids 5 d/c Neupogen as wbc 19,000 6 Dilaudid for pain 7 GI/DVT prophylaxsis 8 Apppreciate all consults 9 condition guarded 10 K replete Problems: Subjective 24 Hr Interval Summary Free Text/Dictation Pt feels better today Fevers subsiding Exam/Review of Systems Vital Signs Vitals Vital Signs Date Time Temp Pulse Resp B/P Pulse Ox O2 Delivery O2 Flow Rate FiO2 02/07/17 09:05 87 02/07/17 08:45 99 3.0 02/07/17 08:45 18 Nasal Cannula 02/07/17 07:39 96.5 88/48 Intake and Output 02/06/17 02/06/17 02/07/17 15:00 23:00 07:00 Intake Total 350 ml 1080 ml 2550 ml Output Total 1900 ml 2300 ml Balance 350 ml -820 ml 250 ml Results Result Diagram: 02/07/17 0616 02/06/17 0605 Results 24 hrs Laboratory Tests Test 02/07/17 06:16 White Blood Count 19.0 #H Red Blood Count 2.67 L Hemoglobin 7.7 L Hematocrit 23.9 L Mean Corpuscular Volume 89.5 Mean Corpuscular Hemoglobin 28.8 L Mean Corpuscular Hemoglobin Concent 32.2 Red Cell Distribution Width 19.3 H Platelet Count 98 L Mean Platelet Volume 11.3 H Neutrophils % 90.2 H Lymphocytes % 1.7 L Monocytes % 4.6 Eosinophils % 0.5 Basophils % 0.6 Nucleated Red Blood Cells % 0.0 Neutrophils # (Manual) 17.1 H Lymphocytes # 0.3 L Monocytes # 0.9 Eosinophils # 0.1 Basophils # 0.1 Nucleated Red Blood Cells # 0.0 Medications Medications Current Medications Docusate Sodium (Colace) 100 mg Q12H PRN PO CONSTIPATION Last administered on 00:29; Admin Dose 100 MG; Start 01/09/17 at 19:30 Magnesium Hydroxide (Milk Of Mag) 30 ml DAILY PRN PO CONSTIPATION Last administered on 02/05/17 00:29; Admin Dose 30 ML; Start 01/09/17 at 19:30 Sodium Biphosphate/ Sodium Phosphate (Fleet Enema) 133 ml DAILY PRN [place] CONSTIPATION; Start 01/09/17 at 19:30 Nitroglycerin (Nitroglycerin (Sl Tab) 0.4 Mg) 1 tab Q5M PRN SL ANGINA; Start at 19:30 [facility] This patient aranda... PRN PRN XX WOUND CARE; Start 01/10/17 at 03:30 Ondansetron HCl 4 mg 4 mg Q6 IV Last administered on 02/07/17 06:16; Admin Dose 4 MG; Start 01/10/17 at 15:30 Acetaminophen (Ofirmev 1000mg/ 100ml Iv) 100 ml @ 400 mls/hr Q6 IVPB Last administered on 02/07/17 06:17; Admin Dose 400 MLS/HR; Start 01/10/17 at 16:30 IV Flush (NS 10 ml) 10 ml PRN PRN IV IV PROTOCOL; Start 01/10/17 at 20:30 Prednisone 10 mg 10 mg DAILY PO Last administered on 02/07/17 08:36; Admin Dose 10 MG; Start 01/15/17 at 09:00 Trimethoprim/ Sulfamethoxazole 25 ml/Dextrose 525 ml @ 343.333 mls/hr Q8 IVPB Last administered on 01/31/17 05:21; Admin Dose 343.333 MLS/HR; Start 01/19/17 at 13:30; Status Future Hold Hydromorphone HCl/ Dextrose (Dilaudid/D5W) 50 ml @ 2 mls/hr TITRATE IV Last administered on 02/05/17 17:00; Admin Dose 2 MLS/HR; Start 01/23/17 at 16:30 Ergocalciferol (Drisdol) 50,000 unit We@09 PO Last administered on 02/01/17 09 :44; Admin Dose 50,000 UNIT; Start 01/25/17 at 09:00 Calcium Carbonate (Oyster Shell Calcium) 1.25 gm BID PO Last administered on 08:36; Admin Dose 1.25 GM; Start 01/24/17 at 21:00 Pantoprazole (Protonix Tab) 40 mg DAILY@06 PO Last administered on 02/07/17 06 :17; Admin Dose 40 MG; Start 01/26/17 at 06:00 Hydromorphone HCl (Dilaudid) 1 mg Q2 PRN IV PAIN Last administered on 08:39; Admin Dose 1 MG; Start 01/25/17 at 21:00 Atenolol 25 mg 25 mg BID PO Last administered on 02/06/17 09:06; Admin Dose 25 MG; Start 01/30/17 at 12:00 Sodium Chloride (NS) 1,000 ml @ 100 mls/hr Q10H IV Last administered on 00:24; Admin Dose 100 MLS/HR; Start 02/01/17 at 08:00 Enoxaparin Sodium (Lovenox) 30 mg DAILY SC Last administered on 02/07/17 09:04 ; Admin Dose 30 MG; Start 02/01/17 at 16:00 Filgrastim 480 mcg 480 mcg DAILY@17 SC Last administered on 02/06/17 17:56; Admin Dose 480 MCG; Start 02/01/17 at 17:00 Ampicillin 50 ml @ 100 mls/hr Q8 IVPB Last administered on 02/07/17 04:28; Admin Dose 100 MLS/HR; Start 02/03/17 at 22:00 Metronidazole (Flagyl 500 Mg (Pmx)) 100 ml @ 100 mls/hr Q8 IVPB Last administered on 02/07/17 05:14; Admin Dose 100 MLS/HR; Start 02/03/17 at 22:00 Lactobacillus Acidophilus 1 each 1 each BID PO Last administered on 02/07/17 08:36; Admin Dose 1 EACH; Start 02/03/17 at 21:00 Colistimethate Sodium/Sodium Chloride (Coly-Mycin/NS) 100 ml @ 200 mls/hr Q12 IVPB Last administered on 02/07/17 08:37; Admin Dose 200 MLS/HR; Start at 21:00 Bisacodyl (Dulcolax Supp) 10 mg BID PRN MD CONSTIPATION; Start 02/04/17 at 19: 30 Sodium Biphosphate/ Sodium Phosphate (Fleet Enema) 133 ml BID PRN MD CONSTIPATION; Start 02/04/17 at 19:30 Docusate Sodium (Colace) 100 mg BID PRN PO CONSTIPATION; Start 02/04/17 at 19: 30 TAMARA HARTMANN MD Feb 07, 2017 11:32
--- NOTE | 2017-02-07 12:23 | PN ---
Date/Time of Note Date/Time of Note DATE: 02/07/17 TIME: 12:20 Assessment/Plan Lines/Catheters IV Catheter Type (from Nrsg): PICC Line [place] in Place (from Nrsg): No Assessment/Plan Assessment/Plan [facility] Progress Note Date of Service: 02/07/2017 Place of service: [facility] 5W tele Today's Assessment & Plan: Overall stable. Abdomen remains somewhat benign. Sacral and superficial wounds can benefit from operative debridement. Patient tentatively on the schedule for [place] for this purpose. With above assessment, I've recommended the followin. Continue aggressive medical management 2. Cont full liquid diet and advance slowly 3. Follow GIs recommendations 4. If it would make a difference in management, may consider percutaneous biopsy of segment 6 area of abnormality in the liver 5. Multidisciplinary tumor board presentation and discussions 6. Consideration for clinical trials once improved medically 7. LFT's, amylase and lipase checks tomorrow with labs 8. Will likely benefit from aggressive bowel regimen (some of the pain likely from constipation) 9. Percutaneous cholecystostomy drain care teachings to patient and family 10. Scheduled for surgical debridement of sacral and other superficial wounds in the OR on [place] 02/09/17 Thank you very much for having me involved in the care of this very pleasant patient and wonderful family. If you have any questions, please feel free to contact me at [phone]. Nature of presenting problem: High severity Please note that, given the extensive number of diagnoses or management options , the extensive amount and/or complexity of data needed to be reviewed, and high risk of complications and/or morbidity or mortality, this qualifies as high complexity type of decision-making. Disclaimer: Inadvertent spelling and grammatical errors are likely due to EHR/ dictation software use and do not reflect on the quality of delivered patient care. Also, please note that the electronic time recorded on this node does not necessarily reflect the actual time of the visit. 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 HIDA scan positive 01/28/2017. Status post percutaneous cholecystostomy drain placement 02/02/2017. Status post CT-guided left flank subcutaneous nodule biopsy [facility] 01/12/2017. Comorbidities: 1. BMI 40.7 2. Small right pleural effusion with atelectasis and right lung base pneumonia. 3. Large B cell anaplastic lymphoma; status post chemo 1 month prior to presentation 4. Sepsis 5. Hyponatremia 6. Hypokalemia 7. Acute renal injury 8. Status post percutaneous cholecystostomy drain placement 02/02/2017 Subjective: No major events or complaints; reported feeling ok and no significant abdominal pain and under control with medications; no significant reported nausea or vomiting and no major diarrhea; no sob or cp; + flatus; + BM; minimal to no activity. Fever noted yesterday. Patient reported feeling well. Objective: Vitals: See below I's & O's: See below Exam: GENERAL: On exam, the patient was lying in bed and appeared to be comfortable and in no acute distress. Not very diaphoretic. ABDOMEN: Soft, minimal to no tenderness and nondistended. There are no peritoneal signs or guarding. Perc GB drain with thick green bilious output. SKIN: Skin appears to be pink and feels warm to touch. Number of superficial wounds on the extremities and on the sacral region with some necrotic tissue/ scab on the skin NEUROLOGIC: Patient is awake, alert, and follows commands appropriately. Labs: See below Exam/Review of Systems Vital Signs Vitals Vital Signs Date Time Temp Pulse Resp B/P Pulse Ox O2 Delivery O2 Flow Rate FiO2 02/07/17 12:16 93 02/07/17 11:20 96.4 21 130/76 98 02/07/17 08:45 3.0 02/07/17 08:45 Nasal Cannula Intake and Output 02/06/17 02/06/17 02/07/17 15:00 23:00 07:00 Intake Total 350 ml 1080 ml 2550 ml Output Total 1900 ml 2300 ml Balance 350 ml -820 ml 250 ml Results Result Diagram: 02/07/17 0616 02/06/17 0605 LENKA HERNANDEZ M.D. Feb 07, 2017 12:23
[2017-02-07 12:54] LABS: CALCIUM 9.1 mg/dl (8.4-10.2); CREATININE 0.69 mg/dl (0.61-1.24); POTASSIUM 3.2 mmol/L (3.5-5.1)
--- NOTE | 2017-02-07 12:57 | CONS ---
Date/Time of Note Date/Time of Note DATE: 02/07/17 TIME: 12:53 Assessment/Plan Assessment/Plan Chief Complaint/Hosp Course SUBJECTIVE DATA: Alert, ambulating with PT, denies pain, looks comfortable, no fevers over night Temperature 97 pulse 99 respirations 20 blood pressure 130/76 saturation 98% on room air WBC 19 H&H 7.7 and 23.9 platelets 98 neutrophils 90.2 BUN 11 creatinine 0.69 MICROBIOLOGY: Blood culture and urine culture since February 01 remain negative. A cystostomy tube fluid cultures negative. INDWELLING: Patient has a PICC line. ANTIMICROBIALS: IV colistin, ampicillin, Flagyl PHYSICAL EXAMINATION: GENERAL: This is a well-developed, chronically ill-appearing, middle-aged man, who is awake, in no distress. HEENT: Head atraumatic, normocephalic. Sclerae anicteric. Buccal mucosa dry. NECK: Supple. RESPIRATORY: Chest rise symmetrical. Breath sounds diminished at bases. HEART: S1, S2. ABDOMEN: Soft, bowel sounds present. EXTREMITIES: Without cyanosis. SKIN: With multiple necrotic wounds. ASSESSMENT: 1. Persistent fevers, multifactorial, possibly secondary to underlying malignancy. Could be secondary to multiple necrotic infected wounds. 2. Acute cholecystitis, status post cholecystostomy tube placement. 3. Status post acute pancreatitis. 4. B-cell lymphoma. 5. Status post neutropenia, now with leukocytosis 2 to Neupogen. PLAN: Clinically improving, pending repeat cx's, continue abx, f/u oncology rec -s, will ask pulmonary team to evaluate his cxr for poss PNA, wound care per surgical rec-s, poss debridement MIR Marroquin Problems: Consultation Date/Type/Reason Admit Date/Time Jan 09, 2017 at 19:08 Initial Consult Date 01/15/17 Type of Consultation: ID Referring Provider: YAO RAHMAN Exam/Review of Systems Vital Signs Vitals Vital Signs Date Time Temp Pulse Resp B/P Pulse Ox O2 Delivery O2 Flow Rate FiO2 02/07/17 12:16 93 02/07/17 11:20 96.4 21 130/76 98 02/07/17 08:45 3.0 02/07/17 08:45 Nasal Cannula Intake and Output 02/06/17 02/06/17 02/07/17 15:00 23:00 07:00 Intake Total 350 ml 1080 ml 2550 ml Output Total 1900 ml 2300 ml Balance 350 ml -820 ml 250 ml Results Result Diagram: 02/07/17 0616 02/06/17 0605 Results 24 hrs Laboratory Tests Test 02/07/17 06:16 White Blood Count 19.0 #H Red Blood Count 2.67 L Hemoglobin 7.7 L Hematocrit 23.9 L Mean Corpuscular Volume 89.5 Mean Corpuscular Hemoglobin 28.8 L Mean Corpuscular Hemoglobin Concent 32.2 Red Cell Distribution Width 19.3 H Platelet Count 98 L Mean Platelet Volume 11.3 H Neutrophils % 90.2 H Lymphocytes % 1.7 L Monocytes % 4.6 Eosinophils % 0.5 Basophils % 0.6 Nucleated Red Blood Cells % 0.0 Neutrophils # (Manual) 17.1 H Lymphocytes # 0.3 L Monocytes # 0.9 Eosinophils # 0.1 Basophils # 0.1 Nucleated Red Blood Cells # 0.0 Medications Medications Current Medications Docusate Sodium (Colace) 100 mg Q12H PRN PO CONSTIPATION Last administered on 00:29; Admin Dose 100 MG; Start 01/09/17 at 19:30 Magnesium Hydroxide (Milk Of Mag) 30 ml DAILY PRN PO CONSTIPATION Last administered on 02/05/17 00:29; Admin Dose 30 ML; Start 01/09/17 at 19:30 Sodium Biphosphate/ Sodium Phosphate (Fleet Enema) 133 ml DAILY PRN NM CONSTIPATION; Start 01/09/17 at 19:30 Nitroglycerin (Nitroglycerin (Sl Tab) 0.4 Mg) 1 tab Q5M PRN SL ANGINA; Start at 19:30 Miscellaneous Information (Pending Santyl Order For Wound Care) This patient aranda... PRN PRN XX WOUND CARE; Start 01/10/17 at 03:30 Ondansetron HCl 4 mg 4 mg Q6 IV Last administered on 02/07/17 12:06; Admin Dose 4 MG; Start 01/10/17 at 15:30 Acetaminophen (Ofirmev 1000mg/ 100ml Iv) 100 ml @ 400 mls/hr Q6 IVPB Last administered on 02/07/17 12:06; Admin Dose 400 MLS/HR; Start 01/10/17 at 16:30 IV Flush (NS 10 ml) 10 ml PRN PRN IV IV PROTOCOL; Start 01/10/17 at 20:30 Prednisone 10 mg 10 mg DAILY PO Last administered on 02/07/17 08:36; Admin Dose 10 MG; Start 01/15/17 at 09:00 Trimethoprim/ Sulfamethoxazole 25 ml/Dextrose 525 ml @ 343.333 mls/hr Q8 IVPB Last administered on 01/31/17 05:21; Admin Dose 343.333 MLS/HR; Start 01/19/17 at 13:30; Status Future Hold Hydromorphone HCl/ Dextrose (Dilaudid/D5W) 50 ml @ 2 mls/hr TITRATE IV Last administered on 02/05/17 17:00; Admin Dose 2 MLS/HR; Start 01/23/17 at 16:30 Ergocalciferol (Drisdol) 50,000 unit We@09 PO Last administered on 02/01/17 09 :44; Admin Dose 50,000 UNIT; Start 01/25/17 at 09:00 Calcium Carbonate (Oyster Shell Calcium) 1.25 gm BID PO Last administered on 08:36; Admin Dose 1.25 GM; Start 01/24/17 at 21:00 Pantoprazole (Protonix Tab) 40 mg DAILY@06 PO Last administered on 02/07/17 06 :17; Admin Dose 40 MG; Start 01/26/17 at 06:00 Hydromorphone HCl (Dilaudid) 1 mg Q2 PRN IV PAIN Last administered on 08:39; Admin Dose 1 MG; Start 01/25/17 at 21:00 Atenolol (Tenormin) 25 mg BID PO Last administered on 02/06/17 09:06; Admin Dose 25 MG; Start 01/30/17 at 12:00 Enoxaparin Sodium 30 mg 30 mg DAILY SC Last administered on 02/07/17 09:04; Admin Dose 30 MG; Start 02/01/17 at 16:00 Ampicillin 50 ml @ 100 mls/hr Q8 IVPB Last administered on 02/07/17 04:28; Admin Dose 100 MLS/HR; Start 02/03/17 at 22:00 Metronidazole (Flagyl 500 Mg (Pmx)) 100 ml @ 100 mls/hr Q8 IVPB Last administered on 02/07/17 05:14; Admin Dose 100 MLS/HR; Start 02/03/17 at 22:00 Lactobacillus Acidophilus 1 each 1 each BID PO Last administered on 02/07/17 08:36; Admin Dose 1 EACH; Start 02/03/17 at 21:00 Colistimethate Sodium/Sodium Chloride (Coly-Mycin/NS) 100 ml @ 200 mls/hr Q12 IVPB Last administered on 02/07/17 08:37; Admin Dose 200 MLS/HR; Start at 21:00 Bisacodyl (Dulcolax Supp) 10 mg BID PRN NM CONSTIPATION; Start 02/04/17 at 19: 30 Sodium Biphosphate/ Sodium Phosphate (Fleet Enema) 133 ml BID PRN NM CONSTIPATION; Start 02/04/17 at 19:30 Docusate Sodium (Colace) 100 mg BID PRN PO CONSTIPATION; Start 02/04/17 at 19: 30 DEENA LOCO NP Feb 07, 2017 12:57
--- NOTE | 2017-02-07 18:07 | CONS ---
Date/Time of Note Date/Time of Note DATE: 02/07/17 TIME: 18:05 Assessment/Plan Assessment/Plan Additional Assessment/Plan Aggressive T-cell lymphoma Metastatic skin lesions Sepsis syndrome Respiratory insufficiency Continue current pain control medications no change Consultation Date/Type/Reason Admit Date/Time Jan 09, 2017 at 19:08 Initial Consult Date 01/10/17 Type of Consultation: Pain management Referring Provider: YAO RAHMAN 24 HR Interval Summary Free Text/Dictation Stating note for 01/29/2017 Has been moved out of the intensive care unit on MedSurg, doing well up ambulating with help pain well-controlled. Without nausea vomiting dizziness diplopia disorientation, constipation, sleeping well mood is good in general he is very positive. Exam/Review of Systems Vital Signs Vitals Vital Signs Date Time Temp Pulse Resp B/P Pulse Ox O2 Delivery O2 Flow Rate FiO2 02/07/17 16:18 96 02/07/17 15:46 97.5 16 121/68 99 02/07/17 08:45 3.0 02/07/17 08:45 Nasal Cannula 02/06/17 09:09 28 Intake and Output 02/06/17 02/06/17 02/07/17 15:00 23:00 07:00 Intake Total 350 ml 1080 ml 2550 ml Output Total 1900 ml 2300 ml Balance 350 ml -820 ml 250 ml Results Result Diagram: 02/07/17 0616 02/07/17 1213 Results 24 hrs Laboratory Tests Test 02/07/17 06:16 02/07/17 12:13 White Blood Count 19.0 #H Red Blood Count 2.67 L Hemoglobin 7.7 L Hematocrit 23.9 L Mean Corpuscular Volume 89.5 Mean Corpuscular Hemoglobin 28.8 L Mean Corpuscular Hemoglobin Concent 32.2 Red Cell Distribution Width 19.3 H Platelet Count 98 L Mean Platelet Volume 11.3 H Neutrophils % 90.2 H Lymphocytes % 1.7 L Monocytes % 4.6 Eosinophils % 0.5 Basophils % 0.6 Nucleated Red Blood Cells % 0.0 Neutrophils # (Manual) 17.1 H Lymphocytes # 0.3 L Monocytes # 0.9 Eosinophils # 0.1 Basophils # 0.1 Nucleated Red Blood Cells # 0.0 Sodium Level 137 Potassium Level 3.2 L Chloride Level 97 Carbon Dioxide Level 28 Anion Gap 15 Blood Urea Nitrogen 11 Creatinine 0.69 Glucose Level 115 Calcium Level 9.1 Medications Medications Current Medications Docusate Sodium (Colace) 100 mg Q12H PRN PO CONSTIPATION Last administered on 00:29; Admin Dose 100 MG; Start 01/09/17 at 19:30 Magnesium Hydroxide (Milk Of Mag) 30 ml DAILY PRN PO CONSTIPATION Last administered on 02/05/17 00:29; Admin Dose 30 ML; Start 01/09/17 at 19:30 Sodium Biphosphate/ Sodium Phosphate (Fleet Enema) [address] CONSTIPATION; Start 01/09/17 at 19:30 Nitroglycerin (Nitroglycerin (Sl Tab) 0.4 Mg) 1 tab Q5M PRN SL ANGINA; Start at 19:30 [facility] This patient aranda... PRN PRN XX WOUND CARE; Start 01/10/17 at 03:30 Ondansetron HCl 4 mg 4 mg Q6 IV Last administered on 02/07/17 12:06; Admin Dose 4 MG; Start 01/10/17 at 15:30 Acetaminophen (Ofirmev 1000mg/ 100ml Iv) 100 ml @ 400 mls/hr Q6 IVPB Last administered on 02/07/17 12:06; Admin Dose 400 MLS/HR; Start 01/10/17 at 16:30 IV Flush (NS 10 ml) 10 ml PRN PRN IV IV PROTOCOL; Start 01/10/17 at 20:30 Prednisone 10 mg 10 mg DAILY PO Last administered on 02/07/17 08:36; Admin Dose 10 MG; Start 01/15/17 at 09:00 Trimethoprim/ Sulfamethoxazole 25 ml/Dextrose 525 ml @ 343.333 mls/hr Q8 IVPB Last administered on 01/31/17 05:21; Admin Dose 343.333 MLS/HR; Start 01/19/17 at 13:30; Status Future Hold Hydromorphone HCl/ Dextrose (Dilaudid/D5W) 50 ml @ 2 mls/hr TITRATE IV Last administered on 02/05/17 17:00; Admin Dose 2 MLS/HR; Start 01/23/17 at 16:30 Ergocalciferol (Drisdol) 50,000 unit We@09 PO Last administered on 02/01/17 09 :44; Admin Dose 50,000 UNIT; Start 01/25/17 at 09:00 Calcium Carbonate (Oyster Shell Calcium) 1.25 gm BID PO Last administered on 08:36; Admin Dose 1.25 GM; Start 01/24/17 at 21:00 Pantoprazole (Protonix Tab) 40 mg DAILY@06 PO Last administered on 02/07/17 06 :17; Admin Dose 40 MG; Start 01/26/17 at 06:00 Hydromorphone HCl (Dilaudid) 1 mg Q2 PRN IV PAIN Last administered on 16:13; Admin Dose 1 MG; Start 01/25/17 at 21:00 Atenolol (Tenormin) 25 mg BID PO Last administered on 02/06/17 09:06; Admin Dose 25 MG; Start 01/30/17 at 12:00 Enoxaparin Sodium 30 mg 30 mg DAILY SC Last administered on 02/07/17 09:04; Admin Dose 30 MG; Start 02/01/17 at 16:00 Ampicillin 50 ml @ 100 mls/hr Q8 IVPB Last administered on 02/07/17 13:48; Admin Dose 100 MLS/HR; Start 02/03/17 at 22:00 Metronidazole (Flagyl 500 Mg (Pmx)) 100 ml @ 100 mls/hr Q8 IVPB Last administered on 02/07/17 13:45; Admin Dose 100 MLS/HR; Start 02/03/17 at 22:00 Lactobacillus Acidophilus 1 each 1 each BID PO Last administered on 02/07/17 08:36; Admin Dose 1 EACH; Start 02/03/17 at 21:00 Colistimethate Sodium/Sodium Chloride (Coly-Mycin/NS) 100 ml @ 200 mls/hr Q12 IVPB Last administered on 02/07/17 08:37; Admin Dose 200 MLS/HR; Start at 21:00 Bisacodyl (Dulcolax Supp) [address] CONSTIPATION; Start 02/04/17 at 19: 30 Sodium Biphosphate/ Sodium Phosphate (Fleet Enema) [address] CONSTIPATION; Start 02/04/17 at 19:30 Docusate Sodium (Colace) 100 mg BID PRN PO CONSTIPATION; Start 02/04/17 at 19: 30 SHELBY WHITE Feb 07, 2017 18:07
--- NOTE | 2017-02-07 18:10 | CONS ---
Date/Time of Note Date/Time of Note DATE: 02/07/17 TIME: 18:07 Assessment/Plan Assessment/Plan Additional Assessment/Plan Doing well pain control is under control, without nausea vomiting chest pain shortness of breath is not negotiating for higher dose of pain control medication sleep is good his mood is good Consultation Date/Type/Reason Admit Date/Time Jan 09, 2017 at 19:08 Initial Consult Date 01/10/17 Type of Consultation: Pain management Referring Provider: YAO RAHMAN Exam/Review of Systems Vital Signs Vitals Vital Signs Date Time Temp Pulse Resp B/P Pulse Ox O2 Delivery O2 Flow Rate FiO2 02/07/17 16:18 96 02/07/17 15:46 97.5 16 121/68 99 02/07/17 08:45 3.0 02/07/17 08:45 Nasal Cannula 02/06/17 09:09 28 Intake and Output 02/06/17 02/06/17 02/07/17 15:00 23:00 07:00 Intake Total 350 ml 1080 ml 2550 ml Output Total 1900 ml 2300 ml Balance 350 ml -820 ml 250 ml Exam Constitutional: alert, oriented, well developed Neurological: [employer] II-XII intact, nl mental status, nl speech, nl strength, No DTR's symmetric, No confused, No focal weakness, No lethargic, No numbness , No other, No reflexes, No unresponsive Results Result Diagram: 02/07/17 0616 02/07/17 1213 Results 24 hrs Laboratory Tests Test 02/07/17 06:16 02/07/17 12:13 White Blood Count 19.0 #H Red Blood Count 2.67 L Hemoglobin 7.7 L Hematocrit 23.9 L Mean Corpuscular Volume 89.5 Mean Corpuscular Hemoglobin 28.8 L Mean Corpuscular Hemoglobin Concent 32.2 Red Cell Distribution Width 19.3 H Platelet Count 98 L Mean Platelet Volume 11.3 H Neutrophils % 90.2 H Lymphocytes % 1.7 L Monocytes % 4.6 Eosinophils % 0.5 Basophils % 0.6 Nucleated Red Blood Cells % 0.0 Neutrophils # (Manual) 17.1 H Lymphocytes # 0.3 L Monocytes # 0.9 Eosinophils # 0.1 Basophils # 0.1 Nucleated Red Blood Cells # 0.0 Sodium Level 137 Potassium Level 3.2 L Chloride Level 97 Carbon Dioxide Level 28 Anion Gap 15 Blood Urea Nitrogen 11 Creatinine 0.69 Glucose Level 115 Calcium Level 9.1 Medications Medications Current Medications Docusate Sodium (Colace) 100 mg Q12H PRN PO CONSTIPATION Last administered on 00:29; Admin Dose 100 MG; Start 01/09/17 at 19:30 Magnesium Hydroxide (Milk Of Mag) 30 ml DAILY PRN PO CONSTIPATION Last administered on 02/05/17 00:29; Admin Dose 30 ML; Start 01/09/17 at 19:30 Sodium Biphosphate/ Sodium Phosphate (Fleet Enema) 133 ml DAILY PRN IN CONSTIPATION; Start 01/09/17 at 19:30 Nitroglycerin (Nitroglycerin (Sl Tab) 0.4 Mg) 1 tab Q5M PRN SL ANGINA; Start at 19:30 Miscellaneous Information (Pending [facility] For Wound Care) This patient aranda... PRN PRN XX WOUND CARE; Start 01/10/17 at 03:30 Ondansetron HCl 4 mg 4 mg Q6 IV Last administered on 02/07/17 12:06; Admin Dose 4 MG; Start 01/10/17 at 15:30 Acetaminophen (Ofirmev 1000mg/ 100ml Iv) 100 ml @ 400 mls/hr Q6 IVPB Last administered on 02/07/17 12:06; Admin Dose 400 MLS/HR; Start 01/10/17 at 16:30 IV Flush (NS 10 ml) 10 ml PRN PRN IV IV PROTOCOL; Start 01/10/17 at 20:30 Prednisone 10 mg 10 mg DAILY PO Last administered on 02/07/17 08:36; Admin Dose 10 MG; Start 01/15/17 at 09:00 Trimethoprim/ Sulfamethoxazole 25 ml/Dextrose 525 ml @ 343.333 mls/hr Q8 IVPB Last administered on 01/31/17 05:21; Admin Dose 343.333 MLS/HR; Start 01/19/17 at 13:30; Status Future Hold Hydromorphone HCl/ Dextrose (Dilaudid/D5W) 50 ml @ 2 mls/hr TITRATE IV Last administered on 02/05/17 17:00; Admin Dose 2 MLS/HR; Start 01/23/17 at 16:30 Ergocalciferol (Drisdol) 50,000 unit We@09 PO Last administered on 02/01/17 09 :44; Admin Dose 50,000 UNIT; Start 01/25/17 at 09:00 Calcium Carbonate (Oyster Shell Calcium) 1.25 gm BID PO Last administered on 08:36; Admin Dose 1.25 GM; Start 01/24/17 at 21:00 Pantoprazole (Protonix Tab) 40 mg DAILY@06 PO Last administered on 02/07/17 06 :17; Admin Dose 40 MG; Start 01/26/17 at 06:00 Hydromorphone HCl (Dilaudid) 1 mg Q2 PRN IV PAIN Last administered on 16:13; Admin Dose 1 MG; Start 01/25/17 at 21:00 Atenolol (Tenormin) 25 mg BID PO Last administered on 02/06/17 09:06; Admin Dose 25 MG; Start 01/30/17 at 12:00 Enoxaparin Sodium 30 mg 30 mg DAILY SC Last administered on 02/07/17 09:04; Admin Dose 30 MG; Start 02/01/17 at 16:00 Ampicillin 50 ml @ 100 mls/hr Q8 IVPB Last administered on 02/07/17 13:48; Admin Dose 100 MLS/HR; Start 02/03/17 at 22:00 Metronidazole (Flagyl 500 Mg (Pmx)) 100 ml @ 100 mls/hr Q8 IVPB Last administered on 02/07/17 13:45; Admin Dose 100 MLS/HR; Start 02/03/17 at 22:00 Lactobacillus Acidophilus 1 each 1 each BID PO Last administered on 02/07/17 08:36; Admin Dose 1 EACH; Start 02/03/17 at 21:00 Colistimethate Sodium/Sodium Chloride (Coly-Mycin/NS) 100 ml @ 200 mls/hr Q12 IVPB Last administered on 02/07/17 08:37; Admin Dose 200 MLS/HR; Start at 21:00 Bisacodyl (Dulcolax Supp) 10 mg BID PRN IN CONSTIPATION; Start 02/04/17 at 19: 30 Sodium Biphosphate/ Sodium Phosphate (Fleet Enema) 133 ml BID PRN IN CONSTIPATION; Start 02/04/17 at 19:30 Docusate Sodium (Colace) 100 mg BID PRN PO CONSTIPATION; Start 02/04/17 at 19: 30 SHELBY WHITE Feb 07, 2017 18:10
--- NOTE | 2017-02-07 22:41 | CONS ---
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 His last chemo was a month ago and hadn't had since due to experiencing similar presenting symptoms. record from pt's oncologist Kain Wisdom - P Left flank mass, CT-guided core needle biopsies with touch imprints: Completely necrotic tissue, insufficient for pathologic evaluation. PER PT REPORT- reportedly scheduled for change in therapy due to what appears to be lack of adequate response CT ABD/PEL/CHEST:(+) multiple areas of nodules likely lymphoma, LEUKOPENIA IN PT WITH HNL POST CHEMO AND WITH SEPTIC PICTURE MONITOR BLOOD COUNT CLOSELY POST NEUPOGEN WBC- FLUCTUATING IMPROVED ON NEUPOGEN X 2 DC NEUPOGEN PANCYTOPENIA POST CHEMO CONT TO MONITOR PRBC NEEDED s/p Sepsis w/worsening lactic acidosis 2/2 PNA + Left flank/hip/leg decub Resolving HCAP => CT ABD/PEL/CHEST: (+) PNA * 01/24 RESPIRATORY CULTURE Final 3+ KLEB PNEUMONIAE CARBAPENEMASE ID W-UP pancreatitis. 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 BETTER Exam/Review of Systems Vital Signs Vitals Vital Signs Date Time Temp Pulse Resp B/P Pulse Ox O2 Delivery O2 Flow Rate FiO2 02/07/17 20:38 3.0 02/07/17 20:38 90 20 99 Nasal Cannula 02/07/17 20:00 98.5 119/65 02/06/17 09:09 28 Intake and Output 02/06/17 02/06/17 02/07/17 15:00 23:00 07:00 Intake Total 350 ml 1080 ml 2550 ml Output Total 1900 ml 2300 ml Balance 350 ml -820 ml 250 ml Exam GENERAL: 31 yo M obese HEENT:Unremarkable, no thrush NECK: Supple CHEST: Rise symmetrical without dyspnea on observation ABDOMEN: Soft, obese, VIKTOR drain w/dark brown liquid filling bulb EXTREMITIES: Warm, moves extremities SKIN: Tattoos Results Result Diagram: 02/07/17 0616 02/07/17 1213 Results 24 hrs Laboratory Tests Test 02/07/17 06:16 02/07/17 12:13 White Blood Count 19.0 #H Red Blood Count 2.67 L Hemoglobin 7.7 L Hematocrit 23.9 L Mean Corpuscular Volume 89.5 Mean Corpuscular Hemoglobin 28.8 L Mean Corpuscular Hemoglobin Concent 32.2 Red Cell Distribution Width 19.3 H Platelet Count 98 L Mean Platelet Volume 11.3 H Neutrophils % 90.2 H Lymphocytes % 1.7 L Monocytes % 4.6 Eosinophils % 0.5 Basophils % 0.6 Nucleated Red Blood Cells % 0.0 Neutrophils # (Manual) 17.1 H Lymphocytes # 0.3 L Monocytes # 0.9 Eosinophils # 0.1 Basophils # 0.1 Nucleated Red Blood Cells # 0.0 Sodium Level 137 Potassium Level 3.2 L Chloride Level 97 Carbon Dioxide Level 28 Anion Gap 15 Blood Urea Nitrogen 11 Creatinine 0.69 Glucose Level 115 Calcium Level 9.1 Medications Medications Current Medications Docusate Sodium (Colace) 100 mg Q12H PRN PO CONSTIPATION Last administered on 00:29; Admin Dose 100 MG; Start 01/09/17 at 19:30 Magnesium Hydroxide (Milk Of Mag) 30 ml DAILY PRN PO CONSTIPATION Last administered on 02/05/17 00:29; Admin Dose 30 ML; Start 01/09/17 at 19:30 Sodium Biphosphate/ Sodium Phosphate (Fleet Enema) 133 ml DAILY PRN NE CONSTIPATION; Start 01/09/17 at 19:30 Nitroglycerin (Nitroglycerin (Sl Tab) 0.4 Mg) 1 tab Q5M PRN SL ANGINA; Start at 19:30 Miscellaneous Information (Pending Santyl Order For Wound Care) This patient aranda... PRN PRN XX WOUND CARE; Start 01/10/17 at 03:30 Ondansetron HCl 4 mg 4 mg Q6 IV Last administered on 02/07/17 18:25; Admin Dose 4 MG; Start 01/10/17 at 15:30 Acetaminophen (Ofirmev 1000mg/ 100ml Iv) 100 ml @ 400 mls/hr Q6 IVPB Last administered on 02/07/17 18:25; Admin Dose 400 MLS/HR; Start 01/10/17 at 16:30 IV Flush (NS 10 ml) 10 ml PRN PRN IV IV PROTOCOL; Start 01/10/17 at 20:30 Prednisone 10 mg 10 mg DAILY PO Last administered on 02/07/17 08:36; Admin Dose 10 MG; Start 01/15/17 at 09:00 Trimethoprim/ Sulfamethoxazole 25 ml/Dextrose 525 ml @ 343.333 mls/hr Q8 IVPB Last administered on 01/31/17 05:21; Admin Dose 343.333 MLS/HR; Start 01/19/17 at 13:30; Status Future Hold Hydromorphone HCl/ Dextrose (Dilaudid/D5W) 50 ml @ 2 mls/hr TITRATE IV Last administered on 02/07/17 19:21; Admin Dose 2 MLS/HR; Start 01/23/17 at 16:30 Ergocalciferol (Drisdol) 50,000 unit We@09 PO Last administered on 02/01/17 09 :44; Admin Dose 50,000 UNIT; Start 01/25/17 at 09:00 Calcium Carbonate (Oyster Shell Calcium) 1.25 gm BID PO Last administered on 20:20; Admin Dose 1.25 GM; Start 01/24/17 at 21:00 Pantoprazole (Protonix Tab) 40 mg DAILY@06 PO Last administered on 02/07/17 06 :17; Admin Dose 40 MG; Start 01/26/17 at 06:00 Hydromorphone HCl (Dilaudid) 1 mg Q2 PRN IV PAIN Last administered on 20:22; Admin Dose 1 MG; Start 01/25/17 at 21:00 Atenolol (Tenormin) 25 mg BID PO Last administered on 02/07/17 20:21; Admin Dose 25 MG; Start 01/30/17 at 12:00 Enoxaparin Sodium 30 mg 30 mg DAILY SC Last administered on 02/07/17 09:04; Admin Dose 30 MG; Start 8/23/17 at 16:00 Ampicillin 50 ml @ 100 mls/hr Q8 IVPB Last administered on 02/07/17 21:51; Admin Dose 100 MLS/HR; Start 02/03/17 at 22:00 Metronidazole (Flagyl 500 Mg (Pmx)) 100 ml @ 100 mls/hr Q8 IVPB Last administered on 02/07/17 21:51; Admin Dose 100 MLS/HR; Start 02/03/17 at 22:00 Lactobacillus Acidophilus 1 each 1 each BID PO Last administered on 02/07/17 20:20; Admin Dose 1 EACH; Start 02/03/17 at 21:00 Colistimethate Sodium/Sodium Chloride (Coly-Mycin/NS) 100 ml @ 200 mls/hr Q12 IVPB Last administered on 02/07/17 20:21; Admin Dose 200 MLS/HR; Start at 21:00 Bisacodyl (Dulcolax Supp) 10 mg BID PRN NE CONSTIPATION; Start 02/04/17 at 19: 30 Sodium Biphosphate/ Sodium Phosphate (Fleet Enema) 133 ml BID PRN NE CONSTIPATION; Start 02/04/17 at 19:30 Docusate Sodium (Colace) 100 mg BID PRN PO CONSTIPATION; Start 02/04/17 at 19: 30 MOIRA BIRMINGHAM MD Feb 07, 2017 22:41
[2017-02-08] VITALS (13 sets, daily range): BP systolic 108–125; BP diastolic 56–63; PULSE 73–85; RESP 18–20
[2017-02-08] MEDS: HYDROmorphONE 1 MG/ML SYG IV PRN ×9 (01:07→23:55)
[2017-02-08] MEDS: metroNIDAZOLE 500 MG/NS (PMX) 100 ML IVPB SCH ×3 (05:05→20:45)
[2017-02-08] MEDS: ACETAMINOPHEN 1000MG/100ML IV 100 ML IVPB SCH ×4 (05:05→23:08)
[2017-02-08] MEDS: ONDANSETRON 4 MG INJ IV SCH ×4 (05:05→23:08)
[2017-02-08] MEDS: PANTOPRAZOLE (EC) 40 MG TAB PO SCH (05:06)
[2017-02-08] MEDS: AMPICILLIN 1 GM/NS (PMX) 50 ML IVPB SCH ×3 (05:06→21:55)
[2017-02-08] MEDS: ERGOCALCIFEROL 50,000 UNIT CAP PO SCH (08:12)
[2017-02-08] MEDS: L ACIDOPHIL/B LACTIS/B LONGUM CAPSULE PO SCH ×2 (08:12→20:42)
[2017-02-08] MEDS: predniSONE 20 MG TAB PO SCH (08:12)
[2017-02-08] MEDS: ATENOLOL 25 MG TAB PO SCH ×2 (08:13→20:43)
[2017-02-08] MEDS: CALCIUM CARBONATE 1.25 GM TAB PO SCH ×2 (08:13→20:43)
[2017-02-08] MEDS: ENOXAPARIN 30 MG/0.3 ML SYG SC SCH (08:15)
[2017-02-08 08:17] LABS: ABNORMAL IP MESSAGE 1; BASOPHIL # 0.1 10^3/ul (0.0-0.1); BASOPHILS % 0.5 % (0.0-2.0); EOSINOPHILS # 0.1 10^3/ul (0.0-0.5); EOSINOPHILS % 0.6 % (0.0-7.0); HEMATOCRIT 25.6 % (42.0-52.0); HEMOGLOBIN 8.4 g/dl (14.0-18.0); LYMPHOCYTES # 0.4 10^3/ul (0.8-2.9); LYMPHOCYTES % 2.1 % (15.0-51.0); MEAN CORPUSCULAR HEMOGLOBIN 29.1 pg (29.0-33.0); MEAN CORPUSCULAR HGB CONC 32.8 g/dl (32.0-37.0); MEAN CORPUSCULAR VOLUME 88.6 fl (82.0-101.0); MEAN PLATELET VOLUME 10.4 fl (7.4-10.4); MONOCYTES % 6.1 % (0.0-11.0); NEUTROPHILS % 87.9 % (39.0-77.0); POSITIVE DIFF @See below; RED BLOOD COUNT 2.89 10^6/ul (4.70-6.10); RED CELL DISTRIBUTION WIDTH 18.7 % (11.5-14.5)
[2017-02-08 08:21] LABS: PLATELET COUNT 106 10^3/UL (140-415)
[2017-02-08] MEDS ORDERED: POTASSIUM CHLORIDE (SR) 20 MEQ TAB PO STA (08:49)
[2017-02-08] MEDS: COLISTIMETHATE 150 MG in SOD CHLORIDE 0.9% 100 ML IVPB SCH ×2 (09:16→21:55)
[2017-02-08] MEDS: COLISTIMETHATE (25 MG/ML INHAL SYG) NEB SCH (09:40)
--- NOTE | 2017-02-08 10:00 | PN ---
Date/Time of Note Date/Time of Note DATE: 02/08/17 TIME: 10:00 Assessment/Plan Lines/Catheters IV Catheter Type (from Nrsg): PICC Line [place] in Place (from Nrsg): No Assessment/Plan Assessment/Plan [facility] Progress Note Date of Service: 02/08/2017 Place of service: [facility] 5W tele Today's Assessment & Plan: Overall stable. Abdomen remains somewhat benign. Sacral and superficial wounds can benefit from operative debridement. Patient tentatively on the schedule for [facility] for this purpose. With above assessment, I've recommended the followin. Continue aggressive medical management 2. Cont full liquid diet and advance slowly 3. Follow GIs recommendations 4. If it would make a difference in management, may consider percutaneous biopsy of segment 6 area of abnormality in the liver 5. Multidisciplinary tumor board presentation and discussions 6. Consideration for clinical trials once improved medically 7. LFT's, amylase and lipase checks tomorrow with labs 8. Will likely benefit from aggressive bowel regimen (some of the pain likely from constipation) 9. Percutaneous cholecystostomy drain care teachings to patient and family 10. Scheduled for surgical debridement of sacral and other superficial wounds in the OR on [facility] 02/09/17 Thank you very much for having me involved in the care of this very pleasant patient and wonderful family. If you have any questions, please feel free to contact me at [phone]. Nature of presenting problem: High severity Please note that, given the extensive number of diagnoses or management options , the extensive amount and/or complexity of data needed to be reviewed, and high risk of complications and/or morbidity or mortality, this qualifies as high complexity type of decision-making. Disclaimer: Inadvertent spelling and grammatical errors are likely due to EHR/ dictation software use and do not reflect on the quality of delivered patient care. Also, please note that the electronic time recorded on this node does not necessarily reflect the actual time of the visit. 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 HIDA scan positive 01/28/2017. Status post percutaneous cholecystostomy drain placement 02/02/2017. Status post CT-guided left flank subcutaneous nodule biopsy [facility] 01/12/2017. Comorbidities: 1. BMI 40.7 2. Small right pleural effusion with atelectasis and right lung base pneumonia. 3. Large B cell anaplastic lymphoma; status post chemo 1 month prior to presentation 4. Sepsis 5. Hyponatremia 6. Hypokalemia 7. Acute renal injury 8. Status post percutaneous cholecystostomy drain placement 02/02/2017 Subjective: No major events or complaints; reported feeling ok and no significant abdominal pain and under control with medications; no significant reported nausea or vomiting and no major diarrhea; no sob or cp; + flatus; + BM; minimal to no activity. Fever noted yesterday. Patient reported feeling well. Objective: Vitals: See below I's & O's: See below Exam: GENERAL: On exam, the patient was lying in bed and appeared to be comfortable and in no acute distress. Not very diaphoretic. ABDOMEN: Soft, minimal to no tenderness and nondistended. There are no peritoneal signs or guarding. Perc GB drain with thick green bilious output. SKIN: Skin appears to be pink and feels warm to touch. Number of superficial wounds on the extremities and on the sacral region with some necrotic tissue/ scab on the skin NEUROLOGIC: Patient is awake, alert, and follows commands appropriately. Labs: See below Exam/Review of Systems Vital Signs Vitals Vital Signs Date Time Temp Pulse Resp B/P Pulse Ox O2 Delivery O2 Flow Rate FiO2 02/08/17 09:45 80 18 95 Nasal Cannula 3.0 02/08/17 07:46 98.0 117/60 02/06/17 09:09 28 Intake and Output 02/07/17 02/07/17 02/08/17 15:00 23:00 07:00 Intake Total 1600 ml Output Total 1800 ml 400 ml Balance -200 ml -400 ml Results Result Diagram: 02/08/17 0748 02/07/17 1213 LENKA HERNANDEZ M.D. Feb 08, 2017 10:00
--- NOTE | 2017-02-08 12:38 | PN ---
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 pancreatitis on pain control with DIilaudid s/p Cholecystomy 2 Fevers 102>104 s/p Cholecystomy however recurent fevers ?source ? wounds 3 Hyponatremia on bactrim with d5 w> stopped 137 4 Acute renal injury resolved 5 Right pleural effusion with atelectasis and right lung base pneumonia, resolved. 6. Large B cell anaplastic lymphoma; status post chemo 1 month, leukopenia now neutropenic 7. 2 Hypoparathyroidism On Calcitrol and Caco3 8 Severe anemia 9 Morbid obesity 10 Skin wounds 11 hypokalemia Assessment/Plan 1. on ampicillin/colitin/caspofungin/flagyl 2 Surgical debridement tmw 3 Possibley removing PICC line tmw 4 Dilaudid pain control 6 Dilaudid for pain 7 GI/DVT prophylaxsis 8 Apppreciate all consults 9 condition guarded 10 K replete Problems: Subjective 24 Hr Interval Summary Free Text/Dictation Fevers improving Bld cx+gram neg rods Exam/Review of Systems Vital Signs Vitals Vital Signs Date Time Temp Pulse Resp B/P Pulse Ox O2 Delivery O2 Flow Rate FiO2 02/08/17 12:35 78 02/08/17 09:45 18 95 Nasal Cannula 3.0 02/08/17 07:46 98.0 117/60 02/06/17 09:09 28 Intake and Output 02/07/17 02/07/17 02/08/17 15:00 23:00 07:00 Intake Total 1600 ml Output Total 1800 ml 400 ml Balance -200 ml -400 ml Results Result Diagram: 02/08/17 0748 02/07/17 1213 Results 24 hrs Laboratory Tests Test 02/08/17 07:48 White Blood Count 17.0 H Red Blood Count 2.89 L Hemoglobin 8.4 L Hematocrit 25.6 L Mean Corpuscular Volume 88.6 Mean Corpuscular Hemoglobin 29.1 Mean Corpuscular Hemoglobin Concent 32.8 Red Cell Distribution Width 18.7 H Platelet Count 106 L Mean Platelet Volume 10.4 Neutrophils % 87.9 H Lymphocytes % 2.1 L Monocytes % 6.1 Eosinophils % 0.6 Basophils % 0.5 Nucleated Red Blood Cells % 0.0 Neutrophils # (Manual) 15.0 H Lymphocytes # 0.4 L Monocytes # 1.0 H Eosinophils # 0.1 Basophils # 0.1 Nucleated Red Blood Cells # 0.0 Medications Medications Current Medications Docusate Sodium (Colace) 100 mg Q12H PRN PO CONSTIPATION Last administered on 00:29; Admin Dose 100 MG; Start 01/09/17 at 19:30 Magnesium Hydroxide (Milk Of Mag) 30 ml DAILY PRN PO CONSTIPATION Last administered on 02/05/17 00:29; Admin Dose 30 ML; Start 01/09/17 at 19:30 Sodium Biphosphate/ Sodium Phosphate (Fleet Enema) 133 ml DAILY PRN [place] CONSTIPATION; Start 01/09/17 at 19:30 Nitroglycerin (Nitroglycerin (Sl Tab) 0.4 Mg) 1 tab Q5M PRN SL ANGINA; Start at 19:30 Miscellaneous Information (Pending [facility] Order For Wound Care) This patient aranda... PRN PRN XX WOUND CARE; Start 01/10/17 at 03:30 Ondansetron HCl 4 mg 4 mg Q6 IV Last administered on 02/08/17 05:05; Admin Dose 4 MG; Start 01/10/17 at 15:30 Acetaminophen (Ofirmev 1000mg/ 100ml Iv) 100 ml @ 400 mls/hr Q6 IVPB Last administered on 02/08/17 05:05; Admin Dose 400 MLS/HR; Start 01/10/17 at 16:30 IV Flush (NS 10 ml) 10 ml PRN PRN IV IV PROTOCOL; Start 01/10/17 at 20:30 Prednisone 10 mg 10 mg DAILY PO Last administered on 02/08/17 08:12; Admin Dose 10 MG; Start 01/15/17 at 09:00 Trimethoprim/ Sulfamethoxazole 25 ml/Dextrose 525 ml @ 343.333 mls/hr Q8 IVPB Last administered on 01/31/17 05:21; Admin Dose 343.333 MLS/HR; Start 01/19/17 at 13:30; Status Future Hold Hydromorphone HCl/ Dextrose (Dilaudid/D5W) 50 ml @ 2 mls/hr TITRATE IV Last administered on 02/07/17 19:21; Admin Dose 2 MLS/HR; Start 01/23/17 at 16:30 Ergocalciferol (Drisdol) 50,000 unit We@09 PO Last administered on 02/08/17 08 :12; Admin Dose 50,000 UNIT; Start 01/25/17 at 09:00 Calcium Carbonate (Oyster Shell Calcium) 1.25 gm BID PO Last administered on 08:13; Admin Dose 1.25 GM; Start 01/24/17 at 21:00 Pantoprazole (Protonix Tab) 40 mg DAILY@06 PO Last administered on 02/08/17 05 :06; Admin Dose 40 MG; Start 01/26/17 at 06:00 Hydromorphone HCl (Dilaudid) 1 mg Q2 PRN IV PAIN Last administered on 09:10; Admin Dose 1 MG; Start 01/25/17 at 21:00 Atenolol (Tenormin) 25 mg BID PO Last administered on 02/08/17 08:13; Admin Dose 25 MG; Start 01/30/17 at 12:00 Enoxaparin Sodium 30 mg 30 mg DAILY SC Last administered on 02/08/17 08:15; Admin Dose 30 MG; Start 02/01/17 at 16:00 Ampicillin 50 ml @ 100 mls/hr Q8 IVPB Last administered on 02/08/17 05:06; Admin Dose 100 MLS/HR; Start 02/03/17 at 22:00 Metronidazole (Flagyl 500 Mg (Pmx)) 100 ml @ 100 mls/hr Q8 IVPB Last administered on 02/08/17 05:05; Admin Dose 100 MLS/HR; Start 02/03/17 at 22:00 Lactobacillus Acidophilus 1 each 1 each BID PO Last administered on 02/08/17 08:12; Admin Dose 1 EACH; Start 02/03/17 at 21:00 Colistimethate Sodium/Sodium Chloride (Coly-Mycin/NS) 100 ml @ 200 mls/hr Q12 IVPB Last administered on 02/08/17t 09:16; Admin Dose 200 MLS/HR; Start at 21:00 Bisacodyl (Dulcolax Supp) 10 mg BID PRN [place] CONSTIPATION; Start 02/04/17 at 19: 30 Sodium Biphosphate/ Sodium Phosphate (Fleet Enema) 133 ml BID PRN [place] CONSTIPATION; Start 02/04/17 at 19:30 Docusate Sodium (Colace) 100 mg BID PRN PO CONSTIPATION; Start 02/04/17 at 19: 30 TAMARA HARTMANN MD Feb 08, 2017 12:38
--- NOTE | 2017-02-08 16:35 | CONS ---
Date/Time of Note Date/Time of Note DATE: 02/08/17 TIME: 16:32 Assessment/Plan Assessment/Plan Additional Assessment/Plan Doing well on current pain control, continuous IV Dilaudid and as needed breakthrough pain. No nausea vomiting dizziness diplopia disorientation neuritis constipation headache pain is described as continuous abdominal discomfort with radiations into his low back, bilateral flank where open lesions are located. No major side effects associated with current pain management. Rated 3/10 with pain control medications 10/10 without. Consultation Date/Type/Reason Admit Date/Time Jan 09, 2017 at 19:08 Initial Consult Date 01/10/17 Type of Consultation: Palliative pain Referring Provider: YAO RAHMAN Exam/Review of Systems Vital Signs Vitals Vital Signs Date Time Temp Pulse Resp B/P Pulse Ox O2 Delivery O2 Flow Rate FiO2 02/08/17 16:24 74 02/08/17 15:10 97.7 18 108/56 99 02/08/17 09:45 Nasal Cannula 3.0 02/06/17 09:09 28 Intake and Output 02/07/17 02/07/17 02/08/17 15:00 23:00 07:00 Intake Total 1600 ml Output Total 1800 ml 400 ml Balance -200 ml -400 ml Exam Constitutional: alert, oriented, well developed Psych: nl mood/affect, no complaints, No anxiety, No confusion, No depression, No other, No suicidal Respiratory: clear to auscultation, normal air movement, No congested cough, No crackles/rales, No diminished breath sounds, No intercostal retraction, No labored breathing, No other, No respirations, No tactile fremitus, No wheezing Cardiovascular: nl pulses, regular rate and rhythm, No S3, No S4, No bruits, No diastolic murmur, No edema, No gallop, No irregular rhythm, No jugular venous distention (JVD), No murmurs/extra sounds, No other, No rub, No systolic murmur Neurological: [employer]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, nl mental status, nl speech, nl strength, No DTR's symmetric, No confused, No focal weakness, No lethargic, No numbness , No other, No reflexes, No unresponsive Results Result Diagram: 02/08/17 0748 02/07/17 1213 Results 24 hrs Laboratory Tests Test 02/08/17 07:48 White Blood Count 17.0 H Red Blood Count 2.89 L Hemoglobin 8.4 L Hematocrit 25.6 L Mean Corpuscular Volume 88.6 Mean Corpuscular Hemoglobin 29.1 Mean Corpuscular Hemoglobin Concent 32.8 Red Cell Distribution Width 18.7 H Platelet Count 106 L Mean Platelet Volume 10.4 Neutrophils % 87.9 H Lymphocytes % 2.1 L Monocytes % 6.1 Eosinophils % 0.6 Basophils % 0.5 Nucleated Red Blood Cells % 0.0 Neutrophils # (Manual) 15.0 H Lymphocytes # 0.4 L Monocytes # 1.0 H Eosinophils # 0.1 Basophils # 0.1 Nucleated Red Blood Cells # 0.0 Medications Medications Current Medications Docusate Sodium (Colace) 100 mg Q12H PRN PO CONSTIPATION Last administered on 00:29; Admin Dose 100 MG; Start 01/09/17 at 19:30 Magnesium Hydroxide (Milk Of Mag) 30 ml DAILY PRN PO CONSTIPATION Last administered on 02/05/17 00:29; Admin Dose 30 ML; Start 01/09/17 at 19:30 Sodium Biphosphate/ Sodium Phosphate (Fleet Enema) 133 ml DAILY PRN [place] CONSTIPATION; Start 01/09/17 at 19:30 Nitroglycerin (Nitroglycerin (Sl Tab) 0.4 Mg) 1 tab Q5M PRN SL ANGINA; Start at 19:30 Miscellaneous Information (Pending [facility] Order For Wound Care) This patient aranda... PRN PRN XX WOUND CARE; Start 01/10/17 at 03:30 Ondansetron HCl 4 mg 4 mg Q6 IV Last administered on 02/08/17 12:42; Admin Dose 4 MG; Start 01/10/17 at 15:30 Acetaminophen (Ofirmev 1000mg/ 100ml Iv) 100 ml @ 400 mls/hr Q6 IVPB Last administered on 02/08/17 12:41; Admin Dose 400 MLS/HR; Start 01/10/17 at 16:30 IV Flush (NS 10 ml) 10 ml PRN PRN IV IV PROTOCOL; Start 01/10/17 at 20:30 Prednisone 10 mg 10 mg DAILY PO Last administered on 02/08/17 08:12; Admin Dose 10 MG; Start 01/15/17 at 09:00 Hydromorphone HCl/ Dextrose (Dilaudid/D5W) 50 ml @ 2 mls/hr TITRATE IV Last administered on 02/07/17 19:21; Admin Dose 2 MLS/HR; Start 01/23/17 at 16:30 Ergocalciferol (Drisdol) 50,000 unit We@09 PO Last administered on 02/08/17 08 :12; Admin Dose 50,000 UNIT; Start 01/25/17 at 09:00 Calcium Carbonate (Oyster Shell Calcium) 1.25 gm BID PO Last administered on 08:13; Admin Dose 1.25 GM; Start 01/24/17 at 21:00 Pantoprazole (Protonix Tab) 40 mg DAILY@06 PO Last administered on 02/08/17 05 :06; Admin Dose 40 MG; Start 01/26/17 at 06:00 Hydromorphone HCl (Dilaudid) 1 mg Q2 PRN IV PAIN Last administered on 15:23; Admin Dose 1 MG; Start 01/25/17 at 21:00 Atenolol (Tenormin) 25 mg BID PO Last administered on 02/08/17 08:13; Admin Dose 25 MG; Start 01/30/17 at 12:00 Enoxaparin Sodium 30 mg 30 mg DAILY SC Last administered on 02/08/17 08:15; Admin Dose 30 MG; Start 02/01/17 at 16:00 Ampicillin 50 ml @ 100 mls/hr Q8 IVPB Last administered on 02/08/17 13:33; Admin Dose 100 MLS/HR; Start 02/03/17 at 22:00 Metronidazole (Flagyl 500 Mg (Pmx)) 100 ml @ 100 mls/hr Q8 IVPB Last administered on 02/08/17 13:33; Admin Dose 100 MLS/HR; Start 02/03/17 at 22:00 Lactobacillus Acidophilus 1 each 1 each BID PO Last administered on 02/08/17 08:12; Admin Dose 1 EACH; Start 02/03/17 at 21:00 Colistimethate Sodium/Sodium Chloride (Coly-Mycin/NS) 100 ml @ 200 mls/hr Q12 IVPB Last administered on 02/08/17 09:16; Admin Dose 200 MLS/HR; Start at 21:00 Bisacodyl (Dulcolax Supp) 10 mg BID PRN [place] CONSTIPATION; Start 02/04/17 at 19: 30 Sodium Biphosphate/ Sodium Phosphate (Fleet Enema) 133 ml BID PRN [place] CONSTIPATION; Start 02/04/17 at 19:30 Docusate Sodium (Colace) 100 mg BID PRN PO CONSTIPATION; Start 02/04/17 at 19: 30 SHELBY WHITE Feb 08, 2017 16:35
--- NOTE | 2017-02-08 21:50 | CONS ---
Date/Time of Note Date/Time of Note DATE: 02/08/17 TIME: 21:47 Assessment/Plan Assessment/Plan Chief Complaint/Hosp Course Anaplastic B-cell Lymphoma pt was dx'd with lymphoma a year and half ago , it turned into an aggressive type. His last chemo was a month ago and hadn't had since due to experiencing similar presenting symptoms. record from pt's oncologist Kain Wisdom - P Left flank mass, CT-guided core needle biopsies with touch imprints: Completely necrotic tissue, insufficient for pathologic evaluation. PER PT REPORT- reportedly scheduled for change in therapy due to what appears to be lack of adequate response CT ABD/PEL/CHEST:(+) multiple areas of nodules likely lymphoma, PT WANT TO GO HOME AND FAMILY ALREADY CALLED HIS PRIMARY ONCOLOGIST TO ARRANGE THE APPT [facility] POST DC OK TO DC HOME IF CLEARED BY PRIMARY AND ALL CONSULTANTS WITH F-UP BY DR WISDOM LEUKOPENIA IN PT WITH HNL POST CHEMO AND WITH SEPTIC PICTURE MONITOR BLOOD COUNT CLOSELY POST NEUPOGEN WBC- FLUCTUATING IMPROVED ON NEUPOGEN X 2 DC NEUPOGEN PANCYTOPENIA POST CHEMO CONT TO MONITOR PRBC NEEDED s/p Sepsis w/worsening lactic acidosis 2/2 PNA + Left flank/hip/leg decub Resolving HCAP => CT ABD/PEL/CHEST: (+) PNA * 01/24 RESPIRATORY CULTURE Final 3+ KLEB PNEUMONIAE CARBAPENEMASE ID W-UP pancreatitis. Abd Pain with N/V: 2/2 known lymphoma - pain mgmt - Anti-emetics Hyponatremia and Hypokalemia: 2/2 vomiting - NS IVF - replete K+ as needed Presumed RAMU: likely pre-renal 2/2 vomiting - cont IVF for now Problems: Consultation Date/Type/Reason Admit Date/Time Jan 09, 2017 at 19:08 Initial Consult Date 01/10/17 Type of Consultation: [facility] Referring Provider: YAO RAHMAN 24 HR Interval Summary Free Text/Dictation ALL NOTED FELLING BETTER PT WANT TO GO HOME AND FAMILY ALREADY CALLED HIS PRIMARY ONCOLOGIST TO ARRANGE THE APPT JOSSELIN POST DC Exam/Review of Systems Vital Signs Vitals Vital Signs Date Time Temp Pulse Resp B/P Pulse Ox O2 Delivery O2 Flow Rate FiO2 02/08/17 20:47 99 3.0 02/08/17 20:14 Nasal Cannula 02/08/17 19:02 97.5 71 19 110/63 02/06/17 09:09 28 Intake and Output 02/07/17 02/07/17 02/08/17 14:59 22:59 06:59 Intake Total 1600 ml Output Total 1800 ml 400 ml Balance -200 ml -400 ml Results Result Diagram: 02/08/17 0748 02/07/17 1213 Results 24 hrs Laboratory Tests Test 02/08/17 07:48 White Blood Count 17.0 H Red Blood Count 2.89 L Hemoglobin 8.4 L Hematocrit 25.6 L Mean Corpuscular Volume 88.6 Mean Corpuscular Hemoglobin 29.1 Mean Corpuscular Hemoglobin Concent 32.8 Red Cell Distribution Width 18.7 H Platelet Count 106 L Mean Platelet Volume 10.4 Neutrophils % 87.9 H Lymphocytes % 2.1 L Monocytes % 6.1 Eosinophils % 0.6 Basophils % 0.5 Nucleated Red Blood Cells % 0.0 Neutrophils # (Manual) 15.0 H Lymphocytes # 0.4 L Monocytes # 1.0 H Eosinophils # 0.1 Basophils # 0.1 Nucleated Red Blood Cells # 0.0 Medications Medications Current Medications Docusate Sodium (Colace) 100 mg Q12H PRN PO CONSTIPATION Last administered on 00:29; Admin Dose 100 MG; Start 01/09/17 at 19:30 Magnesium Hydroxide (Milk Of Mag) 30 ml DAILY PRN PO CONSTIPATION Last administered on 02/05/17 00:29; Admin Dose 30 ML; Start 01/09/17 at 19:30 Sodium Biphosphate/ Sodium Phosphate (Fleet Enema) 133 ml DAILY PRN [place] CONSTIPATION; Start 01/09/17 at 19:30 Nitroglycerin (Nitroglycerin (Sl Tab) 0.4 Mg) 1 tab Q5M PRN SL ANGINA; Start at 19:30 Miscellaneous [facility] This patient aranda... PRN PRN XX WOUND CARE; Start 01/10/17 at 03:30 Ondansetron HCl 4 mg 4 mg Q6 IV Last administered on 02/08/17 17:45; Admin Dose 4 MG; Start 01/10/17 at 15:30 Acetaminophen (Ofirmev 1000mg/ 100ml Iv) 100 ml @ 400 mls/hr Q6 IVPB Last administered on 02/08/17 17:45; Admin Dose 400 MLS/HR; Start 01/10/17 at 16:30 IV Flush (NS 10 ml) 10 ml PRN PRN IV IV PROTOCOL; Start 01/10/17 at 20:30 Prednisone 10 mg 10 mg DAILY PO Last administered on 02/08/17 08:12; Admin Dose 10 MG; Start 01/15/17 at 09:00 Hydromorphone HCl/ Dextrose (Dilaudid/D5W) 50 ml @ 2 mls/hr TITRATE IV Last administered on 02/07/17 19:21; Admin Dose 2 MLS/HR; Start 01/23/17 at 16:30 Ergocalciferol (Drisdol) 50,000 unit We@09 PO Last administered on 02/08/17 08 :12; Admin Dose 50,000 UNIT; Start 01/25/17 at 09:00 Calcium Carbonate (Oyster Shell Calcium) 1.25 gm BID PO Last administered on 20:43; Admin Dose 1.25 GM; Start 01/24/17 at 21:00 Pantoprazole (Protonix Tab) 40 mg DAILY@06 PO Last administered on 02/08/17 05 :06; Admin Dose 40 MG; Start 01/26/17 at 06:00 Hydromorphone HCl (Dilaudid) 1 mg Q2 PRN IV PAIN Last administered on 20:41; Admin Dose 1 MG; Start 01/25/17 at 21:00 Atenolol (Tenormin) 25 mg BID PO Last administered on 02/08/17 20:43; Admin Dose 25 MG; Start 01/30/17 at 12:00 Enoxaparin Sodium 30 mg 30 mg DAILY SC Last administered on 02/08/17 08:15; Admin Dose 30 MG; Start 02/01/17 at 16:00 Ampicillin 50 ml @ 100 mls/hr Q8 IVPB Last administered on 02/08/17 13:33; Admin Dose 100 MLS/HR; Start 02/03/17 at 22:00 Metronidazole (Flagyl 500 Mg (Pmx)) 100 ml @ 100 mls/hr Q8 IVPB Last administered on 02/08/17 20:45; Admin Dose 100 MLS/HR; Start 8/25/17 at 22:00 Lactobacillus Acidophilus 1 each 1 each BID PO Last administered on 02/08/17 20:42; Admin Dose 1 EACH; Start 02/03/17 at 21:00 Colistimethate Sodium/Sodium Chloride (Coly-Mycin/NS) 100 ml @ 200 mls/hr Q12 IVPB Last administered on 02/08/17 09:16; Admin Dose 200 MLS/HR; Start at 21:00 Bisacodyl (Dulcolax Supp) 10 mg BID PRN [place] CONSTIPATION; Start 02/04/17 at 19: 30 Sodium Biphosphate/ Sodium Phosphate (Fleet Enema) 133 ml BID PRN [place] CONSTIPATION; Start 02/04/17 at 19:30 Docusate Sodium (Colace) 100 mg BID PRN PO CONSTIPATION; Start 02/04/17 at 19: 30 MOIRA BIRMINGHAM MD Feb 08, 2017 21:50
[2017-02-08] MEDS: HYDROmorphONE 50 MG in DEXTROSE 5% 45 ML IV SCH (23:45)
[2017-02-09] VITALS (19 sets, daily range): BP systolic 105–165; BP diastolic 51–87; PULSE 79–112; RESP 16–20
[2017-02-09] MEDS: HYDROmorphONE 1 MG/ML SYG IV PRN ×5 (03:21→22:26)
--- NOTE | 2017-02-09 04:34 | PN ---
DATE: 02/08/2017 SUBJECTIVE DATA: No acute changes overnight. The patient is alert, feels good, denies pain, no fevers overnight. OBJECTIVE DATA: VITAL SIGNS: Temperature 97.9, pulse 84, respirations 18, blood pressure 119/62, saturation 99 on 3 L nasal cannula. LABORATORY AND DIAGNOSTIC DATA: WBC 17, H and H 8.4 and 25.6, platelets 106, neutrophils 87.9. BUN 11, creatinine 0.69. INDWELLING: Patient has right upper extremity PICC line placed on January 10 and cholecystostomy tube. ANTIMICROBIALS: Colistin, ampicillin, Flagyl. MICROBIOLOGY: Blood culture from February 06 is growing gram- negative rods. Urine culture negative. Fluid cultures from cholecystostomy tube negative. PHYSICAL EXAMINATION: GENERAL: This is a well-developed, wasted middle-aged man, who is alert, in no distress. HEENT: Head atraumatic, normocephalic. Sclerae anicteric. Buccal mucosa pink. NECK: Supple. RESPIRATORY: Chest rise symmetrical. Breath sounds diminished at the bases. HEART: S1, S2. ABDOMEN: Soft, bowel sounds present. EXTREMITIES: Without cyanosis. SKIN: With multiple necrotic lesions and wounds. ASSESSMENT: 1. Sepsis with ongoing fevers, leukocytosis. 2. Gram-negative oscar bacteremia possibly line sepsis, possibly secondary to infected wounds. 3. Acute cholecystitis, status post cholecystostomy catheter placement. 4. Status post acute pancreatitis. 5. B-cell lymphoma. 6. Status post neutropenia currently with leukocytosis secondary to Neupogen. PLAN: The patient is clinically stable on appropriate antimicrobials. He is scheduled for wound debridement tentatively tomorrow. At this point, we recommend discontinue PICC line. Send tip of PICC for culture. Give him at least 24-hour line holiday prior to a new central line placement. Above was discussed with primary team, Dr. Marroquin. Dictated By: Felicia Hdz NP /paulette/meche /Document#: [id number]
[2017-02-09] MEDS: ONDANSETRON 4 MG INJ IV SCH ×4 (05:33→23:30)
[2017-02-09] MEDS: AMPICILLIN 1 GM/NS (PMX) 50 ML IVPB SCH ×3 (05:34→21:21)
[2017-02-09] MEDS: ACETAMINOPHEN 1000MG/100ML IV 100 ML IVPB SCH ×4 (05:34→23:30)
[2017-02-09] MEDS: metroNIDAZOLE 500 MG/NS (PMX) 100 ML IVPB SCH ×3 (05:34→21:20)
[2017-02-09] MEDS: PANTOPRAZOLE (EC) 40 MG TAB PO SCH (06:00)
[2017-02-09 07:17] LABS: ABNORMAL IP MESSAGE 1; BASOPHILS % 0.3 % (0.0-2.0); EOSINOPHILS # 0.1 10^3/ul (0.0-0.5); EOSINOPHILS % 0.9 % (0.0-7.0); HEMATOCRIT 28.1 % (42.0-52.0); HEMOGLOBIN 8.9 g/dl (14.0-18.0); LYMPHOCYTES # 0.3 10^3/ul (0.8-2.9); LYMPHOCYTES % 2.6 % (15.0-51.0); MEAN CORPUSCULAR HEMOGLOBIN 28.3 pg (29.0-33.0); MEAN CORPUSCULAR HGB CONC 31.7 g/dl (32.0-37.0); MEAN CORPUSCULAR VOLUME 89.2 fl (82.0-101.0); MEAN PLATELET VOLUME 11.5 fl (7.4-10.4); NEUTROPHILS % 83.6 % (39.0-77.0); PLATELET COUNT 116 10^3/UL (140-415); POSITIVE DIFF @See below; RED BLOOD COUNT 3.15 10^6/ul (4.70-6.10); RED CELL DISTRIBUTION WIDTH 19.3 % (11.5-14.5); WHITE BLOOD COUNT 11.2 10^3/ul (4.8-10.8)
--- NOTE | 2017-02-09 07:28 | HPN ---
Date/Time of Note Date/Time of Note DATE: 02/09/17 TIME: 07:28 Interval H&P Admission Note Pt. seen H&P reviewed: No system changes Pt. seen H&P reviewed. No system changes (I attest that I have seen and examined the patient and reviewed the operation in detail, as well as its risks , benefits and alternatives of the operation). I attest that I have seen and examined the patient and reviewed in detail the operation, and its associated risks, benefits and alternative. I have answered all the patient's questions to the best of my ability and the patient wishes to proceed. Please refer to rest of electronic medical record for additional updates. LENKA HERNANDEZ M.D. Feb 09, 2017 07:28
[2017-02-09] MEDS ORDERED: FENTAnyl 50 MCG/ML VIAL ONE ×2 (08:00→08:05)
[2017-02-09] MEDS ORDERED: PROPOFOL 100 ML ONE ×3 (08:09→08:56)
[2017-02-09] MEDS ORDERED: LIDOCAINE 2% (SDV) 5 ML INJ ONE (08:56)
[2017-02-09] MEDS ORDERED: HYDROmorphONE (0.2 MG/ML) 10ML SYG IV PRN ×3 (09:00)
[2017-02-09] MEDS ORDERED: ONDANSETRON 4 MG INJ IV PRN (09:00)
[2017-02-09] MEDS ORDERED: METOCLOPRAMIDE 10 MG INJ IV PRN (09:00)
[2017-02-09] MEDS ORDERED: DIPHENHYDRAMINE 50 MG INJ IV PRN (09:00)
[2017-02-09] MEDS ORDERED: MEPERIDINE 25 MG INJ IV PRN (09:00)
[2017-02-09] MEDS ORDERED: FENTAnyl 50 MCG/ML VIAL IV PRN ×2 (09:00)
[2017-02-09] MEDS ORDERED: OXYCODONE/ACETAMINOPHEN (5/325) TAB PO PRN (09:00)
--- NOTE | 2017-02-09 09:57 | OPR ---
Date/Time of Note Date/Time of Note DATE: 02/09/17 TIME: 09:56 Operative Report Operative\Procedure Findings [facility] INPATIENT OPERATIVE NOTE PLACE OF SERVICE: [facility] DATE OF SURGERY: 02/09/2017 PREOPERATIVE DIAGNOSIS: 1. Multiple superficial wounds on the back and flank region and behind the right knee 2. BMI 40.7 3. Small right pleural effusion with atelectasis and right lung base pneumonia. 4. Large B cell anaplastic lymphoma; status post chemo 1 month prior to presentation 5. Sepsis 6. Hyponatremia 7. Hypokalemia 8. Acute renal injury 9. Status post percutaneous cholecystostomy drain placement 02/02/2017 POSTOPERATIVE DIAGNOSIS: 1. Multiple superficial wounds on the back and flank region and behind the right knee 2. BMI 40.7 3. Small right pleural effusion with atelectasis and right lung base pneumonia. 4. Large B cell anaplastic lymphoma; status post chemo 1 month prior to presentation 5. Sepsis 6. Hyponatremia 7. Hypokalemia 8. Acute renal injury 9. Status post percutaneous cholecystostomy drain placement 02/02/2017 OPERATION: 1. Excisional debridement of multiple sites including large area over the lumbar and flank region, 40 cm x 15 cm x 1 cm, smaller area on the right flank region, 10 cm x 4 cm x 1 cm, and an area behind the right knee, approximately 9 cm x 7 cm x 1 cm with removal of 15 cm x 10 cm x 1 cm soft tissue using scissors to a depth of 1 cm to subcutaneous fat SURGEON: Lenka Carlos M.D. COMMERCIAL MANAGER: None ANESTHESIA: General endotracheal tube anesthesia ANESTHESIOLOGIST: Kriss Paris M.D. BRIEF SUMMARY: An otherwise uncomplicated debridement of multiple sites as above was performed with findings of superficial necrosis and infection of soft tissue without evidence of necrotizing fasciitis. 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 HIDA scan positive 01/28/2017. Status post percutaneous cholecystostomy drain placement 02/02/2017. Status post CT-guided left flank subcutaneous nodule biopsy [facility] 01/12/2017. Comorbidities: 1. BMI 40.7 2. Small right pleural effusion with atelectasis and right lung base pneumonia. 3. Large B cell anaplastic lymphoma; status post chemo 1 month prior to presentation 4. Sepsis 5. Hyponatremia 6. Hypokalemia 7. Acute renal injury 8. Status post percutaneous cholecystostomy drain placement 02/02/2017 BRIEF HISTORY: The patient is a very pleasant 31-year-old gentleman with above- mentioned comorbidities whom I was kindly asked to get involved initially for his abdomen, but later for cleanup of several superficial decubitus ulcer and pressure ulcers. I met with the patient and family and counseled them regarding the possible options of treatment, and I strongly suggested a operative debridement of these areas since there are multiple and large areas. We reviewed the operation in detail as well as the risks, benefits, alternatives, and expected outcomes of this operation. After careful consideration of all the risks, benefits, and alternatives, the patient and family appeared to understand those risks and wished to proceed with surgery. For a detailed report of my consultation with patient and family, please refer to my separate consultation note. STATEMENT OF THE INFORMED CONSENT: The patient and family appeared to understand the risks of the operation to include, but not be limited to risk of postoperative pain and scar tissue, possible infection or bleeding requiring other interventions such as opening the wound, placement of drainage catheters, or other operative interventions; possible injury to surrounding to structures including blood vessels, nerves, soft tissue and muscle requiring other interventions or procedures; possible further infection of subcutaneous tissues causing significant increase in morbidity and mortality and requiring multiple interventions including but not limited to, placement of drainage catheters, imaging studies, as well as operative interventions; possible other source of sepsis such as urinary tract infections or pneumonias, or other sources of potentially life threatening problems such as deep venous thrombus formation causing pulmonary embolism, myocardial arrhythmias and infarctions, and even . After careful consideration of all their options, the patient and family appeared to understand and wished to proceed with surgery. DESCRIPTION OF PROCEDURE: After obtaining informed consent, the patient was brought into the operating room and was placed in a normal supine position, where successful general endotracheal tube anesthesia was performed. Intravenous access was already in place and intravenous antimicrobials had been appropriately chosen and dosed prior to the operation. The patient was placed in the right decubitus position and the skin area behind his right knee and the lumbar and flank regions were prepped and draped in the usual sterile fashion. We then called a surgical time-out where the patient's identification, date of , nature of the operation, allergies, presence of intravenous antimicrobials, presence of needed equipment, and any other concerns were reviewed and agreed upon by all members of the operating room team. We then started the operation by performing excisional debridement using scissors down to level of subcutaneous tissue that had nice bleeding bed as follows: large area over the lumbar and flank region, 40 cm x 15 cm x 1 cm, smaller area on the right flank region, 10 cm x 4 cm x 1 cm, and an area behind the right knee, approximately 9 cm x 7 cm x 1 cm with removal of 15 cm x 10 cm x 1 cm soft tissue using scissors to a depth of 1 cm to subcutaneous fat. After debridement, we ensured adequate hemostasis. The areas appear to be nice and clean and there was no further evidence of any necrotic tissue or pus could be identified. The cover the area with Xeroform gauze and then applied saline soaked Kerlix gauze over that. Light dressing was then applied over this region. At the end of the operation, both the sponge count and needle count were reportedly correct x2. The patient tolerated the procedure without any reported complications. ESTIMATED BLOOD LOSS: Less than 10 mL. BLOOD OR BLOOD PRODUCT TRANSFUSIONS: None to my knowledge. SPECIMENS: Excisional debridement all sent in one batch. COMPLICATIONS: None. DISPOSITION: Recovery area. Disclaimer: Inadvertent spelling and grammatical errors are likely due to EHR/ dictation software use and do not reflect on the quality of delivered patient care. Also, please note that the electronic time recorded on this node does not necessarily reflect the actual time of the visit. LENKA CARLOS M.D. Feb 09, 2017 09:56
[2017-02-09] MEDS ORDERED: DOCUSATE SODIUM 100 MG CAP PO PRN (10:00)
[2017-02-09] MEDS ORDERED: NA PHOSPHATE/BIPHOS 133 ML ENEMA PR PRN (10:00)
[2017-02-09] MEDS ORDERED: BISACODYL 10 MG SUPP PR PRN (10:00)
--- NOTE | 2017-02-09 10:30 | PN ---
Date/Time of Note Date/Time of Note DATE: 02/09/17 TIME: 10:30 Assessment/Plan VTE Prophylaxis VTE Prophylaxis Intervention: LMWH Lines/Catheters IV Catheter Type (from Nrsg): PICC Line Central line still needed: Yes Urinary Cath still in place: No Assessment/Plan Chief Complaint/Hosp Course Gen:awake,alert , Neck:supple heart:tacycardic Lungs: dec breath sounds bases Abdomen: mild TTP eXT: edema PICC line Multiple wounds 31 yo male with anaplastic B Cell lymphoma who presented with abdominal pain, found to have 1. pancreatitis on pain control with DIilaudid s/p Cholecystomy 2 Fevers 102>104 s/p Cholecystomy however recurent fevers ?source ? wounds vs Bacterimia from PICC line 3 Hyponatremia on bactrim with d5 w> stopped 137 4 Acute renal injury resolved 5 Right pleural effusion with atelectasis and right lung base pneumonia, resolved. 6. Large B cell anaplastic lymphoma; status post chemo 1 month, leukopenia now neutropenic 7. 2 Hypoparathyroidism On Calcitrol and Caco3 8 Severe anemia 9 Morbid obesity 10 Skin wounds 11 hypokalemia Assessment/Plan 1. on ampicillin/colitin/caspofungin/flagyl 2 s/p Surgical debridement today 3 PICC line to be removed and send PICC line cx, repeat blood cx 4 Dilaudid pain control 5 K repletion 7 GI/DVT prophylaxsis 8 Apppreciate all consults 9 condition guarded Problems: Subjective 24 Hr Interval Summary Free Text/Dictation S/P Surgical debridement of wounds Fevers 101 Exam/Review of Systems Vital Signs Vitals Vital Signs Date Time Temp Pulse Resp B/P Pulse Ox O2 Delivery O2 Flow Rate FiO2 02/09/17 10:03 92 17 137/62 100 Nasal Cannula 2.0 02/09/17 09:45 97.6 02/06/17 09:09 28 Intake and Output 02/08/17 02/08/17 02/09/17 14:59 22:59 06:59 Intake Total 2250 ml 962 ml Output Total 900 ml 2320 ml Balance 1350 ml -1358 ml Results Result Diagram: 02/09/17 0706 02/07/17 1213 Results 24 hrs Laboratory Tests Test 02/09/17 07:06 White Blood Count 11.2 #H Red Blood Count 3.15 L Hemoglobin 8.9 L Hematocrit 28.1 L Mean Corpuscular Volume 89.2 Mean Corpuscular Hemoglobin 28.3 L Mean Corpuscular Hemoglobin Concent 31.7 L Red Cell Distribution Width 19.3 H Platelet Count 116 L Mean Platelet Volume 11.5 H Neutrophils % 83.6 H Lymphocytes % 2.6 L Monocytes % 9.0 Eosinophils % 0.9 Basophils % 0.3 Nucleated Red Blood Cells % 0.0 Neutrophils # (Manual) 9.4 H Lymphocytes # 0.3 L Monocytes # 1.0 H Eosinophils # 0.1 Basophils # 0.0 Nucleated Red Blood Cells # 0.0 Medications Medications Current Medications Magnesium Hydroxide (Milk Of Mag) 30 ml DAILY PRN PO CONSTIPATION Last administered on 02/05/17 00:29; Admin Dose 30 ML; Start 01/09/17 at 19:30 Sodium Biphosphate/ Sodium Phosphate (Fleet Enema) 133 ml DAILY PRN [place] CONSTIPATION; Start 01/09/17 at 19:30 Nitroglycerin (Nitroglycerin (Sl Tab) 0.4 Mg) 1 tab Q5M PRN SL ANGINA; Start at 19:30 [facility] This patient aranda... PRN PRN XX WOUND CARE; Start 01/10/17 at 03:30 Ondansetron HCl 4 mg 4 mg Q6 IV Last administered on 02/09/17 05:33; Admin Dose 4 MG; Start 01/10/17 at 15:30 Acetaminophen (Ofirmev 1000mg/ 100ml Iv) 100 ml @ 400 mls/hr Q6 IVPB Last administered on 02/09/17 05:34; Admin Dose 400 MLS/HR; Start 01/10/17 at 16:30 IV Flush (NS 10 ml) 10 ml PRN PRN IV IV PROTOCOL; Start 01/10/17 at 20:30 Prednisone 10 mg 10 mg DAILY PO Last administered on 02/08/17 08:12; Admin Dose 10 MG; Start 01/15/17 at 09:00 Hydromorphone HCl/ Dextrose (Dilaudid/D5W) 50 ml @ 2 mls/hr TITRATE IV Last administered on 02/08/17 23:45; Admin Dose 2 MLS/HR; Start 01/23/17 at 16:30 Ergocalciferol (Drisdol) 50,000 unit We@09 PO Last administered on 02/08/17 08 :12; Admin Dose 50,000 UNIT; Start 01/25/17 at 09:00 Calcium Carbonate (Oyster Shell Calcium) 1.25 gm BID PO Last administered on 20:43; Admin Dose 1.25 GM; Start 01/24/17 at 21:00 Pantoprazole (Protonix Tab) 40 mg DAILY@06 PO Last administered on 02/08/17 05 :06; Admin Dose 40 MG; Start 01/26/17 at 06:00 Hydromorphone HCl (Dilaudid) 1 mg Q2 PRN IV PAIN Last administered on 03:21; Admin Dose 1 MG; Start 01/25/17 at 21:00 Atenolol (Tenormin) 25 mg BID PO Last administered on 02/08/17 20:43; Admin Dose 25 MG; Start 01/30/17 at 12:00 Enoxaparin Sodium 30 mg 30 mg DAILY SC Last administered on 02/08/17 08:15; Admin Dose 30 MG; Start 02/01/17 at 16:00 Ampicillin 50 ml @ 100 mls/hr Q8 IVPB Last administered on 02/09/17 05:34; Admin Dose 100 MLS/HR; Start 02/03/17 at 22:00 Metronidazole (Flagyl 500 Mg (Pmx)) 100 ml @ 100 mls/hr Q8 IVPB Last administered on 02/09/17 05:34; Admin Dose 100 MLS/HR; Start 02/03/17 at 22:00 Lactobacillus Acidophilus 1 each 1 each BID PO Last administered on 02/08/17 20:42; Admin Dose 1 EACH; Start 02/03/17 at 21:00 Colistimethate Sodium/Sodium Chloride (Coly-Mycin/NS) 100 ml @ 200 mls/hr Q12 IVPB Last administered on 02/08/17 21:55; Admin Dose 200 MLS/HR; Start at 21:00 Bisacodyl (Dulcolax Supp) 10 mg BID PRN [place] CONSTIPATION; Start 02/04/17 at 19: 30 Sodium Biphosphate/ Sodium Phosphate (Fleet Enema) 133 ml BID PRN [place] CONSTIPATION; Start 02/04/17 at 19:30 Docusate Sodium (Colace) 100 mg BID PRN PO CONSTIPATION; Start 02/04/17 at 19: 30 Sodium Biphosphate/ Sodium Phosphate (Fleet Enema) 133 ml BID PRN [place] CONSTIPATION; Start 02/09/17 at 10:00 Sodium Biphosphate/ Sodium Phosphate (Fleet Enema) 133 ml BID [place] ; Start at 09:00; Status TAMARA MATHIS MD Feb 09, 2017 10:30
[2017-02-09] MEDS: CALCIUM CARBONATE 1.25 GM TAB PO SCH ×2 (11:09→20:09)
[2017-02-09] MEDS: predniSONE 20 MG TAB PO SCH (11:09)
[2017-02-09] MEDS: ATENOLOL 25 MG TAB PO SCH ×2 (11:12→20:14)
[2017-02-09] MEDS: ENOXAPARIN 30 MG/0.3 ML SYG SC SCH (11:18)
[2017-02-09] MEDS: L ACIDOPHIL/B LACTIS/B LONGUM CAPSULE PO SCH ×2 (11:19→20:10)
[2017-02-09] MEDS: COLISTIMETHATE 150 MG in SOD CHLORIDE 0.9% 100 ML IVPB SCH ×2 (11:20→20:20)
--- NOTE | 2017-02-09 16:30 | PN ---
DATE: 02/09/2017 SUBJECTIVE DATA: The patient just came back from debridement of his wounds. He is awake, looks comfortable. No fevers. Denies pain. Temperature 98.2, pulse 108, respirations 18, blood pressure 118/60, saturation 100 on 2 L. LABORATORY AND DIAGNOSTIC DATA: WBC 11.2, H and H 8.9 and 28.1, platelets 160, neutrophils 83.6. BUN 11, creatinine 0.69. MICROBIOLOGY: Blood culture on February 06 grew Klebsiella and Staph species. Indwelling left upper extremity PICC line placed on January 10. Antimicrobials. The patient is on IV colistin, ampicillin, Flagyl. PHYSICAL EXAMINATION: GENERAL: This is a well-developed, ill-appearing, middle-aged, man, who is awake, in no distress. HEENT: Head atraumatic, normocephalic. Sclerae anicteric. Buccal mucosa pink and dry. NECK: Supple. CHEST: Rise symmetrical. Breath sounds diminished at the bases. HEART: S1, S2. ABDOMEN: Soft, bowel sounds present. EXTREMITIES: Without cyanosis. ASSESSMENT: 1. Sepsis with ongoing fevers, improving. 2. Bacteremia, possibly secondary to multiple wounds versus line versus pulmonary source. 3. Multiple infected necrotic wounds with culture growing Pseudomonas, enterococcus, and Klebsiella pneumonia. Multidrug resistant, status post debridement this morning. 4. Cholecystostomy tube placement. 5. B-cell lymphoma. 6. Status post severe acute pancreatitis. 7. Status post neutropenia. 8. Possible pneumonia as per chest x-ray on February 06. PLAN: Patient remains stable. We are going to keep him on current antimicrobials. Discontinue PICC line and send tip for cultures. Continue local wound care as per surgical recommendations. Dictated By: Felicia Hdz NP /paulette/bjc /Document#: [id number]
[2017-02-09 16:41] LABS: CALCIUM 9.5 mg/dl (8.4-10.2); CREATININE 0.94 mg/dl (0.61-1.24); POTASSIUM 3.3 mmol/L (3.5-5.1)
[2017-02-09] MEDS ORDERED: POTASSIUM CHLORIDE 250 ML IVPB ONE (17:30)
--- NOTE | 2017-02-09 17:59 | CONS ---
Date/Time of Note Date/Time of Note DATE: 02/09/17 TIME: 17:57 Assessment/Plan Assessment/Plan Chief Complaint/Hosp Course IMP: 1.Tachycardia- S Tach-NL Ft4. Likely driven by fevers/NL EF by echo this admit. Currently improved 2.lymphoma 3.HTN 4.anemia 5.obesity 6.Hyponatremia-recurrent 7.Pancreatitis-improved 8. Fevers Recc: -Tele -serial ecg's -continue BB as tolerated only -Continue abx's and f/u cx data -IVF hydration -ongoing onc eval and treatment Problems: Consultation Date/Type/Reason Admit Date/Time Jan 09, 2017 at 19:08 Initial Consult Date 01/15/17 Type of Consultation: cardiology Reason for Consultation tachycardia Referring Provider: YAO RAHMAN Exam/Review of Systems Vital Signs Vitals Vital Signs Date Time Temp Pulse Resp B/P Pulse Ox O2 Delivery O2 Flow Rate FiO2 02/09/17 16:00 112 02/09/17 15:21 98.2 16 106/55 97 02/09/17 11:15 Nasal Cannula 3.0 02/06/17 09:09 28 Intake and Output 02/08/17 02/08/17 02/09/17 15:00 23:00 07:00 Intake Total 2250 ml 962 ml Output Total 900 ml 2320 ml Balance 1350 ml -1358 ml Exam Review of Systems: CONSTITUTIONAL: No fevers, chills. PULMONARY: No sob CARDIOVASCULAR: No chest pain/palpitations GASTROINTESTINAL: No nausea/vomiting. GENITOURINARY: No hematuria/dysuria. MUSCULOSKELETAL: No myagias/arthalgias. PSYCHIATRIC: The patient denies depression. NEUROLOGIC: No weakness Constitutional: alert Psych: no complaints Head: normocephalic ENMT: mucosa pink and moist Neck: jvd, supple Respiratory: diminished breath sounds (at bases/B) Cardiovascular: regular rate and rhythm Gastrointestinal: non-tender, soft Musculoskeletal: muscle tone (normal) Extremities: edema (none) Neurological: other (No focal deficits) Results Result Diagram: 02/09/17 0706 02/09/17 1522 Results 24 hrs Laboratory Tests Test 02/09/17 07:06 02/09/17 15:22 White Blood Count 11.2 #H Red Blood Count 3.15 L Hemoglobin 8.9 L Hematocrit 28.1 L Mean Corpuscular Volume 89.2 Mean Corpuscular Hemoglobin 28.3 L Mean Corpuscular Hemoglobin Concent 31.7 L Red Cell Distribution Width 19.3 H Platelet Count 116 L Mean Platelet Volume 11.5 H Neutrophils % 83.6 H Lymphocytes % 2.6 L Monocytes % 9.0 Eosinophils % 0.9 Basophils % 0.3 Nucleated Red Blood Cells % 0.0 Neutrophils # (Manual) 9.4 H Lymphocytes # 0.3 L Monocytes # 1.0 H Eosinophils # 0.1 Basophils # 0.0 Nucleated Red Blood Cells # 0.0 Sodium Level 137 Potassium Level 3.3 L Chloride Level 99 Carbon Dioxide Level 25 Anion Gap 16 Blood Urea Nitrogen 11 Creatinine 0.94 Glucose Level 81 Calcium Level 9.5 Medications Medications Current Medications Magnesium Hydroxide (Milk Of Mag) 30 ml DAILY PRN PO CONSTIPATION Last administered on 02/05/17 00:29; Admin Dose 30 ML; Start 01/09/17 at 19:30 Sodium Biphosphate/ Sodium Phosphate (Fleet Enema) 133 ml DAILY PRN [place] CONSTIPATION; Start 01/09/17 at 19:30 Nitroglycerin (Nitroglycerin (Sl Tab) 0.4 Mg) 1 tab Q5M PRN SL ANGINA; Start at 19:30 Miscellaneous Information (Pending [facility] Order For Wound Care) This patient aranda... PRN PRN XX WOUND CARE; Start 01/10/17 at 03:30 Ondansetron HCl 4 mg 4 mg Q6 IV Last administered on 02/09/17 16:53; Admin Dose 4 MG; Start 01/10/17 at 15:30 Acetaminophen (Ofirmev 1000mg/ 100ml Iv) 100 ml @ 400 mls/hr Q6 IVPB Last administered on 02/09/17 16:56; Admin Dose 400 MLS/HR; Start 01/10/17 at 16:30 IV Flush (NS 10 ml) 10 ml PRN PRN IV IV PROTOCOL; Start 01/10/17 at 20:30 Prednisone 10 mg 10 mg DAILY PO Last administered on 02/09/17 11:09; Admin Dose 10 MG; Start 01/15/17 at 09:00 Hydromorphone HCl/ Dextrose (Dilaudid/D5W) 50 ml @ 2 mls/hr TITRATE IV Last administered on 02/08/17 23:45; Admin Dose 2 MLS/HR; Start 01/23/17 at 16:30 Ergocalciferol (Drisdol) 50,000 unit We@09 PO Last administered on 02/08/17 08 :12; Admin Dose 50,000 UNIT; Start 01/25/17 at 09:00 Calcium Carbonate (Oyster Shell Calcium) 1.25 gm BID PO Last administered on 11:09; Admin Dose 1.25 GM; Start 01/24/17 at 21:00 Pantoprazole (Protonix Tab) 40 mg DAILY@06 PO Last administered on 02/08/17 05 :06; Admin Dose 40 MG; Start 01/26/17 at 06:00 Hydromorphone HCl (Dilaudid) 1 mg Q2 PRN IV PAIN Last administered on 17:01; Admin Dose 1 MG; Start 01/25/17 at 21:00 Atenolol (Tenormin) 25 mg BID PO Last administered on 02/09/17 11:12; Admin Dose 25 MG; Start 01/30/17 at 12:00 Enoxaparin Sodium 30 mg 30 mg DAILY SC Last administered on 02/09/17 11:18; Admin Dose 30 MG; Start 02/01/17 at 16:00 Ampicillin 50 ml @ 100 mls/hr Q8 IVPB Last administered on 02/09/17 13:39; Admin Dose 100 MLS/HR; Start 02/03/17 at 22:00 Metronidazole (Flagyl 500 Mg (Pmx)) 100 ml @ 100 mls/hr Q8 IVPB Last administered on 02/09/17 13:40; Admin Dose 100 MLS/HR; Start 02/03/17 at 22:00 Lactobacillus Acidophilus 1 each 1 each BID PO Last administered on 02/09/17 11:19; Admin Dose 1 EACH; Start 02/03/17 at 21:00 Colistimethate Sodium/Sodium Chloride (Coly-Mycin/NS) 100 ml @ 200 mls/hr Q12 IVPB Last administered on 02/09/17 11:20; Admin Dose 200 MLS/HR; Start at 21:00 Bisacodyl (Dulcolax Supp) 10 mg BID PRN [place] CONSTIPATION; Start 02/04/17 at 19: 30 Sodium Biphosphate/ Sodium Phosphate (Fleet Enema) 133 ml BID PRN [place] CONSTIPATION; Start 02/04/17 at 19:30 Docusate Sodium (Colace) 100 mg BID PRN PO CONSTIPATION; Start 02/04/17 at 19: 30 Sodium Biphosphate/ Sodium Phosphate (Fleet Enema) 133 ml BID PRN [place] CONSTIPATION; Start 02/09/17 at 10:00 Sodium Biphosphate/ Sodium Phosphate 133 ml 133 ml BID [place] ; Start 02/11/17 at 09: 00; Status UNV Potassium Chloride (KCl 40 MEQ/250 ML NS) 250 ml @ 62.5 mls/hr ONCE ONCE IVPB ; Start 02/09/17 at 17:30; Stop 02/09/17 at 21:29 LARRY SANTANA Feb 09, 2017 17:59
--- NOTE | 2017-02-09 20:54 | CONS ---
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 His last chemo was a month ago and hadn't had since due to experiencing similar presenting symptoms. record from pt's oncologist Kain Wisdom - P Left flank mass, CT-guided core needle biopsies with touch imprints: Completely necrotic tissue, insufficient for pathologic evaluation. PER PT REPORT- reportedly scheduled for change in therapy due to what appears to be lack of adequate response CT ABD/PEL/CHEST:(+) multiple areas of nodules likely lymphoma, PT WANT TO GO HOME AND FAMILY ALREADY CALLED HIS PRIMARY ONCOLOGIST TO ARRANGE THE APPT JOSSELIN POST DC OK TO DC HOME IF CLEARED BY PRIMARY AND ALL CONSULTANTS WITH F-UP BY DR WISDOM LEUKOPENIA IN PT WITH HNL POST CHEMO AND WITH SEPTIC PICTURE MONITOR BLOOD COUNT CLOSELY POST NEUPOGEN WBC- FLUCTUATING IMPROVED ON NEUPOGEN X 2 DC NEUPOGEN PANCYTOPENIA POST CHEMO CONT TO MONITOR PRBC NEEDED s/p Sepsis w/worsening lactic acidosis 2/2 PNA + Left flank/hip/leg decub Resolving HCAP => CT ABD/PEL/CHEST: (+) PNA * 01/24 RESPIRATORY CULTURE Final 3+ KLEB PNEUMONIAE CARBAPENEMASE ID W-UP pancreatitis. Abd Pain with N/V: 2/2 known lymphoma - pain mgmt - Anti-emetics Hyponatremia and Hypokalemia: 2/2 vomiting - NS IVF - replete K+ as needed Presumed RAMU: likely pre-renal 2/2 vomiting - cont IVF for now Problems: Consultation Date/Type/Reason Admit Date/Time Jan 09, 2017 at 19:08 Initial Consult Date 01/10/17 Type of Consultation: [facility] Referring Provider: YAO RAHMAN 24 HR Interval Summary Free Text/Dictation VERY VEAK COMPLAIN ON FEVER , BUT T=N Exam/Review of Systems Vital Signs Vitals Vital Signs Date Time Temp Pulse Resp B/P Pulse Ox O2 Delivery O2 Flow Rate FiO2 02/09/17 20:45 97 02/09/17 19:47 98 2.0 02/09/17 19:10 98.8 20 105/55 02/09/17 11:15 Nasal Cannula 02/06/17 09:09 28 Intake and Output 02/08/17 02/08/17 02/09/17 15:00 23:00 07:00 Intake Total 2250 ml 962 ml Output Total 900 ml 2320 ml Balance 1350 ml -1358 ml Exam PHYSICAL EXAMINATION: GENERAL: This is a well-developed, ill-appearing, middle-aged, man, who is awake, in no distress. HEENT: Head atraumatic, normocephalic. Sclerae anicteric. Buccal mucosa pink and dry. NECK: Supple. CHEST: Rise symmetrical. Breath sounds diminished at the bases. HEART: S1, S2. ABDOMEN: Soft, bowel sounds present. EXTREMITIES: Without cyanosis. Results Result Diagram: 02/09/17 0706 02/09/17 1522 Results 24 hrs Laboratory Tests Test 02/09/17 07:06 02/09/17 15:22 White Blood Count 11.2 #H Red Blood Count 3.15 L Hemoglobin 8.9 L Hematocrit 28.1 L Mean Corpuscular Volume 89.2 Mean Corpuscular Hemoglobin 28.3 L Mean Corpuscular Hemoglobin Concent 31.7 L Red Cell Distribution Width 19.3 H Platelet Count 116 L Mean Platelet Volume 11.5 H Neutrophils % 83.6 H Lymphocytes % 2.6 L Monocytes % 9.0 Eosinophils % 0.9 Basophils % 0.3 Nucleated Red Blood Cells % 0.0 Neutrophils # (Manual) 9.4 H Lymphocytes # 0.3 L Monocytes # 1.0 H Eosinophils # 0.1 Basophils # 0.0 Nucleated Red Blood Cells # 0.0 Sodium Level 137 Potassium Level 3.3 L Chloride Level 99 Carbon Dioxide Level 25 Anion Gap 16 Blood Urea Nitrogen 11 Creatinine 0.94 Glucose Level 81 Calcium Level 9.5 Medications Medications Current Medications Magnesium Hydroxide (Milk Of Mag) 30 ml DAILY PRN PO CONSTIPATION Last administered on 02/05/17t 00:29; Admin Dose 30 ML; Start 01/09/17 at 19:30 Sodium Biphosphate/ Sodium Phosphate (Fleet Enema) 133 ml DAILY PRN [place] CONSTIPATION; Start 01/09/17 at 19:30 Nitroglycerin (Nitroglycerin (Sl Tab) 0.4 Mg) 1 tab Q5M PRN SL ANGINA; Start at 19:30 Miscellaneous Information (Pending [facility] Order For Wound Care) This patient aranda... PRN PRN XX WOUND CARE; Start 01/10/17 at 03:30 Ondansetron HCl 4 mg 4 mg Q6 IV Last administered on 02/09/17 16:53; Admin Dose 4 MG; Start 01/10/17 at 15:30 Acetaminophen (Ofirmev 1000mg/ 100ml Iv) 100 ml @ 400 mls/hr Q6 IVPB Last administered on 02/09/17 16:56; Admin Dose 400 MLS/HR; Start 01/10/17 at 16:30 IV Flush (NS 10 ml) 10 ml PRN PRN IV IV PROTOCOL; Start 01/10/17 at 20:30 Prednisone 10 mg 10 mg DAILY PO Last administered on 02/09/17 11:09; Admin Dose 10 MG; Start 01/15/17 at 09:00 Hydromorphone HCl/ Dextrose (Dilaudid/D5W) 50 ml @ 2 mls/hr TITRATE IV Last administered on 02/08/17 23:45; Admin Dose 2 MLS/HR; Start 01/23/17 at 16:30 Ergocalciferol (Drisdol) 50,000 unit We@09 PO Last administered on 02/08/17 08 :12; Admin Dose 50,000 UNIT; Start 01/25/17 at 09:00 Calcium Carbonate (Oyster Shell Calcium) 1.25 gm BID PO Last administered on 20:09; Admin Dose 1.25 GM; Start 01/24/17 at 21:00 Pantoprazole (Protonix Tab) 40 mg DAILY@06 PO Last administered on 02/08/17 05 :06; Admin Dose 40 MG; Start 01/26/17 at 06:00 Hydromorphone HCl (Dilaudid) 1 mg Q2 PRN IV PAIN Last administered on 20:13; Admin Dose 1 MG; Start 01/25/17 at 21:00 Atenolol (Tenormin) 25 mg BID PO Last administered on 02/09/17 20:14; Admin Dose 25 MG; Start 01/30/17 at 12:00 Enoxaparin Sodium 30 mg 30 mg DAILY SC Last administered on 02/09/17 11:18; Admin Dose 30 MG; Start 02/01/17 at 16:00 Ampicillin 50 ml @ 100 mls/hr Q8 IVPB Last administered on 02/09/17 13:39; Admin Dose 100 MLS/HR; Start 02/03/17 at 22:00 Metronidazole (Flagyl 500 Mg (Pmx)) 100 ml @ 100 mls/hr Q8 IVPB Last administered on 02/09/17 13:40; Admin Dose 100 MLS/HR; Start 02/03/17 at 22:00 Lactobacillus Acidophilus 1 each 1 each BID PO Last administered on 02/09/17 20:10; Admin Dose 1 EACH; Start 02/03/17 at 21:00 Colistimethate Sodium/Sodium Chloride (Coly-Mycin/NS) 100 ml @ 200 mls/hr Q12 IVPB Last administered on 02/09/17 20:20; Admin Dose 200 MLS/HR; Start at 21:00 Bisacodyl (Dulcolax Supp) 10 mg BID PRN [place] CONSTIPATION; Start 02/04/17 at 19: 30 Sodium Biphosphate/ Sodium Phosphate (Fleet Enema) 133 ml BID PRN [place] CONSTIPATION; Start 02/04/17 at 19:30 Docusate Sodium (Colace) 100 mg BID PRN PO CONSTIPATION; Start 02/04/17 at 19: 30 Sodium Biphosphate/ Sodium Phosphate (Fleet Enema) 133 ml BID PRN [place] CONSTIPATION; Start 02/09/17 at 10:00 Sodium Biphosphate/ Sodium Phosphate 133 ml 133 ml BID [place] ; Start 02/11/17 at 09: 00; Status UNV Potassium Chloride (KCl 40 MEQ/250 ML NS) 250 ml @ 62.5 mls/hr ONCE ONCE IVPB Last administered on 02/09/17 18:25; Admin Dose 62.5 MLS/HR; Start 02/09/17 at 17:30; Stop 02/09/17 at 21:29 MOIRA BIRMINGHAM MD Feb 09, 2017 20:54
[2017-02-10] VITALS (11 sets, daily range): BP systolic 102–126; BP diastolic 52–69; PULSE 67–112; RESP 16–21
[2017-02-10] MEDS: HYDROmorphONE 1 MG/ML SYG IV PRN ×4 (01:02→14:16)
[2017-02-10] MEDS: HYDROmorphONE 50 MG in DEXTROSE 5% 45 ML IV SCH ×2 (01:03→20:09)
[2017-02-10] MEDS: PANTOPRAZOLE (EC) 40 MG TAB PO SCH (05:21)
[2017-02-10] MEDS: AMPICILLIN 1 GM/NS (PMX) 50 ML IVPB SCH ×3 (05:22→22:18)
[2017-02-10] MEDS: metroNIDAZOLE 500 MG/NS (PMX) 100 ML IVPB SCH ×3 (05:23→23:02)
[2017-02-10] MEDS: ONDANSETRON 4 MG INJ IV SCH ×3 (05:23→17:00)
[2017-02-10] MEDS: ACETAMINOPHEN 1000MG/100ML IV 100 ML IVPB SCH ×3 (06:14→17:00)
[2017-02-10 07:35] LABS: ABNORMAL IP MESSAGE 1; BASOPHILS % 0.3 % (0.0-2.0); EOSINOPHILS % 0.4 % (0.0-7.0); HEMATOCRIT 26.8 % (42.0-52.0); HEMOGLOBIN 8.5 g/dl (14.0-18.0); LYMPHOCYTES # 0.3 10^3/ul (0.8-2.9); LYMPHOCYTES % 4.7 % (15.0-51.0); MEAN CORPUSCULAR HEMOGLOBIN 28.7 pg (29.0-33.0); MEAN CORPUSCULAR HGB CONC 31.7 g/dl (32.0-37.0); MEAN CORPUSCULAR VOLUME 90.5 fl (82.0-101.0); MEAN PLATELET VOLUME 11.3 fl (7.4-10.4); MONOCYTE # 0.9 10^3/ul (0.3-0.9); MONOCYTES % 13.3 % (0.0-11.0); PLATELET COUNT 109 10^3/UL (140-415); POSITIVE DIFF @See below; RED BLOOD COUNT 2.96 10^6/ul (4.70-6.10); RED CELL DISTRIBUTION WIDTH 18.6 % (11.5-14.5); WHITE BLOOD COUNT 6.8 10^3/ul (4.8-10.8)
--- NOTE | 2017-02-10 07:54 | CONS ---
Date/Time of Note Date/Time of Note DATE: 02/10/17 TIME: 07:52 Consultation Date/Type/Reason Admit Date/Time Jan 09, 2017 at 19:08 Initial Consult Date 02/10/17 Type of Consultation: Anesthesiology Reason for Consultation Follow up Referring Provider: YAO RAHMAN 24 HR Interval Summary Free Text/Dictation Pt seen and examined at bedside is POD#1 s/p extensive sacral ulcer and right leg ulcer debridement. Pt tolerated procedure well without complications. He is currently receiving IV narcotic medication for pain control and states he has minimal pain but some nausea. Will continue to follow. Constitutional: improved, no complaints Exam/Review of Systems Vital Signs Vitals Vital Signs Date Time Temp Pulse Resp B/P Pulse Ox O2 Delivery O2 Flow Rate FiO2 02/10/17 07:29 99.6 111 16 120/56 99 02/10/17 01:47 2.0 02/09/17 21:30 Nasal Cannula 02/06/17 09:09 28 Intake and Output 02/09/17 02/09/17 02/10/17 15:00 23:00 07:00 Intake Total 500 ml 750 ml 200 ml Output Total 0 ml 700 ml 1300 ml Balance 500 ml 50 ml -1100 ml Results Result Diagram: 02/10/17 0650 02/09/17 1522 Results 24 hrs Laboratory Tests Test 02/09/17 15:22 02/10/17 06:50 Sodium Level 137 Potassium Level 3.3 L Chloride Level 99 Carbon Dioxide Level 25 Anion Gap 16 Blood Urea Nitrogen 11 Creatinine 0.94 Glucose Level 81 Calcium Level 9.5 White Blood Count 6.8 # Red Blood Count 2.96 L Hemoglobin 8.5 L Hematocrit 26.8 L Mean Corpuscular Volume 90.5 Mean Corpuscular Hemoglobin 28.7 L Mean Corpuscular Hemoglobin Concent 31.7 L Red Cell Distribution Width 18.6 H Platelet Count 109 L Mean Platelet Volume 11.3 H Neutrophils % 77.0 Lymphocytes % 4.7 L Monocytes % 13.3 H Eosinophils % 0.4 Basophils % 0.3 Nucleated Red Blood Cells % 0.0 Neutrophils # (Manual) 5.2 Lymphocytes # 0.3 L Monocytes # 0.9 Eosinophils # 0.0 Basophils # 0.0 Nucleated Red Blood Cells # 0.0 Medications Medications Current Medications Magnesium Hydroxide (Milk Of Mag) 30 ml DAILY PRN PO CONSTIPATION Last administered on 02/05/17 00:29; Admin Dose 30 ML; Start 01/09/17 at 19:30 Sodium Biphosphate/ Sodium Phosphate (Fleet Enema) 133 ml DAILY PRN [place] CONSTIPATION; Start 01/09/17 at 19:30 Nitroglycerin (Nitroglycerin (Sl Tab) 0.4 Mg) 1 tab Q5M PRN SL ANGINA; Start at 19:30 [facility] This patient aranda... PRN PRN XX WOUND CARE; Start 01/10/17 at 03:30 Ondansetron HCl 4 mg 4 mg Q6 IV Last administered on 02/10/17 05:23; Admin Dose 4 MG; Start 01/10/17 at 15:30 Acetaminophen (Ofirmev 1000mg/ 100ml Iv) 100 ml @ 400 mls/hr Q6 IVPB Last administered on 02/10/17 06:14; Admin Dose 400 MLS/HR; Start 01/10/17 at 16:30 IV Flush (NS 10 ml) 10 ml PRN PRN IV IV PROTOCOL; Start 01/10/17 at 20:30 Prednisone 10 mg 10 mg DAILY PO Last administered on 02/09/17 11:09; Admin Dose 10 MG; Start 01/15/17 at 09:00 Hydromorphone HCl/ Dextrose (Dilaudid/D5W) 50 ml @ 2 mls/hr TITRATE IV Last administered on 02/10/17 01:03; Admin Dose 2 MLS/HR; Start 01/23/17 at 16:30 Ergocalciferol (Drisdol) 50,000 unit We@09 PO Last administered on 02/08/17 08 :12; Admin Dose 50,000 UNIT; Start 01/25/17 at 09:00 Calcium Carbonate (Oyster Shell Calcium) 1.25 gm BID PO Last administered on 20:09; Admin Dose 1.25 GM; Start 01/24/17 at 21:00 Pantoprazole (Protonix Tab) 40 mg DAILY@06 PO Last administered on 02/10/17 05: 21; Admin Dose 40 MG; Start 01/26/17 at 06:00 Hydromorphone HCl (Dilaudid) 1 mg Q2 PRN IV PAIN Last administered on 02/10/17 04:37; Admin Dose 1 MG; Start 01/25/17 at 21:00 Atenolol (Tenormin) 25 mg BID PO Last administered on 02/09/17 20:14; Admin Dose 25 MG; Start 01/30/17 at 12:00 Enoxaparin Sodium 30 mg 30 mg DAILY SC Last administered on 02/09/17 11:18; Admin Dose 30 MG; Start 02/01/17 at 16:00 Ampicillin 50 ml @ 100 mls/hr Q8 IVPB Last administered on 02/10/17 05:22; Admin Dose 100 MLS/HR; Start 02/03/17 at 22:00 Metronidazole (Flagyl 500 Mg (Pmx)) 100 ml @ 100 mls/hr Q8 IVPB Last administered on 02/10/17 05:23; Admin Dose 100 MLS/HR; Start 02/03/17 at 22:00 Lactobacillus Acidophilus 1 each 1 each BID PO Last administered on 02/09/17 20:10; Admin Dose 1 EACH; Start 02/03/17 at 21:00 Colistimethate Sodium/Sodium Chloride (Coly-Mycin/NS) 100 ml @ 200 mls/hr Q12 IVPB Last administered on 02/09/17 20:20; Admin Dose 200 MLS/HR; Start at 21:00 Bisacodyl (Dulcolax Supp) 10 mg BID PRN [place] CONSTIPATION; Start 02/04/17 at 19: 30 Sodium Biphosphate/ Sodium Phosphate (Fleet Enema) 133 ml BID PRN [place] CONSTIPATION; Start 02/04/17 at 19:30 Docusate Sodium (Colace) 100 mg BID PRN PO CONSTIPATION; Start 02/04/17 at 19: 30 Sodium Biphosphate/ Sodium Phosphate (Fleet Enema) 133 ml BID PRN [place] CONSTIPATION; Start 02/09/17 at 10:00 Sodium Biphosphate/ Sodium Phosphate (Fleet Enema) 133 ml BID [place] ; Start at 09:00; Status JONATHAN MAURO Feb 10, 2017 07:54
[2017-02-10 08:01] LABS: ALBUMIN 2.8 g/dl (3.3-4.9); ALBUMIN/GLOBULIN RATIO 1.03; BILIRUBIN,DIRECT 0.1 mg/dl (0.00-0.20); BILIRUBIN,INDIRECT 1.1 mg/dl (0-1.1); BILIRUBIN,TOTAL 1.2 mg/dl (0.2-1.3); CALCIUM 9.4 mg/dl (8.4-10.2); CREATININE 0.98 mg/dl (0.61-1.24); POTASSIUM 3.2 mmol/L (3.5-5.1); TOTAL PROTEIN 5.5 g/dl (6.1-8.1)
[2017-02-10] MEDS: POTASSIUM CHLORIDE (SR) 20 MEQ TAB PO SCH (08:49)
[2017-02-10] MEDS: CALCIUM CARBONATE 1.25 GM TAB PO SCH ×2 (08:49→20:45)
[2017-02-10] MEDS: L ACIDOPHIL/B LACTIS/B LONGUM CAPSULE PO SCH ×2 (08:49→20:45)
[2017-02-10] MEDS: predniSONE 20 MG TAB PO SCH (08:49)
[2017-02-10] MEDS: ATENOLOL 25 MG TAB PO SCH ×2 (08:50→20:47)
[2017-02-10] MEDS: ENOXAPARIN 30 MG/0.3 ML SYG SC SCH (09:00)
[2017-02-10] MEDS: COLISTIMETHATE 150 MG in SOD CHLORIDE 0.9% 100 ML IVPB SCH ×2 (09:02→20:45)
--- NOTE | 2017-02-10 10:26 | CONS ---
Date/Time of Note Date/Time of Note DATE: 02/10/17 TIME: 10:20 Assessment/Plan Assessment/Plan Chief Complaint/Hosp Course Impression: 1. Multiple superficial wounds on the back and flank region and behind the right knee 2. Status post percutaneous cholecystostomy drain placement 02/02/2017 3. Small right pleural effusion with atelectasis and right lung base pneumonia. 4. Large B cell anaplastic lymphoma; status post chemo 1 month prior to presentation 5. Sepsis 6. Hyponatremia 7. Hypokalemia 8. Acute renal injury 9. Excisional debridement of multiple sites including large area over the lumbar and flank region, 40 cm x 15 cm x 1 cm, smaller area on the right flank region, 10 cm x 4 cm x 1 cm, and an area behind the right knee, approximately 9 cm x 7 cm x 1 cm with removal of 15 cm x 10 cm x 1 cm soft tissue using scissors to a depth of 1 cm to subcutaneous fat Recommendations: 1. pain control 2. Monitor hemoglobin and hematocrit 3. transfuse PRN hgb less than 8 4. continue all other supportive therapy including antibiotics Problems: Consultation Date/Type/Reason Admit Date/Time Jan 09, 2017 at 19:08 Initial Consult Date 01/15/17 Type of Consultation: GI Referring Provider: YAO RAHMAN 24 HR Interval Summary Free Text/Dictation reduced appetite, no n/v, s/p debridement by Dr. Carlos yesterday Exam/Review of Systems Vital Signs Vitals Vital Signs Date Time Temp Pulse Resp B/P Pulse Ox O2 Delivery O2 Flow Rate FiO2 02/10/17 09:32 Nasal Cannula 02/10/17 08:14 108 02/10/17 07:29 99.6 16 120/56 99 02/10/17 01:47 2.0 02/06/17 09:09 28 Intake and Output 02/09/17 02/09/17 02/10/17 15:00 23:00 07:00 Intake Total 500 ml 750 ml 200 ml Output Total 0 ml 700 ml 1300 ml Balance 500 ml 50 ml -1100 ml Exam Constitutional: alert, oriented, well developed Psych: nl mood/affect, no complaints Head: atraumatic, normocephalic Eyes: EOMI, nl conjunctiva, nl lids ENMT: nl external ears & nose, nl lips & teeth, nl nasal mucosa & septum Neck: non-tender, supple Respiratory: clear to auscultation, normal air movement Cardiovascular: nl pulses, regular rate and rhythm Gastrointestinal: bowel sounds, non-tender, soft Results Result Diagram: 02/10/17 0650 02/10/17 0650 Results 24 hrs Laboratory Tests Test 02/09/17 15:22 02/10/17 06:50 Sodium Level 137 130 L Potassium Level 3.3 L 3.2 L Chloride Level 99 97 Carbon Dioxide Level 25 27 Anion Gap 16 9 # Blood Urea Nitrogen 11 12 Creatinine 0.94 0.98 Glucose Level 81 88 Calcium Level 9.5 9.4 White Blood Count 6.8 # Red Blood Count 2.96 L Hemoglobin 8.5 L Hematocrit 26.8 L Mean Corpuscular Volume 90.5 Mean Corpuscular Hemoglobin 28.7 L Mean Corpuscular Hemoglobin Concent 31.7 L Red Cell Distribution Width 18.6 H Platelet Count 109 L Mean Platelet Volume 11.3 H Neutrophils % 77.0 Lymphocytes % 4.7 L Monocytes % 13.3 H Eosinophils % 0.4 Basophils % 0.3 Nucleated Red Blood Cells % 0.0 Neutrophils # (Manual) 5.2 Lymphocytes # 0.3 L Monocytes # 0.9 Eosinophils # 0.0 Basophils # 0.0 Nucleated Red Blood Cells # 0.0 Total Bilirubin 1.2 Direct Bilirubin 0.10 Indirect Bilirubin 1.1 Aspartate Amino Transf (AST/SGOT) 49 H Alanine Aminotransferase (ALT/SGPT) 42 Alkaline Phosphatase 177 H Total Protein 5.5 L Albumin 2.8 L Globulin 2.70 Albumin/Globulin Ratio 1.03 Medications Medications Current Medications Magnesium Hydroxide (Milk Of Mag) 30 ml DAILY PRN PO CONSTIPATION Last administered on 02/05/17 00:29; Admin Dose 30 ML; Start 01/09/17 at 19:30 Sodium Biphosphate/ Sodium Phosphate (Fleet Enema) 133 ml DAILY PRN [place] CONSTIPATION; Start 01/09/17 at 19:30 Nitroglycerin (Nitroglycerin (Sl Tab) 0.4 Mg) 1 tab Q5M PRN SL ANGINA; Start at 19:30 Miscellaneous Information (Pending [facility] Order For Wound Care) This patient aranda... PRN PRN XX WOUND CARE; Start 01/10/17 at 03:30 Ondansetron HCl 4 mg 4 mg Q6 IV Last administered on 02/10/17 05:23; Admin Dose 4 MG; Start 01/10/17 at 15:30 Acetaminophen (Ofirmev 1000mg/ 100ml Iv) 100 ml @ 400 mls/hr Q6 IVPB Last administered on 02/10/17 06:14; Admin Dose 400 MLS/HR; Start 01/10/17 at 16:30 IV Flush (NS 10 ml) 10 ml PRN PRN IV IV PROTOCOL; Start 01/10/17 at 20:30 Prednisone 10 mg 10 mg DAILY PO Last administered on 02/10/17 08:49; Admin Dose 10 MG; Start 01/15/17 at 09:00 Hydromorphone HCl/ Dextrose (Dilaudid/D5W) 50 ml @ 2 mls/hr TITRATE IV Last administered on 02/10/17 01:03; Admin Dose 2 MLS/HR; Start 01/23/17 at 16:30 Ergocalciferol (Drisdol) 50,000 unit We@09 PO Last administered on 02/08/17 08 :12; Admin Dose 50,000 UNIT; Start 01/25/17 at 09:00 Calcium Carbonate (Oyster Shell Calcium) 1.25 gm BID PO Last administered on 08:49; Admin Dose 1.25 GM; Start 01/24/17 at 21:00 Pantoprazole (Protonix Tab) 40 mg DAILY@06 PO Last administered on 02/10/17 05: 21; Admin Dose 40 MG; Start 01/26/17 at 06:00 Hydromorphone HCl (Dilaudid) 1 mg Q2 PRN IV PAIN Last administered on 02/10/17 08:50; Admin Dose 1 MG; Start 01/25/17 at 21:00 Atenolol (Tenormin) 25 mg BID PO Last administered on 02/10/17 08:50; Admin Dose 25 MG; Start 01/30/17 at 12:00 Enoxaparin Sodium 30 mg 30 mg DAILY SC Last administered on 02/10/17 09:00; Admin Dose 30 MG; Start 02/01/17 at 16:00 Ampicillin 50 ml @ 100 mls/hr Q8 IVPB Last administered on 02/10/17 05:22; Admin Dose 100 MLS/HR; Start 02/03/17 at 22:00 Metronidazole (Flagyl 500 Mg (Pmx)) 100 ml @ 100 mls/hr Q8 IVPB Last administered on 02/10/17 05:23; Admin Dose 100 MLS/HR; Start 02/03/17 at 22:00 Lactobacillus Acidophilus 1 each 1 each BID PO Last administered on 02/10/17 08 :49; Admin Dose 1 EACH; Start 02/03/17 at 21:00 Colistimethate Sodium/Sodium Chloride (Coly-Mycin/NS) 100 ml @ 200 mls/hr Q12 IVPB Last administered on 02/10/17 09:02; Admin Dose 200 MLS/HR; Start at 21:00 Bisacodyl (Dulcolax Supp) 10 mg BID PRN [place] CONSTIPATION; Start 02/04/17 at 19: 30 Sodium Biphosphate/ Sodium Phosphate (Fleet Enema) 133 ml BID PRN [place] CONSTIPATION; Start 02/04/17 at 19:30 Docusate Sodium (Colace) 100 mg BID PRN PO CONSTIPATION; Start 02/04/17 at 19: 30 Sodium Biphosphate/ Sodium Phosphate (Fleet Enema) 133 ml BID PRN [place] CONSTIPATION; Start 02/09/17 at 10:00 Sodium Biphosphate/ Sodium Phosphate (Fleet Enema) 133 ml BID [place] ; Start at 09:00; Status UNV Potassium Chloride (Klor-Con 20) 40 meq DAILY PO Last administered on 02/10/17 08:49; Admin Dose 40 MEQ; Start 02/10/17 at 09:00 YAO LUCAS MD Feb 10, 2017 10:26
--- NOTE | 2017-02-10 13:52 | PN ---
Date/Time of Note Date/Time of Note DATE: 02/10/17 TIME: 13:47 Assessment/Plan Lines/Catheters IV Catheter Type (from Nrs): [place] in Place (from Nrs): No Assessment/Plan Assessment/Plan [facility] Progress Note Date of Service: 02/10/2017 Place of service: [facility] 5W tele Today's Assessment & Plan: Overall stable. Abdomen remains benign. Sacral and superficial wounds appear ok after operative debridement. Still with sig fevers and other medical issues. Source unclear. No indication for acute surgical intervention. Discussed wound care with wound nurses. With above assessment, I've recommended the followin. Continue aggressive medical management 2. Cont full liquid diet and advance slowly 3. Follow GIs recommendations 4. If it would make a difference in management, may consider percutaneous biopsy of segment 6 area of abnormality in the liver 5. Multidisciplinary tumor board presentation and discussions 6. Consideration for clinical trials once improved medically 7. LFT's, amylase and lipase checks tomorrow with labs 8. Will likely benefit from aggressive bowel regimen (some of the pain likely from constipation) 9. Percutaneous cholecystostomy drain care teachings to patient and family 10. Aggressive wound care Thank you very much for having me involved in the care of this very pleasant patient and wonderful family. If you have any questions, please feel free to contact me at [phone]. Nature of presenting problem: High severity Please note that, given the extensive number of diagnoses or management options , the extensive amount and/or complexity of data needed to be reviewed, and high risk of complications and/or morbidity or mortality, this qualifies as high complexity type of decision-making. Disclaimer: Inadvertent spelling and grammatical errors are likely due to EHR/ dictation software use and do not reflect on the quality of delivered patient care. Also, please note that the electronic time recorded on this node does not necessarily reflect the actual time of the visit. 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 HIDA scan positive 01/28/2017. Status post percutaneous cholecystostomy drain placement 02/02/2017. Comorbidities: 1. Multiple superficial wounds on the back and flank region and behind the right knee. S/P excisional debridement of multiple sites including large area over the lumbar and flank region, 40 cm x 15 cm x 1 cm, smaller area on the right flank region, 10 cm x 4 cm x 1 cm, and an area behind the right knee, approximately 9 cm x 7 cm x 1 cm with removal of 15 cm x 10 cm x 1 cm soft tissue using scissors to a depth of 1 cm to subcutaneous fat at [facility] 02/09/17 2. BMI 40.7 3. Small right pleural effusion with atelectasis and right lung base pneumonia. 4. Large B cell anaplastic lymphoma; status post chemo 1 month prior to presentation 5. Sepsis 6. Hyponatremia 7. Hypokalemia 8. Acute renal injury 9. Status post percutaneous cholecystostomy drain placement 02/02/2017 Subjective: No major events or complaints; reported feeling ok and no significant abdominal pain and under control with medications; no significant reported nausea or vomiting and no major diarrhea; no sob or cp; + flatus; + BM; minimal to no activity. Fevers and sweating are the main issues. Objective: Vitals: See below I's & O's: See below Exam: GENERAL: On exam, the patient was lying in bed and appeared to be comfortable and in no acute distress. Not very diaphoretic. ABDOMEN: Soft, minimal to no tenderness and nondistended. There are no peritoneal signs or guarding. Perc GB drain with thick green bilious output. SKIN: Skin appears to be pink and feels warm to touch. Number of superficial wounds on the extremities and on the sacral region with intact dressings that we took off and inspected. Wound beds appear to be clean without obvious further necrosis or infection. Surrounding skin pink and warm without significant erythema. NEUROLOGIC: Patient is awake, alert, and follows commands appropriately. Labs: See below Exam/Review of Systems Vital Signs Vitals Vital Signs Date Time Temp Pulse Resp B/P Pulse Ox O2 Delivery O2 Flow Rate FiO2 02/10/17 16:35 75 02/10/17 15:22 97.5 18 102/52 98 02/10/17 12:02 2.0 02/10/17 09:32 Nasal Cannula 02/06/17 09:09 28 Intake and Output 02/09/17 02/09/17 02/10/17 15:00 23:00 07:00 Intake Total 500 ml 750 ml 200 ml Output Total 0 ml 700 ml 1300 ml Balance 500 ml 50 ml -1100 ml Results Result Diagram: 02/10/17 0650 02/10/17 0650 LENKA HERNANDEZ M.D. Feb 10, 2017 13:52
--- NOTE | 2017-02-10 14:00 | PN ---
DATE: 02/10/2017 SUBJECTIVE DATA: No acute changes overnight. The patient is alert, feels better, looks comfortable. OBJECTIVE DATA: VITAL SIGNS: T-max 101.4, temp current 99.7, pulse 78, respirations 16, blood pressure 106/57, and saturation 97 on 2 L. LABORATORY AND DIAGNOSTIC DATA: WBC 6.8, H and H 8.5 and 268, platelets 109, and neutrophils 77. BUN 12 and creatinine 0.98. MICROBIOLOGY: Blood culture on 02/06/2017 grew coag-negative Staph and Klebsiella pneumonia, carbapenem resistant. Wound culture on 01/31/2017 grew Klebsiella pneumonia, Enterococcus and Pseudomonas aeruginosa. ANTIMICROBIALS: The patient is on IV colistin, ampicillin and Flagyl. INDWELLINGS: Peripheral IV. Status post PICC line discontinued. PHYSICAL EXAMINATION: GENERAL: This is a wasted, well-developed middle-aged man, who is alert, in no distress. HEENT: Head atraumatic, normocephalic. Sclerae anicteric. Buccal mucosa pink. NECK: Supple. CHEST: Rise symmetrical. Breath sounds clear. HEART: S1, S2. ABDOMEN: Soft, bowel sounds present. EXTREMITIES: Without cyanosis. Skin with multiple wounds. Dressings intact. ASSESSMENT: 1. Sepsis with bacteremia, status post PICC line discontinued. 2. Multiple infected necrotic wounds, status post debridement. 3. Acute pancreatitis and cholecystitis status post cholecystostomy tube placement. 4. B-cell lymphoma. 5. Status post neutropenia. PLAN: 1. The patient remains stable on appropriate antibiotics, PICC line was discontinued. 2. Tip culture pending. 3. We will continue him on current regimen. 4. Continue local wound care as per surgical team. 5. Repeat cultures p.r.n. 6. Per discussion with Pulmonary team. 7. Radiographic findings of his chest x-ray on 02/06/2017 consistent with metastasis, no pneumonia. Dictated By: Felicia Hdz NP /paulette/rajendra /Document#: [id number]
--- NOTE | 2017-02-10 15:03 | CONS ---
Date/Time of Note Date/Time of Note DATE: 02/10/17 TIME: 15:00 Assessment/Plan Assessment/Plan Chief Complaint/Hosp Course IMP: 1.Tachycardia- S Tach-NL Ft4. Likely driven by fevers/NL EF by echo this admit. Currently improved 2.lymphoma 3.HTN 4.anemia 5.obesity 6.Hyponatremia-recurrent 7.Pancreatitis-improved 8. Fevers 9. Cholecystitis s/p drain placement Recc: -Tele -serial ecg's -continue BB as tolerated only -Continue abx's and f/u cx data -IVF hydration -ongoing onc eval and treatment with GI and surgical follow-up Problems: Consultation Date/Type/Reason Admit Date/Time Jan 09, 2017 at 19:08 Initial Consult Date 01/15/17 Type of Consultation: cardiology Reason for Consultation tachycardia Referring Provider: YAO RAHMAN Exam/Review of Systems Vital Signs Vitals Vital Signs Date Time Temp Pulse Resp B/P Pulse Ox O2 Delivery O2 Flow Rate FiO2 02/10/17 12:20 99 02/10/17 12:02 2.0 02/10/17 11:31 99.7 16 106/57 97 02/10/17 09:32 Nasal Cannula 02/06/17 09:09 28 Intake and Output 02/09/17 02/09/17 02/10/17 15:00 23:00 07:00 Intake Total 500 ml 750 ml 200 ml Output Total 0 ml 700 ml 1300 ml Balance 500 ml 50 ml -1100 ml Exam Review of Systems: CONSTITUTIONAL: No fevers, chills. PULMONARY: No sob CARDIOVASCULAR: No chest pain/palpitations GASTROINTESTINAL: No nausea/vomiting. GENITOURINARY: No hematuria/dysuria. MUSCULOSKELETAL: No myagias/arthalgias. PSYCHIATRIC: The patient denies depression. NEUROLOGIC: No weakness Constitutional: alert, oriented Psych: no complaints ENMT: mucosa pink and moist Neck: jvd (8 cm water), supple Respiratory: diminished breath sounds (at bases/B) Cardiovascular: regular rate and rhythm Gastrointestinal: non-tender, soft Musculoskeletal: muscle tone (normal) Extremities: edema (none) Neurological: lethargic Results Result Diagram: 02/10/17 0650 02/10/17 0650 Results 24 hrs Laboratory Tests Test 02/09/17 15:22 02/10/17 06:50 Sodium Level 137 130 L Potassium Level 3.3 L 3.2 L Chloride Level 99 97 Carbon Dioxide Level 25 27 Anion Gap 16 9 # Blood Urea Nitrogen 11 12 Creatinine 0.94 0.98 Glucose Level 81 88 Calcium Level 9.5 9.4 White Blood Count 6.8 # Red Blood Count 2.96 L Hemoglobin 8.5 L Hematocrit 26.8 L Mean Corpuscular Volume 90.5 Mean Corpuscular Hemoglobin 28.7 L Mean Corpuscular Hemoglobin Concent 31.7 L Red Cell Distribution Width 18.6 H Platelet Count 109 L Mean Platelet Volume 11.3 H Neutrophils % 77.0 Lymphocytes % 4.7 L Monocytes % 13.3 H Eosinophils % 0.4 Basophils % 0.3 Nucleated Red Blood Cells % 0.0 Neutrophils # (Manual) 5.2 Lymphocytes # 0.3 L Monocytes # 0.9 Eosinophils # 0.0 Basophils # 0.0 Nucleated Red Blood Cells # 0.0 Total Bilirubin 1.2 Direct Bilirubin 0.10 Indirect Bilirubin 1.1 Aspartate Amino Transf (AST/SGOT) 49 H Alanine Aminotransferase (ALT/SGPT) 42 Alkaline Phosphatase 177 H Total Protein 5.5 L Albumin 2.8 L Globulin 2.70 Albumin/Globulin Ratio 1.03 Medications Medications Current Medications Magnesium Hydroxide (Milk Of Mag) 30 ml DAILY PRN PO CONSTIPATION Last administered on 02/05/17 00:29; Admin Dose 30 ML; Start 01/09/17 at 19:30 Sodium Biphosphate/ Sodium Phosphate (Fleet Enema) 133 ml DAILY PRN [place] CONSTIPATION; Start 01/09/17 at 19:30 Nitroglycerin (Nitroglycerin (Sl Tab) 0.4 Mg) 1 tab Q5M PRN SL ANGINA; Start at 19:30 Miscellaneous Information (Pending [facility]) This patient aranda... PRN PRN XX WOUND CARE; Start 01/10/17 at 03:30 Ondansetron HCl 4 mg 4 mg Q6 IV Last administered on 02/10/17 11:11; Admin Dose 4 MG; Start 01/10/17 at 15:30 Acetaminophen (Ofirmev 1000mg/ 100ml Iv) 100 ml @ 400 mls/hr Q6 IVPB Last administered on 02/10/17 11:12; Admin Dose 400 MLS/HR; Start 01/10/17 at 16:30 IV Flush (NS 10 ml) 10 ml PRN PRN IV IV PROTOCOL; Start 01/10/17 at 20:30 Prednisone 10 mg 10 mg DAILY PO Last administered on 02/10/17 08:49; Admin Dose 10 MG; Start 01/15/17 at 09:00 Hydromorphone HCl/ Dextrose (Dilaudid/D5W) 50 ml @ 2 mls/hr TITRATE IV Last administered on 02/10/17 01:03; Admin Dose 2 MLS/HR; Start 01/23/17 at 16:30 Ergocalciferol (Drisdol) 50,000 unit We@09 PO Last administered on 02/08/17 08 :12; Admin Dose 50,000 UNIT; Start 01/25/17 at 09:00 Calcium Carbonate (Oyster Shell Calcium) 1.25 gm BID PO Last administered on 08:49; Admin Dose 1.25 GM; Start 01/24/17 at 21:00 Pantoprazole (Protonix Tab) 40 mg DAILY@06 PO Last administered on 02/10/17 05: 21; Admin Dose 40 MG; Start 01/26/17 at 06:00 Hydromorphone HCl (Dilaudid) 1 mg Q2 PRN IV PAIN Last administered on 02/10/17 14:16; Admin Dose 1 MG; Start 01/25/17 at 21:00 Atenolol (Tenormin) 25 mg BID PO Last administered on 02/10/17 08:50; Admin Dose 25 MG; Start 01/30/17 at 12:00 Enoxaparin Sodium 30 mg 30 mg DAILY SC Last administered on 02/10/17 09:00; Admin Dose 30 MG; Start 02/01/17 at 16:00 Ampicillin 50 ml @ 100 mls/hr Q8 IVPB Last administered on 02/10/17 13:09; Admin Dose 100 MLS/HR; Start 02/03/17 at 22:00 Metronidazole (Flagyl 500 Mg (Pmx)) 100 ml @ 100 mls/hr Q8 IVPB Last administered on 02/10/17 13:08; Admin Dose 100 MLS/HR; Start 02/03/17 at 22:00 Lactobacillus Acidophilus 1 each 1 each BID PO Last administered on 02/10/17 08 :49; Admin Dose 1 EACH; Start 02/03/17 at 21:00 Colistimethate Sodium/Sodium Chloride (Coly-Mycin/NS) 100 ml @ 200 mls/hr Q12 IVPB Last administered on 02/10/17 09:02; Admin Dose 200 MLS/HR; Start at 21:00 Bisacodyl (Dulcolax Supp) 10 mg BID PRN [place] CONSTIPATION; Start 02/04/17 at 19: 30 Sodium Biphosphate/ Sodium Phosphate (Fleet Enema) 133 ml BID PRN [place] CONSTIPATION; Start 02/04/17 at 19:30 Docusate Sodium (Colace) 100 mg BID PRN PO CONSTIPATION; Start 02/04/17 at 19: 30 Sodium Biphosphate/ Sodium Phosphate (Fleet Enema) 133 ml BID PRN [place] CONSTIPATION; Start 02/09/17 at 10:00 Sodium Biphosphate/ Sodium Phosphate (Fleet Enema) 133 ml BID HI ; Start at 09:00; Status UNV Potassium Chloride (Klor-Con 20) 40 meq DAILY PO Last administered on 02/10/17 08:49; Admin Dose 40 MEQ; Start 02/10/17 at 09:00 LARRY SANTANA Feb 10, 2017 15:03
--- NOTE | 2017-02-10 18:33 | CONS ---
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 His last chemo was a month ago and hadn't had since due to experiencing similar presenting symptoms. record from pt's oncologist Kain Wisdom - P Left flank mass, CT-guided core needle biopsies with touch imprints: Completely necrotic tissue, insufficient for pathologic evaluation. PER PT REPORT- reportedly scheduled for change in therapy due to what appears to be lack of adequate response CT ABD/PEL/CHEST:(+) multiple areas of nodules likely lymphoma, PT WANT TO GO HOME AND FAMILY ALREADY CALLED HIS PRIMARY ONCOLOGIST TO ARRANGE THE APPT JOSSELIN POST DC OK TO DC HOME IF CLEARED BY PRIMARY AND ALL CONSULTANTS WITH F-UP BY DR WISDOM LEUKOPENIA IN PT WITH HNL POST CHEMO AND WITH SEPTIC PICTURE MONITOR BLOOD COUNT CLOSELY POST NEUPOGEN WBC- FLUCTUATING IMPROVED ON NEUPOGEN X 2 DC NEUPOGEN PANCYTOPENIA POST CHEMO CONT TO MONITOR PRBC NEEDED s/p Sepsis w/worsening lactic acidosis 2/2 PNA + Left flank/hip/leg decub Resolving HCAP => CT ABD/PEL/CHEST: (+) PNA * 01/24 RESPIRATORY CULTURE Final 3+ KLEB PNEUMONIAE CARBAPENEMASE ID W-UP pancreatitis. Abd Pain with N/V: 2/2 known lymphoma - pain mgmt - Anti-emetics Hyponatremia and Hypokalemia: 2/2 vomiting - NS IVF - replete K+ as needed Presumed RAMU: likely pre-renal 2/2 vomiting - cont IVF for now Problems: Consultation Date/Type/Reason Admit Date/Time Jan 09, 2017 at 19:08 Initial Consult Date 01/10/17 Type of Consultation: [facility] Referring Provider: YAO RAHMAN 24 HR Interval Summary Free Text/Dictation ALL NOTED Exam/Review of Systems Vital Signs Vitals Vital Signs Date Time Temp Pulse Resp B/P Pulse Ox O2 Delivery O2 Flow Rate FiO2 02/10/17 16:35 75 02/10/17 15:22 97.5 18 102/52 98 02/10/17 12:02 2.0 02/10/17 09:32 Nasal Cannula 02/06/17 09:09 28 Intake and Output 02/09/17 02/09/17 02/10/17 15:00 23:00 07:00 Intake Total 500 ml 750 ml 200 ml Output Total 0 ml 700 ml 1300 ml Balance 500 ml 50 ml -1100 ml Exam GENERAL: This is a well-developed, ill-appearing, middle-aged, man, who is awake, in no distress. HEENT: Head atraumatic, normocephalic. Sclerae anicteric. Buccal mucosa pink and dry. NECK: Supple. CHEST: Rise symmetrical. Breath sounds diminished at the bases. HEART: S1, S2. ABDOMEN: Soft, bowel sounds present. EXTREMITIES: Without cyanosis. + WOUNDS Results Result Diagram: 02/10/17 0650 02/10/17 0650 Results 24 hrs Laboratory Tests Test 02/10/17 06:50 White Blood Count 6.8 # Red Blood Count 2.96 L Hemoglobin 8.5 L Hematocrit 26.8 L Mean Corpuscular Volume 90.5 Mean Corpuscular Hemoglobin 28.7 L Mean Corpuscular Hemoglobin Concent 31.7 L Red Cell Distribution Width 18.6 H Platelet Count 109 L Mean Platelet Volume 11.3 H Neutrophils % 77.0 Lymphocytes % 4.7 L Monocytes % 13.3 H Eosinophils % 0.4 Basophils % 0.3 Nucleated Red Blood Cells % 0.0 Neutrophils # (Manual) 5.2 Lymphocytes # 0.3 L Monocytes # 0.9 Eosinophils # 0.0 Basophils # 0.0 Nucleated Red Blood Cells # 0.0 Sodium Level 130 L Potassium Level 3.2 L Chloride Level 97 Carbon Dioxide Level 27 Anion Gap 9 # Blood Urea Nitrogen 12 Creatinine 0.98 Glucose Level 88 Calcium Level 9.4 Total Bilirubin 1.2 Direct Bilirubin 0.10 Indirect Bilirubin 1.1 Aspartate Amino Transf (AST/SGOT) 49 H Alanine Aminotransferase (ALT/SGPT) 42 Alkaline Phosphatase 177 H Total Protein 5.5 L Albumin 2.8 L Globulin 2.70 Albumin/Globulin Ratio 1.03 Medications Medications Current Medications Magnesium Hydroxide (Milk Of Mag) 30 ml DAILY PRN PO CONSTIPATION Last administered on 02/05/17t 00:29; Admin Dose 30 ML; Start 01/09/17 at 19:30 Sodium Biphosphate/ Sodium Phosphate (Fleet Enema) 133 ml DAILY PRN [place] CONSTIPATION; Start 01/09/17 at 19:30 Nitroglycerin (Nitroglycerin (Sl Tab) 0.4 Mg) 1 tab Q5M PRN SL ANGINA; Start at 19:30 Miscellaneous Information (Pending [facility] Order For Wound Care) This patient aranda... PRN PRN XX WOUND CARE; Start 01/10/17 at 03:30 Ondansetron HCl 4 mg 4 mg Q6 IV Last administered on 02/10/17 17:00; Admin Dose 4 MG; Start 01/10/17 at 15:30 Acetaminophen (Ofirmev 1000mg/ 100ml Iv) 100 ml @ 400 mls/hr Q6 IVPB Last administered on 02/10/17 17:00; Admin Dose 400 MLS/HR; Start 01/10/17 at 16:30 IV Flush (NS 10 ml) 10 ml PRN PRN IV IV PROTOCOL; Start 01/10/17 at 20:30 Prednisone 10 mg 10 mg DAILY PO Last administered on 02/10/17 08:49; Admin Dose 10 MG; Start 01/15/17 at 09:00 Hydromorphone HCl/ Dextrose (Dilaudid/D5W) 50 ml @ 2 mls/hr TITRATE IV Last administered on 02/10/17 01:03; Admin Dose 2 MLS/HR; Start 01/23/17 at 16:30 Ergocalciferol (Drisdol) 50,000 unit We@09 PO Last administered on 02/08/17 08 :12; Admin Dose 50,000 UNIT; Start 01/25/17 at 09:00 Calcium Carbonate (Oyster Shell Calcium) 1.25 gm BID PO Last administered on 08:49; Admin Dose 1.25 GM; Start 01/24/17 at 21:00 Pantoprazole (Protonix Tab) 40 mg DAILY@06 PO Last administered on 02/10/17 05: 21; Admin Dose 40 MG; Start 01/26/17 at 06:00 Hydromorphone HCl (Dilaudid) 1 mg Q2 PRN IV PAIN Last administered on 02/10/17 14:16; Admin Dose 1 MG; Start 01/25/17 at 21:00 Atenolol (Tenormin) 25 mg BID PO Last administered on 02/10/17 08:50; Admin Dose 25 MG; Start 01/30/17 at 12:00 Enoxaparin Sodium 30 mg 30 mg DAILY SC Last administered on 02/10/17 09:00; Admin Dose 30 MG; Start 02/01/17 at 16:00 Ampicillin 50 ml @ 100 mls/hr Q8 IVPB Last administered on 02/10/17 13:09; Admin Dose 100 MLS/HR; Start 02/03/17 at 22:00 Metronidazole (Flagyl 500 Mg (Pmx)) 100 ml @ 100 mls/hr Q8 IVPB Last administered on 02/10/17 13:08; Admin Dose 100 MLS/HR; Start 02/03/17 at 22:00 Lactobacillus Acidophilus 1 each 1 each BID PO Last administered on 02/10/17 08 :49; Admin Dose 1 EACH; Start 02/03/17 at 21:00 Colistimethate Sodium/Sodium Chloride (Coly-Mycin/NS) 100 ml @ 200 mls/hr Q12 IVPB Last administered on 02/10/17 09:02; Admin Dose 200 MLS/HR; Start at 21:00 Bisacodyl (Dulcolax Supp) 10 mg BID PRN [place] CONSTIPATION; Start 02/04/17 at 19: 30 Sodium Biphosphate/ Sodium Phosphate (Fleet Enema) 133 ml BID PRN [place] CONSTIPATION; Start 02/04/17 at 19:30 Docusate Sodium (Colace) 100 mg BID PRN PO CONSTIPATION; Start 02/04/17 at 19: 30 Sodium Biphosphate/ Sodium Phosphate (Fleet Enema) 133 ml BID PRN [place] CONSTIPATION; Start 02/09/17 at 10:00 Sodium Biphosphate/ Sodium Phosphate (Fleet Enema) 133 ml BID [place] ; Start at 09:00; Status UNV Potassium Chloride (Klor-Con 20) 40 meq DAILY PO Last administered on 02/10/17 08:49; Admin Dose 40 MEQ; Start 02/10/17 at 09:00 MOIRA BIRMINGHAM MD Feb 10, 2017 18:33
[2017-02-11] VITALS (13 sets, daily range): BP systolic 101–133; BP diastolic 56–78; PULSE 77–89; RESP 16–20
[2017-02-11] MEDS: ONDANSETRON 4 MG INJ IV SCH ×4 (00:45→17:06)
[2017-02-11] MEDS: ACETAMINOPHEN 1000MG/100ML IV 100 ML IVPB SCH ×4 (00:45→17:06)
[2017-02-11] MEDS: HYDROmorphONE 1 MG/ML SYG IV PRN ×4 (01:57→22:52)
[2017-02-11] MEDS: PANTOPRAZOLE (EC) 40 MG TAB PO SCH (05:49)
[2017-02-11] MEDS: AMPICILLIN 1 GM/NS (PMX) 50 ML IVPB SCH ×3 (05:49→23:24)
[2017-02-11] MEDS: metroNIDAZOLE 500 MG/NS (PMX) 100 ML IVPB SCH ×2 (06:23→13:18)
[2017-02-11 06:58] LABS: ABNORMAL IP MESSAGE 1; BASOPHILS % 0.2 % (0.0-2.0); EOSINOPHILS % 0.7 % (0.0-7.0); HEMATOCRIT 26.7 % (42.0-52.0); HEMOGLOBIN 8.4 g/dl (14.0-18.0); LYMPHOCYTES # 0.2 10^3/ul (0.8-2.9); LYMPHOCYTES % 3.6 % (15.0-51.0); MEAN CORPUSCULAR HEMOGLOBIN 28.4 pg (29.0-33.0); MEAN CORPUSCULAR HGB CONC 31.5 g/dl (32.0-37.0); MEAN CORPUSCULAR VOLUME 90.2 fl (82.0-101.0); MEAN PLATELET VOLUME 11.5 fl (7.4-10.4); MONOCYTE # 0.7 10^3/ul (0.3-0.9); NEUTROPHILS % 79.7 % (39.0-77.0); PLATELET COUNT 117 10^3/UL (140-415); POSITIVE DIFF @See below; RED BLOOD COUNT 2.96 10^6/ul (4.70-6.10); RED CELL DISTRIBUTION WIDTH 18.2 % (11.5-14.5); WHITE BLOOD COUNT 6.1 10^3/ul (4.8-10.8)
[2017-02-11 07:14] LABS: CALCIUM 9.7 mg/dl (8.4-10.2); CREATININE 0.84 mg/dl (0.61-1.24); POTASSIUM 3.4 mmol/L (3.5-5.1)
[2017-02-11] MEDS: COLISTIMETHATE 150 MG in SOD CHLORIDE 0.9% 100 ML IVPB SCH ×2 (08:18→22:38)
[2017-02-11] MEDS: L ACIDOPHIL/B LACTIS/B LONGUM CAPSULE PO SCH ×2 (08:18→22:38)
[2017-02-11] MEDS: POTASSIUM CHLORIDE (SR) 20 MEQ TAB PO SCH (08:18)
[2017-02-11] MEDS: predniSONE 20 MG TAB PO SCH (08:18)
[2017-02-11] MEDS: CALCIUM CARBONATE 1.25 GM TAB PO SCH ×2 (08:18→22:38)
[2017-02-11] MEDS: ATENOLOL 25 MG TAB PO SCH ×2 (08:19→21:00)
[2017-02-11] MEDS: ENOXAPARIN 30 MG/0.3 ML SYG SC SCH (08:20)
[2017-02-11] MEDS ORDERED: NA PHOSPHATE/BIPHOS 133 ML ENEMA PR SCH (09:00)
--- NOTE | 2017-02-11 13:14 | PN ---
Date/Time of Note Date/Time of Note DATE: 02/11/17 TIME: 13:13 Assessment/Plan VTE Prophylaxis VTE Prophylaxis Intervention: LMWH Lines/Catheters IV Catheter Type (from [facility]): Peripheral IV Urinary Cath still in place: No Assessment/Plan Chief Complaint/Hosp Course 1. Acute renal injury, resolving 2. Right pleural effusion with atelectasis and right lung base pneumonia, resolved. 3. Large B cell anaplastic lymphoma; status post chemo 1 month 4. Sepsis resolving 5. Electrolyte imbalance, better 6. Severe anemia 7. Morbid obesity 8. Skin wounds, sp debridement Problems: Assessment/Plan 1. ONcology cleared for d/c home Subjective 24 Hr Interval Summary Constitutional: improved, no complaints Genitourinary: no complaints Musculoskeletal: no complaints Exam/Review of Systems Vital Signs Vitals Vital Signs Date Time Temp Pulse Resp B/P Pulse Ox O2 Delivery O2 Flow Rate FiO2 02/11/17 12:31 89 02/11/17 11:32 97.7 16 106/58 99 02/11/17 00:18 2.0 02/10/17 20:00 Nasal Cannula Intake and Output 02/10/17 02/10/17 02/11/17 15:00 23:00 07:00 Intake Total 200 ml 1170 ml 1620 ml Output Total 900 ml 970 ml Balance 200 ml 270 ml 650 ml Exam Constitutional: alert, oriented ENMT: other (pale) Gastrointestinal: soft Genitourinary - Male: nl scrotum Musculoskeletal: muscle weakness Results Result Diagram: 02/11/17 0557 02/11/17 0557 Results 24 hrs Laboratory Tests Test 02/11/17 05:57 White Blood Count 6.1 Red Blood Count 2.96 L Hemoglobin 8.4 L Hematocrit 26.7 L Mean Corpuscular Volume 90.2 Mean Corpuscular Hemoglobin 28.4 L Mean Corpuscular Hemoglobin Concent 31.5 L Red Cell Distribution Width 18.2 H Platelet Count 117 L Mean Platelet Volume 11.5 H Neutrophils % 79.7 H Lymphocytes % 3.6 L Monocytes % 11.0 Eosinophils % 0.7 Basophils % 0.2 Nucleated Red Blood Cells % 0.0 Neutrophils # (Manual) 4.9 Lymphocytes # 0.2 L Monocytes # 0.7 Eosinophils # 0.0 Basophils # 0.0 Nucleated Red Blood Cells # 0.0 Sodium Level 131 L Potassium Level 3.4 L Chloride Level 96 L Carbon Dioxide Level 27 Anion Gap 11 Blood Urea Nitrogen 18 Creatinine 0.84 Glucose Level 90 Calcium Level 9.7 Medications Medications Current Medications Magnesium Hydroxide (Milk Of Mag) 30 ml DAILY PRN PO CONSTIPATION Last administered on 02/05/17 00:29; Admin Dose 30 ML; Start 01/09/17 at 19:30 Sodium Biphosphate/ Sodium Phosphate (Fleet Enema) 133 ml DAILY PRN [place] CONSTIPATION; Start 01/09/17 at 19:30 Nitroglycerin (Nitroglycerin (Sl Tab) 0.4 Mg) 1 tab Q5M PRN SL ANGINA; Start at 19:30 Miscellaneous Information (Pending [facility] Order For Wound Care) This patient aranda... PRN PRN XX WOUND CARE; Start 01/10/17 at 03:30 Ondansetron HCl 4 mg 4 mg Q6 IV Last administered on 02/11/17 11:37; Admin Dose 4 MG; Start 01/10/17 at 15:30 Acetaminophen (Ofirmev 1000mg/ 100ml Iv) 100 ml @ 400 mls/hr Q6 IVPB Last administered on 02/11/17 11:37; Admin Dose 400 MLS/HR; Start 01/10/17 at 16:30 IV Flush (NS 10 ml) 10 ml PRN PRN IV IV PROTOCOL; Start 01/10/17 at 20:30 Prednisone 10 mg 10 mg DAILY PO Last administered on 02/11/17 08:18; Admin Dose 10 MG; Start 01/15/17 at 09:00 Hydromorphone HCl/ Dextrose (Dilaudid/D5W) 50 ml @ 2 mls/hr TITRATE IV Last administered on 02/10/17 20:09; Admin Dose 2 MLS/HR; Start 01/23/17 at 16:30 Ergocalciferol (Drisdol) 50,000 unit We@09 PO Last administered on 02/08/17 08 :12; Admin Dose 50,000 UNIT; Start 01/25/17 at 09:00 Calcium Carbonate (Oyster Shell Calcium) 1.25 gm BID PO Last administered on 08:18; Admin Dose 1.25 GM; Start 01/24/17 at 21:00 Pantoprazole (Protonix Tab) 40 mg DAILY@06 PO Last administered on 02/11/17 05: 49; Admin Dose 40 MG; Start 01/26/17 at 06:00 Hydromorphone HCl (Dilaudid) 1 mg Q2 PRN IV PAIN Last administered on 02/11/17 06:23; Admin Dose 1 MG; Start 01/25/17 at 21:00 Atenolol (Tenormin) 25 mg BID PO Last administered on 02/11/17 08:19; Admin Dose 25 MG; Start 01/30/17 at 12:00 Enoxaparin Sodium 30 mg 30 mg DAILY SC Last administered on 02/11/17 08:20; Admin Dose 30 MG; Start 02/01/17 at 16:00 Ampicillin 50 ml @ 100 mls/hr Q8 IVPB Last administered on 02/11/17 05:49; Admin Dose 100 MLS/HR; Start 02/03/17 at 22:00 Metronidazole (Flagyl 500 Mg (Pmx)) 100 ml @ 100 mls/hr Q8 IVPB Last administered on 02/11/17 06:23; Admin Dose 100 MLS/HR; Start 02/03/17 at 22:00 Lactobacillus Acidophilus 1 each 1 each BID PO Last administered on 02/11/17 08 :18; Admin Dose 1 EACH; Start 02/03/17 at 21:00 Colistimethate Sodium/Sodium Chloride (Coly-Mycin/NS) 100 ml @ 200 mls/hr Q12 IVPB Last administered on 02/11/17 08:18; Admin Dose 200 MLS/HR; Start at 21:00 Bisacodyl (Dulcolax Supp) 10 mg BID PRN [place] CONSTIPATION; Start 02/04/17 at 19: 30 Sodium Biphosphate/ Sodium Phosphate (Fleet Enema) 133 ml BID PRN [place] CONSTIPATION; Start 02/04/17 at 19:30 Docusate Sodium (Colace) 100 mg BID PRN PO CONSTIPATION; Start 02/04/17 at 19: 30 Sodium Biphosphate/ Sodium Phosphate (Fleet Enema) 133 ml BID PRN [place] CONSTIPATION; Start 02/09/17 at 10:00 Sodium Biphosphate/ Sodium Phosphate (Fleet Enema) 133 ml BID [place] ; Start at 09:00; Status UNV Potassium Chloride (Klor-Con 20) 40 meq DAILY PO Last administered on 02/11/17t 08:18; Admin Dose 40 MEQ; Start 02/10/17 at 09:00 Potassium Chloride (Potassium Chloride Pwd/Soln) 40 meq ONCE ONCE JT ; Start at 13:30; Stop 02/11/17 at 13:31; Status MOISES PALACIO Feb 11, 2017 13:14
[2017-02-11] MEDS ORDERED: POTASSIUM CHLORIDE 20 MEQ POWDER FOR ORAL SOLN JT ONE (13:30)
--- NOTE | 2017-02-11 15:10 | PN ---
Date/Time of Note Date/Time of Note DATE: 02/11/17 TIME: 15:08 Assessment/Plan Lines/Catheters IV Catheter Type (from Nrsg): Peripheral IV [place] in Place (from Nrsg): No Assessment/Plan Assessment/Plan [facility] Progress Note Date of Service: 02/11/2017 Place of service: [facility] 5W tele Today's Assessment & Plan: Overall stable. Abdomen remains benign. Sacral and superficial wounds appear ok after operative debridement. Less fevers today and less abdominal pain, which is encouraging. No indication for acute surgical intervention. Discussed wound care with wound nurses. With above assessment, I've recommended the followin. Continue aggressive medical management 2. Cont full liquid diet and advance slowly 3. Follow GIs recommendations 4. If it would make a difference in management, may consider percutaneous biopsy of segment 6 area of abnormality in the liver 5. Multidisciplinary tumor board presentation and discussions 6. Consideration for clinical trials once improved medically 7. LFT's, amylase and lipase checks tomorrow with labs 8. Will likely benefit from aggressive bowel regimen (some of the pain likely from constipation) 9. Percutaneous cholecystostomy drain care teachings to patient and family 10. Aggressive wound care Thank you very much for having me involved in the care of this very pleasant patient and wonderful family. If you have any questions, please feel free to contact me at [phone]. Nature of presenting problem: High severity Please note that, given the extensive number of diagnoses or management options , the extensive amount and/or complexity of data needed to be reviewed, and high risk of complications and/or morbidity or mortality, this qualifies as high complexity type of decision-making. Disclaimer: Inadvertent spelling and grammatical errors are likely due to EHR/ dictation software use and do not reflect on the quality of delivered patient care. Also, please note that the electronic time recorded on this node does not necessarily reflect the actual time of the visit. 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 HIDA scan positive 01/28/2017. Status post percutaneous cholecystostomy drain placement 02/02/2017. Comorbidities: 1. Multiple superficial wounds on the back and flank region and behind the right knee. S/P excisional debridement of multiple sites including large area over the lumbar and flank region, 40 cm x 15 cm x 1 cm, smaller area on the right flank region, 10 cm x 4 cm x 1 cm, and an area behind the right knee, approximately 9 cm x 7 cm x 1 cm with removal of 15 cm x 10 cm x 1 cm soft tissue using scissors to a depth of 1 cm to subcutaneous fat at [facility] 02/09/17 2. BMI 40.7 3. Small right pleural effusion with atelectasis and right lung base pneumonia. 4. Large B cell anaplastic lymphoma; status post chemo 1 month prior to presentation 5. Sepsis 6. Hyponatremia 7. Hypokalemia 8. Acute renal injury 9. Status post percutaneous cholecystostomy drain placement 02/02/2017 Subjective: No major events or complaints; reported feeling ok and no significant abdominal pain and under control with medications; no significant reported nausea or vomiting and no major diarrhea; no sob or cp; + flatus; + BM; minimal to no activity. No further fevers or sweating. Objective: Vitals: See below I's & O's: See below Exam: GENERAL: On exam, the patient was lying in bed and appeared to be comfortable and in no acute distress. Not very diaphoretic. ABDOMEN: Soft, minimal to no tenderness and nondistended. There are no peritoneal signs or guarding. Perc GB drain with thick green bilious output. SKIN: Skin appears to be pink and feels warm to touch. Number of superficial wounds on the extremities and on the sacral region with intact dressings that we took off and inspected. Wound beds appear to be clean without obvious further necrosis or infection. Surrounding skin pink and warm without significant erythema. NEUROLOGIC: Patient is awake, alert, and follows commands appropriately. Labs: See below Exam/Review of Systems Vital Signs Vitals Vital Signs Date Time Temp Pulse Resp B/P Pulse Ox O2 Delivery O2 Flow Rate FiO2 02/11/17 12:31 89 02/11/17 11:32 97.7 16 106/58 99 02/11/17 00:18 2.0 02/10/17 20:00 Nasal Cannula Intake and Output 02/10/17 02/10/17 02/11/17 15:00 23:00 07:00 Intake Total 200 ml 1170 ml 1620 ml Output Total 900 ml 970 ml Balance 200 ml 270 ml 650 ml Results Result Diagram: 02/11/17 0557 02/11/17 0557 LENKA HERNANDEZ M.D. Feb 11, 2017 15:10
--- NOTE | 2017-02-11 18:17 | CONS ---
Date/Time of Note Date/Time of Note DATE: 02/11/17 TIME: 18:09 Assessment/Plan Assessment/Plan Chief Complaint/Hosp Course ID PROGRESS NOTE CURRENT ABX=> Ampicillin + Colistin IV #9 + Flagyl IV s/p Cancidas/Vanco IV s/p Zosyn + Levaquin IV + Bactrim IV s/p Colistin INH Vanco IV #8 -> DC 8/10 Bactrim po (RX per his HemeOnc)-> dc 8/6 24H INTERVAL SUMMARY * A/A/O =>stable, no fevers, * BCx 02/06/17 (+)CoNS, + GNR/KP => PICC Dc'd EXAM GENERAL: 31 yo M obese HEENT:Unremarkable, no thrush NECK: Supple CHEST: Rise symmetrical without dyspnea on observation ABDOMEN: Soft, obese, VIKTOR drain w/dark brown liquid filling bulb EXTREMITIES: Warm, moves extremities SKIN: Tattoos ID ASSESSMENT: 31 yo morbid obese M admit with: 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 * Presented w/Rx Bactrim 1tab daily (Neutropenic PCP prophy per HemeOn) * CT ABD/PEL/CHEST:(+) multiple areas of nodules likely lymphoma, 2 s/p Sepsis w/worsening lactic acidosis 2/2 PNA + Left flank/hip/leg decub * s/p PICC Line sepsis w/02/06/17 BCx (+)CoNS + KP => PICC DC"d 3. Resolving HCAP => CT ABD/PEL/CHEST: (+) PNA=> RESOLVING * 01/24 RESPIRATORY CULTURE Final 3+ KLEB PNEUMONIAE CARBAPENEMASE 4. Acute Cholecystitis w/ pancreatitis -> No evidence of necrosis on CT => RESOLVING 5. Presumed RAMU: likely pre-renal 2/2 vomiting 6. s/p Enterococcal UTI -> Low colony count 7. Decubs: * left flank /BACK 01/22 WOUND CULTURE Final * Organism 1 PSEUDOMONAS AERUGINOSA * Organism 2 KLEB PNEUMONIAE CARBAPENEMASE * Organism 3 ENTEROCOCCUS SPECIES * LLEXT wound stage III * 01/12/17 WOUND CULTURE * Organism 1 CITROBACTER FREUNDI * Organism 2 ENTEROCOCCUS SPECIES * Organism 3 CORYNEBACTERIUM SPECIES * Organism 4 STENOTROPHOMONAS MALTOPHILIA INVASIVES: RUEXT PICC ABX ALLERGY: EGG/MILK CURRENT ABX=> Ampicillin+ Colistin IV + Flagyl IV s/p Cancidas /Vanco s/p Zosyn + Levaquin IV + Bactrim IV s/p Colistin INH Vanco IV #8 -> DC 01/19 Bactrim po (RX per his HemeOnc)-> dc 01/15 ID PLAN 1. Continue ABX => PICC Line DC'd . . Problems: Consultation Date/Type/Reason Admit Date/Time Jan 09, 2017 at 19:08 Initial Consult Date 01/10/17 Type of Consultation: ID Referring Provider: YAO RAHMAN Exam/Review of Systems Vital Signs Vitals Vital Signs Date Time Temp Pulse Resp B/P Pulse Ox O2 Delivery O2 Flow Rate FiO2 02/11/17 16:32 81 02/11/17 15:24 97.9 16 106/57 97 02/11/17 00:18 2.0 02/10/17 20:00 Nasal Cannula Intake and Output 02/10/17 02/10/17 02/11/17 15:00 23:00 07:00 Intake Total 200 ml 1170 ml 1620 ml Output Total 900 ml 970 ml Balance 200 ml 270 ml 650 ml Results Result Diagram: 02/11/17 0557 02/11/17 0557 Results 24 hrs Laboratory Tests Test 02/11/17 05:57 White Blood Count 6.1 Red Blood Count 2.96 L Hemoglobin 8.4 L Hematocrit 26.7 L Mean Corpuscular Volume 90.2 Mean Corpuscular Hemoglobin 28.4 L Mean Corpuscular Hemoglobin Concent 31.5 L Red Cell Distribution Width 18.2 H Platelet Count 117 L Mean Platelet Volume 11.5 H Neutrophils % 79.7 H Lymphocytes % 3.6 L Monocytes % 11.0 Eosinophils % 0.7 Basophils % 0.2 Nucleated Red Blood Cells % 0.0 Neutrophils # (Manual) 4.9 Lymphocytes # 0.2 L Monocytes # 0.7 Eosinophils # 0.0 Basophils # 0.0 Nucleated Red Blood Cells # 0.0 Sodium Level 131 L Potassium Level 3.4 L Chloride Level 96 L Carbon Dioxide Level 27 Anion Gap 11 Blood Urea Nitrogen 18 Creatinine 0.84 Glucose Level 90 Calcium Level 9.7 Medications Medications Current Medications Magnesium Hydroxide (Milk Of Mag) 30 ml DAILY PRN PO CONSTIPATION Last administered on 02/05/17 00:29; Admin Dose 30 ML; Start 01/09/17 at 19:30 Sodium Biphosphate/ Sodium Phosphate (Fleet Enema) 133 ml DAILY PRN MT CONSTIPATION; Start 01/09/17 at 19:30 Nitroglycerin (Nitroglycerin (Sl Tab) 0.4 Mg) 1 tab Q5M PRN SL ANGINA; Start at 19:30 [facility] This patient aranda... PRN PRN XX WOUND CARE; Start 01/10/17 at 03:30 Ondansetron HCl 4 mg 4 mg Q6 IV Last administered on 02/11/17 17:06; Admin Dose 4 MG; Start 01/10/17 at 15:30 Acetaminophen (Ofirmev 1000mg/ 100ml Iv) 100 ml @ 400 mls/hr Q6 IVPB Last administered on 02/11/17 17:06; Admin Dose 400 MLS/HR; Start 01/10/17 at 16:30 IV Flush (NS 10 ml) 10 ml PRN PRN IV IV PROTOCOL; Start 01/10/17 at 20:30 Prednisone 10 mg 10 mg DAILY PO Last administered on 02/11/17 08:18; Admin Dose 10 MG; Start 01/15/17 at 09:00 Hydromorphone HCl/ Dextrose (Dilaudid/D5W) 50 ml @ 2 mls/hr TITRATE IV Last administered on 02/10/17 20:09; Admin Dose 2 MLS/HR; Start 01/23/17 at 16:30 Ergocalciferol (Drisdol) 50,000 unit We@09 PO Last administered on 02/08/17 08 :12; Admin Dose 50,000 UNIT; Start 01/25/17 at 09:00 Calcium Carbonate (Oyster Shell Calcium) 1.25 gm BID PO Last administered on 08:18; Admin Dose 1.25 GM; Start 01/24/17 at 21:00 Pantoprazole (Protonix Tab) 40 mg DAILY@06 PO Last administered on 02/11/17 05: 49; Admin Dose 40 MG; Start 01/26/17 at 06:00 Hydromorphone HCl (Dilaudid) 1 mg Q2 PRN IV PAIN Last administered on 02/11/17 14:25; Admin Dose 1 MG; Start 01/25/17 at 21:00 Atenolol (Tenormin) 25 mg BID PO Last administered on 02/11/17 08:19; Admin Dose 25 MG; Start 01/30/17 at 12:00 Enoxaparin Sodium 30 mg 30 mg DAILY SC Last administered on 02/11/17 08:20; Admin Dose 30 MG; Start 02/01/17 at 16:00 Ampicillin 50 ml @ 100 mls/hr Q8 IVPB Last administered on 02/11/17 13:18; Admin Dose 100 MLS/HR; Start 02/03/17 at 22:00 Metronidazole (Flagyl 500 Mg (Pmx)) 100 ml @ 100 mls/hr Q8 IVPB Last administered on 02/11/17 13:18; Admin Dose 100 MLS/HR; Start 02/03/17 at 22:00 Lactobacillus Acidophilus 1 each 1 each BID PO Last administered on 02/11/17 08 :18; Admin Dose 1 EACH; Start 02/03/17 at 21:00 Colistimethate Sodium/Sodium Chloride (Coly-Mycin/NS) 100 ml @ 200 mls/hr Q12 IVPB Last administered on 02/11/17 08:18; Admin Dose 200 MLS/HR; Start at 21:00 Bisacodyl (Dulcolax Supp) 10 mg BID PRN MT CONSTIPATION; Start 02/04/17 at 19: 30 Sodium Biphosphate/ Sodium Phosphate (Fleet Enema) 133 ml BID PRN MT CONSTIPATION; Start 02/04/17 at 19:30 Docusate Sodium (Colace) 100 mg BID PRN PO CONSTIPATION; Start 02/04/17 at 19: 30 Sodium Biphosphate/ Sodium Phosphate (Fleet Enema) 133 ml BID PRN MT CONSTIPATION; Start 02/09/17 at 10:00 Sodium Biphosphate/ Sodium Phosphate (Fleet Enema) 133 ml BID MT ; Start at 09:00; Status UNV Potassium Chloride (Klor-Con 20) 40 meq DAILY PO Last administered on 02/11/17 08:18; Admin Dose 40 MEQ; Start 02/10/17 at 09:00 AARON BELLAMY NP Feb 11, 2017 18:17
--- NOTE | 2017-02-11 18:54 | CONS ---
Date/Time of Note Date/Time of Note DATE: 02/11/17 TIME: 18:54 Assessment/Plan Assessment/Plan Chief Complaint/Hosp Course Anaplastic B-cell Lymphoma pt was dx'd with lymphoma a year and half ago , it turned into an aggressive type. His last chemo was a month ago and hadn't had since due to experiencing similar presenting symptoms. record from pt's oncologist Kain Wisdom - P Left flank mass, CT-guided core needle biopsies with touch imprints: Completely necrotic tissue, insufficient for pathologic evaluation. PER PT REPORT- reportedly scheduled for change in therapy due to what appears to be lack of adequate response CT ABD/PEL/CHEST:(+) multiple areas of nodules likely lymphoma, PT WANT TO GO HOME AND FAMILY ALREADY CALLED HIS PRIMARY ONCOLOGIST TO ARRANGE THE APPT JOSSELIN POST DC OK TO DC HOME IF CLEARED BY PRIMARY AND ALL CONSULTANTS WITH F-UP BY DR WISDOM LEUKOPENIA IN PT WITH HNL POST CHEMO AND WITH SEPTIC PICTURE MONITOR BLOOD COUNT CLOSELY POST NEUPOGEN WBC- FLUCTUATING IMPROVED ON NEUPOGEN X 2 DC NEUPOGEN PANCYTOPENIA POST CHEMO CONT TO MONITOR PRBC NEEDED s/p Sepsis w/worsening lactic acidosis 2/2 PNA + Left flank/hip/leg decub Resolving HCAP => CT ABD/PEL/CHEST: (+) PNA * 01/24 RESPIRATORY CULTURE Final 3+ KLEB PNEUMONIAE CARBAPENEMASE ID W-UP pancreatitis. Abd Pain with N/V: 2/2 known lymphoma - pain mgmt - Anti-emetics Hyponatremia and Hypokalemia: 2/2 vomiting - NS IVF - replete K+ as needed Presumed RAMU: likely pre-renal 2/2 vomiting - cont IVF for now Problems: Consultation Date/Type/Reason Admit Date/Time Jan 09, 2017 at 19:08 Initial Consult Date 01/10/17 Type of Consultation: [facility] Referring Provider: YAO RAHMAN 24 HR Interval Summary Free Text/Dictation ALL NOTED FELLING BETTER Exam/Review of Systems Vital Signs Vitals Vital Signs Date Time Temp Pulse Resp B/P Pulse Ox O2 Delivery O2 Flow Rate FiO2 02/11/17 16:32 81 02/11/17 15:24 97.9 16 106/57 97 02/11/17 00:18 2.0 02/10/17 20:00 Nasal Cannula Intake and Output 02/10/17 02/10/17 02/11/17 15:00 23:00 07:00 Intake Total 200 ml 1170 ml 1620 ml Output Total 900 ml 970 ml Balance 200 ml 270 ml 650 ml Exam GENERAL: This is a well-developed, ill-appearing, middle-aged, man, who is awake, in no distress. HEENT: Head atraumatic, normocephalic. Sclerae anicteric. Buccal mucosa pink and dry. NECK: Supple. CHEST: Rise symmetrical. Breath sounds diminished at the bases. HEART: S1, S2. ABDOMEN: Soft, bowel sounds present. EXTREMITIES: Without cyanosis. + WOUNDS Results Result Diagram: 02/11/17 0557 02/11/17 0557 Results 24 hrs Laboratory Tests Test 02/11/17 05:57 White Blood Count 6.1 Red Blood Count 2.96 L Hemoglobin 8.4 L Hematocrit 26.7 L Mean Corpuscular Volume 90.2 Mean Corpuscular Hemoglobin 28.4 L Mean Corpuscular Hemoglobin Concent 31.5 L Red Cell Distribution Width 18.2 H Platelet Count 117 L Mean Platelet Volume 11.5 H Neutrophils % 79.7 H Lymphocytes % 3.6 L Monocytes % 11.0 Eosinophils % 0.7 Basophils % 0.2 Nucleated Red Blood Cells % 0.0 Neutrophils # (Manual) 4.9 Lymphocytes # 0.2 L Monocytes # 0.7 Eosinophils # 0.0 Basophils # 0.0 Nucleated Red Blood Cells # 0.0 Sodium Level 131 L Potassium Level 3.4 L Chloride Level 96 L Carbon Dioxide Level 27 Anion Gap 11 Blood Urea Nitrogen 18 Creatinine 0.84 Glucose Level 90 Calcium Level 9.7 Medications Medications Current Medications Magnesium Hydroxide (Milk Of Mag) 30 ml DAILY PRN PO CONSTIPATION Last administered on 02/05/17t 00:29; Admin Dose 30 ML; Start 01/09/17 at 19:30 Sodium Biphosphate/ Sodium Phosphate (Fleet Enema) 133 ml DAILY PRN [place] CONSTIPATION; Start 01/09/17 at 19:30 Nitroglycerin (Nitroglycerin (Sl Tab) 0.4 Mg) 1 tab Q5M PRN SL ANGINA; Start at 19:30 [facility]isc[facility] This patient aranda... PRN PRN XX WOUND CARE; Start 01/10/17 at 03:30 Ondansetron HCl 4 mg 4 mg Q6 IV Last administered on 02/11/17 17:06; Admin Dose 4 MG; Start 01/10/17 at 15:30 Acetaminophen (Ofirmev 1000mg/ 100ml Iv) 100 ml @ 400 mls/hr Q6 IVPB Last administered on 02/11/17 17:06; Admin Dose 400 MLS/HR; Start 01/10/17 at 16:30 IV Flush (NS 10 ml) 10 ml PRN PRN IV IV PROTOCOL; Start 01/10/17 at 20:30 Prednisone 10 mg 10 mg DAILY PO Last administered on 02/11/17 08:18; Admin Dose 10 MG; Start 01/15/17 at 09:00 Hydromorphone HCl/ Dextrose (Dilaudid/D5W) 50 ml @ 2 mls/hr TITRATE IV Last administered on 02/10/17 20:09; Admin Dose 2 MLS/HR; Start 01/23/17 at 16:30 Ergocalciferol (Drisdol) 50,000 unit We@09 PO Last administered on 02/08/17 08 :12; Admin Dose 50,000 UNIT; Start 01/25/17 at 09:00 Calcium Carbonate (Oyster Shell Calcium) 1.25 gm BID PO Last administered on 08:18; Admin Dose 1.25 GM; Start 01/24/17 at 21:00 Pantoprazole (Protonix Tab) 40 mg DAILY@06 PO Last administered on 02/11/17 05: 49; Admin Dose 40 MG; Start 01/26/17 at 06:00 Hydromorphone HCl (Dilaudid) 1 mg Q2 PRN IV PAIN Last administered on 02/11/17 14:25; Admin Dose 1 MG; Start 01/25/17 at 21:00 Atenolol (Tenormin) 25 mg BID PO Last administered on 02/11/17 08:19; Admin Dose 25 MG; Start 01/30/17 at 12:00 Enoxaparin Sodium 30 mg 30 mg DAILY SC Last administered on 02/11/17 08:20; Admin Dose 30 MG; Start 02/01/17 at 16:00 Ampicillin 50 ml @ 100 mls/hr Q8 IVPB Last administered on 02/11/17 13:18; Admin Dose 100 MLS/HR; Start 02/03/17 at 22:00 Metronidazole (Flagyl 500 Mg (Pmx)) 100 ml @ 100 mls/hr Q8 IVPB Last administered on 02/11/17 13:18; Admin Dose 100 MLS/HR; Start 02/03/17 at 22:00 Lactobacillus Acidophilus 1 each 1 each BID PO Last administered on 02/11/17 08 :18; Admin Dose 1 EACH; Start 02/03/17 at 21:00 Colistimethate Sodium/Sodium Chloride (Coly-Mycin/NS) 100 ml @ 200 mls/hr Q12 IVPB Last administered on 02/11/17 08:18; Admin Dose 200 MLS/HR; Start at 21:00 Bisacodyl (Dulcolax Supp) 10 mg BID PRN [place] CONSTIPATION; Start 02/04/17 at 19: 30 Sodium Biphosphate/ Sodium Phosphate (Fleet Enema) 133 ml BID PRN [place] CONSTIPATION; Start 02/04/17 at 19:30 Docusate Sodium (Colace) 100 mg BID PRN PO CONSTIPATION; Start 02/04/17 at 19: 30 Sodium Biphosphate/ Sodium Phosphate (Fleet Enema) 133 ml BID PRN [place] CONSTIPATION; Start 02/09/17 at 10:00 Sodium Biphosphate/ Sodium Phosphate (Fleet Enema) 133 ml BID [place] ; Start at 09:00; Status UNV Potassium Chloride (Klor-Con 20) 40 meq DAILY PO Last administered on 02/11/17 08:18; Admin Dose 40 MEQ; Start 02/10/17 at 09:00 MOIRA BIRMINGHAM MD Feb 11, 2017 18:54
--- NOTE | 2017-02-11 23:09 | CONS ---
Date/Time of Note Date/Time of Note DATE: 02/11/17 TIME: 23:05 Assessment/Plan Assessment/Plan Chief Complaint/Hosp Course Impression: 1. Multiple superficial wounds on the back and flank region and behind the right knee 2. Status post percutaneous cholecystostomy drain placement 02/02/2017 3. Small right pleural effusion with atelectasis and right lung base pneumonia. 4. Large B cell anaplastic lymphoma; status post chemo 1 month prior to presentation 5. Sepsis 6. Hyponatremia 7. Hypokalemia 8. Acute renal injury 9. Excisional debridement of multiple sites including large area over the lumbar and flank region, 40 cm x 15 cm x 1 cm, smaller area on the right flank region, 10 cm x 4 cm x 1 cm, and an area behind the right knee, approximately 9 cm x 7 cm x 1 cm with removal of 15 cm x 10 cm x 1 cm soft tissue using scissors to a depth of 1 cm to subcutaneous fat Recommendations: 1. pain control 2. Monitor hemoglobin and hematocrit 3. transfuse PRN hgb less than 8 4. changed colace and mag hydroxide to standing from PRN as some of the pain likely from constipation 5. Percutaneous cholecystostomy drain care teachings to patient and family 6. Aggressive wound care Problems: Consultation Date/Type/Reason Admit Date/Time Jan 09, 2017 at 19:08 Initial Consult Date 01/15/17 Type of Consultation: GI Referring Provider: YAO RAHMAN 24 HR Interval Summary Free Text/Dictation Abdomen remains benign. Sacral and superficial wounds appear ok after operative debridement. Less fevers today and less abdominal pain, Exam/Review of Systems Vital Signs Vitals Vital Signs Date Time Temp Pulse Resp B/P Pulse Ox O2 Delivery O2 Flow Rate FiO2 02/11/17 20:02 82 02/11/17 19:47 97.6 16 102/78 98 02/11/17 00:18 2.0 02/10/17 20:00 Nasal Cannula Intake and Output 02/10/17 02/10/17 02/11/17 15:00 23:00 07:00 Intake Total 200 ml 1170 ml 1620 ml Output Total 900 ml 970 ml Balance 200 ml 270 ml 650 ml Exam Head: atraumatic, normocephalic Eyes: EOMI, nl conjunctiva, nl lids, nl sclera ENMT: mucosa pink and moist, nl external ears & nose, nl lips & teeth, nl nasal mucosa & septum Neck: non-tender, supple Respiratory: clear to auscultation, normal air movement Cardiovascular: nl pulses, regular rate and rhythm Gastrointestinal: bowel sounds, non-tender, other (Perc GB drain with thick green bilious output.), soft Results Result Diagram: 02/11/17 0557 02/11/17 0557 Results 24 hrs Laboratory Tests Test 02/11/17 05:57 White Blood Count 6.1 Red Blood Count 2.96 L Hemoglobin 8.4 L Hematocrit 26.7 L Mean Corpuscular Volume 90.2 Mean Corpuscular Hemoglobin 28.4 L Mean Corpuscular Hemoglobin Concent 31.5 L Red Cell Distribution Width 18.2 H Platelet Count 117 L Mean Platelet Volume 11.5 H Neutrophils % 79.7 H Lymphocytes % 3.6 L Monocytes % 11.0 Eosinophils % 0.7 Basophils % 0.2 Nucleated Red Blood Cells % 0.0 Neutrophils # (Manual) 4.9 Lymphocytes # 0.2 L Monocytes # 0.7 Eosinophils # 0.0 Basophils # 0.0 Nucleated Red Blood Cells # 0.0 Sodium Level 131 L Potassium Level 3.4 L Chloride Level 96 L Carbon Dioxide Level 27 Anion Gap 11 Blood Urea Nitrogen 18 Creatinine 0.84 Glucose Level 90 Calcium Level 9.7 Medications Medications Current Medications Magnesium Hydroxide (Milk Of Mag) 30 ml DAILY PRN PO CONSTIPATION Last administered on 02/05/17 00:29; Admin Dose 30 ML; Start 01/09/17 at 19:30 Sodium Biphosphate/ Sodium Phosphate (Fleet Enema) 133 ml DAILY PRN [place] CONSTIPATION; Start 01/09/17 at 19:30 Nitroglycerin (Nitroglycerin (Sl Tab) 0.4 Mg) 1 tab Q5M PRN SL ANGINA; Start at 19:30 [facility] This patient aranda... PRN PRN XX WOUND CARE; Start 01/10/17 at 03:30 Ondansetron HCl 4 mg 4 mg Q6 IV Last administered on 02/11/17 17:06; Admin Dose 4 MG; Start 01/10/17 at 15:30 Acetaminophen (Ofirmev 1000mg/ 100ml Iv) 100 ml @ 400 mls/hr Q6 IVPB Last administered on 02/11/17 17:06; Admin Dose 400 MLS/HR; Start 01/10/17 at 16:30 IV Flush (NS 10 ml) 10 ml PRN PRN IV IV PROTOCOL; Start 01/10/17 at 20:30 Prednisone 10 mg 10 mg DAILY PO Last administered on 02/11/17 08:18; Admin Dose 10 MG; Start 01/15/17 at 09:00 Hydromorphone HCl/ Dextrose (Dilaudid/D5W) 50 ml @ 2 mls/hr TITRATE IV Last administered on 02/10/17 20:09; Admin Dose 2 MLS/HR; Start 01/23/17 at 16:30 Ergocalciferol (Drisdol) 50,000 unit We@09 PO Last administered on 02/08/17 08 :12; Admin Dose 50,000 UNIT; Start 01/25/17 at 09:00 Calcium Carbonate (Oyster Shell Calcium) 1.25 gm BID PO Last administered on 22:38; Admin Dose 1.25 GM; Start 01/24/17 at 21:00 Pantoprazole (Protonix Tab) 40 mg DAILY@06 PO Last administered on 02/11/17 05: 49; Admin Dose 40 MG; Start 01/26/17 at 06:00 Hydromorphone HCl (Dilaudid) 1 mg Q2 PRN IV PAIN Last administered on 02/11/17 22:52; Admin Dose 1 MG; Start 01/25/17 at 21:00 Atenolol (Tenormin) 25 mg BID PO Last administered on 02/11/17 08:19; Admin Dose 25 MG; Start 01/30/17 at 12:00 Enoxaparin Sodium 30 mg 30 mg DAILY SC Last administered on 02/11/17 08:20; Admin Dose 30 MG; Start 02/01/17 at 16:00 Ampicillin 50 ml @ 100 mls/hr Q8 IVPB Last administered on 02/11/17 13:18; Admin Dose 100 MLS/HR; Start 02/03/17 at 22:00 Metronidazole (Flagyl 500 Mg (Pmx)) 100 ml @ 100 mls/hr Q8 IVPB Last administered on 02/11/17 13:18; Admin Dose 100 MLS/HR; Start 02/03/17 at 22:00 Lactobacillus Acidophilus 1 each 1 each BID PO Last administered on 02/11/17 22 :38; Admin Dose 1 EACH; Start 02/03/17 at 21:00 Colistimethate Sodium/Sodium Chloride (Coly-Mycin/NS) 100 ml @ 200 mls/hr Q12 IVPB Last administered on 02/11/17 22:38; Admin Dose 200 MLS/HR; Start at 21:00 Bisacodyl (Dulcolax Supp) 10 mg BID PRN [place] CONSTIPATION; Start 02/04/17 at 19: 30 Sodium Biphosphate/ Sodium Phosphate (Fleet Enema) 133 ml BID PRN [place] CONSTIPATION; Start 02/04/17 at 19:30 Docusate Sodium (Colace) 100 mg BID PRN PO CONSTIPATION; Start 02/04/17 at 19: 30 Sodium Biphosphate/ Sodium Phosphate (Fleet Enema) 133 ml BID PRN [place] CONSTIPATION; Start 02/09/17 at 10:00 Sodium Biphosphate/ Sodium Phosphate (Fleet Enema) 133 ml BID SD ; Start at 09:00; Status UNV Potassium Chloride (Klor-Con 20) 40 meq DAILY PO Last administered on 02/11/17 08:18; Admin Dose 40 MEQ; Start 02/10/17 at 09:00 YAO LUCAS MD Feb 11, 2017 23:09
[2017-02-12] VITALS (11 sets, daily range): BP systolic 102–117; BP diastolic 51–61; PULSE 76–103; RESP 16–18
[2017-02-12] MEDS: ACETAMINOPHEN 1000MG/100ML IV 100 ML IVPB SCH ×4 (00:29→17:16)
[2017-02-12] MEDS: metroNIDAZOLE 500 MG/NS (PMX) 100 ML IVPB SCH ×4 (00:29→23:18)
[2017-02-12] MEDS: ONDANSETRON 4 MG INJ IV SCH ×4 (00:29→17:16)
[2017-02-12] MEDS: HYDROmorphONE 50 MG in DEXTROSE 5% 45 ML IV SCH (03:51)
[2017-02-12] MEDS: HYDROmorphONE 1 MG/ML SYG IV PRN ×2 (04:00→08:47)
[2017-02-12] MEDS: PANTOPRAZOLE (EC) 40 MG TAB PO SCH (05:09)
[2017-02-12] MEDS: AMPICILLIN 1 GM/NS (PMX) 50 ML IVPB SCH ×3 (05:09→23:18)
[2017-02-12 08:15] LABS: ABNORMAL IP MESSAGE 1; BASOPHILS % 0.2 % (0.0-2.0); LYMPHOCYTES # 0.2 10^3/ul (0.8-2.9); MONOCYTE # 0.7 10^3/ul (0.3-0.9); POSITIVE DIFF @See below; RED BLOOD COUNT 2.89 10^6/ul (4.70-6.10); WHITE BLOOD COUNT 5.4 10^3/ul (4.8-10.8)
[2017-02-12 08:31] LABS: EOSINOPHILS % 0.6 % (0.0-7.0); HEMATOCRIT 26.1 % (42.0-52.0); HEMOGLOBIN 8.4 g/dl (14.0-18.0); LYMPHOCYTES % 3.3 % (15.0-51.0); MEAN CORPUSCULAR HEMOGLOBIN 29.1 pg (29.0-33.0); MEAN CORPUSCULAR HGB CONC 32.2 g/dl (32.0-37.0); MEAN CORPUSCULAR VOLUME 90.3 fl (82.0-101.0); MONOCYTES % 12.9 % (0.0-11.0); NEUTROPHILS % 81.3 % (39.0-77.0); PLATELET COUNT 133 10^3/UL (140-415); RED CELL DISTRIBUTION WIDTH 17.9 % (11.5-14.5)
[2017-02-12] MEDS: MAGNESIUM HYDROXIDE 30ML CUP PO SCH (08:31)
[2017-02-12] MEDS: predniSONE 20 MG TAB PO SCH (08:32)
[2017-02-12] MEDS: POTASSIUM CHLORIDE (SR) 20 MEQ TAB PO SCH (08:32)
[2017-02-12] MEDS: COLISTIMETHATE 150 MG in SOD CHLORIDE 0.9% 100 ML IVPB SCH ×2 (08:32→21:15)
[2017-02-12] MEDS: CALCIUM CARBONATE 1.25 GM TAB PO SCH ×2 (08:32→21:16)
[2017-02-12] MEDS: L ACIDOPHIL/B LACTIS/B LONGUM CAPSULE PO SCH ×2 (08:32→21:16)
[2017-02-12] MEDS: DOCUSATE SODIUM 100 MG CAP PO SCH ×2 (08:33→21:16)
[2017-02-12] MEDS: ATENOLOL 25 MG TAB PO SCH ×2 (08:33→21:00)
[2017-02-12] MEDS: ENOXAPARIN 30 MG/0.3 ML SYG SC SCH (08:45)
--- NOTE | 2017-02-12 11:47 | CONS ---
Date/Time of Note Date/Time of Note DATE: 02/12/17 TIME: 11:46 Assessment/Plan Assessment/Plan Chief Complaint/Hosp Course Impression: 1. Multiple superficial wounds on the back and flank region and behind the right knee 2. Status post percutaneous cholecystostomy drain placement 02/02/2017 3. Small right pleural effusion with atelectasis and right lung base pneumonia. 4. Large B cell anaplastic lymphoma; status post chemo 1 month prior to presentation 5. Sepsis 6. Hyponatremia 7. Hypokalemia 8. Acute renal injury 9. Excisional debridement of multiple sites including large area over the lumbar and flank region, 40 cm x 15 cm x 1 cm, smaller area on the right flank region, 10 cm x 4 cm x 1 cm, and an area behind the right knee, approximately 9 cm x 7 cm x 1 cm with removal of 15 cm x 10 cm x 1 cm soft tissue using scissors to a depth of 1 cm to subcutaneous fat Recommendations: 1. pain control 2. Monitor hemoglobin and hematocrit 3. transfuse PRN hgb less than 8 4. changed colace and mag hydroxide to standing from PRN as some of the pain likely from constipation 5. Percutaneous cholecystostomy drain care teachings to patient and family 6. Aggressive wound care Problems: Consultation Date/Type/Reason Admit Date/Time Jan 09, 2017 at 19:08 Initial Consult Date 01/15/17 Type of Consultation: GI Referring Provider: YAO RAHMAN 24 HR Interval Summary Free Text/Dictation still having night time fever, nausea, vomiting, no blood in emesis Exam/Review of Systems Vital Signs Vitals Vital Signs Date Time Temp Pulse Resp B/P Pulse Ox O2 Delivery O2 Flow Rate FiO2 02/12/17 11:36 98.0 99 18 116/55 100 02/12/17 09:24 Nasal Cannula 02/12/17 02:44 2.0 Intake and Output 02/11/17 02/11/17 02/12/17 15:00 23:00 07:00 Intake Total 100 ml 1270 ml 1324 ml Output Total 610 ml 1400 ml Balance 100 ml 660 ml -76 ml Exam Constitutional: alert, oriented, well developed Psych: nl mood/affect, no complaints Head: atraumatic, normocephalic Eyes: EOMI, nl conjunctiva, nl lids, nl sclera ENMT: mucosa pink and moist, nl external ears & nose, nl lips & teeth, nl nasal mucosa & septum Neck: non-tender, supple Respiratory: clear to auscultation, normal air movement Cardiovascular: nl pulses, regular rate and rhythm Gastrointestinal: bowel sounds, non-tender, soft Results Result Diagram: 02/12/17 0720 02/11/17 0557 Results 24 hrs Laboratory Tests Test 02/12/17 07:20 White Blood Count 5.4 Red Blood Count 2.89 L Hemoglobin 8.4 L Hematocrit 26.1 L Mean Corpuscular Volume 90.3 Mean Corpuscular Hemoglobin 29.1 Mean Corpuscular Hemoglobin Concent 32.2 Red Cell Distribution Width 17.9 H Platelet Count 133 L Mean Platelet Volume 11.0 H Neutrophils % 81.3 H Lymphocytes % 3.3 L Monocytes % 12.9 H Eosinophils % 0.6 Basophils % 0.2 Nucleated Red Blood Cells % 0.0 Neutrophils # (Manual) 4.4 Lymphocytes # 0.2 L Monocytes # 0.7 Eosinophils # 0.0 Basophils # 0.0 Nucleated Red Blood Cells # 0.0 Medications Medications Current Medications Sodium Biphosphate/ Sodium Phosphate (Fleet Enema) 133 ml DAILY PRN [place] CONSTIPATION; Start 01/09/17 at 19:30 Nitroglycerin (Nitroglycerin (Sl Tab) 0.4 Mg) 1 tab Q5M PRN SL ANGINA; Start at 19:30 Misc[facility] This patient aranda... PRN PRN XX WOUND CARE; Start 01/10/17 at 03:30 Ondansetron HCl 4 mg 4 mg Q6 IV Last administered on 02/12/17 11:25; Admin Dose 4 MG; Start 01/10/17 at 15:30 Acetaminophen (Ofirmev 1000mg/ 100ml Iv) 100 ml @ 400 mls/hr Q6 IVPB Last administered on 02/12/17 11:25; Admin Dose 400 MLS/HR; Start 01/10/17 at 16:30 IV Flush (NS 10 ml) 10 ml PRN PRN IV IV PROTOCOL; Start 01/10/17 at 20:30 Prednisone 10 mg 10 mg DAILY PO Last administered on 02/12/17 08:32; Admin Dose 10 MG; Start 01/15/17 at 09:00 Hydromorphone HCl/ Dextrose (Dilaudid/D5W) 50 ml @ 2 mls/hr TITRATE IV Last administered on 02/12/17 03:51; Admin Dose 2 MLS/HR; Start 01/23/17 at 16:30 Ergocalciferol (Drisdol) 50,000 unit We@09 PO Last administered on 02/08/17 08 :12; Admin Dose 50,000 UNIT; Start 01/25/17 at 09:00 Calcium Carbonate (Oyster Shell Calcium) 1.25 gm BID PO Last administered on 08:32; Admin Dose 1.25 GM; Start 01/24/17 at 21:00 Pantoprazole (Protonix Tab) 40 mg DAILY@06 PO Last administered on 02/12/17 05: 09; Admin Dose 40 MG; Start 01/26/17 at 06:00 Hydromorphone HCl (Dilaudid) 1 mg Q2 PRN IV PAIN Last administered on 02/12/17 08:47; Admin Dose 1 MG; Start 01/25/17 at 21:00 Atenolol (Tenormin) 25 mg BID PO Last administered on 02/12/17 08:33; Admin Dose 25 MG; Start 01/30/17 at 12:00 Enoxaparin Sodium 30 mg 30 mg DAILY SC Last administered on 02/12/17 08:45; Admin Dose 30 MG; Start 02/01/17 at 16:00 Ampicillin 50 ml @ 100 mls/hr Q8 IVPB Last administered on 02/12/17 05:09; Admin Dose 100 MLS/HR; Start 02/03/17 at 22:00 Metronidazole (Flagyl 500 Mg (Pmx)) 100 ml @ 100 mls/hr Q8 IVPB Last administered on 02/12/17 07:01; Admin Dose 100 MLS/HR; Start 02/03/17 at 22:00 Lactobacillus Acidophilus 1 each 1 each BID PO Last administered on 02/12/17 08 :32; Admin Dose 1 EACH; Start 02/03/17 at 21:00 Colistimethate Sodium/Sodium Chloride (Coly-Mycin/NS) 100 ml @ 200 mls/hr Q12 IVPB Last administered on 02/12/17 08:32; Admin Dose 200 MLS/HR; Start at 21:00 Bisacodyl (Dulcolax Supp) 10 mg BID PRN [place] CONSTIPATION; Start 02/04/17 at 19: 30 Sodium Biphosphate/ Sodium Phosphate (Fleet Enema) 133 ml BID PRN [place] CONSTIPATION; Start 02/04/17 at 19:30 Sodium Biphosphate/ Sodium Phosphate (Fleet Enema) 133 ml BID PRN [place] CONSTIPATION; Start 02/09/17 at 10:00 Sodium Biphosphate/ Sodium Phosphate (Fleet Enema) 133 ml BID [place] ; Start at 09:00; Status UNV Potassium Chloride (Klor-Con 20) 40 meq DAILY PO Last administered on 02/12/17 08:32; Admin Dose 40 MEQ; Start 02/10/17 at 09:00 Docusate Sodium (Colace) 100 mg BID PO Last administered on 02/12/17 08:33; Admin Dose 100 MG; Start 02/12/17 at 09:00 Magnesium Hydroxide (Milk Of Mag) 30 ml DAILY PO Last administered on 02/12/17 08:31; Admin Dose 30 ML; Start 02/12/17 at 09:00 YAO LUCAS MD Feb 12, 2017 11:47
--- NOTE | 2017-02-12 12:00 | PN ---
Date/Time of Note Date/Time of Note DATE: 02/12/17 TIME: 06:52 Assessment/Plan Lines/Catheters IV Catheter Type (from Nrsg): Peripheral IV [place] in Place (from Nrs): No Assessment/Plan Assessment/Plan [facility] Progress Note Date of Service: 02/12/2017 Place of service: [facility] 5W tele Today's Assessment & Plan: Overall stable. Abdomen remains benign. Sacral and superficial wounds appear ok after operative debridement. No fevers today and no abdominal pain. No indication for acute surgical intervention. Discussed with patient, his nurse, and answered all questions. With above assessment, I've recommended the followin. Continue aggressive medical management 2. Cont full liquid diet and advance slowly 3. Follow GIs recommendations 4. If it would make a difference in management, may consider percutaneous biopsy of segment 6 area of abnormality in the liver 5. Multidisciplinary tumor board presentation and discussions 6. Consideration for clinical trials once improved medically 7. LFT's, amylase and lipase checks tomorrow with labs 8. Will likely benefit from aggressive bowel regimen (some of the pain likely from constipation) 9. Percutaneous cholecystostomy drain care teachings to patient and family 10. Aggressive wound care Thank you very much for having me involved in the care of this very pleasant patient and wonderful family. If you have any questions, please feel free to contact me at [phone]. Nature of presenting problem: High severity Please note that, given the extensive number of diagnoses or management options , the extensive amount and/or complexity of data needed to be reviewed, and high risk of complications and/or morbidity or mortality, this qualifies as high complexity type of decision-making. Disclaimer: Inadvertent spelling and grammatical errors are likely due to EHR/ dictation software use and do not reflect on the quality of delivered patient care. Also, please note that the electronic time recorded on this node does not necessarily reflect the actual time of the visit. 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 HIDA scan positive 01/28/2017. Status post percutaneous cholecystostomy drain placement 02/02/2017. Comorbidities: 1. Multiple superficial wounds on the back and flank region and behind the right knee. S/P excisional debridement of multiple sites including large area over the lumbar and flank region, 40 cm x 15 cm x 1 cm, smaller area on the right flank region, 10 cm x 4 cm x 1 cm, and an area behind the right knee, approximately 9 cm x 7 cm x 1 cm with removal of 15 cm x 10 cm x 1 cm soft tissue using scissors to a depth of 1 cm to subcutaneous fat at [facility] 02/09/17 2. BMI 40.7 3. Small right pleural effusion with atelectasis and right lung base pneumonia. 4. Large B cell anaplastic lymphoma; status post chemo 1 month prior to presentation 5. Sepsis 6. Hyponatremia 7. Hypokalemia 8. Acute renal injury 9. Status post percutaneous cholecystostomy drain placement 02/02/2017 Subjective: No major events or complaints; reported feeling ok and no significant abdominal pain and under control with medications; no significant reported nausea or vomiting and no major diarrhea; no sob or cp; + flatus; + BM; minimal to no activity. No further fevers or sweating. Objective: Vitals: See below I's & O's: See below Exam: GENERAL: On exam, the patient was lying in bed and appeared to be comfortable and in no acute distress. Not very diaphoretic. ABDOMEN: Soft, minimal to no tenderness and nondistended. There are no peritoneal signs or guarding. Perc GB drain with thick green bilious output. SKIN: Skin appears to be pink and feels warm to touch. Number of superficial wounds on the extremities and on the sacral region with intact dressings that we took off and inspected. Wound beds appear to be clean without obvious further necrosis or infection. Surrounding skin pink and warm without significant erythema. NEUROLOGIC: Patient is awake, alert, and follows commands appropriately. Labs: See below Exam/Review of Systems Vital Signs Vitals Vital Signs Date Time Temp Pulse Resp B/P Pulse Ox O2 Delivery O2 Flow Rate FiO2 02/12/17 11:36 98.0 99 18 116/55 100 02/12/17 09:24 Nasal Cannula 02/12/17 02:44 2.0 Intake and Output 02/11/17 02/11/17 02/12/17 15:00 23:00 07:00 Intake Total 100 ml 1270 ml 1324 ml Output Total 610 ml 1400 ml Balance 100 ml 660 ml -76 ml Results Result Diagram: 02/12/17 0720 02/11/17 0557 LENKA HERNANDEZ M.D. Feb 12, 2017 12:00
[2017-02-12] MEDS ORDERED: POTASSIUM CHLORIDE 20 MEQ POWDER FOR ORAL SOLN PO ONE (14:30)
[2017-02-12 15:05] LABS: CALCIUM 9.6 mg/dl (8.4-10.2); CREATININE 0.83 mg/dl (0.61-1.24)
--- NOTE | 2017-02-12 16:23 | PN ---
Date/Time of Note Date/Time of Note DATE: 02/12/17 TIME: 16:19 Assessment/Plan VTE Prophylaxis VTE Prophylaxis Intervention: other Lines/Catheters IV [facility] (from [facility]): Peripheral IV Urinary Cath still in place: No Assessment/Plan Chief Complaint/Hosp Course 1. Multiple superficial wounds on the back and flank region and behind the right knee 2. Status post percutaneous cholecystostomy drain 3. Small right pleural effusion with atelectasis and right lung base pneumonia. 4. Large B cell anaplastic lymphoma; status post chemo 1 month prior to presentation 5. Sepsis 6. Hyponatremia 7. lyte imbalance 8. s/p anasarca 9. Excisional debridement of multiple sites plan home once cleared by id w home antibiotic Problems: Subjective 24 Hr Interval Summary Respiratory: no complaints Cardiovascular: no complaints Gastrointestinal: no complaints Genitourinary: no complaints Musculoskeletal: no complaints Skin: no complaints Exam/Review of Systems Vital Signs Vitals Vital Signs Date Time Temp Pulse Resp B/P Pulse Ox O2 Delivery O2 Flow Rate FiO2 02/12/17 16:12 78 02/12/17 15:33 97.9 18 108/55 99 02/12/17 09:24 Nasal Cannula 02/12/17 02:44 2.0 Intake and Output 02/11/17 02/11/17 02/12/17 15:00 23:00 07:00 Intake Total 100 ml 1270 ml 1324 ml Output Total 610 ml 1400 ml Balance 100 ml 660 ml -76 ml Exam Respiratory: clear to auscultation Cardiovascular: regular rate and rhythm Gastrointestinal: soft Musculoskeletal: nl extremities to inspection Extremities: normal pulses Neurological: BARISTA II-XII intact Results Result Diagram: 02/12/17 0720 02/12/17 1430 Results 24 hrs Laboratory Tests Test 02/12/17 07:20 02/12/17 14:30 White Blood Count 5.4 Red Blood Count 2.89 L Hemoglobin 8.4 L Hematocrit 26.1 L Mean Corpuscular Volume 90.3 Mean Corpuscular Hemoglobin 29.1 Mean Corpuscular Hemoglobin Concent 32.2 Red Cell Distribution Width 17.9 H Platelet Count 133 L Mean Platelet Volume 11.0 H Neutrophils % 81.3 H Lymphocytes % 3.3 L Monocytes % 12.9 H Eosinophils % 0.6 Basophils % 0.2 Nucleated Red Blood Cells % 0.0 Neutrophils # (Manual) 4.4 Lymphocytes # 0.2 L Monocytes # 0.7 Eosinophils # 0.0 Basophils # 0.0 Nucleated Red Blood Cells # 0.0 Sodium Level 131 L Potassium Level 4.0 Chloride Level 98 Carbon Dioxide Level 25 Anion Gap 12 Blood Urea Nitrogen 10 Creatinine 0.83 Glucose Level 98 Calcium Level 9.6 Medications Medications Current Medications Sodium Biphosphate/ Sodium Phosphate (Fleet Enema) 133 ml DAILY PRN [place] CONSTIPATION; Start 01/09/17 at 19:30 Nitroglycerin (Nitroglycerin (Sl Tab) 0.4 Mg) 1 tab Q5M PRN SL ANGINA; Start at 19:30 Miscellaneous Information (Pending [facility] Order For Wound Care) This patient aranda... PRN PRN XX WOUND CARE; Start 01/10/17 at 03:30 Ondansetron HCl 4 mg 4 mg Q6 IV Last administered on 02/12/17 11:25; Admin Dose 4 MG; Start 01/10/17 at 15:30 Acetaminophen (Ofirmev 1000mg/ 100ml Iv) 100 ml @ 400 mls/hr Q6 IVPB Last administered on 02/12/17 11:25; Admin Dose 400 MLS/HR; Start 01/10/17 at 16:30 IV Flush (NS 10 ml) 10 ml PRN PRN IV IV PROTOCOL; Start 01/10/17 at 20:30 Prednisone 10 mg 10 mg DAILY PO Last administered on 02/12/17 08:32; Admin Dose 10 MG; Start 01/15/17 at 09:00 Hydromorphone HCl/ Dextrose (Dilaudid/D5W) 50 ml @ 2 mls/hr TITRATE IV Last administered on 02/12/17 03:51; Admin Dose 2 MLS/HR; Start 01/23/17 at 16:30 Ergocalciferol (Drisdol) 50,000 unit We@09 PO Last administered on 02/08/17 08 :12; Admin Dose 50,000 UNIT; Start 01/25/17 at 09:00 Calcium Carbonate (Oyster Shell Calcium) 1.25 gm BID PO Last administered on 08:32; Admin Dose 1.25 GM; Start 01/24/17 at 21:00 Pantoprazole (Protonix Tab) 40 mg DAILY@06 PO Last administered on 02/12/17 05: 09; Admin Dose 40 MG; Start 01/26/17 at 06:00 Hydromorphone HCl (Dilaudid) 1 mg Q2 PRN IV PAIN Last administered on 02/12/17 08:47; Admin Dose 1 MG; Start 01/25/17 at 21:00 Atenolol (Tenormin) 25 mg BID PO Last administered on 02/12/17 08:33; Admin Dose 25 MG; Start 01/30/17 at 12:00 Enoxaparin Sodium 30 mg 30 mg DAILY SC Last administered on 02/12/17 08:45; Admin Dose 30 MG; Start 02/01/17 at 16:00 Ampicillin 50 ml @ 100 mls/hr Q8 IVPB Last administered on 02/12/17 15:06; Admin Dose 100 MLS/HR; Start 02/03/17 at 22:00 Metronidazole (Flagyl 500 Mg (Pmx)) 100 ml @ 100 mls/hr Q8 IVPB Last administered on 02/12/17 15:07; Admin Dose 100 MLS/HR; Start 02/03/17 at 22:00 Lactobacillus Acidophilus 1 each 1 each BID PO Last administered on 02/12/17 08 :32; Admin Dose 1 EACH; Start 02/03/17 at 21:00 Colistimethate Sodium/Sodium Chloride (Coly-Mycin/NS) 100 ml @ 200 mls/hr Q12 IVPB Last administered on 02/12/17 08:32; Admin Dose 200 MLS/HR; Start at 21:00 Bisacodyl (Dulcolax Supp) 10 mg BID PRN [place] CONSTIPATION; Start 02/04/17 at 19: 30 Sodium Biphosphate/ Sodium Phosphate (Fleet Enema) 133 ml BID PRN [place] CONSTIPATION; Start 02/04/17 at 19:30 Sodium Biphosphate/ Sodium Phosphate (Fleet Enema) 133 ml BID PRN [place] CONSTIPATION; Start 02/09/17 at 10:00 Sodium Biphosphate/ Sodium Phosphate (Fleet Enema) 133 ml BID [place] ; Start at 09:00; Status UNV Potassium Chloride (Klor-Con 20) 40 meq DAILY PO Last administered on 02/12/17 08:32; Admin Dose 40 MEQ; Start 02/10/17 at 09:00 Docusate Sodium (Colace) 100 mg BID PO Last administered on 02/12/17 08:33; Admin Dose 100 MG; Start 02/12/17 at 09:00 Magnesium Hydroxide (Milk Of Mag) 30 ml DAILY PO Last administered on 02/12/17 08:31; Admin Dose 30 ML; Start 02/12/17 at 09:00 TAWNY CELIS MD Feb 12, 2017 16:23
--- NOTE | 2017-02-12 17:19 | CONS ---
Date/Time of Note Date/Time of Note DATE: 02/12/17 TIME: 17:04 Assessment/Plan Assessment/Plan Chief Complaint/Hosp Course ID PROGRESS NOTE CURRENT ABX=> Ampicillin + Colistin IV #10 + Flagyl IV s/p Cancidas/Vanco IV s/p Zosyn + Levaquin IV + Bactrim IV s/p Colistin INH Vanco IV #8 -> DC 8/10 Bactrim po (RX per his HemeOnc)-> dc 8/6 24H INTERVAL SUMMARY 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 * Presented w/Rx Bactrim 1tab daily (Neutropenic PCP prophy per HemeOn) * CT ABD/PEL/CHEST:(+) multiple areas of nodules likely lymphoma, 2 s/p Sepsis w/worsening lactic acidosis 2/2 PNA + Left flank/hip/leg decub RESOLVING * s/p PICC Line sepsis w/02/06/17 BCx (+)CoNS + KP => PICC DC"d 3. Resolving HCAP => CT ABD/PEL/CHEST: (+) PNA=> RESOLVING * 01/24 RESPIRATORY CULTURE Final 3+ KLEB PNEUMONIAE CARBAPENEMASE 4. Acute Cholecystitis w/ pancreatitis -> No evidence of necrosis on CT => RESOLVING * Status post percutaneous cholecystostomy drain placement 02/02/2017 5. Presumed RAMU: likely pre-renal 2/2 vomiting 6. s/p Enterococcal UTI -> Low colony count 7. Multiple superficial wounds on the back and flank region and behind the right knee. * S/P excisional debridement of multiple sites including large area over the lumbar and flank region, 40 cm x 15 cm x 1 cm, smaller area on the right flank region, 10 cm x 4 cm x 1 cm, and an area behind the right knee, approximately 9 cm x 7 cm x 1 cm with removal of 15 cm x 10 cm x 1 cm soft tissue using scissors to a depth of 1 cm to subcutaneous fat at [facility] 02/09/17 * left flank /BACK 01/22 WOUND CULTURE Final * Organism 1 PSEUDOMONAS AERUGINOSA * Organism 2 KLEB PNEUMONIAE CARBAPENEMASE * Organism 3 ENTEROCOCCUS SPECIES * LLEXT wound stage III * 01/12/17 WOUND CULTURE * Organism 1 CITROBACTER FREUNDI * Organism 2 ENTEROCOCCUS SPECIES * Organism 3 CORYNEBACTERIUM SPECIES * Organism 4 STENOTROPHOMONAS MALTOPHILIA INVASIVES: RUEXT PICC ABX ALLERGY: EGG/MILK CURRENT ABX=> Ampicillin+ Colistin IV + Flagyl IV s/p Cancidas /Vanco s/p Zosyn + Levaquin IV + Bactrim IV s/p Colistin INH Vanco IV #8 -> DC 01/19 Bactrim po (RX per his HemeOnc)-> dc 01/15 ID PLAN 1. May DC on the following ABX when cleared by primary MD. * Colistin 150mg IV Q12 H until last day 02/16/17 * Augmentin 875mg po BID until last day 02/19/17 . . Problems: Consultation Date/Type/Reason Admit Date/Time Jan 09, 2017 at 19:08 Initial Consult Date 01/10/17 Type of Consultation: ID Referring Provider: YAO RAHMAN Exam/Review of Systems Vital Signs Vitals Vital Signs Date Time Temp Pulse Resp B/P Pulse Ox O2 Delivery O2 Flow Rate FiO2 02/12/17 16:12 78 02/12/17 15:33 97.9 18 108/55 99 02/12/17 09:24 Nasal Cannula 02/12/17 02:44 2.0 Intake and Output 02/11/17 02/11/17 02/12/17 15:00 23:00 07:00 Intake Total 100 ml 1270 ml 1324 ml Output Total 610 ml 1400 ml Balance 100 ml 660 ml -76 ml Results Result Diagram: 02/12/17 0720 02/12/17 1430 Results 24 hrs Laboratory Tests Test 02/12/17 07:20 02/12/17 14:30 White Blood Count 5.4 Red Blood Count 2.89 L Hemoglobin 8.4 L Hematocrit 26.1 L Mean Corpuscular Volume 90.3 Mean Corpuscular Hemoglobin 29.1 Mean Corpuscular Hemoglobin Concent 32.2 Red Cell Distribution Width 17.9 H Platelet Count 133 L Mean Platelet Volume 11.0 H Neutrophils % 81.3 H Lymphocytes % 3.3 L Monocytes % 12.9 H Eosinophils % 0.6 Basophils % 0.2 Nucleated Red Blood Cells % 0.0 Neutrophils # (Manual) 4.4 Lymphocytes # 0.2 L Monocytes # 0.7 Eosinophils # 0.0 Basophils # 0.0 Nucleated Red Blood Cells # 0.0 Sodium Level 131 L Potassium Level 4.0 Chloride Level 98 Carbon Dioxide Level 25 Anion Gap 12 Blood Urea Nitrogen 10 Creatinine 0.83 Glucose Level 98 Calcium Level 9.6 Medications Medications Current Medications Sodium Biphosphate/ Sodium Phosphate (Fleet Enema) 133 ml DAILY PRN [place] CONSTIPATION; Start 01/09/17 at 19:30 Nitroglycerin (Nitroglycerin (Sl Tab) 0.4 Mg) 1 tab Q5M PRN SL ANGINA; Start at 19:30 Misc[facility] This patient aranda... PRN PRN XX WOUND CARE; Start 01/10/17 at 03:30 Ondansetron HCl 4 mg 4 mg Q6 IV Last administered on 02/12/17 11:25; Admin Dose 4 MG; Start 01/10/17 at 15:30 Acetaminophen (Ofirmev 1000mg/ 100ml Iv) 100 ml @ 400 mls/hr Q6 IVPB Last administered on 02/12/17 11:25; Admin Dose 400 MLS/HR; Start 01/10/17 at 16:30 IV Flush (NS 10 ml) 10 ml PRN PRN IV IV PROTOCOL; Start 01/10/17 at 20:30 Prednisone 10 mg 10 mg DAILY PO Last administered on 02/12/17 08:32; Admin Dose 10 MG; Start 01/15/17 at 09:00 Hydromorphone HCl/ Dextrose (Dilaudid/D5W) 50 ml @ 2 mls/hr TITRATE IV Last administered on 02/12/17 03:51; Admin Dose 2 MLS/HR; Start 01/23/17 at 16:30 Ergocalciferol (Drisdol) 50,000 unit We@09 PO Last administered on 02/08/17 08 :12; Admin Dose 50,000 UNIT; Start 01/25/17 at 09:00 Calcium Carbonate (Oyster Shell Calcium) 1.25 gm BID PO Last administered on 08:32; Admin Dose 1.25 GM; Start 01/24/17 at 21:00 Pantoprazole (Protonix Tab) 40 mg DAILY@06 PO Last administered on 02/12/17 05: 09; Admin Dose 40 MG; Start 01/26/17 at 06:00 Hydromorphone HCl (Dilaudid) 1 mg Q2 PRN IV PAIN Last administered on 02/12/17 08:47; Admin Dose 1 MG; Start 01/25/17 at 21:00 Atenolol (Tenormin) 25 mg BID PO Last administered on 02/12/17 08:33; Admin Dose 25 MG; Start 01/30/17 at 12:00 Enoxaparin Sodium 30 mg 30 mg DAILY SC Last administered on 02/12/17 08:45; Admin Dose 30 MG; Start 02/01/17 at 16:00 Ampicillin 50 ml @ 100 mls/hr Q8 IVPB Last administered on 02/12/17 15:06; Admin Dose 100 MLS/HR; Start 02/03/17 at 22:00 Metronidazole (Flagyl 500 Mg (Pmx)) 100 ml @ 100 mls/hr Q8 IVPB Last administered on 02/12/17 15:07; Admin Dose 100 MLS/HR; Start 02/03/17 at 22:00 Lactobacillus Acidophilus 1 each 1 each BID PO Last administered on 02/12/17 08 :32; Admin Dose 1 EACH; Start 02/03/17 at 21:00 Colistimethate Sodium/Sodium Chloride (Coly-Mycin/NS) 100 ml @ 200 mls/hr Q12 IVPB Last administered on 02/12/17 08:32; Admin Dose 200 MLS/HR; Start at 21:00 Bisacodyl (Dulcolax Supp) 10 mg BID PRN [place] CONSTIPATION; Start 02/04/17 at 19: 30 Sodium Biphosphate/ Sodium Phosphate (Fleet Enema) 133 ml BID PRN [place] CONSTIPATION; Start 02/04/17 at 19:30 Sodium Biphosphate/ Sodium Phosphate (Fleet Enema) 133 ml BID PRN [place] CONSTIPATION; Start 02/09/17 at 10:00 Sodium Biphosphate/ Sodium Phosphate (Fleet Enema) 133 ml BID [place] ; Start at 09:00; Status UNV Potassium Chloride (Klor-Con 20) 40 meq DAILY PO Last administered on 02/12/17 08:32; Admin Dose 40 MEQ; Start 02/10/17 at 09:00 Docusate Sodium (Colace) 100 mg BID PO Last administered on 02/12/17 08:33; Admin Dose 100 MG; Start 02/12/17 at 09:00 Magnesium Hydroxide (Milk Of Mag) 30 ml DAILY PO Last administered on 02/12/17 08:31; Admin Dose 30 ML; Start 02/12/17 at 09:00 AARON BELLAMY NP Feb 12, 2017 17:17
--- NOTE | 2017-02-12 22:26 | CONS ---
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 His last chemo was a month ago and hadn't had since due to experiencing similar presenting symptoms. record from pt's oncologist Kain Wisdom - P Left flank mass, CT-guided core needle biopsies with touch imprints: Completely necrotic tissue, insufficient for pathologic evaluation. PER PT REPORT- reportedly scheduled for change in therapy due to what appears to be lack of adequate response CT ABD/PEL/CHEST:(+) multiple areas of nodules likely lymphoma, PT WANT TO GO HOME AND FAMILY ALREADY CALLED HIS PRIMARY ONCOLOGIST TO ARRANGE THE APPT JOSSELIN POST DC OK TO DC HOME IF CLEARED BY PRIMARY AND ALL CONSULTANTS WITH F-UP BY DR WISDOM LEUKOPENIA IN PT WITH HNL POST CHEMO AND WITH SEPTIC PICTURE MONITOR BLOOD COUNT CLOSELY POST NEUPOGEN WBC- FLUCTUATING IMPROVED ON NEUPOGEN X 2 DC NEUPOGEN PANCYTOPENIA POST CHEMO CONT TO MONITOR PRBC NEEDED s/p Sepsis w/worsening lactic acidosis 2/2 PNA + Left flank/hip/leg decub Resolving HCAP => CT ABD/PEL/CHEST: (+) PNA * 01/24 RESPIRATORY CULTURE Final 3+ KLEB PNEUMONIAE CARBAPENEMASE ID W-UP pancreatitis. Abd Pain with N/V: 2/2 known lymphoma - pain mgmt - Anti-emetics Hyponatremia and Hypokalemia: 2/2 vomiting - NS IVF - replete K+ as needed Presumed RAMU: likely pre-renal 2/2 vomiting - cont IVF for now Problems: Consultation Date/Type/Reason Admit Date/Time Jan 09, 2017 at 19:08 Initial Consult Date 01/10/17 Type of Consultation: [facility] Referring Provider: YAO RAHMAN 24 HR Interval Summary Free Text/Dictation ALL NOTED FELLING BETTER Exam/Review of Systems Vital Signs Vitals Vital Signs Date Time Temp Pulse Resp B/P Pulse Ox O2 Delivery O2 Flow Rate FiO2 02/12/17 20:25 02/12/17 19:57 97.4 16 102/51 97 02/12/17 09:24 Nasal Cannula 02/12/17 02:44 2.0 Intake and Output 02/11/17 02/11/17 02/12/17 15:00 23:00 07:00 Intake Total 100 ml 1270 ml 1324 ml Output Total 610 ml 1400 ml Balance 100 ml 660 ml -76 ml Exam GENERAL: This is a well-developed, ill-appearing, middle-aged, man, who is awake, in no distress. HEENT: Head atraumatic, normocephalic. Sclerae anicteric. Buccal mucosa pink and dry. NECK: Supple. CHEST: Rise symmetrical. Breath sounds diminished at the bases. HEART: S1, S2. ABDOMEN: Soft, bowel sounds present. EXTREMITIES: Without cyanosis. + WOUNDS Results Result Diagram: 02/12/17 0720 02/12/17 1430 Results 24 hrs Laboratory Tests Test 02/12/17 07:20 02/12/17 14:30 White Blood Count 5.4 Red Blood Count 2.89 L Hemoglobin 8.4 L Hematocrit 26.1 L Mean Corpuscular Volume 90.3 Mean Corpuscular Hemoglobin 29.1 Mean Corpuscular Hemoglobin Concent 32.2 Red Cell Distribution Width 17.9 H Platelet Count 133 L Mean Platelet Volume 11.0 H Neutrophils % 81.3 H Lymphocytes % 3.3 L Monocytes % 12.9 H Eosinophils % 0.6 Basophils % 0.2 Nucleated Red Blood Cells % 0.0 Neutrophils # (Manual) 4.4 Lymphocytes # 0.2 L Monocytes # 0.7 Eosinophils # 0.0 Basophils # 0.0 Nucleated Red Blood Cells # 0.0 Sodium Level 131 L Potassium Level 4.0 Chloride Level 98 Carbon Dioxide Level 25 Anion Gap 12 Blood Urea Nitrogen 10 Creatinine 0.83 Glucose Level 98 Calcium Level 9.6 Medications Medications Current Medications Sodium Biphosphate/ Sodium Phosphate (Fleet Enema) [address] CONSTIPATION; Start 01/09/17 at 19:30 Nitroglycerin (Nitroglycerin (Sl Tab) 0.4 Mg) 1 tab Q5M PRN SL ANGINA; Start at 19:30 Miscellaneous Information (Pending [facility] Order For Wound Care) This patient aranda... PRN PRN XX WOUND CARE; Start 01/10/17 at 03:30 Ondansetron HCl 4 mg 4 mg Q6 IV Last administered on 02/12/17t 17:16; Admin Dose 4 MG; Start 01/10/17 at 15:30 Acetaminophen (Ofirmev 1000mg/ 100ml Iv) 100 ml @ 400 mls/hr Q6 IVPB Last administered on 02/12/17 17:16; Admin Dose 400 MLS/HR; Start 01/10/17 at 16:30 IV Flush (NS 10 ml) 10 ml PRN PRN IV IV PROTOCOL; Start 01/10/17 at 20:30 Prednisone 10 mg 10 mg DAILY PO Last administered on 02/12/17 08:32; Admin Dose 10 MG; Start 01/15/17 at 09:00 Hydromorphone HCl/ Dextrose (Dilaudid/D5W) 50 ml @ 2 mls/hr TITRATE IV Last administered on 02/12/17 03:51; Admin Dose 2 MLS/HR; Start 01/23/17 at 16:30 Ergocalciferol (Drisdol) 50,000 unit We@09 PO Last administered on 02/08/17 08 :12; Admin Dose 50,000 UNIT; Start 01/25/17 at 09:00 Calcium Carbonate (Oyster Shell Calcium) 1.25 gm BID PO Last administered on 21:16; Admin Dose 1.25 GM; Start 01/24/17 at 21:00 Pantoprazole (Protonix Tab) 40 mg DAILY@06 PO Last administered on 02/12/17 05: 09; Admin Dose 40 MG; Start 01/26/17 at 06:00 Hydromorphone HCl (Dilaudid) 1 mg Q2 PRN IV PAIN Last administered on 02/12/17 08:47; Admin Dose 1 MG; Start 01/25/17 at 21:00 Atenolol (Tenormin) 25 mg BID PO Last administered on 02/12/17 08:33; Admin Dose 25 MG; Start 01/30/17 at 12:00 Enoxaparin Sodium 30 mg 30 mg DAILY SC Last administered on 02/12/17 08:45; Admin Dose 30 MG; Start 02/01/17 at 16:00 Ampicillin 50 ml @ 100 mls/hr Q8 IVPB Last administered on 02/12/17 15:06; Admin Dose 100 MLS/HR; Start 02/03/17 at 22:00 Metronidazole (Flagyl 500 Mg (Pmx)) 100 ml @ 100 mls/hr Q8 IVPB Last administered on 02/12/17 15:07; Admin Dose 100 MLS/HR; Start 02/03/17 at 22:00 Lactobacillus Acidophilus 1 each 1 each BID PO Last administered on 02/12/17 21 :16; Admin Dose 1 EACH; Start 02/03/17 at 21:00 Colistimethate Sodium/Sodium Chloride (Coly-Mycin/NS) 100 ml @ 200 mls/hr Q12 IVPB Last administered on 02/12/17 21:15; Admin Dose 200 MLS/HR; Start at 21:00 Bisacodyl (Dulcolax Supp) [address] CONSTIPATION; Start 02/04/17 at 19: 30 Sodium Biphosphate/ Sodium Phosphate (Fleet Enema) [address] CONSTIPATION; Start 02/04/17 at 19:30 Sodium Biphosphate/ Sodium Phosphate (Fleet Enema) [address] CONSTIPATION; Start 02/09/17 at 10:00 Sodium Biphosphate/ Sodium Phosphate (Fleet Enema) [address] ; Start at 09:00; Status UNV Potassium Chloride (Klor-Con 20) 40 meq DAILY PO Last administered on 02/12/17 08:32; Admin Dose 40 MEQ; Start 02/10/17 at 09:00 Docusate Sodium (Colace) 100 mg BID PO Last administered on 02/12/17 21:16; Admin Dose 100 MG; Start 02/12/17 at 09:00 Magnesium Hydroxide (Milk Of Mag) 30 ml DAILY PO Last administered on 02/12/17 08:31; Admin Dose 30 ML; Start 02/12/17 at 09:00 MOIRA BIRMINGHAM MD Feb 12, 2017 22:26
[2017-02-13] VITALS (13 sets, daily range): BP systolic 96–165; BP diastolic 48–75; PULSE 71–93; RESP 16–20
[2017-02-13] MEDS: ONDANSETRON 4 MG INJ IV SCH ×5 (00:02→22:32)
[2017-02-13] MEDS: ACETAMINOPHEN 1000MG/100ML IV 100 ML IVPB SCH ×3 (00:03→11:55)
[2017-02-13] MEDS: HYDROmorphONE 1 MG/ML SYG IV PRN ×4 (01:02→22:32)
[2017-02-13] MEDS: metroNIDAZOLE 500 MG/NS (PMX) 100 ML IVPB SCH ×2 (05:35→14:00)
[2017-02-13] MEDS: AMPICILLIN 1 GM/NS (PMX) 50 ML IVPB SCH ×2 (05:35→14:00)
[2017-02-13] MEDS: PANTOPRAZOLE (EC) 40 MG TAB PO SCH (05:36)
[2017-02-13] MEDS: HYDROmorphONE 50 MG in DEXTROSE 5% 45 ML IV SCH (06:17)
[2017-02-13 07:16] LABS: ABNORMAL IP MESSAGE 1; BASOPHILS % 0.2 % (0.0-2.0); EOSINOPHILS # 0.1 10^3/ul (0.0-0.5); HEMATOCRIT 26.5 % (42.0-52.0); HEMOGLOBIN 8.4 g/dl (14.0-18.0); LYMPHOCYTES # 0.2 10^3/ul (0.8-2.9); LYMPHOCYTES % 3.8 % (15.0-51.0); MEAN CORPUSCULAR HEMOGLOBIN 28.9 pg (29.0-33.0); MEAN CORPUSCULAR HGB CONC 31.7 g/dl (32.0-37.0); MEAN CORPUSCULAR VOLUME 91.1 fl (82.0-101.0); MEAN PLATELET VOLUME 10.4 fl (7.4-10.4); MONOCYTE # 0.6 10^3/ul (0.3-0.9); MONOCYTES % 11.9 % (0.0-11.0); NEUTROPHILS % 80.9 % (39.0-77.0); PLATELET COUNT 160 10^3/UL (140-415); POSITIVE DIFF @See below; RED BLOOD COUNT 2.91 10^6/ul (4.70-6.10); RED CELL DISTRIBUTION WIDTH 18.2 % (11.5-14.5)
[2017-02-13] MEDS: CALCIUM CARBONATE 1.25 GM TAB PO SCH ×2 (08:40→20:30)
[2017-02-13] MEDS: DOCUSATE SODIUM 100 MG CAP PO SCH ×2 (08:40→20:30)
[2017-02-13] MEDS: L ACIDOPHIL/B LACTIS/B LONGUM CAPSULE PO SCH ×2 (08:40→20:30)
[2017-02-13] MEDS: MAGNESIUM HYDROXIDE 30ML CUP PO SCH (08:40)
[2017-02-13] MEDS: ATENOLOL 25 MG TAB PO SCH ×2 (08:40→20:31)
[2017-02-13] MEDS: POTASSIUM CHLORIDE (SR) 20 MEQ TAB PO SCH (08:40)
[2017-02-13] MEDS: predniSONE 20 MG TAB PO SCH (08:42)
[2017-02-13] MEDS: ENOXAPARIN 30 MG/0.3 ML SYG SC SCH (08:42)
[2017-02-13] MEDS: COLISTIMETHATE 150 MG in SOD CHLORIDE 0.9% 100 ML IVPB SCH ×2 (08:45→20:30)
--- NOTE | 2017-02-13 10:50 | CONS ---
Date/Time of Note Date/Time of Note DATE: 02/13/17 TIME: 10:48 Assessment/Plan Assessment/Plan Chief Complaint/Hosp Course Impression: 1. Multiple superficial wounds on the back and flank region and behind the right knee 2. Status post percutaneous cholecystostomy drain placement 02/02/2017 3. Small right pleural effusion with atelectasis and right lung base pneumonia. 4. Large B cell anaplastic lymphoma; status post chemo 1 month prior to presentation 5. Sepsis 6. Hyponatremia 7. Hypokalemia 8. Acute renal injury 9. Excisional debridement of multiple sites including large area over the lumbar and flank region, 40 cm x 15 cm x 1 cm, smaller area on the right flank region, 10 cm x 4 cm x 1 cm, and an area behind the right knee, approximately 9 cm x 7 cm x 1 cm with removal of 15 cm x 10 cm x 1 cm soft tissue using scissors to a depth of 1 cm to subcutaneous fat Recommendations: 1. pain control 2. Monitor hemoglobin and hematocrit 3. transfuse PRN hgb less than 8 4. changed colace and mag hydroxide to standing from PRN as some of the pain likely from constipation 5. Percutaneous cholecystostomy drain care teachings to patient and family 6. Aggressive wound care 7. Dr. Hewitt to resume care of this patient tomorrow. Problems: Consultation Date/Type/Reason Admit Date/Time Jan 09, 2017 at 19:08 Initial Consult Date 01/15/17 Type of Consultation: GI Referring Provider: YAO RAHMAN 24 HR Interval Summary Free Text/Dictation complains of night time fever, mild nausea, occasional vomiting but only small amount and able to keep PO Exam/Review of Systems Vital Signs Vitals Vital Signs Date Time Temp Pulse Resp B/P Pulse Ox O2 Delivery O2 Flow Rate FiO2 02/13/17 08:30 Nasal Cannula 2.0 02/13/17 08:12 85 02/13/17 07:28 98.0 18 109/56 98 Intake and Output 02/12/17 02/12/17 02/13/17 15:00 23:00 07:00 Intake Total 100 ml 1320 ml 1050 ml Output Total 1050 ml 900 ml Balance 100 ml 270 ml 150 ml Exam Constitutional: alert, oriented, well developed Psych: nl mood/affect, no complaints Head: atraumatic, normocephalic Eyes: EOMI, nl conjunctiva, nl lids ENMT: nl external ears & nose, nl lips & teeth, nl nasal mucosa & septum Neck: non-tender, supple Respiratory: clear to auscultation, normal air movement Cardiovascular: nl pulses, regular rate and rhythm Gastrointestinal: bowel sounds, non-tender, soft Results Result Diagram: 02/13/17 0604 02/12/17 1430 Results 24 hrs Laboratory Tests Test 02/12/17 14:30 02/13/17 06:04 Sodium Level 131 L Potassium Level 4.0 Chloride Level 98 Carbon Dioxide Level 25 Anion Gap 12 Blood Urea Nitrogen 10 Creatinine 0.83 Glucose Level 98 Calcium Level 9.6 White Blood Count 5.0 Red Blood Count 2.91 L Hemoglobin 8.4 L Hematocrit 26.5 L Mean Corpuscular Volume 91.1 Mean Corpuscular Hemoglobin 28.9 L Mean Corpuscular Hemoglobin Concent 31.7 L Red Cell Distribution Width 18.2 H Platelet Count 160 # Mean Platelet Volume 10.4 Neutrophils % 80.9 H Lymphocytes % 3.8 L Monocytes % 11.9 H Eosinophils % 1.0 Basophils % 0.2 Nucleated Red Blood Cells % 0.0 Neutrophils # (Manual) 4.0 Lymphocytes # 0.2 L Monocytes # 0.6 Eosinophils # 0.1 Basophils # 0.0 Nucleated Red Blood Cells # 0.0 Medications Medications Current Medications Sodium Biphosphate/ Sodium Phosphate (Fleet Enema) 133 ml DAILY PRN [place] CONSTIPATION; Start 01/09/17 at 19:30 Nitroglycerin (Nitroglycerin (Sl Tab) 0.4 Mg) 1 tab Q5M PRN SL ANGINA; Start at 19:30 [facility] This patient aranda... PRN PRN XX WOUND CARE; Start 01/10/17 at 03:30 Ondansetron HCl 4 mg 4 mg Q6 IV Last administered on 02/13/17 05:35; Admin Dose 4 MG; Start 01/10/17 at 15:30 Acetaminophen (Ofirmev 1000mg/ 100ml Iv) 100 ml @ 400 mls/hr Q6 IVPB Last administered on 02/13/17 05:35; Admin Dose 400 MLS/HR; Start 01/10/17 at 16:30 IV Flush (NS 10 ml) 10 ml PRN PRN IV IV PROTOCOL; Start 01/10/17 at 20:30 Prednisone 10 mg 10 mg DAILY PO Last administered on 02/13/17 08:42; Admin Dose 10 MG; Start 01/15/17 at 09:00 Hydromorphone HCl/ Dextrose (Dilaudid/D5W) 50 ml @ 2 mls/hr TITRATE IV Last administered on 02/13/17 06:17; Admin Dose 2 MLS/HR; Start 01/23/17 at 16:30 Ergocalciferol (Drisdol) 50,000 unit We@09 PO Last administered on 02/08/17 08 :12; Admin Dose 50,000 UNIT; Start 01/25/17 at 09:00 Calcium Carbonate (Oyster Shell Calcium) 1.25 gm BID PO Last administered on 08:40; Admin Dose 1.25 GM; Start 01/24/17 at 21:00 Pantoprazole (Protonix Tab) 40 mg DAILY@06 PO Last administered on 02/13/17 05: 36; Admin Dose 40 MG; Start 01/26/17 at 06:00 Hydromorphone HCl (Dilaudid) 1 mg Q2 PRN IV PAIN Last administered on 02/13/17 08:41; Admin Dose 1 MG; Start 01/25/17 at 21:00 Atenolol (Tenormin) 25 mg BID PO Last administered on 02/13/17 08:40; Admin Dose 25 MG; Start 01/30/17 at 12:00 Enoxaparin Sodium 30 mg 30 mg DAILY SC Last administered on 02/13/17 08:42; Admin Dose 30 MG; Start 02/01/17 at 16:00 Ampicillin 50 ml @ 100 mls/hr Q8 IVPB Last administered on 02/13/17 05:35; Admin Dose 100 MLS/HR; Start 02/03/17 at 22:00 Metronidazole (Flagyl 500 Mg (Pmx)) 100 ml @ 100 mls/hr Q8 IVPB Last administered on 02/13/17 05:35; Admin Dose 100 MLS/HR; Start 02/03/17 at 22:00 Lactobacillus Acidophilus 1 each 1 each BID PO Last administered on 02/13/17 08 :40; Admin Dose 1 EACH; Start 02/03/17 at 21:00 Colistimethate Sodium/Sodium Chloride (Coly-Mycin/NS) 100 ml @ 200 mls/hr Q12 IVPB Last administered on 02/13/17 08:45; Admin Dose 200 MLS/HR; Start at 21:00 Bisacodyl (Dulcolax Supp) 10 mg BID PRN [place] CONSTIPATION; Start 02/04/17 at 19: 30 Sodium Biphosphate/ Sodium Phosphate (Fleet Enema) 133 ml BID PRN [place] CONSTIPATION; Start 02/04/17 at 19:30 Sodium Biphosphate/ Sodium Phosphate (Fleet Enema) 133 ml BID PRN [place] CONSTIPATION; Start 02/09/17 at 10:00 Sodium Biphosphate/ Sodium Phosphate (Fleet Enema) 133 ml BID [place] ; Start at 09:00; Status UNV Potassium Chloride (Klor-Con 20) 40 meq DAILY PO Last administered on 02/13/17 08:40; Admin Dose 40 MEQ; Start 02/10/17 at 09:00 Docusate Sodium (Colace) 100 mg BID PO Last administered on 02/13/17 08:40; Admin Dose 100 MG; Start 02/12/17 at 09:00 Magnesium Hydroxide (Milk Of Mag) 30 ml DAILY PO Last administered on 02/13/17 08:40; Admin Dose 30 ML; Start 02/12/17 at 09:00 YAO LUCAS MD Feb 13, 2017 10:50
--- NOTE | 2017-02-13 12:31 | PN ---
Date/Time of Note Date/Time of Note DATE: 02/13/17 TIME: 12:30 Assessment/Plan VTE Prophylaxis VTE Prophylaxis Intervention: LMWH Lines/Catheters IV Catheter Type (from Nrs): Peripheral IV Urinary Cath still in place: No Assessment/Plan Chief Complaint/Hosp Course 31 yo male with anaplastic B Cell lymphoma who presented with abdominal pain, found to have 1. pancreatitis on pain control with DIilaudid s/p Cholecystomy 2 Fevers 102>104 s/p Cholecystomy however recurent fevers ?source ? wounds vs Bacterimia from PICC line s/p removal of PICC line 3 Hyponatremia on bactrim with d5w controlled 4 Acute renal injury resolved 5 Right pleural effusion with atelectasis and right lung base pneumonia, resolved. 6. Large B cell anaplastic lymphoma; status post chemo 1 month, leukopenia now neutropenic 7. 2 Hypoparathyroidism On Calcitrol and Caco3 8 Severe anemia 9 Morbid obesity 10 excisional debridement of multiple sites including large area over the lumbar and flank region, 40 cm x 15 cm x 1 cm, smaller area on the right flank region, 10 cm x 4 cm x 1 cm, and an area behind the right knee, approximately 9 cm x 7 cm x 1 cm with removal of 15 cm x 10 cm x 1 cm soft tissue using scissors to a depth of 1 cm to subcutaneous fat 11 hypokalemia Assessment/Plan 1. on ampicillin/colitin/flagyl, spoke to I.D will switch to po augmentin on d /c and will need iv colistin till 02/16( which is very expensive); no PICC line per I.D 2 s/p Surgical debridement 3 Spoke to Anaesthesia will switch to po pain meds( on Dilaudid gtt and dilaudid iv) 4 PT 5 ABG 6 Wound care 7 K repletion 8 GI/DVT prophylaxsis 9 Apppreciate all consults 10 condition guarded Problems: Subjective 24 Hr Interval Summary Free Text/Dictation Pt overall improving Exam/Review of Systems Vital Signs Vitals Vital Signs Date Time Temp Pulse Resp B/P Pulse Ox O2 Delivery O2 Flow Rate FiO2 02/13/17 12:13 98.6 89 18 121/57 98 02/13/17 08:30 Nasal Cannula 2.0 Intake and Output 02/12/17 02/12/17 02/13/17 15:00 23:00 07:00 Intake Total 100 ml 1320 ml 1050 ml Output Total 1050 ml 900 ml Balance 100 ml 270 ml 150 ml Exam Gen: Awake,alert Neck:supple CVS:Tacycardic Lungs:decreased breath sounds B/L bases Abdomen:soft, cholecytsomy Ext : edema Multiple wounds Results Result Diagram: 02/13/17 0604 02/12/17 1430 Results 24 hrs Laboratory Tests Test 02/12/17 14:30 02/13/17 06:04 Sodium Level 131 L Potassium Level 4.0 Chloride Level 98 Carbon Dioxide Level 25 Anion Gap 12 Blood Urea Nitrogen 10 Creatinine 0.83 Glucose Level 98 Calcium Level 9.6 White Blood Count 5.0 Red Blood Count 2.91 L Hemoglobin 8.4 L Hematocrit 26.5 L Mean Corpuscular Volume 91.1 Mean Corpuscular Hemoglobin 28.9 L Mean Corpuscular Hemoglobin Concent 31.7 L Red Cell Distribution Width 18.2 H Platelet Count 160 # Mean Platelet Volume 10.4 Neutrophils % 80.9 H Lymphocytes % 3.8 L Monocytes % 11.9 H Eosinophils % 1.0 Basophils % 0.2 Nucleated Red Blood Cells % 0.0 Neutrophils # (Manual) 4.0 Lymphocytes # 0.2 L Monocytes # 0.6 Eosinophils # 0.1 Basophils # 0.0 Nucleated Red Blood Cells # 0.0 Medications Medications Current Medications Sodium Biphosphate/ Sodium Phosphate (Fleet Enema) 133 ml DAILY PRN [place] CONSTIPATION; Start 01/09/17 at 19:30 Nitroglycerin (Nitroglycerin (Sl Tab) 0.4 Mg) 1 tab Q5M PRN SL ANGINA; Start at 19:30 Miscellaneous Information (Pending Santyl Order For Wound Care) This patient aranda... PRN PRN XX WOUND CARE; Start 01/10/17 at 03:30 Ondansetron HCl (Zofran Inj) 4 mg Q6 IV Last administered on 02/13/17 11:55; Admin Dose 4 MG; Start 01/10/17 at 15:30 IV Flush (NS 10 ml) 10 ml PRN PRN IV IV PROTOCOL; Start 01/10/17 at 20:30 Prednisone 10 mg 10 mg DAILY PO Last administered on 02/13/17 08:42; Admin Dose 10 MG; Start 01/15/17 at 09:00 Hydromorphone HCl/ Dextrose (Dilaudid/D5W) 50 ml @ 2 mls/hr TITRATE IV Last administered on 02/13/17 06:17; Admin Dose 2 MLS/HR; Start 01/23/17 at 16:30 Ergocalciferol (Drisdol) 50,000 unit We@09 PO Last administered on 02/08/17 08 :12; Admin Dose 50,000 UNIT; Start 01/25/17 at 09:00 Calcium Carbonate (Oyster Shell Calcium) 1.25 gm BID PO Last administered on 08:40; Admin Dose 1.25 GM; Start 01/24/17 at 21:00 Pantoprazole (Protonix Tab) 40 mg DAILY@06 PO Last administered on 02/13/17 05: 36; Admin Dose 40 MG; Start 01/26/17 at 06:00 Hydromorphone HCl (Dilaudid) 1 mg Q2 PRN IV PAIN Last administered on 02/13/17 08:41; Admin Dose 1 MG; Start 01/25/17 at 21:00 Atenolol (Tenormin) 25 mg BID PO Last administered on 02/13/17 08:40; Admin Dose 25 MG; Start 01/30/17 at 12:00 Enoxaparin Sodium 30 mg 30 mg DAILY SC Last administered on 02/13/17 08:42; Admin Dose 30 MG; Start 02/01/17 at 16:00 Ampicillin 50 ml @ 100 mls/hr Q8 IVPB Last administered on 02/13/17 05:35; Admin Dose 100 MLS/HR; Start 02/03/17 at 22:00 Metronidazole (Flagyl 500 Mg (Pmx)) 100 ml @ 100 mls/hr Q8 IVPB Last administered on 02/13/17 05:35; Admin Dose 100 MLS/HR; Start 02/03/17 at 22:00 Lactobacillus Acidophilus 1 each 1 each BID PO Last administered on 02/13/17 08 :40; Admin Dose 1 EACH; Start 02/03/17 at 21:00 Colistimethate Sodium/Sodium Chloride (Coly-Mycin/NS) 100 ml @ 200 mls/hr Q12 IVPB Last administered on 02/13/17 08:45; Admin Dose 200 MLS/HR; Start at 21:00 Bisacodyl (Dulcolax Supp) 10 mg BID PRN PA CONSTIPATION; Start 02/04/17 at 19: 30 Sodium Biphosphate/ Sodium Phosphate (Fleet Enema) 133 ml BID PRN PA CONSTIPATION; Start 02/04/17 at 19:30 Sodium Biphosphate/ Sodium Phosphate (Fleet Enema) 133 ml BID PRN PA CONSTIPATION; Start 02/09/17 at 10:00 Sodium Biphosphate/ Sodium Phosphate (Fleet Enema) 133 ml BID PA ; Start at 09:00; Status UNV Potassium Chloride (Klor-Con 20) 40 meq DAILY PO Last administered on 02/13/17 08:40; Admin Dose 40 MEQ; Start 02/10/17 at 09:00 Docusate Sodium (Colace) 100 mg BID PO Last administered on 02/13/17 08:40; Admin Dose 100 MG; Start 02/12/17 at 09:00 Magnesium Hydroxide (Milk Of Mag) 30 ml DAILY PO Last administered on 02/13/17 08:40; Admin Dose 30 ML; Start 02/12/17 at 09:00 TAMARA HARTMANN MD Feb 13, 2017 12:31
--- NOTE | 2017-02-13 12:59 | CONS ---
Date/Time of Note Date/Time of Note DATE: 02/13/17 TIME: 12:46 Assessment/Plan Assessment/Plan Chief Complaint/Hosp Course ID PROGRESS NOTE CURRENT ABX=> Ampicillin + Colistin IV #11 + Flagyl IV s/p Cancidas/Vanco IV s/p Zosyn + Levaquin IV + Bactrim IV s/p Colistin INH Vanco IV #8 -> DC 8/10 Bactrim po (RX per his HemeOnc)-> dc 8/6 24H INTERVAL SUMMARY * Yesterday I was asked by Dr. Jordan to give DC home IV ABX recommendations for possible DC today -- patient with MDRO (+)BCx sensitive to Colistin IV w/ multiple GNR pathogens in recently debrided wounds. Today, there is concern from primary team that he is not ready for DC home today due to Colistin not available or not approved for HH IV and patient still on Dilaudid, with mobility issues not optimized. 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 * Presented w/Rx Bactrim 1tab daily (Neutropenic PCP prophy per HemeOnc) * CT ABD/PEL/CHEST:(+) multiple areas of nodules likely lymphoma, 2 s/p Sepsis w/worsening lactic acidosis 2/2 PNA + Left flank/hip/leg decub RESOLVING * s/p PICC Line sepsis w/02/06/17 BCx (+)CoNS + KP => PICC DC"d 3. Resolving HCAP => CT ABD/PEL/CHEST: (+) PNA=> RESOLVING * 01/24 RESPIRATORY CULTURE Final 3+ KLEB PNEUMONIAE CARBAPENEMASE 4. Acute Cholecystitis w/ pancreatitis -> No evidence of necrosis on CT => RESOLVING * Status post percutaneous cholecystostomy drain placement 02/02/2017 5. Presumed RAMU: likely pre-renal 2/2 vomiting 6. s/p Enterococcal UTI -> Low colony count 7. Multiple superficial wounds on the back and flank region and behind the right knee. * S/P excisional debridement of multiple sites including large area over the lumbar and flank region, 40 cm x 15 cm x 1 cm, smaller area on the right flank region, 10 cm x 4 cm x 1 cm, and an area behind the right knee, approximately 9 cm x 7 cm x 1 cm with removal of 15 cm x 10 cm x 1 cm soft tissue using scissors to a depth of 1 cm to subcutaneous fat at [facility] 02/09/17 * left flank /BACK 01/22 WOUND CULTURE Final * Organism 1 PSEUDOMONAS AERUGINOSA * Organism 2 KLEB PNEUMONIAE CARBAPENEMASE * Organism 3 ENTEROCOCCUS SPECIES * LLEXT wound stage III * 01/12/17 WOUND CULTURE * Organism 1 CITROBACTER FREUNDI * Organism 2 ENTEROCOCCUS SPECIES * Organism 3 CORYNEBACTERIUM SPECIES * Organism 4 STENOTROPHOMONAS MALTOPHILIA INVASIVES: RUEXT PICC ABX ALLERGY: EGG/MILK CURRENT ABX=> Ampicillin+ Colistin IV + Flagyl IV s/p Cancidas /Vanco s/p Zosyn + Levaquin IV + Bactrim IV s/p Colistin INH Vanco IV #8 -> DC 01/19 Bactrim po (RX per his HemeOnc)-> dc 01/15 ID PLAN Yesterday I was asked by Dr. Jordan to give DC home IV ABX recommendations for possible DC today -- patient with MDRO (+)BCx sensitive to Colistin IV w/ multiple GNR pathogens in recently debrided wounds. * Today, there is concern from primary team that he is not ready for DC home today due to Colistin not available or not approved for HH IV and patient still on Dilaudid, with mobility issues not optimized. 1. Continue Colistin 150mg Q12 hrs until last day 02/16/17 2. Let's taper IV ABX to PO and see how he tolerates * DC Ampicillin/Flagy IV * Start Augmentin 875mg PO Q12 unitl last date 02/20/17 3. Anticipate DC home on PO ABX above after he completes Colistin IV on 02/16/17 4. Encourage mobility & taper Opioids per primary care . . . Problems: Consultation Date/Type/Reason Admit Date/Time Jan 09, 2017 at 19:08 Initial Consult Date 01/10/17 Type of Consultation: ID Referring Provider: YAO RAHMAN Exam/Review of Systems Vital Signs Vitals Vital Signs Date Time Temp Pulse Resp B/P Pulse Ox O2 Delivery O2 Flow Rate FiO2 02/13/17 12:13 98.6 89 18 121/57 98 02/13/17 08:30 Nasal Cannula 2.0 Intake and Output 02/12/17 02/12/17 02/13/17 15:00 23:00 07:00 Intake Total 100 ml 1320 ml 1050 ml Output Total 1050 ml 900 ml Balance 100 ml 270 ml 150 ml Results Result Diagram: 02/13/17 0604 02/12/17 1430 Results 24 hrs Laboratory Tests Test 02/12/17 14:30 02/13/17 06:04 Sodium Level 131 L Potassium Level 4.0 Chloride Level 98 Carbon Dioxide Level 25 Anion Gap 12 Blood Urea Nitrogen 10 Creatinine 0.83 Glucose Level 98 Calcium Level 9.6 White Blood Count 5.0 Red Blood Count 2.91 L Hemoglobin 8.4 L Hematocrit 26.5 L Mean Corpuscular Volume 91.1 Mean Corpuscular Hemoglobin 28.9 L Mean Corpuscular Hemoglobin Concent 31.7 L Red Cell Distribution Width 18.2 H Platelet Count 160 # Mean Platelet Volume 10.4 Neutrophils % 80.9 H Lymphocytes % 3.8 L Monocytes % 11.9 H Eosinophils % 1.0 Basophils % 0.2 Nucleated Red Blood Cells % 0.0 Neutrophils # (Manual) 4.0 Lymphocytes # 0.2 L Monocytes # 0.6 Eosinophils # 0.1 Basophils # 0.0 Nucleated Red Blood Cells # 0.0 Medications Medications Current Medications Sodium Biphosphate/ Sodium Phosphate (Fleet Enema) 133 ml DAILY PRN MS CONSTIPATION; Start 01/09/17 at 19:30 Nitroglycerin (Nitroglycerin (Sl Tab) 0.4 Mg) 1 tab Q5M PRN SL ANGINA; Start at 19:30 [facility] This patient aranda... PRN PRN XX WOUND CARE; Start 01/10/17 at 03:30 Ondansetron HCl (Zofran Inj) 4 mg Q6 IV Last administered on 02/13/17 11:55; Admin Dose 4 MG; Start 01/10/17 at 15:30 IV Flush (NS 10 ml) 10 ml PRN PRN IV IV PROTOCOL; Start 01/10/17 at 20:30 Prednisone 10 mg 10 mg DAILY PO Last administered on 02/13/17 08:42; Admin Dose 10 MG; Start 01/15/17 at 09:00 Hydromorphone HCl/ Dextrose (Dilaudid/D5W) 50 ml @ 2 mls/hr TITRATE IV Last administered on 02/13/17 06:17; Admin Dose 2 MLS/HR; Start 01/23/17 at 16:30 Ergocalciferol (Drisdol) 50,000 unit We@09 PO Last administered on 02/08/17 08 :12; Admin Dose 50,000 UNIT; Start 01/25/17 at 09:00 Calcium Carbonate (Oyster Shell Calcium) 1.25 gm BID PO Last administered on 08:40; Admin Dose 1.25 GM; Start 01/24/17 at 21:00 Pantoprazole (Protonix Tab) 40 mg DAILY@06 PO Last administered on 02/13/17 05: 36; Admin Dose 40 MG; Start 01/26/17 at 06:00 Hydromorphone HCl (Dilaudid) 1 mg Q2 PRN IV PAIN Last administered on 02/13/17 08:41; Admin Dose 1 MG; Start 01/25/17 at 21:00 Atenolol (Tenormin) 25 mg BID PO Last administered on 02/13/17 08:40; Admin Dose 25 MG; Start 01/30/17 at 12:00 Enoxaparin Sodium 30 mg 30 mg DAILY SC Last administered on 02/13/17 08:42; Admin Dose 30 MG; Start 02/01/17 at 16:00 Ampicillin 50 ml @ 100 mls/hr Q8 IVPB Last administered on 02/13/17 05:35; Admin Dose 100 MLS/HR; Start 02/03/17 at 22:00 Metronidazole (Flagyl 500 Mg (Pmx)) 100 ml @ 100 mls/hr Q8 IVPB Last administered on 02/13/17 05:35; Admin Dose 100 MLS/HR; Start 02/03/17 at 22:00 Lactobacillus Acidophilus 1 each 1 each BID PO Last administered on 02/13/17 08 :40; Admin Dose 1 EACH; Start 02/03/17 at 21:00 Colistimethate Sodium/Sodium Chloride (Coly-Mycin/NS) 100 ml @ 200 mls/hr Q12 IVPB Last administered on 02/13/17 08:45; Admin Dose 200 MLS/HR; Start at 21:00 Bisacodyl (Dulcolax Supp) 10 mg BID PRN MS CONSTIPATION; Start 02/04/17 at 19: 30 Sodium Biphosphate/ Sodium Phosphate (Fleet Enema) 133 ml BID PRN MS CONSTIPATION; Start 02/04/17 at 19:30 Sodium Biphosphate/ Sodium Phosphate (Fleet Enema) 133 ml BID PRN MS CONSTIPATION; Start 02/09/17 at 10:00 Sodium Biphosphate/ Sodium Phosphate (Fleet Enema) 133 ml BID MS ; Start at 09:00; Status UNV Potassium Chloride (Klor-Con 20) 40 meq DAILY PO Last administered on 02/13/17 08:40; Admin Dose 40 MEQ; Start 02/10/17 at 09:00 Docusate Sodium (Colace) 100 mg BID PO Last administered on 02/13/17 08:40; Admin Dose 100 MG; Start 02/12/17 at 09:00 Magnesium Hydroxide (Milk Of Mag) 30 ml DAILY PO Last administered on 02/13/17 08:40; Admin Dose 30 ML; Start 02/12/17 at 09:00 AARON BELLAMY NP Feb 13, 2017 12:59
--- NOTE | 2017-02-13 15:52 | CONS ---
Date/Time of Note Date/Time of Note DATE: 02/13/17 TIME: 15:50 Consultation Date/Type/Reason Admit Date/Time Jan 09, 2017 at 19:08 Initial Consult Date 01/10/17 Type of Consultation: Pain management Referring Provider: YAO RAHMAN 24 HR Interval Summary Free Text/Dictation Postdated progress note for February 10, 2017 Continue current pain management IV Dilaudid 3 mg continuous and 2 mg every 2 hours as needed breakthrough pain no check she has no side effects associated with current pain control medication. No nausea vomiting chest pain shortness of breath dizziness diplopia disorientation Exam/Review of Systems Vital Signs Vitals Vital Signs Date Time Temp Pulse Resp B/P Pulse Ox O2 Delivery O2 Flow Rate FiO2 02/13/17 12:13 98.6 89 18 121/57 98 02/13/17 08:30 Nasal Cannula 2.0 Intake and Output 02/12/17 02/12/17 02/13/17 15:00 23:00 07:00 Intake Total 100 ml 1320 ml 1050 ml Output Total 1050 ml 900 ml Balance 100 ml 270 ml 150 ml Results Result Diagram: 02/13/17 0604 02/12/17 1430 Results 24 hrs Laboratory Tests Test 02/13/17 06:04 White Blood Count 5.0 Red Blood Count 2.91 L Hemoglobin 8.4 L Hematocrit 26.5 L Mean Corpuscular Volume 91.1 Mean Corpuscular Hemoglobin 28.9 L Mean Corpuscular Hemoglobin Concent 31.7 L Red Cell Distribution Width 18.2 H Platelet Count 160 # Mean Platelet Volume 10.4 Neutrophils % 80.9 H Lymphocytes % 3.8 L Monocytes % 11.9 H Eosinophils % 1.0 Basophils % 0.2 Nucleated Red Blood Cells % 0.0 Neutrophils # (Manual) 4.0 Lymphocytes # 0.2 L Monocytes # 0.6 Eosinophils # 0.1 Basophils # 0.0 Nucleated Red Blood Cells # 0.0 Medications Medications Current Medications Sodium Biphosphate/ Sodium Phosphate (Fleet Enema) [address] CONSTIPATION; Start 01/09/17 at 19:30 Nitroglycerin (Nitroglycerin (Sl Tab) 0.4 Mg) 1 tab Q5M PRN SL ANGINA; Start at 19:30 [facility] This patient aranda... PRN PRN XX WOUND CARE; Start 01/10/17 at 03:30 Ondansetron HCl (Zofran Inj) 4 mg Q6 IV Last administered on 02/13/17 11:55; Admin Dose 4 MG; Start 01/10/17 at 15:30 IV Flush (NS 10 ml) 10 ml PRN PRN IV IV PROTOCOL; Start 01/10/17 at 20:30 Prednisone 10 mg 10 mg DAILY PO Last administered on 02/13/17 08:42; Admin Dose 10 MG; Start 01/15/17 at 09:00 Hydromorphone HCl/ Dextrose (Dilaudid/D5W) 50 ml @ 2 mls/hr TITRATE IV Last administered on 02/13/17 06:17; Admin Dose 2 MLS/HR; Start 01/23/17 at 16:30 Ergocalciferol (Drisdol) 50,000 unit We@09 PO Last administered on 02/08/17 08 :12; Admin Dose 50,000 UNIT; Start 01/25/17 at 09:00 Calcium Carbonate (Oyster Shell Calcium) 1.25 gm BID PO Last administered on 08:40; Admin Dose 1.25 GM; Start 01/24/17 at 21:00 Pantoprazole (Protonix Tab) 40 mg DAILY@06 PO Last administered on 02/13/17 05: 36; Admin Dose 40 MG; Start 01/26/17 at 06:00 Hydromorphone HCl (Dilaudid) 1 mg Q2 PRN IV PAIN Last administered on 02/13/17 08:41; Admin Dose 1 MG; Start 01/25/17 at 21:00 Atenolol (Tenormin) 25 mg BID PO Last administered on 02/13/17 08:40; Admin Dose 25 MG; Start 01/30/17 at 12:00 Enoxaparin Sodium (Lovenox) 30 mg DAILY SC Last administered on 02/13/17 08:42 ; Admin Dose 30 MG; Start 02/01/17 at 16:00 Lactobacillus Acidophilus 1 each 1 each BID PO Last administered on 02/13/17 08 :40; Admin Dose 1 EACH; Start 02/03/17 at 21:00 Colistimethate Sodium/Sodium Chloride (Coly-Mycin/NS) 100 ml @ 200 mls/hr Q12 IVPB Last administered on 02/13/17 08:45; Admin Dose 200 MLS/HR; Start at 21:00 Bisacodyl (Dulcolax Supp) [address] CONSTIPATION; Start 02/04/17 at 19: 30 Sodium Biphosphate/ Sodium Phosphate (Fleet Enema) [address] CONSTIPATION; Start 02/04/17 at 19:30 Sodium Biphosphate/ Sodium Phosphate (Fleet Enema) [address] CONSTIPATION; Start 02/09/17 at 10:00 Sodium Biphosphate/ Sodium Phosphate (Fleet Enema) [address] ; Start at 09:00; Status UNV Potassium Chloride (Klor-Con 20) 40 meq DAILY PO Last administered on 02/13/17 08:40; Admin Dose 40 MEQ; Start 02/10/17 at 09:00 Docusate Sodium (Colace) 100 mg BID PO Last administered on 02/13/17 08:40; Admin Dose 100 MG; Start 02/12/17 at 09:00 Magnesium Hydroxide (Milk Of Mag) 30 ml DAILY PO Last administered on 02/13/17 08:40; Admin Dose 30 ML; Start 02/12/17 at 09:00 Amoxicillin/ Clavulanate Potassium (Augmentin) 875 mg BID PO ; Start 02/13/17 at 21:00; Stop 02/20/17 at 23:00 SHELBY WHITE Feb 13, 2017 15:51
--- NOTE | 2017-02-13 15:54 | CONS ---
Date/Time of Note Date/Time of Note DATE: 02/13/17 TIME: 15:52 Assessment/Plan Assessment/Plan Additional Assessment/Plan Date of progress note for visit February 11 This is a 31-year-old gentleman who has a history of anaplastic lymphoma last chemotherapy received was approximately 1 month ago. Approximately 2 weeks prior to this hospitalization he developed acute onset of abdominal discomfort. He describes his pain as a gnawing discomfort which is primarily periumbilical with radiation since his right flank. States she has had nausea vomiting fevers up to 102 prior to hospitalization. Denies regular use denies chest discomfort denies frequency burning when he urinates bright red blood per rectum or melanotic stools, or coffee grounds emesis. He has been taking only [place] for control his abdominal discomfort. Rating of his pain is 10/10 not alleviated with current pain control medication, there is no past medical history of excessive use of opioid alcohol or other addiction disorders. He denies any side effects with current pain control medications just not alleviating his degree of pain. Evaluation of the abdominal viscera is limited without intravenous contrast. 1. No acute abdominal pathology. 2. Multiple small consolidations within the right lower lobe. Underlying nodules are not excluded. Dedicated CT of the chest as well as follow-up imaging is recommended to document resolution as clinically warranted. 3. Subcutaneous density within the anterior abdominal wall which may represent a subcutaneous hematoma versus other subcutaneous lesion. There are also more extensive subcutaneous densities along the left flank and back subcutaneous/ skin. Direct inspection may be performed as clinically warranted. Continue current pain control Probable discharge within the next week will begi to taper from control to orals anticipate patient will need have methadone and breakthrough Dilaudid as needed Consultation Date/Type/Reason Admit Date/Time Jan 09, 2017 at 19:08 Initial Consult Date 01/10/17 Type of Consultation: Pain management Referring Provider: YAO RAHMAN Exam/Review of Systems Vital Signs Vitals Vital Signs Date Time Temp Pulse Resp B/P Pulse Ox O2 Delivery O2 Flow Rate FiO2 02/13/17 12:13 98.6 89 18 121/57 98 02/13/17 08:30 Nasal Cannula 2.0 Intake and Output 02/12/17 02/12/17 02/13/17 15:00 23:00 07:00 Intake Total 100 ml 1320 ml 1050 ml Output Total 1050 ml 900 ml Balance 100 ml 270 ml 150 ml Exam Respiratory: clear to auscultation, normal air movement Cardiovascular: nl pulses, regular rate and rhythm Results Result Diagram: 02/13/17 0604 02/12/17 1430 Results 24 hrs Laboratory Tests Test 02/13/17 06:04 White Blood Count 5.0 Red Blood Count 2.91 L Hemoglobin 8.4 L Hematocrit 26.5 L Mean Corpuscular Volume 91.1 Mean Corpuscular Hemoglobin 28.9 L Mean Corpuscular Hemoglobin Concent 31.7 L Red Cell Distribution Width 18.2 H Platelet Count 160 # Mean Platelet Volume 10.4 Neutrophils % 80.9 H Lymphocytes % 3.8 L Monocytes % 11.9 H Eosinophils % 1.0 Basophils % 0.2 Nucleated Red Blood Cells % 0.0 Neutrophils # (Manual) 4.0 Lymphocytes # 0.2 L Monocytes # 0.6 Eosinophils # 0.1 Basophils # 0.0 Nucleated Red Blood Cells # 0.0 Medications Medications Current Medications Sodium Biphosphate/ Sodium Phosphate (Fleet Enema) 133 ml DAILY PRN [place] CONSTIPATION; Start 01/09/17 at 19:30 Nitroglycerin (Nitroglycerin (Sl Tab) 0.4 Mg) 1 tab Q5M PRN SL ANGINA; Start at 19:30 Miscellaneous Information (Pending [facility] Order For Wound Care) This patient aranda... PRN PRN XX WOUND CARE; Start 01/10/17 at 03:30 Ondansetron HCl (Zofran Inj) 4 mg Q6 IV Last administered on 02/13/17 11:55; Admin Dose 4 MG; Start 01/10/17 at 15:30 IV Flush (NS 10 ml) 10 ml PRN PRN IV IV PROTOCOL; Start 01/10/17 at 20:30 Prednisone 10 mg 10 mg DAILY PO Last administered on 02/13/17 08:42; Admin Dose 10 MG; Start 01/15/17 at 09:00 Hydromorphone HCl/ Dextrose (Dilaudid/D5W) 50 ml @ 2 mls/hr TITRATE IV Last administered on 02/13/17 06:17; Admin Dose 2 MLS/HR; Start 01/23/17 at 16:30 Ergocalciferol (Drisdol) 50,000 unit We@09 PO Last administered on 02/08/17 08 :12; Admin Dose 50,000 UNIT; Start 01/25/17 at 09:00 Calcium Carbonate (Oyster Shell Calcium) 1.25 gm BID PO Last administered on 08:40; Admin Dose 1.25 GM; Start 01/24/17 at 21:00 Pantoprazole (Protonix Tab) 40 mg DAILY@06 PO Last administered on 02/13/17 05: 36; Admin Dose 40 MG; Start 01/26/17 at 06:00 Hydromorphone HCl (Dilaudid) 1 mg Q2 PRN IV PAIN Last administered on 02/13/17 08:41; Admin Dose 1 MG; Start 01/25/17 at 21:00 Atenolol (Tenormin) 25 mg BID PO Last administered on 02/13/17 08:40; Admin Dose 25 MG; Start 01/30/17 at 12:00 Enoxaparin Sodium (Lovenox) 30 mg DAILY SC Last administered on 02/13/17 08:42 ; Admin Dose 30 MG; Start 02/01/17 at 16:00 Lactobacillus Acidophilus 1 each 1 each BID PO Last administered on 02/13/17 08 :40; Admin Dose 1 EACH; Start 02/03/17 at 21:00 Colistimethate Sodium/Sodium Chloride (Coly-Mycin/NS) 100 ml @ 200 mls/hr Q12 IVPB Last administered on 02/13/17 08:45; Admin Dose 200 MLS/HR; Start at 21:00 Bisacodyl (Dulcolax Supp) 10 mg BID PRN [place] CONSTIPATION; Start 02/04/17 at 19: 30 Sodium Biphosphate/ Sodium Phosphate (Fleet Enema) 133 ml BID PRN [place] CONSTIPATION; Start 02/04/17 at 19:30 Sodium Biphosphate/ Sodium Phosphate (Fleet Enema) 133 ml BID PRN [place] CONSTIPATION; Start 02/09/17 at 10:00 Sodium Biphosphate/ Sodium Phosphate (Fleet Enema) 133 ml BID [place] ; Start at 09:00; Status UNV Potassium Chloride (Klor-Con 20) 40 meq DAILY PO Last administered on 02/13/17 08:40; Admin Dose 40 MEQ; Start 02/10/17 at 09:00 Docusate Sodium (Colace) 100 mg BID PO Last administered on 02/13/17 08:40; Admin Dose 100 MG; Start 02/12/17 at 09:00 Magnesium Hydroxide (Milk Of Mag) 30 ml DAILY PO Last administered on 02/13/17 08:40; Admin Dose 30 ML; Start 02/12/17 at 09:00 Amoxicillin/ Clavulanate Potassium (Augmentin) 875 mg BID PO ; Start 02/13/17 at 21:00; Stop 02/20/17 at 23:00 SHELBY WHITE Feb 13, 2017 15:54
--- NOTE | 2017-02-13 15:56 | CONS ---
Date/Time of Note Date/Time of Note DATE: 02/13/17 TIME: 15:54 Assessment/Plan Assessment/Plan Additional Assessment/Plan This is a 31-year-old gentleman who has a history of anaplastic lymphoma last chemotherapy received was approximately 1 month ago. Approximately 2 weeks prior to this hospitalization he developed acute onset of abdominal discomfort. He describes his pain as a gnawing discomfort which is primarily periumbilical with radiation since his right flank. States she has had nausea vomiting fevers up to 102 prior to hospitalization. Denies regular use denies chest discomfort denies frequency burning when he urinates bright red blood per rectum or melanotic stools, or coffee grounds emesis. He has been taking only [place] for control his abdominal discomfort. Rating of his pain is 10/10 not alleviated with current pain control medication, there is no past medical history of excessive use of opioid alcohol or other addiction disorders. He denies any side effects with current pain control medications just not alleviating his degree of pain. Discussed plan of care with Jacobo yulia. We will switch him from IV Dilaudid to a combination of down and Dilaudid p.o. patient will probably need a fairly high dose based on his size, level of pain and tolerance to opioids. Anticipate 2-3 days of transition. Consultation Date/Type/Reason Admit Date/Time Jan 09, 2017 at 19:08 Initial Consult Date 01/10/17 Type of Consultation: Pain management Referring Provider: YAO RAHMAN Exam/Review of Systems Vital Signs Vitals Vital Signs Date Time Temp Pulse Resp B/P Pulse Ox O2 Delivery O2 Flow Rate FiO2 02/13/17 12:13 98.6 89 18 121/57 98 02/13/17 08:30 Nasal Cannula 2.0 Intake and Output 02/12/17 02/12/17 02/13/17 15:00 23:00 07:00 Intake Total 100 ml 1320 ml 1050 ml Output Total 1050 ml 900 ml Balance 100 ml 270 ml 150 ml Exam Constitutional: alert, oriented, well developed, No distress, No frail, No non-verbal, No obese, No other Neurological: [employer] II-XII intact, nl mental status, nl speech, nl strength, No DTR's symmetric, No confused, No focal weakness, No lethargic, No numbness , No other, No reflexes, No unresponsive Results Result Diagram: 02/13/17 0604 02/12/17 1430 Results 24 hrs Laboratory Tests Test 02/13/17 06:04 White Blood Count 5.0 Red Blood Count 2.91 L Hemoglobin 8.4 L Hematocrit 26.5 L Mean Corpuscular Volume 91.1 Mean Corpuscular Hemoglobin 28.9 L Mean Corpuscular Hemoglobin Concent 31.7 L Red Cell Distribution Width 18.2 H Platelet Count 160 # Mean Platelet Volume 10.4 Neutrophils % 80.9 H Lymphocytes % 3.8 L Monocytes % 11.9 H Eosinophils % 1.0 Basophils % 0.2 Nucleated Red Blood Cells % 0.0 Neutrophils # (Manual) 4.0 Lymphocytes # 0.2 L Monocytes # 0.6 Eosinophils # 0.1 Basophils # 0.0 Nucleated Red Blood Cells # 0.0 Medications Medications Current Medications Sodium Biphosphate/ Sodium Phosphate (Fleet Enema) 133 ml DAILY PRN [place] CONSTIPATION; Start 01/09/17 at 19:30 Nitroglycerin (Nitroglycerin (Sl Tab) 0.4 Mg) 1 tab Q5M PRN SL ANGINA; Start at 19:30 Miscellaneous Information [facility]) This patient aranda... PRN PRN XX WOUND CARE; Start 01/10/17 at 03:30 Ondansetron HCl (Zofran Inj) 4 mg Q6 IV Last administered on 02/13/17 11:55; Admin Dose 4 MG; Start 01/10/17 at 15:30 IV Flush (NS 10 ml) 10 ml PRN PRN IV IV PROTOCOL; Start 01/10/17 at 20:30 Prednisone 10 mg 10 mg DAILY PO Last administered on 02/13/17 08:42; Admin Dose 10 MG; Start 01/15/17 at 09:00 Hydromorphone HCl/ Dextrose (Dilaudid/D5W) 50 ml @ 2 mls/hr TITRATE IV Last administered on 02/13/17 06:17; Admin Dose 2 MLS/HR; Start 01/23/17 at 16:30 Ergocalciferol (Drisdol) 50,000 unit We@09 PO Last administered on 02/08/17 08 :12; Admin Dose 50,000 UNIT; Start 01/25/17 at 09:00 Calcium Carbonate (Oyster Shell Calcium) 1.25 gm BID PO Last administered on 08:40; Admin Dose 1.25 GM; Start 01/24/17 at 21:00 Pantoprazole (Protonix Tab) 40 mg DAILY@06 PO Last administered on 02/13/17 05: 36; Admin Dose 40 MG; Start 01/26/17 at 06:00 Hydromorphone HCl (Dilaudid) 1 mg Q2 PRN IV PAIN Last administered on 02/13/17 08:41; Admin Dose 1 MG; Start 01/25/17 at 21:00 Atenolol (Tenormin) 25 mg BID PO Last administered on 02/13/17 08:40; Admin Dose 25 MG; Start 01/30/17 at 12:00 Enoxaparin Sodium (Lovenox) 30 mg DAILY SC Last administered on 02/13/17 08:42 ; Admin Dose 30 MG; Start 02/01/17 at 16:00 Lactobacillus Acidophilus 1 each 1 each BID PO Last administered on 02/13/17 08 :40; Admin Dose 1 EACH; Start 02/03/17 at 21:00 Colistimethate Sodium/Sodium Chloride (Coly-Mycin/NS) 100 ml @ 200 mls/hr Q12 IVPB Last administered on 02/13/17 08:45; Admin Dose 200 MLS/HR; Start at 21:00 Bisacodyl (Dulcolax Supp) 10 mg BID PRN [place] CONSTIPATION; Start 02/04/17 at 19: 30 Sodium Biphosphate/ Sodium Phosphate (Fleet Enema) 133 ml BID PRN [place] CONSTIPATION; Start 02/04/17 at 19:30 Sodium Biphosphate/ Sodium Phosphate (Fleet Enema) 133 ml BID PRN [place] CONSTIPATION; Start 02/09/17 at 10:00 Sodium Biphosphate/ Sodium Phosphate (Fleet Enema) 133 ml BID [place] ; Start at 09:00; Status UNV Potassium Chloride (Klor-Con 20) 40 meq DAILY PO Last administered on 02/13/17 08:40; Admin Dose 40 MEQ; Start 02/10/17 at 09:00 Docusate Sodium (Colace) 100 mg BID PO Last administered on 02/13/17 08:40; Admin Dose 100 MG; Start 02/12/17 at 09:00 Magnesium Hydroxide (Milk Of Mag) 30 ml DAILY PO Last administered on 02/13/17t 08:40; Admin Dose 30 ML; Start 02/12/17 at 09:00 Amoxicillin/ Clavulanate Potassium (Augmentin) 875 mg BID PO ; Start 02/13/17 at 21:00; Stop 02/20/17 at 23:00 SHELBY WHITE Feb 13, 2017 15:56
[2017-02-13] MEDS ORDERED: METHADONE 10 MG TAB PO PRN (16:00)
--- NOTE | 2017-02-13 16:20 | CONS ---
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 His last chemo was a month ago and hadn't had since due to experiencing similar presenting symptoms. record from pt's oncologist Kain Wisdom - P Left flank mass, CT-guided core needle biopsies with touch imprints: Completely necrotic tissue, insufficient for pathologic evaluation. PER PT REPORT- reportedly scheduled for change in therapy due to what appears to be lack of adequate response CT ABD/PEL/CHEST:(+) multiple areas of nodules likely lymphoma, PT WANT TO GO HOME AND FAMILY ALREADY CALLED HIS PRIMARY ONCOLOGIST TO ARRANGE THE APPT OJSSELIN POST DC OK TO DC HOME IF CLEARED BY PRIMARY AND ALL CONSULTANTS WITH F-UP BY DR WISDOM LEUKOPENIA IN PT WITH HNL POST CHEMO AND WITH SEPTIC PICTURE MONITOR BLOOD COUNT CLOSELY POST NEUPOGEN WBC- FLUCTUATING IMPROVED ON NEUPOGEN X 2 DC NEUPOGEN PANCYTOPENIA POST CHEMO CONT TO MONITOR PRBC NEEDED PAIN DR WHITE ON THE CASE s/p Sepsis w/worsening lactic acidosis 2/2 PNA + Left flank/hip/leg decub Resolving HCAP => CT ABD/PEL/CHEST: (+) PNA * 01/24 RESPIRATORY CULTURE Final 3+ KLEB PNEUMONIAE CARBAPENEMASE ID W-UP pancreatitis. Abd Pain with N/V: 2/2 known lymphoma - pain mgmt - Anti-emetics Hyponatremia and Hypokalemia: 2/2 vomiting - NS IVF - replete K+ as needed Presumed RAMU: likely pre-renal 2/2 vomiting - cont IVF for now Problems: Consultation Date/Type/Reason Admit Date/Time Jan 09, 2017 at 19:08 Initial Consult Date 01/10/17 Type of Consultation: [facility] Referring Provider: YAO RAHMAN 24 HR Interval Summary Free Text/Dictation ALL NOTED + PAIN Exam/Review of Systems Vital Signs Vitals Vital Signs Date Time Temp Pulse Resp B/P Pulse Ox O2 Delivery O2 Flow Rate FiO2 02/13/17 15:52 98.0 75 18 109/59 98 02/13/17 08:30 Nasal Cannula 2.0 Intake and Output 02/12/17 02/12/17 02/13/17 15:00 23:00 07:00 Intake Total 100 ml 1320 ml 1050 ml Output Total 1050 ml 900 ml Balance 100 ml 270 ml 150 ml Exam GENERAL: This is a well-developed, ill-appearing, middle-aged, man, who is awake, in no distress. HEENT: Head atraumatic, normocephalic. Sclerae anicteric. Buccal mucosa pink and dry. NECK: Supple. CHEST: Rise symmetrical. Breath sounds diminished at the bases. HEART: S1, S2. ABDOMEN: Soft, bowel sounds present. EXTREMITIES: Without cyanosis. + WOUNDS Results Result Diagram: 02/13/17 0604 02/12/17 1430 Results 24 hrs Laboratory Tests Test 02/13/17 06:04 White Blood Count 5.0 Red Blood Count 2.91 L Hemoglobin 8.4 L Hematocrit 26.5 L Mean Corpuscular Volume 91.1 Mean Corpuscular Hemoglobin 28.9 L Mean Corpuscular Hemoglobin Concent 31.7 L Red Cell Distribution Width 18.2 H Platelet Count 160 # Mean Platelet Volume 10.4 Neutrophils % 80.9 H Lymphocytes % 3.8 L Monocytes % 11.9 H Eosinophils % 1.0 Basophils % 0.2 Nucleated Red Blood Cells % 0.0 Neutrophils # (Manual) 4.0 Lymphocytes # 0.2 L Monocytes # 0.6 Eosinophils # 0.1 Basophils # 0.0 Nucleated Red Blood Cells # 0.0 Medications Medications Current Medications Sodium Biphosphate/ Sodium Phosphate (Fleet Enema) 133 ml DAILY PRN [place] CONSTIPATION; Start 01/09/17 at 19:30 Nitroglycerin (Nitroglycerin (Sl Tab) 0.4 Mg) 1 tab Q5M PRN SL ANGINA; Start at 19:30 Misc[facility] This patient aranda... PRN PRN XX WOUND CARE; Start 01/10/17 at 03:30 Ondansetron HCl (Zofran Inj) 4 mg Q6 IV Last administered on 02/13/17 11:55; Admin Dose 4 MG; Start 01/10/17 at 15:30 IV Flush (NS 10 ml) 10 ml PRN PRN IV IV PROTOCOL; Start 01/10/17 at 20:30 Prednisone (Prednisone) 10 mg DAILY PO Last administered on 02/13/17 08:42; Admin Dose 10 MG; Start 01/15/17 at 09:00 Ergocalciferol (Drisdol) 50,000 unit We@09 PO Last administered on 02/08/17 08 :12; Admin Dose 50,000 UNIT; Start 01/25/17 at 09:00 Calcium Carbonate (Oyster Shell Calcium) 1.25 gm BID PO Last administered on 08:40; Admin Dose 1.25 GM; Start 01/24/17 at 21:00 Pantoprazole (Protonix Tab) 40 mg DAILY@06 PO Last administered on 02/13/17 05: 36; Admin Dose 40 MG; Start 01/26/17 at 06:00 Hydromorphone HCl (Dilaudid) 1 mg Q2 PRN IV PAIN Last administered on 02/13/17 08:41; Admin Dose 1 MG; Start 01/25/17 at 21:00 Atenolol (Tenormin) 25 mg BID PO Last administered on 02/13/17 08:40; Admin Dose 25 MG; Start 01/30/17 at 12:00 Enoxaparin Sodium (Lovenox) 30 mg DAILY SC Last administered on 02/13/17 08:42 ; Admin Dose 30 MG; Start 02/01/17 at 16:00 Lactobacillus Acidophilus 1 each 1 each BID PO Last administered on 02/13/17 08 :40; Admin Dose 1 EACH; Start 02/03/17 at 21:00 Colistimethate Sodium/Sodium Chloride (Coly-Mycin/NS) 100 ml @ 200 mls/hr Q12 IVPB Last administered on 02/13/17 08:45; Admin Dose 200 MLS/HR; Start at 21:00 Bisacodyl (Dulcolax Supp) 10 mg BID PRN [place] CONSTIPATION; Start 02/04/17 at 19: 30 Sodium Biphosphate/ Sodium Phosphate (Fleet Enema) 133 ml BID PRN [place] CONSTIPATION; Start 02/04/17 at 19:30 Sodium Biphosphate/ Sodium Phosphate (Fleet Enema) 133 ml BID PRN [place] CONSTIPATION; Start 02/09/17 at 10:00 Sodium Biphosphate/ Sodium Phosphate (Fleet Enema) 133 ml BID [place] ; Start at 09:00; Status UNV Potassium Chloride (Klor-Con 20) 40 meq DAILY PO Last administered on 02/13/17 08:40; Admin Dose 40 MEQ; Start 02/10/17 at 09:00 Docusate Sodium (Colace) 100 mg BID PO Last administered on 02/13/17 08:40; Admin Dose 100 MG; Start 02/12/17 at 09:00 Magnesium Hydroxide (Milk Of Mag) 30 ml DAILY PO Last administered on 02/13/17 08:40; Admin Dose 30 ML; Start 02/12/17 at 09:00 Amoxicillin/ Clavulanate Potassium (Augmentin) 875 mg BID PO ; Start 02/13/17 at 21:00; Stop 02/20/17 at 23:00 Methadone HCl (Methadone) 10 mg Q6H PRN PO PAIN; Start 02/13/17 at 16:00 MOIRA BIRMINGHAM MD Feb 13, 2017 16:20
[2017-02-13] MEDS: AMOXICILLIN/CLAV 875 MG TAB PO SCH (20:30)
[2017-02-13] MEDS: LEVALBUTEROL (NEB) 0.63 MG/3 ML AMP HHN PRN (21:09)
[2017-02-14] VITALS (14 sets, daily range): BP systolic 102–121; BP diastolic 55–74; PULSE 84–125; RESP 18–20
[2017-02-14] MEDS: HYDROmorphONE 1 MG/ML SYG IV PRN ×8 (00:53→22:29)
[2017-02-14] MEDS: ONDANSETRON 4 MG INJ IV SCH ×4 (06:05→23:52)
[2017-02-14] MEDS: PANTOPRAZOLE (EC) 40 MG TAB PO SCH (06:05)
[2017-02-14 07:52] LABS: ABNORMAL IP MESSAGE 1; BASOPHILS % 0.2 % (0.0-2.0); EOSINOPHILS % 0.4 % (0.0-7.0); HEMATOCRIT 29.1 % (42.0-52.0); HEMOGLOBIN 9.1 g/dl (14.0-18.0); LYMPHOCYTES # 0.2 10^3/ul (0.8-2.9); LYMPHOCYTES % 2.8 % (15.0-51.0); MEAN CORPUSCULAR HEMOGLOBIN 27.8 pg (29.0-33.0); MEAN CORPUSCULAR HGB CONC 31.3 g/dl (32.0-37.0); MEAN PLATELET VOLUME 10.6 fl (7.4-10.4); MONOCYTE # 0.8 10^3/ul (0.3-0.9); MONOCYTES % 8.9 % (0.0-11.0); NEUTROPHILS % 86.6 % (39.0-77.0); PLATELET COUNT 220 10^3/UL (140-415); POSITIVE DIFF @See below; RED BLOOD COUNT 3.27 10^6/ul (4.70-6.10); RED CELL DISTRIBUTION WIDTH 18.1 % (11.5-14.5); WHITE BLOOD COUNT 8.6 10^3/ul (4.8-10.8)
[2017-02-14 08:32] LABS: ALBUMIN 3.2 g/dl (3.3-4.9); ALBUMIN/GLOBULIN RATIO 1.03; BILIRUBIN,INDIRECT 0.6 mg/dl (0-1.1); BILIRUBIN,TOTAL 0.6 mg/dl (0.2-1.3); CREATININE 0.88 mg/dl (0.61-1.24); POTASSIUM 3.2 mmol/L (3.5-5.1); TOTAL PROTEIN 6.3 g/dl (6.1-8.1)
[2017-02-14] MEDS: CALCIUM CARBONATE 1.25 GM TAB PO SCH ×2 (08:47→22:35)
[2017-02-14] MEDS: DOCUSATE SODIUM 100 MG CAP PO SCH ×2 (08:47→22:35)
[2017-02-14] MEDS: L ACIDOPHIL/B LACTIS/B LONGUM CAPSULE PO SCH ×2 (08:48→21:00)
[2017-02-14] MEDS: predniSONE 20 MG TAB PO SCH (08:48)
[2017-02-14] MEDS: MAGNESIUM HYDROXIDE 30ML CUP PO SCH (08:49)
[2017-02-14] MEDS: AMOXICILLIN/CLAV 875 MG TAB PO SCH ×2 (08:49→22:34)
[2017-02-14] MEDS: ATENOLOL 25 MG TAB PO SCH ×2 (08:49→22:35)
[2017-02-14] MEDS: POTASSIUM CHLORIDE (SR) 20 MEQ TAB PO SCH (08:49)
[2017-02-14] MEDS: COLISTIMETHATE 150 MG in SOD CHLORIDE 0.9% 100 ML IVPB SCH ×2 (08:50→21:36)
[2017-02-14] MEDS: ENOXAPARIN 30 MG/0.3 ML SYG SC SCH (09:35)
--- NOTE | 2017-02-14 11:14 | PN ---
Date/Time of Note Date/Time of Note DATE: 02/14/17 TIME: 11:07 Assessment/Plan Lines/Catheters IV Catheter Type (from Nrs): [place] in Place (from Nrs): No Assessment/Plan Assessment/Plan [facility] Progress Note Date of Service: 02/14/2017 Place of service: [facility] 5W tele Today's Assessment & Plan: Overall stable but worsens with ongoing fevers and more abdominal pain and back pain. No indication for acute surgical intervention, but the patient will need repeat CT scan of the chest abdomen and pelvis since his last images were from 12 days ago. Discussed with patient and answered all questions. With above assessment, I've recommended the followin. CT scan of chest, abdomen, and pelvis without contrast Also see below for previous plans that are applicable today: 1. Continue aggressive medical management 2. Cont diet as tolerated 3. Follow GIs recommendations 4. If it would make a difference in management, may consider percutaneous biopsy of segment 6 area of abnormality in the liver 5. Multidisciplinary tumor board presentation and discussions 6. Consideration for clinical trials once improved medically 7. LFT's, amylase and lipase checks tomorrow with labs 8. Will likely benefit from aggressive bowel regimen (some of the pain likely from constipation) 9. Percutaneous cholecystostomy drain care teachings to patient and family 10. Aggressive wound care Thank you very much for having me involved in the care of this very pleasant patient and wonderful family. If you have any questions, please feel free to contact me at [phone]. Nature of presenting problem: High severity Please note that, given the extensive number of diagnoses or management options , the extensive amount and/or complexity of data needed to be reviewed, and high risk of complications and/or morbidity or mortality, this qualifies as high complexity type of decision-making. Disclaimer: Inadvertent spelling and grammatical errors are likely due to EHR/ dictation software use and do not reflect on the quality of delivered patient care. Also, please note that the electronic time recorded on this node does not necessarily reflect the actual time of the visit. 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 HIDA scan positive 01/28/2017. Status post percutaneous cholecystostomy drain placement 02/02/2017. Comorbidities: 1. Multiple superficial wounds on the back and flank region and behind the right knee. S/P excisional debridement of multiple sites including large area over the lumbar and flank region, 40 cm x 15 cm x 1 cm, smaller area on the right flank region, 10 cm x 4 cm x 1 cm, and an area behind the right knee, approximately 9 cm x 7 cm x 1 cm with removal of 15 cm x 10 cm x 1 cm soft tissue using scissors to a depth of 1 cm to subcutaneous fat at [facility] 02/09/17 2. BMI 40.7 3. Small right pleural effusion with atelectasis and right lung base pneumonia. 4. Large B cell anaplastic lymphoma; status post chemo 1 month prior to presentation 5. Sepsis 6. Hyponatremia 7. Hypokalemia 8. Acute renal injury 9. Status post percutaneous cholecystostomy drain placement 02/02/2017 Subjective: No major events or complaints overnight other than fevers, and the patient is complaining of abdominal pain and back pain and overall is not reporting to be feeling well; no significant reported nausea or vomiting and no major diarrhea; no sob or cp; + flatus; + BM; minimal to no activity. Objective: Vitals: See below I's & O's: See below Exam: GENERAL: On exam, the patient was lying in bed and appeared to be comfortable and in no acute distress. Not very diaphoretic. ABDOMEN: Soft, minimal to no tenderness and nondistended. There are no peritoneal signs or guarding. Perc GB drain with thick green bilious output. SKIN: Skin appears to be pink and feels warm to touch. NEUROLOGIC: Patient is awake, alert, and follows commands appropriately. Labs: See below Exam/Review of Systems Vital Signs Vitals Vital Signs Date Time Temp Pulse Resp B/P Pulse Ox O2 Delivery O2 Flow Rate FiO2 02/14/17 08:30 Nasal Cannula 2.0 02/14/17 08:09 102 02/14/17 07:15 99.4 18 119/74 99 Intake and Output 02/13/17 02/13/17 02/14/17 15:00 23:00 07:00 Intake Total 200 ml 750 ml 400 ml Output Total 1400 ml 800 ml Balance 200 ml -650 ml -400 ml Results Result Diagram: 02/14/17 0714 02/14/17 0714 LENKA HERNANDEZ M.D. Feb 14, 2017 11:14
[2017-02-14] MEDS ORDERED: ONDANSETRON 4 MG INJ IV PRN (15:30)
[2017-02-14] MEDS: METHADONE 10 MG TAB PO SCH ×2 (15:53→22:36)
--- NOTE | 2017-02-14 18:18 | PN ---
DATE: 02/14/2017 SUBJECTIVE DATA: The patient is very weak today spiked a fever of 102.4. He is lying comfortably in bed. Complaining of nausea. LABORATORY AND DIAGNOSTIC DATA: WBC today 8.6, H and H 9.1 and 29.1, platelets 220, neutrophils 86.6, BUN 10, and creatinine 0.88. ANTIMICROBIALS: Augmentin and colistin IV. MICROBIOLOGY: Blood culture on February 06 grew Klebsiella pneumonia, carbapenem resistant and coag-negative Staph species. Wound culture grew Pseudomonas, Klebsiella and Enterococcus species. INDWELLINGS: The patient has right abdominal cholecystostomy tube. PHYSICAL EXAMINATION: GENERAL: This is a wasted, well-developed, middle-aged man, who is awake, in no distress. HEENT: Head atraumatic, normocephalic. Sclerae anicteric. Buccal mucosa dry. NECK: Supple. CHEST: Rise symmetrical. Breath sounds diminished at bases. HEART: S1, S2. ABDOMEN: Soft, bowel sounds present. EXTREMITIES: Without cyanosis. SKIN: With multiple wounds. ASSESSMENT: 1. Ongoing sepsis with fevers, likely multifactorial. 2. Multiple infected wounds, status post debridement. 3. Multidrug resistant bacteremia possibly secondary to infected wounds status post PICC line discontinued. 4. Acute pancreatitis. 5. Cholecystitis status post cholecystostomy tube placement. 6. 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 PLAN: 1. The patient remains clinically unchanged. 2. He spiked fever today. 3. We are going to make sure cultures were sent. 4. We will order chest x-ray in a.m. 5. Continue current antibiotics. 6. Follow recommendations of consultants. Dictated By: Felicia Hdz NP /paulette/rajendra /Document#: [id number]
--- NOTE | 2017-02-14 19:16 | PN ---
Date/Time of Note Date/Time of Note DATE: 02/14/17 TIME: 19:13 Assessment/Plan VTE Prophylaxis VTE Prophylaxis Intervention: other Lines/Catheters [facility] Saline Lock Urinary Cath still in place: No Assessment/Plan Chief Complaint/Hosp Course 1. pancreatitis on pain control with s/p Cholecystomy 2 s/p Cholecystomy 3 Hyponatremia 4 Acute renal injury resolved 5 Right pleural effusion with atelectasis and right lung base pneumonia, resolved. 6. Large B cell anaplastic lymphoma; status post chemo 1 month, leukopenia now neutropenic 7. 2 Hypoparathyroidism On Calcitrol and Caco3 8 Severe anemia 9 Morbid obesity 10 excisional debridement of multiple sites including large area over the lumbar and flank region, 40 cm x 15 cm x 1 cm, smaller area on the right flank region, 10 cm x 4 cm x 1 cm, and an area behind the right knee, approximately 9 cm x 7 cm x 1 cm with removal of 15 cm x 10 cm x 1 cm soft tissue using scissors to a depth of 1 cm to subcutaneous fat 11 hypokalemia 12 DIARRHEA+ PLAN PER ID SURGERY AND PAIN CONTROL KCL Problems: Subjective 24 Hr Interval Summary Respiratory: no complaints Cardiovascular: no complaints Gastrointestinal: diarrhea (+) Exam/Review of Systems Vital Signs Vitals Vital Signs Date Time Temp Pulse Resp B/P Pulse Ox O2 Delivery O2 Flow Rate FiO2 02/14/17 17:11 98.7 109 18 117/68 98 02/14/17 16:57 2.0 02/14/17 08:30 Nasal Cannula Intake and Output 02/13/17 02/13/17 02/14/17 15:00 23:00 07:00 Intake Total 200 ml 750 ml 400 ml Output Total 1400 ml 800 ml Balance 200 ml -650 ml -400 ml Exam Neck: supple Respiratory: clear to auscultation Cardiovascular: regular rate and rhythm Gastrointestinal: soft Musculoskeletal: nl extremities to inspection Extremities: normal pulses Skin: other (WOUND+) Results Result Diagram: 02/14/1714 02/14/1714 Results 24 hrs Laboratory Tests Test 02/14/17 07:14 White Blood Count 8.6 # Red Blood Count 3.27 L Hemoglobin 9.1 L Hematocrit 29.1 L Mean Corpuscular Volume 89.0 Mean Corpuscular Hemoglobin 27.8 L Mean Corpuscular Hemoglobin Concent 31.3 L Red Cell Distribution Width 18.1 H Platelet Count 220 # Mean Platelet Volume 10.6 H Neutrophils % 86.6 H Lymphocytes % 2.8 L Monocytes % 8.9 Eosinophils % 0.4 Basophils % 0.2 Nucleated Red Blood Cells % 0.0 Neutrophils # (Manual) 7.4 Lymphocytes # 0.2 L Monocytes # 0.8 Eosinophils # 0.0 Basophils # 0.0 Nucleated Red Blood Cells # 0.0 Sodium Level 129 L Potassium Level 3.2 L Chloride Level 94 L Carbon Dioxide Level 25 Anion Gap 13 Blood Urea Nitrogen 10 Creatinine 0.88 Glucose Level 81 Calcium Level 10.0 Total Bilirubin 0.6 Direct Bilirubin 0.00 Indirect Bilirubin 0.6 Aspartate Amino Transf (AST/SGOT) 31 Alanine Aminotransferase (ALT/SGPT) 24 Alkaline Phosphatase 164 H Total Protein 6.3 Albumin 3.2 L Globulin 3.10 Albumin/Globulin Ratio 1.03 Medications Medications Current Medications Sodium Biphosphate/ Sodium Phosphate (Fleet Enema) 133 ml DAILY PRN [place] CONSTIPATION; Start 01/09/17 at 19:30 Nitroglycerin (Nitroglycerin (Sl Tab) 0.4 Mg) 1 tab Q5M PRN SL ANGINA; Start at 19:30 Miscellaneous Information (Pending [facility] Order For Wound Care) This patient aranda... PRN PRN XX WOUND CARE; Start 01/10/17 at 03:30 Ondansetron HCl (Zofran Inj) 4 mg Q6 IV Last administered on 02/14/17 17:47; Admin Dose 4 MG; Start 01/10/17 at 15:30 IV Flush (NS 10 ml) 10 ml PRN PRN IV IV PROTOCOL; Start 01/10/17 at 20:30 Prednisone (Prednisone) 10 mg DAILY PO Last administered on 02/14/17 08:48; Admin Dose 10 MG; Start 01/15/17 at 09:00 Ergocalciferol (Drisdol) 50,000 unit We@09 PO Last administered on 02/08/17 08 :12; Admin Dose 50,000 UNIT; Start 01/25/17 at 09:00 Calcium Carbonate (Oyster Shell Calcium) 1.25 gm BID PO Last administered on 08:47; Admin Dose 1.25 GM; Start 01/24/17 at 21:00 Pantoprazole (Protonix Tab) 40 mg DAILY@06 PO Last administered on 02/14/17 06: 05; Admin Dose 40 MG; Start 01/26/17 at 06:00 Hydromorphone HCl (Dilaudid) 1 mg Q2 PRN IV PAIN Last administered on 02/14/17 17:47; Admin Dose 1 MG; Start 01/25/17 at 21:00 Atenolol (Tenormin) 25 mg BID PO Last administered on 02/14/17 08:49; Admin Dose 25 MG; Start 01/30/17 at 12:00 Enoxaparin Sodium (Lovenox) 30 mg DAILY SC Last administered on 02/14/17 09:35 ; Admin Dose 30 MG; Start 02/01/17 at 16:00 Lactobacillus Acidophilus 1 each 1 each BID PO Last administered on 02/14/17 08 :48; Admin Dose 1 EACH; Start 02/03/17 at 21:00 Colistimethate Sodium/Sodium Chloride (Coly-Mycin/NS) 100 ml @ 200 mls/hr Q12 IVPB Last administered on 02/14/17 08:50; Admin Dose 200 MLS/HR; Start at 21:00 Bisacodyl (Dulcolax Supp) 10 mg BID PRN WA CONSTIPATION; Start 02/04/17 at 19: 30 Sodium Biphosphate/ Sodium Phosphate (Fleet Enema) 133 ml BID PRN WA CONSTIPATION; Start 02/04/17 at 19:30 Sodium Biphosphate/ Sodium Phosphate (Fleet Enema) 133 ml BID PRN WA CONSTIPATION; Start 02/09/17 at 10:00 Potassium Chloride (Klor-Con 20) 40 meq DAILY PO Last administered on 02/14/17 08:49; Admin Dose 40 MEQ; Start 02/10/17 at 09:00 Docusate Sodium (Colace) 100 mg BID PO Last administered on 02/14/17 08:47; Admin Dose 100 MG; Start 02/12/17 at 09:00 Magnesium Hydroxide (Milk Of Mag) 30 ml DAILY PO Last administered on 02/14/17 08:49; Admin Dose 30 ML; Start 02/12/17 at 09:00 Amoxicillin/ Clavulanate Potassium (Augmentin) 875 mg BID PO Last administered on 02/14/17 08:49; Admin Dose 875 MG; Start 02/13/17 at 21:00; Stop 02/20/17 at 23:00 Methadone HCl (Methadone) 10 mg Q6H PO Last administered on 02/14/17 15:53; Admin Dose 10 MG; Start 02/14/17 at 16:00 Ondansetron HCl 4 mg 4 mg Q6H PRN IV NAUSEA AND/OR VOMITING; Start 02/14/17 at 15:30 Potassium Chloride (KCl 40 MEQ/250 ML NS) 250 ml @ 62.5 mls/hr ONCE ONCE IVPB ; Start 02/14/17 at 19:30; Stop 02/14/17 at 23:29; Status TAWNY FAUST MD Feb 14, 2017 19:16
[2017-02-14] MEDS ORDERED: POTASSIUM CHLORIDE 250 ML IVPB ONE (19:30)
--- NOTE | 2017-02-14 23:15 | CONS ---
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 His last chemo was a month ago and hadn't had since due to experiencing similar presenting symptoms. record from pt's oncologist Kain Wisdom - P Left flank mass, CT-guided core needle biopsies with touch imprints: Completely necrotic tissue, insufficient for pathologic evaluation. PER PT REPORT- reportedly scheduled for change in therapy due to what appears to be lack of adequate response CT ABD/PEL/CHEST:(+) multiple areas of nodules likely lymphoma, PT WANT TO GO HOME AND FAMILY ALREADY CALLED HIS PRIMARY ONCOLOGIST TO ARRANGE THE APPT JOSSELIN POST DC OK TO DC HOME IF CLEARED BY PRIMARY AND ALL CONSULTANTS WITH F-UP BY DR WISDOM LEUKOPENIA IN PT WITH HNL POST CHEMO AND WITH SEPTIC PICTURE MONITOR BLOOD COUNT CLOSELY POST NEUPOGEN WBC- FLUCTUATING IMPROVED ON NEUPOGEN X 2 DC NEUPOGEN PANCYTOPENIA POST CHEMO CONT TO MONITOR PRBC NEEDED PAIN DR WHITE ON THE CASE s/p Sepsis w/worsening lactic acidosis 2/2 PNA + Left flank/hip/leg decub Resolving HCAP => CT ABD/PEL/CHEST: (+) PNA * 01/24 RESPIRATORY CULTURE Final 3+ KLEB PNEUMONIAE CARBAPENEMASE ID W-UP pancreatitis. Abd Pain with N/V: 2/2 known lymphoma - pain mgmt - Anti-emetics Hyponatremia and Hypokalemia: 2/2 vomiting - NS IVF - replete K+ as needed Presumed RAMU: likely pre-renal 2/2 vomiting - cont IVF for now Problems: Consultation Date/Type/Reason Admit Date/Time Jan 09, 2017 at 19:08 Initial Consult Date 01/10/17 Type of Consultation: [facility] Referring Provider: YAO RAHMAN 24 HR Interval Summary Free Text/Dictation ALL NOTED NO NEW EVENTS + DIARRHEA Exam/Review of Systems Vital Signs Vitals Vital Signs Date Time Temp Pulse Resp B/P Pulse Ox O2 Delivery O2 Flow Rate FiO2 02/14/17 20:43 2.0 02/14/17 20:16 84 02/14/17 19:47 98.5 19 115/61 99 02/14/17 08:30 Nasal Cannula Intake and Output 02/13/17 02/13/17 02/14/17 14:59 22:59 06:59 Intake Total 200 ml 750 ml 400 ml Output Total 1200 ml 1000 ml Balance 200 ml -450 ml -600 ml Exam GENERAL: This is a well-developed, ill-appearing, middle-aged, man, who is awake, in no distress. HEENT: Head atraumatic, normocephalic. Sclerae anicteric. Buccal mucosa pink and dry. NECK: Supple. CHEST: Rise symmetrical. Breath sounds diminished at the bases. HEART: S1, S2. ABDOMEN: Soft, bowel sounds present. EXTREMITIES: Without cyanosis. + WOUNDS Results Result Diagram: 02/14/17 0714 02/14/17 0714 Results 24 hrs Laboratory Tests Test 02/14/17 07:14 White Blood Count 8.6 # Red Blood Count 3.27 L Hemoglobin 9.1 L Hematocrit 29.1 L Mean Corpuscular Volume 89.0 Mean Corpuscular Hemoglobin 27.8 L Mean Corpuscular Hemoglobin Concent 31.3 L Red Cell Distribution Width 18.1 H Platelet Count 220 # Mean Platelet Volume 10.6 H Neutrophils % 86.6 H Lymphocytes % 2.8 L Monocytes % 8.9 Eosinophils % 0.4 Basophils % 0.2 Nucleated Red Blood Cells % 0.0 Neutrophils # (Manual) 7.4 Lymphocytes # 0.2 L Monocytes # 0.8 Eosinophils # 0.0 Basophils # 0.0 Nucleated Red Blood Cells # 0.0 Sodium Level 129 L Potassium Level 3.2 L Chloride Level 94 L Carbon Dioxide Level 25 Anion Gap 13 Blood Urea Nitrogen 10 Creatinine 0.88 Glucose Level 81 Calcium Level 10.0 Total Bilirubin 0.6 Direct Bilirubin 0.00 Indirect Bilirubin 0.6 Aspartate Amino Transf (AST/SGOT) 31 Alanine Aminotransferase (ALT/SGPT) 24 Alkaline Phosphatase 164 H Total Protein 6.3 Albumin 3.2 L Globulin 3.10 Albumin/Globulin Ratio 1.03 Medications Medications Current Medications Sodium Biphosphate/ Sodium Phosphate (Fleet Enema) 133 ml DAILY PRN [place] CONSTIPATION; Start 01/09/17 at 19:30 Nitroglycerin (Nitroglycerin (Sl Tab) 0.4 Mg) 1 tab Q5M PRN SL ANGINA; Start at 19:30 Miscellaneous Information ([facility]) This patient aranda... PRN PRN XX WOUND CARE; Start 01/10/17 at 03:30 Ondansetron HCl (Zofran Inj) 4 mg Q6 IV Last administered on 02/14/17 17:47; Admin Dose 4 MG; Start 01/10/17 at 15:30 IV Flush (NS 10 ml) 10 ml PRN PRN IV IV PROTOCOL; Start 01/10/17 at 20:30 Prednisone (Prednisone) 10 mg DAILY PO Last administered on 02/14/17 08:48; Admin Dose 10 MG; Start 01/15/17 at 09:00 Ergocalciferol (Drisdol) 50,000 unit We@09 PO Last administered on 02/08/17 08 :12; Admin Dose 50,000 UNIT; Start 01/25/17 at 09:00 Calcium Carbonate (Oyster Shell Calcium) 1.25 gm BID PO Last administered on 22:35; Admin Dose 1.25 GM; Start 01/24/17 at 21:00 Pantoprazole (Protonix Tab) 40 mg DAILY@06 PO Last administered on 02/14/17 06: 05; Admin Dose 40 MG; Start 01/26/17 at 06:00 Hydromorphone HCl (Dilaudid) 1 mg Q2 PRN IV PAIN Last administered on 02/14/17 22:29; Admin Dose 1 MG; Start 01/25/17 at 21:00 Atenolol (Tenormin) 25 mg BID PO Last administered on 02/14/17 22:35; Admin Dose 25 MG; Start 01/30/17 at 12:00 Enoxaparin Sodium (Lovenox) 30 mg DAILY SC Last administered on 02/14/17 09:35 ; Admin Dose 30 MG; Start 02/01/17 at 16:00 Lactobacillus Acidophilus 1 each 1 each BID PO Last administered on 02/14/17 21 :00; Admin Dose 1 EACH; Start 02/03/17 at 21:00 Colistimethate Sodium/Sodium Chloride (Coly-Mycin/NS) 100 ml @ 200 mls/hr Q12 IVPB Last administered on 02/14/17 21:36; Admin Dose 200 MLS/HR; Start at 21:00 Bisacodyl (Dulcolax Supp) 10 mg BID PRN NE CONSTIPATION; Start 02/04/17 at 19: 30 Sodium Biphosphate/ Sodium Phosphate (Fleet Enema) 133 ml BID PRN NE CONSTIPATION; Start 02/04/17 at 19:30 Sodium Biphosphate/ Sodium Phosphate (Fleet Enema) 133 ml BID PRN NE CONSTIPATION; Start 02/09/17 at 10:00 Potassium Chloride (Klor-Con 20) 40 meq DAILY PO Last administered on 02/14/17 08:49; Admin Dose 40 MEQ; Start 02/10/17 at 09:00 Docusate Sodium (Colace) 100 mg BID PO Last administered on 02/14/17 22:35; Admin Dose 100 MG; Start 02/12/17 at 09:00 Magnesium Hydroxide (Milk Of Mag) 30 ml DAILY PO Last administered on 02/14/17 08:49; Admin Dose 30 ML; Start 02/12/17 at 09:00 Amoxicillin/ Clavulanate Potassium (Augmentin) 875 mg BID PO Last administered on 02/14/17 22:34; Admin Dose 875 MG; Start 02/13/17 at 21:00; Stop 02/20/17 at 23:00 Methadone HCl (Methadone) 10 mg Q6H PO Last administered on 02/14/17 22:36; Admin Dose 10 MG; Start 02/14/17 at 16:00 Ondansetron HCl 4 mg 4 mg Q6H PRN IV NAUSEA AND/OR VOMITING; Start 02/14/17 at 15:30 Potassium Chloride (KCl 40 MEQ/250 ML NS) 250 ml @ 62.5 mls/hr ONCE ONCE IVPB Last administered on 02/14/17 21:36; Admin Dose 62.5 MLS/HR; Start 02/14/17 at 19:30; Stop 02/14/17 at 23:29 MOIRA BIRMINGHAM MD Feb 14, 2017 23:15
[2017-02-15] VITALS (12 sets, daily range): BP systolic 108–125; BP diastolic 56–71; PULSE 82–96; RESP 18–19
--- NOTE | 2017-02-15 00:58 | PN ---
Date/Time of Note Date/Time of Note DATE: 02/15/17 TIME: 00:49 Assessment/Plan VTE Prophylaxis VTE Prophylaxis Intervention: LMWH Lines/Catheters IV C[facility] Saline Lock Urinary Cath still in place: No Assessment/Plan Assessment/Plan Chief Complaint/Hosp Course IMP: 1.chronic weakness (NL EF by echo this admit. Currently improved) 2.lymphoma 3.HTN 4.anemia 5.obesity 6.Hyponatremia-recurrent 7.Pancreatitis-improved 8. Fevers, recovered 9. Cholecystitis s/p drain placement Recc: -continue BB as tolerated only -Continue abx's and f/u cx data -IVF hydration -ongoing onc eval and treatment with GI and surgical follow-up Problems: Pervasive weakness and gait instability. LISSETTE DEL ANGEL MD Subjective 24 Hr Interval Summary Constitutional: other (pervasive weakness) Respiratory: shortness of breath (mild) Skin: skin lesions (multiple crater-like lesions in many parts of the body due to invasive lymphoma) Exam/Review of Systems Vital Signs Vitals Vital Signs Date Time Temp Pulse Resp B/P Pulse Ox O2 Delivery O2 Flow Rate FiO2 02/15/17 00:12 88 02/15/17 00:00 98.4 18 119/67 100 02/14/17 20:43 2.0 02/14/17 08:30 Nasal Cannula Intake and Output 02/14/17 02/14/17 02/15/17 15:00 23:00 07:00 Intake Total 100 ml 400 ml Output Total 775 ml Balance 100 ml -375 ml Results Result Diagram: 02/14/17 0714 02/14/17 0714 Results 24 hrs Laboratory Tests Test 02/14/17 07:14 White Blood Count 8.6 # Red Blood Count 3.27 L Hemoglobin 9.1 L Hematocrit 29.1 L Mean Corpuscular Volume 89.0 Mean Corpuscular Hemoglobin 27.8 L Mean Corpuscular Hemoglobin Concent 31.3 L Red Cell Distribution Width 18.1 H Platelet Count 220 # Mean Platelet Volume 10.6 H Neutrophils % 86.6 H Lymphocytes % 2.8 L Monocytes % 8.9 Eosinophils % 0.4 Basophils % 0.2 Nucleated Red Blood Cells % 0.0 Neutrophils # (Manual) 7.4 Lymphocytes # 0.2 L Monocytes # 0.8 Eosinophils # 0.0 Basophils # 0.0 Nucleated Red Blood Cells # 0.0 Sodium Level 129 L Potassium Level 3.2 L Chloride Level 94 L Carbon Dioxide Level 25 Anion Gap 13 Blood Urea Nitrogen 10 Creatinine 0.88 Glucose Level 81 Calcium Level 10.0 Total Bilirubin 0.6 Direct Bilirubin 0.00 Indirect Bilirubin 0.6 Aspartate Amino Transf (AST/SGOT) 31 Alanine Aminotransferase (ALT/SGPT) 24 Alkaline Phosphatase 164 H Total Protein 6.3 Albumin 3.2 L Globulin 3.10 Albumin/Globulin Ratio 1.03 Medications Medications Current Medications Sodium Biphosphate/ Sodium Phosphate (Fleet Enema) 133 ml DAILY PRN [place] CONSTIPATION; Start 01/09/17 at 19:30 Nitroglycerin (Nitroglycerin (Sl Tab) 0.4 Mg) 1 tab Q5M PRN SL ANGINA; Start at 19:30 Miscellaneous Information (Pending [facility] Order For Wound Care) This patient aranda... PRN PRN XX WOUND CARE; Start 01/10/17 at 03:30 Ondansetron HCl (Zofran Inj) 4 mg Q6 IV Last administered on 02/14/17 17:47; Admin Dose 4 MG; Start 01/10/17 at 15:30 IV Flush (NS 10 ml) 10 ml PRN PRN IV IV PROTOCOL; Start 01/10/17 at 20:30 Prednisone (Prednisone) 10 mg DAILY PO Last administered on 02/14/17 08:48; Admin Dose 10 MG; Start 01/15/17 at 09:00 Ergocalciferol (Drisdol) 50,000 unit We@09 PO Last administered on 02/08/17 08 :12; Admin Dose 50,000 UNIT; Start 01/25/17 at 09:00 Calcium Carbonate (Oyster Shell Calcium) 1.25 gm BID PO Last administered on 22:35; Admin Dose 1.25 GM; Start 01/24/17 at 21:00 Pantoprazole (Protonix Tab) 40 mg DAILY@06 PO Last administered on 02/14/17 06: 05; Admin Dose 40 MG; Start 01/26/17 at 06:00 Hydromorphone HCl (Dilaudid) 1 mg Q2 PRN IV PAIN Last administered on 02/14/17 22:29; Admin Dose 1 MG; Start 01/25/17 at 21:00 Atenolol (Tenormin) 25 mg BID PO Last administered on 02/14/17 22:35; Admin Dose 25 MG; Start 01/30/17 at 12:00 Enoxaparin Sodium (Lovenox) 30 mg DAILY SC Last administered on 02/14/17 09:35 ; Admin Dose 30 MG; Start 02/01/17 at 16:00 Lactobacillus Acidophilus 1 each 1 each BID PO Last administered on 02/14/17 21 :00; Admin Dose 1 EACH; Start 02/03/17 at 21:00 Colistimethate Sodium/Sodium Chloride (Coly-Mycin/NS) 100 ml @ 200 mls/hr Q12 IVPB Last administered on 02/14/17 21:36; Admin Dose 200 MLS/HR; Start at 21:00 Bisacodyl (Dulcolax Supp) 10 mg BID PRN WA CONSTIPATION; Start 02/04/17 at 19: 30 Sodium Biphosphate/ Sodium Phosphate (Fleet Enema) 133 ml BID PRN WA CONSTIPATION; Start 02/04/17 at 19:30 Sodium Biphosphate/ Sodium Phosphate (Fleet Enema) 133 ml BID PRN WA CONSTIPATION; Start 02/09/17 at 10:00 Potassium Chloride (Klor-Con 20) 40 meq DAILY PO Last administered on 02/14/17 08:49; Admin Dose 40 MEQ; Start 02/10/17 at 09:00 Docusate Sodium (Colace) 100 mg BID PO Last administered on 02/14/17 22:35; Admin Dose 100 MG; Start 02/12/17 at 09:00 Magnesium Hydroxide (Milk Of Mag) 30 ml DAILY PO Last administered on 02/14/17 08:49; Admin Dose 30 ML; Start 02/12/17 at 09:00 Amoxicillin/ Clavulanate Potassium (Augmentin) 875 mg BID PO Last administered on 02/14/17 22:34; Admin Dose 875 MG; Start 02/13/17 at 21:00; Stop 02/20/17 at 23:00 Methadone HCl (Methadone) 10 mg Q6H PO Last administered on 02/14/17 22:36; Admin Dose 10 MG; Start 02/14/17 at 16:00 Ondansetron HCl (Zofran Inj) 4 mg Q6H PRN IV NAUSEA AND/OR VOMITING; Start 02/14 at 15:30 LISSETTE DEL ANGEL MD Feb 15, 2017 00:58
[2017-02-15] MEDS: HYDROmorphONE 1 MG/ML SYG IV PRN ×6 (02:11→23:30)
[2017-02-15] MEDS: PANTOPRAZOLE (EC) 40 MG TAB PO SCH (04:50)
[2017-02-15] MEDS: METHADONE 10 MG TAB PO SCH ×4 (04:50→22:55)
[2017-02-15] MEDS: ONDANSETRON 4 MG INJ IV SCH ×3 (06:00→17:02)
[2017-02-15 07:46] LABS: ABNORMAL IP MESSAGE 1; BASOPHILS % 0.3 % (0.0-2.0); EOSINOPHILS # 0.1 10^3/ul (0.0-0.5); EOSINOPHILS % 0.8 % (0.0-7.0); HEMATOCRIT 26.4 % (42.0-52.0); HEMOGLOBIN 8.7 g/dl (14.0-18.0); LYMPHOCYTES # 0.3 10^3/ul (0.8-2.9); LYMPHOCYTES % 3.6 % (15.0-51.0); MEAN CORPUSCULAR HEMOGLOBIN 29.6 pg (29.0-33.0); MEAN CORPUSCULAR VOLUME 89.8 fl (82.0-101.0); MEAN PLATELET VOLUME 9.9 fl (7.4-10.4); MONOCYTE # 0.7 10^3/ul (0.3-0.9); MONOCYTES % 9.8 % (0.0-11.0); NEUTROPHILS % 84.3 % (39.0-77.0); PLATELET COUNT 233 10^3/UL (140-415); POSITIVE DIFF @See below; RED BLOOD COUNT 2.94 10^6/ul (4.70-6.10); RED CELL DISTRIBUTION WIDTH 18.3 % (11.5-14.5); WHITE BLOOD COUNT 7.2 10^3/ul (4.8-10.8)
[2017-02-15] MEDS: MAGNESIUM HYDROXIDE 30ML CUP PO SCH (09:00)
[2017-02-15] MEDS: DOCUSATE SODIUM 100 MG CAP PO SCH ×2 (09:00→20:46)
[2017-02-15] MEDS: ATENOLOL 25 MG TAB PO SCH ×2 (09:01→20:45)
[2017-02-15] MEDS: POTASSIUM CHLORIDE (SR) 20 MEQ TAB PO SCH (09:02)
[2017-02-15] MEDS: AMOXICILLIN/CLAV 875 MG TAB PO SCH ×2 (09:02→20:45)
[2017-02-15] MEDS: CALCIUM CARBONATE 1.25 GM TAB PO SCH ×2 (09:02→20:46)
[2017-02-15] MEDS: predniSONE 20 MG TAB PO SCH (09:03)
[2017-02-15] MEDS: ENOXAPARIN 30 MG/0.3 ML SYG SC SCH (09:08)
[2017-02-15] MEDS: COLISTIMETHATE 150 MG in SOD CHLORIDE 0.9% 100 ML IVPB SCH ×2 (09:10→20:45)
[2017-02-15] MEDS: L ACIDOPHIL/B LACTIS/B LONGUM CAPSULE PO SCH ×2 (09:30→20:45)
[2017-02-15] MEDS: ERGOCALCIFEROL 50,000 UNIT CAP PO SCH (09:30)
--- NOTE | 2017-02-15 09:41 | RADRPT ---
PROCEDURE: XR Chest. CLINICAL INDICATION: r/o pna TECHNIQUE: Single frontal view of the chest was obtained COMPARISON: Chest x-ray 02/06/2017 FINDINGS: The patient is rotated rightward. The previously seen right PICC line has been removed. The cardiomediastinal silhouette is within normal limits. There are persistent patchy ill-defined opacities throughout the right lung, not significantly wylie ed compared to prior study and likely reflecting multilobar pneumonia. No pneumothorax or pleural effusion is identified. There is no evidence of significant pulmonary vascular congestion. The osseous structures, as visualized, are unchanged. IMPRESSION: 1. Persistent diffuse right lung patchy ill-defined opacities, not significantly changed compared to prior study and likely reflecting multilobar pneumonia. 2. Interval removal of right PICC line. RPTAT: QQ Physician Jammie Date Time Electronically viewed and signed by Physician Jammie on 02/15/2017 09:41 NANCY/
--- NOTE | 2017-02-15 14:15 | CONS ---
Date/Time of Note Date/Time of Note DATE: 02/15/17 TIME: 14:10 Assessment/Plan Assessment/Plan Chief Complaint/Hosp Course SUBJECTIVE DATA: Alert, feels better, no n/v/d ANTIMICROBIALS: Augmentin, Colistin IV. MICROBIOLOGY: Blood culture on February 06 grew Klebsiella pneumonia, carbapenem resistant and coag-negative Staph species. Wound culture grew Pseudomonas, Klebsiella and Enterococcus species. INDWELLINGS: The patient has right abdominal cholecystostomy tube. PHYSICAL EXAMINATION: GENERAL: This is a wasted, well-developed, middle-aged man, who is awake, in no distress. HEENT: Head atraumatic, normocephalic. Sclerae anicteric. Buccal mucosa dry. NECK: Supple. CHEST: Rise symmetrical. Breath sounds diminished at bases. HEART: S1, S2. ABDOMEN: Soft, bowel sounds present. EXTREMITIES: Without cyanosis. SKIN: With multiple wounds. ASSESSMENT: 1. Ongoing sepsis with fevers, likely multifactorial. 2. Multiple infected wounds, status post debridement. 3. Multidrug resistant bacteremia possibly secondary to infected wounds status post PICC line discontinued. 4. Acute pancreatitis. 5. Cholecystitis status post cholecystostomy tube placement. 6. 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 PLAN: Doing better today, continue abx, local wound care per surgical rec-s, f/ u repeat cx's DW staff Problems: Consultation Date/Type/Reason Admit Date/Time Jan 09, 2017 at 19:08 Initial Consult Date 01/15/17 Type of Consultation: ID Referring Provider: YAO RAHMAN Exam/Review of Systems Vital Signs Vitals Vital Signs Date Time Temp Pulse Resp B/P Pulse Ox O2 Delivery O2 Flow Rate FiO2 02/15/17 12:00 96 02/15/17 11:30 98.8 18 125/62 100 02/15/17 01:15 Nasal Cannula 2.0 Intake and Output 02/14/17 02/14/17 02/15/17 15:00 23:00 07:00 Intake Total 100 ml 500 ml 750 ml Output Total 775 ml 1200 ml Balance 100 ml -275 ml -450 ml Results Result Diagram: 02/15/17 0706 02/14/17 0714 Results 24 hrs Laboratory Tests Test 02/15/17 07:06 White Blood Count 7.2 Red Blood Count 2.94 L Hemoglobin 8.7 L Hematocrit 26.4 L Mean Corpuscular Volume 89.8 Mean Corpuscular Hemoglobin 29.6 Mean Corpuscular Hemoglobin Concent 33.0 Red Cell Distribution Width 18.3 H Platelet Count 233 Mean Platelet Volume 9.9 Neutrophils % 84.3 H Lymphocytes % 3.6 L Monocytes % 9.8 Eosinophils % 0.8 Basophils % 0.3 Nucleated Red Blood Cells % 0.0 Neutrophils # (Manual) 6.1 Lymphocytes # 0.3 L Monocytes # 0.7 Eosinophils # 0.1 Basophils # 0.0 Nucleated Red Blood Cells # 0.0 Medications Medications Current Medications Sodium Biphosphate/ Sodium Phosphate (Fleet Enema) 133 ml DAILY PRN [place] CONSTIPATION; Start 01/09/17 at 19:30 Nitroglycerin (Nitroglycerin (Sl Tab) 0.4 Mg) 1 tab Q5M PRN SL ANGINA; Start at 19:30 Misc[facility] This patient aranda... PRN PRN XX WOUND CARE; Start 01/10/17 at 03:30 Ondansetron HCl (Zofran Inj) 4 mg Q6 IV Last administered on 02/15/17 11:53; Admin Dose 4 MG; Start 01/10/17 at 15:30 IV Flush (NS 10 ml) 10 ml PRN PRN IV IV PROTOCOL; Start 01/10/17 at 20:30 Prednisone (Prednisone) 10 mg DAILY PO Last administered on 02/15/17 09:03; Admin Dose 10 MG; Start 01/15/17 at 09:00 Ergocalciferol (Drisdol) 50,000 unit We@ PO Last administered on 02/15/17 09: 30; Admin Dose 50,000 UNIT; Start 01/25/17 at 09:00 Calcium Carbonate (Oyster Shell Calcium) 1.25 gm BID PO Last administered on 09:02; Admin Dose 1.25 GM; Start 01/24/17 at 21:00 Pantoprazole (Protonix Tab) 40 mg DAILY@06 PO Last administered on 02/15/17 04: 50; Admin Dose 40 MG; Start 01/26/17 at 06:00 Hydromorphone HCl (Dilaudid) 1 mg Q2 PRN IV PAIN Last administered on 02/15/17 11:36; Admin Dose 1 MG; Start 01/25/17 at 21:00 Atenolol (Tenormin) 25 mg BID PO Last administered on 02/15/17 09:01; Admin Dose 25 MG; Start 01/30/17 at 12:00 Enoxaparin Sodium (Lovenox) 30 mg DAILY SC Last administered on 02/15/17 09:08 ; Admin Dose 30 MG; Start 02/01/17 at 16:00 Lactobacillus Acidophilus 1 each 1 each BID PO Last administered on 02/15/17 09 :30; Admin Dose 1 EACH; Start 02/03/17 at 21:00 Colistimethate Sodium/Sodium Chloride (Coly-Mycin/NS) 100 ml @ 200 mls/hr Q12 IVPB Last administered on 02/15/17 09:10; Admin Dose 200 MLS/HR; Start at 21:00 Bisacodyl (Dulcolax Supp) 10 mg BID PRN [place] CONSTIPATION; Start 02/04/17 at 19: 30 Sodium Biphosphate/ Sodium Phosphate (Fleet Enema) 133 ml BID PRN [place] CONSTIPATION; Start 02/04/17 at 19:30 Sodium Biphosphate/ Sodium Phosphate (Fleet Enema) 133 ml BID PRN [place] CONSTIPATION; Start 02/09/17 at 10:00 Potassium Chloride (Klor-Con 20) 40 meq DAILY PO Last administered on 02/15/17 09:02; Admin Dose 40 MEQ; Start 02/10/17 at 09:00 Docusate Sodium (Colace) 100 mg BID PO Last administered on 02/14/17 22:35; Admin Dose 100 MG; Start 02/12/17 at 09:00 Magnesium Hydroxide (Milk Of Mag) 30 ml DAILY PO Last administered on 02/14/17 08:49; Admin Dose 30 ML; Start 02/12/17 at 09:00 Amoxicillin/ Clavulanate Potassium (Augmentin) 875 mg BID PO Last administered on 02/15/17 09:02; Admin Dose 875 MG; Start 02/13/17 at 21:00; Stop 02/20/17 at 23:00 Methadone HCl (Methadone) 10 mg Q6H PO Last administered on 02/15/17 09:31; Admin Dose 10 MG; Start 02/14/17 at 16:00 Ondansetron HCl (Zofran Inj) 4 mg Q6H PRN IV NAUSEA AND/OR VOMITING; Start 02/14 at 15:30 DEENA LOCO NP Feb 15, 2017 14:15
--- NOTE | 2017-02-15 15:31 | CONS ---
Date/Time of Note Date/Time of Note DATE: 02/15/17 TIME: 15:28 Assessment/Plan Assessment/Plan Chief Complaint/Hosp Course IMP: 1.Tachycardia- S Tach-NL Ft4. Likely driven by fevers/NL EF by echo this admit. Currently improved 2.lymphoma 3.HTN 4.anemia 5.obesity 6.Hyponatremia-recurrent 7.Pancreatitis-improved 8. Fevers 9. Cholecystitis s/p drain placement Recc: -Tele -serial ecg's -continue BB as tolerated only -Continue abx's and f/u cx data -Pain control -ongoing onc eval and treatment with GI and surgical follow-up Problems: Consultation Date/Type/Reason Admit Date/Time Jan 09, 2017 at 19:08 Initial Consult Date 01/15/17 Type of Consultation: cardiology Reason for Consultation tachycardia Referring Provider: YAO RAHMAN Exam/Review of Systems Vital Signs Vitals Vital Signs Date Time Temp Pulse Resp B/P Pulse Ox O2 Delivery O2 Flow Rate FiO2 02/15/17 15:27 98.7 79 19 116/64 98 02/15/17 01:15 Nasal Cannula 2.0 Intake and Output 02/14/17 02/14/17 02/15/17 15:00 23:00 07:00 Intake Total 100 ml 500 ml 750 ml Output Total 775 ml 1200 ml Balance 100 ml -275 ml -450 ml Exam Review of Systems: CONSTITUTIONAL: No fevers, chills. PULMONARY: No sob CARDIOVASCULAR: No chest pain/palpitations GASTROINTESTINAL: No nausea/vomiting. GENITOURINARY: No hematuria/dysuria. MUSCULOSKELETAL: No myagias/arthalgias. PSYCHIATRIC: The patient denies depression. NEUROLOGIC: No weakness Constitutional: alert, oriented Psych: no complaints Head: normocephalic ENMT: mucosa pink and moist Neck: jvd, supple Respiratory: diminished breath sounds Cardiovascular: regular rate and rhythm Gastrointestinal: non-tender, soft Musculoskeletal: muscle tone (normal) Extremities: edema (nonw) Neurological: other (No focal deficits) Results Result Diagram: 02/15/17 0706 02/14/17 0714 Results 24 hrs Laboratory Tests Test 02/15/17 07:06 White Blood Count 7.2 Red Blood Count 2.94 L Hemoglobin 8.7 L Hematocrit 26.4 L Mean Corpuscular Volume 89.8 Mean Corpuscular Hemoglobin 29.6 Mean Corpuscular Hemoglobin Concent 33.0 Red Cell Distribution Width 18.3 H Platelet Count 233 Mean Platelet Volume 9.9 Neutrophils % 84.3 H Lymphocytes % 3.6 L Monocytes % 9.8 Eosinophils % 0.8 Basophils % 0.3 Nucleated Red Blood Cells % 0.0 Neutrophils # (Manual) 6.1 Lymphocytes # 0.3 L Monocytes # 0.7 Eosinophils # 0.1 Basophils # 0.0 Nucleated Red Blood Cells # 0.0 Medications Medications Current Medications Sodium Biphosphate/ Sodium Phosphate (Fleet Enema) 133 ml DAILY PRN [place] CONSTIPATION; Start 01/09/17 at 19:30 Nitroglycerin (Nitroglycerin (Sl Tab) 0.4 Mg) 1 tab Q5M PRN SL ANGINA; Start at 19:30 Miscellaneous Information ([facility] This patient aranda... PRN PRN XX WOUND CARE; Start 01/10/17 at 03:30 Ondansetron HCl (Zofran Inj) 4 mg Q6 IV Last administered on 02/15/17 11:53; Admin Dose 4 MG; Start 01/10/17 at 15:30 IV Flush (NS 10 ml) 10 ml PRN PRN IV IV PROTOCOL; Start 01/10/17 at 20:30 Prednisone (Prednisone) 10 mg DAILY PO Last administered on 02/15/17 09:03; Admin Dose 10 MG; Start 01/15/17 at 09:00 Ergocalciferol (Drisdol) 50,000 unit We@09 PO Last administered on 02/15/17 09: 30; Admin Dose 50,000 UNIT; Start 01/25/17 at 09:00 Calcium Carbonate (Oyster Shell Calcium) 1.25 gm BID PO Last administered on 09:02; Admin Dose 1.25 GM; Start 01/24/17 at 21:00 Pantoprazole (Protonix Tab) 40 mg DAILY@06 PO Last administered on 02/15/17 04: 50; Admin Dose 40 MG; Start 01/26/17 at 06:00 Hydromorphone HCl (Dilaudid) 1 mg Q2 PRN IV PAIN Last administered on 02/15/17 11:36; Admin Dose 1 MG; Start 01/25/17 at 21:00 Atenolol (Tenormin) 25 mg BID PO Last administered on 02/15/17 09:01; Admin Dose 25 MG; Start 01/30/17 at 12:00 Enoxaparin Sodium (Lovenox) 30 mg DAILY SC Last administered on 02/15/17 09:08 ; Admin Dose 30 MG; Start 02/01/17 at 16:00 Lactobacillus Acidophilus 1 each 1 each BID PO Last administered on 02/15/17 09 :30; Admin Dose 1 EACH; Start 02/03/17 at 21:00 Colistimethate Sodium/Sodium Chloride (Coly-Mycin/NS) 100 ml @ 200 mls/hr Q12 IVPB Last administered on 02/15/17 09:10; Admin Dose 200 MLS/HR; Start at 21:00 Bisacodyl (Dulcolax Supp) 10 mg BID PRN [place] CONSTIPATION; Start 02/04/17 at 19: 30 Sodium Biphosphate/ Sodium Phosphate (Fleet Enema) 133 ml BID PRN [place] CONSTIPATION; Start 02/04/17 at 19:30 Sodium Biphosphate/ Sodium Phosphate (Fleet Enema) 133 ml BID PRN [place] CONSTIPATION; Start 02/09/17 at 10:00 Potassium Chloride (Klor-Con 20) 40 meq DAILY PO Last administered on 02/15/17 09:02; Admin Dose 40 MEQ; Start 02/10/17 at 09:00 Docusate Sodium (Colace) 100 mg BID PO Last administered on 02/14/17 22:35; Admin Dose 100 MG; Start 02/12/17 at 09:00 Magnesium Hydroxide (Milk Of Mag) 30 ml DAILY PO Last administered on 02/14/17 08:49; Admin Dose 30 ML; Start 02/12/17 at 09:00 Amoxicillin/ Clavulanate Potassium (Augmentin) 875 mg BID PO Last administered on 02/15/17 09:02; Admin Dose 875 MG; Start 02/13/17 at 21:00; Stop 02/20/17 at 23:00 Methadone HCl (Methadone) 10 mg Q6H PO Last administered on 02/15/17 09:31; Admin Dose 10 MG; Start 02/14/17 at 16:00 Ondansetron HCl (Zofran Inj) 4 mg Q6H PRN IV NAUSEA AND/OR VOMITING; Start 02/14 at 15:30 LARRY SANTANA Feb 15, 2017 15:31
--- NOTE | 2017-02-15 16:47 | PN ---
Date/Time of Note Date/Time of Note DATE: 02/15/17 TIME: 16:44 Assessment/Plan VTE Prophylaxis VTE Prophylaxis Intervention: SCD's Lines/Catheters IV [facility] Saline Lock Urinary Cath still in place: No Assessment/Plan Assessment/Plan Impression: 1. Multiple superficial wounds on the back and flank region and behind the right knee 2. Status post percutaneous cholecystostomy drain placement 02/02/2017 3. Small right pleural effusion with atelectasis and right lung base pneumonia. 4. Large B cell anaplastic lymphoma; status post chemo 1 month prior to presentation 5. Sepsis 6. Hyponatremia 7. Hypokalemia 8. Acute renal injury 9. Excisional debridement of multiple sites including large area over the lumbar and flank region, 40 cm x 15 cm x 1 cm, smaller area on the right flank region, 10 cm x 4 cm x 1 cm, and an area behind the right knee, approximately 9 cm x 7 cm x 1 cm with removal of 15 cm x 10 cm x 1 cm soft tissue using scissors to a depth of 1 cm to subcutaneous fat Recommendations: 1. pain control 2. Monitor hemoglobin and hematocrit 3. transfuse PRN hgb less than 8 4. changed colace and mag hydroxide to standing from PRN as some of the pain likely from constipation 5. Percutaneous cholecystostomy drain care teachings to patient and family 6. Aggressive wound care 7. case discussed with Dr Hewitt 8 further orders will depend on clinical course Subjective 24 Hr Interval Summary Free Text/Dictation * Course reviewed with RN * Patient seen and examined * No untoward events overnight Exam/Review of Systems Vital Signs Vitals Vital Signs Date Time Temp Pulse Resp B/P Pulse Ox O2 Delivery O2 Flow Rate FiO2 02/15/17 16:00 83 02/15/17 15:27 98.7 19 116/64 98 02/15/17 01:15 Nasal Cannula 2.0 Intake and Output 02/14/17 02/14/17 02/15/17 15:00 23:00 07:00 Intake Total 100 ml 500 ml 750 ml Output Total 775 ml 1200 ml Balance 100 ml -275 ml -450 ml Exam Constitutional: alert Neck: non-tender, supple Respiratory: diminished breath sounds, normal air movement Cardiovascular: nl pulses, regular rate and rhythm Gastrointestinal: non-tender, soft Musculoskeletal: muscle weakness Extremities: normal pulses Skin: nl turgor, rash or lesions Lymph: nl lymph nodes Results Result Diagram: 02/15/17 0706 02/14/17 0714 Results 24 hrs Laboratory Tests Test 02/15/17 07:06 White Blood Count 7.2 Red Blood Count 2.94 L Hemoglobin 8.7 L Hematocrit 26.4 L Mean Corpuscular Volume 89.8 Mean Corpuscular Hemoglobin 29.6 Mean Corpuscular Hemoglobin Concent 33.0 Red Cell Distribution Width 18.3 H Platelet Count 233 Mean Platelet Volume 9.9 Neutrophils % 84.3 H Lymphocytes % 3.6 L Monocytes % 9.8 Eosinophils % 0.8 Basophils % 0.3 Nucleated Red Blood Cells % 0.0 Neutrophils # (Manual) 6.1 Lymphocytes # 0.3 L Monocytes # 0.7 Eosinophils # 0.1 Basophils # 0.0 Nucleated Red Blood Cells # 0.0 Medications Medications Current Medications Sodium Biphosphate/ Sodium Phosphate (Fleet Enema) 133 ml DAILY PRN [place] CONSTIPATION; Start 01/09/17 at 19:30 Nitroglycerin (Nitroglycerin (Sl Tab) 0.4 Mg) 1 tab Q5M PRN SL ANGINA; Start at 19:30 Miscellaneous Information (Pending [facility] Order For Wound Care) This patient aranda... PRN PRN XX WOUND CARE; Start 01/10/17 at 03:30 Ondansetron HCl (Zofran Inj) 4 mg Q6 IV Last administered on 02/15/17 11:53; Admin Dose 4 MG; Start 01/10/17 at 15:30 IV Flush (NS 10 ml) 10 ml PRN PRN IV IV PROTOCOL; Start 01/10/17 at 20:30 Prednisone (Prednisone) 10 mg DAILY PO Last administered on 02/15/17 09:03; Admin Dose 10 MG; Start 01/15/17 at 09:00 Ergocalciferol (Drisdol) 50,000 unit We@ PO Last administered on 02/15/17 09: 30; Admin Dose 50,000 UNIT; Start 01/25/17 at 09:00 Calcium Carbonate (Oyster Shell Calcium) 1.25 gm BID PO Last administered on 09:02; Admin Dose 1.25 GM; Start 01/24/17 at 21:00 Pantoprazole (Protonix Tab) 40 mg DAILY@06 PO Last administered on 02/15/17 04: 50; Admin Dose 40 MG; Start 01/26/17 at 06:00 Hydromorphone HCl (Dilaudid) 1 mg Q2 PRN IV PAIN Last administered on 02/15/17 11:36; Admin Dose 1 MG; Start 01/25/17 at 21:00 Atenolol (Tenormin) 25 mg BID PO Last administered on 02/15/17 09:01; Admin Dose 25 MG; Start 01/30/17 at 12:00 Enoxaparin Sodium (Lovenox) 30 mg DAILY SC Last administered on 02/15/17 09:08 ; Admin Dose 30 MG; Start 02/01/17 at 16:00 Lactobacillus Acidophilus 1 each 1 each BID PO Last administered on 02/15/17 09 :30; Admin Dose 1 EACH; Start 02/03/17 at 21:00 Colistimethate Sodium/Sodium Chloride (Coly-Mycin/NS) 100 ml @ 200 mls/hr Q12 IVPB Last administered on 02/15/17 09:10; Admin Dose 200 MLS/HR; Start at 21:00 Bisacodyl (Dulcolax Supp) 10 mg BID PRN [place] CONSTIPATION; Start 02/04/17 at 19: 30 Sodium Biphosphate/ Sodium Phosphate (Fleet Enema) 133 ml BID PRN [place] CONSTIPATION; Start 02/04/17 at 19:30 Sodium Biphosphate/ Sodium Phosphate (Fleet Enema) 133 ml BID PRN [place] CONSTIPATION; Start 02/09/17 at 10:00 Potassium Chloride (Klor-Con 20) 40 meq DAILY PO Last administered on 02/15/17 09:02; Admin Dose 40 MEQ; Start 02/10/17 at 09:00 Docusate Sodium (Colace) 100 mg BID PO Last administered on 02/14/17 22:35; Admin Dose 100 MG; Start 02/12/17 at 09:00 Magnesium Hydroxide (Milk Of Mag) 30 ml DAILY PO Last administered on 02/14/17 08:49; Admin Dose 30 ML; Start 02/12/17 at 09:00 Amoxicillin/ Clavulanate Potassium (Augmentin) 875 mg BID PO Last administered on 02/15/17 09:02; Admin Dose 875 MG; Start 02/13/17 at 21:00; Stop 02/20/17 at 23:00 Methadone HCl (Methadone) 10 mg Q6H PO Last administered on 02/15/17t 16:21; Admin Dose 10 MG; Start 02/14/17 at 16:00 Ondansetron HCl (Zofran Inj) 4 mg Q6H PRN IV NAUSEA AND/OR VOMITING; Start 02/14 at 15:30 SELENA ROY NP Feb 15, 2017 16:47
[2017-02-15] MEDS ORDERED: BARIUM SULF 2% 450 ML BTL (BERRY SMOOTHIE) PO ONE (21:00)
--- NOTE | 2017-02-15 23:23 | PN ---
Date/Time of Note Date/Time of Note DATE: 02/15/17 TIME: 23:22 Assessment/Plan VTE Prophylaxis VTE Prophylaxis Intervention: other Lines/Catheters [facility] Saline Lock Urinary Cath still in place: No Assessment/Plan Chief Complaint/Hosp Course 1. pancreatitis on pain control with s/p Cholecystomy 2 s/p Cholecystomy 3 Hyponatremia 4 Acute renal injury resolved 5 Right pleural effusion with atelectasis and right lung base pneumonia, resolved. 6. Large B cell anaplastic lymphoma; status post chemo 1 month, leukopenia now neutropenic 7. 2 Hypoparathyroidism On Calcitrol and Caco3 8 Severe anemia 9 Morbid obesity 10 excisional debridement of multiple sites including large area over the lumbar and flank region, 40 cm x 15 cm x 1 cm, smaller area on the right flank region, 10 cm x 4 cm x 1 cm, and an area behind the right knee, approximately 9 cm x 7 cm x 1 cm with removal of 15 cm x 10 cm x 1 cm soft tissue using scissors to a depth of 1 cm to subcutaneous fat 11 hypokalemia 12 DIARRHEA+ PLAN PER ID SURGERY AND PAIN CONTROL [facility] Problems: Subjective 24 Hr Interval Summary Cardiovascular: no complaints Gastrointestinal: diarrhea (+) Exam/Review of Systems Vital Signs Vitals Vital Signs Date Time Temp Pulse Resp B/P Pulse Ox O2 Delivery O2 Flow Rate FiO2 02/15/17 20:43 84 02/15/17 20:17 97.7 19 113/57 98 02/15/17 19:15 Nasal Cannula 2.0 Intake and Output 02/14/17 02/14/17 02/15/17 15:00 23:00 07:00 Intake Total 100 ml 500 ml 750 ml Output Total 775 ml 1200 ml Balance 100 ml -275 ml -450 ml Exam Respiratory: clear to auscultation Cardiovascular: regular rate and rhythm Gastrointestinal: soft Musculoskeletal: nl extremities to inspection Extremities: normal pulses Results Result Diagram: 02/15/17 0706 02/14/17 0714 Results 24 hrs Laboratory Tests Test 02/15/17 07:06 White Blood Count 7.2 Red Blood Count 2.94 L Hemoglobin 8.7 L Hematocrit 26.4 L Mean Corpuscular Volume 89.8 Mean Corpuscular Hemoglobin 29.6 Mean Corpuscular Hemoglobin Concent 33.0 Red Cell Distribution Width 18.3 H Platelet Count 233 Mean Platelet Volume 9.9 Neutrophils % 84.3 H Lymphocytes % 3.6 L Monocytes % 9.8 Eosinophils % 0.8 Basophils % 0.3 Nucleated Red Blood Cells % 0.0 Neutrophils # (Manual) 6.1 Lymphocytes # 0.3 L Monocytes # 0.7 Eosinophils # 0.1 Basophils # 0.0 Nucleated Red Blood Cells # 0.0 Medications Medications Current Medications Sodium Biphosphate/ Sodium Phosphate (Fleet Enema) 133 ml DAILY PRN [place] CONSTIPATION; Start 01/09/17 at 19:30 Nitroglycerin (Nitroglycerin (Sl Tab) 0.4 Mg) 1 tab Q5M PRN SL ANGINA; Start at 19:30 [facility] This patient aranda... PRN PRN XX WOUND CARE; Start 01/10/17 at 03:30 Ondansetron HCl (Zofran Inj) 4 mg Q6 IV Last administered on 02/15/17 17:02; Admin Dose 4 MG; Start 01/10/17 at 15:30 IV Flush (NS 10 ml) 10 ml PRN PRN IV IV PROTOCOL; Start 01/10/17 at 20:30 Prednisone (Prednisone) 10 mg DAILY PO Last administered on 02/15/17 09:03; Admin Dose 10 MG; Start 01/15/17 at 09:00 Ergocalciferol (Drisdol) 50,000 unit We@09 PO Last administered on 02/15/17 09: 30; Admin Dose 50,000 UNIT; Start 01/25/17 at 09:00 Calcium Carbonate (Oyster Shell Calcium) 1.25 gm BID PO Last administered on 20:46; Admin Dose 1.25 GM; Start 01/24/17 at 21:00 Pantoprazole (Protonix Tab) 40 mg DAILY@06 PO Last administered on 02/15/17 04: 50; Admin Dose 40 MG; Start 01/26/17 at 06:00 Hydromorphone HCl (Dilaudid) 1 mg Q2 PRN IV PAIN Last administered on 02/15/17 21:03; Admin Dose 1 MG; Start 01/25/17 at 21:00 Atenolol (Tenormin) 25 mg BID PO Last administered on 02/15/17 20:45; Admin Dose 25 MG; Start 01/30/17 at 12:00 Enoxaparin Sodium (Lovenox) 30 mg DAILY SC Last administered on 02/15/17 09:08 ; Admin Dose 30 MG; Start 02/01/17 at 16:00 Lactobacillus Acidophilus 1 each 1 each BID PO Last administered on 02/15/17 20 :45; Admin Dose 1 EACH; Start 02/03/17 at 21:00 Colistimethate Sodium/Sodium Chloride (Coly-Mycin/NS) 100 ml @ 200 mls/hr Q12 IVPB Last administered on 02/15/17 20:45; Admin Dose 200 MLS/HR; Start at 21:00 Bisacodyl (Dulcolax Supp) 10 mg BID PRN [place] CONSTIPATION; Start 02/04/17 at 19: 30 Sodium Biphosphate/ Sodium Phosphate (Fleet Enema) 133 ml BID PRN [place] CONSTIPATION; Start 02/04/17 at 19:30 Sodium Biphosphate/ Sodium Phosphate (Fleet Enema) 133 ml BID PRN [place] CONSTIPATION; Start 02/09/17 at 10:00 Potassium Chloride (Klor-Con 20) 40 meq DAILY PO Last administered on 02/15/17 09:02; Admin Dose 40 MEQ; Start 02/10/17 at 09:00 Docusate Sodium (Colace) 100 mg BID PO Last administered on 02/14/17 22:35; Admin Dose 100 MG; Start 02/12/17 at 09:00 Magnesium Hydroxide (Milk Of Mag) 30 ml DAILY PO Last administered on 02/14/17 08:49; Admin Dose 30 ML; Start 02/12/17 at 09:00 Amoxicillin/ Clavulanate Potassium (Augmentin) 875 mg BID PO Last administered on 02/15/17 20:45; Admin Dose 875 MG; Start 02/13/17 at 21:00; Stop 02/20/17 at 23:00 Methadone HCl (Methadone) 10 mg Q6H PO Last administered on 02/15/17 22:55; Admin Dose 10 MG; Start 02/14/17 at 16:00 Ondansetron HCl (Zofran Inj) 4 mg Q6H PRN IV NAUSEA AND/OR VOMITING; Start 02/14 at 15:30 TAWNY CELIS MD Feb 15, 2017 23:23
--- NOTE | 2017-02-15 23:42 | CONS ---
Date/Time of Note Date/Time of Note DATE: 02/15/17 TIME: 23:41 Assessment/Plan Assessment/Plan Chief Complaint/Hosp Course Anaplastic B-cell Lymphoma pt was dx'd with lymphoma a year and half ago , it turned into an aggressive type. His last chemo was a month ago and hadn't had since due to experiencing similar presenting symptoms. record from pt's oncologist Kain Wisdom - P Left flank mass, CT-guided core needle biopsies with touch imprints: Completely necrotic tissue, insufficient for pathologic evaluation. PER PT REPORT- reportedly scheduled for change in therapy due to what appears to be lack of adequate response CT ABD/PEL/CHEST:(+) multiple areas of nodules likely lymphoma, PT WANT TO GO HOME AND FAMILY ALREADY CALLED HIS PRIMARY ONCOLOGIST TO ARRANGE THE APPT JOSSELIN POST DC OK TO DC HOME WHEN CLEARED BY PRIMARY AND ALL CONSULTANTS WITH F-UP BY DR WISDOM LEUKOPENIA IN PT WITH HNL POST CHEMO AND WITH SEPTIC PICTURE MONITOR BLOOD COUNT CLOSELY POST NEUPOGEN WBC- FLUCTUATING IMPROVED ON NEUPOGEN X 2 DC NEUPOGEN PANCYTOPENIA POST CHEMO CONT TO MONITOR PRBC NEEDED PAIN DR WHITE ON THE CASE s/p Sepsis w/worsening lactic acidosis 2/2 PNA + Left flank/hip/leg decub Resolving HCAP => CT ABD/PEL/CHEST: (+) PNA * 01/24 RESPIRATORY CULTURE Final 3+ KLEB PNEUMONIAE CARBAPENEMASE ID W-UP pancreatitis. Abd Pain with N/V: 2/2 known lymphoma - pain mgmt - Anti-emetics Hyponatremia and Hypokalemia: 2/2 vomiting - NS IVF - replete K+ as needed Presumed RAMU: likely pre-renal 2/2 vomiting - cont IVF for now Problems: Consultation Date/Type/Reason Admit Date/Time Jan 09, 2017 at 19:08 Initial Consult Date 01/10/17 [facility] Referring Provider: YAO RAHMAN 24 HR Interval Summary Free Text/Dictation ALL NOTED FEVER- DOWN WEAK NO BLEEDING PLATELET COUNT - IMPROVED Exam/Review of Systems Vital Signs Vitals Vital Signs Date Time Temp Pulse Resp B/P Pulse Ox O2 Delivery O2 Flow Rate FiO2 02/15/17 20:43 84 02/15/17 20:17 97.7 19 113/57 98 02/15/17 19:15 Nasal Cannula 2.0 Intake and Output 02/14/17 02/14/17 02/15/17 15:00 23:00 07:00 Intake Total 100 ml 500 ml 750 ml Output Total 775 ml 1200 ml Balance 100 ml -275 ml -450 ml Exam GENERAL: This is a well-developed, ill-appearing, middle-aged, man, who is awake, in no distress. HEENT: Head atraumatic, normocephalic. Sclerae anicteric. Buccal mucosa pink and dry. NECK: Supple. CHEST: Rise symmetrical. Breath sounds diminished at the bases. HEART: S1, S2. ABDOMEN: Soft, bowel sounds present. EXTREMITIES: Without cyanosis. + WOUNDS Results Result Diagram: 02/15/17 0706 02/14/17 0714 Results 24 hrs Laboratory Tests Test 02/15/17 07:06 White Blood Count 7.2 Red Blood Count 2.94 L Hemoglobin 8.7 L Hematocrit 26.4 L Mean Corpuscular Volume 89.8 Mean Corpuscular Hemoglobin 29.6 Mean Corpuscular Hemoglobin Concent 33.0 Red Cell Distribution Width 18.3 H Platelet Count 233 Mean Platelet Volume 9.9 Neutrophils % 84.3 H Lymphocytes % 3.6 L Monocytes % 9.8 Eosinophils % 0.8 Basophils % 0.3 Nucleated Red Blood Cells % 0.0 Neutrophils # (Manual) 6.1 Lymphocytes # 0.3 L Monocytes # 0.7 Eosinophils # 0.1 Basophils # 0.0 Nucleated Red Blood Cells # 0.0 Medications Medications Current Medications Sodium Biphosphate/ Sodium Phosphate (Fleet Enema) 133 ml DAILY PRN [place] CONSTIPATION; Start 01/09/17 at 19:30 Nitroglycerin (Nitroglycerin (Sl Tab) 0.4 Mg) 1 tab Q5M PRN SL ANGINA; Start at 19:30 Miscellaneous Information (Pending [facility] Order For Wound Care) This patient aranda... PRN PRN XX WOUND CARE; Start 01/10/17 at 03:30 Ondansetron HCl (Zofran Inj) 4 mg Q6 IV Last administered on 02/15/17t 17:02; Admin Dose 4 MG; Start 01/10/17 at 15:30 IV Flush (NS 10 ml) 10 ml PRN PRN IV IV PROTOCOL; Start 01/10/17 at 20:30 Prednisone (Prednisone) 10 mg DAILY PO Last administered on 02/15/17 09:03; Admin Dose 10 MG; Start 01/15/17 at 09:00 Ergocalciferol (Drisdol) 50,000 unit We@09 PO Last administered on 02/15/17 09: 30; Admin Dose 50,000 UNIT; Start 01/25/17 at 09:00 Calcium Carbonate (Oyster Shell Calcium) 1.25 gm BID PO Last administered on 20:46; Admin Dose 1.25 GM; Start 01/24/17 at 21:00 Pantoprazole (Protonix Tab) 40 mg DAILY@06 PO Last administered on 02/15/17 04: 50; Admin Dose 40 MG; Start 01/26/17 at 06:00 Hydromorphone HCl (Dilaudid) 1 mg Q2 PRN IV PAIN Last administered on 02/15/17 23:30; Admin Dose 1 MG; Start 01/25/17 at 21:00 Atenolol (Tenormin) 25 mg BID PO Last administered on 02/15/17 20:45; Admin Dose 25 MG; Start 01/30/17 at 12:00 Enoxaparin Sodium (Lovenox) 30 mg DAILY SC Last administered on 02/15/17 09:08 ; Admin Dose 30 MG; Start 02/01/17 at 16:00 Lactobacillus Acidophilus 1 each 1 each BID PO Last administered on 02/15/17 20 :45; Admin Dose 1 EACH; Start 02/03/17 at 21:00 Colistimethate Sodium/Sodium Chloride (Coly-Mycin/NS) 100 ml @ 200 mls/hr Q12 IVPB Last administered on 02/15/17 20:45; Admin Dose 200 MLS/HR; Start at 21:00 Bisacodyl (Dulcolax Supp) 10 mg BID PRN [place] CONSTIPATION; Start 02/04/17 at 19: 30 Sodium Biphosphate/ Sodium Phosphate (Fleet Enema) 133 ml BID PRN [place] CONSTIPATION; Start 02/04/17 at 19:30 Sodium Biphosphate/ Sodium Phosphate (Fleet Enema) 133 ml BID PRN [place] CONSTIPATION; Start 02/09/17 at 10:00 Potassium Chloride (Klor-Con 20) 40 meq DAILY PO Last administered on 02/15/17 09:02; Admin Dose 40 MEQ; Start 02/10/17 at 09:00 Docusate Sodium (Colace) 100 mg BID PO Last administered on 02/14/17 22:35; Admin Dose 100 MG; Start 02/12/17 at 09:00 Magnesium Hydroxide (Milk Of Mag) 30 ml DAILY PO Last administered on 02/14/17 08:49; Admin Dose 30 ML; Start 02/12/17 at 09:00 Amoxicillin/ Clavulanate Potassium (Augmentin) 875 mg BID PO Last administered on 02/15/17 20:45; Admin Dose 875 MG; Start 02/13/17 at 21:00; Stop 02/20/17 at 23:00 Methadone HCl (Methadone) 10 mg Q6H PO Last administered on 02/15/17 22:55; Admin Dose 10 MG; Start 02/14/17 at 16:00 Ondansetron HCl (Zofran Inj) 4 mg Q6H PRN IV NAUSEA AND/OR VOMITING; Start 02/14 at 15:30 MOIRA BIRMINGHAM MD Feb 15, 2017 23:42
[2017-02-16] VITALS (12 sets, daily range): BP systolic 107–121; BP diastolic 55–78; PULSE 77–90; RESP 18–19
[2017-02-16] MEDS: HYDROmorphONE 1 MG/ML SYG IV PRN ×5 (04:21→22:35)
[2017-02-16] MEDS: PANTOPRAZOLE (EC) 40 MG TAB PO SCH (05:41)
[2017-02-16] MEDS: ONDANSETRON 4 MG INJ IV SCH ×5 (05:41→17:39)
[2017-02-16] MEDS: METHADONE 10 MG TAB PO SCH ×4 (05:41→22:15)
[2017-02-16 07:19] LABS: ABNORMAL IP MESSAGE 1; BASOPHILS % 0.3 % (0.0-2.0); EOSINOPHILS # 0.1 10^3/ul (0.0-0.5); EOSINOPHILS % 0.8 % (0.0-7.0); HEMATOCRIT 27.4 % (42.0-52.0); HEMOGLOBIN 8.8 g/dl (14.0-18.0); LYMPHOCYTES # 0.2 10^3/ul (0.8-2.9); LYMPHOCYTES % 3.4 % (15.0-51.0); MEAN CORPUSCULAR HEMOGLOBIN 28.4 pg (29.0-33.0); MEAN CORPUSCULAR HGB CONC 32.1 g/dl (32.0-37.0); MEAN CORPUSCULAR VOLUME 88.4 fl (82.0-101.0); MEAN PLATELET VOLUME 10.1 fl (7.4-10.4); MONOCYTE # 0.5 10^3/ul (0.3-0.9); MONOCYTES % 8.3 % (0.0-11.0); NEUTROPHILS % 85.7 % (39.0-77.0); PLATELET COUNT 236 10^3/UL (140-415); POSITIVE DIFF @See below; RED CELL DISTRIBUTION WIDTH 18.7 % (11.5-14.5); WHITE BLOOD COUNT 6.5 10^3/ul (4.8-10.8)
[2017-02-16 07:46] LABS: ALBUMIN 3.2 g/dl (3.3-4.9); ALBUMIN/GLOBULIN RATIO 1.06; BILIRUBIN,INDIRECT 0.6 mg/dl (0-1.1); BILIRUBIN,TOTAL 0.6 mg/dl (0.2-1.3); CALCIUM 9.7 mg/dl (8.4-10.2); CREATININE 0.79 mg/dl (0.61-1.24); POTASSIUM 3.3 mmol/L (3.5-5.1); TOTAL PROTEIN 6.2 g/dl (6.1-8.1)
[2017-02-16] MEDS: DOCUSATE SODIUM 100 MG CAP PO SCH ×2 (09:00→22:14)
[2017-02-16] MEDS: MAGNESIUM HYDROXIDE 30ML CUP PO SCH (09:00)
[2017-02-16] MEDS: AMOXICILLIN/CLAV 875 MG TAB PO SCH ×2 (09:21→22:14)
[2017-02-16] MEDS: L ACIDOPHIL/B LACTIS/B LONGUM CAPSULE PO SCH ×2 (09:21→22:13)
[2017-02-16] MEDS: POTASSIUM CHLORIDE (SR) 20 MEQ TAB PO SCH (09:22)
[2017-02-16] MEDS: CALCIUM CARBONATE 1.25 GM TAB PO SCH ×2 (09:23→22:14)
[2017-02-16] MEDS: predniSONE 20 MG TAB PO SCH (09:25)
[2017-02-16] MEDS: ATENOLOL 25 MG TAB PO SCH ×2 (09:26→22:15)
[2017-02-16] MEDS: COLISTIMETHATE 150 MG in SOD CHLORIDE 0.9% 100 ML IVPB SCH ×2 (09:27→22:13)
[2017-02-16] MEDS: ENOXAPARIN 30 MG/0.3 ML SYG SC SCH (09:46)
--- NOTE | 2017-02-16 12:32 | CONS ---
Date/Time of Note Date/Time of Note DATE: 02/16/17 TIME: 12:28 Assessment/Plan Assessment/Plan Chief Complaint/Hosp Course IMP: 1.Tachycardia- S Tach-NL Ft4. Likely driven by fevers/NL EF by echo this admit. Currently improved with defevescence of fevers 2.lymphoma 3.HTN 4.anemia 5.obesity 6.Hyponatremia-recurrent 7.Pancreatitis-improved 8. Fevers 9. Cholecystitis s/p drain placement Recc: -Tele -serial ecg's -continue BB as tolerated with currently well controlled HR -Continue abx's and f/u cx data -Pain control -ongoing onc eval and f/u Problems: Consultation Date/Type/Reason Admit Date/Time Jan 09, 2017 at 19:08 Initial Consult Date 01/15/17 Type of Consultation: cardiology Reason for Consultation tachycardia Referring Provider: YAO RAHMAN Exam/Review of Systems Vital Signs Vitals Vital Signs Date Time Temp Pulse Resp B/P Pulse Ox O2 Delivery O2 Flow Rate FiO2 02/16/17 11:04 98.2 79 19 121/66 98 02/16/17 08:10 Nasal Cannula 2.0 Intake and Output 02/15/17 02/15/17 02/16/17 15:00 23:00 07:00 Intake Total 1100 ml 600 ml Output Total 720 ml 850 ml Balance 380 ml -250 ml Exam Review of Systems: CONSTITUTIONAL: No fevers, chills. PULMONARY: No sob CARDIOVASCULAR: No chest pain/palpitations GASTROINTESTINAL: No nausea/vomiting. GENITOURINARY: No hematuria/dysuria. MUSCULOSKELETAL: No myagias/arthalgias. PSYCHIATRIC: The patient denies depression. NEUROLOGIC: lethargic Psych: no complaints Head: normocephalic ENMT: mucosa pink and moist Neck: jvd, supple Respiratory: diminished breath sounds Cardiovascular: regular rate and rhythm Gastrointestinal: non-tender, soft Musculoskeletal: muscle tone Extremities: pitting pedal edema Neurological: other (No focal deficits) Results Result Diagram: 02/16/17 0643 02/16/17 0643 Results 24 hrs Laboratory Tests Test 02/16/17 06:43 White Blood Count 6.5 Red Blood Count 3.10 L Hemoglobin 8.8 L Hematocrit 27.4 L Mean Corpuscular Volume 88.4 Mean Corpuscular Hemoglobin 28.4 L Mean Corpuscular Hemoglobin Concent 32.1 Red Cell Distribution Width 18.7 H Platelet Count 236 Mean Platelet Volume 10.1 Neutrophils % 85.7 H Lymphocytes % 3.4 L Monocytes % 8.3 Eosinophils % 0.8 Basophils % 0.3 Nucleated Red Blood Cells % 0.0 Neutrophils # (Manual) 5.5 Lymphocytes # 0.2 L Monocytes # 0.5 Eosinophils # 0.1 Basophils # 0.0 Nucleated Red Blood Cells # 0.0 Sodium Level 128 L Potassium Level 3.3 L Chloride Level 95 L Carbon Dioxide Level 25 Anion Gap 11 Blood Urea Nitrogen 13 Creatinine 0.79 Glucose Level 81 Calcium Level 9.7 Total Bilirubin 0.6 Direct Bilirubin 0.00 Indirect Bilirubin 0.6 Aspartate Amino Transf (AST/SGOT) 35 Alanine Aminotransferase (ALT/SGPT) 31 Alkaline Phosphatase 146 H Total Protein 6.2 Albumin 3.2 L Globulin 3.00 Albumin/Globulin Ratio 1.06 Medications Medications Current Medications Sodium Biphosphate/ Sodium Phosphate (Fleet Enema) 133 ml DAILY PRN [place] CONSTIPATION; Start 01/09/17 at 19:30 Nitroglycerin (Nitroglycerin (Sl Tab) 0.4 Mg) 1 tab Q5M PRN SL ANGINA; Start at 19:30 Miscellaneous Information (Pending [facility] Order For Wound Care) This patient aranda... PRN PRN XX WOUND CARE; Start 01/10/17 at 03:30 Ondansetron HCl (Zofran Inj) 4 mg Q6 IV Last administered on 02/15/17 17:02; Admin Dose 4 MG; Start 01/10/17 at 15:30 IV Flush (NS 10 ml) 10 ml PRN PRN IV IV PROTOCOL; Start 01/10/17 at 20:30 Prednisone (Prednisone) 10 mg DAILY PO Last administered on 02/16/17 09:25; Admin Dose 10 MG; Start 01/15/17 at 09:00 Ergocalciferol (Drisdol) 50,000 unit We@09 PO Last administered on 02/15/17 09: 30; Admin Dose 50,000 UNIT; Start 01/25/17 at 09:00 Calcium Carbonate (Oyster Shell Calcium) 1.25 gm BID PO Last administered on 09:23; Admin Dose 1.25 GM; Start 01/24/17 at 21:00 Pantoprazole (Protonix Tab) 40 mg DAILY@06 PO Last administered on 02/16/17 05: 41; Admin Dose 40 MG; Start 01/26/17 at 06:00 Hydromorphone HCl (Dilaudid) 1 mg Q2 PRN IV PAIN Last administered on 02/16/17 09:32; Admin Dose 1 MG; Start 01/25/17 at 21:00 Atenolol (Tenormin) 25 mg BID PO Last administered on 02/16/17 09:26; Admin Dose 25 MG; Start 01/30/17 at 12:00 Enoxaparin Sodium (Lovenox) 30 mg DAILY SC Last administered on 02/16/17 09:46 ; Admin Dose 30 MG; Start 02/01/17 at 16:00 Lactobacillus Acidophilus 1 each 1 each BID PO Last administered on 02/16/17 09 :21; Admin Dose 1 EACH; Start 02/03/17 at 21:00 Colistimethate Sodium/Sodium Chloride (Coly-Mycin/NS) 100 ml @ 200 mls/hr Q12 IVPB Last administered on 02/16/17 09:27; Admin Dose 200 MLS/HR; Start at 21:00 Bisacodyl (Dulcolax Supp) 10 mg BID PRN [place] CONSTIPATION; Start 02/04/17 at 19: 30 Sodium Biphosphate/ Sodium Phosphate (Fleet Enema) 133 ml BID PRN [place] CONSTIPATION; Start 02/04/17 at 19:30 Sodium Biphosphate/ Sodium Phosphate (Fleet Enema) 133 ml BID PRN [place] CONSTIPATION; Start 02/09/17 at 10:00 Docusate Sodium (Colace) 100 mg BID PO Last administered on 02/14/17 22:35; Admin Dose 100 MG; Start 02/12/17 at 09:00 Magnesium Hydroxide (Milk Of Mag) 30 ml DAILY PO Last administered on 02/14/17 08:49; Admin Dose 30 ML; Start 02/12/17 at 09:00 Amoxicillin/ Clavulanate Potassium (Augmentin) 875 mg BID PO Last administered on 02/16/17 09:21; Admin Dose 875 MG; Start 02/13/17 at 21:00; Stop 02/20/17 at 23:00 Methadone HCl (Methadone) 10 mg Q6H PO Last administered on 02/16/17t 10:28; Admin Dose 10 MG; Start 02/14/17 at 16:00 Ondansetron HCl (Zofran Inj) 4 mg Q6H PRN IV NAUSEA AND/OR VOMITING; Start 02/14 at 15:30 Potassium Chloride (Klor-Con 20) 30 meq BID PO ; Start 02/16/17 at 21:00; Status UNV LARRY SANTANA Feb 16, 2017 12:32
--- NOTE | 2017-02-16 14:43 | PN ---
Date/Time of Note Date/Time of Note DATE: 02/16/17 TIME: 14:41 Assessment/Plan VTE Prophylaxis VTE Prophylaxis Intervention: SCD's Lines/Catheters IV Catheter Type (from Nrs): Saline Lock Urinary Cath still in place: No Assessment/Plan Assessment/Plan Impression: 1. Multiple superficial wounds on the back and flank region and behind the right knee 2. Status post percutaneous cholecystostomy drain placement 02/02/2017 3. Small right pleural effusion with atelectasis and right lung base pneumonia. 4. Large B cell anaplastic lymphoma; status post chemo 1 month prior to presentation 5. Sepsis 6. Hyponatremia 7. Hypokalemia 8. Acute renal injury 9. Excisional debridement of multiple sites including large area over the lumbar and flank region, 40 cm x 15 cm x 1 cm, smaller area on the right flank region, 10 cm x 4 cm x 1 cm, and an area behind the right knee, approximately 9 cm x 7 cm x 1 cm with removal of 15 cm x 10 cm x 1 cm soft tissue using scissors to a depth of 1 cm to subcutaneous fat Recommendations: 1. pain control 2. Monitor hemoglobin and hematocrit 3. transfuse PRN hgb less than 8 4. changed colace and mag hydroxide to standing from PRN as some of the pain likely from constipation 5. Percutaneous cholecystostomy drain care teachings to patient and family 6. Aggressive wound care 7. case discussed with Dr Hewitt 8 further orders will depend on clinical course Subjective 24 Hr Interval Summary Free Text/Dictation * course reviewed with RN * patient seen and examined * no untoward events overnight Exam/Review of Systems Vital Signs Vitals Vital Signs Date Time Temp Pulse Resp B/P Pulse Ox O2 Delivery O2 Flow Rate FiO2 02/16/17 11:04 98.2 79 19 121/66 98 02/16/17 08:10 Nasal Cannula 2.0 Intake and Output 02/15/17 02/15/17 02/16/17 15:00 23:00 07:00 Intake Total 1100 ml 600 ml Output Total 720 ml 850 ml Balance 380 ml -250 ml Exam Constitutional: alert, frail Respiratory: clear to auscultation, normal air movement Cardiovascular: nl pulses, regular rate and rhythm Gastrointestinal: non-tender, soft Musculoskeletal: nl extremities to inspection, nl gait and stance Extremities: normal pulses Skin: nl turgor, rash or lesions Results Result Diagram: 02/16/1743 02/16/17 0643 Results 24 hrs Laboratory Tests Test 02/16/17 06:43 White Blood Count 6.5 Red Blood Count 3.10 L Hemoglobin 8.8 L Hematocrit 27.4 L Mean Corpuscular Volume 88.4 Mean Corpuscular Hemoglobin 28.4 L Mean Corpuscular Hemoglobin Concent 32.1 Red Cell Distribution Width 18.7 H Platelet Count 236 Mean Platelet Volume 10.1 Neutrophils % 85.7 H Lymphocytes % 3.4 L Monocytes % 8.3 Eosinophils % 0.8 Basophils % 0.3 Nucleated Red Blood Cells % 0.0 Neutrophils # (Manual) 5.5 Lymphocytes # 0.2 L Monocytes # 0.5 Eosinophils # 0.1 Basophils # 0.0 Nucleated Red Blood Cells # 0.0 Sodium Level 128 L Potassium Level 3.3 L Chloride Level 95 L Carbon Dioxide Level 25 Anion Gap 11 Blood Urea Nitrogen 13 Creatinine 0.79 Glucose Level 81 Calcium Level 9.7 Total Bilirubin 0.6 Direct Bilirubin 0.00 Indirect Bilirubin 0.6 Aspartate Amino Transf (AST/SGOT) 35 Alanine Aminotransferase (ALT/SGPT) 31 Alkaline Phosphatase 146 H Total Protein 6.2 Albumin 3.2 L Globulin 3.00 Albumin/Globulin Ratio 1.06 Medications Medications Current Medications Sodium Biphosphate/ Sodium Phosphate (Fleet Enema) 133 ml DAILY PRN [place] CONSTIPATION; Start 01/09/17 at 19:30 Nitroglycerin (Nitroglycerin (Sl Tab) 0.4 Mg) 1 tab Q5M PRN SL ANGINA; Start at 19:30 Miscellaneous Information (Pending [facility] Order For Wound Care) This patient aranda... PRN PRN XX WOUND CARE; Start 01/10/17 at 03:30 Ondansetron HCl (Zofran Inj) 4 mg Q6 IV Last administered on 02/15/17 17:02; Admin Dose 4 MG; Start 01/10/17 at 15:30 IV Flush (NS 10 ml) 10 ml PRN PRN IV IV PROTOCOL; Start 01/10/17 at 20:30 Prednisone (Prednisone) 10 mg DAILY PO Last administered on 02/16/17 09:25; Admin Dose 10 MG; Start 01/15/17 at 09:00 Ergocalciferol (Drisdol) 50,000 unit We@09 PO Last administered on 02/15/17 09: 30; Admin Dose 50,000 UNIT; Start 01/25/17 at 09:00 Calcium Carbonate (Oyster Shell Calcium) 1.25 gm BID PO Last administered on 09:23; Admin Dose 1.25 GM; Start 01/24/17 at 21:00 Pantoprazole (Protonix Tab) 40 mg DAILY@06 PO Last administered on 02/16/17 05: 41; Admin Dose 40 MG; Start 01/26/17 at 06:00 Hydromorphone HCl (Dilaudid) 1 mg Q2 PRN IV PAIN Last administered on 02/16/17 13:01; Admin Dose 1 MG; Start 01/25/17 at 21:00 Atenolol (Tenormin) 25 mg BID PO Last administered on 02/16/17 09:26; Admin Dose 25 MG; Start 01/30/17 at 12:00 Enoxaparin Sodium (Lovenox) 30 mg DAILY SC Last administered on 02/16/17 09:46 ; Admin Dose 30 MG; Start 02/01/17 at 16:00 Lactobacillus Acidophilus 1 each 1 each BID PO Last administered on 02/16/17 09 :21; Admin Dose 1 EACH; Start 02/03/17 at 21:00 Colistimethate Sodium/Sodium Chloride (Coly-Mycin/NS) 100 ml @ 200 mls/hr Q12 IVPB Last administered on 02/16/17 09:27; Admin Dose 200 MLS/HR; Start at 21:00 Bisacodyl (Dulcolax Supp) 10 mg BID PRN [place] CONSTIPATION; Start 02/04/17 at 19: 30 Sodium Biphosphate/ Sodium Phosphate (Fleet Enema) 133 ml BID PRN [place] CONSTIPATION; Start 02/04/17 at 19:30 Sodium Biphosphate/ Sodium Phosphate (Fleet Enema) 133 ml BID PRN [place] CONSTIPATION; Start 02/09/17 at 10:00 Docusate Sodium (Colace) 100 mg BID PO Last administered on 02/14/17 22:35; Admin Dose 100 MG; Start 02/12/17 at 09:00 Magnesium Hydroxide (Milk Of Mag) 30 ml DAILY PO Last administered on 02/14/17 08:49; Admin Dose 30 ML; Start 02/12/17 at 09:00 Amoxicillin/ Clavulanate Potassium (Augmentin) 875 mg BID PO Last administered on 02/16/17 09:21; Admin Dose 875 MG; Start 02/13/17 at 21:00; Stop 02/20/17 at 23:00 Methadone HCl (Methadone) 10 mg Q6H PO Last administered on 02/16/17 10:28; Admin Dose 10 MG; Start 02/14/17 at 16:00 Ondansetron HCl (Zofran Inj) 4 mg Q6H PRN IV NAUSEA AND/OR VOMITING; Start 02/14 at 15:30 Potassium Chloride (Klor-Con 10) 30 meq BID PO ; Start 02/16/17 at 21:00 SELENA ROY NP Feb 16, 2017 14:43
--- NOTE | 2017-02-16 16:28 | PN ---
Date/Time of Note Date/Time of Note DATE: 02/16/17 TIME: 16:27 Assessment/Plan Lines/Catheters IV Catheter Type (from Nrs): Saline Lock [place] in Place (from Nrs): No Assessment/Plan Assessment/Plan [facility] Progress Note Date of Service: 02/16/2017 Place of service: [facility] 5W tele Today's Assessment & Plan: Overall stable and appears somewhat improved. Awaiting results of the CT scan. No indication for acute surgery currently. Explained to patient and answered all questions. With above assessment, I've recommended the followin. CT scan of chest, abdomen, and pelvis without contrast Also see below for previous plans that are applicable today: 1. Continue aggressive medical management 2. Cont diet as tolerated 3. Follow GIs recommendations 4. If it would make a difference in management, may consider percutaneous biopsy of segment 6 area of abnormality in the liver 5. Multidisciplinary tumor board presentation and discussions 6. Consideration for clinical trials once improved medically 7. LFT's, amylase and lipase checks tomorrow with labs 8. Will likely benefit from aggressive bowel regimen (some of the pain likely from constipation) 9. Percutaneous cholecystostomy drain care teachings to patient and family 10. Aggressive wound care Thank you very much for having me involved in the care of this very pleasant patient and wonderful family. If you have any questions, please feel free to contact me at [phone]. Nature of presenting problem: High severity Please note that, given the extensive number of diagnoses or management options , the extensive amount and/or complexity of data needed to be reviewed, and high risk of complications and/or morbidity or mortality, this qualifies as high complexity type of decision-making. Disclaimer: Inadvertent spelling and grammatical errors are likely due to EHR/ dictation software use and do not reflect on the quality of delivered patient care. Also, please note that the electronic time recorded on this node does not necessarily reflect the actual time of the visit. 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 HIDA scan positive 01/28/2017. Status post percutaneous cholecystostomy drain placement 02/02/2017. Comorbidities: 1. Multiple superficial wounds on the back and flank region and behind the right knee. S/P excisional debridement of multiple sites including large area over the lumbar and flank region, 40 cm x 15 cm x 1 cm, smaller area on the right flank region, 10 cm x 4 cm x 1 cm, and an area behind the right knee, approximately 9 cm x 7 cm x 1 cm with removal of 15 cm x 10 cm x 1 cm soft tissue using scissors to a depth of 1 cm to subcutaneous fat at [facility] 02/09/17 2. BMI 40.7 3. Small right pleural effusion with atelectasis and right lung base pneumonia. 4. Large B cell anaplastic lymphoma; status post chemo 1 month prior to presentation 5. Sepsis 6. Hyponatremia 7. Hypokalemia 8. Acute renal injury 9. Status post percutaneous cholecystostomy drain placement 02/02/2017 Subjective: No major events or complaints overnight; feels better than 2 days ago; no significant abdominal pain today; slight back pain in the surgical area; no significant reported nausea or vomiting and no major diarrhea; no sob or cp; + flatus; + BM; minimal to no activity. Objective: Vitals: See below I's & O's: See below Exam: GENERAL: On exam, the patient was lying in bed and appeared to be comfortable and in no acute distress. ABDOMEN: Soft, minimal to no tenderness and nondistended. There are no peritoneal signs or guarding. Perc GB drain with thick green bilious output. SKIN: Skin appears to be pink and feels warm to touch. NEUROLOGIC: Patient is awake, alert, and follows commands appropriately. Labs: See below Exam/Review of Systems Vital Signs Vitals Vital Signs Date Time Temp Pulse Resp B/P Pulse Ox O2 Delivery O2 Flow Rate FiO2 02/16/17 15:28 2.0 02/16/17 15:23 98.2 86 19 111/55 98 02/16/17 08:10 Nasal Cannula Intake and Output 02/15/17 02/15/17 02/16/17 15:00 23:00 07:00 Intake Total 1100 ml 600 ml Output Total 720 ml 850 ml Balance 380 ml -250 ml Results Result Diagram: 02/16/17 0643 02/16/17 0643 LENKA HERNANDEZ M.D. Feb 16, 2017 16:28
--- NOTE | 2017-02-16 17:03 | CONS ---
Date/Time of Note Date/Time of Note DATE: 02/16/17 TIME: 17:00 Assessment/Plan Assessment/Plan Chief Complaint/Hosp Course SUBJECTIVE DATA: No acute events, feels better, no fevers, nad ANTIMICROBIALS: Augmentin, Colistin IV. MICROBIOLOGY: Blood culture on February 06 grew Klebsiella pneumonia, carbapenem resistant and coag-negative Staph species. Wound culture grew Pseudomonas, Klebsiella and Enterococcus species. INDWELLINGS: The patient has right abdominal cholecystostomy tube. PHYSICAL EXAMINATION: GENERAL: This is a wasted, well-developed, middle-aged man, who is awake, in no distress. HEENT: Head atraumatic, normocephalic. Sclerae anicteric. Buccal mucosa dry. NECK: Supple. CHEST: Rise symmetrical. Breath sounds diminished at bases. HEART: S1, S2. ABDOMEN: Soft, bowel sounds present. EXTREMITIES: Without cyanosis. SKIN: With multiple wounds. ASSESSMENT: 1. S/p sepsis 2. Multiple infected wounds, status post debridement. 3. Multidrug resistant bacteremia possibly secondary to infected wounds status post PICC line discontinued. 4. Acute pancreatitis. 5. Cholecystitis status post cholecystostomy tube placement. 6. 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 PLAN: Remains stable, continue abx, local wound care per surgical rec-s, will repeat bld cx and if negative he may be dc on Colistin 150 mg daily and Augmentin for 5 more days [facility] staff Problems: Consultation Date/Type/Reason Admit Date/Time Jan 09, 2017 at 19:08 Initial Consult Date 01/15/17 Type of Consultation: id Referring Provider: YAO RAHMAN Exam/Review of Systems Vital Signs Vitals Vital Signs Date Time Temp Pulse Resp B/P Pulse Ox O2 Delivery O2 Flow Rate FiO2 02/16/17 16:37 81 02/16/17 15:28 2.0 02/16/17 15:23 98.2 19 111/55 98 02/16/17 08:10 Nasal Cannula Intake and Output 02/15/17 02/15/17 02/16/17 15:00 23:00 07:00 Intake Total 1100 ml 600 ml Output Total 720 ml 850 ml Balance 380 ml -250 ml Results Result Diagram: 02/16/17 0643 02/16/17 0643 Results 24 hrs Laboratory Tests Test 02/16/17 06:43 White Blood Count 6.5 Red Blood Count 3.10 L Hemoglobin 8.8 L Hematocrit 27.4 L Mean Corpuscular Volume 88.4 Mean Corpuscular Hemoglobin 28.4 L Mean Corpuscular Hemoglobin Concent 32.1 Red Cell Distribution Width 18.7 H Platelet Count 236 Mean Platelet Volume 10.1 Neutrophils % 85.7 H Lymphocytes % 3.4 L Monocytes % 8.3 Eosinophils % 0.8 Basophils % 0.3 Nucleated Red Blood Cells % 0.0 Neutrophils # (Manual) 5.5 Lymphocytes # 0.2 L Monocytes # 0.5 Eosinophils # 0.1 Basophils # 0.0 Nucleated Red Blood Cells # 0.0 Sodium Level 128 L Potassium Level 3.3 L Chloride Level 95 L Carbon Dioxide Level 25 Anion Gap 11 Blood Urea Nitrogen 13 Creatinine 0.79 Glucose Level 81 Calcium Level 9.7 Total Bilirubin 0.6 Direct Bilirubin 0.00 Indirect Bilirubin 0.6 Aspartate Amino Transf (AST/SGOT) 35 Alanine Aminotransferase (ALT/SGPT) 31 Alkaline Phosphatase 146 H Total Protein 6.2 Albumin 3.2 L Globulin 3.00 Albumin/Globulin Ratio 1.06 Medications Medications Current Medications Sodium Biphosphate/ Sodium Phosphate (Fleet Enema) 133 ml DAILY PRN [place] CONSTIPATION; Start 01/09/17 at 19:30 Nitroglycerin (Nitroglycerin (Sl Tab) 0.4 Mg) 1 tab Q5M PRN SL ANGINA; Start at 19:30 [facility] This patient aranda... PRN PRN XX WOUND CARE; Start 01/10/17 at 03:30 Ondansetron HCl (Zofran Inj) 4 mg Q6 IV Last administered on 02/15/17 17:02; Admin Dose 4 MG; Start 01/10/17 at 15:30 IV Flush (NS 10 ml) 10 ml PRN PRN IV IV PROTOCOL; Start 01/10/17 at 20:30 Prednisone (Prednisone) 10 mg DAILY PO Last administered on 02/16/17 09:25; Admin Dose 10 MG; Start 01/15/17 at 09:00 Ergocalciferol (Drisdol) 50,000 unit We@09 PO Last administered on 02/15/17 09: 30; Admin Dose 50,000 UNIT; Start 01/25/17 at 09:00 Calcium Carbonate (Oyster Shell Calcium) 1.25 gm BID PO Last administered on 09:23; Admin Dose 1.25 GM; Start 01/24/17 at 21:00 Pantoprazole (Protonix Tab) 40 mg DAILY@06 PO Last administered on 02/16/17 05: 41; Admin Dose 40 MG; Start 01/26/17 at 06:00 Hydromorphone HCl (Dilaudid) 1 mg Q2 PRN IV PAIN Last administered on 02/16/17 16:49; Admin Dose 1 MG; Start 01/25/17 at 21:00 Atenolol (Tenormin) 25 mg BID PO Last administered on 02/16/17 09:26; Admin Dose 25 MG; Start 01/30/17 at 12:00 Enoxaparin Sodium (Lovenox) 30 mg DAILY SC Last administered on 02/16/17 09:46 ; Admin Dose 30 MG; Start 02/01/17 at 16:00 Lactobacillus Acidophilus 1 each 1 each BID PO Last administered on 02/16/17 09 :21; Admin Dose 1 EACH; Start 02/03/17 at 21:00 Colistimethate Sodium/Sodium Chloride (Coly-Mycin/NS) 100 ml @ 200 mls/hr Q12 IVPB Last administered on 02/16/17 09:27; Admin Dose 200 MLS/HR; Start at 21:00 Bisacodyl (Dulcolax Supp) 10 mg BID PRN [place] CONSTIPATION; Start 02/04/17 at 19: 30 Sodium Biphosphate/ Sodium Phosphate (Fleet Enema) 133 ml BID PRN [place] CONSTIPATION; Start 02/04/17 at 19:30 Sodium Biphosphate/ Sodium Phosphate (Fleet Enema) 133 ml BID PRN [place] CONSTIPATION; Start 02/09/17 at 10:00 Docusate Sodium (Colace) 100 mg BID PO Last administered on 02/14/17 22:35; Admin Dose 100 MG; Start 02/12/17 at 09:00 Magnesium Hydroxide (Milk Of Mag) 30 ml DAILY PO Last administered on 02/14/17 08:49; Admin Dose 30 ML; Start 02/12/17 at 09:00 Amoxicillin/ Clavulanate Potassium (Augmentin) 875 mg BID PO Last administered on 02/16/17 09:21; Admin Dose 875 MG; Start 02/13/17 at 21:00; Stop 02/20/17 at 23:00 Methadone HCl (Methadone) 10 mg Q6H PO Last administered on 02/16/17 10:28; Admin Dose 10 MG; Start 02/14/17 at 16:00 Ondansetron HCl (Zofran Inj) 4 mg Q6H PRN IV NAUSEA AND/OR VOMITING; Start 02/14 at 15:30 Potassium Chloride (Klor-Con 10) 30 meq BID PO ; Start 02/16/17 at 21:00 DEENA LOCO NP Feb 16, 2017 17:03
--- NOTE | 2017-02-16 17:21 | PN ---
Date/Time of Note Date/Time of Note DATE: 02/16/17 TIME: 17:20 Assessment/Plan VTE Prophylaxis VTE Prophylaxis Intervention: other Lines/Catheters IV [facility]ter [facility]from [facility] Urinary Cath still in place: No Assessment/Plan Chief Complaint/Hosp Course 1. pancreatitis on pain control with s/p Cholecystomy 2 s/p Cholecystomy 3 Hyponatremia 4 Acute renal injury resolved 5 Right pleural effusion with atelectasis and right lung base pneumonia, resolved. 6. Large B cell anaplastic lymphoma; status post chemo 1 month, leukopenia now neutropenic 7. 2 Hypoparathyroidism On Calcitrol and Caco3 8 Severe anemia 9 Morbid obesity 10 excisional debridement of multiple sites including large area over the lumbar and flank region, 40 cm x 15 cm x 1 cm, smaller area on the right flank region, 10 cm x 4 cm x 1 cm, and an area behind the right knee, approximately 9 cm x 7 cm x 1 cm with removal of 15 cm x 10 cm x 1 cm soft tissue using scissors to a depth of 1 cm to subcutaneous fat 11 hypokalemia 12 DIARRHEA+ PLAN PER ID SURGERY AND PAIN CONTROL [facility] megace kcl Problems: Subjective 24 Hr Interval Summary Respiratory: no complaints Cardiovascular: no complaints Gastrointestinal: diarrhea (+) Exam/Review of Systems Vital Signs Vitals Vital Signs Date Time Temp Pulse Resp B/P Pulse Ox O2 Delivery O2 Flow Rate FiO2 02/16/17 16:37 81 02/16/17 15:28 2.0 02/16/17 15:23 98.2 19 111/55 98 02/16/17 08:10 Nasal Cannula Intake and Output 02/15/17 02/15/17 02/16/17 15:00 23:00 07:00 Intake Total 1100 ml 600 ml Output Total 720 ml 850 ml Balance 380 ml -250 ml Exam Neck: supple Respiratory: clear to auscultation Cardiovascular: regular rate and rhythm Gastrointestinal: soft Musculoskeletal: nl extremities to inspection Extremities: edema (++) Results Result Diagram: 02/16/17 0643 02/16/17 0643 Results 24 hrs Laboratory Tests Test 02/16/17 06:43 White Blood Count 6.5 Red Blood Count 3.10 L Hemoglobin 8.8 L Hematocrit 27.4 L Mean Corpuscular Volume 88.4 Mean Corpuscular Hemoglobin 28.4 L Mean Corpuscular Hemoglobin Concent 32.1 Red Cell Distribution Width 18.7 H Platelet Count 236 Mean Platelet Volume 10.1 Neutrophils % 85.7 H Lymphocytes % 3.4 L Monocytes % 8.3 Eosinophils % 0.8 Basophils % 0.3 Nucleated Red Blood Cells % 0.0 Neutrophils # (Manual) 5.5 Lymphocytes # 0.2 L Monocytes # 0.5 Eosinophils # 0.1 Basophils # 0.0 Nucleated Red Blood Cells # 0.0 Sodium Level 128 L Potassium Level 3.3 L Chloride Level 95 L Carbon Dioxide Level 25 Anion Gap 11 Blood Urea Nitrogen 13 Creatinine 0.79 Glucose Level 81 Calcium Level 9.7 Total Bilirubin 0.6 Direct Bilirubin 0.00 Indirect Bilirubin 0.6 Aspartate Amino Transf (AST/SGOT) 35 Alanine Aminotransferase (ALT/SGPT) 31 Alkaline Phosphatase 146 H Total Protein 6.2 Albumin 3.2 L Globulin 3.00 Albumin/Globulin Ratio 1.06 Medications Medications Current Medications Sodium Biphosphate/ Sodium Phosphate (Fleet Enema) 133 ml DAILY PRN [place] CONSTIPATION; Start 01/09/17 at 19:30 Nitroglycerin (Nitroglycerin (Sl Tab) 0.4 Mg) 1 tab Q5M PRN SL ANGINA; Start at 19:30 Miscellaneous Information (Pending [facility] Order For Wound Care) This patient aranda... PRN PRN XX WOUND CARE; Start 01/10/17 at 03:30 Ondansetron HCl (Zofran Inj) 4 mg Q6 IV Last administered on 02/15/17 17:02; Admin Dose 4 MG; Start 01/10/17 at 15:30 IV Flush (NS 10 ml) 10 ml PRN PRN IV IV PROTOCOL; Start 01/10/17 at 20:30 Prednisone (Prednisone) 10 mg DAILY PO Last administered on 02/16/17 09:25; Admin Dose 10 MG; Start 01/15/17 at 09:00 Ergocalciferol (Drisdol) 50,000 unit We@09 PO Last administered on 02/15/17 09: 30; Admin Dose 50,000 UNIT; Start 01/25/17 at 09:00 Calcium Carbonate (Oyster Shell Calcium) 1.25 gm BID PO Last administered on 09:23; Admin Dose 1.25 GM; Start 01/24/17 at 21:00 Pantoprazole (Protonix Tab) 40 mg DAILY@06 PO Last administered on 02/16/17 05: 41; Admin Dose 40 MG; Start 01/26/17 at 06:00 Hydromorphone HCl (Dilaudid) 1 mg Q2 PRN IV PAIN Last administered on 02/16/17 16:49; Admin Dose 1 MG; Start 01/25/17 at 21:00 Atenolol (Tenormin) 25 mg BID PO Last administered on 02/16/17 09:26; Admin Dose 25 MG; Start 01/30/17 at 12:00 Enoxaparin Sodium (Lovenox) 30 mg DAILY SC Last administered on 02/16/17 09:46 ; Admin Dose 30 MG; Start 02/01/17 at 16:00 Lactobacillus Acidophilus 1 each 1 each BID PO Last administered on 02/16/17 09 :21; Admin Dose 1 EACH; Start 02/03/17 at 21:00 Colistimethate Sodium/Sodium Chloride (Coly-Mycin/NS) 100 ml @ 200 mls/hr Q12 IVPB Last administered on 02/16/17 09:27; Admin Dose 200 MLS/HR; Start at 21:00 Bisacodyl (Dulcolax Supp) 10 mg BID PRN [place] CONSTIPATION; Start 02/04/17 at 19: 30 Sodium Biphosphate/ Sodium Phosphate (Fleet Enema) 133 ml BID PRN NE CONSTIPATION; Start 02/04/17 at 19:30 Sodium Biphosphate/ Sodium Phosphate (Fleet Enema) 133 ml BID PRN NE CONSTIPATION; Start 02/09/17 at 10:00 Docusate Sodium (Colace) 100 mg BID PO Last administered on 02/14/17 22:35; Admin Dose 100 MG; Start 02/12/17 at 09:00 Magnesium Hydroxide (Milk Of Mag) 30 ml DAILY PO Last administered on 02/14/17 08:49; Admin Dose 30 ML; Start 02/12/17 at 09:00 Amoxicillin/ Clavulanate Potassium (Augmentin) 875 mg BID PO Last administered on 02/16/17 09:21; Admin Dose 875 MG; Start 02/13/17 at 21:00; Stop 02/20/17 at 23:00 Methadone HCl (Methadone) 10 mg Q6H PO Last administered on 02/16/17t 10:28; Admin Dose 10 MG; Start 02/14/17 at 16:00 Ondansetron HCl (Zofran Inj) 4 mg Q6H PRN IV NAUSEA AND/OR VOMITING; Start 02/14 at 15:30 Potassium Chloride (Klor-Con 10) 30 meq BID PO ; Start 02/16/17 at 21:00 TAWNY CELIS MD Feb 16, 2017 17:21
[2017-02-16] MEDS: MEGESTROL (40 MG/ML) 10ML CUP PO SCH (18:26)
[2017-02-16] MEDS ORDERED: SOD CHLORIDE 0.9% 100 ML ONE (21:04)
[2017-02-16] MEDS ORDERED: IOHEXOL 300MG/ML 150 ML BTL ONE (21:04)
--- NOTE | 2017-02-16 21:22 | CONS ---
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 His last chemo was a month ago and hadn't had since due to experiencing similar presenting symptoms. record from pt's oncologist Kain Wisdom - P Left flank mass, CT-guided core needle biopsies with touch imprints: Completely necrotic tissue, insufficient for pathologic evaluation. PER PT REPORT- reportedly scheduled for change in therapy due to what appears to be lack of adequate response CT ABD/PEL/CHEST:(+) multiple areas of nodules likely lymphoma, PT WANT TO GO HOME AND FAMILY ALREADY CALLED HIS PRIMARY ONCOLOGIST TO ARRANGE THE APPT JOSSELIN POST DC OK TO DC HOME WHEN CLEARED BY PRIMARY AND ALL CONSULTANTS WITH F-UP BY DR WISDOM LEUKOPENIA IN PT WITH HNL POST CHEMO AND WITH SEPTIC PICTURE MONITOR BLOOD COUNT CLOSELY POST NEUPOGEN WBC- FLUCTUATING IMPROVED ON NEUPOGEN X 2 DC NEUPOGEN PANCYTOPENIA POST CHEMO CONT TO MONITOR PRBC NEEDED PAIN DR WHITE ON THE CASE s/p Sepsis w/worsening lactic acidosis 2/2 PNA + Left flank/hip/leg decub Resolving HCAP => CT ABD/PEL/CHEST: (+) PNA * 01/24 RESPIRATORY CULTURE Final 3+ KLEB PNEUMONIAE CARBAPENEMASE ID W-UP pancreatitis. Abd Pain with N/V: 2/2 known lymphoma - pain mgmt - Anti-emetics Hyponatremia and Hypokalemia: 2/2 vomiting - NS IVF - replete K+ as needed Presumed RAMU: likely pre-renal 2/2 vomiting - cont IVF for now Problems: Consultation Date/Type/Reason Admit Date/Time Jan 09, 2017 at 19:08 Initial Consult Date 01/10/17 [facility] Referring Provider: YAO RAHMAN 24 HR Interval Summary Free Text/Dictation ALL NOTED NAD Exam/Review of Systems Vital Signs Vitals Vital Signs Date Time Temp Pulse Resp B/P Pulse Ox O2 Delivery O2 Flow Rate FiO2 02/16/17 20:28 85 02/16/17 20:05 97.4 19 107/65 98 02/16/17 15:28 2.0 02/16/17 08:10 Nasal Cannula Intake and Output 02/15/17 02/15/17 02/16/17 15:00 23:00 07:00 Intake Total 1100 ml 600 ml Output Total 720 ml 850 ml Balance 380 ml -250 ml Exam GENERAL: This is a well-developed, ill-appearing, middle-aged, man, who is awake, in no distress. HEENT: Head atraumatic, normocephalic. Sclerae anicteric. Buccal mucosa pink and dry. NECK: Supple. CHEST: Rise symmetrical. Breath sounds diminished at the bases. HEART: S1, S2. ABDOMEN: Soft, bowel sounds present. EXTREMITIES: Without cyanosis. + WOUNDS Results Result Diagram: 02/16/17 0643 02/16/17 0643 Results 24 hrs Laboratory Tests Test 02/16/17 06:43 White Blood Count 6.5 Red Blood Count 3.10 L Hemoglobin 8.8 L Hematocrit 27.4 L Mean Corpuscular Volume 88.4 Mean Corpuscular Hemoglobin 28.4 L Mean Corpuscular Hemoglobin Concent 32.1 Red Cell Distribution Width 18.7 H Platelet Count 236 Mean Platelet Volume 10.1 Neutrophils % 85.7 H Lymphocytes % 3.4 L Monocytes % 8.3 Eosinophils % 0.8 Basophils % 0.3 Nucleated Red Blood Cells % 0.0 Neutrophils # (Manual) 5.5 Lymphocytes # 0.2 L Monocytes # 0.5 Eosinophils # 0.1 Basophils # 0.0 Nucleated Red Blood Cells # 0.0 Sodium Level 128 L Potassium Level 3.3 L Chloride Level 95 L Carbon Dioxide Level 25 Anion Gap 11 Blood Urea Nitrogen 13 Creatinine 0.79 Glucose Level 81 Calcium Level 9.7 Total Bilirubin 0.6 Direct Bilirubin 0.00 Indirect Bilirubin 0.6 Aspartate Amino Transf (AST/SGOT) 35 Alanine Aminotransferase (ALT/SGPT) 31 Alkaline Phosphatase 146 H Total Protein 6.2 Albumin 3.2 L Globulin 3.00 Albumin/Globulin Ratio 1.06 Medications Medications Current Medications Sodium Biphosphate/ Sodium Phosphate (Fleet Enema) 133 ml DAILY PRN [place] CONSTIPATION; Start 01/09/17 at 19:30 Nitroglycerin (Nitroglycerin (Sl Tab) 0.4 Mg) 1 tab Q5M PRN SL ANGINA; Start at 19:30 Miscellaneous Information [facility] This patient aranda... PRN PRN XX WOUND CARE; Start 01/10/17 at 03:30 Ondansetron HCl (Zofran Inj) 4 mg Q6 IV Last administered on 02/15/17 17:02; Admin Dose 4 MG; Start 01/10/17 at 15:30 IV Flush (NS 10 ml) 10 ml PRN PRN IV IV PROTOCOL; Start 01/10/17 at 20:30 Prednisone (Prednisone) 10 mg DAILY PO Last administered on 02/16/17 09:25; Admin Dose 10 MG; Start 01/15/17 at 09:00 Ergocalciferol (Drisdol) 50,000 unit We@09 PO Last administered on 02/15/17 09: 30; Admin Dose 50,000 UNIT; Start 01/25/17 at 09:00 Calcium Carbonate (Oyster Shell Calcium) 1.25 gm BID PO Last administered on 09:23; Admin Dose 1.25 GM; Start 01/24/17 at 21:00 Pantoprazole (Protonix Tab) 40 mg DAILY@06 PO Last administered on 02/16/17 05: 41; Admin Dose 40 MG; Start 01/26/17 at 06:00 Hydromorphone HCl (Dilaudid) 1 mg Q2 PRN IV PAIN Last administered on 02/16/17 16:49; Admin Dose 1 MG; Start 01/25/17 at 21:00 Atenolol (Tenormin) 25 mg BID PO Last administered on 02/16/17 09:26; Admin Dose 25 MG; Start 01/30/17 at 12:00 Enoxaparin Sodium (Lovenox) 30 mg DAILY SC Last administered on 02/16/17 09:46 ; Admin Dose 30 MG; Start 02/01/17 at 16:00 Lactobacillus Acidophilus 1 each 1 each BID PO Last administered on 02/16/17 09 :21; Admin Dose 1 EACH; Start 02/03/17 at 21:00 Colistimethate Sodium/Sodium Chloride (Coly-Mycin/NS) 100 ml @ 200 mls/hr Q12 IVPB Last administered on 02/16/17 09:27; Admin Dose 200 MLS/HR; Start at 21:00 Bisacodyl (Dulcolax Supp) 10 mg BID PRN [place] CONSTIPATION; Start 02/04/17 at 19: 30 Sodium Biphosphate/ Sodium Phosphate (Fleet Enema) 133 ml BID PRN [place] CONSTIPATION; Start 02/04/17 at 19:30 Sodium Biphosphate/ Sodium Phosphate (Fleet Enema) 133 ml BID PRN [place] CONSTIPATION; Start 02/09/17 at 10:00 Docusate Sodium (Colace) 100 mg BID PO Last administered on 02/14/17 22:35; Admin Dose 100 MG; Start 02/12/17 at 09:00 Magnesium Hydroxide (Milk Of Mag) 30 ml DAILY PO Last administered on 02/14/17 08:49; Admin Dose 30 ML; Start 02/12/17 at 09:00 Amoxicillin/ Clavulanate Potassium (Augmentin) 875 mg BID PO Last administered on 02/16/17 09:21; Admin Dose 875 MG; Start 02/13/17 at 21:00; Stop 02/20/17 at 23:00 Methadone HCl (Methadone) 10 mg Q6H PO Last administered on 02/16/17 17:38; Admin Dose 10 MG; Start 02/14/17 at 16:00 Ondansetron HCl (Zofran Inj) 4 mg Q6H PRN IV NAUSEA AND/OR VOMITING; Start 02/14 at 15:30 Potassium Chloride (Klor-Con 10) 30 meq BID PO ; Start 02/16/17 at 21:00 Megestrol Acetate (Megace Susp) 800 mg DAILY PO Last administered on 02/16/17 18:26; Admin Dose 800 MG; Start 02/16/17 at 18:00 MOIRA BIRMINGHAM MD Feb 16, 2017 21:22
[2017-02-16] MEDS: POTASSIUM CHLORIDE (SR) 10 MEQ TAB PO SCH (22:14)
[2017-02-17] VITALS (11 sets, daily range): BP systolic 108–123; BP diastolic 58–68; PULSE 71–99; RESP 18
[2017-02-17] MEDS: HYDROmorphONE 1 MG/ML SYG IV PRN ×5 (02:44→23:56)
--- NOTE | 2017-02-17 02:47 | RADRPT ---
PROCEDURE: CT CHEST ABDOMEN AND PELVIS WITH CONTRAST: CLINICAL INDICATION: 32 years of age male, abdominal pain and fevers COMPARISON: CT chest January 11, [address] abdomen pelvis February 02, 2017 TECHNIQUE: CT of the chest, abdomen, and pelvis was performed following administration of 100 mL IV Omnipaque-300. Oral contrast was not administered prior to the examination. Coronal and sagittal re formatted images were obtained from the axial source images. Images were reviewed on a high-resoluti on PACS workstation. Dose information: Based on a 32 cm phantom, the estimated radiation dose (CTDIvol mGy) for each seri es in this exam is 17.4 19.7. The estimated cumulative dose (DLP mGy-cm) is 2982.14. One or more of the following dose reduction techniques were used: - Automated exposure control. - Adjustment of the mA and/or kV according to patient size. - Use of iterative reconstruction technique. FINDINGS: CHEST: Medical devices: None. Thyroid: Normal. Lymph nodes: Small paratracheal lymph nodes at the thoracic inlet have decreased in size since prior exam and are likely reactive. No other lymphadenopathy. Vasculature: Aorta and main pulmonary artery diameters are within normal range. Negative for evidenc e of central PE. Heart: Normal. No pericardial effusion. Other mediastinal structures: Normal. Lung parenchyma and pleura: Multi focal lung consolidation that is greater on the right has decrease d since prior exam in keeping with improving multifocal pneumonia. There is multi focal consolidatio n and ground glass opacity in all lobes of the right lung. There are small centrilobular nodules and areas of ground-glass opacity in the left lung. Previously identified small right pleural effusion has resolved. Airways: Normal. Chest wall: Normal. ABDOMEN/PELVIS: Liver: Hepatomegaly has decreased since prior exam. Liver measures 21 cm in length and previously me asured 26 cm in length. There is ill-defined hypodensity in the posterior right hepatic lobe that is decreased from the prior exam. There are more nodular areas of hypodensity in the inferior right lo be segment 6 measuring up to 1.5 cm that are also decreased. This may indicate a focal fatty infiltr ation. Portal veins, splenic vein and SMV are patent. Hepatic veins are patent. Gallbladder: In the interval since the prior exam, a percutaneous cholecystostomy pigtail catheter h as been placed. Pigtail loop is formed in the gall bladder fundus. Gallbladder is collapsed. Negativ e for complications. Bile ducts: No intrahepatic or extrahepatic biliary duct dilatation. Spleen: Splenomegaly measuring 15.2 cm in length has decreased and previously measured 16.7 cm in [facility]. There is a 1.6 cm indeterminate hypodensity in the spleen that was not present previously (09/10 01). This could represent a hemangioma that is more conspicuous due to the phase of contrast injecti on. Pancreas: Pancreas is enlarged with ill-defined acute peripancreatic collections surrounding the ent marilyn pancreas and also extending into the gastrosplenic ligament, the gastohepatic and hepaticoduoden al ligaments, the left greater than right anterior pararenal spaces as well as the small bowel mese ntery. There is also involvement of the pancreaticoduodenal groove. Peripancreatic collections are m ildly decreased in size from prior exam. Dominant collection inferior to the pancreas in the left an terior pararenal space measures 7.7 x 11.7 cm and previously measured 8.5 x 12.6 cm (602/46). There is nodularity along the inter fascial planes extending into the right lower quadrant and in the grea ter omentum in the right abdomen that is mildly improved and may represent fat necrosis. The pancrea tic parenchyma enhances without evidence of necrosis. Pancreatic vasculature is patent. No aneurysms are identified. Adrenal glands: Normal. Kidneys and ureters: Right renal parenchymal hypodensities are unchanged likely represent cysts. Bot h kidneys enhance normally. Negative for urinary calculi or hydronephrosis. Gastrointestinal tract: Bowel loops are decompressed. The acute peripancreatic collections marginate the gastric fundus and the entire length of the duodenum. Duodenum is collapsed. There is nodularit y related to pancreatitis marginating the ascending colon that is collapsed. Appendix: Not visualized Bladder: Normal. Pelvic Organs: Prostate gland and seminal vesicles are unremarkable. Aorta and IVC: Aorta is normal caliber. Infrarenal IVC and iliac veins are not well opacified with c ontrast due to phase of contrast injection. Lymph nodes: Normal. Peritoneal cavity: No free fluid or free intraperitoneal air. Abdominal wall: Indirect fat containing right inguinal hernia. Mild body wall edema. There are more organized fluid collections deep to the skin in the lower back in the midline also extending lateral to the left hip pain that were also present previously. BONES: Musculoskeletal: No suspicious bone lesions. IMPRESSION: Multi focal lung consolidation and ground glass opacity in keeping with multifocal pneumonia has imp roved since January 11, 2017 but has not resolved. The right lung is affected to a greater degree than left. Acute edematous pancreatitis with multiple acute peripancreatic collections around the entire pancre as and also extending into the mesentery, gastric ligaments, and bilateral anterior pararenal spaces are mildly decreased in size from February 02, 2017. Nodularity extending along interfascial planes in the right lower quadrant and in the right greater omentum are also mildly improved and may repres ent fat necrosis. Hepatosplenomegaly is decreased from prior exam. Ill-defined hypodensities within the posterior righ t hepatic lobe are decreased and may represent multi focal fatty infiltration. A 1.6 cm hypodensity in the spleen is more conspicuous. Recommend attention on follow-up imaging. Status post placement of a percutaneous cholecystostomy catheter that is in good position. The gallb ladder is decompressed. Body wall edema with more organized fluid deep to the skin in the lower back and overlying the left hip is similar to prior exam. The organized fluid collections deep to the skin appear similar to the collections in the abdominal cavity and may reflect fat necrosis related to pancreatitis. RPTAT: HCTS Physician Bria Date Time Electronically viewed and signed by Physician Bria on 02/17/2017 02:47 CS/
[2017-02-17] MEDS: METHADONE 10 MG TAB PO SCH ×4 (04:10→21:04)
[2017-02-17] MEDS: PANTOPRAZOLE (EC) 40 MG TAB PO SCH (05:26)
[2017-02-17] MEDS: ONDANSETRON 4 MG INJ IV SCH ×5 (05:27→23:59)
[2017-02-17 07:14] LABS: ABNORMAL IP MESSAGE 1; BASOPHILS % 0.3 % (0.0-2.0); EOSINOPHILS % 0.5 % (0.0-7.0); HEMATOCRIT 28.1 % (42.0-52.0); HEMOGLOBIN 9.4 g/dl (14.0-18.0); LYMPHOCYTES # 0.2 10^3/ul (0.8-2.9); LYMPHOCYTES % 2.9 % (15.0-51.0); MEAN CORPUSCULAR HGB CONC 33.5 g/dl (32.0-37.0); MEAN CORPUSCULAR VOLUME 89.8 fl (82.0-101.0); MEAN PLATELET VOLUME 9.7 fl (7.4-10.4); MONOCYTE # 0.6 10^3/ul (0.3-0.9); NEUTROPHILS % 86.5 % (39.0-77.0); PLATELET COUNT 274 10^3/UL (140-415); POSITIVE DIFF @See below; RED BLOOD COUNT 3.13 10^6/ul (4.70-6.10); RED CELL DISTRIBUTION WIDTH 18.8 % (11.5-14.5); WHITE BLOOD COUNT 6.6 10^3/ul (4.8-10.8)
[2017-02-17] MEDS: MAGNESIUM HYDROXIDE 30ML CUP PO SCH (09:00)
[2017-02-17] MEDS: DOCUSATE SODIUM 100 MG CAP PO SCH ×2 (09:00→21:00)
[2017-02-17] MEDS: AMOXICILLIN/CLAV 875 MG TAB PO SCH ×2 (09:27→21:04)
[2017-02-17] MEDS: CALCIUM CARBONATE 1.25 GM TAB PO SCH ×2 (09:27→21:04)
[2017-02-17] MEDS: L ACIDOPHIL/B LACTIS/B LONGUM CAPSULE PO SCH ×2 (09:28→21:04)
[2017-02-17] MEDS: POTASSIUM CHLORIDE (SR) 10 MEQ TAB PO SCH ×2 (09:28→21:04)
[2017-02-17] MEDS: ATENOLOL 25 MG TAB PO SCH ×2 (09:29→21:05)
[2017-02-17] MEDS: predniSONE 20 MG TAB PO SCH (09:31)
[2017-02-17] MEDS: MEGESTROL (40 MG/ML) 10ML CUP PO SCH (09:32)
[2017-02-17] MEDS: ENOXAPARIN 30 MG/0.3 ML SYG SC SCH (09:41)
[2017-02-17] MEDS: COLISTIMETHATE 150 MG in SOD CHLORIDE 0.9% 100 ML IVPB SCH ×2 (10:39→21:03)
--- NOTE | 2017-02-17 12:53 | PN ---
Date/Time of Note Date/Time of Note DATE: 02/17/17 TIME: 12:52 Assessment/Plan VTE Prophylaxis VTE Prophylaxis Intervention: ambulation Lines/Catheters IV Catheter Type (from [facility]): [facility] Urinary Cath still in place: No Assessment/Plan Chief Complaint/Hosp Course 1. Acute renal injury, resolving 2. Right pleural effusion with atelectasis and right lung base pneumonia, resolved. 3. Large B cell anaplastic lymphoma; status post chemo 1 month 4. Sepsis resolving 5. Electrolyte imbalance, better 6. Severe anemia 7. Morbid obesity 8. Skin wounds, sp debridement Problems: Assessment/Plan 1. Continue current regime 2. morning labs Subjective 24 Hr Interval Summary Constitutional: improved, no complaints Exam/Review of Systems Vital Signs Vitals Vital Signs Date Time Temp Pulse Resp B/P Pulse Ox O2 Delivery O2 Flow Rate FiO2 02/17/17 12:20 99 02/17/17 11:07 98.5 18 118/68 100 02/17/17 04:00 Nasal Cannula 2.0 Intake and Output 02/16/17 02/16/17 02/17/17 14:59 22:59 06:59 Intake Total 900 ml 500 ml Output Total 150 ml 2375 ml 1010 ml Balance -150 ml -1475 ml -510 ml Exam Constitutional: alert, oriented Eyes: other (pale) Respiratory: clear to auscultation Cardiovascular: regular rate and rhythm Results Result Diagram: 02/17/17 0647 02/16/17 0643 Results 24 hrs Laboratory Tests Test 02/17/17 06:47 White Blood Count 6.6 Red Blood Count 3.13 L Hemoglobin 9.4 L Hematocrit 28.1 L Mean Corpuscular Volume 89.8 Mean Corpuscular Hemoglobin 30.0 Mean Corpuscular Hemoglobin Concent 33.5 Red Cell Distribution Width 18.8 H Platelet Count 274 Mean Platelet Volume 9.7 Neutrophils % 86.5 H Lymphocytes % 2.9 L Monocytes % 9.0 Eosinophils % 0.5 Basophils % 0.3 Nucleated Red Blood Cells % 0.0 Neutrophils # (Manual) 5.7 Lymphocytes # 0.2 L Monocytes # 0.6 Eosinophils # 0.0 Basophils # 0.0 Nucleated Red Blood Cells # 0.0 Medications Medications Current Medications Sodium Biphosphate/ Sodium Phosphate (Fleet Enema) 133 ml DAILY PRN [place] CONSTIPATION; Start 01/09/17 at 19:30 Nitroglycerin (Nitroglycerin (Sl Tab) 0.4 Mg) 1 tab Q5M PRN SL ANGINA; Start at 19:30 Miscellaneous Information (Pending Santyl Order For Wound Care) This patient aranda... PRN PRN XX WOUND CARE; Start 01/10/17 at 03:30 Ondansetron HCl (Zofran Inj) 4 mg Q6 IV Last administered on 02/15/17 17:02; Admin Dose 4 MG; Start 01/10/17 at 15:30 IV Flush (NS 10 ml) 10 ml PRN PRN IV IV PROTOCOL; Start 01/10/17 at 20:30 Prednisone (Prednisone) 10 mg DAILY PO Last administered on 02/17/17 09:31; Admin Dose 10 MG; Start 01/15/17 at 09:00 Ergocalciferol (Drisdol) 50,000 unit We@09 PO Last administered on 02/15/17 09: 30; Admin Dose 50,000 UNIT; Start 01/25/17 at 09:00 Calcium Carbonate (Oyster Shell Calcium) 1.25 gm BID PO Last administered on 09:27; Admin Dose 1.25 GM; Start 01/24/17 at 21:00 Pantoprazole (Protonix Tab) 40 mg DAILY@06 PO Last administered on 02/17/17 05: 26; Admin Dose 40 MG; Start 01/26/17 at 06:00 Hydromorphone HCl (Dilaudid) 1 mg Q2 PRN IV PAIN Last administered on 02/17/17 11:24; Admin Dose 1 MG; Start 01/25/17 at 21:00 Atenolol (Tenormin) 25 mg BID PO Last administered on 02/17/17 09:29; Admin Dose 25 MG; Start 01/30/17 at 12:00 Enoxaparin Sodium (Lovenox) 30 mg DAILY SC Last administered on 02/17/17 09:41 ; Admin Dose 30 MG; Start 02/01/17 at 16:00 Lactobacillus Acidophilus 1 each 1 each BID PO Last administered on 02/17/17 09 :28; Admin Dose 1 EACH; Start 02/03/17 at 21:00 Colistimethate Sodium/Sodium Chloride (Coly-Mycin/NS) 100 ml @ 200 mls/hr Q12 IVPB Last administered on 02/17/17 10:39; Admin Dose 200 MLS/HR; Start at 21:00 Bisacodyl (Dulcolax Supp) 10 mg BID PRN [place] CONSTIPATION; Start 02/04/17 at 19: 30 Sodium Biphosphate/ Sodium Phosphate (Fleet Enema) 133 ml BID PRN [place] CONSTIPATION; Start 02/04/17 at 19:30 Sodium Biphosphate/ Sodium Phosphate (Fleet Enema) 133 ml BID PRN [place] CONSTIPATION; Start 02/09/17 at 10:00 Docusate Sodium (Colace) 100 mg BID PO Last administered on 02/16/17 22:14; Admin Dose 100 MG; Start 02/12/17 at 09:00 Magnesium Hydroxide (Milk Of Mag) 30 ml DAILY PO Last administered on 02/14/17 08:49; Admin Dose 30 ML; Start 02/12/17 at 09:00 Amoxicillin/ Clavulanate Potassium (Augmentin) 875 mg BID PO Last administered on 02/17/17 09:27; Admin Dose 875 MG; Start 02/13/17 at 21:00; Stop 02/20/17 at 23:00 Methadone HCl (Methadone) 10 mg Q6H PO Last administered on 02/17/17 09:28; Admin Dose 10 MG; Start 02/14/17 at 16:00 Ondansetron HCl (Zofran Inj) 4 mg Q6H PRN IV NAUSEA AND/OR VOMITING; Start 02/14 at 15:30 Potassium Chloride (Klor-Con 10) 30 meq BID PO Last administered on 02/17/17 09 :28; Admin Dose 30 MEQ; Start 02/16/17 at 21:00 Megestrol Acetate (Megace Susp) 800 mg DAILY PO Last administered on 02/17/17 09:32; Admin Dose 800 MG; Start 02/16/17 at 18:00 Potassium Chloride (Potassium Chloride Pwd/Soln) 40 meq ONCE ONCE PO ; Start at 13:00; Stop 02/17/17 at 13:01; Status MOISES PALACIO Feb 17, 2017 12:53
[2017-02-17] MEDS ORDERED: POTASSIUM CHLORIDE 20 MEQ POWDER FOR ORAL SOLN PO ONE (13:00)
--- NOTE | 2017-02-17 13:55 | CONS ---
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 His last chemo was a month ago and hadn't had since due to experiencing similar presenting symptoms. record from pt's oncologist Kain Wisdom - P Left flank mass, CT-guided core needle biopsies with touch imprints: Completely necrotic tissue, insufficient for pathologic evaluation. PER PT REPORT- reportedly scheduled for change in therapy due to what appears to be lack of adequate response CT ABD/PEL/CHEST:(+) multiple areas of nodules likely lymphoma, PT WANT TO GO HOME AND FAMILY ALREADY CALLED HIS PRIMARY ONCOLOGIST TO ARRANGE THE APPT JOSSELIN POST DC OK TO DC HOME WHEN CLEARED BY PRIMARY AND ALL CONSULTANTS WITH F-UP BY DR WISDOM LEUKOPENIA IN PT WITH HNL POST CHEMO AND WITH SEPTIC PICTURE MONITOR BLOOD COUNT CLOSELY POST NEUPOGEN WBC- FLUCTUATING IMPROVED ON NEUPOGEN X 2 DC NEUPOGEN PANCYTOPENIA POST CHEMO CONT TO MONITOR PRBC NEEDED PAIN DR WHITE ON THE CASE s/p Sepsis w/worsening lactic acidosis 2/2 PNA + Left flank/hip/leg decub Resolving HCAP => CT ABD/PEL/CHEST: (+) PNA * 01/24 RESPIRATORY CULTURE Final 3+ KLEB PNEUMONIAE CARBAPENEMASE ID W-UP pancreatitis. Abd Pain with N/V: 2/2 known lymphoma - pain mgmt - Anti-emetics Hyponatremia and Hypokalemia: 2/2 vomiting - NS IVF - replete K+ as needed Presumed RAMU: likely pre-renal 2/2 vomiting - cont IVF for now Problems: Consultation Date/Type/Reason Admit Date/Time Jan 09, 2017 at 19:08 Initial Consult Date 01/10/17 Type of Consultation: [facility] Referring Provider: YAO RAHMAN 24 HR Interval Summary Free Text/Dictation ALL NOTED NAD Exam/Review of Systems Vital Signs Vitals Vital Signs Date Time Temp Pulse Resp B/P Pulse Ox O2 Delivery O2 Flow Rate FiO2 02/17/17 12:20 99 02/17/17 11:07 98.5 18 118/68 100 02/17/17 04:00 Nasal Cannula 2.0 Intake and Output 02/16/17 02/16/17 02/17/17 15:00 23:00 07:00 Intake Total 900 ml 500 ml Output Total 150 ml 2375 ml 1010 ml Balance -150 ml -1475 ml -510 ml Exam GENERAL: This is a well-developed, ill-appearing, middle-aged, man, who is awake, in no distress. HEENT: Head atraumatic, normocephalic. Sclerae anicteric. Buccal mucosa pink and dry. NECK: Supple. CHEST: Rise symmetrical. Breath sounds diminished at the bases. HEART: S1, S2. ABDOMEN: Soft, bowel sounds present. EXTREMITIES: Without cyanosis. + WOUNDS Results Result Diagram: 02/17/17 0647 02/16/17 0643 Results 24 hrs Laboratory Tests Test 02/17/17 06:47 White Blood Count 6.6 Red Blood Count 3.13 L Hemoglobin 9.4 L Hematocrit 28.1 L Mean Corpuscular Volume 89.8 Mean Corpuscular Hemoglobin 30.0 Mean Corpuscular Hemoglobin Concent 33.5 Red Cell Distribution Width 18.8 H Platelet Count 274 Mean Platelet Volume 9.7 Neutrophils % 86.5 H Lymphocytes % 2.9 L Monocytes % 9.0 Eosinophils % 0.5 Basophils % 0.3 Nucleated Red Blood Cells % 0.0 Neutrophils # (Manual) 5.7 Lymphocytes # 0.2 L Monocytes # 0.6 Eosinophils # 0.0 Basophils # 0.0 Nucleated Red Blood Cells # 0.0 Medications Medications Current Medications Sodium Biphosphate/ Sodium Phosphate (Fleet Enema) 133 ml DAILY PRN [place] CONSTIPATION; Start 01/09/17 at 19:30 Nitroglycerin (Nitroglycerin (Sl Tab) 0.4 Mg) 1 tab Q5M PRN SL ANGINA; Start at 19:30 Miscellaneous Information (Pending Santyl Order For Wound Care) This patient aranda... PRN PRN XX WOUND CARE; Start 01/10/17 at 03:30 Ondansetron HCl (Zofran Inj) 4 mg Q6 IV Last administered on 02/15/17 17:02; Admin Dose 4 MG; Start 01/10/17 at 15:30 IV Flush (NS 10 ml) 10 ml PRN PRN IV IV PROTOCOL; Start 01/10/17 at 20:30 Prednisone (Prednisone) 10 mg DAILY PO Last administered on 02/17/17 09:31; Admin Dose 10 MG; Start 01/15/17 at 09:00 Ergocalciferol (Drisdol) 50,000 unit We@09 PO Last administered on 02/15/17 09: 30; Admin Dose 50,000 UNIT; Start 01/25/17 at 09:00 Calcium Carbonate (Oyster Shell Calcium) 1.25 gm BID PO Last administered on 09:27; Admin Dose 1.25 GM; Start 01/24/17 at 21:00 Pantoprazole (Protonix Tab) 40 mg DAILY@06 PO Last administered on 02/17/17 05: 26; Admin Dose 40 MG; Start 01/26/17 at 06:00 Hydromorphone HCl (Dilaudid) 1 mg Q2 PRN IV PAIN Last administered on 02/17/17 11:24; Admin Dose 1 MG; Start 01/25/17 at 21:00 Atenolol (Tenormin) 25 mg BID PO Last administered on 02/17/17 09:29; Admin Dose 25 MG; Start 01/30/17 at 12:00 Enoxaparin Sodium (Lovenox) 30 mg DAILY SC Last administered on 02/17/17 09:41 ; Admin Dose 30 MG; Start 02/01/17 at 16:00 Lactobacillus Acidophilus 1 each 1 each BID PO Last administered on 02/17/17 09 :28; Admin Dose 1 EACH; Start 02/03/17 at 21:00 Colistimethate Sodium/Sodium Chloride (Coly-Mycin/NS) 100 ml @ 200 mls/hr Q12 IVPB Last administered on 02/17/17 10:39; Admin Dose 200 MLS/HR; Start at 21:00 Bisacodyl (Dulcolax Supp) 10 mg BID PRN [place] CONSTIPATION; Start 02/04/17 at 19: 30 Sodium Biphosphate/ Sodium Phosphate (Fleet Enema) 133 ml BID PRN [place] CONSTIPATION; Start 02/04/17 at 19:30 Sodium Biphosphate/ Sodium Phosphate (Fleet Enema) 133 ml BID PRN [place] CONSTIPATION; Start 02/09/17 at 10:00 Docusate Sodium (Colace) 100 mg BID PO Last administered on 02/16/17 22:14; Admin Dose 100 MG; Start 02/12/17 at 09:00 Magnesium Hydroxide (Milk Of Mag) 30 ml DAILY PO Last administered on 02/14/17 08:49; Admin Dose 30 ML; Start 02/12/17 at 09:00 Amoxicillin/ Clavulanate Potassium (Augmentin) 875 mg BID PO Last administered on 02/17/17 09:27; Admin Dose 875 MG; Start 02/13/17 at 21:00; Stop 02/20/17 at 23:00 Methadone HCl (Methadone) 10 mg Q6H PO Last administered on 02/17/17 09:28; Admin Dose 10 MG; Start 02/14/17 at 16:00 Ondansetron HCl (Zofran Inj) 4 mg Q6H PRN IV NAUSEA AND/OR VOMITING; Start 02/14 at 15:30 Potassium Chloride (Klor-Con 10) 30 meq BID PO Last administered on 02/17/17 09 :28; Admin Dose 30 MEQ; Start 02/16/17 at 21:00 Megestrol Acetate (Megace Susp) 800 mg DAILY PO Last administered on 02/17/17 09:32; Admin Dose 800 MG; Start 02/16/17 at 18:00 MOIRA BIRMINGHAM MD Feb 17, 2017 13:55
--- NOTE | 2017-02-17 14:34 | CONS ---
Date/Time of Note Date/Time of Note DATE: 02/17/17 TIME: 14:26 Assessment/Plan Assessment/Plan Chief Complaint/Hosp Course IMP: 1.Tachycardia- S Tach-NL Ft4. Likely driven by fevers/NL EF by echo this admit. Currently improved with defevescence of fevers 2.lymphoma 3.HTN 4.anemia 5.obesity 6.Hyponatremia-recurrent 7.Pancreatitis-improved 8. Fevers 9. Cholecystitis s/p drain placement Recc: -Tele -serial ecg's -continue BB with currently reasonable HR control -Continue abx's and f/u cx data -Pain control -ongoing onc eval and f/u Problems: Consultation Date/Type/Reason Admit Date/Time Jan 09, 2017 at 19:08 Initial Consult Date 01/15/17 Type of Consultation: cardiology Reason for Consultation tachycardia Referring Provider: YAO RAHMAN Exam/Review of Systems Vital Signs Vitals Vital Signs Date Time Temp Pulse Resp B/P Pulse Ox O2 Delivery O2 Flow Rate FiO2 02/17/17 12:20 99 02/17/17 11:07 98.5 18 118/68 100 02/17/17 04:00 Nasal Cannula 2.0 Intake and Output 02/16/17 02/16/17 02/17/17 14:59 22:59 06:59 Intake Total 900 ml 500 ml Output Total 150 ml 2375 ml 1010 ml Balance -150 ml -1475 ml -510 ml Exam Review of Systems: CONSTITUTIONAL: No fevers, chills. PULMONARY: No sob CARDIOVASCULAR: No chest pain/palpitations GASTROINTESTINAL: No nausea/vomiting. GENITOURINARY: No hematuria/dysuria. MUSCULOSKELETAL: No myagias/arthalgias. PSYCHIATRIC: The patient denies depression. NEUROLOGIC: No weakness Constitutional: other (sleeping) Head: normocephalic ENMT: mucosa pink and moist Neck: jvd (8 cm water), supple Respiratory: diminished breath sounds Cardiovascular: regular rate and rhythm Gastrointestinal: non-tender, soft Musculoskeletal: muscle tone (normal) Extremities: other (No focal deficits) Results Result Diagram: 02/17/17 0647 02/16/17 0643 Results 24 hrs Laboratory Tests Test 02/17/17 06:47 White Blood Count 6.6 Red Blood Count 3.13 L Hemoglobin 9.4 L Hematocrit 28.1 L Mean Corpuscular Volume 89.8 Mean Corpuscular Hemoglobin 30.0 Mean Corpuscular Hemoglobin Concent 33.5 Red Cell Distribution Width 18.8 H Platelet Count 274 Mean Platelet Volume 9.7 Neutrophils % 86.5 H Lymphocytes % 2.9 L Monocytes % 9.0 Eosinophils % 0.5 Basophils % 0.3 Nucleated Red Blood Cells % 0.0 Neutrophils # (Manual) 5.7 Lymphocytes # 0.2 L Monocytes # 0.6 Eosinophils # 0.0 Basophils # 0.0 Nucleated Red Blood Cells # 0.0 Medications Medications Current Medications Sodium Biphosphate/ Sodium Phosphate (Fleet Enema) 133 ml DAILY PRN [place] CONSTIPATION; Start 01/09/17 at 19:30 Nitroglycerin (Nitroglycerin (Sl Tab) 0.4 Mg) 1 tab Q5M PRN SL ANGINA; Start at 19:30 Miscellaneous Information (Pending Santyl Order For Wound Care) This patient aranda... PRN PRN XX WOUND CARE; Start 01/10/17 at 03:30 Ondansetron HCl (Zofran Inj) 4 mg Q6 IV Last administered on 02/15/17 17:02; Admin Dose 4 MG; Start 01/10/17 at 15:30 IV Flush (NS 10 ml) 10 ml PRN PRN IV IV PROTOCOL; Start 01/10/17 at 20:30 Prednisone (Prednisone) 10 mg DAILY PO Last administered on 02/17/17 09:31; Admin Dose 10 MG; Start 01/15/17 at 09:00 Ergocalciferol (Drisdol) 50,000 unit We@09 PO Last administered on 02/15/17 09: 30; Admin Dose 50,000 UNIT; Start 01/25/17 at 09:00 Calcium Carbonate (Oyster Shell Calcium) 1.25 gm BID PO Last administered on 09:27; Admin Dose 1.25 GM; Start 01/24/17 at 21:00 Pantoprazole (Protonix Tab) 40 mg DAILY@06 PO Last administered on 02/17/17 05: 26; Admin Dose 40 MG; Start 01/26/17 at 06:00 Hydromorphone HCl (Dilaudid) 1 mg Q2 PRN IV PAIN Last administered on 02/17/17 11:24; Admin Dose 1 MG; Start 01/25/17 at 21:00 Atenolol (Tenormin) 25 mg BID PO Last administered on 02/17/17 09:29; Admin Dose 25 MG; Start 01/30/17 at 12:00 Enoxaparin Sodium (Lovenox) 30 mg DAILY SC Last administered on 02/17/17 09:41 ; Admin Dose 30 MG; Start 02/01/17 at 16:00 Lactobacillus Acidophilus 1 each 1 each BID PO Last administered on 02/17/17 09 :28; Admin Dose 1 EACH; Start 02/03/17 at 21:00 Colistimethate Sodium/Sodium Chloride (Coly-Mycin/NS) 100 ml @ 200 mls/hr Q12 IVPB Last administered on 02/17/17 10:39; Admin Dose 200 MLS/HR; Start at 21:00 Bisacodyl (Dulcolax Supp) 10 mg BID PRN [place] CONSTIPATION; Start 02/04/17 at 19: 30 Sodium Biphosphate/ Sodium Phosphate (Fleet Enema) 133 ml BID PRN [place] CONSTIPATION; Start 02/04/17 at 19:30 Sodium Biphosphate/ Sodium Phosphate (Fleet Enema) 133 ml BID PRN [place] CONSTIPATION; Start 02/09/17 at 10:00 Docusate Sodium (Colace) 100 mg BID PO Last administered on 02/16/17 22:14; Admin Dose 100 MG; Start 02/12/17 at 09:00 Magnesium Hydroxide (Milk Of Mag) 30 ml DAILY PO Last administered on 02/14/17 08:49; Admin Dose 30 ML; Start 02/12/17 at 09:00 Amoxicillin/ Clavulanate Potassium (Augmentin) 875 mg BID PO Last administered on 02/17/17 09:27; Admin Dose 875 MG; Start 02/13/17 at 21:00; Stop 02/20/17 at 23:00 Methadone HCl (Methadone) 10 mg Q6H PO Last administered on 02/17/17 09:28; Admin Dose 10 MG; Start 02/14/17 at 16:00 Ondansetron HCl (Zofran Inj) 4 mg Q6H PRN IV NAUSEA AND/OR VOMITING; Start 02/14 at 15:30 Potassium Chloride (Klor-Con 10) 30 meq BID PO Last administered on 02/17/17 09 :28; Admin Dose 30 MEQ; Start 02/16/17 at 21:00 Megestrol Acetate (Megace Susp) 800 mg DAILY PO Last administered on 02/17/17 09:32; Admin Dose 800 MG; Start 02/16/17 at 18:00 LARRY SANTANA Feb 17, 2017 14:34
--- NOTE | 2017-02-17 14:58 | PN ---
Date/Time of Note Date/Time of Note DATE: 02/17/17 TIME: 14:54 Assessment/Plan Lines/Catheters IV Catheter Type (from Nrsg): Saline Lock [place] in Place (from Nrsg): No Assessment/Plan Assessment/Plan [facility] Progress Note Date of Service: 02/17/2017 Place of service: [facility] 5W tele Today's Assessment & Plan: Overall stable. CT scan demonstrated various areas of malignancy in his lungs and significant pancreatitis present within his abdomen explaining his abdominal pain. Gallbladder is nice and decompressed and is being adequately controlled with his drain. The areas that were debrided and the back appeared to be at least acceptable for now although, I will have to take a look at his back early next week. I do not believe that the patient is stable enough to discharge home and there is significant high risk for the patient to return since the pancreatitis on the CT scan appears to be severe. There is no indication of acute surgical intervention, but the patient can certainly benefit from transfer to a tertiary care center (I suggest getting patient connected to Dr. Dayday Martinez at [facility] or Dr. Nehemias Talavera at [facility]) . Explained to patient and answered all questions. With above assessment, I've recommended the followin. Continue current cares 2. Keep in-house 3. Continue attempt at transferring patient to 1 of the above physicians 4. Operative exam and possible further debridement of the sacral decubitus ulcer early next week Also see below for previous plans that are applicable today: 1. Continue aggressive medical management 2. Cont diet as tolerated 3. Follow GIs recommendations 4. If it would make a difference in management, may consider percutaneous biopsy of segment 6 area of abnormality in the liver 5. Multidisciplinary tumor board presentation and discussions 6. Consideration for clinical trials once improved medically 7. LFT's, amylase and lipase checks tomorrow with labs 8. Will likely benefit from aggressive bowel regimen (some of the pain likely from constipation) 9. Percutaneous cholecystostomy drain care teachings to patient and family 10. Aggressive wound care Thank you very much for having me involved in the care of this very pleasant patient and wonderful family. If you have any questions, please feel free to contact me at [phone]. Nature of presenting problem: High severity Please note that, given the extensive number of diagnoses or management options , the extensive amount and/or complexity of data needed to be reviewed, and high risk of complications and/or morbidity or mortality, this qualifies as high complexity type of decision-making. Disclaimer: Inadvertent spelling and grammatical errors are likely due to EHR/ dictation software use and do not reflect on the quality of delivered patient care. Also, please note that the electronic time recorded on this node does not necessarily reflect the actual time of the visit. 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 HIDA scan positive 01/28/2017. Status post percutaneous cholecystostomy drain placement 02/02/2017. Comorbidities: 1. Multiple superficial wounds on the back and flank region and behind the right knee. S/P excisional debridement of multiple sites including large area over the lumbar and flank region, 40 cm x 15 cm x 1 cm, smaller area on the right flank region, 10 cm x 4 cm x 1 cm, and an area behind the right knee, approximately 9 cm x 7 cm x 1 cm with removal of 15 cm x 10 cm x 1 cm soft tissue using scissors to a depth of 1 cm to subcutaneous fat at [facility] 02/09/17 2. BMI 40.7 3. Small right pleural effusion with atelectasis and right lung base pneumonia. 4. Large B cell anaplastic lymphoma; status post chemo 1 month prior to presentation 5. Sepsis 6. Hyponatremia 7. Hypokalemia 8. Acute renal injury 9. Status post percutaneous cholecystostomy drain placement 02/02/2017 Subjective: No major events or complaints overnight; feels okay; would like to home; no significant abdominal pain today; slight back pain in the surgical area; no significant reported nausea or vomiting and no major diarrhea; no sob or cp; + flatus; + BM; minimal to no activity. Objective: Vitals: See below I's & O's: See below Exam: GENERAL: On exam, the patient was lying in bed and appeared to be comfortable and in no acute distress. ABDOMEN: Soft, minimal to no tenderness and nondistended. There are no peritoneal signs or guarding. Perc GB drain with thick green bilious output. SKIN: Skin appears to be pink and feels warm to touch. NEUROLOGIC: Patient is awake, alert, and follows commands appropriately. Labs: See below Exam/Review of Systems Vital Signs Vitals Vital Signs Date Time Temp Pulse Resp B/P Pulse Ox O2 Delivery O2 Flow Rate FiO2 02/17/17 12:20 99 02/17/17 11:07 98.5 18 118/68 100 02/17/17 04:00 Nasal Cannula 2.0 Intake and Output 02/16/17 02/16/17 02/17/17 15:00 23:00 07:00 Intake Total 900 ml 500 ml Output Total 150 ml 2375 ml 1010 ml Balance -150 ml -1475 ml -510 ml Results Result Diagram: 02/17/17 0647 02/16/17 0643 LENKA HERNANDEZ M.D. Feb 17, 2017 14:58
--- NOTE | 2017-02-17 19:07 | PN ---
DATE: 02/17/2017 SUBJECTIVE DATA: No acute changes overnight. The patient is alert, feels good, looks comfortable. Wants to go home. OBJECTIVE DATA: VITAL SIGNS: The patient is afebrile. Temperature 98.5, pulse 96, respirations 18, blood pressure 118/68, and saturation 100 percent. LABORATORY DATA: WBC 6.6, H and H 9.4 and 28.1, platelets 274, neutrophils 86.5, BUN 13, and creatinine 0.79. MICROBIOLOGY: Repeat blood cultures pending. ANTIMICROBIAL: Colistin and Augmentin. INDWELLING: Right abdominal cholecystostomy catheter. MICROBIOLOGY: Blood culture on February 06 grew coag-negative Staph and carbapenem resistant coag pneumonia. Wound culture on admission grew Pseudomonas, Klebsiella pneumoniae, carbapenem resistant Enterococcus species. DIAGNOSTICS: The patient had repeat CT of the chest and abdomen that revealed mild focal lung consolidation and ground-glass opacity in keeping with multifocal pneumonia, improved but not resolved. Acute edematous pancreatitis with multiple acute peripancreatic collections around the entire pancreas and also extending into the mesentery, gastric ligaments and bilateral anterior perirenal spaces are mildly decreased in size from 02/02/2017. Hepatic splenomegaly is decreased from prior exam. Ill defined hyperdensities within the posterior right hepatic lobe are decreased and may represent multifocal fatty infiltration, 1.6 cm hypodensity in the spleen is more conspicuous, recommend attention on follow-up imaging, status post placement of percutaneous cholecystostomy catheter that is in good position. Gallbladder is decompressed. Body wall edema organized fluid deep to the skin in the lower back and overlying the left hip is similar to prior exam. The organized fluid collections deep to the skin appears similar to the collection in the abdominal cavity and may reflect fat necrosis related to pancreatitis. PHYSICAL EXAMINATION: GENERAL: Well-nourished, well-developed, wasted middle-aged man, who is alert, in no distress. HEENT: Head atraumatic, normocephalic. Sclerae anicteric. Buccal mucosa pink. NECK: Supple. CHEST: Chest rise symmetrical. Breath sounds clear. HEART: S1, S2. ABDOMEN: Soft, bowel sounds present. EXTREMITIES: Without cyanosis. ASSESSMENT: 1. Status post sepsis with shock. 2. Multiple necrotic wounds, infected, status post debridement. 3. Multidrug resistant Klebsiella pneumoniae bacteremia on February 06, repeat blood cultures pending. 4. Acute pancreatitis. 5. Metastatic B-cell lymphoma. 6. History of cholecystostomy tube placement. PLAN: 1. The patient remains stable. 2. Pending repeat blood cultures. 3. Per discussion with Dr. Carlos needs to be on IV antibiotics for his wounds and plan for wound debridement next week. 4. We will order repeat wound cultures. Dictated By: Felicia Hdz NP /paulette/rajendra /Document#: [id number]
[2017-02-18] VITALS (12 sets, daily range): BP systolic 103–122; BP diastolic 59–67; PULSE 75–95; RESP 18–19
[2017-02-18] MEDS: HYDROmorphONE 1 MG/ML SYG IV PRN ×5 (03:30→22:16)
[2017-02-18] MEDS: METHADONE 10 MG TAB PO SCH ×4 (04:27→22:03)
[2017-02-18] MEDS: PANTOPRAZOLE (EC) 40 MG TAB PO SCH (05:11)
[2017-02-18] MEDS: ONDANSETRON 4 MG INJ IV SCH ×3 (05:11→18:00)
[2017-02-18 07:15] LABS: ABNORMAL IP MESSAGE 1; BASOPHILS % 0.4 % (0.0-2.0); EOSINOPHILS % 0.6 % (0.0-7.0); HEMATOCRIT 27.7 % (42.0-52.0); HEMOGLOBIN 8.9 g/dl (14.0-18.0); LYMPHOCYTES # 0.2 10^3/ul (0.8-2.9); MEAN CORPUSCULAR HEMOGLOBIN 28.8 pg (29.0-33.0); MEAN CORPUSCULAR HGB CONC 32.1 g/dl (32.0-37.0); MEAN CORPUSCULAR VOLUME 89.6 fl (82.0-101.0); MEAN PLATELET VOLUME 10.2 fl (7.4-10.4); MONOCYTE # 0.7 10^3/ul (0.3-0.9); MONOCYTES % 9.6 % (0.0-11.0); NEUTROPHILS % 84.9 % (39.0-77.0); PLATELET COUNT 271 10^3/UL (140-415); POSITIVE DIFF @See below; RED BLOOD COUNT 3.09 10^6/ul (4.70-6.10); RED CELL DISTRIBUTION WIDTH 18.6 % (11.5-14.5); WHITE BLOOD COUNT 7.1 10^3/ul (4.8-10.8)
[2017-02-18 07:52] LABS: CALCIUM 10.2 mg/dl (8.4-10.2); CREATININE 0.87 mg/dl (0.61-1.24); POTASSIUM 3.5 mmol/L (3.5-5.1)
[2017-02-18] MEDS: MAGNESIUM HYDROXIDE 30ML CUP PO SCH (09:06)
[2017-02-18] MEDS: MEGESTROL (40 MG/ML) 10ML CUP PO SCH (09:06)
[2017-02-18] MEDS: L ACIDOPHIL/B LACTIS/B LONGUM CAPSULE PO SCH ×2 (09:06→22:02)
[2017-02-18] MEDS: POTASSIUM CHLORIDE (SR) 10 MEQ TAB PO SCH ×2 (09:07→22:02)
[2017-02-18] MEDS: CALCIUM CARBONATE 1.25 GM TAB PO SCH ×2 (09:07→22:03)
[2017-02-18] MEDS: DOCUSATE SODIUM 100 MG CAP PO SCH ×2 (09:07→22:02)
[2017-02-18] MEDS: AMOXICILLIN/CLAV 875 MG TAB PO SCH ×2 (09:08→22:02)
[2017-02-18] MEDS: predniSONE 20 MG TAB PO SCH (09:08)
[2017-02-18] MEDS: ATENOLOL 25 MG TAB PO SCH ×2 (09:09→22:04)
[2017-02-18] MEDS: ENOXAPARIN 30 MG/0.3 ML SYG SC SCH (09:15)
[2017-02-18] MEDS: COLISTIMETHATE 150 MG in SOD CHLORIDE 0.9% 100 ML IVPB SCH ×2 (11:11→22:01)
--- NOTE | 2017-02-18 11:26 | PN ---
Date/Time of Note Date/Time of Note DATE: 02/18/17 TIME: 11:22 Assessment/Plan VTE Prophylaxis VTE Prophylaxis Intervention: SCD's Lines/Catheters IV [facility]ter Type (from [facility]): Saline Lock Urinary Cath still in place: No Assessment/Plan Assessment/Plan Assessment 1. Multiple superficial wounds on the back and flank region and behind the right knee 2. Status post percutaneous cholecystostomy drain placement 02/02/2017 3. Small right pleural effusion with atelectasis and right lung base pneumonia. 4. Large B cell anaplastic lymphoma; status post chemo 1 month prior to presentation 5. Sepsis 6. Hyponatremia 7. Hypokalemia 8. Acute renal injury 9. Excisional debridement of multiple sites including large area over the lumbar and flank region, 40 cm x 15 cm x 1 cm, smaller area on the right flank region, 10 cm x 4 cm x 1 cm, and an area behind the right knee, approximately 9 cm x 7 cm x 1 cm with removal of 15 cm x 10 cm x 1 cm soft tissue using scissors to a depth of 1 cm to subcutaneous fat Plan * continue present management * awaiting transfer to higher level of care * case discussed with Dr Hewitt Subjective 24 Hr Interval Summary Free Text/Dictation * Course reviewed with RN * Patient seen and examined * No untoward events overnight Exam/Review of Systems Vital Signs Vitals Vital Signs Date Time Temp Pulse Resp B/P Pulse Ox O2 Delivery O2 Flow Rate FiO2 02/18/17 08:00 84 02/18/17 07:30 Nasal Cannula 2.0 02/18/17 07:10 98.2 19 111/64 98 Intake and Output 02/17/17 02/17/17 02/18/17 15:00 23:00 07:00 Intake Total 2000 ml 200 ml Output Total 200 ml 1200 ml 970 ml Balance -200 ml 800 ml -770 ml Exam Constitutional: alert, frail Neck: non-tender, supple Respiratory: diminished breath sounds, normal air movement Cardiovascular: nl pulses, regular rate and rhythm Gastrointestinal: bowel sounds, distended, hepatomegaly, non-tender, soft Musculoskeletal: muscle weakness Extremities: normal pulses Neurological: focal weakness Skin: nl turgor, rash or lesions Results Result Diagram: 02/18/17 0620 02/18/17 0620 Results 24 hrs Laboratory Tests Test 02/18/17 06:20 White Blood Count 7.1 Red Blood Count 3.09 L Hemoglobin 8.9 L Hematocrit 27.7 L Mean Corpuscular Volume 89.6 Mean Corpuscular Hemoglobin 28.8 L Mean Corpuscular Hemoglobin Concent 32.1 Red Cell Distribution Width 18.6 H Platelet Count 271 Mean Platelet Volume 10.2 Neutrophils % 84.9 H Lymphocytes % 3.0 L Monocytes % 9.6 Eosinophils % 0.6 Basophils % 0.4 Nucleated Red Blood Cells % 0.0 Neutrophils # (Manual) 6.0 Lymphocytes # 0.2 L Monocytes # 0.7 Eosinophils # 0.0 Basophils # 0.0 Nucleated Red Blood Cells # 0.0 Sodium Level 129 L Potassium Level 3.5 Chloride Level 95 L Carbon Dioxide Level 26 Anion Gap 12 Blood Urea Nitrogen 8 Creatinine 0.87 Glucose Level 87 Calcium Level 10.2 Medications Medications Current Medications Sodium Biphosphate/ Sodium Phosphate (Fleet Enema) 133 ml DAILY PRN ID CONSTIPATION; Start 01/09/17 at 19:30 Nitroglycerin (Nitroglycerin (Sl Tab) 0.4 Mg) 1 tab Q5M PRN SL ANGINA; Start at 19:30 [facility]isc[facility] This patient aranda... PRN PRN XX WOUND CARE; Start 01/10/17 at 03:30 Ondansetron HCl (Zofran Inj) 4 mg Q6 IV Last administered on 02/15/17 17:02; Admin Dose 4 MG; Start 01/10/17 at 15:30 IV Flush (NS 10 ml) 10 ml PRN PRN IV IV PROTOCOL; Start 01/10/17 at 20:30 Prednisone (Prednisone) 10 mg DAILY PO Last administered on 02/18/17 09:08; Admin Dose 10 MG; Start 01/15/17 at 09:00 Ergocalciferol (Drisdol) 50,000 unit We@09 PO Last administered on 02/15/17 09: 30; Admin Dose 50,000 UNIT; Start 01/25/17 at 09:00 Calcium Carbonate (Oyster Shell Calcium) 1.25 gm BID PO Last administered on 09:07; Admin Dose 1.25 GM; Start 01/24/17 at 21:00 Pantoprazole (Protonix Tab) 40 mg DAILY@06 PO Last administered on 02/18/17 05: 11; Admin Dose 40 MG; Start 01/26/17 at 06:00 Hydromorphone HCl (Dilaudid) 1 mg Q2 PRN IV PAIN Last administered on 02/18/17 09:22; Admin Dose 1 MG; Start 01/25/17 at 21:00 Atenolol (Tenormin) 25 mg BID PO Last administered on 02/18/17 09:09; Admin Dose 25 MG; Start 01/30/17 at 12:00 Enoxaparin Sodium (Lovenox) 30 mg DAILY SC Last administered on 02/18/17 09:15 ; Admin Dose 30 MG; Start 02/01/17 at 16:00 Lactobacillus Acidophilus 1 each 1 each BID PO Last administered on 02/18/17 09 :06; Admin Dose 1 EACH; Start 02/03/17 at 21:00 Colistimethate Sodium/Sodium Chloride (Coly-Mycin/NS) 100 ml @ 200 mls/hr Q12 IVPB Last administered on 02/18/17 11:11; Admin Dose 200 MLS/HR; Start at 21:00 Bisacodyl (Dulcolax Supp) 10 mg BID PRN ID CONSTIPATION; Start 02/04/17 at 19: 30 Sodium Biphosphate/ Sodium Phosphate (Fleet Enema) 133 ml BID PRN ID CONSTIPATION; Start 02/04/17 at 19:30 Sodium Biphosphate/ Sodium Phosphate (Fleet Enema) 133 ml BID PRN ID CONSTIPATION; Start 02/09/17 at 10:00 Docusate Sodium (Colace) 100 mg BID PO Last administered on 02/18/17 09:07; Admin Dose 100 MG; Start 02/12/17 at 09:00 Magnesium Hydroxide (Milk Of Mag) 30 ml DAILY PO Last administered on 02/18/17 09:06; Admin Dose 30 ML; Start 02/12/17 at 09:00 Amoxicillin/ Clavulanate Potassium (Augmentin) 875 mg BID PO Last administered on 02/18/17 09:08; Admin Dose 875 MG; Start 02/13/17 at 21:00; Stop 02/20/17 at 23:00 Methadone HCl (Methadone) 10 mg Q6H PO Last administered on 02/18/17 09:21; Admin Dose 10 MG; Start 02/14/17 at 16:00 Ondansetron HCl (Zofran Inj) 4 mg Q6H PRN IV NAUSEA AND/OR VOMITING; Start 02/14 at 15:30 Potassium Chloride (Klor-Con 10) 30 meq BID PO Last administered on 02/18/17 09 :07; Admin Dose 30 MEQ; Start 02/16/17 at 21:00 Megestrol Acetate (Megace Susp) 800 mg DAILY PO Last administered on 02/18/17 09:06; Admin Dose 800 MG; Start 02/16/17 at 18:00 SELENA ROY NP Feb 18, 2017 11:26
--- NOTE | 2017-02-18 16:46 | CONS ---
Date/Time of Note Date/Time of Note DATE: 02/18/17 TIME: 16:42 Assessment/Plan Assessment/Plan Additional Assessment/Plan Abnormal electrocardiogram Lymphoma HTN Anemia Obesity Pancreatitis Cholecystitis s/p drain placement Hemodynamically stable Continue Atenolol Continue antibiotics Continue GI and DVT Prophylaxis Continue Methadone Consultation Date/Type/Reason Admit Date/Time Jan 09, 2017 at 19:08 Constitutional: improved, no complaints Eyes: no complaints ENT: no complaints Respiratory: no complaints Cardiovascular: no complaints Gastrointestinal: diarrhea (+) Genitourinary: no complaints Musculoskeletal: no complaints Skin: skin lesions (multiple crater-like lesions in many parts of the body due to invasive lymphoma) Psychological: no complaints Past Surgical History Past Surgical Hx: noncontributory Social History Alcohol Use: none Smoking Status: Never smoker Drug Use: none Exam/Review of Systems Vital Signs Vitals Vital Signs Date Time Temp Pulse Resp B/P Pulse Ox O2 Delivery O2 Flow Rate FiO2 02/18/17 16:00 80 02/18/17 15:20 97.9 19 121/61 96 02/18/17 12:00 Nasal Cannula 2.0 Intake and Output 02/17/17 02/17/17 02/18/17 15:00 23:00 07:00 Intake Total 2000 ml 200 ml Output Total 200 ml 1200 ml 970 ml Balance -200 ml 800 ml -770 ml Exam Constitutional: alert Head: atraumatic, normocephalic Respiratory: clear to auscultation Cardiovascular: regular rate and rhythm Gastrointestinal: nl liver, spleen, non-tender, soft Extremities: normal pulses Results Result Diagram: 02/18/17 0620 02/18/17 0620 Results 24 hrs Laboratory Tests Test 02/18/17 06:20 White Blood Count 7.1 Red Blood Count 3.09 L Hemoglobin 8.9 L Hematocrit 27.7 L Mean Corpuscular Volume 89.6 Mean Corpuscular Hemoglobin 28.8 L Mean Corpuscular Hemoglobin Concent 32.1 Red Cell Distribution Width 18.6 H Platelet Count 271 Mean Platelet Volume 10.2 Neutrophils % 84.9 H Lymphocytes % 3.0 L Monocytes % 9.6 Eosinophils % 0.6 Basophils % 0.4 Nucleated Red Blood Cells % 0.0 Neutrophils # (Manual) 6.0 Lymphocytes # 0.2 L Monocytes # 0.7 Eosinophils # 0.0 Basophils # 0.0 Nucleated Red Blood Cells # 0.0 Sodium Level 129 L Potassium Level 3.5 Chloride Level 95 L Carbon Dioxide Level 26 Anion Gap 12 Blood Urea Nitrogen 8 Creatinine 0.87 Glucose Level 87 Calcium Level 10.2 Medications Medications Current Medications Sodium Biphosphate/ Sodium Phosphate (Fleet Enema) 133 ml DAILY PRN PA CONSTIPATION; Start 01/09/17 at 19:30 Nitroglycerin (Nitroglycerin (Sl Tab) 0.4 Mg) 1 tab Q5M PRN SL ANGINA; Start at 19:30 Miscellaneous Information (Pending [facility] Order For Wound Care) This patient aranda... PRN PRN XX WOUND CARE; Start 01/10/17 at 03:30 Ondansetron HCl (Zofran Inj) 4 mg Q6 IV Last administered on 02/15/17 17:02; Admin Dose 4 MG; Start 01/10/17 at 15:30 IV Flush (NS 10 ml) 10 ml PRN PRN IV IV PROTOCOL; Start 01/10/17 at 20:30 Prednisone (Prednisone) 10 mg DAILY PO Last administered on 02/18/17 09:08; Admin Dose 10 MG; Start 01/15/17 at 09:00 Ergocalciferol (Drisdol) 50,000 unit We@09 PO Last administered on 02/15/17 09: 30; Admin Dose 50,000 UNIT; Start 01/25/17 at 09:00 Calcium Carbonate (Oyster Shell Calcium) 1.25 gm BID PO Last administered on 09:07; Admin Dose 1.25 GM; Start 01/24/17 at 21:00 Pantoprazole (Protonix Tab) 40 mg DAILY@06 PO Last administered on 02/18/17 05: 11; Admin Dose 40 MG; Start 01/26/17 at 06:00 Hydromorphone HCl (Dilaudid) 1 mg Q2 PRN IV PAIN Last administered on 02/18/17 14:34; Admin Dose 1 MG; Start 01/25/17 at 21:00 Atenolol (Tenormin) 25 mg BID PO Last administered on 02/18/17 09:09; Admin Dose 25 MG; Start 01/30/17 at 12:00 Enoxaparin Sodium (Lovenox) 30 mg DAILY SC Last administered on 02/18/17 09:15 ; Admin Dose 30 MG; Start 02/01/17 at 16:00 Lactobacillus Acidophilus 1 each 1 each BID PO Last administered on 02/18/17 09 :06; Admin Dose 1 EACH; Start 02/03/17 at 21:00 Colistimethate Sodium/Sodium Chloride (Coly-Mycin/NS) 100 ml @ 200 mls/hr Q12 IVPB Last administered on 02/18/17 11:11; Admin Dose 200 MLS/HR; Start at 21:00 Bisacodyl (Dulcolax Supp) 10 mg BID PRN PA CONSTIPATION; Start 02/04/17 at 19: 30 Sodium Biphosphate/ Sodium Phosphate (Fleet Enema) 133 ml BID PRN PA CONSTIPATION; Start 02/04/17 at 19:30 Sodium Biphosphate/ Sodium Phosphate (Fleet Enema) 133 ml BID PRN PA CONSTIPATION; Start 02/09/17 at 10:00 Docusate Sodium (Colace) 100 mg BID PO Last administered on 02/18/17 09:07; Admin Dose 100 MG; Start 02/12/17 at 09:00 Magnesium Hydroxide (Milk Of Mag) 30 ml DAILY PO Last administered on 02/18/17 09:06; Admin Dose 30 ML; Start 02/12/17 at 09:00 Amoxicillin/ Clavulanate Potassium (Augmentin) 875 mg BID PO Last administered on 02/18/17 09:08; Admin Dose 875 MG; Start 02/13/17 at 21:00; Stop 02/20/17 at 23:00 Methadone HCl (Methadone) 10 mg Q6H PO Last administered on 02/18/17 09:21; Admin Dose 10 MG; Start 02/14/17 at 16:00 Ondansetron HCl (Zofran Inj) 4 mg Q6H PRN IV NAUSEA AND/OR VOMITING; Start 02/14 at 15:30 Potassium Chloride (Klor-Con 10) 30 meq BID PO Last administered on 02/18/17 09 :07; Admin Dose 30 MEQ; Start 02/16/17 at 21:00 Megestrol Acetate (Megace Susp) 800 mg DAILY PO Last administered on 02/18/17 09:06; Admin Dose 800 MG; Start 9/7/17 at 18:00 LUNA SCHMIDT M.D. Feb 18, 2017 16:46
--- NOTE | 2017-02-18 16:58 | CONS ---
Date/Time of Note Date/Time of Note DATE: 02/18/17 TIME: 16:56 Assessment/Plan Assessment/Plan Chief Complaint/Hosp Course SUBJECTIVE DATA: No acute changes overnight. The patient is alert, feels good , looks comfortable. MICROBIOLOGY: Repeat blood cultures 02/16 negative. ANTIMICROBIAL: Colistin and Augmentin. INDWELLING: Right abdominal cholecystostomy catheter. MICROBIOLOGY: Blood culture on February 06 grew coag-negative Staph and carbapenem resistant coag pneumonia. Wound culture on admission grew Pseudomonas, Klebsiella pneumoniae, carbapenem resistant Enterococcus species. DIAGNOSTICS: The patient had repeat CT of the chest and abdomen that revealed mild focal lung consolidation and ground-glass opacity in keeping with multifocal pneumonia, improved but not resolved. Acute edematous pancreatitis with multiple acute peripancreatic collections around the entire pancreas and also extending into the mesentery, gastric ligaments and bilateral anterior perirenal spaces are mildly decreased in size from 02/02/2017. Hepatic splenomegaly is decreased from prior exam. Ill defined hyperdensities within the posterior right hepatic lobe are decreased and may represent multifocal fatty infiltration, 1.6 cm hypodensity in the spleen is more conspicuous, recommend attention on follow-up imaging, status post placement of percutaneous cholecystostomy catheter that is in good position. Gallbladder is decompressed. Body wall edema organized fluid deep to the skin in the lower back and overlying the left hip is similar to prior exam. The organized fluid collections deep to the skin appears similar to the collection in the abdominal cavity and may reflect fat necrosis related to pancreatitis. PHYSICAL EXAMINATION: GENERAL: Well-nourished, well-developed, wasted middle-aged man, who is alert, in no distress. HEENT: Head atraumatic, normocephalic. Sclerae anicteric. Buccal mucosa pink. NECK: Supple. CHEST: Chest rise symmetrical. Breath sounds clear. HEART: S1, S2. ABDOMEN: Soft, bowel sounds present. EXTREMITIES: Without cyanosis. ASSESSMENT: 1. Status post sepsis with shock. 2. Multiple necrotic wounds, infected, status post debridement. 3. Multidrug resistant Klebsiella pneumoniae bacteremia on February 06, repeat blood cultures ntive. 4. Acute pancreatitis. 5. Metastatic B-cell lymphoma. 6. History of cholecystostomy tube placement. PLAN: The patient remains stable. Continue abx, pending wound debridement next week DW pt/staff Problems: Consultation Date/Type/Reason Admit Date/Time Jan 09, 2017 at 19:08 Initial Consult Date 01/15/17 Type of Consultation: ID Referring Provider: YAO RAHMAN Exam/Review of Systems Vital Signs Vitals Vital Signs Date Time Temp Pulse Resp B/P Pulse Ox O2 Delivery O2 Flow Rate FiO2 02/18/17 16:00 80 02/18/17 15:20 97.9 19 121/61 96 02/18/17 12:00 Nasal Cannula 2.0 Intake and Output 02/17/17 02/17/17 02/18/17 15:00 23:00 07:00 Intake Total 2000 ml 200 ml Output Total 200 ml 1200 ml 970 ml Balance -200 ml 800 ml -770 ml Results Result Diagram: 02/18/17 0620 02/18/17 0620 Results 24 hrs Laboratory Tests Test 02/18/17 06:20 White Blood Count 7.1 Red Blood Count 3.09 L Hemoglobin 8.9 L Hematocrit 27.7 L Mean Corpuscular Volume 89.6 Mean Corpuscular Hemoglobin 28.8 L Mean Corpuscular Hemoglobin Concent 32.1 Red Cell Distribution Width 18.6 H Platelet Count 271 Mean Platelet Volume 10.2 Neutrophils % 84.9 H Lymphocytes % 3.0 L Monocytes % 9.6 Eosinophils % 0.6 Basophils % 0.4 Nucleated Red Blood Cells % 0.0 Neutrophils # (Manual) 6.0 Lymphocytes # 0.2 L Monocytes # 0.7 Eosinophils # 0.0 Basophils # 0.0 Nucleated Red Blood Cells # 0.0 Sodium Level 129 L Potassium Level 3.5 Chloride Level 95 L Carbon Dioxide Level 26 Anion Gap 12 Blood Urea Nitrogen 8 Creatinine 0.87 Glucose Level 87 Calcium Level 10.2 Medications Medications Current Medications Sodium Biphosphate/ Sodium Phosphate (Fleet Enema) 133 ml DAILY PRN [place] CONSTIPATION; Start 01/09/17 at 19:30 Nitroglycerin (Nitroglycerin (Sl Tab) 0.4 Mg) 1 tab Q5M PRN SL ANGINA; Start at 19:30 Miscellaneous [facility] This patient aranda... PRN PRN XX WOUND CARE; Start 01/10/17 at 03:30 Ondansetron HCl (Zofran Inj) 4 mg Q6 IV Last administered on 02/15/17t 17:02; Admin Dose 4 MG; Start 01/10/17 at 15:30 IV Flush (NS 10 ml) 10 ml PRN PRN IV IV PROTOCOL; Start 01/10/17 at 20:30 Prednisone (Prednisone) 10 mg DAILY PO Last administered on 02/18/17 09:08; Admin Dose 10 MG; Start 01/15/17 at 09:00 Ergocalciferol (Drisdol) 50,000 unit We@09 PO Last administered on 02/15/17 09: 30; Admin Dose 50,000 UNIT; Start 01/25/17 at 09:00 Calcium Carbonate (Oyster Shell Calcium) 1.25 gm BID PO Last administered on 09:07; Admin Dose 1.25 GM; Start 01/24/17 at 21:00 Pantoprazole (Protonix Tab) 40 mg DAILY@06 PO Last administered on 02/18/17 05: 11; Admin Dose 40 MG; Start 01/26/17 at 06:00 Hydromorphone HCl (Dilaudid) 1 mg Q2 PRN IV PAIN Last administered on 02/18/17 14:34; Admin Dose 1 MG; Start 01/25/17 at 21:00 Atenolol (Tenormin) 25 mg BID PO Last administered on 02/18/17 09:09; Admin Dose 25 MG; Start 01/30/17 at 12:00 Enoxaparin Sodium (Lovenox) 30 mg DAILY SC Last administered on 02/18/17 09:15 ; Admin Dose 30 MG; Start 02/01/17 at 16:00 Lactobacillus Acidophilus 1 each 1 each BID PO Last administered on 02/18/17 09 :06; Admin Dose 1 EACH; Start 02/03/17 at 21:00 Colistimethate Sodium/Sodium Chloride (Coly-Mycin/NS) 100 ml @ 200 mls/hr Q12 IVPB Last administered on 02/18/17 11:11; Admin Dose 200 MLS/HR; Start at 21:00 Bisacodyl (Dulcolax Supp) 10 mg BID PRN [place] CON[place]ATION; Start 02/04/17 at 19: 30 Sodium Biphosphate/ Sodium Phosphate (Fleet Enema) 133 ml BID PRN [place] CONSTIPATION; Start 02/04/17 at 19:30 Sodium Biphosphate/ Sodium Phosphate (Fleet Enema) 133 ml BID PRN [place] CONST[place]ATION; Start 02/09/17 at 10:00 Docusate Sodium (Colace) 100 mg BID PO Last administered on 02/18/17 09:07; Admin Dose 100 MG; Start 02/12/17 at 09:00 Magnesium Hydroxide (Milk Of Mag) 30 ml DAILY PO Last administered on 02/18/17 09:06; Admin Dose 30 ML; Start 02/12/17 at 09:00 Amoxicillin/ Clavulanate Potassium (Augmentin) 875 mg BID PO Last administered on 02/18/17 09:08; Admin Dose 875 MG; Start 02/13/17 at 21:00; Stop 02/20/17 at 23:00 Methadone HCl (Methadone) 10 mg Q6H PO Last administered on 02/18/17 09:21; Admin Dose 10 MG; Start 02/14/17 at 16:00 Ondansetron HCl (Zofran Inj) 4 mg Q6H PRN IV NAUSEA AND/OR VOMITING; Start 02/14 at 15:30 Potassium Chloride (Klor-Con 10) 30 meq BID PO Last administered on 02/18/17 09 :07; Admin Dose 30 MEQ; Start 02/16/17 at 21:00 Megestrol Acetate (Megace Susp) 800 mg DAILY PO Last administered on 02/18/17 09:06; Admin Dose 800 MG; Start 02/16/17 at 18:00 DEENA LOCO NP Feb 18, 2017 16:58
--- NOTE | 2017-02-18 17:56 | PN ---
Date/Time of Note Date/Time of Note DATE: 02/18/17 TIME: 17:52 Assessment/Plan VTE Prophylaxis VTE Prophylaxis Intervention: LMWH Lines/Catheters IV C[facility] Type [facility] Saline Lock Urinary Cath still in place: No Assessment/Plan Chief Complaint/Hosp Course 31 yo male with anaplastic B Cell lymphoma who presented with abdominal pain, found to have 1. pancreatitis on pain control with DIilaudid s/p Cholecystomy 2 Fevers 102>104 s/p Cholecystomy however recurent fevers ?source ? wounds vs Bacterimia from PICC line s/p removal of PICC line 3 Hyponatremia on bactrim with d5w controlled 4 Acute renal injury resolved 5 Right pleural effusion with atelectasis and right lung base pneumonia, resolved. 6. Large B cell anaplastic lymphoma; status post chemo 1 month, leukopenia now neutropenic 7. 2 Hypoparathyroidism On Calcitrol and Caco3 8 Severe anemia 9 Morbid obesity 10 excisional debridement of multiple sites including large area over the lumbar and flank region, 40 cm x 15 cm x 1 cm, smaller area on the right flank region, 10 cm x 4 cm x 1 cm, and an area behind the right knee, approximately 9 cm x 7 cm x 1 cm with removal of 15 cm x 10 cm x 1 cm soft tissue using scissors to a depth of 1 cm to subcutaneous fat 11 hypokalemia Assessment/Plan -po Abx - Fluid restriction - surgical debridement next week - pain control - PT - Appreciate all consults - GI/DVT prophylaxsis Problems: Subjective 24 Hr Interval Summary Free Text/Dictation Pt feeling better Pending debridement next week Exam/Review of Systems Vital Signs Vitals Vital Signs Date Time Temp Pulse Resp B/P Pulse Ox O2 Delivery O2 Flow Rate FiO2 02/18/17 16:00 80 02/18/17 15:20 97.9 19 121/61 96 02/18/17 12:00 Nasal Cannula 2.0 Intake and Output 02/17/17 02/17/17 02/18/17 15:00 23:00 07:00 Intake Total 2000 ml 200 ml Output Total 200 ml 1200 ml 970 ml Balance -200 ml 800 ml -770 ml Exam Gen:awake,aler Neck:supple cvs:regular rate and rthym Abdomen:soft, non tender Ext 1 edema+ Multiple wounds Results Result Diagram: 9/9/17 0620 9/9/17 0620 Results 24 hrs Laboratory Tests Test 02/18/17 06:20 White Blood Count 7.1 Red Blood Count 3.09 L Hemoglobin 8.9 L Hematocrit 27.7 L Mean Corpuscular Volume 89.6 Mean Corpuscular Hemoglobin 28.8 L Mean Corpuscular Hemoglobin Concent 32.1 Red Cell Distribution Width 18.6 H Platelet Count 271 Mean Platelet Volume 10.2 Neutrophils % 84.9 H Lymphocytes % 3.0 L Monocytes % 9.6 Eosinophils % 0.6 Basophils % 0.4 Nucleated Red Blood Cells % 0.0 Neutrophils # (Manual) 6.0 Lymphocytes # 0.2 L Monocytes # 0.7 Eosinophils # 0.0 Basophils # 0.0 Nucleated Red Blood Cells # 0.0 Sodium Level 129 L Potassium Level 3.5 Chloride Level 95 L Carbon Dioxide Level 26 Anion Gap 12 Blood Urea Nitrogen 8 Creatinine 0.87 Glucose Level 87 Calcium Level 10.2 Medications Medications Current Medications Sodium Biphosphate/ Sodium Phosphate (Fleet Enema) 133 ml DAILY PRN [place] CONSTIPATION; Start 01/09/17 at 19:30 Nitroglycerin (Nitroglycerin (Sl Tab) 0.4 Mg) 1 tab Q5M PRN SL ANGINA; Start at 19:30 Miscellaneous Information (Pending [facility] Order For Wound Care) This patient aranda... PRN PRN XX WOUND CARE; Start 01/10/17 at 03:30 Ondansetron HCl (Zofran Inj) 4 mg Q6 IV Last administered on 02/15/17 17:02; Admin Dose 4 MG; Start 01/10/17 at 15:30 IV Flush (NS 10 ml) 10 ml PRN PRN IV IV PROTOCOL; Start 01/10/17 at 20:30 Prednisone (Prednisone) 10 mg DAILY PO Last administered on 02/18/17 09:08; Admin Dose 10 MG; Start 01/15/17 at 09:00 Ergocalciferol (Drisdol) 50,000 unit @09 PO Last administered on 02/15/17 09: 30; Admin Dose 50,000 UNIT; Start 01/25/17 at 09:00 Calcium Carbonate (Oyster Shell Calcium) 1.25 gm BID PO Last administered on 09:07; Admin Dose 1.25 GM; Start 01/24/17 at 21:00 Pantoprazole (Protonix Tab) 40 mg DAILY@06 PO Last administered on 02/18/17 05: 11; Admin Dose 40 MG; Start 01/26/17 at 06:00 Hydromorphone HCl (Dilaudid) 1 mg Q2 PRN IV PAIN Last administered on 02/18/17 17:36; Admin Dose 1 MG; Start 01/25/17 at 21:00 Atenolol (Tenormin) 25 mg BID PO Last administered on 02/18/17 09:09; Admin Dose 25 MG; Start 01/30/17 at 12:00 Enoxaparin Sodium (Lovenox) 30 mg DAILY SC Last administered on 02/18/17 09:15 ; Admin Dose 30 MG; Start 02/01/17 at 16:00 Lactobacillus Acidophilus 1 each 1 each BID PO Last administered on 02/18/17 09 :06; Admin Dose 1 EACH; Start 02/03/17 at 21:00 Colistimethate Sodium/Sodium Chloride (Coly-Mycin/NS) 100 ml @ 200 mls/hr Q12 IVPB Last administered on 02/18/17 11:11; Admin Dose 200 MLS/HR; Start at 21:00 Bisacodyl (Dulcolax Supp) 10 mg BID PRN [place] CONSTIPATION; Start 02/04/17 at 19: 30 Sodium Biphosphate/ Sodium Phosphate (Fleet Enema) 133 ml BID PRN [place] CONSTIPATION; Start 02/04/17 at 19:30 Sodium Biphosphate/ Sodium Phosphate (Fleet Enema) 133 ml BID PRN [place] CONSTIPATION; Start 02/09/17 at 10:00 Docusate Sodium (Colace) 100 mg BID PO Last administered on 02/18/17 09:07; Admin Dose 100 MG; Start 02/12/17 at 09:00 Magnesium Hydroxide (Milk Of Mag) 30 ml DAILY PO Last administered on 02/18/17 09:06; Admin Dose 30 ML; Start 02/12/17 at 09:00 Amoxicillin/ Clavulanate Potassium (Augmentin) 875 mg BID PO Last administered on 02/18/17 09:08; Admin Dose 875 MG; Start 02/13/17 at 21:00; Stop 02/20/17 at 23:00 Methadone HCl (Methadone) 10 mg Q6H PO Last administered on 02/18/17 17:37; Admin Dose 10 MG; Start 02/14/17 at 16:00 Ondansetron HCl (Zofran Inj) 4 mg Q6H PRN IV NAUSEA AND/OR VOMITING; Start 02/14 at 15:30 Potassium Chloride (Klor-Con 10) 30 meq BID PO Last administered on 02/18/17 09 :07; Admin Dose 30 MEQ; Start 02/16/17 at 21:00 Megestrol Acetate (Megace Susp) 800 mg DAILY PO Last administered on 02/18/17 09:06; Admin Dose 800 MG; Start 02/16/17 at 18:00 TAMARA HARTMANN MD Feb 18, 2017 17:56
--- NOTE | 2017-02-18 21:53 | CONS ---
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 His last chemo was a month ago and hadn't had since due to experiencing similar presenting symptoms. record from pt's oncologist Kain Wisdom - P Left flank mass, CT-guided core needle biopsies with touch imprints: Completely necrotic tissue, insufficient for pathologic evaluation. PER PT REPORT- reportedly scheduled for change in therapy due to what appears to be lack of adequate response CT ABD/PEL/CHEST:(+) multiple areas of nodules likely lymphoma, PT WANT TO GO HOME AND FAMILY ALREADY CALLED HIS PRIMARY ONCOLOGIST TO ARRANGE THE APPT JOSSELIN POST DC OK TO DC HOME WHEN CLEARED BY PRIMARY AND ALL CONSULTANTS WITH F-UP BY DR WISDOM LEUKOPENIA IN PT WITH HNL POST CHEMO AND WITH SEPTIC PICTURE MONITOR BLOOD COUNT CLOSELY POST NEUPOGEN WBC- FLUCTUATING IMPROVED ON NEUPOGEN X 2 DC NEUPOGEN PANCYTOPENIA POST CHEMO CONT TO MONITOR PRBC NEEDED PAIN DR WHITE ON THE CASE s/p Sepsis w/worsening lactic acidosis 2/2 PNA + Left flank/hip/leg decub Resolving HCAP => CT ABD/PEL/CHEST: (+) PNA * 01/24 RESPIRATORY CULTURE Final 3+ KLEB PNEUMONIAE CARBAPENEMASE ID W-UP pancreatitis. Abd Pain with N/V: 2/2 known lymphoma - pain mgmt - Anti-emetics Hyponatremia and Hypokalemia: 2/2 vomiting - NS IVF - replete K+ as needed Presumed RAMU: likely pre-renal 2/2 vomiting - cont IVF for now Problems: Consultation Date/Type/Reason Admit Date/Time Jan 09, 2017 at 19:08 Initial Consult Date 01/10/17 Type of Consultation: [facility] Referring Provider: YAO RAHMAN 24 HR Interval Summary Free Text/Dictation ALL NOTED NO NEW EVENTS Exam/Review of Systems Vital Signs Vitals Vital Signs Date Time Temp Pulse Resp B/P Pulse Ox O2 Delivery O2 Flow Rate FiO2 02/18/17 20:01 75 02/18/17 18:52 98.3 19 106/59 99 02/18/17 18:39 2.0 28 02/18/17 16:00 Nasal Cannula Intake and Output 02/17/17 02/17/17 02/18/17 15:00 23:00 07:00 Intake Total 2000 ml 200 ml Output Total 200 ml 1200 ml 970 ml Balance -200 ml 800 ml -770 ml Exam GENERAL: This is a well-developed, ill-appearing, middle-aged, man, who is awake, in no distress. HEENT: Head atraumatic, normocephalic. Sclerae anicteric. Buccal mucosa pink and dry. NECK: Supple. CHEST: Rise symmetrical. Breath sounds diminished at the bases. HEART: S1, S2. ABDOMEN: Soft, bowel sounds present. EXTREMITIES: Without cyanosis. + WOUNDS Results Result Diagram: 02/18/17 0620 02/18/17 0620 Results 24 hrs Laboratory Tests Test 02/18/17 06:20 White Blood Count 7.1 Red Blood Count 3.09 L Hemoglobin 8.9 L Hematocrit 27.7 L Mean Corpuscular Volume 89.6 Mean Corpuscular Hemoglobin 28.8 L Mean Corpuscular Hemoglobin Concent 32.1 Red Cell Distribution Width 18.6 H Platelet Count 271 Mean Platelet Volume 10.2 Neutrophils % 84.9 H Lymphocytes % 3.0 L Monocytes % 9.6 Eosinophils % 0.6 Basophils % 0.4 Nucleated Red Blood Cells % 0.0 Neutrophils # (Manual) 6.0 Lymphocytes # 0.2 L Monocytes # 0.7 Eosinophils # 0.0 Basophils # 0.0 Nucleated Red Blood Cells # 0.0 Sodium Level 129 L Potassium Level 3.5 Chloride Level 95 L Carbon Dioxide Level 26 Anion Gap 12 Blood Urea Nitrogen 8 Creatinine 0.87 Glucose Level 87 Calcium Level 10.2 Medications Medications Current Medications Sodium Biphosphate/ Sodium Phosphate (Fleet Enema) 133 ml DAILY PRN [place] CONSTIPATION; Start 01/09/17 at 19:30 Nitroglycerin (Nitroglycerin (Sl Tab) 0.4 Mg) 1 tab Q5M PRN SL ANGINA; Start at 19:30 Miscellaneous Information (Pending [facility] Order For Wound Care) This patient aranda... PRN PRN XX WOUND CARE; Start 01/10/17 at 03:30 Ondansetron HCl (Zofran Inj) 4 mg Q6 IV Last administered on 02/15/17t 17:02; Admin Dose 4 MG; Start 01/10/17 at 15:30 IV Flush (NS 10 ml) 10 ml PRN PRN IV IV PROTOCOL; Start 01/10/17 at 20:30 Prednisone (Prednisone) 10 mg DAILY PO Last administered on 02/18/17 09:08; Admin Dose 10 MG; Start 01/15/17 at 09:00 Ergocalciferol (Drisdol) 50,000 unit We@09 PO Last administered on 02/15/17 09: 30; Admin Dose 50,000 UNIT; Start 01/25/17 at 09:00 Calcium Carbonate (Oyster Shell Calcium) 1.25 gm BID PO Last administered on 09:07; Admin Dose 1.25 GM; Start 01/24/17 at 21:00 Pantoprazole (Protonix Tab) 40 mg DAILY@06 PO Last administered on 02/18/17 05: 11; Admin Dose 40 MG; Start 01/26/17 at 06:00 Hydromorphone HCl (Dilaudid) 1 mg Q2 PRN IV PAIN Last administered on 02/18/17 17:36; Admin Dose 1 MG; Start 01/25/17 at 21:00 Atenolol (Tenormin) 25 mg BID PO Last administered on 02/18/17 09:09; Admin Dose 25 MG; Start 01/30/17 at 12:00 Enoxaparin Sodium (Lovenox) 30 mg DAILY SC Last administered on 02/18/17 09:15 ; Admin Dose 30 MG; Start 02/01/17 at 16:00 Lactobacillus Acidophilus 1 each 1 each BID PO Last administered on 02/18/17 09 :06; Admin Dose 1 EACH; Start 02/03/17 at 21:00 Colistimethate Sodium/Sodium Chloride (Coly-Mycin/NS) 100 ml @ 200 mls/hr Q12 IVPB Last administered on 02/18/17 11:11; Admin Dose 200 MLS/HR; Start at 21:00 Bisacodyl (Dulcolax Supp) 10 mg BID PRN [place] CONSTIPATION; Start 02/04/17 at 19: 30 Sodium Biphosphate/ Sodium Phosphate (Fleet Enema) 133 ml BID PRN [place] CONSTIPATION; Start 02/04/17 at 19:30 Sodium Biphosphate/ Sodium Phosphate (Fleet Enema) 133 ml BID PRN [place] CONSTIPATION; Start 02/09/17 at 10:00 Docusate Sodium (Colace) 100 mg BID PO Last administered on 02/18/17 09:07; Admin Dose 100 MG; Start 02/12/17 at 09:00 Magnesium Hydroxide (Milk Of Mag) 30 ml DAILY PO Last administered on 02/18/17 09:06; Admin Dose 30 ML; Start 02/12/17 at 09:00 Amoxicillin/ Clavulanate Potassium (Augmentin) 875 mg BID PO Last administered on 02/18/17 09:08; Admin Dose 875 MG; Start 02/13/17 at 21:00; Stop 02/20/17 at 23:00 Methadone HCl (Methadone) 10 mg Q6H PO Last administered on 02/18/17 17:37; Admin Dose 10 MG; Start 02/14/17 at 16:00 Ondansetron HCl (Zofran Inj) 4 mg Q6H PRN IV NAUSEA AND/OR VOMITING; Start 02/14 at 15:30 Potassium Chloride (Klor-Con 10) 30 meq BID PO Last administered on 02/18/17 09 :07; Admin Dose 30 MEQ; Start 02/16/17 at 21:00 Megestrol Acetate (Megace Susp) 800 mg DAILY PO Last administered on 02/18/17 09:06; Admin Dose 800 MG; Start 02/16/17 at 18:00 MOIRA BIRMINGHAM MD Feb 18, 2017 21:53
[2017-02-19] VITALS (11 sets, daily range): BP systolic 110–122; BP diastolic 58–70; PULSE 80–106; RESP 16–18
[2017-02-19] MEDS: ONDANSETRON 4 MG INJ IV SCH ×4 (01:04→18:00)
[2017-02-19] MEDS: HYDROmorphONE 1 MG/ML SYG IV PRN ×5 (01:35→23:16)
[2017-02-19] MEDS: METHADONE 10 MG TAB PO SCH ×4 (04:06→21:46)
[2017-02-19] MEDS: PANTOPRAZOLE (EC) 40 MG TAB PO SCH (06:51)
[2017-02-19 07:01] LABS: ABNORMAL IP MESSAGE 1; BASOPHILS % 0.5 % (0.0-2.0); EOSINOPHILS % 0.6 % (0.0-7.0); HEMOGLOBIN 9.6 g/dl (14.0-18.0); LYMPHOCYTES # 0.2 10^3/ul (0.8-2.9); LYMPHOCYTES % 3.4 % (15.0-51.0); MEAN CORPUSCULAR HEMOGLOBIN 29.8 pg (29.0-33.0); MEAN CORPUSCULAR HGB CONC 33.1 g/dl (32.0-37.0); MEAN CORPUSCULAR VOLUME 90.1 fl (82.0-101.0); MEAN PLATELET VOLUME 9.6 fl (7.4-10.4); MONOCYTE # 0.6 10^3/ul (0.3-0.9); MONOCYTES % 9.7 % (0.0-11.0); PLATELET COUNT 257 10^3/UL (140-415); POSITIVE DIFF @See below; RED BLOOD COUNT 3.22 10^6/ul (4.70-6.10); RED CELL DISTRIBUTION WIDTH 18.6 % (11.5-14.5); WHITE BLOOD COUNT 6.5 10^3/ul (4.8-10.8)
[2017-02-19] MEDS: DOCUSATE SODIUM 100 MG CAP PO SCH ×2 (09:00→21:46)
[2017-02-19] MEDS: MAGNESIUM HYDROXIDE 30ML CUP PO SCH (09:00)
[2017-02-19] MEDS: COLISTIMETHATE 150 MG in SOD CHLORIDE 0.9% 100 ML IVPB SCH ×2 (09:49→21:50)
[2017-02-19] MEDS: ENOXAPARIN 30 MG/0.3 ML SYG SC SCH (09:50)
[2017-02-19] MEDS: MEGESTROL (40 MG/ML) 10ML CUP PO SCH (09:51)
[2017-02-19] MEDS: L ACIDOPHIL/B LACTIS/B LONGUM CAPSULE PO SCH ×2 (09:51→21:45)
[2017-02-19] MEDS: CALCIUM CARBONATE 1.25 GM TAB PO SCH ×2 (09:51→21:50)
[2017-02-19] MEDS: predniSONE 20 MG TAB PO SCH (09:52)
[2017-02-19] MEDS: AMOXICILLIN/CLAV 875 MG TAB PO SCH ×2 (09:52→21:46)
[2017-02-19] MEDS: POTASSIUM CHLORIDE (SR) 10 MEQ TAB PO SCH ×2 (09:52→21:46)
[2017-02-19] MEDS: ATENOLOL 25 MG TAB PO SCH ×2 (09:53→21:49)
--- NOTE | 2017-02-19 13:39 | CONS ---
Date/Time of Note Date/Time of Note DATE: 02/19/17 TIME: 13:39 Assessment/Plan Assessment/Plan Additional Assessment/Plan Abnormal electrocardiogram Lymphoma HTN Anemia Obesity Pancreatitis Cholecystitis s/p drain placement Hemodynamically stable Continue Atenolol Continue antibiotics Continue GI and DVT Prophylaxis Continue Methadone Consultation Date/Type/Reason Admit Date/Time Jan 09, 2017 at 19:08 Initial Consult Date 01/15/17 [facility] Referring Provider: YAO RAHMAN Exam/Review of Systems Vital Signs Vitals Vital Signs Date Time Temp Pulse Resp B/P Pulse Ox O2 Delivery O2 Flow Rate FiO2 02/19/17 12:00 Nasal Cannula 2.0 02/19/17 11:29 98.6 105 18 112/61 98 02/18/17 18:39 28 Intake and Output 02/18/17 02/18/17 02/19/17 15:00 23:00 07:00 Intake Total 800 ml 600 ml Output Total 1715 ml 940 ml Balance -915 ml -340 ml Exam Head: atraumatic, normocephalic Neck: non-tender, supple Respiratory: clear to auscultation Cardiovascular: regular rate and rhythm Gastrointestinal: nl liver, spleen, non-tender, soft Results Result Diagram: 02/19/17 0612 02/18/17 0620 Results 24 hrs Laboratory Tests Test 02/19/17 06:12 White Blood Count 6.5 Red Blood Count 3.22 L Hemoglobin 9.6 L Hematocrit 29.0 L Mean Corpuscular Volume 90.1 Mean Corpuscular Hemoglobin 29.8 Mean Corpuscular Hemoglobin Concent 33.1 Red Cell Distribution Width 18.6 H Platelet Count 257 Mean Platelet Volume 9.6 Neutrophils % 85.0 H Lymphocytes % 3.4 L Monocytes % 9.7 Eosinophils % 0.6 Basophils % 0.5 Nucleated Red Blood Cells % 0.0 Neutrophils # (Manual) 5.5 Lymphocytes # 0.2 L Monocytes # 0.6 Eosinophils # 0.0 Basophils # 0.0 Nucleated Red Blood Cells # 0.0 Medications Medications Current Medications Sodium Biphosphate/ Sodium Phosphate (Fleet Enema) 133 ml DAILY PRN [place] CONSTIPATION; Start 01/09/17 at 19:30 Nitroglycerin (Nitroglycerin (Sl Tab) 0.4 Mg) 1 tab Q5M PRN SL ANGINA; Start at 19:30 Miscellaneous Information (Pending [facility] Order For Wound Care) This patient aranda... PRN PRN XX WOUND CARE; Start 01/10/17 at 03:30 Ondansetron HCl (Zofran Inj) 4 mg Q6 IV Last administered on 02/19/17 01:04; Admin Dose 4 MG; Start 01/10/17 at 15:30 IV Flush (NS 10 ml) 10 ml PRN PRN IV IV PROTOCOL; Start 01/10/17 at 20:30 Prednisone (Prednisone) 10 mg DAILY PO Last administered on 02/19/17 09:52; Admin Dose 10 MG; Start 01/15/17 at 09:00 Ergocalciferol (Drisdol) 50,000 unit We@09 PO Last administered on 02/15/17 09: 30; Admin Dose 50,000 UNIT; Start 01/25/17 at 09:00 Calcium Carbonate (Oyster Shell Calcium) 1.25 gm BID PO Last administered on 09:51; Admin Dose 1.25 GM; Start 01/24/17 at 21:00 Pantoprazole (Protonix Tab) 40 mg DAILY@06 PO Last administered on 02/19/17 06 :51; Admin Dose 40 MG; Start 01/26/17 at 06:00 Hydromorphone HCl (Dilaudid) 1 mg Q2 PRN IV PAIN Last administered on 09:49; Admin Dose 1 MG; Start 01/25/17 at 21:00 Atenolol (Tenormin) 25 mg BID PO Last administered on 02/19/17 09:53; Admin Dose 25 MG; Start 01/30/17 at 12:00 Enoxaparin Sodium (Lovenox) 30 mg DAILY SC Last administered on 02/19/17 09:50 ; Admin Dose 30 MG; Start 02/01/17 at 16:00 Lactobacillus Acidophilus 1 each 1 each BID PO Last administered on 02/19/17 09:51; Admin Dose 1 EACH; Start 02/03/17 at 21:00 Colistimethate Sodium/Sodium Chloride (Coly-Mycin/NS) 100 ml @ 200 mls/hr Q12 IVPB Last administered on 02/19/17 09:49; Admin Dose 200 MLS/HR; Start at 21:00 Bisacodyl (Dulcolax Supp) 10 mg BID PRN [place] CONSTIPATION; Start 02/04/17 at 19: 30 Sodium Biphosphate/ Sodium Phosphate (Fleet Enema) 133 ml BID PRN [place] CONSTIPATION; Start 02/04/17 at 19:30 Sodium Biphosphate/ Sodium Phosphate (Fleet Enema) 133 ml BID PRN [place] CONSTIPATION; Start 02/09/17 at 10:00 Docusate Sodium (Colace) 100 mg BID PO Last administered on 02/18/17 22:02; Admin Dose 100 MG; Start 02/12/17 at 09:00 Magnesium Hydroxide (Milk Of Mag) 30 ml DAILY PO Last administered on 02/18/17 09:06; Admin Dose 30 ML; Start 02/12/17 at 09:00 Amoxicillin/ Clavulanate Potassium (Augmentin) 875 mg BID PO Last administered on 02/19/17 09:52; Admin Dose 875 MG; Start 02/13/17 at 21:00; Stop 02/20/17 at 23:00 Methadone HCl (Methadone) 10 mg Q6H PO Last administered on 02/19/17 11:06; Admin Dose 10 MG; Start 02/14/17 at 16:00 Ondansetron HCl (Zofran Inj) 4 mg Q6H PRN IV NAUSEA AND/OR VOMITING; Start 02/14 at 15:30 Potassium Chloride (Klor-Con 10) 30 meq BID PO Last administered on 02/19/17 09:52; Admin Dose 30 MEQ; Start 02/16/17 at 21:00 Megestrol Acetate (Megace Susp) 800 mg DAILY PO Last administered on 02/19/17 09:51; Admin Dose 800 MG; Start 02/16/17 at 18:00 LUNA SCHMIDT M.D. Feb 19, 2017 13:39
--- NOTE | 2017-02-19 15:30 | CONS ---
Date/Time of Note Date/Time of Note DATE: 02/19/17 TIME: 15:24 Assessment/Plan Assessment/Plan Chief Complaint/Hosp Course SUBJECTIVE DATA: No acute changes overnight. Denies pain. Complains of Sore Throat. MICROBIOLOGY: Repeat blood cultures 02/16 negative. ANTIMICROBIAL: Colistin and Augmentin. INDWELLING: Right abdominal cholecystostomy catheter. MICROBIOLOGY: Blood culture on February 06 grew coag-negative Staph and carbapenem resistant coag pneumonia. Wound culture on admission grew Pseudomonas, Klebsiella pneumoniae, carbapenem resistant Enterococcus species. DIAGNOSTICS: The patient had repeat CT of the chest and abdomen that revealed mild focal lung consolidation and ground-glass opacity in keeping with multifocal pneumonia, improved but not resolved. Acute edematous pancreatitis with multiple acute peripancreatic collections around the entire pancreas and also extending into the mesentery, gastric ligaments and bilateral anterior perirenal spaces are mildly decreased in size from 02/02/2017. Hepatic splenomegaly is decreased from prior exam. Ill defined hyperdensities within the posterior right hepatic lobe are decreased and may represent multifocal fatty infiltration, 1.6 cm hypodensity in the spleen is more conspicuous, recommend attention on follow-up imaging, status post placement of percutaneous cholecystostomy catheter that is in good position. Gallbladder is decompressed. Body wall edema organized fluid deep to the skin in the lower back and overlying the left hip is similar to prior exam. The organized fluid collections deep to the skin appears similar to the collection in the abdominal cavity and may reflect fat necrosis related to pancreatitis. PHYSICAL EXAMINATION: GENERAL: Well-nourished, well-developed, wasted middle-aged man, who is alert, in no distress. HEENT: Head atraumatic, normocephalic. Sclerae anicteric. Buccal mucosa pink. NECK: Supple. CHEST: Chest rise symmetrical. Breath sounds clear. HEART: S1, S2. ABDOMEN: Soft, bowel sounds present. EXTREMITIES: Without cyanosis. ASSESSMENT: 1. Status post sepsis with shock. 2. Multiple necrotic wounds, infected, status post debridement. 3. Multidrug resistant Klebsiella pneumoniae bacteremia on February 06, repeat blood cultures ntive. 4. Acute pancreatitis. 5. Metastatic B-cell lymphoma. 6. History of cholecystostomy tube placement. 7. Sore Throat. PLAN: The patient remains stable. Continue Antibiotics. Pending wound debridement next week. Pain Management. [facility] pt/staff Problems: Consultation Date/Type/Reason Admit Date/Time Jan 09, 2017 at 19:08 Initial Consult Date 01/10/17 Type of Consultation: id Referring Provider: YAO RAHMAN Exam/Review of Systems Vital Signs Vitals Vital Signs Date Time Temp Pulse Resp B/P Pulse Ox O2 Delivery O2 Flow Rate FiO2 02/19/17 12:00 Nasal Cannula 2.0 02/19/17 11:29 98.6 105 18 112/61 98 02/18/17 18:39 28 Intake and Output 02/18/17 02/18/17 02/19/17 15:00 23:00 07:00 Intake Total 800 ml 600 ml Output Total 1715 ml 940 ml Balance -915 ml -340 ml Results Result Diagram: 02/19/17 0612 02/18/17 0620 Results 24 hrs Laboratory Tests Test 02/19/17 06:12 White Blood Count 6.5 Red Blood Count 3.22 L Hemoglobin 9.6 L Hematocrit 29.0 L Mean Corpuscular Volume 90.1 Mean Corpuscular Hemoglobin 29.8 Mean Corpuscular Hemoglobin Concent 33.1 Red Cell Distribution Width 18.6 H Platelet Count 257 Mean Platelet Volume 9.6 Neutrophils % 85.0 H Lymphocytes % 3.4 L Monocytes % 9.7 Eosinophils % 0.6 Basophils % 0.5 Nucleated Red Blood Cells % 0.0 Neutrophils # (Manual) 5.5 Lymphocytes # 0.2 L Monocytes # 0.6 Eosinophils # 0.0 Basophils # 0.0 Nucleated Red Blood Cells # 0.0 Medications Medications Current Medications Sodium Biphosphate/ Sodium Phosphate (Fleet Enema) 133 ml DAILY PRN OK CONSTIPATION; Start 01/09/17 at 19:30 Nitroglycerin (Nitroglycerin (Sl Tab) 0.4 Mg) 1 tab Q5M PRN SL ANGINA; Start at 19:30 Miscellaneous Information [facility] This patient aranda... PRN PRN XX WOUND CARE; Start 01/10/17 at 03:30 Ondansetron HCl (Zofran Inj) 4 mg Q6 IV Last administered on 02/19/17t 01:04; Admin Dose 4 MG; Start 01/10/17 at 15:30 IV Flush (NS 10 ml) 10 ml PRN PRN IV IV PROTOCOL; Start 01/10/17 at 20:30 Prednisone (Prednisone) 10 mg DAILY PO Last administered on 02/19/17 09:52; Admin Dose 10 MG; Start 01/15/17 at 09:00 Ergocalciferol (Drisdol) 50,000 unit We@09 PO Last administered on 02/15/17 09: 30; Admin Dose 50,000 UNIT; Start 01/25/17 at 09:00 Calcium Carbonate (Oyster Shell Calcium) 1.25 gm BID PO Last administered on 09:51; Admin Dose 1.25 GM; Start 01/24/17 at 21:00 Pantoprazole (Protonix Tab) 40 mg DAILY@06 PO Last administered on 02/19/17 06 :51; Admin Dose 40 MG; Start 01/26/17 at 06:00 Hydromorphone HCl (Dilaudid) 1 mg Q2 PRN IV PAIN Last administered on 09:49; Admin Dose 1 MG; Start 01/25/17 at 21:00 Atenolol (Tenormin) 25 mg BID PO Last administered on 02/19/17 09:53; Admin Dose 25 MG; Start 01/30/17 at 12:00 Enoxaparin Sodium (Lovenox) 30 mg DAILY SC Last administered on 02/19/17 09:50 ; Admin Dose 30 MG; Start 02/01/17 at 16:00 Lactobacillus Acidophilus 1 each 1 each BID PO Last administered on 02/19/17 09:51; Admin Dose 1 EACH; Start 02/03/17 at 21:00 Colistimethate Sodium/Sodium Chloride (Coly-Mycin/NS) 100 ml @ 200 mls/hr Q12 IVPB Last administered on 02/19/17 09:49; Admin Dose 200 MLS/HR; Start at 21:00 Bisacodyl (Dulcolax Supp) 10 mg BID PRN OK CONSTIPATION; Start 02/04/17 at 19: 30 Sodium Biphosphate/ Sodium Phosphate (Fleet Enema) 133 ml BID PRN OK CONSTIPATION; Start 02/04/17 at 19:30 Sodium Biphosphate/ Sodium Phosphate (Fleet Enema) 133 ml BID PRN OK CONSTIPATION; Start 02/09/17 at 10:00 Docusate Sodium (Colace) 100 mg BID PO Last administered on 02/18/17 22:02; Admin Dose 100 MG; Start 02/12/17 at 09:00 Magnesium Hydroxide (Milk Of Mag) 30 ml DAILY PO Last administered on 02/18/17 09:06; Admin Dose 30 ML; Start 02/12/17 at 09:00 Amoxicillin/ Clavulanate Potassium (Augmentin) 875 mg BID PO Last administered on 02/19/17 09:52; Admin Dose 875 MG; Start 02/13/17 at 21:00; Stop 02/20/17 at 23:00 Methadone HCl (Methadone) 10 mg Q6H PO Last administered on 02/19/17 11:06; Admin Dose 10 MG; Start 02/14/17 at 16:00 Ondansetron HCl (Zofran Inj) 4 mg Q6H PRN IV NAUSEA AND/OR VOMITING; Start 02/14 at 15:30 Potassium Chloride (Klor-Con 10) 30 meq BID PO Last administered on 02/19/17 09:52; Admin Dose 30 MEQ; Start 02/16/17 at 21:00 Megestrol Acetate (Megace Susp) 800 mg DAILY PO Last administered on 02/19/17 09:51; Admin Dose 800 MG; Start 02/16/17 at 18:00 JOSSELINE LAIRD NP Feb 19, 2017 15:30
--- NOTE | 2017-02-19 17:03 | PN ---
Date/Time of Note Date/Time of Note DATE: 02/19/17 TIME: 16:57 Assessment/Plan VTE Prophylaxis VTE Prophylaxis Intervention: LMWH Lines/Catheters IV Catheter Type (from Nrs): Saline Lock Urinary Cath still in place: No Assessment/Plan Chief Complaint/Hosp Course 31 yo male with anaplastic B Cell lymphoma who presented with abdominal pain, found to have 1. pancreatitis on pain control with DIilaudid s/p Cholecystomy 2 Fevers 102>104 s/p Cholecystomy however recurent fevers ?source ? wounds vs Bacterimia from PICC line s/p removal of PICC line 3 Hyponatremia on bactrim with d5w > recheck 4 Acute renal injury resolved 5 Right pleural effusion with atelectasis and right lung base pneumonia, resolved. 6. Large B cell anaplastic lymphoma; status post chemo 2 months 7. 2 Hypoparathyroidism On Calcitrol and Caco3 8 Severe anemia 9 Morbid obesity 10 excisional debridement of multiple sites including large area over the lumbar and flank region, 40 cm x 15 cm x 1 cm, smaller area on the right flank region, 10 cm x 4 cm x 1 cm, and an area behind the right knee, approximately 9 cm x 7 cm x 1 cm with removal of 15 cm x 10 cm x 1 cm soft tissue using scissors to a depth of 1 cm to subcutaneous fat 11 hypokalemia Assessment/Plan -po Abx on augmentin/colistin - Fluid restriction, repeat BMP tmw for Na - surgical debridement next week per Surgery - pain control on Methadone and Dilaudid - PT - Appreciate all consults - GI/DVT prophylaxsis Problems: Subjective 24 Hr Interval Summary Free Text/Dictation Pt feeling better today Exam/Review of Systems Vital Signs Vitals Vital Signs Date Time Temp Pulse Resp B/P Pulse Ox O2 Delivery O2 Flow Rate FiO2 02/19/17 16:00 Nasal Cannula 2.0 02/19/17 15:31 98.2 99 18 111/64 97 02/18/17 18:39 28 Intake and Output 02/18/17 02/18/17 02/19/17 15:00 23:00 07:00 Intake Total 800 ml 600 ml Output Total 1715 ml 940 ml Balance -915 ml -340 ml Exam Gen:awake,alert Neck:supple cvs:regular rate and rthym Abdomen:soft, non tender Ext 1 edema+ Multiple wounds Results Result Diagram: 02/19/17 0612 02/18/17 0620 Results 24 hrs Laboratory Tests Test 02/19/17 06:12 White Blood Count 6.5 Red Blood Count 3.22 L Hemoglobin 9.6 L Hematocrit 29.0 L Mean Corpuscular Volume 90.1 Mean Corpuscular Hemoglobin 29.8 Mean Corpuscular Hemoglobin Concent 33.1 Red Cell Distribution Width 18.6 H Platelet Count 257 Mean Platelet Volume 9.6 Neutrophils % 85.0 H Lymphocytes % 3.4 L Monocytes % 9.7 Eosinophils % 0.6 Basophils % 0.5 Nucleated Red Blood Cells % 0.0 Neutrophils # (Manual) 5.5 Lymphocytes # 0.2 L Monocytes # 0.6 Eosinophils # 0.0 Basophils # 0.0 Nucleated Red Blood Cells # 0.0 Medications Medications Current Medications Sodium Biphosphate/ Sodium Phosphate (Fleet Enema) 133 ml DAILY PRN OR CONSTIPATION; Start 01/09/17 at 19:30 Nitroglycerin (Nitroglycerin (Sl Tab) 0.4 Mg) 1 tab Q5M PRN SL ANGINA; Start at 19:30 [facility] This patient aranda... PRN PRN XX WOUND CARE; Start 01/10/17 at 03:30 Ondansetron HCl (Zofran Inj) 4 mg Q6 IV Last administered on 02/19/17 01:04; Admin Dose 4 MG; Start 01/10/17 at 15:30 IV Flush (NS 10 ml) 10 ml PRN PRN IV IV PROTOCOL; Start 01/10/17 at 20:30 Prednisone (Prednisone) 10 mg DAILY PO Last administered on 02/19/17 09:52; Admin Dose 10 MG; Start 01/15/17 at 09:00 Ergocalciferol (Drisdol) 50,000 unit We@ PO Last administered on 02/15/17 09: 30; Admin Dose 50,000 UNIT; Start 01/25/17 at 09:00 Calcium Carbonate (Oyster Shell Calcium) 1.25 gm BID PO Last administered on 09:51; Admin Dose 1.25 GM; Start 01/24/17 at 21:00 Pantoprazole (Protonix Tab) 40 mg DAILY@06 PO Last administered on 02/19/17 06 :51; Admin Dose 40 MG; Start 01/26/17 at 06:00 Hydromorphone HCl (Dilaudid) 1 mg Q2 PRN IV PAIN Last administered on 16:38; Admin Dose 1 MG; Start 01/25/17 at 21:00 Atenolol (Tenormin) 25 mg BID PO Last administered on 02/19/17 09:53; Admin Dose 25 MG; Start 01/30/17 at 12:00 Enoxaparin Sodium (Lovenox) 30 mg DAILY SC Last administered on 02/19/17 09:50 ; Admin Dose 30 MG; Start 02/01/17 at 16:00 Lactobacillus Acidophilus 1 each 1 each BID PO Last administered on 02/19/17 09:51; Admin Dose 1 EACH; Start 02/03/17 at 21:00 Colistimethate Sodium/Sodium Chloride (Coly-Mycin/NS) 100 ml @ 200 mls/hr Q12 IVPB Last administered on 02/19/17 09:49; Admin Dose 200 MLS/HR; Start at 21:00 Bisacodyl (Dulcolax Supp) 10 mg BID PRN OR CONSTIPATION; Start 02/04/17 at 19: 30 Sodium Biphosphate/ Sodium Phosphate (Fleet Enema) 133 ml BID PRN OR CONSTIPATION; Start 02/04/17 at 19:30 Sodium Biphosphate/ Sodium Phosphate (Fleet Enema) 133 ml BID PRN OR CONSTIPATION; Start 02/09/17 at 10:00 Docusate Sodium (Colace) 100 mg BID PO Last administered on 02/18/17 22:02; Admin Dose 100 MG; Start 02/12/17 at 09:00 Magnesium Hydroxide (Milk Of Mag) 30 ml DAILY PO Last administered on 02/18/17 09:06; Admin Dose 30 ML; Start 02/12/17 at 09:00 Amoxicillin/ Clavulanate Potassium (Augmentin) 875 mg BID PO Last administered on 02/19/17 09:52; Admin Dose 875 MG; Start 02/13/17 at 21:00; Stop 02/20/17 at 23:00 Methadone HCl (Methadone) 10 mg Q6H PO Last administered on 02/19/17 16:38; Admin Dose 10 MG; Start 02/14/17 at 16:00 Ondansetron HCl (Zofran Inj) 4 mg Q6H PRN IV NAUSEA AND/OR VOMITING; Start 02/14 at 15:30 Potassium Chloride (Klor-Con 10) 30 meq BID PO Last administered on 02/19/17 09:52; Admin Dose 30 MEQ; Start 02/16/17 at 21:00 Megestrol Acetate (Megace Susp) 800 mg DAILY PO Last administered on 02/19/17 09:51; Admin Dose 800 MG; Start 02/16/17 at 18:00 Phenol (Cepastat Lozenge) 1 lozenge Q6 PRN MT SORE THROAT; Start 02/19/17 at 15 :30 TAMARA HARTMANN MD Feb 19, 2017 17:03
--- NOTE | 2017-02-19 19:37 | CONS ---
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 His last chemo was a month ago and hadn't had since due to experiencing similar presenting symptoms. record from pt's oncologist Kain Wisdom - P Left flank mass, CT-guided core needle biopsies with touch imprints: Completely necrotic tissue, insufficient for pathologic evaluation. PER PT REPORT- reportedly scheduled for change in therapy due to what appears to be lack of adequate response CT ABD/PEL/CHEST:(+) multiple areas of nodules likely lymphoma, PT WANT TO GO HOME AND FAMILY ALREADY CALLED HIS PRIMARY ONCOLOGIST TO ARRANGE THE APPT JOSSELIN POST DC OK TO DC HOME WHEN CLEARED BY PRIMARY AND ALL CONSULTANTS WITH F-UP BY DR WISDMO LEUKOPENIA IN PT WITH HNL POST CHEMO AND WITH SEPTIC PICTURE MONITOR BLOOD COUNT CLOSELY POST NEUPOGEN WBC- FLUCTUATING IMPROVED ON NEUPOGEN X 2 DC NEUPOGEN PANCYTOPENIA POST CHEMO CONT TO MONITOR PRBC NEEDED PAIN DR WHITE ON THE CASE s/p Sepsis w/worsening lactic acidosis 2/2 PNA + Left flank/hip/leg decub Resolving HCAP => CT ABD/PEL/CHEST: (+) PNA * 01/24 RESPIRATORY CULTURE Final 3+ KLEB PNEUMONIAE CARBAPENEMASE ID W-UP pancreatitis. Abd Pain with N/V: 2/2 known lymphoma - pain mgmt - Anti-emetics Hyponatremia and Hypokalemia: 2/2 vomiting - NS IVF - replete K+ as needed Presumed RAMU: likely pre-renal 2/2 vomiting - cont IVF for now Problems: Consultation Date/Type/Reason Admit Date/Time Jan 09, 2017 at 19:08 Initial Consult Date 01/10/17 Type of Consultation: [facility] Referring Provider: YAO RAHMAN 24 HR Interval Summary Free Text/Dictation ALL NOTED NO NEW EVENTS Exam/Review of Systems Vital Signs Vitals Vital Signs Date Time Temp Pulse Resp B/P Pulse Ox O2 Delivery O2 Flow Rate FiO2 02/19/17 16:00 Nasal Cannula 2.0 02/19/17 16:00 97 02/19/17 15:31 98.2 18 111/64 97 02/18/17 18:39 28 Intake and Output 02/18/17 02/18/17 02/19/17 15:00 23:00 07:00 Intake Total 800 ml 600 ml Output Total 1715 ml 940 ml Balance -915 ml -340 ml Exam GENERAL: This is a well-developed, ill-appearing, middle-aged, man, who is awake, in no distress. HEENT: Head atraumatic, normocephalic. Sclerae anicteric. Buccal mucosa pink and dry. NECK: Supple. CHEST: Rise symmetrical. Breath sounds diminished at the bases. HEART: S1, S2. ABDOMEN: Soft, bowel sounds present. EXTREMITIES: Without cyanosis. + WOUNDS Results Result Diagram: 02/19/17 0612 02/18/17 0620 Results 24 hrs Laboratory Tests Test 02/19/17 06:12 White Blood Count 6.5 Red Blood Count 3.22 L Hemoglobin 9.6 L Hematocrit 29.0 L Mean Corpuscular Volume 90.1 Mean Corpuscular Hemoglobin 29.8 Mean Corpuscular Hemoglobin Concent 33.1 Red Cell Distribution Width 18.6 H Platelet Count 257 Mean Platelet Volume 9.6 Neutrophils % 85.0 H Lymphocytes % 3.4 L Monocytes % 9.7 Eosinophils % 0.6 Basophils % 0.5 Nucleated Red Blood Cells % 0.0 Neutrophils # (Manual) 5.5 Lymphocytes # 0.2 L Monocytes # 0.6 Eosinophils # 0.0 Basophils # 0.0 Nucleated Red Blood Cells # 0.0 Medications Medications Current Medications Sodium Biphosphate/ Sodium Phosphate (Fleet Enema) 133 ml DAILY PRN OK CONSTIPATION; Start 01/09/17 at 19:30 Nitroglycerin (Nitroglycerin (Sl Tab) 0.4 Mg) 1 tab Q5M PRN SL ANGINA; Start at 19:30 Miscellaneous Information (Pending [facility] Order For Wound Care) This patient aranda... PRN PRN XX WOUND CARE; Start 01/10/17 at 03:30 Ondansetron HCl (Zofran Inj) 4 mg Q6 IV Last administered on 02/19/17t 01:04; Admin Dose 4 MG; Start 01/10/17 at 15:30 IV Flush (NS 10 ml) 10 ml PRN PRN IV IV PROTOCOL; Start 01/10/17 at 20:30 Prednisone (Prednisone) 10 mg DAILY PO Last administered on 02/19/17 09:52; Admin Dose 10 MG; Start 01/15/17 at 09:00 Ergocalciferol (Drisdol) 50,000 unit We@09 PO Last administered on 02/15/17 09: 30; Admin Dose 50,000 UNIT; Start 01/25/17 at 09:00 Calcium Carbonate (Oyster Shell Calcium) 1.25 gm BID PO Last administered on 09:51; Admin Dose 1.25 GM; Start 01/24/17 at 21:00 Pantoprazole (Protonix Tab) 40 mg DAILY@06 PO Last administered on 02/19/17 06 :51; Admin Dose 40 MG; Start 01/26/17 at 06:00 Hydromorphone HCl (Dilaudid) 1 mg Q2 PRN IV PAIN Last administered on 16:38; Admin Dose 1 MG; Start 01/25/17 at 21:00 Atenolol (Tenormin) 25 mg BID PO Last administered on 02/19/17 09:53; Admin Dose 25 MG; Start 01/30/17 at 12:00 Enoxaparin Sodium (Lovenox) 30 mg DAILY SC Last administered on 02/19/17 09:50 ; Admin Dose 30 MG; Start 02/01/17 at 16:00 Lactobacillus Acidophilus 1 each 1 each BID PO Last administered on 02/19/17 09:51; Admin Dose 1 EACH; Start 02/03/17 at 21:00 Colistimethate Sodium/Sodium Chloride (Coly-Mycin/NS) 100 ml @ 200 mls/hr Q12 IVPB Last administered on 02/19/17 09:49; Admin Dose 200 MLS/HR; Start at 21:00 Bisacodyl (Dulcolax Supp) 10 mg BID PRN OK CONSTIPATION; Start 02/04/17 at 19: 30 Sodium Biphosphate/ Sodium Phosphate (Fleet Enema) 133 ml BID PRN OK CONSTIPATION; Start 02/04/17 at 19:30 Sodium Biphosphate/ Sodium Phosphate (Fleet Enema) 133 ml BID PRN OK CONSTIPATION; Start 02/09/17 at 10:00 Docusate Sodium (Colace) 100 mg BID PO Last administered on 02/18/17 22:02; Admin Dose 100 MG; Start 02/12/17 at 09:00 Magnesium Hydroxide (Milk Of Mag) 30 ml DAILY PO Last administered on 02/18/17 09:06; Admin Dose 30 ML; Start 02/12/17 at 09:00 Amoxicillin/ Clavulanate Potassium (Augmentin) 875 mg BID PO Last administered on 02/19/17 09:52; Admin Dose 875 MG; Start 02/13/17 at 21:00; Stop 02/20/17 at 23:00 Methadone HCl (Methadone) 10 mg Q6H PO Last administered on 02/19/17 16:38; Admin Dose 10 MG; Start 02/14/17 at 16:00 Ondansetron HCl (Zofran Inj) 4 mg Q6H PRN IV NAUSEA AND/OR VOMITING; Start 02/14 at 15:30 Potassium Chloride (Klor-Con 10) 30 meq BID PO Last administered on 02/19/17 09:52; Admin Dose 30 MEQ; Start 02/16/17 at 21:00 Megestrol Acetate (Megace Susp) 800 mg DAILY PO Last administered on 02/19/17 09:51; Admin Dose 800 MG; Start 02/16/17 at 18:00 Phenol (Cepastat Lozenge) 1 lozenge Q6 PRN MT SORE THROAT; Start 02/19/17 at 15 :30 MOIRA BIRMINGHAM MD Feb 19, 2017 19:37
[2017-02-19] MEDS: CEPASTAT LOZENGE MT PRN (22:09)
[2017-02-20] VITALS (11 sets, daily range): BP systolic 102–121; BP diastolic 55–73; PULSE 84–103; RESP 16–19
[2017-02-20] MEDS: HYDROmorphONE 1 MG/ML SYG IV PRN ×3 (03:50→17:56)
[2017-02-20] MEDS: CEPASTAT LOZENGE MT PRN ×3 (05:33→20:09)
[2017-02-20] MEDS: PANTOPRAZOLE (EC) 40 MG TAB PO SCH (05:33)
[2017-02-20] MEDS: METHADONE 10 MG TAB PO SCH ×4 (05:34→22:42)
[2017-02-20] MEDS: ONDANSETRON 4 MG INJ IV SCH ×4 (05:34→17:29)
[2017-02-20 07:32] LABS: ABNORMAL IP MESSAGE 1; BASOPHILS % 0.5 % (0.0-2.0); EOSINOPHILS # 0.1 10^3/ul (0.0-0.5); EOSINOPHILS % 1.2 % (0.0-7.0); HEMATOCRIT 29.1 % (42.0-52.0); HEMOGLOBIN 9.9 g/dl (14.0-18.0); LYMPHOCYTES # 0.3 10^3/ul (0.8-2.9); LYMPHOCYTES % 4.7 % (15.0-51.0); MEAN CORPUSCULAR HEMOGLOBIN 30.7 pg (29.0-33.0); MEAN CORPUSCULAR VOLUME 90.1 fl (82.0-101.0); MEAN PLATELET VOLUME 10.2 fl (7.4-10.4); MONOCYTE # 0.6 10^3/ul (0.3-0.9); MONOCYTES % 10.9 % (0.0-11.0); NEUTROPHILS % 81.3 % (39.0-77.0); PLATELET COUNT 250 10^3/UL (140-415); POSITIVE DIFF @See below; RED BLOOD COUNT 3.23 10^6/ul (4.70-6.10); WHITE BLOOD COUNT 5.8 10^3/ul (4.8-10.8)
[2017-02-20 08:00] LABS: PHOSPHORUS 4.4 mg/dl (2.5-4.9)
[2017-02-20 08:10] LABS: ALBUMIN 3.5 g/dl (3.3-4.9); ALBUMIN/GLOBULIN RATIO 1.02; BILIRUBIN,INDIRECT 0.6 mg/dl (0-1.1); BILIRUBIN,TOTAL 0.6 mg/dl (0.2-1.3); CALCIUM 10.2 mg/dl (8.4-10.2); CREATININE 0.95 mg/dl (0.61-1.24); POTASSIUM 3.6 mmol/L (3.5-5.1); TOTAL PROTEIN 6.9 g/dl (6.1-8.1)
[2017-02-20] MEDS: MAGNESIUM HYDROXIDE 30ML CUP PO SCH (09:00)
[2017-02-20] MEDS: POTASSIUM CHLORIDE (SR) 10 MEQ TAB PO SCH ×2 (10:13→20:09)
[2017-02-20] MEDS: L ACIDOPHIL/B LACTIS/B LONGUM CAPSULE PO SCH ×2 (10:14→20:09)
[2017-02-20] MEDS: DOCUSATE SODIUM 100 MG CAP PO SCH ×2 (10:15→20:09)
[2017-02-20] MEDS: AMOXICILLIN/CLAV 875 MG TAB PO SCH ×2 (10:16→20:09)
[2017-02-20] MEDS: predniSONE 20 MG TAB PO SCH (10:16)
[2017-02-20] MEDS: CALCIUM CARBONATE 1.25 GM TAB PO SCH ×2 (10:16→20:09)
[2017-02-20] MEDS: MEGESTROL (40 MG/ML) 10ML CUP PO SCH (10:18)
[2017-02-20] MEDS: ATENOLOL 25 MG TAB PO SCH ×2 (10:21→20:09)
[2017-02-20] MEDS: ENOXAPARIN 30 MG/0.3 ML SYG SC SCH (10:39)
[2017-02-20] MEDS: COLISTIMETHATE 150 MG in SOD CHLORIDE 0.9% 100 ML IVPB SCH ×2 (11:03→20:17)
--- NOTE | 2017-02-20 11:14 | CONS ---
Date/Time of Note Date/Time of Note DATE: 02/20/17 TIME: 11:12 Assessment/Plan Assessment/Plan Chief Complaint/Hosp Course IMP: 1.Tachycardia- S Tach-NL Ft4. Likely driven by fevers/NL EF by echo this admit. Currently improved with defervescence of fevers 2.lymphoma 3.HTN 4.anemia 5.obesity 6.Hyponatremia-recurrent 7.Pancreatitis-improved 8. Fevers 9. Cholecystitis s/p drain placement 10. Bactreremia-BLd cx 02/06 Recc: -Tele -serial ecg's -continue BB with currently reasonable HR control -Continue abx's and f/u cx data -Pain control -ongoing onc eval and f/u -Follow na closely Problems: Consultation Date/Type/Reason Admit Date/Time Jan 09, 2017 at 19:08 Initial Consult Date 01/15/17 Type of Consultation: cardiology Reason for Consultation CHF Referring Provider: YAO RAHMAN Exam/Review of Systems Vital Signs Vitals Vital Signs Date Time Temp Pulse Resp B/P Pulse Ox O2 Delivery O2 Flow Rate FiO2 02/20/17 08:33 85 02/20/17 07:37 98.5 18 107/57 96 02/19/17 20:00 Nasal Cannula 2.0 02/18/17 18:39 28 Intake and Output 02/19/17 02/19/17 02/20/17 15:00 23:00 07:00 Intake Total 600 ml 500 ml Output Total 1800 ml 1960 ml Balance -1200 ml -1460 ml Exam Review of Systems: CONSTITUTIONAL: No fevers, chills. PULMONARY: No sob CARDIOVASCULAR: No chest pain/palpitations GASTROINTESTINAL: No nausea/vomiting. GENITOURINARY: No hematuria/dysuria. MUSCULOSKELETAL: No myagias/arthalgias. PSYCHIATRIC: The patient denies depression. NEUROLOGIC: No weakness Constitutional: other (slweping) Head: normocephalic ENMT: mucosa pink and moist Neck: jvd (9 cm water), supple Respiratory: diminished breath sounds (at bases/B) Cardiovascular: regular rate and rhythm Gastrointestinal: non-tender, soft Musculoskeletal: muscle tone (normal) Extremities: edema (none) Neurological: other (No focal deficits) Results Result Diagram: 02/20/17 0645 02/20/17 0645 Results 24 hrs Laboratory Tests Test 02/20/17 06:45 White Blood Count 5.8 Red Blood Count 3.23 L Hemoglobin 9.9 L Hematocrit 29.1 L Mean Corpuscular Volume 90.1 Mean Corpuscular Hemoglobin 30.7 Mean Corpuscular Hemoglobin Concent 34.0 Red Cell Distribution Width 19.0 H Platelet Count 250 Mean Platelet Volume 10.2 Neutrophils % 81.3 H Lymphocytes % 4.7 L Monocytes % 10.9 Eosinophils % 1.2 Basophils % 0.5 Nucleated Red Blood Cells % 0.0 Neutrophils # (Manual) 4.7 Lymphocytes # 0.3 L Monocytes # 0.6 Eosinophils # 0.1 Basophils # 0.0 Nucleated Red Blood Cells # 0.0 Sodium Level 130 L Potassium Level 3.6 Chloride Level 95 L Carbon Dioxide Level 25 Anion Gap 14 Blood Urea Nitrogen 7 Creatinine 0.95 Glucose Level 84 Calcium Level 10.2 Phosphorus Level 4.4 Magnesium Level 1.0 L Total Bilirubin 0.6 Direct Bilirubin 0.00 Indirect Bilirubin 0.6 Aspartate Amino Transf (AST/SGOT) 34 Alanine Aminotransferase (ALT/SGPT) 30 Alkaline Phosphatase 169 H Total Protein 6.9 Albumin 3.5 Globulin 3.40 H Albumin/Globulin Ratio 1.02 Medications Medications Current Medications Sodium Biphosphate/ Sodium Phosphate (Fleet Enema) 133 ml DAILY PRN [place] CONSTIPATION; Start 01/09/17 at 19:30 Nitroglycerin (Nitroglycerin (Sl Tab) 0.4 Mg) 1 tab Q5M PRN SL ANGINA; Start at 19:30 Miscellaneous Information [facility] This patient aranda... PRN PRN XX WOUND CARE; Start 01/10/17 at 03:30 Ondansetron HCl (Zofran Inj) 4 mg Q6 IV Last administered on 02/19/17 01:04; Admin Dose 4 MG; Start 01/10/17 at 15:30 IV Flush (NS 10 ml) 10 ml PRN PRN IV IV PROTOCOL; Start 01/10/17 at 20:30 Prednisone (Prednisone) 10 mg DAILY PO Last administered on 02/20/17 10:16; Admin Dose 10 MG; Start 01/15/17 at 09:00 Ergocalciferol (Drisdol) 50,000 unit We@09 PO Last administered on 02/15/17 09: 30; Admin Dose 50,000 UNIT; Start 01/25/17 at 09:00 Calcium Carbonate (Oyster Shell Calcium) 1.25 gm BID PO Last administered on 10:16; Admin Dose 1.25 GM; Start 01/24/17 at 21:00 Pantoprazole (Protonix Tab) 40 mg DAILY@06 PO Last administered on 02/20/17 05 :33; Admin Dose 40 MG; Start 01/26/17 at 06:00 Hydromorphone HCl (Dilaudid) 1 mg Q2 PRN IV PAIN Last administered on 03:50; Admin Dose 1 MG; Start 01/25/17 at 21:00 Atenolol (Tenormin) 25 mg BID PO Last administered on 02/20/17 10:21; Admin Dose 25 MG; Start 01/30/17 at 12:00 Enoxaparin Sodium (Lovenox) 30 mg DAILY SC Last administered on 02/20/17 10:39 ; Admin Dose 30 MG; Start 02/01/17 at 16:00 Lactobacillus Acidophilus 1 each 1 each BID PO Last administered on 02/20/17 10:14; Admin Dose 1 EACH; Start 02/03/17 at 21:00 Colistimethate Sodium/Sodium Chloride (Coly-Mycin/NS) 100 ml @ 200 mls/hr Q12 IVPB Last administered on 02/20/17 11:03; Admin Dose 200 MLS/HR; Start at 21:00 Bisacodyl (Dulcolax Supp) 10 mg BID PRN [place] CONSTIPATION; Start 02/04/17 at 19: 30 Sodium Biphosphate/ Sodium Phosphate (Fleet Enema) 133 ml BID PRN [place] CONSTIPATION; Start 02/04/17 at 19:30 Sodium Biphosphate/ Sodium Phosphate (Fleet Enema) 133 ml BID PRN [place] CONSTIPATION; Start 02/09/17 at 10:00 Docusate Sodium (Colace) 100 mg BID PO Last administered on 02/20/17 10:15; Admin Dose 100 MG; Start 02/12/17 at 09:00 Magnesium Hydroxide (Milk Of Mag) 30 ml DAILY PO Last administered on 02/18/17 09:06; Admin Dose 30 ML; Start 02/12/17 at 09:00 Amoxicillin/ Clavulanate Potassium (Augmentin) 875 mg BID PO Last administered on 02/20/17 10:16; Admin Dose 875 MG; Start 02/13/17 at 21:00; Stop 02/20/17 at 23:00 Methadone HCl (Methadone) 10 mg Q6H PO Last administered on 02/20/17 10:15; Admin Dose 10 MG; Start 02/14/17 at 16:00 Ondansetron HCl (Zofran Inj) 4 mg Q6H PRN IV NAUSEA AND/OR VOMITING; Start 02/14 at 15:30 Potassium Chloride (Klor-Con 10) 30 meq BID PO Last administered on 02/20/17 10:13; Admin Dose 30 MEQ; Start 02/16/17 at 21:00 Megestrol Acetate (Megace Susp) 800 mg DAILY PO Last administered on 02/20/17 10:18; Admin Dose 800 MG; Start 02/16/17 at 18:00 Phenol (Cepastat Lozenge) 1 lozenge Q6 PRN MT SORE THROAT Last administered on 02/20/17 05:33; Admin Dose 1 LOZENGE; Start 02/19/17 at 15:30 LARRY SANTANA Feb 20, 2017 11:14
[2017-02-20] MEDS ORDERED: MAGNESIUM SULFATE 4 GM/100 ML 100 ML IVPB ONE (13:00)
--- NOTE | 2017-02-20 13:30 | PN ---
Date/Time of Note Date/Time of Note DATE: 02/20/17 TIME: 13:28 Assessment/Plan Lines/Catheters IV Catheter Type (from Nrsg): Saline Lock [place] in Place (from Nrsg): No Assessment/Plan Assessment/Plan [facility] Progress Note Date of Service: 02/20/2017 Place of service: [facility] 5W tele Today's Assessment & Plan: Overall stable. Awaiting connection to Dr. Dayday Martinez at [facility] or Dr. Nehemias Talavera at [facility]. Explained to patient and answered all questions. With above assessment, I've recommended the followin. Continue current cares 2. Keep in-house 3. Continue attempt at transferring patient to 1 of the above physicians 4. Possible re-examination of the back and possible further debridement of the sacral decubitus ulcer in a few days Also see below for previous plans that are applicable today: 1. Continue aggressive medical management 2. Cont diet as tolerated 3. Follow GIs recommendations 4. If it would make a difference in management, may consider percutaneous biopsy of segment 6 area of abnormality in the liver 5. Multidisciplinary tumor board presentation and discussions 6. Consideration for clinical trials once improved medically 7. LFT's, amylase and lipase checks tomorrow with labs 8. Will likely benefit from aggressive bowel regimen (some of the pain likely from constipation) 9. Percutaneous cholecystostomy drain care teachings to patient and family 10. Aggressive wound care Thank you very much for having me involved in the care of this very pleasant patient and wonderful family. If you have any questions, please feel free to contact me at [phone]. Nature of presenting problem: High severity Please note that, given the extensive number of diagnoses or management options , the extensive amount and/or complexity of data needed to be reviewed, and high risk of complications and/or morbidity or mortality, this qualifies as high complexity type of decision-making. Disclaimer: Inadvertent spelling and grammatical errors are likely due to EHR/ dictation software use and do not reflect on the quality of delivered patient care. Also, please note that the electronic time recorded on this node does not necessarily reflect the actual time of the visit. 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 HIDA scan positive 01/28/2017. Status post percutaneous cholecystostomy drain placement 02/02/2017. Comorbidities: 1. Multiple superficial wounds on the back and flank region and behind the right knee. S/P excisional debridement of multiple sites including large area over the lumbar and flank region, 40 cm x 15 cm x 1 cm, smaller area on the right flank region, 10 cm x 4 cm x 1 cm, and an area behind the right knee, approximately 9 cm x 7 cm x 1 cm with removal of 15 cm x 10 cm x 1 cm soft tissue using scissors to a depth of 1 cm to subcutaneous fat at [facility] 02/09/17 2. BMI 40.7 3. Small right pleural effusion with atelectasis and right lung base pneumonia. 4. Large B cell anaplastic lymphoma; status post chemo 1 month prior to presentation 5. Sepsis 6. Hyponatremia 7. Hypokalemia 8. Acute renal injury 9. Status post percutaneous cholecystostomy drain placement 02/02/2017 Subjective: No major events or complaints overnight; feels okay; no significant abdominal pain today; slight back pain in the surgical area; no significant reported nausea or vomiting and no major diarrhea; no sob or cp; + flatus; + BM; minimal to no activity. Objective: Vitals: See below I's & O's: See below Exam: GENERAL: On exam, the patient was lying in bed and appeared to be comfortable and in no acute distress. ABDOMEN: Soft, minimal to no tenderness and nondistended. There are no peritoneal signs or guarding. Perc GB drain with thick green bilious output. SKIN: Skin appears to be pink and feels warm to touch. NEUROLOGIC: Patient is awake, alert, and follows commands appropriately. Labs: See below Exam/Review of Systems Vital Signs Vitals Vital Signs Date Time Temp Pulse Resp B/P Pulse Ox O2 Delivery O2 Flow Rate FiO2 02/20/17 12:56 103 02/20/17 11:24 Nasal Cannula 2.0 02/20/17 11:24 98.6 19 121/69 96 02/18/17 18:39 28 Intake and Output 02/19/17 02/19/17 02/20/17 15:00 23:00 07:00 Intake Total 600 ml 500 ml Output Total 1800 ml 1960 ml Balance -1200 ml -1460 ml Results Result Diagram: 02/20/17 0645 02/20/17 0645 LENKA HERNANDEZ M.D. Feb 20, 2017 13:30
--- NOTE | 2017-02-20 16:13 | PDOCDIS ---
Discharge Instructions CONDITION Patient Condition: Stable HOME CARE INSTRUCTIONS: Special Diet: 2 gm Na ACTIVITY: Activity Restrictions: Slowly Increase Activity FOLLOW UP/APPOINTMENTS Follow-up Plan f/u own pcp 1wk see dr martines 1 wk, se own oncologist as arrarnged by case packer and sealer this wk arrange for home health TAWNY CELIS MD Feb 20, 2017 16:13
[2017-02-20] MEDS ORDERED: L.AC460C PO (16:21)
[2017-02-20] MEDS ORDERED: METH10TA2 PO (16:21)
[2017-02-20] MEDS ORDERED: ATEN-51 PO (16:21)
[2017-02-20] MEDS ORDERED: ERGO500037 PO (16:21)
[2017-02-20] MEDS ORDERED: UDMOM PO (16:21)
[2017-02-20] MEDS ORDERED: PANT40TA4 PO (16:21)
[2017-02-20] MEDS ORDERED: LEVALBUTEROL HHN (16:21)
[2017-02-20] MEDS ORDERED: AMOX1TAB10 PO (16:21)
[2017-02-20] MEDS ORDERED: Ipratropium 0.02% (Neb) HHN (16:21)
[2017-02-20] MEDS ORDERED: NIT4 SL (16:21)
[2017-02-20] MEDS ORDERED: MAGN500T PO (16:21)
[2017-02-20] MEDS ORDERED: Calcium Carbonate PO (16:21)
[2017-02-20] MEDS ORDERED: MEGE400O20 PO (16:21)
[2017-02-20] MEDS ORDERED: POTA10TA37 PO (16:21)
--- NOTE | 2017-02-20 17:54 | PN ---
Date/Time of Note Date/Time of Note DATE: 02/20/17 TIME: 17:51 Assessment/Plan VTE Prophylaxis VTE Prophylaxis Intervention: other Lines/Catheters [facility]from [facility] Saline Lock Urinary Cath still in place: No Assessment/Plan Chief Complaint/Hosp Course 1. pancreatitis on pain control with s/p Cholecystomy 2 s/p Cholecystomy 3 Hyponatremia 4 Acute renal injury resolved 5 Right pleural effusion with atelectasis and right lung base pneumonia, resolved. 6. Large B cell anaplastic lymphoma; status post chemo 1 month, leukopenia now neutropenic 7. 2 Hypoparathyroidism On Calcitrol and Caco3 8 Severe anemia 9 Morbid obesity 10 excisional debridement of multiple sites including large area over the lumbar and flank region, 40 cm x 15 cm x 1 cm, smaller area on the right flank region, 10 cm x 4 cm x 1 cm, and an area behind the right knee, approximately 9 cm x 7 cm x 1 cm with removal of 15 cm x 10 cm x 1 cm soft tissue using scissors to a depth of 1 cm to subcutaneous fat 11 hypokalemia better plan iv mg home once cleared Problems: Subjective 24 Hr Interval Summary Respiratory: no complaints Cardiovascular: no complaints Gastrointestinal: No diarrhea (neg) Musculoskeletal: no complaints Skin: skin lesions Exam/Review of Systems Vital Signs Vitals Vital Signs Date Time Temp Pulse Resp B/P Pulse Ox O2 Delivery O2 Flow Rate FiO2 02/20/17 16:24 88 02/20/17 15:44 98.0 19 109/73 98 02/20/17 15:39 2.0 02/20/17 11:24 Nasal Cannula 02/18/17 18:39 28 Intake and Output 02/19/17 02/19/17 02/20/17 15:00 23:00 07:00 Intake Total 600 ml 500 ml Output Total 1800 ml 1960 ml Balance -1200 ml -1460 ml Exam Neck: supple Respiratory: clear to auscultation Cardiovascular: regular rate and rhythm Gastrointestinal: soft Musculoskeletal: muscle weakness Extremities: edema (tr) Results Result Diagram: 02/20/17 0645 02/20/17 0645 Results 24 hrs Laboratory Tests Test 02/20/17 06:45 White Blood Count 5.8 Red Blood Count 3.23 L Hemoglobin 9.9 L Hematocrit 29.1 L Mean Corpuscular Volume 90.1 Mean Corpuscular Hemoglobin 30.7 Mean Corpuscular Hemoglobin Concent 34.0 Red Cell Distribution Width 19.0 H Platelet Count 250 Mean Platelet Volume 10.2 Neutrophils % 81.3 H Lymphocytes % 4.7 L Monocytes % 10.9 Eosinophils % 1.2 Basophils % 0.5 Nucleated Red Blood Cells % 0.0 Neutrophils # (Manual) 4.7 Lymphocytes # 0.3 L Monocytes # 0.6 Eosinophils # 0.1 Basophils # 0.0 Nucleated Red Blood Cells # 0.0 Sodium Level 130 L Potassium Level 3.6 Chloride Level 95 L Carbon Dioxide Level 25 Anion Gap 14 Blood Urea Nitrogen 7 Creatinine 0.95 Glucose Level 84 Calcium Level 10.2 Phosphorus Level 4.4 Magnesium Level 1.0 L Total Bilirubin 0.6 Direct Bilirubin 0.00 Indirect Bilirubin 0.6 Aspartate Amino Transf (AST/SGOT) 34 Alanine Aminotransferase (ALT/SGPT) 30 Alkaline Phosphatase 169 H Total Protein 6.9 Albumin 3.5 Globulin 3.40 H Albumin/Globulin Ratio 1.02 Medications Medications Current Medications Sodium Biphosphate/ Sodium Phosphate (Fleet Enema) 133 ml DAILY PRN [place] CONSTIPATION; Start 01/09/17 at 19:30 Nitroglycerin (Nitroglycerin (Sl Tab) 0.4 Mg) 1 tab Q5M PRN SL ANGINA; Start at 19:30 Miscellaneous Information (Pending [facility] Order For Wound Care) This patient aranda... PRN PRN XX WOUND CARE; Start 01/10/17 at 03:30 Ondansetron HCl (Zofran Inj) 4 mg Q6 IV Last administered on 02/19/17 01:04; Admin Dose 4 MG; Start 01/10/17 at 15:30 IV Flush (NS 10 ml) 10 ml PRN PRN IV IV PROTOCOL; Start 01/10/17 at 20:30 Prednisone (Prednisone) 10 mg DAILY PO Last administered on 02/20/17 10:16; Admin Dose 10 MG; Start 01/15/17 at 09:00 Ergocalciferol (Drisdol) 50,000 unit We@09 PO Last administered on 02/15/17 09: 30; Admin Dose 50,000 UNIT; Start 01/25/17 at 09:00 Calcium Carbonate (Oyster Shell Calcium) 1.25 gm BID PO Last administered on 10:16; Admin Dose 1.25 GM; Start 01/24/17 at 21:00 Pantoprazole (Protonix Tab) 40 mg DAILY@06 PO Last administered on 02/20/17 05 :33; Admin Dose 40 MG; Start 01/26/17 at 06:00 Hydromorphone HCl (Dilaudid) 1 mg Q2 PRN IV PAIN Last administered on 10:41; Admin Dose 1 MG; Start 01/25/17 at 21:00 Atenolol (Tenormin) 25 mg BID PO Last administered on 02/20/17 10:21; Admin Dose 25 MG; Start 01/30/17 at 12:00 Enoxaparin Sodium (Lovenox) 30 mg DAILY SC Last administered on 02/20/17 10:39 ; Admin Dose 30 MG; Start 02/01/17 at 16:00 Lactobacillus Acidophilus 1 each 1 each BID PO Last administered on 02/20/17 10:14; Admin Dose 1 EACH; Start 02/03/17 at 21:00 Colistimethate Sodium/Sodium Chloride (Coly-Mycin/NS) 100 ml @ 200 mls/hr Q12 IVPB Last administered on 02/20/17 11:03; Admin Dose 200 MLS/HR; Start at 21:00 Bisacodyl (Dulcolax Supp) 10 mg BID PRN [place] CONSTIPATION; Start 02/04/17 at 19: 30 Sodium Biphosphate/ Sodium Phosphate (Fleet Enema) 133 ml BID PRN [place] CONSTIPATION; Start 02/04/17 at 19:30 Sodium Biphosphate/ Sodium Phosphate (Fleet Enema) 133 ml BID PRN [place] CONSTIPATION; Start 02/09/17 at 10:00 Docusate Sodium (Colace) 100 mg BID PO Last administered on 02/20/17 10:15; Admin Dose 100 MG; Start 02/12/17 at 09:00 Magnesium Hydroxide (Milk Of Mag) 30 ml DAILY PO Last administered on 02/18/17 09:06; Admin Dose 30 ML; Start 02/12/17 at 09:00 Amoxicillin/ Clavulanate Potassium (Augmentin) 875 mg BID PO Last administered on 02/20/17 10:16; Admin Dose 875 MG; Start 02/13/17 at 21:00; Stop 02/20/17 at 23:00 Methadone HCl (Methadone) 10 mg Q6H PO Last administered on 02/20/17 16:10; Admin Dose 10 MG; Start 02/14/17 at 16:00 Ondansetron HCl (Zofran Inj) 4 mg Q6H PRN IV NAUSEA AND/OR VOMITING; Start 02/14 at 15:30 Potassium Chloride (Klor-Con 10) 30 meq BID PO Last administered on 02/20/17 10:13; Admin Dose 30 MEQ; Start 02/16/17 at 21:00 Megestrol Acetate (Megace Susp) 800 mg DAILY PO Last administered on 02/20/17 10:18; Admin Dose 800 MG; Start 02/16/17 at 18:00 Phenol (Cepastat Lozenge) 1 lozenge Q6 PRN MT SORE THROAT Last administered on 02/20/17 10:40; Admin Dose 1 LOZENGE; Start 02/19/17 at 15:30 TAWNY CELIS MD Feb 20, 2017 17:54
--- NOTE | 2017-02-20 18:11 | CONS ---
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 His last chemo was a month ago and hadn't had since due to experiencing similar presenting symptoms. record from pt's oncologist Kain Wisdom - P Left flank mass, CT-guided core needle biopsies with touch imprints: Completely necrotic tissue, insufficient for pathologic evaluation. PER PT REPORT- reportedly scheduled for change in therapy due to what appears to be lack of adequate response CT ABD/PEL/CHEST:(+) multiple areas of nodules likely lymphoma, PT WANT TO GO HOME AND FAMILY ALREADY CALLED HIS PRIMARY ONCOLOGIST TO ARRANGE THE APPT JOSSELIN POST DC OK TO DC HOME WHEN CLEARED BY PRIMARY AND ALL CONSULTANTS WITH F-UP BY DR WISDOM LEUKOPENIA IN PT WITH HNL POST CHEMO AND WITH SEPTIC PICTURE MONITOR BLOOD COUNT CLOSELY POST NEUPOGEN WBC- FLUCTUATING IMPROVED ON NEUPOGEN X 2 DC NEUPOGEN PANCYTOPENIA POST CHEMO CONT TO MONITOR PRBC NEEDED PAIN DR WHITE ON THE CASE s/p Sepsis w/worsening lactic acidosis 2/2 PNA + Left flank/hip/leg decub Resolving HCAP => CT ABD/PEL/CHEST: (+) PNA * 01/24 RESPIRATORY CULTURE Final 3+ KLEB PNEUMONIAE CARBAPENEMASE ID W-UP pancreatitis. Abd Pain with N/V: 2/2 known lymphoma - pain mgmt - Anti-emetics Hyponatremia and Hypokalemia: 2/2 vomiting - NS IVF - replete K+ as needed Presumed RAMU: likely pre-renal 2/2 vomiting - cont IVF for now Problems: Consultation Date/Type/Reason Admit Date/Time Jan 09, 2017 at 19:08 Initial Consult Date 01/10/17 [facility] Referring Provider: YAO RAHMAN 24 HR Interval Summary Free Text/Dictation ALL NOTED NO NEW EVENTS Exam/Review of Systems Vital Signs Vitals Vital Signs Date Time Temp Pulse Resp B/P Pulse Ox O2 Delivery O2 Flow Rate FiO2 02/20/17 16:24 88 02/20/17 15:44 98.0 19 109/73 98 02/20/17 15:39 2.0 02/20/17 11:24 Nasal Cannula 02/18/17 18:39 28 Intake and Output 02/19/17 02/19/17 02/20/17 15:00 23:00 07:00 Intake Total 600 ml 500 ml Output Total 1800 ml 1960 ml Balance -1200 ml -1460 ml Exam GENERAL: This is a well-developed, ill-appearing, middle-aged, man, who is awake, in no distress. HEENT: Head atraumatic, normocephalic. Sclerae anicteric. Buccal mucosa pink and dry. NECK: Supple. CHEST: Rise symmetrical. Breath sounds diminished at the bases. HEART: S1, S2. ABDOMEN: Soft, bowel sounds present. EXTREMITIES: Without cyanosis. + WOUNDS Results Result Diagram: 02/20/17 0645 02/20/17 0645 Results 24 hrs Laboratory Tests Test 02/20/17 06:45 White Blood Count 5.8 Red Blood Count 3.23 L Hemoglobin 9.9 L Hematocrit 29.1 L Mean Corpuscular Volume 90.1 Mean Corpuscular Hemoglobin 30.7 Mean Corpuscular Hemoglobin Concent 34.0 Red Cell Distribution Width 19.0 H Platelet Count 250 Mean Platelet Volume 10.2 Neutrophils % 81.3 H Lymphocytes % 4.7 L Monocytes % 10.9 Eosinophils % 1.2 Basophils % 0.5 Nucleated Red Blood Cells % 0.0 Neutrophils # (Manual) 4.7 Lymphocytes # 0.3 L Monocytes # 0.6 Eosinophils # 0.1 Basophils # 0.0 Nucleated Red Blood Cells # 0.0 Sodium Level 130 L Potassium Level 3.6 Chloride Level 95 L Carbon Dioxide Level 25 Anion Gap 14 Blood Urea Nitrogen 7 Creatinine 0.95 Glucose Level 84 Calcium Level 10.2 Phosphorus Level 4.4 Magnesium Level 1.0 L Total Bilirubin 0.6 Direct Bilirubin 0.00 Indirect Bilirubin 0.6 Aspartate Amino Transf (AST/SGOT) 34 Alanine Aminotransferase (ALT/SGPT) 30 Alkaline Phosphatase 169 H Total Protein 6.9 Albumin 3.5 Globulin 3.40 H Albumin/Globulin Ratio 1.02 Medications Medications Current Medications Sodium Biphosphate/ Sodium Phosphate (Fleet Enema) 133 ml DAILY PRN [place] CONSTIPATION; Start 01/09/17 at 19:30 Nitroglycerin (Nitroglycerin (Sl Tab) 0.4 Mg) 1 tab Q5M PRN SL ANGINA; Start at 19:30 Miscellaneous Information (Pending [facility] Order For Wound Care) This patient aranda... PRN PRN XX WOUND CARE; Start 01/10/17 at 03:30 Ondansetron HCl (Zofran Inj) 4 mg Q6 IV Last administered on 02/19/17 01:04; Admin Dose 4 MG; Start 01/10/17 at 15:30 IV Flush (NS 10 ml) 10 ml PRN PRN IV IV PROTOCOL; Start 01/10/17 at 20:30 Prednisone (Prednisone) 10 mg DAILY PO Last administered on 02/20/17 10:16; Admin Dose 10 MG; Start 01/15/17 at 09:00 Ergocalciferol (Drisdol) 50,000 unit We@09 PO Last administered on 02/15/17 09: 30; Admin Dose 50,000 UNIT; Start 01/25/17 at 09:00 Calcium Carbonate (Oyster Shell Calcium) 1.25 gm BID PO Last administered on 10:16; Admin Dose 1.25 GM; Start 01/24/17 at 21:00 Pantoprazole (Protonix Tab) 40 mg DAILY@06 PO Last administered on 02/20/17 05 :33; Admin Dose 40 MG; Start 01/26/17 at 06:00 Hydromorphone HCl (Dilaudid) 1 mg Q2 PRN IV PAIN Last administered on 17:56; Admin Dose 1 MG; Start 01/25/17 at 21:00 Atenolol (Tenormin) 25 mg BID PO Last administered on 02/20/17 10:21; Admin Dose 25 MG; Start 01/30/17 at 12:00 Enoxaparin Sodium (Lovenox) 30 mg DAILY SC Last administered on 02/20/17 10:39 ; Admin Dose 30 MG; Start 02/01/17 at 16:00 Lactobacillus Acidophilus 1 each 1 each BID PO Last administered on 02/20/17 10:14; Admin Dose 1 EACH; Start 02/03/17 at 21:00 Colistimethate Sodium/Sodium Chloride (Coly-Mycin/NS) 100 ml @ 200 mls/hr Q12 IVPB Last administered on 02/20/17 11:03; Admin Dose 200 MLS/HR; Start at 21:00 Bisacodyl (Dulcolax Supp) 10 mg BID PRN [place] CONSTIPATION; Start 02/04/17 at 19: 30 Sodium Biphosphate/ Sodium Phosphate (Fleet Enema) 133 ml BID PRN [place] CONSTIPATION; Start 02/04/17 at 19:30 Sodium Biphosphate/ Sodium Phosphate (Fleet Enema) 133 ml BID PRN [place] CONSTIPATION; Start 02/09/17 at 10:00 Docusate Sodium (Colace) 100 mg BID PO Last administered on 02/20/17 10:15; Admin Dose 100 MG; Start 02/12/17 at 09:00 Magnesium Hydroxide (Milk Of Mag) 30 ml DAILY PO Last administered on 02/18/17 09:06; Admin Dose 30 ML; Start 02/12/17 at 09:00 Amoxicillin/ Clavulanate Potassium (Augmentin) 875 mg BID PO Last administered on 02/20/17 10:16; Admin Dose 875 MG; Start 02/13/17 at 21:00; Stop 02/20/17 at 23:00 Methadone HCl (Methadone) 10 mg Q6H PO Last administered on 02/20/17 16:10; Admin Dose 10 MG; Start 02/14/17 at 16:00 Ondansetron HCl (Zofran Inj) 4 mg Q6H PRN IV NAUSEA AND/OR VOMITING; Start 02/14 at 15:30 Potassium Chloride (Klor-Con 10) 30 meq BID PO Last administered on 02/20/17 10:13; Admin Dose 30 MEQ; Start 02/16/17 at 21:00 Megestrol Acetate (Megace Susp) 800 mg DAILY PO Last administered on 02/20/17 10:18; Admin Dose 800 MG; Start 02/16/17 at 18:00 Phenol (Cepastat Lozenge) 1 lozenge Q6 PRN MT SORE THROAT Last administered on 02/20/17 10:40; Admin Dose 1 LOZENGE; Start 02/19/17 at 15:30 MOIRA BIRMINGHAM MD Feb 20, 2017 18:10
--- NOTE | 2017-02-20 21:57 | PN ---
DATE: 02/20/2017 SUBJECTIVE DATA: No events overnight. No fevers. The patient is alert, feels good, looks comfortable. LABORATORY AND DIAGNOSTIC DATA: WBC 5.8, neutrophils 81.3, BUN 7, creatinine 0.95. ANTIMICROBIALS: The patient remains on Augmentin and colistin. PHYSICAL EXAMINATION: GENERAL: Well-developed, wasted middle-aged man, who is alert, in no distress. HEENT: Head, atraumatic, normocephalic. Sclerae anicteric. Buccal mucosa pink. NECK: Supple. CHEST: Chest rise symmetrical. Breath sounds clear. HEART: S1, S2. ABDOMEN: Soft, bowel sounds present. EXTREMITIES: Without cyanosis. ASSESSMENT: 1. Status post sepsis with shock. 2. Multiple infected necrotic wounds. Status post debridement with culture that grew multidrug resistant organisms. 3. Status post multidrug resistant, Klebsiella pneumoniae bacteremia with repeat blood cultures being negative. 4. Resolving pancreatitis. 5. Metastatic B-cell lymphoma. 6. History of cholecystostomy tube placement. PLAN: The patient remains stable, overall improving. Continue present care, antibiotics. Follow surgical recommendations pending debridement. Dictated By: Felicia Hdz NP /paulette/ /Document#: [id number]
--- NOTE | 2017-02-23 13:12 | QN ---
Documentation Comment [id number] TAWNY CELIS MD Feb 23, 2017 13:12
== END 2017-02-20 22:55 | disposition home health service (06) | DRG 853 ==
LOC: E/R 12:35 → TEL 19:08 → MS2 01-13 17:30 → ICU 01-14 19:45 → TEL 01-25 19:10
PROVIDERS: ADMIT Internal Medicine Nephrology; ATTEND Internal Medicine Nephrology
PROC: 02HV33Z Insertion of Infusion Device into Superior Vena Cava, Percutaneous Approach (ICD-10-PCS; principal; 2017-01-10)
PROC: 30243K1 Transfusion of Nonautologous Frozen Plasma into Central Vein, Percutaneous Approach (ICD-10-PCS; 2017-01-12)
PROC: 30243N1 Transfusion of Nonautologous Red Blood Cells into Central Vein, Percutaneous Approach (ICD-10-PCS; 2017-01-23)
PROC: 0F9430Z Drainage of Gallbladder with Drainage Device, Percutaneous Approach (ICD-10-PCS; 2017-02-02)
PROC: 0JB80ZZ Excision of Abdomen Subcutaneous Tissue and Fascia, Open Approach (ICD-10-PCS; 2017-02-09)
PROC: 0JB70ZZ Excision of Back Subcutaneous Tissue and Fascia, Open Approach (ICD-10-PCS; 2017-02-09)
PROC: 0JBN0ZZ Excision of Right Lower Leg Subcutaneous Tissue and Fascia, Open Approach (ICD-10-PCS; 2017-02-09)
DX: A41.9 Sepsis, unspecified organism (principal); J18.9 Pneumonia, unspecified organism; R65.21 Severe sepsis with septic shock; N17.9 Acute kidney failure, unspecified; D61.818 Other pancytopenia; J90 Pleural effusion, not elsewhere classified; E87.2 Acidosis; K85.90 Acute pancreatitis without necrosis or infection, unspecified; C85.18 Unspecified B-cell lymphoma, lymph nodes of multiple sites; E87.1 Hypo-osmolality and hyponatremia; N39.0 Urinary tract infection, site not specified; Z68.41 Body mass index [BMI] 40.0-44.9, adult; J98.11 Atelectasis; K81.0 Acute cholecystitis; B95.2 Enterococcus as the cause of diseases classified elsewhere; E87.6 Hypokalemia; E55.9 Vitamin D deficiency, unspecified; E83.51 Hypocalcemia; E66.01 Morbid (severe) obesity due to excess calories; E86.0 Dehydration; E20.9 Hypoparathyroidism, unspecified; L98.429 Non-pressure chronic ulcer of back with unspecified severity; L97.529 Non-pressure chronic ulcer of other part of left foot with unspecified severity; L98.499 Non-pressure chronic ulcer of skin of other sites with unspecified severity
CPT/HCPCS: 36415; 36430; 36569; 36600; 71010; 71260; 71270; 74000; 74176; 74177; 74178; 75989; 76536; 76705; 76937; 77012; 78226; 80048; 80053; 80061; 80069; 80076; 80202; 81001; 81003; 82043; 82140; 82150; 82306; 82310; 82330; 82533; 82652; 82803; 83036; 83605; 83615; 83690; 83735; 83880; 83930; 83935; 83970; 84100; 84134; 84145; 84155; 84295; 84300; 84439; 84443; 84484; 84560; 85014; 85018; 85025; 85610; 85730; 86140; 86644; 86692; 86803; 86850; 86900; 86901; 86920; 87040; 87070; 87075; 87081; 87086; 87102; 87340; 88304; 88307; 88313; 93005; 93306; 94640; 94664; 96374; 96375; 96376; 97110; 97116; 97162; 97530; A9537; C9113; J0131; J0610; J1100; J1170; J1200; J1644; J1650; J1940; J1956; J2250; J2270; J2370; J2405; J2543; J2765; J2930; J2997; J3010; J3260; J3370; J3475; J3480; J7030; J7040; J7050; J7060; J7070; J7512; P9016; P9059; Q9967